=== PATIENT | female | born 1985 | race Caucasian/White ===

== ENCOUNTER 2018-01-28 18:49 | Inpatient (IN) | END 2018-07-12 11:59 | disposition other institution (70) | DRG 130 | DX: J96.11 Chronic respiratory failure with hypoxia (principal); G93.5 Compression of brain; G93.1 Anoxic brain damage, not elsewhere classified; E23.2 Diabetes insipidus; R53.2 Functional quadriplegia; A04.72 Enterocolitis due to Clostridium difficile, not specified as recurrent; D68.59 Other primary thrombophilia; I95.9 Hypotension, unspecified; R13.10 Dysphagia, unspecified; Z93.0 Tracheostomy status; D64.9 Anemia, unspecified; S06.5X9D Traumatic subdural hemorrhage with loss of consciousness of unspecified duration, subsequent encounter; S06.6X9D Traumatic subarachnoid hemorrhage with loss of consciousness of unspecified duration, subsequent encounter; V89.2XXD Person injured in unspecified motor-vehicle accident, traffic, subsequent encounter; B96.5 Pseudomonas (aeruginosa) (mallei) (pseudomallei) as the cause of diseases classified elsewhere; G40.909 Epilepsy, unspecified, not intractable, without status epilepticus; G47.419 Narcolepsy without cataplexy; G91.0 Communicating hydrocephalus; G93.89 Other specified disorders of brain; J96.02 Acute respiratory failure with hypercapnia; S02.11 Fracture of occiput; Z93.1 Gastrostomy status; Z99.11 Dependence on respirator [ventilator] status; R00.1 Bradycardia, unspecified; S01.551A Open bite of lip, initial encounter; X58.XXXA Exposure to other specified factors, initial encounter; Y93.89 Activity, other specified; Y92.230 Patient room in hospital as the place of occurrence of the external cause; R21 Rash and other nonspecific skin eruption ==

== ENCOUNTER → 2018-02-20 | Outpatient (CLI) | payer MEDICAID | END | disposition home or self-care (01) | LOC: RAD 13:22 | PROVIDERS: ATTEND Internal Medicine | DX: I62.00 Nontraumatic subdural hemorrhage, unspecified (principal); G93.89 Other specified disorders of brain | CPT/HCPCS: 70450 ==

== ENCOUNTER 2018-04-26 23:09 | Emergency (ER) | payer MEDICAID ==
[~2018-04-26] VITALS: Ht 162.6 cm; Wt 56.2 kg
--- NOTE | 2018-04-26 23:03 | NUR ---
Pt transferred to ER with mechanical design drafter, AUTOMOTIVE PORTER and RT at bedside. No distress noted.
[2018-04-26] MEDS ORDERED: IV NORMAL SALINE 1000 ML BAG IV ONE (23:15)
--- NOTE | 2018-04-26 23:15 | NUR ---
Pt placed on [place] vent with the following settings of SIMV-14, Vt-450, PS-10, PEEP+5, FIO2-30%. Pt trached with Narda#6 DCT trach, which is in the place and secure. No s/s of respiratory distress noted. Airway care done, pt responded to physical stimuli. Pt has gauze between her lips. Resus. bag and back up trach at bedside. Vent and alarms checked and reset.
[2018-04-26] MEDS ORDERED: ATROPINE SULFATE 1 MG/10 ML DISP.SYRIN ONE (23:25)
--- NOTE | 2018-04-26 23:29 | NUR ---
PT BIB STAFF MEMBERS FROM [facility]. PT IS NON-VERBAL, VENT DEPENDENT, WHICH IS PT'S BASELINE. PER HEDY GARRIDO, PT IS BRADYCARDIC, AND HYPOTHERMIC. UPON ASSESSMENT, PT BRADYCARDIC AT 42 BPM, AND HYPOTHERMIC AT 96.4. SEPTIC WORKUP INITIATED PER PROTOCOL.
[2018-04-26] MEDS ORDERED: ATROPINE SULFATE 1 MG/10 ML DISP.SYRIN IV ONE (23:30)
[2018-04-26 23:32] LABS: BASOPHILS % (AUTO) 0.6 % (0.0-2.0); EOSINOPHILS # (AUTO) 0.2 K/uL (0.0-0.7); EOSINOPHILS % (AUTO) 3.7 % (0.0-7.0); HEMATOCRIT 28.6 % (31.2-41.9); HEMOGLOBIN 9.8 g/dL (10.9-14.3); LYMPHOCYTES # (AUTO) 1.6 K/uL (20.0-40.0); LYMPHOCYTES % (AUTO) 30.5 % (20.5-51.5); MEAN CORPUSCULAR HGB CONC 34 g/dL (32.3-35.6); MONOCYTES # (AUTO) 0.4 K/uL (2.0-10.0); MONOCYTES % (AUTO) 7.1 % (0.0-11.0); NEUTROPHILS % (AUTO) 58.1 % (38.5-71.5); PLATELET COUNT (AUTO) 164 K/uL (179-408); RED BLOOD CELL COUNT(AUTO) 3.15 MIL/uL (3.63-4.92); WHITE BLOOD COUNT (AUTO) 5.2 K/uL (3.8-11.8)
[2018-04-26 23:44] LABS: CARBON DIOXIDE 26 mmol/L (21-32); CHLORIDE 106 mmol/L (98-107); CREATININE 0.3 mg/dL (0.6-1.3); GLUCOSE 92 mg/dL (74-106); POTASSIUM 3.9 mmol/L (3.5-5.1); UREA NITROGEN, BLOOD 20 mg/dL (7-18)
[2018-04-26] MEDS ORDERED: PIPERACILLIN SODIUM/TAZOBACTAM 3.375 G in IV DEXTROSE 5% 50 ML IV ONE (23:45)
[2018-04-26] MEDS ORDERED: VANCOMYCIN IV 1,000 MG in IV DEXTROSE 5% 250 ML IV ONE (23:45)
[2018-04-26] MEDS ORDERED: PIPERACILLIN/TAZOBACTAM/D5W 50 ML IV ONE (23:53)
[2018-04-26 23:56] LABS: ALANINE AMINOTRANSFERASE 59 U/L (14-59); ALKALINE PHOSPHATASE 80 U/L (50-136); ASPARTATE AMINOTRANSFERASE 22 U/L (15-37); BILIRUBIN,DIRECT 0.1 mg/dL (0.0-0.2); BILIRUBIN,TOTAL 0.3 mg/dL (0.2-1.0); TOTAL PROTEIN, SERUM 6.6 g/dL (6.4-8.2)
[2018-04-26 23:58] LABS: *BILIRUBIN,URIN NEGATIVE (NEGATIVE); *BLOOD, URINE NEGATIVE (NEGATIVE); *CLARITY,URINE CLEAR (CLEAR); *COLOR,URINE YELLOW (YELLOW); *KETONES,URINE NEGATIVE (NEGATIVE); *PROTEIN,URINE NEGATIVE (NEGATIVE); *UROBILINOGEN,URINE 0.2 E.U./dl (NORMAL); LEUKOCYTE ESTERASE ,URINE NEGATIVE (NEGATIVE); NITRITE, URINE NEGATIVE (NEGATIVE); UGLUCOSE NEGATIVE (NEGATIVE)
[2018-04-26] MEDS ORDERED: NOREPINEPHRINE BITARTRATE 4 MG/4 ML VIAL IV ONE (23:59)
[2018-04-27] MEDS ORDERED: NOREPINEPHRINE BITARTRATE 8 MG in IV DEXTROSE 5% 500 ML IV ONE ×2
[2018-04-27 00:11] LABS: RBC,URINE NONE SEEN /HPF (0-3); WBC,URINE 0-3 /HPF (0-3)
--- NOTE | 2018-04-27 00:11 | NUR ---
ER SPEAKING W/ ATTENDING MD, DR. BELL.
--- NOTE | 2018-04-27 00:11 | NUR ---
PER ATTENDING MD, DR. BELL, THIS IS PT'S BASELINE. PER ER MD, DR. RIVAS'S ORDER, LEVOPHED TURNED OFF. LEVOPHED INFUSION VIA 20 G L FOREARM D/C'ED.
[2018-04-27 00:12] LABS: BACTERIA,URINE NONE SEEN /HPF (NONE SEEN); SQUAMOUS EPITHELIAL CELL,UR FEW /HPF (NONE SEEN); URINE AMORPHOUS PHOSPHATES FEW /HPF
--- NOTE | 2018-04-27 00:13 | NUR ---
PER ER MD'S ORDERS, ALL IV MEDICATIONS (ZOSYN, VANCOMYCIN, LEVOPHED) ALL D/C.
--- NOTE | 2018-04-27 00:14 | NUR ---
PER DR. BELL AND DR. RIVAS, PT WILL BE D/C BACK TO [facility].
--- NOTE | 2018-04-27 00:18 | NUR ---
CONTACTED HEDY GARRIDO, FROM [facility] TO INFORM PT WILL BE TRANSFERRED BACK TO [facility] PER DR. BELL AND DR. RIVAS'S ORDERS.
--- NOTE | 2018-04-27 00:43 | NUR ---
20 G L FOREARM & 20 G R FOREARM REMOVED PRIOR TO TRANSFER BACK TO [facility]. PT TRANS TO [facility] BY HEDY GARRIDO, A STAFF SOLE FILLER AND RT ON VENT. VSS. ALL BELONGINGS W/ PT.
--- NOTE | 2018-04-27 00:44 | NUR ---
Patient discharged to [facility] in stable conditon. Written and verbal after care instructions given. Patient verbalizes understanding of instructions.
[2018-04-27 00:45] VITALS: BP 111/64
== END 2018-04-27 00:46 | disposition home or self-care (01) ==
LOC: ER 23:12
DX: A41.9 Sepsis, unspecified organism (principal); R00.1 Bradycardia, unspecified; I95.9 Hypotension, unspecified
CPT/HCPCS: 36415; 70030-TC; 71045; 83605; 85025; 85730; 87040; 87086; 93005; A4663; J0461; J2543; J3490; J7030; J7060

== ENCOUNTER 2018-07-13 | Inpatient (IN) | payer MEDICAID ==
[~2018-07-13] VITALS: Ht 162.6 cm; Wt 61.2 kg
[~2018-07-13] MED LIST: ACET-2154 GT; ALBU2.5V38 IH; BACL10TA GT; BISA-79 RC; CHOL10002 GT; DEXT15DR6 EACHEYE; FOLI1TAB16 GT; HEPA100D33 SQ; HYDR1SOL MC; IPRA0.2S48 IH; LACT1CAP69 GT; LEVE500T20 GT; LORA0.5T48 GT; MENT113O TOP; OMEP20TA5 GT; THIA100T13 GT; VITS42.53 TP; ZINC57OI3 TP
[2018-07-14] MEDS: COD LIVER OIL/ZINC OXIDE OINT 113 GM TUBE TP SCH ×2 (08:30→20:48)
[2018-07-14] MEDS: BACLOFEN 10 MG TABLET GT SCH ×2 (08:30→20:47)
[2018-07-14] MEDS: Z GUARD REMEDY PASTE 57 GM TUBE TOP SCH ×2 (08:30→20:48)
[2018-07-14] MEDS: VITAMINS A AND D OINT TP SCH ×2 (08:30→20:49)
[2018-07-14] MEDS: ACIDOPHILUS/BULGARICUS CHEW TAB GT SCH ×2 (08:30→20:46)
[2018-07-14] MEDS: LEVETIRACETAM 500 MG/5 ML LIQUID UDC GT SCH ×2 (08:30→20:47)
[2018-07-14] MEDS: DESMOPRESSIN 0.1 MG TABLET GT SCH (08:30)
[2018-07-14] MEDS: HEPARIN SODIUM,PORCINE 5,000 UNITS/ML VIAL SQ SCH ×2 (08:30→20:52)
[2018-07-14] MEDS: HYDROGEN PEROXIDE 3% 118 ML BOTTLE TP SCH ×2 (08:30→20:49)
[2018-07-14] MEDS: KETOCONAZOLE 2% SHAMPOO 120 ML BOTTLE TP SCH (08:30)
[2018-07-14] MEDS ORDERED: POLYVINYL ALCOHOL OPHT DROPS 15 ML BOTTLE EACHEYE PRN (09:15)
[2018-07-14] MEDS ORDERED: HYDROGEN PEROXIDE 3% 118 ML BOTTLE TP PRN (09:15)
[2018-07-14] MEDS ORDERED: IPRATROPIUM BROMIDE 0.5 MG/2.5 ML NEBU NEB PRN (09:15)
[2018-07-14] MEDS ORDERED: ACETAMINOPHEN 650 MG/20 ML UDC- SA PATIENTS-PAIN ONLY GT PRN (09:15)
[2018-07-14] MEDS ORDERED: ALBUTEROL SULFATE 2.5 MG/ 0.5 ML NEBU NEB PRN (09:15)
[2018-07-14 14:12] VITALS: BP 107/57
[2018-07-14] MEDS: THIAMINE HCL 100 MG TABLET GT SCH (20:48)
[2018-07-14] MEDS: CHOLECALCIFEROL 1,000 UNIT TABLET GT SCH (20:48)
[2018-07-14] MEDS: FOLIC ACID 1 MG TABLET GT SCH (20:53)
[2018-07-14 21:16] VITALS: BP 96/51
[2018-07-15] MEDS: OMEPRAZOLE 20 MG CAPSULE.DR GT SCH (06:06)
[2018-07-15] MEDS: VITAL AF 1.2 1,000 ML LIQUID GT PRN (06:58)
[2018-07-15] MEDS: DESMOPRESSIN 0.1 MG TABLET GT SCH (08:51)
[2018-07-15] MEDS: ACIDOPHILUS/BULGARICUS CHEW TAB GT SCH ×2 (08:52→20:50)
[2018-07-15] MEDS: VITAMINS A AND D OINT TP SCH ×2 (08:53→20:53)
[2018-07-15] MEDS: COD LIVER OIL/ZINC OXIDE OINT 113 GM TUBE TP SCH ×2 (08:53→20:52)
[2018-07-15] MEDS: Z GUARD REMEDY PASTE 57 GM TUBE TOP SCH ×2 (08:53→20:52)
[2018-07-15] MEDS: HYDROGEN PEROXIDE 3% 118 ML BOTTLE TP SCH ×2 (08:53→20:53)
[2018-07-15] MEDS: BACLOFEN 10 MG TABLET GT SCH ×2 (08:53→20:50)
[2018-07-15] MEDS: LEVETIRACETAM 500 MG/5 ML LIQUID UDC GT SCH ×2 (08:53→20:50)
[2018-07-15] MEDS: HEPARIN SODIUM,PORCINE 5,000 UNITS/ML VIAL SQ SCH ×2 (08:54→21:57)
[2018-07-15 11:11] VITALS: BP 101/59
[2018-07-15 20:48] VITALS: BP 100/44
[2018-07-15] MEDS: FOLIC ACID 1 MG TABLET GT SCH (20:50)
[2018-07-15] MEDS: THIAMINE HCL 100 MG TABLET GT SCH (20:51)
[2018-07-15] MEDS: CHOLECALCIFEROL 1,000 UNIT TABLET GT SCH (20:51)
[2018-07-16] MEDS: VITAL AF 1.2 1,000 ML LIQUID GT PRN (01:08)
[2018-07-16] MEDS: OMEPRAZOLE 20 MG CAPSULE.DR GT SCH (05:44)
[2018-07-16] MEDS: DESMOPRESSIN 0.1 MG TABLET GT SCH (08:39)
[2018-07-16] MEDS: LEVETIRACETAM 500 MG/5 ML LIQUID UDC GT SCH ×2 (08:39→20:31)
[2018-07-16] MEDS: ACIDOPHILUS/BULGARICUS CHEW TAB GT SCH ×2 (08:39→20:31)
[2018-07-16] MEDS: COD LIVER OIL/ZINC OXIDE OINT 113 GM TUBE TP SCH ×2 (08:40→20:32)
[2018-07-16] MEDS: Z GUARD REMEDY PASTE 57 GM TUBE TOP SCH ×2 (08:40→20:32)
[2018-07-16] MEDS: HEPARIN SODIUM,PORCINE 5,000 UNITS/ML VIAL SQ SCH ×2 (08:40→20:32)
[2018-07-16] MEDS: BACLOFEN 10 MG TABLET GT SCH ×2 (08:40→20:31)
[2018-07-16] MEDS: HYDROGEN PEROXIDE 3% 118 ML BOTTLE TP SCH ×2 (08:41→20:33)
[2018-07-16] MEDS: VITAMINS A AND D OINT TP SCH ×2 (08:41→20:33)
[2018-07-16 11:09] VITALS: BP 110/54
[2018-07-16 20:11] VITALS: BP 106/61
[2018-07-16] MEDS: FOLIC ACID 1 MG TABLET GT SCH (20:31)
[2018-07-16] MEDS: THIAMINE HCL 100 MG TABLET GT SCH (20:31)
[2018-07-16] MEDS: CHOLECALCIFEROL 1,000 UNIT TABLET GT SCH (20:31)
[2018-07-17] MEDS: VITAL AF 1.2 1,000 ML LIQUID GT PRN ×2 (00:34→19:52)
[2018-07-17] MEDS: OMEPRAZOLE 20 MG CAPSULE.DR GT SCH (05:43)
[2018-07-17 08:00] VITALS: BP 124/55
[2018-07-17] MEDS: ACIDOPHILUS/BULGARICUS CHEW TAB GT SCH ×2 (08:29→20:06)
[2018-07-17] MEDS: LEVETIRACETAM 500 MG/5 ML LIQUID UDC GT SCH ×2 (08:29→20:06)
[2018-07-17] MEDS: DESMOPRESSIN 0.1 MG TABLET GT SCH (08:29)
[2018-07-17] MEDS: BACLOFEN 10 MG TABLET GT SCH ×2 (08:30→20:06)
[2018-07-17] MEDS: COD LIVER OIL/ZINC OXIDE OINT 113 GM TUBE TP SCH ×2 (08:36→20:06)
[2018-07-17] MEDS: Z GUARD REMEDY PASTE 57 GM TUBE TOP SCH ×2 (08:36→20:06)
[2018-07-17] MEDS: HYDROGEN PEROXIDE 3% 118 ML BOTTLE TP SCH ×2 (08:36→20:06)
[2018-07-17] MEDS: HEPARIN SODIUM,PORCINE 5,000 UNITS/ML VIAL SQ SCH ×2 (08:36→21:40)
[2018-07-17] MEDS: VITAMINS A AND D OINT TP SCH ×2 (08:37→20:06)
[2018-07-17] MEDS: KETOCONAZOLE 2% SHAMPOO 120 ML BOTTLE TP SCH (08:37)
[2018-07-17] MEDS: FOLIC ACID 1 MG TABLET GT SCH (20:06)
[2018-07-17] MEDS: THIAMINE HCL 100 MG TABLET GT SCH (20:06)
[2018-07-17] MEDS: CHOLECALCIFEROL 1,000 UNIT TABLET GT SCH (20:06)
[2018-07-17 20:39] VITALS: BP 100/57
[2018-07-18] MEDS: OMEPRAZOLE 20 MG CAPSULE.DR GT SCH (05:42)
[2018-07-18 08:00] VITALS: BP 104/57
[2018-07-18] MEDS: HEPARIN SODIUM,PORCINE 5,000 UNITS/ML VIAL SQ SCH ×2 (09:16→21:41)
[2018-07-18] MEDS: DESMOPRESSIN 0.1 MG TABLET GT SCH (09:33)
[2018-07-18] MEDS: ACIDOPHILUS/BULGARICUS CHEW TAB GT SCH ×2 (09:34→21:37)
[2018-07-18] MEDS: COD LIVER OIL/ZINC OXIDE OINT 113 GM TUBE TP SCH ×2 (09:35→21:41)
[2018-07-18] MEDS: VITAMINS A AND D OINT TP SCH ×2 (09:35→21:41)
[2018-07-18] MEDS: Z GUARD REMEDY PASTE 57 GM TUBE TOP SCH ×2 (09:35→21:41)
[2018-07-18] MEDS: BACLOFEN 10 MG TABLET GT SCH ×2 (09:35→21:38)
[2018-07-18] MEDS: LEVETIRACETAM 500 MG/5 ML LIQUID UDC GT SCH ×2 (09:35→21:37)
[2018-07-18] MEDS: HYDROGEN PEROXIDE 3% 118 ML BOTTLE TP SCH ×2 (09:35→21:41)
[2018-07-18] MEDS: VITAL AF 1.2 1,000 ML LIQUID GT PRN (16:21)
[2018-07-18 20:37] VITALS: BP 108/63
[2018-07-18] MEDS: FOLIC ACID 1 MG TABLET GT SCH (21:37)
[2018-07-18] MEDS: THIAMINE HCL 100 MG TABLET GT SCH (21:38)
[2018-07-18] MEDS: CHOLECALCIFEROL 1,000 UNIT TABLET GT SCH (21:38)
[2018-07-19] MEDS: OMEPRAZOLE 20 MG CAPSULE.DR GT SCH (05:21)
[2018-07-19] MEDS: VITAL AF 1.2 1,000 ML LIQUID GT PRN (05:50)
[2018-07-19] MEDS: LEVETIRACETAM 500 MG/5 ML LIQUID UDC GT SCH ×2 (09:12→21:00)
[2018-07-19] MEDS: DESMOPRESSIN 0.1 MG TABLET GT SCH (09:12)
[2018-07-19] MEDS: ACIDOPHILUS/BULGARICUS CHEW TAB GT SCH ×2 (09:12→21:00)
[2018-07-19] MEDS: HEPARIN SODIUM,PORCINE 5,000 UNITS/ML VIAL SQ SCH ×2 (09:13→21:00)
[2018-07-19] MEDS: BACLOFEN 10 MG TABLET GT SCH ×2 (09:13→21:00)
[2018-07-19 09:15] VITALS: BP 102/55
[2018-07-19] MEDS: COD LIVER OIL/ZINC OXIDE OINT 113 GM TUBE TP SCH ×2 (09:15→21:00)
[2018-07-19] MEDS: Z GUARD REMEDY PASTE 57 GM TUBE TOP SCH ×2 (09:15→21:00)
[2018-07-19] MEDS: VITAMINS A AND D OINT TP SCH ×2 (09:15→21:00)
[2018-07-19] MEDS: HYDROGEN PEROXIDE 3% 118 ML BOTTLE TP SCH ×2 (09:15→21:00)
[2018-07-19] MEDS: FOLIC ACID 1 MG TABLET GT SCH (21:00)
[2018-07-19] MEDS: CHOLECALCIFEROL 1,000 UNIT TABLET GT SCH (21:00)
[2018-07-19] MEDS: THIAMINE HCL 100 MG TABLET GT SCH (21:00)
[2018-07-19 21:19] VITALS: BP 96/50
[2018-07-20] MEDS: OMEPRAZOLE 20 MG CAPSULE.DR GT SCH (06:48)
[2018-07-20] MEDS: DESMOPRESSIN 0.1 MG TABLET GT SCH (08:49)
[2018-07-20] MEDS: BACLOFEN 10 MG TABLET GT SCH ×2 (08:49→20:31)
[2018-07-20] MEDS: LEVETIRACETAM 500 MG/5 ML LIQUID UDC GT SCH ×2 (08:49→20:31)
[2018-07-20] MEDS: ACIDOPHILUS/BULGARICUS CHEW TAB GT SCH ×2 (08:49→20:30)
[2018-07-20] MEDS: COD LIVER OIL/ZINC OXIDE OINT 113 GM TUBE TP SCH ×2 (08:50→20:33)
[2018-07-20] MEDS: HYDROGEN PEROXIDE 3% 118 ML BOTTLE TP SCH ×2 (08:50→20:33)
[2018-07-20] MEDS: VITAMINS A AND D OINT TP SCH ×2 (08:50→20:34)
[2018-07-20] MEDS: Z GUARD REMEDY PASTE 57 GM TUBE TOP SCH ×2 (08:50→20:33)
[2018-07-20] MEDS: HEPARIN SODIUM,PORCINE 5,000 UNITS/ML VIAL SQ SCH ×2 (08:51→20:33)
[2018-07-20 11:20] VITALS: BP 115/58
[2018-07-20 19:50] VITALS: BP 106/51
[2018-07-20] MEDS: THIAMINE HCL 100 MG TABLET GT SCH (20:31)
[2018-07-20] MEDS: FOLIC ACID 1 MG TABLET GT SCH (20:31)
[2018-07-20] MEDS: CHOLECALCIFEROL 1,000 UNIT TABLET GT SCH (20:32)
[2018-07-21] MEDS: VITAL AF 1.2 1,000 ML LIQUID GT PRN ×2 (00:35→21:00)
[2018-07-21] MEDS: OMEPRAZOLE 20 MG CAPSULE.DR GT SCH (05:28)
[2018-07-21] MEDS: DESMOPRESSIN 0.1 MG TABLET GT SCH (08:42)
[2018-07-21] MEDS: ACIDOPHILUS/BULGARICUS CHEW TAB GT SCH ×2 (08:43→20:48)
[2018-07-21] MEDS: LEVETIRACETAM 500 MG/5 ML LIQUID UDC GT SCH ×2 (08:44→20:50)
[2018-07-21] MEDS: Z GUARD REMEDY PASTE 57 GM TUBE TOP SCH ×2 (08:44→20:53)
[2018-07-21] MEDS: HEPARIN SODIUM,PORCINE 5,000 UNITS/ML VIAL SQ SCH ×2 (08:44→20:53)
[2018-07-21] MEDS: BACLOFEN 10 MG TABLET GT SCH ×2 (08:44→20:50)
[2018-07-21] MEDS: HYDROGEN PEROXIDE 3% 118 ML BOTTLE TP SCH ×2 (08:45→20:53)
[2018-07-21] MEDS: COD LIVER OIL/ZINC OXIDE OINT 113 GM TUBE TP SCH ×2 (08:45→20:53)
[2018-07-21] MEDS: VITAMINS A AND D OINT TP SCH ×2 (08:45→20:53)
[2018-07-21] MEDS: KETOCONAZOLE 2% SHAMPOO 120 ML BOTTLE TP SCH (08:45)
[2018-07-21 09:03] VITALS: BP 95/63
[2018-07-21 20:32] VITALS: BP 99/56
[2018-07-21] MEDS: FOLIC ACID 1 MG TABLET GT SCH (20:49)
[2018-07-21] MEDS: THIAMINE HCL 100 MG TABLET GT SCH (20:50)
[2018-07-21] MEDS: CHOLECALCIFEROL 1,000 UNIT TABLET GT SCH (20:51)
[2018-07-22] MEDS: OMEPRAZOLE 20 MG CAPSULE.DR GT SCH (05:24)
[2018-07-22 08:56] VITALS: BP 102/60
[2018-07-22] MEDS: DESMOPRESSIN 0.1 MG TABLET GT SCH (08:58)
[2018-07-22] MEDS: BACLOFEN 10 MG TABLET GT SCH ×2 (08:58→20:31)
[2018-07-22] MEDS: ACIDOPHILUS/BULGARICUS CHEW TAB GT SCH ×2 (08:58→20:29)
[2018-07-22] MEDS: LEVETIRACETAM 500 MG/5 ML LIQUID UDC GT SCH ×2 (08:58→20:31)
[2018-07-22] MEDS: Z GUARD REMEDY PASTE 57 GM TUBE TOP SCH ×2 (08:59→20:34)
[2018-07-22] MEDS: COD LIVER OIL/ZINC OXIDE OINT 113 GM TUBE TP SCH ×2 (08:59→20:34)
[2018-07-22] MEDS: HYDROGEN PEROXIDE 3% 118 ML BOTTLE TP SCH ×2 (08:59→20:35)
[2018-07-22] MEDS: HEPARIN SODIUM,PORCINE 5,000 UNITS/ML VIAL SQ SCH ×2 (08:59→20:34)
[2018-07-22] MEDS: VITAMINS A AND D OINT TP SCH ×2 (08:59→20:35)
[2018-07-22] MEDS: VITAL AF 1.2 1,000 ML LIQUID GT PRN (16:47)
[2018-07-22 20:00] VITALS: BP 95/51
[2018-07-22] MEDS: FOLIC ACID 1 MG TABLET GT SCH (20:29)
[2018-07-22] MEDS: CHOLECALCIFEROL 1,000 UNIT TABLET GT SCH (20:31)
[2018-07-22] MEDS: THIAMINE HCL 100 MG TABLET GT SCH (20:31)
[2018-07-23] MEDS: OMEPRAZOLE 20 MG CAPSULE.DR GT SCH (05:23)
[2018-07-23 08:01] VITALS: BP 105/60
[2018-07-23] MEDS: DESMOPRESSIN 0.1 MG TABLET GT SCH (08:17)
[2018-07-23] MEDS: ACIDOPHILUS/BULGARICUS CHEW TAB GT SCH ×2 (08:18→21:10)
[2018-07-23] MEDS: LEVETIRACETAM 500 MG/5 ML LIQUID UDC GT SCH ×2 (08:18→21:10)
[2018-07-23] MEDS: BACLOFEN 10 MG TABLET GT SCH ×2 (08:19→21:10)
[2018-07-23] MEDS: HEPARIN SODIUM,PORCINE 5,000 UNITS/ML VIAL SQ SCH ×2 (08:20→21:21)
[2018-07-23] MEDS: Z GUARD REMEDY PASTE 57 GM TUBE TOP SCH ×2 (08:21→21:11)
[2018-07-23] MEDS: COD LIVER OIL/ZINC OXIDE OINT 113 GM TUBE TP SCH ×2 (08:23→21:11)
[2018-07-23] MEDS: HYDROGEN PEROXIDE 3% 118 ML BOTTLE TP SCH ×2 (08:23→21:11)
[2018-07-23] MEDS: VITAMINS A AND D OINT TP SCH ×2 (08:23→21:11)
[2018-07-23 20:00] VITALS: BP 91/46
[2018-07-23] MEDS: THIAMINE HCL 100 MG TABLET GT SCH (21:10)
[2018-07-23] MEDS: FOLIC ACID 1 MG TABLET GT SCH (21:10)
[2018-07-23] MEDS: CHOLECALCIFEROL 1,000 UNIT TABLET GT SCH (21:10)
[2018-07-24] MEDS: VITAL AF 1.2 1,000 ML LIQUID GT PRN ×2 (03:42→20:30)
[2018-07-24] MEDS: OMEPRAZOLE 20 MG CAPSULE.DR GT SCH (05:39)
[2018-07-24 08:01] VITALS: BP 107/68
[2018-07-24] MEDS: ACIDOPHILUS/BULGARICUS CHEW TAB GT SCH ×2 (09:42→20:19)
[2018-07-24] MEDS: LEVETIRACETAM 500 MG/5 ML LIQUID UDC GT SCH ×2 (09:42→20:19)
[2018-07-24] MEDS: DESMOPRESSIN 0.1 MG TABLET GT SCH (09:42)
[2018-07-24] MEDS: BACLOFEN 10 MG TABLET GT SCH ×2 (09:42→20:20)
[2018-07-24] MEDS: Z GUARD REMEDY PASTE 57 GM TUBE TOP SCH ×2 (09:42→20:21)
[2018-07-24] MEDS: COD LIVER OIL/ZINC OXIDE OINT 113 GM TUBE TP SCH ×2 (09:43→20:21)
[2018-07-24] MEDS: KETOCONAZOLE 2% SHAMPOO 120 ML BOTTLE TP SCH (09:43)
[2018-07-24] MEDS: HYDROGEN PEROXIDE 3% 118 ML BOTTLE TP SCH ×2 (09:43→20:21)
[2018-07-24] MEDS: VITAMINS A AND D OINT TP SCH ×2 (09:43→20:21)
[2018-07-24] MEDS: HEPARIN SODIUM,PORCINE 5,000 UNITS/ML VIAL SQ SCH ×2 (09:48→20:21)
[2018-07-24 20:00] VITALS: BP 105/49
[2018-07-24] MEDS: FOLIC ACID 1 MG TABLET GT SCH (20:19)
[2018-07-24] MEDS: THIAMINE HCL 100 MG TABLET GT SCH (20:20)
[2018-07-24] MEDS: CHOLECALCIFEROL 1,000 UNIT TABLET GT SCH (20:20)
[2018-07-25] MEDS: OMEPRAZOLE 20 MG CAPSULE.DR GT SCH (06:22)
[2018-07-25 08:00] VITALS: BP 106/58
[2018-07-25] MEDS: DESMOPRESSIN 0.1 MG TABLET GT SCH (08:56)
[2018-07-25] MEDS: ACIDOPHILUS/BULGARICUS CHEW TAB GT SCH ×2 (08:56→20:51)
[2018-07-25] MEDS: Z GUARD REMEDY PASTE 57 GM TUBE TOP SCH ×2 (08:56→20:52)
[2018-07-25] MEDS: HYDROGEN PEROXIDE 3% 118 ML BOTTLE TP SCH ×2 (08:56→20:52)
[2018-07-25] MEDS: VITAMINS A AND D OINT TP SCH ×2 (08:56→20:52)
[2018-07-25] MEDS: HEPARIN SODIUM,PORCINE 5,000 UNITS/ML VIAL SQ SCH ×2 (08:56→21:00)
[2018-07-25] MEDS: COD LIVER OIL/ZINC OXIDE OINT 113 GM TUBE TP SCH ×2 (08:56→20:52)
[2018-07-25] MEDS: LEVETIRACETAM 500 MG/5 ML LIQUID UDC GT SCH ×2 (08:56→20:51)
[2018-07-25] MEDS: BACLOFEN 20 MG TABLET GT SCH ×2 (14:22→21:04)
[2018-07-25 20:22] VITALS: BP 100/61
[2018-07-25] MEDS: THIAMINE HCL 100 MG TABLET GT SCH (20:51)
[2018-07-25] MEDS: FOLIC ACID 1 MG TABLET GT SCH (20:51)
[2018-07-25] MEDS: CHOLECALCIFEROL 1,000 UNIT TABLET GT SCH (20:51)
[2018-07-26] MEDS: OMEPRAZOLE 20 MG CAPSULE.DR GT SCH (06:50)
[2018-07-26] MEDS: BACLOFEN 20 MG TABLET GT SCH ×3 (06:50→21:24)
[2018-07-26] MEDS: DESMOPRESSIN 0.1 MG TABLET GT SCH (09:10)
[2018-07-26] MEDS: ACIDOPHILUS/BULGARICUS CHEW TAB GT SCH ×2 (09:11→20:23)
[2018-07-26] MEDS: LEVETIRACETAM 500 MG/5 ML LIQUID UDC GT SCH ×2 (09:12→20:24)
[2018-07-26] MEDS: Z GUARD REMEDY PASTE 57 GM TUBE TOP SCH ×2 (09:14→20:28)
[2018-07-26] MEDS: HYDROGEN PEROXIDE 3% 118 ML BOTTLE TP SCH ×2 (09:14→20:28)
[2018-07-26] MEDS: COD LIVER OIL/ZINC OXIDE OINT 113 GM TUBE TP SCH ×2 (09:14→20:28)
[2018-07-26] MEDS: VITAMINS A AND D OINT TP SCH ×2 (09:14→20:28)
[2018-07-26] MEDS: HEPARIN SODIUM,PORCINE 5,000 UNITS/ML VIAL SQ SCH ×2 (09:14→20:27)
[2018-07-26 10:02] VITALS: BP 96/47
[2018-07-26] MEDS: FOLIC ACID 1 MG TABLET GT SCH (20:24)
[2018-07-26 20:26] VITALS: BP 98/44
[2018-07-26] MEDS: THIAMINE HCL 100 MG TABLET GT SCH (20:26)
[2018-07-26] MEDS: CHOLECALCIFEROL 1,000 UNIT TABLET GT SCH (20:26)
[2018-07-27] VITALS (7 sets, daily range): BP systolic 88–108; BP diastolic 43–55
[2018-07-27] MEDS ORDERED: IV NORMAL SALINE 500 ML BAG IV ONE (02:30)
[2018-07-27] MEDS: BACLOFEN 20 MG TABLET GT SCH (05:32)
[2018-07-27] MEDS: OMEPRAZOLE 20 MG CAPSULE.DR GT SCH (05:32)
[2018-07-27] MEDS: VITAL AF 1.2 1,000 ML LIQUID GT PRN (06:34)
[2018-07-27 07:15] LABS: BASOPHILS % (AUTO) 0.7 % (0.0-2.0); EOSINOPHILS # (AUTO) 0.2 K/uL (0.0-0.7); EOSINOPHILS % (AUTO) 3.8 % (0.0-7.0); HEMATOCRIT 24.6 % (31.2-41.9); HEMOGLOBIN 8.7 g/dL (10.9-14.3); LYMPHOCYTES # (AUTO) 1.9 K/uL (20.0-40.0); LYMPHOCYTES % (AUTO) 39.8 % (20.5-51.5); MEAN CORPUSCULAR HEMOGLOBIN 33.7 uug (24.7-32.8); MEAN CORPUSCULAR HGB CONC 35 g/dL (32.3-35.6); MEAN CORPUSCULAR VOLUME 95.5 fL (75.5-95.3); MONOCYTES # (AUTO) 0.4 K/uL (2.0-10.0); MONOCYTES % (AUTO) 7.5 % (0.0-11.0); NEUTROPHILS # (AUTO) 2.3 K/uL (1.8-8.9); NEUTROPHILS % (AUTO) 48.2 % (38.5-71.5); PLATELET COUNT (AUTO) 203 K/uL (179-408); RED BLOOD CELL COUNT(AUTO) 2.58 MIL/uL (3.63-4.92); WHITE BLOOD COUNT (AUTO) 4.7 K/uL (3.8-11.8)
[2018-07-27 07:38] LABS: BILIRUBIN,TOTAL 0.4 mg/dL (0.2-1.0); CREATININE 0.6 mg/dL (0.6-1.3); MAGNESIUM 1.8 mg/dL (1.8-2.4); PHOSPHOROUS 3.8 mg/dL (2.5-4.9); POTASSIUM 3.9 mmol/L (3.5-5.1)
[2018-07-27] MEDS: ACIDOPHILUS/BULGARICUS CHEW TAB GT SCH ×2 (08:46→21:34)
[2018-07-27] MEDS: LEVETIRACETAM 500 MG/5 ML LIQUID UDC GT SCH ×2 (08:46→21:34)
[2018-07-27] MEDS: DESMOPRESSIN 0.1 MG TABLET GT SCH (08:46)
[2018-07-27] MEDS: HYDROGEN PEROXIDE 3% 118 ML BOTTLE TP SCH ×2 (08:48→21:35)
[2018-07-27] MEDS: COD LIVER OIL/ZINC OXIDE OINT 113 GM TUBE TP SCH ×2 (08:48→21:35)
[2018-07-27] MEDS: HEPARIN SODIUM,PORCINE 5,000 UNITS/ML VIAL SQ SCH ×2 (08:48→21:35)
[2018-07-27] MEDS: Z GUARD REMEDY PASTE 57 GM TUBE TOP SCH ×2 (08:48→21:35)
[2018-07-27] MEDS: VITAMINS A AND D OINT TP SCH ×2 (08:48→21:36)
[2018-07-27] MEDS: CHOLECALCIFEROL 1,000 UNIT TABLET GT SCH (21:34)
[2018-07-27] MEDS: FOLIC ACID 1 MG TABLET GT SCH (21:34)
[2018-07-27] MEDS: THIAMINE HCL 100 MG TABLET GT SCH (21:34)
[2018-07-28] MEDS: VITAL AF 1.2 1,000 ML LIQUID GT PRN ×2 (00:13→21:41)
[2018-07-28] MEDS: OMEPRAZOLE 20 MG CAPSULE.DR GT SCH (05:50)
[2018-07-28] MEDS: DESMOPRESSIN 0.1 MG TABLET GT SCH (08:15)
[2018-07-28] MEDS: LEVETIRACETAM 500 MG/5 ML LIQUID UDC GT SCH ×2 (08:15→21:40)
[2018-07-28] MEDS: HEPARIN SODIUM,PORCINE 5,000 UNITS/ML VIAL SQ SCH ×2 (08:15→21:41)
[2018-07-28] MEDS: ACIDOPHILUS/BULGARICUS CHEW TAB GT SCH ×2 (08:15→21:40)
[2018-07-28] MEDS: VITAMINS A AND D OINT TP SCH ×2 (08:17→21:41)
[2018-07-28] MEDS: HYDROGEN PEROXIDE 3% 118 ML BOTTLE TP SCH ×2 (08:17→21:41)
[2018-07-28] MEDS: Z GUARD REMEDY PASTE 57 GM TUBE TOP SCH ×2 (08:17→21:41)
[2018-07-28] MEDS: KETOCONAZOLE 2% SHAMPOO 120 ML BOTTLE TP SCH (08:17)
[2018-07-28] MEDS: COD LIVER OIL/ZINC OXIDE OINT 113 GM TUBE TP SCH ×2 (08:17→21:41)
[2018-07-28 11:25] VITALS: BP 98/40
[2018-07-28] MEDS: BISACODYL 10 MG SUPP.RECT RC PRN (18:12)
[2018-07-28 20:28] VITALS: BP 102/53
[2018-07-28] MEDS: FOLIC ACID 1 MG TABLET GT SCH (21:40)
[2018-07-28] MEDS: CHOLECALCIFEROL 1,000 UNIT TABLET GT SCH (21:40)
[2018-07-28] MEDS: THIAMINE HCL 100 MG TABLET GT SCH (21:40)
[2018-07-29] MEDS: OMEPRAZOLE 20 MG CAPSULE.DR GT SCH (05:51)
[2018-07-29] MEDS: BACLOFEN 20 MG TABLET GT SCH ×3 (05:51→22:11)
[2018-07-29] MEDS: ACIDOPHILUS/BULGARICUS CHEW TAB GT SCH ×2 (08:04→21:24)
[2018-07-29] MEDS: HEPARIN SODIUM,PORCINE 5,000 UNITS/ML VIAL SQ SCH ×2 (08:04→21:31)
[2018-07-29] MEDS: DESMOPRESSIN 0.1 MG TABLET GT SCH (08:04)
[2018-07-29] MEDS: LEVETIRACETAM 500 MG/5 ML LIQUID UDC GT SCH ×2 (08:05→21:25)
[2018-07-29] MEDS: COD LIVER OIL/ZINC OXIDE OINT 113 GM TUBE TP SCH ×2 (08:07→21:31)
[2018-07-29] MEDS: HYDROGEN PEROXIDE 3% 118 ML BOTTLE TP SCH ×2 (08:07→21:31)
[2018-07-29] MEDS: VITAMINS A AND D OINT TP SCH ×2 (08:07→21:31)
[2018-07-29] MEDS: Z GUARD REMEDY PASTE 57 GM TUBE TOP SCH ×2 (08:07→21:31)
[2018-07-29 10:36] VITALS: BP 97/59
[2018-07-29] MEDS: VITAL AF 1.2 1,000 ML LIQUID GT PRN (16:56)
[2018-07-29 20:32] VITALS: BP 95/45
[2018-07-29] MEDS: FOLIC ACID 1 MG TABLET GT SCH (21:24)
[2018-07-29] MEDS: THIAMINE HCL 100 MG TABLET GT SCH (21:26)
[2018-07-29] MEDS: CHOLECALCIFEROL 1,000 UNIT TABLET GT SCH (21:26)
[2018-07-30] MEDS: BACLOFEN 20 MG TABLET GT SCH ×3 (05:28→20:49)
[2018-07-30] MEDS: OMEPRAZOLE 20 MG CAPSULE.DR GT SCH (05:28)
[2018-07-30] MEDS: DESMOPRESSIN 0.1 MG TABLET GT SCH (08:20)
[2018-07-30] MEDS: ACIDOPHILUS/BULGARICUS CHEW TAB GT SCH ×2 (08:20→20:49)
[2018-07-30] MEDS: Z GUARD REMEDY PASTE 57 GM TUBE TOP SCH ×2 (08:21→20:49)
[2018-07-30] MEDS: HYDROGEN PEROXIDE 3% 118 ML BOTTLE TP SCH ×2 (08:21→20:49)
[2018-07-30] MEDS: HEPARIN SODIUM,PORCINE 5,000 UNITS/ML VIAL SQ SCH ×2 (08:21→20:48)
[2018-07-30] MEDS: COD LIVER OIL/ZINC OXIDE OINT 113 GM TUBE TP SCH ×2 (08:21→20:49)
[2018-07-30] MEDS: LEVETIRACETAM 500 MG/5 ML LIQUID UDC GT SCH ×2 (08:21→20:49)
[2018-07-30] MEDS: VITAMINS A AND D OINT TP SCH ×2 (08:21→20:49)
[2018-07-30] MEDS: VITAL AF 1.2 1,000 ML LIQUID GT PRN (09:57)
[2018-07-30 12:48] VITALS: BP 119/57
[2018-07-30 20:35] VITALS: BP 100/50
[2018-07-30] MEDS: FOLIC ACID 1 MG TABLET GT SCH (20:49)
[2018-07-30] MEDS: THIAMINE HCL 100 MG TABLET GT SCH (20:49)
[2018-07-30] MEDS: CHOLECALCIFEROL 1,000 UNIT TABLET GT SCH (20:49)
[2018-07-31] MEDS: OMEPRAZOLE 20 MG CAPSULE.DR GT SCH (06:27)
[2018-07-31] MEDS: BACLOFEN 20 MG TABLET GT SCH ×3 (06:27→21:54)
[2018-07-31] MEDS: VITAL AF 1.2 1,000 ML LIQUID GT PRN (07:09)
[2018-07-31] MEDS: LEVETIRACETAM 500 MG/5 ML LIQUID UDC GT SCH ×2 (08:18→20:50)
[2018-07-31] MEDS: COD LIVER OIL/ZINC OXIDE OINT 113 GM TUBE TP SCH ×2 (08:18→20:50)
[2018-07-31] MEDS: DESMOPRESSIN 0.1 MG TABLET GT SCH (08:18)
[2018-07-31] MEDS: ACIDOPHILUS/BULGARICUS CHEW TAB GT SCH ×2 (08:18→20:50)
[2018-07-31] MEDS: Z GUARD REMEDY PASTE 57 GM TUBE TOP SCH ×2 (08:18→20:50)
[2018-07-31] MEDS: VITAMINS A AND D OINT TP SCH ×2 (08:19→20:50)
[2018-07-31] MEDS: HYDROGEN PEROXIDE 3% 118 ML BOTTLE TP SCH ×2 (08:19→20:50)
[2018-07-31] MEDS: HEPARIN SODIUM,PORCINE 5,000 UNITS/ML VIAL SQ SCH ×2 (08:22→21:53)
[2018-07-31] MEDS: KETOCONAZOLE 2% SHAMPOO 120 ML BOTTLE TP SCH (09:33)
[2018-07-31 10:20] VITALS: BP 106/60
[2018-07-31 20:08] VITALS: BP 100/49
[2018-07-31] MEDS: CHOLECALCIFEROL 1,000 UNIT TABLET GT SCH (20:50)
[2018-07-31] MEDS: THIAMINE HCL 100 MG TABLET GT SCH (20:50)
[2018-07-31] MEDS: FOLIC ACID 1 MG TABLET GT SCH (20:50)
[2018-08-01] MEDS: VITAL AF 1.2 1,000 ML LIQUID GT PRN ×2 (01:32→21:34)
[2018-08-01] MEDS: OMEPRAZOLE 20 MG CAPSULE.DR GT SCH (05:15)
[2018-08-01] MEDS: BACLOFEN 20 MG TABLET GT SCH ×3 (05:15→21:34)
[2018-08-01] MEDS: VITAMINS A AND D OINT TP SCH ×2 (08:21→21:34)
[2018-08-01] MEDS: DESMOPRESSIN 0.1 MG TABLET GT SCH (08:21)
[2018-08-01] MEDS: ACIDOPHILUS/BULGARICUS CHEW TAB GT SCH ×2 (08:21→21:33)
[2018-08-01] MEDS: COD LIVER OIL/ZINC OXIDE OINT 113 GM TUBE TP SCH ×2 (08:21→21:33)
[2018-08-01] MEDS: Z GUARD REMEDY PASTE 57 GM TUBE TOP SCH ×2 (08:21→21:33)
[2018-08-01] MEDS: LEVETIRACETAM 500 MG/5 ML LIQUID UDC GT SCH ×2 (08:21→21:33)
[2018-08-01] MEDS: HYDROGEN PEROXIDE 3% 118 ML BOTTLE TP SCH ×2 (08:21→21:33)
[2018-08-01] MEDS: HEPARIN SODIUM,PORCINE 5,000 UNITS/ML VIAL SQ SCH ×2 (08:21→21:00)
[2018-08-01] MEDS: CHOLECALCIFEROL 1,000 UNIT TABLET GT SCH (21:33)
[2018-08-01] MEDS: FOLIC ACID 1 MG TABLET GT SCH (21:33)
[2018-08-01] MEDS: THIAMINE HCL 100 MG TABLET GT SCH (21:33)
[2018-08-01 22:58] VITALS: BP 99/55
[2018-08-02] MEDS: OMEPRAZOLE 20 MG CAPSULE.DR GT SCH (05:52)
[2018-08-02] MEDS: BACLOFEN 20 MG TABLET GT SCH ×3 (05:52→21:06)
[2018-08-02] MEDS: DESMOPRESSIN 0.1 MG TABLET GT SCH (08:17)
[2018-08-02] MEDS: LEVETIRACETAM 500 MG/5 ML LIQUID UDC GT SCH ×2 (08:17→21:04)
[2018-08-02] MEDS: ACIDOPHILUS/BULGARICUS CHEW TAB GT SCH ×2 (08:17→21:02)
[2018-08-02] MEDS: COD LIVER OIL/ZINC OXIDE OINT 113 GM TUBE TP SCH ×2 (08:18→21:06)
[2018-08-02] MEDS: Z GUARD REMEDY PASTE 57 GM TUBE TOP SCH ×2 (08:18→21:06)
[2018-08-02] MEDS: VITAMINS A AND D OINT TP SCH ×2 (08:18→21:06)
[2018-08-02] MEDS: HYDROGEN PEROXIDE 3% 118 ML BOTTLE TP SCH ×2 (08:18→21:06)
[2018-08-02] MEDS: HEPARIN SODIUM,PORCINE 5,000 UNITS/ML VIAL SQ SCH ×2 (08:18→21:31)
[2018-08-02 09:21] VITALS: BP 96/49
[2018-08-02 20:55] VITALS: BP 98/48
[2018-08-02] MEDS: THIAMINE HCL 100 MG TABLET GT SCH (21:04)
[2018-08-02] MEDS: CHOLECALCIFEROL 1,000 UNIT TABLET GT SCH (21:04)
[2018-08-02] MEDS: FOLIC ACID 1 MG TABLET GT SCH (21:04)
[2018-08-03] MEDS: BACLOFEN 20 MG TABLET GT SCH ×3 (05:08→21:22)
[2018-08-03] MEDS: OMEPRAZOLE 20 MG CAPSULE.DR GT SCH (05:08)
[2018-08-03] MEDS: ACIDOPHILUS/BULGARICUS CHEW TAB GT SCH ×2 (08:55→20:00)
[2018-08-03] MEDS: DESMOPRESSIN 0.1 MG TABLET GT SCH (08:55)
[2018-08-03] MEDS: METHYLPHENIDATE HCL 5 MG TABLET GT SCH (08:55)
[2018-08-03] MEDS: LEVETIRACETAM 500 MG/5 ML LIQUID UDC GT SCH ×2 (08:56→20:00)
[2018-08-03] MEDS: HYDROGEN PEROXIDE 3% 118 ML BOTTLE TP SCH ×2 (08:58→20:00)
[2018-08-03] MEDS: HEPARIN SODIUM,PORCINE 5,000 UNITS/ML VIAL SQ SCH ×2 (08:58→21:21)
[2018-08-03] MEDS: COD LIVER OIL/ZINC OXIDE OINT 113 GM TUBE TP SCH ×2 (08:58→20:00)
[2018-08-03] MEDS: VITAMINS A AND D OINT TP SCH ×2 (08:58→20:00)
[2018-08-03] MEDS: Z GUARD REMEDY PASTE 57 GM TUBE TOP SCH ×2 (08:58→20:00)
[2018-08-03 11:46] VITALS: BP 98/40
[2018-08-03] MEDS: BISACODYL 10 MG SUPP.RECT RC PRN (18:36)
[2018-08-03 20:00] VITALS: BP 105/51
[2018-08-03] MEDS: THIAMINE HCL 100 MG TABLET GT SCH (20:00)
[2018-08-03] MEDS: FOLIC ACID 1 MG TABLET GT SCH (20:00)
[2018-08-03] MEDS: CHOLECALCIFEROL 1,000 UNIT TABLET GT SCH (20:00)
[2018-08-04] MEDS: BACLOFEN 20 MG TABLET GT SCH ×3 (06:17→21:54)
[2018-08-04] MEDS: OMEPRAZOLE 20 MG CAPSULE.DR GT SCH (06:17)
[2018-08-04 08:00] VITALS: BP 97/47
[2018-08-04] MEDS: METHYLPHENIDATE HCL 5 MG TABLET GT SCH (09:31)
[2018-08-04] MEDS: LEVETIRACETAM 500 MG/5 ML LIQUID UDC GT SCH ×2 (09:31→20:09)
[2018-08-04] MEDS: ACIDOPHILUS/BULGARICUS CHEW TAB GT SCH ×2 (09:31→20:09)
[2018-08-04] MEDS: DESMOPRESSIN 0.1 MG TABLET GT SCH (09:31)
[2018-08-04] MEDS: HYDROGEN PEROXIDE 3% 118 ML BOTTLE TP SCH ×2 (09:32→20:11)
[2018-08-04] MEDS: HEPARIN SODIUM,PORCINE 5,000 UNITS/ML VIAL SQ SCH ×2 (09:32→20:12)
[2018-08-04] MEDS: Z GUARD REMEDY PASTE 57 GM TUBE TOP SCH ×2 (09:32→20:11)
[2018-08-04] MEDS: COD LIVER OIL/ZINC OXIDE OINT 113 GM TUBE TP SCH ×2 (09:32→20:11)
[2018-08-04] MEDS: KETOCONAZOLE 2% SHAMPOO 120 ML BOTTLE TP SCH (09:32)
[2018-08-04] MEDS: VITAMINS A AND D OINT TP SCH ×2 (09:32→20:11)
[2018-08-04 20:00] VITALS: BP 95/50
[2018-08-04] MEDS: CHOLECALCIFEROL 1,000 UNIT TABLET GT SCH (20:09)
[2018-08-04] MEDS: FOLIC ACID 1 MG TABLET GT SCH (20:09)
[2018-08-04] MEDS: THIAMINE HCL 100 MG TABLET GT SCH (20:09)
[2018-08-05] MEDS: OMEPRAZOLE 20 MG CAPSULE.DR GT SCH (05:19)
[2018-08-05] MEDS: BACLOFEN 20 MG TABLET GT SCH ×3 (05:19→21:47)
[2018-08-05] MEDS: VITAL AF 1.2 1,000 ML LIQUID GT PRN (05:20)
[2018-08-05 08:00] VITALS: BP 92/48
[2018-08-05] MEDS: LEVETIRACETAM 500 MG/5 ML LIQUID UDC GT SCH ×2 (08:36→20:46)
[2018-08-05] MEDS: METHYLPHENIDATE HCL 5 MG TABLET GT SCH (08:36)
[2018-08-05] MEDS: DESMOPRESSIN 0.1 MG TABLET GT SCH (08:36)
[2018-08-05] MEDS: ACIDOPHILUS/BULGARICUS CHEW TAB GT SCH ×2 (08:36→20:46)
[2018-08-05] MEDS: HEPARIN SODIUM,PORCINE 5,000 UNITS/ML VIAL SQ SCH ×2 (08:37→20:48)
[2018-08-05] MEDS: HYDROGEN PEROXIDE 3% 118 ML BOTTLE TP SCH ×2 (08:37→20:47)
[2018-08-05] MEDS: Z GUARD REMEDY PASTE 57 GM TUBE TOP SCH ×2 (08:37→20:47)
[2018-08-05] MEDS: COD LIVER OIL/ZINC OXIDE OINT 113 GM TUBE TP SCH ×2 (08:37→20:47)
[2018-08-05] MEDS: VITAMINS A AND D OINT TP SCH ×2 (08:37→20:47)
[2018-08-05 20:00] VITALS: BP 94/45
[2018-08-05] MEDS: FOLIC ACID 1 MG TABLET GT SCH (20:46)
[2018-08-05] MEDS: CHOLECALCIFEROL 1,000 UNIT TABLET GT SCH (20:46)
[2018-08-05] MEDS: THIAMINE HCL 100 MG TABLET GT SCH (20:46)
[2018-08-06] MEDS: OMEPRAZOLE 20 MG CAPSULE.DR GT SCH (06:56)
[2018-08-06] MEDS: BACLOFEN 20 MG TABLET GT SCH ×3 (06:56→21:02)
[2018-08-06 08:00] VITALS: BP 98/53
[2018-08-06] MEDS: LEVETIRACETAM 500 MG/5 ML LIQUID UDC GT SCH ×2 (08:14→21:01)
[2018-08-06] MEDS: ACIDOPHILUS/BULGARICUS CHEW TAB GT SCH ×2 (08:14→21:01)
[2018-08-06] MEDS: HEPARIN SODIUM,PORCINE 5,000 UNITS/ML VIAL SQ SCH ×2 (08:14→21:00)
[2018-08-06] MEDS: DESMOPRESSIN 0.1 MG TABLET GT SCH (08:14)
[2018-08-06] MEDS: METHYLPHENIDATE HCL 5 MG TABLET GT SCH (08:14)
[2018-08-06] MEDS: COD LIVER OIL/ZINC OXIDE OINT 113 GM TUBE TP SCH ×2 (08:16→21:02)
[2018-08-06] MEDS: HYDROGEN PEROXIDE 3% 118 ML BOTTLE TP SCH ×2 (08:16→21:02)
[2018-08-06] MEDS: VITAMINS A AND D OINT TP SCH ×2 (08:16→21:02)
[2018-08-06] MEDS: Z GUARD REMEDY PASTE 57 GM TUBE TOP SCH ×2 (08:16→21:02)
[2018-08-06 08:20] VITALS: BP 98/53
[2018-08-06] MEDS: VITAL AF 1.2 1,000 ML LIQUID GT PRN (18:26)
[2018-08-06 20:00] VITALS: BP 105/61
[2018-08-06] MEDS: FOLIC ACID 1 MG TABLET GT SCH (21:01)
[2018-08-06] MEDS: CHOLECALCIFEROL 1,000 UNIT TABLET GT SCH (21:02)
[2018-08-06] MEDS: THIAMINE HCL 100 MG TABLET GT SCH (21:02)
[2018-08-07] MEDS: BACLOFEN 20 MG TABLET GT SCH ×3 (05:47→22:20)
[2018-08-07] MEDS: OMEPRAZOLE 20 MG CAPSULE.DR GT SCH (05:47)
[2018-08-07] MEDS: BISACODYL 10 MG SUPP.RECT RC PRN (07:02)
[2018-08-07 07:55] VITALS: BP 116/54
[2018-08-07] MEDS: DESMOPRESSIN 0.1 MG TABLET GT SCH (08:11)
[2018-08-07] MEDS: LEVETIRACETAM 500 MG/5 ML LIQUID UDC GT SCH ×2 (08:11→20:50)
[2018-08-07] MEDS: ACIDOPHILUS/BULGARICUS CHEW TAB GT SCH ×2 (08:11→20:49)
[2018-08-07] MEDS: METHYLPHENIDATE HCL 5 MG TABLET GT SCH (08:11)
[2018-08-07] MEDS: Z GUARD REMEDY PASTE 57 GM TUBE TOP SCH ×2 (08:12→20:55)
[2018-08-07] MEDS: KETOCONAZOLE 2% SHAMPOO 120 ML BOTTLE TP SCH (08:12)
[2018-08-07] MEDS: VITAMINS A AND D OINT TP SCH ×2 (08:12→20:56)
[2018-08-07] MEDS: HYDROGEN PEROXIDE 3% 118 ML BOTTLE TP SCH ×2 (08:12→20:56)
[2018-08-07] MEDS: COD LIVER OIL/ZINC OXIDE OINT 113 GM TUBE TP SCH ×2 (08:12→20:55)
[2018-08-07] MEDS: HEPARIN SODIUM,PORCINE 5,000 UNITS/ML VIAL SQ SCH ×2 (08:12→20:55)
[2018-08-07] MEDS: VITAL AF 1.2 1,000 ML LIQUID GT PRN (08:13)
[2018-08-07 11:34] VITALS: BP 116/54
[2018-08-07 20:11] VITALS: BP 100/48
[2018-08-07] MEDS: FOLIC ACID 1 MG TABLET GT SCH (20:49)
[2018-08-07] MEDS: CHOLECALCIFEROL 1,000 UNIT TABLET GT SCH (20:51)
[2018-08-07] MEDS: THIAMINE HCL 100 MG TABLET GT SCH (20:51)
[2018-08-08] MEDS: OMEPRAZOLE 20 MG CAPSULE.DR GT SCH (06:09)
[2018-08-08] MEDS: BACLOFEN 20 MG TABLET GT SCH ×3 (06:09→21:07)
[2018-08-08] MEDS: ACIDOPHILUS/BULGARICUS CHEW TAB GT SCH ×2 (08:39→20:56)
[2018-08-08] MEDS: DESMOPRESSIN 0.1 MG TABLET GT SCH (08:39)
[2018-08-08] MEDS: LEVETIRACETAM 500 MG/5 ML LIQUID UDC GT SCH ×2 (08:39→20:57)
[2018-08-08] MEDS: Z GUARD REMEDY PASTE 57 GM TUBE TOP SCH ×2 (08:40→20:58)
[2018-08-08] MEDS: HYDROGEN PEROXIDE 3% 118 ML BOTTLE TP SCH ×2 (08:40→20:58)
[2018-08-08] MEDS: COD LIVER OIL/ZINC OXIDE OINT 113 GM TUBE TP SCH ×2 (08:40→20:58)
[2018-08-08] MEDS: VITAMINS A AND D OINT TP SCH ×2 (08:40→20:58)
[2018-08-08] MEDS: HEPARIN SODIUM,PORCINE 5,000 UNITS/ML VIAL SQ SCH ×2 (08:44→20:56)
[2018-08-08] MEDS: METHYLPHENIDATE HCL 5 MG TABLET GT SCH (08:46)
[2018-08-08 11:19] VITALS: BP 108/65
[2018-08-08 20:23] VITALS: BP 99/52
[2018-08-08] MEDS: FOLIC ACID 1 MG TABLET GT SCH (20:56)
[2018-08-08] MEDS: CHOLECALCIFEROL 1,000 UNIT TABLET GT SCH (20:57)
[2018-08-08] MEDS: THIAMINE HCL 100 MG TABLET GT SCH (20:57)
[2018-08-09] MEDS: VITAL AF 1.2 1,000 ML LIQUID GT PRN ×2 (01:32→22:02)
[2018-08-09] MEDS: BACLOFEN 20 MG TABLET GT SCH ×3 (05:42→21:26)
[2018-08-09] MEDS: OMEPRAZOLE 20 MG CAPSULE.DR GT SCH (05:42)
[2018-08-09] MEDS: DESMOPRESSIN 0.1 MG TABLET GT SCH (08:18)
[2018-08-09] MEDS: LEVETIRACETAM 500 MG/5 ML LIQUID UDC GT SCH ×2 (08:18→21:26)
[2018-08-09] MEDS: ACIDOPHILUS/BULGARICUS CHEW TAB GT SCH ×2 (08:18→21:25)
[2018-08-09] MEDS: HYDROGEN PEROXIDE 3% 118 ML BOTTLE TP SCH ×2 (08:19→21:26)
[2018-08-09] MEDS: METHYLPHENIDATE HCL 5 MG TABLET GT SCH (08:19)
[2018-08-09] MEDS: Z GUARD REMEDY PASTE 57 GM TUBE TOP SCH ×2 (08:19→21:26)
[2018-08-09] MEDS: VITAMINS A AND D OINT TP SCH ×2 (08:19→21:26)
[2018-08-09] MEDS: COD LIVER OIL/ZINC OXIDE OINT 113 GM TUBE TP SCH ×2 (08:19→21:26)
[2018-08-09] MEDS: HEPARIN SODIUM,PORCINE 5,000 UNITS/ML VIAL SQ SCH ×2 (08:21→21:23)
[2018-08-09 09:15] VITALS: BP 118/56
[2018-08-09 10:52] VITALS: BP 107/55
[2018-08-09 20:50] VITALS: BP 98/50
[2018-08-09] MEDS: FOLIC ACID 1 MG TABLET GT SCH (21:25)
[2018-08-09] MEDS: CHOLECALCIFEROL 1,000 UNIT TABLET GT SCH (21:26)
[2018-08-09] MEDS: THIAMINE HCL 100 MG TABLET GT SCH (21:26)
[2018-08-10] MEDS: OMEPRAZOLE 20 MG CAPSULE.DR GT SCH (05:06)
[2018-08-10] MEDS: BACLOFEN 20 MG TABLET GT SCH ×3 (05:06→22:10)
[2018-08-10] MEDS: HYDROGEN PEROXIDE 3% 118 ML BOTTLE TP SCH ×2 (09:00→20:25)
[2018-08-10] MEDS: ACIDOPHILUS/BULGARICUS CHEW TAB GT SCH ×2 (09:00→20:23)
[2018-08-10] MEDS: Z GUARD REMEDY PASTE 57 GM TUBE TOP SCH ×2 (09:00→20:25)
[2018-08-10] MEDS: VITAMINS A AND D OINT TP SCH ×2 (09:00→20:26)
[2018-08-10] MEDS: HEPARIN SODIUM,PORCINE 5,000 UNITS/ML VIAL SQ SCH ×2 (09:00→20:22)
[2018-08-10] MEDS: METHYLPHENIDATE HCL 5 MG TABLET GT SCH (09:00)
[2018-08-10] MEDS: LEVETIRACETAM 500 MG/5 ML LIQUID UDC GT SCH ×2 (09:00→20:24)
[2018-08-10] MEDS: COD LIVER OIL/ZINC OXIDE OINT 113 GM TUBE TP SCH ×2 (09:00→20:25)
[2018-08-10] MEDS: DESMOPRESSIN 0.1 MG TABLET GT SCH (10:05)
[2018-08-10 12:35] VITALS: BP 105/66
[2018-08-10] MEDS: FOLIC ACID 1 MG TABLET GT SCH (20:23)
[2018-08-10] MEDS: CHOLECALCIFEROL 1,000 UNIT TABLET GT SCH (20:25)
[2018-08-10] MEDS: THIAMINE HCL 100 MG TABLET GT SCH (20:25)
[2018-08-10 20:57] VITALS: BP 102/51
[2018-08-11] MEDS: OMEPRAZOLE 20 MG CAPSULE.DR GT SCH (05:25)
[2018-08-11] MEDS: BACLOFEN 20 MG TABLET GT SCH ×3 (05:25→21:56)
[2018-08-11] MEDS: LEVETIRACETAM 500 MG/5 ML LIQUID UDC GT SCH ×2 (09:02→21:51)
[2018-08-11] MEDS: ACIDOPHILUS/BULGARICUS CHEW TAB GT SCH ×2 (09:02→21:51)
[2018-08-11] MEDS: METHYLPHENIDATE HCL 5 MG TABLET GT SCH (09:02)
[2018-08-11] MEDS: DESMOPRESSIN 0.1 MG TABLET GT SCH (09:02)
[2018-08-11] MEDS: VITAMINS A AND D OINT TP SCH ×2 (09:03→21:51)
[2018-08-11] MEDS: KETOCONAZOLE 2% SHAMPOO 120 ML BOTTLE TP SCH (09:03)
[2018-08-11] MEDS: HEPARIN SODIUM,PORCINE 5,000 UNITS/ML VIAL SQ SCH ×2 (09:03→21:58)
[2018-08-11] MEDS: Z GUARD REMEDY PASTE 57 GM TUBE TOP SCH ×2 (09:03→21:51)
[2018-08-11] MEDS: HYDROGEN PEROXIDE 3% 118 ML BOTTLE TP SCH ×2 (09:03→21:51)
[2018-08-11] MEDS: COD LIVER OIL/ZINC OXIDE OINT 113 GM TUBE TP SCH ×2 (09:03→21:51)
[2018-08-11 10:33] VITALS: BP 100/56
[2018-08-11 20:00] VITALS: BP 90/45
[2018-08-11] MEDS: CHOLECALCIFEROL 1,000 UNIT TABLET GT SCH (21:51)
[2018-08-11] MEDS: THIAMINE HCL 100 MG TABLET GT SCH (21:51)
[2018-08-11] MEDS: FOLIC ACID 1 MG TABLET GT SCH (21:51)
[2018-08-12] MEDS: OMEPRAZOLE 20 MG CAPSULE.DR GT SCH (06:13)
[2018-08-12] MEDS: BACLOFEN 20 MG TABLET GT SCH ×3 (06:13→21:47)
[2018-08-12] MEDS: LEVETIRACETAM 500 MG/5 ML LIQUID UDC GT SCH ×2 (08:16→20:24)
[2018-08-12] MEDS: METHYLPHENIDATE HCL 5 MG TABLET GT SCH (08:16)
[2018-08-12] MEDS: ACIDOPHILUS/BULGARICUS CHEW TAB GT SCH ×2 (08:16→20:24)
[2018-08-12] MEDS: HEPARIN SODIUM,PORCINE 5,000 UNITS/ML VIAL SQ SCH ×2 (08:17→21:47)
[2018-08-12] MEDS: VITAMINS A AND D OINT TP SCH ×2 (08:17→20:27)
[2018-08-12] MEDS: Z GUARD REMEDY PASTE 57 GM TUBE TOP SCH ×2 (08:17→20:27)
[2018-08-12] MEDS: HYDROGEN PEROXIDE 3% 118 ML BOTTLE TP SCH ×2 (08:17→20:27)
[2018-08-12] MEDS: COD LIVER OIL/ZINC OXIDE OINT 113 GM TUBE TP SCH ×2 (08:17→20:27)
[2018-08-12] MEDS: DESMOPRESSIN 0.1 MG TABLET GT SCH (09:00)
[2018-08-12 11:24] VITALS: BP 106/65
[2018-08-12] MEDS: FOLIC ACID 1 MG TABLET GT SCH (20:24)
[2018-08-12] MEDS: THIAMINE HCL 100 MG TABLET GT SCH (20:24)
[2018-08-12] MEDS: CHOLECALCIFEROL 1,000 UNIT TABLET GT SCH (20:26)
[2018-08-12 20:40] VITALS: BP 95/40
[2018-08-13] MEDS: VITAL AF 1.2 1,000 ML LIQUID GT PRN (03:55)
[2018-08-13] MEDS: BACLOFEN 20 MG TABLET GT SCH ×3 (05:51→22:00)
[2018-08-13] MEDS: OMEPRAZOLE 20 MG CAPSULE.DR GT SCH (05:51)
[2018-08-13] MEDS: LEVETIRACETAM 500 MG/5 ML LIQUID UDC GT SCH ×2 (08:25→20:33)
[2018-08-13] MEDS: DESMOPRESSIN 0.1 MG TABLET GT SCH (08:25)
[2018-08-13] MEDS: ACIDOPHILUS/BULGARICUS CHEW TAB GT SCH ×2 (08:25→20:33)
[2018-08-13] MEDS: METHYLPHENIDATE HCL 5 MG TABLET GT SCH (08:26)
[2018-08-13] MEDS: HEPARIN SODIUM,PORCINE 5,000 UNITS/ML VIAL SQ SCH ×2 (08:26→21:59)
[2018-08-13] MEDS: Z GUARD REMEDY PASTE 57 GM TUBE TOP SCH ×2 (08:26→20:34)
[2018-08-13] MEDS: COD LIVER OIL/ZINC OXIDE OINT 113 GM TUBE TP SCH ×2 (08:26→20:34)
[2018-08-13] MEDS: HYDROGEN PEROXIDE 3% 118 ML BOTTLE TP SCH ×2 (08:26→20:34)
[2018-08-13] MEDS: VITAMINS A AND D OINT TP SCH ×2 (08:26→20:34)
[2018-08-13 11:27] VITALS: BP 115/59
[2018-08-13] MEDS: CHOLECALCIFEROL 1,000 UNIT TABLET GT SCH (20:33)
[2018-08-13] MEDS: FOLIC ACID 1 MG TABLET GT SCH (20:33)
[2018-08-13] MEDS: THIAMINE HCL 100 MG TABLET GT SCH (20:33)
[2018-08-13 20:38] VITALS: BP 108/57
[2018-08-14] MEDS: VITAL AF 1.2 1,000 ML LIQUID GT PRN ×2 (00:09→19:48)
[2018-08-14] MEDS: OMEPRAZOLE 20 MG CAPSULE.DR GT SCH (05:35)
[2018-08-14] MEDS: BACLOFEN 20 MG TABLET GT SCH ×3 (05:35→21:41)
[2018-08-14 08:00] VITALS: BP 106/62
[2018-08-14] MEDS: DESMOPRESSIN 0.1 MG TABLET GT SCH (08:56)
[2018-08-14] MEDS: ACIDOPHILUS/BULGARICUS CHEW TAB GT SCH ×2 (08:56→20:32)
[2018-08-14] MEDS: Z GUARD REMEDY PASTE 57 GM TUBE TOP SCH ×2 (08:57→20:34)
[2018-08-14] MEDS: METHYLPHENIDATE HCL 5 MG TABLET GT SCH (08:57)
[2018-08-14] MEDS: LEVETIRACETAM 500 MG/5 ML LIQUID UDC GT SCH ×2 (08:57→20:32)
[2018-08-14] MEDS: HYDROGEN PEROXIDE 3% 118 ML BOTTLE TP SCH ×2 (08:57→20:34)
[2018-08-14] MEDS: COD LIVER OIL/ZINC OXIDE OINT 113 GM TUBE TP SCH ×2 (08:57→20:34)
[2018-08-14] MEDS: VITAMINS A AND D OINT TP SCH ×2 (08:57→20:34)
[2018-08-14] MEDS: KETOCONAZOLE 2% SHAMPOO 120 ML BOTTLE TP SCH (08:57)
[2018-08-14] MEDS: HEPARIN SODIUM,PORCINE 5,000 UNITS/ML VIAL SQ SCH ×2 (08:59→20:33)
[2018-08-14] MEDS: FOLIC ACID 1 MG TABLET GT SCH (20:32)
[2018-08-14] MEDS: THIAMINE HCL 100 MG TABLET GT SCH (20:32)
[2018-08-14] MEDS: CHOLECALCIFEROL 1,000 UNIT TABLET GT SCH (20:33)
[2018-08-14 20:53] VITALS: BP 109/66
[2018-08-15] MEDS: BACLOFEN 20 MG TABLET GT SCH ×3 (06:09→21:08)
[2018-08-15] MEDS: OMEPRAZOLE 20 MG CAPSULE.DR GT SCH (06:09)
[2018-08-15 08:11] VITALS: BP 105/57
[2018-08-15] MEDS: DESMOPRESSIN 0.1 MG TABLET GT SCH (08:37)
[2018-08-15] MEDS: HYDROGEN PEROXIDE 3% 118 ML BOTTLE TP SCH ×2 (08:37→20:56)
[2018-08-15] MEDS: METHYLPHENIDATE HCL 5 MG TABLET GT SCH (08:37)
[2018-08-15] MEDS: ACIDOPHILUS/BULGARICUS CHEW TAB GT SCH ×2 (08:37→20:55)
[2018-08-15] MEDS: Z GUARD REMEDY PASTE 57 GM TUBE TOP SCH ×2 (08:37→20:55)
[2018-08-15] MEDS: COD LIVER OIL/ZINC OXIDE OINT 113 GM TUBE TP SCH ×2 (08:37→20:55)
[2018-08-15] MEDS: VITAMINS A AND D OINT TP SCH ×2 (08:37→20:57)
[2018-08-15] MEDS: LEVETIRACETAM 500 MG/5 ML LIQUID UDC GT SCH ×2 (08:37→20:55)
[2018-08-15] MEDS: HEPARIN SODIUM,PORCINE 5,000 UNITS/ML VIAL SQ SCH ×2 (08:38→20:52)
[2018-08-15] MEDS: VITAL AF 1.2 1,000 ML LIQUID GT PRN (14:37)
[2018-08-15 20:30] VITALS: BP 98/53
[2018-08-15] MEDS: THIAMINE HCL 100 MG TABLET GT SCH (20:55)
[2018-08-15] MEDS: FOLIC ACID 1 MG TABLET GT SCH (20:55)
[2018-08-15] MEDS: CHOLECALCIFEROL 1,000 UNIT TABLET GT SCH (20:55)
[2018-08-16] MEDS: OMEPRAZOLE 20 MG CAPSULE.DR GT SCH (06:27)
[2018-08-16] MEDS: BACLOFEN 20 MG TABLET GT SCH ×3 (06:27→22:01)
[2018-08-16] MEDS: HYDROGEN PEROXIDE 3% 118 ML BOTTLE TP SCH ×2 (08:46→20:41)
[2018-08-16] MEDS: ACIDOPHILUS/BULGARICUS CHEW TAB GT SCH ×2 (08:46→20:37)
[2018-08-16] MEDS: COD LIVER OIL/ZINC OXIDE OINT 113 GM TUBE TP SCH ×2 (08:46→20:41)
[2018-08-16] MEDS: LEVETIRACETAM 500 MG/5 ML LIQUID UDC GT SCH ×2 (08:46→20:37)
[2018-08-16] MEDS: DESMOPRESSIN 0.1 MG TABLET GT SCH (08:46)
[2018-08-16] MEDS: METHYLPHENIDATE HCL 5 MG TABLET GT SCH (08:46)
[2018-08-16] MEDS: VITAMINS A AND D OINT TP SCH ×2 (08:46→20:41)
[2018-08-16] MEDS: Z GUARD REMEDY PASTE 57 GM TUBE TOP SCH ×2 (08:46→20:41)
[2018-08-16] MEDS: HEPARIN SODIUM,PORCINE 5,000 UNITS/ML VIAL SQ SCH ×2 (08:47→20:40)
[2018-08-16 10:27] VITALS: BP 94/52
[2018-08-16] MEDS: VITAL AF 1.2 1,000 ML LIQUID GT PRN (12:21)
[2018-08-16 20:25] VITALS: BP 107/47
[2018-08-16] MEDS: FOLIC ACID 1 MG TABLET GT SCH (20:37)
[2018-08-16] MEDS: THIAMINE HCL 100 MG TABLET GT SCH (20:37)
[2018-08-16] MEDS: CHOLECALCIFEROL 1,000 UNIT TABLET GT SCH (20:38)
[2018-08-17] MEDS: OMEPRAZOLE 20 MG CAPSULE.DR GT SCH (06:39)
[2018-08-17] MEDS: BACLOFEN 20 MG TABLET GT SCH ×3 (06:39→21:16)
[2018-08-17] MEDS: HYDROGEN PEROXIDE 3% 118 ML BOTTLE TP SCH ×2 (08:15→21:17)
[2018-08-17] MEDS: ACIDOPHILUS/BULGARICUS CHEW TAB GT SCH ×2 (08:15→21:13)
[2018-08-17] MEDS: COD LIVER OIL/ZINC OXIDE OINT 113 GM TUBE TP SCH ×2 (08:15→21:17)
[2018-08-17] MEDS: Z GUARD REMEDY PASTE 57 GM TUBE TOP SCH ×2 (08:15→21:17)
[2018-08-17] MEDS: VITAMINS A AND D OINT TP SCH ×2 (08:15→21:17)
[2018-08-17] MEDS: LEVETIRACETAM 500 MG/5 ML LIQUID UDC GT SCH ×2 (08:15→21:14)
[2018-08-17] MEDS: METHYLPHENIDATE HCL 5 MG TABLET GT SCH (08:15)
[2018-08-17] MEDS: DESMOPRESSIN 0.1 MG TABLET GT SCH (08:15)
[2018-08-17] MEDS: HEPARIN SODIUM,PORCINE 5,000 UNITS/ML VIAL SQ SCH ×2 (08:16→21:20)
[2018-08-17 11:14] VITALS: BP 103/44
[2018-08-17] MEDS: VITAL AF 1.2 1,000 ML LIQUID GT PRN (12:07)
[2018-08-17 20:00] VITALS: BP 98/44
[2018-08-17] MEDS: FOLIC ACID 1 MG TABLET GT SCH (21:14)
[2018-08-17] MEDS: THIAMINE HCL 100 MG TABLET GT SCH (21:14)
[2018-08-17] MEDS: CHOLECALCIFEROL 1,000 UNIT TABLET GT SCH (21:15)
[2018-08-18] MEDS: VITAL AF 1.2 1,000 ML LIQUID GT PRN ×2 (00:32→16:56)
[2018-08-18] MEDS: BACLOFEN 20 MG TABLET GT SCH ×3 (05:54→21:48)
[2018-08-18] MEDS: OMEPRAZOLE 20 MG CAPSULE.DR GT SCH (05:54)
[2018-08-18] MEDS: DESMOPRESSIN 0.1 MG TABLET GT SCH (08:14)
[2018-08-18] MEDS: ACIDOPHILUS/BULGARICUS CHEW TAB GT SCH ×2 (08:14→20:23)
[2018-08-18] MEDS: LEVETIRACETAM 500 MG/5 ML LIQUID UDC GT SCH ×2 (08:15→20:24)
[2018-08-18] MEDS: METHYLPHENIDATE HCL 5 MG TABLET GT SCH (08:15)
[2018-08-18] MEDS: HEPARIN SODIUM,PORCINE 5,000 UNITS/ML VIAL SQ SCH ×2 (08:15→21:48)
[2018-08-18] MEDS: Z GUARD REMEDY PASTE 57 GM TUBE TOP SCH ×2 (08:16→20:24)
[2018-08-18] MEDS: HYDROGEN PEROXIDE 3% 118 ML BOTTLE TP SCH ×2 (08:16→20:24)
[2018-08-18] MEDS: KETOCONAZOLE 2% SHAMPOO 120 ML BOTTLE TP SCH (08:16)
[2018-08-18] MEDS: COD LIVER OIL/ZINC OXIDE OINT 113 GM TUBE TP SCH ×2 (08:16→20:24)
[2018-08-18] MEDS: VITAMINS A AND D OINT TP SCH ×2 (08:16→20:24)
[2018-08-18 11:15] VITALS: BP 94/57
[2018-08-18 20:00] VITALS: BP 109/61
[2018-08-18] MEDS: FOLIC ACID 1 MG TABLET GT SCH (20:23)
[2018-08-18] MEDS: THIAMINE HCL 100 MG TABLET GT SCH (20:24)
[2018-08-18] MEDS: CHOLECALCIFEROL 1,000 UNIT TABLET GT SCH (20:24)
[2018-08-19] MEDS: OMEPRAZOLE 20 MG CAPSULE.DR GT SCH (06:37)
[2018-08-19] MEDS: BACLOFEN 20 MG TABLET GT SCH ×3 (06:37→21:20)
[2018-08-19 07:40] VITALS: BP 110/64
[2018-08-19 08:03] VITALS: BP 110/64
[2018-08-19] MEDS: ACIDOPHILUS/BULGARICUS CHEW TAB GT SCH ×2 (08:22→21:15)
[2018-08-19] MEDS: METHYLPHENIDATE HCL 5 MG TABLET GT SCH (08:23)
[2018-08-19] MEDS: DESMOPRESSIN 0.1 MG TABLET GT SCH (08:23)
[2018-08-19] MEDS: LEVETIRACETAM 500 MG/5 ML LIQUID UDC GT SCH ×2 (08:23→21:16)
[2018-08-19] MEDS: HEPARIN SODIUM,PORCINE 5,000 UNITS/ML VIAL SQ SCH ×2 (08:23→21:18)
[2018-08-19] MEDS: HYDROGEN PEROXIDE 3% 118 ML BOTTLE TP SCH ×2 (08:24→21:19)
[2018-08-19] MEDS: Z GUARD REMEDY PASTE 57 GM TUBE TOP SCH ×2 (08:24→21:19)
[2018-08-19] MEDS: COD LIVER OIL/ZINC OXIDE OINT 113 GM TUBE TP SCH ×2 (08:24→21:19)
[2018-08-19] MEDS: VITAMINS A AND D OINT TP SCH ×2 (08:24→21:20)
[2018-08-19 20:00] VITALS: BP 92/54
[2018-08-19] MEDS: FOLIC ACID 1 MG TABLET GT SCH (21:15)
[2018-08-19] MEDS: THIAMINE HCL 100 MG TABLET GT SCH (21:16)
[2018-08-19] MEDS: CHOLECALCIFEROL 1,000 UNIT TABLET GT SCH (21:17)
[2018-08-20] MEDS: OMEPRAZOLE 20 MG CAPSULE.DR GT SCH (05:48)
[2018-08-20] MEDS: BACLOFEN 20 MG TABLET GT SCH ×3 (05:48→21:51)
[2018-08-20] MEDS: BISACODYL 10 MG SUPP.RECT RC PRN (06:15)
[2018-08-20 07:38] VITALS: BP 107/54
[2018-08-20] MEDS: DESMOPRESSIN 0.1 MG TABLET GT SCH (08:03)
[2018-08-20] MEDS: METHYLPHENIDATE HCL 5 MG TABLET GT SCH (08:04)
[2018-08-20] MEDS: Z GUARD REMEDY PASTE 57 GM TUBE TOP SCH ×2 (08:04→20:40)
[2018-08-20] MEDS: HEPARIN SODIUM,PORCINE 5,000 UNITS/ML VIAL SQ SCH ×2 (08:04→21:00)
[2018-08-20] MEDS: ACIDOPHILUS/BULGARICUS CHEW TAB GT SCH ×2 (08:04→20:40)
[2018-08-20] MEDS: LEVETIRACETAM 500 MG/5 ML LIQUID UDC GT SCH ×2 (08:04→20:40)
[2018-08-20 08:05] VITALS: BP 107/54
[2018-08-20] MEDS: HYDROGEN PEROXIDE 3% 118 ML BOTTLE TP SCH ×2 (08:05→20:41)
[2018-08-20] MEDS: COD LIVER OIL/ZINC OXIDE OINT 113 GM TUBE TP SCH ×2 (08:05→20:41)
[2018-08-20] MEDS: VITAMINS A AND D OINT TP SCH ×2 (08:05→20:41)
[2018-08-20 20:00] VITALS: BP 98/58
[2018-08-20] MEDS: THIAMINE HCL 100 MG TABLET GT SCH (20:40)
[2018-08-20] MEDS: CHOLECALCIFEROL 1,000 UNIT TABLET GT SCH (20:40)
[2018-08-20] MEDS: FOLIC ACID 1 MG TABLET GT SCH (20:40)
[2018-08-21] MEDS: VITAL AF 1.2 1,000 ML LIQUID GT PRN (04:21)
[2018-08-21] MEDS: BACLOFEN 20 MG TABLET GT SCH ×3 (06:26→22:17)
[2018-08-21] MEDS: OMEPRAZOLE 20 MG CAPSULE.DR GT SCH (06:26)
[2018-08-21 08:00] VITALS: BP 104/62
[2018-08-21] MEDS: COD LIVER OIL/ZINC OXIDE OINT 113 GM TUBE TP SCH ×2 (08:11→20:29)
[2018-08-21] MEDS: HYDROGEN PEROXIDE 3% 118 ML BOTTLE TP SCH ×2 (08:11→20:29)
[2018-08-21] MEDS: Z GUARD REMEDY PASTE 57 GM TUBE TOP SCH ×2 (08:11→20:29)
[2018-08-21] MEDS: HEPARIN SODIUM,PORCINE 5,000 UNITS/ML VIAL SQ SCH ×2 (08:14→21:02)
[2018-08-21] MEDS: LEVETIRACETAM 500 MG/5 ML LIQUID UDC GT SCH ×2 (08:16→20:29)
[2018-08-21] MEDS: ACIDOPHILUS/BULGARICUS CHEW TAB GT SCH ×2 (08:19→20:28)
[2018-08-21] MEDS: KETOCONAZOLE 2% SHAMPOO 120 ML BOTTLE TP SCH (08:20)
[2018-08-21] MEDS: DESMOPRESSIN 0.1 MG TABLET GT SCH (08:20)
[2018-08-21] MEDS: VITAMINS A AND D OINT TP SCH ×2 (08:20→20:29)
[2018-08-21] MEDS: METHYLPHENIDATE HCL 5 MG TABLET GT SCH (09:18)
[2018-08-21 20:00] VITALS: BP 96/45
[2018-08-21] MEDS: FOLIC ACID 1 MG TABLET GT SCH (20:28)
[2018-08-21] MEDS: CHOLECALCIFEROL 1,000 UNIT TABLET GT SCH (20:29)
[2018-08-21] MEDS: THIAMINE HCL 100 MG TABLET GT SCH (20:29)
[2018-08-22] MEDS: VITAL AF 1.2 1,000 ML LIQUID GT PRN (01:58)
[2018-08-22] MEDS: OMEPRAZOLE 20 MG CAPSULE.DR GT SCH (05:31)
[2018-08-22] MEDS: BACLOFEN 20 MG TABLET GT SCH ×3 (05:31→21:55)
[2018-08-22] MEDS: DESMOPRESSIN 0.1 MG TABLET GT SCH (08:45)
[2018-08-22] MEDS: VITAMINS A AND D OINT TP SCH ×2 (08:45→21:55)
[2018-08-22] MEDS: LEVETIRACETAM 500 MG/5 ML LIQUID UDC GT SCH ×2 (08:45→21:55)
[2018-08-22] MEDS: ACIDOPHILUS/BULGARICUS CHEW TAB GT SCH ×2 (08:45→21:55)
[2018-08-22] MEDS: COD LIVER OIL/ZINC OXIDE OINT 113 GM TUBE TP SCH ×2 (08:45→21:55)
[2018-08-22] MEDS: Z GUARD REMEDY PASTE 57 GM TUBE TOP SCH ×2 (08:45→21:55)
[2018-08-22] MEDS: METHYLPHENIDATE HCL 5 MG TABLET GT SCH (08:45)
[2018-08-22] MEDS: HEPARIN SODIUM,PORCINE 5,000 UNITS/ML VIAL SQ SCH ×2 (08:45→21:57)
[2018-08-22] MEDS: HYDROGEN PEROXIDE 3% 118 ML BOTTLE TP SCH ×2 (08:45→21:55)
[2018-08-22 11:19] VITALS: BP 103/50
[2018-08-22 20:30] VITALS: BP 104/60
[2018-08-22] MEDS: CHOLECALCIFEROL 1,000 UNIT TABLET GT SCH (21:55)
[2018-08-22] MEDS: THIAMINE HCL 100 MG TABLET GT SCH (21:55)
[2018-08-22] MEDS: FOLIC ACID 1 MG TABLET GT SCH (21:55)
[2018-08-23] MEDS: OMEPRAZOLE 20 MG CAPSULE.DR GT SCH (06:05)
[2018-08-23] MEDS: BACLOFEN 20 MG TABLET GT SCH ×3 (06:05→22:08)
[2018-08-23 08:00] VITALS: BP 99/49
[2018-08-23] MEDS: DESMOPRESSIN 0.1 MG TABLET GT SCH (08:35)
[2018-08-23] MEDS: COD LIVER OIL/ZINC OXIDE OINT 113 GM TUBE TP SCH ×2 (08:35→20:50)
[2018-08-23] MEDS: Z GUARD REMEDY PASTE 57 GM TUBE TOP SCH ×2 (08:35→20:50)
[2018-08-23] MEDS: HEPARIN SODIUM,PORCINE 5,000 UNITS/ML VIAL SQ SCH ×2 (08:35→21:01)
[2018-08-23] MEDS: LEVETIRACETAM 500 MG/5 ML LIQUID UDC GT SCH ×2 (08:35→20:49)
[2018-08-23] MEDS: ACIDOPHILUS/BULGARICUS CHEW TAB GT SCH ×2 (08:35→20:49)
[2018-08-23] MEDS: METHYLPHENIDATE HCL 5 MG TABLET GT SCH (08:35)
[2018-08-23] MEDS: HYDROGEN PEROXIDE 3% 118 ML BOTTLE TP SCH ×2 (08:36→20:51)
[2018-08-23] MEDS: VITAMINS A AND D OINT TP SCH ×2 (08:36→20:51)
[2018-08-23] MEDS: FOLIC ACID 1 MG TABLET GT SCH (20:49)
[2018-08-23] MEDS: THIAMINE HCL 100 MG TABLET GT SCH (20:50)
[2018-08-23] MEDS: CHOLECALCIFEROL 1,000 UNIT TABLET GT SCH (20:50)
[2018-08-23 21:35] VITALS: BP 105/60
[2018-08-24] MEDS: OMEPRAZOLE 20 MG CAPSULE.DR GT SCH (05:36)
[2018-08-24] MEDS: BACLOFEN 20 MG TABLET GT SCH ×3 (05:36→22:14)
[2018-08-24] MEDS: VITAL AF 1.2 1,000 ML LIQUID GT PRN (06:50)
[2018-08-24 08:00] VITALS: BP 119/50
[2018-08-24] MEDS: ACIDOPHILUS/BULGARICUS CHEW TAB GT SCH ×2 (09:00→20:44)
[2018-08-24] MEDS: HEPARIN SODIUM,PORCINE 5,000 UNITS/ML VIAL SQ SCH ×2 (09:00→20:45)
[2018-08-24] MEDS: METHYLPHENIDATE HCL 5 MG TABLET GT SCH (09:00)
[2018-08-24] MEDS: DESMOPRESSIN 0.1 MG TABLET GT SCH (09:00)
[2018-08-24] MEDS: VITAMINS A AND D OINT TP SCH ×2 (09:00→20:46)
[2018-08-24] MEDS: Z GUARD REMEDY PASTE 57 GM TUBE TOP SCH ×2 (09:00→20:45)
[2018-08-24] MEDS: LEVETIRACETAM 500 MG/5 ML LIQUID UDC GT SCH ×2 (09:00→20:44)
[2018-08-24] MEDS: COD LIVER OIL/ZINC OXIDE OINT 113 GM TUBE TP SCH ×2 (09:00→20:46)
[2018-08-24] MEDS: HYDROGEN PEROXIDE 3% 118 ML BOTTLE TP SCH ×2 (09:00→20:46)
[2018-08-24] MEDS: FOLIC ACID 1 MG TABLET GT SCH (20:44)
[2018-08-24] MEDS: THIAMINE HCL 100 MG TABLET GT SCH (20:44)
[2018-08-24] MEDS: CHOLECALCIFEROL 1,000 UNIT TABLET GT SCH (20:44)
[2018-08-24 21:00] VITALS: BP 99/52
[2018-08-25] MEDS: VITAL AF 1.2 1,000 ML LIQUID GT PRN ×2 (01:15→21:52)
[2018-08-25] MEDS: OMEPRAZOLE 20 MG CAPSULE.DR GT SCH (05:47)
[2018-08-25] MEDS: BACLOFEN 20 MG TABLET GT SCH ×3 (05:47→21:50)
[2018-08-25 08:00] VITALS: BP 103/45
[2018-08-25] MEDS: DESMOPRESSIN 0.1 MG TABLET GT SCH (09:43)
[2018-08-25] MEDS: LEVETIRACETAM 500 MG/5 ML LIQUID UDC GT SCH ×2 (09:44→21:45)
[2018-08-25] MEDS: ACIDOPHILUS/BULGARICUS CHEW TAB GT SCH ×2 (09:44→21:45)
[2018-08-25] MEDS: HEPARIN SODIUM,PORCINE 5,000 UNITS/ML VIAL SQ SCH ×2 (09:46→21:46)
[2018-08-25] MEDS: VITAMINS A AND D OINT TP SCH ×2 (09:49→21:49)
[2018-08-25] MEDS: COD LIVER OIL/ZINC OXIDE OINT 113 GM TUBE TP SCH ×2 (09:49→21:49)
[2018-08-25] MEDS: Z GUARD REMEDY PASTE 57 GM TUBE TOP SCH ×2 (09:49→21:47)
[2018-08-25] MEDS: KETOCONAZOLE 2% SHAMPOO 120 ML BOTTLE TP SCH (09:49)
[2018-08-25] MEDS: HYDROGEN PEROXIDE 3% 118 ML BOTTLE TP SCH ×2 (09:49→21:49)
[2018-08-25] MEDS: METHYLPHENIDATE HCL 5 MG TABLET GT SCH (09:50)
[2018-08-25] MEDS: FOLIC ACID 1 MG TABLET GT SCH (21:45)
[2018-08-25] MEDS: THIAMINE HCL 100 MG TABLET GT SCH (21:46)
[2018-08-25] MEDS: CHOLECALCIFEROL 1,000 UNIT TABLET GT SCH (21:49)
[2018-08-26] MEDS: OMEPRAZOLE 20 MG CAPSULE.DR GT SCH (05:28)
[2018-08-26] MEDS: BACLOFEN 20 MG TABLET GT SCH ×3 (05:28→21:37)
[2018-08-26 08:00] VITALS: BP 90/56
[2018-08-26] MEDS: METHYLPHENIDATE HCL 5 MG TABLET GT SCH (08:41)
[2018-08-26] MEDS: HYDROGEN PEROXIDE 3% 118 ML BOTTLE TP SCH ×2 (08:41→21:37)
[2018-08-26] MEDS: DESMOPRESSIN 0.1 MG TABLET GT SCH (08:41)
[2018-08-26] MEDS: VITAMINS A AND D OINT TP SCH ×2 (08:41→21:37)
[2018-08-26] MEDS: COD LIVER OIL/ZINC OXIDE OINT 113 GM TUBE TP SCH ×2 (08:41→21:37)
[2018-08-26] MEDS: ACIDOPHILUS/BULGARICUS CHEW TAB GT SCH ×2 (08:41→21:32)
[2018-08-26] MEDS: Z GUARD REMEDY PASTE 57 GM TUBE TOP SCH ×2 (08:41→21:37)
[2018-08-26] MEDS: LEVETIRACETAM 500 MG/5 ML LIQUID UDC GT SCH ×2 (08:41→21:34)
[2018-08-26] MEDS: HEPARIN SODIUM,PORCINE 5,000 UNITS/ML VIAL SQ SCH ×2 (08:42→21:36)
[2018-08-26 20:33] VITALS: BP 100/45
[2018-08-26] MEDS: FOLIC ACID 1 MG TABLET GT SCH (21:33)
[2018-08-26] MEDS: CHOLECALCIFEROL 1,000 UNIT TABLET GT SCH (21:35)
[2018-08-26] MEDS: THIAMINE HCL 100 MG TABLET GT SCH (21:35)
[2018-08-27] MEDS: OMEPRAZOLE 20 MG CAPSULE.DR GT SCH (06:20)
[2018-08-27] MEDS: BACLOFEN 20 MG TABLET GT SCH ×3 (06:20→22:02)
[2018-08-27] MEDS: DESMOPRESSIN 0.1 MG TABLET GT SCH (08:04)
[2018-08-27] MEDS: ACIDOPHILUS/BULGARICUS CHEW TAB GT SCH ×2 (08:06→20:53)
[2018-08-27] MEDS: LEVETIRACETAM 500 MG/5 ML LIQUID UDC GT SCH ×2 (08:07→20:53)
[2018-08-27] MEDS: METHYLPHENIDATE HCL 5 MG TABLET GT SCH (08:07)
[2018-08-27] MEDS: COD LIVER OIL/ZINC OXIDE OINT 113 GM TUBE TP SCH ×2 (08:08→21:00)
[2018-08-27] MEDS: Z GUARD REMEDY PASTE 57 GM TUBE TOP SCH ×2 (08:08→20:53)
[2018-08-27] MEDS: HEPARIN SODIUM,PORCINE 5,000 UNITS/ML VIAL SQ SCH ×2 (08:08→21:00)
[2018-08-27] MEDS: HYDROGEN PEROXIDE 3% 118 ML BOTTLE TP SCH ×2 (08:09→20:53)
[2018-08-27] MEDS: VITAMINS A AND D OINT TP SCH ×2 (08:09→20:53)
[2018-08-27 10:12] VITALS: BP 99/57
[2018-08-27] MEDS: VITAL AF 1.2 1,000 ML LIQUID GT PRN (17:12)
[2018-08-27] MEDS: FOLIC ACID 1 MG TABLET GT SCH (20:53)
[2018-08-27] MEDS: CHOLECALCIFEROL 1,000 UNIT TABLET GT SCH (20:53)
[2018-08-27] MEDS: THIAMINE HCL 100 MG TABLET GT SCH (20:53)
[2018-08-27 22:00] VITALS: BP 95/51
[2018-08-28 04:09] VITALS: BP 95/51
[2018-08-28] MEDS: OMEPRAZOLE 20 MG CAPSULE.DR GT SCH (06:21)
[2018-08-28] MEDS: BACLOFEN 20 MG TABLET GT SCH ×3 (06:21→21:31)
[2018-08-28 08:00] VITALS: BP 92/55
[2018-08-28] MEDS: METHYLPHENIDATE HCL 5 MG TABLET GT SCH (09:16)
[2018-08-28] MEDS: ACIDOPHILUS/BULGARICUS CHEW TAB GT SCH ×2 (09:16→21:30)
[2018-08-28] MEDS: LEVETIRACETAM 500 MG/5 ML LIQUID UDC GT SCH ×2 (09:17→21:31)
[2018-08-28] MEDS: Z GUARD REMEDY PASTE 57 GM TUBE TOP SCH ×2 (09:19→21:31)
[2018-08-28] MEDS: COD LIVER OIL/ZINC OXIDE OINT 113 GM TUBE TP SCH ×2 (09:19→21:31)
[2018-08-28] MEDS: HEPARIN SODIUM,PORCINE 5,000 UNITS/ML VIAL SQ SCH ×2 (09:19→21:00)
[2018-08-28] MEDS: HYDROGEN PEROXIDE 3% 118 ML BOTTLE TP SCH ×2 (09:20→21:31)
[2018-08-28] MEDS: KETOCONAZOLE 2% SHAMPOO 120 ML BOTTLE TP SCH (09:20)
[2018-08-28] MEDS: VITAMINS A AND D OINT TP SCH ×2 (09:20→21:31)
[2018-08-28] MEDS: DESMOPRESSIN 0.1 MG TABLET GT SCH (09:24)
[2018-08-28] MEDS: VITAL AF 1.2 1,000 ML LIQUID GT PRN (12:30)
[2018-08-28] MEDS: FOLIC ACID 1 MG TABLET GT SCH (21:30)
[2018-08-28] MEDS: CHOLECALCIFEROL 1,000 UNIT TABLET GT SCH (21:31)
[2018-08-28] MEDS: THIAMINE HCL 100 MG TABLET GT SCH (21:31)
[2018-08-28 22:00] VITALS: BP 94/50
[2018-08-29] MEDS: OMEPRAZOLE 20 MG CAPSULE.DR GT SCH (05:15)
[2018-08-29] MEDS: BACLOFEN 20 MG TABLET GT SCH ×3 (05:15→22:58)
[2018-08-29] MEDS: VITAL AF 1.2 1,000 ML LIQUID GT PRN ×2 (06:38→23:58)
[2018-08-29 08:00] VITALS: BP 121/62
[2018-08-29] MEDS: DESMOPRESSIN 0.1 MG TABLET GT SCH (08:27)
[2018-08-29] MEDS: ACIDOPHILUS/BULGARICUS CHEW TAB GT SCH ×2 (08:27→20:53)
[2018-08-29] MEDS: VITAMINS A AND D OINT TP SCH ×2 (08:28→20:54)
[2018-08-29] MEDS: METHYLPHENIDATE HCL 5 MG TABLET GT SCH (08:28)
[2018-08-29] MEDS: LEVETIRACETAM 500 MG/5 ML LIQUID UDC GT SCH ×2 (08:28→20:53)
[2018-08-29] MEDS: COD LIVER OIL/ZINC OXIDE OINT 113 GM TUBE TP SCH ×2 (08:28→20:54)
[2018-08-29] MEDS: HYDROGEN PEROXIDE 3% 118 ML BOTTLE TP SCH ×2 (08:28→20:54)
[2018-08-29] MEDS: HEPARIN SODIUM,PORCINE 5,000 UNITS/ML VIAL SQ SCH ×2 (08:28→20:52)
[2018-08-29] MEDS: Z GUARD REMEDY PASTE 57 GM TUBE TOP SCH ×2 (08:28→20:54)
[2018-08-29] MEDS: THIAMINE HCL 100 MG TABLET GT SCH (20:53)
[2018-08-29] MEDS: FOLIC ACID 1 MG TABLET GT SCH (20:53)
[2018-08-29] MEDS: CHOLECALCIFEROL 1,000 UNIT TABLET GT SCH (20:54)
[2018-08-29 21:03] VITALS: BP 96/54
[2018-08-30] MEDS: BACLOFEN 20 MG TABLET GT SCH ×3 (06:11→21:13)
[2018-08-30] MEDS: OMEPRAZOLE 20 MG CAPSULE.DR GT SCH (06:11)
[2018-08-30] MEDS: LEVETIRACETAM 500 MG/5 ML LIQUID UDC GT SCH ×2 (08:12→21:11)
[2018-08-30] MEDS: ACIDOPHILUS/BULGARICUS CHEW TAB GT SCH ×2 (08:12→21:10)
[2018-08-30] MEDS: DESMOPRESSIN 0.1 MG TABLET GT SCH (08:12)
[2018-08-30] MEDS: METHYLPHENIDATE HCL 5 MG TABLET GT SCH (08:15)
[2018-08-30] MEDS: Z GUARD REMEDY PASTE 57 GM TUBE TOP SCH ×2 (08:22→21:13)
[2018-08-30] MEDS: VITAMINS A AND D OINT TP SCH ×2 (08:22→21:13)
[2018-08-30] MEDS: HYDROGEN PEROXIDE 3% 118 ML BOTTLE TP SCH ×2 (08:22→21:13)
[2018-08-30] MEDS: HEPARIN SODIUM,PORCINE 5,000 UNITS/ML VIAL SQ SCH ×2 (08:22→21:13)
[2018-08-30] MEDS: COD LIVER OIL/ZINC OXIDE OINT 113 GM TUBE TP SCH ×2 (08:22→21:13)
[2018-08-30] MEDS ORDERED: MODAFINIL 100 MG TABLET GT SCH (09:00)
[2018-08-30 11:05] VITALS: BP 119/60
[2018-08-30] MEDS: VITAL AF 1.2 1,000 ML LIQUID GT PRN ×2 (14:46→19:27)
[2018-08-30 20:00] VITALS: BP 112/51
[2018-08-30] MEDS: FOLIC ACID 1 MG TABLET GT SCH (21:10)
[2018-08-30] MEDS: THIAMINE HCL 100 MG TABLET GT SCH (21:11)
[2018-08-30] MEDS: CHOLECALCIFEROL 1,000 UNIT TABLET GT SCH (21:11)
[2018-08-31] MEDS: OMEPRAZOLE 20 MG CAPSULE.DR GT SCH (05:59)
[2018-08-31] MEDS: BACLOFEN 20 MG TABLET GT SCH ×3 (05:59→22:05)
[2018-08-31 08:15] VITALS: BP 125/67
[2018-08-31] MEDS: HEPARIN SODIUM,PORCINE 5,000 UNITS/ML VIAL SQ SCH ×2 (09:01→20:39)
[2018-08-31] MEDS: LEVETIRACETAM 500 MG/5 ML LIQUID UDC GT SCH ×2 (09:57→20:41)
[2018-08-31] MEDS: METHYLPHENIDATE HCL 5 MG TABLET GT SCH (09:57)
[2018-08-31] MEDS: DESMOPRESSIN 0.1 MG TABLET GT SCH (09:57)
[2018-08-31] MEDS: HYDROGEN PEROXIDE 3% 118 ML BOTTLE TP SCH ×2 (09:57→20:42)
[2018-08-31] MEDS: Z GUARD REMEDY PASTE 57 GM TUBE TOP SCH ×2 (09:57→20:42)
[2018-08-31] MEDS: ACIDOPHILUS/BULGARICUS CHEW TAB GT SCH ×2 (09:57→20:40)
[2018-08-31] MEDS: COD LIVER OIL/ZINC OXIDE OINT 113 GM TUBE TP SCH ×2 (09:57→20:42)
[2018-08-31] MEDS: VITAMINS A AND D OINT TP SCH ×2 (09:58→20:42)
[2018-08-31 20:00] VITALS: BP 90/41
[2018-08-31] MEDS: FOLIC ACID 1 MG TABLET GT SCH (20:41)
[2018-08-31] MEDS: CHOLECALCIFEROL 1,000 UNIT TABLET GT SCH (20:42)
[2018-08-31] MEDS: THIAMINE HCL 100 MG TABLET GT SCH (20:42)
[2018-09-01] MEDS: BACLOFEN 20 MG TABLET GT SCH ×3 (06:05→22:04)
[2018-09-01] MEDS: OMEPRAZOLE 20 MG CAPSULE.DR GT SCH (06:05)
[2018-09-01 08:00] VITALS: BP 95/55
[2018-09-01] MEDS: ACIDOPHILUS/BULGARICUS CHEW TAB GT SCH ×2 (08:40→20:24)
[2018-09-01] MEDS: DESMOPRESSIN 0.1 MG TABLET GT SCH (08:40)
[2018-09-01] MEDS: LEVETIRACETAM 500 MG/5 ML LIQUID UDC GT SCH ×2 (08:41→20:25)
[2018-09-01] MEDS: METHYLPHENIDATE HCL 5 MG TABLET GT SCH (08:41)
[2018-09-01] MEDS: HEPARIN SODIUM,PORCINE 5,000 UNITS/ML VIAL SQ SCH ×2 (08:43→21:00)
[2018-09-01] MEDS: HYDROGEN PEROXIDE 3% 118 ML BOTTLE TP SCH ×2 (08:44→20:28)
[2018-09-01] MEDS: COD LIVER OIL/ZINC OXIDE OINT 113 GM TUBE TP SCH ×2 (08:44→20:28)
[2018-09-01] MEDS: Z GUARD REMEDY PASTE 57 GM TUBE TOP SCH ×2 (08:44→20:28)
[2018-09-01] MEDS: VITAMINS A AND D OINT TP SCH ×2 (08:44→20:28)
[2018-09-01] MEDS: KETOCONAZOLE 2% SHAMPOO 120 ML BOTTLE TP SCH (08:44)
[2018-09-01] MEDS: VITAL AF 1.2 1,000 ML LIQUID GT PRN (13:08)
[2018-09-01 20:21] VITALS: BP 92/52
[2018-09-01] MEDS: FOLIC ACID 1 MG TABLET GT SCH (20:24)
[2018-09-01] MEDS: THIAMINE HCL 100 MG TABLET GT SCH (20:28)
[2018-09-01] MEDS: CHOLECALCIFEROL 1,000 UNIT TABLET GT SCH (20:28)
[2018-09-02] MEDS: VITAL AF 1.2 1,000 ML LIQUID GT PRN ×2 (05:04→13:20)
[2018-09-02] MEDS: OMEPRAZOLE 20 MG CAPSULE.DR GT SCH (05:04)
[2018-09-02] MEDS: BACLOFEN 20 MG TABLET GT SCH ×3 (05:04→21:10)
[2018-09-02 08:00] VITALS: BP 99/58
[2018-09-02] MEDS: ACIDOPHILUS/BULGARICUS CHEW TAB GT SCH ×2 (08:46→21:02)
[2018-09-02] MEDS: METHYLPHENIDATE HCL 5 MG TABLET GT SCH (08:46)
[2018-09-02] MEDS: DESMOPRESSIN 0.1 MG TABLET GT SCH (08:46)
[2018-09-02] MEDS: LEVETIRACETAM 500 MG/5 ML LIQUID UDC GT SCH ×2 (08:46→21:03)
[2018-09-02] MEDS: HEPARIN SODIUM,PORCINE 5,000 UNITS/ML VIAL SQ SCH ×2 (08:47→21:10)
[2018-09-02] MEDS: HYDROGEN PEROXIDE 3% 118 ML BOTTLE TP SCH ×2 (08:47→21:10)
[2018-09-02] MEDS: VITAMINS A AND D OINT TP SCH ×2 (08:47→21:10)
[2018-09-02] MEDS: Z GUARD REMEDY PASTE 57 GM TUBE TOP SCH ×2 (08:47→21:10)
[2018-09-02] MEDS: COD LIVER OIL/ZINC OXIDE OINT 113 GM TUBE TP SCH ×2 (08:47→21:10)
[2018-09-02 20:32] VITALS: BP 104/53
[2018-09-02] MEDS: FOLIC ACID 1 MG TABLET GT SCH (21:02)
[2018-09-02] MEDS: THIAMINE HCL 100 MG TABLET GT SCH (21:03)
[2018-09-02] MEDS: CHOLECALCIFEROL 1,000 UNIT TABLET GT SCH (21:03)
[2018-09-03] MEDS: VITAL AF 1.2 1,000 ML LIQUID GT PRN ×2 (02:18→22:49)
[2018-09-03] MEDS: OMEPRAZOLE 20 MG CAPSULE.DR GT SCH (06:01)
[2018-09-03] MEDS: BACLOFEN 20 MG TABLET GT SCH ×3 (06:01→21:09)
[2018-09-03 08:00] VITALS: BP 122/70
[2018-09-03] MEDS: METHYLPHENIDATE HCL 5 MG TABLET GT SCH (08:03)
[2018-09-03] MEDS: Z GUARD REMEDY PASTE 57 GM TUBE TOP SCH ×2 (08:03→21:09)
[2018-09-03] MEDS: ACIDOPHILUS/BULGARICUS CHEW TAB GT SCH ×2 (08:03→21:05)
[2018-09-03] MEDS: DESMOPRESSIN 0.1 MG TABLET GT SCH (08:03)
[2018-09-03] MEDS: COD LIVER OIL/ZINC OXIDE OINT 113 GM TUBE TP SCH ×2 (08:03→21:09)
[2018-09-03] MEDS: LEVETIRACETAM 500 MG/5 ML LIQUID UDC GT SCH ×2 (08:03→21:05)
[2018-09-03] MEDS: HEPARIN SODIUM,PORCINE 5,000 UNITS/ML VIAL SQ SCH ×2 (08:03→21:00)
[2018-09-03] MEDS: HYDROGEN PEROXIDE 3% 118 ML BOTTLE TP SCH ×2 (08:04→21:09)
[2018-09-03] MEDS: VITAMINS A AND D OINT TP SCH ×2 (08:04→21:09)
[2018-09-03] MEDS: BISACODYL 10 MG SUPP.RECT RC PRN (18:30)
[2018-09-03] MEDS: CHOLECALCIFEROL 1,000 UNIT TABLET GT SCH (21:05)
[2018-09-03] MEDS: FOLIC ACID 1 MG TABLET GT SCH (21:05)
[2018-09-03] MEDS: THIAMINE HCL 100 MG TABLET GT SCH (21:05)
[2018-09-03 22:00] VITALS: BP 114/54
[2018-09-04] MEDS: BACLOFEN 20 MG TABLET GT SCH ×3 (05:27→22:00)
[2018-09-04] MEDS: OMEPRAZOLE 20 MG CAPSULE.DR GT SCH (05:27)
[2018-09-04 08:00] VITALS: BP 105/53
[2018-09-04] MEDS: ACIDOPHILUS/BULGARICUS CHEW TAB GT SCH ×2 (08:19→20:45)
[2018-09-04] MEDS: DESMOPRESSIN 0.1 MG TABLET GT SCH (08:19)
[2018-09-04] MEDS: METHYLPHENIDATE HCL 5 MG TABLET GT SCH (08:21)
[2018-09-04] MEDS: LEVETIRACETAM 500 MG/5 ML LIQUID UDC GT SCH ×2 (08:21→20:45)
[2018-09-04] MEDS: VITAMINS A AND D OINT TP SCH ×2 (08:22→20:45)
[2018-09-04] MEDS: HYDROGEN PEROXIDE 3% 118 ML BOTTLE TP SCH ×2 (08:22→20:45)
[2018-09-04] MEDS: Z GUARD REMEDY PASTE 57 GM TUBE TOP SCH ×2 (08:22→20:45)
[2018-09-04] MEDS: COD LIVER OIL/ZINC OXIDE OINT 113 GM TUBE TP SCH ×2 (08:22→20:45)
[2018-09-04] MEDS: KETOCONAZOLE 2% SHAMPOO 120 ML BOTTLE TP SCH (08:22)
[2018-09-04] MEDS: HEPARIN SODIUM,PORCINE 5,000 UNITS/ML VIAL SQ SCH ×2 (08:22→20:51)
[2018-09-04] MEDS: VITAL AF 1.2 1,000 ML LIQUID GT PRN (17:25)
[2018-09-04] MEDS: THIAMINE HCL 100 MG TABLET GT SCH (20:45)
[2018-09-04] MEDS: CHOLECALCIFEROL 1,000 UNIT TABLET GT SCH (20:45)
[2018-09-04] MEDS: FOLIC ACID 1 MG TABLET GT SCH (20:45)
[2018-09-04 22:28] VITALS: BP 96/55
[2018-09-05] MEDS: BACLOFEN 20 MG TABLET GT SCH ×3 (05:55→21:53)
[2018-09-05] MEDS: OMEPRAZOLE 20 MG CAPSULE.DR GT SCH (05:55)
[2018-09-05] MEDS: HYDROGEN PEROXIDE 3% 118 ML BOTTLE TP SCH ×2 (09:20→21:53)
[2018-09-05] MEDS: VITAMINS A AND D OINT TP SCH ×2 (09:20→21:53)
[2018-09-05] MEDS: ACIDOPHILUS/BULGARICUS CHEW TAB GT SCH ×2 (09:20→21:51)
[2018-09-05] MEDS: COD LIVER OIL/ZINC OXIDE OINT 113 GM TUBE TP SCH ×2 (09:20→21:53)
[2018-09-05] MEDS: LEVETIRACETAM 500 MG/5 ML LIQUID UDC GT SCH ×2 (09:20→21:51)
[2018-09-05] MEDS: Z GUARD REMEDY PASTE 57 GM TUBE TOP SCH ×2 (09:20→21:52)
[2018-09-05] MEDS: METHYLPHENIDATE HCL 5 MG TABLET GT SCH (09:20)
[2018-09-05] MEDS: DESMOPRESSIN 0.1 MG TABLET GT SCH (09:20)
[2018-09-05] MEDS: HEPARIN SODIUM,PORCINE 5,000 UNITS/ML VIAL SQ SCH ×2 (09:21→21:55)
[2018-09-05 11:24] VITALS: BP 97/54
[2018-09-05] MEDS: VITAL AF 1.2 1,000 ML LIQUID GT PRN (14:15)
[2018-09-05] MEDS: THIAMINE HCL 100 MG TABLET GT SCH (21:51)
[2018-09-05] MEDS: FOLIC ACID 1 MG TABLET GT SCH (21:51)
[2018-09-05] MEDS: CHOLECALCIFEROL 1,000 UNIT TABLET GT SCH (21:52)
[2018-09-05 22:09] VITALS: BP 99/58
[2018-09-06] MEDS: OMEPRAZOLE 20 MG CAPSULE.DR GT SCH (05:29)
[2018-09-06] MEDS: BACLOFEN 20 MG TABLET GT SCH ×3 (05:29→21:34)
[2018-09-06] MEDS: VITAL AF 1.2 1,000 ML LIQUID GT PRN ×2 (07:06→14:09)
[2018-09-06] MEDS: METHYLPHENIDATE HCL 5 MG TABLET GT SCH (08:34)
[2018-09-06] MEDS: Z GUARD REMEDY PASTE 57 GM TUBE TOP SCH ×2 (08:34→21:34)
[2018-09-06] MEDS: VITAMINS A AND D OINT TP SCH ×2 (08:34→21:34)
[2018-09-06] MEDS: COD LIVER OIL/ZINC OXIDE OINT 113 GM TUBE TP SCH ×2 (08:34→21:34)
[2018-09-06] MEDS: ACIDOPHILUS/BULGARICUS CHEW TAB GT SCH ×2 (08:34→21:33)
[2018-09-06] MEDS: DESMOPRESSIN 0.1 MG TABLET GT SCH (08:34)
[2018-09-06] MEDS: HYDROGEN PEROXIDE 3% 118 ML BOTTLE TP SCH ×2 (08:34→21:34)
[2018-09-06] MEDS: LEVETIRACETAM 500 MG/5 ML LIQUID UDC GT SCH ×2 (08:34→21:33)
[2018-09-06] MEDS: HEPARIN SODIUM,PORCINE 5,000 UNITS/ML VIAL SQ SCH ×2 (08:35→21:31)
[2018-09-06 09:12] VITALS: BP 90/49
[2018-09-06 21:14] VITALS: BP 103/53
[2018-09-06] MEDS: FOLIC ACID 1 MG TABLET GT SCH (21:33)
[2018-09-06] MEDS: THIAMINE HCL 100 MG TABLET GT SCH (21:33)
[2018-09-06] MEDS: CHOLECALCIFEROL 1,000 UNIT TABLET GT SCH (21:34)
[2018-09-07] MEDS: VITAL AF 1.2 1,000 ML LIQUID GT PRN ×2 (01:54→21:59)
[2018-09-07] MEDS: BACLOFEN 20 MG TABLET GT SCH ×3 (05:08→21:53)
[2018-09-07] MEDS: OMEPRAZOLE 20 MG CAPSULE.DR GT SCH (05:08)
[2018-09-07] MEDS: ACIDOPHILUS/BULGARICUS CHEW TAB GT SCH ×2 (09:01→21:51)
[2018-09-07] MEDS: DESMOPRESSIN 0.1 MG TABLET GT SCH (09:01)
[2018-09-07] MEDS: LEVETIRACETAM 500 MG/5 ML LIQUID UDC GT SCH ×2 (09:01→21:52)
[2018-09-07] MEDS: METHYLPHENIDATE HCL 5 MG TABLET GT SCH (09:01)
[2018-09-07] MEDS: VITAMINS A AND D OINT TP SCH ×2 (09:02→21:53)
[2018-09-07] MEDS: COD LIVER OIL/ZINC OXIDE OINT 113 GM TUBE TP SCH ×2 (09:02→21:52)
[2018-09-07] MEDS: HYDROGEN PEROXIDE 3% 118 ML BOTTLE TP SCH ×2 (09:02→21:53)
[2018-09-07] MEDS: Z GUARD REMEDY PASTE 57 GM TUBE TOP SCH ×2 (09:02→21:52)
[2018-09-07] MEDS: HEPARIN SODIUM,PORCINE 5,000 UNITS/ML VIAL SQ SCH ×2 (09:06→21:56)
[2018-09-07 12:11] VITALS: BP 100/49
[2018-09-07 20:00] VITALS: BP 106/57
[2018-09-07] MEDS: FOLIC ACID 1 MG TABLET GT SCH (21:51)
[2018-09-07] MEDS: THIAMINE HCL 100 MG TABLET GT SCH (21:52)
[2018-09-07] MEDS: CHOLECALCIFEROL 1,000 UNIT TABLET GT SCH (21:52)
[2018-09-08] MEDS: BACLOFEN 20 MG TABLET GT SCH ×3 (05:18→21:46)
[2018-09-08] MEDS: OMEPRAZOLE 20 MG CAPSULE.DR GT SCH (05:18)
[2018-09-08] MEDS: DESMOPRESSIN 0.1 MG TABLET GT SCH (08:12)
[2018-09-08] MEDS: ACIDOPHILUS/BULGARICUS CHEW TAB GT SCH ×2 (08:12→20:28)
[2018-09-08] MEDS: Z GUARD REMEDY PASTE 57 GM TUBE TOP SCH ×2 (08:13→20:28)
[2018-09-08] MEDS: VITAMINS A AND D OINT TP SCH ×2 (08:13→20:29)
[2018-09-08] MEDS: KETOCONAZOLE 2% SHAMPOO 120 ML BOTTLE TP SCH (08:13)
[2018-09-08] MEDS: LEVETIRACETAM 500 MG/5 ML LIQUID UDC GT SCH ×2 (08:13→20:30)
[2018-09-08] MEDS: METHYLPHENIDATE HCL 5 MG TABLET GT SCH (08:13)
[2018-09-08] MEDS: HYDROGEN PEROXIDE 3% 118 ML BOTTLE TP SCH ×2 (08:13→20:29)
[2018-09-08] MEDS: COD LIVER OIL/ZINC OXIDE OINT 113 GM TUBE TP SCH ×2 (08:13→20:29)
[2018-09-08] MEDS: HEPARIN SODIUM,PORCINE 5,000 UNITS/ML VIAL SQ SCH ×2 (08:15→20:34)
[2018-09-08 13:26] VITALS: BP 88/50
[2018-09-08] MEDS: VITAL AF 1.2 1,000 ML LIQUID GT PRN (18:03)
[2018-09-08] MEDS: CHOLECALCIFEROL 1,000 UNIT TABLET GT SCH (20:28)
[2018-09-08] MEDS: FOLIC ACID 1 MG TABLET GT SCH (20:28)
[2018-09-08] MEDS: THIAMINE HCL 100 MG TABLET GT SCH (20:28)
[2018-09-08 22:14] VITALS: BP 101/57
[2018-09-09] MEDS: BACLOFEN 20 MG TABLET GT SCH ×3 (05:31→22:16)
[2018-09-09] MEDS: OMEPRAZOLE 20 MG CAPSULE.DR GT SCH (05:31)
[2018-09-09 07:57] VITALS: BP 97/51
[2018-09-09] MEDS: ACIDOPHILUS/BULGARICUS CHEW TAB GT SCH ×2 (08:25→20:21)
[2018-09-09] MEDS: DESMOPRESSIN 0.1 MG TABLET GT SCH (08:25)
[2018-09-09] MEDS: HEPARIN SODIUM,PORCINE 5,000 UNITS/ML VIAL SQ SCH ×2 (08:28→20:22)
[2018-09-09] MEDS: Z GUARD REMEDY PASTE 57 GM TUBE TOP SCH ×2 (08:28→20:21)
[2018-09-09] MEDS: LEVETIRACETAM 500 MG/5 ML LIQUID UDC GT SCH ×2 (08:28→20:21)
[2018-09-09] MEDS: METHYLPHENIDATE HCL 5 MG TABLET GT SCH (08:28)
[2018-09-09] MEDS: HYDROGEN PEROXIDE 3% 118 ML BOTTLE TP SCH ×2 (08:29→20:22)
[2018-09-09] MEDS: COD LIVER OIL/ZINC OXIDE OINT 113 GM TUBE TP SCH ×2 (08:29→20:22)
[2018-09-09] MEDS: VITAMINS A AND D OINT TP SCH ×2 (08:29→20:22)
[2018-09-09] MEDS: VITAL AF 1.2 1,000 ML LIQUID GT PRN (09:56)
[2018-09-09] MEDS: CHOLECALCIFEROL 1,000 UNIT TABLET GT SCH (20:21)
[2018-09-09] MEDS: THIAMINE HCL 100 MG TABLET GT SCH (20:21)
[2018-09-09] MEDS: FOLIC ACID 1 MG TABLET GT SCH (20:21)
[2018-09-09 23:00] VITALS: BP 105/55
[2018-09-10] MEDS: VITAL AF 1.2 1,000 ML LIQUID GT PRN (00:12)
[2018-09-10] MEDS: OMEPRAZOLE 20 MG CAPSULE.DR GT SCH (05:13)
[2018-09-10] MEDS: BACLOFEN 20 MG TABLET GT SCH ×3 (05:13→21:19)
[2018-09-10 07:59] VITALS: BP 95/51
[2018-09-10] MEDS: DESMOPRESSIN 0.1 MG TABLET GT SCH (08:15)
[2018-09-10] MEDS: HEPARIN SODIUM,PORCINE 5,000 UNITS/ML VIAL SQ SCH ×2 (08:16→21:19)
[2018-09-10] MEDS: Z GUARD REMEDY PASTE 57 GM TUBE TOP SCH ×2 (08:16→20:10)
[2018-09-10] MEDS: METHYLPHENIDATE HCL 5 MG TABLET GT SCH (08:16)
[2018-09-10] MEDS: LEVETIRACETAM 500 MG/5 ML LIQUID UDC GT SCH ×2 (08:16→20:10)
[2018-09-10] MEDS: HYDROGEN PEROXIDE 3% 118 ML BOTTLE TP SCH ×2 (08:16→20:10)
[2018-09-10] MEDS: ACIDOPHILUS/BULGARICUS CHEW TAB GT SCH ×2 (08:16→20:10)
[2018-09-10] MEDS: VITAMINS A AND D OINT TP SCH ×2 (08:16→20:10)
[2018-09-10] MEDS: COD LIVER OIL/ZINC OXIDE OINT 113 GM TUBE TP SCH ×2 (08:16→20:10)
[2018-09-10 20:08] VITALS: BP 100/51
[2018-09-10] MEDS: CHOLECALCIFEROL 1,000 UNIT TABLET GT SCH (20:10)
[2018-09-10] MEDS: THIAMINE HCL 100 MG TABLET GT SCH (20:10)
[2018-09-10] MEDS: FOLIC ACID 1 MG TABLET GT SCH (20:10)
[2018-09-11] MEDS: BACLOFEN 20 MG TABLET GT SCH ×3 (05:09→21:38)
[2018-09-11] MEDS: OMEPRAZOLE 20 MG CAPSULE.DR GT SCH (05:09)
[2018-09-11] MEDS: VITAL AF 1.2 1,000 ML LIQUID GT PRN ×2 (05:10→18:14)
[2018-09-11 08:00] VITALS: BP 115/74
[2018-09-11] MEDS: Z GUARD REMEDY PASTE 57 GM TUBE TOP SCH ×2 (08:58→21:38)
[2018-09-11] MEDS: ACIDOPHILUS/BULGARICUS CHEW TAB GT SCH ×2 (08:58→21:37)
[2018-09-11] MEDS: LEVETIRACETAM 500 MG/5 ML LIQUID UDC GT SCH ×2 (08:58→21:37)
[2018-09-11] MEDS: DESMOPRESSIN 0.1 MG TABLET GT SCH (08:58)
[2018-09-11] MEDS: HYDROGEN PEROXIDE 3% 118 ML BOTTLE TP SCH ×2 (08:58→21:38)
[2018-09-11] MEDS: VITAMINS A AND D OINT TP SCH ×2 (08:58→21:38)
[2018-09-11] MEDS: COD LIVER OIL/ZINC OXIDE OINT 113 GM TUBE TP SCH ×2 (08:58→21:38)
[2018-09-11] MEDS: KETOCONAZOLE 2% SHAMPOO 120 ML BOTTLE TP SCH (08:58)
[2018-09-11] MEDS: METHYLPHENIDATE HCL 5 MG TABLET GT SCH (08:58)
[2018-09-11] MEDS: HEPARIN SODIUM,PORCINE 5,000 UNITS/ML VIAL SQ SCH ×2 (09:02→21:35)
[2018-09-11 20:41] VITALS: BP 107/50
[2018-09-11] MEDS: FOLIC ACID 1 MG TABLET GT SCH (21:37)
[2018-09-11] MEDS: CHOLECALCIFEROL 1,000 UNIT TABLET GT SCH (21:38)
[2018-09-11] MEDS: THIAMINE HCL 100 MG TABLET GT SCH (21:38)
[2018-09-12] MEDS: BACLOFEN 20 MG TABLET GT SCH ×3 (05:05→21:00)
[2018-09-12] MEDS: OMEPRAZOLE 20 MG CAPSULE.DR GT SCH (05:05)
[2018-09-12 08:00] VITALS: BP 114/54
[2018-09-12] MEDS: METHYLPHENIDATE HCL 5 MG TABLET GT SCH (08:47)
[2018-09-12] MEDS: ACIDOPHILUS/BULGARICUS CHEW TAB GT SCH ×2 (08:47→20:59)
[2018-09-12] MEDS: LEVETIRACETAM 500 MG/5 ML LIQUID UDC GT SCH ×2 (08:47→20:59)
[2018-09-12] MEDS: Z GUARD REMEDY PASTE 57 GM TUBE TOP SCH ×2 (08:47→20:59)
[2018-09-12] MEDS: DESMOPRESSIN 0.1 MG TABLET GT SCH (08:47)
[2018-09-12] MEDS: COD LIVER OIL/ZINC OXIDE OINT 113 GM TUBE TP SCH ×2 (08:47→20:59)
[2018-09-12] MEDS: VITAMINS A AND D OINT TP SCH ×2 (08:48→21:00)
[2018-09-12] MEDS: HYDROGEN PEROXIDE 3% 118 ML BOTTLE TP SCH ×2 (08:48→20:59)
[2018-09-12] MEDS: HEPARIN SODIUM,PORCINE 5,000 UNITS/ML VIAL SQ SCH ×2 (08:48→20:52)
[2018-09-12] MEDS: VITAL AF 1.2 1,000 ML LIQUID GT PRN (17:05)
[2018-09-12] MEDS: FOLIC ACID 1 MG TABLET GT SCH (20:59)
[2018-09-12] MEDS: THIAMINE HCL 100 MG TABLET GT SCH (20:59)
[2018-09-12] MEDS: CHOLECALCIFEROL 1,000 UNIT TABLET GT SCH (20:59)
[2018-09-12 21:24] VITALS: BP 99/51
[2018-09-13] MEDS: BACLOFEN 20 MG TABLET GT SCH ×3 (06:05→21:02)
[2018-09-13] MEDS: OMEPRAZOLE 20 MG CAPSULE.DR GT SCH (06:05)
[2018-09-13 08:01] VITALS: BP 95/57
[2018-09-13] MEDS: DESMOPRESSIN 0.1 MG TABLET GT SCH (09:11)
[2018-09-13] MEDS: LEVETIRACETAM 500 MG/5 ML LIQUID UDC GT SCH ×2 (09:11→20:41)
[2018-09-13] MEDS: ACIDOPHILUS/BULGARICUS CHEW TAB GT SCH ×2 (09:11→20:41)
[2018-09-13] MEDS: METHYLPHENIDATE HCL 5 MG TABLET GT SCH (09:11)
[2018-09-13] MEDS: COD LIVER OIL/ZINC OXIDE OINT 113 GM TUBE TP SCH ×2 (09:12→20:42)
[2018-09-13] MEDS: HYDROGEN PEROXIDE 3% 118 ML BOTTLE TP SCH ×2 (09:12→20:42)
[2018-09-13] MEDS: VITAMINS A AND D OINT TP SCH ×2 (09:12→20:42)
[2018-09-13] MEDS: Z GUARD REMEDY PASTE 57 GM TUBE TOP SCH ×2 (09:12→20:42)
[2018-09-13] MEDS: HEPARIN SODIUM,PORCINE 5,000 UNITS/ML VIAL SQ SCH ×2 (09:13→20:35)
[2018-09-13] MEDS: VITAL AF 1.2 1,000 ML LIQUID GT PRN (11:43)
[2018-09-13 20:31] VITALS: BP 98/51
[2018-09-13] MEDS: FOLIC ACID 1 MG TABLET GT SCH (20:41)
[2018-09-13] MEDS: THIAMINE HCL 100 MG TABLET GT SCH (20:42)
[2018-09-13] MEDS: CHOLECALCIFEROL 1,000 UNIT TABLET GT SCH (20:42)
[2018-09-14] MEDS: VITAL AF 1.2 1,000 ML LIQUID GT PRN ×2 (03:18→22:00)
[2018-09-14] MEDS: OMEPRAZOLE 20 MG CAPSULE.DR GT SCH (06:38)
[2018-09-14] MEDS: BACLOFEN 20 MG TABLET GT SCH ×3 (06:38→22:22)
[2018-09-14] MEDS: ACIDOPHILUS/BULGARICUS CHEW TAB GT SCH ×2 (09:55→20:20)
[2018-09-14] MEDS: DESMOPRESSIN 0.1 MG TABLET GT SCH (09:55)
[2018-09-14] MEDS: LEVETIRACETAM 500 MG/5 ML LIQUID UDC GT SCH ×2 (09:55→20:21)
[2018-09-14] MEDS: METHYLPHENIDATE HCL 5 MG TABLET GT SCH (09:55)
[2018-09-14] MEDS: HEPARIN SODIUM,PORCINE 5,000 UNITS/ML VIAL SQ SCH ×2 (09:56→20:23)
[2018-09-14] MEDS: VITAMINS A AND D OINT TP SCH ×2 (09:56→20:23)
[2018-09-14] MEDS: HYDROGEN PEROXIDE 3% 118 ML BOTTLE TP SCH ×2 (09:56→20:23)
[2018-09-14] MEDS: Z GUARD REMEDY PASTE 57 GM TUBE TOP SCH ×2 (09:56→20:23)
[2018-09-14] MEDS: COD LIVER OIL/ZINC OXIDE OINT 113 GM TUBE TP SCH ×2 (09:56→20:23)
[2018-09-14 10:59] VITALS: BP 95/65
[2018-09-14] MEDS: FOLIC ACID 1 MG TABLET GT SCH (20:20)
[2018-09-14] MEDS: CHOLECALCIFEROL 1,000 UNIT TABLET GT SCH (20:21)
[2018-09-14] MEDS: THIAMINE HCL 100 MG TABLET GT SCH (20:21)
[2018-09-14 22:09] VITALS: BP 104/60
[2018-09-15] MEDS: BACLOFEN 20 MG TABLET GT SCH ×3 (05:50→22:32)
[2018-09-15] MEDS: OMEPRAZOLE 20 MG CAPSULE.DR GT SCH (05:50)
[2018-09-15] MEDS: DESMOPRESSIN 0.1 MG TABLET GT SCH (08:36)
[2018-09-15] MEDS: ACIDOPHILUS/BULGARICUS CHEW TAB GT SCH ×2 (08:37→20:25)
[2018-09-15] MEDS: Z GUARD REMEDY PASTE 57 GM TUBE TOP SCH ×2 (08:38→20:25)
[2018-09-15] MEDS: COD LIVER OIL/ZINC OXIDE OINT 113 GM TUBE TP SCH ×2 (08:38→20:25)
[2018-09-15] MEDS: LEVETIRACETAM 500 MG/5 ML LIQUID UDC GT SCH ×2 (08:38→20:25)
[2018-09-15] MEDS: METHYLPHENIDATE HCL 5 MG TABLET GT SCH (08:38)
[2018-09-15] MEDS: VITAMINS A AND D OINT TP SCH ×2 (08:38→20:26)
[2018-09-15] MEDS: HYDROGEN PEROXIDE 3% 118 ML BOTTLE TP SCH ×2 (08:38→20:26)
[2018-09-15] MEDS: KETOCONAZOLE 2% SHAMPOO 120 ML BOTTLE TP SCH (08:39)
[2018-09-15] MEDS: HEPARIN SODIUM,PORCINE 5,000 UNITS/ML VIAL SQ SCH ×2 (08:40→20:25)
[2018-09-15] MEDS: VITAL AF 1.2 1,000 ML LIQUID GT PRN (16:45)
[2018-09-15 20:00] VITALS: BP 96/50
[2018-09-15] MEDS: THIAMINE HCL 100 MG TABLET GT SCH (20:25)
[2018-09-15] MEDS: CHOLECALCIFEROL 1,000 UNIT TABLET GT SCH (20:25)
[2018-09-15] MEDS: FOLIC ACID 1 MG TABLET GT SCH (20:25)
[2018-09-16] MEDS: BACLOFEN 20 MG TABLET GT SCH ×3 (06:03→22:36)
[2018-09-16] MEDS: OMEPRAZOLE 20 MG CAPSULE.DR GT SCH (06:03)
[2018-09-16 08:00] VITALS: BP 82/39
[2018-09-16] MEDS: DESMOPRESSIN 0.1 MG TABLET GT SCH (09:00)
[2018-09-16] MEDS: VITAMINS A AND D OINT TP SCH ×2 (09:00→20:12)
[2018-09-16] MEDS: HYDROGEN PEROXIDE 3% 118 ML BOTTLE TP SCH ×2 (09:00→20:12)
[2018-09-16] MEDS: COD LIVER OIL/ZINC OXIDE OINT 113 GM TUBE TP SCH ×2 (09:00→20:12)
[2018-09-16] MEDS: ACIDOPHILUS/BULGARICUS CHEW TAB GT SCH ×2 (09:00→20:09)
[2018-09-16] MEDS: METHYLPHENIDATE HCL 5 MG TABLET GT SCH (09:00)
[2018-09-16] MEDS: Z GUARD REMEDY PASTE 57 GM TUBE TOP SCH ×2 (09:00→20:12)
[2018-09-16] MEDS: HEPARIN SODIUM,PORCINE 5,000 UNITS/ML VIAL SQ SCH ×2 (09:00→20:12)
[2018-09-16] MEDS: LEVETIRACETAM 500 MG/5 ML LIQUID UDC GT SCH ×2 (09:00→20:09)
[2018-09-16] MEDS: VITAL AF 1.2 1,000 ML LIQUID GT PRN (13:19)
[2018-09-16 20:00] VITALS: BP 110/56
[2018-09-16] MEDS: FOLIC ACID 1 MG TABLET GT SCH (20:09)
[2018-09-16] MEDS: CHOLECALCIFEROL 1,000 UNIT TABLET GT SCH (20:10)
[2018-09-16] MEDS: THIAMINE HCL 100 MG TABLET GT SCH (20:10)
[2018-09-17] MEDS: OMEPRAZOLE 20 MG CAPSULE.DR GT SCH (05:45)
[2018-09-17] MEDS: BACLOFEN 20 MG TABLET GT SCH ×3 (05:45→22:04)
[2018-09-17] MEDS: VITAL AF 1.2 1,000 ML LIQUID GT PRN (06:00)
[2018-09-17 08:00] VITALS: BP 91/48
[2018-09-17] MEDS: ACIDOPHILUS/BULGARICUS CHEW TAB GT SCH ×2 (08:43→20:25)
[2018-09-17] MEDS: DESMOPRESSIN 0.1 MG TABLET GT SCH (08:43)
[2018-09-17] MEDS: LEVETIRACETAM 500 MG/5 ML LIQUID UDC GT SCH ×2 (08:43→20:26)
[2018-09-17] MEDS: Z GUARD REMEDY PASTE 57 GM TUBE TOP SCH ×2 (08:44→20:26)
[2018-09-17] MEDS: METHYLPHENIDATE HCL 5 MG TABLET GT SCH (08:44)
[2018-09-17] MEDS: COD LIVER OIL/ZINC OXIDE OINT 113 GM TUBE TP SCH ×2 (08:44→20:26)
[2018-09-17] MEDS: VITAMINS A AND D OINT TP SCH ×2 (08:45→20:26)
[2018-09-17] MEDS: HYDROGEN PEROXIDE 3% 118 ML BOTTLE TP SCH ×2 (08:45→20:26)
[2018-09-17] MEDS: HEPARIN SODIUM,PORCINE 5,000 UNITS/ML VIAL SQ SCH ×2 (08:47→21:11)
[2018-09-17 20:00] VITALS: BP 112/47
[2018-09-17] MEDS: FOLIC ACID 1 MG TABLET GT SCH (20:25)
[2018-09-17] MEDS: THIAMINE HCL 100 MG TABLET GT SCH (20:26)
[2018-09-17] MEDS: CHOLECALCIFEROL 1,000 UNIT TABLET GT SCH (20:26)
[2018-09-18] MEDS: VITAL AF 1.2 1,000 ML LIQUID GT PRN (01:36)
[2018-09-18] MEDS: BACLOFEN 20 MG TABLET GT SCH ×3 (06:08→22:14)
[2018-09-18] MEDS: OMEPRAZOLE 20 MG CAPSULE.DR GT SCH (06:08)
[2018-09-18 08:02] VITALS: BP 95/56
[2018-09-18] MEDS: DESMOPRESSIN 0.1 MG TABLET GT SCH (08:50)
[2018-09-18] MEDS: ACIDOPHILUS/BULGARICUS CHEW TAB GT SCH ×2 (08:50→20:51)
[2018-09-18] MEDS: LEVETIRACETAM 500 MG/5 ML LIQUID UDC GT SCH ×2 (08:51→20:51)
[2018-09-18] MEDS: METHYLPHENIDATE HCL 5 MG TABLET GT SCH (08:51)
[2018-09-18] MEDS: HYDROGEN PEROXIDE 3% 118 ML BOTTLE TP SCH ×2 (08:52→20:52)
[2018-09-18] MEDS: VITAMINS A AND D OINT TP SCH ×2 (08:52→20:52)
[2018-09-18] MEDS: Z GUARD REMEDY PASTE 57 GM TUBE TOP SCH ×2 (08:52→20:51)
[2018-09-18] MEDS: COD LIVER OIL/ZINC OXIDE OINT 113 GM TUBE TP SCH ×2 (08:52→20:52)
[2018-09-18] MEDS: KETOCONAZOLE 2% SHAMPOO 120 ML BOTTLE TP SCH (08:53)
[2018-09-18] MEDS: HEPARIN SODIUM,PORCINE 5,000 UNITS/ML VIAL SQ SCH ×2 (08:54→21:00)
[2018-09-18 20:00] VITALS: BP 101/55
[2018-09-18] MEDS: FOLIC ACID 1 MG TABLET GT SCH (20:51)
[2018-09-18] MEDS: CHOLECALCIFEROL 1,000 UNIT TABLET GT SCH (20:51)
[2018-09-18] MEDS: THIAMINE HCL 100 MG TABLET GT SCH (20:51)
[2018-09-19] MEDS: BACLOFEN 20 MG TABLET GT SCH ×3 (05:14→22:28)
[2018-09-19] MEDS: OMEPRAZOLE 20 MG CAPSULE.DR GT SCH (05:15)
[2018-09-19] MEDS: COD LIVER OIL/ZINC OXIDE OINT 113 GM TUBE TP SCH ×2 (09:00→20:47)
[2018-09-19] MEDS: HYDROGEN PEROXIDE 3% 118 ML BOTTLE TP SCH ×2 (09:00→20:47)
[2018-09-19] MEDS: ACIDOPHILUS/BULGARICUS CHEW TAB GT SCH ×2 (09:00→20:47)
[2018-09-19] MEDS: Z GUARD REMEDY PASTE 57 GM TUBE TOP SCH ×2 (09:00→20:47)
[2018-09-19] MEDS: VITAMINS A AND D OINT TP SCH ×2 (09:00→20:47)
[2018-09-19] MEDS: METHYLPHENIDATE HCL 5 MG TABLET GT SCH (09:00)
[2018-09-19] MEDS: LEVETIRACETAM 500 MG/5 ML LIQUID UDC GT SCH ×2 (09:00→20:47)
[2018-09-19] MEDS: DESMOPRESSIN 0.1 MG TABLET GT SCH (10:08)
[2018-09-19 11:19] VITALS: BP 101/50
[2018-09-19 11:26] VITALS: BP 110/61
[2018-09-19 20:41] VITALS: BP 106/59
[2018-09-19] MEDS: FOLIC ACID 1 MG TABLET GT SCH (20:47)
[2018-09-19] MEDS: THIAMINE HCL 100 MG TABLET GT SCH (20:47)
[2018-09-19] MEDS: CHOLECALCIFEROL 1,000 UNIT TABLET GT SCH (20:47)
[2018-09-20] MEDS: OMEPRAZOLE 20 MG CAPSULE.DR GT SCH (06:50)
[2018-09-20] MEDS: BACLOFEN 20 MG TABLET GT SCH ×3 (06:50→22:58)
[2018-09-20] MEDS: DESMOPRESSIN 0.1 MG TABLET GT SCH (08:14)
[2018-09-20] MEDS: ACIDOPHILUS/BULGARICUS CHEW TAB GT SCH ×2 (08:15→20:26)
[2018-09-20] MEDS: LEVETIRACETAM 500 MG/5 ML LIQUID UDC GT SCH ×2 (08:15→20:26)
[2018-09-20] MEDS: HYDROGEN PEROXIDE 3% 118 ML BOTTLE TP SCH ×2 (08:16→20:27)
[2018-09-20] MEDS: VITAMINS A AND D OINT TP SCH ×2 (08:16→20:27)
[2018-09-20] MEDS: COD LIVER OIL/ZINC OXIDE OINT 113 GM TUBE TP SCH ×2 (08:16→20:27)
[2018-09-20] MEDS: Z GUARD REMEDY PASTE 57 GM TUBE TOP SCH ×2 (08:16→20:27)
[2018-09-20] MEDS: METHYLPHENIDATE HCL 5 MG TABLET GT SCH (08:19)
[2018-09-20 09:00] VITALS: BP 105/60
[2018-09-20] MEDS: NYSTATIN CREAM 30 GM TUBE TP SCH ×2 (09:51→20:27)
[2018-09-20] MEDS: VITAL AF 1.2 1,000 ML LIQUID GT PRN (13:08)
[2018-09-20 16:09] LABS: BASOPHILS # (AUTO) 0.1 K/uL (0.0-8.0); BASOPHILS % (AUTO) 1.1 % (0.0-2.0); EOSINOPHILS # (AUTO) 0.3 K/uL (0.0-0.7); EOSINOPHILS % (AUTO) 4.5 % (0.0-7.0); HEMATOCRIT 27.3 % (31.2-41.9); HEMOGLOBIN 9.3 g/dL (10.9-14.3); LYMPHOCYTES # (AUTO) 2.2 K/uL (20.0-40.0); LYMPHOCYTES % (AUTO) 37.2 % (20.5-51.5); MEAN CORPUSCULAR HEMOGLOBIN 31.9 uug (24.7-32.8); MEAN CORPUSCULAR HGB CONC 34 g/dL (32.3-35.6); MEAN CORPUSCULAR VOLUME 93.9 fL (75.5-95.3); MONOCYTES # (AUTO) 0.5 K/uL (2.0-10.0); MONOCYTES % (AUTO) 9.2 % (0.0-11.0); NEUTROPHILS # (AUTO) 2.8 K/uL (1.8-8.9); PLATELET COUNT (AUTO) 192 K/uL (179-408); RED BLOOD CELL COUNT(AUTO) 2.91 MIL/uL (3.63-4.92); WHITE BLOOD COUNT (AUTO) 5.9 K/uL (3.8-11.8)
[2018-09-20 16:15] LABS: CARBON DIOXIDE 27 mmol/L (21-32); CHLORIDE 102 mmol/L (98-107); CREATININE 0.4 mg/dL (0.6-1.3); GLUCOSE 101 mg/dL (74-106); UREA NITROGEN, BLOOD 24 mg/dL (7-18)
[2018-09-20] MEDS: CHOLECALCIFEROL 1,000 UNIT TABLET GT SCH (20:26)
[2018-09-20] MEDS: FOLIC ACID 1 MG TABLET GT SCH (20:26)
[2018-09-20] MEDS: THIAMINE HCL 100 MG TABLET GT SCH (20:26)
[2018-09-20 20:31] VITALS: BP 120/53
[2018-09-21] MEDS: VITAL AF 1.2 1,000 ML LIQUID GT PRN (05:00)
[2018-09-21] MEDS: BACLOFEN 20 MG TABLET GT SCH ×3 (06:59→21:02)
[2018-09-21] MEDS: OMEPRAZOLE 20 MG CAPSULE.DR GT SCH (06:59)
[2018-09-21] MEDS: DESMOPRESSIN 0.1 MG TABLET GT SCH (09:34)
[2018-09-21] MEDS: ACIDOPHILUS/BULGARICUS CHEW TAB GT SCH ×2 (09:35→20:51)
[2018-09-21] MEDS: METHYLPHENIDATE HCL 5 MG TABLET GT SCH (09:35)
[2018-09-21] MEDS: LEVETIRACETAM 500 MG/5 ML LIQUID UDC GT SCH ×2 (09:35→20:51)
[2018-09-21] MEDS: Z GUARD REMEDY PASTE 57 GM TUBE TOP SCH ×2 (09:36→20:52)
[2018-09-21] MEDS: COD LIVER OIL/ZINC OXIDE OINT 113 GM TUBE TP SCH ×2 (09:36→20:52)
[2018-09-21] MEDS: NYSTATIN CREAM 30 GM TUBE TP SCH ×2 (09:37→20:52)
[2018-09-21] MEDS: VITAMINS A AND D OINT TP SCH ×2 (09:37→20:52)
[2018-09-21] MEDS: HYDROGEN PEROXIDE 3% 118 ML BOTTLE TP SCH ×2 (09:37→20:52)
[2018-09-21 11:35] VITALS: BP 105/55
[2018-09-21 20:25] VITALS: BP 105/48
[2018-09-21] MEDS: THIAMINE HCL 100 MG TABLET GT SCH (20:51)
[2018-09-21] MEDS: CHOLECALCIFEROL 1,000 UNIT TABLET GT SCH (20:51)
[2018-09-21] MEDS: FOLIC ACID 1 MG TABLET GT SCH (20:51)
[2018-09-21] MEDS: HEPARIN SODIUM,PORCINE 5,000 UNITS/ML VIAL SQ SCH (20:51)
[2018-09-22] MEDS: BACLOFEN 20 MG TABLET GT SCH ×3 (06:11→22:48)
[2018-09-22] MEDS: OMEPRAZOLE 20 MG CAPSULE.DR GT SCH (06:11)
[2018-09-22 08:00] VITALS: BP 106/63
[2018-09-22] MEDS: DESMOPRESSIN 0.1 MG TABLET GT SCH (08:19)
[2018-09-22] MEDS: HEPARIN SODIUM,PORCINE 5,000 UNITS/ML VIAL SQ SCH ×2 (08:20→20:43)
[2018-09-22] MEDS: ACIDOPHILUS/BULGARICUS CHEW TAB GT SCH ×2 (08:20→20:36)
[2018-09-22] MEDS: LEVETIRACETAM 500 MG/5 ML LIQUID UDC GT SCH ×2 (08:20→20:37)
[2018-09-22] MEDS: METHYLPHENIDATE HCL 5 MG TABLET GT SCH (08:20)
[2018-09-22] MEDS: HYDROGEN PEROXIDE 3% 118 ML BOTTLE TP SCH ×2 (08:21→20:45)
[2018-09-22] MEDS: Z GUARD REMEDY PASTE 57 GM TUBE TOP SCH ×2 (08:21→20:44)
[2018-09-22] MEDS: COD LIVER OIL/ZINC OXIDE OINT 113 GM TUBE TP SCH ×2 (08:21→20:44)
[2018-09-22] MEDS: KETOCONAZOLE 2% SHAMPOO 120 ML BOTTLE TP SCH (08:22)
[2018-09-22] MEDS: NYSTATIN CREAM 30 GM TUBE TP SCH ×2 (08:22→20:45)
[2018-09-22] MEDS: VITAMINS A AND D OINT TP SCH ×2 (08:22→20:45)
[2018-09-22] MEDS: FOLIC ACID 1 MG TABLET GT SCH (20:36)
[2018-09-22] MEDS: THIAMINE HCL 100 MG TABLET GT SCH (20:37)
[2018-09-22] MEDS: CHOLECALCIFEROL 1,000 UNIT TABLET GT SCH (20:39)
[2018-09-22] MEDS: VITAL AF 1.2 1,000 ML LIQUID GT PRN (20:50)
[2018-09-22 21:14] VITALS: BP 100/42
[2018-09-23] MEDS: BACLOFEN 20 MG TABLET GT SCH ×3 (06:05→21:01)
[2018-09-23] MEDS: OMEPRAZOLE 20 MG CAPSULE.DR GT SCH (06:05)
[2018-09-23 08:00] VITALS: BP 118/59
[2018-09-23] MEDS: Z GUARD REMEDY PASTE 57 GM TUBE TOP SCH ×2 (08:16→20:58)
[2018-09-23] MEDS: DESMOPRESSIN 0.1 MG TABLET GT SCH (08:16)
[2018-09-23] MEDS: METHYLPHENIDATE HCL 5 MG TABLET GT SCH (08:16)
[2018-09-23] MEDS: ACIDOPHILUS/BULGARICUS CHEW TAB GT SCH ×2 (08:16→20:55)
[2018-09-23] MEDS: COD LIVER OIL/ZINC OXIDE OINT 113 GM TUBE TP SCH ×2 (08:16→20:58)
[2018-09-23] MEDS: LEVETIRACETAM 500 MG/5 ML LIQUID UDC GT SCH ×2 (08:16→20:55)
[2018-09-23] MEDS: HYDROGEN PEROXIDE 3% 118 ML BOTTLE TP SCH ×2 (08:16→20:59)
[2018-09-23] MEDS: NYSTATIN CREAM 30 GM TUBE TP SCH ×2 (08:17→20:59)
[2018-09-23] MEDS: HEPARIN SODIUM,PORCINE 5,000 UNITS/ML VIAL SQ SCH ×2 (08:17→20:59)
[2018-09-23] MEDS: VITAMINS A AND D OINT TP SCH ×2 (08:17→20:59)
[2018-09-23] MEDS: VITAL AF 1.2 1,000 ML LIQUID GT PRN (16:50)
[2018-09-23] MEDS: FOLIC ACID 1 MG TABLET GT SCH (20:55)
[2018-09-23] MEDS: CHOLECALCIFEROL 1,000 UNIT TABLET GT SCH (20:56)
[2018-09-23] MEDS: THIAMINE HCL 100 MG TABLET GT SCH (20:56)
[2018-09-24] VITALS: BP 96/54
[2018-09-24] MEDS: BACLOFEN 20 MG TABLET GT SCH ×3 (06:03→22:36)
[2018-09-24] MEDS: OMEPRAZOLE 20 MG CAPSULE.DR GT SCH (06:03)
[2018-09-24] MEDS: DESMOPRESSIN 0.1 MG TABLET GT SCH (08:29)
[2018-09-24] MEDS: ACIDOPHILUS/BULGARICUS CHEW TAB GT SCH ×2 (08:29→20:10)
[2018-09-24] MEDS: LEVETIRACETAM 500 MG/5 ML LIQUID UDC GT SCH ×2 (08:30→20:13)
[2018-09-24] MEDS: METHYLPHENIDATE HCL 5 MG TABLET GT SCH (08:30)
[2018-09-24] MEDS: HEPARIN SODIUM,PORCINE 5,000 UNITS/ML VIAL SQ SCH ×2 (08:30→20:14)
[2018-09-24] MEDS: Z GUARD REMEDY PASTE 57 GM TUBE TOP SCH ×2 (08:31→20:14)
[2018-09-24] MEDS: VITAMINS A AND D OINT TP SCH ×2 (08:31→20:14)
[2018-09-24] MEDS: HYDROGEN PEROXIDE 3% 118 ML BOTTLE TP SCH ×2 (08:31→20:14)
[2018-09-24] MEDS: NYSTATIN CREAM 30 GM TUBE TP SCH ×2 (08:31→20:14)
[2018-09-24] MEDS: COD LIVER OIL/ZINC OXIDE OINT 113 GM TUBE TP SCH ×2 (08:31→20:14)
[2018-09-24 09:26] VITALS: BP 110/60
[2018-09-24] MEDS: VITAL AF 1.2 1,000 ML LIQUID GT PRN (10:45)
[2018-09-24] MEDS: FOLIC ACID 1 MG TABLET GT SCH (20:12)
[2018-09-24] MEDS: THIAMINE HCL 100 MG TABLET GT SCH (20:15)
[2018-09-24] MEDS: CHOLECALCIFEROL 1,000 UNIT TABLET GT SCH (20:16)
[2018-09-24 23:17] VITALS: BP 105/60
[2018-09-25] MEDS: OMEPRAZOLE 20 MG CAPSULE.DR GT SCH (05:57)
[2018-09-25] MEDS: BACLOFEN 20 MG TABLET GT SCH ×3 (05:57→21:45)
[2018-09-25] MEDS: Z GUARD REMEDY PASTE 57 GM TUBE TOP SCH ×2 (08:42→20:49)
[2018-09-25] MEDS: METHYLPHENIDATE HCL 5 MG TABLET GT SCH (08:42)
[2018-09-25] MEDS: LEVETIRACETAM 500 MG/5 ML LIQUID UDC GT SCH ×2 (08:42→20:50)
[2018-09-25] MEDS: DESMOPRESSIN 0.1 MG TABLET GT SCH (08:42)
[2018-09-25] MEDS: VITAMINS A AND D OINT TP SCH ×2 (08:42→20:49)
[2018-09-25] MEDS: KETOCONAZOLE 2% SHAMPOO 120 ML BOTTLE TP SCH (08:42)
[2018-09-25] MEDS: HYDROGEN PEROXIDE 3% 118 ML BOTTLE TP SCH ×2 (08:42→20:49)
[2018-09-25] MEDS: COD LIVER OIL/ZINC OXIDE OINT 113 GM TUBE TP SCH ×2 (08:42→20:49)
[2018-09-25] MEDS: ACIDOPHILUS/BULGARICUS CHEW TAB GT SCH ×2 (08:42→20:47)
[2018-09-25] MEDS: NYSTATIN CREAM 30 GM TUBE TP SCH ×2 (08:42→20:49)
[2018-09-25] MEDS: HEPARIN SODIUM,PORCINE 5,000 UNITS/ML VIAL SQ SCH ×2 (08:56→20:49)
[2018-09-25 10:47] VITALS: BP 106/46
[2018-09-25 20:08] VITALS: BP 110/54
[2018-09-25] MEDS: CHOLECALCIFEROL 1,000 UNIT TABLET GT SCH (20:47)
[2018-09-25] MEDS: FOLIC ACID 1 MG TABLET GT SCH (20:47)
[2018-09-25] MEDS: THIAMINE HCL 100 MG TABLET GT SCH (20:47)
[2018-09-26] MEDS: VITAL AF 1.2 1,000 ML LIQUID GT PRN ×2 (00:17→18:47)
[2018-09-26] MEDS: OMEPRAZOLE 20 MG CAPSULE.DR GT SCH (05:06)
[2018-09-26] MEDS: BACLOFEN 20 MG TABLET GT SCH ×3 (05:06→22:20)
[2018-09-26 08:00] VITALS: BP 115/63
[2018-09-26] MEDS: DESMOPRESSIN 0.1 MG TABLET GT SCH (09:18)
[2018-09-26] MEDS: ACIDOPHILUS/BULGARICUS CHEW TAB GT SCH ×2 (09:18→20:16)
[2018-09-26] MEDS: LEVETIRACETAM 500 MG/5 ML LIQUID UDC GT SCH ×2 (09:18→20:16)
[2018-09-26] MEDS: METHYLPHENIDATE HCL 5 MG TABLET GT SCH (09:18)
[2018-09-26] MEDS: Z GUARD REMEDY PASTE 57 GM TUBE TOP SCH ×2 (09:19→20:18)
[2018-09-26] MEDS: COD LIVER OIL/ZINC OXIDE OINT 113 GM TUBE TP SCH ×2 (09:19→20:18)
[2018-09-26] MEDS: HEPARIN SODIUM,PORCINE 5,000 UNITS/ML VIAL SQ SCH ×2 (09:19→20:23)
[2018-09-26] MEDS: VITAMINS A AND D OINT TP SCH ×2 (09:20→20:19)
[2018-09-26] MEDS: HYDROGEN PEROXIDE 3% 118 ML BOTTLE TP SCH ×2 (09:20→20:18)
[2018-09-26] MEDS: NYSTATIN CREAM 30 GM TUBE TP SCH ×2 (09:20→20:19)
[2018-09-26] MEDS: FOLIC ACID 1 MG TABLET GT SCH (20:16)
[2018-09-26] MEDS: THIAMINE HCL 100 MG TABLET GT SCH (20:17)
[2018-09-26] MEDS: CHOLECALCIFEROL 1,000 UNIT TABLET GT SCH (20:18)
[2018-09-26 23:00] VITALS: BP 93/53
[2018-09-27] MEDS: OMEPRAZOLE 20 MG CAPSULE.DR GT SCH (05:44)
[2018-09-27] MEDS: BACLOFEN 20 MG TABLET GT SCH ×3 (05:44→22:45)
[2018-09-27 08:00] VITALS: BP 112/68
[2018-09-27] MEDS: HEPARIN SODIUM,PORCINE 5,000 UNITS/ML VIAL SQ SCH ×2 (08:32→20:27)
[2018-09-27] MEDS: ACIDOPHILUS/BULGARICUS CHEW TAB GT SCH ×2 (08:39→20:29)
[2018-09-27] MEDS: LEVETIRACETAM 500 MG/5 ML LIQUID UDC GT SCH ×2 (08:39→20:29)
[2018-09-27] MEDS: METHYLPHENIDATE HCL 5 MG TABLET GT SCH (08:39)
[2018-09-27] MEDS: COD LIVER OIL/ZINC OXIDE OINT 113 GM TUBE TP SCH ×2 (08:39→20:31)
[2018-09-27] MEDS: HYDROGEN PEROXIDE 3% 118 ML BOTTLE TP SCH ×2 (08:39→20:31)
[2018-09-27] MEDS: Z GUARD REMEDY PASTE 57 GM TUBE TOP SCH ×2 (08:39→20:31)
[2018-09-27] MEDS: DESMOPRESSIN 0.1 MG TABLET GT SCH (08:39)
[2018-09-27] MEDS: NYSTATIN CREAM 30 GM TUBE TP SCH ×2 (08:40→20:31)
[2018-09-27] MEDS: VITAMINS A AND D OINT TP SCH ×2 (08:40→20:31)
[2018-09-27] MEDS: VITAL AF 1.2 1,000 ML LIQUID GT PRN (14:17)
[2018-09-27] MEDS: FOLIC ACID 1 MG TABLET GT SCH (20:29)
[2018-09-27] MEDS: CHOLECALCIFEROL 1,000 UNIT TABLET GT SCH (20:30)
[2018-09-27] MEDS: THIAMINE HCL 100 MG TABLET GT SCH (20:30)
[2018-09-27 20:48] VITALS: BP 117/70
[2018-09-28] MEDS: BACLOFEN 20 MG TABLET GT SCH ×3 (05:03→21:33)
[2018-09-28] MEDS: OMEPRAZOLE 20 MG CAPSULE.DR GT SCH (05:03)
[2018-09-28] MEDS: VITAL AF 1.2 1,000 ML LIQUID GT PRN (07:00)
[2018-09-28 08:00] VITALS: BP 101/65
[2018-09-28] MEDS: HYDROGEN PEROXIDE 3% 118 ML BOTTLE TP SCH ×2 (08:13→21:33)
[2018-09-28] MEDS: DESMOPRESSIN 0.1 MG TABLET GT SCH (08:13)
[2018-09-28] MEDS: METHYLPHENIDATE HCL 5 MG TABLET GT SCH (08:13)
[2018-09-28] MEDS: Z GUARD REMEDY PASTE 57 GM TUBE TOP SCH ×2 (08:13→21:33)
[2018-09-28] MEDS: ACIDOPHILUS/BULGARICUS CHEW TAB GT SCH ×2 (08:13→21:32)
[2018-09-28] MEDS: LEVETIRACETAM 500 MG/5 ML LIQUID UDC GT SCH ×2 (08:13→21:32)
[2018-09-28] MEDS: COD LIVER OIL/ZINC OXIDE OINT 113 GM TUBE TP SCH ×2 (08:13→21:33)
[2018-09-28] MEDS: VITAMINS A AND D OINT TP SCH ×2 (08:14→21:33)
[2018-09-28] MEDS: HEPARIN SODIUM,PORCINE 5,000 UNITS/ML VIAL SQ SCH ×2 (08:14→21:32)
[2018-09-28] MEDS: NYSTATIN CREAM 30 GM TUBE TP SCH ×2 (08:14→21:33)
[2018-09-28 20:32] VITALS: BP 101/50
[2018-09-28] MEDS: FOLIC ACID 1 MG TABLET GT SCH (21:32)
[2018-09-28] MEDS: THIAMINE HCL 100 MG TABLET GT SCH (21:33)
[2018-09-28] MEDS: CHOLECALCIFEROL 1,000 UNIT TABLET GT SCH (21:33)
[2018-09-29] MEDS: VITAL AF 1.2 1,000 ML LIQUID GT PRN ×2 (01:11→21:14)
[2018-09-29] MEDS: BACLOFEN 20 MG TABLET GT SCH ×3 (05:06→21:10)
[2018-09-29] MEDS: OMEPRAZOLE 20 MG CAPSULE.DR GT SCH (05:06)
[2018-09-29 08:01] VITALS: BP 95/53
[2018-09-29] MEDS: HEPARIN SODIUM,PORCINE 5,000 UNITS/ML VIAL SQ SCH ×2 (08:27→21:13)
[2018-09-29] MEDS: DESMOPRESSIN 0.1 MG TABLET GT SCH (08:33)
[2018-09-29] MEDS: ACIDOPHILUS/BULGARICUS CHEW TAB GT SCH ×2 (08:33→20:15)
[2018-09-29] MEDS: HYDROGEN PEROXIDE 3% 118 ML BOTTLE TP SCH ×2 (08:34→20:16)
[2018-09-29] MEDS: LEVETIRACETAM 500 MG/5 ML LIQUID UDC GT SCH ×2 (08:34→20:15)
[2018-09-29] MEDS: METHYLPHENIDATE HCL 5 MG TABLET GT SCH (08:34)
[2018-09-29] MEDS: COD LIVER OIL/ZINC OXIDE OINT 113 GM TUBE TP SCH ×2 (08:34→20:16)
[2018-09-29] MEDS: NYSTATIN CREAM 30 GM TUBE TP SCH ×2 (08:34→20:16)
[2018-09-29] MEDS: Z GUARD REMEDY PASTE 57 GM TUBE TOP SCH ×2 (08:34→20:16)
[2018-09-29] MEDS: VITAMINS A AND D OINT TP SCH ×2 (08:36→20:16)
[2018-09-29] MEDS: KETOCONAZOLE 2% SHAMPOO 120 ML BOTTLE TP SCH (08:36)
[2018-09-29] MEDS: THIAMINE HCL 100 MG TABLET GT SCH (20:15)
[2018-09-29] MEDS: CHOLECALCIFEROL 1,000 UNIT TABLET GT SCH (20:15)
[2018-09-29] MEDS: FOLIC ACID 1 MG TABLET GT SCH (20:15)
[2018-09-29 20:16] VITALS: BP 112/63
[2018-09-30] MEDS: OMEPRAZOLE 20 MG CAPSULE.DR GT SCH (05:33)
[2018-09-30] MEDS: BACLOFEN 20 MG TABLET GT SCH ×3 (05:33→22:01)
[2018-09-30] MEDS: ACIDOPHILUS/BULGARICUS CHEW TAB GT SCH ×2 (08:29→20:24)
[2018-09-30] MEDS: DESMOPRESSIN 0.1 MG TABLET GT SCH (08:29)
[2018-09-30] MEDS: HYDROGEN PEROXIDE 3% 118 ML BOTTLE TP SCH ×2 (08:29→20:28)
[2018-09-30] MEDS: VITAMINS A AND D OINT TP SCH ×2 (08:29→20:29)
[2018-09-30] MEDS: COD LIVER OIL/ZINC OXIDE OINT 113 GM TUBE TP SCH ×2 (08:29→20:28)
[2018-09-30] MEDS: METHYLPHENIDATE HCL 5 MG TABLET GT SCH (08:29)
[2018-09-30] MEDS: LEVETIRACETAM 500 MG/5 ML LIQUID UDC GT SCH ×2 (08:29→20:26)
[2018-09-30] MEDS: Z GUARD REMEDY PASTE 57 GM TUBE TOP SCH ×2 (08:29→20:28)
[2018-09-30] MEDS: HEPARIN SODIUM,PORCINE 5,000 UNITS/ML VIAL SQ SCH ×2 (08:30→20:27)
[2018-09-30 14:46] VITALS: BP 96/57
[2018-09-30] MEDS: FOLIC ACID 1 MG TABLET GT SCH (20:25)
[2018-09-30] MEDS: THIAMINE HCL 100 MG TABLET GT SCH (20:26)
[2018-09-30] MEDS: CHOLECALCIFEROL 1,000 UNIT TABLET GT SCH (20:26)
[2018-09-30 20:39] VITALS: BP 120/62
[2018-10-01] MEDS: OMEPRAZOLE 20 MG CAPSULE.DR GT SCH (05:15)
[2018-10-01] MEDS: BACLOFEN 20 MG TABLET GT SCH ×3 (05:15→21:17)
[2018-10-01] MEDS: DESMOPRESSIN 0.1 MG TABLET GT SCH (08:00)
[2018-10-01] MEDS: HEPARIN SODIUM,PORCINE 5,000 UNITS/ML VIAL SQ SCH ×2 (08:01→21:17)
[2018-10-01] MEDS: Z GUARD REMEDY PASTE 57 GM TUBE TOP SCH ×2 (08:01→20:35)
[2018-10-01] MEDS: COD LIVER OIL/ZINC OXIDE OINT 113 GM TUBE TP SCH ×2 (08:01→20:35)
[2018-10-01] MEDS: HYDROGEN PEROXIDE 3% 118 ML BOTTLE TP SCH ×2 (08:01→20:35)
[2018-10-01] MEDS: VITAMINS A AND D OINT TP SCH ×2 (08:01→20:35)
[2018-10-01] MEDS: METHYLPHENIDATE HCL 5 MG TABLET GT SCH (08:02)
[2018-10-01] MEDS: LEVETIRACETAM 500 MG/5 ML LIQUID UDC GT SCH ×2 (08:02→20:33)
[2018-10-01] MEDS: ACIDOPHILUS/BULGARICUS CHEW TAB GT SCH ×2 (08:02→20:33)
[2018-10-01 10:41] VITALS: BP 91/58
[2018-10-01 20:00] VITALS: BP 100/62
[2018-10-01] MEDS: FOLIC ACID 1 MG TABLET GT SCH (20:33)
[2018-10-01] MEDS: CHOLECALCIFEROL 1,000 UNIT TABLET GT SCH (20:34)
[2018-10-01] MEDS: THIAMINE HCL 100 MG TABLET GT SCH (20:34)
[2018-10-02] MEDS: OMEPRAZOLE 20 MG CAPSULE.DR GT SCH (05:44)
[2018-10-02] MEDS: BACLOFEN 20 MG TABLET GT SCH ×3 (05:44→22:35)
[2018-10-02] MEDS: DESMOPRESSIN 0.1 MG TABLET GT SCH (08:28)
[2018-10-02] MEDS: ACIDOPHILUS/BULGARICUS CHEW TAB GT SCH ×2 (08:28→20:47)
[2018-10-02] MEDS: METHYLPHENIDATE HCL 5 MG TABLET GT SCH (08:28)
[2018-10-02] MEDS: HEPARIN SODIUM,PORCINE 5,000 UNITS/ML VIAL SQ SCH ×2 (08:28→21:23)
[2018-10-02] MEDS: LEVETIRACETAM 500 MG/5 ML LIQUID UDC GT SCH ×2 (08:28→20:47)
[2018-10-02] MEDS: KETOCONAZOLE 2% SHAMPOO 120 ML BOTTLE TP SCH (08:29)
[2018-10-02] MEDS: VITAMINS A AND D OINT TP SCH ×2 (08:29→20:49)
[2018-10-02] MEDS: COD LIVER OIL/ZINC OXIDE OINT 113 GM TUBE TP SCH ×2 (08:29→20:49)
[2018-10-02] MEDS: HYDROGEN PEROXIDE 3% 118 ML BOTTLE TP SCH ×2 (08:29→20:49)
[2018-10-02] MEDS: Z GUARD REMEDY PASTE 57 GM TUBE TOP SCH ×2 (08:29→20:49)
[2018-10-02 20:16] VITALS: BP 92/55
[2018-10-02] MEDS: FOLIC ACID 1 MG TABLET GT SCH (20:47)
[2018-10-02] MEDS: CHOLECALCIFEROL 1,000 UNIT TABLET GT SCH (20:47)
[2018-10-02] MEDS: THIAMINE HCL 100 MG TABLET GT SCH (20:47)
[2018-10-03] MEDS: VITAL AF 1.2 1,000 ML LIQUID GT PRN (03:46)
[2018-10-03] MEDS: OMEPRAZOLE 20 MG CAPSULE.DR GT SCH (05:41)
[2018-10-03] MEDS: BACLOFEN 20 MG TABLET GT SCH ×3 (05:41→21:40)
[2018-10-03 08:00] VITALS: BP 97/63
[2018-10-03] MEDS: LEVETIRACETAM 500 MG/5 ML LIQUID UDC GT SCH ×2 (08:24→20:25)
[2018-10-03] MEDS: DESMOPRESSIN 0.1 MG TABLET GT SCH (08:24)
[2018-10-03] MEDS: METHYLPHENIDATE HCL 5 MG TABLET GT SCH (08:24)
[2018-10-03] MEDS: ACIDOPHILUS/BULGARICUS CHEW TAB GT SCH ×2 (08:24→20:25)
[2018-10-03] MEDS: COD LIVER OIL/ZINC OXIDE OINT 113 GM TUBE TP SCH ×2 (08:25→20:25)
[2018-10-03] MEDS: Z GUARD REMEDY PASTE 57 GM TUBE TOP SCH ×2 (08:25→20:25)
[2018-10-03] MEDS: VITAMINS A AND D OINT TP SCH ×2 (08:25→20:25)
[2018-10-03] MEDS: HYDROGEN PEROXIDE 3% 118 ML BOTTLE TP SCH ×2 (08:25→20:25)
[2018-10-03] MEDS: HEPARIN SODIUM,PORCINE 5,000 UNITS/ML VIAL SQ SCH ×2 (08:25→20:26)
[2018-10-03] MEDS: CHOLECALCIFEROL 1,000 UNIT TABLET GT SCH (20:25)
[2018-10-03] MEDS: FOLIC ACID 1 MG TABLET GT SCH (20:25)
[2018-10-03] MEDS: THIAMINE HCL 100 MG TABLET GT SCH (20:25)
[2018-10-03 20:51] VITALS: BP 98/60
[2018-10-04] MEDS: VITAL AF 1.2 1,000 ML LIQUID GT PRN ×2 (01:16→22:46)
[2018-10-04] MEDS: OMEPRAZOLE 20 MG CAPSULE.DR GT SCH (05:32)
[2018-10-04] MEDS: BACLOFEN 20 MG TABLET GT SCH ×3 (05:32→22:16)
[2018-10-04] MEDS: ACIDOPHILUS/BULGARICUS CHEW TAB GT SCH ×2 (08:43→20:32)
[2018-10-04] MEDS: DESMOPRESSIN 0.1 MG TABLET GT SCH (08:43)
[2018-10-04] MEDS: LEVETIRACETAM 500 MG/5 ML LIQUID UDC GT SCH ×2 (08:44→20:33)
[2018-10-04] MEDS: METHYLPHENIDATE HCL 5 MG TABLET GT SCH (08:45)
[2018-10-04] MEDS: HEPARIN SODIUM,PORCINE 5,000 UNITS/ML VIAL SQ SCH ×2 (08:46→20:34)
[2018-10-04] MEDS: COD LIVER OIL/ZINC OXIDE OINT 113 GM TUBE TP SCH ×2 (08:47→20:34)
[2018-10-04] MEDS: VITAMINS A AND D OINT TP SCH ×2 (08:47→20:34)
[2018-10-04] MEDS: Z GUARD REMEDY PASTE 57 GM TUBE TOP SCH ×2 (08:47→20:34)
[2018-10-04] MEDS: HYDROGEN PEROXIDE 3% 118 ML BOTTLE TP SCH ×2 (08:47→20:34)
[2018-10-04 09:18] VITALS: BP 97/62
[2018-10-04] MEDS: FOLIC ACID 1 MG TABLET GT SCH (20:32)
[2018-10-04] MEDS: THIAMINE HCL 100 MG TABLET GT SCH (20:33)
[2018-10-04] MEDS: CHOLECALCIFEROL 1,000 UNIT TABLET GT SCH (20:33)
[2018-10-04 21:27] VITALS: BP 92/49
[2018-10-05] MEDS: OMEPRAZOLE 20 MG CAPSULE.DR GT SCH (06:31)
[2018-10-05] MEDS: BACLOFEN 20 MG TABLET GT SCH ×3 (06:31→21:00)
[2018-10-05 08:00] VITALS: BP 107/52
[2018-10-05] MEDS: HEPARIN SODIUM,PORCINE 5,000 UNITS/ML VIAL SQ SCH ×2 (08:24→20:58)
[2018-10-05] MEDS: DESMOPRESSIN 0.1 MG TABLET GT SCH (08:36)
[2018-10-05] MEDS: LEVETIRACETAM 500 MG/5 ML LIQUID UDC GT SCH ×2 (08:36→20:55)
[2018-10-05] MEDS: ACIDOPHILUS/BULGARICUS CHEW TAB GT SCH ×2 (08:36→20:55)
[2018-10-05] MEDS: HYDROGEN PEROXIDE 3% 118 ML BOTTLE TP SCH ×2 (08:37→20:59)
[2018-10-05] MEDS: Z GUARD REMEDY PASTE 57 GM TUBE TOP SCH ×2 (08:37→20:59)
[2018-10-05] MEDS: METHYLPHENIDATE HCL 5 MG TABLET GT SCH (08:37)
[2018-10-05] MEDS: VITAMINS A AND D OINT TP SCH ×2 (08:37→20:59)
[2018-10-05] MEDS: COD LIVER OIL/ZINC OXIDE OINT 113 GM TUBE TP SCH ×2 (08:37→20:59)
[2018-10-05 12:30] VITALS: BP 130/67
[2018-10-05] MEDS: ACETAMINOPHEN 650 MG/20 ML UDC- SA PATIENTS-FEVER ONLY GT PRN (12:48)
[2018-10-05 14:24] LABS: *BILIRUBIN,URIN NEGATIVE (NEGATIVE); *BLOOD, URINE NEGATIVE (NEGATIVE); *CLARITY,URINE SLIGHTLY CLOUDY (CLEAR); *COLOR,URINE YELLOW (YELLOW); *KETONES,URINE NEGATIVE (NEGATIVE); LEUKOCYTE ESTERASE ,URINE NEGATIVE (NEGATIVE); NITRITE, URINE NEGATIVE (NEGATIVE); PH,URINE 5.5 (5.0-8.0); UGLUCOSE NEGATIVE (NEGATIVE)
[2018-10-05 15:15] LABS: BASOPHILS # (AUTO) 0.1 K/uL (0.0-8.0); BASOPHILS % (AUTO) 0.7 % (0.0-2.0); EOSINOPHILS # (AUTO) 0.2 K/uL (0.0-0.7); EOSINOPHILS % (AUTO) 2.5 % (0.0-7.0); HEMATOCRIT 32.2 % (31.2-41.9); HEMOGLOBIN 10.8 g/dL (10.9-14.3); LYMPHOCYTES # (AUTO) 1.6 K/uL (20.0-40.0); LYMPHOCYTES % (AUTO) 20.3 % (20.5-51.5); MEAN CORPUSCULAR HEMOGLOBIN 31.3 uug (24.7-32.8); MEAN CORPUSCULAR HGB CONC 34 g/dL (32.3-35.6); MEAN CORPUSCULAR VOLUME 93.1 fL (75.5-95.3); MONOCYTES # (AUTO) 0.7 K/uL (2.0-10.0); MONOCYTES % (AUTO) 8.6 % (0.0-11.0); NEUTROPHILS # (AUTO) 5.4 K/uL (1.8-8.9); NEUTROPHILS % (AUTO) 67.9 % (38.5-71.5); PLATELET COUNT (AUTO) 173 K/uL (179-408); RED BLOOD CELL COUNT(AUTO) 3.46 MIL/uL (3.63-4.92)
[2018-10-05 15:51] LABS: ALANINE AMINOTRANSFERASE 130 U/L (14-59); ALKALINE PHOSPHATASE 99 U/L (50-136); ASPARTATE AMINOTRANSFERASE 58 U/L (15-37); BILIRUBIN,TOTAL 0.6 mg/dL (0.2-1.0); CARBON DIOXIDE 25 mmol/L (21-32); CHLORIDE 101 mmol/L (98-107); CREATININE 0.4 mg/dL (0.6-1.3); GLUCOSE 108 mg/dL (74-106); MAGNESIUM 1.9 mg/dL (1.8-2.4); PHOSPHOROUS 4.1 mg/dL (2.5-4.9); POTASSIUM 4.1 mmol/L (3.5-5.1); TOTAL PROTEIN, SERUM 6.5 g/dL (6.4-8.2); UREA NITROGEN, BLOOD 22 mg/dL (7-18)
[2018-10-05 17:30] VITALS: BP 110/70
[2018-10-05] MEDS: FOLIC ACID 1 MG TABLET GT SCH (20:55)
[2018-10-05 20:56] VITALS: BP 99/51
[2018-10-05] MEDS: THIAMINE HCL 100 MG TABLET GT SCH (20:56)
[2018-10-05] MEDS: CHOLECALCIFEROL 1,000 UNIT TABLET GT SCH (20:57)
[2018-10-06] VITALS: BP 98/49
[2018-10-06] MEDS: VITAL AF 1.2 1,000 ML LIQUID GT PRN ×2 (01:07→21:25)
[2018-10-06 04:00] VITALS: BP 102/50
[2018-10-06] MEDS: BACLOFEN 20 MG TABLET GT SCH ×3 (06:20→21:15)
[2018-10-06] MEDS: OMEPRAZOLE 20 MG CAPSULE.DR GT SCH (06:20)
[2018-10-06 08:03] VITALS: BP 110/62
[2018-10-06] MEDS: DESMOPRESSIN 0.1 MG TABLET GT SCH (08:44)
[2018-10-06] MEDS: ACIDOPHILUS/BULGARICUS CHEW TAB GT SCH ×2 (08:44→21:12)
[2018-10-06] MEDS: METHYLPHENIDATE HCL 5 MG TABLET GT SCH (08:45)
[2018-10-06] MEDS: LEVETIRACETAM 500 MG/5 ML LIQUID UDC GT SCH ×2 (08:45→21:12)
[2018-10-06] MEDS: Z GUARD REMEDY PASTE 57 GM TUBE TOP SCH ×2 (08:46→21:15)
[2018-10-06] MEDS: VITAMINS A AND D OINT TP SCH ×2 (08:47→21:15)
[2018-10-06] MEDS: HEPARIN SODIUM,PORCINE 5,000 UNITS/ML VIAL SQ SCH ×2 (08:47→21:15)
[2018-10-06] MEDS: COD LIVER OIL/ZINC OXIDE OINT 113 GM TUBE TP SCH ×2 (08:47→21:15)
[2018-10-06] MEDS: KETOCONAZOLE 2% SHAMPOO 120 ML BOTTLE TP SCH (08:47)
[2018-10-06] MEDS: HYDROGEN PEROXIDE 3% 118 ML BOTTLE TP SCH ×2 (08:47→21:15)
[2018-10-06 20:00] VITALS: BP 94/55
[2018-10-06] MEDS: FOLIC ACID 1 MG TABLET GT SCH (21:12)
[2018-10-06] MEDS: CHOLECALCIFEROL 1,000 UNIT TABLET GT SCH (21:13)
[2018-10-06] MEDS: THIAMINE HCL 100 MG TABLET GT SCH (21:13)
[2018-10-07] MEDS: OMEPRAZOLE 20 MG CAPSULE.DR GT SCH (06:19)
[2018-10-07] MEDS: BACLOFEN 20 MG TABLET GT SCH ×3 (06:19→22:26)
[2018-10-07 08:00] LABS: BASOPHILS % (AUTO) 0.6 % (0.0-2.0); EOSINOPHILS # (AUTO) 0.2 K/uL (0.0-0.7); EOSINOPHILS % (AUTO) 3.5 % (0.0-7.0); HEMATOCRIT 30.6 % (31.2-41.9); HEMOGLOBIN 10.3 g/dL (10.9-14.3); LYMPHOCYTES % (AUTO) 27.8 % (20.5-51.5); MEAN CORPUSCULAR HEMOGLOBIN 31.3 uug (24.7-32.8); MEAN CORPUSCULAR HGB CONC 34 g/dL (32.3-35.6); MEAN CORPUSCULAR VOLUME 92.6 fL (75.5-95.3); MONOCYTES # (AUTO) 0.5 K/uL (2.0-10.0); MONOCYTES % (AUTO) 6.9 % (0.0-11.0); NEUTROPHILS # (AUTO) 4.4 K/uL (1.8-8.9); NEUTROPHILS % (AUTO) 61.2 % (38.5-71.5); PLATELET COUNT (AUTO) 144 K/uL (179-408); WHITE BLOOD COUNT (AUTO) 7.1 K/uL (3.8-11.8)
[2018-10-07 08:14] LABS: ALANINE AMINOTRANSFERASE 102 U/L (14-59); ALKALINE PHOSPHATASE 89 U/L (50-136); ASPARTATE AMINOTRANSFERASE 30 U/L (15-37); BILIRUBIN,TOTAL 0.6 mg/dL (0.2-1.0); CARBON DIOXIDE 25 mmol/L (21-32); CHLORIDE 99 mmol/L (98-107); CREATININE 0.3 mg/dL (0.6-1.3); GLUCOSE 100 mg/dL (74-106); POTASSIUM 3.5 mmol/L (3.5-5.1); TOTAL PROTEIN, SERUM 6.4 g/dL (6.4-8.2); UREA NITROGEN, BLOOD 19 mg/dL (7-18)
[2018-10-07] MEDS: DESMOPRESSIN 0.1 MG TABLET GT SCH (08:16)
[2018-10-07] MEDS: ACIDOPHILUS/BULGARICUS CHEW TAB GT SCH ×2 (08:17→20:28)
[2018-10-07] MEDS: LEVETIRACETAM 500 MG/5 ML LIQUID UDC GT SCH ×2 (08:18→20:29)
[2018-10-07] MEDS: COD LIVER OIL/ZINC OXIDE OINT 113 GM TUBE TP SCH ×2 (08:28→20:31)
[2018-10-07] MEDS: HYDROGEN PEROXIDE 3% 118 ML BOTTLE TP SCH ×2 (08:28→20:31)
[2018-10-07] MEDS: Z GUARD REMEDY PASTE 57 GM TUBE TOP SCH ×2 (08:28→20:31)
[2018-10-07] MEDS: METHYLPHENIDATE HCL 5 MG TABLET GT SCH (08:28)
[2018-10-07] MEDS: VITAMINS A AND D OINT TP SCH ×2 (08:28→20:31)
[2018-10-07] MEDS: HEPARIN SODIUM,PORCINE 5,000 UNITS/ML VIAL SQ SCH ×2 (08:29→20:31)
[2018-10-07 10:45] VITALS: BP 117/68
[2018-10-07] MEDS: VITAL AF 1.2 1,000 ML LIQUID GT PRN (16:11)
[2018-10-07] MEDS: FOLIC ACID 1 MG TABLET GT SCH (20:28)
[2018-10-07] MEDS: THIAMINE HCL 100 MG TABLET GT SCH (20:30)
[2018-10-07] MEDS: CHOLECALCIFEROL 1,000 UNIT TABLET GT SCH (20:30)
[2018-10-07 20:46] VITALS: BP 115/54
[2018-10-08] MEDS: BACLOFEN 20 MG TABLET GT SCH ×3 (06:24→21:12)
[2018-10-08] MEDS: OMEPRAZOLE 20 MG CAPSULE.DR GT SCH (06:24)
[2018-10-08 07:55] VITALS: BP 140/60
[2018-10-08] MEDS: DESMOPRESSIN 0.1 MG TABLET GT SCH (08:34)
[2018-10-08] MEDS: HEPARIN SODIUM,PORCINE 5,000 UNITS/ML VIAL SQ SCH ×2 (08:35→21:39)
[2018-10-08] MEDS: LEVETIRACETAM 500 MG/5 ML LIQUID UDC GT SCH ×2 (08:41→21:11)
[2018-10-08] MEDS: COD LIVER OIL/ZINC OXIDE OINT 113 GM TUBE TP SCH ×2 (08:41→21:12)
[2018-10-08] MEDS: Z GUARD REMEDY PASTE 57 GM TUBE TOP SCH ×2 (08:41→21:11)
[2018-10-08] MEDS: ACIDOPHILUS/BULGARICUS CHEW TAB GT SCH ×2 (08:41→21:11)
[2018-10-08] MEDS: HYDROGEN PEROXIDE 3% 118 ML BOTTLE TP SCH ×2 (08:42→21:12)
[2018-10-08] MEDS: METHYLPHENIDATE HCL 5 MG TABLET GT SCH (08:42)
[2018-10-08] MEDS: VITAMINS A AND D OINT TP SCH ×2 (08:42→21:12)
[2018-10-08] MEDS: VITAL AF 1.2 1,000 ML LIQUID GT PRN (12:05)
[2018-10-08] MEDS ORDERED: POLYVINYL ALCOHOL OPHT DROPS 15 ML BOTTLE EACHEYE SCH (14:48)
[2018-10-08] MEDS: POLYVINYL ALCOHOL OPHT DROPS 15 ML BOTTLE EACHEYE SCH ×2 (17:43→23:21)
[2018-10-08] MEDS: CHOLECALCIFEROL 1,000 UNIT TABLET GT SCH (21:11)
[2018-10-08] MEDS: FOLIC ACID 1 MG TABLET GT SCH (21:11)
[2018-10-08] MEDS: THIAMINE HCL 100 MG TABLET GT SCH (21:11)
[2018-10-08 21:42] VITALS: BP 108/58
[2018-10-09] MEDS: BACLOFEN 20 MG TABLET GT SCH ×3 (05:41→21:32)
[2018-10-09] MEDS: POLYVINYL ALCOHOL OPHT DROPS 15 ML BOTTLE EACHEYE SCH ×4 (05:41→22:13)
[2018-10-09] MEDS: OMEPRAZOLE 20 MG CAPSULE.DR GT SCH (05:42)
[2018-10-09] MEDS: DESMOPRESSIN 0.1 MG TABLET GT SCH (08:06)
[2018-10-09] MEDS: LEVETIRACETAM 500 MG/5 ML LIQUID UDC GT SCH ×2 (08:06→21:00)
[2018-10-09] MEDS: ACIDOPHILUS/BULGARICUS CHEW TAB GT SCH ×2 (08:06→21:00)
[2018-10-09] MEDS: HYDROGEN PEROXIDE 3% 118 ML BOTTLE TP SCH ×2 (08:07→21:32)
[2018-10-09] MEDS: METHYLPHENIDATE HCL 5 MG TABLET GT SCH (08:07)
[2018-10-09] MEDS: VITAMINS A AND D OINT TP SCH ×2 (08:07→21:32)
[2018-10-09] MEDS: KETOCONAZOLE 2% SHAMPOO 120 ML BOTTLE TP SCH (08:07)
[2018-10-09] MEDS: Z GUARD REMEDY PASTE 57 GM TUBE TOP SCH ×2 (08:07→21:32)
[2018-10-09] MEDS: COD LIVER OIL/ZINC OXIDE OINT 113 GM TUBE TP SCH ×2 (08:07→21:32)
[2018-10-09] MEDS: HEPARIN SODIUM,PORCINE 5,000 UNITS/ML VIAL SQ SCH ×2 (08:09→21:00)
[2018-10-09] MEDS: VITAL AF 1.2 1,000 ML LIQUID GT PRN (10:57)
[2018-10-09] MEDS: FOLIC ACID 1 MG TABLET GT SCH (21:00)
[2018-10-09] MEDS: CHOLECALCIFEROL 1,000 UNIT TABLET GT SCH (21:32)
[2018-10-09] MEDS: THIAMINE HCL 100 MG TABLET GT SCH (21:32)
[2018-10-09 22:39] VITALS: BP 104/60
[2018-10-10] MEDS: OMEPRAZOLE 20 MG CAPSULE.DR GT SCH (05:48)
[2018-10-10] MEDS: POLYVINYL ALCOHOL OPHT DROPS 15 ML BOTTLE EACHEYE SCH ×3 (05:48→17:56)
[2018-10-10] MEDS: BACLOFEN 20 MG TABLET GT SCH ×3 (05:48→22:39)
[2018-10-10] MEDS: VITAL AF 1.2 1,000 ML LIQUID GT PRN (06:49)
[2018-10-10 08:00] VITALS: BP 109/65
[2018-10-10] MEDS: ACIDOPHILUS/BULGARICUS CHEW TAB GT SCH ×2 (08:35→20:48)
[2018-10-10] MEDS: DESMOPRESSIN 0.1 MG TABLET GT SCH (08:35)
[2018-10-10] MEDS: LEVETIRACETAM 500 MG/5 ML LIQUID UDC GT SCH ×2 (08:35→20:48)
[2018-10-10] MEDS: HEPARIN SODIUM,PORCINE 5,000 UNITS/ML VIAL SQ SCH ×2 (08:36→20:38)
[2018-10-10] MEDS: VITAMINS A AND D OINT TP SCH ×2 (08:36→20:48)
[2018-10-10] MEDS: METHYLPHENIDATE HCL 5 MG TABLET GT SCH (08:36)
[2018-10-10] MEDS: HYDROGEN PEROXIDE 3% 118 ML BOTTLE TP SCH ×2 (08:36→20:48)
[2018-10-10] MEDS: Z GUARD REMEDY PASTE 57 GM TUBE TOP SCH ×2 (08:36→20:48)
[2018-10-10] MEDS: COD LIVER OIL/ZINC OXIDE OINT 113 GM TUBE TP SCH ×2 (08:36→20:48)
[2018-10-10] MEDS: CHOLECALCIFEROL 1,000 UNIT TABLET GT SCH (20:48)
[2018-10-10] MEDS: THIAMINE HCL 100 MG TABLET GT SCH (20:48)
[2018-10-10] MEDS: FOLIC ACID 1 MG TABLET GT SCH (20:48)
[2018-10-11] MEDS: POLYVINYL ALCOHOL OPHT DROPS 15 ML BOTTLE EACHEYE SCH ×4 (00:18→17:19)
[2018-10-11] MEDS: VITAL AF 1.2 1,000 ML LIQUID GT PRN (00:45)
[2018-10-11 03:16] VITALS: BP 95/51
[2018-10-11] MEDS: OMEPRAZOLE 20 MG CAPSULE.DR GT SCH (06:37)
[2018-10-11] MEDS: BACLOFEN 20 MG TABLET GT SCH ×3 (06:37→22:29)
[2018-10-11 08:00] VITALS: BP 107/68
[2018-10-11] MEDS: DESMOPRESSIN 0.1 MG TABLET GT SCH (08:52)
[2018-10-11] MEDS: LEVETIRACETAM 500 MG/5 ML LIQUID UDC GT SCH ×2 (08:54→20:44)
[2018-10-11] MEDS: ACIDOPHILUS/BULGARICUS CHEW TAB GT SCH ×2 (08:54→20:44)
[2018-10-11] MEDS: METHYLPHENIDATE HCL 5 MG TABLET GT SCH (08:55)
[2018-10-11] MEDS: HEPARIN SODIUM,PORCINE 5,000 UNITS/ML VIAL SQ SCH ×2 (08:57→20:19)
[2018-10-11] MEDS: VITAMINS A AND D OINT TP SCH ×2 (08:57→20:44)
[2018-10-11] MEDS: COD LIVER OIL/ZINC OXIDE OINT 113 GM TUBE TP SCH ×2 (08:57→20:44)
[2018-10-11] MEDS: HYDROGEN PEROXIDE 3% 118 ML BOTTLE TP SCH ×2 (08:57→20:44)
[2018-10-11] MEDS: Z GUARD REMEDY PASTE 57 GM TUBE TOP SCH ×2 (08:57→20:44)
[2018-10-11 20:28] VITALS: BP 123/48
[2018-10-11] MEDS: THIAMINE HCL 100 MG TABLET GT SCH (20:44)
[2018-10-11] MEDS: CHOLECALCIFEROL 1,000 UNIT TABLET GT SCH (20:44)
[2018-10-11] MEDS: FOLIC ACID 1 MG TABLET GT SCH (20:44)
[2018-10-12] MEDS: POLYVINYL ALCOHOL OPHT DROPS 15 ML BOTTLE EACHEYE SCH ×5 (00:28→23:17)
[2018-10-12] MEDS: BACLOFEN 20 MG TABLET GT SCH ×3 (06:20→21:19)
[2018-10-12] MEDS: OMEPRAZOLE 20 MG CAPSULE.DR GT SCH (06:20)
[2018-10-12 08:00] VITALS: BP 116/59
[2018-10-12] MEDS: DESMOPRESSIN 0.1 MG TABLET GT SCH (08:23)
[2018-10-12] MEDS: ACIDOPHILUS/BULGARICUS CHEW TAB GT SCH ×2 (08:23→21:18)
[2018-10-12] MEDS: LEVETIRACETAM 500 MG/5 ML LIQUID UDC GT SCH ×2 (08:23→21:18)
[2018-10-12] MEDS: HEPARIN SODIUM,PORCINE 5,000 UNITS/ML VIAL SQ SCH ×2 (08:24→21:23)
[2018-10-12] MEDS: METHYLPHENIDATE HCL 5 MG TABLET GT SCH (08:25)
[2018-10-12] MEDS: HYDROGEN PEROXIDE 3% 118 ML BOTTLE TP SCH ×2 (08:47→21:19)
[2018-10-12] MEDS: VITAMINS A AND D OINT TP SCH ×2 (08:47→21:19)
[2018-10-12] MEDS: Z GUARD REMEDY PASTE 57 GM TUBE TOP SCH ×2 (08:47→21:19)
[2018-10-12] MEDS: COD LIVER OIL/ZINC OXIDE OINT 113 GM TUBE TP SCH ×2 (08:47→21:19)
[2018-10-12 20:49] VITALS: BP 114/53
[2018-10-12] MEDS: FOLIC ACID 1 MG TABLET GT SCH (21:18)
[2018-10-12] MEDS: THIAMINE HCL 100 MG TABLET GT SCH (21:18)
[2018-10-12] MEDS: CHOLECALCIFEROL 1,000 UNIT TABLET GT SCH (21:19)
[2018-10-13] MEDS: VITAL AF 1.2 1,000 ML LIQUID GT PRN (05:02)
[2018-10-13] MEDS: BACLOFEN 20 MG TABLET GT SCH ×3 (06:20→22:34)
[2018-10-13] MEDS: POLYVINYL ALCOHOL OPHT DROPS 15 ML BOTTLE EACHEYE SCH ×3 (06:20→17:24)
[2018-10-13] MEDS: OMEPRAZOLE 20 MG CAPSULE.DR GT SCH (06:20)
[2018-10-13 09:08] VITALS: BP 89/40
[2018-10-13 09:10] VITALS: BP 96/50
[2018-10-13] MEDS: LEVETIRACETAM 500 MG/5 ML LIQUID UDC GT SCH ×2 (09:39→21:28)
[2018-10-13] MEDS: ACIDOPHILUS/BULGARICUS CHEW TAB GT SCH ×2 (09:39→21:27)
[2018-10-13] MEDS: DESMOPRESSIN 0.1 MG TABLET GT SCH (09:39)
[2018-10-13] MEDS: HYDROGEN PEROXIDE 3% 118 ML BOTTLE TP SCH ×2 (09:40→21:31)
[2018-10-13] MEDS: COD LIVER OIL/ZINC OXIDE OINT 113 GM TUBE TP SCH ×2 (09:40→21:31)
[2018-10-13] MEDS: Z GUARD REMEDY PASTE 57 GM TUBE TOP SCH ×2 (09:40→21:31)
[2018-10-13] MEDS: KETOCONAZOLE 2% SHAMPOO 120 ML BOTTLE TP SCH (09:41)
[2018-10-13] MEDS: VITAMINS A AND D OINT TP SCH ×2 (09:41→21:31)
[2018-10-13] MEDS: HEPARIN SODIUM,PORCINE 5,000 UNITS/ML VIAL SQ SCH ×2 (09:43→21:31)
[2018-10-13] MEDS: METHYLPHENIDATE HCL 5 MG TABLET GT SCH (09:44)
[2018-10-13 19:58] VITALS: BP 92/47
[2018-10-13] MEDS: FOLIC ACID 1 MG TABLET GT SCH (21:28)
[2018-10-13] MEDS: CHOLECALCIFEROL 1,000 UNIT TABLET GT SCH (21:29)
[2018-10-13] MEDS: THIAMINE HCL 100 MG TABLET GT SCH (21:29)
[2018-10-14] MEDS: POLYVINYL ALCOHOL OPHT DROPS 15 ML BOTTLE EACHEYE SCH ×4 (00:24→17:16)
[2018-10-14] MEDS: VITAL AF 1.2 1,000 ML LIQUID GT PRN (01:25)
[2018-10-14] MEDS: BACLOFEN 20 MG TABLET GT SCH ×3 (05:59→21:28)
[2018-10-14] MEDS: OMEPRAZOLE 20 MG CAPSULE.DR GT SCH (05:59)
[2018-10-14] MEDS: DESMOPRESSIN 0.1 MG TABLET GT SCH (08:45)
[2018-10-14] MEDS: ACIDOPHILUS/BULGARICUS CHEW TAB GT SCH ×2 (08:45→21:23)
[2018-10-14] MEDS: LEVETIRACETAM 500 MG/5 ML LIQUID UDC GT SCH ×2 (08:48→21:24)
[2018-10-14] MEDS: METHYLPHENIDATE HCL 5 MG TABLET GT SCH (08:48)
[2018-10-14] MEDS: HEPARIN SODIUM,PORCINE 5,000 UNITS/ML VIAL SQ SCH ×2 (08:49→21:26)
[2018-10-14] MEDS: Z GUARD REMEDY PASTE 57 GM TUBE TOP SCH ×2 (08:49→21:26)
[2018-10-14] MEDS: HYDROGEN PEROXIDE 3% 118 ML BOTTLE TP SCH ×2 (08:49→21:27)
[2018-10-14] MEDS: VITAMINS A AND D OINT TP SCH ×2 (08:49→21:27)
[2018-10-14] MEDS: COD LIVER OIL/ZINC OXIDE OINT 113 GM TUBE TP SCH ×2 (08:49→21:26)
[2018-10-14 10:47] VITALS: BP 101/52
[2018-10-14 20:16] VITALS: BP 103/60
[2018-10-14] MEDS: FOLIC ACID 1 MG TABLET GT SCH (21:24)
[2018-10-14] MEDS: THIAMINE HCL 100 MG TABLET GT SCH (21:25)
[2018-10-14] MEDS: CHOLECALCIFEROL 1,000 UNIT TABLET GT SCH (21:25)
[2018-10-15] MEDS: VITAL AF 1.2 1,000 ML LIQUID GT PRN
[2018-10-15] MEDS: POLYVINYL ALCOHOL OPHT DROPS 15 ML BOTTLE EACHEYE SCH ×4 (00:40→17:32)
[2018-10-15] MEDS: BACLOFEN 20 MG TABLET GT SCH ×3 (05:47→21:49)
[2018-10-15] MEDS: OMEPRAZOLE 20 MG CAPSULE.DR GT SCH (05:47)
[2018-10-15 08:12] VITALS: BP 94/59
[2018-10-15] MEDS: VITAMINS A AND D OINT TP SCH ×2 (09:33→20:53)
[2018-10-15] MEDS: Z GUARD REMEDY PASTE 57 GM TUBE TOP SCH ×2 (09:33→20:53)
[2018-10-15] MEDS: COD LIVER OIL/ZINC OXIDE OINT 113 GM TUBE TP SCH ×2 (09:33→20:53)
[2018-10-15] MEDS: HYDROGEN PEROXIDE 3% 118 ML BOTTLE TP SCH ×2 (09:33→20:53)
[2018-10-15] MEDS: ACIDOPHILUS/BULGARICUS CHEW TAB GT SCH ×2 (09:33→20:50)
[2018-10-15] MEDS: DESMOPRESSIN 0.1 MG TABLET GT SCH (09:33)
[2018-10-15] MEDS: LEVETIRACETAM 500 MG/5 ML LIQUID UDC GT SCH ×2 (09:33→20:52)
[2018-10-15] MEDS: HEPARIN SODIUM,PORCINE 5,000 UNITS/ML VIAL SQ SCH ×2 (09:36→21:49)
[2018-10-15] MEDS: METHYLPHENIDATE HCL 5 MG TABLET GT SCH (09:41)
[2018-10-15 14:00] VITALS: BP 94/59
[2018-10-15 15:27] LABS: BASOPHILS % (AUTO) 0.5 % (0.0-2.0); EOSINOPHILS # (AUTO) 0.3 K/uL (0.0-0.7); EOSINOPHILS % (AUTO) 5.5 % (0.0-7.0); HEMATOCRIT 31.3 % (31.2-41.9); HEMOGLOBIN 10.7 g/dL (10.9-14.3); LYMPHOCYTES # (AUTO) 1.8 K/uL (20.0-40.0); MEAN CORPUSCULAR HEMOGLOBIN 31.9 uug (24.7-32.8); MEAN CORPUSCULAR HGB CONC 34 g/dL (32.3-35.6); MEAN CORPUSCULAR VOLUME 93.5 fL (75.5-95.3); MONOCYTES # (AUTO) 0.4 K/uL (2.0-10.0); MONOCYTES % (AUTO) 8.1 % (0.0-11.0); NEUTROPHILS # (AUTO) 2.4 K/uL (1.8-8.9); NEUTROPHILS % (AUTO) 49.9 % (38.5-71.5); PLATELET COUNT (AUTO) 196 K/uL (179-408); RED BLOOD CELL COUNT(AUTO) 3.34 MIL/uL (3.63-4.92); WHITE BLOOD COUNT (AUTO) 4.9 K/uL (3.8-11.8)
[2018-10-15 15:48] LABS: CARBON DIOXIDE 25 mmol/L (21-32); CHLORIDE 108 mmol/L (98-107); CREATININE 0.4 mg/dL (0.6-1.3); GLUCOSE 85 mg/dL (74-106); POTASSIUM 4.2 mmol/L (3.5-5.1); UREA NITROGEN, BLOOD 22 mg/dL (7-18)
[2018-10-15] MEDS: FOLIC ACID 1 MG TABLET GT SCH (20:50)
[2018-10-15] MEDS: THIAMINE HCL 100 MG TABLET GT SCH (20:52)
[2018-10-15] MEDS: CHOLECALCIFEROL 1,000 UNIT TABLET GT SCH (20:53)
[2018-10-15 23:01] VITALS: BP 96/55
[2018-10-16] MEDS: POLYVINYL ALCOHOL OPHT DROPS 15 ML BOTTLE EACHEYE SCH ×4 (00:59→17:21)
[2018-10-16] MEDS: BACLOFEN 20 MG TABLET GT SCH ×3 (05:16→21:21)
[2018-10-16] MEDS: OMEPRAZOLE 20 MG CAPSULE.DR GT SCH (05:16)
[2018-10-16 08:25] VITALS: BP 123/60
[2018-10-16] MEDS: DESMOPRESSIN 0.1 MG TABLET GT SCH (09:11)
[2018-10-16] MEDS: ACIDOPHILUS/BULGARICUS CHEW TAB GT SCH ×2 (09:11→20:18)
[2018-10-16] MEDS: VITAMINS A AND D OINT TP SCH ×2 (09:12→20:18)
[2018-10-16] MEDS: COD LIVER OIL/ZINC OXIDE OINT 113 GM TUBE TP SCH ×2 (09:12→20:18)
[2018-10-16] MEDS: HYDROGEN PEROXIDE 3% 118 ML BOTTLE TP SCH ×2 (09:12→20:18)
[2018-10-16] MEDS: LEVETIRACETAM 500 MG/5 ML LIQUID UDC GT SCH ×2 (09:12→20:18)
[2018-10-16] MEDS: KETOCONAZOLE 2% SHAMPOO 120 ML BOTTLE TP SCH (09:12)
[2018-10-16] MEDS: Z GUARD REMEDY PASTE 57 GM TUBE TOP SCH ×2 (09:12→20:18)
[2018-10-16] MEDS: METHYLPHENIDATE HCL 5 MG TABLET GT SCH (09:12)
[2018-10-16] MEDS: HEPARIN SODIUM,PORCINE 5,000 UNITS/ML VIAL SQ SCH ×2 (09:16→20:19)
[2018-10-16] MEDS: CHOLECALCIFEROL 1,000 UNIT TABLET GT SCH (20:18)
[2018-10-16] MEDS: THIAMINE HCL 100 MG TABLET GT SCH (20:18)
[2018-10-16] MEDS: FOLIC ACID 1 MG TABLET GT SCH (20:18)
[2018-10-16 22:40] VITALS: BP 93/53
[2018-10-17] MEDS: POLYVINYL ALCOHOL OPHT DROPS 15 ML BOTTLE EACHEYE SCH ×4 (05:08→17:19)
[2018-10-17] MEDS: OMEPRAZOLE 20 MG CAPSULE.DR GT SCH (05:08)
[2018-10-17] MEDS: BACLOFEN 20 MG TABLET GT SCH ×3 (05:08→21:19)
[2018-10-17] MEDS: VITAL AF 1.2 1,000 ML LIQUID GT PRN (05:11)
[2018-10-17 08:14] VITALS: BP 123/54
[2018-10-17] MEDS: DESMOPRESSIN 0.1 MG TABLET GT SCH (09:25)
[2018-10-17] MEDS: Z GUARD REMEDY PASTE 57 GM TUBE TOP SCH ×2 (09:25→21:19)
[2018-10-17] MEDS: METHYLPHENIDATE HCL 5 MG TABLET GT SCH (09:25)
[2018-10-17] MEDS: LEVETIRACETAM 500 MG/5 ML LIQUID UDC GT SCH ×2 (09:25→21:19)
[2018-10-17] MEDS: ACIDOPHILUS/BULGARICUS CHEW TAB GT SCH ×2 (09:25→21:19)
[2018-10-17] MEDS: HEPARIN SODIUM,PORCINE 5,000 UNITS/ML VIAL SQ SCH ×2 (09:25→21:00)
[2018-10-17] MEDS: VITAMINS A AND D OINT TP SCH ×2 (09:26→21:19)
[2018-10-17] MEDS: COD LIVER OIL/ZINC OXIDE OINT 113 GM TUBE TP SCH ×2 (09:26→21:19)
[2018-10-17] MEDS: HYDROGEN PEROXIDE 3% 118 ML BOTTLE TP SCH ×2 (09:26→21:19)
[2018-10-17] MEDS: FOLIC ACID 1 MG TABLET GT SCH (21:19)
[2018-10-17] MEDS: CHOLECALCIFEROL 1,000 UNIT TABLET GT SCH (21:19)
[2018-10-17] MEDS: THIAMINE HCL 100 MG TABLET GT SCH (21:19)
[2018-10-17 22:07] VITALS: BP 115/58
[2018-10-17] MEDS: BISACODYL 10 MG SUPP.RECT RC PRN (23:29)
[2018-10-18] MEDS: POLYVINYL ALCOHOL OPHT DROPS 15 ML BOTTLE EACHEYE SCH ×4 (00:46→17:23)
[2018-10-18] MEDS: BACLOFEN 20 MG TABLET GT SCH ×3 (06:12→21:34)
[2018-10-18] MEDS: OMEPRAZOLE 20 MG CAPSULE.DR GT SCH (06:12)
[2018-10-18] MEDS: VITAL AF 1.2 1,000 ML LIQUID GT PRN (06:42)
[2018-10-18 08:00] VITALS: BP 119/63
[2018-10-18] MEDS: DESMOPRESSIN 0.1 MG TABLET GT SCH (08:33)
[2018-10-18] MEDS: ACIDOPHILUS/BULGARICUS CHEW TAB GT SCH ×2 (08:34→20:33)
[2018-10-18] MEDS: LEVETIRACETAM 500 MG/5 ML LIQUID UDC GT SCH ×2 (08:34→20:33)
[2018-10-18] MEDS: HYDROGEN PEROXIDE 3% 118 ML BOTTLE TP SCH ×2 (08:35→20:33)
[2018-10-18] MEDS: METHYLPHENIDATE HCL 5 MG TABLET GT SCH (08:35)
[2018-10-18] MEDS: VITAMINS A AND D OINT TP SCH ×2 (08:35→20:33)
[2018-10-18] MEDS: Z GUARD REMEDY PASTE 57 GM TUBE TOP SCH ×2 (08:35→20:33)
[2018-10-18] MEDS: COD LIVER OIL/ZINC OXIDE OINT 113 GM TUBE TP SCH ×2 (08:35→20:33)
[2018-10-18] MEDS: HEPARIN SODIUM,PORCINE 5,000 UNITS/ML VIAL SQ SCH ×2 (08:37→21:34)
[2018-10-18 20:19] VITALS: BP 97/49
[2018-10-18] MEDS: THIAMINE HCL 100 MG TABLET GT SCH (20:33)
[2018-10-18] MEDS: FOLIC ACID 1 MG TABLET GT SCH (20:33)
[2018-10-18] MEDS: CHOLECALCIFEROL 1,000 UNIT TABLET GT SCH (20:33)
[2018-10-19] MEDS: POLYVINYL ALCOHOL OPHT DROPS 15 ML BOTTLE EACHEYE SCH ×4 (00:14→18:02)
[2018-10-19] MEDS: VITAL AF 1.2 1,000 ML LIQUID GT PRN (00:37)
[2018-10-19] MEDS: OMEPRAZOLE 20 MG CAPSULE.DR GT SCH (05:33)
[2018-10-19] MEDS: BACLOFEN 20 MG TABLET GT SCH ×3 (05:33→21:02)
[2018-10-19 07:22] LABS: BASOPHILS % (AUTO) 0.7 % (0.0-2.0); EOSINOPHILS # (AUTO) 0.3 K/uL (0.0-0.7); EOSINOPHILS % (AUTO) 7.2 % (0.0-7.0); HEMATOCRIT 26.8 % (31.2-41.9); HEMOGLOBIN 9.3 g/dL (10.9-14.3); LYMPHOCYTES % (AUTO) 47.6 % (20.5-51.5); MEAN CORPUSCULAR HEMOGLOBIN 31.8 uug (24.7-32.8); MEAN CORPUSCULAR HGB CONC 35 g/dL (32.3-35.6); MONOCYTES # (AUTO) 0.3 K/uL (2.0-10.0); MONOCYTES % (AUTO) 6.9 % (0.0-11.0); NEUTROPHILS # (AUTO) 1.6 K/uL (1.8-8.9); NEUTROPHILS % (AUTO) 37.6 % (38.5-71.5); PLATELET COUNT (AUTO) 161 K/uL (179-408); RED BLOOD CELL COUNT(AUTO) 2.91 MIL/uL (3.63-4.92); WHITE BLOOD COUNT (AUTO) 4.3 K/uL (3.8-11.8)
[2018-10-19 07:35] LABS: ALANINE AMINOTRANSFERASE 164 U/L (14-59); ALKALINE PHOSPHATASE 101 U/L (50-136); ASPARTATE AMINOTRANSFERASE 64 U/L (15-37); BILIRUBIN,TOTAL 0.7 mg/dL (0.2-1.0); CARBON DIOXIDE 26 mmol/L (21-32); CHLORIDE 103 mmol/L (98-107); CREATININE 0.3 mg/dL (0.6-1.3); GLUCOSE 83 mg/dL (74-106); MAGNESIUM 1.8 mg/dL (1.8-2.4); PHOSPHOROUS 3.6 mg/dL (2.5-4.9); TOTAL PROTEIN, SERUM 6.6 g/dL (6.4-8.2); UREA NITROGEN, BLOOD 20 mg/dL (7-18)
[2018-10-19 08:00] VITALS: BP 119/68
[2018-10-19] MEDS: HEPARIN SODIUM,PORCINE 5,000 UNITS/ML VIAL SQ SCH ×2 (08:16→21:01)
[2018-10-19] MEDS: LEVETIRACETAM 500 MG/5 ML LIQUID UDC GT SCH ×2 (08:18→20:59)
[2018-10-19] MEDS: DESMOPRESSIN 0.1 MG TABLET GT SCH (08:18)
[2018-10-19] MEDS: ACIDOPHILUS/BULGARICUS CHEW TAB GT SCH ×2 (08:18→20:59)
[2018-10-19] MEDS: Z GUARD REMEDY PASTE 57 GM TUBE TOP SCH ×2 (08:18→21:01)
[2018-10-19] MEDS: COD LIVER OIL/ZINC OXIDE OINT 113 GM TUBE TP SCH ×2 (08:18→21:01)
[2018-10-19] MEDS: METHYLPHENIDATE HCL 5 MG TABLET GT SCH (08:18)
[2018-10-19] MEDS: VITAMINS A AND D OINT TP SCH ×2 (08:19→21:02)
[2018-10-19] MEDS: HYDROGEN PEROXIDE 3% 118 ML BOTTLE TP SCH ×2 (08:19→21:01)
[2018-10-19] MEDS: FOLIC ACID 1 MG TABLET GT SCH (20:59)
[2018-10-19] MEDS: CHOLECALCIFEROL 1,000 UNIT TABLET GT SCH (21:00)
[2018-10-19] MEDS: THIAMINE HCL 100 MG TABLET GT SCH (21:00)
[2018-10-19 21:56] VITALS: BP 105/63
[2018-10-20] MEDS: POLYVINYL ALCOHOL OPHT DROPS 15 ML BOTTLE EACHEYE SCH ×4 (06:06→17:35)
[2018-10-20] MEDS: OMEPRAZOLE 20 MG CAPSULE.DR GT SCH (06:07)
[2018-10-20] MEDS: BACLOFEN 20 MG TABLET GT SCH ×3 (06:07→22:35)
[2018-10-20] MEDS: LEVETIRACETAM 500 MG/5 ML LIQUID UDC GT SCH ×2 (08:43→20:50)
[2018-10-20] MEDS: DESMOPRESSIN 0.1 MG TABLET GT SCH (08:43)
[2018-10-20] MEDS: ACIDOPHILUS/BULGARICUS CHEW TAB GT SCH ×2 (08:43→20:50)
[2018-10-20] MEDS: COD LIVER OIL/ZINC OXIDE OINT 113 GM TUBE TP SCH ×2 (08:44→20:53)
[2018-10-20] MEDS: HEPARIN SODIUM,PORCINE 5,000 UNITS/ML VIAL SQ SCH ×2 (08:44→20:53)
[2018-10-20] MEDS: METHYLPHENIDATE HCL 5 MG TABLET GT SCH (08:44)
[2018-10-20] MEDS: HYDROGEN PEROXIDE 3% 118 ML BOTTLE TP SCH ×2 (08:44→20:53)
[2018-10-20] MEDS: Z GUARD REMEDY PASTE 57 GM TUBE TOP SCH ×2 (08:44→20:53)
[2018-10-20] MEDS: VITAMINS A AND D OINT TP SCH ×2 (08:45→20:53)
[2018-10-20] MEDS: KETOCONAZOLE 2% SHAMPOO 120 ML BOTTLE TP SCH (08:45)
[2018-10-20 11:14] VITALS: BP 116/67
[2018-10-20 20:00] VITALS: BP 99/57
[2018-10-20] MEDS: FOLIC ACID 1 MG TABLET GT SCH (20:50)
[2018-10-20] MEDS: CHOLECALCIFEROL 1,000 UNIT TABLET GT SCH (20:51)
[2018-10-20] MEDS: THIAMINE HCL 100 MG TABLET GT SCH (20:51)
[2018-10-21] MEDS: VITAL AF 1.2 1,000 ML LIQUID GT PRN (05:00)
[2018-10-21] MEDS: BACLOFEN 20 MG TABLET GT SCH ×3 (05:50→22:23)
[2018-10-21] MEDS: POLYVINYL ALCOHOL OPHT DROPS 15 ML BOTTLE EACHEYE SCH ×4 (05:50→17:09)
[2018-10-21] MEDS: OMEPRAZOLE 20 MG CAPSULE.DR GT SCH (05:50)
[2018-10-21] MEDS: METHYLPHENIDATE HCL 5 MG TABLET GT SCH (08:14)
[2018-10-21] MEDS: LEVETIRACETAM 500 MG/5 ML LIQUID UDC GT SCH ×2 (08:14→20:46)
[2018-10-21] MEDS: DESMOPRESSIN 0.1 MG TABLET GT SCH (08:14)
[2018-10-21] MEDS: ACIDOPHILUS/BULGARICUS CHEW TAB GT SCH ×2 (08:14→20:45)
[2018-10-21] MEDS: HEPARIN SODIUM,PORCINE 5,000 UNITS/ML VIAL SQ SCH ×2 (08:15→20:50)
[2018-10-21] MEDS: HYDROGEN PEROXIDE 3% 118 ML BOTTLE TP SCH ×2 (08:15→20:50)
[2018-10-21] MEDS: Z GUARD REMEDY PASTE 57 GM TUBE TOP SCH ×2 (08:15→20:50)
[2018-10-21] MEDS: COD LIVER OIL/ZINC OXIDE OINT 113 GM TUBE TP SCH ×2 (08:15→20:50)
[2018-10-21] MEDS: VITAMINS A AND D OINT TP SCH ×2 (08:15→20:52)
[2018-10-21 10:41] VITALS: BP 101/51
[2018-10-21 20:00] VITALS: BP 103/62
[2018-10-21] MEDS: FOLIC ACID 1 MG TABLET GT SCH (20:45)
[2018-10-21] MEDS: THIAMINE HCL 100 MG TABLET GT SCH (20:47)
[2018-10-21] MEDS: CHOLECALCIFEROL 1,000 UNIT TABLET GT SCH (20:48)
[2018-10-21] MEDS: BISACODYL 10 MG SUPP.RECT RC PRN (22:24)
[2018-10-22] MEDS: VITAL AF 1.2 1,000 ML LIQUID GT PRN (04:00)
[2018-10-22] MEDS: OMEPRAZOLE 20 MG CAPSULE.DR GT SCH (06:11)
[2018-10-22] MEDS: BACLOFEN 20 MG TABLET GT SCH ×3 (06:11→21:15)
[2018-10-22] MEDS: POLYVINYL ALCOHOL OPHT DROPS 15 ML BOTTLE EACHEYE SCH ×5 (06:11→23:41)
[2018-10-22] MEDS: ACIDOPHILUS/BULGARICUS CHEW TAB GT SCH ×2 (08:09→21:14)
[2018-10-22] MEDS: COD LIVER OIL/ZINC OXIDE OINT 113 GM TUBE TP SCH ×2 (08:10→21:15)
[2018-10-22] MEDS: HYDROGEN PEROXIDE 3% 118 ML BOTTLE TP SCH ×2 (08:10→21:15)
[2018-10-22] MEDS: Z GUARD REMEDY PASTE 57 GM TUBE TOP SCH ×2 (08:10→21:15)
[2018-10-22] MEDS: VITAMINS A AND D OINT TP SCH ×2 (08:10→21:15)
[2018-10-22] MEDS: METHYLPHENIDATE HCL 5 MG TABLET GT SCH (08:16)
[2018-10-22] MEDS: LEVETIRACETAM 500 MG/5 ML LIQUID UDC GT SCH ×2 (08:17→21:14)
[2018-10-22] MEDS: DESMOPRESSIN 0.1 MG TABLET GT SCH (08:18)
[2018-10-22] MEDS: HEPARIN SODIUM,PORCINE 5,000 UNITS/ML VIAL SQ SCH ×2 (08:20→21:18)
[2018-10-22 13:35] VITALS: BP 102/56
[2018-10-22 20:00] VITALS: BP 98/60
[2018-10-22] MEDS: THIAMINE HCL 100 MG TABLET GT SCH (21:14)
[2018-10-22] MEDS: FOLIC ACID 1 MG TABLET GT SCH (21:14)
[2018-10-22] MEDS: CHOLECALCIFEROL 1,000 UNIT TABLET GT SCH (21:15)
[2018-10-23] MEDS: OMEPRAZOLE 20 MG CAPSULE.DR GT SCH (05:36)
[2018-10-23] MEDS: POLYVINYL ALCOHOL OPHT DROPS 15 ML BOTTLE EACHEYE SCH ×3 (05:36→17:08)
[2018-10-23] MEDS: BACLOFEN 20 MG TABLET GT SCH ×3 (05:36→22:15)
[2018-10-23 07:55] VITALS: BP 90/42
[2018-10-23] MEDS: DESMOPRESSIN 0.1 MG TABLET GT SCH (08:32)
[2018-10-23] MEDS: ACIDOPHILUS/BULGARICUS CHEW TAB GT SCH ×2 (08:32→20:23)
[2018-10-23] MEDS: LEVETIRACETAM 500 MG/5 ML LIQUID UDC GT SCH ×2 (08:34→20:23)
[2018-10-23] MEDS: KETOCONAZOLE 2% SHAMPOO 120 ML BOTTLE TP SCH (08:34)
[2018-10-23] MEDS: Z GUARD REMEDY PASTE 57 GM TUBE TOP SCH ×2 (08:34→20:23)
[2018-10-23] MEDS: HYDROGEN PEROXIDE 3% 118 ML BOTTLE TP SCH ×2 (08:34→20:23)
[2018-10-23] MEDS: VITAMINS A AND D OINT TP SCH ×2 (08:34→20:23)
[2018-10-23] MEDS: METHYLPHENIDATE 10MG GT SCH (08:34)
[2018-10-23] MEDS: COD LIVER OIL/ZINC OXIDE OINT 113 GM TUBE TP SCH ×2 (08:34→20:23)
[2018-10-23] MEDS: HEPARIN SODIUM,PORCINE 5,000 UNITS/ML VIAL SQ SCH ×2 (08:38→21:00)
[2018-10-23] MEDS: CHOLECALCIFEROL 1,000 UNIT TABLET GT SCH (20:23)
[2018-10-23] MEDS: FOLIC ACID 1 MG TABLET GT SCH (20:23)
[2018-10-23] MEDS: THIAMINE HCL 100 MG TABLET GT SCH (20:23)
[2018-10-23 20:49] VITALS: BP 107/60
[2018-10-24] MEDS: POLYVINYL ALCOHOL OPHT DROPS 15 ML BOTTLE EACHEYE SCH ×5 (00:34→23:28)
[2018-10-24] MEDS: BACLOFEN 20 MG TABLET GT SCH ×3 (05:14→22:11)
[2018-10-24] MEDS: OMEPRAZOLE 20 MG CAPSULE.DR GT SCH (05:14)
[2018-10-24 08:00] VITALS: BP 113/58
[2018-10-24] MEDS: HYDROGEN PEROXIDE 3% 118 ML BOTTLE TP SCH ×2 (08:33→20:45)
[2018-10-24] MEDS: COD LIVER OIL/ZINC OXIDE OINT 113 GM TUBE TP SCH ×2 (08:33→20:45)
[2018-10-24] MEDS: METHYLPHENIDATE 10MG GT SCH (08:33)
[2018-10-24] MEDS: DESMOPRESSIN 0.1 MG TABLET GT SCH (08:33)
[2018-10-24] MEDS: ACIDOPHILUS/BULGARICUS CHEW TAB GT SCH ×2 (08:33→20:45)
[2018-10-24] MEDS: Z GUARD REMEDY PASTE 57 GM TUBE TOP SCH ×2 (08:33→20:45)
[2018-10-24] MEDS: VITAMINS A AND D OINT TP SCH ×2 (08:33→20:45)
[2018-10-24] MEDS: LEVETIRACETAM 500 MG/5 ML LIQUID UDC GT SCH ×2 (08:33→20:45)
[2018-10-24] MEDS: HEPARIN SODIUM,PORCINE 5,000 UNITS/ML VIAL SQ SCH ×2 (08:35→21:00)
[2018-10-24] MEDS: FOLIC ACID 1 MG TABLET GT SCH (20:45)
[2018-10-24] MEDS: THIAMINE HCL 100 MG TABLET GT SCH (20:45)
[2018-10-24] MEDS: CHOLECALCIFEROL 1,000 UNIT TABLET GT SCH (20:45)
[2018-10-24 20:46] VITALS: BP 102/57
[2018-10-24] MEDS: VITAL AF 1.2 1,000 ML LIQUID GT PRN (23:28)
[2018-10-25] MEDS: BACLOFEN 20 MG TABLET GT SCH ×3 (05:07→22:27)
[2018-10-25] MEDS: OMEPRAZOLE 20 MG CAPSULE.DR GT SCH (05:07)
[2018-10-25] MEDS: POLYVINYL ALCOHOL OPHT DROPS 15 ML BOTTLE EACHEYE SCH ×3 (05:07→18:04)
[2018-10-25] MEDS: BISACODYL 10 MG SUPP.RECT RC PRN (06:25)
[2018-10-25 08:00] VITALS: BP 112/55
[2018-10-25] MEDS: ACIDOPHILUS/BULGARICUS CHEW TAB GT SCH ×2 (09:23→20:19)
[2018-10-25] MEDS: DESMOPRESSIN 0.1 MG TABLET GT SCH (09:23)
[2018-10-25] MEDS: LEVETIRACETAM 500 MG/5 ML LIQUID UDC GT SCH ×2 (09:23→20:19)
[2018-10-25] MEDS: Z GUARD REMEDY PASTE 57 GM TUBE TOP SCH ×2 (09:24→20:20)
[2018-10-25] MEDS: HEPARIN SODIUM,PORCINE 5,000 UNITS/ML VIAL SQ SCH ×2 (09:24→21:45)
[2018-10-25] MEDS: METHYLPHENIDATE 10MG GT SCH (09:24)
[2018-10-25] MEDS: COD LIVER OIL/ZINC OXIDE OINT 113 GM TUBE TP SCH ×2 (09:25→20:20)
[2018-10-25] MEDS: HYDROGEN PEROXIDE 3% 118 ML BOTTLE TP SCH ×2 (09:25→20:20)
[2018-10-25] MEDS: VITAMINS A AND D OINT TP SCH ×2 (09:25→20:20)
[2018-10-25] MEDS: FOLIC ACID 1 MG TABLET GT SCH (20:19)
[2018-10-25] MEDS: THIAMINE HCL 100 MG TABLET GT SCH (20:19)
[2018-10-25] MEDS: CHOLECALCIFEROL 1,000 UNIT TABLET GT SCH (20:20)
[2018-10-25 20:57] VITALS: BP 116/62
[2018-10-25] MEDS: VITAL AF 1.2 1,000 ML LIQUID GT PRN (23:00)
[2018-10-26] MEDS: POLYVINYL ALCOHOL OPHT DROPS 15 ML BOTTLE EACHEYE SCH ×4 (00:21→18:06)
[2018-10-26] MEDS: OMEPRAZOLE 20 MG CAPSULE.DR GT SCH (06:40)
[2018-10-26] MEDS: BACLOFEN 20 MG TABLET GT SCH ×3 (06:40→21:17)
[2018-10-26 08:00] VITALS: BP 108/54
[2018-10-26] MEDS: DESMOPRESSIN 0.1 MG TABLET GT SCH (08:18)
[2018-10-26] MEDS: LEVETIRACETAM 500 MG/5 ML LIQUID UDC GT SCH ×2 (08:18→21:15)
[2018-10-26] MEDS: ACIDOPHILUS/BULGARICUS CHEW TAB GT SCH ×2 (08:18→21:15)
[2018-10-26] MEDS: VITAMINS A AND D OINT TP SCH ×2 (08:22→21:17)
[2018-10-26] MEDS: Z GUARD REMEDY PASTE 57 GM TUBE TOP SCH ×2 (08:22→21:17)
[2018-10-26] MEDS: HYDROGEN PEROXIDE 3% 118 ML BOTTLE TP SCH ×2 (08:22→21:17)
[2018-10-26] MEDS: COD LIVER OIL/ZINC OXIDE OINT 113 GM TUBE TP SCH ×2 (08:22→21:17)
[2018-10-26] MEDS: HEPARIN SODIUM,PORCINE 5,000 UNITS/ML VIAL SQ SCH ×2 (08:36→21:18)
[2018-10-26] MEDS: METHYLPHENIDATE 10MG GT SCH (08:36)
[2018-10-26] MEDS: VITAL AF 1.2 1,000 ML LIQUID GT PRN (19:07)
[2018-10-26 20:00] VITALS: BP 90/51
[2018-10-26] MEDS: FOLIC ACID 1 MG TABLET GT SCH (21:15)
[2018-10-26] MEDS: CHOLECALCIFEROL 1,000 UNIT TABLET GT SCH (21:16)
[2018-10-26] MEDS: THIAMINE HCL 100 MG TABLET GT SCH (21:16)
[2018-10-27] MEDS: POLYVINYL ALCOHOL OPHT DROPS 15 ML BOTTLE EACHEYE SCH ×4 (00:23→17:18)
[2018-10-27] MEDS: OMEPRAZOLE 20 MG CAPSULE.DR GT SCH (05:09)
[2018-10-27] MEDS: BACLOFEN 20 MG TABLET GT SCH ×3 (05:09→21:03)
[2018-10-27 08:00] VITALS: BP 106/62
[2018-10-27] MEDS: DESMOPRESSIN 0.1 MG TABLET GT SCH (08:07)
[2018-10-27] MEDS: ACIDOPHILUS/BULGARICUS CHEW TAB GT SCH ×2 (08:07→20:40)
[2018-10-27] MEDS: LEVETIRACETAM 500 MG/5 ML LIQUID UDC GT SCH ×2 (08:07→20:41)
[2018-10-27] MEDS: COD LIVER OIL/ZINC OXIDE OINT 113 GM TUBE TP SCH ×2 (08:08→20:42)
[2018-10-27] MEDS: HYDROGEN PEROXIDE 3% 118 ML BOTTLE TP SCH ×2 (08:08→20:42)
[2018-10-27] MEDS: HEPARIN SODIUM,PORCINE 5,000 UNITS/ML VIAL SQ SCH ×2 (08:08→20:48)
[2018-10-27] MEDS: VITAMINS A AND D OINT TP SCH ×2 (08:08→20:42)
[2018-10-27] MEDS: Z GUARD REMEDY PASTE 57 GM TUBE TOP SCH ×2 (08:08→20:42)
[2018-10-27] MEDS: KETOCONAZOLE 2% SHAMPOO 120 ML BOTTLE TP SCH (08:10)
[2018-10-27] MEDS: METHYLPHENIDATE 10MG GT SCH (09:14)
[2018-10-27 20:13] VITALS: BP 101/51
[2018-10-27] MEDS: FOLIC ACID 1 MG TABLET GT SCH (20:41)
[2018-10-27] MEDS: THIAMINE HCL 100 MG TABLET GT SCH (20:42)
[2018-10-27] MEDS: CHOLECALCIFEROL 1,000 UNIT TABLET GT SCH (20:42)
[2018-10-28] MEDS: POLYVINYL ALCOHOL OPHT DROPS 15 ML BOTTLE EACHEYE SCH ×4 (05:44→17:57)
[2018-10-28] MEDS: BACLOFEN 20 MG TABLET GT SCH ×3 (05:45→22:05)
[2018-10-28] MEDS: OMEPRAZOLE 20 MG CAPSULE.DR GT SCH (05:45)
[2018-10-28 08:02] VITALS: BP 104/61
[2018-10-28] MEDS: DESMOPRESSIN 0.1 MG TABLET GT SCH (08:35)
[2018-10-28] MEDS: ACIDOPHILUS/BULGARICUS CHEW TAB GT SCH ×2 (08:35→20:28)
[2018-10-28] MEDS: LEVETIRACETAM 500 MG/5 ML LIQUID UDC GT SCH ×2 (08:36→20:28)
[2018-10-28] MEDS: HEPARIN SODIUM,PORCINE 5,000 UNITS/ML VIAL SQ SCH ×2 (08:38→20:37)
[2018-10-28] MEDS: METHYLPHENIDATE 10MG GT SCH (08:39)
[2018-10-28] MEDS: Z GUARD REMEDY PASTE 57 GM TUBE TOP SCH ×2 (08:39→20:31)
[2018-10-28] MEDS: COD LIVER OIL/ZINC OXIDE OINT 113 GM TUBE TP SCH ×2 (08:40→20:31)
[2018-10-28] MEDS: VITAMINS A AND D OINT TP SCH ×2 (08:40→20:31)
[2018-10-28] MEDS: HYDROGEN PEROXIDE 3% 118 ML BOTTLE TP SCH ×2 (08:40→20:31)
[2018-10-28 20:05] VITALS: BP 100/51
[2018-10-28] MEDS: FOLIC ACID 1 MG TABLET GT SCH (20:28)
[2018-10-28] MEDS: CHOLECALCIFEROL 1,000 UNIT TABLET GT SCH (20:29)
[2018-10-28] MEDS: THIAMINE HCL 100 MG TABLET GT SCH (20:29)
[2018-10-29] MEDS: POLYVINYL ALCOHOL OPHT DROPS 15 ML BOTTLE EACHEYE SCH ×4 (00:18→17:19)
[2018-10-29] MEDS: OMEPRAZOLE 20 MG CAPSULE.DR GT SCH (05:12)
[2018-10-29] MEDS: BACLOFEN 20 MG TABLET GT SCH ×3 (05:12→21:36)
[2018-10-29 07:55] VITALS: BP 104/61
[2018-10-29] MEDS: DESMOPRESSIN 0.1 MG TABLET GT SCH (08:34)
[2018-10-29] MEDS: ACIDOPHILUS/BULGARICUS CHEW TAB GT SCH ×2 (08:34→20:47)
[2018-10-29] MEDS: LEVETIRACETAM 500 MG/5 ML LIQUID UDC GT SCH ×2 (08:35→20:47)
[2018-10-29] MEDS: METHYLPHENIDATE 10MG GT SCH (08:35)
[2018-10-29] MEDS: Z GUARD REMEDY PASTE 57 GM TUBE TOP SCH ×2 (08:35→20:55)
[2018-10-29] MEDS: COD LIVER OIL/ZINC OXIDE OINT 113 GM TUBE TP SCH ×2 (08:36→20:55)
[2018-10-29] MEDS: HYDROGEN PEROXIDE 3% 118 ML BOTTLE TP SCH ×2 (08:36→20:55)
[2018-10-29] MEDS: HEPARIN SODIUM,PORCINE 5,000 UNITS/ML VIAL SQ SCH ×2 (08:36→20:55)
[2018-10-29] MEDS: VITAMINS A AND D OINT TP SCH ×2 (08:36→20:55)
[2018-10-29] MEDS: VITAL AF 1.2 1,000 ML LIQUID GT PRN (10:59)
[2018-10-29] MEDS: BISACODYL 10 MG SUPP.RECT RC PRN (18:18)
[2018-10-29] MEDS: THIAMINE HCL 100 MG TABLET GT SCH (20:47)
[2018-10-29] MEDS: CHOLECALCIFEROL 1,000 UNIT TABLET GT SCH (20:47)
[2018-10-29] MEDS: FOLIC ACID 1 MG TABLET GT SCH (20:47)
[2018-10-29 22:00] VITALS: BP 97/52
[2018-10-30] MEDS: POLYVINYL ALCOHOL OPHT DROPS 15 ML BOTTLE EACHEYE SCH ×4 (00:39→17:34)
[2018-10-30] MEDS: OMEPRAZOLE 20 MG CAPSULE.DR GT SCH (05:47)
[2018-10-30] MEDS: BACLOFEN 20 MG TABLET GT SCH ×3 (05:47→21:04)
[2018-10-30] MEDS: DESMOPRESSIN 0.1 MG TABLET GT SCH (08:36)
[2018-10-30] MEDS: LEVETIRACETAM 500 MG/5 ML LIQUID UDC GT SCH ×2 (08:36→20:55)
[2018-10-30] MEDS: ACIDOPHILUS/BULGARICUS CHEW TAB GT SCH ×2 (08:36→20:53)
[2018-10-30] MEDS: METHYLPHENIDATE 10MG GT SCH (08:38)
[2018-10-30] MEDS: HYDROGEN PEROXIDE 3% 118 ML BOTTLE TP SCH ×2 (08:39→20:55)
[2018-10-30] MEDS: KETOCONAZOLE 2% SHAMPOO 120 ML BOTTLE TP SCH (08:39)
[2018-10-30] MEDS: COD LIVER OIL/ZINC OXIDE OINT 113 GM TUBE TP SCH ×2 (08:39→20:55)
[2018-10-30] MEDS: Z GUARD REMEDY PASTE 57 GM TUBE TOP SCH ×2 (08:39→20:55)
[2018-10-30] MEDS: VITAMINS A AND D OINT TP SCH ×2 (08:39→20:55)
[2018-10-30] MEDS: HEPARIN SODIUM,PORCINE 5,000 UNITS/ML VIAL SQ SCH ×2 (08:39→20:59)
[2018-10-30 12:10] VITALS: BP 105/60
[2018-10-30] MEDS: CHOLECALCIFEROL 1,000 UNIT TABLET GT SCH (20:55)
[2018-10-30] MEDS: FOLIC ACID 1 MG TABLET GT SCH (20:55)
[2018-10-30] MEDS: THIAMINE HCL 100 MG TABLET GT SCH (20:55)
[2018-10-30 22:38] VITALS: BP 96/57
[2018-10-31] MEDS: VITAL AF 1.2 1,000 ML LIQUID GT PRN (01:09)
[2018-10-31] MEDS: POLYVINYL ALCOHOL OPHT DROPS 15 ML BOTTLE EACHEYE SCH ×4 (05:37→18:00)
[2018-10-31] MEDS: OMEPRAZOLE 20 MG CAPSULE.DR GT SCH (05:38)
[2018-10-31] MEDS: BACLOFEN 20 MG TABLET GT SCH ×3 (05:38→22:36)
[2018-10-31] MEDS: ACIDOPHILUS/BULGARICUS CHEW TAB GT SCH ×2 (08:07→20:40)
[2018-10-31] MEDS: Z GUARD REMEDY PASTE 57 GM TUBE TOP SCH ×2 (08:07→20:40)
[2018-10-31] MEDS: HEPARIN SODIUM,PORCINE 5,000 UNITS/ML VIAL SQ SCH ×2 (08:07→21:00)
[2018-10-31] MEDS: METHYLPHENIDATE 10MG GT SCH (08:07)
[2018-10-31] MEDS: DESMOPRESSIN 0.1 MG TABLET GT SCH (08:07)
[2018-10-31] MEDS: LEVETIRACETAM 500 MG/5 ML LIQUID UDC GT SCH ×2 (08:07→20:40)
[2018-10-31] MEDS: VITAMINS A AND D OINT TP SCH ×2 (08:08→20:40)
[2018-10-31] MEDS: COD LIVER OIL/ZINC OXIDE OINT 113 GM TUBE TP SCH ×2 (08:08→20:40)
[2018-10-31] MEDS: HYDROGEN PEROXIDE 3% 118 ML BOTTLE TP SCH ×2 (08:08→20:40)
[2018-10-31 11:21] VITALS: BP 90/41
[2018-10-31] MEDS: FOLIC ACID 1 MG TABLET GT SCH (20:40)
[2018-10-31] MEDS: CHOLECALCIFEROL 1,000 UNIT TABLET GT SCH (20:40)
[2018-10-31] MEDS: THIAMINE HCL 100 MG TABLET GT SCH (20:40)
[2018-10-31 22:49] VITALS: BP 97/54
[2018-11-01] MEDS: BACLOFEN 20 MG TABLET GT SCH ×3 (06:33→22:05)
[2018-11-01] MEDS: OMEPRAZOLE 20 MG CAPSULE.DR GT SCH (06:33)
[2018-11-01] MEDS: POLYVINYL ALCOHOL OPHT DROPS 15 ML BOTTLE EACHEYE SCH ×4 (06:33→17:15)
[2018-11-01 08:02] VITALS: BP 82/48
[2018-11-01] MEDS: COD LIVER OIL/ZINC OXIDE OINT 113 GM TUBE TP SCH ×2 (09:00→20:16)
[2018-11-01] MEDS: ACIDOPHILUS/BULGARICUS CHEW TAB GT SCH ×2 (09:00→20:14)
[2018-11-01] MEDS: METHYLPHENIDATE 10MG GT SCH (09:00)
[2018-11-01] MEDS: Z GUARD REMEDY PASTE 57 GM TUBE TOP SCH ×2 (09:00→20:16)
[2018-11-01] MEDS: LEVETIRACETAM 500 MG/5 ML LIQUID UDC GT SCH ×2 (09:00→20:15)
[2018-11-01] MEDS: HYDROGEN PEROXIDE 3% 118 ML BOTTLE TP SCH ×2 (09:00→20:16)
[2018-11-01] MEDS: HEPARIN SODIUM,PORCINE 5,000 UNITS/ML VIAL SQ SCH ×2 (09:00→21:00)
[2018-11-01] MEDS: VITAMINS A AND D OINT TP SCH ×2 (09:00→20:16)
[2018-11-01] MEDS: DESMOPRESSIN 0.1 MG TABLET GT SCH (10:01)
[2018-11-01] MEDS: FOLIC ACID 1 MG TABLET GT SCH (20:14)
[2018-11-01] MEDS: THIAMINE HCL 100 MG TABLET GT SCH (20:15)
[2018-11-01] MEDS: CHOLECALCIFEROL 1,000 UNIT TABLET GT SCH (20:16)
[2018-11-01 23:09] VITALS: BP 97/56
[2018-11-02] MEDS: POLYVINYL ALCOHOL OPHT DROPS 15 ML BOTTLE EACHEYE SCH ×5 (06:41→23:22)
[2018-11-02] MEDS: OMEPRAZOLE 20 MG CAPSULE.DR GT SCH (06:41)
[2018-11-02] MEDS: BACLOFEN 20 MG TABLET GT SCH ×3 (06:41→21:02)
[2018-11-02 07:18] LABS: BASOPHILS % (AUTO) 0.9 % (0.0-2.0); EOSINOPHILS # (AUTO) 0.2 K/uL (0.0-0.7); EOSINOPHILS % (AUTO) 4.2 % (0.0-7.0); HEMATOCRIT 29.1 % (31.2-41.9); LYMPHOCYTES # (AUTO) 1.6 K/uL (20.0-40.0); LYMPHOCYTES % (AUTO) 34.8 % (20.5-51.5); MEAN CORPUSCULAR HEMOGLOBIN 31.9 uug (24.7-32.8); MEAN CORPUSCULAR HGB CONC 34 g/dL (32.3-35.6); MEAN CORPUSCULAR VOLUME 92.6 fL (75.5-95.3); MONOCYTES # (AUTO) 0.4 K/uL (2.0-10.0); MONOCYTES % (AUTO) 9.6 % (0.0-11.0); NEUTROPHILS # (AUTO) 2.3 K/uL (1.8-8.9); NEUTROPHILS % (AUTO) 50.5 % (38.5-71.5); PLATELET COUNT (AUTO) 176 K/uL (179-408); RED BLOOD CELL COUNT(AUTO) 3.14 MIL/uL (3.63-4.92); WHITE BLOOD COUNT (AUTO) 4.5 K/uL (3.8-11.8)
[2018-11-02 07:40] LABS: ALANINE AMINOTRANSFERASE 69 U/L (14-59); ALKALINE PHOSPHATASE 85 U/L (50-136); ASPARTATE AMINOTRANSFERASE 18 U/L (15-37); BILIRUBIN,TOTAL 0.5 mg/dL (0.2-1.0); CARBON DIOXIDE 25 mmol/L (21-32); CHLORIDE 102 mmol/L (98-107); GLUCOSE 81 mg/dL (74-106); TOTAL PROTEIN, SERUM 6.7 g/dL (6.4-8.2); UREA NITROGEN, BLOOD 17 mg/dL (7-18)
[2018-11-02 07:44] LABS: CREATININE 0.4 mg/dL (0.6-1.3)
[2018-11-02 08:00] VITALS: BP 103/61
[2018-11-02] MEDS: ACIDOPHILUS/BULGARICUS CHEW TAB GT SCH ×2 (08:22→20:58)
[2018-11-02] MEDS: Z GUARD REMEDY PASTE 57 GM TUBE TOP SCH ×2 (08:23→21:02)
[2018-11-02] MEDS: VITAMINS A AND D OINT TP SCH ×2 (08:23→21:02)
[2018-11-02] MEDS: HYDROGEN PEROXIDE 3% 118 ML BOTTLE TP SCH ×2 (08:23→21:02)
[2018-11-02] MEDS: COD LIVER OIL/ZINC OXIDE OINT 113 GM TUBE TP SCH ×2 (08:23→21:02)
[2018-11-02] MEDS: DESMOPRESSIN 0.1 MG TABLET GT SCH (08:24)
[2018-11-02] MEDS: METHYLPHENIDATE 10MG GT SCH (08:45)
[2018-11-02] MEDS: HEPARIN SODIUM,PORCINE 5,000 UNITS/ML VIAL SQ SCH ×2 (08:46→21:00)
[2018-11-02] MEDS: LEVETIRACETAM 500 MG/5 ML LIQUID UDC GT SCH ×2 (13:15→21:00)
[2018-11-02] MEDS: FOLIC ACID 1 MG TABLET GT SCH (20:59)
[2018-11-02] MEDS: THIAMINE HCL 100 MG TABLET GT SCH (21:01)
[2018-11-02] MEDS: CHOLECALCIFEROL 1,000 UNIT TABLET GT SCH (21:02)
[2018-11-02 22:36] VITALS: BP 94/50
[2018-11-03] MEDS: VITAL AF 1.2 1,000 ML LIQUID GT PRN ×2 (01:55→23:08)
[2018-11-03] MEDS: POLYVINYL ALCOHOL OPHT DROPS 15 ML BOTTLE EACHEYE SCH ×3 (06:01→17:29)
[2018-11-03] MEDS: OMEPRAZOLE 20 MG CAPSULE.DR GT SCH (06:01)
[2018-11-03] MEDS: BACLOFEN 20 MG TABLET GT SCH ×3 (06:01→21:26)
[2018-11-03] MEDS: LEVETIRACETAM 500 MG/5 ML LIQUID UDC GT SCH ×2 (08:25→21:25)
[2018-11-03] MEDS: METHYLPHENIDATE 10MG GT SCH (08:25)
[2018-11-03] MEDS: ACIDOPHILUS/BULGARICUS CHEW TAB GT SCH ×2 (08:25→21:25)
[2018-11-03] MEDS: DESMOPRESSIN 0.1 MG TABLET GT SCH (08:25)
[2018-11-03] MEDS: Z GUARD REMEDY PASTE 57 GM TUBE TOP SCH ×2 (08:27→21:25)
[2018-11-03] MEDS: HEPARIN SODIUM,PORCINE 5,000 UNITS/ML VIAL SQ SCH ×2 (08:27→21:26)
[2018-11-03] MEDS: VITAMINS A AND D OINT TP SCH ×2 (08:27→21:26)
[2018-11-03] MEDS: HYDROGEN PEROXIDE 3% 118 ML BOTTLE TP SCH ×2 (08:27→21:26)
[2018-11-03] MEDS: COD LIVER OIL/ZINC OXIDE OINT 113 GM TUBE TP SCH ×2 (08:27→21:26)
[2018-11-03] MEDS: KETOCONAZOLE 2% SHAMPOO 120 ML BOTTLE TP SCH (08:28)
[2018-11-03 10:42] VITALS: BP 103/47
[2018-11-03] MEDS: FOLIC ACID 1 MG TABLET GT SCH (21:25)
[2018-11-03] MEDS: THIAMINE HCL 100 MG TABLET GT SCH (21:25)
[2018-11-03] MEDS: CHOLECALCIFEROL 1,000 UNIT TABLET GT SCH (21:25)
[2018-11-03 23:04] VITALS: BP 95/50
[2018-11-04] MEDS: POLYVINYL ALCOHOL OPHT DROPS 15 ML BOTTLE EACHEYE SCH ×4 (00:46→16:56)
[2018-11-04] MEDS: OMEPRAZOLE 20 MG CAPSULE.DR GT SCH (05:17)
[2018-11-04] MEDS: BACLOFEN 20 MG TABLET GT SCH ×3 (05:17→21:04)
[2018-11-04] MEDS: ACIDOPHILUS/BULGARICUS CHEW TAB GT SCH ×2 (08:48→21:01)
[2018-11-04] MEDS: DESMOPRESSIN 0.1 MG TABLET GT SCH (08:48)
[2018-11-04] MEDS: LEVETIRACETAM 500 MG/5 ML LIQUID UDC GT SCH ×2 (08:48→21:01)
[2018-11-04] MEDS: METHYLPHENIDATE 10MG GT SCH (08:48)
[2018-11-04] MEDS: HEPARIN SODIUM,PORCINE 5,000 UNITS/ML VIAL SQ SCH ×2 (08:49→21:03)
[2018-11-04] MEDS: COD LIVER OIL/ZINC OXIDE OINT 113 GM TUBE TP SCH ×2 (08:50→21:03)
[2018-11-04] MEDS: Z GUARD REMEDY PASTE 57 GM TUBE TOP SCH ×2 (08:50→21:03)
[2018-11-04] MEDS: HYDROGEN PEROXIDE 3% 118 ML BOTTLE TP SCH ×2 (08:50→21:04)
[2018-11-04] MEDS: VITAMINS A AND D OINT TP SCH ×2 (08:50→21:04)
[2018-11-04 10:53] VITALS: BP 104/53
[2018-11-04] MEDS: THIAMINE HCL 100 MG TABLET GT SCH (21:01)
[2018-11-04] MEDS: CHOLECALCIFEROL 1,000 UNIT TABLET GT SCH (21:01)
[2018-11-04] MEDS: FOLIC ACID 1 MG TABLET GT SCH (21:01)
[2018-11-04] MEDS: VITAL AF 1.2 1,000 ML LIQUID GT PRN (22:43)
[2018-11-04 23:50] VITALS: BP 98/54
[2018-11-05] MEDS: POLYVINYL ALCOHOL OPHT DROPS 15 ML BOTTLE EACHEYE SCH ×4 (00:10→17:22)
[2018-11-05] MEDS: BISACODYL 10 MG SUPP.RECT RC PRN (02:00)
[2018-11-05] MEDS: OMEPRAZOLE 20 MG CAPSULE.DR GT SCH (05:50)
[2018-11-05] MEDS: BACLOFEN 20 MG TABLET GT SCH ×3 (05:50→22:18)
[2018-11-05] MEDS: LEVETIRACETAM 500 MG/5 ML LIQUID UDC GT SCH ×2 (08:01→20:43)
[2018-11-05] MEDS: ACIDOPHILUS/BULGARICUS CHEW TAB GT SCH ×2 (08:01→20:43)
[2018-11-05] MEDS: DESMOPRESSIN 0.1 MG TABLET GT SCH (08:01)
[2018-11-05] MEDS: HEPARIN SODIUM,PORCINE 5,000 UNITS/ML VIAL SQ SCH ×2 (08:05→21:00)
[2018-11-05] MEDS: METHYLPHENIDATE 10MG GT SCH (08:07)
[2018-11-05] MEDS: Z GUARD REMEDY PASTE 57 GM TUBE TOP SCH ×2 (08:07→20:43)
[2018-11-05] MEDS: COD LIVER OIL/ZINC OXIDE OINT 113 GM TUBE TP SCH ×2 (08:08→20:43)
[2018-11-05] MEDS: HYDROGEN PEROXIDE 3% 118 ML BOTTLE TP SCH ×2 (08:08→20:43)
[2018-11-05] MEDS: VITAMINS A AND D OINT TP SCH ×2 (08:08→20:43)
[2018-11-05 10:31] VITALS: BP 101/50
[2018-11-05] MEDS: VITAL AF 1.2 1,000 ML LIQUID GT PRN (19:17)
[2018-11-05] MEDS: FOLIC ACID 1 MG TABLET GT SCH (20:43)
[2018-11-05] MEDS: CHOLECALCIFEROL 1,000 UNIT TABLET GT SCH (20:43)
[2018-11-05] MEDS: THIAMINE HCL 100 MG TABLET GT SCH (20:43)
[2018-11-05 22:11] VITALS: BP 100/50
[2018-11-06] MEDS: POLYVINYL ALCOHOL OPHT DROPS 15 ML BOTTLE EACHEYE SCH ×4 (00:26→17:03)
[2018-11-06] MEDS: OMEPRAZOLE 20 MG CAPSULE.DR GT SCH (05:09)
[2018-11-06] MEDS: BACLOFEN 20 MG TABLET GT SCH ×3 (05:09→22:32)
[2018-11-06 08:00] VITALS: BP 96/46
[2018-11-06] MEDS: DESMOPRESSIN 0.1 MG TABLET GT SCH (08:11)
[2018-11-06] MEDS: LEVETIRACETAM 500 MG/5 ML LIQUID UDC GT SCH ×2 (08:11→20:35)
[2018-11-06] MEDS: ACIDOPHILUS/BULGARICUS CHEW TAB GT SCH ×2 (08:11→20:35)
[2018-11-06] MEDS: Z GUARD REMEDY PASTE 57 GM TUBE TOP SCH ×2 (08:12→20:37)
[2018-11-06] MEDS: METHYLPHENIDATE 10MG GT SCH (08:12)
[2018-11-06] MEDS: HYDROGEN PEROXIDE 3% 118 ML BOTTLE TP SCH ×2 (08:12→20:37)
[2018-11-06] MEDS: KETOCONAZOLE 2% SHAMPOO 120 ML BOTTLE TP SCH (08:12)
[2018-11-06] MEDS: COD LIVER OIL/ZINC OXIDE OINT 113 GM TUBE TP SCH ×2 (08:12→20:37)
[2018-11-06] MEDS: VITAMINS A AND D OINT TP SCH ×2 (08:12→20:37)
[2018-11-06] MEDS: HEPARIN SODIUM,PORCINE 5,000 UNITS/ML VIAL SQ SCH ×2 (08:13→20:37)
[2018-11-06 20:13] VITALS: BP 91/49
[2018-11-06] MEDS: FOLIC ACID 1 MG TABLET GT SCH (20:35)
[2018-11-06] MEDS: THIAMINE HCL 100 MG TABLET GT SCH (20:36)
[2018-11-06] MEDS: CHOLECALCIFEROL 1,000 UNIT TABLET GT SCH (20:36)
[2018-11-06 21:00] VITALS: BP 102/50
[2018-11-07] MEDS: POLYVINYL ALCOHOL OPHT DROPS 15 ML BOTTLE EACHEYE SCH ×4 (00:48→17:33)
[2018-11-07] MEDS: OMEPRAZOLE 20 MG CAPSULE.DR GT SCH (05:30)
[2018-11-07] MEDS: BACLOFEN 20 MG TABLET GT SCH ×3 (05:30→22:08)
[2018-11-07 08:00] VITALS: BP 105/59
[2018-11-07] MEDS: DESMOPRESSIN 0.1 MG TABLET GT SCH (08:11)
[2018-11-07] MEDS: METHYLPHENIDATE 10MG GT SCH (08:11)
[2018-11-07] MEDS: LEVETIRACETAM 500 MG/5 ML LIQUID UDC GT SCH ×2 (08:11→20:37)
[2018-11-07] MEDS: Z GUARD REMEDY PASTE 57 GM TUBE TOP SCH ×2 (08:11→20:37)
[2018-11-07] MEDS: ACIDOPHILUS/BULGARICUS CHEW TAB GT SCH ×2 (08:11→20:35)
[2018-11-07] MEDS: HYDROGEN PEROXIDE 3% 118 ML BOTTLE TP SCH ×2 (08:12→20:39)
[2018-11-07] MEDS: HEPARIN SODIUM,PORCINE 5,000 UNITS/ML VIAL SQ SCH ×2 (08:12→20:35)
[2018-11-07] MEDS: VITAMINS A AND D OINT TP SCH ×2 (08:12→20:39)
[2018-11-07] MEDS: COD LIVER OIL/ZINC OXIDE OINT 113 GM TUBE TP SCH ×2 (08:12→20:39)
[2018-11-07] MEDS: VITAL AF 1.2 1,000 ML LIQUID GT PRN (14:17)
[2018-11-07 20:36] VITALS: BP 111/57
[2018-11-07] MEDS: CHOLECALCIFEROL 1,000 UNIT TABLET GT SCH (20:37)
[2018-11-07] MEDS: FOLIC ACID 1 MG TABLET GT SCH (20:37)
[2018-11-07] MEDS: THIAMINE HCL 100 MG TABLET GT SCH (20:37)
[2018-11-08] MEDS: OMEPRAZOLE 20 MG CAPSULE.DR GT SCH (05:34)
[2018-11-08] MEDS: BACLOFEN 20 MG TABLET GT SCH ×3 (05:34→22:06)
[2018-11-08] MEDS: POLYVINYL ALCOHOL OPHT DROPS 15 ML BOTTLE EACHEYE SCH ×5 (05:34→23:28)
[2018-11-08 08:00] VITALS: BP 108/56
[2018-11-08] MEDS: DESMOPRESSIN 0.1 MG TABLET GT SCH (08:40)
[2018-11-08] MEDS: HEPARIN SODIUM,PORCINE 5,000 UNITS/ML VIAL SQ SCH ×2 (08:41→20:20)
[2018-11-08] MEDS: ACIDOPHILUS/BULGARICUS CHEW TAB GT SCH ×2 (08:44→20:20)
[2018-11-08] MEDS: METHYLPHENIDATE 10MG GT SCH (08:45)
[2018-11-08] MEDS: COD LIVER OIL/ZINC OXIDE OINT 113 GM TUBE TP SCH ×2 (08:45→20:21)
[2018-11-08] MEDS: Z GUARD REMEDY PASTE 57 GM TUBE TOP SCH ×2 (08:45→20:21)
[2018-11-08] MEDS: LEVETIRACETAM 500 MG/5 ML LIQUID UDC GT SCH ×2 (08:45→20:20)
[2018-11-08] MEDS: VITAMINS A AND D OINT TP SCH ×2 (08:45→20:21)
[2018-11-08] MEDS: HYDROGEN PEROXIDE 3% 118 ML BOTTLE TP SCH ×2 (08:45→20:21)
[2018-11-08] MEDS: THIAMINE HCL 100 MG TABLET GT SCH (20:20)
[2018-11-08] MEDS: FOLIC ACID 1 MG TABLET GT SCH (20:20)
[2018-11-08] MEDS: CHOLECALCIFEROL 1,000 UNIT TABLET GT SCH (20:20)
[2018-11-08 21:05] VITALS: BP 116/60
[2018-11-09] MEDS: BACLOFEN 20 MG TABLET GT SCH ×3 (05:17→21:07)
[2018-11-09] MEDS: OMEPRAZOLE 20 MG CAPSULE.DR GT SCH (05:17)
[2018-11-09] MEDS: POLYVINYL ALCOHOL OPHT DROPS 15 ML BOTTLE EACHEYE SCH ×2 (05:17→18:20)
[2018-11-09 08:01] VITALS: BP 105/55
[2018-11-09] MEDS: ACIDOPHILUS/BULGARICUS CHEW TAB GT SCH ×2 (08:12→20:20)
[2018-11-09] MEDS: DESMOPRESSIN 0.1 MG TABLET GT SCH (08:12)
[2018-11-09] MEDS: LEVETIRACETAM 500 MG/5 ML LIQUID UDC GT SCH ×2 (08:13→21:07)
[2018-11-09] MEDS: METHYLPHENIDATE 10MG GT SCH (08:13)
[2018-11-09] MEDS: HYDROGEN PEROXIDE 3% 118 ML BOTTLE TP SCH ×2 (08:14→20:25)
[2018-11-09] MEDS: COD LIVER OIL/ZINC OXIDE OINT 113 GM TUBE TP SCH ×2 (08:14→20:25)
[2018-11-09] MEDS: VITAMINS A AND D OINT TP SCH ×2 (08:14→20:26)
[2018-11-09] MEDS: Z GUARD REMEDY PASTE 57 GM TUBE TOP SCH ×2 (08:14→20:25)
[2018-11-09] MEDS: HEPARIN SODIUM,PORCINE 5,000 UNITS/ML VIAL SQ SCH ×2 (08:16→20:25)
[2018-11-09] MEDS: VITAL AF 1.2 1,000 ML LIQUID GT PRN (13:43)
[2018-11-09 20:08] VITALS: BP 115/62
[2018-11-09] MEDS: FOLIC ACID 1 MG TABLET GT SCH (20:21)
[2018-11-09] MEDS: CHOLECALCIFEROL 1,000 UNIT TABLET GT SCH (20:22)
[2018-11-09] MEDS: THIAMINE HCL 100 MG TABLET GT SCH (20:22)
[2018-11-10] MEDS: POLYVINYL ALCOHOL OPHT DROPS 15 ML BOTTLE EACHEYE SCH ×4 (00:13→18:22)
[2018-11-10] MEDS: BACLOFEN 20 MG TABLET GT SCH ×3 (05:57→21:08)
[2018-11-10] MEDS: OMEPRAZOLE 20 MG CAPSULE.DR GT SCH (05:57)
[2018-11-10 08:02] VITALS: BP 112/57
[2018-11-10] MEDS: HEPARIN SODIUM,PORCINE 5,000 UNITS/ML VIAL SQ SCH ×2 (08:07→21:16)
[2018-11-10] MEDS: DESMOPRESSIN 0.1 MG TABLET GT SCH (08:10)
[2018-11-10] MEDS: Z GUARD REMEDY PASTE 57 GM TUBE TOP SCH ×2 (08:11→20:15)
[2018-11-10] MEDS: COD LIVER OIL/ZINC OXIDE OINT 113 GM TUBE TP SCH ×2 (08:11→20:15)
[2018-11-10] MEDS: LEVETIRACETAM 500 MG/5 ML LIQUID UDC GT SCH ×2 (08:11→20:13)
[2018-11-10] MEDS: ACIDOPHILUS/BULGARICUS CHEW TAB GT SCH ×2 (08:11→20:13)
[2018-11-10] MEDS: HYDROGEN PEROXIDE 3% 118 ML BOTTLE TP SCH ×2 (08:12→20:15)
[2018-11-10] MEDS: VITAMINS A AND D OINT TP SCH ×2 (08:13→20:15)
[2018-11-10] MEDS: KETOCONAZOLE 2% SHAMPOO 120 ML BOTTLE TP SCH (08:13)
[2018-11-10] MEDS: METHYLPHENIDATE 10MG GT SCH (08:14)
[2018-11-10] MEDS: BISACODYL 10 MG SUPP.RECT RC PRN (10:41)
[2018-11-10] MEDS: VITAL AF 1.2 1,000 ML LIQUID GT PRN (10:53)
[2018-11-10 20:00] VITALS: BP 103/59
[2018-11-10] MEDS: FOLIC ACID 1 MG TABLET GT SCH (20:13)
[2018-11-10] MEDS: CHOLECALCIFEROL 1,000 UNIT TABLET GT SCH (20:14)
[2018-11-10] MEDS: THIAMINE HCL 100 MG TABLET GT SCH (20:14)
[2018-11-11] MEDS: POLYVINYL ALCOHOL OPHT DROPS 15 ML BOTTLE EACHEYE SCH ×5 (00:21→23:42)
[2018-11-11] MEDS: VITAL AF 1.2 1,000 ML LIQUID GT PRN (05:24)
[2018-11-11] MEDS: BACLOFEN 20 MG TABLET GT SCH ×3 (05:24→21:41)
[2018-11-11] MEDS: OMEPRAZOLE 20 MG CAPSULE.DR GT SCH (05:24)
[2018-11-11 08:00] VITALS: BP 113/60
[2018-11-11] MEDS: DESMOPRESSIN 0.1 MG TABLET GT SCH (08:23)
[2018-11-11] MEDS: ACIDOPHILUS/BULGARICUS CHEW TAB GT SCH ×2 (08:26→20:15)
[2018-11-11] MEDS: LEVETIRACETAM 500 MG/5 ML LIQUID UDC GT SCH ×2 (08:30→20:15)
[2018-11-11] MEDS: Z GUARD REMEDY PASTE 57 GM TUBE TOP SCH ×2 (08:31→20:15)
[2018-11-11] MEDS: HYDROGEN PEROXIDE 3% 118 ML BOTTLE TP SCH ×2 (08:32→20:15)
[2018-11-11] MEDS: COD LIVER OIL/ZINC OXIDE OINT 113 GM TUBE TP SCH ×2 (08:32→20:15)
[2018-11-11] MEDS: VITAMINS A AND D OINT TP SCH ×2 (08:32→20:15)
[2018-11-11] MEDS: HEPARIN SODIUM,PORCINE 5,000 UNITS/ML VIAL SQ SCH ×2 (08:33→21:41)
[2018-11-11] MEDS: METHYLPHENIDATE 10MG GT SCH (08:36)
[2018-11-11 20:00] VITALS: BP 101/57
[2018-11-11] MEDS: FOLIC ACID 1 MG TABLET GT SCH (20:15)
[2018-11-11] MEDS: CHOLECALCIFEROL 1,000 UNIT TABLET GT SCH (20:15)
[2018-11-11] MEDS: THIAMINE HCL 100 MG TABLET GT SCH (20:15)
[2018-11-12] MEDS: VITAL AF 1.2 1,000 ML LIQUID GT PRN (05:12)
[2018-11-12] MEDS: POLYVINYL ALCOHOL OPHT DROPS 15 ML BOTTLE EACHEYE SCH ×3 (05:12→17:23)
[2018-11-12] MEDS: OMEPRAZOLE 20 MG CAPSULE.DR GT SCH (05:12)
[2018-11-12] MEDS: BACLOFEN 20 MG TABLET GT SCH ×3 (05:12→21:18)
[2018-11-12 08:12] VITALS: BP 104/58
[2018-11-12] MEDS: DESMOPRESSIN 0.1 MG TABLET GT SCH (08:18)
[2018-11-12] MEDS: METHYLPHENIDATE 10MG GT SCH (08:19)
[2018-11-12] MEDS: LEVETIRACETAM 500 MG/5 ML LIQUID UDC GT SCH ×2 (08:19→20:11)
[2018-11-12] MEDS: ACIDOPHILUS/BULGARICUS CHEW TAB GT SCH ×2 (08:19→20:11)
[2018-11-12] MEDS: Z GUARD REMEDY PASTE 57 GM TUBE TOP SCH ×2 (08:20→20:11)
[2018-11-12] MEDS: VITAMINS A AND D OINT TP SCH ×2 (08:20→20:15)
[2018-11-12] MEDS: COD LIVER OIL/ZINC OXIDE OINT 113 GM TUBE TP SCH ×2 (08:20→20:15)
[2018-11-12] MEDS: HYDROGEN PEROXIDE 3% 118 ML BOTTLE TP SCH ×2 (08:20→20:15)
[2018-11-12] MEDS: HEPARIN SODIUM,PORCINE 5,000 UNITS/ML VIAL SQ SCH ×2 (08:21→20:12)
[2018-11-12 20:00] VITALS: BP 94/47
[2018-11-12] MEDS: THIAMINE HCL 100 MG TABLET GT SCH (20:11)
[2018-11-12] MEDS: FOLIC ACID 1 MG TABLET GT SCH (20:11)
[2018-11-12] MEDS: CHOLECALCIFEROL 1,000 UNIT TABLET GT SCH (20:11)
[2018-11-13] MEDS: POLYVINYL ALCOHOL OPHT DROPS 15 ML BOTTLE EACHEYE SCH ×5 (00:41→23:06)
[2018-11-13] MEDS: OMEPRAZOLE 20 MG CAPSULE.DR GT SCH (05:06)
[2018-11-13] MEDS: BACLOFEN 20 MG TABLET GT SCH ×3 (05:06→21:43)
[2018-11-13] MEDS: VITAL AF 1.2 1,000 ML LIQUID GT PRN ×2 (05:07→23:07)
[2018-11-13 07:42] VITALS: BP 99/57
[2018-11-13] MEDS: DESMOPRESSIN 0.1 MG TABLET GT SCH (08:08)
[2018-11-13] MEDS: ACIDOPHILUS/BULGARICUS CHEW TAB GT SCH ×2 (08:08→20:12)
[2018-11-13] MEDS: HEPARIN SODIUM,PORCINE 5,000 UNITS/ML VIAL SQ SCH ×2 (08:14→21:43)
[2018-11-13] MEDS: COD LIVER OIL/ZINC OXIDE OINT 113 GM TUBE TP SCH ×2 (08:15→20:14)
[2018-11-13] MEDS: Z GUARD REMEDY PASTE 57 GM TUBE TOP SCH ×2 (08:15→20:14)
[2018-11-13] MEDS: HYDROGEN PEROXIDE 3% 118 ML BOTTLE TP SCH ×2 (08:15→20:14)
[2018-11-13] MEDS: METHYLPHENIDATE 10MG GT SCH (08:15)
[2018-11-13] MEDS: VITAMINS A AND D OINT TP SCH ×2 (08:16→20:14)
[2018-11-13] MEDS: KETOCONAZOLE 2% SHAMPOO 120 ML BOTTLE TP SCH (08:16)
[2018-11-13] MEDS: LEVETIRACETAM 500 MG/5 ML LIQUID UDC GT SCH ×2 (08:16→20:12)
[2018-11-13] MEDS: BISACODYL 10 MG SUPP.RECT RC PRN (18:11)
[2018-11-13 20:00] VITALS: BP 97/52
[2018-11-13] MEDS: THIAMINE HCL 100 MG TABLET GT SCH (20:12)
[2018-11-13] MEDS: CHOLECALCIFEROL 1,000 UNIT TABLET GT SCH (20:12)
[2018-11-13] MEDS: FOLIC ACID 1 MG TABLET GT SCH (20:12)
[2018-11-14] MEDS: OMEPRAZOLE 20 MG CAPSULE.DR GT SCH (05:09)
[2018-11-14] MEDS: VITAL AF 1.2 1,000 ML LIQUID GT PRN ×2 (05:09→22:29)
[2018-11-14] MEDS: POLYVINYL ALCOHOL OPHT DROPS 15 ML BOTTLE EACHEYE SCH ×4 (05:09→23:54)
[2018-11-14] MEDS: BACLOFEN 20 MG TABLET GT SCH ×3 (05:09→21:58)
[2018-11-14 06:40] LABS: BASOPHILS # (AUTO) 0.1 K/uL (0.0-8.0); BASOPHILS % (AUTO) 0.6 % (0.0-2.0); EOSINOPHILS # (AUTO) 0.3 K/uL (0.0-0.7); EOSINOPHILS % (AUTO) 3.5 % (0.0-7.0); HEMATOCRIT 28.6 % (31.2-41.9); HEMOGLOBIN 9.9 g/dL (10.9-14.3); LYMPHOCYTES # (AUTO) 1.8 K/uL (20.0-40.0); LYMPHOCYTES % (AUTO) 19.5 % (20.5-51.5); MEAN CORPUSCULAR HEMOGLOBIN 31.9 uug (24.7-32.8); MEAN CORPUSCULAR HGB CONC 35 g/dL (32.3-35.6); MEAN CORPUSCULAR VOLUME 92.4 fL (75.5-95.3); MONOCYTES # (AUTO) 0.9 K/uL (2.0-10.0); MONOCYTES % (AUTO) 9.7 % (0.0-11.0); NEUTROPHILS # (AUTO) 6.3 K/uL (1.8-8.9); NEUTROPHILS % (AUTO) 66.7 % (38.5-71.5); PLATELET COUNT (AUTO) 274 K/uL (179-408); RED BLOOD CELL COUNT(AUTO) 3.09 MIL/uL (3.63-4.92); WHITE BLOOD COUNT (AUTO) 9.4 K/uL (3.8-11.8)
[2018-11-14 06:55] LABS: ALANINE AMINOTRANSFERASE 58 U/L (14-59); ALKALINE PHOSPHATASE 123 U/L (50-136); ASPARTATE AMINOTRANSFERASE 15 U/L (15-37); BILIRUBIN,TOTAL 0.8 mg/dL (0.2-1.0); CARBON DIOXIDE 25 mmol/L (21-32); CHLORIDE 100 mmol/L (98-107); CREATININE 0.3 mg/dL (0.6-1.3); GLUCOSE 90 mg/dL (74-106); POTASSIUM 3.7 mmol/L (3.5-5.1); TOTAL PROTEIN, SERUM 6.6 g/dL (6.4-8.2); UREA NITROGEN, BLOOD 16 mg/dL (7-18)
[2018-11-14 08:00] VITALS: BP 102/57
[2018-11-14] MEDS: ACIDOPHILUS/BULGARICUS CHEW TAB GT SCH ×2 (08:09→20:33)
[2018-11-14] MEDS: LEVETIRACETAM 500 MG/5 ML LIQUID UDC GT SCH ×2 (08:09→20:33)
[2018-11-14] MEDS: DESMOPRESSIN 0.1 MG TABLET GT SCH (08:09)
[2018-11-14] MEDS: METHYLPHENIDATE 10MG GT SCH (08:11)
[2018-11-14] MEDS: HEPARIN SODIUM,PORCINE 5,000 UNITS/ML VIAL SQ SCH ×2 (08:11→20:35)
[2018-11-14] MEDS: Z GUARD REMEDY PASTE 57 GM TUBE TOP SCH ×2 (08:12→20:35)
[2018-11-14] MEDS: HYDROGEN PEROXIDE 3% 118 ML BOTTLE TP SCH ×2 (08:12→20:35)
[2018-11-14] MEDS: VITAMINS A AND D OINT TP SCH ×2 (08:12→20:35)
[2018-11-14] MEDS: COD LIVER OIL/ZINC OXIDE OINT 113 GM TUBE TP SCH ×2 (08:12→20:35)
[2018-11-14] MEDS: CHOLECALCIFEROL 1,000 UNIT TABLET GT SCH (20:33)
[2018-11-14] MEDS: FOLIC ACID 1 MG TABLET GT SCH (20:33)
[2018-11-14] MEDS: THIAMINE HCL 100 MG TABLET GT SCH (20:33)
[2018-11-14 23:24] VITALS: BP 113/58
[2018-11-15] MEDS: OMEPRAZOLE 20 MG CAPSULE.DR GT SCH (05:59)
[2018-11-15] MEDS: BACLOFEN 20 MG TABLET GT SCH ×3 (05:59→21:31)
[2018-11-15] MEDS: POLYVINYL ALCOHOL OPHT DROPS 15 ML BOTTLE EACHEYE SCH ×4 (05:59→23:40)
[2018-11-15 08:00] VITALS: BP 120/60
[2018-11-15] MEDS: LEVETIRACETAM 500 MG/5 ML LIQUID UDC GT SCH ×2 (09:08→20:22)
[2018-11-15] MEDS: ACIDOPHILUS/BULGARICUS CHEW TAB GT SCH ×2 (09:08→20:21)
[2018-11-15] MEDS: METHYLPHENIDATE 10MG GT SCH (09:08)
[2018-11-15] MEDS: DESMOPRESSIN 0.1 MG TABLET GT SCH (09:08)
[2018-11-15] MEDS: Z GUARD REMEDY PASTE 57 GM TUBE TOP SCH ×2 (09:09→20:22)
[2018-11-15] MEDS: VITAMINS A AND D OINT TP SCH ×2 (09:09→20:22)
[2018-11-15] MEDS: COD LIVER OIL/ZINC OXIDE OINT 113 GM TUBE TP SCH ×2 (09:09→20:22)
[2018-11-15] MEDS: HYDROGEN PEROXIDE 3% 118 ML BOTTLE TP SCH ×2 (09:09→20:22)
[2018-11-15] MEDS: HEPARIN SODIUM,PORCINE 5,000 UNITS/ML VIAL SQ SCH ×2 (09:10→20:21)
[2018-11-15] MEDS: VITAL AF 1.2 1,000 ML LIQUID GT PRN (18:22)
[2018-11-15 20:20] VITALS: BP 114/49
[2018-11-15] MEDS: FOLIC ACID 1 MG TABLET GT SCH (20:21)
[2018-11-15] MEDS: THIAMINE HCL 100 MG TABLET GT SCH (20:22)
[2018-11-15] MEDS: CHOLECALCIFEROL 1,000 UNIT TABLET GT SCH (20:22)
[2018-11-16] MEDS: OMEPRAZOLE 20 MG CAPSULE.DR GT SCH (05:33)
[2018-11-16] MEDS: POLYVINYL ALCOHOL OPHT DROPS 15 ML BOTTLE EACHEYE SCH ×3 (05:33→17:50)
[2018-11-16] MEDS: BACLOFEN 20 MG TABLET GT SCH ×3 (05:33→22:18)
[2018-11-16] MEDS: DESMOPRESSIN 0.1 MG TABLET GT SCH (08:51)
[2018-11-16] MEDS: LEVETIRACETAM 500 MG/5 ML LIQUID UDC GT SCH ×2 (08:52→20:30)
[2018-11-16] MEDS: Z GUARD REMEDY PASTE 57 GM TUBE TOP SCH ×2 (08:52→20:34)
[2018-11-16] MEDS: HYDROGEN PEROXIDE 3% 118 ML BOTTLE TP SCH ×2 (08:52→20:34)
[2018-11-16] MEDS: METHYLPHENIDATE 10MG GT SCH (08:52)
[2018-11-16] MEDS: ACIDOPHILUS/BULGARICUS CHEW TAB GT SCH ×2 (08:52→20:30)
[2018-11-16] MEDS: COD LIVER OIL/ZINC OXIDE OINT 113 GM TUBE TP SCH ×2 (08:52→20:34)
[2018-11-16] MEDS: VITAMINS A AND D OINT TP SCH ×2 (08:52→20:34)
[2018-11-16] MEDS: HEPARIN SODIUM,PORCINE 5,000 UNITS/ML VIAL SQ SCH ×2 (08:55→20:34)
[2018-11-16 11:24] VITALS: BP 115/57
[2018-11-16] MEDS: VITAL AF 1.2 1,000 ML LIQUID GT PRN (18:41)
[2018-11-16] MEDS: ACETAMINOPHEN 650 MG/20 ML UDC- SA PATIENTS-FEVER ONLY GT PRN (18:42)
[2018-11-16 20:18] VITALS: BP 102/52
[2018-11-16] MEDS: FOLIC ACID 1 MG TABLET GT SCH (20:30)
[2018-11-16] MEDS: THIAMINE HCL 100 MG TABLET GT SCH (20:31)
[2018-11-16] MEDS: CHOLECALCIFEROL 1,000 UNIT TABLET GT SCH (20:32)
[2018-11-17] MEDS: BACLOFEN 20 MG TABLET GT SCH ×3 (05:14→22:02)
[2018-11-17] MEDS: POLYVINYL ALCOHOL OPHT DROPS 15 ML BOTTLE EACHEYE SCH ×4 (05:14→17:00)
[2018-11-17] MEDS: OMEPRAZOLE 20 MG CAPSULE.DR GT SCH (05:15)
[2018-11-17 08:48] VITALS: BP 103/56
[2018-11-17] MEDS: HYDROGEN PEROXIDE 3% 118 ML BOTTLE TP SCH ×2 (09:00→20:31)
[2018-11-17] MEDS: COD LIVER OIL/ZINC OXIDE OINT 113 GM TUBE TP SCH ×2 (09:00→20:31)
[2018-11-17] MEDS: LEVETIRACETAM 500 MG/5 ML LIQUID UDC GT SCH ×2 (09:00→20:26)
[2018-11-17] MEDS: METHYLPHENIDATE 10MG GT SCH (09:00)
[2018-11-17] MEDS: VITAMINS A AND D OINT TP SCH ×2 (09:00→20:31)
[2018-11-17] MEDS: Z GUARD REMEDY PASTE 57 GM TUBE TOP SCH ×2 (09:00→20:30)
[2018-11-17] MEDS: KETOCONAZOLE 2% SHAMPOO 120 ML BOTTLE TP SCH (09:05)
[2018-11-17] MEDS: DESMOPRESSIN 0.1 MG TABLET GT SCH (10:25)
[2018-11-17] MEDS: ACIDOPHILUS/BULGARICUS CHEW TAB GT SCH ×2 (10:26→20:26)
[2018-11-17] MEDS: HEPARIN SODIUM,PORCINE 5,000 UNITS/ML VIAL SQ SCH ×2 (10:26→21:00)
[2018-11-17] MEDS: VITAL AF 1.2 1,000 ML LIQUID GT PRN (16:59)
[2018-11-17] MEDS: ACETAMINOPHEN 650 MG/20 ML UDC- SA PATIENTS-FEVER ONLY GT PRN (20:00)
[2018-11-17 20:18] VITALS: BP 101/46
[2018-11-17] MEDS: FOLIC ACID 1 MG TABLET GT SCH (20:26)
[2018-11-17] MEDS: THIAMINE HCL 100 MG TABLET GT SCH (20:28)
[2018-11-17] MEDS: CHOLECALCIFEROL 1,000 UNIT TABLET GT SCH (20:29)
[2018-11-18] MEDS: BISACODYL 10 MG SUPP.RECT RC PRN (04:00)
[2018-11-18] MEDS: POLYVINYL ALCOHOL OPHT DROPS 15 ML BOTTLE EACHEYE SCH ×4 (06:27→17:22)
[2018-11-18] MEDS: BACLOFEN 20 MG TABLET GT SCH ×3 (06:27→22:18)
[2018-11-18] MEDS: OMEPRAZOLE 20 MG CAPSULE.DR GT SCH (06:27)
[2018-11-18 07:49] VITALS: BP 101/59
[2018-11-18] MEDS: METHYLPHENIDATE 10MG GT SCH (08:06)
[2018-11-18] MEDS: COD LIVER OIL/ZINC OXIDE OINT 113 GM TUBE TP SCH ×2 (08:06→20:40)
[2018-11-18] MEDS: Z GUARD REMEDY PASTE 57 GM TUBE TOP SCH ×2 (08:06→20:39)
[2018-11-18] MEDS: HEPARIN SODIUM,PORCINE 5,000 UNITS/ML VIAL SQ SCH ×2 (08:06→21:00)
[2018-11-18] MEDS: ACIDOPHILUS/BULGARICUS CHEW TAB GT SCH ×2 (08:06→20:35)
[2018-11-18] MEDS: LEVETIRACETAM 500 MG/5 ML LIQUID UDC GT SCH ×2 (08:06→20:37)
[2018-11-18] MEDS: DESMOPRESSIN 0.1 MG TABLET GT SCH (08:06)
[2018-11-18] MEDS: HYDROGEN PEROXIDE 3% 118 ML BOTTLE TP SCH ×2 (08:07→20:40)
[2018-11-18] MEDS: VITAMINS A AND D OINT TP SCH ×2 (08:07→20:40)
[2018-11-18] MEDS: VITAL AF 1.2 1,000 ML LIQUID GT PRN (10:36)
[2018-11-18] MEDS: FOLIC ACID 1 MG TABLET GT SCH (20:35)
[2018-11-18] MEDS: THIAMINE HCL 100 MG TABLET GT SCH (20:37)
[2018-11-18] MEDS: CHOLECALCIFEROL 1,000 UNIT TABLET GT SCH (20:38)
[2018-11-18 20:46] VITALS: BP 109/64
[2018-11-19] MEDS: POLYVINYL ALCOHOL OPHT DROPS 15 ML BOTTLE EACHEYE SCH ×4 (00:06→17:06)
[2018-11-19] MEDS: VITAL AF 1.2 1,000 ML LIQUID GT PRN (01:30)
[2018-11-19] MEDS: OMEPRAZOLE 20 MG CAPSULE.DR GT SCH (05:20)
[2018-11-19] MEDS: BACLOFEN 20 MG TABLET GT SCH ×3 (05:20→22:28)
[2018-11-19 07:49] VITALS: BP 113/61
[2018-11-19] MEDS: HEPARIN SODIUM,PORCINE 5,000 UNITS/ML VIAL SQ SCH ×2 (08:08→21:00)
[2018-11-19] MEDS: DESMOPRESSIN 0.1 MG TABLET GT SCH (08:18)
[2018-11-19] MEDS: Z GUARD REMEDY PASTE 57 GM TUBE TOP SCH ×2 (08:19→20:54)
[2018-11-19] MEDS: COD LIVER OIL/ZINC OXIDE OINT 113 GM TUBE TP SCH ×2 (08:19→20:54)
[2018-11-19] MEDS: VITAMINS A AND D OINT TP SCH ×2 (08:19→20:55)
[2018-11-19] MEDS: ACIDOPHILUS/BULGARICUS CHEW TAB GT SCH ×2 (08:19→20:54)
[2018-11-19] MEDS: LEVETIRACETAM 500 MG/5 ML LIQUID UDC GT SCH ×2 (08:19→20:54)
[2018-11-19] MEDS: METHYLPHENIDATE 10MG GT SCH (08:19)
[2018-11-19] MEDS: HYDROGEN PEROXIDE 3% 118 ML BOTTLE TP SCH ×2 (08:19→20:54)
[2018-11-19 12:13] VITALS: BP 113/61
[2018-11-19 20:26] VITALS: BP 115/59
[2018-11-19] MEDS: FOLIC ACID 1 MG TABLET GT SCH (20:54)
[2018-11-19] MEDS: CHOLECALCIFEROL 1,000 UNIT TABLET GT SCH (20:54)
[2018-11-19] MEDS: THIAMINE HCL 100 MG TABLET GT SCH (20:54)
[2018-11-20] MEDS: VITAL AF 1.2 1,000 ML LIQUID GT PRN ×2 (00:17→21:44)
[2018-11-20] MEDS: POLYVINYL ALCOHOL OPHT DROPS 15 ML BOTTLE EACHEYE SCH ×4 (00:17→17:31)
[2018-11-20] MEDS: OMEPRAZOLE 20 MG CAPSULE.DR GT SCH (06:02)
[2018-11-20] MEDS: BACLOFEN 20 MG TABLET GT SCH ×3 (06:02→21:34)
[2018-11-20] MEDS: DESMOPRESSIN 0.1 MG TABLET GT SCH (08:35)
[2018-11-20] MEDS: HEPARIN SODIUM,PORCINE 5,000 UNITS/ML VIAL SQ SCH ×2 (08:35→21:21)
[2018-11-20] MEDS: LEVETIRACETAM 500 MG/5 ML LIQUID UDC GT SCH ×2 (08:35→21:33)
[2018-11-20] MEDS: ACIDOPHILUS/BULGARICUS CHEW TAB GT SCH ×2 (08:35→21:32)
[2018-11-20] MEDS: METHYLPHENIDATE 10MG GT SCH (08:35)
[2018-11-20] MEDS: HYDROGEN PEROXIDE 3% 118 ML BOTTLE TP SCH ×2 (08:36→21:34)
[2018-11-20] MEDS: VITAMINS A AND D OINT TP SCH ×2 (08:36→21:34)
[2018-11-20] MEDS: Z GUARD REMEDY PASTE 57 GM TUBE TOP SCH ×2 (08:36→21:34)
[2018-11-20] MEDS: COD LIVER OIL/ZINC OXIDE OINT 113 GM TUBE TP SCH ×2 (08:36→21:34)
[2018-11-20] MEDS: KETOCONAZOLE 2% SHAMPOO 120 ML BOTTLE TP SCH (08:37)
[2018-11-20 12:13] VITALS: BP 98/62
[2018-11-20 20:29] VITALS: BP 110/57
[2018-11-20] MEDS: CHOLECALCIFEROL 1,000 UNIT TABLET GT SCH (21:33)
[2018-11-20] MEDS: THIAMINE HCL 100 MG TABLET GT SCH (21:33)
[2018-11-20] MEDS: FOLIC ACID 1 MG TABLET GT SCH (21:33)
[2018-11-21] MEDS: POLYVINYL ALCOHOL OPHT DROPS 15 ML BOTTLE EACHEYE SCH ×5 (00:26→23:23)
[2018-11-21] MEDS: BACLOFEN 20 MG TABLET GT SCH ×3 (05:37→21:18)
[2018-11-21] MEDS: OMEPRAZOLE 20 MG CAPSULE.DR GT SCH (05:38)
[2018-11-21 08:00] VITALS: BP 104/65
[2018-11-21] MEDS: COD LIVER OIL/ZINC OXIDE OINT 113 GM TUBE TP SCH ×2 (08:05→20:21)
[2018-11-21] MEDS: Z GUARD REMEDY PASTE 57 GM TUBE TOP SCH ×2 (08:05→20:20)
[2018-11-21] MEDS: ACIDOPHILUS/BULGARICUS CHEW TAB GT SCH ×2 (08:05→20:19)
[2018-11-21] MEDS: DESMOPRESSIN 0.1 MG TABLET GT SCH (08:05)
[2018-11-21] MEDS: METHYLPHENIDATE 10MG GT SCH (08:05)
[2018-11-21] MEDS: LEVETIRACETAM 500 MG/5 ML LIQUID UDC GT SCH ×2 (08:05→20:19)
[2018-11-21] MEDS: HYDROGEN PEROXIDE 3% 118 ML BOTTLE TP SCH ×2 (08:06→20:21)
[2018-11-21] MEDS: VITAMINS A AND D OINT TP SCH ×2 (08:06→20:21)
[2018-11-21] MEDS: HEPARIN SODIUM,PORCINE 5,000 UNITS/ML VIAL SQ SCH ×2 (08:06→20:20)
[2018-11-21] MEDS: VITAL AF 1.2 1,000 ML LIQUID GT PRN (17:36)
[2018-11-21] MEDS: BISACODYL 10 MG SUPP.RECT RC PRN (18:45)
[2018-11-21] MEDS: FOLIC ACID 1 MG TABLET GT SCH (20:19)
[2018-11-21] MEDS: THIAMINE HCL 100 MG TABLET GT SCH (20:19)
[2018-11-21] MEDS: CHOLECALCIFEROL 1,000 UNIT TABLET GT SCH (20:19)
[2018-11-21 20:22] VITALS: BP 100/55
[2018-11-22] MEDS: POLYVINYL ALCOHOL OPHT DROPS 15 ML BOTTLE EACHEYE SCH ×3 (05:48→17:08)
[2018-11-22] MEDS: OMEPRAZOLE 20 MG CAPSULE.DR GT SCH (05:48)
[2018-11-22] MEDS: BACLOFEN 20 MG TABLET GT SCH ×3 (05:48→22:14)
[2018-11-22 08:01] VITALS: BP 103/51
[2018-11-22] MEDS: ACIDOPHILUS/BULGARICUS CHEW TAB GT SCH ×2 (08:44→20:10)
[2018-11-22] MEDS: LEVETIRACETAM 500 MG/5 ML LIQUID UDC GT SCH ×2 (08:44→20:10)
[2018-11-22] MEDS: DESMOPRESSIN 0.1 MG TABLET GT SCH (08:44)
[2018-11-22] MEDS: HYDROGEN PEROXIDE 3% 118 ML BOTTLE TP SCH ×2 (08:45→20:13)
[2018-11-22] MEDS: METHYLPHENIDATE 10MG GT SCH (08:45)
[2018-11-22] MEDS: Z GUARD REMEDY PASTE 57 GM TUBE TOP SCH ×2 (08:45→20:13)
[2018-11-22] MEDS: COD LIVER OIL/ZINC OXIDE OINT 113 GM TUBE TP SCH ×2 (08:45→20:13)
[2018-11-22] MEDS: HEPARIN SODIUM,PORCINE 5,000 UNITS/ML VIAL SQ SCH ×2 (08:45→20:13)
[2018-11-22] MEDS: VITAMINS A AND D OINT TP SCH ×2 (08:45→20:13)
[2018-11-22 14:41] LABS: BASOPHILS # (AUTO) 0.4 K/uL (0.0-8.0); BASOPHILS % (AUTO) 2.7 % (0.0-2.0); EOSINOPHILS % (AUTO) 0.1 % (0.0-7.0); HEMATOCRIT 24.5 % (31.2-41.9); HEMOGLOBIN 8.2 g/dL (10.9-14.3); LYMPHOCYTES # (AUTO) 1.3 K/uL (20.0-40.0); MEAN CORPUSCULAR HEMOGLOBIN 31.1 uug (24.7-32.8); MEAN CORPUSCULAR HGB CONC 33 g/dL (32.3-35.6); MEAN CORPUSCULAR VOLUME 93.4 fL (75.5-95.3); MONOCYTES # (AUTO) 1.2 K/uL (2.0-10.0); MONOCYTES % (AUTO) 8.7 % (0.0-11.0); NEUTROPHILS # (AUTO) 11.2 K/uL (1.8-8.9); NEUTROPHILS % (AUTO) 79.5 % (38.5-71.5); PLATELET COUNT (AUTO) 471 K/uL (179-408); RED BLOOD CELL COUNT(AUTO) 2.63 MIL/uL (3.63-4.92); WHITE BLOOD COUNT (AUTO) 14.2 K/uL (3.8-11.8)
[2018-11-22 14:56] LABS: ALANINE AMINOTRANSFERASE 110 U/L (14-59); ALKALINE PHOSPHATASE 186 U/L (50-136); ASPARTATE AMINOTRANSFERASE 34 U/L (15-37); BILIRUBIN,TOTAL 0.5 mg/dL (0.2-1.0); CARBON DIOXIDE 26 mmol/L (21-32); CHLORIDE 106 mmol/L (98-107); CREATININE 0.4 mg/dL (0.6-1.3); GLUCOSE 138 mg/dL (74-106); POTASSIUM 3.3 mmol/L (3.5-5.1); TOTAL PROTEIN, SERUM 6.5 g/dL (6.4-8.2); UREA NITROGEN, BLOOD 13 mg/dL (7-18)
[2018-11-22] MEDS ORDERED: POTASSIUM CHLORIDE 10 MEQ TAB.PRT.SR XX ONE (17:00)
[2018-11-22 20:05] VITALS: BP 107/60
[2018-11-22] MEDS: FOLIC ACID 1 MG TABLET GT SCH (20:10)
[2018-11-22] MEDS: THIAMINE HCL 100 MG TABLET GT SCH (20:11)
[2018-11-22] MEDS: CHOLECALCIFEROL 1,000 UNIT TABLET GT SCH (20:11)
[2018-11-23] MEDS: POLYVINYL ALCOHOL OPHT DROPS 15 ML BOTTLE EACHEYE SCH ×4 (06:00→18:29)
[2018-11-23] MEDS: OMEPRAZOLE 20 MG CAPSULE.DR GT SCH (06:00)
[2018-11-23] MEDS: BACLOFEN 20 MG TABLET GT SCH ×3 (06:00→22:06)
[2018-11-23 07:44] LABS: *BILIRUBIN,URIN NEGATIVE (NEGATIVE); *BLOOD, URINE NEGATIVE (NEGATIVE); *COLOR,URINE DARK YELLOW (YELLOW); *KETONES,URINE NEGATIVE (NEGATIVE); *UROBILINOGEN,URINE >=8.0 E.U./dl (NORMAL); LEUKOCYTE ESTERASE ,URINE NEGATIVE (NEGATIVE); NITRITE, URINE NEGATIVE (NEGATIVE); UGLUCOSE NEGATIVE (NEGATIVE)
[2018-11-23 07:49] LABS: *CLARITY,URINE HAZY (CLEAR)
[2018-11-23 07:50] LABS: RBC,URINE 0-3 /HPF (0-3)
[2018-11-23 07:53] LABS: BACTERIA,URINE FEW /HPF (NONE SEEN); MUCUS,URINE MODERATE /LPF (0-FEW); SQUAMOUS EPITHELIAL CELL,UR MODERATE /HPF (NONE SEEN)
[2018-11-23 08:01] VITALS: BP 101/59
[2018-11-23] MEDS: DESMOPRESSIN 0.1 MG TABLET GT SCH (08:32)
[2018-11-23] MEDS: ACIDOPHILUS/BULGARICUS CHEW TAB GT SCH ×2 (08:32→20:35)
[2018-11-23] MEDS: HEPARIN SODIUM,PORCINE 5,000 UNITS/ML VIAL SQ SCH ×2 (08:34→20:41)
[2018-11-23] MEDS: LEVETIRACETAM 500 MG/5 ML LIQUID UDC GT SCH ×2 (08:35→20:35)
[2018-11-23] MEDS: METHYLPHENIDATE 10MG GT SCH (08:35)
[2018-11-23] MEDS: VITAMINS A AND D OINT TP SCH ×2 (08:36→20:39)
[2018-11-23] MEDS: HYDROGEN PEROXIDE 3% 118 ML BOTTLE TP SCH ×2 (08:36→20:39)
[2018-11-23] MEDS: COD LIVER OIL/ZINC OXIDE OINT 113 GM TUBE TP SCH ×2 (08:36→20:39)
[2018-11-23] MEDS: Z GUARD REMEDY PASTE 57 GM TUBE TOP SCH ×2 (08:36→20:38)
[2018-11-23 20:27] VITALS: BP 101/58
[2018-11-23] MEDS: FOLIC ACID 1 MG TABLET GT SCH (20:35)
[2018-11-23] MEDS: CHOLECALCIFEROL 1,000 UNIT TABLET GT SCH (20:37)
[2018-11-23] MEDS: THIAMINE HCL 100 MG TABLET GT SCH (20:37)
[2018-11-24] MEDS: POLYVINYL ALCOHOL OPHT DROPS 15 ML BOTTLE EACHEYE SCH ×4 (00:28→17:00)
[2018-11-24] MEDS: BACLOFEN 20 MG TABLET GT SCH ×3 (06:02→21:02)
[2018-11-24] MEDS: OMEPRAZOLE 20 MG CAPSULE.DR GT SCH (06:02)
[2018-11-24 08:01] VITALS: BP 109/50
[2018-11-24] MEDS: DESMOPRESSIN 0.1 MG TABLET GT SCH (08:28)
[2018-11-24] MEDS: ACIDOPHILUS/BULGARICUS CHEW TAB GT SCH ×2 (08:30→20:59)
[2018-11-24] MEDS: LEVETIRACETAM 500 MG/5 ML LIQUID UDC GT SCH ×2 (08:33→20:59)
[2018-11-24] MEDS: METHYLPHENIDATE 10MG GT SCH (08:37)
[2018-11-24] MEDS: Z GUARD REMEDY PASTE 57 GM TUBE TOP SCH ×2 (08:39→21:01)
[2018-11-24] MEDS: HEPARIN SODIUM,PORCINE 5,000 UNITS/ML VIAL SQ SCH ×2 (08:39→21:01)
[2018-11-24] MEDS: VITAMINS A AND D OINT TP SCH ×2 (08:40→21:02)
[2018-11-24] MEDS: KETOCONAZOLE 2% SHAMPOO 120 ML BOTTLE TP SCH (08:40)
[2018-11-24] MEDS: COD LIVER OIL/ZINC OXIDE OINT 113 GM TUBE TP SCH ×2 (08:40→21:02)
[2018-11-24] MEDS: HYDROGEN PEROXIDE 3% 118 ML BOTTLE TP SCH ×2 (08:40→21:02)
[2018-11-24] MEDS: BISACODYL 10 MG SUPP.RECT RC PRN (14:24)
[2018-11-24] MEDS: VITAL AF 1.2 1,000 ML LIQUID GT PRN (14:29)
[2018-11-24 20:00] VITALS: BP 102/59
[2018-11-24] MEDS: FOLIC ACID 1 MG TABLET GT SCH (20:59)
[2018-11-24] MEDS: CHOLECALCIFEROL 1,000 UNIT TABLET GT SCH (21:00)
[2018-11-24] MEDS: THIAMINE HCL 100 MG TABLET GT SCH (21:00)
[2018-11-24] MEDS ORDERED: VANCOMYCIN IV 200 ML ONE (22:38)
[2018-11-24] MEDS ORDERED: CEFEPIME HCL 1 G VIAL ONE (22:38)
[2018-11-25] MEDS: POLYVINYL ALCOHOL OPHT DROPS 15 ML BOTTLE EACHEYE SCH ×4 (00:14→17:20)
[2018-11-25] MEDS: BACLOFEN 20 MG TABLET GT SCH ×2 (06:02→14:03)
[2018-11-25] MEDS: OMEPRAZOLE 20 MG CAPSULE.DR GT SCH (06:02)
[2018-11-25 06:34] VITALS: BP 105/67
[2018-11-25 07:31] LABS: MONOCYTES # (AUTO) 1.2 K/uL (2.0-10.0)
[2018-11-25 07:37] LABS: BASOPHILS % (AUTO) 0.1 % (0.0-2.0); EOSINOPHILS % (AUTO) 0.2 % (0.0-7.0); HEMATOCRIT 21.5 % (31.2-41.9); LYMPHOCYTES # (AUTO) 1.4 K/uL (20.0-40.0); LYMPHOCYTES % (AUTO) 9.1 % (20.5-51.5); MEAN CORPUSCULAR HEMOGLOBIN 31.3 uug (24.7-32.8); MEAN CORPUSCULAR HGB CONC 34 g/dL (32.3-35.6); MEAN CORPUSCULAR VOLUME 91.7 fL (75.5-95.3); MONOCYTES % (AUTO) 7.9 % (0.0-11.0); NEUTROPHILS # (AUTO) 12.7 K/uL (1.8-8.9); NEUTROPHILS % (AUTO) 82.7 % (38.5-71.5); PLATELET COUNT (AUTO) 491 K/uL (179-408); WHITE BLOOD COUNT (AUTO) 15.3 K/uL (3.8-11.8)
[2018-11-25 07:46] LABS: HEMOGLOBIN 7.3 g/dL (10.9-14.3); RED BLOOD CELL COUNT(AUTO) 2.35 MIL/uL (3.63-4.92)
[2018-11-25 07:51] LABS: CARBON DIOXIDE 27 mmol/L (21-32); CHLORIDE 104 mmol/L (98-107); CREATININE 0.4 mg/dL (0.6-1.3); GLUCOSE 111 mg/dL (74-106); POTASSIUM 3.3 mmol/L (3.5-5.1); UREA NITROGEN, BLOOD 10 mg/dL (7-18)
[2018-11-25 08:00] VITALS: BP 99/60
[2018-11-25] MEDS: DESMOPRESSIN 0.1 MG TABLET GT SCH (08:29)
[2018-11-25] MEDS: HEPARIN SODIUM,PORCINE 5,000 UNITS/ML VIAL SQ SCH ×2 (08:29→20:22)
[2018-11-25] MEDS: ACIDOPHILUS/BULGARICUS CHEW TAB GT SCH ×2 (08:29→20:17)
[2018-11-25] MEDS: LEVETIRACETAM 500 MG/5 ML LIQUID UDC GT SCH ×2 (08:30→20:17)
[2018-11-25] MEDS: Z GUARD REMEDY PASTE 57 GM TUBE TOP SCH ×2 (08:50→20:18)
[2018-11-25] MEDS: VITAMINS A AND D OINT TP SCH ×2 (08:50→20:18)
[2018-11-25] MEDS: COD LIVER OIL/ZINC OXIDE OINT 113 GM TUBE TP SCH ×2 (08:50→20:18)
[2018-11-25] MEDS: HYDROGEN PEROXIDE 3% 118 ML BOTTLE TP SCH ×2 (08:50→20:18)
[2018-11-25] MEDS ORDERED: METHYLPHENIDATE 20 MG GT SCH (09:00)
[2018-11-25] MEDS ORDERED: CEFEPIME HCL 1 G in IV DEXTROSE 5% 50 ML IV SCH (11:00)
[2018-11-25] MEDS: VITAL AF 1.2 1,000 ML LIQUID GT PRN (11:12)
[2018-11-25] MEDS ORDERED: VANCOMYCIN IV 1 G in PREMIXED 0 EACH IV SCH (12:00)
[2018-11-25] MEDS ORDERED: POTASSIUM CHLORIDE 20 MEQ POWDER PACKET GT ONE (16:00)
[2018-11-25] MEDS ORDERED: ACETAMINOPHEN 650 MG/20 ML UDC- SA PATIENTS-FEVER ONLY GT PRN (16:15)
[2018-11-25] MEDS ORDERED: ACETAMINOPHEN 650 MG/20 ML UDC- SA PATIENTS-PAIN ONLY GT PRN (16:15)
[2018-11-25 20:00] VITALS: BP 98/62
[2018-11-25] MEDS: FOLIC ACID 1 MG TABLET GT SCH (20:17)
[2018-11-25] MEDS: CHOLECALCIFEROL 1,000 UNIT TABLET GT SCH (20:17)
[2018-11-25] MEDS: THIAMINE HCL 100 MG TABLET GT SCH (20:17)
[2018-11-26] MEDS ORDERED: ACET650S26 GT ×2 (08:29)
[2018-11-26] MEDS ORDERED: BACL20TA GT (08:32)
[2018-11-26] MEDS ORDERED: BISA10SU61 RC (08:33)
[2018-11-26] MEDS ORDERED: LEVE500V IV (08:35)
[2018-11-26] MEDS ORDERED: HEPA500034 SQ (08:39)
[2018-11-26] MEDS ORDERED: DESM0.1T4 GT (08:41)
== END 2018-11-25 20:48 | disposition short-term general hospital (02) | DRG 130 ==
LOC: SA → UNDOLOA 11-26 00:09 → UNDODISIN 12-01 20:32
PROVIDERS: ADMIT Internal Medicine Pulmonary Disease; ATTEND Internal Medicine
PROC: 5A1955Z Respiratory Ventilation, Greater than 96 Consecutive Hours (ICD-10-PCS; principal; 2018-07-13)
DX: J96.21 Acute and chronic respiratory failure with hypoxia (principal); G93.1 Anoxic brain damage, not elsewhere classified; G82.50 Quadriplegia, unspecified; E23.2 Diabetes insipidus; G91.3 Post-traumatic hydrocephalus, unspecified; J90 Pleural effusion, not elsewhere classified; R13.10 Dysphagia, unspecified; D68.59 Other primary thrombophilia; Z93.1 Gastrostomy status; Z99.11 Dependence on respirator [ventilator] status; D63.8 Anemia in other chronic diseases classified elsewhere; S02.11 Fracture of occiput; S06.6X9S Traumatic subarachnoid hemorrhage with loss of consciousness of unspecified duration, sequela; Z93.0 Tracheostomy status; G40.909 Epilepsy, unspecified, not intractable, without status epilepticus; J96.22 Acute and chronic respiratory failure with hypercapnia; Z97.5 Presence of (intrauterine) contraceptive device; S06.5X9D Traumatic subdural hemorrhage with loss of consciousness of unspecified duration, subsequent encounter; V49.9XXS Car occupant (driver) (passenger) injured in unspecified traffic accident, sequela; J98.11 Atelectasis; F07.81 Postconcussional syndrome; E55.9 Vitamin D deficiency, unspecified; Z87.01 Personal history of pneumonia (recurrent); Z86.19 Personal history of other infectious and parasitic diseases; R40.3 Persistent vegetative state; R74.0 Nonspecific elevation of levels of transaminase and lactic acid dehydrogenase [LDH]; Z87.440 Personal history of urinary (tract) infections
CPT/HCPCS: 36415; 71045; 83605; 83735; 84100; 85025; 85730; 87040; 87070; 87077; 87086; 93880; 94003; 97165; A4663; C1758; J0692; J1644; J3370; J7040; J7060

== ENCOUNTER 2018-11-25 08:36 | Outpatient (CLI) | payer MEDICAID ==
[2018-11-26] MEDS ORDERED: ACET650S26 GT ×2 (08:29)
[2018-11-26] MEDS ORDERED: BACL20TA GT (08:32)
[2018-11-26] MEDS ORDERED: BISA10SU61 RC (08:33)
[2018-11-26] MEDS ORDERED: LEVE500V IV (08:35)
[2018-11-26] MEDS ORDERED: HEPA500034 SQ (08:39)
[2018-11-26] MEDS ORDERED: DESM0.1T4 GT (08:41)
== END 2018-11-25 23:59 ==
LOC: LAB 08:36 → US 23:59
PROVIDERS: ATTEND Internal Medicine Pulmonary Disease
DX: J90 Pleural effusion, not elsewhere classified (principal); R91.8 Other nonspecific abnormal finding of lung field; R59.9 Enlarged lymph nodes, unspecified; Z93.1 Gastrostomy status; Z93.0 Tracheostomy status
CPT/HCPCS: 71250; A4663; J7050

== ENCOUNTER 2018-11-25 20:25 | Inpatient (IN) | payer MEDICAID ==
[~2018-11-25] VITALS: Ht 162.6 cm; Wt 61.7 kg
[2018-11-25] VITALS (7 sets, daily range): BP systolic 90–113; BP diastolic 53–63
[2018-11-25] MEDS ORDERED: MORPHINE SULFATE 2 MG/1 ML DISP.SYRIN IV PRN (22:30)
[2018-11-25] MEDS ORDERED: ALBUTEROL SULFATE 2.5 MG/3 ML NEBU NEB PRN (22:30)
[2018-11-25] MEDS ORDERED: ACETAMINOPHEN 650 MG/20 ML UDC- SA PATIENTS-PAIN ONLY GT PRN (22:30)
[2018-11-25] MEDS ORDERED: LORAZEPAM 2 MG/1 ML VIAL IV PRN (22:30)
[2018-11-26] VITALS (24 sets, daily range): BP systolic 92–122; BP diastolic 51–74
[2018-11-26] MEDS ORDERED: VANCOMYCIN IV 1 G in PREMIXED 0 EACH IV ONE (00:30)
[2018-11-26 05:12] LABS: BASOPHILS % (AUTO) 0.1 % (0.0-2.0); EOSINOPHILS % (AUTO) 0.2 % (0.0-7.0); HEMATOCRIT 23.9 % (31.2-41.9); LYMPHOCYTES # (AUTO) 1.6 K/uL (20.0-40.0); MEAN CORPUSCULAR HEMOGLOBIN 30.7 uug (24.7-32.8); MEAN CORPUSCULAR HGB CONC 34 g/dL (32.3-35.6); MEAN CORPUSCULAR VOLUME 91.6 fL (75.5-95.3); MONOCYTES # (AUTO) 1.3 K/uL (2.0-10.0); MONOCYTES % (AUTO) 7.5 % (0.0-11.0); NEUTROPHILS # (AUTO) 14.7 K/uL (1.8-8.9); NEUTROPHILS % (AUTO) 83.2 % (38.5-71.5); PLATELET COUNT (AUTO) 582 K/uL (179-408); RED BLOOD CELL COUNT(AUTO) 2.61 MIL/uL (3.63-4.92); WHITE BLOOD COUNT (AUTO) 17.7 K/uL (3.8-11.8)
[2018-11-26 05:15] LABS: IRON, SERUM 13 ug/dL (50-175)
[2018-11-26 05:21] LABS: ALANINE AMINOTRANSFERASE 109 U/L (14-59); ALKALINE PHOSPHATASE 206 U/L (50-136); ASPARTATE AMINOTRANSFERASE 29 U/L (15-37); BILIRUBIN,TOTAL 0.3 mg/dL (0.2-1.0); CARBON DIOXIDE 29 mmol/L (21-32); CHLORIDE 105 mmol/L (98-107); CREATININE 0.4 mg/dL (0.6-1.3); GLUCOSE 141 mg/dL (74-106); MAGNESIUM 2.4 mg/dL (1.8-2.4); POTASSIUM 3.4 mmol/L (3.5-5.1); TOTAL PROTEIN, SERUM 6.8 g/dL (6.4-8.2); UREA NITROGEN, BLOOD 10 mg/dL (7-18)
[2018-11-26] MEDS ORDERED: POTASSIUM CHLORIDE 20 MEQ POWDER PACKET GT ONE ×2 (06:15→08:15)
[2018-11-26] MEDS ORDERED: IV NORMAL SALINE 250 ML IV ONE (06:15)
[2018-11-26] MEDS: PANTOPRAZOLE ORAL SUSPENSION 40 MG SUSPDR.PKT GT SCH (06:28)
[2018-11-26] MEDS ORDERED: ACET650S26 GT ×2 (08:29)
[2018-11-26] MEDS ORDERED: ACETAMINOPHEN 650 MG/20.3 ML LIQUID UDC GT PRN ×2 (08:30→09:00)
[2018-11-26] MEDS ORDERED: BACL20TA GT (08:32)
[2018-11-26] MEDS ORDERED: BISA10SU61 RC (08:33)
[2018-11-26] MEDS ORDERED: LEVE500V IV (08:35)
[2018-11-26] MEDS ORDERED: HEPA500034 SQ (08:39)
[2018-11-26] MEDS ORDERED: DESM0.1T4 GT (08:41)
[2018-11-26] MEDS ORDERED: CALMOSEPTINE 113 GM OINTMENT TOP SCH (09:00)
[2018-11-26] MEDS ORDERED: LEVETIRACETAM 250 MG TABLET GT SCH ×2 (09:00→21:00)
[2018-11-26] MEDS ORDERED: CEFEPIME HCL 1 G in IV DEXTROSE 5% 50 ML IV SCH (09:00)
[2018-11-26] MEDS ORDERED: Medication Not On Formulary EA (Lactobacillus Acidophilus (Probiotic) 1 EACH) GT SCH (09:00)
[2018-11-26] MEDS ORDERED: BISACODYL 10 MG SUPP.RECT RC PRN (09:00)
[2018-11-26] MEDS ORDERED: LORAZEPAM 0.5 MG TABLET GT PRN (09:00)
[2018-11-26] MEDS: LEVETIRACETAM 500 MG/5 ML LIQUID UDC GT SCH ×2 (09:15→20:48)
[2018-11-26] MEDS: DESMOPRESSIN 0.1 MG TABLET GT SCH (09:27)
[2018-11-26] MEDS: ACIDOPHILUS/BULGARICUS CHEW TAB GT SCH ×3 (09:32→22:00)
[2018-11-26] MEDS: VITAMINS A AND D OINT TP SCH ×2 (12:12→20:55)
[2018-11-26] MEDS: POTASSIUM CHLORIDE 20 MEQ in IV D5/ 0.9% NACL 1,000 ML IV PRN (12:23)
[2018-11-26] MEDS: VANCOMYCIN IV 200 ML IV SCH ×2 (13:24→23:48)
[2018-11-26] MEDS: HEPARIN SODIUM,PORCINE 5,000 UNITS/ML VIAL SQ SCH ×2 (13:45→21:00)
[2018-11-26] MEDS: BACLOFEN 20 MG TABLET GT SCH ×2 (14:00→21:09)
[2018-11-26] MEDS: FOLIC ACID 1 MG TABLET GT SCH (20:48)
[2018-11-26] MEDS: THIAMINE HCL 100 MG TABLET GT SCH (20:49)
[2018-11-26] MEDS: CHOLECALCIFEROL 1,000 UNIT TABLET GT SCH (20:49)
[2018-11-26] MEDS: Z GUARD REMEDY PASTE 57 GM TUBE TOP SCH (20:50)
[2018-11-26] MEDS: HYDROGEN PEROXIDE 3% 118 ML BOTTLE TOP SCH (21:07)
[2018-11-26] MEDS: PIPERACILLIN/TAZOBACTAM/D5W 50 ML IV SCH (21:13)
[2018-11-27] VITALS (23 sets, daily range): BP systolic 89–121; BP diastolic 50–81
[2018-11-27] MEDS: VANCOMYCIN IV 200 ML IV SCH ×3 (00:49→19:58)
[2018-11-27] MEDS: PIPERACILLIN/TAZOBACTAM/D5W 50 ML IV SCH ×3 (03:03→17:58)
[2018-11-27 04:56] LABS: BASOPHILS % (AUTO) 0.2 % (0.0-2.0); EOSINOPHILS % (AUTO) 0.1 % (0.0-7.0); HEMATOCRIT 24.2 % (31.2-41.9); LYMPHOCYTES # (AUTO) 1.6 K/uL (20.0-40.0); LYMPHOCYTES % (AUTO) 9.9 % (20.5-51.5); MEAN CORPUSCULAR HEMOGLOBIN 30.8 uug (24.7-32.8); MEAN CORPUSCULAR HGB CONC 33 g/dL (32.3-35.6); MEAN CORPUSCULAR VOLUME 92.9 fL (75.5-95.3); MONOCYTES # (AUTO) 1.2 K/uL (2.0-10.0); NEUTROPHILS # (AUTO) 13.7 K/uL (1.8-8.9); NEUTROPHILS % (AUTO) 82.8 % (38.5-71.5); PLATELET COUNT (AUTO) 532 K/uL (179-408); RED BLOOD CELL COUNT(AUTO) 2.61 MIL/uL (3.63-4.92); WHITE BLOOD COUNT (AUTO) 16.6 K/uL (3.8-11.8)
[2018-11-27 05:20] LABS: BILIRUBIN,TOTAL 0.5 mg/dL (0.2-1.0); CREATININE 0.6 mg/dL (0.6-1.3); MAGNESIUM 2.2 mg/dL (1.8-2.4); PHOSPHOROUS 3.5 mg/dL (2.5-4.9); POTASSIUM 4.6 mmol/L (3.5-5.1); TOTAL PROTEIN, SERUM 6.8 g/dL (6.4-8.2)
[2018-11-27] MEDS: BACLOFEN 20 MG TABLET GT SCH ×3 (05:44→21:04)
[2018-11-27] MEDS: ACIDOPHILUS/BULGARICUS CHEW TAB GT SCH ×3 (05:44→21:04)
[2018-11-27] MEDS: POLYVINYL ALCOHOL OPHT DROPS 15 ML BOTTLE EACHEYE PRN ×2 (05:45→11:20)
[2018-11-27] MEDS: POTASSIUM CHLORIDE 20 MEQ in IV D5/ 0.9% NACL 1,000 ML IV PRN ×2 (05:46→22:01)
[2018-11-27] MEDS: PANTOPRAZOLE ORAL SUSPENSION 40 MG SUSPDR.PKT GT SCH (06:49)
[2018-11-27 08:28] LABS: ABG BASE EXCESS 1.7 mmol/L; ABG HCO3 25.8 mmol/L; ABG PH 7.449 (7.350-7.450); ABG PO2 100.8 mmHg (75.0-100.0); ABG SITE RIGHT BRACHIAL; ABG TOTAL HEMOGLOBIN 8.7 G/dL (12.0-16.0); COHb 1.7 % (0.5-1.5); CPAP,BG 10 cmH20; O2Hb 96.3 % (94.0-97.0); VENT MODE VENT - SIMV; VT, ABG 500 mL
[2018-11-27] MEDS: DESMOPRESSIN 0.1 MG TABLET GT SCH (09:00)
[2018-11-27] MEDS: LEVETIRACETAM 500 MG/5 ML LIQUID UDC GT SCH ×2 (09:00→20:33)
[2018-11-27] MEDS: VITAMINS A AND D OINT TP SCH ×2 (09:00→20:34)
[2018-11-27] MEDS: Z GUARD REMEDY PASTE 57 GM TUBE TOP SCH ×2 (11:12→20:34)
[2018-11-27] MEDS: HYDROGEN PEROXIDE 3% 118 ML BOTTLE TOP SCH ×2 (11:17→20:34)
[2018-11-27] MEDS: CHOLECALCIFEROL 1,000 UNIT TABLET GT SCH (20:33)
[2018-11-27] MEDS: THIAMINE HCL 100 MG TABLET GT SCH (20:33)
[2018-11-27] MEDS: FOLIC ACID 1 MG TABLET GT SCH (20:33)
[2018-11-27] MEDS ORDERED: HEPARIN SODIUM,PORCINE 5,000 UNITS/ML VIAL SQ SCH (21:00)
[2018-11-27] MEDS: PIPERACILLIN/TAZOBACTAM/D5W 3.375 G in PREMIXED 1 EACH IV SCH (21:23)
[2018-11-27] MEDS ORDERED: VITAL AF 1.2 1,000 ML LIQUID GT PRN (22:00)
[2018-11-28] VITALS (24 sets, daily range): BP systolic 84–108; BP diastolic 42–69
[2018-11-28] MEDS: VANCOMYCIN IV 200 ML IV SCH (04:52)
[2018-11-28 05:25] LABS: BASOPHILS % (AUTO) 0.1 % (0.0-2.0); EOSINOPHILS % (AUTO) 0.1 % (0.0-7.0); HEMATOCRIT 25.8 % (31.2-41.9); HEMOGLOBIN 8.4 g/dL (10.9-14.3); LYMPHOCYTES # (AUTO) 1.7 K/uL (20.0-40.0); MEAN CORPUSCULAR HEMOGLOBIN 30.3 uug (24.7-32.8); MEAN CORPUSCULAR HGB CONC 33 g/dL (32.3-35.6); MEAN CORPUSCULAR VOLUME 93.2 fL (75.5-95.3); MONOCYTES # (AUTO) 1.2 K/uL (2.0-10.0); MONOCYTES % (AUTO) 6.3 % (0.0-11.0); NEUTROPHILS # (AUTO) 16.3 K/uL (1.8-8.9); NEUTROPHILS % (AUTO) 84.5 % (38.5-71.5); PLATELET COUNT (AUTO) 570 K/uL (179-408); RED BLOOD CELL COUNT(AUTO) 2.77 MIL/uL (3.63-4.92); WHITE BLOOD COUNT (AUTO) 19.3 K/uL (3.8-11.8)
[2018-11-28 05:36] LABS: CREATININE 0.7 mg/dL (0.6-1.3); MAGNESIUM 2.3 mg/dL (1.8-2.4); PHOSPHOROUS 3.9 mg/dL (2.5-4.9); POTASSIUM 3.3 mmol/L (3.5-5.1)
[2018-11-28] MEDS: PIPERACILLIN/TAZOBACTAM/D5W 3.375 G in PREMIXED 1 EACH IV SCH ×3 (05:53→21:29)
[2018-11-28] MEDS: BACLOFEN 20 MG TABLET GT SCH ×3 (05:53→21:07)
[2018-11-28] MEDS: ACIDOPHILUS/BULGARICUS CHEW TAB GT SCH ×3 (05:53→21:07)
[2018-11-28 06:00] LABS: BAND % (MANUAL) 1 % (0-10); LYMPHOCYTES % (MANUAL) 8 % (20-40); MONOCYTES % (MANUAL) 6 % (2-10); NEUTROPHILS % (MANUAL) 85 % (42-75)
[2018-11-28] MEDS: PANTOPRAZOLE ORAL SUSPENSION 40 MG SUSPDR.PKT GT SCH (06:36)
[2018-11-28] MEDS: DESMOPRESSIN 0.1 MG TABLET GT SCH (08:54)
[2018-11-28] MEDS: Z GUARD REMEDY PASTE 57 GM TUBE TOP SCH ×2 (08:55→21:06)
[2018-11-28] MEDS: POLYVINYL ALCOHOL OPHT DROPS 15 ML BOTTLE EACHEYE PRN (08:58)
[2018-11-28] MEDS: VITAMINS A AND D OINT TP SCH ×2 (08:58→21:07)
[2018-11-28] MEDS: HYDROGEN PEROXIDE 3% 118 ML BOTTLE TOP SCH ×2 (09:00→21:06)
[2018-11-28] MEDS: LEVETIRACETAM 500 MG/5 ML LIQUID UDC GT SCH ×2 (09:30→21:06)
[2018-11-28] MEDS ORDERED: POTASSIUM CHLORIDE 20 MEQ POWDER PACKET GT ONE (13:00)
[2018-11-28] MEDS: POTASSIUM CHLORIDE 20 MEQ in IV D5/ 0.9% NACL 1,000 ML IV PRN (13:33)
[2018-11-28] MEDS: FOLIC ACID 1 MG TABLET GT SCH (21:05)
[2018-11-28] MEDS: THIAMINE HCL 100 MG TABLET GT SCH (21:06)
[2018-11-28] MEDS: CHOLECALCIFEROL 1,000 UNIT TABLET GT SCH (21:06)
[2018-11-28] MEDS: VITAL AF 1.2 1,000 ML LIQUID GT PRN (21:30)
[2018-11-29] VITALS (27 sets, daily range): BP systolic 90–125; BP diastolic 50–70
[2018-11-29] MEDS: POTASSIUM CHLORIDE 20 MEQ in IV D5/ 0.9% NACL 1,000 ML IV PRN (01:21)
[2018-11-29 05:14] LABS: BASOPHILS % (AUTO) 0.2 % (0.0-2.0); EOSINOPHILS # (AUTO) 0.1 K/uL (0.0-0.7); NEUTROPHILS # (AUTO) 13.6 K/uL (1.8-8.9)
[2018-11-29 05:16] LABS: EOSINOPHILS % (AUTO) 0.4 % (0.0-7.0); HEMATOCRIT 22.2 % (31.2-41.9); LYMPHOCYTES # (AUTO) 1.5 K/uL (20.0-40.0); LYMPHOCYTES % (AUTO) 9.3 % (20.5-51.5); MEAN CORPUSCULAR HEMOGLOBIN 31.1 uug (24.7-32.8); MEAN CORPUSCULAR HGB CONC 33 g/dL (32.3-35.6); MEAN CORPUSCULAR VOLUME 93.5 fL (75.5-95.3); MONOCYTES # (AUTO) 1.1 K/uL (2.0-10.0); MONOCYTES % (AUTO) 6.9 % (0.0-11.0); NEUTROPHILS % (AUTO) 83.2 % (38.5-71.5); PLATELET COUNT (AUTO) 544 K/uL (179-408); WHITE BLOOD COUNT (AUTO) 16.4 K/uL (3.8-11.8)
[2018-11-29 05:26] LABS: BILIRUBIN,TOTAL 0.3 mg/dL (0.2-1.0); CREATININE 0.9 mg/dL (0.6-1.3); MAGNESIUM 2.6 mg/dL (1.8-2.4); PHOSPHOROUS 3.8 mg/dL (2.5-4.9); POTASSIUM 3.5 mmol/L (3.5-5.1); TOTAL PROTEIN, SERUM 6.2 g/dL (6.4-8.2); VANCOMYCIN,RANDOM 15.6 ug/mL (18.0-26.0)
[2018-11-29 05:31] LABS: RED BLOOD CELL COUNT(AUTO) 2.37 MIL/uL (3.63-4.92)
[2018-11-29 05:34] LABS: HEMOGLOBIN 7.4 g/dL (10.9-14.3)
[2018-11-29] MEDS: PIPERACILLIN/TAZOBACTAM/D5W 3.375 G in PREMIXED 1 EACH IV SCH ×3 (05:46→21:16)
[2018-11-29] MEDS: BACLOFEN 20 MG TABLET GT SCH ×3 (05:46→21:16)
[2018-11-29] MEDS: ACIDOPHILUS/BULGARICUS CHEW TAB GT SCH ×3 (05:49→21:16)
[2018-11-29] MEDS: PANTOPRAZOLE ORAL SUSPENSION 40 MG SUSPDR.PKT GT SCH (06:46)
[2018-11-29] MEDS: LEVETIRACETAM 500 MG/5 ML LIQUID UDC GT SCH ×2 (08:57→20:32)
[2018-11-29] MEDS: DESMOPRESSIN 0.1 MG TABLET GT SCH ×2 (08:58→16:59)
[2018-11-29] MEDS ORDERED: VANCOMYCIN IV 1 G in PREMIXED 0 EACH IV ONE (09:00)
[2018-11-29] MEDS: HYDROGEN PEROXIDE 3% 118 ML BOTTLE TOP SCH ×2 (09:28→20:34)
[2018-11-29] MEDS: Z GUARD REMEDY PASTE 57 GM TUBE TOP SCH ×2 (09:29→20:35)
[2018-11-29] MEDS: VITAMINS A AND D OINT TP SCH ×2 (09:29→20:43)
[2018-11-29] MEDS: PROTEIN SUPPLEMENT (PROSTAT) 30 ML LIQUID GT SCH ×3 (09:30→16:59)
[2018-11-29] MEDS: POTASSIUM CHLORIDE 20 MEQ in IV D5W 1000ML 1,000 ML IV PRN (11:40)
[2018-11-29] MEDS: IV NORMAL SALINE 250 ML IV PRN (14:03)
[2018-11-29] MEDS: FOLIC ACID 1 MG TABLET GT SCH (20:31)
[2018-11-29] MEDS: CHOLECALCIFEROL 1,000 UNIT TABLET GT SCH (20:37)
[2018-11-29] MEDS: THIAMINE HCL 100 MG TABLET GT SCH (20:38)
[2018-11-29] MEDS: HEPARIN SODIUM,PORCINE 5,000 UNITS/ML VIAL SQ SCH (21:15)
[2018-11-30] VITALS (24 sets, daily range): BP systolic 87–125; BP diastolic 53–80
[2018-11-30] MEDS: POTASSIUM CHLORIDE 20 MEQ in IV D5W 1000ML 1,000 ML IV PRN ×3 (00:51→21:29)
[2018-11-30 05:01] LABS: BASOPHILS # (AUTO) 0.1 K/uL (0.0-8.0); BASOPHILS % (AUTO) 0.6 % (0.0-2.0); EOSINOPHILS # (AUTO) 0.1 K/uL (0.0-0.7); EOSINOPHILS % (AUTO) 1.1 % (0.0-7.0); HEMATOCRIT 25.7 % (31.2-41.9); HEMOGLOBIN 8.6 g/dL (10.9-14.3); LYMPHOCYTES # (AUTO) 2.1 K/uL (20.0-40.0); LYMPHOCYTES % (AUTO) 15.4 % (20.5-51.5); MEAN CORPUSCULAR HEMOGLOBIN 30.4 uug (24.7-32.8); MEAN CORPUSCULAR HGB CONC 34 g/dL (32.3-35.6); MEAN CORPUSCULAR VOLUME 90.4 fL (75.5-95.3); MONOCYTES # (AUTO) 0.6 K/uL (2.0-10.0); MONOCYTES % (AUTO) 4.7 % (0.0-11.0); NEUTROPHILS # (AUTO) 10.8 K/uL (1.8-8.9); NEUTROPHILS % (AUTO) 78.2 % (38.5-71.5); PLATELET COUNT (AUTO) 490 K/uL (179-408); RED BLOOD CELL COUNT(AUTO) 2.84 MIL/uL (3.63-4.92); WHITE BLOOD COUNT (AUTO) 13.8 K/uL (3.8-11.8)
[2018-11-30 05:10] LABS: CREATININE 0.8 mg/dL (0.6-1.3); MAGNESIUM 2.4 mg/dL (1.8-2.4); PHOSPHOROUS 3.4 mg/dL (2.5-4.9); POTASSIUM 3.4 mmol/L (3.5-5.1); VANCOMYCIN,RANDOM 14.1 ug/mL (18.0-26.0)
[2018-11-30] MEDS: ACIDOPHILUS/BULGARICUS CHEW TAB GT SCH ×3 (05:17→21:23)
[2018-11-30] MEDS: BACLOFEN 20 MG TABLET GT SCH ×3 (05:17→21:23)
[2018-11-30] MEDS: PIPERACILLIN/TAZOBACTAM/D5W 3.375 G in PREMIXED 1 EACH IV SCH ×3 (05:18→21:23)
[2018-11-30] MEDS: PANTOPRAZOLE ORAL SUSPENSION 40 MG SUSPDR.PKT GT SCH (06:40)
[2018-11-30] MEDS: DESMOPRESSIN 0.1 MG TABLET GT SCH ×2 (08:13→17:39)
[2018-11-30] MEDS: LEVETIRACETAM 500 MG/5 ML LIQUID UDC GT SCH ×2 (08:13→20:28)
[2018-11-30] MEDS: PROTEIN SUPPLEMENT (PROSTAT) 30 ML LIQUID GT SCH ×3 (08:14→17:39)
[2018-11-30] MEDS: VITAMINS A AND D OINT TP SCH ×2 (08:15→20:26)
[2018-11-30] MEDS: Z GUARD REMEDY PASTE 57 GM TUBE TOP SCH ×2 (08:15→20:26)
[2018-11-30] MEDS ORDERED: IV NORMAL SALINE 500 ML IV ONE (08:45)
[2018-11-30] MEDS: HYDROGEN PEROXIDE 3% 118 ML BOTTLE TOP SCH ×2 (09:00→20:26)
[2018-11-30] MEDS ORDERED: VANCOMYCIN IV 1 G in PREMIXED 0 EACH IV ONE (09:00)
[2018-11-30] MEDS: HEPARIN SODIUM,PORCINE 5,000 UNITS/ML VIAL SQ SCH ×2 (09:00→20:32)
[2018-11-30] MEDS ORDERED: NOREPINEPHRINE BITARTRATE 8 MG in IV DEXTROSE 5% 500 ML IV PRN (09:15)
[2018-11-30] MEDS ORDERED: DESMOPRESSIN INJ 30 MCG in IV NORMAL SALINE 50 ML IV ONE (09:45)
[2018-11-30] MEDS: POTASSIUM CHLORIDE 50 ML IV SCH ×2 (10:54→11:37)
[2018-11-30] MEDS: MIRALAX 17 GM POWD.PACK GT SCH (10:56)
[2018-11-30] MEDS: ALBUMIN HUMAN 25% 25 GM in PREMIXED 1 EACH IV SCH ×4 (10:57→18:46)
[2018-11-30] MEDS ORDERED: ALBUMIN HUMAN 25% 100 ML ONE (10:58)
[2018-11-30] MEDS: LACTULOSE 20 G/30 ML LIQUID UDC PO SCH ×3 (12:29→23:12)
[2018-11-30] MEDS: IV NORMAL SALINE 250 ML IV PRN (13:43)
[2018-11-30] MEDS ORDERED: DESMOPRESSIN 4 MCG/1 ML VIAL SUBCUT ONE (14:00)
[2018-11-30] MEDS: VITAL AF 1.2 1,000 ML LIQUID GT PRN (16:11)
[2018-11-30] MEDS: FOLIC ACID 1 MG TABLET GT SCH (20:26)
[2018-11-30] MEDS: THIAMINE HCL 100 MG TABLET GT SCH (20:26)
[2018-11-30] MEDS: CHOLECALCIFEROL 1,000 UNIT TABLET GT SCH (20:28)
[2018-11-30] MEDS: NYSTATIN POWDER 15 GM BOTTLE TOP SCH (20:29)
[2018-12-01] VITALS (24 sets, daily range): BP systolic 99–133; BP diastolic 62–84
[2018-12-01] MEDS: LACTULOSE 20 G/30 ML LIQUID UDC PO SCH ×3 (05:12→19:03)
[2018-12-01] MEDS: ACIDOPHILUS/BULGARICUS CHEW TAB GT SCH ×3 (05:12→21:37)
[2018-12-01] MEDS: BACLOFEN 20 MG TABLET GT SCH ×3 (05:12→21:37)
[2018-12-01] MEDS: PIPERACILLIN/TAZOBACTAM/D5W 3.375 G in PREMIXED 1 EACH IV SCH ×3 (05:12→21:40)
[2018-12-01 05:19] LABS: BASOPHILS # (AUTO) 0.1 K/uL (0.0-8.0); BASOPHILS % (AUTO) 0.5 % (0.0-2.0); EOSINOPHILS # (AUTO) 0.2 K/uL (0.0-0.7); EOSINOPHILS % (AUTO) 1.9 % (0.0-7.0); HEMATOCRIT 22.1 % (31.2-41.9); HEMOGLOBIN 7.5 g/dL (10.9-14.3); LYMPHOCYTES # (AUTO) 1.6 K/uL (20.0-40.0); LYMPHOCYTES % (AUTO) 15.9 % (20.5-51.5); MEAN CORPUSCULAR HEMOGLOBIN 30.5 uug (24.7-32.8); MEAN CORPUSCULAR HGB CONC 34 g/dL (32.3-35.6); MEAN CORPUSCULAR VOLUME 90.5 fL (75.5-95.3); MONOCYTES # (AUTO) 0.4 K/uL (2.0-10.0); MONOCYTES % (AUTO) 3.6 % (0.0-11.0); NEUTROPHILS # (AUTO) 8.1 K/uL (1.8-8.9); NEUTROPHILS % (AUTO) 78.1 % (38.5-71.5); PLATELET COUNT (AUTO) 361 K/uL (179-408); WHITE BLOOD COUNT (AUTO) 10.4 K/uL (3.8-11.8)
[2018-12-01 05:22] LABS: BILIRUBIN,TOTAL 0.7 mg/dL (0.2-1.0); CREATININE 0.7 mg/dL (0.6-1.3); POTASSIUM 3.4 mmol/L (3.5-5.1); TOTAL PROTEIN, SERUM 6.6 g/dL (6.4-8.2)
[2018-12-01 05:27] LABS: PHOSPHOROUS 2.8 mg/dL (2.5-4.9)
[2018-12-01 05:33] LABS: RED BLOOD CELL COUNT(AUTO) 2.45 MIL/uL (3.63-4.92)
[2018-12-01] MEDS: PANTOPRAZOLE ORAL SUSPENSION 40 MG SUSPDR.PKT GT SCH (06:30)
[2018-12-01 07:45] LABS: ABG BASE EXCESS -1.2 mmol/L; ABG HCO3 22.1 mmol/L; ABG PCO2 31.4 mmHg (35.0-45.0); ABG PH 7.466 (7.350-7.450); ABG PO2 82.4 mmHg (75.0-100.0); ABG SITE LEFT BRACHIAL; ABG TOTAL HEMOGLOBIN 8.4 G/dL (12.0-16.0); COHb 1.4 % (0.5-1.5); MetHb 0.1 % (0.0-1.5); O2Hb 95.3 % (94.0-97.0); VENT MODE VENT - SIMV; VT, ABG 500 mL
[2018-12-01] MEDS: HEPARIN SODIUM,PORCINE 5,000 UNITS/ML VIAL SQ SCH ×2 (09:00→21:39)
[2018-12-01] MEDS: POTASSIUM CHLORIDE 20 MEQ in IV D5W 1000ML 1,000 ML IV PRN (09:48)
[2018-12-01] MEDS: MIRALAX 17 GM POWD.PACK GT SCH (10:05)
[2018-12-01] MEDS: LEVETIRACETAM 500 MG/5 ML LIQUID UDC GT SCH ×2 (10:05→21:37)
[2018-12-01] MEDS: DESMOPRESSIN 0.1 MG TABLET GT SCH ×2 (10:05→19:02)
[2018-12-01] MEDS: Z GUARD REMEDY PASTE 57 GM TUBE TOP SCH ×2 (10:08→21:40)
[2018-12-01] MEDS: NYSTATIN POWDER 15 GM BOTTLE TOP SCH ×2 (10:09→21:39)
[2018-12-01] MEDS: VITAMINS A AND D OINT TP SCH ×2 (10:10→21:40)
[2018-12-01] MEDS: HYDROGEN PEROXIDE 3% 118 ML BOTTLE TOP SCH ×2 (10:12→21:39)
[2018-12-01] MEDS: PROTEIN SUPPLEMENT (PROSTAT) 30 ML LIQUID GT SCH ×3 (10:15→19:02)
[2018-12-01] MEDS: POTASSIUM CHLORIDE 50 ML IV SCH ×2 (12:02→13:24)
[2018-12-01] MEDS ORDERED: SWABABLE VALVE TRANSFER SET EA MC ONE (16:26)
[2018-12-01] MEDS ORDERED: IV NORMAL SALINE 250 ML IV ONE (16:27)
[2018-12-01] MEDS ORDERED: IOHEXOL 300MG/ML 100 ML INFUS..BTL ONE (16:27)
[2018-12-01] MEDS: VITAL AF 1.2 1,000 ML LIQUID GT PRN (19:00)
[2018-12-01] MEDS: IV NORMAL SALINE 250 ML IV PRN (19:02)
[2018-12-01 21:31] LABS: *OCCULT BLOOD STOOL POSITIVE (NEGATIVE)
[2018-12-01] MEDS: FOLIC ACID 1 MG TABLET GT SCH (21:37)
[2018-12-01] MEDS: CHOLECALCIFEROL 1,000 UNIT TABLET GT SCH (21:37)
[2018-12-01] MEDS: THIAMINE HCL 100 MG TABLET GT SCH (21:37)
[2018-12-02] VITALS (22 sets, daily range): BP systolic 90–115; BP diastolic 55–76
[2018-12-02 05:00] LABS: BASOPHILS % (AUTO) 0.5 % (0.0-2.0); EOSINOPHILS # (AUTO) 0.2 K/uL (0.0-0.7); EOSINOPHILS % (AUTO) 1.8 % (0.0-7.0); HEMATOCRIT 23.1 % (31.2-41.9); HEMOGLOBIN 7.9 g/dL (10.9-14.3); LYMPHOCYTES # (AUTO) 1.5 K/uL (20.0-40.0); LYMPHOCYTES % (AUTO) 14.1 % (20.5-51.5); MEAN CORPUSCULAR HEMOGLOBIN 30.4 uug (24.7-32.8); MEAN CORPUSCULAR HGB CONC 34 g/dL (32.3-35.6); MEAN CORPUSCULAR VOLUME 89.3 fL (75.5-95.3); MONOCYTES # (AUTO) 0.6 K/uL (2.0-10.0); MONOCYTES % (AUTO) 5.8 % (0.0-11.0); NEUTROPHILS # (AUTO) 8.1 K/uL (1.8-8.9); NEUTROPHILS % (AUTO) 77.8 % (38.5-71.5); PLATELET COUNT (AUTO) 374 K/uL (179-408); RED BLOOD CELL COUNT(AUTO) 2.59 MIL/uL (3.63-4.92); WHITE BLOOD COUNT (AUTO) 10.3 K/uL (3.8-11.8)
[2018-12-02 05:16] LABS: CREATININE 0.7 mg/dL (0.6-1.3); PHOSPHOROUS 3.6 mg/dL (2.5-4.9); POTASSIUM 3.9 mmol/L (3.5-5.1)
[2018-12-02 05:17] LABS: BILIRUBIN,DIRECT 0.2 mg/dL (0.0-0.2); BILIRUBIN,TOTAL 0.6 mg/dL (0.2-1.0); TOTAL PROTEIN, SERUM 6.3 g/dL (6.4-8.2)
[2018-12-02] MEDS: PIPERACILLIN/TAZOBACTAM/D5W 3.375 G in PREMIXED 1 EACH IV SCH ×3 (05:44→21:03)
[2018-12-02] MEDS: PANTOPRAZOLE ORAL SUSPENSION 40 MG SUSPDR.PKT GT SCH (05:45)
[2018-12-02] MEDS: BACLOFEN 20 MG TABLET GT SCH ×3 (05:45→21:02)
[2018-12-02] MEDS: ACIDOPHILUS/BULGARICUS CHEW TAB GT SCH ×3 (05:45→21:02)
[2018-12-02] MEDS ORDERED: MISCELLANEOUS MED XX PRN (07:00)
[2018-12-02] MEDS: MIRALAX 17 GM POWD.PACK GT SCH (08:09)
[2018-12-02] MEDS: LEVETIRACETAM 500 MG/5 ML LIQUID UDC GT SCH ×2 (08:11→20:12)
[2018-12-02] MEDS: PROTEIN SUPPLEMENT (PROSTAT) 30 ML LIQUID GT SCH ×3 (08:12→17:26)
[2018-12-02] MEDS: Z GUARD REMEDY PASTE 57 GM TUBE TOP SCH ×2 (08:12→20:16)
[2018-12-02] MEDS: DESMOPRESSIN 0.1 MG TABLET GT SCH ×2 (08:12→17:26)
[2018-12-02] MEDS: VITAMINS A AND D OINT TP SCH ×2 (08:13→20:15)
[2018-12-02] MEDS: NYSTATIN POWDER 15 GM BOTTLE TOP SCH ×2 (08:14→20:16)
[2018-12-02] MEDS: HYDROGEN PEROXIDE 3% 118 ML BOTTLE TOP SCH ×2 (08:14→20:15)
[2018-12-02] MEDS: HEPARIN SODIUM,PORCINE 5,000 UNITS/ML VIAL SQ SCH ×2 (10:09→20:14)
[2018-12-02] MEDS ORDERED: ALTEPLASE XX ONE (16:00)
[2018-12-02] MEDS ORDERED: NORMAL SALINE XX ONE (16:00)
[2018-12-02] MEDS: FOLIC ACID 1 MG TABLET GT SCH (20:12)
[2018-12-02] MEDS: THIAMINE HCL 100 MG TABLET GT SCH (20:12)
[2018-12-02] MEDS: CHOLECALCIFEROL 1,000 UNIT TABLET GT SCH (20:13)
[2018-12-02] MEDS: VITAL AF 1.2 1,000 ML LIQUID GT PRN (21:43)
[2018-12-03] VITALS (23 sets, daily range): BP systolic 88–121; BP diastolic 50–72
[2018-12-03 04:58] LABS: BASOPHILS % (AUTO) 0.5 % (0.0-2.0); EOSINOPHILS # (AUTO) 0.2 K/uL (0.0-0.7); EOSINOPHILS % (AUTO) 1.7 % (0.0-7.0); HEMATOCRIT 22.8 % (31.2-41.9); HEMOGLOBIN 7.8 g/dL (10.9-14.3); LYMPHOCYTES # (AUTO) 1.6 K/uL (20.0-40.0); MEAN CORPUSCULAR HEMOGLOBIN 30.2 uug (24.7-32.8); MEAN CORPUSCULAR HGB CONC 34 g/dL (32.3-35.6); MEAN CORPUSCULAR VOLUME 88.6 fL (75.5-95.3); MONOCYTES # (AUTO) 0.6 K/uL (2.0-10.0); MONOCYTES % (AUTO) 6.2 % (0.0-11.0); NEUTROPHILS # (AUTO) 7.2 K/uL (1.8-8.9); NEUTROPHILS % (AUTO) 74.6 % (38.5-71.5); PLATELET COUNT (AUTO) 363 K/uL (179-408); RED BLOOD CELL COUNT(AUTO) 2.58 MIL/uL (3.63-4.92); WHITE BLOOD COUNT (AUTO) 9.6 K/uL (3.8-11.8)
[2018-12-03 05:16] LABS: CREATININE 0.6 mg/dL (0.6-1.3); MAGNESIUM 2.1 mg/dL (1.8-2.4); PHOSPHOROUS 4.1 mg/dL (2.5-4.9); POTASSIUM 3.7 mmol/L (3.5-5.1)
[2018-12-03] MEDS: ACIDOPHILUS/BULGARICUS CHEW TAB GT SCH ×3 (05:22→21:04)
[2018-12-03] MEDS: BACLOFEN 20 MG TABLET GT SCH ×3 (05:22→21:04)
[2018-12-03] MEDS: PIPERACILLIN/TAZOBACTAM/D5W 3.375 G in PREMIXED 1 EACH IV SCH ×3 (05:53→21:05)
[2018-12-03] MEDS: PANTOPRAZOLE ORAL SUSPENSION 40 MG SUSPDR.PKT GT SCH (07:18)
[2018-12-03 08:23] LABS: ABG BASE EXCESS 2.4 mmol/L; ABG HCO3 24.8 mmol/L; ABG PH 7.535 (7.350-7.450); ABG PO2 121.7 mmHg (75.0-100.0); ABG SITE LEFT RADIAL; ABG TOTAL HEMOGLOBIN 8.6 G/dL (12.0-16.0); COHb 1.3 % (0.5-1.5); O2Hb 97.7 % (94.0-97.0); VENT MODE VENT - SIMV; VT, ABG 500 mL
[2018-12-03] MEDS: DESMOPRESSIN 0.1 MG TABLET GT SCH ×2 (08:39→18:29)
[2018-12-03] MEDS: LEVETIRACETAM 500 MG/5 ML LIQUID UDC GT SCH ×2 (08:39→20:20)
[2018-12-03] MEDS: PROTEIN SUPPLEMENT (PROSTAT) 30 ML LIQUID GT SCH ×3 (08:40→18:29)
[2018-12-03] MEDS: HYDROGEN PEROXIDE 3% 118 ML BOTTLE TOP SCH ×2 (08:41→20:25)
[2018-12-03] MEDS: VITAMINS A AND D OINT TP SCH ×2 (08:41→20:26)
[2018-12-03] MEDS: Z GUARD REMEDY PASTE 57 GM TUBE TOP SCH ×2 (08:42→20:26)
[2018-12-03] MEDS: NYSTATIN POWDER 15 GM BOTTLE TOP SCH ×2 (08:42→20:26)
[2018-12-03] MEDS: MIRALAX 17 GM POWD.PACK GT SCH (08:46)
[2018-12-03] MEDS: VITAL AF 1.2 1,000 ML LIQUID GT PRN (09:45)
[2018-12-03] MEDS: IV NORMAL SALINE 250 ML IV PRN (09:45)
[2018-12-03] MEDS: HEPARIN SODIUM,PORCINE 5,000 UNITS/ML VIAL SQ SCH ×2 (12:25→20:25)
[2018-12-03] MEDS: CHOLECALCIFEROL 1,000 UNIT TABLET GT SCH (20:20)
[2018-12-03] MEDS: THIAMINE HCL 100 MG TABLET GT SCH (20:20)
[2018-12-03] MEDS: FOLIC ACID 1 MG TABLET GT SCH (20:20)
[2018-12-04] VITALS (24 sets, daily range): BP systolic 88–125; BP diastolic 51–71
[2018-12-04] MEDS: PIPERACILLIN/TAZOBACTAM/D5W 3.375 G in PREMIXED 1 EACH IV SCH (05:11)
[2018-12-04] MEDS: ACIDOPHILUS/BULGARICUS CHEW TAB GT SCH ×3 (05:11→21:10)
[2018-12-04] MEDS: BACLOFEN 20 MG TABLET GT SCH ×3 (05:11→21:05)
[2018-12-04 05:29] LABS: BASOPHILS # (AUTO) 0.1 K/uL (0.0-8.0); BASOPHILS % (AUTO) 0.5 % (0.0-2.0); EOSINOPHILS # (AUTO) 0.1 K/uL (0.0-0.7); EOSINOPHILS % (AUTO) 1.5 % (0.0-7.0); HEMATOCRIT 25.8 % (31.2-41.9); HEMOGLOBIN 8.9 g/dL (10.9-14.3); LYMPHOCYTES # (AUTO) 1.7 K/uL (20.0-40.0); LYMPHOCYTES % (AUTO) 17.6 % (20.5-51.5); MEAN CORPUSCULAR HEMOGLOBIN 30.9 uug (24.7-32.8); MEAN CORPUSCULAR HGB CONC 35 g/dL (32.3-35.6); MEAN CORPUSCULAR VOLUME 89.6 fL (75.5-95.3); MONOCYTES # (AUTO) 0.6 K/uL (2.0-10.0); MONOCYTES % (AUTO) 6.5 % (0.0-11.0); NEUTROPHILS # (AUTO) 7.2 K/uL (1.8-8.9); NEUTROPHILS % (AUTO) 73.9 % (38.5-71.5); PLATELET COUNT (AUTO) 439 K/uL (179-408); RED BLOOD CELL COUNT(AUTO) 2.88 MIL/uL (3.63-4.92); WHITE BLOOD COUNT (AUTO) 9.7 K/uL (3.8-11.8)
[2018-12-04 05:54] LABS: CREATININE 0.8 mg/dL (0.6-1.3); MAGNESIUM 2.3 mg/dL (1.8-2.4); PHOSPHOROUS 3.9 mg/dL (2.5-4.9); POTASSIUM 3.5 mmol/L (3.5-5.1)
[2018-12-04] MEDS: PANTOPRAZOLE ORAL SUSPENSION 40 MG SUSPDR.PKT GT SCH (06:35)
[2018-12-04] MEDS: MIRALAX 17 GM POWD.PACK GT SCH (08:35)
[2018-12-04] MEDS: LEVETIRACETAM 500 MG/5 ML LIQUID UDC GT SCH ×2 (08:37→20:21)
[2018-12-04] MEDS: DESMOPRESSIN 0.1 MG TABLET GT SCH ×2 (08:37→17:52)
[2018-12-04] MEDS: HYDROGEN PEROXIDE 3% 118 ML BOTTLE TOP SCH ×2 (08:40→20:20)
[2018-12-04] MEDS: NYSTATIN POWDER 15 GM BOTTLE TOP SCH ×2 (08:40→20:20)
[2018-12-04] MEDS: Z GUARD REMEDY PASTE 57 GM TUBE TOP SCH ×2 (08:40→20:20)
[2018-12-04] MEDS: VITAMINS A AND D OINT TP SCH ×2 (08:41→20:19)
[2018-12-04] MEDS: PROTEIN SUPPLEMENT (PROSTAT) 30 ML LIQUID GT SCH ×3 (08:43→17:52)
[2018-12-04] MEDS: HEPARIN SODIUM,PORCINE 5,000 UNITS/ML VIAL SQ SCH ×2 (08:45→21:07)
[2018-12-04] MEDS: VITAL AF 1.2 1,000 ML LIQUID GT PRN (10:34)
[2018-12-04] MEDS: METRONIDAZOLE 500 MG TABLET GT SCH ×2 (14:16→21:05)
[2018-12-04] MEDS: VANCOMYCIN FOR PO/GT/NG USE GT SCH (17:50)
[2018-12-04] MEDS: THIAMINE HCL 100 MG TABLET GT SCH (20:21)
[2018-12-04] MEDS: CEFEPIME HCL 1 G in IV DEXTROSE 5% 50 ML IV SCH (20:21)
[2018-12-04] MEDS: FOLIC ACID 1 MG TABLET GT SCH (20:21)
[2018-12-04] MEDS: CHOLECALCIFEROL 1,000 UNIT TABLET GT SCH (20:26)
[2018-12-04] MEDS: IV NORMAL SALINE 250 ML IV PRN (21:20)
[2018-12-05] VITALS (24 sets, daily range): BP systolic 95–129; BP diastolic 51–87
[2018-12-05] MEDS: VANCOMYCIN FOR PO/GT/NG USE GT SCH ×5 (00:11→23:03)
[2018-12-05 04:54] LABS: BASOPHILS # (AUTO) 0.1 K/uL (0.0-8.0); BASOPHILS % (AUTO) 0.5 % (0.0-2.0); EOSINOPHILS # (AUTO) 0.2 K/uL (0.0-0.7); EOSINOPHILS % (AUTO) 1.8 % (0.0-7.0); HEMOGLOBIN 8.4 g/dL (10.9-14.3); LYMPHOCYTES # (AUTO) 2.2 K/uL (20.0-40.0); LYMPHOCYTES % (AUTO) 21.3 % (20.5-51.5); MEAN CORPUSCULAR HEMOGLOBIN 30.5 uug (24.7-32.8); MEAN CORPUSCULAR HGB CONC 34 g/dL (32.3-35.6); MEAN CORPUSCULAR VOLUME 90.2 fL (75.5-95.3); MONOCYTES # (AUTO) 0.7 K/uL (2.0-10.0); MONOCYTES % (AUTO) 6.6 % (0.0-11.0); NEUTROPHILS # (AUTO) 7.3 K/uL (1.8-8.9); NEUTROPHILS % (AUTO) 69.8 % (38.5-71.5); PLATELET COUNT (AUTO) 397 K/uL (179-408); RED BLOOD CELL COUNT(AUTO) 2.77 MIL/uL (3.63-4.92); WHITE BLOOD COUNT (AUTO) 10.5 K/uL (3.8-11.8)
[2018-12-05 05:05] LABS: CREATININE 0.7 mg/dL (0.6-1.3); MAGNESIUM 2.2 mg/dL (1.8-2.4); PHOSPHOROUS 3.3 mg/dL (2.5-4.9); POTASSIUM 3.6 mmol/L (3.5-5.1)
[2018-12-05] MEDS: METRONIDAZOLE 500 MG TABLET GT SCH ×3 (05:11→21:11)
[2018-12-05] MEDS: ACIDOPHILUS/BULGARICUS CHEW TAB GT SCH ×3 (05:11→21:16)
[2018-12-05] MEDS: BACLOFEN 20 MG TABLET GT SCH ×3 (05:11→21:18)
[2018-12-05] MEDS: PANTOPRAZOLE ORAL SUSPENSION 40 MG SUSPDR.PKT GT SCH (06:40)
[2018-12-05] MEDS: PROTEIN SUPPLEMENT (PROSTAT) 30 ML LIQUID GT SCH ×3 (08:01→16:01)
[2018-12-05] MEDS: CEFEPIME HCL 1 G in IV DEXTROSE 5% 50 ML IV SCH ×2 (08:01→21:17)
[2018-12-05] MEDS: LEVETIRACETAM 500 MG/5 ML LIQUID UDC GT SCH ×2 (08:01→21:16)
[2018-12-05] MEDS: MIRALAX 17 GM POWD.PACK GT SCH (08:03)
[2018-12-05] MEDS: Z GUARD REMEDY PASTE 57 GM TUBE TOP SCH ×2 (08:03→21:15)
[2018-12-05] MEDS: VITAMINS A AND D OINT TP SCH ×2 (08:04→21:15)
[2018-12-05] MEDS: HYDROGEN PEROXIDE 3% 118 ML BOTTLE TOP SCH ×2 (08:04→21:13)
[2018-12-05] MEDS: NYSTATIN POWDER 15 GM BOTTLE TOP SCH ×2 (08:05→21:14)
[2018-12-05] MEDS: DESMOPRESSIN 0.1 MG TABLET GT SCH ×2 (08:06→16:01)
[2018-12-05] MEDS: HEPARIN SODIUM,PORCINE 5,000 UNITS/ML VIAL SQ SCH ×2 (08:07→21:13)
[2018-12-05] MEDS: VITAL AF 1.2 1,000 ML LIQUID GT PRN (10:51)
[2018-12-05] MEDS: FOLIC ACID 1 MG TABLET GT SCH (21:16)
[2018-12-05] MEDS: THIAMINE HCL 100 MG TABLET GT SCH (21:17)
[2018-12-05] MEDS: CHOLECALCIFEROL 1,000 UNIT TABLET GT SCH (21:18)
[2018-12-06] VITALS (17 sets, daily range): BP systolic 92–115; BP diastolic 55–87
[2018-12-06 05:01] LABS: BASOPHILS # (AUTO) 0.1 K/uL (0.0-8.0); BASOPHILS % (AUTO) 0.6 % (0.0-2.0); EOSINOPHILS # (AUTO) 0.1 K/uL (0.0-0.7); EOSINOPHILS % (AUTO) 1.6 % (0.0-7.0); HEMOGLOBIN 8.1 g/dL (10.9-14.3); LYMPHOCYTES # (AUTO) 2.2 K/uL (20.0-40.0); LYMPHOCYTES % (AUTO) 23.3 % (20.5-51.5); MEAN CORPUSCULAR HEMOGLOBIN 30.3 uug (24.7-32.8); MEAN CORPUSCULAR HGB CONC 34 g/dL (32.3-35.6); MEAN CORPUSCULAR VOLUME 89.9 fL (75.5-95.3); MONOCYTES # (AUTO) 0.6 K/uL (2.0-10.0); MONOCYTES % (AUTO) 6.7 % (0.0-11.0); NEUTROPHILS # (AUTO) 6.3 K/uL (1.8-8.9); NEUTROPHILS % (AUTO) 67.8 % (38.5-71.5); PLATELET COUNT (AUTO) 390 K/uL (179-408); RED BLOOD CELL COUNT(AUTO) 2.67 MIL/uL (3.63-4.92); WHITE BLOOD COUNT (AUTO) 9.3 K/uL (3.8-11.8)
[2018-12-06 05:10] LABS: CREATININE 0.6 mg/dL (0.6-1.3); MAGNESIUM 2.1 mg/dL (1.8-2.4); PHOSPHOROUS 3.6 mg/dL (2.5-4.9); POTASSIUM 3.4 mmol/L (3.5-5.1)
[2018-12-06] MEDS: METRONIDAZOLE 500 MG TABLET GT SCH ×3 (05:12→22:01)
[2018-12-06] MEDS: ACIDOPHILUS/BULGARICUS CHEW TAB GT SCH ×3 (05:12→22:01)
[2018-12-06] MEDS: VANCOMYCIN FOR PO/GT/NG USE GT SCH ×3 (05:12→16:32)
[2018-12-06] MEDS: BACLOFEN 20 MG TABLET GT SCH ×3 (05:12→22:02)
[2018-12-06] MEDS: PANTOPRAZOLE ORAL SUSPENSION 40 MG SUSPDR.PKT GT SCH (06:21)
[2018-12-06 07:50] LABS: ABG BASE EXCESS -0.7 mmol/L; ABG HCO3 22.9 mmol/L; ABG PCO2 33.1 mmHg (35.0-45.0); ABG PH 7.457 (7.350-7.450); ABG PO2 122.3 mmHg (75.0-100.0); ABG SITE RIGHT RADIAL; ABG TOTAL HEMOGLOBIN 9.1 G/dL (12.0-16.0); COHb 1.2 % (0.5-1.5); MetHb 0.2 % (0.0-1.5); O2Hb 97.5 % (94.0-97.0); VENT MODE VENT - SIMV; VT, ABG 500 mL
[2018-12-06] MEDS: DESMOPRESSIN 0.1 MG TABLET GT SCH ×2 (08:26→16:32)
[2018-12-06] MEDS: LEVETIRACETAM 500 MG/5 ML LIQUID UDC GT SCH ×2 (08:26→20:05)
[2018-12-06] MEDS: PROTEIN SUPPLEMENT (PROSTAT) 30 ML LIQUID GT SCH ×3 (08:27→16:32)
[2018-12-06] MEDS: NYSTATIN POWDER 15 GM BOTTLE TOP SCH ×2 (08:29→20:07)
[2018-12-06] MEDS: Z GUARD REMEDY PASTE 57 GM TUBE TOP SCH ×2 (08:29→20:07)
[2018-12-06] MEDS: HYDROGEN PEROXIDE 3% 118 ML BOTTLE TOP SCH ×2 (08:29→20:07)
[2018-12-06] MEDS: VITAMINS A AND D OINT TP SCH ×2 (08:29→20:08)
[2018-12-06] MEDS: CEFEPIME HCL 1 G in IV DEXTROSE 5% 50 ML IV SCH ×2 (08:30→20:09)
[2018-12-06] MEDS: HEPARIN SODIUM,PORCINE 5,000 UNITS/ML VIAL SQ SCH ×2 (08:31→20:08)
[2018-12-06] MEDS: MIRALAX 17 GM POWD.PACK GT SCH (08:58)
[2018-12-06] MEDS ORDERED: POTASSIUM CHLORIDE 20 MEQ POWDER PACKET GT ONE (09:30)
[2018-12-06] MEDS: VITAL AF 1.2 1,000 ML LIQUID GT PRN (09:43)
[2018-12-06] MEDS: IV NORMAL SALINE 250 ML IV PRN (11:46)
[2018-12-06] MEDS: FOLIC ACID 1 MG TABLET GT SCH (20:05)
[2018-12-06] MEDS: THIAMINE HCL 100 MG TABLET GT SCH (20:06)
[2018-12-06] MEDS: CHOLECALCIFEROL 1,000 UNIT TABLET GT SCH (20:06)
[2018-12-07] VITALS (17 sets, daily range): BP systolic 93–115; BP diastolic 55–74
[2018-12-07] MEDS: VANCOMYCIN FOR PO/GT/NG USE GT SCH ×4 (00:05→17:27)
[2018-12-07] MEDS: ACIDOPHILUS/BULGARICUS CHEW TAB GT SCH ×3 (05:16→21:03)
[2018-12-07] MEDS: BACLOFEN 20 MG TABLET GT SCH ×3 (05:16→21:03)
[2018-12-07] MEDS: METRONIDAZOLE 500 MG TABLET GT SCH ×3 (05:16→21:03)
[2018-12-07 06:21] LABS: BASOPHILS # (AUTO) 0.1 K/uL (0.0-8.0); BASOPHILS % (AUTO) 0.8 % (0.0-2.0); EOSINOPHILS # (AUTO) 0.2 K/uL (0.0-0.7); EOSINOPHILS % (AUTO) 1.7 % (0.0-7.0); HEMATOCRIT 23.3 % (31.2-41.9); HEMOGLOBIN 7.9 g/dL (10.9-14.3); LYMPHOCYTES # (AUTO) 1.8 K/uL (20.0-40.0); LYMPHOCYTES % (AUTO) 20.8 % (20.5-51.5); MEAN CORPUSCULAR HEMOGLOBIN 30.8 uug (24.7-32.8); MEAN CORPUSCULAR HGB CONC 34 g/dL (32.3-35.6); MEAN CORPUSCULAR VOLUME 90.2 fL (75.5-95.3); MONOCYTES # (AUTO) 0.5 K/uL (2.0-10.0); MONOCYTES % (AUTO) 6.1 % (0.0-11.0); NEUTROPHILS # (AUTO) 6.2 K/uL (1.8-8.9); NEUTROPHILS % (AUTO) 70.6 % (38.5-71.5); PLATELET COUNT (AUTO) 359 K/uL (179-408); RED BLOOD CELL COUNT(AUTO) 2.58 MIL/uL (3.63-4.92); WHITE BLOOD COUNT (AUTO) 8.7 K/uL (3.8-11.8)
[2018-12-07] MEDS: PANTOPRAZOLE ORAL SUSPENSION 40 MG SUSPDR.PKT GT SCH (06:45)
[2018-12-07 06:57] LABS: CARBON DIOXIDE 24 mmol/L (21-32); CHLORIDE 105 mmol/L (98-107); CREATININE 0.5 mg/dL (0.6-1.3); GLUCOSE 102 mg/dL (74-106); MAGNESIUM 1.8 mg/dL (1.8-2.4); PHOSPHOROUS 3.9 mg/dL (2.5-4.9); POTASSIUM 3.6 mmol/L (3.5-5.1); UREA NITROGEN, BLOOD 31 mg/dL (7-18)
[2018-12-07] MEDS: LEVETIRACETAM 500 MG/5 ML LIQUID UDC GT SCH ×2 (08:33→20:44)
[2018-12-07] MEDS: DESMOPRESSIN 0.1 MG TABLET GT SCH ×2 (08:34→17:27)
[2018-12-07] MEDS: HEPARIN SODIUM,PORCINE 5,000 UNITS/ML VIAL SQ SCH ×2 (08:35→21:03)
[2018-12-07] MEDS: MIRALAX 17 GM POWD.PACK GT SCH (08:39)
[2018-12-07] MEDS: PROTEIN SUPPLEMENT (PROSTAT) 30 ML LIQUID GT SCH ×3 (08:40→17:28)
[2018-12-07] MEDS: HYDROGEN PEROXIDE 3% 118 ML BOTTLE TOP SCH ×2 (08:41→20:58)
[2018-12-07] MEDS: NYSTATIN POWDER 15 GM BOTTLE TOP SCH ×2 (08:41→20:59)
[2018-12-07] MEDS: Z GUARD REMEDY PASTE 57 GM TUBE TOP SCH ×2 (08:42→20:59)
[2018-12-07] MEDS: VITAMINS A AND D OINT TP SCH ×2 (08:42→20:59)
[2018-12-07] MEDS: CEFEPIME HCL 1 G in IV DEXTROSE 5% 50 ML IV SCH ×2 (08:43→21:00)
[2018-12-07] MEDS: VITAL AF 1.2 1,000 ML LIQUID GT PRN (09:26)
[2018-12-07] MEDS: IV NORMAL SALINE 250 ML IV PRN (09:31)
[2018-12-07] MEDS ORDERED: POTASSIUM CHLORIDE 20 MEQ POWDER PACKET GT ONE (10:45)
[2018-12-07] MEDS: THIAMINE HCL 100 MG TABLET GT SCH (20:44)
[2018-12-07] MEDS: CHOLECALCIFEROL 1,000 UNIT TABLET GT SCH (20:44)
[2018-12-07] MEDS: FOLIC ACID 1 MG TABLET GT SCH (20:44)
[2018-12-07] MEDS: POLYVINYL ALCOHOL OPHT DROPS 15 ML BOTTLE EACHEYE PRN (20:59)
[2018-12-08] VITALS (24 sets, daily range): BP systolic 92–127; BP diastolic 45–76
[2018-12-08] MEDS: VANCOMYCIN FOR PO/GT/NG USE GT SCH ×5 (00:15→23:35)
[2018-12-08] MEDS: ACIDOPHILUS/BULGARICUS CHEW TAB GT SCH ×3 (05:16→21:00)
[2018-12-08] MEDS: METRONIDAZOLE 500 MG TABLET GT SCH ×3 (05:16→21:00)
[2018-12-08] MEDS: BACLOFEN 20 MG TABLET GT SCH ×3 (05:17→21:00)
[2018-12-08 05:26] LABS: ALANINE AMINOTRANSFERASE 35 U/L (14-59); ALKALINE PHOSPHATASE 108 U/L (50-136); ASPARTATE AMINOTRANSFERASE 11 U/L (15-37); BILIRUBIN,TOTAL 0.4 mg/dL (0.2-1.0); CARBON DIOXIDE 25 mmol/L (21-32); CHLORIDE 104 mmol/L (98-107); CREATININE 0.5 mg/dL (0.6-1.3); GLUCOSE 86 mg/dL (74-106); POTASSIUM 3.9 mmol/L (3.5-5.1); TOTAL PROTEIN, SERUM 7.6 g/dL (6.4-8.2); UREA NITROGEN, BLOOD 32 mg/dL (7-18)
[2018-12-08 05:37] LABS: BASOPHILS # (AUTO) 0.1 K/uL (0.0-8.0); BASOPHILS % (AUTO) 0.9 % (0.0-2.0); EOSINOPHILS # (AUTO) 0.1 K/uL (0.0-0.7); EOSINOPHILS % (AUTO) 1.8 % (0.0-7.0); HEMATOCRIT 25.2 % (31.2-41.9); HEMOGLOBIN 8.6 g/dL (10.9-14.3); LYMPHOCYTES # (AUTO) 1.9 K/uL (20.0-40.0); MEAN CORPUSCULAR HEMOGLOBIN 30.6 uug (24.7-32.8); MEAN CORPUSCULAR HGB CONC 34 g/dL (32.3-35.6); MEAN CORPUSCULAR VOLUME 89.3 fL (75.5-95.3); MONOCYTES # (AUTO) 0.5 K/uL (2.0-10.0); MONOCYTES % (AUTO) 6.3 % (0.0-11.0); NEUTROPHILS # (AUTO) 5.6 K/uL (1.8-8.9); PLATELET COUNT (AUTO) 376 K/uL (179-408); RED BLOOD CELL COUNT(AUTO) 2.82 MIL/uL (3.63-4.92); WHITE BLOOD COUNT (AUTO) 8.2 K/uL (3.8-11.8)
[2018-12-08] MEDS: PANTOPRAZOLE ORAL SUSPENSION 40 MG SUSPDR.PKT GT SCH (06:30)
[2018-12-08] MEDS: DESMOPRESSIN 0.1 MG TABLET GT SCH ×2 (08:30→18:01)
[2018-12-08] MEDS: LEVETIRACETAM 500 MG/5 ML LIQUID UDC GT SCH ×2 (08:30→20:44)
[2018-12-08] MEDS: PROTEIN SUPPLEMENT (PROSTAT) 30 ML LIQUID GT SCH ×3 (08:31→17:54)
[2018-12-08] MEDS: MIRALAX 17 GM POWD.PACK GT SCH (08:31)
[2018-12-08] MEDS: HEPARIN SODIUM,PORCINE 5,000 UNITS/ML VIAL SQ SCH ×2 (08:32→20:45)
[2018-12-08] MEDS: CEFEPIME HCL 1 G in IV DEXTROSE 5% 50 ML IV SCH ×2 (08:32→21:00)
[2018-12-08] MEDS: VITAMINS A AND D OINT TP SCH ×2 (08:33→20:49)
[2018-12-08] MEDS: Z GUARD REMEDY PASTE 57 GM TUBE TOP SCH ×2 (08:33→20:46)
[2018-12-08] MEDS: HYDROGEN PEROXIDE 3% 118 ML BOTTLE TOP SCH ×2 (08:33→20:49)
[2018-12-08] MEDS: NYSTATIN POWDER 15 GM BOTTLE TOP SCH ×2 (08:33→20:49)
[2018-12-08] MEDS: IV NORMAL SALINE 250 ML IV PRN (15:35)
[2018-12-08] MEDS: FOLIC ACID 1 MG TABLET GT SCH (20:44)
[2018-12-08] MEDS: THIAMINE HCL 100 MG TABLET GT SCH (20:44)
[2018-12-08] MEDS: CHOLECALCIFEROL 1,000 UNIT TABLET GT SCH (20:44)
[2018-12-08] MEDS: VITAL AF 1.2 1,000 ML LIQUID GT PRN (22:29)
[2018-12-09] VITALS (24 sets, daily range): BP systolic 90–115; BP diastolic 52–69
[2018-12-09] MEDS: IV NORMAL SALINE 250 ML IV PRN (05:01)
[2018-12-09 05:22] LABS: BASOPHILS # (AUTO) 0.1 K/uL (0.0-8.0); BASOPHILS % (AUTO) 0.6 % (0.0-2.0); EOSINOPHILS # (AUTO) 0.1 K/uL (0.0-0.7); EOSINOPHILS % (AUTO) 1.8 % (0.0-7.0); HEMATOCRIT 26.2 % (31.2-41.9); LYMPHOCYTES # (AUTO) 1.8 K/uL (20.0-40.0); LYMPHOCYTES % (AUTO) 22.6 % (20.5-51.5); MEAN CORPUSCULAR HEMOGLOBIN 30.6 uug (24.7-32.8); MEAN CORPUSCULAR HGB CONC 34 g/dL (32.3-35.6); MONOCYTES # (AUTO) 0.5 K/uL (2.0-10.0); NEUTROPHILS # (AUTO) 5.6 K/uL (1.8-8.9); PLATELET COUNT (AUTO) 388 K/uL (179-408); RED BLOOD CELL COUNT(AUTO) 2.95 MIL/uL (3.63-4.92); WHITE BLOOD COUNT (AUTO) 8.2 K/uL (3.8-11.8)
[2018-12-09 05:23] LABS: CARBON DIOXIDE 25 mmol/L (21-32); CHLORIDE 103 mmol/L (98-107); CREATININE 0.5 mg/dL (0.6-1.3); GLUCOSE 90 mg/dL (74-106); MAGNESIUM 1.8 mg/dL (1.8-2.4); PHOSPHOROUS 3.7 mg/dL (2.5-4.9); UREA NITROGEN, BLOOD 31 mg/dL (7-18)
[2018-12-09] MEDS: BACLOFEN 20 MG TABLET GT SCH ×3 (06:21→21:00)
[2018-12-09] MEDS: METRONIDAZOLE 500 MG TABLET GT SCH ×3 (06:21→21:00)
[2018-12-09] MEDS: VANCOMYCIN FOR PO/GT/NG USE GT SCH ×3 (06:21→17:19)
[2018-12-09] MEDS: ACIDOPHILUS/BULGARICUS CHEW TAB GT SCH ×3 (06:21→21:00)
[2018-12-09] MEDS: PANTOPRAZOLE ORAL SUSPENSION 40 MG SUSPDR.PKT GT SCH (06:37)
[2018-12-09] MEDS: LEVETIRACETAM 500 MG/5 ML LIQUID UDC GT SCH ×2 (08:19→20:51)
[2018-12-09] MEDS: DESMOPRESSIN 0.1 MG TABLET GT SCH ×2 (08:20→16:32)
[2018-12-09] MEDS: MIRALAX 17 GM POWD.PACK GT SCH (08:20)
[2018-12-09] MEDS: CEFEPIME HCL 1 G in IV DEXTROSE 5% 50 ML IV SCH ×2 (08:20→21:00)
[2018-12-09] MEDS: PROTEIN SUPPLEMENT (PROSTAT) 30 ML LIQUID GT SCH ×3 (08:22→16:33)
[2018-12-09] MEDS: Z GUARD REMEDY PASTE 57 GM TUBE TOP SCH ×2 (08:23→20:54)
[2018-12-09] MEDS: VITAMINS A AND D OINT TP SCH ×2 (08:23→20:55)
[2018-12-09] MEDS: NYSTATIN POWDER 15 GM BOTTLE TOP SCH ×2 (08:24→20:54)
[2018-12-09] MEDS: HYDROGEN PEROXIDE 3% 118 ML BOTTLE TOP SCH ×2 (08:24→20:53)
[2018-12-09] MEDS: HEPARIN SODIUM,PORCINE 5,000 UNITS/ML VIAL SQ SCH ×2 (08:30→20:53)
[2018-12-09] MEDS: VITAL AF 1.2 1,000 ML LIQUID GT PRN (10:05)
[2018-12-09] MEDS: THIAMINE HCL 100 MG TABLET GT SCH (20:51)
[2018-12-09] MEDS: CHOLECALCIFEROL 1,000 UNIT TABLET GT SCH (20:52)
[2018-12-09] MEDS: FOLIC ACID 1 MG TABLET GT SCH (20:52)
[2018-12-10] VITALS (24 sets, daily range): BP systolic 92–135; BP diastolic 53–85
[2018-12-10] MEDS: VANCOMYCIN FOR PO/GT/NG USE GT SCH ×4 (01:00→17:05)
[2018-12-10] MEDS: IV NORMAL SALINE 250 ML IV PRN (01:05)
[2018-12-10] MEDS: METRONIDAZOLE 500 MG TABLET GT SCH ×3 (05:01→21:41)
[2018-12-10] MEDS: BACLOFEN 20 MG TABLET GT SCH ×3 (05:01→21:41)
[2018-12-10] MEDS: ACIDOPHILUS/BULGARICUS CHEW TAB GT SCH ×3 (05:01→21:44)
[2018-12-10 05:11] LABS: BASOPHILS # (AUTO) 0.1 K/uL (0.0-8.0); BASOPHILS % (AUTO) 0.8 % (0.0-2.0); EOSINOPHILS # (AUTO) 0.1 K/uL (0.0-0.7); EOSINOPHILS % (AUTO) 1.2 % (0.0-7.0); HEMATOCRIT 24.6 % (31.2-41.9); HEMOGLOBIN 8.4 g/dL (10.9-14.3); LYMPHOCYTES % (AUTO) 26.1 % (20.5-51.5); MEAN CORPUSCULAR HEMOGLOBIN 30.3 uug (24.7-32.8); MEAN CORPUSCULAR HGB CONC 34 g/dL (32.3-35.6); MONOCYTES # (AUTO) 0.5 K/uL (2.0-10.0); MONOCYTES % (AUTO) 6.3 % (0.0-11.0); NEUTROPHILS # (AUTO) 4.9 K/uL (1.8-8.9); NEUTROPHILS % (AUTO) 65.6 % (38.5-71.5); PLATELET COUNT (AUTO) 330 K/uL (179-408); RED BLOOD CELL COUNT(AUTO) 2.76 MIL/uL (3.63-4.92); WHITE BLOOD COUNT (AUTO) 7.5 K/uL (3.8-11.8)
[2018-12-10 05:21] LABS: CARBON DIOXIDE 24 mmol/L (21-32); CHLORIDE 102 mmol/L (98-107); CREATININE 0.4 mg/dL (0.6-1.3); GLUCOSE 104 mg/dL (74-106); MAGNESIUM 1.7 mg/dL (1.8-2.4); PHOSPHOROUS 3.1 mg/dL (2.5-4.9); POTASSIUM 3.2 mmol/L (3.5-5.1); UREA NITROGEN, BLOOD 29 mg/dL (7-18)
[2018-12-10] MEDS: PANTOPRAZOLE ORAL SUSPENSION 40 MG SUSPDR.PKT GT SCH (06:35)
[2018-12-10] MEDS: DESMOPRESSIN 0.1 MG TABLET GT SCH ×2 (08:01→16:43)
[2018-12-10] MEDS: MIRALAX 17 GM POWD.PACK GT SCH (08:03)
[2018-12-10] MEDS: LEVETIRACETAM 500 MG/5 ML LIQUID UDC GT SCH ×2 (08:03→20:29)
[2018-12-10] MEDS: PROTEIN SUPPLEMENT (PROSTAT) 30 ML LIQUID GT SCH ×3 (08:08→16:43)
[2018-12-10] MEDS: Z GUARD REMEDY PASTE 57 GM TUBE TOP SCH ×2 (08:09→20:26)
[2018-12-10] MEDS: NYSTATIN POWDER 15 GM BOTTLE TOP SCH ×2 (08:09→20:29)
[2018-12-10] MEDS: HYDROGEN PEROXIDE 3% 118 ML BOTTLE TOP SCH ×2 (08:09→20:26)
[2018-12-10] MEDS: VITAMINS A AND D OINT TP SCH ×2 (08:10→20:26)
[2018-12-10] MEDS: CEFEPIME HCL 1 G in IV DEXTROSE 5% 50 ML IV SCH ×2 (08:11→20:25)
[2018-12-10] MEDS: HEPARIN SODIUM,PORCINE 5,000 UNITS/ML VIAL SQ SCH ×2 (08:12→20:30)
[2018-12-10] MEDS: VITAL AF 1.2 1,000 ML LIQUID GT PRN (11:29)
[2018-12-10] MEDS ORDERED: MAGNESIUM OXIDE 400 MG TABLET GT ONE (11:45)
[2018-12-10] MEDS ORDERED: POTASSIUM CHLORIDE 20 MEQ POWDER PACKET GT ONE (11:45)
[2018-12-10] MEDS: CHOLECALCIFEROL 1,000 UNIT TABLET GT SCH (20:28)
[2018-12-10] MEDS: FOLIC ACID 1 MG TABLET GT SCH (20:29)
[2018-12-10] MEDS: THIAMINE HCL 100 MG TABLET GT SCH (20:29)
[2018-12-11] VITALS (11 sets, daily range): BP systolic 110–137; BP diastolic 57–75
[2018-12-11] MEDS: VANCOMYCIN FOR PO/GT/NG USE GT SCH ×5 (00:47→23:00)
[2018-12-11] MEDS: IV NORMAL SALINE 250 ML IV PRN (02:41)
[2018-12-11] MEDS: METRONIDAZOLE 500 MG TABLET GT SCH ×3 (05:59→21:09)
[2018-12-11] MEDS: ACIDOPHILUS/BULGARICUS CHEW TAB GT SCH ×3 (05:59→21:09)
[2018-12-11] MEDS: BACLOFEN 20 MG TABLET GT SCH ×3 (06:00→21:09)
[2018-12-11] MEDS: PANTOPRAZOLE ORAL SUSPENSION 40 MG SUSPDR.PKT GT SCH (06:52)
[2018-12-11] MEDS: DESMOPRESSIN 0.1 MG TABLET GT SCH ×2 (08:07→17:16)
[2018-12-11] MEDS: LEVETIRACETAM 500 MG/5 ML LIQUID UDC GT SCH ×2 (08:07→20:10)
[2018-12-11] MEDS: PROTEIN SUPPLEMENT (PROSTAT) 30 ML LIQUID GT SCH ×3 (08:09→17:16)
[2018-12-11] MEDS: CEFEPIME HCL 1 G in IV DEXTROSE 5% 50 ML IV SCH ×2 (08:10→20:16)
[2018-12-11] MEDS: MIRALAX 17 GM POWD.PACK GT SCH ×2 (08:10→08:18)
[2018-12-11] MEDS: Z GUARD REMEDY PASTE 57 GM TUBE TOP SCH ×2 (08:14→20:15)
[2018-12-11] MEDS: NYSTATIN POWDER 15 GM BOTTLE TOP SCH ×2 (08:14→20:15)
[2018-12-11] MEDS: HEPARIN SODIUM,PORCINE 5,000 UNITS/ML VIAL SQ SCH ×2 (08:14→20:11)
[2018-12-11] MEDS: HYDROGEN PEROXIDE 3% 118 ML BOTTLE TOP SCH ×2 (08:14→20:16)
[2018-12-11] MEDS: VITAMINS A AND D OINT TP SCH ×2 (08:15→20:15)
[2018-12-11] MEDS: VITAL AF 1.2 1,000 ML LIQUID GT PRN (10:00)
[2018-12-11] MEDS: FOLIC ACID 1 MG TABLET GT SCH (20:09)
[2018-12-11] MEDS: THIAMINE HCL 100 MG TABLET GT SCH (20:10)
[2018-12-11] MEDS: CHOLECALCIFEROL 1,000 UNIT TABLET GT SCH (20:10)
[2018-12-12] VITALS (8 sets, daily range): BP systolic 102–117; BP diastolic 60–74
[2018-12-12] MEDS: ACIDOPHILUS/BULGARICUS CHEW TAB GT SCH ×3 (05:01→21:15)
[2018-12-12] MEDS: BACLOFEN 20 MG TABLET GT SCH ×3 (05:01→21:15)
[2018-12-12] MEDS: IV NORMAL SALINE 250 ML IV PRN (05:01)
[2018-12-12] MEDS: METRONIDAZOLE 500 MG TABLET GT SCH ×3 (05:01→21:15)
[2018-12-12] MEDS: VANCOMYCIN FOR PO/GT/NG USE GT SCH ×4 (05:03→23:59)
[2018-12-12 05:22] LABS: BASOPHILS % (AUTO) 0.7 % (0.0-2.0); EOSINOPHILS # (AUTO) 0.1 K/uL (0.0-0.7); EOSINOPHILS % (AUTO) 1.1 % (0.0-7.0); HEMATOCRIT 29.1 % (31.2-41.9); LYMPHOCYTES # (AUTO) 1.7 K/uL (20.0-40.0); LYMPHOCYTES % (AUTO) 28.8 % (20.5-51.5); MEAN CORPUSCULAR HEMOGLOBIN 30.9 uug (24.7-32.8); MEAN CORPUSCULAR HGB CONC 35 g/dL (32.3-35.6); MEAN CORPUSCULAR VOLUME 89.6 fL (75.5-95.3); MONOCYTES # (AUTO) 0.4 K/uL (2.0-10.0); MONOCYTES % (AUTO) 7.8 % (0.0-11.0); NEUTROPHILS # (AUTO) 3.5 K/uL (1.8-8.9); NEUTROPHILS % (AUTO) 61.6 % (38.5-71.5); PLATELET COUNT (AUTO) 309 K/uL (179-408); RED BLOOD CELL COUNT(AUTO) 3.25 MIL/uL (3.63-4.92); WHITE BLOOD COUNT (AUTO) 5.8 K/uL (3.8-11.8)
[2018-12-12 05:38] LABS: CARBON DIOXIDE 24 mmol/L (21-32); CHLORIDE 106 mmol/L (98-107); CREATININE 0.5 mg/dL (0.6-1.3); GLUCOSE 84 mg/dL (74-106); MAGNESIUM 1.9 mg/dL (1.8-2.4); PHOSPHOROUS 3.3 mg/dL (2.5-4.9); POTASSIUM 3.8 mmol/L (3.5-5.1); UREA NITROGEN, BLOOD 26 mg/dL (7-18)
[2018-12-12] MEDS: PANTOPRAZOLE ORAL SUSPENSION 40 MG SUSPDR.PKT GT SCH (06:28)
[2018-12-12] MEDS: MIRALAX 17 GM POWD.PACK GT SCH (08:11)
[2018-12-12] MEDS: DESMOPRESSIN 0.1 MG TABLET GT SCH ×2 (08:11→17:08)
[2018-12-12] MEDS: LEVETIRACETAM 500 MG/5 ML LIQUID UDC GT SCH ×2 (08:11→20:18)
[2018-12-12] MEDS: PROTEIN SUPPLEMENT (PROSTAT) 30 ML LIQUID GT SCH ×3 (08:13→17:08)
[2018-12-12] MEDS: NYSTATIN POWDER 15 GM BOTTLE TOP SCH ×2 (08:14→20:31)
[2018-12-12] MEDS: Z GUARD REMEDY PASTE 57 GM TUBE TOP SCH ×2 (08:15→20:19)
[2018-12-12] MEDS: HYDROGEN PEROXIDE 3% 118 ML BOTTLE TOP SCH ×2 (08:15→20:31)
[2018-12-12] MEDS: VITAMINS A AND D OINT TP SCH ×2 (08:15→20:32)
[2018-12-12] MEDS: HEPARIN SODIUM,PORCINE 5,000 UNITS/ML VIAL SQ SCH ×2 (08:23→20:35)
[2018-12-12] MEDS: CEFEPIME HCL 1 G in IV DEXTROSE 5% 50 ML IV SCH ×2 (08:30→20:18)
[2018-12-12] MEDS: CHOLECALCIFEROL 1,000 UNIT TABLET GT SCH (20:18)
[2018-12-12] MEDS: THIAMINE HCL 100 MG TABLET GT SCH (20:18)
[2018-12-12] MEDS: FOLIC ACID 1 MG TABLET GT SCH (20:18)
[2018-12-13] VITALS: BP 125/65
[2018-12-13] MEDS: ACIDOPHILUS/BULGARICUS CHEW TAB GT SCH ×3 (05:38→21:12)
[2018-12-13] MEDS: BACLOFEN 20 MG TABLET GT SCH ×3 (05:38→21:12)
[2018-12-13] MEDS: METRONIDAZOLE 500 MG TABLET GT SCH ×3 (05:38→21:11)
[2018-12-13] MEDS: VANCOMYCIN FOR PO/GT/NG USE GT SCH ×4 (05:38→23:29)
[2018-12-13] MEDS: PANTOPRAZOLE ORAL SUSPENSION 40 MG SUSPDR.PKT GT SCH (06:09)
[2018-12-13 06:17] VITALS: BP 108/60
[2018-12-13 08:08] VITALS: BP 143/65
[2018-12-13] MEDS: LEVETIRACETAM 500 MG/5 ML LIQUID UDC GT SCH ×2 (09:28→21:11)
[2018-12-13] MEDS: MIRALAX 17 GM POWD.PACK GT SCH (09:28)
[2018-12-13] MEDS: Z GUARD REMEDY PASTE 57 GM TUBE TOP SCH ×2 (09:29→21:38)
[2018-12-13] MEDS: DESMOPRESSIN 0.1 MG TABLET GT SCH ×2 (09:29→17:37)
[2018-12-13] MEDS: PROTEIN SUPPLEMENT (PROSTAT) 30 ML LIQUID GT SCH ×3 (09:29→17:37)
[2018-12-13] MEDS: VITAMINS A AND D OINT TP SCH ×2 (09:30→21:37)
[2018-12-13] MEDS: NYSTATIN POWDER 15 GM BOTTLE TOP SCH ×2 (09:30→21:39)
[2018-12-13] MEDS: HYDROGEN PEROXIDE 3% 118 ML BOTTLE TOP SCH ×2 (09:31→21:40)
[2018-12-13] MEDS: CEFEPIME HCL 1 G in IV DEXTROSE 5% 50 ML IV SCH ×2 (09:31→20:51)
[2018-12-13] MEDS: HEPARIN SODIUM,PORCINE 5,000 UNITS/ML VIAL SQ SCH ×2 (09:34→20:56)
[2018-12-13] MEDS: VITAL AF 1.2 1,000 ML LIQUID GT PRN (11:09)
[2018-12-13 11:58] VITALS: BP 109/63
[2018-12-13 16:12] VITALS: BP 114/62
[2018-12-13 20:00] VITALS: BP 105/65
[2018-12-13] MEDS: CHOLECALCIFEROL 1,000 UNIT TABLET GT SCH (20:51)
[2018-12-13] MEDS: FOLIC ACID 1 MG TABLET GT SCH (20:52)
[2018-12-13] MEDS: THIAMINE HCL 100 MG TABLET GT SCH (21:11)
[2018-12-14] VITALS (7 sets, daily range): BP systolic 101–125; BP diastolic 52–68
[2018-12-14] MEDS: ACIDOPHILUS/BULGARICUS CHEW TAB GT SCH ×2 (06:27→13:23)
[2018-12-14] MEDS: VANCOMYCIN FOR PO/GT/NG USE GT SCH ×3 (06:27→16:51)
[2018-12-14] MEDS: METRONIDAZOLE 500 MG TABLET GT SCH ×2 (06:27→13:23)
[2018-12-14] MEDS: PANTOPRAZOLE ORAL SUSPENSION 40 MG SUSPDR.PKT GT SCH (06:30)
[2018-12-14] MEDS: BACLOFEN 20 MG TABLET GT SCH ×2 (06:31→13:23)
[2018-12-14] MEDS: DESMOPRESSIN 0.1 MG TABLET GT SCH ×2 (08:31→16:51)
[2018-12-14] MEDS: MIRALAX 17 GM POWD.PACK GT SCH (08:31)
[2018-12-14] MEDS: LEVETIRACETAM 500 MG/5 ML LIQUID UDC GT SCH (08:31)
[2018-12-14] MEDS: PROTEIN SUPPLEMENT (PROSTAT) 30 ML LIQUID GT SCH ×3 (08:31→16:52)
[2018-12-14] MEDS: HYDROGEN PEROXIDE 3% 118 ML BOTTLE TOP SCH (08:32)
[2018-12-14] MEDS: POLYVINYL ALCOHOL OPHT DROPS 15 ML BOTTLE EACHEYE PRN (08:33)
[2018-12-14] MEDS: Z GUARD REMEDY PASTE 57 GM TUBE TOP SCH (08:33)
[2018-12-14] MEDS: VITAMINS A AND D OINT TP SCH (08:33)
[2018-12-14] MEDS: HEPARIN SODIUM,PORCINE 5,000 UNITS/ML VIAL SQ SCH (08:35)
[2018-12-14] MEDS: NYSTATIN POWDER 15 GM BOTTLE TOP SCH (08:37)
[2018-12-14] MEDS: CEFEPIME HCL 1 G in IV DEXTROSE 5% 50 ML IV SCH (09:27)
[2018-12-14] MEDS: VITAL AF 1.2 1,000 ML LIQUID GT PRN (10:00)
[2018-12-14] MEDS ORDERED: NYST15PO4 TOP (17:33)
[2018-12-14] MEDS ORDERED: LEVE100S GT (17:33)
[2018-12-14] MEDS ORDERED: DESM0.1T4 GT (17:33)
[2018-12-14] MEDS ORDERED: METR-147 GT (17:33)
[2018-12-14] MEDS ORDERED: VANC500V GT (17:33)
[2018-12-14] MEDS ORDERED: CEFE1PIG3 IV (17:33)
[2018-12-14] MEDS ORDERED: NUT.237L65 GT (17:33)
== END 2018-12-14 18:25 | DRG 720 ==
LOC: ER 20:25 → EDSTATUS 20:46 → CCU 20:48 → TELE-TD3 12-12 10:38
PROVIDERS: ADMIT Internal Medicine; ATTEND Internal Medicine
PROC: 5A1955Z Respiratory Ventilation, Greater than 96 Consecutive Hours (ICD-10-PCS; principal; 2018-11-25)
PROC: 30233N1 Transfusion of Nonautologous Red Blood Cells into Peripheral Vein, Percutaneous Approach (ICD-10-PCS; 2018-11-29)
PROC: 0W9930Z Drainage of Right Pleural Cavity with Drainage Device, Percutaneous Approach (ICD-10-PCS; 2018-11-29)
PROC: B548ZZA Ultrasonography of Superior Vena Cava, Guidance (ICD-10-PCS; 2018-11-30)
PROC: 02HV33Z Insertion of Infusion Device into Superior Vena Cava, Percutaneous Approach (ICD-10-PCS; 2018-11-30)
PROC: 0W9930Z Drainage of Right Pleural Cavity with Drainage Device, Percutaneous Approach (ICD-10-PCS; 2018-11-30)
PROC: 0B9K3ZX Drainage of Right Lung, Percutaneous Approach, Diagnostic (ICD-10-PCS; 2018-12-02)
DX: A41.9 Sepsis, unspecified organism (principal); J96.21 Acute and chronic respiratory failure with hypoxia; J86.9 Pyothorax without fistula; J69.0 Pneumonitis due to inhalation of food and vomit; E43 Unspecified severe protein-calorie malnutrition; G93.41 Metabolic encephalopathy; A04.72 Enterocolitis due to Clostridium difficile, not specified as recurrent; J94.8 Other specified pleural conditions; Z99.11 Dependence on respirator [ventilator] status; E23.2 Diabetes insipidus; J96.11 Chronic respiratory failure with hypoxia; S06.5X9S Traumatic subdural hemorrhage with loss of consciousness of unspecified duration, sequela; V49.9XXS Car occupant (driver) (passenger) injured in unspecified traffic accident, sequela; R13.10 Dysphagia, unspecified; R40.2430 Glasgow coma scale score 3-8, unspecified time; Z93.1 Gastrostomy status; G40.909 Epilepsy, unspecified, not intractable, without status epilepticus; Z68.23 Body mass index [BMI] 23.0-23.9, adult; R53.2 Functional quadriplegia; Z87.01 Personal history of pneumonia (recurrent); S06.6X9S Traumatic subarachnoid hemorrhage with loss of consciousness of unspecified duration, sequela; S02.11 Fracture of occiput; V89.2XXS Person injured in unspecified motor-vehicle accident, traffic, sequela; D68.59 Other primary thrombophilia; J98.11 Atelectasis; D64.9 Anemia, unspecified; I31.3 Pericardial effusion (noninflammatory); T83.32XD Displacement of intrauterine contraceptive device, subsequent encounter; Y76.2 Prosthetic and other implants, materials and accessory obstetric and gynecological devices associated with adverse incidents; Z86.19 Personal history of other infectious and parasitic diseases; J90 Pleural effusion, not elsewhere classified; J81.1 Chronic pulmonary edema; E22.2 Syndrome of inappropriate secretion of antidiuretic hormone; Z93.0 Tracheostomy status
CPT/HCPCS: 36415; 36569; 36600; 70030-TC; 71045; 71260; 74018; 82803; 83550; 83605; 83735; 84100; 84300; 85025; 85610; 86708; 86850; 86900; 86901; 86920; 87070; 87075; 87077; 87205; 94002; 94003; A4217; G0378; J0692; J1644; J2543; J2597; J2997; J3370; J3480; J3490; J7040; J7042; J7050; J7060; J7070; P9016-BL; P9021; P9047; Q9967

== ENCOUNTER 2018-12-14 19:14 | Inpatient (IN) | payer MEDICAID ==
[2018-12-14 18:30] VITALS: BP 155/55
--- NOTE | 2018-12-14 18:30 | NUR ---
PT. ON CONTACT ISOLATION FOR C. DIFF.
--- NOTE | 2018-12-14 18:30 | NUR ---
PT. WAS ADMITTED AT THIS TIME WITH RT PRESENT VENT DEPENDENT AND SETTINGS WELL TOLERATED,V/S FOLLOW:TEMP.95F,HR 43X',B/P 155/55,,RR 12X',P/A 0/10.VENT SETTINGS FOLLOW:SIMV 12,TV 500,PRESSURE SUPPORT 10,FIO2 28%,PEEP 5.SKIN DRY AND WARM TO TOUCH ,REPORT OBTAINED FROM [place] AND [facility]ER,THEY STATED THAT DR. CLARK REMOVE THE LAST CHEST TUBE TODAY AND HAD NO MORE DRAINAGE.OBSERVED SKIN DRY AND WARM TO TOUCH ,PALE ,RESPONSIVE TO PAIN AND WITH EYES OPEN.ENDORSED TO NOC. SHIFT CH. NURSE TO CONTINUE CARE.
[2018-12-14 19:00] VITALS: BP 108/61
[~2018-12-14 19:14] MED LIST changes: -ACET-2154 GT; +ACET650S26 GT; -BACL10TA GT; +BACL20TA GT; -BISA-79 RC; +BISA10SU61 RC; +CEFE1PIG3 IV; +DESM0.1T4 GT; -HEPA100D33 SQ; +HEPA500034 SQ; +LEVE100S GT; -LEVE500T20 GT; +METR-147 GT; +NUT.237L65 GT; +NYST15PO4 TOP; +VANC500V GT
--- NOTE | 2018-12-14 20:05 | NUR ---
Patient received on HT-50 settings SIMV 12, VT 500, PSV 10, PEEP +5 and FIO2-28%. No resp. distress noted. Shiley 6 DCT is patent and secure; Backup Shiley 6 DCT and resusc. bag are both at bedside. Pt to be monitored throughout the shift and PRN SX. HT-50 alarm parameters have been checked and remain audible.
--- NOTE | 2018-12-14 20:31 | NUR ---
IN COMING . NURSE AWARE THAT CASE MANAGER SPECIALIST FOR DR. WORTHINGTON ITS DR. NEGRETE AND FOR YAZ ITS DR. ANDREW BELL.
--- NOTE | 2018-12-14 21:30 | NUR ---
CALLED REGRADING FOR CALCIFICATION FOR RE-ADMISSION.
[2018-12-14 21:31] VITALS: BP 106/59
--- NOTE | 2018-12-14 21:35 | NUR ---
MOTHERS HELPER WAS CALLED BACK WITH NEW ORDERED TO CONTINUE CURRENT MEDICATIONS AND ALL TX.
--- NOTE | 2018-12-14 22:00 | NUR ---
CEFEPIME1 GM WAS GIVEN VIA IVPB ALL MEDS WAS GIVEN VIA GT ORDERED.
--- NOTE | 2018-12-14 22:30 | NUR ---
PT ON TRACH WITH VENT NO SOB DISTRESS ON PICC LINE 3 LUMENS ON (R) UPPER ARM .LATERAL (R) CHEST COVER WITH PETROLATUM DRESSING COVER WITH DRY DRESSING.PT HAS RASH FOR BOTH UNDER ARMS WITH NEW ORDER FOR TX.(R)&(L) GROIN AREA HAS RASH & REDNESS WITH TX ON ATB IVPB CEFEPIME 1GM Q12HRS FOR SEPSIS . ON METRONIDAZOLE 500MG VIA GT Q8 HRS FOR C-DIFF ON VANCOMYCIN 250 MGQ 6 HRS FOR C- DIFF AND ON CONTACT ISOLATION FOR C- DIFF WITH GOOG HAND WASHING KEEP CLEAN AND DRY CJ AREA.
[2018-12-15] VITALS: BP 119/50
[2018-12-15] MEDS ORDERED: ACETAMINOPHEN 650 MG/20.3 ML LIQUID UDC GT PRN ×2 (02:00)
[2018-12-15] MEDS ORDERED: ALBUTEROL SULFATE 2.5 MG/3 ML NEBU NEB PRN (02:00)
[2018-12-15] MEDS ORDERED: VITAMINS A AND D OINT TP PRN (02:00)
[2018-12-15] MEDS ORDERED: IPRATROPIUM BROMIDE 0.5 MG/2.5 ML NEBU NEB PRN (02:00)
[2018-12-15] MEDS ORDERED: POLYVINYL ALCOHOL OPHT DROPS 15 ML BOTTLE EACHEYE PRN (02:00)
[2018-12-15] MEDS ORDERED: ZINC OXIDE OINT 30 GM TUBE TOP PRN (02:00)
[2018-12-15 03:39] VITALS: BP 124/59
[2018-12-15] MEDS ORDERED: METRONIDAZOLE 500 MG TABLET GT SCH (06:00)
[2018-12-15] MEDS ORDERED: BACLOFEN 20 MG TABLET GT SCH (06:00)
[2018-12-15] MEDS ORDERED: VANCOMYCIN FOR PO/GT/NG USE GT SCH ×2 (06:00→12:00)
[2018-12-15] MEDS ORDERED: HYDROGEN PEROXIDE 3% 118 ML BOTTLE TP PRN (07:45)
[2018-12-15] MEDS ORDERED: ACETAMINOPHEN 650 MG/20 ML UDC- SA PATIENTS-FEVER ONLY GT PRN (07:45)
[2018-12-15] MEDS ORDERED: LORAZEPAM 0.5 MG TABLET GT PRN (08:00)
[2018-12-15] MEDS ORDERED: COD LIVER OIL/ZINC OXIDE OINT 113 GM TUBE TP PRN (08:30)
[2018-12-15] MEDS ORDERED: CULTURELLE CAPSULE GT SCH (09:00)
[2018-12-15] MEDS ORDERED: HYDROGEN PEROXIDE 3% 118 ML BOTTLE TOP SCH (09:00)
[2018-12-15] MEDS: NEOMY/BACITRA/POLYMYXIN B OINT UD PACKET TP SCH ×2 (09:00→21:00)
[2018-12-15] MEDS: NYSTATIN POWDER 15 GM BOTTLE TOP SCH ×2 (09:00→21:00)
[2018-12-15] MEDS ORDERED: CALMOSEPTINE 113 GM OINTMENT TOP SCH (09:00)
[2018-12-15] MEDS: HYDROGEN PEROXIDE 3% 118 ML BOTTLE TP SCH ×2 (09:00→21:00)
[2018-12-15] MEDS ORDERED: THIAMINE HCL 100 MG TABLET GT SCH (09:00)
[2018-12-15] MEDS: NYSTATIN POWDER 15 GM BOTTLE TP SCH ×2 (09:00→21:00)
[2018-12-15] MEDS: COD LIVER OIL/ZINC OXIDE OINT 113 GM TUBE TP SCH ×2 (09:00→21:00)
[2018-12-15] MEDS ORDERED: MISCELLANEOUS MED GT SCH (09:00)
[2018-12-15] MEDS ORDERED: HEPARIN SODIUM,PORCINE 10,000 UNITS/10 ML VIAL INJ SCH (09:00)
[2018-12-15] MEDS ORDERED: COD LIVER OIL/ZINC OXIDE OINT 113 GM TUBE TP SCH (09:00)
[2018-12-15] MEDS ORDERED: CEFEPIME HCL 1 G VIAL IV SCH (09:00)
[2018-12-15] MEDS ORDERED: LEVETIRACETAM 250 MG TABLET GT SCH (09:00)
[2018-12-15 10:53] VITALS: BP 99/59
[2018-12-15] MEDS ORDERED: DESMOPRESSIN 0.1 MG TABLET GT ONE (11:00)
[2018-12-15] MEDS ORDERED: LEVETIRACETAM 500 MG/5 ML LIQUID UDC GT ONE (12:00)
[2018-12-15] MEDS ORDERED: HEPARIN SODIUM,PORCINE 5,000 UNITS/ML VIAL SQ ONE (12:00)
[2018-12-15] MEDS ORDERED: CEFEPIME HCL 1 G in IV DEXTROSE 5% 50 ML IV ONE (12:00)
[2018-12-15] MEDS ORDERED: HEPARIN SODIUM,PORCINE/PF 100 UNIT/ML, 5ML SYR IV PRN (13:45)
[2018-12-15] MEDS ORDERED: NORMAL SALINE FLUSH 10 ML DISP.SYRIN IV PRN (13:45)
[2018-12-15] MEDS ORDERED: METRONIDAZOLE 500 MG TABLET GT ONE (14:00)
[2018-12-15] MEDS ORDERED: VANCOMYCIN FOR PO/GT/NG USE GT ONE (14:00)
[2018-12-15] MEDS ORDERED: BACLOFEN 20 MG TABLET GT ONE (14:00)
--- NOTE | 2018-12-15 16:34 | NUR ---
12:05pm: SW met with patient's mother Anamaria and completed patient's psychosocial assessment. SW also reviewed all admission paperwork with patient's mother, and obtained her signature on all admission forms. The paperwork included: Conditions of Admission, Patient Rights Acknowledgement, Documentation of Preferred Intensity of Care, Voluntary Prior Express Consent Form, and the [facility] Agreement. SW offered patient's mother copies of the signed forms, but she declined. SW offered patient a copy of the Patient's Rights, but patient's mother declined stating that she has a copy from the previous admission.
[2018-12-15] MEDS: VANCOMYCIN 250 MG GT SCH (18:17)
--- NOTE | 2018-12-15 19:12 | NUR ---
Continue on ivatb,no adverse reaction noted,iv site intact,no redness noted.
[2018-12-15] MEDS: IPRATROPIUM BROMIDE 0.5 MG/2.5 ML NEBU NEB SCH ×2 (20:26→23:30)
[2018-12-15] MEDS: ALBUTEROL SULFATE 2.5 MG/3 ML NEBU NEB SCH ×2 (20:26→23:30)
--- NOTE | 2018-12-15 20:26 | NUR ---
PT RECEIVED ON HT-50 VENT. CURRENT VENT SETTINGS ARE SIMV 12, VT 500, PS 10, PEEP +5, FIO2 28%. NO CHANGES MADE AT THIS TIME. YUAN 6DCT TRACH IS PATENT AND SECURED VIA TRACH TIES. VENT ALARMS CHECKED, ARE ON AND FUNCTIONING PROPERLY. NEW ORDER ACKNOWLEDGED FOR Q4 NEBULIZED TX. MEDICATIONS ARE NOT AVAILABLE AT THIS TIME. HME CHANGED NEEDED. SUCTIONED SMALL AMOUNT OF THICK, PALE SECRETIONS. AMBU BAG AND BACK UP TRACH ARE AT BEDSIDE. VENT IS PLUGGED INTO RED EMERGENCY OUTLET. WILL CONTINUE TO MONITOR THROUGHOUT SHIFT.
[2018-12-15 20:36] VITALS: BP 100/55
[2018-12-15] MEDS: NORMAL SALINE FLUSH 10 ML DISP.SYRIN IV SCH (21:00)
[2018-12-15] MEDS ORDERED: HYDROGEN PEROXIDE 3% 118 ML BOTTLE MC SCH (21:00)
[2018-12-15] MEDS: FOLIC ACID 1 MG TABLET GT SCH (21:00)
[2018-12-15] MEDS: DESMOPRESSIN 0.1 MG TABLET GT SCH (21:00)
[2018-12-15] MEDS: CHOLECALCIFEROL 1,000 UNIT TABLET GT SCH (21:00)
[2018-12-15] MEDS: ACIDOPHILUS/BULGARICUS CHEW TAB GT SCH (21:00)
[2018-12-15] MEDS: HEPARIN SODIUM,PORCINE 5,000 UNITS/ML VIAL SQ SCH (21:00)
[2018-12-15] MEDS: LEVETIRACETAM 500 MG/5 ML LIQUID UDC GT SCH (21:00)
[2018-12-15] MEDS: THIAMINE HCL 100 MG TABLET GT SCH (21:00)
[2018-12-15] MEDS: CEFEPIME HCL 1 G in IV DEXTROSE 5% 50 ML IV SCH (21:40)
[2018-12-15] MEDS: METRONIDAZOLE 500 MG TABLET GT SCH (22:12)
[2018-12-15] MEDS: BACLOFEN 20 MG TABLET GT SCH (22:12)
[2018-12-15] MEDS: VITAL AF 1.2 1,000 ML LIQUID GT PRN (22:30)
[2018-12-15 23:50] VITALS: BP 108/56
[2018-12-16] MEDS ORDERED: VANCOMYCIN FOR PO/GT/NG USE GT SCH
--- NOTE | 2018-12-16 | NUR ---
Afebrile, on vancomycin and Flagyl via GT for C-diff in the stool, On Maxepime IV for sepsis, no adverse reactions noted. KILEY PICC is intact and no signs of complications noted. Old chest tube site, clean and a pressure dressing noted on right armpit, no signs of infection noted, kept patient clean and comfortable.
[2018-12-16] MEDS: IPRATROPIUM BROMIDE 0.5 MG/2.5 ML NEBU NEB SCH ×6 (03:26→22:35)
[2018-12-16] MEDS: ALBUTEROL SULFATE 2.5 MG/3 ML NEBU NEB SCH ×6 (03:26→22:35)
[2018-12-16] MEDS: VANCOMYCIN 250 MG GT SCH ×4 (05:01→18:34)
[2018-12-16] MEDS: METRONIDAZOLE 500 MG TABLET GT SCH ×3 (05:01→21:23)
[2018-12-16] MEDS: BACLOFEN 20 MG TABLET GT SCH ×3 (05:01→21:23)
[2018-12-16] MEDS: OMEPRAZOLE 20 MG CAPSULE.DR GT SCH (05:02)
[2018-12-16 07:00] VITALS: BP 107/61
--- NOTE | 2018-12-16 07:00 | NUR ---
Noted patient with no urine output for at least 7 hours, paged Dr. Anjel Welch (sap treasury consultant), bladder scan done and obtained 500ml residual, straight cath and obtained 400 ml yellow urine output, abdomen now soft and non-distended, no signs of any respiratory distress , still on IV antibiotic for sepsis, no adverse reactions noted,kept clean and comfortable
--- NOTE | 2018-12-16 07:59 | NUR ---
Patient received laying in bed, semi-Keenan's, unable to communicate.. Continuous mechanical ventilation, vent: HT-50, settings: SIMV 12, Vt 500, PS 10, PEEP +5, FiO2 28%.. No respiratory distress noted.. Narda [address] and secure.. Back up trach / BVM at bedside.. Vent alarms on / audible / functioning normally at this time.. Will continue to monitor...
[2018-12-16] MEDS: ACIDOPHILUS/BULGARICUS CHEW TAB GT SCH ×2 (08:18→21:04)
[2018-12-16] MEDS: DESMOPRESSIN 0.1 MG TABLET GT SCH ×2 (08:18→21:04)
[2018-12-16] MEDS: LEVETIRACETAM 500 MG/5 ML LIQUID UDC GT SCH ×2 (08:29→21:04)
[2018-12-16] MEDS: NYSTATIN POWDER 15 GM BOTTLE TOP SCH ×2 (08:30→21:06)
[2018-12-16] MEDS: COD LIVER OIL/ZINC OXIDE OINT 113 GM TUBE TP SCH ×2 (08:30→21:06)
[2018-12-16] MEDS: HEPARIN SODIUM,PORCINE 5,000 UNITS/ML VIAL SQ SCH ×2 (08:30→21:06)
[2018-12-16] MEDS: NYSTATIN POWDER 15 GM BOTTLE TP SCH ×2 (08:31→21:06)
[2018-12-16] MEDS: NEOMY/BACITRA/POLYMYXIN B OINT UD PACKET TP SCH ×2 (08:31→21:06)
[2018-12-16] MEDS: HYDROGEN PEROXIDE 3% 118 ML BOTTLE TP SCH ×2 (08:31→21:06)
[2018-12-16] MEDS: CEFEPIME HCL 1 G in IV DEXTROSE 5% 50 ML IV SCH ×2 (09:01→21:00)
[2018-12-16] MEDS: NORMAL SALINE FLUSH 10 ML DISP.SYRIN IV SCH ×2 (09:01→21:00)
[2018-12-16 10:39] VITALS: BP 119/70
[2018-12-16 14:00] VITALS: BP 102/70
[2018-12-16 18:30] VITALS: BP 94/55
[2018-12-16 20:21] VITALS: BP 106/61
[2018-12-16] MEDS: FOLIC ACID 1 MG TABLET GT SCH (21:04)
[2018-12-16] MEDS: THIAMINE HCL 100 MG TABLET GT SCH (21:04)
[2018-12-16] MEDS: CHOLECALCIFEROL 1,000 UNIT TABLET GT SCH (21:05)
[2018-12-16] MEDS: VITAL AF 1.2 1,000 ML LIQUID GT PRN (21:23)
--- NOTE | 2018-12-17 00:34 | NUR ---
Still on Vancomycin and Flagyl via Gt for C-diff in the stool, no adverse reactions noted, no loose stools noted at this time. Fluids given as ordered, KILEY PICC is intact and no signs of complications. On contact isolation precaution for c-diff in the stool, turned and repositioned, kept clean and comfortable.
[2018-12-17] MEDS: ALBUTEROL SULFATE 2.5 MG/3 ML NEBU NEB SCH ×6 (02:35→23:50)
[2018-12-17] MEDS: IPRATROPIUM BROMIDE 0.5 MG/2.5 ML NEBU NEB SCH ×6 (02:35→23:50)
[2018-12-17] MEDS: OMEPRAZOLE 20 MG CAPSULE.DR GT SCH (06:18)
[2018-12-17] MEDS: BACLOFEN 20 MG TABLET GT SCH ×3 (06:18→21:07)
[2018-12-17] MEDS: METRONIDAZOLE 500 MG TABLET GT SCH ×3 (06:18→21:07)
[2018-12-17] MEDS: VANCOMYCIN 250 MG GT SCH ×4 (06:18→17:15)
--- NOTE | 2018-12-17 07:27 | NUR ---
PT RECEIVED ON HT 50 VENT TOLERATING CURRENT VENT SETTINGS FINE WITH NO DISTRESS. TRACH SECURED AND INTACT. AIRWAY PATENT. VENT ALARMS SET AND AUDIBLE. VENT PLUGGED IN RED OUTLET.
[2018-12-17 08:03] VITALS: BP 96/60
[2018-12-17] MEDS: DESMOPRESSIN 0.1 MG TABLET GT SCH ×2 (08:24→21:05)
[2018-12-17] MEDS: LEVETIRACETAM 500 MG/5 ML LIQUID UDC GT SCH ×2 (08:24→21:06)
[2018-12-17] MEDS: ACIDOPHILUS/BULGARICUS CHEW TAB GT SCH ×2 (08:24→21:05)
[2018-12-17] MEDS: NYSTATIN POWDER 15 GM BOTTLE TP SCH ×2 (08:25→21:07)
[2018-12-17] MEDS: COD LIVER OIL/ZINC OXIDE OINT 113 GM TUBE TP SCH ×2 (08:25→21:07)
[2018-12-17] MEDS: HYDROGEN PEROXIDE 3% 118 ML BOTTLE TP SCH ×2 (08:25→21:07)
[2018-12-17] MEDS: NEOMY/BACITRA/POLYMYXIN B OINT UD PACKET TP SCH ×2 (08:25→21:07)
[2018-12-17] MEDS: NYSTATIN POWDER 15 GM BOTTLE TOP SCH ×2 (08:25→21:07)
[2018-12-17] MEDS: CEFEPIME HCL 1 G in IV DEXTROSE 5% 50 ML IV SCH ×2 (08:25→21:02)
[2018-12-17] MEDS: NORMAL SALINE FLUSH 10 ML DISP.SYRIN IV SCH ×2 (08:25→21:00)
[2018-12-17] MEDS: HEPARIN SODIUM,PORCINE 5,000 UNITS/ML VIAL SQ SCH ×2 (08:29→21:00)
--- NOTE | 2018-12-17 12:00 | NUR ---
patient had times 3 post void residuals, inserted bhatt cath 16x10, draining well with clear yellow urine, no sediments noted. will continue to monitor.
--- NOTE | 2018-12-17 16:35 | NUR ---
Pharmacy Initial Review for re-admission 12/14/18 Note: Patient was transferred from subacute floor to CCU 11/25-12/14 d/t recurrent fevers and subsequently found with asp PNA with empyema resulting in chest tube placement and drainage. Pt also found with c. diff. Pt was stabilized, treated, and transferred back on abx cefepime IV, vanco po, flagyl for x4 more weeks per ID. VS: Temp 97.1 BP 97/62 HR 61 LABS: (from 12/12/18) Wbc 5.8H/H /29.1Plt 309 Na 140K 3.8Cl 106CO2 24BUN/Scr 26/0.5 BS 84Ca 8.9 MEDICATION USE REVIEWED: > Pt not on any anti-psych medications > Pt continues Keppra 250mg q12h since 11/09/18; CrCl >100ml/min, renal function ok for current dose. No seizure episodes noted. > Pt on Heparin 5000units q12h for DVT Prophylaxis. No bleeding noted; last plt 309 > Pt now on DDAVP 0.05mg GT q12h for diabetes insipidus adjusted as of 11/29/18 while in CCU PRN MED USAGE: (Since readmit) Tylenol for pain/temp used x0 Artificial Tears used x0 Bisacodyl Supp used x5 NEW ORDERS NOTED: > Pt continues on cefepime 1gm q12h, flagyl 500mg GT q8h, vanco 250mg GT q6h until 01/11 per ID (asp PNA/empyema, c diff continued tx) > Pt ddavp was increased 0.05mg daily to q12h 11/29 while in CCU > Pt ritalin trial per neurology d/c'd while in CCU with no continuation after transfer. > Continued on baclofen 20mg q8hr as before transfer to CCU with no issues Rx reviewed all medications upon transfer back to subacute. Rec for d/c of ativan prn and culturelle at time as was not on transfer orders per MD. All meds appropriately dosed with renal function, vitals ok with changes in doses noted (please see above). No further recs at this time, will continue to monitor.
[2018-12-17 20:40] VITALS: BP 112/64
[2018-12-17] MEDS: FOLIC ACID 1 MG TABLET GT SCH (21:06)
[2018-12-17] MEDS: CHOLECALCIFEROL 1,000 UNIT TABLET GT SCH (21:07)
[2018-12-17] MEDS: THIAMINE HCL 100 MG TABLET GT SCH (21:07)
--- NOTE | 2018-12-18 00:03 | NUR ---
PT ON CONT HT 50 VENT WITH SHILEY # [address] AND SECURED, WITH SAME CURRENT VENT SETTINGS, PT DOES ASSIST AT TIMES, WITH GOOD COUGH EFFORT, SUCTIONED LIGHT PALE YELL TINGE SECRETIONS, NEB INLINE Q4 NEB WITH ALBUTEROL/ ATROVENT TOLL WELL, ALL VENT ALARMS GOOD, NO VENTCHANGES MADE, PT STABLE, CHECK CUFF, CHANGE HME.Neel PACHECO RCP Addendum: 12/18/18 at 0005 by BESS PACHECO RT Amended: Links added.
[2018-12-18] MEDS: VANCOMYCIN 250 MG GT SCH ×4 (00:51→18:06)
[2018-12-18] MEDS: IPRATROPIUM BROMIDE 0.5 MG/2.5 ML NEBU NEB SCH ×6 (03:25→23:04)
[2018-12-18] MEDS: ALBUTEROL SULFATE 2.5 MG/3 ML NEBU NEB SCH ×6 (03:25→23:04)
[2018-12-18] MEDS: VITAL AF 1.2 1,000 ML LIQUID GT PRN (03:48)
--- NOTE | 2018-12-18 05:50 | NUR ---
continue on vancomycin and flagyle via g-tube for c.diff., cefepime iv for sepsis, no adverse reaction noted,afebrile.
[2018-12-18] MEDS: BACLOFEN 20 MG TABLET GT SCH ×3 (06:25→22:01)
[2018-12-18] MEDS: METRONIDAZOLE 500 MG TABLET GT SCH ×3 (06:25→22:01)
[2018-12-18] MEDS: OMEPRAZOLE 20 MG CAPSULE.DR GT SCH (06:25)
--- NOTE | 2018-12-18 07:40 | NUR ---
Pt received in semi saldana position, obtunded, unable to communicate, and on continuous mechanical ventilation via Shiley 6 DCT trach. Pt is on [place] HT-50 ventilator with ordered settings of SIMV-12, VT-500, PEEP+5, PS-10, FIO2-28% 2LPM. Tolerating vent settings well. SpO2-99% Trach is patent and secured. Minimal occluding volume technique used to assess cuff inflation. In-line nebulizer treatments given as ordered, Q4 with Albuterol/Atrovent. Treatments tolerated well, with no adverse reactions noted. Sxn'd and lavaged as needed. Suctioned small amounts of thick pale yellowish secretions. HME changed. PPE used. No signs or symptoms of respiratory distress. Ventilator alarm parameters checked, on and audible. Vent plugged into red emergency outlet. Bag/valve/mask and backup trach at bedside. Will continue to monitor.
[2018-12-18 09:00] VITALS: BP 92/50
[2018-12-18] MEDS: NORMAL SALINE FLUSH 10 ML DISP.SYRIN IV SCH ×2 (09:00→21:12)
[2018-12-18] MEDS: CEFEPIME HCL 1 G in IV DEXTROSE 5% 50 ML IV SCH ×2 (09:00→21:11)
[2018-12-18] MEDS: DESMOPRESSIN 0.1 MG TABLET GT SCH ×2 (09:37→20:50)
[2018-12-18] MEDS: ACIDOPHILUS/BULGARICUS CHEW TAB GT SCH ×2 (09:38→20:50)
[2018-12-18] MEDS: LEVETIRACETAM 500 MG/5 ML LIQUID UDC GT SCH ×2 (09:39→20:50)
[2018-12-18] MEDS: HEPARIN SODIUM,PORCINE 5,000 UNITS/ML VIAL SQ SCH ×2 (09:42→21:00)
[2018-12-18] MEDS: COD LIVER OIL/ZINC OXIDE OINT 113 GM TUBE TP SCH ×2 (09:43→20:51)
[2018-12-18] MEDS: NYSTATIN POWDER 15 GM BOTTLE TOP SCH ×2 (09:43→20:51)
[2018-12-18] MEDS: NEOMY/BACITRA/POLYMYXIN B OINT UD PACKET TP SCH ×2 (09:44→20:52)
[2018-12-18] MEDS: NYSTATIN POWDER 15 GM BOTTLE TP SCH ×2 (09:44→20:51)
[2018-12-18] MEDS: HYDROGEN PEROXIDE 3% 118 ML BOTTLE TP SCH ×2 (09:44→20:51)
[2018-12-18 20:13] VITALS: BP 109/55
[2018-12-18] MEDS: THIAMINE HCL 100 MG TABLET GT SCH (20:50)
[2018-12-18] MEDS: FOLIC ACID 1 MG TABLET GT SCH (20:50)
[2018-12-18] MEDS: CHOLECALCIFEROL 1,000 UNIT TABLET GT SCH (20:50)
--- NOTE | 2018-12-18 22:48 | NUR ---
continue on vancomycin and flagyl via g-tube for c.diff., cefepime iv for sepsis, no adverse reaction noted, afebrile.
[2018-12-19] MEDS: VITAL AF 1.2 1,000 ML LIQUID GT PRN (01:59)
[2018-12-19 02:00] VITALS: BP 110/60
[2018-12-19] MEDS: ALBUTEROL SULFATE 2.5 MG/3 ML NEBU NEB SCH ×6 (03:01→23:31)
[2018-12-19] MEDS: IPRATROPIUM BROMIDE 0.5 MG/2.5 ML NEBU NEB SCH ×6 (03:01→23:31)
[2018-12-19] MEDS: BACLOFEN 20 MG TABLET GT SCH ×3 (05:05→21:23)
[2018-12-19] MEDS: OMEPRAZOLE 20 MG CAPSULE.DR GT SCH (05:05)
[2018-12-19] MEDS: METRONIDAZOLE 500 MG TABLET GT SCH ×3 (05:05→21:23)
[2018-12-19] MEDS: VANCOMYCIN 250 MG GT SCH ×4 (05:05→17:42)
[2018-12-19 08:00] VITALS: BP 112/57
[2018-12-19] MEDS: NORMAL SALINE FLUSH 10 ML DISP.SYRIN IV SCH ×2 (09:00→20:38)
[2018-12-19] MEDS: CEFEPIME HCL 1 G in IV DEXTROSE 5% 50 ML IV SCH ×2 (09:10→20:38)
[2018-12-19] MEDS: DESMOPRESSIN 0.1 MG TABLET GT SCH ×2 (09:29→21:20)
[2018-12-19] MEDS: HEPARIN SODIUM,PORCINE 5,000 UNITS/ML VIAL SQ SCH ×2 (09:29→21:19)
[2018-12-19] MEDS: LEVETIRACETAM 500 MG/5 ML LIQUID UDC GT SCH ×2 (09:29→21:21)
[2018-12-19] MEDS: ACIDOPHILUS/BULGARICUS CHEW TAB GT SCH ×2 (09:29→21:21)
[2018-12-19] MEDS: NYSTATIN POWDER 15 GM BOTTLE TOP SCH ×2 (09:29→21:22)
[2018-12-19] MEDS: HYDROGEN PEROXIDE 3% 118 ML BOTTLE TP SCH ×2 (09:30→21:22)
[2018-12-19] MEDS: COD LIVER OIL/ZINC OXIDE OINT 113 GM TUBE TP SCH ×2 (09:30→21:22)
[2018-12-19] MEDS: NEOMY/BACITRA/POLYMYXIN B OINT UD PACKET TP SCH ×2 (09:30→21:23)
[2018-12-19] MEDS: NYSTATIN POWDER 15 GM BOTTLE TP SCH ×2 (09:30→21:23)
[2018-12-19 20:25] VITALS: BP 113/60
[2018-12-19] MEDS: FOLIC ACID 1 MG TABLET GT SCH (21:21)
[2018-12-19] MEDS: CHOLECALCIFEROL 1,000 UNIT TABLET GT SCH (21:22)
[2018-12-19] MEDS: THIAMINE HCL 100 MG TABLET GT SCH (21:22)
--- NOTE | 2018-12-20 01:17 | NUR ---
PT ON CONT HT 50 VENT WITH SHILEY # [address] AND SECURED, WITH SAME CURRENT VENT SETTINGS, PT DOES ASSIST AT TIMES, WITH NEB INLINE Q4 HOURS, WITH ALBUTEROL/ ATROVENT TOLL WELL, ALL VENT ALARMS GOOD, PT STABLE, SUCTIONED LIGHT PALE YELL TINGE SECRETIONS, NO VENT CHANGES MADE, Ambu bag at bedside, check cuff, change hme. Neel PACHECO RCP Addendum: 12/20/18 at 0120 by BESS PACHECO RT Amended: Links added.
[2018-12-20] MEDS: IPRATROPIUM BROMIDE 0.5 MG/2.5 ML NEBU NEB SCH ×5 (03:45→19:18)
[2018-12-20] MEDS: ALBUTEROL SULFATE 2.5 MG/3 ML NEBU NEB SCH ×5 (03:46→19:18)
[2018-12-20] MEDS: METRONIDAZOLE 500 MG TABLET GT SCH ×3 (05:37→21:40)
[2018-12-20] MEDS: VANCOMYCIN 250 MG GT SCH ×4 (05:38→17:01)
[2018-12-20] MEDS: OMEPRAZOLE 20 MG CAPSULE.DR GT SCH (05:38)
[2018-12-20] MEDS: BACLOFEN 20 MG TABLET GT SCH ×3 (05:38→21:40)
--- NOTE | 2018-12-20 07:10 | NUR ---
RT- Pt received in semi saldana position, obtunded, unable to communicate, and on continuous mechanical ventilation via Shiley 6 DCT trach. Pt is on Danika HT-50 ventilator with ordered settings of SIMV-12, VT-500, PEEP+5, PS-10, FIO2-28% Tolerating vent settings well. SpO2-100% Trach is patent and secured. Minimal occluding volume technique used to assess cuff inflation. In-line nebulizer treatments given as ordered, Q4 with Albuterol/Atrovent. Treatments tolerated well, with no adverse reactions noted. Sxn'd and lavaged as needed. Suctioned small amounts of thick pale yellowish secretions. HME changed. PPE used. No signs or symptoms of respiratory distress. Ventilator alarm parameters checked, on and audible. Vent plugged into red emergency outlet. Bag/valve/mask and backup trach at bedside. Will continue to monitor.
[2018-12-20 08:01] VITALS: BP 116/77
[2018-12-20] MEDS: DESMOPRESSIN 0.1 MG TABLET GT SCH ×2 (08:30→20:12)
[2018-12-20] MEDS: ACIDOPHILUS/BULGARICUS CHEW TAB GT SCH ×2 (08:31→20:12)
[2018-12-20] MEDS: LEVETIRACETAM 500 MG/5 ML LIQUID UDC GT SCH ×2 (08:31→20:12)
[2018-12-20] MEDS: NYSTATIN POWDER 15 GM BOTTLE TOP SCH ×2 (08:32→20:13)
[2018-12-20] MEDS: COD LIVER OIL/ZINC OXIDE OINT 113 GM TUBE TP SCH ×2 (08:32→20:13)
[2018-12-20] MEDS: NYSTATIN POWDER 15 GM BOTTLE TP SCH ×2 (08:32→20:13)
[2018-12-20] MEDS: HYDROGEN PEROXIDE 3% 118 ML BOTTLE TP SCH ×2 (08:32→20:13)
[2018-12-20] MEDS: NEOMY/BACITRA/POLYMYXIN B OINT UD PACKET TP SCH ×2 (08:32→20:13)
[2018-12-20] MEDS: HEPARIN SODIUM,PORCINE 5,000 UNITS/ML VIAL SQ SCH ×2 (08:32→20:12)
[2018-12-20] MEDS: NORMAL SALINE FLUSH 10 ML DISP.SYRIN IV SCH ×2 (09:39→21:00)
[2018-12-20] MEDS: CEFEPIME HCL 1 G in IV DEXTROSE 5% 50 ML IV SCH ×2 (09:40→21:06)
--- NOTE | 2018-12-20 19:20 | NUR ---
Received pt on HT-50 ventilator with the following settings of SIMV-12, Vt-500, PEEP+5, PS-10, FIO2-28%, trached with Shiley#6 DCT trach, which is in the place and secure. No s/s of respiratory distress noted. Airway care done, pt responded to physical stimuli. In-line HHN tx with 2.5mg Albuterol+0.5mg Atrovent given, pt tolerated well. HME changed. PPE used. Resus. bag and back up trach at bedside. Vent and alarms checked and reset.
[2018-12-20] MEDS: THIAMINE HCL 100 MG TABLET GT SCH (20:12)
[2018-12-20] MEDS: FOLIC ACID 1 MG TABLET GT SCH (20:12)
[2018-12-20] MEDS: CHOLECALCIFEROL 1,000 UNIT TABLET GT SCH (20:13)
[2018-12-20 20:35] VITALS: BP 114/76
--- NOTE | 2018-12-20 22:55 | NUR ---
Afebrile, still on vancomycin via gt and flagyl via gt for c-diff, no adverse reactions noted, no diarrhea at this time, on Cefepime IV for sepsis, no adverse reactions noted. KILEY PICC is intact and no complications noted, no signs of any respiratory distress noted. kept patient clean and comfortable.
[2018-12-21] MEDS: IPRATROPIUM BROMIDE 0.5 MG/2.5 ML NEBU NEB SCH ×7 (00:14→22:58)
[2018-12-21] MEDS: ALBUTEROL SULFATE 2.5 MG/3 ML NEBU NEB SCH ×7 (00:14→22:58)
[2018-12-21] MEDS: VANCOMYCIN 250 MG GT SCH ×4 (00:54→17:22)
[2018-12-21] MEDS: BACLOFEN 20 MG TABLET GT SCH ×3 (05:32→21:28)
[2018-12-21] MEDS: METRONIDAZOLE 500 MG TABLET GT SCH ×3 (05:32→21:28)
[2018-12-21] MEDS: OMEPRAZOLE 20 MG CAPSULE.DR GT SCH (05:32)
[2018-12-21 08:00] VITALS: BP 97/62
--- NOTE | 2018-12-21 08:05 | NUR ---
PT REC'D ON CONT MECH VENT SUPPORT SIMV12 500VT PEEP+5 PS10 28%FiO2. PT IS MARLENE CURRENT VENT SETTINGS WELL AT THIS TIME. DIONLEY 6 TRACH CUFF INFLATED, TRACH TUBE IN PLACE, PATENT AND SECURED WITH TRACH TIE. BACK UP TRACH AND BVM BAG AT BEDSIDE. SXN'ING PERFORMED PRN. VENT ALARMS AUDIBLE CHECKED AND RESET. NO RESP DISTRESS NOTED AT THIS TIME. WILL CONTINUE TO MONITOR AND REPORT ANY CHANGES.
[2018-12-21] MEDS: DESMOPRESSIN 0.1 MG TABLET GT SCH ×2 (08:10→21:26)
[2018-12-21] MEDS: ACIDOPHILUS/BULGARICUS CHEW TAB GT SCH ×2 (08:10→21:26)
[2018-12-21] MEDS: LEVETIRACETAM 500 MG/5 ML LIQUID UDC GT SCH ×2 (08:10→21:26)
[2018-12-21] MEDS: HEPARIN SODIUM,PORCINE 5,000 UNITS/ML VIAL SQ SCH ×2 (08:12→21:24)
[2018-12-21] MEDS: COD LIVER OIL/ZINC OXIDE OINT 113 GM TUBE TP SCH ×2 (08:13→21:29)
[2018-12-21] MEDS: NEOMY/BACITRA/POLYMYXIN B OINT UD PACKET TP SCH ×2 (08:13→21:28)
[2018-12-21] MEDS: HYDROGEN PEROXIDE 3% 118 ML BOTTLE TP SCH ×2 (08:13→21:27)
[2018-12-21] MEDS: NYSTATIN POWDER 15 GM BOTTLE TP SCH ×2 (09:00→21:27)
[2018-12-21] MEDS: NYSTATIN POWDER 15 GM BOTTLE TOP SCH ×2 (09:00→21:27)
[2018-12-21] MEDS: NORMAL SALINE FLUSH 10 ML DISP.SYRIN IV SCH ×2 (09:39→21:00)
[2018-12-21] MEDS: CEFEPIME HCL 1 G in IV DEXTROSE 5% 50 ML IV SCH ×2 (09:39→21:00)
--- NOTE | 2018-12-21 17:37 | NUR ---
seen by the irish moss operator with new orders noted to increase the rate to 55 ml/hr.carried out.
--- NOTE | 2018-12-21 18:00 | NUR ---
Continue on ivatb for sepsis,no adverse reaction,picc line on the r arm intact,no s/s of infection noted.
--- NOTE | 2018-12-21 18:36 | NUR ---
PATIENT ON F/C PATENT AND DRAINING THERON URINE. V/STABLE, NO S/S OF ANY DISTRESS NOTED.
--- NOTE | 2018-12-21 19:17 | NUR ---
Pt received on HT-50 ventilator with the following settings of SIMV-12, Vt-500, PEEP+5, PS-10, FIO2-28%, trached with Shiley#6 DCT trach, which is in the place and secure. No respiratory distress noted. Airway care done, pt responded to physical stimuli. In-line HHN tx with 2.5mg Albuterol+0.5mg Atrovent given, pt tolerated well. HME changed. PPE used. Brownish color of secretion reported to pharmacist in charge Jacky. Resus. bag and back up trach at bedside. Vent and alarms checked and reset.
--- NOTE | 2018-12-21 20:00 | NUR ---
Patient is afebrile, remains on cefepime IV for sepsis, on vancomycin via gt and flagyl via GT for c-diff int he stool, no diarrhea noted at this time, RT reported brownish secretions when he suctioned patient. Patient is not on any distress, 02 sat was 98%. I noted light brown ( feeding like color ) secretions from suction canister at this time. HOB elevated and aspiration precaution is maintained. Patient's feeding was just increased today, no residual, nausea or vomiting noted. Will continue monitor patient.
[2018-12-21 20:16] VITALS: BP 99/61
[2018-12-21] MEDS: FOLIC ACID 1 MG TABLET GT SCH (21:26)
[2018-12-21] MEDS: THIAMINE HCL 100 MG TABLET GT SCH (21:27)
[2018-12-21] MEDS: CHOLECALCIFEROL 1,000 UNIT TABLET GT SCH (21:27)
[2018-12-22] MEDS: VANCOMYCIN 250 MG GT SCH ×4 (00:39→17:46)
[2018-12-22] MEDS: IPRATROPIUM BROMIDE 0.5 MG/2.5 ML NEBU NEB SCH ×6 (02:58→23:43)
[2018-12-22] MEDS: ALBUTEROL SULFATE 2.5 MG/3 ML NEBU NEB SCH ×6 (02:58→23:43)
[2018-12-22] MEDS: BACLOFEN 20 MG TABLET GT SCH ×3 (05:28→22:03)
[2018-12-22] MEDS: METRONIDAZOLE 500 MG TABLET GT SCH ×3 (05:28→22:02)
[2018-12-22] MEDS: OMEPRAZOLE 20 MG CAPSULE.DR GT SCH (05:29)
--- NOTE | 2018-12-22 06:54 | NUR ---
Patient still with brownish secretions when suctioned via trach, 02 sat @ 99%, no signs of any distress noted, afebrile,turned and repositioned, kept clean and comfortable.
[2018-12-22 06:56] VITALS: BP 100/55
[2018-12-22] MEDS: VITAL AF 1.2 1,000 ML LIQUID GT PRN (07:08)
[2018-12-22] MEDS: ACIDOPHILUS/BULGARICUS CHEW TAB GT SCH ×2 (08:26→20:20)
[2018-12-22] MEDS: LEVETIRACETAM 500 MG/5 ML LIQUID UDC GT SCH ×2 (08:26→20:21)
[2018-12-22] MEDS: DESMOPRESSIN 0.1 MG TABLET GT SCH ×2 (08:26→20:20)
[2018-12-22] MEDS: HYDROGEN PEROXIDE 3% 118 ML BOTTLE TP SCH ×2 (08:27→20:21)
[2018-12-22] MEDS: NYSTATIN POWDER 15 GM BOTTLE TOP SCH ×2 (08:27→20:21)
[2018-12-22] MEDS: NYSTATIN POWDER 15 GM BOTTLE TP SCH ×2 (08:27→20:22)
[2018-12-22] MEDS: COD LIVER OIL/ZINC OXIDE OINT 113 GM TUBE TP SCH ×2 (08:27→20:21)
[2018-12-22] MEDS: HEPARIN SODIUM,PORCINE 5,000 UNITS/ML VIAL SQ SCH ×2 (08:28→21:00)
[2018-12-22] MEDS: NORMAL SALINE FLUSH 10 ML DISP.SYRIN IV SCH ×2 (09:00→21:59)
[2018-12-22] MEDS: CEFEPIME HCL 1 G in IV DEXTROSE 5% 50 ML IV SCH ×2 (09:00→21:04)
--- NOTE | 2018-12-22 11:10 | NUR ---
JOSUÉ met with patient's family friend Mahamed and informed her that the next IDT meeting for the patient is scheduled for 12/28/2018. JOSUÉ asked Mahamed if she could notify patient's mother, and then let this SW know if patient's mother will be able to attend the meeting. [place] agreed.
--- NOTE | 2018-12-22 17:45 | NUR ---
Continue on Cefepine ivatb for sepsis ,vancomycin and flagyl via gt for c difficile ,no adverse reaction noted,picc line on the R upper arm intact,no s/s of of infection noted.
--- NOTE | 2018-12-22 19:02 | NUR ---
Left message to Lia regarding pt has tea color urine and light brownish thick secretions,afebrile.
--- NOTE | 2018-12-22 19:21 | NUR ---
Sheryla call back with new orders noted to discontinue vancomycin.
[2018-12-22 20:15] VITALS: BP 90/55
--- NOTE | 2018-12-22 20:15 | NUR ---
S/p vancomycin for c-diff in the stool, still on flagyl via gt for c-diff, no bowel movements for two (2) days. Still on Cefepime for sepsis, no adverse reactions noted, Temperature is 94.3 degrees fahrenheit, skin is cool to touch, applied alexandru hugger as ordered, bhatt catheter is draining with tea colored urine, Lia , (MATCH MARKER) is aware and ordered to discontinue vancomycin via Gt. No signs of any distress noted, kept patient clean and comfortable, will continue monitor.
[2018-12-22] MEDS: FOLIC ACID 1 MG TABLET GT SCH (20:20)
[2018-12-22] MEDS: CHOLECALCIFEROL 1,000 UNIT TABLET GT SCH (20:21)
[2018-12-22] MEDS: THIAMINE HCL 100 MG TABLET GT SCH (20:21)
[2018-12-22 20:29] VITALS: BP 90/55
[2018-12-22] MEDS ORDERED: NEOMY/BACITRAC/POLYMI OINT 28.35 GM TUBE TP SCH (21:01)
[2018-12-22] MEDS: NEOMY/BACITRA/POLYMYXIN B OINT UD PACKET TP SCH (21:03)
--- NOTE | 2018-12-23 00:10 | NUR ---
PT ON CONT HT 50 VENT WITH SHILEY TRACH IN PLACE AND SECURED, WITH SAME CURRENT VENT SETTINGS, PT DOES ASSIST AT TIMES, CHECK CUFF, CHANGE HME, ALL VENT ALARMS GOOD, NEB INLINE X 3 Q4 HOURS WITH ALBUTEROL/ ATROVENT TOLL WELL, NO VENT CHANGES MADE AT THIS TIME, SUCTIONED LIGHT PALE YELL TINGE SECRETIONS, PT STABLE, PT IN ISOLATION, AMBU BAG AT BEDSIDE. Neel WALLSP Addendum: 12/23/18 at 0014 by BESS PACHECO RT Amended: Links added.
[2018-12-23] MEDS: VITAL AF 1.2 1,000 ML LIQUID GT PRN (02:13)
[2018-12-23] MEDS: ALBUTEROL SULFATE 2.5 MG/3 ML NEBU NEB SCH ×6 (03:23→23:56)
[2018-12-23] MEDS: IPRATROPIUM BROMIDE 0.5 MG/2.5 ML NEBU NEB SCH ×6 (03:23→23:56)
--- NOTE | 2018-12-23 04:45 | NUR ---
continue on cefepime iv for sepsis, no adverse reaction noted, afebrile.
[2018-12-23] MEDS: OMEPRAZOLE 20 MG CAPSULE.DR GT SCH (06:06)
[2018-12-23] MEDS: BACLOFEN 20 MG TABLET GT SCH ×3 (06:06→22:27)
[2018-12-23] MEDS: METRONIDAZOLE 500 MG TABLET GT SCH ×3 (06:06→21:25)
[2018-12-23] MEDS: DESMOPRESSIN 0.1 MG TABLET GT SCH ×2 (08:04→20:11)
[2018-12-23] MEDS: LEVETIRACETAM 500 MG/5 ML LIQUID UDC GT SCH ×2 (08:06→20:12)
[2018-12-23] MEDS: NYSTATIN POWDER 15 GM BOTTLE TOP SCH ×2 (08:06→20:16)
[2018-12-23] MEDS: COD LIVER OIL/ZINC OXIDE OINT 113 GM TUBE TP SCH ×2 (08:06→20:16)
[2018-12-23] MEDS: HYDROGEN PEROXIDE 3% 118 ML BOTTLE TP SCH ×2 (08:06→20:16)
[2018-12-23] MEDS: ACIDOPHILUS/BULGARICUS CHEW TAB GT SCH ×2 (08:06→20:12)
[2018-12-23] MEDS: NEOMY/BACITRA/POLYMYXIN B OINT UD PACKET TP SCH ×2 (08:07→20:15)
[2018-12-23] MEDS: NYSTATIN POWDER 15 GM BOTTLE TP SCH ×2 (08:07→20:16)
[2018-12-23] MEDS: HEPARIN SODIUM,PORCINE 5,000 UNITS/ML VIAL SQ SCH ×2 (08:16→21:24)
[2018-12-23 08:40] VITALS: BP 107/46
[2018-12-23] MEDS: CEFEPIME HCL 1 G in IV DEXTROSE 5% 50 ML IV SCH ×2 (08:57→21:12)
[2018-12-23] MEDS: NORMAL SALINE FLUSH 10 ML DISP.SYRIN IV SCH ×2 (09:00→21:00)
--- NOTE | 2018-12-23 17:23 | NUR ---
PT ON HT-50 VENT, SETTINGS ARE SIMV 12, Vt 500, +5, PS 10, 28%. TOLERATING VENT SETTINGS WELL, NO SOB NOTED. SHILEY 6 TRACH IS PATENT AND SECURED WITH TIES. BACK UP TRACH AND BVM AT BEDSIDE. INLINE TXS GIVEN WITH NO ADVERSE REACTIONS. HME CHANGED, ALARMS ARE ON AND AUDIBLE. WILL CONTINUE TO MONITOR.
--- NOTE | 2018-12-23 20:02 | NUR ---
PT. WAS SEEN BY DR. WORTHINGTON AND WITH NEW ORDERS CARRIED OUT.
[2018-12-23] MEDS: THIAMINE HCL 100 MG TABLET GT SCH (20:12)
[2018-12-23] MEDS: FOLIC ACID 1 MG TABLET GT SCH (20:12)
[2018-12-23] MEDS: CHOLECALCIFEROL 1,000 UNIT TABLET GT SCH (20:12)
[2018-12-23 20:33] VITALS: BP 116/61
--- NOTE | 2018-12-23 22:59 | NUR ---
continue on flagyl via gt for c.diff., cefepime iv for sepsis, no adverse reaction noted,temp-97.3, no respiratory distress noted.
--- NOTE | 2018-12-24 00:30 | NUR ---
PT ON CONT HT 50 VENT WITH SHILEY # [address] AND SECURED, WITH SAME CURRENT VENT SETTINGS, PT DOES ASSIST AT TIMES, WITH GOOD COUGH EFFORT, SUCTIONED LIGHT PALE YELL TINGE SECRETIONS, NO VENT CHANGES MADE, CHANGE HME AND CHECK CUFF, PT STABLE,N EB INLINE X 3 WITH ALBUTEROL/ ATROVENT TOLL WELL. Neel WALLSP Addendum: 12/24/18 at 0032 by BESS PACHECO RT Amended: Links added.
[2018-12-24] MEDS: VITAL AF 1.2 1,000 ML LIQUID GT PRN (01:08)
[2018-12-24] MEDS: ALBUTEROL SULFATE 2.5 MG/3 ML NEBU NEB SCH ×6 (03:41→22:58)
[2018-12-24] MEDS: IPRATROPIUM BROMIDE 0.5 MG/2.5 ML NEBU NEB SCH ×6 (03:41→22:58)
[2018-12-24] MEDS: BACLOFEN 20 MG TABLET GT SCH ×3 (05:53→21:49)
[2018-12-24] MEDS: OMEPRAZOLE 20 MG CAPSULE.DR GT SCH (05:53)
[2018-12-24] MEDS: METRONIDAZOLE 500 MG TABLET GT SCH (05:53)
[2018-12-24] MEDS: BISACODYL 10 MG SUPP.RECT RC PRN (06:19)
[2018-12-24 06:41] LABS: ALANINE AMINOTRANSFERASE 26 U/L (14-59); ALKALINE PHOSPHATASE 74 U/L (50-136); ASPARTATE AMINOTRANSFERASE 23 U/L (15-37); BILIRUBIN,TOTAL 0.4 mg/dL (0.2-1.0); CARBON DIOXIDE 25 mmol/L (21-32); CHLORIDE 89 mmol/L (98-107); CREATININE 0.4 mg/dL (0.6-1.3); GLUCOSE 79 mg/dL (74-106); MAGNESIUM 1.4 mg/dL (1.8-2.4); PHOSPHOROUS 2.5 mg/dL (2.5-4.9); POTASSIUM 4.5 mmol/L (3.5-5.1); TOTAL PROTEIN, SERUM 6.6 g/dL (6.4-8.2); UREA NITROGEN, BLOOD 11 mg/dL (7-18)
[2018-12-24 06:55] LABS: BASOPHILS # (AUTO) 0.1 K/uL (0.0-8.0); BASOPHILS % (AUTO) 3.2 % (0.0-2.0); EOSINOPHILS # (AUTO) 0.1 K/uL (0.0-0.7); EOSINOPHILS % (AUTO) 1.7 % (0.0-7.0); HEMOGLOBIN 8.8 g/dL (10.9-14.3); LYMPHOCYTES # (AUTO) 0.7 K/uL (20.0-40.0); LYMPHOCYTES % (AUTO) 23.4 % (20.5-51.5); MEAN CORPUSCULAR HEMOGLOBIN 30.3 uug (24.7-32.8); MEAN CORPUSCULAR HGB CONC 34 g/dL (32.3-35.6); MEAN CORPUSCULAR VOLUME 89.5 fL (75.5-95.3); MONOCYTES # (AUTO) 0.1 K/uL (2.0-10.0); NEUTROPHILS # (AUTO) 2.1 K/uL (1.8-8.9); NEUTROPHILS % (AUTO) 67.7 % (38.5-71.5)
[2018-12-24 07:25] LABS: PLATELET COUNT (AUTO) 70 K/uL (179-408); WHITE BLOOD COUNT (AUTO) 3.2 K/uL (3.8-11.8)
[2018-12-24 07:44] VITALS: BP 114/65
--- NOTE | 2018-12-24 08:05 | NUR ---
Dr. sandra addison paged re:abnormal lab results.
[2018-12-24 08:17] LABS: BAND % (MANUAL) 1 % (0-10); EOSINOPHILS % (MANUAL) 3 % (0-8); LYMPHOCYTES % (MANUAL) 31 % (20-40); MONOCYTES % (MANUAL) 3 % (2-10); NEUTROPHILS % (MANUAL) 62 % (42-75)
--- NOTE | 2018-12-24 08:21 | NUR ---
DR. WORTHINGTON ALSO AWARE OF LAB RESULTS TODAY AND AWARE THAT DR. MUKHERJEE WAS PAGED.
[2018-12-24] MEDS: ACIDOPHILUS/BULGARICUS CHEW TAB GT SCH ×2 (08:43→20:31)
[2018-12-24] MEDS: DESMOPRESSIN 0.1 MG TABLET GT SCH ×2 (08:43→20:31)
[2018-12-24] MEDS: LEVETIRACETAM 500 MG/5 ML LIQUID UDC GT SCH ×2 (08:44→20:31)
[2018-12-24] MEDS: NYSTATIN POWDER 15 GM BOTTLE TOP SCH ×2 (08:44→20:33)
[2018-12-24] MEDS: COD LIVER OIL/ZINC OXIDE OINT 113 GM TUBE TP SCH ×2 (08:44→20:33)
[2018-12-24] MEDS: NEOMY/BACITRA/POLYMYXIN B OINT UD PACKET TP SCH ×2 (08:45→20:34)
[2018-12-24] MEDS: NYSTATIN POWDER 15 GM BOTTLE TP SCH ×2 (08:45→20:34)
[2018-12-24] MEDS: HYDROGEN PEROXIDE 3% 118 ML BOTTLE TP SCH ×2 (08:45→20:34)
[2018-12-24] MEDS: HEPARIN SODIUM,PORCINE 5,000 UNITS/ML VIAL SQ SCH ×2 (08:46→20:32)
[2018-12-24] MEDS: NORMAL SALINE FLUSH 10 ML DISP.SYRIN IV SCH ×2 (09:15→20:48)
[2018-12-24] MEDS: CEFEPIME HCL 1 G in IV DEXTROSE 5% 50 ML IV SCH ×2 (09:15→20:47)
--- NOTE | 2018-12-24 12:42 | NUR ---
NEW ORDER CARRIED OUT FROM VAL GallowayI.Neel) TO D/C JUNE.
--- NOTE | 2018-12-24 16:33 | NUR ---
DR. MUKHERJEE CALLED AGAIN RE:PLATELET COUNT 70,PT. ON HEPARIN 5000 UNITS Q 12 HRS.NO S/S OF LOCAL BLEEDING.
[2018-12-24] MEDS ORDERED: MAGNESIUM OXIDE 400 MG TABLET GT ONE (17:00)
--- NOTE | 2018-12-24 17:35 | NUR ---
LOCAL PICCLINE DRESSING CHANGE IN STERILE MANNER ,INSERTION SITE NOTED WITHOUT S/S OF INFECTION OR LOCAL BLEEDING.
--- NOTE | 2018-12-24 19:10 | NUR ---
Pt received on HT-50 ventilator with the following settings of SIMV-12, Vt-500, PEEP+5, PS-10, FIO2-28%, trached with Shiley#6 DCT trach, which is in the place and secure. No distress noted. Airway care done, pt responded to physical stimuli. In-line HHN tx with 2.5mg Albuterol+0.5mg Atrovent given, no adverse reaction noted. HME changed. PPE used. Resus. bag and back up trach at bedside. Vent and alarms checked and reset.
[2018-12-24] MEDS: THIAMINE HCL 100 MG TABLET GT SCH (20:31)
[2018-12-24] MEDS: FOLIC ACID 1 MG TABLET GT SCH (20:31)
[2018-12-24] MEDS: CHOLECALCIFEROL 1,000 UNIT TABLET GT SCH (20:31)
[2018-12-25] MEDS: VITAL AF 1.2 1,000 ML LIQUID GT PRN (01:21)
--- NOTE | 2018-12-25 01:55 | NUR ---
continue on cefepime iv for sepsis, no adverse reaction noted, no respiratory distress noted, temp 94.4 rectally, alexandru hugger applied.
[2018-12-25 02:06] VITALS: BP 91/49
[2018-12-25] MEDS: IPRATROPIUM BROMIDE 0.5 MG/2.5 ML NEBU NEB SCH ×6 (02:59→23:14)
[2018-12-25] MEDS: ALBUTEROL SULFATE 2.5 MG/3 ML NEBU NEB SCH ×6 (02:59→23:14)
[2018-12-25] MEDS: BACLOFEN 20 MG TABLET GT SCH ×3 (05:44→21:29)
[2018-12-25] MEDS: OMEPRAZOLE 20 MG CAPSULE.DR GT SCH (05:44)
[2018-12-25 07:56] VITALS: BP 91/60
[2018-12-25] MEDS: LEVETIRACETAM 500 MG/5 ML LIQUID UDC GT SCH ×2 (09:00→20:07)
[2018-12-25] MEDS: ACIDOPHILUS/BULGARICUS CHEW TAB GT SCH ×2 (09:00→20:07)
[2018-12-25] MEDS: NYSTATIN POWDER 15 GM BOTTLE TP SCH ×2 (09:00→20:12)
[2018-12-25] MEDS: NORMAL SALINE FLUSH 10 ML DISP.SYRIN IV SCH ×2 (09:00→20:34)
[2018-12-25] MEDS: COD LIVER OIL/ZINC OXIDE OINT 113 GM TUBE TP SCH ×2 (09:00→20:11)
[2018-12-25] MEDS: HEPARIN SODIUM,PORCINE 5,000 UNITS/ML VIAL SQ SCH ×2 (09:00→21:29)
[2018-12-25] MEDS: DESMOPRESSIN 0.1 MG TABLET GT SCH ×2 (09:00→20:07)
[2018-12-25] MEDS: NYSTATIN POWDER 15 GM BOTTLE TOP SCH ×2 (09:00→20:11)
[2018-12-25] MEDS: CEFEPIME HCL 1 G in IV DEXTROSE 5% 50 ML IV SCH ×2 (09:00→20:34)
[2018-12-25] MEDS: HYDROGEN PEROXIDE 3% 118 ML BOTTLE TP SCH ×2 (09:00→20:12)
[2018-12-25] MEDS: NEOMY/BACITRA/POLYMYXIN B OINT UD PACKET TP SCH ×2 (09:00→20:12)
--- NOTE | 2018-12-25 19:05 | NUR ---
Pt received in semi saldana position, obtunded, unable to communicate, and on continuous mechanical ventilation via Shiley 6 DCT trach. Pt is on [place] HT-50 ventilator with ordered settings of SIMV-12, VT-500, PEEP+5, PS-10, FIO2-28% Tolerating vent settings well. Trach is patent and secured. Minimal occluding volume technique used to assess cuff inflation. In-line nebulizer treatments given as ordered, Q4 with Albuterol/Atrovent. Treatments tolerated well, with no adverse reactions noted. Sxn'd and lavaged as needed. Suctioned small amounts of red bloody secretions. HME & in-line suction catheter changed. PPE used. No signs or symptoms of respiratory distress. Ventilator alarm parameters checked, on and audible. Vent plugged into red emergency outlet. Bag/valve/mask and backup trach at bedside. Will continue to monitor.
[2018-12-25] MEDS: CHOLECALCIFEROL 1,000 UNIT TABLET GT SCH (20:07)
[2018-12-25] MEDS: FOLIC ACID 1 MG TABLET GT SCH (20:07)
[2018-12-25] MEDS: THIAMINE HCL 100 MG TABLET GT SCH (20:07)
[2018-12-25 20:27] VITALS: BP 97/47
[2018-12-26] MEDS: VITAL AF 1.2 1,000 ML LIQUID GT PRN (01:29)
[2018-12-26] MEDS: ALBUTEROL SULFATE 2.5 MG/3 ML NEBU NEB SCH ×6 (03:06→23:30)
[2018-12-26] MEDS: IPRATROPIUM BROMIDE 0.5 MG/2.5 ML NEBU NEB SCH ×6 (03:06→23:30)
[2018-12-26] MEDS: BACLOFEN 20 MG TABLET GT SCH ×3 (05:12→21:02)
[2018-12-26] MEDS: OMEPRAZOLE 20 MG CAPSULE.DR GT SCH (05:12)
--- NOTE | 2018-12-26 07:24 | NUR ---
PT RECEIVED ON HT-50 VENTILATOR TOLERATING CURRENT VENT SETTINGS FINE SHOWING NO SIGNS OF RESPIRATORY DISTRESS. TRACH IS PROPERLY SECURED AND INTACT. AIRWAY IS PATENT. BREATH SOUNDS RHONCHI. PRN SUCTIONING PERFORMED NEEDED. PT HAD MODERATE AMOUNT OF OFF WHITE YELLOWISH SECRETIONS. HEAD OF THE BED ELEVATED GREATER THAN 30 DEGREE ANGLE. VENT ALARM SET AND AUDIBLE. VENT PLUGGED IN RED OUTLET. PT COMFORTABLE
[2018-12-26] MEDS: ACIDOPHILUS/BULGARICUS CHEW TAB GT SCH ×2 (08:07→20:58)
[2018-12-26] MEDS: COD LIVER OIL/ZINC OXIDE OINT 113 GM TUBE TP SCH ×2 (08:07→20:59)
[2018-12-26] MEDS: NYSTATIN POWDER 15 GM BOTTLE TOP SCH ×2 (08:07→20:59)
[2018-12-26] MEDS: HYDROGEN PEROXIDE 3% 118 ML BOTTLE TP SCH ×2 (08:07→21:00)
[2018-12-26] MEDS: DESMOPRESSIN 0.1 MG TABLET GT SCH ×2 (08:07→20:58)
[2018-12-26] MEDS: LEVETIRACETAM 500 MG/5 ML LIQUID UDC GT SCH ×2 (08:07→20:58)
[2018-12-26] MEDS: NEOMY/BACITRA/POLYMYXIN B OINT UD PACKET TP SCH ×2 (08:07→21:00)
[2018-12-26] MEDS: NYSTATIN POWDER 15 GM BOTTLE TP SCH ×2 (08:07→21:00)
[2018-12-26] MEDS: HEPARIN SODIUM,PORCINE 5,000 UNITS/ML VIAL SQ SCH ×2 (08:08→21:00)
[2018-12-26] MEDS: CEFEPIME HCL 1 G in IV DEXTROSE 5% 50 ML IV SCH ×2 (09:09→20:33)
[2018-12-26] MEDS: NORMAL SALINE FLUSH 10 ML DISP.SYRIN IV SCH ×2 (09:09→20:33)
[2018-12-26 12:16] VITALS: BP 95/63
--- NOTE | 2018-12-26 19:27 | NUR ---
PT RECEIVED ON THE HT-50 VENT WITH THE FOLLOWING SETTINGS THAT ARE CHARTED ON THE MECHANICAL VENT NOTES. TRACH TUBE IS PATENT AND SECURED WITH TRACH TIES. HHN TX GIVEN PER MD ORDERS, NO ADVERSE REACTIONS NOTED. HME CHANGED. SUCTIONED VERY SMALL AMOUNTS OF THIN WHITE SECRETIONS. VENT ALARMS CHECKED AND THEY ARE ON AND AUDIBLE. VENT IS PLUGGED IN THE RED OUTLET. SPARE TRACH AND BMV IS BY BEDSIDE. PT IS TOLERATING CURRENT VENT SETTINGS WELL AT THIS TIME WITH NO SOB NOTED. WILL CONTINUE TO MONITOR PT.
[2018-12-26 20:45] VITALS: BP 99/67
[2018-12-26] MEDS: FOLIC ACID 1 MG TABLET GT SCH (20:58)
[2018-12-26] MEDS: THIAMINE HCL 100 MG TABLET GT SCH (20:58)
[2018-12-26] MEDS: CHOLECALCIFEROL 1,000 UNIT TABLET GT SCH (20:58)
[2018-12-27] MEDS: VITAL AF 1.2 1,000 ML LIQUID GT PRN (00:29)
[2018-12-27] MEDS: ALBUTEROL SULFATE 2.5 MG/3 ML NEBU NEB SCH ×6 (02:53→22:58)
[2018-12-27] MEDS: IPRATROPIUM BROMIDE 0.5 MG/2.5 ML NEBU NEB SCH ×6 (02:53→22:58)
[2018-12-27] MEDS: OMEPRAZOLE 20 MG CAPSULE.DR GT SCH (06:09)
[2018-12-27] MEDS: BACLOFEN 20 MG TABLET GT SCH ×3 (06:09→21:05)
--- NOTE | 2018-12-27 07:30 | NUR ---
PT RECEIVED TRACH TO VENT ON SETTINGS OF SIMV 12, VT 500, PEEP +5, PS 10, AND 28% FIO2. SHILEY #6 TRACH IS PATENT AND SECURE. IN-LINE TX TOLERATED WELL, NO ADVERSE REACTION NOTED. PT IS TOLERATING VENT SETTINGS WELL, NO RESP. DISTRESS NOTED AT THIS TIME. AMBU-BAG AT BEDSIDE. VENT PLUGGED INTO RED OUTLET. SUCTION PRN. WILL CONTINUE TO MONITOR.
[2018-12-27 08:11] VITALS: BP 104/44
[2018-12-27] MEDS: COD LIVER OIL/ZINC OXIDE OINT 113 GM TUBE TP SCH ×2 (08:14→21:04)
[2018-12-27] MEDS: DESMOPRESSIN 0.1 MG TABLET GT SCH ×2 (08:14→20:58)
[2018-12-27] MEDS: LEVETIRACETAM 500 MG/5 ML LIQUID UDC GT SCH ×2 (08:14→20:58)
[2018-12-27] MEDS: NYSTATIN POWDER 15 GM BOTTLE TOP SCH ×2 (08:14→21:04)
[2018-12-27] MEDS: HYDROGEN PEROXIDE 3% 118 ML BOTTLE TP SCH ×2 (08:14→21:04)
[2018-12-27] MEDS: ACIDOPHILUS/BULGARICUS CHEW TAB GT SCH ×2 (08:14→20:58)
[2018-12-27] MEDS: NEOMY/BACITRA/POLYMYXIN B OINT UD PACKET TP SCH ×2 (08:15→21:04)
[2018-12-27] MEDS: NYSTATIN POWDER 15 GM BOTTLE TP SCH ×2 (08:15→21:04)
[2018-12-27] MEDS: HEPARIN SODIUM,PORCINE 5,000 UNITS/ML VIAL SQ SCH ×2 (08:15→21:03)
[2018-12-27 08:16] LABS: ALANINE AMINOTRANSFERASE 27 U/L (14-59); ALKALINE PHOSPHATASE 78 U/L (50-136); ASPARTATE AMINOTRANSFERASE 25 U/L (15-37); BILIRUBIN,TOTAL 0.4 mg/dL (0.2-1.0); CARBON DIOXIDE 25 mmol/L (21-32); CHLORIDE 92 mmol/L (98-107); CREATININE 0.2 mg/dL (0.6-1.3); GLUCOSE 73 mg/dL (74-106); PHOSPHOROUS 4.1 mg/dL (2.5-4.9); POTASSIUM 4.5 mmol/L (3.5-5.1); TOTAL PROTEIN, SERUM 6.9 g/dL (6.4-8.2); UREA NITROGEN, BLOOD 15 mg/dL (7-18)
[2018-12-27 08:21] LABS: BASOPHILS % (AUTO) 0.8 % (0.0-2.0); EOSINOPHILS # (AUTO) 0.1 K/uL (0.0-0.7); EOSINOPHILS % (AUTO) 1.6 % (0.0-7.0); HEMATOCRIT 24.2 % (31.2-41.9); HEMOGLOBIN 8.2 g/dL (10.9-14.3); LYMPHOCYTES # (AUTO) 1.2 K/uL (20.0-40.0); LYMPHOCYTES % (AUTO) 32.3 % (20.5-51.5); MEAN CORPUSCULAR HEMOGLOBIN 30.3 uug (24.7-32.8); MEAN CORPUSCULAR HGB CONC 34 g/dL (32.3-35.6); MEAN CORPUSCULAR VOLUME 89.7 fL (75.5-95.3); MONOCYTES # (AUTO) 0.2 K/uL (2.0-10.0); MONOCYTES % (AUTO) 6.6 % (0.0-11.0); NEUTROPHILS # (AUTO) 2.2 K/uL (1.8-8.9); NEUTROPHILS % (AUTO) 58.7 % (38.5-71.5); PLATELET COUNT (AUTO) 55 K/uL (179-408); WHITE BLOOD COUNT (AUTO) 3.8 K/uL (3.8-11.8)
--- NOTE | 2018-12-27 08:30 | NUR ---
NEW ORDER FROM DR. MUKHERJEE WAS CARRIED OUT FOR CT SCAN OF HEAD WITHOUT CONTRAST DX: ENCEPHALOPATHY FOR A SECOND NEUROLOGIST OPINION (MOTHER WILL TAKE FILM IN DISK BACK TO [place] PER DR. MUKHERJEE STATEMENT.)
[2018-12-27] MEDS: CEFEPIME HCL 1 G in IV DEXTROSE 5% 50 ML IV SCH ×2 (08:58→20:57)
[2018-12-27] MEDS: NORMAL SALINE FLUSH 10 ML DISP.SYRIN IV SCH ×2 (08:59→21:00)
[2018-12-27 11:06] LABS: BAND % (MANUAL) 1 % (0-10); BASOPHILS % (MANUAL) 1 % (0-2); EOSINOPHILS % (MANUAL) 2 % (0-8); LYMPHOCYTES % (MANUAL) 40 % (20-40); MONOCYTES % (MANUAL) 5 % (2-10); NEUTROPHILS % (MANUAL) 51 % (42-75)
--- NOTE | 2018-12-27 14:39 | NUR ---
SEEN BY MARCIN WAY.
--- NOTE | 2018-12-27 15:09 | NUR ---
SEEN AND EXAMINE BY AIDA CALVO, WITH NNO MADE WILL CONTINUE MONITOR
--- NOTE | 2018-12-27 19:12 | NUR ---
Pt received on HT-50 ventilator with the following settings of SIMV-12, Vt-500, PEEP+5, PS-10, FIO2-28%, trached with Shiley#6 DCT trach, which is in the place and secure. No s/s of respiratory distress noted. Airway care done, pt responded to physical stimuli. In-line HHN tx with 2.5mg Albuterol+0.5mg Atrovent given, no adverse reaction noted. HME changed. PPE used. Resus. bag and back up trach at bedside. Vent and alarms checked and reset.
[2018-12-27 20:52] VITALS: BP 106/58
[2018-12-27] MEDS: FOLIC ACID 1 MG TABLET GT SCH (20:58)
[2018-12-27] MEDS: THIAMINE HCL 100 MG TABLET GT SCH (21:02)
[2018-12-27] MEDS: CHOLECALCIFEROL 1,000 UNIT TABLET GT SCH (21:02)
--- NOTE | 2018-12-27 22:18 | NUR ---
continue on cefepime iv for sepsis, no adverse reaction noted, afebrile.
[2018-12-28] MEDS: ALBUTEROL SULFATE 2.5 MG/3 ML NEBU NEB SCH ×6 (02:58→22:49)
[2018-12-28] MEDS: IPRATROPIUM BROMIDE 0.5 MG/2.5 ML NEBU NEB SCH ×6 (02:58→22:48)
[2018-12-28] MEDS: VITAL AF 1.2 1,000 ML LIQUID GT PRN (03:41)
[2018-12-28] MEDS: OMEPRAZOLE 20 MG CAPSULE.DR GT SCH (05:46)
[2018-12-28] MEDS: BACLOFEN 20 MG TABLET GT SCH ×3 (05:46→22:04)
[2018-12-28 08:00] VITALS: BP 99/61
[2018-12-28] MEDS: LEVETIRACETAM 500 MG/5 ML LIQUID UDC GT SCH ×2 (08:55→20:37)
[2018-12-28] MEDS: DESMOPRESSIN 0.1 MG TABLET GT SCH ×2 (08:55→20:36)
[2018-12-28] MEDS: ACIDOPHILUS/BULGARICUS CHEW TAB GT SCH ×2 (08:55→20:36)
[2018-12-28] MEDS: NYSTATIN POWDER 15 GM BOTTLE TOP SCH ×2 (08:57→20:38)
[2018-12-28] MEDS: HEPARIN SODIUM,PORCINE 5,000 UNITS/ML VIAL SQ SCH (08:58)
[2018-12-28] MEDS: HYDROGEN PEROXIDE 3% 118 ML BOTTLE TP SCH ×2 (08:59→20:39)
[2018-12-28] MEDS: NYSTATIN POWDER 15 GM BOTTLE TP SCH ×2 (08:59→20:39)
[2018-12-28] MEDS: COD LIVER OIL/ZINC OXIDE OINT 113 GM TUBE TP SCH ×2 (08:59→20:39)
[2018-12-28] MEDS: NEOMY/BACITRA/POLYMYXIN B OINT UD PACKET TP SCH ×2 (09:00→20:39)
[2018-12-28] MEDS: CEFEPIME HCL 1 G in IV DEXTROSE 5% 50 ML IV SCH ×2 (09:08→20:36)
[2018-12-28] MEDS: NORMAL SALINE FLUSH 10 ML DISP.SYRIN IV SCH ×2 (09:08→20:36)
--- NOTE | 2018-12-28 14:00 | NUR ---
NEW ORDER CARRIED OUT FROM [facility] TO CHANGE F/C 18X10 D/T INCREASED SEDIMENTS.
--- NOTE | 2018-12-28 14:50 | NUR ---
Pharmacy Update from Today's 12/28/18 IDT Meeting Note: Patient was transferred from subacute floor to CCU 11/25-12/14 d/t recurrent fevers and subsequently found with asp PNA with empyema resulting in chest tube placement and drainage. Pt also found with c. diff. Pt was stabilized, treated, and transferred back on abx cefepime IV, vanco po, flagyl for x4 more weeks per ID. VS: Temp 97 BP 99/61 HR 53 LABS: (from 12/27/18) Wbc 3.8H/H 8.2/24.2Plt 55 Na 125K 4.5Cl 92CO2 25BUN/Scr 15/0.2 BS 73Ca 8.9 MEDICATION USE REVIEWED: > Pt not on any anti-psych medications > Pt continues Keppra 250mg q12h since 11/09/18; CrCl >100ml/min, renal function ok for current dose. No seizure episodes noted. > Pt on Heparin 5000units q12h for DVT Prophylaxis. No bleeding noted; last plt 309 > Pt now on DDAVP 0.05mg GT q12h for diabetes insipidus adjusted as of 11/29/18 while in CCU PRN MED USAGE: (Since readmit) Tylenol for pain/temp used x0 Artificial Tears used x0 Bisacodyl Supp used x5 NEW ORDERS NOTED: > Pt continues on cefepime 1gm q12h, flagyl 500mg GT q8h, vanco 250mg GT q6h until 01/11 per ID (asp PNA/empyema, c diff continued tx) > Pt ddavp was increased 0.05mg daily to q12h 11/29 while in CCU > Pt ritalin trial per neurology d/c'd while in CCU with no continuation after transfer. > Continued on baclofen 20mg q8hr as before transfer to CCU with no issues Patient was reviewed and discussed in depth with Rx recommending to d/c heparin as last plt 55 with team in agreement. (Rehana), agreed and order d/c'd. Rx also discussed increased ddavp as hyponatremic however MD aware with no order to change as pt remains with significant fluid retention and likely may require current dose. No further recs at this time, will continue to follow.
--- NOTE | 2018-12-28 16:40 | NUR ---
INTERDISCIPLINARY PLAN OF CARE CONFERENCE was held today. Patient mother did not attend the meeting. Dr. Wagner and the Interdisciplinary Team reviewed the current plan of care in detail. RN reported on patient's current medical condition, current treatment plan, and pending test orders. Patient required acute hospitalization from 11/25/2018--12/14/2018, and was re-admitted to subacute on 12/14/18. Patient continues to remain on isolation precautions due to c-diff. See RN IDT conference notes. See also all other disciplines IDT notes and physician's progress notes for additional details.
--- NOTE | 2018-12-28 17:14 | NUR ---
Seen and examined by Dr Wagner with new orders noted.
--- NOTE | 2018-12-28 19:20 | NUR ---
Pt received in semi saldana position, obtunded, unable to communicate, and on continuous mechanical ventilation via Shiley 6 DCT trach. Pt is on [place] HT-50 ventilator with ordered settings of SIMV-12, VT-500, PEEP+5, PS-10, FIO2-28% Tolerating vent settings well. Trach is patent and secured. Minimal occluding volume technique used to assess cuff inflation. In-line nebulizer treatments given as ordered, Q4 with Albuterol/Atrovent. Treatments tolerated well, with no adverse reactions noted. Sxn'd and lavaged as needed. Suctioned small amounts of thick yellowish secretions. HME changed & trach care done. PPE used. No signs or symptoms of respiratory distress. Ventilator alarm parameters checked, on and audible. Vent plugged into red emergency outlet. Bag/valve/mask and backup trach at bedside. Will continue to monitor.
[2018-12-28 20:00] VITALS: BP 103/53
[2018-12-28] MEDS: FOLIC ACID 1 MG TABLET GT SCH (20:37)
[2018-12-28] MEDS: THIAMINE HCL 100 MG TABLET GT SCH (20:38)
[2018-12-28] MEDS: CHOLECALCIFEROL 1,000 UNIT TABLET GT SCH (20:38)
[2018-12-29] MEDS: IPRATROPIUM BROMIDE 0.5 MG/2.5 ML NEBU NEB SCH ×6 (03:49→22:42)
[2018-12-29] MEDS: ALBUTEROL SULFATE 2.5 MG/3 ML NEBU NEB SCH ×6 (03:49→22:42)
[2018-12-29] MEDS: VITAL AF 1.2 1,000 ML LIQUID GT PRN (05:25)
[2018-12-29] MEDS: BACLOFEN 20 MG TABLET GT SCH ×3 (06:17→21:14)
[2018-12-29] MEDS: OMEPRAZOLE 20 MG CAPSULE.DR GT SCH (06:17)
[2018-12-29 08:00] VITALS: BP 110/55
[2018-12-29] MEDS: LEVETIRACETAM 500 MG/5 ML LIQUID UDC GT SCH ×2 (09:05→21:13)
[2018-12-29] MEDS: ACIDOPHILUS/BULGARICUS CHEW TAB GT SCH ×2 (09:05→21:12)
[2018-12-29] MEDS: DESMOPRESSIN 0.1 MG TABLET GT SCH (09:05)
[2018-12-29] MEDS: HYDROGEN PEROXIDE 3% 118 ML BOTTLE TP SCH ×2 (09:06→21:34)
[2018-12-29] MEDS: COD LIVER OIL/ZINC OXIDE OINT 113 GM TUBE TP SCH ×2 (09:06→21:14)
[2018-12-29] MEDS: NEOMY/BACITRA/POLYMYXIN B OINT UD PACKET TP SCH (09:07)
[2018-12-29] MEDS: NORMAL SALINE FLUSH 10 ML DISP.SYRIN IV SCH ×2 (09:17→21:00)
[2018-12-29] MEDS: CEFEPIME HCL 1 G in IV DEXTROSE 5% 50 ML IV SCH ×2 (09:17→21:02)
--- NOTE | 2018-12-29 15:00 | NUR ---
Seen and examined by Betsy Benavides for nephrology consult with new orders noted,and carried out.
--- NOTE | 2018-12-29 18:31 | NUR ---
Continue on ivatb,Cefepime,no adverse reaction noted ,picc line triple lumen R upper arm intact,no s/s of infection noted.
[2018-12-29] MEDS: FOLIC ACID 1 MG TABLET GT SCH (21:12)
[2018-12-29] MEDS: THIAMINE HCL 100 MG TABLET GT SCH (21:13)
[2018-12-29] MEDS: CHOLECALCIFEROL 1,000 UNIT TABLET GT SCH (21:14)
[2018-12-29 21:50] VITALS: BP 124/57
--- NOTE | 2018-12-30 00:46 | NUR ---
Afebrile, still on Cefepime IV for sepsis, no adverse reactions noted. KILYE PICC i line is intact, no loose BM at this time.On contact isolation precaution for c-diff in the stool, good luke care rendered, kept clean and comfortable, will continue monitor.
[2018-12-30] MEDS: VITAL AF 1.2 1,000 ML LIQUID GT PRN (01:23)
[2018-12-30] MEDS: ALBUTEROL SULFATE 2.5 MG/3 ML NEBU NEB SCH ×6 (03:25→22:38)
[2018-12-30] MEDS: IPRATROPIUM BROMIDE 0.5 MG/2.5 ML NEBU NEB SCH ×6 (03:25→22:38)
[2018-12-30] MEDS: BACLOFEN 20 MG TABLET GT SCH ×3 (06:24→21:21)
[2018-12-30] MEDS: OMEPRAZOLE 20 MG CAPSULE.DR GT SCH (06:24)
[2018-12-30 06:29] LABS: BASOPHILS % (AUTO) 0.3 % (0.0-2.0); EOSINOPHILS # (AUTO) 0.1 K/uL (0.0-0.7); EOSINOPHILS % (AUTO) 0.7 % (0.0-7.0); HEMATOCRIT 22.6 % (31.2-41.9); HEMOGLOBIN 7.7 g/dL (10.9-14.3); LYMPHOCYTES # (AUTO) 1.1 K/uL (20.0-40.0); LYMPHOCYTES % (AUTO) 15.4 % (20.5-51.5); MEAN CORPUSCULAR HEMOGLOBIN 30.5 uug (24.7-32.8); MEAN CORPUSCULAR HGB CONC 34 g/dL (32.3-35.6); MONOCYTES # (AUTO) 0.3 K/uL (2.0-10.0); MONOCYTES % (AUTO) 4.4 % (0.0-11.0); NEUTROPHILS # (AUTO) 5.4 K/uL (1.8-8.9); NEUTROPHILS % (AUTO) 79.2 % (38.5-71.5); PLATELET COUNT (AUTO) 64 K/uL (179-408); RED BLOOD CELL COUNT(AUTO) 2.54 MIL/uL (3.63-4.92); WHITE BLOOD COUNT (AUTO) 6.9 K/uL (3.8-11.8)
[2018-12-30 07:00] LABS: ALANINE AMINOTRANSFERASE 47 U/L (14-59); ALKALINE PHOSPHATASE 103 U/L (50-136); ASPARTATE AMINOTRANSFERASE 49 U/L (15-37); BILIRUBIN,TOTAL 0.4 mg/dL (0.2-1.0); CARBON DIOXIDE 25 mmol/L (21-32); CHLORIDE 91 mmol/L (98-107); CREATININE 0.4 mg/dL (0.6-1.3); GLUCOSE 78 mg/dL (74-106); MAGNESIUM 1.5 mg/dL (1.8-2.4); PHOSPHOROUS 4.1 mg/dL (2.5-4.9); TOTAL PROTEIN, SERUM 6.7 g/dL (6.4-8.2); UREA NITROGEN, BLOOD 16 mg/dL (7-18)
[2018-12-30 08:00] VITALS: BP 109/50
[2018-12-30] MEDS: COD LIVER OIL/ZINC OXIDE OINT 113 GM TUBE TP SCH ×2 (09:14→21:35)
[2018-12-30] MEDS: NORMAL SALINE FLUSH 10 ML DISP.SYRIN IV SCH ×2 (09:19→21:00)
[2018-12-30] MEDS: CEFEPIME HCL 1 G in IV DEXTROSE 5% 50 ML IV SCH ×2 (09:19→21:00)
[2018-12-30] MEDS: ACIDOPHILUS/BULGARICUS CHEW TAB GT SCH ×2 (09:30→21:17)
[2018-12-30] MEDS: HYDROGEN PEROXIDE 3% 118 ML BOTTLE TP SCH ×2 (09:30→21:00)
[2018-12-30] MEDS: LEVETIRACETAM 500 MG/5 ML LIQUID UDC GT SCH ×2 (09:31→21:20)
[2018-12-30] MEDS: DESMOPRESSIN 0.1 MG TABLET GT SCH (09:32)
[2018-12-30] MEDS ORDERED: MAGNESIUM OXIDE 400 MG TABLET GT ONE (14:00)
--- NOTE | 2018-12-30 15:46 | NUR ---
Patient's annual dental exam has been scheduled for 01/17/2019.
[2018-12-30 20:00] VITALS: BP 120/56
[2018-12-30] MEDS: THIAMINE HCL 100 MG TABLET GT SCH (21:20)
[2018-12-30] MEDS: FOLIC ACID 1 MG TABLET GT SCH (21:20)
[2018-12-30] MEDS: CHOLECALCIFEROL 1,000 UNIT TABLET GT SCH (21:21)
--- NOTE | 2018-12-30 23:30 | NUR ---
Still on Cefepime IV for sepsis, no adverse reactions noted, afebrile, KILEY PICC i line is intact.On contact isolation precaution for c-diff in the stool, no diarrhea at this time, good luke care rendered, kept clean and comfortable, will continue monitor.
[2018-12-31] MEDS: VITAL AF 1.2 1,000 ML LIQUID GT PRN (01:16)
[2018-12-31] MEDS: IPRATROPIUM BROMIDE 0.5 MG/2.5 ML NEBU NEB SCH ×6 (03:30→22:31)
[2018-12-31] MEDS: ALBUTEROL SULFATE 2.5 MG/3 ML NEBU NEB SCH ×6 (03:30→22:31)
[2018-12-31] MEDS: OMEPRAZOLE 20 MG CAPSULE.DR GT SCH (05:50)
[2018-12-31] MEDS: BACLOFEN 20 MG TABLET GT SCH ×3 (05:50→22:06)
[2018-12-31 08:00] VITALS: BP 117/65
[2018-12-31] MEDS: ACIDOPHILUS/BULGARICUS CHEW TAB GT SCH ×2 (08:08→20:23)
[2018-12-31] MEDS: HYDROGEN PEROXIDE 3% 118 ML BOTTLE TP SCH ×2 (08:09→21:31)
[2018-12-31] MEDS: LEVETIRACETAM 500 MG/5 ML LIQUID UDC GT SCH ×2 (08:09→20:23)
[2018-12-31] MEDS: COD LIVER OIL/ZINC OXIDE OINT 113 GM TUBE TP SCH ×2 (08:09→20:24)
[2018-12-31] MEDS: NORMAL SALINE FLUSH 10 ML DISP.SYRIN IV SCH ×2 (08:11→20:24)
[2018-12-31] MEDS: DESMOPRESSIN 0.1 MG TABLET GT SCH (08:11)
[2018-12-31] MEDS: CEFEPIME HCL 1 G in IV DEXTROSE 5% 50 ML IV SCH ×2 (09:20→21:43)
--- NOTE | 2018-12-31 15:56 | NUR ---
PT ON HT-50 VENT WITH NO RESPIRATORY DISTRESS NOTED. NO VENT CHANGES MADE. BVM AND BACK UP TRACH AT BEDSIDE. WILL CONTINUE TO MONITOR.
[2018-12-31 20:00] VITALS: BP 126/67
[2018-12-31] MEDS: CHOLECALCIFEROL 1,000 UNIT TABLET GT SCH (20:23)
[2018-12-31] MEDS: FOLIC ACID 1 MG TABLET GT SCH (20:23)
[2018-12-31] MEDS: THIAMINE HCL 100 MG TABLET GT SCH (20:23)
--- NOTE | 2019-01-01 00:01 | NUR ---
Afebrile, still on Cefepime IV for sepsis, no adverse reactions noted, on contact isolation for c-diff in the stool, no diarrhea noted at this time, good luke care rendered. KILEY PICC line is intact and patent, no signs of any distress noted, kept clean and comfortable.
[2019-01-01] MEDS: IPRATROPIUM BROMIDE 0.5 MG/2.5 ML NEBU NEB SCH ×6 (02:30→22:31)
[2019-01-01] MEDS: ALBUTEROL SULFATE 2.5 MG/3 ML NEBU NEB SCH ×6 (02:30→22:31)
[2019-01-01] MEDS: BACLOFEN 20 MG TABLET GT SCH ×3 (05:42→21:34)
[2019-01-01] MEDS: OMEPRAZOLE 20 MG CAPSULE.DR GT SCH (05:42)
--- NOTE | 2019-01-01 07:48 | NUR ---
PT RECEIVED TRACH TO VENT ON SETTINGS OF SIMV 12, VT 500, PEEP +5, PS 10, AND 28% FIO2. SHILEY #6 TRACH IS PATENT AND SECURE. VENT PARAMETERS AND ALARMS CHECKED, ALARMS ARE AUDIBLE. IN-LINE TX TOLERATED WELL, NO ADVERSE REACTION NOTED. PT IS TOLERATING VENT SETTINGS WELL, NO RESP. DISTRESS NOTED AT THIS TIME. AMBU-BAG AT BEDSIDE. VENT PLUGGED INTO RED OUTLET. SUCTION PRN. WILL CONTINUE TO MONITOR.
[2019-01-01 08:30] VITALS: BP 103/50
[2019-01-01] MEDS: DESMOPRESSIN 0.1 MG TABLET GT SCH (08:52)
[2019-01-01] MEDS: ACIDOPHILUS/BULGARICUS CHEW TAB GT SCH ×2 (08:52→20:12)
[2019-01-01] MEDS: LEVETIRACETAM 500 MG/5 ML LIQUID UDC GT SCH ×2 (08:52→20:13)
[2019-01-01] MEDS: COD LIVER OIL/ZINC OXIDE OINT 113 GM TUBE TP SCH ×2 (08:53→20:13)
[2019-01-01] MEDS: CEFEPIME HCL 1 G in IV DEXTROSE 5% 50 ML IV SCH ×2 (08:59→21:26)
[2019-01-01] MEDS: NORMAL SALINE FLUSH 10 ML DISP.SYRIN IV SCH ×2 (09:00→21:26)
[2019-01-01] MEDS: HYDROGEN PEROXIDE 3% 118 ML BOTTLE TP SCH ×2 (09:33→18:49)
[2019-01-01] MEDS: VITAL AF 1.2 1,000 ML LIQUID GT PRN (18:16)
[2019-01-01] MEDS: THIAMINE HCL 100 MG TABLET GT SCH (20:13)
[2019-01-01] MEDS: CHOLECALCIFEROL 1,000 UNIT TABLET GT SCH (20:13)
[2019-01-01] MEDS: FOLIC ACID 1 MG TABLET GT SCH (20:13)
[2019-01-01 20:17] VITALS: BP 128/67
--- NOTE | 2019-01-02 01:35 | NUR ---
continue on cefepime 1gm iv for sepsis, no adverse reaction noted,afebrile, no respiratory distress noted.
[2019-01-02] MEDS: IPRATROPIUM BROMIDE 0.5 MG/2.5 ML NEBU NEB SCH ×6 (04:17→22:58)
[2019-01-02] MEDS: ALBUTEROL SULFATE 2.5 MG/3 ML NEBU NEB SCH ×6 (04:17→22:58)
[2019-01-02] MEDS: BACLOFEN 20 MG TABLET GT SCH ×3 (05:29→21:28)
[2019-01-02] MEDS: OMEPRAZOLE 20 MG CAPSULE.DR GT SCH (05:29)
--- NOTE | 2019-01-02 07:12 | NUR ---
PT RECEIVED TRACH TO VENT ON SETTINGS OF SIMV 12, VT 500, PEEP +5, PS 10, AND 28% FIO2. SHILEY #6 TRACH IS PATENT AND SECURE. VENT PARAMETERS AND ALARMS CHECKED, ALARMS ARE AUDIBLE. IN-LINE TX TOLERATED WELL, NO ADVERSE REACTION NOTED. TRACH CARE PERFORMED. PT IS TOLERATING VENT SETTINGS WELL, NO RESP. DISTRESS NOTED AT THIS TIME. AMBU-BAG AT BEDSIDE. VENT PLUGGED INTO RED OUTLET. SUCTION PRN. WILL CONTINUE TO MONITOR.
[2019-01-02 08:00] VITALS: BP 117/54
[2019-01-02] MEDS: HYDROGEN PEROXIDE 3% 118 ML BOTTLE TP SCH ×2 (08:57→21:07)
[2019-01-02] MEDS: DESMOPRESSIN 0.1 MG TABLET GT SCH (09:00)
[2019-01-02] MEDS: ACIDOPHILUS/BULGARICUS CHEW TAB GT SCH ×2 (09:00→20:09)
[2019-01-02] MEDS: COD LIVER OIL/ZINC OXIDE OINT 113 GM TUBE TP SCH ×2 (09:00→20:09)
[2019-01-02] MEDS: LEVETIRACETAM 500 MG/5 ML LIQUID UDC GT SCH ×2 (09:00→20:09)
[2019-01-02] MEDS: CEFEPIME HCL 1 G in IV DEXTROSE 5% 50 ML IV SCH ×2 (09:52→21:13)
[2019-01-02] MEDS: NORMAL SALINE FLUSH 10 ML DISP.SYRIN IV SCH ×2 (09:52→21:19)
--- NOTE | 2019-01-02 15:21 | NUR ---
Spoke to Dr Spaulding aware pt l side of the head appear more bulky, vital signs are stable,pupils are equal,we need to f/u with neurosurgeon consult as ordered by Dr Wagner.
[2019-01-02] MEDS: VITAL AF 1.2 1,000 ML LIQUID GT PRN (18:21)
[2019-01-02] MEDS: CHOLECALCIFEROL 1,000 UNIT TABLET GT SCH (20:09)
[2019-01-02] MEDS: THIAMINE HCL 100 MG TABLET GT SCH (20:09)
[2019-01-02] MEDS: FOLIC ACID 1 MG TABLET GT SCH (20:09)
--- NOTE | 2019-01-02 20:21 | NUR ---
Received pt on HT-50 ventilator with the following settings of SIMV-12, Vt-500, PEEP+5, PS-10, FIO2-28%, trached with Shiley#6 DCT trach, which is in the place and secure. No s/s of respiratory distress noted. Airway care done, pt responded to physical stimuli. In-line HHN tx with 2.5mg Albuterol+0.5mg Atrovent given, no adverse reaction noted. HME changed. Resus. bag and back up trach at bedside. Vent and alarms checked and reset.
[2019-01-02 21:19] VITALS: BP 142/70
--- NOTE | 2019-01-02 22:52 | NUR ---
Pt receiving IV Maxepime 1gm for sepsis. PICC line on KILEY clean, without redness. Afebrile. No signs of adverse effects from IV noted. Isolation for Cdiff discontinued.
[2019-01-03] MEDS: ALBUTEROL SULFATE 2.5 MG/3 ML NEBU NEB SCH ×6 (03:08→23:10)
[2019-01-03] MEDS: IPRATROPIUM BROMIDE 0.5 MG/2.5 ML NEBU NEB SCH ×6 (03:08→23:10)
[2019-01-03] MEDS: OMEPRAZOLE 20 MG CAPSULE.DR GT SCH (05:45)
[2019-01-03] MEDS: BACLOFEN 20 MG TABLET GT SCH ×3 (05:45→21:09)
--- NOTE | 2019-01-03 06:35 | NUR ---
PICC line on right upper arm, triple lumen open ended, dressing changed, biopatch replaced. With blood return, flushed with saline per protocol.
[2019-01-03 08:00] VITALS: BP 114/53
[2019-01-03] MEDS: CEFEPIME HCL 1 G in IV DEXTROSE 5% 50 ML IV SCH ×2 (08:29→21:00)
[2019-01-03] MEDS: NORMAL SALINE FLUSH 10 ML DISP.SYRIN IV SCH ×2 (08:30→21:00)
[2019-01-03] MEDS: COD LIVER OIL/ZINC OXIDE OINT 113 GM TUBE TP SCH ×2 (08:38→20:17)
[2019-01-03] MEDS: ACIDOPHILUS/BULGARICUS CHEW TAB GT SCH ×2 (08:38→20:17)
[2019-01-03] MEDS: DESMOPRESSIN 0.1 MG TABLET GT SCH (08:38)
[2019-01-03] MEDS: HYDROGEN PEROXIDE 3% 118 ML BOTTLE TP SCH ×2 (08:38→21:00)
[2019-01-03] MEDS: LEVETIRACETAM 500 MG/5 ML LIQUID UDC GT SCH ×2 (08:38→20:17)
[2019-01-03] MEDS: THIAMINE HCL 100 MG TABLET GT SCH (20:17)
[2019-01-03] MEDS: FOLIC ACID 1 MG TABLET GT SCH (20:17)
[2019-01-03] MEDS: CHOLECALCIFEROL 1,000 UNIT TABLET GT SCH (20:17)
[2019-01-03 20:50] VITALS: BP 119/77
[2019-01-04] MEDS: IPRATROPIUM BROMIDE 0.5 MG/2.5 ML NEBU NEB SCH ×6 (03:50→22:30)
[2019-01-04] MEDS: ALBUTEROL SULFATE 2.5 MG/3 ML NEBU NEB SCH ×6 (03:50→22:30)
[2019-01-04] MEDS: BACLOFEN 20 MG TABLET GT SCH ×3 (05:58→22:37)
[2019-01-04] MEDS: OMEPRAZOLE 20 MG CAPSULE.DR GT SCH (05:58)
[2019-01-04 06:35] LABS: BASOPHILS % (AUTO) 0.7 % (0.0-2.0); EOSINOPHILS # (AUTO) 0.1 K/uL (0.0-0.7); EOSINOPHILS % (AUTO) 1.9 % (0.0-7.0); HEMATOCRIT 24.4 % (31.2-41.9); LYMPHOCYTES # (AUTO) 1.4 K/uL (20.0-40.0); LYMPHOCYTES % (AUTO) 22.4 % (20.5-51.5); MEAN CORPUSCULAR HEMOGLOBIN 30.3 uug (24.7-32.8); MEAN CORPUSCULAR HGB CONC 33 g/dL (32.3-35.6); MEAN CORPUSCULAR VOLUME 91.9 fL (75.5-95.3); MONOCYTES # (AUTO) 0.4 K/uL (2.0-10.0); MONOCYTES % (AUTO) 7.3 % (0.0-11.0); NEUTROPHILS # (AUTO) 4.2 K/uL (1.8-8.9); NEUTROPHILS % (AUTO) 67.7 % (38.5-71.5); PLATELET COUNT (AUTO) 118 K/uL (179-408); RED BLOOD CELL COUNT(AUTO) 2.65 MIL/uL (3.63-4.92); WHITE BLOOD COUNT (AUTO) 6.1 K/uL (3.8-11.8)
[2019-01-04 06:40] LABS: CARBON DIOXIDE 26 mmol/L (21-32); CHLORIDE 103 mmol/L (98-107); CREATININE 0.4 mg/dL (0.6-1.3); GLUCOSE 95 mg/dL (74-106); MAGNESIUM 1.8 mg/dL (1.8-2.4); PHOSPHOROUS 4.5 mg/dL (2.5-4.9); UREA NITROGEN, BLOOD 20 mg/dL (7-18)
--- NOTE | 2019-01-04 08:00 | NUR ---
Pt received in semi saldana position, obtunded, unable to communicate, and on continuous mechanical ventilation via Shiley 6 DCT trach. Pt is on [place] HT-50 ventilator with ordered settings of SIMV-12, VT-500, PEEP+5, PS-10, FIO2-28% Tolerating vent settings well. SpO2-100& Trach is patent and secured. Minimal occluding volume technique used to assess cuff inflation. In-line nebulizer treatments given as ordered, Q4 with Albuterol/Atrovent. Treatments tolerated well, with no adverse reactions noted. Sxn'd and lavaged as needed. Suctioned small amounts of thick yellowish secretions. HME changed & trach care done. PPE used. No signs or symptoms of respiratory distress. Ventilator alarm parameters checked, on and audible. Vent plugged into red emergency outlet. Bag/valve/mask and backup trach at bedside. Will continue to monitor.
[2019-01-04 08:01] VITALS: BP 121/69
[2019-01-04] MEDS: CEFEPIME HCL 1 G in IV DEXTROSE 5% 50 ML IV SCH ×2 (08:11→20:52)
[2019-01-04] MEDS: COD LIVER OIL/ZINC OXIDE OINT 113 GM TUBE TP SCH ×2 (08:22→21:00)
[2019-01-04] MEDS: ACIDOPHILUS/BULGARICUS CHEW TAB GT SCH ×2 (08:22→20:09)
[2019-01-04] MEDS: DESMOPRESSIN 0.1 MG TABLET GT SCH (08:22)
[2019-01-04] MEDS: LEVETIRACETAM 500 MG/5 ML LIQUID UDC GT SCH ×2 (08:22→20:09)
[2019-01-04] MEDS: NORMAL SALINE FLUSH 10 ML DISP.SYRIN IV SCH ×2 (09:00→20:52)
[2019-01-04] MEDS: HYDROGEN PEROXIDE 3% 118 ML BOTTLE TP SCH ×2 (09:58→19:07)
--- NOTE | 2019-01-04 14:47 | NUR ---
Pharmacy Update from Today's 01/04/19 IDT Meeting Note: Patient was transferred from subacute floor to CCU 11/25-12/14 d/t recurrent fevers and subsequently found with asp PNA with empyema resulting in chest tube placement and drainage. Pt also found with c. diff. Pt was stabilized, treated, and transferred back on abx cefepime IV, vanco po, flagyl for x4 more weeks per ID. VS: Temp 97 BP 119/77 HR 66 LABS: (from 01/04/19) Wbc 6.1H/H 8/24.4Plt 118 Na 141K 4.0Cl 103CO2 26BUN/Scr 20/0.4 BS 95Ca 9.5phos 4.5Mg 1.8 MEDICATION USE REVIEWED: > Pt not on any anti-psych medications > Pt continues Keppra 250mg q12h since 11/09/18; CrCl >100ml/min, renal function ok for current dose. No seizure episodes noted. > Pt on DDAVP 0.05mg GT daily since 12/30/18, changed per MD from q12h, for diabetes insipidus PRN MED USAGE: (Since readmit) Tylenol for pain/temp used x0 Artificial Tears used x0 Bisacodyl Supp used x5 NEW ORDERS NOTED: > DDAVP 0.05mg q12h decreased to daily 12/30/18. Na now normalized > flagyl po for c diff d/c'd 12/24, diarrhea/c diff resolved and pt cleared isolation Patient was reviewed and discussed in depth with no medication issues or concerns at this time noted. Rx reported recent change in DDAVP dose after previously recommending decrease last IDT d/t hyponatremia, Na now normalized after change. No further recommendations at this time, will continue to follow
--- NOTE | 2019-01-04 17:01 | NUR ---
INTERDISCIPLINARY PLAN OF CARE CONFERENCE was held today. Patient's mother was unable to attend the meeting. Dr. Wagner and the Interdisciplinary Team reviewed the current plan of care in detail. RN reported on patient's current medical condition and current treatments. Isolation precautions have been discontinued. See RN IDT conference notes. See also all other disciplines IDT notes and physician's progress notes for additional details.
[2019-01-04] MEDS: THIAMINE HCL 100 MG TABLET GT SCH (20:09)
[2019-01-04] MEDS: FOLIC ACID 1 MG TABLET GT SCH (20:09)
[2019-01-04] MEDS: CHOLECALCIFEROL 1,000 UNIT TABLET GT SCH (20:10)
[2019-01-04 20:26] VITALS: BP 102/64
--- NOTE | 2019-01-04 22:27 | NUR ---
continue on cefepime 1gm iv for sepsis, no adverse reaction noted, afebrile.
[2019-01-05] MEDS: IPRATROPIUM BROMIDE 0.5 MG/2.5 ML NEBU NEB SCH ×6 (02:30→23:12)
[2019-01-05] MEDS: ALBUTEROL SULFATE 2.5 MG/3 ML NEBU NEB SCH ×6 (02:30→23:12)
[2019-01-05] MEDS: OMEPRAZOLE 20 MG CAPSULE.DR GT SCH (05:55)
[2019-01-05] MEDS: BACLOFEN 20 MG TABLET GT SCH ×3 (05:55→21:49)
[2019-01-05 08:00] VITALS: BP 102/59
[2019-01-05] MEDS: ACIDOPHILUS/BULGARICUS CHEW TAB GT SCH ×2 (08:10→20:11)
[2019-01-05] MEDS: LEVETIRACETAM 500 MG/5 ML LIQUID UDC GT SCH ×2 (08:10→20:12)
[2019-01-05] MEDS: DESMOPRESSIN 0.1 MG TABLET GT SCH (08:10)
[2019-01-05] MEDS: NORMAL SALINE FLUSH 10 ML DISP.SYRIN IV SCH ×2 (08:17→21:12)
[2019-01-05] MEDS: CEFEPIME HCL 1 G in IV DEXTROSE 5% 50 ML IV SCH ×2 (08:17→21:12)
[2019-01-05] MEDS: HYDROGEN PEROXIDE 3% 118 ML BOTTLE TP SCH ×2 (09:00→18:46)
[2019-01-05] MEDS: FOLIC ACID 1 MG TABLET GT SCH (20:12)
[2019-01-05] MEDS: CHOLECALCIFEROL 1,000 UNIT TABLET GT SCH (20:13)
[2019-01-05] MEDS: THIAMINE HCL 100 MG TABLET GT SCH (20:13)
--- NOTE | 2019-01-05 20:14 | NUR ---
Pt received on [place] HT-50 settings SIMV 12, VT 500, PSV 10, PEEP +5 and FIO2-28%. No resp. distress noted. Shiley 6 DCT is patent and secure; Backup Shiley 6 DCT and resusc. bag are both at bedside. Pt to be monitored throughout the shift and PRN SX. HT-50 alarm parameters have been checked and remain audible.
[2019-01-05] MEDS: ACETAMINOPHEN 650 MG/20 ML UDC- SA PATIENTS-PAIN ONLY GT PRN (20:30)
[2019-01-05 21:06] VITALS: BP 100/50
--- NOTE | 2019-01-05 22:54 | NUR ---
continue on cefepime 1gm iv for sepsis, no adverse reaction noted, right upper arm triple lumen picc line patent, flushed per protocol.
[2019-01-06] MEDS: IPRATROPIUM BROMIDE 0.5 MG/2.5 ML NEBU NEB SCH ×6 (02:30→22:30)
[2019-01-06] MEDS: ALBUTEROL SULFATE 2.5 MG/3 ML NEBU NEB SCH ×6 (02:30→22:30)
[2019-01-06] MEDS: BACLOFEN 20 MG TABLET GT SCH ×3 (05:19→21:41)
[2019-01-06] MEDS: OMEPRAZOLE 20 MG CAPSULE.DR GT SCH (05:19)
[2019-01-06] MEDS: VITAL AF 1.2 1,000 ML LIQUID GT PRN (06:00)
[2019-01-06 07:16] LABS: BASOPHILS % (AUTO) 0.7 % (0.0-2.0); EOSINOPHILS # (AUTO) 0.1 K/uL (0.0-0.7); EOSINOPHILS % (AUTO) 1.9 % (0.0-7.0); HEMATOCRIT 24.5 % (31.2-41.9); HEMOGLOBIN 8.3 g/dL (10.9-14.3); LYMPHOCYTES # (AUTO) 1.3 K/uL (20.0-40.0); LYMPHOCYTES % (AUTO) 18.3 % (20.5-51.5); MEAN CORPUSCULAR HGB CONC 34 g/dL (32.3-35.6); MEAN CORPUSCULAR VOLUME 91.7 fL (75.5-95.3); MONOCYTES # (AUTO) 0.5 K/uL (2.0-10.0); MONOCYTES % (AUTO) 7.7 % (0.0-11.0); NEUTROPHILS # (AUTO) 4.9 K/uL (1.8-8.9); NEUTROPHILS % (AUTO) 71.4 % (38.5-71.5); PLATELET COUNT (AUTO) 138 K/uL (179-408); RED BLOOD CELL COUNT(AUTO) 2.67 MIL/uL (3.63-4.92); WHITE BLOOD COUNT (AUTO) 6.9 K/uL (3.8-11.8)
[2019-01-06 07:19] LABS: ALANINE AMINOTRANSFERASE 207 U/L (14-59); ALKALINE PHOSPHATASE 244 U/L (50-136); ASPARTATE AMINOTRANSFERASE 59 U/L (15-37); BILIRUBIN,TOTAL 0.5 mg/dL (0.2-1.0); CARBON DIOXIDE 27 mmol/L (21-32); CHLORIDE 105 mmol/L (98-107); CREATININE 0.5 mg/dL (0.6-1.3); GLUCOSE 79 mg/dL (74-106); MAGNESIUM 1.7 mg/dL (1.8-2.4); POTASSIUM 3.9 mmol/L (3.5-5.1); TOTAL PROTEIN, SERUM 8.1 g/dL (6.4-8.2); UREA NITROGEN, BLOOD 23 mg/dL (7-18)
[2019-01-06 08:00] VITALS: BP 125/65
[2019-01-06] MEDS: DESMOPRESSIN 0.1 MG TABLET GT SCH (08:36)
[2019-01-06] MEDS: ACIDOPHILUS/BULGARICUS CHEW TAB GT SCH ×2 (08:36→20:11)
[2019-01-06] MEDS: LEVETIRACETAM 500 MG/5 ML LIQUID UDC GT SCH ×2 (08:36→20:11)
[2019-01-06] MEDS: NORMAL SALINE FLUSH 10 ML DISP.SYRIN IV SCH ×2 (09:23→21:02)
[2019-01-06] MEDS: CEFEPIME HCL 1 G in IV DEXTROSE 5% 50 ML IV SCH ×2 (09:23→21:02)
[2019-01-06] MEDS: HYDROGEN PEROXIDE 3% 118 ML BOTTLE TP SCH ×2 (09:44→18:46)
[2019-01-06] MEDS ORDERED: MAGNESIUM OXIDE 400 MG TABLET PO ONE (17:00)
[2019-01-06] MEDS: FOLIC ACID 1 MG TABLET GT SCH (20:11)
[2019-01-06 20:12] VITALS: BP 121/69
[2019-01-06] MEDS: THIAMINE HCL 100 MG TABLET GT SCH (20:12)
[2019-01-06] MEDS: CHOLECALCIFEROL 1,000 UNIT TABLET GT SCH (20:12)
--- NOTE | 2019-01-06 21:53 | NUR ---
continue on cefepime 1gm iv for sepsis, no adverse reaction noted, right upper arm picc line triple lumen patent and flushed per protocol.
[2019-01-07] MEDS: ALBUTEROL SULFATE 2.5 MG/3 ML NEBU NEB SCH ×6 (02:30→23:26)
[2019-01-07] MEDS: IPRATROPIUM BROMIDE 0.5 MG/2.5 ML NEBU NEB SCH ×6 (02:30→23:26)
[2019-01-07] MEDS: VITAL AF 1.2 1,000 ML LIQUID GT PRN (04:01)
[2019-01-07] MEDS: BACLOFEN 20 MG TABLET GT SCH ×3 (05:51→21:28)
[2019-01-07] MEDS: OMEPRAZOLE 20 MG CAPSULE.DR GT SCH (05:51)
[2019-01-07 08:02] VITALS: BP 115/57
[2019-01-07] MEDS: ACIDOPHILUS/BULGARICUS CHEW TAB GT SCH ×2 (08:35→20:09)
[2019-01-07] MEDS: LEVETIRACETAM 500 MG/5 ML LIQUID UDC GT SCH ×2 (08:35→20:09)
[2019-01-07] MEDS: DESMOPRESSIN 0.1 MG TABLET GT SCH (08:35)
[2019-01-07] MEDS: CEFEPIME HCL 1 G in IV DEXTROSE 5% 50 ML IV SCH ×2 (09:00→20:34)
[2019-01-07] MEDS: NORMAL SALINE FLUSH 10 ML DISP.SYRIN IV SCH ×2 (09:00→20:09)
[2019-01-07] MEDS: HYDROGEN PEROXIDE 3% 118 ML BOTTLE TP SCH ×2 (09:22→20:09)
[2019-01-07 20:06] VITALS: BP 119/66
[2019-01-07] MEDS: CHOLECALCIFEROL 1,000 UNIT TABLET GT SCH (20:09)
[2019-01-07] MEDS: FOLIC ACID 1 MG TABLET GT SCH (20:09)
[2019-01-07] MEDS: THIAMINE HCL 100 MG TABLET GT SCH (20:09)
--- NOTE | 2019-01-07 21:49 | NUR ---
Remains on Cefepime IV for Sepsis, no adverse reactions noted. Afebrile, KILEY PICC is intact and no complications noted.Fluids given as ordered, bhatt catheter is draining well to yellow urine, good luke care rendered, kept clean and comfortable.
[2019-01-08] MEDS: ALBUTEROL SULFATE 2.5 MG/3 ML NEBU NEB SCH ×6 (03:10→23:00)
[2019-01-08] MEDS: IPRATROPIUM BROMIDE 0.5 MG/2.5 ML NEBU NEB SCH ×6 (03:10→23:00)
[2019-01-08] MEDS: BACLOFEN 20 MG TABLET GT SCH ×3 (05:41→21:04)
[2019-01-08] MEDS: OMEPRAZOLE 20 MG CAPSULE.DR GT SCH (05:41)
[2019-01-08] MEDS: VITAL AF 1.2 1,000 ML LIQUID GT PRN (05:42)
--- NOTE | 2019-01-08 07:25 | NUR ---
PT RECEIVED ON CONTINUOS VENT SIMV 12 VT 500 PEEP 5 PS 10 FIO2 28%. TRACH IN PLACED AND SECURED WITH TRACH TIE. TRACH CARE DONE WITHOUT COMPLICATIONS NOTED. BACK UP TRACH AND AMBU BAG AT BEDSIDE. IN LINE TX GIVEN WITH UD ALBUTEROL/UD ATROVENT ORDERED. SUCTION LAVAGE PRN. VENT CHECKED, ALARMS WORKING WELL AND AUDIBLE. NO DISTRESS NOTED AT THIS TIME. WILL CONTINUE TO MONITOR.
[2019-01-08 08:03] VITALS: BP 113/65
[2019-01-08] MEDS: ACIDOPHILUS/BULGARICUS CHEW TAB GT SCH ×2 (08:19→20:28)
[2019-01-08] MEDS: LEVETIRACETAM 500 MG/5 ML LIQUID UDC GT SCH ×2 (08:19→20:28)
[2019-01-08] MEDS: DESMOPRESSIN 0.1 MG TABLET GT SCH (08:19)
[2019-01-08] MEDS: CEFEPIME HCL 1 G in IV DEXTROSE 5% 50 ML IV SCH ×2 (09:00→20:29)
[2019-01-08] MEDS: HYDROGEN PEROXIDE 3% 118 ML BOTTLE TP SCH ×2 (09:00→20:29)
[2019-01-08] MEDS: NORMAL SALINE FLUSH 10 ML DISP.SYRIN IV SCH ×2 (09:00→20:29)
[2019-01-08 20:06] VITALS: BP 115/65
[2019-01-08] MEDS: FOLIC ACID 1 MG TABLET GT SCH (20:28)
[2019-01-08] MEDS: THIAMINE HCL 100 MG TABLET GT SCH (20:28)
[2019-01-08] MEDS: CHOLECALCIFEROL 1,000 UNIT TABLET GT SCH (20:28)
--- NOTE | 2019-01-08 21:29 | NUR ---
Afebrile, still on Cefepime IV for sepsis, no adverse reactions noted, KILEY PICC line is intact and patent. Gt feeding tolerating well, no nausea/ vomiting noted, abdomen is soft and non-distended, bhatt catheter is draining well to yellow urine, turned and repositioned, kept clean and comfortable.
[2019-01-09] MEDS: IPRATROPIUM BROMIDE 0.5 MG/2.5 ML NEBU NEB SCH ×6 (03:32→22:30)
[2019-01-09] MEDS: ALBUTEROL SULFATE 2.5 MG/3 ML NEBU NEB SCH ×6 (03:32→22:30)
[2019-01-09] MEDS: OMEPRAZOLE 20 MG CAPSULE.DR GT SCH (05:39)
[2019-01-09] MEDS: BACLOFEN 20 MG TABLET GT SCH ×3 (05:39→21:26)
[2019-01-09] MEDS: VITAL AF 1.2 1,000 ML LIQUID GT PRN (05:40)
[2019-01-09 08:00] VITALS: BP 99/65
[2019-01-09] MEDS: LEVETIRACETAM 500 MG/5 ML LIQUID UDC GT SCH ×2 (08:20→20:22)
[2019-01-09] MEDS: DESMOPRESSIN 0.1 MG TABLET GT SCH (08:20)
[2019-01-09] MEDS: ACIDOPHILUS/BULGARICUS CHEW TAB GT SCH ×2 (08:20→20:22)
[2019-01-09] MEDS: NORMAL SALINE FLUSH 10 ML DISP.SYRIN IV SCH ×2 (09:00→21:22)
[2019-01-09] MEDS: CEFEPIME HCL 1 G in IV DEXTROSE 5% 50 ML IV SCH ×2 (09:00→21:22)
[2019-01-09] MEDS: HYDROGEN PEROXIDE 3% 118 ML BOTTLE TP SCH ×2 (09:00→18:46)
[2019-01-09] MEDS: THIAMINE HCL 100 MG TABLET GT SCH (20:22)
[2019-01-09] MEDS: FOLIC ACID 1 MG TABLET GT SCH (20:22)
[2019-01-09] MEDS: CHOLECALCIFEROL 1,000 UNIT TABLET GT SCH (20:22)
[2019-01-09 20:23] VITALS: BP 112/60
[2019-01-10] MEDS: VITAL AF 1.2 1,000 ML LIQUID GT PRN ×2 (00:33→23:00)
[2019-01-10] MEDS: IPRATROPIUM BROMIDE 0.5 MG/2.5 ML NEBU NEB SCH ×6 (02:30→23:03)
[2019-01-10] MEDS: ALBUTEROL SULFATE 2.5 MG/3 ML NEBU NEB SCH ×6 (02:30→23:03)
[2019-01-10] MEDS: BACLOFEN 20 MG TABLET GT SCH ×3 (05:25→21:49)
[2019-01-10] MEDS: OMEPRAZOLE 20 MG CAPSULE.DR GT SCH (05:25)
[2019-01-10 08:00] VITALS: BP 128/47
[2019-01-10] MEDS: NORMAL SALINE FLUSH 10 ML DISP.SYRIN IV SCH ×2 (09:00→20:58)
[2019-01-10] MEDS: CEFEPIME HCL 1 G in IV DEXTROSE 5% 50 ML IV SCH ×2 (09:00→20:57)
[2019-01-10] MEDS: HYDROGEN PEROXIDE 3% 118 ML BOTTLE TP SCH ×2 (09:02→21:41)
[2019-01-10] MEDS: ACIDOPHILUS/BULGARICUS CHEW TAB GT SCH ×2 (09:36→21:47)
[2019-01-10] MEDS: DESMOPRESSIN 0.1 MG TABLET GT SCH (09:36)
[2019-01-10] MEDS: LEVETIRACETAM 500 MG/5 ML LIQUID UDC GT SCH ×2 (09:36→21:48)
--- NOTE | 2019-01-10 14:43 | NUR ---
PATIENT RECEIVED ON VENT WITH SETTINGS OF SIMV12, VT500, PSV10, +5, 28% FiO2. VENT ALARMS ARE ON AND AUDIBLE. AMBUBAG/BACK UP TRACH AT BEDSIDE. NO SOB NOTED. SX PRN. B/S RHONCHI BILATERALLY. PT STABLE AT THIS TIME, WILL CONTINUE TO MONITOR.
--- NOTE | 2019-01-10 19:01 | NUR ---
Pt has LBM x 3 with new orders for contact isolation for c diff precaution,orders carried out.
[2019-01-10 20:18] VITALS: BP 119/50
[2019-01-10] MEDS: FOLIC ACID 1 MG TABLET GT SCH (21:47)
[2019-01-10] MEDS: THIAMINE HCL 100 MG TABLET GT SCH (21:48)
[2019-01-10] MEDS: CHOLECALCIFEROL 1,000 UNIT TABLET GT SCH (21:48)
--- NOTE | 2019-01-11 00:13 | NUR ---
Still on cefepime IV for sepsis, still with loose BM, good luke care rendered and good luke care rendered, on isolation precaution kaity Addendum: 01/11/19 at 0015 by CLARA LEE RN On isolation precaution for possible c-diff in the stool, fluids given as ordered, afebrile, kept clean and comfortable.
[2019-01-11] MEDS: ALBUTEROL SULFATE 2.5 MG/3 ML NEBU NEB SCH ×6 (03:00→23:07)
[2019-01-11] MEDS: IPRATROPIUM BROMIDE 0.5 MG/2.5 ML NEBU NEB SCH ×6 (03:00→23:07)
[2019-01-11] MEDS: OMEPRAZOLE 20 MG CAPSULE.DR GT SCH (05:13)
[2019-01-11] MEDS: BACLOFEN 20 MG TABLET GT SCH ×3 (05:13→21:27)
--- NOTE | 2019-01-11 06:57 | NUR ---
No BM for the whole shift, unable to collect stool for c-diff at this time, will endorse accordingly, good luke care rendered.
--- NOTE | 2019-01-11 07:10 | NUR ---
PT RECEIVED ON CONTINUOS VENT SIMV 12 VT 500 PEEP 5 PS 10 FIO2 28%. TRACH IN PLACED AND SECURED WITH TRACH TIE. TRACH CARE DONE WITHOUT COMPLICATIONS NOTED. BACK UP TRACH AND AMBU BAG AT BEDSIDE. IN LINE TX GIVEN WITH UD ALBUTEROL + UD ATROVENT ORDERED. SUCTION LAVAGE PRN. VENT CHECKED, ALARMS WORKING WELL AND AUDIBLE. NO DISTRESS NOTED AT THIS TIME. WILL CONTINUE TO MONITOR. PPE USED.
[2019-01-11 08:00] VITALS: BP 104/50
[2019-01-11] MEDS: NORMAL SALINE FLUSH 10 ML DISP.SYRIN IV SCH ×2 (09:00→20:32)
[2019-01-11] MEDS: CEFEPIME HCL 1 G in IV DEXTROSE 5% 50 ML IV SCH ×2 (09:00→20:32)
[2019-01-11] MEDS: LEVETIRACETAM 500 MG/5 ML LIQUID UDC GT SCH ×2 (09:03→20:31)
[2019-01-11] MEDS: ACIDOPHILUS/BULGARICUS CHEW TAB GT SCH ×2 (09:03→20:31)
[2019-01-11] MEDS: DESMOPRESSIN 0.1 MG TABLET GT SCH (09:03)
[2019-01-11] MEDS: HYDROGEN PEROXIDE 3% 118 ML BOTTLE TP SCH ×2 (09:25→20:32)
[2019-01-11] MEDS ORDERED: VANCOMYCIN FOR PO/GT/NG USE GT SCH ×2 (12:00→18:00)
--- NOTE | 2019-01-11 16:45 | NUR ---
JOSUÉ received a phone call from Cristian at Dr. Zepeda/Dr. Roy's office, stating that Dr. Roy is on a 2 month personal leave, and that Dr. Zepeda will be filling in for him. Therefore, patient's January 17 dental appointment had to be changed to January 26. JOSUÉ notified all day shift subacute charge nurses and subacute director Ruben Cole via email regarding this change.
[2019-01-11] MEDS: VITAL AF 1.2 1,000 ML LIQUID GT PRN (17:45)
[2019-01-11] MEDS: THIAMINE HCL 100 MG TABLET GT SCH (20:31)
[2019-01-11] MEDS: FOLIC ACID 1 MG TABLET GT SCH (20:31)
[2019-01-11] MEDS: CHOLECALCIFEROL 1,000 UNIT TABLET GT SCH (20:32)
[2019-01-11 20:52] VITALS: BP 121/70
--- NOTE | 2019-01-11 22:26 | NUR ---
S/p Cefepime IV for sepsis, no adverse reactions noted, no diarrhea noted, no BM noted at this time. afebrile, KILEY PICC line is intact, flushing well, on contact precaution for c- diff. fluids given as ordered, kept patient clean and comfortable.
[2019-01-12] MEDS: IPRATROPIUM BROMIDE 0.5 MG/2.5 ML NEBU NEB SCH ×6 (02:58→22:30)
[2019-01-12] MEDS: ALBUTEROL SULFATE 2.5 MG/3 ML NEBU NEB SCH ×6 (02:58→22:30)
[2019-01-12] MEDS: OMEPRAZOLE 20 MG CAPSULE.DR GT SCH (05:49)
[2019-01-12] MEDS: BACLOFEN 20 MG TABLET GT SCH ×3 (05:49→22:01)
[2019-01-12 08:00] VITALS: BP 113/59
[2019-01-12] MEDS: HYDROGEN PEROXIDE 3% 118 ML BOTTLE TP SCH ×2 (08:50→18:55)
[2019-01-12] MEDS: ACIDOPHILUS/BULGARICUS CHEW TAB GT SCH ×2 (09:00→21:00)
[2019-01-12] MEDS: DESMOPRESSIN 0.1 MG TABLET GT SCH (09:00)
[2019-01-12] MEDS: NORMAL SALINE FLUSH 10 ML DISP.SYRIN IV SCH ×2 (09:02→21:00)
[2019-01-12] MEDS: LEVETIRACETAM 500 MG/5 ML LIQUID UDC GT SCH ×2 (09:02→21:00)
[2019-01-12 20:00] VITALS: BP 90/45
[2019-01-12] MEDS: THIAMINE HCL 100 MG TABLET GT SCH (21:00)
[2019-01-12] MEDS: FOLIC ACID 1 MG TABLET GT SCH (21:00)
[2019-01-12] MEDS: CHOLECALCIFEROL 1,000 UNIT TABLET GT SCH (21:00)
[2019-01-12] MEDS: VITAL AF 1.2 1,000 ML LIQUID GT PRN (22:11)
[2019-01-13] MEDS: ALBUTEROL SULFATE 2.5 MG/3 ML NEBU NEB SCH ×6 (03:30→22:30)
[2019-01-13] MEDS: IPRATROPIUM BROMIDE 0.5 MG/2.5 ML NEBU NEB SCH ×6 (03:30→22:30)
[2019-01-13] MEDS: OMEPRAZOLE 20 MG CAPSULE.DR GT SCH (05:37)
[2019-01-13] MEDS: BACLOFEN 20 MG TABLET GT SCH ×3 (05:37→22:35)
[2019-01-13 08:00] VITALS: BP 105/54
--- NOTE | 2019-01-13 08:07 | NUR ---
PATIENT RECEIVED ON VENT WITH SETTINGS OF SIMV12, VT500, +5, PSV10, 28% FiO2. VENT ALARMS ARE ON AUDIBLE. NO SOB NOTED. PATIENT HAS A D[place] 6DCT TRACH TUBE IN PLACE, PATENT AND SECURED. AMBUBAG/BACK UP TRACH AT BEDSIDE. SX'D PRN AND WILL CONTINUE TO MONITOR THROUGHOUT SHIFT.
[2019-01-13] MEDS: ACIDOPHILUS/BULGARICUS CHEW TAB GT SCH ×2 (08:35→20:18)
[2019-01-13] MEDS: DESMOPRESSIN 0.1 MG TABLET GT SCH (08:35)
[2019-01-13] MEDS: LEVETIRACETAM 500 MG/5 ML LIQUID UDC GT SCH ×2 (08:36→20:18)
[2019-01-13] MEDS: HYDROGEN PEROXIDE 3% 118 ML BOTTLE TP SCH ×2 (09:09→18:48)
[2019-01-13] MEDS: NORMAL SALINE FLUSH 10 ML DISP.SYRIN IV SCH ×2 (09:22→21:18)
--- NOTE | 2019-01-13 18:47 | NUR ---
PT noted with no BM for 3 days. Stomach is soft and non-distended. Gas continuously passing. Will continue to monitor and advise lodge officer nurse to give suppository if no BM. Charge nurse made aware.
[2019-01-13] MEDS: FOLIC ACID 1 MG TABLET GT SCH (20:18)
[2019-01-13] MEDS: THIAMINE HCL 100 MG TABLET GT SCH (20:19)
[2019-01-13] MEDS: CHOLECALCIFEROL 1,000 UNIT TABLET GT SCH (20:19)
[2019-01-13 21:06] VITALS: BP 117/66
[2019-01-14] MEDS: ALBUTEROL SULFATE 2.5 MG/3 ML NEBU NEB SCH ×6 (02:34→23:38)
[2019-01-14] MEDS: IPRATROPIUM BROMIDE 0.5 MG/2.5 ML NEBU NEB SCH ×6 (02:34→23:38)
[2019-01-14] MEDS: BACLOFEN 20 MG TABLET GT SCH ×3 (05:55→22:40)
[2019-01-14] MEDS: OMEPRAZOLE 20 MG CAPSULE.DR GT SCH (05:55)
[2019-01-14] MEDS: BISACODYL 10 MG SUPP.RECT RC PRN (06:47)
[2019-01-14 08:00] VITALS: BP 112/66
[2019-01-14] MEDS: DESMOPRESSIN 0.1 MG TABLET GT SCH (08:46)
[2019-01-14] MEDS: LEVETIRACETAM 500 MG/5 ML LIQUID UDC GT SCH ×2 (08:46→20:32)
[2019-01-14] MEDS: ACIDOPHILUS/BULGARICUS CHEW TAB GT SCH ×2 (08:46→20:32)
[2019-01-14] MEDS: NORMAL SALINE FLUSH 10 ML DISP.SYRIN IV SCH ×2 (09:00→21:00)
[2019-01-14] MEDS: HYDROGEN PEROXIDE 3% 118 ML BOTTLE TP SCH ×2 (09:00→21:54)
--- NOTE | 2019-01-14 18:52 | NUR ---
shift manager nurse endorsed suppository given last night. No BM endorsed. Stomach still soft and non-distended. Vitals within normal limit. Monitoring for BM and none noted during morning shift. Will endorse to give suppository in the morning. Charge nurse made aware.
[2019-01-14 20:00] VITALS: BP 101/58
[2019-01-14] MEDS: FOLIC ACID 1 MG TABLET GT SCH (20:32)
[2019-01-14] MEDS: CHOLECALCIFEROL 1,000 UNIT TABLET GT SCH (20:33)
[2019-01-14] MEDS: THIAMINE HCL 100 MG TABLET GT SCH (20:33)
--- NOTE | 2019-01-15 02:14 | NUR ---
PT ON CONT HT 50 VENT WITH SHILEY # [address] AND SECURED, WITH SAME CURRENT VENT SETTINGS, PT DOES ASSIST AT TIMES, WITH GOOD COUGH EFFORT, SUCTIONED LIGHT PALE YELL TINGE SECRETIONS, AND SUCTION MOUTH, CHANGE HME AND TRACH CARE DONE, ALL VENT ALARMS GOOD, CHANGE HME AND CHECK CUFF. Neel PACHECO RCP Addendum: 01/15/19 at 0216 by BESS PACHECO RT Amended: Links added.
[2019-01-15] MEDS: IPRATROPIUM BROMIDE 0.5 MG/2.5 ML NEBU NEB SCH ×6 (04:15→23:07)
[2019-01-15] MEDS: ALBUTEROL SULFATE 2.5 MG/3 ML NEBU NEB SCH ×6 (04:15→23:07)
[2019-01-15] MEDS: BACLOFEN 20 MG TABLET GT SCH ×3 (05:41→21:20)
[2019-01-15] MEDS: OMEPRAZOLE 20 MG CAPSULE.DR GT SCH (05:41)
[2019-01-15 08:00] VITALS: BP 108/52
[2019-01-15] MEDS: ACIDOPHILUS/BULGARICUS CHEW TAB GT SCH ×2 (08:40→20:31)
[2019-01-15] MEDS: DESMOPRESSIN 0.1 MG TABLET GT SCH (08:40)
[2019-01-15] MEDS: NORMAL SALINE FLUSH 10 ML DISP.SYRIN IV SCH ×2 (08:40→21:00)
[2019-01-15] MEDS: LEVETIRACETAM 500 MG/5 ML LIQUID UDC GT SCH ×2 (08:40→20:32)
[2019-01-15] MEDS: HYDROGEN PEROXIDE 3% 118 ML BOTTLE TP SCH ×2 (08:48→21:10)
[2019-01-15] MEDS: VITAL AF 1.2 1,000 ML LIQUID GT PRN (11:45)
[2019-01-15] MEDS: FOLIC ACID 1 MG TABLET GT SCH (20:31)
[2019-01-15] MEDS: CHOLECALCIFEROL 1,000 UNIT TABLET GT SCH (20:32)
[2019-01-15] MEDS: THIAMINE HCL 100 MG TABLET GT SCH (20:32)
[2019-01-15 20:53] VITALS: BP 126/53
[2019-01-16] MEDS: ALBUTEROL SULFATE 2.5 MG/3 ML NEBU NEB SCH ×6 (03:44→22:30)
[2019-01-16] MEDS: IPRATROPIUM BROMIDE 0.5 MG/2.5 ML NEBU NEB SCH ×6 (03:44→22:30)
--- NOTE | 2019-01-16 04:19 | NUR ---
PT ON CONT HT 50 VENT WITH SHILEY #[address] AND SECURED, WITH SAME CURRENT VENT SETTINGS, WITH GOOD COUGH EFFORT, SUCTIONED LIGHT PALE YELL TINGE SECRETIONS, CHANGE HME AND CHANGE [place]EN[place], ALL VENT ALARMS GOOD, TRACH CARE DONE, NO VENT CHANGES MADE, AMBU BAG AT BEDSIDE, PT STABLE . Neel WALLSP Addendum: 01/16/19 at 9704 by BESS PACHECO RT Amended: Links added.
[2019-01-16] MEDS: BACLOFEN 20 MG TABLET GT SCH ×3 (05:17→22:29)
[2019-01-16] MEDS: OMEPRAZOLE 20 MG CAPSULE.DR GT SCH (05:17)
--- NOTE | 2019-01-16 07:48 | NUR ---
PATIENT RECEIVED ON VENT WITH SETTINGS OF SIMV12, VT 500, PSV 10, +5, 28% FiO2. VENT ALARMS ARE ON AND AUDIBLE. TRACH IS PATENT AND SECURED WITH TRACH TIE. AMBUBAG/BACK UP SHILEY 6 TRACH TUBE AT BEDSIDE. ORAL CARE DONE. SX'D PRN. WILL CONTINUE TO MONITOR AND REPORT ANY CHANGES.
[2019-01-16 08:05] VITALS: BP 96/44
[2019-01-16] MEDS: ACIDOPHILUS/BULGARICUS CHEW TAB GT SCH ×2 (09:00→20:42)
[2019-01-16] MEDS: DESMOPRESSIN 0.1 MG TABLET GT SCH (09:00)
[2019-01-16] MEDS: NORMAL SALINE FLUSH 10 ML DISP.SYRIN IV SCH ×2 (09:00→21:00)
[2019-01-16] MEDS: LEVETIRACETAM 500 MG/5 ML LIQUID UDC GT SCH ×2 (09:01→20:42)
[2019-01-16] MEDS: HYDROGEN PEROXIDE 3% 118 ML BOTTLE TP SCH ×2 (09:34→18:48)
[2019-01-16] MEDS: VITAL AF 1.2 1,000 ML LIQUID GT PRN (12:47)
[2019-01-16 20:42] VITALS: BP 111/55
[2019-01-16] MEDS: FOLIC ACID 1 MG TABLET GT SCH (20:42)
[2019-01-16] MEDS: CHOLECALCIFEROL 1,000 UNIT TABLET GT SCH (20:43)
[2019-01-16] MEDS: THIAMINE HCL 100 MG TABLET GT SCH (20:43)
[2019-01-17] MEDS: ALBUTEROL SULFATE 2.5 MG/3 ML NEBU NEB SCH ×6 (03:30→22:50)
[2019-01-17] MEDS: IPRATROPIUM BROMIDE 0.5 MG/2.5 ML NEBU NEB SCH ×6 (03:30→22:50)
[2019-01-17] MEDS: BACLOFEN 20 MG TABLET GT SCH ×3 (06:13→22:13)
[2019-01-17] MEDS: OMEPRAZOLE 20 MG CAPSULE.DR GT SCH (06:13)
[2019-01-17] MEDS: VITAL AF 1.2 1,000 ML LIQUID GT PRN (07:06)
[2019-01-17 08:12] VITALS: BP 90/40
[2019-01-17] MEDS: LEVETIRACETAM 500 MG/5 ML LIQUID UDC GT SCH ×2 (08:16→20:33)
[2019-01-17] MEDS: ACIDOPHILUS/BULGARICUS CHEW TAB GT SCH ×2 (08:16→20:33)
[2019-01-17] MEDS: DESMOPRESSIN 0.1 MG TABLET GT SCH (08:16)
[2019-01-17] MEDS: NORMAL SALINE FLUSH 10 ML DISP.SYRIN IV SCH ×2 (09:00→21:00)
[2019-01-17] MEDS: HYDROGEN PEROXIDE 3% 118 ML BOTTLE TP SCH ×2 (09:50→21:28)
--- NOTE | 2019-01-17 19:34 | NUR ---
RECEIVED PT ON THE HT-50 VENT W/ THE FOLLOWING SETTINGS THAT ARE CHARTED ON THE MECHANICAL VENT NOTES. TRACH TUBE IS PATENT AND SECURED WITH TRACH TIES. HME WILL BE CHANGED. TRACH CARE WILL BE DONE AT A LATER TIME. SUCTIONED SMALL AMOUNTS OF THIN WHITE/YELLOW SECRETIONS. HHN TX'S GIVEN PER MD ORDERS. VENT ALARMS CHECKED AND THEY ARE ON AND AUDIBLE. VENT IS PLUGGED IN THE RED OUTLET. SPARE TRACH AND BMV IS BY BEDSIDE. PATIENT IS TOLERATING CURRENT VENT SETTINGS WELL AT THIS TIME WITH NO SOB NOTED. WILL CONTINUE TO MONITOR.
[2019-01-17] MEDS: FOLIC ACID 1 MG TABLET GT SCH (20:33)
[2019-01-17] MEDS: THIAMINE HCL 100 MG TABLET GT SCH (20:33)
[2019-01-17] MEDS: CHOLECALCIFEROL 1,000 UNIT TABLET GT SCH (20:33)
[2019-01-17 20:42] VITALS: BP 111/57
[2019-01-18] MEDS: ALBUTEROL SULFATE 2.5 MG/3 ML NEBU NEB SCH ×6 (02:49→22:50)
[2019-01-18] MEDS: IPRATROPIUM BROMIDE 0.5 MG/2.5 ML NEBU NEB SCH ×6 (02:49→22:50)
[2019-01-18] MEDS: OMEPRAZOLE 20 MG CAPSULE.DR GT SCH (06:00)
[2019-01-18] MEDS: BACLOFEN 20 MG TABLET GT SCH ×3 (06:00→21:34)
[2019-01-18] MEDS: VITAL AF 1.2 1,000 ML LIQUID GT PRN (06:49)
[2019-01-18 08:14] VITALS: BP 91/49
[2019-01-18] MEDS: HYDROGEN PEROXIDE 3% 118 ML BOTTLE TP SCH ×2 (08:47→20:34)
[2019-01-18] MEDS: NORMAL SALINE FLUSH 10 ML DISP.SYRIN IV SCH (08:59)
[2019-01-18] MEDS: DESMOPRESSIN 0.1 MG TABLET GT SCH (09:33)
[2019-01-18] MEDS: ACIDOPHILUS/BULGARICUS CHEW TAB GT SCH ×2 (09:34→21:32)
[2019-01-18] MEDS: LEVETIRACETAM 500 MG/5 ML LIQUID UDC GT SCH ×2 (09:34→21:32)
--- NOTE | 2019-01-18 14:56 | NUR ---
INTERDISCIPLINARY PLAN OF CARE CONFERENCE was held today. Patient's mother was unable to attend the meeting. Dr. Wagner and the Interdisciplinary Team reviewed the current plan of care in detail. RN reported on patient's current medical condition and completed treatments. RN also reported that patient's isolation precautions have been discontinued. See RN IDT conference notes. See also all other disciplines IDT notes and physician's progress notes for additional details.
--- NOTE | 2019-01-18 18:15 | NUR ---
New orders noted from Lia DAVIS to discontinue the picc line.orders carried out.
--- NOTE | 2019-01-18 19:53 | NUR ---
Picc line discontinue ,procedure tolerated well no bleeding noted,tip of the catheter intact,double check with another Nurse ,(Deb MORALES)will continue observe.
[2019-01-18 20:15] VITALS: BP 115/54
[2019-01-18] MEDS: FOLIC ACID 1 MG TABLET GT SCH (21:32)
[2019-01-18] MEDS: THIAMINE HCL 100 MG TABLET GT SCH (21:33)
[2019-01-18] MEDS: CHOLECALCIFEROL 1,000 UNIT TABLET GT SCH (21:34)
[2019-01-19] MEDS: ALBUTEROL SULFATE 2.5 MG/3 ML NEBU NEB SCH ×6 (02:53→22:37)
[2019-01-19] MEDS: IPRATROPIUM BROMIDE 0.5 MG/2.5 ML NEBU NEB SCH ×6 (02:53→22:37)
[2019-01-19] MEDS: VITAL AF 1.2 1,000 ML LIQUID GT PRN (03:27)
--- NOTE | 2019-01-19 04:57 | NUR ---
old picc line site dressing intact, no bleeding or hematoma observed, no respiratory distress noted.
[2019-01-19] MEDS: BACLOFEN 20 MG TABLET GT SCH ×3 (05:26→21:52)
[2019-01-19] MEDS: OMEPRAZOLE 20 MG CAPSULE.DR GT SCH (05:26)
--- NOTE | 2019-01-19 07:50 | NUR ---
PT RECEIVED TRACH TO VENT ON SETTINGS OF SIMV 12, VT 500, PEEP +5, PS 10, AND 28% FIO2. SHILEY #6 TRACH IS PATENT AND SECURE. IN-LINE TX TOLERATED WELL, NO ADVERSE REACTION NOTED. PT IS TOLERATING VENT SETTINGS WELL, NO RESP. DISTRESS NOTED AT THIS TIME. TRACH CARE PERFORMED WITHOUT INCIDENT. TRACH SITE IS CLEAN AND DRY. AMBU-BAG AT BEDSIDE. VENT PLUGGED INTO RED OUTLET. SUCTION PRN. WILL CONTINUE TO MONITOR.
[2019-01-19 08:09] VITALS: BP 100/48
[2019-01-19] MEDS: DESMOPRESSIN 0.1 MG TABLET GT SCH (09:00)
[2019-01-19] MEDS: ACIDOPHILUS/BULGARICUS CHEW TAB GT SCH ×2 (09:00→21:48)
[2019-01-19] MEDS: LEVETIRACETAM 500 MG/5 ML LIQUID UDC GT SCH ×2 (09:00→21:49)
[2019-01-19] MEDS: HYDROGEN PEROXIDE 3% 118 ML BOTTLE TP SCH ×2 (09:33→21:52)
--- NOTE | 2019-01-19 13:54 | NUR ---
Pharmacy Update from 01/18/19 IDT Meeting Note: Patient was transferred from subacute floor to CCU 11/25-12/14 d/t recurrent fevers and subsequently found with asp PNA with empyema resulting in chest tube placement and drainage. Pt also found with c. diff. Pt was stabilized, treated, and transferred back on abx cefepime IV, vanco po, flagyl for x4 more weeks per ID, now completed. VS: Temp 97 BP 111/57 HR 68 LABS: (from 01/06/19) Wbc 6.9H/H 8.3/24.5Plt 138 Na 139K 3.9Cl 105CO2 27BUN/Scr 23/0.5 BS 79Ca 9.5phos 4.0Mg 1.7 MEDICATION USE REVIEWED: > Pt not on any anti-psych medications > Pt continues Keppra 250mg q12h since 11/09/18; CrCl >100ml/min, renal function ok for current dose. No seizure episodes noted. > Pt on DDAVP 0.05mg GT daily since 12/30/18, changed per MD from q12h, for diabetes insipidus PRN MED USAGE: (December) Tylenol for pain/temp used x1 Artificial Tears used x0 Bisacodyl Supp used x1 NEW ORDERS NOTED: > Cefepime 12/15-01/11 completed > MgOx 400mg x 1 01/06 Patient was reviewed and discussed in depth with no medication issues or concerns at this time noted. Abx course now completed, originally continued from [facility] per ID to complete asp PNA with empyema treatment. No further recommendations at this time, will continue to follow
[2019-01-19 20:11] VITALS: BP 101/44
[2019-01-19] MEDS: FOLIC ACID 1 MG TABLET GT SCH (21:48)
[2019-01-19] MEDS: THIAMINE HCL 100 MG TABLET GT SCH (21:51)
[2019-01-19] MEDS: CHOLECALCIFEROL 1,000 UNIT TABLET GT SCH (21:51)
[2019-01-20] MEDS: VITAL AF 1.2 1,000 ML LIQUID GT PRN (00:43)
[2019-01-20] MEDS: ALBUTEROL SULFATE 2.5 MG/3 ML NEBU NEB SCH ×6 (04:15→22:30)
[2019-01-20] MEDS: IPRATROPIUM BROMIDE 0.5 MG/2.5 ML NEBU NEB SCH ×6 (04:15→22:30)
[2019-01-20] MEDS: OMEPRAZOLE 20 MG CAPSULE.DR GT SCH (05:23)
[2019-01-20] MEDS: BACLOFEN 20 MG TABLET GT SCH ×3 (05:23→22:00)
--- NOTE | 2019-01-20 07:30 | NUR ---
PT RECEIVED ON CONTINUOUS VENT ON SETTINGS OF SIMV 12, VT 500, PEEP +5, PS 10, AND 28% FIO2. SHILEY #6 TRACH IS PATENT AND SECURE. BACK UP TRACH AND AMBU BAG AT BEDSIDE. TRACH CARE PERFORMED WITHOUT INCIDENT. TRACH SITE IS CLEAN AND DRY. IN-LINE TX GIVEN WITH UD ALBUTEROL + UD ATROVENT TOLERATED. NO ADVERSE REACTION NOTED. PT IS TOLERATING VENT SETTINGS WELL, NO RESPIRATORY DISTRESS NOTED AT THIS TIME. VENT PLUGGED INTO RED OUTLET. SUCTION PRN. WILL CONTINUE TO MONITOR.
[2019-01-20 08:00] VITALS: BP 108/52
[2019-01-20] MEDS: DESMOPRESSIN 0.1 MG TABLET GT SCH (08:27)
[2019-01-20] MEDS: LEVETIRACETAM 500 MG/5 ML LIQUID UDC GT SCH ×2 (08:27→21:00)
[2019-01-20] MEDS: ACIDOPHILUS/BULGARICUS CHEW TAB GT SCH ×2 (08:27→21:59)
[2019-01-20] MEDS: HYDROGEN PEROXIDE 3% 118 ML BOTTLE TP SCH ×2 (09:20→18:55)
--- NOTE | 2019-01-20 13:00 | NUR ---
SEEN BY EMMY WAY.
--- NOTE | 2019-01-20 20:23 | NUR ---
Pt rec'd on HT-50 settings SIMV 12, VT 500, PSV 10, PEEP +5 and FIO2-28%. No resp. distress noted. Shiley 6 is patent and secure; Backup Shiley 6 and resusc. bag are both at bedside. Pt to be monitored throughout the shift and PRN SX. HT-50 alarm parameters have been checked and remain audible.
[2019-01-20 20:49] VITALS: BP 115/68
[2019-01-20] MEDS: THIAMINE HCL 100 MG TABLET GT SCH (21:00)
[2019-01-20] MEDS: FOLIC ACID 1 MG TABLET GT SCH (21:00)
[2019-01-20] MEDS: CHOLECALCIFEROL 1,000 UNIT TABLET GT SCH (21:00)
[2019-01-21] MEDS: IPRATROPIUM BROMIDE 0.5 MG/2.5 ML NEBU NEB SCH ×6 (02:31→22:31)
[2019-01-21] MEDS: ALBUTEROL SULFATE 2.5 MG/3 ML NEBU NEB SCH ×6 (02:31→22:31)
[2019-01-21] MEDS: OMEPRAZOLE 20 MG CAPSULE.DR GT SCH (05:51)
[2019-01-21] MEDS: BACLOFEN 20 MG TABLET GT SCH ×3 (05:51→21:25)
[2019-01-21 06:59] LABS: CARBON DIOXIDE 26 mmol/L (21-32); CHLORIDE 101 mmol/L (98-107); CREATININE 0.5 mg/dL (0.6-1.3); GLUCOSE 82 mg/dL (74-106); POTASSIUM 4.1 mmol/L (3.5-5.1); UREA NITROGEN, BLOOD 23 mg/dL (7-18)
[2019-01-21 07:08] LABS: BASOPHILS # (AUTO) 0.1 K/uL (0.0-8.0); BASOPHILS % (AUTO) 1.4 % (0.0-2.0); EOSINOPHILS # (AUTO) 0.5 K/uL (0.0-0.7); HEMATOCRIT 32.3 % (31.2-41.9); HEMOGLOBIN 10.9 g/dL (10.9-14.3); LYMPHOCYTES # (AUTO) 1.9 K/uL (20.0-40.0); LYMPHOCYTES % (AUTO) 19.6 % (20.5-51.5); MEAN CORPUSCULAR HEMOGLOBIN 30.7 uug (24.7-32.8); MEAN CORPUSCULAR HGB CONC 34 g/dL (32.3-35.6); MEAN CORPUSCULAR VOLUME 91.3 fL (75.5-95.3); MONOCYTES # (AUTO) 0.8 K/uL (2.0-10.0); MONOCYTES % (AUTO) 7.7 % (0.0-11.0); NEUTROPHILS # (AUTO) 6.5 K/uL (1.8-8.9); NEUTROPHILS % (AUTO) 66.3 % (38.5-71.5); RED BLOOD CELL COUNT(AUTO) 3.54 MIL/uL (3.63-4.92)
[2019-01-21 07:29] LABS: PLATELET COUNT (AUTO) 273 K/uL (179-408); WHITE BLOOD COUNT (AUTO) 9.8 K/uL (3.8-11.8)
[2019-01-21] MEDS: ACIDOPHILUS/BULGARICUS CHEW TAB GT SCH ×2 (08:36→20:16)
[2019-01-21] MEDS: LEVETIRACETAM 500 MG/5 ML LIQUID UDC GT SCH ×2 (08:36→20:16)
[2019-01-21] MEDS: DESMOPRESSIN 0.1 MG TABLET GT SCH (08:36)
[2019-01-21] MEDS: HYDROGEN PEROXIDE 3% 118 ML BOTTLE TP SCH ×2 (09:00→18:55)
[2019-01-21 11:20] VITALS: BP 125/74
--- NOTE | 2019-01-21 18:46 | NUR ---
SEEN BY DR. ANDER WAY.
[2019-01-21] MEDS: CHOLECALCIFEROL 1,000 UNIT TABLET GT SCH (20:16)
[2019-01-21] MEDS: FOLIC ACID 1 MG TABLET GT SCH (20:16)
[2019-01-21] MEDS: THIAMINE HCL 100 MG TABLET GT SCH (20:16)
[2019-01-21 20:22] VITALS: BP 98/66
[2019-01-21] MEDS: VITAL AF 1.2 1,000 ML LIQUID GT PRN ×2 (22:46)
[2019-01-22] MEDS: IPRATROPIUM BROMIDE 0.5 MG/2.5 ML NEBU NEB SCH ×6 (03:30→23:01)
[2019-01-22] MEDS: ALBUTEROL SULFATE 2.5 MG/3 ML NEBU NEB SCH ×6 (03:30→23:01)
[2019-01-22] MEDS: BACLOFEN 20 MG TABLET GT SCH ×3 (05:12→21:05)
[2019-01-22] MEDS: OMEPRAZOLE 20 MG CAPSULE.DR GT SCH (05:12)
[2019-01-22] MEDS: HYDROGEN PEROXIDE 3% 118 ML BOTTLE TP SCH ×2 (08:01→21:19)
[2019-01-22] MEDS: ACIDOPHILUS/BULGARICUS CHEW TAB GT SCH ×2 (08:36→20:14)
[2019-01-22] MEDS: DESMOPRESSIN 0.1 MG TABLET GT SCH (08:36)
[2019-01-22] MEDS: LEVETIRACETAM 500 MG/5 ML LIQUID UDC GT SCH ×2 (08:36→20:14)
[2019-01-22 11:06] VITALS: BP 145/40
[2019-01-22 19:59] VITALS: BP 106/55
[2019-01-22] MEDS: FOLIC ACID 1 MG TABLET GT SCH (20:14)
[2019-01-22] MEDS: CHOLECALCIFEROL 1,000 UNIT TABLET GT SCH (20:14)
[2019-01-22] MEDS: THIAMINE HCL 100 MG TABLET GT SCH (20:14)
[2019-01-22] MEDS: VITAL AF 1.2 1,000 ML LIQUID GT PRN (21:32)
[2019-01-23] MEDS: IPRATROPIUM BROMIDE 0.5 MG/2.5 ML NEBU NEB SCH ×6 (02:58→22:58)
[2019-01-23] MEDS: ALBUTEROL SULFATE 2.5 MG/3 ML NEBU NEB SCH ×6 (02:58→22:58)
[2019-01-23] MEDS: OMEPRAZOLE 20 MG CAPSULE.DR GT SCH (05:16)
[2019-01-23] MEDS: BACLOFEN 20 MG TABLET GT SCH ×3 (05:16→21:03)
[2019-01-23] MEDS: HYDROGEN PEROXIDE 3% 118 ML BOTTLE TP SCH ×2 (08:07→21:28)
[2019-01-23] MEDS: ACIDOPHILUS/BULGARICUS CHEW TAB GT SCH ×2 (08:27→20:12)
[2019-01-23] MEDS: DESMOPRESSIN 0.1 MG TABLET GT SCH (08:27)
[2019-01-23] MEDS: LEVETIRACETAM 500 MG/5 ML LIQUID UDC GT SCH ×2 (08:27→20:12)
[2019-01-23 11:52] VITALS: BP 94/61
[2019-01-23] MEDS: VITAL AF 1.2 1,000 ML LIQUID GT PRN (17:32)
--- NOTE | 2019-01-23 19:16 | NUR ---
Pt received on HT-50 ventilator with the following settings of SIMV-12, Vt-500, PEEP+5, PS-10, FIO2-28%, trached with Shiley#6 DCT trach, which is in the place and secure. No respiratory distress noted. Airway care done, pt responded to physical stimuli. In-line HHN tx with 2.5mg Albuterol+0.5mg Atrovent given, no adverse reaction noted. HME changed. Resus. bag and back up trach at bedside. Vent and alarms checked and reset.
[2019-01-23] MEDS: CHOLECALCIFEROL 1,000 UNIT TABLET GT SCH (20:12)
[2019-01-23] MEDS: THIAMINE HCL 100 MG TABLET GT SCH (20:12)
[2019-01-23] MEDS: FOLIC ACID 1 MG TABLET GT SCH (20:12)
[2019-01-23 22:10] VITALS: BP 120/58
[2019-01-24] MEDS: ALBUTEROL SULFATE 2.5 MG/3 ML NEBU NEB SCH ×6 (02:58→22:37)
[2019-01-24] MEDS: IPRATROPIUM BROMIDE 0.5 MG/2.5 ML NEBU NEB SCH ×6 (02:58→22:37)
[2019-01-24] MEDS: OMEPRAZOLE 20 MG CAPSULE.DR GT SCH (05:20)
[2019-01-24] MEDS: BACLOFEN 20 MG TABLET GT SCH ×3 (05:20→21:02)
[2019-01-24] MEDS: HYDROGEN PEROXIDE 3% 118 ML BOTTLE TP SCH ×2 (08:15→18:49)
[2019-01-24] MEDS: LEVETIRACETAM 500 MG/5 ML LIQUID UDC GT SCH ×2 (08:15→20:14)
[2019-01-24] MEDS: ACIDOPHILUS/BULGARICUS CHEW TAB GT SCH ×2 (08:15→20:14)
[2019-01-24] MEDS: DESMOPRESSIN 0.1 MG TABLET GT SCH (08:15)
[2019-01-24 10:43] VITALS: BP 101/62
--- NOTE | 2019-01-24 13:00 | NUR ---
SEEN BY EMMY WAY.
[2019-01-24] MEDS: VITAL AF 1.2 1,000 ML LIQUID GT PRN (14:50)
--- NOTE | 2019-01-24 16:00 | NUR ---
SEEN BY DR. LOREDO.
[2019-01-24] MEDS: FOLIC ACID 1 MG TABLET GT SCH (20:14)
[2019-01-24] MEDS: THIAMINE HCL 100 MG TABLET GT SCH (20:14)
[2019-01-24] MEDS: CHOLECALCIFEROL 1,000 UNIT TABLET GT SCH (20:14)
[2019-01-24 20:29] VITALS: BP 84/49
[2019-01-25] MEDS: IPRATROPIUM BROMIDE 0.5 MG/2.5 ML NEBU NEB SCH ×6 (02:30→22:30)
[2019-01-25] MEDS: ALBUTEROL SULFATE 2.5 MG/3 ML NEBU NEB SCH ×6 (02:30→22:30)
[2019-01-25] MEDS: BACLOFEN 20 MG TABLET GT SCH ×3 (05:12→21:21)
[2019-01-25] MEDS: OMEPRAZOLE 20 MG CAPSULE.DR GT SCH (05:12)
[2019-01-25] MEDS: BISACODYL 10 MG SUPP.RECT RC PRN (05:12)
--- NOTE | 2019-01-25 05:13 | NUR ---
No BM x3 days, Ducolax suppository given as ordered.
--- NOTE | 2019-01-25 07:00 | NUR ---
PATIENT RECEIVED ON VENT WITH SETTINGS OF SIMV12, VT500, +5, PSV10, 38% FIO2. VENT ALARMS ARE ON AND AUDIBLE. VENT IS PLUGGED INTO RED EMERGENCY OUTLET. PT HAS A Holidog [address], PATENTAND SECURED WITH A TRACH TIE. NO SOB NOTED. SX'D PRN. MARLENE TX WELL, NO ADVERSE REACTIONS. AMBUBAG/BACK UP TRACH AT BEDSIDE. WILL CONTINUE TO MONITOR AND REPORT ANY CHANGES.
[2019-01-25] MEDS: LEVETIRACETAM 500 MG/5 ML LIQUID UDC GT SCH ×2 (09:09→20:03)
[2019-01-25] MEDS: DESMOPRESSIN 0.1 MG TABLET GT SCH (09:09)
[2019-01-25] MEDS: ACIDOPHILUS/BULGARICUS CHEW TAB GT SCH ×2 (09:09→20:03)
[2019-01-25] MEDS: HYDROGEN PEROXIDE 3% 118 ML BOTTLE TP SCH ×2 (09:10→20:26)
[2019-01-25] MEDS: VITAL AF 1.2 1,000 ML LIQUID GT PRN (11:32)
[2019-01-25 12:24] VITALS: BP 120/68
--- NOTE | 2019-01-25 18:35 | NUR ---
Seen and examined by Dr Wagner with new orders noted.
[2019-01-25 20:00] VITALS: BP 108/66
[2019-01-25] MEDS: CHOLECALCIFEROL 1,000 UNIT TABLET GT SCH (20:03)
[2019-01-25] MEDS: FOLIC ACID 1 MG TABLET GT SCH (20:03)
[2019-01-25] MEDS: THIAMINE HCL 100 MG TABLET GT SCH (20:03)
[2019-01-26] MEDS: ALBUTEROL SULFATE 2.5 MG/3 ML NEBU NEB SCH ×5 (03:28→22:58)
[2019-01-26] MEDS: IPRATROPIUM BROMIDE 0.5 MG/2.5 ML NEBU NEB SCH ×5 (03:28→22:58)
[2019-01-26] MEDS: OMEPRAZOLE 20 MG CAPSULE.DR GT SCH (05:52)
[2019-01-26] MEDS: BACLOFEN 20 MG TABLET GT SCH ×3 (05:52→22:00)
[2019-01-26] MEDS: VITAL AF 1.2 1,000 ML LIQUID GT PRN (05:53)
[2019-01-26] MEDS: DESMOPRESSIN 0.1 MG TABLET GT SCH (08:42)
[2019-01-26] MEDS: ACIDOPHILUS/BULGARICUS CHEW TAB GT SCH ×2 (08:42→20:17)
[2019-01-26] MEDS: LEVETIRACETAM 500 MG/5 ML LIQUID UDC GT SCH ×2 (08:42→20:18)
[2019-01-26] MEDS: HYDROGEN PEROXIDE 3% 118 ML BOTTLE TP SCH ×2 (09:00→20:56)
[2019-01-26 11:17] VITALS: BP 119/72
[2019-01-26 20:00] VITALS: BP 99/56
[2019-01-26] MEDS: FOLIC ACID 1 MG TABLET GT SCH (20:17)
[2019-01-26] MEDS: THIAMINE HCL 100 MG TABLET GT SCH (20:18)
[2019-01-26] MEDS: CHOLECALCIFEROL 1,000 UNIT TABLET GT SCH (20:18)
[2019-01-27] MEDS: VITAL AF 1.2 1,000 ML LIQUID GT PRN (02:00)
[2019-01-27] MEDS: ALBUTEROL SULFATE 2.5 MG/3 ML NEBU NEB SCH ×6 (02:58→22:47)
[2019-01-27] MEDS: IPRATROPIUM BROMIDE 0.5 MG/2.5 ML NEBU NEB SCH ×6 (02:58→22:47)
[2019-01-27] MEDS: OMEPRAZOLE 20 MG CAPSULE.DR GT SCH (05:43)
[2019-01-27] MEDS: BACLOFEN 20 MG TABLET GT SCH ×3 (05:43→22:36)
[2019-01-27] MEDS: DESMOPRESSIN 0.1 MG TABLET GT SCH (08:10)
[2019-01-27] MEDS: LEVETIRACETAM 500 MG/5 ML LIQUID UDC GT SCH ×2 (08:10→20:03)
[2019-01-27] MEDS: ACIDOPHILUS/BULGARICUS CHEW TAB GT SCH ×2 (08:10→20:01)
[2019-01-27] MEDS: HYDROGEN PEROXIDE 3% 118 ML BOTTLE TP SCH ×2 (09:00→21:00)
[2019-01-27 11:15] VITALS: BP 122/51
--- NOTE | 2019-01-27 13:00 | NUR ---
Seen by Marguerite CALVO, notified of 99.6f, new orders carried out, cbc, bmp today.
--- NOTE | 2019-01-27 14:34 | NUR ---
PATIENT NOTED IN THE MORNING WITH LOW GRADE TEMP 99.6, COOLING MEASURES DONE, RECHECKED TEMP 99.1, RECHECKED AGAIN 98.8, LABS ORDERED FOR TODAY, CONTINUE TO MONITOR, NO ACUTE DISTRESS NOTED AT THIS TIME
[2019-01-27 14:57] LABS: BASOPHILS # (AUTO) 0.1 K/uL (0.0-8.0); BASOPHILS % (AUTO) 1.1 % (0.0-2.0); EOSINOPHILS # (AUTO) 0.5 K/uL (0.0-0.7); EOSINOPHILS % (AUTO) 5.9 % (0.0-7.0); HEMATOCRIT 29.3 % (31.2-41.9); HEMOGLOBIN 9.9 g/dL (10.9-14.3); LYMPHOCYTES # (AUTO) 2.4 K/uL (20.0-40.0); LYMPHOCYTES % (AUTO) 27.7 % (20.5-51.5); MEAN CORPUSCULAR HEMOGLOBIN 31.1 uug (24.7-32.8); MEAN CORPUSCULAR HGB CONC 34 g/dL (32.3-35.6); MONOCYTES # (AUTO) 0.7 K/uL (2.0-10.0); MONOCYTES % (AUTO) 7.9 % (0.0-11.0); NEUTROPHILS % (AUTO) 57.4 % (38.5-71.5); PLATELET COUNT (AUTO) 365 K/uL (179-408); RED BLOOD CELL COUNT(AUTO) 3.18 MIL/uL (3.63-4.92); WHITE BLOOD COUNT (AUTO) 8.7 K/uL (3.8-11.8)
[2019-01-27 15:01] LABS: CARBON DIOXIDE 25 mmol/L (21-32); CHLORIDE 103 mmol/L (98-107); CREATININE 0.5 mg/dL (0.6-1.3); GLUCOSE 99 mg/dL (74-106); POTASSIUM 4.1 mmol/L (3.5-5.1); UREA NITROGEN, BLOOD 22 mg/dL (7-18)
--- NOTE | 2019-01-27 19:40 | NUR ---
Pt received in semi saldana position, obtunded, unable to communicate, and on continuous mechanical ventilation via Shiley 6 DCT trach. Pt is on [place] HT-50 ventilator with ordered settings of SIMV-12, VT-500, PEEP+5, PS-10, FIO2-28% Tolerating vent settings well. SpO2-98%. Trach is patent and secured. Minimal occluding volume technique used to assess cuff inflation. In-line nebulizer treatments given as ordered, Q4 with Albuterol/Atrovent. Treatments tolerated well, with no adverse reactions noted. Sxn'd and lavaged as needed. Suctioned small amounts of thick yellowish secretions. HME changed & trach care done. PPE used. No signs or symptoms of respiratory distress. Ventilator alarm parameters checked, on and audible. Vent plugged into red emergency outlet. Bag/valve/mask and backup trach at bedside. Will continue to monitor.
[2019-01-27 20:00] VITALS: BP 107/58
[2019-01-27] MEDS: FOLIC ACID 1 MG TABLET GT SCH (20:03)
[2019-01-27] MEDS: CHOLECALCIFEROL 1,000 UNIT TABLET GT SCH (20:04)
[2019-01-27] MEDS: THIAMINE HCL 100 MG TABLET GT SCH (20:04)
[2019-01-28] MEDS: VITAL AF 1.2 1,000 ML LIQUID GT PRN ×2 (01:00→22:10)
[2019-01-28] MEDS: IPRATROPIUM BROMIDE 0.5 MG/2.5 ML NEBU NEB SCH ×6 (02:45→23:45)
[2019-01-28] MEDS: ALBUTEROL SULFATE 2.5 MG/3 ML NEBU NEB SCH ×6 (02:45→23:45)
[2019-01-28] MEDS: BACLOFEN 20 MG TABLET GT SCH ×3 (05:20→22:00)
[2019-01-28] MEDS: OMEPRAZOLE 20 MG CAPSULE.DR GT SCH (05:20)
[2019-01-28] MEDS: DESMOPRESSIN 0.1 MG TABLET GT SCH (08:31)
[2019-01-28] MEDS: ACIDOPHILUS/BULGARICUS CHEW TAB GT SCH ×2 (08:31→21:59)
[2019-01-28] MEDS: LEVETIRACETAM 500 MG/5 ML LIQUID UDC GT SCH ×2 (08:32→21:00)
[2019-01-28] MEDS: HYDROGEN PEROXIDE 3% 118 ML BOTTLE TP SCH ×2 (09:30→21:50)
[2019-01-28 10:15] VITALS: BP 101/59
[2019-01-28 20:14] VITALS: BP 94/52
[2019-01-28] MEDS: FOLIC ACID 1 MG TABLET GT SCH (21:00)
[2019-01-28] MEDS: CHOLECALCIFEROL 1,000 UNIT TABLET GT SCH (21:00)
[2019-01-28] MEDS: THIAMINE HCL 100 MG TABLET GT SCH (21:59)
--- NOTE | 2019-01-29 02:40 | NUR ---
PT ON CONT HT 50 VENT WITH [address] AND SECURED, WITH SAME CURRENT VENT SETTINGS, PT DOES ASSIST AT TIMES, SUCTIONED PALE YELL TINGE SECRETIONS, GOOD COUGH EFFORT, CHANGE HME AND CHECK CUFF, TRACH CARE DONE, ALL VENT ALARMS GOOD, NO VENT CHANGES MADE, PT STABLE, AMBU BAG AT BEDSIDE.Neel WALLSP Addendum: 01/29/19 at 0242 by BESS PACHECO RT Amended: Links added.
[2019-01-29] MEDS: ALBUTEROL SULFATE 2.5 MG/3 ML NEBU NEB SCH ×6 (03:37→22:30)
[2019-01-29] MEDS: IPRATROPIUM BROMIDE 0.5 MG/2.5 ML NEBU NEB SCH ×6 (03:37→22:30)
[2019-01-29] MEDS: BACLOFEN 20 MG TABLET GT SCH ×3 (05:54→22:17)
[2019-01-29] MEDS: OMEPRAZOLE 20 MG CAPSULE.DR GT SCH (05:54)
--- NOTE | 2019-01-29 07:20 | NUR ---
PT RECEIVED TRACH TO VENT ON SETTINGS OF SIMV 12, VT 500, PEEP +5, PS 10, AND 28% FIO2. SHILEY #6 TRACH IS PATENT AND SECURE. VENT PARAMETERS AND ALARMS CHECKED. ALARMS ARE AUDIBLE. PT IS TOLERATING VENT SETTINGS WELL, NO RESP. DISTRESS NOTED. HME CHANGED. TRACH CARE PERFORMED. TRACH SITE IS CLEAN AND DRY. AMBU-BAG AT BEDSIDE. VENT PLUGGED INTO RED OUTLET. SUCTION PRN. WILL CONTINUE TO MONITOR.
[2019-01-29 08:00] VITALS: BP 116/71
[2019-01-29] MEDS: DESMOPRESSIN 0.1 MG TABLET GT SCH (08:32)
[2019-01-29] MEDS: LEVETIRACETAM 500 MG/5 ML LIQUID UDC GT SCH ×2 (08:33→20:11)
[2019-01-29] MEDS: ACIDOPHILUS/BULGARICUS CHEW TAB GT SCH ×2 (08:33→20:11)
[2019-01-29] MEDS: HYDROGEN PEROXIDE 3% 118 ML BOTTLE TP SCH ×2 (10:10→18:50)
[2019-01-29] MEDS: VITAL AF 1.2 1,000 ML LIQUID GT PRN (19:01)
[2019-01-29 20:07] VITALS: BP 96/62
[2019-01-29] MEDS: CHOLECALCIFEROL 1,000 UNIT TABLET GT SCH (20:11)
[2019-01-29] MEDS: COD LIVER OIL/ZINC OXIDE OINT 113 GM TUBE TP SCH (20:11)
[2019-01-29] MEDS: THIAMINE HCL 100 MG TABLET GT SCH (20:11)
[2019-01-29] MEDS: FOLIC ACID 1 MG TABLET GT SCH (20:11)
[2019-01-30] MEDS: ALBUTEROL SULFATE 2.5 MG/3 ML NEBU NEB SCH ×6 (04:19→22:33)
[2019-01-30] MEDS: IPRATROPIUM BROMIDE 0.5 MG/2.5 ML NEBU NEB SCH ×6 (04:19→22:33)
[2019-01-30] MEDS: OMEPRAZOLE 20 MG CAPSULE.DR GT SCH (05:18)
[2019-01-30] MEDS: BACLOFEN 20 MG TABLET GT SCH ×3 (05:18→21:04)
--- NOTE | 2019-01-30 06:41 | NUR ---
bhatt catheter bypassing, d/c'd bhatt and reinserted #18 by 10ml balloon, tolerated procedure well.
[2019-01-30 08:00] VITALS: BP 112/60
[2019-01-30] MEDS: DESMOPRESSIN 0.1 MG TABLET GT SCH (08:34)
[2019-01-30] MEDS: LEVETIRACETAM 500 MG/5 ML LIQUID UDC GT SCH ×2 (08:34→20:16)
[2019-01-30] MEDS: ACIDOPHILUS/BULGARICUS CHEW TAB GT SCH ×2 (08:34→20:16)
[2019-01-30] MEDS: COD LIVER OIL/ZINC OXIDE OINT 113 GM TUBE TP SCH ×2 (08:35→20:16)
[2019-01-30] MEDS: HYDROGEN PEROXIDE 3% 118 ML BOTTLE TP SCH ×2 (09:42→18:41)
[2019-01-30] MEDS: VITAL AF 1.2 1,000 ML LIQUID GT PRN (18:58)
[2019-01-30 20:00] VITALS: BP 109/64
[2019-01-30] MEDS: CHOLECALCIFEROL 1,000 UNIT TABLET GT SCH (20:16)
[2019-01-30] MEDS: FOLIC ACID 1 MG TABLET GT SCH (20:16)
[2019-01-30] MEDS: THIAMINE HCL 100 MG TABLET GT SCH (20:16)
[2019-01-31] MEDS: ALBUTEROL SULFATE 2.5 MG/3 ML NEBU NEB SCH ×6 (02:30→22:40)
[2019-01-31] MEDS: IPRATROPIUM BROMIDE 0.5 MG/2.5 ML NEBU NEB SCH ×6 (02:30→22:40)
[2019-01-31] MEDS: OMEPRAZOLE 20 MG CAPSULE.DR GT SCH (05:25)
[2019-01-31] MEDS: BACLOFEN 20 MG TABLET GT SCH ×3 (05:25→21:10)
[2019-01-31 08:00] VITALS: BP 118/61
[2019-01-31] MEDS: DESMOPRESSIN 0.1 MG TABLET GT SCH (08:23)
[2019-01-31] MEDS: ACIDOPHILUS/BULGARICUS CHEW TAB GT SCH ×2 (08:23→20:11)
[2019-01-31] MEDS: LEVETIRACETAM 500 MG/5 ML LIQUID UDC GT SCH ×2 (08:24→20:11)
[2019-01-31] MEDS: COD LIVER OIL/ZINC OXIDE OINT 113 GM TUBE TP SCH ×2 (08:25→20:11)
[2019-01-31] MEDS: HYDROGEN PEROXIDE 3% 118 ML BOTTLE TP SCH ×2 (09:19→20:40)
[2019-01-31] MEDS: VITAL AF 1.2 1,000 ML LIQUID GT PRN (15:18)
[2019-01-31] MEDS: FOLIC ACID 1 MG TABLET GT SCH (20:11)
[2019-01-31] MEDS: THIAMINE HCL 100 MG TABLET GT SCH (20:11)
[2019-01-31] MEDS: CHOLECALCIFEROL 1,000 UNIT TABLET GT SCH (20:11)
[2019-01-31 20:44] VITALS: BP 105/59
[2019-02-01] MEDS: IPRATROPIUM BROMIDE 0.5 MG/2.5 ML NEBU NEB SCH ×6 (03:20→22:58)
[2019-02-01] MEDS: ALBUTEROL SULFATE 2.5 MG/3 ML NEBU NEB SCH ×6 (03:20→22:58)
[2019-02-01] MEDS: BACLOFEN 20 MG TABLET GT SCH ×3 (05:32→22:56)
[2019-02-01] MEDS: OMEPRAZOLE 20 MG CAPSULE.DR GT SCH (05:32)
[2019-02-01 06:01] LABS: BASOPHILS % (AUTO) 0.7 % (0.0-2.0); EOSINOPHILS # (AUTO) 0.6 K/uL (0.0-0.7); EOSINOPHILS % (AUTO) 8.6 % (0.0-7.0); HEMATOCRIT 26.8 % (31.2-41.9); HEMOGLOBIN 9.2 g/dL (10.9-14.3); LYMPHOCYTES # (AUTO) 1.5 K/uL (20.0-40.0); LYMPHOCYTES % (AUTO) 22.2 % (20.5-51.5); MEAN CORPUSCULAR HEMOGLOBIN 31.4 uug (24.7-32.8); MEAN CORPUSCULAR HGB CONC 35 g/dL (32.3-35.6); MEAN CORPUSCULAR VOLUME 90.9 fL (75.5-95.3); MONOCYTES # (AUTO) 0.5 K/uL (2.0-10.0); MONOCYTES % (AUTO) 6.8 % (0.0-11.0); NEUTROPHILS # (AUTO) 4.1 K/uL (1.8-8.9); NEUTROPHILS % (AUTO) 61.7 % (38.5-71.5); PLATELET COUNT (AUTO) 281 K/uL (179-408); RED BLOOD CELL COUNT(AUTO) 2.95 MIL/uL (3.63-4.92); WHITE BLOOD COUNT (AUTO) 6.7 K/uL (3.8-11.8)
[2019-02-01 06:14] LABS: ALANINE AMINOTRANSFERASE 75 U/L (14-59); ALKALINE PHOSPHATASE 147 U/L (50-136); ASPARTATE AMINOTRANSFERASE 28 U/L (15-37); BILIRUBIN,TOTAL 0.3 mg/dL (0.2-1.0); CARBON DIOXIDE 25 mmol/L (21-32); CHLORIDE 103 mmol/L (98-107); CREATININE 0.4 mg/dL (0.6-1.3); GLUCOSE 100 mg/dL (74-106); MAGNESIUM 1.8 mg/dL (1.8-2.4); PHOSPHOROUS 3.6 mg/dL (2.5-4.9); POTASSIUM 3.7 mmol/L (3.5-5.1); TOTAL PROTEIN, SERUM 7.4 g/dL (6.4-8.2); UREA NITROGEN, BLOOD 18 mg/dL (7-18)
[2019-02-01] MEDS: HYDROGEN PEROXIDE 3% 118 ML BOTTLE TP SCH ×2 (09:00→20:42)
[2019-02-01] MEDS: COD LIVER OIL/ZINC OXIDE OINT 113 GM TUBE TP SCH ×2 (09:34→20:42)
[2019-02-01] MEDS: LEVETIRACETAM 500 MG/5 ML LIQUID UDC GT SCH ×2 (09:34→20:41)
[2019-02-01] MEDS: DESMOPRESSIN 0.1 MG TABLET GT SCH (09:34)
[2019-02-01] MEDS: ACIDOPHILUS/BULGARICUS CHEW TAB GT SCH ×2 (09:34→20:41)
[2019-02-01] MEDS: VITAL AF 1.2 1,000 ML LIQUID GT PRN (11:54)
[2019-02-01 14:49] VITALS: BP 103/55
[2019-02-01 20:00] VITALS: BP 91/49
[2019-02-01] MEDS: THIAMINE HCL 100 MG TABLET GT SCH (20:41)
[2019-02-01] MEDS: FOLIC ACID 1 MG TABLET GT SCH (20:41)
[2019-02-01] MEDS: CHOLECALCIFEROL 1,000 UNIT TABLET GT SCH (20:42)
[2019-02-02] MEDS: ALBUTEROL SULFATE 2.5 MG/3 ML NEBU NEB SCH ×6 (02:58→22:30)
[2019-02-02] MEDS: IPRATROPIUM BROMIDE 0.5 MG/2.5 ML NEBU NEB SCH ×6 (02:58→22:30)
[2019-02-02] MEDS: OMEPRAZOLE 20 MG CAPSULE.DR GT SCH (06:23)
[2019-02-02] MEDS: BACLOFEN 20 MG TABLET GT SCH ×3 (06:23→21:56)
[2019-02-02] MEDS: HYDROGEN PEROXIDE 3% 118 ML BOTTLE TP SCH ×2 (09:00→18:54)
[2019-02-02] MEDS: COD LIVER OIL/ZINC OXIDE OINT 113 GM TUBE TP SCH ×2 (09:01→20:51)
[2019-02-02] MEDS: DESMOPRESSIN 0.1 MG TABLET GT SCH (09:01)
[2019-02-02] MEDS: ACIDOPHILUS/BULGARICUS CHEW TAB GT SCH ×2 (09:01→20:51)
[2019-02-02] MEDS: LEVETIRACETAM 500 MG/5 ML LIQUID UDC GT SCH ×2 (09:01→20:51)
[2019-02-02 12:28] VITALS: BP 106/40
[2019-02-02] MEDS: CHOLECALCIFEROL 1,000 UNIT TABLET GT SCH (20:51)
[2019-02-02] MEDS: THIAMINE HCL 100 MG TABLET GT SCH (20:51)
[2019-02-02] MEDS: FOLIC ACID 1 MG TABLET GT SCH (20:51)
[2019-02-02 22:00] VITALS: BP 100/54
[2019-02-03] MEDS: ALBUTEROL SULFATE 2.5 MG/3 ML NEBU NEB SCH ×6 (02:31→22:30)
[2019-02-03] MEDS: IPRATROPIUM BROMIDE 0.5 MG/2.5 ML NEBU NEB SCH ×6 (02:31→22:30)
[2019-02-03] MEDS: VITAL AF 1.2 1,000 ML LIQUID GT PRN (04:41)
[2019-02-03] MEDS: BACLOFEN 20 MG TABLET GT SCH ×3 (05:52→22:00)
[2019-02-03] MEDS: OMEPRAZOLE 20 MG CAPSULE.DR GT SCH (05:52)
--- NOTE | 2019-02-03 07:35 | NUR ---
PT REMAIN ON CONTINUOS VENT SIMV 12 VT 500 PEEP 5 PS 10 FIO2 28%. TRACH CARE DONE WITHOUT COMPLICATIONS NOTED. TRACH IN PLACED AND SECURED WITH TRACH TIE. BACK UP TRACH AND AMBU BAG AT BEDSIDE. IN LINE TX GIVEN WITH UD ALBUTEROL + UD ATROVENT ORDERED. SUCTION LAVAGE PRN. VENT CHECKED, ALARMS WORKING WELL AND AUDIBLE. NO DISTRESS NOTED AT THIS TIME. WILL CONTINUE TO MONITOR.
[2019-02-03] MEDS: DESMOPRESSIN 0.1 MG TABLET GT SCH (08:44)
[2019-02-03] MEDS: ACIDOPHILUS/BULGARICUS CHEW TAB GT SCH ×2 (08:44→20:54)
[2019-02-03] MEDS: COD LIVER OIL/ZINC OXIDE OINT 113 GM TUBE TP SCH ×2 (08:44→20:54)
[2019-02-03] MEDS: LEVETIRACETAM 500 MG/5 ML LIQUID UDC GT SCH ×2 (08:44→20:54)
[2019-02-03] MEDS: HYDROGEN PEROXIDE 3% 118 ML BOTTLE TP SCH ×2 (09:18→18:44)
[2019-02-03 11:07] VITALS: BP 137/61
[2019-02-03] MEDS: FOLIC ACID 1 MG TABLET GT SCH (20:54)
[2019-02-03] MEDS: THIAMINE HCL 100 MG TABLET GT SCH (20:54)
[2019-02-03] MEDS: CHOLECALCIFEROL 1,000 UNIT TABLET GT SCH (20:54)
[2019-02-03 22:04] VITALS: BP 107/51
[2019-02-04] MEDS: IPRATROPIUM BROMIDE 0.5 MG/2.5 ML NEBU NEB SCH ×6 (02:30→22:49)
[2019-02-04] MEDS: ALBUTEROL SULFATE 2.5 MG/3 ML NEBU NEB SCH ×6 (02:30→22:49)
[2019-02-04] MEDS: VITAL AF 1.2 1,000 ML LIQUID GT PRN (03:02)
[2019-02-04] MEDS: BACLOFEN 20 MG TABLET GT SCH ×3 (05:36→22:15)
[2019-02-04] MEDS: OMEPRAZOLE 20 MG CAPSULE.DR GT SCH (05:36)
[2019-02-04 08:00] VITALS: BP 109/57
[2019-02-04] MEDS: COD LIVER OIL/ZINC OXIDE OINT 113 GM TUBE TP SCH ×2 (08:11→21:00)
[2019-02-04] MEDS: DESMOPRESSIN 0.1 MG TABLET GT SCH (08:11)
[2019-02-04] MEDS: LEVETIRACETAM 500 MG/5 ML LIQUID UDC GT SCH ×2 (08:11→20:23)
[2019-02-04] MEDS: ACIDOPHILUS/BULGARICUS CHEW TAB GT SCH ×2 (08:11→20:23)
[2019-02-04] MEDS: HYDROGEN PEROXIDE 3% 118 ML BOTTLE TP SCH ×2 (09:19→21:00)
[2019-02-04] MEDS: FOLIC ACID 1 MG TABLET GT SCH (20:23)
[2019-02-04] MEDS: THIAMINE HCL 100 MG TABLET GT SCH (20:23)
[2019-02-04] MEDS: CHOLECALCIFEROL 1,000 UNIT TABLET GT SCH (20:23)
[2019-02-04 21:33] VITALS: BP 100/54
[2019-02-05] MEDS: IPRATROPIUM BROMIDE 0.5 MG/2.5 ML NEBU NEB SCH ×6 (02:41→22:58)
[2019-02-05] MEDS: ALBUTEROL SULFATE 2.5 MG/3 ML NEBU NEB SCH ×6 (02:41→22:58)
[2019-02-05] MEDS: VITAL AF 1.2 1,000 ML LIQUID GT PRN (03:51)
[2019-02-05] MEDS: OMEPRAZOLE 20 MG CAPSULE.DR GT SCH (06:17)
[2019-02-05] MEDS: BACLOFEN 20 MG TABLET GT SCH ×3 (06:17→22:12)
[2019-02-05] MEDS: COD LIVER OIL/ZINC OXIDE OINT 113 GM TUBE TP SCH ×2 (08:41→20:22)
[2019-02-05] MEDS: ACIDOPHILUS/BULGARICUS CHEW TAB GT SCH ×2 (08:41→20:20)
[2019-02-05] MEDS: DESMOPRESSIN 0.1 MG TABLET GT SCH (08:41)
[2019-02-05] MEDS: LEVETIRACETAM 500 MG/5 ML LIQUID UDC GT SCH ×2 (08:41→20:20)
[2019-02-05 11:14] VITALS: BP 114/56
[2019-02-05] MEDS: HYDROGEN PEROXIDE 3% 118 ML BOTTLE TP SCH ×2 (11:22→21:16)
--- NOTE | 2019-02-05 16:21 | NUR ---
PT ON HT-50 VENT WITH NO RESPIRATORY DISTRESS, TOLERATING VENT SETTINGS WELL. NO VENT CHANGES MADE. BVM AND BACK UP TRACH AT BEDSIDE. WILL CONTINUE TO MONITOR.
--- NOTE | 2019-02-05 19:07 | NUR ---
Received pt on HT-50 ventilator with the following settings of SIMV-12, Vt-500, PEEP+5, PS-10, FIO2-28%, trached with Shiley#6 DCT trach, which is in the place and secure. No distress noted. Airway care done, pt responded to physical stimuli. In-line HHN tx with 2.5mg Albuterol+0.5mg Atrovent given, no adverse reaction noted. HME, Sx Garza and HHN adaptor changed. Resus. bag and back up trach at bedside. Vent and alarms checked and reset.
[2019-02-05] MEDS: FOLIC ACID 1 MG TABLET GT SCH (20:20)
[2019-02-05] MEDS: CHOLECALCIFEROL 1,000 UNIT TABLET GT SCH (20:21)
[2019-02-05] MEDS: THIAMINE HCL 100 MG TABLET GT SCH (20:21)
[2019-02-05 22:33] VITALS: BP 97/50
[2019-02-06] MEDS: VITAL AF 1.2 1,000 ML LIQUID GT PRN (00:03)
[2019-02-06] MEDS: IPRATROPIUM BROMIDE 0.5 MG/2.5 ML NEBU NEB SCH ×6 (02:58→22:58)
[2019-02-06] MEDS: ALBUTEROL SULFATE 2.5 MG/3 ML NEBU NEB SCH ×6 (02:58→22:58)
[2019-02-06] MEDS: BACLOFEN 20 MG TABLET GT SCH ×3 (05:43→22:58)
[2019-02-06] MEDS: OMEPRAZOLE 20 MG CAPSULE.DR GT SCH (05:43)
--- NOTE | 2019-02-06 07:45 | NUR ---
PT RECEIVED ON CONTINUOUS VENT ON SETTINGS OF SIMV 12, VT 500, PEEP +5, PS 10, AND 28% FIO2. SHILEY #6 TRACH IS PATENT AND SECURE. BACK UP TRACH AND AMBU BAG AT BEDSIDE. TRACH CARE PERFORMED WITHOUT INCIDENT. TRACH SITE IS CLEAN AND DRY. IN-LINE TX GIVEN WITH UD ALBUTEROL + UD ATROVENT TOLERATED. NO ADVERSE REACTION NOTED. NO RESPIRATORY DISTRESS NOTED AT THIS TIME. VENT PLUGGED INTO RED OUTLET. SUCTION PRN. WILL CONTINUE TO MONITOR.
[2019-02-06 08:00] VITALS: BP 95/56
[2019-02-06] MEDS: DESMOPRESSIN 0.1 MG TABLET GT SCH (08:43)
[2019-02-06] MEDS: ACIDOPHILUS/BULGARICUS CHEW TAB GT SCH ×2 (08:43→20:21)
[2019-02-06] MEDS: COD LIVER OIL/ZINC OXIDE OINT 113 GM TUBE TP SCH ×2 (08:43→20:22)
[2019-02-06] MEDS: LEVETIRACETAM 500 MG/5 ML LIQUID UDC GT SCH ×2 (08:43→20:21)
[2019-02-06] MEDS: HYDROGEN PEROXIDE 3% 118 ML BOTTLE TP SCH ×2 (09:26→21:30)
--- NOTE | 2019-02-06 19:10 | NUR ---
Received pt on HT-50 ventilator with the following settings of SIMV-12, Vt-500, PEEP+5, PS-10, FIO2-28%, trached with Shiley#6 DCT trach, which is in the place and secure. No SOB noted. Airway care done, pt responded to physical stimuli. In-line HHN tx with 2.5mg Albuterol+0.5mg Atrovent given, pt tolerated well. HME changed. Resus. bag and back up trach at bedside. Vent and alarms checked and reset.
[2019-02-06] MEDS: FOLIC ACID 1 MG TABLET GT SCH (20:21)
[2019-02-06] MEDS: CHOLECALCIFEROL 1,000 UNIT TABLET GT SCH (20:22)
[2019-02-06] MEDS: THIAMINE HCL 100 MG TABLET GT SCH (20:22)
[2019-02-06 22:30] VITALS: BP 108/44
[2019-02-07] MEDS: IPRATROPIUM BROMIDE 0.5 MG/2.5 ML NEBU NEB SCH ×6 (02:58→22:59)
[2019-02-07] MEDS: ALBUTEROL SULFATE 2.5 MG/3 ML NEBU NEB SCH ×6 (02:58→22:59)
[2019-02-07] MEDS: OMEPRAZOLE 20 MG CAPSULE.DR GT SCH (05:58)
[2019-02-07] MEDS: BACLOFEN 20 MG TABLET GT SCH ×3 (05:58→22:03)
[2019-02-07 08:00] VITALS: BP 104/58
[2019-02-07] MEDS: COD LIVER OIL/ZINC OXIDE OINT 113 GM TUBE TP SCH ×2 (08:47→20:32)
[2019-02-07] MEDS: LEVETIRACETAM 500 MG/5 ML LIQUID UDC GT SCH ×2 (08:47→20:30)
[2019-02-07] MEDS: ACIDOPHILUS/BULGARICUS CHEW TAB GT SCH ×2 (08:47→20:30)
[2019-02-07] MEDS: DESMOPRESSIN 0.1 MG TABLET GT SCH (08:47)
[2019-02-07] MEDS: HYDROGEN PEROXIDE 3% 118 ML BOTTLE TP SCH ×2 (09:23→21:05)
--- NOTE | 2019-02-07 10:31 | NUR ---
PT'S VENT ALARMING AND CH. NURSE WENT TO CHECK AND OBSERVED PT'S RT UPPER EXTREMITY FLEXED AND RT HAND FINGER CATCHING THE BRENNAN BEING PULLED AND DISCONNECTING VENT AND IMMEDIATELY WAS CONNECTED AND RT HAND KEPT MUCH POSSIBLE FROM VENT CIRCUIT.STOGIE PACKER AND CLOUD ADMINISTRATOR AWARE TO MONITOR WITH FREQUENT VISUAL CHECKS TO PREVENT IT.
--- NOTE | 2019-02-07 12:00 | NUR ---
SEEN AND EXAMINED BY EMMY WAY.
[2019-02-07] MEDS: VITAL AF 1.2 1,000 ML LIQUID GT PRN (16:48)
[2019-02-07 20:30] VITALS: BP 104/52
[2019-02-07] MEDS: FOLIC ACID 1 MG TABLET GT SCH (20:30)
[2019-02-07] MEDS: THIAMINE HCL 100 MG TABLET GT SCH (20:31)
[2019-02-07] MEDS: CHOLECALCIFEROL 1,000 UNIT TABLET GT SCH (20:31)
[2019-02-08] MEDS: IPRATROPIUM BROMIDE 0.5 MG/2.5 ML NEBU NEB SCH ×6 (02:58→23:05)
[2019-02-08] MEDS: ALBUTEROL SULFATE 2.5 MG/3 ML NEBU NEB SCH ×6 (02:58→23:05)
[2019-02-08] MEDS: OMEPRAZOLE 20 MG CAPSULE.DR GT SCH (05:32)
[2019-02-08] MEDS: BACLOFEN 20 MG TABLET GT SCH ×3 (05:32→22:16)
--- NOTE | 2019-02-08 07:40 | NUR ---
PT RECEIVED ON CONTINUOS VENT SIMV 12 VT 500 PEEP 5 PS 10 FIO2 28%. TRACH IN PLACED AND SECURED WITH TRACH TIE. BACK UP TRACH AND AMBU BAG AT BEDSIDE. TRACH CARE DONE WITHOUT COMPLICATIONS NOTED. IN LINE TX GIVEN WITH UD ALBUTEROL + UD ATROVENT ORDERED. SUCTION LAVAGE PRN. VENT CHECKED, ALARMS WORKING WELL AND AUDIBLE. NO DISTRESS NOTED AT THIS TIME. WILL CONTINUE TO MONITOR.
[2019-02-08 08:00] VITALS: BP 119/57
[2019-02-08] MEDS: DESMOPRESSIN 0.1 MG TABLET GT SCH (09:04)
[2019-02-08] MEDS: ACIDOPHILUS/BULGARICUS CHEW TAB GT SCH ×2 (09:04→20:10)
[2019-02-08] MEDS: COD LIVER OIL/ZINC OXIDE OINT 113 GM TUBE TP SCH ×2 (09:05→20:12)
[2019-02-08] MEDS: LEVETIRACETAM 500 MG/5 ML LIQUID UDC GT SCH ×2 (09:05→20:10)
[2019-02-08] MEDS: HYDROGEN PEROXIDE 3% 118 ML BOTTLE TP SCH ×2 (09:29→21:17)
--- NOTE | 2019-02-08 14:31 | NUR ---
Pharmacy Update from Today's 02/08/19 IDT Meeting Note: Patient was transferred from subacute floor to CCU 11/25-12/14 d/t recurrent fevers and subsequently found with asp PNA with empyema resulting in chest tube placement and drainage. Pt also found with c. diff. Pt was stabilized, treated, and transferred back on abx cefepime IV, vanco po, flagyl for x4 more weeks per ID, now completed. VS: Temp 97.3 BP 104/52 HR 73 LABS: (from 02/01/19) Wbc 6.7H/H 9.2/26.8Plt 281 Na 137K 3.7Cl 103CO2 25BUN/Scr 18/0.4 BS 100Ca 8.8phos 3.6Mg 1.8 MEDICATION USE REVIEWED: > Pt not on any anti-psych medications > Pt continues Keppra 250mg q12h since 11/09/18; CrCl >100ml/min, renal function ok for current dose. No seizure episodes noted. > Pt on DDAVP 0.05mg GT daily since 12/30/18 for diabetes insipidus PRN MED USAGE: (December) Tylenol for pain/temp used x1 Artificial Tears used x0 Bisacodyl Supp used x1 NEW ORDERS NOTED: > NA Patient was reviewed and discussed in depth with no medication issues or concerns at this time noted. Remains stable on current regimen, no further recs at this time. Will continue to follow
--- NOTE | 2019-02-08 15:16 | NUR ---
INTERDISCIPLINARY PLAN OF CARE CONFERENCE was held today. Patient's mother lives in [place] and was unable to attend the meeting. Dr. Wagner and the Interdisciplinary Team reviewed the current plan of care in detail. RN provided updates on the patient's medical condition. No major changes in condition were reported. See RN IDT conference notes. See also all other disciplines IDT notes and physician's progress notes for additional details.
[2019-02-08] MEDS: VITAL AF 1.2 1,000 ML LIQUID GT PRN (18:42)
[2019-02-08] MEDS: FOLIC ACID 1 MG TABLET GT SCH (20:10)
[2019-02-08] MEDS: CHOLECALCIFEROL 1,000 UNIT TABLET GT SCH (20:12)
[2019-02-08] MEDS: THIAMINE HCL 100 MG TABLET GT SCH (20:12)
[2019-02-08 20:39] VITALS: BP 121/55
[2019-02-09] MEDS: ALBUTEROL SULFATE 2.5 MG/3 ML NEBU NEB SCH ×6 (03:40→22:58)
[2019-02-09] MEDS: IPRATROPIUM BROMIDE 0.5 MG/2.5 ML NEBU NEB SCH ×6 (03:40→22:58)
[2019-02-09] MEDS: BACLOFEN 20 MG TABLET GT SCH ×3 (05:17→22:21)
[2019-02-09] MEDS: OMEPRAZOLE 20 MG CAPSULE.DR GT SCH (05:17)
[2019-02-09] MEDS: COD LIVER OIL/ZINC OXIDE OINT 113 GM TUBE TP SCH ×2 (08:37→20:19)
[2019-02-09] MEDS: LEVETIRACETAM 500 MG/5 ML LIQUID UDC GT SCH ×2 (08:37→20:19)
[2019-02-09] MEDS: DESMOPRESSIN 0.1 MG TABLET GT SCH (08:37)
[2019-02-09] MEDS: ACIDOPHILUS/BULGARICUS CHEW TAB GT SCH ×2 (08:37→20:19)
[2019-02-09] MEDS: HYDROGEN PEROXIDE 3% 118 ML BOTTLE TP SCH ×2 (09:00→20:19)
[2019-02-09 13:31] VITALS: BP 117/69
[2019-02-09 20:00] VITALS: BP 112/59
[2019-02-09] MEDS: CHOLECALCIFEROL 1,000 UNIT TABLET GT SCH (20:19)
[2019-02-09] MEDS: THIAMINE HCL 100 MG TABLET GT SCH (20:19)
[2019-02-09] MEDS: FOLIC ACID 1 MG TABLET GT SCH (20:19)
[2019-02-10] MEDS: ALBUTEROL SULFATE 2.5 MG/3 ML NEBU NEB SCH ×6 (02:58→23:07)
[2019-02-10] MEDS: IPRATROPIUM BROMIDE 0.5 MG/2.5 ML NEBU NEB SCH ×6 (02:58→23:07)
[2019-02-10] MEDS: BACLOFEN 20 MG TABLET GT SCH ×3 (05:56→21:58)
[2019-02-10] MEDS: OMEPRAZOLE 20 MG CAPSULE.DR GT SCH (05:57)
[2019-02-10] MEDS: ACIDOPHILUS/BULGARICUS CHEW TAB GT SCH ×2 (08:23→20:36)
[2019-02-10] MEDS: LEVETIRACETAM 500 MG/5 ML LIQUID UDC GT SCH ×2 (08:23→20:36)
[2019-02-10] MEDS: COD LIVER OIL/ZINC OXIDE OINT 113 GM TUBE TP SCH ×2 (08:23→20:36)
[2019-02-10] MEDS: DESMOPRESSIN 0.1 MG TABLET GT SCH (08:23)
[2019-02-10 10:38] VITALS: BP 101/56
[2019-02-10 10:40] VITALS: BP 122/79
[2019-02-10] MEDS: HYDROGEN PEROXIDE 3% 118 ML BOTTLE TP SCH ×2 (11:06→21:36)
--- NOTE | 2019-02-10 11:22 | NUR ---
Annual dental cleaning scheduled with Dr. Zepeda [phone] for 03/02/2019.
[2019-02-10] MEDS: VITAL AF 1.2 1,000 ML LIQUID GT PRN (11:32)
--- NOTE | 2019-02-10 19:48 | NUR ---
RECEIVED PT ON THE HT-50 VENT W/ THE FOLLOWING SETTINGS THAT ARE CHARTED ON THE MECHANICAL VENT NOTES. TRACH TUBE IS PATENT AND SECURED WITH TRACH TIES. HME CHANGED. TRACH CARE WILL BE DONE AT A LATER TIME. SUCTIONED SMALL AMOUNTS OF THIN WHITE/YELLOW SECRETIONS. HHN TX'S GIVEN PER MD ORDERS. VENT ALARMS CHECKED AND THEY ARE ON AND AUDIBLE. VENT IS PLUGGED IN THE RED OUTLET. SPARE TRACH AND BMV IS BY BEDSIDE. PATIENT IS TOLERATING CURRENT VENT SETTINGS WELL AT THIS TIME WITH NO SOB NOTED. WILL CONTINUE TO MONITOR.
[2019-02-10 20:00] VITALS: BP 92/47
[2019-02-10] MEDS: CHOLECALCIFEROL 1,000 UNIT TABLET GT SCH (20:36)
[2019-02-10] MEDS: THIAMINE HCL 100 MG TABLET GT SCH (20:36)
[2019-02-10] MEDS: FOLIC ACID 1 MG TABLET GT SCH (20:36)
[2019-02-11] MEDS: IPRATROPIUM BROMIDE 0.5 MG/2.5 ML NEBU NEB SCH ×6 (03:13→23:22)
[2019-02-11] MEDS: ALBUTEROL SULFATE 2.5 MG/3 ML NEBU NEB SCH ×6 (03:13→23:22)
[2019-02-11] MEDS: OMEPRAZOLE 20 MG CAPSULE.DR GT SCH (05:03)
[2019-02-11] MEDS: BACLOFEN 20 MG TABLET GT SCH ×3 (05:03→21:37)
[2019-02-11] MEDS: DESMOPRESSIN 0.1 MG TABLET GT SCH (08:05)
[2019-02-11] MEDS: ACIDOPHILUS/BULGARICUS CHEW TAB GT SCH ×2 (08:05→20:31)
[2019-02-11] MEDS: LEVETIRACETAM 500 MG/5 ML LIQUID UDC GT SCH ×2 (08:05→20:31)
[2019-02-11] MEDS: COD LIVER OIL/ZINC OXIDE OINT 113 GM TUBE TP SCH ×2 (08:05→20:31)
[2019-02-11] MEDS: HYDROGEN PEROXIDE 3% 118 ML BOTTLE TP SCH ×2 (09:00→21:00)
[2019-02-11] MEDS: VITAL AF 1.2 1,000 ML LIQUID GT PRN (09:00)
[2019-02-11 10:22] VITALS: BP 105/50
[2019-02-11 20:07] VITALS: BP 106/54
[2019-02-11] MEDS: THIAMINE HCL 100 MG TABLET GT SCH (20:31)
[2019-02-11] MEDS: CHOLECALCIFEROL 1,000 UNIT TABLET GT SCH (20:31)
[2019-02-11] MEDS: FOLIC ACID 1 MG TABLET GT SCH (20:31)
[2019-02-12] MEDS: ALBUTEROL SULFATE 2.5 MG/3 ML NEBU NEB SCH ×6 (03:22→23:30)
[2019-02-12] MEDS: IPRATROPIUM BROMIDE 0.5 MG/2.5 ML NEBU NEB SCH ×6 (03:22→23:30)
[2019-02-12] MEDS: VITAL AF 1.2 1,000 ML LIQUID GT PRN (04:16)
[2019-02-12] MEDS: BACLOFEN 20 MG TABLET GT SCH ×3 (05:36→21:39)
[2019-02-12] MEDS: OMEPRAZOLE 20 MG CAPSULE.DR GT SCH (05:36)
[2019-02-12] MEDS: DESMOPRESSIN 0.1 MG TABLET GT SCH (08:54)
[2019-02-12] MEDS: COD LIVER OIL/ZINC OXIDE OINT 113 GM TUBE TP SCH ×2 (08:55→20:53)
[2019-02-12] MEDS: ACIDOPHILUS/BULGARICUS CHEW TAB GT SCH ×2 (08:55→20:52)
[2019-02-12] MEDS: LEVETIRACETAM 500 MG/5 ML LIQUID UDC GT SCH ×2 (08:55→20:53)
[2019-02-12] MEDS: HYDROGEN PEROXIDE 3% 118 ML BOTTLE TP SCH ×2 (09:00→21:07)
[2019-02-12 11:10] VITALS: BP 117/67
--- NOTE | 2019-02-12 12:39 | NUR ---
Seen and examined by Dr Wagner,no new orders noted.
[2019-02-12] MEDS: FOLIC ACID 1 MG TABLET GT SCH (20:52)
[2019-02-12] MEDS: THIAMINE HCL 100 MG TABLET GT SCH (20:53)
[2019-02-12] MEDS: CHOLECALCIFEROL 1,000 UNIT TABLET GT SCH (20:53)
[2019-02-12 21:06] VITALS: BP 105/58
[2019-02-13] MEDS: VITAL AF 1.2 1,000 ML LIQUID GT PRN (02:05)
--- NOTE | 2019-02-13 02:49 | NUR ---
PT ON CONT HT 50 VENT WITH SHILEY # [address] AND SECURED, WITH SAME CURRENT VENT SETTINGS, PT DOES ASSIST AT TIMES, GOOD COUGH EFFORT, CHANGE HME AND BRENNAN, ALL VENT ALARTMS GOOD, NO VENT CHANGES MADE, PT STABLE, SUCTIONED LIGHT PALE LESTERLL ZACKRETINJEANNE, Addendum: 02/13/19 at 0252 by BESS BATISTA Amended: Links added.
[2019-02-13] MEDS: ALBUTEROL SULFATE 2.5 MG/3 ML NEBU NEB SCH ×6 (03:03→22:32)
[2019-02-13] MEDS: IPRATROPIUM BROMIDE 0.5 MG/2.5 ML NEBU NEB SCH ×6 (03:03→22:32)
[2019-02-13] MEDS: OMEPRAZOLE 20 MG CAPSULE.DR GT SCH (05:20)
[2019-02-13] MEDS: BACLOFEN 20 MG TABLET GT SCH ×3 (05:20→22:26)
[2019-02-13 08:00] VITALS: BP 99/70
[2019-02-13] MEDS: DESMOPRESSIN 0.1 MG TABLET GT SCH (08:15)
[2019-02-13] MEDS: ACIDOPHILUS/BULGARICUS CHEW TAB GT SCH ×2 (08:15→20:50)
[2019-02-13] MEDS: COD LIVER OIL/ZINC OXIDE OINT 113 GM TUBE TP SCH ×2 (08:15→20:50)
[2019-02-13] MEDS: LEVETIRACETAM 500 MG/5 ML LIQUID UDC GT SCH ×2 (08:15→20:50)
--- NOTE | 2019-02-13 08:26 | NUR ---
PATIENT RECEIVED ON VENT WITH SETTINGS OF SIMV12, VT500, +5, PSV 10, 28% FIO2. VENT ALARMS ARE ON AND AUDIBLE. VENT IS PLUGGED INTO RED EMERGENCY OUTLET. NO SHORTNESS OF BREATH NOTED, BREATHING IS EVEN AND UNLABORED. PATIENT HAS A SHILEY [address], PATENT AND SECURED WITH A TRACH TIE. SUCTIONED PRN. TRACH CARE AND ORAL CARE DONE. HME CHANGED. AMBUBAG/BACK UP TRACH AT BEDSIDE. WILL CONTINUE TO MONITOR AND REPORT ANY CHANGES THROUGHOUT SHIFT.
[2019-02-13] MEDS: HYDROGEN PEROXIDE 3% 118 ML BOTTLE TP SCH ×2 (09:34→18:50)
[2019-02-13 20:05] VITALS: BP 99/69
[2019-02-13] MEDS: THIAMINE HCL 100 MG TABLET GT SCH (20:50)
[2019-02-13] MEDS: FOLIC ACID 1 MG TABLET GT SCH (20:50)
[2019-02-13] MEDS: CHOLECALCIFEROL 1,000 UNIT TABLET GT SCH (20:50)
[2019-02-14] MEDS: IPRATROPIUM BROMIDE 0.5 MG/2.5 ML NEBU NEB SCH ×6 (02:30→22:58)
[2019-02-14] MEDS: ALBUTEROL SULFATE 2.5 MG/3 ML NEBU NEB SCH ×6 (02:30→22:58)
[2019-02-14] MEDS: BACLOFEN 20 MG TABLET GT SCH ×3 (06:52→21:02)
[2019-02-14] MEDS: OMEPRAZOLE 20 MG CAPSULE.DR GT SCH (06:52)
[2019-02-14] MEDS: BISACODYL 10 MG SUPP.RECT RC PRN (07:12)
--- NOTE | 2019-02-14 07:58 | NUR ---
PATIENT RECEIVED ON VENT WITH SETTINGS OF SIMV12, VT500, +5, PSV 10, 28% FIO2. VENT ALARMS ARE ON AND AUDIBLE. VENT IS PLUGGED INTO RED EMERGENCY OUTLET. NO SOB NOTED, BREATHING IS EVEN AND UNLABORED. PATIENT HAS A SHILEY [address], PATENT AND SECURED WITH A TRACH TIE. SUCTIONED PRN. TRACH CARE DONE. HME CHANGED. AMBUBAG/BACK UP TRACH AT BEDSIDE. WILL CONTINUE TO MONITOR AND REPORT ANY CHANGES THROUGHOUT SHIFT.
[2019-02-14] MEDS: DESMOPRESSIN 0.1 MG TABLET GT SCH (08:22)
[2019-02-14] MEDS: ACIDOPHILUS/BULGARICUS CHEW TAB GT SCH ×2 (08:22→20:52)
[2019-02-14] MEDS: LEVETIRACETAM 500 MG/5 ML LIQUID UDC GT SCH ×2 (08:23→20:57)
[2019-02-14] MEDS: COD LIVER OIL/ZINC OXIDE OINT 113 GM TUBE TP SCH ×2 (08:23→20:52)
[2019-02-14] MEDS: HYDROGEN PEROXIDE 3% 118 ML BOTTLE TP SCH ×2 (09:35→20:50)
[2019-02-14 10:53] VITALS: BP 116/63
[2019-02-14] MEDS: CHOLECALCIFEROL 1,000 UNIT TABLET GT SCH (20:52)
[2019-02-14] MEDS: FOLIC ACID 1 MG TABLET GT SCH (20:52)
[2019-02-14] MEDS: THIAMINE HCL 100 MG TABLET GT SCH (20:57)
[2019-02-14 21:05] VITALS: BP 108/64
[2019-02-15] MEDS: VITAL AF 1.2 1,000 ML LIQUID GT PRN (02:38)
[2019-02-15] MEDS: IPRATROPIUM BROMIDE 0.5 MG/2.5 ML NEBU NEB SCH ×6 (02:58→23:04)
[2019-02-15] MEDS: ALBUTEROL SULFATE 2.5 MG/3 ML NEBU NEB SCH ×6 (02:58→23:04)
[2019-02-15] MEDS: BACLOFEN 20 MG TABLET GT SCH ×3 (05:46→22:36)
[2019-02-15] MEDS: OMEPRAZOLE 20 MG CAPSULE.DR GT SCH (05:46)
[2019-02-15] MEDS: COD LIVER OIL/ZINC OXIDE OINT 113 GM TUBE TP SCH ×2 (08:01→20:28)
[2019-02-15] MEDS: ACIDOPHILUS/BULGARICUS CHEW TAB GT SCH ×2 (08:01→20:26)
[2019-02-15] MEDS: DESMOPRESSIN 0.1 MG TABLET GT SCH (08:01)
[2019-02-15] MEDS: LEVETIRACETAM 500 MG/5 ML LIQUID UDC GT SCH ×2 (08:01→20:27)
[2019-02-15 09:19] VITALS: BP 115/58
[2019-02-15] MEDS: HYDROGEN PEROXIDE 3% 118 ML BOTTLE TP SCH ×2 (09:22→21:42)
--- NOTE | 2019-02-15 18:06 | NUR ---
Seen and examined by Dr Wagner,no new orders noted.
[2019-02-15] MEDS: FOLIC ACID 1 MG TABLET GT SCH (20:26)
[2019-02-15] MEDS: THIAMINE HCL 100 MG TABLET GT SCH (20:27)
[2019-02-15] MEDS: CHOLECALCIFEROL 1,000 UNIT TABLET GT SCH (20:28)
[2019-02-15 20:43] VITALS: BP 99/60
--- NOTE | 2019-02-15 22:29 | NUR ---
Trached resident received on HT-50 ventilator with the following settings of SIMV 12, Vt500, PEEP+5, PS10, FIO2 @ 28%. She is trached with Narda#6 DCT trach, which is in the place and secure with trach ties. No respiratory distress noted at this time. Trach care done without complications. In-line HHN tx given, no adverse reaction noted. BMV and back up trach at bedside. Vent and alarms checked and are on/audible. Will continue to monitor.
[2019-02-16] MEDS: ALBUTEROL SULFATE 2.5 MG/3 ML NEBU NEB SCH ×6 (03:14→23:05)
[2019-02-16] MEDS: IPRATROPIUM BROMIDE 0.5 MG/2.5 ML NEBU NEB SCH ×6 (03:14→23:05)
[2019-02-16] MEDS: VITAL AF 1.2 1,000 ML LIQUID GT PRN (03:30)
[2019-02-16] MEDS: OMEPRAZOLE 20 MG CAPSULE.DR GT SCH (05:07)
[2019-02-16] MEDS: BACLOFEN 20 MG TABLET GT SCH ×3 (05:07→22:35)
[2019-02-16 08:00] VITALS: BP 109/61
[2019-02-16] MEDS: DESMOPRESSIN 0.1 MG TABLET GT SCH (08:17)
[2019-02-16] MEDS: LEVETIRACETAM 500 MG/5 ML LIQUID UDC GT SCH ×2 (08:17→20:13)
[2019-02-16] MEDS: ACIDOPHILUS/BULGARICUS CHEW TAB GT SCH ×2 (08:17→20:13)
[2019-02-16] MEDS: COD LIVER OIL/ZINC OXIDE OINT 113 GM TUBE TP SCH ×2 (08:18→20:14)
[2019-02-16] MEDS: HYDROGEN PEROXIDE 3% 118 ML BOTTLE TP SCH ×2 (09:00→21:10)
[2019-02-16 20:00] VITALS: BP 110/57
[2019-02-16] MEDS: FOLIC ACID 1 MG TABLET GT SCH (20:13)
[2019-02-16] MEDS: CHOLECALCIFEROL 1,000 UNIT TABLET GT SCH (20:14)
[2019-02-16] MEDS: THIAMINE HCL 100 MG TABLET GT SCH (20:14)
[2019-02-17] MEDS: VITAL AF 1.2 1,000 ML LIQUID GT PRN ×2 (00:45→23:30)
[2019-02-17] MEDS: ALBUTEROL SULFATE 2.5 MG/3 ML NEBU NEB SCH ×6 (04:01→23:00)
[2019-02-17] MEDS: IPRATROPIUM BROMIDE 0.5 MG/2.5 ML NEBU NEB SCH ×6 (04:01→23:00)
[2019-02-17] MEDS: OMEPRAZOLE 20 MG CAPSULE.DR GT SCH (05:52)
[2019-02-17] MEDS: BACLOFEN 20 MG TABLET GT SCH ×3 (05:52→21:46)
--- NOTE | 2019-02-17 07:45 | NUR ---
PT RECEIVED ON VENT SIMV 12 VT 500 PEEP 5 PS 10 FIO2 28%. TRACH IN PLACED AND SECURED WITH TRACH TIE. BACK UP TRACH AND AMBU BAG AT BEDSIDE. TRACH CARE DONE WITHOUT COMPLICATIONS NOTED. IN LINE TX GIVEN WITH UD ALBUTEROL + UD ATROVENT ORDERED. SUCTION LAVAGE PRN. VENT CHECKED, ALARMS WORKING WELL AND AUDIBLE. NO SIGNS OF RESPIRATORY DISTRESS NOTED AT THIS TIME. WILL CONTINUE TO MONITOR.
[2019-02-17 08:00] VITALS: BP 110/64
[2019-02-17] MEDS: ACIDOPHILUS/BULGARICUS CHEW TAB GT SCH ×2 (08:27→20:17)
[2019-02-17] MEDS: COD LIVER OIL/ZINC OXIDE OINT 113 GM TUBE TP SCH ×2 (08:27→20:18)
[2019-02-17] MEDS: LEVETIRACETAM 500 MG/5 ML LIQUID UDC GT SCH ×2 (08:27→20:17)
[2019-02-17] MEDS: DESMOPRESSIN 0.1 MG TABLET GT SCH (08:27)
[2019-02-17] MEDS: HYDROGEN PEROXIDE 3% 118 ML BOTTLE TP SCH ×2 (09:41→21:39)
--- NOTE | 2019-02-17 13:49 | NUR ---
SEEN BY EMMY WAY.
[2019-02-17 20:07] VITALS: BP 101/69
[2019-02-17] MEDS: FOLIC ACID 1 MG TABLET GT SCH (20:17)
[2019-02-17] MEDS: THIAMINE HCL 100 MG TABLET GT SCH (20:18)
[2019-02-17] MEDS: CHOLECALCIFEROL 1,000 UNIT TABLET GT SCH (20:18)
[2019-02-18] MEDS: IPRATROPIUM BROMIDE 0.5 MG/2.5 ML NEBU NEB SCH ×6 (03:07→22:57)
[2019-02-18] MEDS: ALBUTEROL SULFATE 2.5 MG/3 ML NEBU NEB SCH ×6 (03:07→22:57)
[2019-02-18] MEDS: OMEPRAZOLE 20 MG CAPSULE.DR GT SCH (05:02)
[2019-02-18] MEDS: BACLOFEN 20 MG TABLET GT SCH ×3 (05:02→21:09)
--- NOTE | 2019-02-18 07:36 | NUR ---
PT RECEIVED TRACH TO VENT ON SETTINGS OF SIMV 12, VT 500, PEEP +5, PS 10, AND 28% FIO2. SHILEY #6 TRACH IS PATENT AND SECURE. VENT PARAMETERS AND ALARMS CHECKED, ALARMS ARE AUDIBLE. IN-LINE TX TOLERATED WELL, NO ADVERSE REACTION NOTED. TRACH CARE DONE, TRACH SITE CLEAN AND DRY. PT IS TOLERATING VENT SETTINGS WELL, NO RESP. DISTRESS NOTED AT THIS TIME. AMBU-BAG AT BEDSIDE. VENT PLUGGED INTO RED OUTLET. SUCTION PRN. WILL CONTINUE TO MONITOR.
[2019-02-18] MEDS: DESMOPRESSIN 0.1 MG TABLET GT SCH (08:18)
[2019-02-18] MEDS: ACIDOPHILUS/BULGARICUS CHEW TAB GT SCH ×2 (08:18→21:09)
[2019-02-18] MEDS: LEVETIRACETAM 500 MG/5 ML LIQUID UDC GT SCH ×2 (08:19→20:53)
[2019-02-18] MEDS: COD LIVER OIL/ZINC OXIDE OINT 113 GM TUBE TP SCH ×2 (08:19→20:52)
[2019-02-18] MEDS: HYDROGEN PEROXIDE 3% 118 ML BOTTLE TP SCH ×2 (10:20→20:52)
--- NOTE | 2019-02-18 11:26 | NUR ---
SEEN BY EMMY WAY.
--- NOTE | 2019-02-18 11:28 | NUR ---
SEEN BY EMMY WAY.
[2019-02-18 12:10] VITALS: BP 100/57
[2019-02-18] MEDS: CHOLECALCIFEROL 1,000 UNIT TABLET GT SCH (20:52)
[2019-02-18] MEDS: FOLIC ACID 1 MG TABLET GT SCH (20:52)
[2019-02-18] MEDS: THIAMINE HCL 100 MG TABLET GT SCH (20:52)
[2019-02-18] MEDS: VITAL AF 1.2 1,000 ML LIQUID GT PRN (21:09)
[2019-02-18 22:21] VITALS: BP 104/67
[2019-02-19] MEDS: ALBUTEROL SULFATE 2.5 MG/3 ML NEBU NEB SCH ×6 (03:31→22:48)
[2019-02-19] MEDS: IPRATROPIUM BROMIDE 0.5 MG/2.5 ML NEBU NEB SCH ×6 (03:31→22:48)
[2019-02-19] MEDS: BACLOFEN 20 MG TABLET GT SCH ×3 (05:06→21:05)
[2019-02-19] MEDS: OMEPRAZOLE 20 MG CAPSULE.DR GT SCH (05:06)
[2019-02-19] MEDS: HYDROGEN PEROXIDE 3% 118 ML BOTTLE TP SCH ×2 (08:33→20:43)
[2019-02-19] MEDS: DESMOPRESSIN 0.1 MG TABLET GT SCH (09:00)
[2019-02-19] MEDS: ACIDOPHILUS/BULGARICUS CHEW TAB GT SCH ×2 (09:00→20:29)
[2019-02-19] MEDS: LEVETIRACETAM 500 MG/5 ML LIQUID UDC GT SCH ×2 (09:00→20:29)
[2019-02-19] MEDS: COD LIVER OIL/ZINC OXIDE OINT 113 GM TUBE TP SCH ×2 (09:01→20:29)
[2019-02-19 11:35] VITALS: BP 139/82
[2019-02-19] MEDS: FOLIC ACID 1 MG TABLET GT SCH (20:29)
[2019-02-19] MEDS: THIAMINE HCL 100 MG TABLET GT SCH (20:29)
[2019-02-19] MEDS: CHOLECALCIFEROL 1,000 UNIT TABLET GT SCH (20:29)
[2019-02-19 22:00] VITALS: BP 100/62
[2019-02-19] MEDS: VITAL AF 1.2 1,000 ML LIQUID GT PRN (22:36)
[2019-02-20] MEDS: ALBUTEROL SULFATE 2.5 MG/3 ML NEBU NEB SCH ×6 (02:30→22:30)
[2019-02-20] MEDS: IPRATROPIUM BROMIDE 0.5 MG/2.5 ML NEBU NEB SCH ×6 (02:30→22:30)
[2019-02-20] MEDS: OMEPRAZOLE 20 MG CAPSULE.DR GT SCH (05:14)
[2019-02-20] MEDS: BACLOFEN 20 MG TABLET GT SCH ×3 (05:14→21:06)
[2019-02-20] MEDS: BISACODYL 10 MG SUPP.RECT RC PRN (05:14)
[2019-02-20 08:00] VITALS: BP 131/71
[2019-02-20] MEDS: ACIDOPHILUS/BULGARICUS CHEW TAB GT SCH ×2 (08:55→20:33)
[2019-02-20] MEDS: DESMOPRESSIN 0.1 MG TABLET GT SCH (08:55)
[2019-02-20] MEDS: LEVETIRACETAM 500 MG/5 ML LIQUID UDC GT SCH ×2 (08:56→20:34)
[2019-02-20] MEDS: COD LIVER OIL/ZINC OXIDE OINT 113 GM TUBE TP SCH ×2 (08:56→20:34)
[2019-02-20] MEDS: HYDROGEN PEROXIDE 3% 118 ML BOTTLE TP SCH ×2 (09:00→20:58)
--- NOTE | 2019-02-20 11:00 | NUR ---
SEEN BY EMMY WAY.
--- NOTE | 2019-02-20 18:42 | NUR ---
Pt received on HT-50 ventilator with the following settings of SIMV-12, Vt-500, PEEP+5, PS-10, FIO2-28%, trached with Shiley#6 DCT trach, which is in the place and secure. No respiratory distress noted. Airway care done, pt responded to physical stimuli. In-line HHN tx with 2.5mg Albuterol+0.5mg Atrovent given, pt tolerated well. HME changed. Resus. bag and back up trach at bedside. Vent and alarms checked and reset.
[2019-02-20] MEDS: FOLIC ACID 1 MG TABLET GT SCH (20:33)
[2019-02-20] MEDS: CHOLECALCIFEROL 1,000 UNIT TABLET GT SCH (20:34)
[2019-02-20] MEDS: THIAMINE HCL 100 MG TABLET GT SCH (20:34)
[2019-02-20] MEDS: VITAL AF 1.2 1,000 ML LIQUID GT PRN (21:24)
[2019-02-20 22:46] VITALS: BP 110/60
[2019-02-21] MEDS: IPRATROPIUM BROMIDE 0.5 MG/2.5 ML NEBU NEB SCH ×6 (02:30→22:34)
[2019-02-21] MEDS: ALBUTEROL SULFATE 2.5 MG/3 ML NEBU NEB SCH ×6 (02:30→22:34)
[2019-02-21] MEDS: OMEPRAZOLE 20 MG CAPSULE.DR GT SCH (05:50)
[2019-02-21] MEDS: BACLOFEN 20 MG TABLET GT SCH ×3 (05:50→21:13)
[2019-02-21] MEDS: HYDROGEN PEROXIDE 3% 118 ML BOTTLE TP SCH ×2 (08:30→19:06)
[2019-02-21] MEDS: LEVETIRACETAM 500 MG/5 ML LIQUID UDC GT SCH ×2 (08:57→20:29)
[2019-02-21] MEDS: DESMOPRESSIN 0.1 MG TABLET GT SCH (08:57)
[2019-02-21] MEDS: ACIDOPHILUS/BULGARICUS CHEW TAB GT SCH ×2 (08:57→20:29)
[2019-02-21] MEDS: COD LIVER OIL/ZINC OXIDE OINT 113 GM TUBE TP SCH ×2 (08:58→20:29)
[2019-02-21 09:05] VITALS: BP 115/51
[2019-02-21 09:24] VITALS: BP 115/51
[2019-02-21 20:01] VITALS: BP 96/51
[2019-02-21] MEDS: CHOLECALCIFEROL 1,000 UNIT TABLET GT SCH (20:29)
[2019-02-21] MEDS: THIAMINE HCL 100 MG TABLET GT SCH (20:29)
[2019-02-21] MEDS: FOLIC ACID 1 MG TABLET GT SCH (20:29)
[2019-02-21] MEDS: VITAL AF 1.2 1,000 ML LIQUID GT PRN (22:32)
[2019-02-22] MEDS: IPRATROPIUM BROMIDE 0.5 MG/2.5 ML NEBU NEB SCH ×6 (02:30→23:28)
[2019-02-22] MEDS: ALBUTEROL SULFATE 2.5 MG/3 ML NEBU NEB SCH ×6 (02:30→23:28)
[2019-02-22] MEDS: OMEPRAZOLE 20 MG CAPSULE.DR GT SCH (05:28)
[2019-02-22] MEDS: BACLOFEN 20 MG TABLET GT SCH ×3 (05:28→22:54)
[2019-02-22] MEDS: COD LIVER OIL/ZINC OXIDE OINT 113 GM TUBE TP SCH ×2 (08:33→20:32)
[2019-02-22] MEDS: LEVETIRACETAM 500 MG/5 ML LIQUID UDC GT SCH ×2 (08:33→20:32)
[2019-02-22] MEDS: ACIDOPHILUS/BULGARICUS CHEW TAB GT SCH ×2 (08:33→20:32)
[2019-02-22] MEDS: DESMOPRESSIN 0.1 MG TABLET GT SCH (08:33)
[2019-02-22] MEDS: HYDROGEN PEROXIDE 3% 118 ML BOTTLE TP SCH ×2 (09:00→21:00)
[2019-02-22 11:22] VITALS: BP 94/49
--- NOTE | 2019-02-22 13:30 | NUR ---
Pharmacy Update from Today's 02/22/19 IDT Meeting Note: Patient was transferred from subacute floor to CCU 11/25-12/14 d/t recurrent fevers and subsequently found with asp PNA with empyema resulting in chest tube placement and drainage. Pt also found with c. diff. Pt was stabilized, treated, and transferred back on abx cefepime IV, vanco po, flagyl for x4 more weeks per ID, now completed. VS: Temp 97 BP 94/49 HR 67 LABS: (from 02/01/19, no new labs) Wbc 6.7H/H 9.2/26.8Plt 281 Na 137K 3.7Cl 103CO2 25BUN/Scr 18/0.4 BS 100Ca 8.8phos 3.6Mg 1.8 MEDICATION USE REVIEWED: > Pt not on any anti-psych medications > Pt continues Keppra 250mg q12h since 11/09/18; CrCl >100ml/min, renal function ok for current dose. No seizure episodes noted. > Pt on DDAVP 0.05mg GT daily since 12/30/18 for diabetes insipidus PRN MED USAGE: (January) Tylenol for pain/temp used x0 Artificial Tears used x0 Bisacodyl Supp used x2 NEW ORDERS NOTED: > NA Patient was reviewed and discussed in depth with no medication issues or concerns at this time noted. Remains stable on current regimen, no further recs at this time. Will continue to follow
--- NOTE | 2019-02-22 16:42 | NUR ---
INTERDISCIPLINARY PLAN OF CARE CONFERENCE was held today. Patient's mother lives in [place] and is unable to attend the meeting. Dr. Wagner and the Interdisciplinary Team reviewed the current plan of care in detail. RN reported on patient's medical condition. No major changes in condition were reported. See RN IDT conference notes. See also all other disciplines IDT notes and physician's progress notes for additional details.
[2019-02-22] MEDS: VITAL AF 1.2 1,000 ML LIQUID GT PRN (17:29)
[2019-02-22 20:00] VITALS: BP 99/55
[2019-02-22] MEDS: FOLIC ACID 1 MG TABLET GT SCH (20:32)
[2019-02-22] MEDS: THIAMINE HCL 100 MG TABLET GT SCH (20:32)
[2019-02-22] MEDS: CHOLECALCIFEROL 1,000 UNIT TABLET GT SCH (20:32)
--- NOTE | 2019-02-23 02:24 | NUR ---
PT ON CONT HT 50 VENT WITH SHILEY #[address] AND SECURED, WITH SAME CURRENT VENT SETTINGS, PT DOES ASSIST AT TIMES, GOOD COUGH EFFORT, SUCTIONED LIGHT PALE YELL TINGE SECRETIONS, CHECK CUFF, CHANGE HME, TRACH CARE DONE, ALL VENT ALARMS GOOD, NO VENT CHANGES MADE, PT STABLE, AMBU BAG AT BEDSIDE.Neel PACHECO RCP Addendum: 02/23/19 at 0227 by BESS PACHECO RT Amended: Links added.
[2019-02-23] MEDS: IPRATROPIUM BROMIDE 0.5 MG/2.5 ML NEBU NEB SCH ×6 (03:34→22:36)
[2019-02-23] MEDS: ALBUTEROL SULFATE 2.5 MG/3 ML NEBU NEB SCH ×6 (03:34→22:36)
[2019-02-23] MEDS: OMEPRAZOLE 20 MG CAPSULE.DR GT SCH (06:08)
[2019-02-23] MEDS: BACLOFEN 20 MG TABLET GT SCH ×3 (06:08→22:22)
[2019-02-23] MEDS: ACIDOPHILUS/BULGARICUS CHEW TAB GT SCH ×2 (08:28→20:45)
[2019-02-23] MEDS: DESMOPRESSIN 0.1 MG TABLET GT SCH (08:28)
[2019-02-23] MEDS: COD LIVER OIL/ZINC OXIDE OINT 113 GM TUBE TP SCH ×2 (08:29→20:45)
[2019-02-23] MEDS: LEVETIRACETAM 500 MG/5 ML LIQUID UDC GT SCH ×2 (08:29→20:45)
[2019-02-23 08:30] VITALS: BP 102/51
[2019-02-23] MEDS: HYDROGEN PEROXIDE 3% 118 ML BOTTLE TP SCH ×2 (09:00→19:01)
--- NOTE | 2019-02-23 18:20 | NUR ---
seen and examined by Dr Wagner ,aware pt's family request to Discontinue the f/c with new orders noted and carried out.
[2019-02-23 20:00] VITALS: BP 101/61
[2019-02-23] MEDS: FOLIC ACID 1 MG TABLET GT SCH (20:45)
[2019-02-23] MEDS: THIAMINE HCL 100 MG TABLET GT SCH (20:45)
[2019-02-23] MEDS: CHOLECALCIFEROL 1,000 UNIT TABLET GT SCH (20:45)
--- NOTE | 2019-02-24 | NUR ---
FC Dcd as ordered.
[2019-02-24] MEDS: ALBUTEROL SULFATE 2.5 MG/3 ML NEBU NEB SCH ×6 (02:33→22:43)
[2019-02-24] MEDS: IPRATROPIUM BROMIDE 0.5 MG/2.5 ML NEBU NEB SCH ×6 (02:33→22:43)
[2019-02-24] MEDS: BACLOFEN 20 MG TABLET GT SCH ×3 (05:42→21:02)
[2019-02-24] MEDS: OMEPRAZOLE 20 MG CAPSULE.DR GT SCH (05:43)
--- NOTE | 2019-02-24 06:00 | NUR ---
PVR done. Residuals 200cc .Pt. urinating well.
[2019-02-24] MEDS: HYDROGEN PEROXIDE 3% 118 ML BOTTLE TP SCH ×2 (07:46→21:04)
[2019-02-24] MEDS: ACIDOPHILUS/BULGARICUS CHEW TAB GT SCH ×2 (08:34→20:54)
[2019-02-24] MEDS: DESMOPRESSIN 0.1 MG TABLET GT SCH (08:34)
[2019-02-24] MEDS: LEVETIRACETAM 500 MG/5 ML LIQUID UDC GT SCH ×2 (08:35→21:01)
[2019-02-24] MEDS: COD LIVER OIL/ZINC OXIDE OINT 113 GM TUBE TP SCH ×2 (08:35→21:01)
[2019-02-24 10:54] VITALS: BP 98/52
[2019-02-24 20:31] VITALS: BP 124/70
[2019-02-24] MEDS: CHOLECALCIFEROL 1,000 UNIT TABLET GT SCH (21:01)
[2019-02-24] MEDS: FOLIC ACID 1 MG TABLET GT SCH (21:01)
[2019-02-24] MEDS: THIAMINE HCL 100 MG TABLET GT SCH (21:01)
--- NOTE | 2019-02-25 | NUR ---
Pt. urinating well. PVR done ,51cc of residuals noted.
[2019-02-25] MEDS: IPRATROPIUM BROMIDE 0.5 MG/2.5 ML NEBU NEB SCH ×6 (02:35→22:48)
[2019-02-25] MEDS: ALBUTEROL SULFATE 2.5 MG/3 ML NEBU NEB SCH ×6 (02:35→22:48)
[2019-02-25] MEDS: OMEPRAZOLE 20 MG CAPSULE.DR GT SCH (05:53)
[2019-02-25] MEDS: BACLOFEN 20 MG TABLET GT SCH ×3 (05:53→22:35)
[2019-02-25] MEDS: ACIDOPHILUS/BULGARICUS CHEW TAB GT SCH ×2 (08:28→20:41)
[2019-02-25] MEDS: DESMOPRESSIN 0.1 MG TABLET GT SCH (08:28)
[2019-02-25] MEDS: COD LIVER OIL/ZINC OXIDE OINT 113 GM TUBE TP SCH ×2 (08:28→20:42)
[2019-02-25] MEDS: LEVETIRACETAM 500 MG/5 ML LIQUID UDC GT SCH ×2 (08:28→20:41)
[2019-02-25] MEDS: HYDROGEN PEROXIDE 3% 118 ML BOTTLE TP SCH ×2 (09:00→21:51)
[2019-02-25 11:24] VITALS: BP 114/52
--- NOTE | 2019-02-25 13:39 | NUR ---
10:40am: Per request from Dr. Wagner to schedule a neurosurgical follow-up consultation for patient at [facility], JOSUÉ called [facility] Department of NeuroSurgery. JOSUÉ spoke with Darlene, who stated that this was the [facility] and that SW would have to call [facility] for an appointment. 10:50am: SW called [facility] [phone] and was transferred to the specialty clinic [phone]. JOSUÉ spoke with Thea, and requested a follow-up neurosurgical consultation appointment since patient's initial surgery was performed at [facility] in December 2017. Thea informed this JOSUÉ that patient would need to be brought in through the [facility] emergency room, be evaluated by an ER doctor, and then get referred for a neurosurgical consultation. Patient's insurance was discussed, and Thea stated due to patient's [employer] insurance, patient would not be able to get referred to their neurosurgeons, because that was not part of their health plan. Thea stated that patient has the option of switching her insurance to the [facility] health plan, but that she would still have to go through the process of going through their ER, getting evaluated by a physician, and then being referred to a neurosurgeon. JOSUÉ thanked Thea for her time and for the information provided. JOSUÉ discussed above with Subacute Director Ruben Cole, and it was agreed to discuss above with Dr. Wagner during his next visit to subacute, in order to plan how to proceed. SW to follow-up with Dr. Wagner.
--- NOTE | 2019-02-25 17:25 | NUR ---
RECEIVED IN STABLE CONDITION. TRACH CARE DONE WITHOUT COMPLICATIONS. SUCTIONED NEEDED. CHANGED HME.
[2019-02-25] MEDS: FOLIC ACID 1 MG TABLET GT SCH (20:41)
[2019-02-25] MEDS: CHOLECALCIFEROL 1,000 UNIT TABLET GT SCH (20:42)
[2019-02-25] MEDS: THIAMINE HCL 100 MG TABLET GT SCH (20:42)
[2019-02-25 20:49] VITALS: BP 123/59
--- NOTE | 2019-02-26 00:19 | NUR ---
Resident received on HT-50 ventilator with the following settings of SIMV 12, Vt500, PEEP+5, PS10, FIO2 @ 28%. She is trached with Narda#6 DCT trach, which is in the place and secure with trach ties. No respiratory distress noted at this time. Trach care done without complications. In-line HHN tx given, no adverse reaction noted. Suctioned small amounts of thick whitish yellow secretions. BMV and back up trach at bedside. Vent and alarms checked and are on/audible. Will continue to monitor throughout shift.
[2019-02-26] MEDS: IPRATROPIUM BROMIDE 0.5 MG/2.5 ML NEBU NEB SCH ×6 (03:02→22:37)
[2019-02-26] MEDS: ALBUTEROL SULFATE 2.5 MG/3 ML NEBU NEB SCH ×6 (03:02→22:37)
[2019-02-26] MEDS: BACLOFEN 20 MG TABLET GT SCH ×3 (05:44→22:24)
[2019-02-26] MEDS: OMEPRAZOLE 20 MG CAPSULE.DR GT SCH (05:44)
[2019-02-26 08:00] VITALS: BP 97/53
--- NOTE | 2019-02-26 08:15 | NUR ---
Pt received in semi saldana position, obtunded, unable to communicate, and on continuous mechanical ventilation via Shiley 6 DCT trach. Pt is on [place] HT-50 ventilator with ordered settings of SIMV-12, VT-500, PEEP+5, PS-10, FIO2-28% Tolerating vent settings well. SpO2-99%. Trach is patent and secured. Minimal occluding volume technique used to assess cuff inflation. In-line nebulizer treatments given as ordered, Q4 with Albuterol/Atrovent. Treatments tolerated well, with no adverse reactions noted. Sxn'd and lavaged as needed. Suctioned small amounts of yellow/white secretions. HME changed & trach care done. PPE used. No signs or symptoms of respiratory distress. Ventilator alarm parameters checked, on and audible. Vent plugged into red emergency outlet. Bag/valve/mask and backup trach at bedside. Will continue to monitor.
[2019-02-26] MEDS: HYDROGEN PEROXIDE 3% 118 ML BOTTLE TP SCH ×2 (09:03→18:52)
[2019-02-26] MEDS: DESMOPRESSIN 0.1 MG TABLET GT SCH (09:18)
[2019-02-26] MEDS: COD LIVER OIL/ZINC OXIDE OINT 113 GM TUBE TP SCH ×2 (09:18→20:20)
[2019-02-26] MEDS: LEVETIRACETAM 500 MG/5 ML LIQUID UDC GT SCH ×2 (09:18→20:20)
[2019-02-26] MEDS: ACIDOPHILUS/BULGARICUS CHEW TAB GT SCH ×2 (09:18→20:20)
[2019-02-26] MEDS: VITAL AF 1.2 1,000 ML LIQUID GT PRN (16:37)
[2019-02-26] MEDS: CHOLECALCIFEROL 1,000 UNIT TABLET GT SCH (20:20)
[2019-02-26] MEDS: THIAMINE HCL 100 MG TABLET GT SCH (20:20)
[2019-02-26] MEDS: FOLIC ACID 1 MG TABLET GT SCH (20:20)
[2019-02-26 20:33] VITALS: BP 120/51
[2019-02-27] MEDS: ALBUTEROL SULFATE 2.5 MG/3 ML NEBU NEB SCH ×6 (02:35→22:30)
[2019-02-27] MEDS: IPRATROPIUM BROMIDE 0.5 MG/2.5 ML NEBU NEB SCH ×6 (02:35→22:30)
[2019-02-27] MEDS: OMEPRAZOLE 20 MG CAPSULE.DR GT SCH (05:11)
[2019-02-27] MEDS: BACLOFEN 20 MG TABLET GT SCH ×3 (05:11→22:08)
[2019-02-27 08:00] VITALS: BP 110/67
[2019-02-27] MEDS: DESMOPRESSIN 0.1 MG TABLET GT SCH (08:06)
[2019-02-27] MEDS: LEVETIRACETAM 500 MG/5 ML LIQUID UDC GT SCH ×2 (08:06→20:34)
[2019-02-27] MEDS: ACIDOPHILUS/BULGARICUS CHEW TAB GT SCH ×2 (08:06→20:33)
[2019-02-27] MEDS: COD LIVER OIL/ZINC OXIDE OINT 113 GM TUBE TP SCH ×2 (08:07→20:35)
[2019-02-27] MEDS: HYDROGEN PEROXIDE 3% 118 ML BOTTLE TP SCH ×2 (09:03→18:54)
[2019-02-27] MEDS: VITAL AF 1.2 1,000 ML LIQUID GT PRN (12:25)
[2019-02-27] MEDS: FOLIC ACID 1 MG TABLET GT SCH (20:33)
[2019-02-27] MEDS: CHOLECALCIFEROL 1,000 UNIT TABLET GT SCH (20:34)
[2019-02-27] MEDS: THIAMINE HCL 100 MG TABLET GT SCH (20:34)
[2019-02-27 20:59] VITALS: BP 118/68
[2019-02-28] MEDS: IPRATROPIUM BROMIDE 0.5 MG/2.5 ML NEBU NEB SCH ×6 (03:39→23:09)
[2019-02-28] MEDS: ALBUTEROL SULFATE 2.5 MG/3 ML NEBU NEB SCH ×6 (03:39→23:09)
[2019-02-28] MEDS: BACLOFEN 20 MG TABLET GT SCH ×3 (05:17→22:47)
[2019-02-28] MEDS: OMEPRAZOLE 20 MG CAPSULE.DR GT SCH (05:17)
[2019-02-28 07:10] LABS: BASOPHILS # (AUTO) 0.1 K/uL (0.0-8.0); BASOPHILS % (AUTO) 0.9 % (0.0-2.0); EOSINOPHILS # (AUTO) 0.4 K/uL (0.0-0.7); EOSINOPHILS % (AUTO) 5.9 % (0.0-7.0); HEMATOCRIT 33.3 % (31.2-41.9); HEMOGLOBIN 11.6 g/dL (10.9-14.3); LYMPHOCYTES # (AUTO) 2.1 K/uL (20.0-40.0); LYMPHOCYTES % (AUTO) 29.5 % (20.5-51.5); MEAN CORPUSCULAR HEMOGLOBIN 32.1 uug (24.7-32.8); MEAN CORPUSCULAR HGB CONC 35 g/dL (32.3-35.6); MEAN CORPUSCULAR VOLUME 92.3 fL (75.5-95.3); MONOCYTES # (AUTO) 0.5 K/uL (2.0-10.0); MONOCYTES % (AUTO) 7.4 % (0.0-11.0); NEUTROPHILS % (AUTO) 56.3 % (38.5-71.5); PLATELET COUNT (AUTO) 310 K/uL (179-408); RED BLOOD CELL COUNT(AUTO) 3.61 MIL/uL (3.63-4.92)
[2019-02-28 07:24] LABS: BILIRUBIN,TOTAL 0.4 mg/dL (0.2-1.0); CREATININE 0.6 mg/dL (0.6-1.3); POTASSIUM 3.9 mmol/L (3.5-5.1); TOTAL PROTEIN, SERUM 7.4 g/dL (6.4-8.2)
[2019-02-28 08:00] VITALS: BP 114/68
[2019-02-28] MEDS: LEVETIRACETAM 500 MG/5 ML LIQUID UDC GT SCH ×2 (08:16→20:08)
[2019-02-28] MEDS: ACIDOPHILUS/BULGARICUS CHEW TAB GT SCH ×2 (08:16→20:08)
[2019-02-28] MEDS: DESMOPRESSIN 0.1 MG TABLET GT SCH (08:16)
[2019-02-28] MEDS: COD LIVER OIL/ZINC OXIDE OINT 113 GM TUBE TP SCH ×2 (08:16→20:11)
[2019-02-28] MEDS: HYDROGEN PEROXIDE 3% 118 ML BOTTLE TP SCH ×2 (09:00→21:10)
[2019-02-28] MEDS: VITAL AF 1.2 1,000 ML LIQUID GT PRN (11:08)
--- NOTE | 2019-02-28 11:53 | NUR ---
Seen by Marguerite CALVO, notified patient has been voiding, no residuals from pvr, check pvr q6hrs order discontinued.
[2019-02-28] MEDS: ACETAMINOPHEN 650 MG/20 ML UDC- SA PATIENTS-PAIN ONLY GT PRN (17:06)
[2019-02-28] MEDS: FOLIC ACID 1 MG TABLET GT SCH (20:08)
[2019-02-28] MEDS: THIAMINE HCL 100 MG TABLET GT SCH (20:10)
[2019-02-28] MEDS: CHOLECALCIFEROL 1,000 UNIT TABLET GT SCH (20:11)
[2019-02-28 20:47] VITALS: BP 121/61
[2019-03-01] MEDS: IPRATROPIUM BROMIDE 0.5 MG/2.5 ML NEBU NEB SCH ×6 (03:08→22:58)
[2019-03-01] MEDS: ALBUTEROL SULFATE 2.5 MG/3 ML NEBU NEB SCH ×6 (03:08→22:58)
[2019-03-01] MEDS: BACLOFEN 20 MG TABLET GT SCH ×3 (05:13→22:30)
[2019-03-01] MEDS: OMEPRAZOLE 20 MG CAPSULE.DR GT SCH (05:13)
[2019-03-01 08:00] VITALS: BP 92/53
[2019-03-01] MEDS: LEVETIRACETAM 500 MG/5 ML LIQUID UDC GT SCH ×2 (08:14→20:33)
[2019-03-01] MEDS: DESMOPRESSIN 0.1 MG TABLET GT SCH (08:14)
[2019-03-01] MEDS: ACIDOPHILUS/BULGARICUS CHEW TAB GT SCH ×2 (08:14→20:32)
[2019-03-01] MEDS: COD LIVER OIL/ZINC OXIDE OINT 113 GM TUBE TP SCH ×2 (08:15→20:34)
[2019-03-01] MEDS: ACETAMINOPHEN 650 MG/20 ML UDC- SA PATIENTS-PAIN ONLY GT PRN (08:15)
[2019-03-01] MEDS: HYDROGEN PEROXIDE 3% 118 ML BOTTLE TP SCH ×2 (09:00→20:44)
[2019-03-01] MEDS: VITAL AF 1.2 1,000 ML LIQUID GT PRN (10:53)
--- NOTE | 2019-03-01 19:20 | NUR ---
Received pt on HT-50 ventilator with the following settings of SIMV-12, Vt-500, PEEP+5, PS-10, FIO2-28%, trached with Shiley#6 DCT trach, which is in the place and secure. No respiratory distress noted. Airway care done, pt responded to physical stimuli. In-line HHN tx with 2.5mg Albuterol+0.5mg Atrovent given, no adverse reaction noted. HME changed. Pt has a gauze between her lips. Resus. bag and back up trach at bedside. Vent and alarms checked and reset.
[2019-03-01] MEDS: THIAMINE HCL 100 MG TABLET GT SCH (20:33)
[2019-03-01] MEDS: FOLIC ACID 1 MG TABLET GT SCH (20:33)
[2019-03-01] MEDS: CHOLECALCIFEROL 1,000 UNIT TABLET GT SCH (20:34)
[2019-03-01 21:22] VITALS: BP 114/54
[2019-03-02] MEDS: ALBUTEROL SULFATE 2.5 MG/3 ML NEBU NEB SCH ×6 (03:08→22:35)
[2019-03-02] MEDS: IPRATROPIUM BROMIDE 0.5 MG/2.5 ML NEBU NEB SCH ×6 (03:08→22:35)
[2019-03-02] MEDS: OMEPRAZOLE 20 MG CAPSULE.DR GT SCH (05:46)
[2019-03-02] MEDS: BACLOFEN 20 MG TABLET GT SCH ×3 (05:46→22:27)
[2019-03-02] MEDS: VITAL AF 1.2 1,000 ML LIQUID GT PRN (06:00)
[2019-03-02] MEDS: HYDROGEN PEROXIDE 3% 118 ML BOTTLE TP SCH ×2 (07:50→18:53)
[2019-03-02] MEDS: LEVETIRACETAM 500 MG/5 ML LIQUID UDC GT SCH ×2 (08:25→20:31)
[2019-03-02] MEDS: DESMOPRESSIN 0.1 MG TABLET GT SCH (08:25)
[2019-03-02] MEDS: ACIDOPHILUS/BULGARICUS CHEW TAB GT SCH ×2 (08:25→20:30)
[2019-03-02] MEDS: COD LIVER OIL/ZINC OXIDE OINT 113 GM TUBE TP SCH ×2 (08:25→20:31)
[2019-03-02 08:30] VITALS: BP 112/62
--- NOTE | 2019-03-02 16:33 | NUR ---
Patient seen today by dentist Dr. Zepeda, for her annual teeth cleaning. See dental notes for details.
[2019-03-02 20:22] VITALS: BP 97/57
[2019-03-02] MEDS: FOLIC ACID 1 MG TABLET GT SCH (20:30)
[2019-03-02] MEDS: CHOLECALCIFEROL 1,000 UNIT TABLET GT SCH (20:31)
[2019-03-02] MEDS: THIAMINE HCL 100 MG TABLET GT SCH (20:31)
[2019-03-03] MEDS: IPRATROPIUM BROMIDE 0.5 MG/2.5 ML NEBU NEB SCH ×6 (02:35→22:34)
[2019-03-03] MEDS: ALBUTEROL SULFATE 2.5 MG/3 ML NEBU NEB SCH ×6 (02:35→22:34)
[2019-03-03] MEDS: OMEPRAZOLE 20 MG CAPSULE.DR GT SCH (06:14)
[2019-03-03] MEDS: VITAL AF 1.2 1,000 ML LIQUID GT PRN (06:14)
[2019-03-03] MEDS: BACLOFEN 20 MG TABLET GT SCH ×3 (06:14→22:28)
--- NOTE | 2019-03-03 06:58 | NUR ---
kept npo after midnight for u.s. of abdomen d/t abnormal liver function test scheduled this morning.
[2019-03-03] MEDS: HYDROGEN PEROXIDE 3% 118 ML BOTTLE TP SCH ×2 (07:51→18:46)
[2019-03-03] MEDS: COD LIVER OIL/ZINC OXIDE OINT 113 GM TUBE TP SCH ×2 (08:54→20:43)
[2019-03-03] MEDS: ACIDOPHILUS/BULGARICUS CHEW TAB GT SCH ×2 (08:54→20:41)
[2019-03-03] MEDS: LEVETIRACETAM 500 MG/5 ML LIQUID UDC GT SCH ×2 (08:54→20:42)
[2019-03-03] MEDS: DESMOPRESSIN 0.1 MG TABLET GT SCH (08:54)
[2019-03-03 11:02] VITALS: BP 118/57
--- NOTE | 2019-03-03 11:16 | NUR ---
Patient's annual optometry appointment has been scheduled for 03/04/2019.
--- NOTE | 2019-03-03 15:21 | NUR ---
DR. WORTHINGTON WAS CALLED AND MESSAGE LEFT RE:ABDOMINAL ULTRASOUND RESULT.
--- NOTE | 2019-03-03 16:54 | NUR ---
JOSUÉ met with Dr. Wagner yesterday, and informed him of the outcome of JOSUÉ's attempt to arrange for a neurosurgery consultation at [facility] (see SS note dated 02/25). JOSUÉ suggested that SW could contact patient's insurance to see what neurosurgeons are contracted through her insurance, and see if a consultation could be arranged with one of them, and Dr. Wagner expressed agreement. 03/03/19, 4:15pm: JOSUÉ called [facility] [phone] and spoke with Ulises, who transferred this SW to Provider Services. JOSUÉ spoke with Petra in Provider Services, who provided this SW with a list of contracted neurosurgeons. Petra stated that JOSUÉ would need to contact [facility]'s halfway care department at [phone] in order to request a pre-authorization for the neurosurgery consultation before scheduling an appointment. JOSUÉ expressed understanding. Reference # for this call is [id number]. SW to discuss above with Subacute Director Ruben Cole and Dr. Wagner, and proceed with agreed upon arrangements after discussion with Ruben and Dr. Wagner.
[2019-03-03 20:07] VITALS: BP 140/90
[2019-03-03] MEDS: FOLIC ACID 1 MG TABLET GT SCH (20:41)
[2019-03-03] MEDS: THIAMINE HCL 100 MG TABLET GT SCH (20:42)
[2019-03-03] MEDS: CHOLECALCIFEROL 1,000 UNIT TABLET GT SCH (20:43)
[2019-03-04] MEDS: ALBUTEROL SULFATE 2.5 MG/3 ML NEBU NEB SCH ×6 (02:35→23:09)
[2019-03-04] MEDS: IPRATROPIUM BROMIDE 0.5 MG/2.5 ML NEBU NEB SCH ×6 (02:35→23:09)
[2019-03-04] MEDS: VITAL AF 1.2 1,000 ML LIQUID GT PRN (06:00)
[2019-03-04] MEDS: OMEPRAZOLE 20 MG CAPSULE.DR GT SCH (06:14)
[2019-03-04] MEDS: BACLOFEN 20 MG TABLET GT SCH ×3 (06:14→21:04)
[2019-03-04] MEDS: LEVETIRACETAM 500 MG/5 ML LIQUID UDC GT SCH ×2 (08:30→21:04)
[2019-03-04] MEDS: ACIDOPHILUS/BULGARICUS CHEW TAB GT SCH ×2 (08:30→21:04)
[2019-03-04] MEDS: DESMOPRESSIN 0.1 MG TABLET GT SCH (08:30)
[2019-03-04] MEDS: COD LIVER OIL/ZINC OXIDE OINT 113 GM TUBE TP SCH ×2 (08:30→21:04)
[2019-03-04] MEDS: HYDROGEN PEROXIDE 3% 118 ML BOTTLE TP SCH ×2 (08:54→21:00)
[2019-03-04 13:43] VITALS: BP 107/58
--- NOTE | 2019-03-04 14:25 | NUR ---
Patient seen today by Dr. Booth for her routine eye exam. See optometry notes for details.
[2019-03-04 20:54] VITALS: BP 107/60
[2019-03-04] MEDS: CHOLECALCIFEROL 1,000 UNIT TABLET GT SCH (21:04)
[2019-03-04] MEDS: THIAMINE HCL 100 MG TABLET GT SCH (21:04)
[2019-03-04] MEDS: FOLIC ACID 1 MG TABLET GT SCH (21:04)
[2019-03-05] MEDS: ALBUTEROL SULFATE 2.5 MG/3 ML NEBU NEB SCH ×6 (03:27→23:08)
[2019-03-05] MEDS: IPRATROPIUM BROMIDE 0.5 MG/2.5 ML NEBU NEB SCH ×6 (03:27→23:08)
[2019-03-05] MEDS: BACLOFEN 20 MG TABLET GT SCH ×3 (05:40→22:54)
[2019-03-05] MEDS: OMEPRAZOLE 20 MG CAPSULE.DR GT SCH (05:40)
[2019-03-05] MEDS: VITAL AF 1.2 1,000 ML LIQUID GT PRN (06:39)
[2019-03-05] MEDS: HYDROGEN PEROXIDE 3% 118 ML BOTTLE TP SCH ×2 (09:00→21:08)
[2019-03-05] MEDS: DESMOPRESSIN 0.1 MG TABLET GT SCH (09:23)
[2019-03-05] MEDS: ACIDOPHILUS/BULGARICUS CHEW TAB GT SCH ×2 (09:23→20:51)
[2019-03-05] MEDS: LEVETIRACETAM 500 MG/5 ML LIQUID UDC GT SCH ×2 (09:23→20:51)
[2019-03-05] MEDS: COD LIVER OIL/ZINC OXIDE OINT 113 GM TUBE TP SCH ×2 (09:24→20:53)
[2019-03-05 11:13] VITALS: BP 98/61
[2019-03-05 20:12] VITALS: BP 108/53
[2019-03-05] MEDS: FOLIC ACID 1 MG TABLET GT SCH (20:51)
[2019-03-05] MEDS: THIAMINE HCL 100 MG TABLET GT SCH (20:52)
[2019-03-05] MEDS: CHOLECALCIFEROL 1,000 UNIT TABLET GT SCH (20:53)
[2019-03-06] MEDS: IPRATROPIUM BROMIDE 0.5 MG/2.5 ML NEBU NEB SCH ×6 (03:34→23:10)
[2019-03-06] MEDS: ALBUTEROL SULFATE 2.5 MG/3 ML NEBU NEB SCH ×6 (03:34→23:10)
[2019-03-06] MEDS: VITAL AF 1.2 1,000 ML LIQUID GT PRN (04:38)
[2019-03-06] MEDS: BACLOFEN 20 MG TABLET GT SCH ×3 (05:35→22:33)
[2019-03-06] MEDS: OMEPRAZOLE 20 MG CAPSULE.DR GT SCH (05:35)
[2019-03-06] MEDS: HYDROGEN PEROXIDE 3% 118 ML BOTTLE TP SCH ×2 (07:58→21:48)
[2019-03-06] MEDS: ACIDOPHILUS/BULGARICUS CHEW TAB GT SCH ×2 (09:12→20:20)
[2019-03-06] MEDS: DESMOPRESSIN 0.1 MG TABLET GT SCH (09:12)
[2019-03-06] MEDS: LEVETIRACETAM 500 MG/5 ML LIQUID UDC GT SCH ×2 (09:13→20:21)
[2019-03-06] MEDS: COD LIVER OIL/ZINC OXIDE OINT 113 GM TUBE TP SCH ×2 (09:13→20:22)
[2019-03-06 11:17] VITALS: BP 94/48
[2019-03-06] MEDS: CLOTRIMAZOLE 1% CREAM 30 GM TUBE TP SCH ×2 (12:05→20:22)
[2019-03-06 20:06] VITALS: BP 106/67
[2019-03-06] MEDS: FOLIC ACID 1 MG TABLET GT SCH (20:20)
[2019-03-06] MEDS: THIAMINE HCL 100 MG TABLET GT SCH (20:22)
[2019-03-06] MEDS: CHOLECALCIFEROL 1,000 UNIT TABLET GT SCH (20:22)
[2019-03-07] MEDS: IPRATROPIUM BROMIDE 0.5 MG/2.5 ML NEBU NEB SCH ×6 (02:51→23:08)
[2019-03-07] MEDS: ALBUTEROL SULFATE 2.5 MG/3 ML NEBU NEB SCH ×6 (02:51→23:08)
[2019-03-07] MEDS: OMEPRAZOLE 20 MG CAPSULE.DR GT SCH (05:53)
[2019-03-07] MEDS: BACLOFEN 20 MG TABLET GT SCH ×3 (05:53→21:16)
[2019-03-07] MEDS: ACIDOPHILUS/BULGARICUS CHEW TAB GT SCH ×2 (08:02→20:54)
[2019-03-07] MEDS: DESMOPRESSIN 0.1 MG TABLET GT SCH (08:02)
[2019-03-07] MEDS: LEVETIRACETAM 500 MG/5 ML LIQUID UDC GT SCH ×2 (08:03→20:54)
[2019-03-07] MEDS: COD LIVER OIL/ZINC OXIDE OINT 113 GM TUBE TP SCH ×2 (08:07→20:55)
[2019-03-07] MEDS: CLOTRIMAZOLE 1% CREAM 30 GM TUBE TP SCH ×2 (08:07→20:55)
[2019-03-07] MEDS: HYDROGEN PEROXIDE 3% 118 ML BOTTLE TP SCH ×2 (08:37→20:57)
[2019-03-07 09:19] VITALS: BP 95/55
--- NOTE | 2019-03-07 16:59 | NUR ---
SEEN BY EMMY Agustin AND DR. GARCIA AND WITH NEW ORDERS FOR CBC AND BMP IN AM AND ORDERS CARRIED OUT.
--- NOTE | 2019-03-07 19:20 | NUR ---
Received pt on HT-50 ventilator with the following settings of SIMV-12, Vt-500, PEEP+5, PS-10, FIO2-28%, trached with Shiley#6 DCT trach, which is in the place and secure. No distress noted. Airway care done, pt responded to physical stimuli. In-line HHN tx with 2.5mg Albuterol+0.5mg Atrovent given, no adverse reaction noted. HME changed. Resus. bag and back up trach at bedside. Vent and alarms checked and reset.
[2019-03-07 20:18] VITALS: BP 111/63
[2019-03-07] MEDS: CHOLECALCIFEROL 1,000 UNIT TABLET GT SCH (20:54)
[2019-03-07] MEDS: FOLIC ACID 1 MG TABLET GT SCH (20:54)
[2019-03-07] MEDS: THIAMINE HCL 100 MG TABLET GT SCH (20:54)
[2019-03-08] MEDS: IPRATROPIUM BROMIDE 0.5 MG/2.5 ML NEBU NEB SCH ×6 (03:10→22:58)
[2019-03-08] MEDS: ALBUTEROL SULFATE 2.5 MG/3 ML NEBU NEB SCH ×6 (03:10→22:58)
[2019-03-08] MEDS: OMEPRAZOLE 20 MG CAPSULE.DR GT SCH (06:29)
[2019-03-08] MEDS: BACLOFEN 20 MG TABLET GT SCH ×3 (06:29→21:50)
[2019-03-08 06:54] LABS: CARBON DIOXIDE 25 mmol/L (21-32); CHLORIDE 104 mmol/L (98-107); CREATININE 0.3 mg/dL (0.6-1.3); GLUCOSE 86 mg/dL (74-106); POTASSIUM 3.7 mmol/L (3.5-5.1); UREA NITROGEN, BLOOD 17 mg/dL (7-18)
[2019-03-08 07:14] LABS: BASOPHILS % (AUTO) 0.8 % (0.0-2.0); EOSINOPHILS # (AUTO) 0.3 K/uL (0.0-0.7); HEMOGLOBIN 9.1 g/dL (10.9-14.3); LYMPHOCYTES # (AUTO) 1.5 K/uL (20.0-40.0); MONOCYTES # (AUTO) 0.3 K/uL (2.0-10.0)
[2019-03-08] MEDS: VITAL AF 1.2 1,000 ML LIQUID GT PRN (07:15)
[2019-03-08 07:26] LABS: EOSINOPHILS % (AUTO) 5.6 % (0.0-7.0); HEMATOCRIT 26.1 % (31.2-41.9); MEAN CORPUSCULAR HGB CONC 35 g/dL (32.3-35.6); MEAN CORPUSCULAR VOLUME 92.2 fL (75.5-95.3); MONOCYTES % (AUTO) 6.5 % (0.0-11.0); NEUTROPHILS # (AUTO) 2.7 K/uL (1.8-8.9); NEUTROPHILS % (AUTO) 56.1 % (38.5-71.5); RED BLOOD CELL COUNT(AUTO) 2.84 MIL/uL (3.63-4.92); WHITE BLOOD COUNT (AUTO) 4.8 K/uL (3.8-11.8)
[2019-03-08 07:27] LABS: PLATELET COUNT (AUTO) 165 K/uL (179-408)
[2019-03-08] MEDS: HYDROGEN PEROXIDE 3% 118 ML BOTTLE TP SCH ×2 (09:00→21:00)
[2019-03-08] MEDS: DESMOPRESSIN 0.1 MG TABLET GT SCH (09:02)
[2019-03-08] MEDS: CLOTRIMAZOLE 1% CREAM 30 GM TUBE TP SCH ×2 (09:03→20:43)
[2019-03-08] MEDS: LEVETIRACETAM 500 MG/5 ML LIQUID UDC GT SCH ×2 (09:03→20:42)
[2019-03-08] MEDS: ACIDOPHILUS/BULGARICUS CHEW TAB GT SCH ×2 (09:03→20:42)
[2019-03-08] MEDS: COD LIVER OIL/ZINC OXIDE OINT 113 GM TUBE TP SCH ×2 (09:03→20:43)
[2019-03-08 11:34] VITALS: BP 122/66
--- NOTE | 2019-03-08 14:54 | NUR ---
INTERDISCIPLINARY PLAN OF CARE CONFERENCE was held today. Patient's mother lives in [place] was not available to be on speaker phone today during the meeting. Dr. Wagner and the Interdisciplinary Team reviewed the current plan of care in detail. RN reported on patient's medical condition and findings of recent labs. No major changes in condition were reported. See RN IDT conference notes. See also all other disciplines IDT notes and physician's progress notes for additional details.
--- NOTE | 2019-03-08 15:05 | NUR ---
Pharmacy Update from Today's 03/08/19 IDT Meeting Note: Patient was transferred from subacute floor to CCU 11/25-12/14 d/t recurrent fevers and subsequently found with asp PNA with empyema resulting in chest tube placement and drainage. Pt also found with c. diff. Pt was stabilized, treated, and transferred back on abx cefepime IV, vanco po, flagyl for x4 more weeks per ID, now completed. VS: Temp 97 BP 111/63 HR 54 LABS: (from 03/08/19) Wbc 4.8H/H 9.1/26.1Plt 165 Na 137K 3.7Cl 104CO2 25BUN/Scr 17/0.3 BS 86Ca 8.6 MEDICATION USE REVIEWED: > Pt not on any anti-psych medications > Pt continues Keppra 250mg q12h since 11/09/18; CrCl >100ml/min, renal function ok for current dose. No seizure episodes noted. > Pt on DDAVP 0.05mg GT daily since 12/30/18 for diabetes insipidus PRN MED USAGE: (January) Tylenol for pain/temp used x0 Artificial Tears used x0 Bisacodyl Supp used x2 NEW ORDERS NOTED: > NA Patient was reviewed and discussed in depth with no medication issues or concerns at this time noted. Remains stable on current regimen, no further recs at this time. Will continue to follow
--- NOTE | 2019-03-08 19:20 | NUR ---
Received pt on HT-50 ventilator with the following settings of SIMV-12, Vt-500, PEEP+5, PS-10, FIO2-28%, trached with Shiley#6 DCT trach, which is in the place and secure. No SOB noted. Airway care done, pt responded to physical stimuli. In-line HHN tx with 2.5mg Albuterol+0.5mg Atrovent given, no adverse reaction noted. HME changed. Resus. bag and back up trach at bedside. Vent and alarms checked and reset.
[2019-03-08 20:21] VITALS: BP 104/62
[2019-03-08] MEDS: FOLIC ACID 1 MG TABLET GT SCH (20:42)
[2019-03-08] MEDS: CHOLECALCIFEROL 1,000 UNIT TABLET GT SCH (20:43)
[2019-03-08] MEDS: THIAMINE HCL 100 MG TABLET GT SCH (20:43)
[2019-03-09] MEDS: IPRATROPIUM BROMIDE 0.5 MG/2.5 ML NEBU NEB SCH ×6 (02:40→23:08)
[2019-03-09] MEDS: ALBUTEROL SULFATE 2.5 MG/3 ML NEBU NEB SCH ×6 (02:40→23:08)
[2019-03-09] MEDS: VITAL AF 1.2 1,000 ML LIQUID GT PRN (05:00)
[2019-03-09] MEDS: BACLOFEN 20 MG TABLET GT SCH ×3 (06:21→21:59)
[2019-03-09] MEDS: OMEPRAZOLE 20 MG CAPSULE.DR GT SCH (06:21)
[2019-03-09] MEDS: CLOTRIMAZOLE 1% CREAM 30 GM TUBE TP SCH ×2 (08:51→20:51)
[2019-03-09] MEDS: COD LIVER OIL/ZINC OXIDE OINT 113 GM TUBE TP SCH ×2 (08:51→20:51)
[2019-03-09] MEDS: LEVETIRACETAM 500 MG/5 ML LIQUID UDC GT SCH ×2 (08:51→20:50)
[2019-03-09] MEDS: DESMOPRESSIN 0.1 MG TABLET GT SCH (08:51)
[2019-03-09] MEDS: ACIDOPHILUS/BULGARICUS CHEW TAB GT SCH ×2 (08:51→20:50)
[2019-03-09] MEDS: HYDROGEN PEROXIDE 3% 118 ML BOTTLE TP SCH ×2 (09:00→21:23)
--- NOTE | 2019-03-09 09:15 | NUR ---
Seen and Examined by Dr Wagner with no new orders noted.
[2019-03-09 10:55] VITALS: BP 83/44
[2019-03-09 11:02] VITALS: BP 119/83
[2019-03-09 20:00] VITALS: BP 94/62
[2019-03-09] MEDS: FOLIC ACID 1 MG TABLET GT SCH (20:50)
[2019-03-09] MEDS: THIAMINE HCL 100 MG TABLET GT SCH (20:51)
[2019-03-09] MEDS: CHOLECALCIFEROL 1,000 UNIT TABLET GT SCH (20:51)
[2019-03-10] MEDS: VITAL AF 1.2 1,000 ML LIQUID GT PRN (02:40)
[2019-03-10] MEDS: ALBUTEROL SULFATE 2.5 MG/3 ML NEBU NEB SCH ×6 (02:58→23:14)
[2019-03-10] MEDS: IPRATROPIUM BROMIDE 0.5 MG/2.5 ML NEBU NEB SCH ×6 (02:58→23:14)
[2019-03-10] MEDS: OMEPRAZOLE 20 MG CAPSULE.DR GT SCH (06:06)
[2019-03-10] MEDS: BACLOFEN 20 MG TABLET GT SCH ×3 (06:06→22:26)
--- NOTE | 2019-03-10 08:00 | NUR ---
PT REMAIN ON CONTINUOUS VENT SIMV 12 VT 500 PEEP 5 PS 10 FIO2 28%. TRACH IN PLACED AND SECURED WITH TRACH TIE. BACK UP TRACH AND AMBU BAG AT BEDSIDE. TRACH CARE DONE WITHOUT COMPLICATIONS NOTED. IN LINE TX GIVEN WITH UD ALBUTEROL + UD ATROVENT ORDERED. SUCTION LAVAGE PRN. VENT CHECKED, ALARMS WORKING WELL AND AUDIBLE. NO SIGNS OF RESPIRATORY DISTRESS NOTED AT THIS TIME. WILL CONTINUE TO MONITOR.
[2019-03-10] MEDS: CLOTRIMAZOLE 1% CREAM 30 GM TUBE TP SCH ×2 (08:35→20:27)
[2019-03-10] MEDS: COD LIVER OIL/ZINC OXIDE OINT 113 GM TUBE TP SCH ×2 (08:35→20:27)
[2019-03-10] MEDS: LEVETIRACETAM 500 MG/5 ML LIQUID UDC GT SCH ×2 (08:35→20:26)
[2019-03-10] MEDS: DESMOPRESSIN 0.1 MG TABLET GT SCH (08:35)
[2019-03-10] MEDS: ACIDOPHILUS/BULGARICUS CHEW TAB GT SCH ×2 (08:35→20:25)
[2019-03-10] MEDS: HYDROGEN PEROXIDE 3% 118 ML BOTTLE TP SCH ×2 (09:01→20:49)
[2019-03-10 11:53] VITALS: BP 90/52
--- NOTE | 2019-03-10 19:50 | NUR ---
Pt received in semi saldana position, obtunded, unable to communicate, and on continuous mechanical ventilation via Shiley 6 DCT trach. Pt is on [place] HT-50 ventilator with ordered settings of SIMV-12, VT-500, PEEP+5, PS-10, FIO2-28% Tolerating vent settings well. SpO2-98%. Trach is patent and secured. Minimal occluding volume technique used to assess cuff inflation. In-line nebulizer treatments given as ordered, Q4 with Albuterol/Atrovent. Treatments tolerated well, with no adverse reactions noted. Sxn'd and lavaged as needed. Suctioned very small amounts of thin blood colored secretions. RN Ru & FILM LIBRARIAN Kacie notified. HME changed & trach care done. PPE used. No signs or symptoms of respiratory distress. Ventilator alarm parameters checked, on and audible. Vent plugged into red emergency outlet. Bag/valve/mask and backup trach at bedside. Will continue to monitor.
[2019-03-10 20:12] VITALS: BP 133/76
[2019-03-10] MEDS: FOLIC ACID 1 MG TABLET GT SCH (20:26)
[2019-03-10] MEDS: THIAMINE HCL 100 MG TABLET GT SCH (20:27)
[2019-03-10] MEDS: CHOLECALCIFEROL 1,000 UNIT TABLET GT SCH (20:27)
[2019-03-11] MEDS: VITAL AF 1.2 1,000 ML LIQUID GT PRN (01:30)
[2019-03-11] MEDS: IPRATROPIUM BROMIDE 0.5 MG/2.5 ML NEBU NEB SCH ×6 (03:28→22:53)
[2019-03-11] MEDS: ALBUTEROL SULFATE 2.5 MG/3 ML NEBU NEB SCH ×6 (03:28→22:53)
[2019-03-11] MEDS: OMEPRAZOLE 20 MG CAPSULE.DR GT SCH (06:08)
[2019-03-11] MEDS: BACLOFEN 20 MG TABLET GT SCH ×3 (06:08→22:17)
[2019-03-11] MEDS: COD LIVER OIL/ZINC OXIDE OINT 113 GM TUBE TP SCH ×2 (08:49→20:59)
[2019-03-11] MEDS: ACIDOPHILUS/BULGARICUS CHEW TAB GT SCH ×2 (08:49→20:58)
[2019-03-11] MEDS: DESMOPRESSIN 0.1 MG TABLET GT SCH (08:49)
[2019-03-11] MEDS: LEVETIRACETAM 500 MG/5 ML LIQUID UDC GT SCH ×2 (08:49→20:59)
[2019-03-11] MEDS: CLOTRIMAZOLE 1% CREAM 30 GM TUBE TP SCH ×2 (08:50→20:59)
[2019-03-11] MEDS: HYDROGEN PEROXIDE 3% 118 ML BOTTLE TP SCH ×2 (09:00→21:04)
[2019-03-11 11:06] VITALS: BP 90/52
--- NOTE | 2019-03-11 16:04 | NUR ---
Per Subacute Director Ruben Cole, Dr. Wagner and/or Dr. Dillard will be requesting neurosurgery consultation from neurosurgeon Dr. Farida Iqbal, who has recently established privileges with [facility]. SW will hold making arrangements for an outside neurosurgery consultation.
[2019-03-11] MEDS: FOLIC ACID 1 MG TABLET GT SCH (20:59)
[2019-03-11] MEDS: CHOLECALCIFEROL 1,000 UNIT TABLET GT SCH (20:59)
[2019-03-11] MEDS: THIAMINE HCL 100 MG TABLET GT SCH (20:59)
[2019-03-11 22:39] VITALS: BP 98/58
[2019-03-12] MEDS: ALBUTEROL SULFATE 2.5 MG/3 ML NEBU NEB SCH ×6 (03:46→22:35)
[2019-03-12] MEDS: IPRATROPIUM BROMIDE 0.5 MG/2.5 ML NEBU NEB SCH ×6 (03:46→22:35)
[2019-03-12] MEDS: BACLOFEN 20 MG TABLET GT SCH ×3 (05:29→21:22)
[2019-03-12] MEDS: OMEPRAZOLE 20 MG CAPSULE.DR GT SCH (05:29)
[2019-03-12] MEDS: VITAL AF 1.2 1,000 ML LIQUID GT PRN (07:33)
[2019-03-12 08:00] VITALS: BP 93/37
[2019-03-12] MEDS: DESMOPRESSIN 0.1 MG TABLET GT SCH (08:17)
[2019-03-12] MEDS: ACIDOPHILUS/BULGARICUS CHEW TAB GT SCH ×2 (08:17→21:22)
[2019-03-12] MEDS: COD LIVER OIL/ZINC OXIDE OINT 113 GM TUBE TP SCH ×2 (08:18→21:23)
[2019-03-12] MEDS: LEVETIRACETAM 500 MG/5 ML LIQUID UDC GT SCH ×2 (08:18→21:23)
[2019-03-12] MEDS: CLOTRIMAZOLE 1% CREAM 30 GM TUBE TP SCH ×2 (08:19→21:23)
[2019-03-12 08:30] VITALS: BP 95/50
[2019-03-12] MEDS: HYDROGEN PEROXIDE 3% 118 ML BOTTLE TP SCH ×2 (11:09→18:56)
[2019-03-12] MEDS: FOLIC ACID 1 MG TABLET GT SCH (21:22)
[2019-03-12] MEDS: THIAMINE HCL 100 MG TABLET GT SCH (21:23)
[2019-03-12] MEDS: CHOLECALCIFEROL 1,000 UNIT TABLET GT SCH (21:24)
[2019-03-12 22:28] VITALS: BP 96/57
[2019-03-13] MEDS: IPRATROPIUM BROMIDE 0.5 MG/2.5 ML NEBU NEB SCH ×6 (02:35→23:10)
[2019-03-13] MEDS: ALBUTEROL SULFATE 2.5 MG/3 ML NEBU NEB SCH ×6 (02:35→23:10)
[2019-03-13] MEDS: VITAL AF 1.2 1,000 ML LIQUID GT PRN ×2 (02:45→22:33)
[2019-03-13] MEDS: OMEPRAZOLE 20 MG CAPSULE.DR GT SCH (05:43)
[2019-03-13] MEDS: BACLOFEN 20 MG TABLET GT SCH ×3 (05:43→21:02)
[2019-03-13] MEDS: ACIDOPHILUS/BULGARICUS CHEW TAB GT SCH ×2 (08:31→20:32)
[2019-03-13] MEDS: DESMOPRESSIN 0.1 MG TABLET GT SCH (08:31)
[2019-03-13] MEDS: COD LIVER OIL/ZINC OXIDE OINT 113 GM TUBE TP SCH ×2 (08:32→20:32)
[2019-03-13] MEDS: LEVETIRACETAM 500 MG/5 ML LIQUID UDC GT SCH ×2 (08:32→20:32)
[2019-03-13] MEDS: HYDROGEN PEROXIDE 3% 118 ML BOTTLE TP SCH ×2 (09:00→21:21)
[2019-03-13 10:00] VITALS: BP 113/60
--- NOTE | 2019-03-13 19:21 | NUR ---
Pt received on HT-50 ventilator with the following settings of SIMV-12, Vt-500, PEEP+5, PS-10, FIO2-28%, trached with Shiley#6 DCT trach, which is in the place and secure. No respiratory distress noted. Airway care done, pt responded to physical stimuli. Noticed bloody secretion. Nurse Jerry notified. In-line HHN tx with 2.5mg Albuterol+0.5mg Atrovent given, no adverse reaction noted. HME changed. Resus. bag and back up trach at bedside. Vent and alarms checked and reset.
[2019-03-13] MEDS: CHOLECALCIFEROL 1,000 UNIT TABLET GT SCH (20:32)
[2019-03-13] MEDS: THIAMINE HCL 100 MG TABLET GT SCH (20:32)
[2019-03-13] MEDS: FOLIC ACID 1 MG TABLET GT SCH (20:32)
[2019-03-13 21:13] VITALS: BP 95/47
[2019-03-14] MEDS: IPRATROPIUM BROMIDE 0.5 MG/2.5 ML NEBU NEB SCH ×6 (03:08→23:08)
[2019-03-14] MEDS: ALBUTEROL SULFATE 2.5 MG/3 ML NEBU NEB SCH ×6 (03:08→23:08)
[2019-03-14] MEDS: OMEPRAZOLE 20 MG CAPSULE.DR GT SCH (05:37)
[2019-03-14] MEDS: BACLOFEN 20 MG TABLET GT SCH ×3 (05:37→21:10)
[2019-03-14] MEDS: ACIDOPHILUS/BULGARICUS CHEW TAB GT SCH ×2 (08:10→20:23)
[2019-03-14] MEDS: LEVETIRACETAM 500 MG/5 ML LIQUID UDC GT SCH ×2 (08:10→20:25)
[2019-03-14] MEDS: DESMOPRESSIN 0.1 MG TABLET GT SCH (08:10)
[2019-03-14] MEDS: COD LIVER OIL/ZINC OXIDE OINT 113 GM TUBE TP SCH ×2 (08:11→20:25)
[2019-03-14] MEDS: HYDROGEN PEROXIDE 3% 118 ML BOTTLE TP SCH ×2 (09:43→21:38)
[2019-03-14 14:39] VITALS: BP 118/57
--- NOTE | 2019-03-14 19:20 | NUR ---
Pt received on HT-50 ventilator with the following settings of SIMV-12, Vt-500, PEEP+5, PS-10, FIO2-28%, trached with Shiley#6 DCT trach, which is in the place and secure. No SOB noted. Airway care done, pt responded to physical stimuli. Pt has a gauze between her lips to prevent biting. In-line HHN tx with 2.5mg Albuterol+0.5mg Atrovent given, pt tolerated well. HME changed. Resus. bag and back up trach at bedside. Vent and alarms checked and reset.
[2019-03-14 20:00] VITALS: BP 118/66
[2019-03-14] MEDS: CHOLECALCIFEROL 1,000 UNIT TABLET GT SCH (20:25)
[2019-03-14] MEDS: THIAMINE HCL 100 MG TABLET GT SCH (20:25)
[2019-03-14] MEDS: FOLIC ACID 1 MG TABLET GT SCH (20:25)
[2019-03-14] MEDS: VITAL AF 1.2 1,000 ML LIQUID GT PRN (21:29)
[2019-03-15] MEDS: IPRATROPIUM BROMIDE 0.5 MG/2.5 ML NEBU NEB SCH ×6 (03:08→23:10)
[2019-03-15] MEDS: ALBUTEROL SULFATE 2.5 MG/3 ML NEBU NEB SCH ×6 (03:08→23:10)
[2019-03-15] MEDS: BACLOFEN 20 MG TABLET GT SCH ×3 (05:15→21:10)
[2019-03-15] MEDS: OMEPRAZOLE 20 MG CAPSULE.DR GT SCH (05:15)
[2019-03-15] MEDS: COD LIVER OIL/ZINC OXIDE OINT 113 GM TUBE TP SCH ×2 (07:33→20:07)
[2019-03-15] MEDS: HYDROGEN PEROXIDE 3% 118 ML BOTTLE TP SCH ×2 (07:37→21:39)
[2019-03-15] MEDS: ACIDOPHILUS/BULGARICUS CHEW TAB GT SCH ×2 (07:39→20:06)
[2019-03-15] MEDS: DESMOPRESSIN 0.1 MG TABLET GT SCH (07:40)
[2019-03-15] MEDS: BISACODYL 10 MG SUPP.RECT RC PRN (07:42)
[2019-03-15] MEDS: LEVETIRACETAM 500 MG/5 ML LIQUID UDC GT SCH ×2 (07:42→20:06)
--- NOTE | 2019-03-15 08:04 | NUR ---
PATIENT RECEIVED ON VENT WITH SETTINGS OF SIMV12, VT500, +5, 28% FIO2. VENT ALARMS ARE ON AND AUDIBLE. VENT IS PLUGGED INTO RED EMERGENCY OUTLET. NO SHORTNESS OF BREATH NOTED. SX'D MOD/SM THICK PALE YELLOW SECRETIONS. TRACH TUBE IS MIDLINE, PATENT AND SECURED WITH A FOAM TRACH TIE. TRACH CARE DONE, NO COMPLICATIONS. HME CHANGED. AMBUBAG/ BACK UP TRACH AT BEDSIDE. PATIENT IS STABLE AT THIS TIME, WILL CONTINUE TO MONITOR AND REPORT ANY CHANGES.
--- NOTE | 2019-03-15 12:11 | NUR ---
Seen and examined by Dr Iqbal,neurosurgeon,no new orders at this time.
--- NOTE | 2019-03-15 14:00 | NUR ---
Dr Iqbal ordered a CT head without contrast,orders carried out ,pt was transfered to cat scan ,came back in stable condition.
--- NOTE | 2019-03-15 15:32 | NUR ---
Per request from family guest relations representative Mahamed, a condition letter was provided, signed by Dr. Dillard. Mahamed authorized Stefanie to pick it up, and JOSUÉ gave to in a sealed envelope. Copy of the letter filed in patient's file in SW office.
[2019-03-15 17:55] VITALS: BP 115/62
--- NOTE | 2019-03-15 19:02 | NUR ---
DR NAJERA,neurosurgeon call back with new orders noted for NPO post MN ,and labs ,He will contact the pt's mother tomorrow in [place],with Kuldeep ,to explain the plan of care and get the consent for av shunt placement.
[2019-03-15 20:00] VITALS: BP 91/50
[2019-03-15] MEDS: FOLIC ACID 1 MG TABLET GT SCH (20:06)
[2019-03-15] MEDS: CHOLECALCIFEROL 1,000 UNIT TABLET GT SCH (20:06)
[2019-03-15] MEDS: THIAMINE HCL 100 MG TABLET GT SCH (20:06)
--- NOTE | 2019-03-15 21:00 | NUR ---
Patient is afebrile, trach intact and patent, no respiratory distress noted. No seizure episodes noted, on seizure precaution. will hold gt feeding at midnight in preparation for possible AV shunt placement. Kept clean and comfortable, will continue monitor.
[2019-03-16] MEDS: ALBUTEROL SULFATE 2.5 MG/3 ML NEBU NEB SCH ×4 (02:46→15:10)
[2019-03-16] MEDS: IPRATROPIUM BROMIDE 0.5 MG/2.5 ML NEBU NEB SCH ×4 (02:46→15:10)
--- NOTE | 2019-03-16 06:00 | NUR ---
GT feeding was on hold since midnight, no signs of any distress noted. Kept clean and comfortable.
[2019-03-16] MEDS: OMEPRAZOLE 20 MG CAPSULE.DR GT SCH (06:15)
[2019-03-16] MEDS: BACLOFEN 20 MG TABLET GT SCH ×2 (06:15→13:53)
[2019-03-16 06:35] LABS: BASOPHILS % (AUTO) 0.5 % (0.0-2.0); EOSINOPHILS # (AUTO) 0.4 K/uL (0.0-0.7); EOSINOPHILS % (AUTO) 5.8 % (0.0-7.0); HEMOGLOBIN 10.5 g/dL (10.9-14.3); LYMPHOCYTES # (AUTO) 1.9 K/uL (20.0-40.0); LYMPHOCYTES % (AUTO) 24.9 % (20.5-51.5); MEAN CORPUSCULAR HEMOGLOBIN 31.5 uug (24.7-32.8); MEAN CORPUSCULAR HGB CONC 35 g/dL (32.3-35.6); MEAN CORPUSCULAR VOLUME 90.1 fL (75.5-95.3); MONOCYTES # (AUTO) 0.4 K/uL (2.0-10.0); MONOCYTES % (AUTO) 5.5 % (0.0-11.0); NEUTROPHILS # (AUTO) 4.9 K/uL (1.8-8.9); NEUTROPHILS % (AUTO) 63.3 % (38.5-71.5); PLATELET COUNT (AUTO) 218 K/uL (179-408); RED BLOOD CELL COUNT(AUTO) 3.33 MIL/uL (3.63-4.92); WHITE BLOOD COUNT (AUTO) 7.8 K/uL (3.8-11.8)
[2019-03-16 06:47] LABS: CARBON DIOXIDE 27 mmol/L (21-32); CHLORIDE 104 mmol/L (98-107); CREATININE 0.4 mg/dL (0.6-1.3); GLUCOSE 78 mg/dL (74-106); MAGNESIUM 1.6 mg/dL (1.8-2.4); PHOSPHOROUS 3.9 mg/dL (2.5-4.9); POTASSIUM 3.7 mmol/L (3.5-5.1); UREA NITROGEN, BLOOD 17 mg/dL (7-18)
[2019-03-16] MEDS: HYDROGEN PEROXIDE 3% 118 ML BOTTLE TP SCH (08:14)
[2019-03-16] MEDS: ACIDOPHILUS/BULGARICUS CHEW TAB GT SCH (08:41)
[2019-03-16] MEDS: DESMOPRESSIN 0.1 MG TABLET GT SCH (08:41)
[2019-03-16] MEDS: COD LIVER OIL/ZINC OXIDE OINT 113 GM TUBE TP SCH (08:41)
[2019-03-16] MEDS: LEVETIRACETAM 500 MG/5 ML LIQUID UDC GT SCH (08:41)
[2019-03-16 11:47] VITALS: BP 121/61
--- NOTE | 2019-03-16 13:00 | NUR ---
New orders received from Dr. Iqbal, to obtain consent for brain right sided ventriculo shunt placement, npo after midnight, ask Dr. Welch (international marketing specialist for subacute) to call him. Spoke with Luz from Dr. Welch and requested md to call Dr. Iqbal ([phone]). Consent for shunt placement given by Mother via telephone.
--- NOTE | 2019-03-16 14:00 | NUR ---
Seen by Dr. Iqbal, received a call from surgery department, shunt placement procedure cancelled for tomorrow due to procedure authorization not been approved by patient's insurance yet.
--- NOTE | 2019-03-16 15:57 | NUR ---
Dr. Farida zamora md spoke with Dr. Welch, per md Dr. Welch will arrange to transfer to acute setting, per Ruben (SA slot manager) transfer patient to er for evaluation of hydrocephalus per Dr. Welch
[2019-03-16] MEDS ORDERED: MAGNESIUM OXIDE 400 MG TABLET GT ONE (16:00)
--- NOTE | 2019-03-16 17:00 | NUR ---
Patient transferred to ER for evaluation of hydrocephalus, no acute respiratory distress noted, no discomfort noted, report given to Carl Gaytan.
--- NOTE | 2019-03-16 17:05 | NUR ---
Pt transferred to ER on vent: HT-50 with same settings.. No incident during transport
[2019-03-16] MEDS ORDERED: ALBU2.5V7 IH ×2 (19:05)
[2019-03-16] MEDS ORDERED: IPRA0.2S6 NEB (19:05)
[2019-03-16] MEDS ORDERED: OMEP20TA5 GT (19:05)
[2019-03-16] MEDS ORDERED: DEXT15DR6 OP (19:05)
[2019-03-16] MEDS ORDERED: HYDR1SOL MC (19:05)
== END 2019-03-16 17:00 | disposition short-term general hospital (02) | DRG 130 ==
LOC: SA 19:14
PROC: 5A1955Z Respiratory Ventilation, Greater than 96 Consecutive Hours (ICD-10-PCS; principal; 2018-12-14)
DX: J96.21 Acute and chronic respiratory failure with hypoxia (principal); G93.6 Cerebral edema; J86.9 Pyothorax without fistula; J69.0 Pneumonitis due to inhalation of food and vomit; E43 Unspecified severe protein-calorie malnutrition; R40.2124 Coma scale, eyes open, to pain, 24 hours or more after hospital admission; R40.2214 Coma scale, best verbal response, none, 24 hours or more after hospital admission; G82.50 Quadriplegia, unspecified; A04.72 Enterocolitis due to Clostridium difficile, not specified as recurrent; G91.3 Post-traumatic hydrocephalus, unspecified; Z99.11 Dependence on respirator [ventilator] status; E22.2 Syndrome of inappropriate secretion of antidiuretic hormone; E23.2 Diabetes insipidus; D68.59 Other primary thrombophilia; G40.909 Epilepsy, unspecified, not intractable, without status epilepticus; D64.9 Anemia, unspecified; F07.81 Postconcussional syndrome; J98.11 Atelectasis; R13.10 Dysphagia, unspecified; R40.3 Persistent vegetative state; T83.32XD Displacement of intrauterine contraceptive device, subsequent encounter; Y76.2 Prosthetic and other implants, materials and accessory obstetric and gynecological devices associated with adverse incidents; Z87.820 Personal history of traumatic brain injury; Z93.0 Tracheostomy status; Z93.1 Gastrostomy status; R33.9 Retention of urine, unspecified; R74.8 Abnormal levels of other serum enzymes; S06.5X9S Traumatic subdural hemorrhage with loss of consciousness of unspecified duration, sequela; S02.119 Unspecified fracture of occiput; R40.2354 Coma scale, best motor response, localizes pain, 24 hours or more after hospital admission; V49.9XXS Car occupant (driver) (passenger) injured in unspecified traffic accident, sequela; G93.41 Metabolic encephalopathy; E55.9 Vitamin D deficiency, unspecified; G93.89 Other specified disorders of brain; K05.10 Chronic gingivitis, plaque induced
CPT/HCPCS: 36415; 71045; 76700; 83735; 84100; 85025; 85730; 94002; 94003; 94640; 94664; A4663; C1758; J0692; J1644; J3370; J3490; J3590; J7060

== ENCOUNTER 2018-12-27 10:05 | Outpatient (CLI) | payer MEDICAID | END 2018-12-27 23:59 | disposition home or self-care (01) | LOC: CT 10:05 | PROVIDERS: ATTEND Internal Medicine Pulmonary Disease | DX: I63.89 Other cerebral infarction (principal); G91.9 Hydrocephalus, unspecified; G93.40 Encephalopathy, unspecified | CPT/HCPCS: 70450 ==

== ENCOUNTER 2019-03-15 | Outpatient (CLI) | payer MEDICAID | END 2019-03-15 23:59 | CPT/HCPCS: 70450 ==

== ENCOUNTER 2019-03-16 17:11 | Inpatient (IN) | payer MEDICAID ==
[~2019-03-16] VITALS: Ht 172.7 cm; Wt 64.9 kg
--- NOTE | 2019-03-16 17:32 | NUR ---
Pt transported from subacute on current SIMV setting with a shiley 6 DCt trach tube. no sob noted during transported. pt is asleep and not responsive. vent alarm on and audible. vent plugged into red outlet. back up trach and BVM at bedside. will cont to monitor pt.
[2019-03-16 17:47] LABS: BASOPHILS # (AUTO) 0.1 K/uL (0.0-8.0); BASOPHILS % (AUTO) 0.7 % (0.0-2.0); EOSINOPHILS # (AUTO) 0.5 K/uL (0.0-0.7); HEMOGLOBIN 10.5 g/dL (10.9-14.3); LYMPHOCYTES # (AUTO) 1.9 K/uL (20.0-40.0); LYMPHOCYTES % (AUTO) 23.9 % (20.5-51.5); MEAN CORPUSCULAR HEMOGLOBIN 31.3 uug (24.7-32.8); MEAN CORPUSCULAR HGB CONC 34 g/dL (32.3-35.6); MEAN CORPUSCULAR VOLUME 92.1 fL (75.5-95.3); MONOCYTES # (AUTO) 0.5 K/uL (2.0-10.0); MONOCYTES % (AUTO) 6.5 % (0.0-11.0); NEUTROPHILS # (AUTO) 4.9 K/uL (1.8-8.9); NEUTROPHILS % (AUTO) 62.9 % (38.5-71.5); PLATELET COUNT (AUTO) 217 K/uL (179-408); RED BLOOD CELL COUNT(AUTO) 3.36 MIL/uL (3.63-4.92); WHITE BLOOD COUNT (AUTO) 7.8 K/uL (3.8-11.8)
[2019-03-16 17:57] LABS: CARBON DIOXIDE 26 mmol/L (21-32); CHLORIDE 104 mmol/L (98-107); CREATININE 0.4 mg/dL (0.6-1.3); GLUCOSE 91 mg/dL (74-106); UREA NITROGEN, BLOOD 16 mg/dL (7-18)
[2019-03-16 18:03] LABS: ALANINE AMINOTRANSFERASE 133 U/L (14-59); ALKALINE PHOSPHATASE 164 U/L (50-136); ASPARTATE AMINOTRANSFERASE 58 U/L (15-37); BILIRUBIN,DIRECT 0.1 mg/dL (0.0-0.2); BILIRUBIN,TOTAL 0.3 mg/dL (0.2-1.0); TOTAL PROTEIN, SERUM 6.9 g/dL (6.4-8.2)
--- NOTE | 2019-03-16 18:05 | NUR ---
Dr Fleming is at bedside doing the MSE.
--- NOTE | 2019-03-16 19:00 | NUR ---
According to Dr. Fleming, he had already spoken to [facility] for patient admission to [facility] and [facility] accepts.
--- NOTE | 2019-03-16 19:03 | NUR ---
Still for acceptance from [facility] nurse & transfer to [facility], endorsed to HEDY Ann
[2019-03-16] MEDS ORDERED: HYDR1SOL MC (19:05)
[2019-03-16] MEDS ORDERED: IPRA0.2S6 NEB (19:05)
[2019-03-16] MEDS ORDERED: ALBU2.5V7 IH ×2 (19:05)
[2019-03-16] MEDS ORDERED: DEXT15DR6 EACHEYE (19:05)
[2019-03-16] MEDS ORDERED: OMEP20TA5 GT (19:05)
[2019-03-16] MEDS ORDERED: IV NS 1000 ML 1,000 ML IV PRN (19:18)
[2019-03-16] MEDS: ALBUTEROL SULFATE 2.5 MG/3 ML NEBU IH SCH ×2 (19:30→23:21)
[2019-03-16] MEDS ORDERED: ALBUTEROL SULFATE 2.5 MG/3 ML NEBU IH PRN (19:30)
[2019-03-16] MEDS: IPRATROPIUM BROMIDE 0.5 MG/2.5 ML NEBU NEB SCH ×2 (19:30→23:21)
[2019-03-16] MEDS ORDERED: ONDANSETRON 4 MG/2 ML VIAL IV PRN (19:30)
[2019-03-16] MEDS ORDERED: IPRATROPIUM BROMIDE 0.5 MG/2.5 ML NEBU IH PRN (19:30)
[2019-03-16 20:02] VITALS: BP 116/66
--- NOTE | 2019-03-16 20:20 | NUR ---
Report given to HEDY Dailey
--- NOTE | 2019-03-16 20:30 | NUR ---
PATIENT TRANSFERRED FROM ER TO [facility] VIA HOSPITAL BED. ER NURSE AND RT PRESENT. RECEIVED PATIENT WITH NO ACUTE DISTRESS. PATIENT'S DRESSING ON TRACH SITE CLEAN AND DRY. NO SIGNS OF BLEEDING/INFECTION. SHILEY # 6. CONNECTED TO VENT WITH SIMV OF 12, FIO2 28, PEEP 5, PP 10, TIDAL 500. ON TELE MONITORING SHOWING SINUS RUBIN. RT SET UP VENT/TRACH. PATIENT IS ON LOW AIR LOSS MATTRESS. INITIAL PHYSICAL ASSESSMENT DONE AND DOCUMENTED. IV ACCESS SITE ON L HAND, FLUSHED WITH NS, PATENT. NOTED WITH SKIN BREAKDOWN AND DOCUMENTED ON CHART WITH PHOTOS TAKEN. BILATERAL BUTTOCKS AND HEELS OFFLOADED. GTUBE SITE ON RUQ OF ABDOMEN, PATENT. NO RESIDUAL OUTPUT RECEIVED. PATIENT NOTED TO BE ABLE TO BE TURNED ON R SIDE/SUPINE ONLY DUE TO ABSENCE ODF SKULL ON L SIDE. PATIENT IS DUE FOR ONCOLOGY RADIATION PHYSICIAN SHUNT PLACEMENT ON R SIDE OF THE BRAIN TOMORROW MORNING. PRE-OP INTERVENTIONS STARTED WELL. WILL CONTINUE TO MONITOR
--- NOTE | 2019-03-16 20:33 | NUR ---
Patient transferred to [facility] with RT in stable condition.
[2019-03-16] MEDS ORDERED: Medication Not On Formulary EA (Lactobacillus Acidophilus (Probiotic) 1 EACH) GT SCH (21:00)
[2019-03-16] MEDS: BACLOFEN 20 MG TABLET GT SCH (22:27)
[2019-03-16] MEDS: THIAMINE HCL 100 MG TABLET GT SCH (22:27)
[2019-03-16] MEDS: LEVETIRACETAM 500 MG/5 ML LIQUID UDC GT SCH (22:27)
[2019-03-16] MEDS: CHOLECALCIFEROL 1,000 UNIT TABLET GT SCH (22:27)
[2019-03-16] MEDS: ACIDOPHILUS/BULGARICUS CHEW TAB GT SCH (22:28)
[2019-03-16] MEDS: FOLIC ACID 1 MG TABLET GT SCH (22:28)
[2019-03-17] VITALS (34 sets, daily range): BP systolic 79–149; BP diastolic 47–90
--- NOTE | 2019-03-17 | NUR ---
URINE SPECIMEN COLLECTED FOR UA. CXR ORDERED. GT FEEDING HELD ORDERED. NO SIGNS OF ACUTE DISTRESS. NACL 60CC RUNNING ON L HAND, NO NOTED SIGNS OF INFILTRATION. CONTINUED ON TELE/DOUMONITORING.
[2019-03-17 00:49] LABS: *BILIRUBIN,URIN NEGATIVE (NEGATIVE); *BLOOD, URINE NEGATIVE (NEGATIVE); *CLARITY,URINE CLEAR (CLEAR); *COLOR,URINE YELLOW (YELLOW); *KETONES,URINE NEGATIVE (NEGATIVE); *UROBILINOGEN,URINE 0.2 E.U./dl (NORMAL); LEUKOCYTE ESTERASE ,URINE NEGATIVE (NEGATIVE); NITRITE, URINE NEGATIVE (NEGATIVE); PH,URINE 6.5 (5.0-8.0); UGLUCOSE NEGATIVE (NEGATIVE)
--- NOTE | 2019-03-17 02:40 | NUR ---
Dr Iqbal called and ordered hibiclens bath/ CHG bath to the pt this morning before surgery. made sure that there is blood screen ordered.
[2019-03-17 02:51] LABS: *URINE HCG, QUAL NEGATIVE (NEGATIVE)
[2019-03-17] MEDS: IPRATROPIUM BROMIDE 0.5 MG/2.5 ML NEBU NEB SCH ×6 (04:10→22:47)
[2019-03-17] MEDS: ALBUTEROL SULFATE 2.5 MG/3 ML NEBU IH SCH ×6 (04:10→22:47)
--- NOTE | 2019-03-17 05:30 | NUR ---
PATIENT REMAINS ON BASELINE STATUS, NO DISTRESS NOTED. FEEDING IS KEPT HELD. CHLORHEXIDINE BATH GIVEN. SKIN CARE AND COMPLETE LINEN CHANGE PROVIDED. TOLERATED WELL. CXR FOLLOWED UP. PATIENT IS PREPARED FOR SURGERY. ROBBIE KNOTT GAVE REPORT TO OR NURSE, PATIENT FOR GERMAN TUTOR AT 7:00 AM.
[2019-03-17] MEDS ORDERED: Medication Not On Formulary EA (Omeprazole 20 MG) GT SCH (06:00)
[2019-03-17] MEDS: BACLOFEN 20 MG TABLET GT SCH ×3 (06:00→21:03)
[2019-03-17] MEDS: ESOMEPRAZOLE MAGNESIUM 40 MG SUSPDR.PKT GT SCH (06:00)
[2019-03-17 06:30] LABS: BASOPHILS % (AUTO) 0.7 % (0.0-2.0); EOSINOPHILS # (AUTO) 0.4 K/uL (0.0-0.7); EOSINOPHILS % (AUTO) 7.6 % (0.0-7.0); HEMOGLOBIN 10.7 g/dL (10.9-14.3); LYMPHOCYTES # (AUTO) 2.4 K/uL (20.0-40.0); LYMPHOCYTES % (AUTO) 40.9 % (20.5-51.5); MEAN CORPUSCULAR HEMOGLOBIN 31.1 uug (24.7-32.8); MEAN CORPUSCULAR HGB CONC 34 g/dL (32.3-35.6); MEAN CORPUSCULAR VOLUME 90.3 fL (75.5-95.3); MONOCYTES # (AUTO) 0.4 K/uL (2.0-10.0); MONOCYTES % (AUTO) 6.2 % (0.0-11.0); NEUTROPHILS # (AUTO) 2.7 K/uL (1.8-8.9); NEUTROPHILS % (AUTO) 44.6 % (38.5-71.5); PLATELET COUNT (AUTO) 235 K/uL (179-408); RED BLOOD CELL COUNT(AUTO) 3.44 MIL/uL (3.63-4.92); WHITE BLOOD COUNT (AUTO) 5.9 K/uL (3.8-11.8)
[2019-03-17 06:37] LABS: CARBON DIOXIDE 27 mmol/L (21-32); CHLORIDE 105 mmol/L (98-107); CHOLESTEROL 169 mg/dL (<200); CREATININE 0.4 mg/dL (0.6-1.3); GLUCOSE 72 mg/dL (74-106); HDL CHOLESTEROL 56 mg/dL (40-60); MAGNESIUM 1.9 mg/dL (1.8-2.4); PHOSPHOROUS 3.6 mg/dL (2.5-4.9); POTASSIUM 3.7 mmol/L (3.5-5.1); TRIGLYCERIDES 78 MG/DL (30-150); UREA NITROGEN, BLOOD 16 mg/dL (7-18)
[2019-03-17 06:47] LABS: THYROID STIMULATING HORMONE 3.999 mIU/mL (0.358-3.740)
--- NOTE | 2019-03-17 07:08 | NUR ---
PT RECEIVED TRACH TO VENT ON CMV, YUAN #6 TRACH IS PATENT AND SECURE. PT IS ON A HT-50 VENT ON SETTINGS OF SIMV 12, VT 500, PS 10, PEEP +5, FIO2 28%. VENT PARAMETERS AND ALARMS CHECKED, ALARMS ARE AUDIBLE. PT IS TOLERATING VENT WELL, NO SOB NOTED. PT TRANSPORTED TO OR FOR PROCEDURE ON VENT WITHOUT INCIDENT. NO SOB NOTED. WILL CONTINUE TO MONITOR.
[2019-03-17] MEDS ORDERED: POLYMYXIN B SULFATE 500,000 UNITS, BACITRACIN 50,000 UNITS, NORMAL SALINE 20 ML MC ONE ×3 (07:15)
--- NOTE | 2019-03-17 07:20 | NUR ---
Called Tiana with quality lead phone and anesthesiologist obtained phone consent for anesthesia.
--- NOTE | 2019-03-17 07:30 | NUR ---
PATIENT PICKED UP BY SURGERY STAFF, ACCOMPANIED BY RT.
--- NOTE | 2019-03-17 07:35 | NUR ---
Received report from shift supervisor film processing nurse, patient was already taken out of room down to surgery before an assessment could be completed.
[2019-03-17] MEDS ORDERED: HYDROMORPHONE 2 MG/1 ML DISP.SYRIN ONE (07:48)
[2019-03-17] MEDS ORDERED: ROCURONIUM BROMIDE 50 MG/5 ML VIAL ONE ×2 (07:48→08:30)
[2019-03-17] MEDS ORDERED: LIDOCAINE 1%-EPI 1:100,000 20 ML VIAL ONE ×2 (08:07)
[2019-03-17] MEDS ORDERED: VANCOMYCIN 1000 MG VIAL ONE ×2 (08:07→10:34)
[2019-03-17] MEDS ORDERED: PROPOFOL 200 MG/20 ML BOTTLE ONE (08:17)
[2019-03-17] MEDS: DESMOPRESSIN 0.1 MG TABLET GT SCH ×2 (09:00→18:11)
[2019-03-17] MEDS: ACIDOPHILUS/BULGARICUS CHEW TAB GT SCH ×2 (09:00→20:34)
[2019-03-17] MEDS: LEVETIRACETAM 500 MG/5 ML LIQUID UDC GT SCH (09:00)
[2019-03-17] MEDS ORDERED: BACITRACIN ZINC OINT 15 GM TUBE ONE (10:26)
[2019-03-17] MEDS ORDERED: IRR STERIL WATER FOR IRR 1000 ML BOTTLE IR ONE (11:25)
[2019-03-17] MEDS ORDERED: PROPOFOL 1,000 MG/100 ML BOTTLE IV ONE (11:25)
[2019-03-17] MEDS ORDERED: PROPOFOL 200 MG/20 ML BOTTLE IV ONE (11:25)
[2019-03-17] MEDS ORDERED: IV NORMAL SALINE 1000 ML BAG IV ONE ×4 (11:25)
[2019-03-17] MEDS ORDERED: DEXAMETHASONE SOD PHOSPHATE 4 MG INJ IV ONE (11:25)
[2019-03-17] MEDS ORDERED: ONDANSETRON 4 MG/2 ML VIAL IV ONE (11:25)
--- NOTE | 2019-03-17 11:34 | NUR ---
PT TRANSPORTED FROM OR TO CCU-2 ON HT-50 VENT WITHOUT INCIDENT. PT PLACED ON A CARBAJAL VENT ON THE SAME SETTINGS OF SIMV 12, VT 500, PS 10, PEEP +5, AND 28% FIO2. BVM AND BACK-UP TRACH AT BEDSIDE. VENT PLUGGED INTO RED OUTLET. PT IS TOLERATING VENT WELL, NO SOB NOTED. SUCTION PRN. HHN TX NOT GIVEN, RN IS AWARE. WILL CONTINUE TO MONITOR.
--- NOTE | 2019-03-17 11:36 | NUR ---
Patient arrived from Surgery for recovery by Recovery nurse in bed 2 ICU.
--- NOTE | 2019-03-17 12:35 | NUR ---
Received report from recovery nurse, orders verified and vitals recorded. Patient on vent, Air mattress inflated, continuous monitoring set up. Seizure precautions maintained.
--- NOTE | 2019-03-17 13:40 | NUR ---
patient had a seizure which lasted 2.5 minutes, contacted Dr. Iqbal and meaghan order received and stat Head CT ordered.
[2019-03-17] MEDS ORDERED: LORAZEPAM 2 MG/1 ML VIAL IV ONE (13:45)
--- NOTE | 2019-03-17 15:00 | NUR ---
Return from CT.
[2019-03-17 15:07] LABS: CSF GLUCOSE 51 mg/dL (40-70); CSF PROTEIN 29 mg/dL (15-45)
[2019-03-17] MEDS ORDERED: VITAL AF 1.2 1,000 ML LIQUID GT PRN (15:15)
--- NOTE | 2019-03-17 15:15 | NUR ---
Patient had seizure, contacted Dr. Iqbal, ordered negin now. and resume g-tube when tube feeding resumes.
[2019-03-17] MEDS ORDERED: LEVETIRACETAM IV STA (15:18)
[2019-03-17] MEDS ORDERED: DEXTROSE 5% IV STA (15:18)
[2019-03-17] MEDS ORDERED: HYDROGEN PEROXIDE 3% 118 ML BOTTLE TP PRN (15:30)
[2019-03-17] MEDS: IV D5/ 0.9% NACL 1,000 ML IV PRN (15:38)
--- NOTE | 2019-03-17 16:42 | NUR ---
Patient experienced a seizure lasting 2 minutes and 45 seconds.
--- NOTE | 2019-03-17 16:56 | NUR ---
Contacted Dr Spaulding per Request of Dr. Iqbal. Dr. Spaulding placed orders for EEG Stat, orders to start patient on propofol/versed and titrate till seizures stop.
--- NOTE | 2019-03-17 17:00 | NUR ---
A call to Dr. Wagner to update him on pt's current condition and to informed him that Dr. Olivares order to start patient on propofol drip for seizure control. Stat orders for ABG received and implemented.
--- NOTE | 2019-03-17 17:09 | NUR ---
PATIENT EXPERIENCED SEIZURE FOR 3 MINUTES. THERE ARE PENDING ORDERS FOR PROPOFOL AND KEPPRA.
[2019-03-17 17:14] LABS: ABG BASE EXCESS -2.6 mmol/L; ABG PCO2 27.9 mmHg (35.0-45.0); ABG PH 7.474 (7.350-7.450); ABG PO2 130.9 mmHg (75.0-100.0); ABG SITE RIGHT RADIAL; ABG TOTAL HEMOGLOBIN 10.6 G/dL (12.0-16.0); COHb 0.4 % (0.5-1.5); MetHb 0.4 % (0.0-1.5); VENT MODE VENT - SIMV; VT, ABG 500 mL
--- NOTE | 2019-03-17 17:20 | NUR ---
PATIENT EXPERIENCED 3 MINUTE SEIZURE
--- NOTE | 2019-03-17 17:22 | NUR ---
A call to Dr. Wagner and he was informed of ABG results. Orders to continue with current vent setting and continue with care as planned and as ordered by Dr. Iqbal.
--- NOTE | 2019-03-17 17:24 | NUR ---
As per RT department EEG Stat called and message left by their department awaiting call back. circus supervisor informed.
[2019-03-17] MEDS ORDERED: LORAZEPAM 2 MG/1 ML VIAL IV STA (17:29)
--- NOTE | 2019-03-17 17:29 | NUR ---
PATIENT EXPERIENCED SEIZURE LASTING 3 MINUTES ATIVAN ORDERED IV 2MG
[2019-03-17] MEDS: PROPOFOL 100 ML IV PRN (17:36)
[2019-03-17] MEDS ORDERED: LEVETIRACETAM IV 500 MG in IV DEXTROSE 5% 100 ML IV STA (17:41)
[2019-03-17] MEDS ORDERED: PHENYTOIN SODIUM IV 1,000 MG in IV NORMAL SALINE 100 ML IV ONE (17:45)
--- NOTE | 2019-03-17 17:46 | NUR ---
[facility] TECHNOLOGIST AT BEDSIDE STARTED PROPOFOL AT 40MCG/KG/MIN
--- NOTE | 2019-03-17 17:55 | NUR ---
SAMSON KING NOTIFIED OF SEIZURES, AND PLAN WITH NEURO AND PULMONARY NOTIFIED. BLOOD PRESSURE STARTING TO DROP, 85/51 REQUESTING CARDIO CONSULT.
--- NOTE | 2019-03-17 17:58 | NUR ---
A call back from Wes Rojo and orders for 1 liter bolus normal saline received and implemented and if SBP remains below 90 with a map of below 65 orders to start pt. on levophed received. Also orders to change ML to PICC line and set to monitor cvp.
[2019-03-17] MEDS ORDERED: IV NS 1000 ML 1,000 ML IV ONE (18:15)
--- NOTE | 2019-03-17 18:20 | NUR ---
Patient continues to have seizures, propofol increased to 45mcg/kg/min.
--- NOTE | 2019-03-17 19:08 | NUR ---
bhatt catheter inserted and at a total of 650cc clear murray urine obtained. See I&O. flow sheet.
--- NOTE | 2019-03-17 19:17 | NUR ---
Report given to security shift supervisor nurse, patient on vent SIMV 12, fio28, peep 5. Patient on propofol, d5ns 60cc. Patient on alexandru hugger, and on air mattress. Patient to be started on levophed as BP is trending downward. Patients seizures are diminishing. Clarke draining. All needs met at this time.
--- NOTE | 2019-03-17 19:40 | NUR ---
Received pt in specialty mattress bed, under seizure precautions with alexandru hugger placed. Pt upper and lower extremities rigid, withdraws to painful stimuli. Pt with Shiley #8 with vent settings: SIMV 12, TV 500, PEEP 5, FIO2 28%. Pt O2 sats up to 100%. PIV on left hand running maintenance IVF D5 NS at 60 cc/hr, DIPRIVAN drip running at 40 mcg/min. PIV on right hand running LEVOPHED at 5 mcg/min. Keppra and Dilantin IVPB noted during shift. F/C in place. VSS, afebrile. Temp 97.2 via axillary. Assessment completed. Pt turned and repositioned, heels offloaded. Aspiration precautions and safety measures in place. Continue to monitor.
[2019-03-17] MEDS: NOREPINEPHRINE BITARTRATE 16 MG in IV DEXTROSE 5% 500 ML IV PRN (19:41)
--- NOTE | 2019-03-17 19:56 | NUR ---
EEG in process at this time. Addendum: 03/18/19 at 0102 by LAICIA ARENAS RN SIMONE AKHTAR DURING PROCEDURE.
[2019-03-17] MEDS: LEVETIRACETAM IV 1,000 MG in IV DEXTROSE 5% 100 ML IV SCH (20:03)
--- NOTE | 2019-03-17 20:19 | NUR ---
PT ON CONT CARBAJAL VENT WITH SHILEY # [address] AND SECURED, WITH SAME CURRENT VENT SETTINGS, A/C 12, VT 500ML, 28% , PEEP5, NO VENT CHANGES MADE, AMBU BAG AT BEDSIDE, SUCTIONED WHITISH TINGE SECRETIONS, TRACH CARE DONE, CHECK CUFF, CHANGE HME, ALL VENT ALARMS, SAT 100%. Neel WALLSP Addendum: 03/17/19 at 2020 by BESS PACHECO RT Amended: Links added.
--- NOTE | 2019-03-17 20:28 | NUR ---
Per r&d lab technician, pt had no seizure activity during procedure.
--- NOTE | 2019-03-17 20:30 | NUR ---
Tube feeding held until AM per MD order.
[2019-03-17] MEDS: THIAMINE HCL 100 MG TABLET GT SCH (20:34)
[2019-03-17] MEDS: FOLIC ACID 1 MG TABLET GT SCH (20:34)
[2019-03-17] MEDS: CHOLECALCIFEROL 1,000 UNIT TABLET GT SCH (20:34)
[2019-03-17] MEDS: COD LIVER OIL/ZINC OXIDE OINT 113 GM TUBE TP SCH (20:35)
[2019-03-17] MEDS: HYDROGEN PEROXIDE 3% 118 ML BOTTLE TP SCH (20:36)
[2019-03-17] MEDS: VANCOMYCIN IV 1,000 MG in IV DEXTROSE 5% 250 ML IV SCH (20:54)
[2019-03-17] MEDS: PHENYTOIN SODIUM 100 MG/2 ML VIAL IV SCH (21:04)
--- NOTE | 2019-03-17 21:29 | NUR ---
PICC line RN here for insertion.
--- NOTE | 2019-03-17 22:25 | NUR ---
BELL NECK HAMMERER, DR WORTHINGTON, HERE TO SEE AND EVALUATE PT. SEE ORDER HISTORY.
--- NOTE | 2019-03-17 22:30 | NUR ---
CVP line and monitoring initiated.
[2019-03-18] VITALS (82 sets, daily range): BP systolic 85–140; BP diastolic 47–87
[2019-03-18] MEDS: PROPOFOL 100 ML IV PRN ×3 (01:08→18:20)
[2019-03-18] MEDS: IV D5/ 0.9% NACL 1,000 ML IV PRN (01:08)
[2019-03-18] MEDS: ALBUTEROL SULFATE 2.5 MG/3 ML NEBU IH SCH ×6 (04:16→23:17)
[2019-03-18] MEDS: IPRATROPIUM BROMIDE 0.5 MG/2.5 ML NEBU NEB SCH ×6 (04:16→23:17)
[2019-03-18 04:47] LABS: BASOPHILS % (AUTO) 0.4 % (0.0-2.0); EOSINOPHILS % (AUTO) 0.4 % (0.0-7.0); HEMATOCRIT 27.3 % (31.2-41.9); HEMOGLOBIN 9.5 g/dL (10.9-14.3); LYMPHOCYTES # (AUTO) 2.5 K/uL (20.0-40.0); LYMPHOCYTES % (AUTO) 25.5 % (20.5-51.5); MEAN CORPUSCULAR HGB CONC 35 g/dL (32.3-35.6); MEAN CORPUSCULAR VOLUME 95.1 fL (75.5-95.3); MONOCYTES % (AUTO) 9.9 % (0.0-11.0); NEUTROPHILS # (AUTO) 6.2 K/uL (1.8-8.9); NEUTROPHILS % (AUTO) 63.8 % (38.5-71.5); PLATELET COUNT (AUTO) 313 K/uL (179-408); RED BLOOD CELL COUNT(AUTO) 2.87 MIL/uL (3.63-4.92); WHITE BLOOD COUNT (AUTO) 9.7 K/uL (3.8-11.8)
[2019-03-18 04:58] LABS: CARBON DIOXIDE 22 mmol/L (21-32); CHLORIDE 120 mmol/L (98-107); CREATININE 0.5 mg/dL (0.6-1.3); GLUCOSE 234 mg/dL (74-106); MAGNESIUM 1.7 mg/dL (1.8-2.4); PHENYTOIN (DILANTIN) 9.9 ug/mL (10.0-20.0); PHOSPHOROUS 3.3 mg/dL (2.5-4.9); UREA NITROGEN, BLOOD 9 mg/dL (7-18)
--- NOTE | 2019-03-18 05:11 | NUR ---
AM care provided. Oral care done, no secretions noted during trach suctioning. Trach dressing changed and kept clean. No changes in neuro status. Pt turned and repositioned. Seizure and aspiration precautions maintained at all times. Continuous maintenance IVF running. Safety measures in place. See nursing flowsheet for more data. Will continue to monitor.
[2019-03-18] MEDS: PHENYTOIN SODIUM 100 MG/2 ML VIAL IV SCH (05:31)
[2019-03-18] MEDS: BACLOFEN 20 MG TABLET GT SCH ×3 (05:31→21:47)
[2019-03-18] MEDS: ESOMEPRAZOLE MAGNESIUM 40 MG SUSPDR.PKT GT SCH (05:31)
--- NOTE | 2019-03-18 06:12 | NUR ---
Pt had x2 episodes of focal seizure during the night - 5 seconds each. DIPRIVAN DRIP remains at 30 mcg/min. No acute distress noted. Seizure precautions maintained. Continue to monitor pt.
--- NOTE | 2019-03-18 06:50 | NUR ---
Call made to [facility], CECILLE DAVIS, regarding abnormal labs. Awaiting call back. Will continue to monitor and endorse accordingly.
--- NOTE | 2019-03-18 07:13 | NUR ---
Nursing Note: Received report from HEDY Forrest. Pt had 2 seizure episodes overnight and was hypothermic. Managed with Som huggleon. Shiley 6 connected to SIMV 12 VT 500 peep 5 FiO2 20%. Sinus rhythm on monitor. CVP 5 currently. Contacted [employer] group regarding NA 153, K 3.0. Awaiting call back.
--- NOTE | 2019-03-18 07:30 | NUR ---
Nursing Note: Pt seen by Dr. Anjel Murphy. New order to discontinue D5NS.
--- NOTE | 2019-03-18 07:40 | NUR ---
PT RECEIVED ON CONTINUOUS VENT SIMV12 VT 500 PEEP 5 PS 10 FIO2 28%. TRACH IN PLACED AND SECURED WITH TRACH TIE. BACK UP TRACH AND AMBU BAG AT BEDSIDE. IN LINE TX GIVEN ORDERED. SUCTION LAVAGE PRN. VENT CHECKED, ALARMS WORKING WELL AND AUDIBLE. NO DISTRESS NOTED AT THIS TIME. WILL CONTINUE TO MONITOR.
[2019-03-18] MEDS: LEVETIRACETAM IV 1,000 MG in IV DEXTROSE 5% 100 ML IV SCH (08:06)
[2019-03-18] MEDS ORDERED: POTASSIUM CHLORIDE 20 MEQ POWDER PACKET GT ONE ×2 (08:30→19:30)
[2019-03-18] MEDS: VANCOMYCIN IV 1,000 MG in IV DEXTROSE 5% 250 ML IV SCH (08:54)
[2019-03-18] MEDS: DESMOPRESSIN 0.1 MG TABLET GT SCH ×2 (08:54→17:12)
[2019-03-18] MEDS: MAGNESIUM OXIDE 400 MG TABLET GT SCH ×2 (08:58→17:12)
[2019-03-18] MEDS: ACIDOPHILUS/BULGARICUS CHEW TAB GT SCH ×2 (08:58→20:53)
[2019-03-18] MEDS: HYDROGEN PEROXIDE 3% 118 ML BOTTLE TP SCH ×2 (09:00→21:13)
[2019-03-18] MEDS: COD LIVER OIL/ZINC OXIDE OINT 113 GM TUBE TP SCH ×2 (09:00→20:55)
[2019-03-18 10:03] LABS: ABG BASE EXCESS -4.3 mmol/L; ABG HCO3 19.3 mmol/L; ABG PCO2 31.4 mmHg (35.0-45.0); ABG PH 7.407 (7.350-7.450); ABG PO2 146.3 mmHg (75.0-100.0); ABG SITE RIGHT BRACHIAL; ABG TOTAL HEMOGLOBIN 13.8 G/dL (12.0-16.0); COHb 0.7 % (0.5-1.5); MetHb 0.5 % (0.0-1.5); VENT MODE VENT - SIMV; VT, ABG 500 mL
[2019-03-18] MEDS ORDERED: IV D5W 1000ML 1,000 ML IV ONE (11:45)
--- NOTE | 2019-03-18 11:45 | NUR ---
Nursing Note: Seen by Dr. Meyer. New order for free water flush as well as D5 water noted and carried out.
--- NOTE | 2019-03-18 13:00 | NUR ---
Nursing Note: Pt noted to be having small tremors in lower extremities.
--- NOTE | 2019-03-18 13:15 | NUR ---
Nursing Note: Pt having more frequent seizures after instructions to decrease diprivan. Diprivan increase back to 30. Ativan administered as ordered.
[2019-03-18] MEDS: LORAZEPAM 2 MG/1 ML VIAL IV PRN (13:30)
--- NOTE | 2019-03-18 13:58 | NUR ---
WOUND CARE CONSULT: PT PRESENTS WITH LIP IRRITATION/WOUND, PRESENT ON ADMISSION. DEFER TO MD FOR LIP BITING ISSUE. RECOMMENDATIONS MADE FOR SKIN PROTECTION. DISCUSSED WITH NURSING STAFF. [facility]. WILL SEE PRN. NAVARRO IN AGREEMENT WITH PLAN OF CARE. Addendum: 03/18/19 at 1359 by ALIE DOSS RN Amended: Links added.
[2019-03-18] MEDS ORDERED: PHENYTOIN SODIUM 100 MG/2 ML VIAL IV SCH (14:00)
--- NOTE | 2019-03-18 14:30 | NUR ---
PT TRANSPORTED TO CT SCAN AND BACK TO CCU WITHOUT INCIDENT NOTED. VENT CONNECTED TO RED OUTLET, O2 CONNECTED. VENT CHECKED, ALARMS WORKING WELL.
[2019-03-18] MEDS: PHENYTOIN SODIUM IV 200 MG in IV NORMAL SALINE 50 ML IV SCH ×2 (15:08→21:48)
[2019-03-18] MEDS: NOREPINEPHRINE BITARTRATE 16 MG in IV DEXTROSE 5% 500 ML IV PRN (18:19)
--- NOTE | 2019-03-18 19:30 | NUR ---
Report received. Patient S/P DRUG AND ALCOHOL COUNSELLOR shunt insertion 03/17/2019. With trache to vent settings: SIMV=12, FIO2=28%, EJ=565 ml, PEEP=5 and PS=10; sat 99-100%. On continuous Propofol and Levophed drips. Assessment completed. Addendum: 03/19/19 at 0355 by OTF SILVA RN Amended: Links added.
--- NOTE | 2019-03-18 19:36 | NUR ---
RECEIVED TRACH TO VENT PATIENT; VENTILATOR SETTINGS - SIMV 12 VT 500 PEEP +5 PS 10 FIO2 28%. SHILEY 6 DCT TRACH IS PATENT AND SECURED VIA FOAM TRACH TIES. NO CHANGES MADE AT THIS TIME. BACK UP TRACH AND AMBU BAG AT BEDSIDE. Q4 IN-LINE INHALATION TX GIVEN ORDERED BY MD. SUCTIONED MODERATE AMOUNT OF THICK, PALE;PINK TINGED SECRETIONS. VENTILATOR ALARMS CHECKED, ARE ON AND AUDIBLE. PT SHOWING NO S/S OF RESPIRATORY DISTRESS AT THIS TIME. AMBU BAG AND BACK UP TRACH ARE AT BEDSIDE. WILL CONTINUE TO MONITOR.
[2019-03-18] MEDS: LEVETIRACETAM IV 1,500 MG in IV DEXTROSE 5% 100 ML IV SCH (19:57)
--- NOTE | 2019-03-18 20:00 | NUR ---
Hypothermic; Temp=93.2 rectally. Som Hugger turned on. Patient turned and repositioned. HOB elevated above 30 degrees at all times. Doesn't open eyes to pain; flickering of eyelids noted. Both pupils fixed 4 mm. Extremities rigid; with slight withdrawal to pain. GT feeds at 60 ml/H; no residuals.
--- NOTE | 2019-03-18 20:30 | NUR ---
Dr. Iqbal visited; updated of patient's condition. Sedation vacation started as per MD's request. Diprivan drip turned off.
--- NOTE | 2019-03-18 20:45 | NUR ---
Dr. Spaulding called as per Dr. Iqbal's request. Awaiting call back. Seen by Lia [employer]; aware of hypothermia. Spoke with Dr. Iqbal. Orders noted. Blood cultures done; urine specimen sent to lab for C/S. Patient stated moving R arm to chest and moved L arm during blood draw by tech. Still not opening eyes to name calls.
[2019-03-18] MEDS: FOLIC ACID 1 MG TABLET GT SCH (20:53)
[2019-03-18] MEDS: THIAMINE HCL 100 MG TABLET GT SCH (20:53)
--- NOTE | 2019-03-18 21:00 | NUR ---
Dr. Iqbal aware that Diprivan drip remains off. Withdraws to pain but still not opening eyes to name.
[2019-03-18] MEDS: CHOLECALCIFEROL 1,000 UNIT TABLET GT SCH (21:13)
--- NOTE | 2019-03-18 22:00 | NUR ---
Levophed drip titrated; see IV spread sheet for rates/dosages.
[2019-03-19] VITALS (43 sets, daily range): BP systolic 79–119; BP diastolic 35–76
--- NOTE | 2019-03-19 01:00 | NUR ---
Levophed drip dc'd. BPs monitored closely.
[2019-03-19] MEDS: IPRATROPIUM BROMIDE 0.5 MG/2.5 ML NEBU NEB SCH ×6 (04:23→22:53)
[2019-03-19] MEDS: ALBUTEROL SULFATE 2.5 MG/3 ML NEBU IH SCH ×6 (04:23→22:53)
[2019-03-19 05:15] LABS: BASOPHILS # (AUTO) 0.1 K/uL (0.0-8.0); EOSINOPHILS # (AUTO) 0.2 K/uL (0.0-0.7); EOSINOPHILS % (AUTO) 2.8 % (0.0-7.0); HEMATOCRIT 24.3 % (31.2-41.9); HEMOGLOBIN 8.4 g/dL (10.9-14.3); LYMPHOCYTES # (AUTO) 1.8 K/uL (20.0-40.0); MEAN CORPUSCULAR HEMOGLOBIN 32.9 uug (24.7-32.8); MEAN CORPUSCULAR HGB CONC 35 g/dL (32.3-35.6); MEAN CORPUSCULAR VOLUME 94.8 fL (75.5-95.3); MONOCYTES # (AUTO) 0.4 K/uL (2.0-10.0); MONOCYTES % (AUTO) 6.9 % (0.0-11.0); NEUTROPHILS # (AUTO) 3.9 K/uL (1.8-8.9); NEUTROPHILS % (AUTO) 61.3 % (38.5-71.5); PLATELET COUNT (AUTO) 191 K/uL (179-408); RED BLOOD CELL COUNT(AUTO) 2.56 MIL/uL (3.63-4.92); WHITE BLOOD COUNT (AUTO) 6.4 K/uL (3.8-11.8)
[2019-03-19 05:32] LABS: CARBON DIOXIDE 21 mmol/L (21-32); CHLORIDE 112 mmol/L (98-107); CREATININE 0.4 mg/dL (0.6-1.3); GLUCOSE 60 mg/dL (74-106); MAGNESIUM 1.4 mg/dL (1.8-2.4); PHOSPHOROUS 3.6 mg/dL (2.5-4.9); POTASSIUM 3.9 mmol/L (3.5-5.1); UREA NITROGEN, BLOOD 7 mg/dL (7-18)
[2019-03-19] MEDS: BACLOFEN 20 MG TABLET GT SCH ×3 (05:34→21:41)
[2019-03-19] MEDS: ESOMEPRAZOLE MAGNESIUM 40 MG SUSPDR.PKT GT SCH (05:35)
[2019-03-19] MEDS: PHENYTOIN SODIUM IV 200 MG in IV NORMAL SALINE 50 ML IV SCH ×3 (05:36→21:42)
[2019-03-19] MEDS: POLYVINYL ALCOHOL OPHT DROPS 15 ML BOTTLE EACHEYE PRN ×2 (05:38→20:14)
[2019-03-19] MEDS: Z GUARD REMEDY PASTE 57 GM TUBE TOP PRN ×2 (05:40→20:14)
--- NOTE | 2019-03-19 06:36 | NUR ---
No neuro changes. BPs stable; off Levophed drip sice 0100. Tolerating GT feedings well; Off 0600 will resumed at 1000. No seizures during the shift. Addendum: 03/19/19 at 0640 by OTF SILVA RN Amended: Links added.
[2019-03-19 07:22] LABS: ABG BASE EXCESS -5.6 mmol/L; ABG HCO3 19.2 mmol/L; ABG PCO2 35.3 mmHg (35.0-45.0); ABG PH 7.353 (7.350-7.450); ABG PO2 139.6 mmHg (75.0-100.0); ABG SITE RIGHT RADIAL; ABG TOTAL HEMOGLOBIN 12.4 G/dL (12.0-16.0); COHb 0.6 % (0.5-1.5); MetHb 0.5 % (0.0-1.5); VENT MODE VENT - SIMV; VT, ABG 500 mL
[2019-03-19] MEDS ORDERED: DEXTROSE 50% 50 ML DISP.SYRIN IV ONE (07:30)
--- NOTE | 2019-03-19 07:30 | NUR ---
Nursing Note: Received patient resting.SIMV 12 VT 500 PS 10 Peep 5 and FiO2 of 30. Reported. Sinus on youth nutritional monitor. No bradycardia noted.
--- NOTE | 2019-03-19 07:41 | NUR ---
PT RECEIVED TRACH TO VENT WITH SETTINGS ON SIMV12/ VT 500/PS 10/ 28% / +5 OF PEEP. PT TOLERATING CURRENT SETTINGS FINE WITHOUT RESP DISCOMFORT. SHILEY 6 DCT SECURED AND INTACT. AIRWAY PATENT. BREATH SOUNDS CLEAR. PT HAS MINIMAL WHITE SECRETIONS. VENT ALARMS SET AND AUDIBLE. ROUTINE ABG COMPLETED ORDERED BY DR WORTHINGTON. RESULTS NON CRITICAL [facility] WILL CONTINUE TO MONITOR
[2019-03-19] MEDS ORDERED: DEXTROSE 10 % IN WATER 250 ML BAG IV ONE (07:49)
[2019-03-19] MEDS: LEVETIRACETAM IV 1,500 MG in IV DEXTROSE 5% 100 ML IV SCH ×2 (07:50→20:11)
--- NOTE | 2019-03-19 08:00 | NUR ---
Nursing Note: Pt tolerating tube feeding well. Noticed patient moves quiet a bit in bed today. Decorticate on left side and Decrebrate on right side.
[2019-03-19] MEDS: ACIDOPHILUS/BULGARICUS CHEW TAB GT SCH ×2 (08:10→20:29)
[2019-03-19] MEDS: HYDROGEN PEROXIDE 3% 118 ML BOTTLE TP SCH ×2 (08:11→20:33)
[2019-03-19] MEDS: DESMOPRESSIN 0.1 MG TABLET GT SCH ×2 (08:11→16:18)
[2019-03-19] MEDS: COD LIVER OIL/ZINC OXIDE OINT 113 GM TUBE TP SCH ×2 (08:11→20:31)
--- NOTE | 2019-03-19 10:30 | NUR ---
Nursing Note: Seen by Dr. Murphy and Dr. Wagner.
[2019-03-19] MEDS: MAGNESIUM SULFATE/D5W 100 ML IV SCH ×2 (11:24→12:22)
[2019-03-19] MEDS: ENOXAPARIN SODIUM 40 MG/0.4 ML DISP.SYRIN SQ SCH (11:27)
--- NOTE | 2019-03-19 14:00 | NUR ---
Nursing Note: Frequent neurochecks done. Pt noted to be having small rhythmic movements. No other changes in vital signs
--- NOTE | 2019-03-19 15:34 | NUR ---
Nursing Note: Pt noted to have episode of seizure activity. Pulsing of left side craniotomy. Apnecc episodes. Dr. Ag made aware. New order for stat CT. Dr. Iqbal made aware. Suggestive of seizure Ativan administered. Addendum: 03/19/19 at 1648 by JEN MCPHERSON RN Pt also noted with sinus pause on monitor. Strip printed and filed.
[2019-03-19] MEDS: LORAZEPAM 2 MG/1 ML VIAL IV PRN (16:18)
--- NOTE | 2019-03-19 18:00 | NUR ---
Nursing Note: Dr. Iqbal at bedside. Removal stables for site of DIRECTORY CLERK shunt.
--- NOTE | 2019-03-19 19:15 | NUR ---
During report, lab clerk baseline became grassy, RNs at bedside. Patient appears to have a seizure? with full body rigidity, head turned to R, R arm decorticating and sat 89-90%. Dr. Iqbal in the unit and was summoned to the bedside. Assessed by MD and plan of care discussed. Dr. Iqbal spoke to Dr. Spaulding by phone and further care discussed. Addendum: 03/19/19 at 2116 by OTF SILVA RN Amended: Links added. Addendum: 03/19/19 at 2131 by OTF SILVA RN Amended: Links added.
--- NOTE | 2019-03-19 19:40 | NUR ---
Pt received in semi saldana's position, obtunded, unable to communicate and on continuous mechanical ventilation via Shiley 6 Trach. Pt is on Hobson ventilator with ordered settings of SIMV-12, VT-500, PS-10, PEEP+5, FIO2-28% Tolerating vent settings well. Trach is patent and secure. In-line nebulizer treatments given as ordered, Q4 with Albuterol/Atrovent. Treatments tolerated well, with no adverse reactions noted. Sxn'd small amounts of thick yellowish/white secretions. No signs or symtoms of respiratory distress noted. Bag/valve/mask and back up trach at bedside. HME changed. PPE used. Vent alarm parameters checked, on and audible. Will continue to monitor.
--- NOTE | 2019-03-19 19:40 | NUR ---
Shift assessment done; please refer to flow sheet for details. Patient with Shiley trache to mechanical ventilator with same settings; sat 100% on FIO2 28%. Patient opens eyes spontaneously but doesn't track and follow any commands. Post HEAVY EQUIPMENT SALES ASSOCIATE shunt sites open to air with small amount old blood. Meeker intact. L scalp area sunken with intermittent bulging and pulsations. Dr. Iqbal aware; with new orders received. Fentanyl 25 mcg given IV via KILEY PICC line. Other unused ports flushed with NS; patent. Addendum: 03/19/19 at 2131 by OTF SILVA RN Amended: Links added.
[2019-03-19] MEDS: FENTANYL CITRATE 100 MCG/2 ML AMPUL IV PRN (19:43)
[2019-03-19] MEDS: FOLIC ACID 1 MG TABLET GT SCH (20:29)
[2019-03-19] MEDS: THIAMINE HCL 100 MG TABLET GT SCH (20:30)
[2019-03-19] MEDS: CHOLECALCIFEROL 1,000 UNIT TABLET GT SCH (20:30)
[2019-03-20] VITALS (29 sets, daily range): BP systolic 94–143; BP diastolic 50–86
[2019-03-20] MEDS: ALBUTEROL SULFATE 2.5 MG/3 ML NEBU IH SCH ×6 (03:38→23:03)
[2019-03-20] MEDS: IPRATROPIUM BROMIDE 0.5 MG/2.5 ML NEBU NEB SCH ×6 (03:38→23:04)
[2019-03-20] MEDS: FENTANYL CITRATE 100 MCG/2 ML AMPUL IV PRN (04:17)
--- NOTE | 2019-03-20 04:45 | NUR ---
To CT with full monitoring. Medicated with Fentanyl 25 mcg IV for pain and generalized discomfort prior to transport.
--- NOTE | 2019-03-20 05:09 | NUR ---
Transferred to CT and back using vent on battery and oxygen tank. No incidents or complications. Plugged vent into red emergency outlet. Bag/valve/mask and Back up trach at bedside. Tolerating vent settings well.
--- NOTE | 2019-03-20 05:10 | NUR ---
Back from CT. Am care done. Gets rigid during care; no neuro changes. VS stable.
[2019-03-20] MEDS: BACLOFEN 20 MG TABLET GT SCH ×3 (05:26→21:40)
[2019-03-20] MEDS: ESOMEPRAZOLE MAGNESIUM 40 MG SUSPDR.PKT GT SCH (05:26)
[2019-03-20] MEDS: PHENYTOIN SODIUM IV 200 MG in IV NORMAL SALINE 50 ML IV SCH ×2 (05:27→14:19)
[2019-03-20] MEDS: Z GUARD REMEDY PASTE 57 GM TUBE TOP PRN (05:28)
[2019-03-20 05:53] LABS: BASOPHILS % (AUTO) 0.6 % (0.0-2.0); EOSINOPHILS # (AUTO) 0.2 K/uL (0.0-0.7); EOSINOPHILS % (AUTO) 3.5 % (0.0-7.0); HEMOGLOBIN 8.6 g/dL (10.9-14.3); LYMPHOCYTES # (AUTO) 1.5 K/uL (20.0-40.0); LYMPHOCYTES % (AUTO) 22.8 % (20.5-51.5); MEAN CORPUSCULAR HEMOGLOBIN 33.4 uug (24.7-32.8); MEAN CORPUSCULAR HGB CONC 36 g/dL (32.3-35.6); MEAN CORPUSCULAR VOLUME 93.5 fL (75.5-95.3); MONOCYTES # (AUTO) 0.4 K/uL (2.0-10.0); MONOCYTES % (AUTO) 6.2 % (0.0-11.0); NEUTROPHILS # (AUTO) 4.5 K/uL (1.8-8.9); NEUTROPHILS % (AUTO) 66.9 % (38.5-71.5); PLATELET COUNT (AUTO) 181 K/uL (179-408); RED BLOOD CELL COUNT(AUTO) 2.57 MIL/uL (3.63-4.92); WHITE BLOOD COUNT (AUTO) 6.7 K/uL (3.8-11.8)
[2019-03-20 05:57] LABS: CARBON DIOXIDE 26 mmol/L (21-32); CHLORIDE 102 mmol/L (98-107); CREATININE 0.4 mg/dL (0.6-1.3); GLUCOSE 93 mg/dL (74-106); MAGNESIUM 1.6 mg/dL (1.8-2.4); PHOSPHOROUS 3.3 mg/dL (2.5-4.9); POTASSIUM 3.8 mmol/L (3.5-5.1); UREA NITROGEN, BLOOD 7 mg/dL (7-18)
--- NOTE | 2019-03-20 06:55 | NUR ---
Tolerated GT feedings well; off 0600 will be resumed at 1000. Condition unchanged. No seizures during the shift. Addendum: 03/20/19 at 0656 by OTF SILVA RN Amended: Links added.
--- NOTE | 2019-03-20 07:40 | NUR ---
Nursing Note: Received patient resting in bed. Shiley 6 attached to costa vent SIMV 12 VT 500 PS 10 Peep 5 FiO2 28%. Abdomen soft and non distended. Bowel sounds present. Sinus Rhythm on director cardiac. No apparent pain at this time. No seizure episodes at this time. Will continue to monitor.
[2019-03-20] MEDS: LEVETIRACETAM IV 1,500 MG in IV DEXTROSE 5% 100 ML IV SCH ×2 (08:25→19:25)
[2019-03-20] MEDS: ENOXAPARIN SODIUM 40 MG/0.4 ML DISP.SYRIN SQ SCH (09:00)
[2019-03-20] MEDS: DESMOPRESSIN 0.1 MG TABLET GT SCH ×2 (09:28→17:13)
[2019-03-20] MEDS: ACIDOPHILUS/BULGARICUS CHEW TAB GT SCH ×2 (09:28→20:26)
[2019-03-20] MEDS: COD LIVER OIL/ZINC OXIDE OINT 113 GM TUBE TP SCH ×2 (09:29→20:35)
--- NOTE | 2019-03-20 09:30 | NUR ---
Nursing Note: Seen by Dr. Murphy and Dr Wagner. New orders acknowledged and carried out. Lovenox to be held due to small bleeding noted on CT. Neurosurgery made aware.
[2019-03-20] MEDS: HYDROGEN PEROXIDE 3% 118 ML BOTTLE TP SCH ×2 (09:31→20:36)
[2019-03-20] MEDS: MAGNESIUM SULFATE/D5W 100 ML IV SCH ×2 (10:05→10:44)
[2019-03-20] MEDS: VITAL AF 1.2 1,000 ML LIQUID GT PRN (10:55)
--- NOTE | 2019-03-20 12:00 | NUR ---
Nursing Note: Received call from neurosurgeon to order extensive X-ray exams. Pt turned repositioned q2h. No apparent distress at this time.
[2019-03-20] MEDS: LORAZEPAM 2 MG/1 ML VIAL IV PRN ×2 (12:17→17:09)
--- NOTE | 2019-03-20 12:20 | NUR ---
Nursing Note: Pt posturing head to right side. Protrusion noted over area of craniotomy with no bone flap. Pt making rhythmic movements. Ativan administered as ordered.
--- NOTE | 2019-03-20 14:00 | NUR ---
Nursing Note: Protrusion appears to have minimized. Pt abdomen soft and non distended. No distress at this time.
--- NOTE | 2019-03-20 17:20 | NUR ---
Nursing Note: Pt noted to have protrusion during perineal care and rhythmic movements. Noted to have small bowel movement. Pt saturation dropped to 77% during 1 minute episode slight increase in heart rate, flushing of face. Ativan administered as ordered. Rhythmic movements subsided. Saturations increased again. Pt tolerated pm care after administration of ativan. Resting comfortably.
--- NOTE | 2019-03-20 17:59 | NUR ---
PT REMAINS ON CARBAJAL VENT, TOLERATING VENT SETTINGS WELL, NO SOB NOTED. NO VENT CHANGES MADE. TRACH IS PATENT AND SECURED WITH TIES. BVM AND BACK UP TRACH AT BEDSIDE. WILL CONTINUE CURRENT THERAPY.
--- NOTE | 2019-03-20 19:36 | NUR ---
Pt received on Hobson ventilator with settings of SIMV 12, VT 500, PSV 10, Peep +5, FiO2 28%. Pt is trached with a Shiley 6 trach, which is secure and patent. Suctioned with minimal pale-yellowish secretions at this time. Inline tx given per MD orders, no adverse reactions noted. No signs of respiratory distress noted at this time. Ambu-bag and back-up trach at bedside. Vent alarms functioning and audible. Will continue to monitor pt throughout shift.
--- NOTE | 2019-03-20 19:40 | NUR ---
Received pt on specialty mattress under seizure precautions. Pt eyes non reactive, aphasic and unable to follow commands. Pt withdraws to pain, decorticates right arm with facial grimacing. Post SMALLTALK DEVELOPER shunt sites open to air, maik intact. Lower extremities rigid. Pt vent settings: SIMV 12, TV 500, PEEP 5, FIO2 28%. Pt O2 sats up to 100%. No acute distress noted. VSS, afebrile. Full assessment completed, neuro assessment done. Pt turned and repositioned. Aspiration and seizure precautions maintained. Will continue plan of care.
--- NOTE | 2019-03-20 19:45 | NUR ---
DR NAJERA here to see and evaluate pt. Updated MD of patient's condition. See order history. Will continue plan of care.
--- NOTE | 2019-03-20 20:03 | NUR ---
XRAY at bedside for portable KUB.
[2019-03-20] MEDS: BISACODYL 10 MG SUPP.RECT RC PRN (20:25)
[2019-03-20] MEDS: FOLIC ACID 1 MG TABLET GT SCH (20:26)
[2019-03-20] MEDS: CHOLECALCIFEROL 1,000 UNIT TABLET GT SCH (20:26)
[2019-03-20] MEDS: THIAMINE HCL 100 MG TABLET GT SCH (20:26)
--- NOTE | 2019-03-20 20:35 | NUR ---
Call from family member Anali Perez in regards to pt condition. Family member updated on pt status and was directed to DR REINALDO MD. DR NAJERA discussed and reviewed plan of care for pt via telephone.
--- NOTE | 2019-03-20 21:15 | NUR ---
Call made to DR RUIZ per request by DR NAJERA regarding patient EEG results. New orders received, see order history. Continue to monitor.
[2019-03-20] MEDS ORDERED: PHENYTOIN SODIUM IV SCH ×5 (22:00)
[2019-03-20] MEDS ORDERED: NORMAL SALINE IV SCH ×5 (22:00)
[2019-03-20] MEDS: IV 0.9% SODIUM CHLORID+ 20 KCL 1,000 ML IV PRN (23:13)
[2019-03-21] VITALS (24 sets, daily range): BP systolic 91–131; BP diastolic 46–86
[2019-03-21] MEDS: ALBUTEROL SULFATE 2.5 MG/3 ML NEBU IH SCH ×6 (03:22→23:57)
[2019-03-21] MEDS: IPRATROPIUM BROMIDE 0.5 MG/2.5 ML NEBU NEB SCH ×6 (03:22→23:57)
[2019-03-21] MEDS ORDERED: PHENYTOIN SODIUM 100 MG/2 ML VIAL IV ONE (03:51)
[2019-03-21] MEDS: MAGNESIUM HYDROXIDE 30 ML LIQUID UDC PO PRN (04:51)
[2019-03-21 04:54] LABS: BASOPHILS % (AUTO) 0.6 % (0.0-2.0); EOSINOPHILS # (AUTO) 0.2 K/uL (0.0-0.7); EOSINOPHILS % (AUTO) 3.7 % (0.0-7.0); HEMATOCRIT 23.4 % (31.2-41.9); HEMOGLOBIN 8.3 g/dL (10.9-14.3); LYMPHOCYTES # (AUTO) 1.7 K/uL (20.0-40.0); LYMPHOCYTES % (AUTO) 33.6 % (20.5-51.5); MEAN CORPUSCULAR HEMOGLOBIN 33.2 uug (24.7-32.8); MEAN CORPUSCULAR HGB CONC 36 g/dL (32.3-35.6); MEAN CORPUSCULAR VOLUME 93.2 fL (75.5-95.3); MONOCYTES # (AUTO) 0.3 K/uL (2.0-10.0); MONOCYTES % (AUTO) 6.5 % (0.0-11.0); NEUTROPHILS # (AUTO) 2.9 K/uL (1.8-8.9); NEUTROPHILS % (AUTO) 55.6 % (38.5-71.5); PLATELET COUNT (AUTO) 176 K/uL (179-408); RED BLOOD CELL COUNT(AUTO) 2.51 MIL/uL (3.63-4.92); WHITE BLOOD COUNT (AUTO) 5.2 K/uL (3.8-11.8)
[2019-03-21 05:06] LABS: CARBON DIOXIDE 25 mmol/L (21-32); CHLORIDE 101 mmol/L (98-107); CREATININE 0.4 mg/dL (0.6-1.3); GLUCOSE 83 mg/dL (74-106); MAGNESIUM 1.7 mg/dL (1.8-2.4); PHOSPHOROUS 3.5 mg/dL (2.5-4.9); POTASSIUM 3.5 mmol/L (3.5-5.1); UREA NITROGEN, BLOOD 7 mg/dL (7-18)
[2019-03-21] MEDS: ESOMEPRAZOLE MAGNESIUM 40 MG SUSPDR.PKT GT SCH (05:14)
[2019-03-21] MEDS: BACLOFEN 20 MG TABLET GT SCH ×3 (05:14→21:03)
--- NOTE | 2019-03-21 05:40 | NUR ---
AM care rendered. Kept pt clean and dry. Minimal white to metcalf secretions noted during suctioning. Pt had episodes of right arm posturing during the night. No neuro changes throughout the shift. Pt repositioned and turned. Seizure precautions and comfort measures maintained at all times. Pt VSS, afebrile. Will endorse new orders and updates on pt condition. Continue to monitor.
[2019-03-21] MEDS ORDERED: NORMAL SALINE IV SCH ×2 (06:00→22:00)
[2019-03-21] MEDS ORDERED: PHENYTOIN SODIUM IV SCH ×2 (06:00→22:00)
[2019-03-21] MEDS: IV NORMAL SALINE 250 ML IV PRN (06:02)
[2019-03-21] MEDS ORDERED: LEVETIRACETAM 500 MG TABLET PO SCH (08:00)
[2019-03-21] MEDS: LEVETIRACETAM 500 MG/5 ML LIQUID UDC NG SCH ×2 (08:23→19:59)
[2019-03-21] MEDS: DESMOPRESSIN 0.1 MG TABLET GT SCH ×2 (08:24→17:35)
[2019-03-21] MEDS: ACIDOPHILUS/BULGARICUS CHEW TAB GT SCH ×2 (08:24→20:00)
[2019-03-21] MEDS: COD LIVER OIL/ZINC OXIDE OINT 113 GM TUBE TP SCH ×2 (08:27→20:12)
[2019-03-21] MEDS: ENOXAPARIN SODIUM 40 MG/0.4 ML DISP.SYRIN SQ SCH ×2 (08:27→17:39)
[2019-03-21] MEDS: HYDROGEN PEROXIDE 3% 118 ML BOTTLE TP SCH ×2 (08:28→20:13)
[2019-03-21] MEDS: MAGNESIUM SULFATE/D5W 100 ML IV SCH ×2 (09:26→10:14)
[2019-03-21] MEDS ORDERED: VANCOMYCIN IV 1,000 MG in IV DEXTROSE 5% 250 ML IV ONE (11:15)
[2019-03-21] MEDS: IV 0.9% SODIUM CHLORID+ 20 KCL 1,000 ML IV PRN (13:30)
[2019-03-21] MEDS ORDERED: PHENYTOIN 100 MG/4 ML UDC NG SCH ×2 (14:00→22:00)
[2019-03-21] MEDS ORDERED: PHENYTOIN SODIUM IV 200 MG in IV NORMAL SALINE 50 ML IV SCH (14:00)
--- NOTE | 2019-03-21 19:45 | NUR ---
Received pt in bed under seizure precautions. Pt unresponsive to name but withdraws to pain. Pt tolerating current vent settings: SIMV 12, PS 10, PEEP 5, TV 500, FIO2 40%. O2 sat up to 100%. Pt suctioned with minimal amount of white secretions. KILEY PICC line running NS with KCL 20 MEQ at 75 cc/hr. F/C and Flexiseal in place. Seizure and aspiration precautions maintained. VSS, afebrile. Frequent Neuro assessments noted. Pt turned and repositioned. No acute distress noted. Continue to monitor.
--- NOTE | 2019-03-21 19:52 | NUR ---
Pt noted to have focal seizure involving blinking of the eyes and twitching of the lips for about 1 minute. All VS stable during event. No neuro changes. No acute distress noted. DR NAJERA made aware. No new orders received.
[2019-03-21] MEDS: THIAMINE HCL 100 MG TABLET GT SCH (20:01)
[2019-03-21] MEDS: FOLIC ACID 1 MG TABLET GT SCH (20:11)
[2019-03-21] MEDS: CHOLECALCIFEROL 1,000 UNIT TABLET GT SCH (20:11)
[2019-03-21] MEDS: VITAL AF 1.2 1,000 ML LIQUID GT PRN (21:38)
[2019-03-22] VITALS (15 sets, daily range): BP systolic 91–125; BP diastolic 51–81
[2019-03-22] MEDS: IV 0.9% SODIUM CHLORID+ 20 KCL 1,000 ML IV PRN (02:17)
[2019-03-22] MEDS: IPRATROPIUM BROMIDE 0.5 MG/2.5 ML NEBU NEB SCH ×5 (03:15→22:20)
[2019-03-22] MEDS: ALBUTEROL SULFATE 2.5 MG/3 ML NEBU IH SCH ×5 (03:15→22:20)
--- NOTE | 2019-03-22 03:15 | NUR ---
RECEIVED PT ON A CARBAJAL VENTILATOR WITH THE FOLLOWING SETTINGS CHARTED ON THE MECHANICAL VENTILATOR NOTES. PT IS TRACHED WITH A SHILEY 6 AND IT IS SECURED AND PATENT. SUCTIONED SMALL YELLOWISH SECRETIONS. HHN TX GIVEN PER MD ORDERS AND TOLERATED WELL WITH NO ADVERSE REACTIONS. AMBU BAG AND SPARE TRACH IS BY BEDSIDE. VENT IS PLUGGED IN THE RED OUTLET. VENT ALARMS CHECKED AND THEY ARE ON AND AUDIBLE. NO SOB NOTED AT THIS TIME.
[2019-03-22 05:39] LABS: BASOPHILS % (AUTO) 0.8 % (0.0-2.0); EOSINOPHILS # (AUTO) 0.2 K/uL (0.0-0.7); EOSINOPHILS % (AUTO) 4.2 % (0.0-7.0); HEMATOCRIT 23.5 % (31.2-41.9); HEMOGLOBIN 8.3 g/dL (10.9-14.3); LYMPHOCYTES # (AUTO) 1.3 K/uL (20.0-40.0); LYMPHOCYTES % (AUTO) 30.4 % (20.5-51.5); MEAN CORPUSCULAR HEMOGLOBIN 33.1 uug (24.7-32.8); MEAN CORPUSCULAR HGB CONC 36 g/dL (32.3-35.6); MEAN CORPUSCULAR VOLUME 93.3 fL (75.5-95.3); MONOCYTES # (AUTO) 0.2 K/uL (2.0-10.0); MONOCYTES % (AUTO) 5.5 % (0.0-11.0); NEUTROPHILS # (AUTO) 2.5 K/uL (1.8-8.9); NEUTROPHILS % (AUTO) 59.1 % (38.5-71.5); PLATELET COUNT (AUTO) 183 K/uL (179-408); RED BLOOD CELL COUNT(AUTO) 2.52 MIL/uL (3.63-4.92); WHITE BLOOD COUNT (AUTO) 4.2 K/uL (3.8-11.8)
[2019-03-22] MEDS: BACLOFEN 20 MG TABLET GT SCH ×3 (05:42→21:04)
[2019-03-22] MEDS: ESOMEPRAZOLE MAGNESIUM 40 MG SUSPDR.PKT GT SCH (05:42)
[2019-03-22 05:47] LABS: CARBON DIOXIDE 23 mmol/L (21-32); CHLORIDE 97 mmol/L (98-107); CREATININE 0.4 mg/dL (0.6-1.3); GLUCOSE 80 mg/dL (74-106); MAGNESIUM 1.5 mg/dL (1.8-2.4); PHENYTOIN (DILANTIN) 18.7 ug/mL (10.0-20.0); PHOSPHOROUS 2.9 mg/dL (2.5-4.9); UREA NITROGEN, BLOOD 5 mg/dL (7-18)
[2019-03-22] MEDS ORDERED: PHENYTOIN 100 MG/4 ML UDC NG SCH ×2 (06:00→14:00)
--- NOTE | 2019-03-22 06:06 | NUR ---
AM care provided, oral care done. Pt passed some gas during care. Pt turned and repositioned, kept clean and dry. Continuous maintenance IVF running @ 75 cc/hr. Gtube feedings stopped at 0600 and will resume at 1000 AM. No acute distress noted. No neuro changes throughout the shift. See nursing interventions for data. Will continue to monitor.
--- NOTE | 2019-03-22 07:45 | NUR ---
Attending Anton Grijalva in the unit to see and examine patient, full report given Orders to dcd IVF received and implemented.
[2019-03-22] MEDS: PHENYTOIN 100 MG/4 ML UDC GT SCH ×3 (07:54→21:03)
[2019-03-22] MEDS: LEVETIRACETAM 500 MG/5 ML LIQUID UDC NG SCH ×2 (08:06→20:44)
[2019-03-22] MEDS: ACIDOPHILUS/BULGARICUS CHEW TAB GT SCH ×2 (08:06→20:45)
[2019-03-22] MEDS: DESMOPRESSIN 0.1 MG TABLET GT SCH (08:07)
[2019-03-22] MEDS: COD LIVER OIL/ZINC OXIDE OINT 113 GM TUBE TP SCH ×2 (08:08→20:45)
[2019-03-22] MEDS: MAGNESIUM SULFATE/D5W 100 ML IV SCH ×2 (08:09→09:11)
[2019-03-22] MEDS: HYDROGEN PEROXIDE 3% 118 ML BOTTLE TP SCH ×2 (08:13→20:45)
--- NOTE | 2019-03-22 09:45 | NUR ---
Pulmonary serviced, Dr. Wagner in the unit to see and examine patient, full report given. Orders to continue with current care plan received.
[2019-03-22] MEDS: VITAL AF 1.2 1,000 ML LIQUID GT PRN (10:26)
[2019-03-22] MEDS ORDERED: MAGNESIUM SULFATE/D5W 100 ML IV SCH (10:30)
--- NOTE | 2019-03-22 12:45 | NUR ---
Attending physician and Surgeon Dr. Foster in the unit to see and examine patient, full report given. Orders to down-grade pt. to SKYLER received and implemented.
--- NOTE | 2019-03-22 14:35 | NUR ---
While at CT scan patient having spastic movements favoring right side and due to this reason unable to have procedure done. Dr. Foster called and notified to medicate pt. with current ativan on board.
[2019-03-22] MEDS: LORAZEPAM 2 MG/1 ML VIAL IV PRN (15:20)
--- NOTE | 2019-03-22 15:25 | NUR ---
transferred to [facility] room 312. Report received from Zakiya KNOTT Addendum: 03/22/19 at 1525 by HUSSEIN CHRISTOPHER RN Amended: Links added.
--- NOTE | 2019-03-22 15:30 | NUR ---
34 yr old female was admitted from subacute to CCU for hydocephalus post MUD ANALYSIS SUPERVISOR shunt placement on 03/17/19. now as SKYLER status in room 312. patient is unresponsive,. trach to vent with settings as follows simv12, tv 500, psv10 peep 5 and fio2 28%. PICC line intact via right upper arm. PEG intact, tube fdg Viatal af 1.2 at 60ml/hr. no residuals bhatt catheter intact, urine 950 out on day shift. has a rectal tube for diarrhea.ekg sinus rhythm . afebrile. on first step air mattress. dvt pumps intact. Addendum: 03/22/19 at 1645 by HUSSEIN CHRISTOPHER RN Amended: Links added. Addendum: 03/22/19 at 1646 by HUSSEIN CHRISTOPHER RN duplicated entry
--- NOTE | 2019-03-22 15:30 | NUR ---
34 yr old female was admitted from subacute to CCU for hydocephalus post ETHANOL QUALITY LEADER shunt placement on 03/17/19. now as SKYLER status in room 312. patient is unresponsive,. trach to vent with settings as follows simv12, tv 500, psv10 peep 5 and fio2 28%. PICC line intact via right upper arm. PEG intact, tube fdg Viatal af 1.2 at 60ml/hr. no residuals bhatt catheter intact, urine 950 out on day shift. has a rectal tube for diarrhea.ekg sinus rhythm . afebrile. on first step air mattress. dvt pumps intact. Addendum: 03/22/19 at 1614 by HUSSEIN CHRISTOPHER RN Amended: Links added. Addendum: 03/22/19 at 1645 by HUSSEIN CHRISTOPHER RN Amended: Links added.
--- NOTE | 2019-03-22 19:33 | NUR ---
report given to Janee KNOTT.
--- NOTE | 2019-03-22 20:00 | NUR ---
Received patient laying in bed. Unresponsive to stimuli. 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 Has maik on the right side of her hear and behind the right ear s/p shunt placement. Pupils fixed at 5 mm. Patient is trach to vent dependent. SIMV 12, TV 500, PEEP 5 and FiO2 28%. PICC line on the right upper arm, triple lumen, patent and intact. TELE SR at 66. PEG on the right upper abd is intact, no residual. Tube feeding is Viatal AF 1.2 at 60 mls/hr. On air mattress. Clarke is draining clear and yellow urine. Rectal tube in place, brown and liquid consistency. Heels afloat. Pulse OX at bedside, sating at 100%. DVT pumps on. Safety initiated. Call light within reach. Will continue to monitor.
[2019-03-22] MEDS: THIAMINE HCL 100 MG TABLET GT SCH (20:45)
[2019-03-22] MEDS: FOLIC ACID 1 MG TABLET GT SCH (20:45)
[2019-03-22] MEDS: CHOLECALCIFEROL 1,000 UNIT TABLET GT SCH (20:45)
[2019-03-22] MEDS: ENOXAPARIN SODIUM 40 MG/0.4 ML DISP.SYRIN SQ SCH (20:46)
--- NOTE | 2019-03-22 23:03 | NUR ---
Report given to HEDY Forrest. Patient is in fair/stable condition.
--- NOTE | 2019-03-22 23:05 | NUR ---
Received report from HEDY JARA. Pt up on specialty mattress and under seizure precautions. Pt pupils dilated, no reaction. Gag reflex present. Pt withdraws to pain, has episodes of posturing. Pt tolerating current vent settings: SIMV 12, PS 10, PEEP 5, TV 500, Fio2 28%. O2 sats up to 99%. F/C and Flexiseal intact. Assessment completed. Oral care done. VSS, afebrile. See nursing interventions for more data. Continue plan of care.
[2019-03-23] VITALS (7 sets, daily range): BP systolic 92–110; BP diastolic 46–57
[2019-03-23] MEDS: IPRATROPIUM BROMIDE 0.5 MG/2.5 ML NEBU NEB SCH ×7 (00:07→23:06)
[2019-03-23] MEDS: ALBUTEROL SULFATE 2.5 MG/3 ML NEBU IH SCH ×7 (00:07→23:06)
[2019-03-23] MEDS ORDERED: hydrALAZINE HCL 20 MG/1 ML VIAL IV PRN (00:30)
--- NOTE | 2019-03-23 00:36 | NUR ---
Paged solutions sales consultant DR DOWNEY in regards to patient BP 174/87. New orders received. Hydralazine 25 mg IV q4H prn. Will carry out order and continue to monitor pt closely. Addendum: 03/23/19 at 0041 by ALICIA ARENAS RN WRONG PATIENT
[2019-03-23] MEDS: BACLOFEN 20 MG TABLET GT SCH ×3 (05:03→22:05)
[2019-03-23] MEDS: PHENYTOIN 100 MG/4 ML UDC GT SCH ×3 (05:03→22:06)
[2019-03-23] MEDS: ESOMEPRAZOLE MAGNESIUM 40 MG SUSPDR.PKT GT SCH (05:04)
--- NOTE | 2019-03-23 05:13 | NUR ---
PT ON CONT CARBAJAL VENT WITH SHILEY # [address] AND SECURED, WITH SAME CURRENT VENT SETTINGS, PT DOES ASSIST AT TIMES, CHECK CUFF, SUCTIONED LIGHT PALE YELL TINGE SECRETIONS, TRACH CARE DONE, CHANGE HME, ALL VENT ALARMS GOOD, NO VENT CHANGES MADE, AMBU BAG AT BEDSIDE, NO VENT CHANGES MADE, CONT PULSE OXY AT BEDSIDE, SAT 100%. Neel WALLSP Addendum: 03/23/19 at 0515 by BESS PACHECO RT Amended: Links added.
--- NOTE | 2019-03-23 05:18 | NUR ---
AM care provided. Pt suctioned noted to have minimal white secretions. Pt turned and repositioned. VSS, afebrile. No acute distress noted. Aspiration and seizure precautions maintained. Will continue to monitor.
[2019-03-23 06:30] LABS: BASOPHILS % (AUTO) 0.9 % (0.0-2.0); EOSINOPHILS # (AUTO) 0.3 K/uL (0.0-0.7); EOSINOPHILS % (AUTO) 5.8 % (0.0-7.0); HEMATOCRIT 23.1 % (31.2-41.9); HEMOGLOBIN 8.4 g/dL (10.9-14.3); LYMPHOCYTES # (AUTO) 1.2 K/uL (20.0-40.0); LYMPHOCYTES % (AUTO) 24.2 % (20.5-51.5); MEAN CORPUSCULAR HEMOGLOBIN 33.4 uug (24.7-32.8); MEAN CORPUSCULAR HGB CONC 36 g/dL (32.3-35.6); MEAN CORPUSCULAR VOLUME 92.2 fL (75.5-95.3); MONOCYTES # (AUTO) 0.3 K/uL (2.0-10.0); MONOCYTES % (AUTO) 5.8 % (0.0-11.0); NEUTROPHILS % (AUTO) 63.3 % (38.5-71.5); PLATELET COUNT (AUTO) 248 K/uL (179-408); RED BLOOD CELL COUNT(AUTO) 2.51 MIL/uL (3.63-4.92); WHITE BLOOD COUNT (AUTO) 4.8 K/uL (3.8-11.8)
[2019-03-23 06:47] LABS: ALANINE AMINOTRANSFERASE 51 U/L (14-59); ALKALINE PHOSPHATASE 144 U/L (50-136); ASPARTATE AMINOTRANSFERASE 24 U/L (15-37); BILIRUBIN,TOTAL 0.2 mg/dL (0.2-1.0); CARBON DIOXIDE 25 mmol/L (21-32); CHLORIDE 97 mmol/L (98-107); CREATININE 0.4 mg/dL (0.6-1.3); GLUCOSE 107 mg/dL (74-106); MAGNESIUM 1.6 mg/dL (1.8-2.4); POTASSIUM 3.6 mmol/L (3.5-5.1); TOTAL PROTEIN, SERUM 5.9 g/dL (6.4-8.2); UREA NITROGEN, BLOOD 7 mg/dL (7-18)
--- NOTE | 2019-03-23 08:00 | NUR ---
REMAINS OBTUNDED BUT RESPOND TO DEEP PAIN, VENTED SHILEY 6-12-500-28%- 5 SATURATING 100%. CONTINUE WITH SKYLER MANAGEMENT.
[2019-03-23] MEDS: ACIDOPHILUS/BULGARICUS CHEW TAB GT SCH ×2 (08:47→20:17)
[2019-03-23] MEDS: LEVETIRACETAM 500 MG/5 ML LIQUID UDC NG SCH ×2 (08:48→20:15)
[2019-03-23] MEDS: HYDROGEN PEROXIDE 3% 118 ML BOTTLE TP SCH ×2 (08:48→20:18)
[2019-03-23] MEDS: COD LIVER OIL/ZINC OXIDE OINT 113 GM TUBE TP SCH ×2 (08:49→20:17)
[2019-03-23] MEDS: Z GUARD REMEDY PASTE 57 GM TUBE TOP PRN ×2 (08:50→20:18)
[2019-03-23] MEDS ORDERED: MAGNESIUM OXIDE 400 MG TABLET GT ONE (09:00)
[2019-03-23] MEDS ORDERED: POTASSIUM CHLORIDE 20 MEQ POWDER PACKET GT ONE (09:00)
[2019-03-23] MEDS: VITAL AF 1.2 1,000 ML LIQUID GT PRN (09:34)
--- NOTE | 2019-03-23 12:00 | NUR ---
NO ACUTE CHANGE FROM AM ASSESSMENT
[2019-03-23] MEDS: IV NORMAL SALINE 250 ML IV PRN (14:24)
[2019-03-23 15:21] LABS: *BILIRUBIN,URIN NEGATIVE (NEGATIVE); *COLOR,URINE YELLOW (YELLOW); *KETONES,URINE NEGATIVE (NEGATIVE); *UROBILINOGEN,URINE 0.2 E.U./dl (NORMAL); LEUKOCYTE ESTERASE ,URINE 2+ (NEGATIVE); NITRITE, URINE NEGATIVE (NEGATIVE); UGLUCOSE NEGATIVE (NEGATIVE)
[2019-03-23 15:45] LABS: *BLOOD, URINE TRACE (NEGATIVE); *CLARITY,URINE HAZY (CLEAR)
[2019-03-23 15:47] LABS: BACTERIA,URINE MODERATE /HPF (NONE SEEN); SQUAMOUS EPITHELIAL CELL,UR FEW /HPF (NONE SEEN); WBC,URINE 20-50 /HPF (0-3)
--- NOTE | 2019-03-23 17:54 | NUR ---
SEEN BY DR NAJERA PLAN FLOOR PERSON SHUNT INSERTION NEXT WEEK. SUPERINTENDENT INSTITUTION AWARE
--- NOTE | 2019-03-23 19:30 | NUR ---
Report received. Patient S/P MUSEUM INFORMATICS SPECIALIST shunt placement 03/18/2019 for Hydrocephalus. With trache to vent; settings as follows: SIMV=12, PS=10, LD=327xs, PEEP=5 and FIO2=28%. Sat above 94%. NAD noted. Doesn't open eyes to pain, noted posturing and facial grimacing. L frontal scalp area sunken and R post open sites with maik intact; clean and dry. Assessment done; see [facility] flow sheet for complete data. Addendum: 03/23/19 at 2232 by OTF SILVA RN Amended: Links added. Addendum: 03/23/19 at 223 by OTF SILVA RN Amended: Links added. Addendum: 03/23/19 at 2233 by OTF SILVA RN Amended: Links added. Addendum: 03/23/19 at 2234 by OTF SILVA RN Amended: Links added. Addendum: 03/23/19 at 2234 by OTF SILVA RN Amended: Links added.
--- NOTE | 2019-03-23 19:32 | NUR ---
RECEIVED PT ON CARBAJAL VENTILATOR. CURRENT SETTINGS ARE: SIMV 12, VT 500, PS 10, PEEP +5, FIO2 28%. NO CHANGES MADE AT THIS TIME. PT APPEARS TO BE TOLERATING SETTINGS AT THIS TIME. YUAN 6 DCT TRACH IS PATENT AND SECURED WITH FOAM TRACH TIES. SUCTIONED SMALL AMOUNT OF THIN, WHITE/YELLOW SECRETIONS. VENT ALARMS CHECKED, ARE ON AND FUNCTIONING PROPERLY. AMBU BAG AND BACK UP TRACH ARE AT BEDSIDE. CONTINUOUS PULSE OX IS ON AND AUDIBLE. PT SHOWING NO S/S OF RESPIRATORY DISTRESS AT THIS TIME. WILL CONTINUE TO MONITOR THROUGHOUT SHIFT.
--- NOTE | 2019-03-23 20:15 | NUR ---
Turned and repositioned. Patient not to be turned to L side. HOB elevated above 30 degrees at all times. Skin care provided. Addendum: 03/23/19 at 2233 by OTF SILVA RN Amended: Links added. Addendum: 03/23/19 at 2233 by OTF SILVA RN Amended: Links added. Addendum: 03/23/19 at 2234 by OTF SILVA RN Amended: Links added. Addendum: 03/23/19 at 2235 by OTF SILVA RN Amended: Links added.
[2019-03-23] MEDS: FOLIC ACID 1 MG TABLET GT SCH (20:16)
[2019-03-23] MEDS: CHOLECALCIFEROL 1,000 UNIT TABLET GT SCH (20:16)
[2019-03-23] MEDS: THIAMINE HCL 100 MG TABLET GT SCH (20:17)
[2019-03-23] MEDS: POLYVINYL ALCOHOL OPHT DROPS 15 ML BOTTLE EACHEYE PRN (20:18)
[2019-03-23] MEDS: ENOXAPARIN SODIUM 40 MG/0.4 ML DISP.SYRIN SQ SCH (20:21)
[2019-03-24] VITALS (8 sets, daily range): BP systolic 90–147; BP diastolic 28–59
[2019-03-24] MEDS: IPRATROPIUM BROMIDE 0.5 MG/2.5 ML NEBU NEB SCH ×6 (03:31→22:30)
[2019-03-24] MEDS: ALBUTEROL SULFATE 2.5 MG/3 ML NEBU IH SCH ×6 (03:32→22:30)
[2019-03-24] MEDS: IV NORMAL SALINE 250 ML IV PRN (04:39)
[2019-03-24] MEDS: BACLOFEN 20 MG TABLET GT SCH ×3 (05:19→22:30)
[2019-03-24] MEDS: ESOMEPRAZOLE MAGNESIUM 40 MG SUSPDR.PKT GT SCH (05:19)
[2019-03-24] MEDS: PHENYTOIN 100 MG/4 ML UDC GT SCH ×3 (05:20→22:31)
--- NOTE | 2019-03-24 06:23 | NUR ---
Continues to have facial grimacing and posturing when stimulated and during care. No seizures. L scalp area remains sunken. Stable on same vent settings with sat above 95%. Tolerated GT feedings well; off 0600 and will be resumes at 1000. Urine udrxed=8354 x 12H; Flexi seal bag changed with 200 ml liquid yellow green stools. Addendum: 03/24/19 at 0625 by OTF SILVA RN Amended: Links added. Addendum: 03/24/19 at 0628 by OTF SILVA RN Amended: Links added.
[2019-03-24 07:22] LABS: BASOPHILS % (AUTO) 0.9 % (0.0-2.0); EOSINOPHILS # (AUTO) 0.2 K/uL (0.0-0.7); HEMATOCRIT 25.1 % (31.2-41.9); HEMOGLOBIN 8.9 g/dL (10.9-14.3); LYMPHOCYTES # (AUTO) 0.9 K/uL (20.0-40.0); LYMPHOCYTES % (AUTO) 14.8 % (20.5-51.5); MEAN CORPUSCULAR HEMOGLOBIN 33.3 uug (24.7-32.8); MEAN CORPUSCULAR HGB CONC 36 g/dL (32.3-35.6); MEAN CORPUSCULAR VOLUME 93.8 fL (75.5-95.3); MONOCYTES # (AUTO) 0.4 K/uL (2.0-10.0); MONOCYTES % (AUTO) 7.3 % (0.0-11.0); NEUTROPHILS # (AUTO) 4.2 K/uL (1.8-8.9); PLATELET COUNT (AUTO) 280 K/uL (179-408); RED BLOOD CELL COUNT(AUTO) 2.68 MIL/uL (3.63-4.92); WHITE BLOOD COUNT (AUTO) 5.8 K/uL (3.8-11.8)
--- NOTE | 2019-03-24 07:23 | NUR ---
L scalp appears to be more sunken. Report given to Rylee KNOTT. Message sent to Dr. Iqbal. Dr. Spaulding here; informed. Am labs drawn from PICC line port.
--- NOTE | 2019-03-24 07:35 | NUR ---
PT RECEIVED ON CONTINUOUS VENT SIMV 12 VT 500 PEEP 5 PS 10 FIO2 28%. TRACH IN PLACED AND SECURED WITH TRACH TIE. BACK UP TRACH AND AMBU BAG AT BEDSIDE. IN LINE TX GIVEN ORDERED. SUCTION PRN. VENT CHECKED, ALARMS WORKING WELL AND AUDIBLE. NO DISTRESS NOTED AT THIS TIME. WILL CONTINUE TO MONITOR.
[2019-03-24 07:37] LABS: CARBON DIOXIDE 27 mmol/L (21-32); CHLORIDE 113 mmol/L (98-107); CREATININE 0.4 mg/dL (0.6-1.3); GLUCOSE 101 mg/dL (74-106); MAGNESIUM 1.9 mg/dL (1.8-2.4); PHOSPHOROUS 3.8 mg/dL (2.5-4.9); POTASSIUM 3.8 mmol/L (3.5-5.1); UREA NITROGEN, BLOOD 8 mg/dL (7-18)
--- NOTE | 2019-03-24 07:55 | NUR ---
REMAINS OBTUNDED WITH VENT SETS AT 12-500-28-5 SATURATING 100%. NO SS OF PAIN OR DISTRESS. CONTINUE SKYLER OBSERVATION
[2019-03-24] MEDS: Z GUARD REMEDY PASTE 57 GM TUBE TOP PRN (08:29)
[2019-03-24] MEDS: HYDROGEN PEROXIDE 3% 118 ML BOTTLE TP SCH ×2 (08:29→20:37)
[2019-03-24] MEDS: ACIDOPHILUS/BULGARICUS CHEW TAB GT SCH ×2 (08:29→20:25)
[2019-03-24] MEDS: COD LIVER OIL/ZINC OXIDE OINT 113 GM TUBE TP SCH ×2 (08:30→20:37)
[2019-03-24] MEDS: LEVETIRACETAM 500 MG/5 ML LIQUID UDC NG SCH ×2 (08:39→20:24)
--- NOTE | 2019-03-24 09:05 | NUR ---
SEEN BY DR. WORTHINGTON FOR PULMONARY FOLLOW UP. NO NEW ORDERS. VENT SETTINGS UNCHANGED.
--- NOTE | 2019-03-24 09:30 | NUR ---
PATIENT SEEN BY FILLING AND PACKING SUPERVISOR, DR. LEONARD. RE-ORDERED DESMOPRESSIN.
[2019-03-24] MEDS: VITAL AF 1.2 1,000 ML LIQUID GT PRN (10:07)
[2019-03-24] MEDS: DESMOPRESSIN 0.1 MG TABLET GT SCH ×2 (10:35→20:25)
[2019-03-24] MEDS ORDERED: LORAZEPAM 2 MG/1 ML VIAL IV ONE (11:30)
--- NOTE | 2019-03-24 12:30 | NUR ---
TO CT SCAN FOR CT HEAD VIA BED WITH RN AND RESPIRATORY
--- NOTE | 2019-03-24 12:30 | NUR ---
PT TRANSPORTED TO CT SCAN AND BACK TO ROOM 312 WITHOUT INCIDENT NOTED. VENT PLUGGED TO RED OUTLET, O2 CONNECTED. VENT CHECKED, ALARMS WORKING WELL. NO DISTRESS NOTED .
--- NOTE | 2019-03-24 13:18 | NUR ---
ativan for ct scan not given patient bp 98/54, patient calmed not combative.
--- NOTE | 2019-03-24 13:19 | NUR ---
BACK FROM CAT SCAN WITH RN AND RESPIRATORY ON BOARD
--- NOTE | 2019-03-24 18:17 | NUR ---
PATIENT SEEN BY NEURO SURGEON DR. NAJERA. NO NEW ORDERS OF NOW.
--- NOTE | 2019-03-24 18:42 | NUR ---
URINE RANDOM SAMPLE CAME BACK GRAM NEGATIVE RODS. DR. MUKHERJEE NOTIFIED AND SAID WILL REFER TO ID ON BOARD
--- NOTE | 2019-03-24 18:59 | NUR ---
CASING CREW CHA NOTIFIED OF URINE GRAM NEGATIVE RODS SAID WILL COME AND SEE PATIENT
--- NOTE | 2019-03-24 19:26 | NUR ---
Patient seen by Seb Valerio and ordered Levaquin 500mg via GT Q24H for UTI. Order noted and will carry out.
--- NOTE | 2019-03-24 20:00 | NUR ---
Received patient lying in bed. Non-verbal, obtunded. tracheostomy in place with vent sets at 12-500-28-5, saturating 100%. in no acute distress. No signs or symptoms of pain or SOB. GT intact and patent. Tolerating Vital AF at 60cc/hr. HOB kept elevated. PICC line on right upper arm intact with IVF on TKO. NSR on tele at 70/min. Clarke catheter intact and draining via gravity. Reposition patient for comfort. Continue to monitor.
[2019-03-24] MEDS: CHOLECALCIFEROL 1,000 UNIT TABLET GT SCH (20:24)
[2019-03-24] MEDS: LEVOFLOXACIN 500 MG TABLET GT SCH (20:24)
[2019-03-24] MEDS: THIAMINE HCL 100 MG TABLET GT SCH (20:25)
[2019-03-24] MEDS: FOLIC ACID 1 MG TABLET GT SCH (20:25)
[2019-03-24] MEDS: ENOXAPARIN SODIUM 40 MG/0.4 ML DISP.SYRIN SQ SCH (20:26)
[2019-03-25] VITALS (40 sets, daily range): BP systolic 80–146; BP diastolic 39–79
[2019-03-25] MEDS: IPRATROPIUM BROMIDE 0.5 MG/2.5 ML NEBU NEB SCH ×6 (02:30→23:26)
[2019-03-25] MEDS: ALBUTEROL SULFATE 2.5 MG/3 ML NEBU IH SCH ×6 (02:30→23:26)
--- NOTE | 2019-03-25 04:30 | NUR ---
SBAR REPORT GIVEN TO HEDY JEREZ.
[2019-03-25] MEDS: BACLOFEN 20 MG TABLET GT SCH ×3 (05:09→21:22)
[2019-03-25] MEDS: PHENYTOIN 100 MG/4 ML UDC GT SCH ×3 (05:09→21:22)
[2019-03-25] MEDS: ESOMEPRAZOLE MAGNESIUM 40 MG SUSPDR.PKT GT SCH (05:10)
--- NOTE | 2019-03-25 05:45 | NUR ---
PATIENT TRANSFERRED TO ICU UNIT ON SKYLER STATUS ROOM 1.
--- NOTE | 2019-03-25 06:00 | NUR ---
received from gisella via bed , connected to icu monitor .GISELLA status .tolerating vent setting no respiratory distress noted .tolerating vent settings .f/c to bsd .normal saline 10 ml/hr via the the piccline . no s/s of pain .open eyes spontaneously doesn't follow commands .
[2019-03-25 06:07] LABS: BASOPHILS # (AUTO) 0.1 K/uL (0.0-8.0); EOSINOPHILS # (AUTO) 0.4 K/uL (0.0-0.7); EOSINOPHILS % (AUTO) 6.3 % (0.0-7.0); HEMOGLOBIN 8.9 g/dL (10.9-14.3); LYMPHOCYTES # (AUTO) 1.3 K/uL (20.0-40.0); LYMPHOCYTES % (AUTO) 22.6 % (20.5-51.5); MEAN CORPUSCULAR HEMOGLOBIN 31.9 uug (24.7-32.8); MEAN CORPUSCULAR HGB CONC 34 g/dL (32.3-35.6); MEAN CORPUSCULAR VOLUME 93.3 fL (75.5-95.3); MONOCYTES # (AUTO) 0.5 K/uL (2.0-10.0); MONOCYTES % (AUTO) 8.9 % (0.0-11.0); NEUTROPHILS # (AUTO) 3.4 K/uL (1.8-8.9); NEUTROPHILS % (AUTO) 61.2 % (38.5-71.5); PLATELET COUNT (AUTO) 249 K/uL (179-408); RED BLOOD CELL COUNT(AUTO) 2.78 MIL/uL (3.63-4.92); WHITE BLOOD COUNT (AUTO) 5.6 K/uL (3.8-11.8)
[2019-03-25 06:18] LABS: CARBON DIOXIDE 24 mmol/L (21-32); CHLORIDE 114 mmol/L (98-107); CREATININE 0.5 mg/dL (0.6-1.3); GLUCOSE 122 mg/dL (74-106); MAGNESIUM 1.6 mg/dL (1.8-2.4); PHOSPHOROUS 3.6 mg/dL (2.5-4.9); POTASSIUM 3.5 mmol/L (3.5-5.1); UREA NITROGEN, BLOOD 13 mg/dL (7-18)
--- NOTE | 2019-03-25 07:30 | NUR ---
report received from Uri KNOTT, 34 yr old female , here as SKYLER patient, was admitted from Sub acute Unit on 03/16/19 for hydrocephalus. s/p OIL SPRAYING MACHINE OPERATOR SHUNT plcement on 03/17/19 and was having seizures and on 03/20/19 had a shunt tap. at present, no seizures noted. patient is tracheally intubated to vent simv 12, fio2 500, psv 10 peep 5 and fio2 28%. Has a gastrostomy tube for fdg. is receiving vital af 1.2 at 60ml/hr. bhatt catheter intact. urine has sediments. adequate output. on first step select air mattress and dvt pumps. ekg is sinus rhythm, afebrile Addendum: 03/25/19 at 1017 by HUSSEIN CHRISTOPHER RN Amended: Links added.
--- NOTE | 2019-03-25 07:30 | NUR ---
PT RECEIVED ON CONTINUOUS VENT SIMV 12 VT 500 PEEP 5 PS 10 FIO2 28%. TRACH IN PLACED AND SECURED WITH TRACH TIE. BACK UP TRACH AND AMBU BAG AT BEDSIDE. IN LINE TX GIVEN WITH UD ALBUTEROL + UD ATROVENT ORDERED. SUCTION PRN. VENT CHECKED, ALARMS WORKING WELL AND AUDIBLE. NO DISTRESS NOTED AT THIS TIME. WILL CONTINUE TO MONITOR.
--- NOTE | 2019-03-25 08:10 | NUR ---
seen by dr Adelson. parker new orders Addendum: 03/25/19 at 1019 by HUSSEIN CHRISTOPHER RN Amended: Links added.
[2019-03-25] MEDS: DESMOPRESSIN 0.1 MG TABLET GT SCH ×2 (08:23→20:33)
[2019-03-25] MEDS: ACIDOPHILUS/BULGARICUS CHEW TAB GT SCH ×2 (08:24→20:34)
[2019-03-25] MEDS: HYDROGEN PEROXIDE 3% 118 ML BOTTLE TP SCH ×2 (08:27→20:37)
[2019-03-25] MEDS: Z GUARD REMEDY PASTE 57 GM TUBE TOP PRN (08:28)
[2019-03-25] MEDS: POLYVINYL ALCOHOL OPHT DROPS 15 ML BOTTLE EACHEYE PRN (08:30)
[2019-03-25] MEDS: VITAL AF 1.2 1,000 ML LIQUID GT PRN (09:06)
[2019-03-25] MEDS ORDERED: MAGNESIUM SULFATE/D5W 100 ML IV SCH (09:15)
--- NOTE | 2019-03-25 09:41 | NUR ---
magnpaulaiun sulfate 1 gm started for mag level of 1.6 Addendum: 03/25/19 at 1026 by HUSSEIN CHRISTOPHER RN Amended: Links added.
[2019-03-25] MEDS: LEVETIRACETAM 500 MG/5 ML LIQUID UDC NG SCH ×2 (09:53→20:32)
[2019-03-25] MEDS: COD LIVER OIL/ZINC OXIDE OINT 113 GM TUBE TP SCH ×2 (09:54→20:37)
--- NOTE | 2019-03-25 12:07 | NUR ---
patient was hypotensive from /43-49. dr swift was informed. order received for 500 ml NS IV bolus and was given. Addendum: 03/25/19 at 1347 by HUSSEIN CHRISTOPHER RN Amended: Links added.
[2019-03-25] MEDS ORDERED: IV NORMAL SALINE 500 ML IV ONE (12:45)
[2019-03-25] MEDS: IV NORMAL SALINE 250 ML IV PRN (12:51)
--- NOTE | 2019-03-25 15:03 | NUR ---
remains hypotensive post fluid challenge. dr addison contacted. Addendum: 03/25/19 at 1503 by HUSSEIN CHRISTOPHER RN Amended: Links added. Addendum: 03/25/19 at 1657 by HUSSEIN CHRISTOPHER RN patient status changed to ICU/CCU
[2019-03-25] MEDS: NOREPINEPHRINE BITARTRATE 8 MG in IV DEXTROSE 5% 500 ML IV PRN (15:49)
--- NOTE | 2019-03-25 15:49 | NUR ---
levophed drip started at 1 mcg/min for persistent hypotension. Addendum: 03/25/19 at 1656 by HUSSEIN CHRISTOPHER RN Amended: Links added.
--- NOTE | 2019-03-25 16:00 | NUR ---
seen by Dr Iqbal. made aware of patient's change in status and need for levophed.drip and being titrated to keep sbp>90.. dr iqbal ordered 1 liter of NS bolus and was started. Addendum: 03/25/19 at 1837 by HUSSEIN CHRISTOPHER RN Amended: Links added.
[2019-03-25] MEDS ORDERED: IV NS 1000 ML 1,000 ML IV PRN (17:45)
[2019-03-25] MEDS ORDERED: IV NS 1000 ML 1,000 ML IV ONE (18:00)
[2019-03-25] MEDS: LEVOFLOXACIN 500 MG TABLET GT SCH (18:55)
--- NOTE | 2019-03-25 19:20 | NUR ---
report given to Uri RN Addendum: 03/25/19 at 1920 by HUSSEIN CHRISTOPHER RN Amended: Links added.
--- NOTE | 2019-03-25 20:00 | NUR ---
rounds made patient in bed ,open eyes on and off doesn't follow commands . trach to vent tolerating vent settings .suction via trach and via mouth with minimal thin whitish secretions .saturation 100% RR 12.vital 1.2 at 60 ml/hr in progress via the peg minimal residual .flushed with water.f/c to bsd with yellowish urine .turned and reposition to the right side . upper and lower extremities elevated with pillow and heels of bed . no s/s/ of pain . on levophed drip to keep sbp >90 mm/hg . continue to monitor bp q15 minutes .
[2019-03-25] MEDS: CHOLECALCIFEROL 1,000 UNIT TABLET GT SCH (20:34)
[2019-03-25] MEDS: FOLIC ACID 1 MG TABLET GT SCH (20:34)
[2019-03-25] MEDS: ENOXAPARIN SODIUM 40 MG/0.4 ML DISP.SYRIN SQ SCH (20:47)
[2019-03-25] MEDS: THIAMINE HCL 100 MG TABLET GT SCH (20:49)
--- NOTE | 2019-03-25 21:30 | NUR ---
due medication crushed given via peg ,flushed peg q used .
[2019-03-26] VITALS (93 sets, daily range): BP systolic 85–129; BP diastolic 45–80
--- NOTE | 2019-03-26 00:01 | NUR ---
Levophed drip now at 2 mcg/min .bp 116/70 mm/hg . continue to monitor v/s q15 minute .
[2019-03-26] MEDS: IPRATROPIUM BROMIDE 0.5 MG/2.5 ML NEBU NEB SCH ×6 (03:41→23:18)
[2019-03-26] MEDS: ALBUTEROL SULFATE 2.5 MG/3 ML NEBU IH SCH ×6 (03:41→23:18)
--- NOTE | 2019-03-26 03:53 | NUR ---
PT ON CONT CARBAJAL VENT WITH SHILEY # [address] AND SECURED, WITH SAME CURRENT VENT SETTINGS, PT DOES ASSIST AT TIMES, GOOD COUGH EFFORT, SUCTIONED LIGHT PALE YELL TINGE SECRETIONS, CHECK CUFF, ALL VENT ALARMS GOOD, NO VENT CHANGES MADE, NEB INLINE X 3 Q4 HOURS, TRACH CARE DONE. Neel WALLSP Addendum: 03/26/19 at 0355 by BESS PACHECO RT Amended: Links added.
--- NOTE | 2019-03-26 04:30 | NUR ---
am care done and changed soiled linens and gown . turned and reposition and elevated upper and lower extremities .hob up .trach care done and f/c done .
[2019-03-26 04:52] LABS: BASOPHILS % (AUTO) 0.8 % (0.0-2.0); EOSINOPHILS # (AUTO) 0.4 K/uL (0.0-0.7); EOSINOPHILS % (AUTO) 8.9 % (0.0-7.0); HEMATOCRIT 23.2 % (31.2-41.9); HEMOGLOBIN 8.2 g/dL (10.9-14.3); LYMPHOCYTES # (AUTO) 1.1 K/uL (20.0-40.0); LYMPHOCYTES % (AUTO) 22.3 % (20.5-51.5); MEAN CORPUSCULAR HEMOGLOBIN 33.3 uug (24.7-32.8); MEAN CORPUSCULAR HGB CONC 35 g/dL (32.3-35.6); MEAN CORPUSCULAR VOLUME 94.7 fL (75.5-95.3); MONOCYTES # (AUTO) 0.4 K/uL (2.0-10.0); MONOCYTES % (AUTO) 8.9 % (0.0-11.0); NEUTROPHILS % (AUTO) 59.1 % (38.5-71.5); PLATELET COUNT (AUTO) 230 K/uL (179-408)
[2019-03-26 05:01] LABS: ALANINE AMINOTRANSFERASE 48 U/L (14-59); ALKALINE PHOSPHATASE 159 U/L (50-136); ASPARTATE AMINOTRANSFERASE 20 U/L (15-37); BILIRUBIN,TOTAL 0.1 mg/dL (0.2-1.0); CARBON DIOXIDE 24 mmol/L (21-32); CHLORIDE 111 mmol/L (98-107); CREATININE 0.4 mg/dL (0.6-1.3); GLUCOSE 106 mg/dL (74-106); MAGNESIUM 1.5 mg/dL (1.8-2.4); PHOSPHOROUS 3.6 mg/dL (2.5-4.9); POTASSIUM 3.7 mmol/L (3.5-5.1); TOTAL PROTEIN, SERUM 6.1 g/dL (6.4-8.2); UREA NITROGEN, BLOOD 11 mg/dL (7-18)
[2019-03-26] MEDS: ESOMEPRAZOLE MAGNESIUM 40 MG SUSPDR.PKT GT SCH (05:21)
[2019-03-26] MEDS: PHENYTOIN 100 MG/4 ML UDC GT SCH ×3 (05:21→21:33)
[2019-03-26] MEDS: BACLOFEN 20 MG TABLET GT SCH ×3 (05:21→21:34)
[2019-03-26 05:38] LABS: RED BLOOD CELL COUNT(AUTO) 2.45 MIL/uL (3.63-4.92)
--- NOTE | 2019-03-26 06:00 | NUR ---
OFF LEVOPHED FOR NOW BP 101/57 HR 76 , WILL CONTINUE TO MONITOR BP .
[2019-03-26] MEDS: Z GUARD REMEDY PASTE 57 GM TUBE TOP PRN (06:04)
[2019-03-26] MEDS: POLYVINYL ALCOHOL OPHT DROPS 15 ML BOTTLE EACHEYE PRN (06:04)
--- NOTE | 2019-03-26 06:45 | NUR ---
restarted Levophed drip at 1 mcg/min 85/45 hr 70. will continue to monitor v/s .
[2019-03-26] MEDS: HYDROGEN PEROXIDE 3% 118 ML BOTTLE TP SCH ×2 (07:20→21:19)
--- NOTE | 2019-03-26 07:22 | NUR ---
PT RECEIVED TRACH TO VENT WITH SETTINGS ON SIMV12/ VT 500/PS 10/ 28% / +5 OF PEEP. PT TOLERATING CURRENT SETTINGS FINE WITHOUT RESP DISCOMFORT. SHILEY 6 DCT SECURED AND INTACT. AIRWAY PATENT. BREATH SOUNDS CLEAR. PT HAS MINIMAL WHITE SECRETIONS. VENT ALARMS SET AND AUDIBLE. ROUTINE WILL CONTINUE TO MONITOR
--- NOTE | 2019-03-26 07:23 | NUR ---
As per report and Surgeon recommendations patient should not be turn to left side. Repositioning Q2H will be alternating between right and supine.
--- NOTE | 2019-03-26 07:30 | NUR ---
Beside report from Yvonne Grewal patient received on ventilator, hemodynamically unstable, currently on levophed drip at 1mcg/min. As reported pt. failing to sustain SBP within desire limits with attempts to titrate. Patient on Ventilator SIM12, tv 500, PSV 10 Peep +5 &FIO2 of 28%. G-tube clamped PP 2B resumed at 1000. Picc line RUE patent and to TKO. Will continue with care plan.
--- NOTE | 2019-03-26 07:45 | NUR ---
Neurologyst Dr. Spaulding in the unit to see and examine patient. No new orders received.
[2019-03-26] MEDS: DESMOPRESSIN 0.1 MG TABLET GT SCH ×2 (08:38→21:17)
[2019-03-26] MEDS: LEVETIRACETAM 500 MG/5 ML LIQUID UDC NG SCH ×2 (08:40→19:52)
[2019-03-26] MEDS: ACIDOPHILUS/BULGARICUS CHEW TAB GT SCH ×2 (08:40→21:16)
[2019-03-26] MEDS: COD LIVER OIL/ZINC OXIDE OINT 113 GM TUBE TP SCH ×2 (08:42→21:19)
[2019-03-26] MEDS: VITAL AF 1.2 1,000 ML LIQUID GT PRN (10:27)
--- NOTE | 2019-03-26 11:10 | NUR ---
Pulmonary services, Dr. Harrison in the unit to see patient, full report given orders to continue with care plan received.
[2019-03-26] MEDS: MAGNESIUM SULFATE/D5W 100 ML IV SCH ×2 (14:41→16:13)
[2019-03-26] MEDS: IV NORMAL SALINE 250 ML IV PRN (14:46)
[2019-03-26] MEDS: PROTEIN SUPPLEMENT (PROSTAT) 30 ML LIQUID PO SCH (16:14)
[2019-03-26] MEDS: NOREPINEPHRINE BITARTRATE 8 MG in IV DEXTROSE 5% 500 ML IV PRN (16:16)
--- NOTE | 2019-03-26 17:15 | NUR ---
Attending physician Dr. Contreras, in the unit to see and examine patient.
--- NOTE | 2019-03-26 18:30 | NUR ---
Left pt. on bed resting, on levophed drip at 1mcg/min. failing to sustain SBP within desire limits with attempts to titrate. Patient on Ventilator SIM12, tv 500, PSV 10 Peep +5 &FIO2 of 28%. Toloerating GT Vital AF 1.2 at goal therapy with no residuals. Picc line RUE patent and to TKO. Will continue with care plan.
[2019-03-26] MEDS: LEVOFLOXACIN 500 MG TABLET GT SCH (18:38)
--- NOTE | 2019-03-26 19:30 | NUR ---
rounds made patient in bed ,sleeping eyes close ,tolerating vent setting via trach .02 saturation 100% rr12 ,bp 93/52 on Levophed drip at 1 mcg/min . continue to monitor q15 minutes .vital AF 1.2 at 55 ml/hr to the peg . f/c to bsd . continue to monitor v/s .
[2019-03-26] MEDS: FOLIC ACID 1 MG TABLET GT SCH (21:16)
[2019-03-26] MEDS: THIAMINE HCL 100 MG TABLET GT SCH (21:16)
[2019-03-26] MEDS: CHOLECALCIFEROL 1,000 UNIT TABLET GT SCH (21:18)
[2019-03-26] MEDS: ENOXAPARIN SODIUM 40 MG/0.4 ML DISP.SYRIN SQ SCH (21:18)
[2019-03-27] VITALS (68 sets, daily range): BP systolic 78–128; BP diastolic 35–91
--- NOTE | 2019-03-27 01:36 | NUR ---
PT ON CONT CARBAJAL VENT WITH SHILEY # [address] AND SECURED, WITH SAME CURRENT VENT SETTINGS, PT DOES ASSIST AT TIMES, GOOD COUGH EFFORT, SUCTIONED LIGHT PALE YELL TINGE SECRETIONS, CHANGE HME AND BRENNAN, ALL VENT ALARMS GOOD, NO VENT CHANGES MADE AT THIS TIME, PT STABLE , WITH NEB INLINE Q4 HOURS X 3. D TARA CANAS Addendum: 03/27/19 at 0139 by BESS PACHECO RT Amended: Links added.
[2019-03-27] MEDS: IPRATROPIUM BROMIDE 0.5 MG/2.5 ML NEBU NEB SCH ×7 (03:59→23:32)
[2019-03-27] MEDS: ALBUTEROL SULFATE 2.5 MG/3 ML NEBU IH SCH ×7 (03:59→23:33)
--- NOTE | 2019-03-27 04:00 | NUR ---
weaning Levophed drip now at 0.5 mcg/min ,bp 100/59.
--- NOTE | 2019-03-27 05:00 | NUR ---
am care done bath patient changed soiled linens and gown . applied Desitin to bilateral groin and z Guard to sacral area and cover with Mepilex .trach care done changed inner cannula and site cleanse with hydrogen peroxide .Clarke catheter care done . turned and reposition elevated upper and lower extremities with pillow heels off bed .scds to BLE .
[2019-03-27 05:08] LABS: CARBON DIOXIDE 26 mmol/L (21-32); CHLORIDE 102 mmol/L (98-107); CREATININE 0.3 mg/dL (0.6-1.3); GLUCOSE 89 mg/dL (74-106); MAGNESIUM 1.6 mg/dL (1.8-2.4); POTASSIUM 3.8 mmol/L (3.5-5.1); UREA NITROGEN, BLOOD 13 mg/dL (7-18)
[2019-03-27] MEDS: BACLOFEN 20 MG TABLET GT SCH ×3 (05:19→21:23)
[2019-03-27] MEDS: ESOMEPRAZOLE MAGNESIUM 40 MG SUSPDR.PKT GT SCH (05:19)
[2019-03-27] MEDS: PHENYTOIN 100 MG/4 ML UDC GT SCH ×3 (05:19→21:26)
[2019-03-27] MEDS: POLYVINYL ALCOHOL OPHT DROPS 15 ML BOTTLE EACHEYE PRN (05:20)
[2019-03-27] MEDS: Z GUARD REMEDY PASTE 57 GM TUBE TOP PRN (05:20)
[2019-03-27] MEDS: LEVETIRACETAM 500 MG/5 ML LIQUID UDC NG SCH ×2 (08:15→20:05)
[2019-03-27] MEDS: PROTEIN SUPPLEMENT (PROSTAT) 30 ML LIQUID PO SCH ×2 (08:16→16:19)
[2019-03-27] MEDS: DESMOPRESSIN 0.1 MG TABLET GT SCH (08:18)
[2019-03-27] MEDS: COD LIVER OIL/ZINC OXIDE OINT 113 GM TUBE TP SCH ×2 (08:20→20:06)
[2019-03-27] MEDS: ACIDOPHILUS/BULGARICUS CHEW TAB GT SCH ×2 (08:20→20:04)
[2019-03-27] MEDS: HYDROGEN PEROXIDE 3% 118 ML BOTTLE TP SCH ×2 (08:21→20:07)
[2019-03-27] MEDS: VITAL AF 1.2 1,000 ML LIQUID GT PRN (10:31)
--- NOTE | 2019-03-27 11:06 | NUR ---
Dr. Rashida White in the unit to see patient report given see orders hx.
--- NOTE | 2019-03-27 11:45 | NUR ---
pulmonary services, Dr. Harrison in the unit to see and examine patient.
[2019-03-27] MEDS ORDERED: MAGNESIUM OXIDE 400 MG TABLET GT ONE (12:00)
--- NOTE | 2019-03-27 16:43 | NUR ---
Attending physician Dr. Mireya Raymond in the unit to see and examine patient, report given, see order hx.
--- NOTE | 2019-03-27 16:56 | NUR ---
Attending ID services Anton Light in the unit to see and examine pt. Orders to continue with current care plan received.
--- NOTE | 2019-03-27 18:00 | NUR ---
A call to attending physician to notify him of SBP been in the 78/35 with HR of 73 and that patient is back on levophed after sbp recycle with no success in bringing up to desire limits. Will continue with care plan.
[2019-03-27] MEDS: NOREPINEPHRINE BITARTRATE 8 MG in IV DEXTROSE 5% 500 ML IV PRN (18:04)
[2019-03-27] MEDS: IV NORMAL SALINE 250 ML IV PRN (18:19)
[2019-03-27] MEDS: MIDODRINE HCL 5 MG TABLET PO SCH ×2 (18:42→20:29)
--- NOTE | 2019-03-27 19:45 | NUR ---
Received pt HOB elevated and on seizure precautions. Pt eyes close, unable to follow commands, withdraws to pain. Pt has episodes of posturing. Pt tolerating vent settings via trach: SIMV 12, TV 500, PS 10, PEEP 5, FIO2 28%. O2 saturation up to 100%. KILEY PICC line running LEVOPHED drip at 2 mcg/min, BP 104/60. Continue to monitor Q15 minutes. Pt on Gtube feedings VITAL AF running at 55 cc/hr, minimal residual noted. Aspiration and seizure precautions in place. VSS, afebrile. Assessment completed, pt turned and repositioned. No seizures noted upon assessment. No s/s of acute distress. Will continue to monitor.
--- NOTE | 2019-03-27 20:00 | NUR ---
Weaning Levophed drip at this time. Rate at 1 mcg/min, BP 104/60.
[2019-03-27] MEDS: THIAMINE HCL 100 MG TABLET GT SCH (20:04)
[2019-03-27] MEDS: LEVOFLOXACIN 500 MG TABLET GT SCH (20:04)
[2019-03-27] MEDS: FOLIC ACID 1 MG TABLET GT SCH (20:04)
[2019-03-27] MEDS: CHOLECALCIFEROL 1,000 UNIT TABLET GT SCH (20:06)
[2019-03-27] MEDS: ENOXAPARIN SODIUM 40 MG/0.4 ML DISP.SYRIN SQ SCH (20:31)
[2019-03-27] MEDS: MAGNESIUM HYDROXIDE 30 ML LIQUID UDC PO PRN (20:35)
[2019-03-28] VITALS (65 sets, daily range): BP systolic 82–114; BP diastolic 46–71
[2019-03-28] MEDS: ALBUTEROL SULFATE 2.5 MG/3 ML NEBU IH SCH ×6 (01:39→23:14)
[2019-03-28] MEDS: IPRATROPIUM BROMIDE 0.5 MG/2.5 ML NEBU NEB SCH ×6 (01:39→23:13)
--- NOTE | 2019-03-28 01:40 | NUR ---
PT ON CONT CARBAJAL VENT WITH SHILEY # [address] AND SECURED, WITH SAME CURRENT VENT SETTINGS, PT DOES ASSIST AT TIMES, GOOD COUGH EFFORT, TRACH CARE DONE, CHECK CUFF, CHANGE HME, NEB INLINE X 3 TOLL WELL, ALL VENT ALARMS GOOD, NO VENT CHANGES MADE, SUCTIONED LIGHT PALE YELL TINGE SECRETIONS, PT STABLE, SAT 100%. Neel WALLSP Addendum: 03/28/19 at 0142 by BESS PACHECO RT Amended: Links added.
--- NOTE | 2019-03-28 05:45 | NUR ---
AM care rendered. PICC line dressing changed. Pt maintained current vent settings, no acute distress noted. Aspiration and seizure precautions maintained at all times. Pt turned and repositioned, kept clean and dry. VSS, afebrile. Will continue plan of care.
[2019-03-28] MEDS: ESOMEPRAZOLE MAGNESIUM 40 MG SUSPDR.PKT GT SCH (05:47)
[2019-03-28] MEDS: BACLOFEN 20 MG TABLET GT SCH ×3 (05:47→21:41)
[2019-03-28] MEDS: PHENYTOIN 100 MG/4 ML UDC GT SCH ×3 (05:47→21:41)
[2019-03-28] MEDS: POLYVINYL ALCOHOL OPHT DROPS 15 ML BOTTLE EACHEYE PRN ×2 (05:48→20:45)
[2019-03-28 06:38] LABS: BASOPHILS % (AUTO) 0.8 % (0.0-2.0); EOSINOPHILS # (AUTO) 0.4 K/uL (0.0-0.7); EOSINOPHILS % (AUTO) 9.9 % (0.0-7.0); HEMATOCRIT 23.4 % (31.2-41.9); HEMOGLOBIN 8.1 g/dL (10.9-14.3); LYMPHOCYTES # (AUTO) 0.9 K/uL (20.0-40.0); LYMPHOCYTES % (AUTO) 21.4 % (20.5-51.5); MEAN CORPUSCULAR HEMOGLOBIN 32.2 uug (24.7-32.8); MEAN CORPUSCULAR HGB CONC 35 g/dL (32.3-35.6); MEAN CORPUSCULAR VOLUME 92.7 fL (75.5-95.3); MONOCYTES # (AUTO) 0.3 K/uL (2.0-10.0); MONOCYTES % (AUTO) 7.1 % (0.0-11.0); NEUTROPHILS # (AUTO) 2.6 K/uL (1.8-8.9); NEUTROPHILS % (AUTO) 60.8 % (38.5-71.5); PLATELET COUNT (AUTO) 185 K/uL (179-408); RED BLOOD CELL COUNT(AUTO) 2.52 MIL/uL (3.63-4.92); WHITE BLOOD COUNT (AUTO) 4.3 K/uL (3.8-11.8)
[2019-03-28 06:40] LABS: CARBON DIOXIDE 29 mmol/L (21-32); CHLORIDE 101 mmol/L (98-107); CREATININE 0.4 mg/dL (0.6-1.3); GLUCOSE 91 mg/dL (74-106); MAGNESIUM 1.7 mg/dL (1.8-2.4); PHOSPHOROUS 3.2 mg/dL (2.5-4.9); POTASSIUM 3.8 mmol/L (3.5-5.1); UREA NITROGEN, BLOOD 15 mg/dL (7-18)
--- NOTE | 2019-03-28 07:15 | NUR ---
report received from Christie KNOTT, 34 yr old female was admitted from Sub acute Unit on 03/16/19 for hydrocephalus. s/p MARINE TOWER OPERATOR SHUNT placement on 03/17/19 and was having seizures and on 03/20/19 had a shunt tap. at present, no seizures noted. patient is tracheally intubated to vent simv 12, fio2 500, psv 10 peep 5 and fio2 28%. Has a gastrostomy tube for fdg. is receiving vital af 1.2 at 55ml/hr off at present. will resume at 10am. bhatt catheter intact. urine has sediments. adequate output. on first step select air mattress and dvt pumps. ekg is sinus rhythm, afebrile. off levophed since 10am 03/27/19 now on Midodrine Addendum: 03/28/19 at 0741 by HUSSEIN CHRISTOPHER RN Amended: Links added. Addendum: 03/28/19 at 0748 by HUSSEIN CHRISTOPHER RN correction: levophed drip off since 10pm 03/27/19
[2019-03-28] MEDS: MIDODRINE HCL 5 MG TABLET PO SCH ×2 (08:17→20:43)
[2019-03-28] MEDS: ACIDOPHILUS/BULGARICUS CHEW TAB GT SCH ×2 (08:17→20:43)
[2019-03-28] MEDS: LEVETIRACETAM 500 MG/5 ML LIQUID UDC NG SCH ×2 (08:18→19:53)
[2019-03-28] MEDS: PROTEIN SUPPLEMENT (PROSTAT) 30 ML LIQUID PO SCH ×2 (08:19→17:49)
[2019-03-28] MEDS: COD LIVER OIL/ZINC OXIDE OINT 113 GM TUBE TP SCH ×2 (08:20→20:44)
[2019-03-28] MEDS: HYDROGEN PEROXIDE 3% 118 ML BOTTLE TP SCH ×2 (08:20→20:44)
--- NOTE | 2019-03-28 08:51 | NUR ---
seen by dr Bernard harrison orders Addendum: 03/28/19 at 0851 by HUSSEIN CHRISTOPHER RN Amended: Links added.
[2019-03-28] MEDS: VITAL AF 1.2 1,000 ML LIQUID GT PRN (09:45)
[2019-03-28] MEDS: IV NORMAL SALINE 250 ML IV PRN (09:45)
--- NOTE | 2019-03-28 10:30 | NUR ---
levophed resumed at 1mcg/min for hypotension Addendum: 03/28/19 at 1046 by HUSSEIN CHRISTOPHER RN Amended: Links added.
--- NOTE | 2019-03-28 11:49 | NUR ---
Spoke with Dr. Iqbal on the telephone. Full report given. stated no surgery at this time for the pt. Pt still receiving antibiotics.
[2019-03-28] MEDS ORDERED: MAGNESIUM SULFATE/D5W 100 ML IV SCH (12:00)
--- NOTE | 2019-03-28 12:49 | NUR ---
magnesium sulfate given IV for seruum mag level of 1.7 Addendum: 03/28/19 at 1249 by HUSSEIN CHRISTOPHER RN Amended: Links added.
--- NOTE | 2019-03-28 16:09 | NUR ---
complete bed bath given. skin care done, oral care and luke care done Addendum: 03/28/19 at 1610 by HUSSEIN CHRISTOPHER RN Amended: Links added.
[2019-03-28] MEDS: NOREPINEPHRINE BITARTRATE 8 MG in IV DEXTROSE 5% 500 ML IV PRN (17:48)
[2019-03-28] MEDS: LEVOFLOXACIN 500 MG TABLET GT SCH (18:03)
--- NOTE | 2019-03-28 18:51 | NUR ---
Received pt on Hobson ventilator with the following settings of AC-12, Vt-500, PEEP+5, FIO2-28%, trached with Shiley#6 DCT trach, which is in the place and secure. No s/s of respiratory distress noted. Airway care done, pt responded to physical stimuli. In-line HHN tx with 2.5mg Albuterol+0.5mg Atrovent given, pt tolerated well. Resus. bag and back up trach at bedside. Vent and alarms checked and reset.
--- NOTE | 2019-03-28 19:20 | NUR ---
report given to [email or web address] Addendum: 03/28/19 at 1921 by HUSSEIN CHRISTOPHER RN Amended: Links added.
--- NOTE | 2019-03-28 19:30 | NUR ---
Report received. Patient semicomatose, blinks and opens eyes to pain, but doesn't track or follow any commands. S/P LINE CONTROLLER Shunt placement 03/17/2019 for Hydrocephalus. Post op sites with maik intact; clean and dry. Trache Shiley#6 to ventilator with same settings; saturations 99-100%. On continuous Levophed drip to keep SBP above 90 via PICC line KILEY. BPs monitored closely. Assessment completed. Addendum: 03/28/19 at 2132 by OTF SILVA RN Amended: Links added. Addendum: 03/28/19 at 2136 by OTF SILVA RN Amended: Links added. Addendum: 03/28/19 at 2137 by OTF SILVA RN Amended: Links added.
--- NOTE | 2019-03-28 20:15 | NUR ---
Seen by Lia DAVIS; no new orders. Patient turned to R side; as per neuro surgeon's order patient not to turn to L side. L side scalp very sunken. HOB elevated above 30 degrees at all times. Skin care provided. GT feedings at 55 ml/H; tolerated well, no residual. Addendum: 03/28/19 at 2137 by OTF SILVA RN Amended: Links added. Addendum: 03/28/19 at 2137 by OTF SILVA RN Amended: Links added.
[2019-03-28] MEDS: FOLIC ACID 1 MG TABLET GT SCH (20:42)
[2019-03-28] MEDS: CHOLECALCIFEROL 1,000 UNIT TABLET GT SCH (20:43)
[2019-03-28] MEDS: THIAMINE HCL 100 MG TABLET GT SCH (20:43)
[2019-03-28] MEDS: Z GUARD REMEDY PASTE 57 GM TUBE TOP PRN (20:44)
[2019-03-28] MEDS: ENOXAPARIN SODIUM 40 MG/0.4 ML DISP.SYRIN SQ SCH (20:46)
[2019-03-29] VITALS (94 sets, daily range): BP systolic 87–126; BP diastolic 38–82
[2019-03-29] MEDS: ALBUTEROL SULFATE 2.5 MG/3 ML NEBU IH SCH ×6 (03:03→23:14)
[2019-03-29] MEDS: IPRATROPIUM BROMIDE 0.5 MG/2.5 ML NEBU NEB SCH ×6 (03:03→23:14)
--- NOTE | 2019-03-29 04:30 | NUR ---
Am care done; patient posturing during care and stimulation. Skin care provided. R earlobe protected with Mepilex; patient turns head to R side most of the time. L scalp area remains very sunken. Addendum: 03/29/19 at 0624 by OTF SILVA RN Amended: Links added. Addendum: 03/29/19 at 0627 by OTF SILVA RN Amended: Links added.
[2019-03-29 04:43] LABS: BASOPHILS % (AUTO) 0.9 % (0.0-2.0); EOSINOPHILS # (AUTO) 0.3 K/uL (0.0-0.7); EOSINOPHILS % (AUTO) 7.9 % (0.0-7.0); HEMATOCRIT 26.9 % (31.2-41.9); HEMOGLOBIN 9.3 g/dL (10.9-14.3); LYMPHOCYTES # (AUTO) 0.9 K/uL (20.0-40.0); LYMPHOCYTES % (AUTO) 21.9 % (20.5-51.5); MEAN CORPUSCULAR HEMOGLOBIN 33.2 uug (24.7-32.8); MEAN CORPUSCULAR HGB CONC 35 g/dL (32.3-35.6); MEAN CORPUSCULAR VOLUME 95.4 fL (75.5-95.3); MONOCYTES # (AUTO) 0.4 K/uL (2.0-10.0); MONOCYTES % (AUTO) 9.1 % (0.0-11.0); NEUTROPHILS # (AUTO) 2.5 K/uL (1.8-8.9); NEUTROPHILS % (AUTO) 60.2 % (38.5-71.5); PLATELET COUNT (AUTO) 210 K/uL (179-408); RED BLOOD CELL COUNT(AUTO) 2.82 MIL/uL (3.63-4.92); WHITE BLOOD COUNT (AUTO) 4.2 K/uL (3.8-11.8)
[2019-03-29 05:05] LABS: CARBON DIOXIDE 26 mmol/L (21-32); CHLORIDE 114 mmol/L (98-107); CREATININE 0.5 mg/dL (0.6-1.3); GLUCOSE 128 mg/dL (74-106); MAGNESIUM 1.9 mg/dL (1.8-2.4); PHOSPHOROUS 3.8 mg/dL (2.5-4.9); POTASSIUM 3.5 mmol/L (3.5-5.1); UREA NITROGEN, BLOOD 16 mg/dL (7-18)
[2019-03-29] MEDS: BACLOFEN 20 MG TABLET GT SCH ×3 (05:39→22:45)
[2019-03-29] MEDS: IV NORMAL SALINE 250 ML IV PRN (05:39)
[2019-03-29] MEDS: ESOMEPRAZOLE MAGNESIUM 40 MG SUSPDR.PKT GT SCH (05:39)
[2019-03-29] MEDS: PHENYTOIN 100 MG/4 ML UDC GT SCH ×3 (05:40→21:16)
[2019-03-29] MEDS: Z GUARD REMEDY PASTE 57 GM TUBE TOP PRN (05:41)
--- NOTE | 2019-03-29 06:26 | NUR ---
No seizures the entire shift. Stable on current vent settings. Tolerating Gt feedings fairly well; off 0600 and will be resumed at 1000. With large amount of urine Q2H. Addendum: 03/29/19 at 0627 by OTF SILVA RN Amended: Links added.
--- NOTE | 2019-03-29 08:06 | NUR ---
report received from Jose Alfredo, 34 yr old female was admitted from Sub acute Unit on 03/16/19 for hydrocephalus. s/p INTEGRATION DEVELOPER SHUNT placement on 03/17/19 and was having seizures and on 03/20/19 had a shunt tap. at present, no seizures noted. patient is tracheally intubated to vent simv 12, fio2 500, psv 10 peep 5 and fio2 28%. Has a gastrostomy tube for fdg. is receiving vital af 1.2 at 55ml/hr. bhatt catheter intact. urine has sediments.and large amount.. on first step select air mattress and dvt pumps. ekg is sinus rhythm, afebrile.levophed resumed since 1030 am 03/28/19. lab tests were noted. na 150 cl 114. Addendum: 03/29/19 at 0807 by HUSSEIN CHRISTOPHER RN Amended: Links added.
[2019-03-29] MEDS: ACIDOPHILUS/BULGARICUS CHEW TAB GT SCH ×2 (08:13→20:19)
[2019-03-29] MEDS: LEVETIRACETAM 500 MG/5 ML LIQUID UDC NG SCH ×2 (08:13→20:17)
[2019-03-29] MEDS: COD LIVER OIL/ZINC OXIDE OINT 113 GM TUBE TP SCH ×2 (08:14→20:23)
[2019-03-29] MEDS: MIDODRINE HCL 5 MG TABLET PO SCH ×2 (08:14→20:22)
[2019-03-29] MEDS: HYDROGEN PEROXIDE 3% 118 ML BOTTLE TP SCH ×2 (08:14→20:23)
[2019-03-29] MEDS: PROTEIN SUPPLEMENT (PROSTAT) 30 ML LIQUID PO SCH ×2 (08:15→17:15)
--- NOTE | 2019-03-29 08:58 | NUR ---
seen by Dr Wagner with new orders Addendum: 03/29/19 at 0858 by HUSSEIN CHRISTOPHER RN Amended: Links added.
[2019-03-29] MEDS: VITAL AF 1.2 1,000 ML LIQUID GT PRN (09:08)
--- NOTE | 2019-03-29 10:00 | NUR ---
seen by dr kerzuma. mitchell aware of high na and high chloride and increased urine output/ no new orders Addendum: 03/29/19 at 1526 by HUSSEIN CHRISTOPHER RN Amended: Links added.
--- NOTE | 2019-03-29 14:30 | NUR ---
seen by Kuldeep Mejias. elena new orders Addendum: 03/29/19 at 1522 by HUSSEIN CHRISTOPHER RN Amended: Links added.
--- NOTE | 2019-03-29 17:00 | NUR ---
call to [facility] re elevated serum sodium of 150, increased urine output over 24 hrs 5700ml total. and chloride 114.message left to the exchange and was told dr Meyer will call back Addendum: 03/29/19 at 1700 by HUSSEIN CHRISTOPHER RN Amended: Links added.
--- NOTE | 2019-03-29 17:45 | NUR ---
talked to Dr Trent kong's condition. awaiting for new orders Addendum: 03/29/19 at 1834 by HUSSEIN CHRISTOPHER RN Amended: Links added.
[2019-03-29] MEDS: NOREPINEPHRINE BITARTRATE 8 MG in IV DEXTROSE 5% 500 ML IV PRN (17:46)
[2019-03-29] MEDS: LEVOFLOXACIN 500 MG TABLET GT SCH (18:35)
--- NOTE | 2019-03-29 19:27 | NUR ---
PT RECEIVED ON A CARBAJAL VENT WITH THE FOLLOWING SETTINGS THAT ARE CHARTED ON THE MECHANICAL VENT NOTES. TRACH TUBE IS PATENT AND SECURED WITH TRACH TIES. HME CHANGED. HHN TX GIVEN PER MD ORDER'S AND WAS TOLERATED WELL W/ NO ADVERSE REACTIONS. SUCTIONED SMALL AMOUNTS OF THIN YELLOW SECRETIONS. TRACH CARE WILL BE DONE LATER. VENT ALARMS ARE ON AND AUDIBLE. VENT IS PLUGGED IN THE RED OUTLET. BACK UP TRACH AND AMBU BAG IS BY BEDSIDE. PT IS TOLERATING CURRENT VENT SETTINGS WELL AT THIS TIME WITH NO SOB NOTED.
--- NOTE | 2019-03-29 19:40 | NUR ---
Received pt eyes closed, withdraws to pain. Cough reflex present. Pt tolerating current vent settings SIMV 12, PS 10, TV 500, PEEP 5, Fio2 28%. O2 sats up to 100%. No acute distress noted. KILEY PICC line running LEVOPHED at 0.5 mcg/min. VSS, afebrile. EKG rhythm SR with HR 75, RR 12, Temp 98.1. Pt turned and repositioned. Aspiration and seizure precautions noted. No seizures at this time. See notes and interventions for more data. Will continue to monitor.
--- NOTE | 2019-03-29 19:50 | NUR ---
ID specialist, CHA DAVIS, came to see and evaluate pt. Report given. See order history.
--- NOTE | 2019-03-29 20:15 | NUR ---
Inserted Clarke catheter FR 16 aseptically. Urine color cloudy, yellow. Pt tolerated procedure well. Continue plan of care.
[2019-03-29] MEDS: CHOLECALCIFEROL 1,000 UNIT TABLET GT SCH (20:17)
[2019-03-29] MEDS: FOLIC ACID 1 MG TABLET GT SCH (20:19)
[2019-03-29] MEDS: THIAMINE HCL 100 MG TABLET GT SCH (20:19)
[2019-03-29] MEDS: ENOXAPARIN SODIUM 40 MG/0.4 ML DISP.SYRIN SQ SCH (20:21)
[2019-03-29] MEDS: POLYVINYL ALCOHOL OPHT DROPS 15 ML BOTTLE EACHEYE PRN (20:23)
[2019-03-29] MEDS: MAGNESIUM HYDROXIDE 30 ML LIQUID UDC PO PRN (21:16)
[2019-03-29] MEDS ORDERED: BACLOFEN 10 MG TABLET ONE (22:12)
[2019-03-29] MEDS ORDERED: DESMOPRESSIN 0.1 MG TABLET PO ONE (22:30)
[2019-03-29] MEDS ORDERED: BACLOFEN 20 MG TABLET ONE (22:59)
--- NOTE | 2019-03-29 23:00 | NUR ---
Medication (BACLOFEN 30 mg tablet PO) received from Speedometer Mechanic. Given at 2300. Continue with plan of care.
[2019-03-29] MEDS ORDERED: DESMOPRESSIN 0.1 MG TABLET ONE (23:03)
[2019-03-30] VITALS (87 sets, daily range): BP systolic 76–125; BP diastolic 37–78
[2019-03-30] MEDS: IPRATROPIUM BROMIDE 0.5 MG/2.5 ML NEBU NEB SCH ×6 (02:50→22:50)
[2019-03-30] MEDS: ALBUTEROL SULFATE 2.5 MG/3 ML NEBU IH SCH ×6 (02:50→22:50)
[2019-03-30] MEDS: BISACODYL 10 MG SUPP.RECT RC PRN (03:59)
[2019-03-30 05:06] LABS: BASOPHILS # (AUTO) 0.1 K/uL (0.0-8.0); BASOPHILS % (AUTO) 0.5 % (0.0-2.0); EOSINOPHILS # (AUTO) 0.4 K/uL (0.0-0.7); EOSINOPHILS % (AUTO) 4.3 % (0.0-7.0); HEMATOCRIT 25.9 % (31.2-41.9); LYMPHOCYTES # (AUTO) 1.3 K/uL (20.0-40.0); LYMPHOCYTES % (AUTO) 12.7 % (20.5-51.5); MEAN CORPUSCULAR HEMOGLOBIN 33.2 uug (24.7-32.8); MEAN CORPUSCULAR HGB CONC 35 g/dL (32.3-35.6); MEAN CORPUSCULAR VOLUME 95.7 fL (75.5-95.3); MONOCYTES # (AUTO) 0.5 K/uL (2.0-10.0); MONOCYTES % (AUTO) 5.2 % (0.0-11.0); NEUTROPHILS # (AUTO) 7.9 K/uL (1.8-8.9); NEUTROPHILS % (AUTO) 77.3 % (38.5-71.5); PLATELET COUNT (AUTO) 204 K/uL (179-408); RED BLOOD CELL COUNT(AUTO) 2.71 MIL/uL (3.63-4.92); WHITE BLOOD COUNT (AUTO) 10.2 K/uL (3.8-11.8)
[2019-03-30] MEDS: ESOMEPRAZOLE MAGNESIUM 40 MG SUSPDR.PKT GT SCH (05:11)
[2019-03-30] MEDS: BACLOFEN 20 MG TABLET GT SCH ×3 (05:11→21:55)
[2019-03-30] MEDS: PHENYTOIN 100 MG/4 ML UDC GT SCH ×3 (05:12→21:56)
[2019-03-30 05:18] LABS: CARBON DIOXIDE 27 mmol/L (21-32); CHLORIDE 111 mmol/L (98-107); CREATININE 0.4 mg/dL (0.6-1.3); GLUCOSE 118 mg/dL (74-106); MAGNESIUM 1.9 mg/dL (1.8-2.4); PHOSPHOROUS 3.4 mg/dL (2.5-4.9); POTASSIUM 3.3 mmol/L (3.5-5.1); UREA NITROGEN, BLOOD 23 mg/dL (7-18)
--- NOTE | 2019-03-30 05:41 | NUR ---
AM care provided. Oral care and trach care done. Minimal white and metcalf secretions noted. Pt turned and repositioned, heels offloaded. Aspiration and seizure precautions maintained at all times. No seizures noted during shift. VSS, afebrile. Continue with plan of care.
[2019-03-30] MEDS: IV NORMAL SALINE 250 ML IV PRN (06:03)
[2019-03-30] MEDS: LEVETIRACETAM 500 MG/5 ML LIQUID UDC NG SCH ×2 (07:38→19:48)
--- NOTE | 2019-03-30 08:30 | NUR ---
PT. WAS SEEN BY UPDATED WITH PT.CONDITION AND PLAN OF CARE.
[2019-03-30] MEDS: ACIDOPHILUS/BULGARICUS CHEW TAB GT SCH ×2 (08:38→21:07)
[2019-03-30] MEDS: DESMOPRESSIN 0.1 MG TABLET PO SCH ×2 (08:39→21:09)
[2019-03-30] MEDS: MIDODRINE HCL 5 MG TABLET PO SCH ×3 (08:40→21:55)
[2019-03-30] MEDS: PROTEIN SUPPLEMENT (PROSTAT) 30 ML LIQUID PO SCH ×2 (08:41→17:02)
[2019-03-30] MEDS: COD LIVER OIL/ZINC OXIDE OINT 113 GM TUBE TP SCH ×2 (08:42→21:08)
[2019-03-30] MEDS: HYDROGEN PEROXIDE 3% 118 ML BOTTLE TP SCH ×2 (08:43→21:08)
[2019-03-30] MEDS: POTASSIUM CHLORIDE 20 MEQ POWDER PACKET GT SCH ×2 (08:44→17:01)
--- NOTE | 2019-03-30 09:20 | NUR ---
PT. WAS SEEN BY SHERINE CORRALES DO UPDATED WITH PT.CONDITION AND PLAN OF CARE.
[2019-03-30] MEDS: VITAL AF 1.2 1,000 ML LIQUID GT PRN (09:55)
--- NOTE | 2019-03-30 11:22 | NUR ---
PT. WAS SEEN BY LORRI JACOBS UPDATED WITH PT.CONDITION AND PLAN OF CARE.
--- NOTE | 2019-03-30 18:30 | NUR ---
No changes in pt.condition.Pt.was seen by DOT NET DEVELOPER:Lia with new orders.
--- NOTE | 2019-03-30 19:30 | NUR ---
Report received. Patient semicomatose, with trache to vent settings XG=754 ml, SIMV=12, FIO2=28%, PEEP 5 cm, and PS=10. Sat 99-100%. With posturing to pain such as suctioning and turning. L scalp area very sunken; S/P PURCHASING OFFICER shunt placement 03/17/2019. BPs in the 80's systole. Levophed drip restarted at 1 mcg/min; See IV spread sheet for rates/dosages. Assessment completed. Addendum: 03/31/19 at 0301 by OTF SILVA RN Amended: Links added. Addendum: 03/31/19 at 0303 by OTF SILVA RN Amended: Links added.
[2019-03-30] MEDS: LEVOFLOXACIN 500 MG TABLET GT SCH (19:48)
[2019-03-30] MEDS: FOLIC ACID 1 MG TABLET GT SCH (21:07)
[2019-03-30] MEDS: CHOLECALCIFEROL 1,000 UNIT TABLET GT SCH (21:09)
[2019-03-30] MEDS: THIAMINE HCL 100 MG TABLET GT SCH (21:09)
[2019-03-30] MEDS: ENOXAPARIN SODIUM 40 MG/0.4 ML DISP.SYRIN SQ SCH (21:11)
[2019-03-30] MEDS: POLYVINYL ALCOHOL OPHT DROPS 15 ML BOTTLE EACHEYE PRN (21:12)
[2019-03-30] MEDS: Z GUARD REMEDY PASTE 57 GM TUBE TOP PRN (21:12)
[2019-03-30] MEDS: NOREPINEPHRINE BITARTRATE 8 MG in IV DEXTROSE 5% 500 ML IV PRN (21:23)
[2019-03-31] VITALS (63 sets, daily range): BP systolic 82–125; BP diastolic 42–79
--- NOTE | 2019-03-31 00:30 | NUR ---
Turned and repositioned Q2H but no turning to L side as per MD. HOB elevated above 30 degrees at all times. Tolerating GT feedings well.; no residual. Levophed drip dc'd; will continue to monitor BPs closely. Addendum: 03/31/19 at 0303 by OTF SILVA RN Amended: Links added.
[2019-03-31] MEDS: ALBUTEROL SULFATE 2.5 MG/3 ML NEBU IH SCH ×6 (02:30→23:39)
[2019-03-31] MEDS: IPRATROPIUM BROMIDE 0.5 MG/2.5 ML NEBU NEB SCH ×6 (02:30→23:38)
[2019-03-31] MEDS: IV NORMAL SALINE 250 ML IV PRN (04:16)
[2019-03-31 05:12] LABS: BASOPHILS % (AUTO) 0.3 % (0.0-2.0); EOSINOPHILS # (AUTO) 0.4 K/uL (0.0-0.7); EOSINOPHILS % (AUTO) 8.9 % (0.0-7.0); HEMATOCRIT 23.4 % (31.2-41.9); HEMOGLOBIN 8.1 g/dL (10.9-14.3); LYMPHOCYTES # (AUTO) 0.8 K/uL (20.0-40.0); LYMPHOCYTES % (AUTO) 17.3 % (20.5-51.5); MEAN CORPUSCULAR HEMOGLOBIN 33.4 uug (24.7-32.8); MEAN CORPUSCULAR HGB CONC 35 g/dL (32.3-35.6); MEAN CORPUSCULAR VOLUME 96.1 fL (75.5-95.3); MONOCYTES # (AUTO) 0.3 K/uL (2.0-10.0); MONOCYTES % (AUTO) 5.7 % (0.0-11.0); NEUTROPHILS # (AUTO) 3.1 K/uL (1.8-8.9); NEUTROPHILS % (AUTO) 67.8 % (38.5-71.5); PLATELET COUNT (AUTO) 158 K/uL (179-408); WHITE BLOOD COUNT (AUTO) 4.6 K/uL (3.8-11.8)
[2019-03-31 05:23] LABS: CARBON DIOXIDE 25 mmol/L (21-32); CHLORIDE 108 mmol/L (98-107); CREATININE 0.4 mg/dL (0.6-1.3); GLUCOSE 94 mg/dL (74-106); MAGNESIUM 1.6 mg/dL (1.8-2.4); PHOSPHOROUS 3.5 mg/dL (2.5-4.9); POTASSIUM 3.9 mmol/L (3.5-5.1); UREA NITROGEN, BLOOD 16 mg/dL (7-18)
[2019-03-31 05:28] LABS: RED BLOOD CELL COUNT(AUTO) 2.44 MIL/uL (3.63-4.92)
[2019-03-31] MEDS: ESOMEPRAZOLE MAGNESIUM 40 MG SUSPDR.PKT GT SCH (05:39)
[2019-03-31] MEDS: BACLOFEN 20 MG TABLET GT SCH ×3 (05:39→22:10)
[2019-03-31] MEDS: PHENYTOIN 100 MG/4 ML UDC GT SCH ×2 (05:39→14:30)
--- NOTE | 2019-03-31 06:57 | NUR ---
BPs in the 90's systole, Levophed drip off since 0030. O2 saturations maintaining 97-100% on the same vent settings. Tolerated GT feedings off 0600, will be resumed at 1000. No neuro changes; still posturing with head turning to R side during care. L scalp area remains very sunken.
[2019-03-31] MEDS: MIDODRINE HCL 5 MG TABLET PO SCH (07:06)
[2019-03-31] MEDS: DESMOPRESSIN 0.1 MG TABLET PO SCH ×2 (08:00→20:35)
[2019-03-31] MEDS: ACIDOPHILUS/BULGARICUS CHEW TAB GT SCH ×2 (08:00→20:35)
[2019-03-31] MEDS: COD LIVER OIL/ZINC OXIDE OINT 113 GM TUBE TP SCH ×2 (08:00→20:39)
[2019-03-31] MEDS: LEVETIRACETAM 500 MG/5 ML LIQUID UDC NG SCH ×2 (08:00→19:34)
[2019-03-31] MEDS: PROTEIN SUPPLEMENT (PROSTAT) 30 ML LIQUID PO SCH ×2 (08:00→17:51)
[2019-03-31] MEDS: HYDROGEN PEROXIDE 3% 118 ML BOTTLE TP SCH ×2 (08:01→20:39)
--- NOTE | 2019-03-31 08:30 | NUR ---
Pulmonary services, Dr. Wagner in the unit to see and examine pt. report given see order hx.
[2019-03-31] MEDS: MAGNESIUM SULFATE/D5W 100 ML IV SCH ×2 (08:45→10:31)
--- NOTE | 2019-03-31 09:15 | NUR ---
Attending physician Dr. Bonnie Barba in the unit to examine patient report given aware of patient's need for levophed drip and recommendations from Dr. Wagner to increase Midodrain, via G-tube. As stated "she'll follow up."
[2019-03-31] MEDS ORDERED: MAGNESIUM HYDROXIDE 30 ML LIQUID UDC GT PRN (10:01)
[2019-03-31] MEDS: VITAL AF 1.2 1,000 ML LIQUID GT PRN (10:05)
[2019-03-31] MEDS: MIDODRINE HCL 5 MG TABLET GT SCH ×2 (12:30→17:51)
--- NOTE | 2019-03-31 15:03 | NUR ---
Spoke with Dr. Barba and orders to start pt. on Dopamine and titrate to maintain SBP of 100. Once desire sbp achieved change dopamine to fix rate and transfer pt. to SKYLER status. director medical safety in the unit when orders received.
[2019-03-31] MEDS ORDERED: DOPamine IV DRIP 800 MG/250ML 250 ML IV PRN (15:15)
[2019-03-31] MEDS ORDERED: DOPamine IV DRIP 400 MG/250ML 250 ML IV PRN (16:00)
--- NOTE | 2019-03-31 16:28 | NUR ---
At this time Dr. Bonnie Matute called to be notified of contraindication of dopamine drip administration, as informed by pharmacist Keisha, cross reaction between dopamine and dilantin. As stated by pharmacist both medications can cause severe hypotension, and cardiac arrest. Patient on a daily dose of dilantin. Awaiting call back.
[2019-03-31] MEDS ORDERED: NOREPINEPHRINE BITARTRATE 16 MG in IV DEXTROSE 5% 500 ML IV PRN (16:45)
--- NOTE | 2019-03-31 16:49 | NUR ---
A call back from attending physician Dr. Barba orders to dcd dopamine due to contraindication per pharmacy resume levophed for sbp below 90 if needed it. No orders to down-grade pt. to SKYLER received. Addendum: 03/31/19 at 1652 by ANA HILL RN As stated will follow up with pt. tomorrow.
--- NOTE | 2019-03-31 17:19 | NUR ---
A call to Dr. Spaulding neurologist to informed him of pt's episode of seizure. Orders received see orders hx.
--- NOTE | 2019-03-31 18:51 | NUR ---
A call to neurologist Dr. Spaulding to informed critical dilantin level of 33.4. Orders to hold tonight's dose and change dosing to Dilantin to 200mg Q12hrs.
--- NOTE | 2019-03-31 20:00 | NUR ---
RECEIVED PT SEMICOMATOSE. TRACH TO VENT W/ SETTINGS OF SIMV-12, TV-500, FIO2-28%, PEEP-+5, PSV10, W/ O2 SAT OF 100%.ON G-TUBE FDG. OF VITAL AF 1.2 @ 55 CC/HR., NO RESIDUAL NOTED. PICC LINE ON KILEY INTACT & ALL PORTS ARE PATENT. NS @ 10 CC/HR FOR IVPB. REPOSITIONED PT ON HER R SIDE W/ HOB ELEVATED. SUCTIONED VIA TRACH W/ MINIMAL THICK TANNISH MUCOUS.
[2019-03-31] MEDS: CHOLECALCIFEROL 1,000 UNIT TABLET GT SCH (20:34)
[2019-03-31] MEDS: FOLIC ACID 1 MG TABLET GT SCH (20:35)
[2019-03-31] MEDS: THIAMINE HCL 100 MG TABLET GT SCH (20:38)
[2019-03-31] MEDS: ENOXAPARIN SODIUM 40 MG/0.4 ML DISP.SYRIN SQ SCH (20:41)
--- NOTE | 2019-03-31 22:12 | NUR ---
RESTATED LEVOPHED DRIP @ 1MCG/MIN FOR LOW BP.
--- NOTE | 2019-03-31 23:40 | NUR ---
PT ON CONT CARBAJAL VENT WITH SHILEY # [address] AND SECURED , WITH SAME CURRENT VENT SETTINGS, SIMV 12, VT 500ML, PEEP 5, PSV 10 , 28%, PT DOES ASSIST AT TIMES, GOOD COUGH EFFORT, SUCTIONED LIGHT PALE YELL TINGE SECRETIONS, TRACH CARE DONE, ALL VENT ALARMS GOOD, NO VENT CHANGES MADE, NEB INLINE Q4 HOURS WITH ALBUTEROL/ ATROVENT TOLL WELL, PT STABLE, SAT 100%, AMBU BAG AT BEDSIDE.Neel WALLSP Addendum: 03/31/19 at 2343 by BESS PACHECO RT Amended: Links added.
[2019-04-01] VITALS (51 sets, daily range): BP systolic 85–136; BP diastolic 49–93
[2019-04-01] MEDS: IPRATROPIUM BROMIDE 0.5 MG/2.5 ML NEBU NEB SCH ×6 (03:42→23:28)
[2019-04-01] MEDS: ALBUTEROL SULFATE 2.5 MG/3 ML NEBU IH SCH ×6 (03:42→23:28)
--- NOTE | 2019-04-01 04:00 | NUR ---
AM CARE DONE. TRACH CARE DONE. CLEANED G-TUBE SITE & DRSG. APPLIED. REPOSITIONED ON HER BACK W/ HOB ELEVATED.
[2019-04-01 05:21] LABS: BASOPHILS % (AUTO) 0.3 % (0.0-2.0); EOSINOPHILS # (AUTO) 0.5 K/uL (0.0-0.7); EOSINOPHILS % (AUTO) 10.6 % (0.0-7.0); HEMATOCRIT 25.4 % (31.2-41.9); HEMOGLOBIN 8.8 g/dL (10.9-14.3); LYMPHOCYTES # (AUTO) 0.7 K/uL (20.0-40.0); LYMPHOCYTES % (AUTO) 14.3 % (20.5-51.5); MEAN CORPUSCULAR HEMOGLOBIN 32.7 uug (24.7-32.8); MEAN CORPUSCULAR HGB CONC 35 g/dL (32.3-35.6); MEAN CORPUSCULAR VOLUME 94.8 fL (75.5-95.3); MONOCYTES # (AUTO) 0.4 K/uL (2.0-10.0); MONOCYTES % (AUTO) 7.8 % (0.0-11.0); PLATELET COUNT (AUTO) 192 K/uL (179-408); RED BLOOD CELL COUNT(AUTO) 2.68 MIL/uL (3.63-4.92); WHITE BLOOD COUNT (AUTO) 4.5 K/uL (3.8-11.8)
[2019-04-01 05:25] LABS: CARBON DIOXIDE 27 mmol/L (21-32); CHLORIDE 101 mmol/L (98-107); CREATININE 0.2 mg/dL (0.6-1.3); GLUCOSE 108 mg/dL (74-106); MAGNESIUM 1.6 mg/dL (1.8-2.4); PHOSPHOROUS 2.9 mg/dL (2.5-4.9); POTASSIUM 3.9 mmol/L (3.5-5.1); UREA NITROGEN, BLOOD 16 mg/dL (7-18)
[2019-04-01] MEDS: BACLOFEN 20 MG TABLET GT SCH ×3 (05:38→22:23)
[2019-04-01] MEDS: ESOMEPRAZOLE MAGNESIUM 40 MG SUSPDR.PKT GT SCH (05:39)
[2019-04-01] MEDS: IV NORMAL SALINE 250 ML IV PRN (05:45)
--- NOTE | 2019-04-01 06:00 | NUR ---
OFF TUBE FDG WILL RESUME @ 1000.
--- NOTE | 2019-04-01 07:45 | NUR ---
Pulmonary services Dr. Wagner in the unit to see and examine patient, full report given, orders received and carried it.
[2019-04-01] MEDS: LEVETIRACETAM 500 MG/5 ML LIQUID UDC NG SCH ×2 (08:03→20:33)
[2019-04-01] MEDS: PROTEIN SUPPLEMENT (PROSTAT) 30 ML LIQUID PO SCH ×2 (08:04→16:12)
[2019-04-01] MEDS: ACIDOPHILUS/BULGARICUS CHEW TAB GT SCH ×2 (08:04→22:16)
[2019-04-01] MEDS: PHENYTOIN 100 MG/4 ML UDC GT SCH ×2 (08:04→22:18)
[2019-04-01] MEDS: MIDODRINE HCL 5 MG TABLET GT SCH ×3 (08:05→16:11)
[2019-04-01] MEDS: DESMOPRESSIN 0.1 MG TABLET PO SCH ×2 (08:07→22:21)
[2019-04-01] MEDS: HYDROGEN PEROXIDE 3% 118 ML BOTTLE TP SCH ×2 (08:08→22:25)
[2019-04-01] MEDS: COD LIVER OIL/ZINC OXIDE OINT 113 GM TUBE TP SCH ×2 (08:08→22:25)
[2019-04-01] MEDS: MAGNESIUM SULFATE/D5W 100 ML IV SCH ×2 (08:20→10:17)
--- NOTE | 2019-04-01 09:13 | NUR ---
Attending physician Dr. Bonnie cohn he unit to examine patients. Addendum: 04/01/19 at 1748 by ANA HILL RN Orders to down-grade pt. to SKYLER if sbp remains stable.
[2019-04-01] MEDS: VITAL AF 1.2 1,000 ML LIQUID GT PRN (10:18)
--- NOTE | 2019-04-01 13:00 | NUR ---
Neprhology services, Dr. Lee in the unit to see patient, orders to change free H20 to 200 TID received and implemented.
--- NOTE | 2019-04-01 19:14 | NUR ---
PT RECEIVED TRACH TO VENT ON A CARBAJAL VENT, YUAN #6 TRACH IS PATENT AND SECURE. PT IS ON A CARBAJAL VENT ON SETTINGS OF SIMV 12, VT 500, PS 10, PEEP +5, FIO2 28%. VENT PARAMETERS AND ALARMS CHECKED, ALARMS ARE AUDIBLE. IN-LINE TX TOLERATED WELL, NO ADVERSE REACTION NOTED. PT IS TOLERATING VENT WELL, NO SOB NOTED. BVM AND BACK-UP TRACH AT BEDSIDE, VENT PLUGGED INTO RED OUTLET. SUCTION PRN. WILL CONTINUE TO MONITOR.
[2019-04-01] MEDS: ENOXAPARIN SODIUM 40 MG/0.4 ML DISP.SYRIN SQ SCH (22:15)
[2019-04-01] MEDS: FOLIC ACID 1 MG TABLET GT SCH (22:16)
[2019-04-01] MEDS: THIAMINE HCL 100 MG TABLET GT SCH (22:16)
[2019-04-01] MEDS: CHOLECALCIFEROL 1,000 UNIT TABLET GT SCH (22:21)
[2019-04-02] VITALS (11 sets, daily range): BP systolic 100–143; BP diastolic 53–81
[2019-04-02] MEDS: IPRATROPIUM BROMIDE 0.5 MG/2.5 ML NEBU NEB SCH ×6 (02:43→22:53)
[2019-04-02] MEDS: ALBUTEROL SULFATE 2.5 MG/3 ML NEBU IH SCH ×6 (02:43→22:53)
[2019-04-02] MEDS: ESOMEPRAZOLE MAGNESIUM 40 MG SUSPDR.PKT GT SCH (05:31)
[2019-04-02 05:32] LABS: BASOPHILS % (AUTO) 0.3 % (0.0-2.0); EOSINOPHILS # (AUTO) 0.3 K/uL (0.0-0.7); EOSINOPHILS % (AUTO) 9.5 % (0.0-7.0); HEMATOCRIT 24.2 % (31.2-41.9); HEMOGLOBIN 8.6 g/dL (10.9-14.3); LYMPHOCYTES # (AUTO) 0.6 K/uL (20.0-40.0); LYMPHOCYTES % (AUTO) 18.1 % (20.5-51.5); MEAN CORPUSCULAR HEMOGLOBIN 33.2 uug (24.7-32.8); MEAN CORPUSCULAR HGB CONC 36 g/dL (32.3-35.6); MEAN CORPUSCULAR VOLUME 93.4 fL (75.5-95.3); MONOCYTES # (AUTO) 0.3 K/uL (2.0-10.0); MONOCYTES % (AUTO) 8.3 % (0.0-11.0); NEUTROPHILS # (AUTO) 2.2 K/uL (1.8-8.9); NEUTROPHILS % (AUTO) 63.8 % (38.5-71.5); PLATELET COUNT (AUTO) 175 K/uL (179-408); RED BLOOD CELL COUNT(AUTO) 2.59 MIL/uL (3.63-4.92); WHITE BLOOD COUNT (AUTO) 3.4 K/uL (3.8-11.8)
[2019-04-02] MEDS: BACLOFEN 20 MG TABLET GT SCH ×3 (05:32→22:22)
[2019-04-02 05:48] LABS: CARBON DIOXIDE 25 mmol/L (21-32); CHLORIDE 96 mmol/L (98-107); CREATININE 0.3 mg/dL (0.6-1.3); GLUCOSE 98 mg/dL (74-106); MAGNESIUM 1.7 mg/dL (1.8-2.4); PHOSPHOROUS 3.6 mg/dL (2.5-4.9); POTASSIUM 3.4 mmol/L (3.5-5.1); UREA NITROGEN, BLOOD 16 mg/dL (7-18)
--- NOTE | 2019-04-02 08:29 | NUR ---
PT TRANSFERRED TO SKYLER. PT REMAINS ON SAME VENT SETTINGS OF SIMV12/VT500/PSV10/28%/+5 PEEP. PT APPEARS COMFORTABLE WITHOUT DISTRESS. CONTINUOS PULSE OX BY BEDSIDE. WILL CONTINUE TO MONITOR
[2019-04-02] MEDS: ACIDOPHILUS/BULGARICUS CHEW TAB GT SCH ×2 (08:52→20:21)
[2019-04-02] MEDS: PHENYTOIN 100 MG/4 ML UDC GT SCH ×2 (08:52→20:39)
[2019-04-02] MEDS: LEVETIRACETAM 500 MG/5 ML LIQUID UDC NG SCH ×2 (08:52→20:21)
[2019-04-02] MEDS: MIDODRINE HCL 5 MG TABLET GT SCH ×3 (08:53→17:12)
[2019-04-02] MEDS: DESMOPRESSIN 0.1 MG TABLET PO SCH (08:54)
[2019-04-02] MEDS: HYDROGEN PEROXIDE 3% 118 ML BOTTLE TP SCH ×2 (08:57→20:22)
[2019-04-02] MEDS: COD LIVER OIL/ZINC OXIDE OINT 113 GM TUBE TP SCH ×2 (08:57→20:22)
[2019-04-02] MEDS: PROTEIN SUPPLEMENT (PROSTAT) 30 ML LIQUID PO SCH ×2 (09:02→17:13)
--- NOTE | 2019-04-02 10:00 | NUR ---
Trach care, oral care, G-tube care performed on patient. Positioned comfortably on the right side. Safety precautions in place. Bed locked in lowest position with 2 side rails up. No acute change in patient condition. No respiratory distress noted.
[2019-04-02] MEDS: VITAL AF 1.2 1,000 ML LIQUID GT PRN (11:32)
--- NOTE | 2019-04-02 14:00 | NUR ---
Oral care performed on patient and repositioned comfortably.
[2019-04-02] MEDS ORDERED: POTASSIUM CHLORIDE 20 MEQ POWDER PACKET GT ONE (15:15)
[2019-04-02] MEDS: MAGNESIUM SULFATE/D5W 100 ML IV SCH ×2 (15:55→17:12)
--- NOTE | 2019-04-02 18:44 | NUR ---
Patient has no acute change in condition at the moment. Routines/ orders carried out and pt. tolerated medications. Vital signs are WNL. Sinus rhythm on monitor. No distress exhibited in patient. Administered mag and potassium supplement as per doctor's order, due to low potassium and low magnesium level. Safety precautions in place. Bed locked and lowest position.
[2019-04-02] MEDS: CHOLECALCIFEROL 1,000 UNIT TABLET GT SCH (20:21)
[2019-04-02] MEDS: THIAMINE HCL 100 MG TABLET GT SCH (20:21)
[2019-04-02] MEDS: FOLIC ACID 1 MG TABLET GT SCH (20:23)
[2019-04-02] MEDS: ENOXAPARIN SODIUM 40 MG/0.4 ML DISP.SYRIN SQ SCH (20:24)
[2019-04-03] VITALS (7 sets, daily range): BP systolic 90–144; BP diastolic 50–86
[2019-04-03] MEDS: ALBUTEROL SULFATE 2.5 MG/3 ML NEBU IH SCH ×6 (02:52→23:56)
[2019-04-03] MEDS: IPRATROPIUM BROMIDE 0.5 MG/2.5 ML NEBU NEB SCH ×6 (02:52→23:56)
[2019-04-03] MEDS: BACLOFEN 20 MG TABLET GT SCH ×3 (05:01→21:29)
[2019-04-03] MEDS: ESOMEPRAZOLE MAGNESIUM 40 MG SUSPDR.PKT GT SCH (05:02)
[2019-04-03 06:36] LABS: BASOPHILS % (AUTO) 0.3 % (0.0-2.0); EOSINOPHILS # (AUTO) 0.3 K/uL (0.0-0.7); EOSINOPHILS % (AUTO) 8.3 % (0.0-7.0); HEMATOCRIT 25.8 % (31.2-41.9); LYMPHOCYTES # (AUTO) 0.5 K/uL (20.0-40.0); LYMPHOCYTES % (AUTO) 14.5 % (20.5-51.5); MEAN CORPUSCULAR HEMOGLOBIN 31.9 uug (24.7-32.8); MEAN CORPUSCULAR HGB CONC 35 g/dL (32.3-35.6); MONOCYTES # (AUTO) 0.3 K/uL (2.0-10.0); MONOCYTES % (AUTO) 8.4 % (0.0-11.0); NEUTROPHILS # (AUTO) 2.3 K/uL (1.8-8.9); NEUTROPHILS % (AUTO) 68.5 % (38.5-71.5); PLATELET COUNT (AUTO) 173 K/uL (179-408); RED BLOOD CELL COUNT(AUTO) 2.81 MIL/uL (3.63-4.92); WHITE BLOOD COUNT (AUTO) 3.4 K/uL (3.8-11.8)
--- NOTE | 2019-04-03 06:48 | NUR ---
Patient slept intermittently t/o shift. No acute distress noted. Remains on the same vent settings: SIMV 12 VT 500 PEEP 5 PS 10 FIO2 28%. TELE SR at 71. Patient PICC line on the right upper arm, patent and intact. Patient has a wound on her lower lip. She was found biting on it. Tolerating tube feeding well. Edema is prominent on the right arm. Clarke draining clear and yellow urine. NO BM. Turned and repositioned. Clarke care provided. Safety and comfort measures maintained t/o shift. Vital signs stable. All meds given as ordered. All needs met.
[2019-04-03 06:59] LABS: CARBON DIOXIDE 30 mmol/L (21-32); CHLORIDE 99 mmol/L (98-107); CREATININE 0.3 mg/dL (0.6-1.3); GLUCOSE 120 mg/dL (74-106); MAGNESIUM 1.8 mg/dL (1.8-2.4); PHOSPHOROUS 3.6 mg/dL (2.5-4.9); POTASSIUM 3.4 mmol/L (3.5-5.1); UREA NITROGEN, BLOOD 12 mg/dL (7-18)
[2019-04-03 07:06] LABS: PHENYTOIN (DILANTIN) 25.4 ug/mL (10.0-20.0)
--- NOTE | 2019-04-03 08:00 | NUR ---
PATIENT RESTING COMFORTABLY NO SS OF ACUTE PAIN OR DISTRESS VENT SETTINGS AT 12-28-500-5 SR ON MOITOR. CLOSELY WQATCH FOR SEIZURE
--- NOTE | 2019-04-03 08:06 | NUR ---
PT REC'D ON CARBAJAL VENT TOLERATING CURRENT VENT SETTINGS WELL. TRACH SH [address] PATENT AND SECURE. SXN'ING Q2 AND PRN. INLINE NEB TX'S TO BE GIVEN PER MD ORDER. VENT ALARMS AUDIBLE CHECKED AND RESET. BVM AND BACK-UP TRACH AT BEDSIDE.
[2019-04-03] MEDS: LEVETIRACETAM 500 MG/5 ML LIQUID UDC NG SCH ×2 (09:09→21:26)
[2019-04-03] MEDS: PHENYTOIN 100 MG/4 ML UDC GT SCH ×2 (09:10→21:26)
[2019-04-03] MEDS: ACIDOPHILUS/BULGARICUS CHEW TAB GT SCH ×2 (09:10→21:26)
[2019-04-03] MEDS: HYDROGEN PEROXIDE 3% 118 ML BOTTLE TP SCH ×2 (09:11→21:28)
[2019-04-03] MEDS: COD LIVER OIL/ZINC OXIDE OINT 113 GM TUBE TP SCH ×2 (09:11→21:28)
[2019-04-03] MEDS: MIDODRINE HCL 5 MG TABLET GT SCH ×3 (09:13→16:39)
[2019-04-03] MEDS: Z GUARD REMEDY PASTE 57 GM TUBE TOP PRN (09:13)
[2019-04-03] MEDS: POTASSIUM CHLORIDE 20 MEQ POWDER PACKET GT SCH (09:19)
[2019-04-03] MEDS: PROTEIN SUPPLEMENT (PROSTAT) 30 ML LIQUID PO SCH ×2 (09:20→16:40)
[2019-04-03] MEDS: VITAL AF 1.2 1,000 ML LIQUID GT PRN (09:50)
[2019-04-03] MEDS ORDERED: POTASSIUM CHLORIDE 20 MEQ POWDER PACKET GT ONE (11:15)
--- NOTE | 2019-04-03 11:45 | NUR ---
SEEN BY DR CORRALES NOTED ABNORMAL LABS WITH ORDERS. SEE NOTES
--- NOTE | 2019-04-03 14:49 | NUR ---
NO ACUTE CHANGE, CONTINUE PLAN OF CARE. TOLERATING WELL. SR ON MONITOR
--- NOTE | 2019-04-03 19:37 | NUR ---
PT RECEIVED TRACH TO VENT ON CMV, DIONLEY #6 TRACH IS PATENT AND SECURE. PT IS ON A HT-50 VENT ON SETTINGS OF SIMV 12, VT 500, PS 10, PEEP +5, FIO2 28%. VENT PARAMETERS AND ALARMS CHECKED, ALARMS ARE AUDIBLE. IN-LINE TX TOLERATED WELL, NO ADVERSE REACTION NOTED. PT IS TOLERATING VENT WELL, NO SOB NOTED. BVM AND BACK-UP TRACH AT BEDSIDE. VENT PLUGGED INTO RED OUTLET. SUCTION PRN. WILL CONTINUE TO MONITOR.
[2019-04-03] MEDS ORDERED: LORAZEPAM 2 MG/1 ML VIAL IV PRN (19:45)
--- NOTE | 2019-04-03 20:00 | NUR ---
Received patient lying in bed. Non-verbal, obtunded. Affect flat. Tracheostomy in place with vent sets at 12-500-28-5, saturating 97%. In no acute distress. No signs or symptoms of pain or SOB. GT intact and patent. Tolerating Vital AF at 55cc/hr. HOB kept elevated. PICC line on right upper arm intact. NSR on tele at 84/min. Clarke catheter intact and draining via gravity. Reposition patient for comfort. Continue to monitor.
[2019-04-03] MEDS: THIAMINE HCL 100 MG TABLET GT SCH (21:27)
[2019-04-03] MEDS: ENOXAPARIN SODIUM 40 MG/0.4 ML DISP.SYRIN SQ SCH (21:27)
[2019-04-03] MEDS: FOLIC ACID 1 MG TABLET GT SCH (21:27)
[2019-04-03] MEDS: CHOLECALCIFEROL 1,000 UNIT TABLET GT SCH (21:27)
[2019-04-04] VITALS (7 sets, daily range): BP systolic 90–118; BP diastolic 58–67
[2019-04-04] MEDS: ALBUTEROL SULFATE 2.5 MG/3 ML NEBU IH SCH ×6 (02:31→22:35)
[2019-04-04] MEDS: IPRATROPIUM BROMIDE 0.5 MG/2.5 ML NEBU NEB SCH ×6 (02:31→22:35)
[2019-04-04] MEDS: BACLOFEN 20 MG TABLET GT SCH ×3 (05:00→22:18)
[2019-04-04] MEDS: ESOMEPRAZOLE MAGNESIUM 40 MG SUSPDR.PKT GT SCH (05:00)
--- NOTE | 2019-04-04 06:30 | NUR ---
Patient appears comfortable in bed. Turn and reosition for comfort. In no acute distress. No signs or symptoms of pain or SOB. Tolerated GT feeding and flushing. HOB kept elevated. Suction secretions PRN. PICC line on right upper arm intact and patent. NSR on tele at 96/min. Clarke catheter intact and draining via gravity. Seizure precaution and safety measure maintained.
[2019-04-04 07:07] LABS: BASOPHILS # (AUTO) 0.1 K/uL (0.0-8.0); BASOPHILS % (AUTO) 0.7 % (0.0-2.0); EOSINOPHILS # (AUTO) 0.3 K/uL (0.0-0.7); EOSINOPHILS % (AUTO) 3.3 % (0.0-7.0); HEMATOCRIT 31.7 % (31.2-41.9); HEMOGLOBIN 10.7 g/dL (10.9-14.3); LYMPHOCYTES # (AUTO) 1.1 K/uL (20.0-40.0); LYMPHOCYTES % (AUTO) 14.1 % (20.5-51.5); MEAN CORPUSCULAR HEMOGLOBIN 31.5 uug (24.7-32.8); MEAN CORPUSCULAR HGB CONC 34 g/dL (32.3-35.6); MEAN CORPUSCULAR VOLUME 93.4 fL (75.5-95.3); MONOCYTES # (AUTO) 0.7 K/uL (2.0-10.0); MONOCYTES % (AUTO) 8.4 % (0.0-11.0); NEUTROPHILS # (AUTO) 5.9 K/uL (1.8-8.9); NEUTROPHILS % (AUTO) 73.5 % (38.5-71.5); PLATELET COUNT (AUTO) 226 K/uL (179-408); RED BLOOD CELL COUNT(AUTO) 3.39 MIL/uL (3.63-4.92); WHITE BLOOD COUNT (AUTO) 8.1 K/uL (3.8-11.8)
[2019-04-04 07:30] LABS: CARBON DIOXIDE 28 mmol/L (21-32); CHLORIDE 114 mmol/L (98-107); CREATININE 0.5 mg/dL (0.6-1.3); GLUCOSE 100 mg/dL (74-106); MAGNESIUM 2.1 mg/dL (1.8-2.4); PHOSPHOROUS 4.6 mg/dL (2.5-4.9); POTASSIUM 4.6 mmol/L (3.5-5.1); UREA NITROGEN, BLOOD 10 mg/dL (7-18)
--- NOTE | 2019-04-04 08:00 | NUR ---
RESTING COMFORTABLY IN BED, BLINK EYES ONLY TO TURNING OR MOVEMENTS FROM SIDE TO SIDE. CONTINUE WITH SKYLER MONITORING
[2019-04-04] MEDS: POTASSIUM CHLORIDE 20 MEQ POWDER PACKET GT SCH (08:39)
[2019-04-04] MEDS: LEVETIRACETAM 500 MG/5 ML LIQUID UDC NG SCH ×2 (08:40→20:05)
[2019-04-04] MEDS: ACIDOPHILUS/BULGARICUS CHEW TAB GT SCH ×2 (08:40→20:10)
[2019-04-04] MEDS: MIDODRINE HCL 5 MG TABLET GT SCH ×3 (08:40→16:52)
[2019-04-04] MEDS: PHENYTOIN 100 MG/4 ML UDC GT SCH ×2 (08:40→20:10)
[2019-04-04] MEDS: PROTEIN SUPPLEMENT (PROSTAT) 30 ML LIQUID PO SCH ×2 (08:42→16:52)
[2019-04-04] MEDS: COD LIVER OIL/ZINC OXIDE OINT 113 GM TUBE TP SCH ×2 (08:43→20:11)
[2019-04-04] MEDS: Z GUARD REMEDY PASTE 57 GM TUBE TOP PRN (08:44)
[2019-04-04] MEDS: HYDROGEN PEROXIDE 3% 118 ML BOTTLE TP SCH ×2 (08:44→20:11)
--- NOTE | 2019-04-04 10:30 | NUR ---
SEEN BY DR LEONARD MADE AWARE OF HIGH NA, SEE NOTES
[2019-04-04] MEDS: VITAL AF 1.2 1,000 ML LIQUID GT PRN (11:59)
--- NOTE | 2019-04-04 17:03 | NUR ---
CONTINUE CURRENT TX PLAN, NO SEIZURE NOTED, TOLERATING TUBE FEEDING. SR ON MONITOR
--- NOTE | 2019-04-04 19:30 | NUR ---
Report received. Patient with trache to vent with same settings. S/P BROKER ASSISTANT shunt placement 03/17/2019; post op sites clean and dry. James intact. Assessment completed. Addendum: 04/05/19 at 0511 by OTF SILVA RN Amended: Links added.
[2019-04-04] MEDS: CHOLECALCIFEROL 1,000 UNIT TABLET GT SCH (20:10)
[2019-04-04] MEDS: THIAMINE HCL 100 MG TABLET GT SCH (20:10)
[2019-04-04] MEDS: FOLIC ACID 1 MG TABLET GT SCH (20:10)
[2019-04-04] MEDS: POLYVINYL ALCOHOL OPHT DROPS 15 ML BOTTLE EACHEYE PRN (20:11)
[2019-04-04] MEDS: ENOXAPARIN SODIUM 40 MG/0.4 ML DISP.SYRIN SQ SCH (20:13)
[2019-04-05 00:19] VITALS: BP 104/61
[2019-04-05] MEDS: IPRATROPIUM BROMIDE 0.5 MG/2.5 ML NEBU NEB SCH ×5 (02:37→22:09)
[2019-04-05] MEDS: ALBUTEROL SULFATE 2.5 MG/3 ML NEBU IH SCH ×5 (02:37→22:09)
[2019-04-05 04:00] VITALS: BP 108/63
[2019-04-05] MEDS: ESOMEPRAZOLE MAGNESIUM 40 MG SUSPDR.PKT GT SCH (05:16)
[2019-04-05] MEDS: BACLOFEN 20 MG TABLET GT SCH ×3 (05:16→22:00)
--- NOTE | 2019-04-05 06:30 | NUR ---
Stable on same vent settings. Tolerating GT feedings well. No neuro changes.
[2019-04-05 07:55] VITALS: BP 109/60
--- NOTE | 2019-04-05 08:00 | NUR ---
RESTING COMFORTABLY , OCCASIONAL BLINKING BOTH EYES OBSERVED DURING CARE, NO NAUSEA AND VOMITING, SS OF PAIN OR DISTRESS. REMAINS SR ON MONITOR
[2019-04-05] MEDS: POTASSIUM CHLORIDE 20 MEQ POWDER PACKET GT SCH (08:39)
[2019-04-05] MEDS: LEVETIRACETAM 500 MG/5 ML LIQUID UDC NG SCH ×2 (08:39→20:58)
[2019-04-05] MEDS: MIDODRINE HCL 5 MG TABLET GT SCH ×3 (08:39→17:28)
[2019-04-05] MEDS: ACIDOPHILUS/BULGARICUS CHEW TAB GT SCH ×2 (08:39→20:58)
[2019-04-05] MEDS: COD LIVER OIL/ZINC OXIDE OINT 113 GM TUBE TP SCH ×2 (08:40→20:59)
[2019-04-05] MEDS: HYDROGEN PEROXIDE 3% 118 ML BOTTLE TP SCH ×2 (08:40→20:59)
[2019-04-05] MEDS: PROTEIN SUPPLEMENT (PROSTAT) 30 ML LIQUID PO SCH ×2 (08:40→17:29)
[2019-04-05] MEDS: VITAL AF 1.2 1,000 ML LIQUID GT PRN (08:41)
[2019-04-05 09:05] LABS: BASOPHILS % (AUTO) 0.6 % (0.0-2.0); EOSINOPHILS # (AUTO) 0.3 K/uL (0.0-0.7); EOSINOPHILS % (AUTO) 4.3 % (0.0-7.0); HEMATOCRIT 28.8 % (31.2-41.9); HEMOGLOBIN 9.7 g/dL (10.9-14.3); LYMPHOCYTES # (AUTO) 1.8 K/uL (20.0-40.0); LYMPHOCYTES % (AUTO) 24.2 % (20.5-51.5); MEAN CORPUSCULAR HEMOGLOBIN 31.8 uug (24.7-32.8); MEAN CORPUSCULAR HGB CONC 34 g/dL (32.3-35.6); MEAN CORPUSCULAR VOLUME 94.5 fL (75.5-95.3); MONOCYTES # (AUTO) 0.7 K/uL (2.0-10.0); NEUTROPHILS # (AUTO) 4.6 K/uL (1.8-8.9); NEUTROPHILS % (AUTO) 61.9 % (38.5-71.5); PLATELET COUNT (AUTO) 237 K/uL (179-408); RED BLOOD CELL COUNT(AUTO) 3.05 MIL/uL (3.63-4.92); WHITE BLOOD COUNT (AUTO) 7.4 K/uL (3.8-11.8)
[2019-04-05 09:39] LABS: CARBON DIOXIDE 28 mmol/L (21-32); CHLORIDE 112 mmol/L (98-107); CREATININE 0.4 mg/dL (0.6-1.3); GLUCOSE 81 mg/dL (74-106); PHOSPHOROUS 3.4 mg/dL (2.5-4.9); POTASSIUM 3.6 mmol/L (3.5-5.1); UREA NITROGEN, BLOOD 20 mg/dL (7-18)
[2019-04-05 09:42] LABS: PHENYTOIN (DILANTIN) 25.5 ug/mL (10.0-20.0)
[2019-04-05 09:58] LABS: BAND % (MANUAL) 4 % (0-10); EOSINOPHILS % (MANUAL) 5 % (0-8); LYMPHOCYTES % (MANUAL) 27 % (20-40); MONOCYTES % (MANUAL) 5 % (2-10); NEUTROPHILS % (MANUAL) 59 % (42-75)
--- NOTE | 2019-04-05 12:00 | NUR ---
CONTINUE CURRENT TX PLAN. AWAITING CRANIOPLASTYAS NOTED FROM DR NAJERA
[2019-04-05 12:09] VITALS: BP 120/82
[2019-04-05] MEDS: DESMOPRESSIN 0.1 MG TABLET GT SCH (13:14)
--- NOTE | 2019-04-05 14:24 | NUR ---
PLAN DC BACK TO [facility] IF CLEARED BY HOSPITALIST AND NEURO. PATIENT NOTED NO SS OF DISTRESS WITH CURRENT VENT SETTINGS 12-28-500-5 SATURATING 100%, NO SEIZURE NOTED. AFEBRILE. SPC. FOR UA/CS SENT PER DR MUKHERJEE
[2019-04-05 16:13] LABS: *BILIRUBIN,URIN NEGATIVE (NEGATIVE); *CLARITY,URINE SLIGHTLY CLOUDY (CLEAR); *COLOR,URINE YELLOW (YELLOW); *KETONES,URINE NEGATIVE (NEGATIVE); *UROBILINOGEN,URINE 0.2 E.U./dl (NORMAL); NITRITE, URINE NEGATIVE (NEGATIVE); UGLUCOSE NEGATIVE (NEGATIVE)
[2019-04-05 16:28] VITALS: BP 141/77
[2019-04-05 16:28] LABS: *BLOOD, URINE TRACE (NEGATIVE); LEUKOCYTE ESTERASE ,URINE 1+ (NEGATIVE)
[2019-04-05 16:30] LABS: BACTERIA,URINE FEW /HPF (NONE SEEN); SQUAMOUS EPITHELIAL CELL,UR FEW /HPF (NONE SEEN); WBC,URINE 50-80 /HPF (0-3)
[2019-04-05 16:31] LABS: YEAST,URINE MANY /HPF (NONE SEEN)
--- NOTE | 2019-04-05 19:30 | NUR ---
Report received. Patient comatose, grimaces and posturing during care such as turning, suctioning. With trache to vent settings as follows: SIMV=12, QI=441 ml, FIO2=28%, PEEP=5 cm, PS=10. Sat 99-100%. Assessment done; see flow sheet for details. L scalp area severely sunken. S/P INSPECTOR FIBROUS WALLBOARD shunt placement 03/17/2019; post op sites maik intact, clean and dry.
[2019-04-05 20:36] VITALS: BP 100/58
[2019-04-05] MEDS: THIAMINE HCL 100 MG TABLET GT SCH (20:59)
[2019-04-05] MEDS: POLYVINYL ALCOHOL OPHT DROPS 15 ML BOTTLE EACHEYE PRN (20:59)
[2019-04-05] MEDS: FOLIC ACID 1 MG TABLET GT SCH (20:59)
[2019-04-05] MEDS: CHOLECALCIFEROL 1,000 UNIT TABLET GT SCH (20:59)
[2019-04-05] MEDS: Z GUARD REMEDY PASTE 57 GM TUBE TOP PRN (21:00)
[2019-04-05] MEDS: ENOXAPARIN SODIUM 40 MG/0.4 ML DISP.SYRIN SQ SCH (21:02)
--- NOTE | 2019-04-05 21:20 | NUR ---
Dr. Iqbal; plan of care discussed. maik removed from post PRESSURE TESTER shunt placement sites. No unusual drainage noted. L scalp area seen by Dr. Iqbal; will adjust PRESSURE TESTER shunt as per MD.
--- NOTE | 2019-04-05 21:45 | NUR ---
Dr. Iqbal at bedside. MULTICULTURAL INTERNSHIP shunt adjusted by MD to reduce flap/scalp depression.
[2019-04-06] MEDS: IPRATROPIUM BROMIDE 0.5 MG/2.5 ML NEBU NEB SCH ×7 (00:17→23:20)
[2019-04-06] MEDS: ALBUTEROL SULFATE 2.5 MG/3 ML NEBU IH SCH ×7 (00:18→23:20)
[2019-04-06 00:28] VITALS: BP 98/54
--- NOTE | 2019-04-06 03:24 | NUR ---
PT ON CONT CARBAJAL VENT WITH SHILEY # [address] AND SECURED, WITH SAME CURRENT VENT SETTINGS, PT DOES ASSIST AT TIMES, GOOD COUGH EFFORT, SUCTIONED LIGHT PALE YELL TINGE SECRETIONS, CHECK CUFF, TRACH CARE DONE, CONT PULSE OXY AT BEDSIDE; ALL VENT ALARMS GOOD, NO VENT CHANGES MADE, PT STABLE, NEB INLINE X 3 WITH ALBUTEROL/ ATROVENT TOLL WELL, CHECK CUFF, CHANGE HME ;AMBU BAG AT BEDSIDE.Neel WALLSP Addendum: 04/06/19 at 0327 by BESS PACHECO RT Amended: Links added.
[2019-04-06 04:00] VITALS: BP 105/54
[2019-04-06] MEDS: VITAL AF 1.2 1,000 ML LIQUID GT PRN (04:08)
[2019-04-06] MEDS: ESOMEPRAZOLE MAGNESIUM 40 MG SUSPDR.PKT GT SCH (05:16)
[2019-04-06] MEDS: BACLOFEN 20 MG TABLET GT SCH ×3 (05:16→21:56)
[2019-04-06] MEDS ORDERED: PHENYTOIN 100 MG/4 ML UDC NG SCH (06:00)
--- NOTE | 2019-04-06 06:42 | NUR ---
No neuro changes. L scalp area remains severely sunken. Stable on same vent settings; sat above 96%.
[2019-04-06 07:33] VITALS: BP 136/59
[2019-04-06] MEDS: DESMOPRESSIN 0.1 MG TABLET GT SCH (08:35)
[2019-04-06] MEDS: LEVETIRACETAM 500 MG/5 ML LIQUID UDC NG SCH ×2 (08:35→20:52)
[2019-04-06] MEDS: ACIDOPHILUS/BULGARICUS CHEW TAB GT SCH ×2 (08:36→20:53)
[2019-04-06] MEDS: PROTEIN SUPPLEMENT (PROSTAT) 30 ML LIQUID PO SCH ×2 (08:37→16:06)
[2019-04-06] MEDS: MIDODRINE HCL 5 MG TABLET GT SCH ×3 (08:40→16:07)
[2019-04-06] MEDS: COD LIVER OIL/ZINC OXIDE OINT 113 GM TUBE TP SCH ×2 (08:41→20:53)
[2019-04-06] MEDS: HYDROGEN PEROXIDE 3% 118 ML BOTTLE TP SCH ×2 (08:42→20:53)
[2019-04-06 09:18] LABS: BASOPHILS % (AUTO) 0.3 % (0.0-2.0); EOSINOPHILS # (AUTO) 0.4 K/uL (0.0-0.7); EOSINOPHILS % (AUTO) 5.1 % (0.0-7.0); HEMATOCRIT 32.1 % (31.2-41.9); HEMOGLOBIN 10.5 g/dL (10.9-14.3); LYMPHOCYTES # (AUTO) 1.8 K/uL (20.0-40.0); LYMPHOCYTES % (AUTO) 26.3 % (20.5-51.5); MEAN CORPUSCULAR HEMOGLOBIN 30.9 uug (24.7-32.8); MEAN CORPUSCULAR HGB CONC 33 g/dL (32.3-35.6); MEAN CORPUSCULAR VOLUME 94.4 fL (75.5-95.3); MONOCYTES # (AUTO) 0.5 K/uL (2.0-10.0); MONOCYTES % (AUTO) 6.8 % (0.0-11.0); NEUTROPHILS # (AUTO) 4.3 K/uL (1.8-8.9); NEUTROPHILS % (AUTO) 61.5 % (38.5-71.5); PLATELET COUNT (AUTO) 231 K/uL (179-408); WHITE BLOOD COUNT (AUTO) 6.9 K/uL (3.8-11.8)
[2019-04-06 09:27] LABS: ALANINE AMINOTRANSFERASE 254 U/L (14-59); ALKALINE PHOSPHATASE 368 U/L (50-136); ASPARTATE AMINOTRANSFERASE 204 U/L (15-37); BILIRUBIN,TOTAL 0.1 mg/dL (0.2-1.0); CARBON DIOXIDE 29 mmol/L (21-32); CHLORIDE 108 mmol/L (98-107); CREATININE 0.4 mg/dL (0.6-1.3); GLUCOSE 91 mg/dL (74-106); MAGNESIUM 1.6 mg/dL (1.8-2.4); PHOSPHOROUS 3.8 mg/dL (2.5-4.9); POTASSIUM 3.9 mmol/L (3.5-5.1); TOTAL PROTEIN, SERUM 7.3 g/dL (6.4-8.2); UREA NITROGEN, BLOOD 19 mg/dL (7-18)
[2019-04-06 11:45] VITALS: BP 116/59
[2019-04-06] MEDS: MAGNESIUM SULFATE/D5W 100 ML IV SCH ×2 (15:44→16:31)
[2019-04-06 16:07] VITALS: BP 114/57
--- NOTE | 2019-04-06 19:30 | NUR ---
Report received from am RN. Patient with trache to vent on same settings. NAd noted. S/P FABRICATION AND LAYOUT CRAFTSMAN shunt placement 03/17/2019. GWith facial grimacing and posturing to stimulation. Doesn't open eyes. Assessment done; see flow sheet for details.
[2019-04-06 20:06] VITALS: BP 129/73
[2019-04-06] MEDS: CHOLECALCIFEROL 1,000 UNIT TABLET GT SCH (20:53)
[2019-04-06] MEDS: POLYVINYL ALCOHOL OPHT DROPS 15 ML BOTTLE EACHEYE PRN (20:53)
[2019-04-06] MEDS: FOLIC ACID 1 MG TABLET GT SCH (20:53)
[2019-04-06] MEDS: THIAMINE HCL 100 MG TABLET GT SCH (20:53)
[2019-04-06] MEDS: ENOXAPARIN SODIUM 40 MG/0.4 ML DISP.SYRIN SQ SCH (20:54)
[2019-04-07] VITALS (7 sets, daily range): BP systolic 121–135; BP diastolic 64–92
--- NOTE | 2019-04-07 | NUR ---
Tolerating GT feedings well. No neuro changes. VS stable.
[2019-04-07] MEDS: IPRATROPIUM BROMIDE 0.5 MG/2.5 ML NEBU NEB SCH ×6 (02:45→22:41)
[2019-04-07] MEDS: ALBUTEROL SULFATE 2.5 MG/3 ML NEBU IH SCH ×6 (02:45→22:41)
[2019-04-07] MEDS: ESOMEPRAZOLE MAGNESIUM 40 MG SUSPDR.PKT GT SCH (05:32)
[2019-04-07] MEDS: BACLOFEN 20 MG TABLET GT SCH ×3 (05:33→22:00)
[2019-04-07] MEDS ORDERED: PHENYTOIN 100 MG/4 ML UDC NG SCH ×2 (06:00→21:00)
--- NOTE | 2019-04-07 06:04 | NUR ---
Patient appears comfortable in bed. In no acute distress. No signs or symptoms of pain or SOB. Tolerated GT feeding and flushing. HOB kept elevated. PICC line on right upper arm intact and patent. NSR on tele at 79/min. Clarke catheter intact and draining via gravity. Seizure precaution and safety measure maintained.
[2019-04-07 07:34] LABS: BASOPHILS % (AUTO) 0.2 % (0.0-2.0); EOSINOPHILS # (AUTO) 0.3 K/uL (0.0-0.7); EOSINOPHILS % (AUTO) 1.9 % (0.0-7.0); HEMATOCRIT 27.2 % (31.2-41.9); HEMOGLOBIN 9.4 g/dL (10.9-14.3); LYMPHOCYTES # (AUTO) 1.2 K/uL (20.0-40.0); LYMPHOCYTES % (AUTO) 8.2 % (20.5-51.5); MEAN CORPUSCULAR HEMOGLOBIN 32.3 uug (24.7-32.8); MEAN CORPUSCULAR HGB CONC 35 g/dL (32.3-35.6); MEAN CORPUSCULAR VOLUME 93.6 fL (75.5-95.3); MONOCYTES # (AUTO) 0.5 K/uL (2.0-10.0); MONOCYTES % (AUTO) 3.2 % (0.0-11.0); NEUTROPHILS # (AUTO) 12.4 K/uL (1.8-8.9); NEUTROPHILS % (AUTO) 86.5 % (38.5-71.5); PLATELET COUNT (AUTO) 263 K/uL (179-408); WHITE BLOOD COUNT (AUTO) 14.3 K/uL (3.8-11.8)
[2019-04-07 07:47] LABS: ALANINE AMINOTRANSFERASE 281 U/L (14-59); ALKALINE PHOSPHATASE 375 U/L (50-136); ASPARTATE AMINOTRANSFERASE 186 U/L (15-37); BILIRUBIN,TOTAL 0.2 mg/dL (0.2-1.0); CARBON DIOXIDE 29 mmol/L (21-32); CHLORIDE 106 mmol/L (98-107); CREATININE 0.4 mg/dL (0.6-1.3); GLUCOSE 110 mg/dL (74-106); MAGNESIUM 1.9 mg/dL (1.8-2.4); PHENYTOIN (DILANTIN) 15.1 ug/mL (10.0-20.0); PHOSPHOROUS 4.4 mg/dL (2.5-4.9); POTASSIUM 3.7 mmol/L (3.5-5.1); TOTAL PROTEIN, SERUM 7.1 g/dL (6.4-8.2); UREA NITROGEN, BLOOD 16 mg/dL (7-18)
--- NOTE | 2019-04-07 08:00 | NUR ---
Orientation with HEDY Graves. All charting and documentation notes reviewed by HEDY Graves.
[2019-04-07] MEDS: DESMOPRESSIN 0.1 MG TABLET GT SCH (08:22)
[2019-04-07] MEDS: LEVETIRACETAM 500 MG/5 ML LIQUID UDC NG SCH ×2 (08:23→20:00)
[2019-04-07] MEDS: MIDODRINE HCL 5 MG TABLET GT SCH ×3 (08:27→17:00)
[2019-04-07] MEDS: ACIDOPHILUS/BULGARICUS CHEW TAB GT SCH ×2 (08:27→21:00)
[2019-04-07] MEDS: PROTEIN SUPPLEMENT (PROSTAT) 30 ML LIQUID PO SCH ×2 (08:28→17:00)
[2019-04-07] MEDS: HYDROGEN PEROXIDE 3% 118 ML BOTTLE TP SCH ×2 (08:35→20:47)
[2019-04-07] MEDS: COD LIVER OIL/ZINC OXIDE OINT 113 GM TUBE TP SCH ×2 (08:35→20:46)
[2019-04-07] MEDS: VITAL AF 1.2 1,000 ML LIQUID GT PRN (10:29)
[2019-04-07] MEDS ORDERED: SWABABLE VALVE TRANSFER SET EA MC ONE ×2 (12:28→16:09)
[2019-04-07] MEDS ORDERED: IV NORMAL SALINE 250 ML IV ONE (12:28)
[2019-04-07] MEDS ORDERED: IOHEXOL 300MG/ML 100 ML INFUS..BTL ONE ×2 (12:28→16:09)
--- NOTE | 2019-04-07 13:00 | NUR ---
Patient NPO for CT scan of abdomen. Patient noted to have distended abdomen. Addendum: 04/07/19 at 1745 by YVES LOPEZ RN Tube feeding kept off.
--- NOTE | 2019-04-07 13:15 | NUR ---
Spoke with Martina, patient's mother, and obtained consent for patient's computerized tomography of the abdomen with contrast. Mother alert and oriented during conversation on telephone and is aware of the procedure to be done. Also called Kuldeep who spoke with mother regarding procedure.
[2019-04-07] MEDS: MICAFUNGIN SODIUM 100 MG in IV NORMAL SALINE 100 ML IV SCH (16:54)
--- NOTE | 2019-04-07 17:00 | NUR ---
Patient kept NPO due to moderate to severe distension of the entire colon, per CT scan of the abdomen.
--- NOTE | 2019-04-07 20:00 | NUR ---
GT Feeding and flushing on hold per MD order. Addendum: 04/07/19 at 2210 by ESTEPHANIA GUERIN RN Amended: Links added.
--- NOTE | 2019-04-07 20:00 | NUR ---
Received patient lying in bed. Non-verbal. Affect flat. Appears comfortable. In no acute distress. GT intact and patent. NPO at this time. PICC line on right upper arm intact and patent. NSR on tele at 89/min. Tracheostomy intact. HOB kept elevated.. VS WNL. Continue to monitor.
--- NOTE | 2019-04-07 20:42 | NUR ---
Trying to clarify order for holding Gt feeding and GT medication for patient with Dr. Gomes. Awaiting for reply. Addendum: 04/07/19 at 2212 by ESTEPHANIA GUERIN RN ERROR
[2019-04-07] MEDS: ENOXAPARIN SODIUM 40 MG/0.4 ML DISP.SYRIN SQ SCH (20:46)
[2019-04-07] MEDS: CHOLECALCIFEROL 1,000 UNIT TABLET GT SCH (21:00)
[2019-04-07] MEDS: THIAMINE HCL 100 MG TABLET GT SCH (21:00)
[2019-04-07] MEDS: FOLIC ACID 1 MG TABLET GT SCH (21:00)
[2019-04-08] VITALS (8 sets, daily range): BP systolic 113–146; BP diastolic 65–75
[2019-04-08] MEDS: ALBUTEROL SULFATE 2.5 MG/3 ML NEBU IH SCH ×6 (02:35→23:17)
[2019-04-08] MEDS: IPRATROPIUM BROMIDE 0.5 MG/2.5 ML NEBU NEB SCH ×6 (02:35→23:17)
--- NOTE | 2019-04-08 04:00 | NUR ---
Patient with tube feeding and flushing on hold per MD order. Addendum: 04/08/19 at 0410 by ESTEPHANIA GUERIN RN Amended: Links added.
--- NOTE | 2019-04-08 05:13 | NUR ---
Patient appears comfortable in bed. In no acute distress. No signs or symptoms of pain or SOB. HOB kept elevated. PICC line on right upper arm intact and patent. NSR on tele at 94/min. Suction secretions PRN and able to obtain small amount of drainage. Clarke catheter intact and draining via gravity. Seizure precaution and safety measure maintained.
[2019-04-08] MEDS: ESOMEPRAZOLE MAGNESIUM 40 MG SUSPDR.PKT GT SCH (06:00)
[2019-04-08] MEDS: BACLOFEN 20 MG TABLET GT SCH ×3 (06:00→22:00)
--- NOTE | 2019-04-08 07:15 | NUR ---
Patient received resting in bed. No acute distress or SOB noted in patient. Sinus rhythm on the monitor. O2 saturation WNL. Safety and seizure precautions in place. Bed locked, low and side rails up x 3. Will continue to monitor throughout shift
[2019-04-08 07:26] LABS: BASOPHILS % (AUTO) 0.2 % (0.0-2.0); EOSINOPHILS # (AUTO) 0.2 K/uL (0.0-0.7); EOSINOPHILS % (AUTO) 1.5 % (0.0-7.0); HEMOGLOBIN 9.3 g/dL (10.9-14.3); LYMPHOCYTES # (AUTO) 1.3 K/uL (20.0-40.0); LYMPHOCYTES % (AUTO) 8.8 % (20.5-51.5); MEAN CORPUSCULAR HEMOGLOBIN 31.1 uug (24.7-32.8); MEAN CORPUSCULAR HGB CONC 33 g/dL (32.3-35.6); MEAN CORPUSCULAR VOLUME 93.4 fL (75.5-95.3); MONOCYTES # (AUTO) 0.6 K/uL (2.0-10.0); MONOCYTES % (AUTO) 4.2 % (0.0-11.0); NEUTROPHILS # (AUTO) 12.4 K/uL (1.8-8.9); NEUTROPHILS % (AUTO) 85.3 % (38.5-71.5); PLATELET COUNT (AUTO) 240 K/uL (179-408); WHITE BLOOD COUNT (AUTO) 14.5 K/uL (3.8-11.8)
[2019-04-08 07:46] LABS: ALANINE AMINOTRANSFERASE 211 U/L (14-59); ALKALINE PHOSPHATASE 370 U/L (50-136); ASPARTATE AMINOTRANSFERASE 88 U/L (15-37); BILIRUBIN,TOTAL 0.2 mg/dL (0.2-1.0); CARBON DIOXIDE 27 mmol/L (21-32); CHLORIDE 107 mmol/L (98-107); CREATININE 0.5 mg/dL (0.6-1.3); GLUCOSE 79 mg/dL (74-106); PHOSPHOROUS 3.9 mg/dL (2.5-4.9); POTASSIUM 3.4 mmol/L (3.5-5.1); TOTAL PROTEIN, SERUM 7.5 g/dL (6.4-8.2); UREA NITROGEN, BLOOD 14 mg/dL (7-18)
[2019-04-08] MEDS: PROTEIN SUPPLEMENT (PROSTAT) 30 ML LIQUID PO SCH ×2 (08:00→17:00)
[2019-04-08] MEDS: ACIDOPHILUS/BULGARICUS CHEW TAB GT SCH ×2 (08:34→21:00)
[2019-04-08] MEDS: MIDODRINE HCL 5 MG TABLET GT SCH ×3 (08:34→17:00)
[2019-04-08] MEDS ORDERED: IV 1/2NS 1000 ML 1,000 ML IV PRN (08:35)
[2019-04-08] MEDS: LEVETIRACETAM IV 1,500 MG in IV DEXTROSE 5% 100 ML IV SCH ×2 (09:46→21:27)
[2019-04-08] MEDS: COD LIVER OIL/ZINC OXIDE OINT 113 GM TUBE TP SCH ×2 (09:56→22:35)
[2019-04-08] MEDS: DESMOPRESSIN 4 MCG/1 ML VIAL SUBCUT SCH (09:56)
[2019-04-08] MEDS: HYDROGEN PEROXIDE 3% 118 ML BOTTLE TP SCH ×2 (09:56→22:35)
[2019-04-08] MEDS ORDERED: POTASSIUM CHLORIDE 20 MEQ POWDER PACKET GT ONE (10:15)
[2019-04-08] MEDS: PHENYTOIN SODIUM 100 MG/2 ML VIAL IV SCH ×2 (10:53→21:27)
--- NOTE | 2019-04-08 13:30 | NUR ---
Reglan dose given at 1330.
[2019-04-08] MEDS: METOCLOPRAMIDE HCL 10 MG/2 ML VIAL IV SCH ×3 (13:48→22:38)
[2019-04-08] MEDS: MICAFUNGIN SODIUM 100 MG in IV NORMAL SALINE 100 ML IV SCH (14:15)
[2019-04-08] MEDS: POTASSIUM CHLORIDE 50 ML IV SCH ×2 (18:13→20:32)
--- NOTE | 2019-04-08 18:40 | NUR ---
No acute change in patient condition throughout shift. Patient saturating at 100% O2. Sinus rhythm in the 80s. Lung sounds clear. Abdomen distended. PICC line patent and in tact with 0.45% NS running. Held meds through G-tube per MD. Continue feeding at night per MD. Orders carried out through shift, patient tolerated meds. Safety/seizure precautions in place. Continue with plan of care.
--- NOTE | 2019-04-08 19:00 | NUR ---
PATIENT EYES CLOSED, BUT RESPOND TO PAINFUL AND TACTILE STIMULI. HOB ELEVATED, TRACH SITE INTACT, ON VENT ORDERED, NO S/S OF DESATURATION NOTED. PATIENT HAS NO S/S OF SOB NO S/S OF CHEST PAIN, PATIENT ALL VIA GT MEDS ON HOLD AT THIS TIME. PATIENT WILL START GT FEEDING ORDERED. PATIENT ON TELE MONITOR SINUS RHYTHM, CONT TO MONITOR. NO REPORTED SEIZURES AT THIS TIME.
--- NOTE | 2019-04-08 20:25 | NUR ---
PATIENT HAS NEW ORDER TO CONTINUE CURRENT GT FEEDING FORMULA AT 30CC/HR X 20 HRS.
[2019-04-08] MEDS: CHOLECALCIFEROL 1,000 UNIT TABLET GT SCH (21:00)
[2019-04-08] MEDS: THIAMINE HCL 100 MG TABLET GT SCH (21:00)
[2019-04-08] MEDS: FOLIC ACID 1 MG TABLET GT SCH (21:00)
--- NOTE | 2019-04-08 21:41 | NUR ---
PATIENT ALL VIA GT MEDICATIONS NOT GIVEN PER MD ORDER TO HOLD ALL MEDS VIA GT.
[2019-04-08] MEDS ORDERED: VITAL AF 1.2 1,000 ML LIQUID GT PRN (22:00)
--- NOTE | 2019-04-08 23:19 | NUR ---
PT ON CONT CARBAJAL VENT WITH SHILEY # [address] AND SECURED, WITH SAME CURRENT VENT SETTINGS, PT DOES ASSIST AT TIMES, GOOD COUGH EFFORT, SUCTIONED LIGHT PALE YELL TINGE SECRETIONS, TRACH CARE DONE, ALL VENT ALARMS GOOD, NO VENT CHANGES MADE, Q4 NEB INLINE RXS TOLL WELL, CHECK CUFF, CHANGE HME; PT STABLE , PULSE OXY CONT AT BEDSIDE, 98-100%, AMBU BAG AT BEDSIDE.Neel WALLSP Addendum: 04/08/19 at 2322 by BESS PACHECO RT Amended: Links added.
[2019-04-09] VITALS (8 sets, daily range): BP systolic 104–145; BP diastolic 58–83
[2019-04-09] MEDS: ALBUTEROL SULFATE 2.5 MG/3 ML NEBU IH SCH ×5 (03:03→20:09)
[2019-04-09] MEDS: IPRATROPIUM BROMIDE 0.5 MG/2.5 ML NEBU NEB SCH ×5 (03:03→20:09)
[2019-04-09] MEDS: METOCLOPRAMIDE HCL 10 MG/2 ML VIAL IV SCH ×2 (05:20→15:18)
[2019-04-09] MEDS: BACLOFEN 20 MG TABLET GT SCH ×2 (05:20→14:00)
[2019-04-09] MEDS: ESOMEPRAZOLE MAGNESIUM 40 MG SUSPDR.PKT GT SCH (05:20)
--- NOTE | 2019-04-09 06:33 | NUR ---
PATIENT EYES OPEN WHEN GIVEN STIMULATIONS, NO S/S OF SOB NO S/S OF CHEST PAIN, TELE MONITOR SINUS RHYTHM. HOB ELEVATED, TOLERATE GT FEEDING NO VOMITING NOTED, PATIENT HAS LARGE SOFT BOWEL MOVEMENT, AMADOR CATH PATENT, TURN AND REPOSITION.PATIENT HAS NO EPISODE OF SEIZURES NOTED, ABDOMEN STILL MODERATELY DISTENDED. PATIENT HAS NO GT RESIDUAL NOTED, NO GAS NOTED AT THIS TIME, TRACH CARE DONE, GT CARE DONE, ORAL CARE DONE, KEPT EYES CLEAN AND DRY. CONT TO MONITOR.
[2019-04-09 06:50] LABS: BASOPHILS % (AUTO) 0.4 % (0.0-2.0); EOSINOPHILS # (AUTO) 0.3 K/uL (0.0-0.7); EOSINOPHILS % (AUTO) 2.5 % (0.0-7.0); HEMATOCRIT 25.4 % (31.2-41.9); HEMOGLOBIN 8.7 g/dL (10.9-14.3); LYMPHOCYTES # (AUTO) 1.5 K/uL (20.0-40.0); LYMPHOCYTES % (AUTO) 13.2 % (20.5-51.5); MEAN CORPUSCULAR HEMOGLOBIN 32.3 uug (24.7-32.8); MEAN CORPUSCULAR HGB CONC 34 g/dL (32.3-35.6); MEAN CORPUSCULAR VOLUME 94.3 fL (75.5-95.3); MONOCYTES # (AUTO) 0.7 K/uL (2.0-10.0); MONOCYTES % (AUTO) 6.2 % (0.0-11.0); NEUTROPHILS # (AUTO) 8.6 K/uL (1.8-8.9); NEUTROPHILS % (AUTO) 77.7 % (38.5-71.5); PLATELET COUNT (AUTO) 245 K/uL (179-408); RED BLOOD CELL COUNT(AUTO) 2.69 MIL/uL (3.63-4.92)
[2019-04-09 07:04] LABS: CARBON DIOXIDE 25 mmol/L (21-32); CHLORIDE 105 mmol/L (98-107); CREATININE 0.4 mg/dL (0.6-1.3); GLUCOSE 99 mg/dL (74-106); MAGNESIUM 1.8 mg/dL (1.8-2.4); PHOSPHOROUS 3.5 mg/dL (2.5-4.9); POTASSIUM 3.5 mmol/L (3.5-5.1); UREA NITROGEN, BLOOD 14 mg/dL (7-18)
--- NOTE | 2019-04-09 07:10 | NUR ---
PATIENT RECEIVED IN BED WITH EYES CLOSED. EYES OPEN TO PAIN STIMULATION. NO S/S OF PAIN OR SOB. NO SZ AT THIS TIME. ON PERSONNEL CLERKS SUPERVISOR SINUS RHYTHM. FEEDING VITAL 1.2 AF OFF AT THIS TIME. WILL RESUME AT 1000. HOB ELEVATED. ABDOMEN DISTENDED. AMADOR CATH IN PLACE WITH YELLOW URINE NOTED. SAFETY AND FALL PREVENTION IN PLACE. SEIZURE PRECAUTIONS AND ASPIRATION PRECAUTIONS IN PLACE. CALL LIGHT IN REACH. BED IN LOW POSITION AND LOCKED. SIDE RAILS PADDED AND SUCTION EQUIPMENT AT BEDSIDE. WILL CONTINUE TO MONITOR.
--- NOTE | 2019-04-09 07:22 | NUR ---
RECEIVED PT ON CMV VIA CARBAJAL VENT WITH CURRENT SETTNIGS OF SIMV 12, 500, PS 10, PEEP +5, FIO2 28%. NO CHANGES MADE. PT TOLERATING VENT AT THIS TIME. PT HAS A SHILEY #6 DCT TRACH AND IS PATENT AND SECURED VIA FOAM TRACH TIES. SUCTIONED SMALL AMOUNT OF THICK, PALE SECRETIONS. AMBU BAG AND BACK UP TRACH ARE AT BEDSIDE. CONTINUOUS PULSE OXIMETER IS ON AND AUDIBLE. VENT IS PLUGGED INTO RED EMERGENCY OUTLET. NO S/S OF RESPIRATORY DISTRESS OBSERVED. WILL CONTINUE TO MONITOR.
[2019-04-09] MEDS ORDERED: VITAL AF 1.2 1,000 ML LIQUID GT PRN (07:30)
[2019-04-09] MEDS: PROTEIN SUPPLEMENT (PROSTAT) 30 ML LIQUID PO SCH ×2 (08:00→17:00)
[2019-04-09] MEDS: ACIDOPHILUS/BULGARICUS CHEW TAB GT SCH ×2 (09:00→20:15)
[2019-04-09] MEDS: MIDODRINE HCL 5 MG TABLET GT SCH ×3 (09:00→17:00)
[2019-04-09] MEDS: HYDROGEN PEROXIDE 3% 118 ML BOTTLE TP SCH (09:25)
[2019-04-09] MEDS: PHENYTOIN SODIUM 100 MG/2 ML VIAL IV SCH ×2 (09:30→20:08)
[2019-04-09] MEDS: LEVETIRACETAM IV 1,500 MG in IV DEXTROSE 5% 100 ML IV SCH ×2 (09:31→20:08)
[2019-04-09] MEDS: COD LIVER OIL/ZINC OXIDE OINT 113 GM TUBE TP SCH (09:32)
[2019-04-09] MEDS: DESMOPRESSIN 4 MCG/1 ML VIAL SUBCUT SCH (09:32)
--- NOTE | 2019-04-09 09:45 | NUR ---
Received a call from nurse to clarify TF formula. Pt was on Vital AF 1.2. TF was on hold on 03/07/19 due to distended abdomen. Feeding restarted, however TF ordered was changed to Jevity 1.2. Spoke and discuss with nurse, rec change back to Vital AF 1.2 @ 55ml/hr x20hrs (goal rate). Addendum: 04/09/19 at [address] Amended: Links added.
[2019-04-09] MEDS: MICAFUNGIN SODIUM 100 MG in IV NORMAL SALINE 100 ML IV SCH (13:13)
[2019-04-09] MEDS: IV NORMAL SALINE 250 ML IV PRN (13:30)
[2019-04-09] MEDS ORDERED: LEVE1000 GT (18:32)
[2019-04-09] MEDS ORDERED: METO-295 GT (18:32)
[2019-04-09] MEDS ORDERED: PHEN100C4 GT (18:32)
[2019-04-09] MEDS ORDERED: PROT30LI PO (18:32)
[2019-04-09] MEDS ORDERED: ESOM40SU GT (18:32)
[2019-04-09] MEDS ORDERED: MENT71OI TOP (18:32)
--- NOTE | 2019-04-09 18:41 | NUR ---
PATIENT IN BED WITH EYES CLOSED. EYES OPEN TO VERBAL OR PAIN STIMULATION. NO S/S OF PAIN OR SOB. AMBU BAG AT BEDSIDE. NO SZ THROUGHOUT THE SHIFT. ON WATCH AND CLOCK REPAIR CLERK SINUS RHYTHM. FEEDING VITAL 1.2 AT 30CC/HR. HOB ELEVATED. ABDOMEN DISTENDED. AMADOR CATH IN PLACE WITH YELLOW URINE NOTED. SAFETY AND FALL PREVENTION IN PLACE. SEIZURE PRECAUTIONS AND ASPIRATION PRECAUTIONS IN PLACE. CALL LIGHT IN REACH. BED IN LOW POSITION AND LOCKED. SIDE RAILS PADDED AND SUCTION EQUIPMENT AT BEDSIDE. WILL CONTINUE TO MONITOR.
[2019-04-09] MEDS: THIAMINE HCL 100 MG TABLET GT SCH (20:15)
[2019-04-09] MEDS: CHOLECALCIFEROL 1,000 UNIT TABLET GT SCH (20:15)
[2019-04-09] MEDS: FOLIC ACID 1 MG TABLET GT SCH (20:16)
--- NOTE | 2019-04-09 22:06 | NUR ---
2114 transferred pt to room 415a bed escorted by RT Morejon; meds given per SEP and endorsed to Eugenie KNOTT which meds given;
[2019-04-10] MEDS ORDERED: ACID1TAB12 GT (11:31)
[2019-04-10] MEDS ORDERED: ALBU2.5V38 IH (11:39)
[2019-04-10] MEDS ORDERED: IPRA0.2S6 NEB ×2 (11:39→11:45)
[2019-04-10] MEDS ORDERED: OMEP20CA11 GT (11:39)
[2019-04-10] MEDS ORDERED: LORA2VIA33 IV (11:39)
[2019-04-10] MEDS ORDERED: MIDO10TA GT (11:39)
== END 2019-04-09 21:30 | DRG 22 ==
LOC: ER 17:13 → DOU3 20:15 → TELE-TD3 20:29 → CCU 03-17 11:36 → TELE-TD3 03-22 14:30 → CCU 03-25 06:16 → TELE-TD3 04-02 08:12
PROVIDERS: ADMIT Nurse Practitioner Acute Care; ATTEND Nurse Practitioner Acute Care
PROC: 5A1955Z Respiratory Ventilation, Greater than 96 Consecutive Hours (ICD-10-PCS; 2019-03-16)
PROC: 02HV33Z Insertion of Infusion Device into Superior Vena Cava, Percutaneous Approach (ICD-10-PCS; principal; 2019-03-17)
PROC: 00160J6 Bypass Cerebral Ventricle to Peritoneal Cavity with Synthetic Substitute, Open Approach (ICD-10-PCS; principal; 2019-03-17)
PROC: 009U3ZX Drainage of Spinal Canal, Percutaneous Approach, Diagnostic (ICD-10-PCS; 2019-03-21)
DX: G91.3 Post-traumatic hydrocephalus, unspecified (principal); R40.2212 Coma scale, best verbal response, none, at arrival to emergency department; G93.5 Compression of brain; R40.2312 Coma scale, best motor response, none, at arrival to emergency department; E43 Unspecified severe protein-calorie malnutrition; A41.9 Sepsis, unspecified organism; R65.21 Severe sepsis with septic shock; D61.818 Other pancytopenia; J96.11 Chronic respiratory failure with hypoxia; E23.2 Diabetes insipidus; E44.0 Moderate protein-calorie malnutrition; R53.2 Functional quadriplegia; S06.5X9S Traumatic subdural hemorrhage with loss of consciousness of unspecified duration, sequela; Z93.0 Tracheostomy status; D63.8 Anemia in other chronic diseases classified elsewhere; Z93.1 Gastrostomy status; R40.2142 Coma scale, eyes open, spontaneous, at arrival to emergency department; V49.9XXS Car occupant (driver) (passenger) injured in unspecified traffic accident, sequela; G40.901 Epilepsy, unspecified, not intractable, with status epilepticus; R13.10 Dysphagia, unspecified; T83.89XD Other specified complication of genitourinary prosthetic devices, implants and grafts, subsequent encounter; J32.2 Chronic ethmoidal sinusitis; G93.89 Other specified disorders of brain; Z87.01 Personal history of pneumonia (recurrent); Z99.11 Dependence on respirator [ventilator] status; K56.7 Ileus, unspecified; D68.59 Other primary thrombophilia; E83.42 Hypomagnesemia; K76.0 Fatty (change of) liver, not elsewhere classified; S02.11 Fracture of occiput; S06.1X9D Traumatic cerebral edema with loss of consciousness of unspecified duration, subsequent encounter; V49.9XXD Car occupant (driver) (passenger) injured in unspecified traffic accident, subsequent encounter; J90 Pleural effusion, not elsewhere classified; J32.8 Other chronic sinusitis; R14.0 Abdominal distension (gaseous)
CPT/HCPCS: 36415; 36569; 36600; 70030-TC; 70360; 70450; 71045; 71046; 72040; 74018; 74021; 82533; 83605; 83735; 84100; 84132; 84157; 84295; 84300; 84443; 84703; 85025; 85730; 86850; 86900; 86901; 87040; 87070; 87077; 87086; 87205; 89051; 93005; 93880; 94003; 94640; 94664; A4217; A4649; A4663; C1729; C1758; G0378; J1100; J1165; J1170; J1650; J1953; J2060; J2248; J2405; J2597; J2765; J3010; J3370; J3475; J3480; J3490; J3590; J7030; J7040; J7042; J7050; J7060; J7070; Q9967

== ENCOUNTER 2019-04-09 22:40 | Inpatient (IN) | END 2019-07-12 23:59 | disposition still patient (30) | DRG 130 | DX: J96.11 Chronic respiratory failure with hypoxia (principal); G82.50 Quadriplegia, unspecified; E43 Unspecified severe protein-calorie malnutrition; G93.40 Encephalopathy, unspecified; G91.3 Post-traumatic hydrocephalus, unspecified; E23.2 Diabetes insipidus; J90 Pleural effusion, not elsewhere classified; Z98.2 Presence of cerebrospinal fluid drainage device; G40.909 Epilepsy, unspecified, not intractable, without status epilepticus; D64.9 Anemia, unspecified; D68.59 Other primary thrombophilia; E83.42 Hypomagnesemia; K76.0 Fatty (change of) liver, not elsewhere classified; L03.311 Cellulitis of abdominal wall; L60.0 Ingrowing nail; N39.0 Urinary tract infection, site not specified; R13.10 Dysphagia, unspecified; Z87.01 Personal history of pneumonia (recurrent); Z87.820 Personal history of traumatic brain injury; Z93.0 Tracheostomy status; Z99.11 Dependence on respirator [ventilator] status; B96.4 Proteus (mirabilis) (morganii) as the cause of diseases classified elsewhere; I95.9 Hypotension, unspecified; R00.1 Bradycardia, unspecified; R60.9 Edema, unspecified ==

== ENCOUNTER 2019-04-22 16:08 | Outpatient (CLI) | payer MEDICAID ==
[~2019-04-22 16:08] MED LIST changes: -ACET650S26 GT; +ACID1TAB12 GT; +ALBU2.5V7 IH; -CEFE1PIG3 IV; -HEPA500034 SQ; -IPRA0.2S48 IH; +IPRA0.2S6 NEB; -LACT1CAP69 GT; +LEVE1000 GT; -LEVE100S GT; -LORA0.5T48 GT; +LORA2VIA33 IV; -MENT113O TOP; +METO-295 GT; -METR-147 GT; +MIDO10TA GT; -NUT.237L65 GT; -NYST15PO4 TOP; +OMEP20CA11 GT; -OMEP20TA5 GT; +PHEN100C4 GT; +PROT30LI PO; -VANC500V GT; -VITS42.53 TP
[2019-04-22] MEDS ORDERED: IV NORMAL SALINE 250 ML IV ONE (16:47)
[2019-04-22] MEDS ORDERED: IOHEXOL 300MG/ML 100 ML INFUS..BTL ONE (16:47)
[2019-04-22] MEDS ORDERED: SWABABLE VALVE TRANSFER SET EA MC ONE (16:47)
== END 2019-04-22 23:59 ==
LOC: RAD 16:08
PROVIDERS: ATTEND Internal Medicine Pulmonary Disease
DX: K59.39 Other megacolon (principal); R16.0 Hepatomegaly, not elsewhere classified; J98.19 Other pulmonary collapse
CPT/HCPCS: 74177; Q9967; J7050

== ENCOUNTER → 2020-07-12 23:59 | Inpatient (IN) | payer MEDICAID ==
[2019-07-14 08:30] VITALS: BP 118/74
[2019-07-14] MEDS: IPRATROPIUM BROMIDE 0.5 MG/2.5 ML NEBU NEB SCH ×2 (18:56→22:30)
[2019-07-14] MEDS: ALBUTEROL SULFATE 2.5 MG/3 ML NEBU NEB SCH ×2 (18:56→22:30)
--- NOTE | 2019-07-14 18:57 | NUR ---
Received pt on HT-50 ventilator with the following settings of SIMV-12, Vt-500, PEEP+5, PS-10, FIO2-2LPM bleed in, trached with Susyley#6 DCT trach, which is in the place and secure. No s/s of respiratory distress noted. Airway care done, pt responded to physical stimuli. In-line HHN tx with 2.5mg Albuterol+0.5mg Atrovent given, pt tolerated well. HME changed. Pt has a gauze between her lips to prevent biting. Resus. bag and back up trach at bedside. Vent and alarms checked and reset.
[2019-07-14 20:00] VITALS: BP 97/68
[2019-07-14] MEDS: HYDROGEN PEROXIDE 3% 118 ML BOTTLE TP SCH (21:04)
[2019-07-14] MEDS: THIAMINE HCL 100 MG TABLET GT SCH (21:25)
[2019-07-14] MEDS: NYSTATIN CREAM 30 GM TUBE TP SCH (21:25)
[2019-07-14] MEDS: ACIDOPHILUS/BULGARICUS CHEW TAB GT SCH (21:25)
[2019-07-14] MEDS: levETIRAcetam 500 MG/5 ML LIQUID UDC GT SCH (21:25)
[2019-07-14] MEDS: METOCLOPRAMIDE HCL 5 MG TABLET GT SCH (21:25)
[2019-07-14] MEDS: FOLIC ACID 1 MG TABLET GT SCH (21:25)
[2019-07-14] MEDS: COD LIVER OIL/ZINC OXIDE OINT 113 GM TUBE TOP SCH (21:25)
[2019-07-14] MEDS: MIDODRINE HCL 10 MG TABLET GT SCH (21:25)
[2019-07-14] MEDS: BACLOFEN 10 MG TABLET GT SCH (21:25)
[2019-07-14] MEDS: CHOLECALCIFEROL 1,000 UNIT TABLET GT SCH (21:25)
[2019-07-14] MEDS: PHENYTOIN 100 MG/4 ML UDC GT SCH (21:25)
[2019-07-14] MEDS: BACLOFEN 20 MG TABLET GT SCH (21:25)
--- NOTE | 2019-07-15 02:00 | NUR ---
bhatt catheter plugged reinserted with fr18/10cc and draining well to yellow colored urine with sediments noted.
[2019-07-15] MEDS: IPRATROPIUM BROMIDE 0.5 MG/2.5 ML NEBU NEB SCH ×6 (02:30→22:33)
[2019-07-15] MEDS: ALBUTEROL SULFATE 2.5 MG/3 ML NEBU NEB SCH ×6 (02:31→22:33)
[2019-07-15] MEDS: BACLOFEN 10 MG TABLET GT SCH ×3 (05:06→22:23)
[2019-07-15] MEDS: MIDODRINE HCL 10 MG TABLET GT SCH ×3 (05:06→22:24)
[2019-07-15] MEDS: OMEPRAZOLE 20 MG CAPSULE.DR GT SCH (05:06)
[2019-07-15] MEDS: BACLOFEN 20 MG TABLET GT SCH ×3 (05:06→22:23)
[2019-07-15] MEDS: METOCLOPRAMIDE HCL 5 MG TABLET GT SCH ×3 (05:06→22:24)
[2019-07-15] MEDS: DESMOPRESSIN 0.1 MG TABLET GT SCH (08:38)
[2019-07-15] MEDS: PHENYTOIN 100 MG/4 ML UDC GT SCH ×2 (08:38→20:32)
[2019-07-15] MEDS: levETIRAcetam 500 MG/5 ML LIQUID UDC GT SCH ×2 (08:38→20:34)
[2019-07-15] MEDS: ACIDOPHILUS/BULGARICUS CHEW TAB GT SCH ×2 (08:38→20:33)
[2019-07-15] MEDS: FUROSEMIDE 20 MG/2 ML GT SCH (08:39)
[2019-07-15] MEDS: COD LIVER OIL/ZINC OXIDE OINT 113 GM TUBE TOP SCH ×2 (08:39→20:36)
[2019-07-15] MEDS: POTASSIUM CHLORIDE 40 MEQ/30 ML LIQUID UDC GT SCH (08:39)
[2019-07-15] MEDS: NYSTATIN CREAM 30 GM TUBE TP SCH ×2 (08:39→20:36)
[2019-07-15] MEDS: HYDROGEN PEROXIDE 3% 118 ML BOTTLE TP SCH ×2 (09:54→20:18)
[2019-07-15 18:22] VITALS: BP 127/68
--- NOTE | 2019-07-15 19:53 | NUR ---
RECEIVED PATIENT ON THE HT-50 VENT WITH THE FOLLOWING SETTINGS THAT ARE CHARTED ON THE MECHANICAL VENT NOTES. TRACH TUBE IS PATENT AND SECURED WITH TRACH TIES. HME CHANGED. TRACH CARE DONE. SUCTIONED SMALL AMOUNTS OF THIN WHITE/YELLOW SECRETIONS. HHN GIVEN PER MD ORDERS AND TOLERATED WELL WITH NO ADVERSE REACTIONS. VENT ALARMS CHECKED AND THEY ARE ON AND AUDIBLE. VENT IS PLUGGED IN THE RED OUTLET. BACK UP TRACH AND AMBU BAG IS BY BEDSIDE. PATIENT IS TOLERATING CURRENT VENT SETTINGS WELL AT THIS TIME WITH NO SOB NOTED. WILL CONTINUE TO MONITOR PATIENT.
[2019-07-15 20:00] VITALS: BP 103/61
[2019-07-15] MEDS: FOLIC ACID 1 MG TABLET GT SCH (20:34)
[2019-07-15] MEDS: THIAMINE HCL 100 MG TABLET GT SCH (20:35)
[2019-07-15] MEDS: CHOLECALCIFEROL 1,000 UNIT TABLET GT SCH (20:35)
[2019-07-16] MEDS: IPRATROPIUM BROMIDE 0.5 MG/2.5 ML NEBU NEB SCH ×6 (02:32→22:30)
[2019-07-16] MEDS: ALBUTEROL SULFATE 2.5 MG/3 ML NEBU NEB SCH ×6 (02:32→22:30)
[2019-07-16] MEDS: VITAL AF 1.2 1,000 ML LIQUID GT SCH (05:00)
[2019-07-16] MEDS: BACLOFEN 10 MG TABLET GT SCH ×3 (06:23→22:44)
[2019-07-16] MEDS: MIDODRINE HCL 10 MG TABLET GT SCH ×3 (06:23→22:44)
[2019-07-16] MEDS: OMEPRAZOLE 20 MG CAPSULE.DR GT SCH (06:23)
[2019-07-16] MEDS: BACLOFEN 20 MG TABLET GT SCH ×3 (06:23→22:44)
[2019-07-16] MEDS: METOCLOPRAMIDE HCL 5 MG TABLET GT SCH ×3 (06:23→22:44)
[2019-07-16] MEDS: HYDROGEN PEROXIDE 3% 118 ML BOTTLE TP SCH ×2 (07:35→21:11)
[2019-07-16 08:07] VITALS: BP 112/57
[2019-07-16] MEDS: DESMOPRESSIN 0.1 MG TABLET GT SCH (08:17)
[2019-07-16] MEDS: PHENYTOIN 100 MG/4 ML UDC GT SCH ×2 (08:17→20:53)
[2019-07-16] MEDS: ACIDOPHILUS/BULGARICUS CHEW TAB GT SCH ×2 (08:20→20:55)
[2019-07-16] MEDS: levETIRAcetam 500 MG/5 ML LIQUID UDC GT SCH ×2 (08:20→20:56)
[2019-07-16] MEDS: FUROSEMIDE 20 MG/2 ML GT SCH (08:21)
[2019-07-16] MEDS: POTASSIUM CHLORIDE 40 MEQ/30 ML LIQUID UDC GT SCH (08:22)
[2019-07-16] MEDS: NYSTATIN CREAM 30 GM TUBE TP SCH ×2 (08:23→20:57)
[2019-07-16] MEDS: COD LIVER OIL/ZINC OXIDE OINT 113 GM TUBE TOP SCH ×2 (08:23→20:57)
--- NOTE | 2019-07-16 19:16 | NUR ---
Received pt on HT-50 ventilator with the following settings of SIMV-12, Vt-500, PEEP+5, PS-10, FIO2-2LPM bleed in, trached with Susyley#6 DCT trach, which is in the place and secure. No s/s of respiratory distress noted. Airway care done, pt responded to physical stimuli. In-line HHN tx with 2.5mg Albuterol+0.5mg Atrovent given, pt tolerated well. HME and Sx Garza changed. Pt has a gauze between her lips to prevent biting. Resus. bag and back up trach at bedside. Vent and alarms checked and reset.
[2019-07-16] MEDS: FOLIC ACID 1 MG TABLET GT SCH (20:56)
[2019-07-16] MEDS: CHOLECALCIFEROL 1,000 UNIT TABLET GT SCH (20:57)
[2019-07-16] MEDS: THIAMINE HCL 100 MG TABLET GT SCH (20:57)
[2019-07-16 21:14] VITALS: BP 94/43
[2019-07-17] MEDS: IPRATROPIUM BROMIDE 0.5 MG/2.5 ML NEBU NEB SCH ×6 (02:30→23:12)
[2019-07-17] MEDS: ALBUTEROL SULFATE 2.5 MG/3 ML NEBU NEB SCH ×6 (02:30→23:12)
[2019-07-17] MEDS: VITAL AF 1.2 1,000 ML LIQUID GT SCH (03:00)
[2019-07-17] MEDS: BACLOFEN 20 MG TABLET GT SCH ×3 (06:00→21:04)
[2019-07-17] MEDS: OMEPRAZOLE 20 MG CAPSULE.DR GT SCH (06:00)
[2019-07-17] MEDS: MIDODRINE HCL 10 MG TABLET GT SCH ×3 (06:00→21:04)
[2019-07-17] MEDS: METOCLOPRAMIDE HCL 5 MG TABLET GT SCH ×3 (06:00→21:05)
[2019-07-17] MEDS: BACLOFEN 10 MG TABLET GT SCH ×3 (06:00→21:04)
[2019-07-17 08:07] VITALS: BP 109/59
[2019-07-17] MEDS: HYDROGEN PEROXIDE 3% 118 ML BOTTLE TP SCH ×2 (09:00→20:06)
[2019-07-17] MEDS: PHENYTOIN 100 MG/4 ML UDC GT SCH ×2 (09:28→21:01)
[2019-07-17] MEDS: DESMOPRESSIN 0.1 MG TABLET GT SCH (09:28)
[2019-07-17] MEDS: levETIRAcetam 500 MG/5 ML LIQUID UDC GT SCH ×2 (09:29→21:02)
[2019-07-17] MEDS: ACIDOPHILUS/BULGARICUS CHEW TAB GT SCH ×2 (09:29→21:01)
[2019-07-17] MEDS: COD LIVER OIL/ZINC OXIDE OINT 113 GM TUBE TOP SCH ×2 (09:32→21:03)
[2019-07-17] MEDS: FUROSEMIDE 20 MG/2 ML GT SCH (09:32)
[2019-07-17] MEDS: NYSTATIN CREAM 30 GM TUBE TP SCH ×2 (09:32→21:04)
[2019-07-17] MEDS: POTASSIUM CHLORIDE 40 MEQ/30 ML LIQUID UDC GT SCH (09:32)
--- NOTE | 2019-07-17 11:57 | NUR ---
Seen and examined by DR Spaulding with new orders noted.
--- NOTE | 2019-07-17 19:44 | NUR ---
PT RECEIVED ON THE HT-50 VENTILATOR WITH THE FOLLOWING SETTINGS THAT ARE CHARTED ON THE MECHANICAL VENTILATOR NOTES. TRACH CARE DONE AND HME CHANGED. TRACH TUBE IS PATENT AND SECURED WITH TRACH TIES. SUCTIONED SMALL AMOUNTS OF THICK WHITE/YELLOW SECRETIONS. HHN GIVEN PER MD ORDERS AND TOLERATED WELL WITH NO ADVERSE REACTIONS. VENTILATOR ALARMS CHECKED AND THEY ARE ON AND LOUD. VENTILATOR IS PLUGGED IN THE RED EMERGENCY OUTLET. SPARE TRACH AND BMV IS BY BEDSIDE. PT IS TOLERATING CURRENT VENTILATOR SETTINGS WELL AT THIS TIME WITH NO SHORTNESS OF BREATH NOTED. WILL CONTINUE TO MONITOR PT THROUGHOUT THE REST OF THE SHIFT.
[2019-07-17] MEDS: FOLIC ACID 1 MG TABLET GT SCH (21:01)
[2019-07-17] MEDS: CHOLECALCIFEROL 1,000 UNIT TABLET GT SCH (21:03)
[2019-07-17] MEDS: THIAMINE HCL 100 MG TABLET GT SCH (21:03)
[2019-07-17 21:09] VITALS: BP 88/46
--- NOTE | 2019-07-17 22:25 | NUR ---
Received Dilantin level and it was very low (1.8), relayed result to Dr. Spaulding with new orders to Give extra 100mg dose toningt then increase dose to 200mg via gt every 12 hours starting tomorrow, noted and carried out.
[2019-07-18] MEDS: VITAL AF 1.2 1,000 ML LIQUID GT SCH (01:38)
[2019-07-18] MEDS: IPRATROPIUM BROMIDE 0.5 MG/2.5 ML NEBU NEB SCH ×6 (02:31→23:05)
[2019-07-18] MEDS: ALBUTEROL SULFATE 2.5 MG/3 ML NEBU NEB SCH ×6 (02:31→23:05)
[2019-07-18] MEDS: BACLOFEN 10 MG TABLET GT SCH ×3 (05:52→21:04)
[2019-07-18] MEDS: BACLOFEN 20 MG TABLET GT SCH ×3 (05:52→21:04)
[2019-07-18] MEDS: METOCLOPRAMIDE HCL 5 MG TABLET GT SCH ×3 (05:53→21:04)
[2019-07-18] MEDS: OMEPRAZOLE 20 MG CAPSULE.DR GT SCH (05:53)
[2019-07-18] MEDS: MIDODRINE HCL 10 MG TABLET GT SCH ×3 (05:53→21:04)
[2019-07-18 08:00] VITALS: BP 127/73
[2019-07-18] MEDS: DESMOPRESSIN 0.1 MG TABLET GT SCH (08:28)
[2019-07-18] MEDS: PHENYTOIN 100 MG/4 ML UDC GT SCH ×2 (08:29→21:02)
[2019-07-18] MEDS: levETIRAcetam 500 MG/5 ML LIQUID UDC GT SCH ×2 (08:30→21:02)
[2019-07-18] MEDS: ACIDOPHILUS/BULGARICUS CHEW TAB GT SCH ×2 (08:30→21:02)
[2019-07-18] MEDS: POTASSIUM CHLORIDE 40 MEQ/30 ML LIQUID UDC GT SCH (08:33)
[2019-07-18] MEDS: FUROSEMIDE 20 MG/2 ML GT SCH (08:33)
[2019-07-18] MEDS: NYSTATIN CREAM 30 GM TUBE TP SCH ×2 (08:33→21:04)
[2019-07-18] MEDS: COD LIVER OIL/ZINC OXIDE OINT 113 GM TUBE TOP SCH ×2 (08:33→21:04)
[2019-07-18] MEDS: HYDROGEN PEROXIDE 3% 118 ML BOTTLE TP SCH ×2 (08:54→21:49)
[2019-07-18 20:30] VITALS: BP 85/36
[2019-07-18] MEDS: FOLIC ACID 1 MG TABLET GT SCH (21:02)
[2019-07-18] MEDS: THIAMINE HCL 100 MG TABLET GT SCH (21:03)
[2019-07-18] MEDS: CHOLECALCIFEROL 1,000 UNIT TABLET GT SCH (21:04)
[2019-07-19] MEDS: ALBUTEROL SULFATE 2.5 MG/3 ML NEBU NEB SCH ×6 (03:05→23:30)
[2019-07-19] MEDS: IPRATROPIUM BROMIDE 0.5 MG/2.5 ML NEBU NEB SCH ×6 (03:05→23:30)
[2019-07-19] MEDS: MIDODRINE HCL 10 MG TABLET GT SCH ×3 (05:18→22:58)
[2019-07-19] MEDS: BACLOFEN 20 MG TABLET GT SCH ×3 (05:18→22:57)
[2019-07-19] MEDS: BACLOFEN 10 MG TABLET GT SCH ×3 (05:18→22:57)
[2019-07-19] MEDS: METOCLOPRAMIDE HCL 5 MG TABLET GT SCH ×3 (05:19→22:58)
[2019-07-19] MEDS: OMEPRAZOLE 20 MG CAPSULE.DR GT SCH (05:19)
[2019-07-19 08:14] VITALS: BP 91/54
[2019-07-19] MEDS: HYDROGEN PEROXIDE 3% 118 ML BOTTLE TP SCH ×2 (09:05→20:25)
[2019-07-19] MEDS: FUROSEMIDE 20 MG/2 ML GT SCH (09:14)
[2019-07-19] MEDS: NYSTATIN CREAM 30 GM TUBE TP SCH ×2 (09:14→20:41)
[2019-07-19] MEDS: ACIDOPHILUS/BULGARICUS CHEW TAB GT SCH ×2 (09:14→20:40)
[2019-07-19] MEDS: levETIRAcetam 500 MG/5 ML LIQUID UDC GT SCH ×2 (09:14→20:40)
[2019-07-19] MEDS: DESMOPRESSIN 0.1 MG TABLET GT SCH (09:14)
[2019-07-19] MEDS: PHENYTOIN 100 MG/4 ML UDC GT SCH ×2 (09:14→20:39)
[2019-07-19] MEDS: POTASSIUM CHLORIDE 40 MEQ/30 ML LIQUID UDC GT SCH (09:14)
[2019-07-19] MEDS: COD LIVER OIL/ZINC OXIDE OINT 113 GM TUBE TOP SCH ×2 (09:14→20:41)
--- NOTE | 2019-07-19 18:26 | NUR ---
PT HAS LOW GRADE TEMP 94.5 R,COVER WITH THE WARMING BLANKET ,SHOAIB GUTIERREZER ORDERED.
--- NOTE | 2019-07-19 19:30 | NUR ---
Received patient on alexandru hugger for low grade temperature, no signs of any distress, skin is cool to touch, kept clean and dry, will continue to monitor.
[2019-07-19] MEDS: CHOLECALCIFEROL 1,000 UNIT TABLET GT SCH (20:40)
[2019-07-19] MEDS: THIAMINE HCL 100 MG TABLET GT SCH (20:40)
[2019-07-19] MEDS: FOLIC ACID 1 MG TABLET GT SCH (20:40)
[2019-07-19 21:30] VITALS: BP 92/52
--- NOTE | 2019-07-19 22:30 | NUR ---
Temperature is now 97.3, patient is asleep and no signs of any distress, kept clean and comfortable.
[2019-07-20] MEDS: IPRATROPIUM BROMIDE 0.5 MG/2.5 ML NEBU NEB SCH ×6 (02:33→22:35)
[2019-07-20] MEDS: ALBUTEROL SULFATE 2.5 MG/3 ML NEBU NEB SCH ×6 (02:33→22:35)
[2019-07-20] MEDS: BACLOFEN 10 MG TABLET GT SCH ×3 (05:22→21:36)
[2019-07-20] MEDS: BACLOFEN 20 MG TABLET GT SCH ×3 (05:22→21:36)
[2019-07-20] MEDS: MIDODRINE HCL 10 MG TABLET GT SCH ×3 (05:22→21:36)
[2019-07-20] MEDS: OMEPRAZOLE 20 MG CAPSULE.DR GT SCH (05:22)
[2019-07-20] MEDS: METOCLOPRAMIDE HCL 5 MG TABLET GT SCH ×3 (05:22→21:36)
[2019-07-20] MEDS: VITAL AF 1.2 1,000 ML LIQUID GT SCH (05:23)
[2019-07-20 08:00] VITALS: BP 96/55
[2019-07-20] MEDS: PHENYTOIN 100 MG/4 ML UDC GT SCH ×2 (08:26→21:35)
[2019-07-20] MEDS: DESMOPRESSIN 0.1 MG TABLET GT SCH (08:26)
[2019-07-20] MEDS: ACIDOPHILUS/BULGARICUS CHEW TAB GT SCH ×2 (08:28→21:35)
[2019-07-20] MEDS: levETIRAcetam 500 MG/5 ML LIQUID UDC GT SCH ×2 (08:28→21:35)
[2019-07-20] MEDS: FUROSEMIDE 20 MG/2 ML GT SCH (08:30)
[2019-07-20] MEDS: POTASSIUM CHLORIDE 40 MEQ/30 ML LIQUID UDC GT SCH (08:30)
[2019-07-20] MEDS: COD LIVER OIL/ZINC OXIDE OINT 113 GM TUBE TOP SCH ×2 (08:31→21:36)
[2019-07-20] MEDS: NYSTATIN CREAM 30 GM TUBE TP SCH ×2 (08:31→21:36)
[2019-07-20] MEDS: HYDROGEN PEROXIDE 3% 118 ML BOTTLE TP SCH ×2 (09:00→18:56)
--- NOTE | 2019-07-20 15:09 | NUR ---
Seen and examined by Marguerite Chicas , with new orders noted.
[2019-07-20] MEDS: CHOLECALCIFEROL 1,000 UNIT TABLET GT SCH (21:35)
[2019-07-20] MEDS: FOLIC ACID 1 MG TABLET GT SCH (21:35)
[2019-07-20] MEDS: THIAMINE HCL 100 MG TABLET GT SCH (21:35)
[2019-07-20 22:59] VITALS: BP 127/67
[2019-07-21] MEDS: VITAL AF 1.2 1,000 ML LIQUID GT SCH (01:15)
[2019-07-21] MEDS: IPRATROPIUM BROMIDE 0.5 MG/2.5 ML NEBU NEB SCH ×6 (03:10→23:20)
[2019-07-21] MEDS: ALBUTEROL SULFATE 2.5 MG/3 ML NEBU NEB SCH ×6 (03:10→23:20)
[2019-07-21] MEDS: BACLOFEN 10 MG TABLET GT SCH ×3 (05:04→21:07)
[2019-07-21] MEDS: BACLOFEN 20 MG TABLET GT SCH ×3 (05:04→21:07)
[2019-07-21] MEDS: MIDODRINE HCL 10 MG TABLET GT SCH ×3 (05:05→21:07)
[2019-07-21] MEDS: OMEPRAZOLE 20 MG CAPSULE.DR GT SCH (05:05)
[2019-07-21] MEDS: METOCLOPRAMIDE HCL 5 MG TABLET GT SCH ×3 (05:05→21:07)
[2019-07-21 06:51] LABS: BASOPHILS % (AUTO) 0.6 % (0.0-2.0); EOSINOPHILS # (AUTO) 0.6 K/uL (0.0-0.7); HEMATOCRIT 30.7 % (31.2-41.9); HEMOGLOBIN 10.4 g/dL (10.9-14.3); LYMPHOCYTES # (AUTO) 1.7 K/uL (20.0-40.0); LYMPHOCYTES % (AUTO) 25.8 % (20.5-51.5); MEAN CORPUSCULAR HEMOGLOBIN 31.5 uug (24.7-32.8); MEAN CORPUSCULAR HGB CONC 34 g/dL (32.3-35.6); MEAN CORPUSCULAR VOLUME 92.9 fL (75.5-95.3); MONOCYTES # (AUTO) 0.4 K/uL (2.0-10.0); MONOCYTES % (AUTO) 5.8 % (0.0-11.0); NEUTROPHILS % (AUTO) 58.8 % (38.5-71.5); PLATELET COUNT (AUTO) 255 K/uL (179-408); RED BLOOD CELL COUNT(AUTO) 3.31 MIL/uL (3.63-4.92); WHITE BLOOD COUNT (AUTO) 6.7 K/uL (3.8-11.8)
[2019-07-21 07:15] LABS: BILIRUBIN,TOTAL 0.2 mg/dL (0.2-1.0); CREATININE 0.6 mg/dL (0.6-1.3); POTASSIUM 4.1 mmol/L (3.5-5.1); TOTAL PROTEIN, SERUM 6.1 g/dL (6.4-8.2)
[2019-07-21 08:00] VITALS: BP 102/61
[2019-07-21] MEDS: HYDROGEN PEROXIDE 3% 118 ML BOTTLE TP SCH ×2 (08:06→20:22)
[2019-07-21] MEDS: DESMOPRESSIN 0.1 MG TABLET GT SCH (08:30)
[2019-07-21] MEDS: ACIDOPHILUS/BULGARICUS CHEW TAB GT SCH ×2 (08:31→20:54)
[2019-07-21] MEDS: PHENYTOIN 100 MG/4 ML UDC GT SCH ×2 (08:31→20:53)
[2019-07-21] MEDS: levETIRAcetam 500 MG/5 ML LIQUID UDC GT SCH ×2 (08:33→20:56)
[2019-07-21] MEDS: POTASSIUM CHLORIDE 40 MEQ/30 ML LIQUID UDC GT SCH (08:34)
[2019-07-21] MEDS: COD LIVER OIL/ZINC OXIDE OINT 113 GM TUBE TOP SCH ×2 (08:36→20:56)
[2019-07-21] MEDS: FUROSEMIDE 20 MG/2 ML GT SCH (08:36)
[2019-07-21] MEDS: FOLIC ACID 1 MG TABLET GT SCH (20:55)
[2019-07-21] MEDS: THIAMINE HCL 100 MG TABLET GT SCH (20:56)
[2019-07-21] MEDS: CHOLECALCIFEROL 1,000 UNIT TABLET GT SCH (20:56)
[2019-07-21 22:25] VITALS: BP 98/52
[2019-07-22] MEDS: VITAL AF 1.2 1,000 ML LIQUID GT SCH (01:09)
[2019-07-22] MEDS: ALBUTEROL SULFATE 2.5 MG/3 ML NEBU NEB SCH ×6 (03:01→23:01)
[2019-07-22] MEDS: IPRATROPIUM BROMIDE 0.5 MG/2.5 ML NEBU NEB SCH ×6 (03:01→23:01)
[2019-07-22] MEDS: OMEPRAZOLE 20 MG CAPSULE.DR GT SCH (05:20)
[2019-07-22] MEDS: BACLOFEN 20 MG TABLET GT SCH ×3 (05:20→21:30)
[2019-07-22] MEDS: BACLOFEN 10 MG TABLET GT SCH ×3 (05:20→21:30)
[2019-07-22] MEDS: METOCLOPRAMIDE HCL 5 MG TABLET GT SCH ×3 (05:20→21:30)
[2019-07-22] MEDS: MIDODRINE HCL 10 MG TABLET GT SCH ×3 (05:20→21:30)
[2019-07-22] MEDS: HYDROGEN PEROXIDE 3% 118 ML BOTTLE TP SCH ×2 (09:35→20:26)
[2019-07-22] MEDS: ACIDOPHILUS/BULGARICUS CHEW TAB GT SCH ×2 (09:54→20:55)
[2019-07-22] MEDS: DESMOPRESSIN 0.1 MG TABLET GT SCH (09:54)
[2019-07-22] MEDS: levETIRAcetam 500 MG/5 ML LIQUID UDC GT SCH ×2 (09:54→20:55)
[2019-07-22] MEDS: POTASSIUM CHLORIDE 40 MEQ/30 ML LIQUID UDC GT SCH (09:54)
[2019-07-22] MEDS: PHENYTOIN 100 MG/4 ML UDC GT SCH ×2 (09:54→20:55)
[2019-07-22] MEDS: FUROSEMIDE 20 MG/2 ML GT SCH (09:54)
[2019-07-22] MEDS: COD LIVER OIL/ZINC OXIDE OINT 113 GM TUBE TOP SCH ×2 (09:54→20:55)
[2019-07-22 11:13] VITALS: BP 89/46
[2019-07-22] MEDS: THIAMINE HCL 100 MG TABLET GT SCH (20:55)
[2019-07-22] MEDS: FOLIC ACID 1 MG TABLET GT SCH (20:55)
[2019-07-22] MEDS: CHOLECALCIFEROL 1,000 UNIT TABLET GT SCH (20:55)
[2019-07-22 22:10] VITALS: BP 100/65
[2019-07-23] MEDS: VITAL AF 1.2 1,000 ML LIQUID GT SCH (02:51)
[2019-07-23] MEDS: ALBUTEROL SULFATE 2.5 MG/3 ML NEBU NEB SCH ×6 (03:20→22:55)
[2019-07-23] MEDS: IPRATROPIUM BROMIDE 0.5 MG/2.5 ML NEBU NEB SCH ×6 (03:20→22:55)
[2019-07-23] MEDS: BACLOFEN 20 MG TABLET GT SCH ×3 (06:08→21:05)
[2019-07-23] MEDS: OMEPRAZOLE 20 MG CAPSULE.DR GT SCH (06:08)
[2019-07-23] MEDS: METOCLOPRAMIDE HCL 5 MG TABLET GT SCH ×3 (06:08→21:06)
[2019-07-23] MEDS: BACLOFEN 10 MG TABLET GT SCH ×3 (06:08→21:05)
[2019-07-23] MEDS: MIDODRINE HCL 10 MG TABLET GT SCH ×3 (06:08→21:06)
[2019-07-23] MEDS: HYDROGEN PEROXIDE 3% 118 ML BOTTLE TP SCH ×2 (08:12→21:11)
[2019-07-23] MEDS: DESMOPRESSIN 0.1 MG TABLET GT SCH (09:06)
[2019-07-23] MEDS: PHENYTOIN 100 MG/4 ML UDC GT SCH ×2 (09:07→21:04)
[2019-07-23] MEDS: ACIDOPHILUS/BULGARICUS CHEW TAB GT SCH ×2 (09:08→21:04)
[2019-07-23] MEDS: levETIRAcetam 500 MG/5 ML LIQUID UDC GT SCH ×2 (09:08→21:05)
[2019-07-23] MEDS: FUROSEMIDE 20 MG/2 ML GT SCH (09:08)
[2019-07-23] MEDS: POTASSIUM CHLORIDE 40 MEQ/30 ML LIQUID UDC GT SCH (09:09)
[2019-07-23] MEDS: COD LIVER OIL/ZINC OXIDE OINT 113 GM TUBE TOP SCH ×2 (09:10→21:05)
--- NOTE | 2019-07-23 09:46 | NUR ---
SEEN BY DR. WORTHINGTON AND WITH NNO.
--- NOTE | 2019-07-23 09:48 | NUR ---
SEEN BY DR. WORTHINGTON AND WITH NNO.
[2019-07-23 11:25] VITALS: BP 110/60
[2019-07-23] MEDS: FOLIC ACID 1 MG TABLET GT SCH (21:04)
[2019-07-23] MEDS: THIAMINE HCL 100 MG TABLET GT SCH (21:05)
[2019-07-23] MEDS: CHOLECALCIFEROL 1,000 UNIT TABLET GT SCH (21:05)
[2019-07-23 22:48] VITALS: BP 112/64
[2019-07-24] MEDS: IPRATROPIUM BROMIDE 0.5 MG/2.5 ML NEBU NEB SCH ×6 (03:39→23:26)
[2019-07-24] MEDS: ALBUTEROL SULFATE 2.5 MG/3 ML NEBU NEB SCH ×6 (03:40→23:26)
[2019-07-24] MEDS: VITAL AF 1.2 1,000 ML LIQUID GT SCH (04:38)
[2019-07-24] MEDS: BACLOFEN 20 MG TABLET GT SCH ×3 (06:08→21:38)
[2019-07-24] MEDS: METOCLOPRAMIDE HCL 5 MG TABLET GT SCH ×3 (06:08→21:39)
[2019-07-24] MEDS: MIDODRINE HCL 10 MG TABLET GT SCH ×3 (06:08→21:39)
[2019-07-24] MEDS: BACLOFEN 10 MG TABLET GT SCH ×3 (06:08→21:38)
[2019-07-24] MEDS: OMEPRAZOLE 20 MG CAPSULE.DR GT SCH (06:08)
[2019-07-24 08:00] VITALS: BP 110/50
[2019-07-24] MEDS: HYDROGEN PEROXIDE 3% 118 ML BOTTLE TP SCH ×2 (09:00→20:29)
[2019-07-24] MEDS: DESMOPRESSIN 0.1 MG TABLET GT SCH (09:18)
[2019-07-24] MEDS: ACIDOPHILUS/BULGARICUS CHEW TAB GT SCH ×2 (09:19→21:35)
[2019-07-24] MEDS: PHENYTOIN 100 MG/4 ML UDC GT SCH ×2 (09:19→21:38)
[2019-07-24] MEDS: levETIRAcetam 500 MG/5 ML LIQUID UDC GT SCH ×2 (09:20→21:37)
[2019-07-24] MEDS: POTASSIUM CHLORIDE 40 MEQ/30 ML LIQUID UDC GT SCH (09:21)
[2019-07-24] MEDS: FUROSEMIDE 20 MG/2 ML GT SCH (09:21)
[2019-07-24] MEDS: COD LIVER OIL/ZINC OXIDE OINT 113 GM TUBE TOP SCH ×2 (09:22→21:38)
[2019-07-24] MEDS: FOLIC ACID 1 MG TABLET GT SCH (21:35)
[2019-07-24] MEDS: THIAMINE HCL 100 MG TABLET GT SCH (21:37)
[2019-07-24] MEDS: CHOLECALCIFEROL 1,000 UNIT TABLET GT SCH (21:38)
[2019-07-24 22:52] VITALS: BP 100/54
[2019-07-25] MEDS: VITAL AF 1.2 1,000 ML LIQUID GT SCH (01:08)
[2019-07-25] MEDS: IPRATROPIUM BROMIDE 0.5 MG/2.5 ML NEBU NEB SCH ×6 (02:35→22:40)
[2019-07-25] MEDS: ALBUTEROL SULFATE 2.5 MG/3 ML NEBU NEB SCH ×6 (02:35→22:40)
[2019-07-25] MEDS: BACLOFEN 20 MG TABLET GT SCH ×3 (06:12→22:09)
[2019-07-25] MEDS: METOCLOPRAMIDE HCL 5 MG TABLET GT SCH ×3 (06:12→22:09)
[2019-07-25] MEDS: OMEPRAZOLE 20 MG CAPSULE.DR GT SCH (06:12)
[2019-07-25] MEDS: MIDODRINE HCL 10 MG TABLET GT SCH ×3 (06:12→22:09)
[2019-07-25] MEDS: BACLOFEN 10 MG TABLET GT SCH ×3 (06:12→22:08)
[2019-07-25] MEDS: HYDROGEN PEROXIDE 3% 118 ML BOTTLE TP SCH ×2 (08:19→21:13)
[2019-07-25 08:30] VITALS: BP 107/58
[2019-07-25] MEDS: ACIDOPHILUS/BULGARICUS CHEW TAB GT SCH ×2 (08:52→20:26)
[2019-07-25] MEDS: PHENYTOIN 100 MG/4 ML UDC GT SCH ×2 (08:52→20:26)
[2019-07-25] MEDS: levETIRAcetam 500 MG/5 ML LIQUID UDC GT SCH ×2 (08:52→20:26)
[2019-07-25] MEDS: FUROSEMIDE 20 MG/2 ML GT SCH (08:52)
[2019-07-25] MEDS: COD LIVER OIL/ZINC OXIDE OINT 113 GM TUBE TOP SCH ×2 (08:52→20:28)
[2019-07-25] MEDS: DESMOPRESSIN 0.1 MG TABLET GT SCH (08:52)
[2019-07-25] MEDS: POTASSIUM CHLORIDE 40 MEQ/30 ML LIQUID UDC GT SCH (08:52)
--- NOTE | 2019-07-25 19:11 | NUR ---
Received pt on HT-50 ventilator with the following settings of SIMV-12, Vt-500, PEEP+5, PS-10, FIO2-2LPM bleed in, trached with Shiley#6 DCT trach, which is in the place and secure. No s/s of respiratory distress noted. Airway care done, pt responded to physical stimuli. In-line HHN tx with 2.5mg Albuterol+0.5mg Atrovent given, pt tolerated well. Resus. bag and back up trach at bedside. Vent and alarms checked and reset.
[2019-07-25] MEDS: FOLIC ACID 1 MG TABLET GT SCH (20:26)
[2019-07-25] MEDS: THIAMINE HCL 100 MG TABLET GT SCH (20:27)
[2019-07-25] MEDS: CHOLECALCIFEROL 1,000 UNIT TABLET GT SCH (20:27)
[2019-07-25 20:48] VITALS: BP 99/44
[2019-07-26] MEDS: ALBUTEROL SULFATE 2.5 MG/3 ML NEBU NEB SCH ×6 (02:40→23:03)
[2019-07-26] MEDS: IPRATROPIUM BROMIDE 0.5 MG/2.5 ML NEBU NEB SCH ×6 (02:40→23:03)
[2019-07-26] MEDS: OMEPRAZOLE 20 MG CAPSULE.DR GT SCH (05:09)
[2019-07-26] MEDS: BACLOFEN 20 MG TABLET GT SCH ×3 (05:09→21:10)
[2019-07-26] MEDS: BACLOFEN 10 MG TABLET GT SCH ×3 (05:09→21:10)
[2019-07-26] MEDS: MIDODRINE HCL 10 MG TABLET GT SCH ×3 (05:09→21:11)
[2019-07-26] MEDS: VITAL AF 1.2 1,000 ML LIQUID GT SCH ×2 (05:09→13:01)
[2019-07-26] MEDS: METOCLOPRAMIDE HCL 5 MG TABLET GT SCH ×3 (05:09→21:11)
[2019-07-26 07:51] VITALS: BP 104/74
[2019-07-26] MEDS: HYDROGEN PEROXIDE 3% 118 ML BOTTLE TP SCH ×2 (09:00→21:21)
[2019-07-26] MEDS: DESMOPRESSIN 0.1 MG TABLET GT SCH (09:18)
[2019-07-26] MEDS: POTASSIUM CHLORIDE 40 MEQ/30 ML LIQUID UDC GT SCH (09:19)
[2019-07-26] MEDS: FUROSEMIDE 20 MG/2 ML GT SCH (09:19)
[2019-07-26] MEDS: ACIDOPHILUS/BULGARICUS CHEW TAB GT SCH ×2 (09:19→21:08)
[2019-07-26] MEDS: PHENYTOIN 100 MG/4 ML UDC GT SCH ×2 (09:19→21:08)
[2019-07-26] MEDS: levETIRAcetam 500 MG/5 ML LIQUID UDC GT SCH ×2 (09:19→21:08)
[2019-07-26] MEDS: COD LIVER OIL/ZINC OXIDE OINT 113 GM TUBE TOP SCH ×2 (09:20→21:09)
--- NOTE | 2019-07-26 14:46 | NUR ---
Seen and examined by Marguerite Chicas,no new orders noted.
[2019-07-26 20:00] VITALS: BP 110/69
[2019-07-26] MEDS: FOLIC ACID 1 MG TABLET GT SCH (21:08)
[2019-07-26] MEDS: THIAMINE HCL 100 MG TABLET GT SCH (21:09)
[2019-07-26] MEDS: CHOLECALCIFEROL 1,000 UNIT TABLET GT SCH (21:09)
[2019-07-27] MEDS: ALBUTEROL SULFATE 2.5 MG/3 ML NEBU NEB SCH ×6 (03:04→22:40)
[2019-07-27] MEDS: IPRATROPIUM BROMIDE 0.5 MG/2.5 ML NEBU NEB SCH ×6 (03:04→22:40)
[2019-07-27] MEDS: MIDODRINE HCL 10 MG TABLET GT SCH ×3 (06:26→22:32)
[2019-07-27] MEDS: OMEPRAZOLE 20 MG CAPSULE.DR GT SCH (06:26)
[2019-07-27] MEDS: BACLOFEN 10 MG TABLET GT SCH ×3 (06:26→22:32)
[2019-07-27] MEDS: BACLOFEN 20 MG TABLET GT SCH ×3 (06:26→22:32)
[2019-07-27] MEDS: METOCLOPRAMIDE HCL 5 MG TABLET GT SCH ×3 (06:26→22:32)
[2019-07-27 07:04] LABS: PHENYTOIN (DILANTIN) 9.9 ug/mL (10.0-20.0)
[2019-07-27] MEDS: PHENYTOIN 100 MG/4 ML UDC GT SCH ×2 (08:02→20:47)
[2019-07-27] MEDS: DESMOPRESSIN 0.1 MG TABLET GT SCH (08:02)
[2019-07-27] MEDS: ACIDOPHILUS/BULGARICUS CHEW TAB GT SCH ×2 (08:04→20:47)
[2019-07-27] MEDS: levETIRAcetam 500 MG/5 ML LIQUID UDC GT SCH ×2 (08:04→20:48)
[2019-07-27] MEDS: FUROSEMIDE 20 MG/2 ML GT SCH (08:05)
[2019-07-27] MEDS: POTASSIUM CHLORIDE 40 MEQ/30 ML LIQUID UDC GT SCH (08:05)
[2019-07-27] MEDS: COD LIVER OIL/ZINC OXIDE OINT 113 GM TUBE TOP SCH ×2 (08:06→20:49)
[2019-07-27] MEDS: HYDROGEN PEROXIDE 3% 118 ML BOTTLE TP SCH ×2 (09:00→21:14)
[2019-07-27 10:59] VITALS: BP 105/69
[2019-07-27 20:00] VITALS: BP 93/58
[2019-07-27] MEDS: FOLIC ACID 1 MG TABLET GT SCH (20:47)
[2019-07-27] MEDS: THIAMINE HCL 100 MG TABLET GT SCH (20:49)
[2019-07-27] MEDS: CHOLECALCIFEROL 1,000 UNIT TABLET GT SCH (20:49)
[2019-07-27] MEDS: VITAL AF 1.2 1,000 ML LIQUID GT SCH (22:00)
[2019-07-28] MEDS: IPRATROPIUM BROMIDE 0.5 MG/2.5 ML NEBU NEB SCH ×6 (02:40→22:40)
[2019-07-28] MEDS: ALBUTEROL SULFATE 2.5 MG/3 ML NEBU NEB SCH ×6 (02:40→22:40)
[2019-07-28] MEDS: METOCLOPRAMIDE HCL 5 MG TABLET GT SCH ×3 (05:48→21:07)
[2019-07-28] MEDS: MIDODRINE HCL 10 MG TABLET GT SCH ×3 (05:48→21:07)
[2019-07-28] MEDS: OMEPRAZOLE 20 MG CAPSULE.DR GT SCH (05:48)
[2019-07-28] MEDS: BACLOFEN 20 MG TABLET GT SCH ×3 (05:48→21:07)
[2019-07-28] MEDS: BACLOFEN 10 MG TABLET GT SCH ×3 (05:48→21:06)
[2019-07-28] MEDS: HYDROGEN PEROXIDE 3% 118 ML BOTTLE TP SCH ×2 (07:33→21:19)
[2019-07-28] MEDS: DESMOPRESSIN 0.1 MG TABLET GT SCH (08:59)
[2019-07-28] MEDS: PHENYTOIN 100 MG/4 ML UDC GT SCH ×2 (08:59→21:01)
[2019-07-28] MEDS: ACIDOPHILUS/BULGARICUS CHEW TAB GT SCH ×2 (09:00→21:01)
[2019-07-28] MEDS: POTASSIUM CHLORIDE 40 MEQ/30 ML LIQUID UDC GT SCH (09:01)
[2019-07-28] MEDS: levETIRAcetam 500 MG/5 ML LIQUID UDC GT SCH ×2 (09:01→21:02)
[2019-07-28] MEDS: FUROSEMIDE 20 MG/2 ML GT SCH (09:01)
[2019-07-28] MEDS: COD LIVER OIL/ZINC OXIDE OINT 113 GM TUBE TOP SCH ×2 (09:02→21:06)
[2019-07-28 14:30] VITALS: BP 130/75
--- NOTE | 2019-07-28 19:10 | NUR ---
Received pt on HT-50 ventilator with the following settings of SIMV-12, Vt-500, PEEP+5, PS-10, FIO2-2LPM bleed in, trached with Susyley#6 DCT trach, which is in the place and secure. No respiratory distress noted. Airway care done, pt responded to physical stimuli. In-line HHN tx with 2.5mg Albuterol+0.5mg Atrovent given, pt tolerated well. HME changed. Pt has a gauze between her lips to prevent biting. Resus. bag and back up trach at bedside. Vent and alarms checked and reset.
[2019-07-28 20:00] VITALS: BP 99/60
[2019-07-28] MEDS: FOLIC ACID 1 MG TABLET GT SCH (21:01)
[2019-07-28] MEDS: THIAMINE HCL 100 MG TABLET GT SCH (21:05)
[2019-07-28] MEDS: CHOLECALCIFEROL 1,000 UNIT TABLET GT SCH (21:06)
[2019-07-29] MEDS: VITAL AF 1.2 1,000 ML LIQUID GT SCH ×2 (02:00→23:11)
[2019-07-29] MEDS: IPRATROPIUM BROMIDE 0.5 MG/2.5 ML NEBU NEB SCH ×6 (02:40→22:35)
[2019-07-29] MEDS: ALBUTEROL SULFATE 2.5 MG/3 ML NEBU NEB SCH ×6 (02:40→22:35)
[2019-07-29] MEDS: MIDODRINE HCL 10 MG TABLET GT SCH ×3 (06:20→21:11)
[2019-07-29] MEDS: METOCLOPRAMIDE HCL 5 MG TABLET GT SCH ×3 (06:20→21:11)
[2019-07-29] MEDS: BACLOFEN 10 MG TABLET GT SCH ×3 (06:20→21:11)
[2019-07-29] MEDS: OMEPRAZOLE 20 MG CAPSULE.DR GT SCH (06:20)
[2019-07-29] MEDS: BACLOFEN 20 MG TABLET GT SCH ×3 (06:20→21:11)
[2019-07-29] MEDS: HYDROGEN PEROXIDE 3% 118 ML BOTTLE TP SCH ×2 (07:44→19:05)
[2019-07-29] MEDS: DESMOPRESSIN 0.1 MG TABLET GT SCH (09:00)
[2019-07-29] MEDS: PHENYTOIN 100 MG/4 ML UDC GT SCH ×2 (09:01→20:36)
[2019-07-29] MEDS: ACIDOPHILUS/BULGARICUS CHEW TAB GT SCH ×2 (09:02→20:36)
[2019-07-29] MEDS: levETIRAcetam 500 MG/5 ML LIQUID UDC GT SCH ×2 (09:03→20:36)
[2019-07-29] MEDS: FUROSEMIDE 20 MG/2 ML GT SCH (09:03)
[2019-07-29] MEDS: COD LIVER OIL/ZINC OXIDE OINT 113 GM TUBE TOP SCH ×2 (09:04→20:37)
[2019-07-29] MEDS: POTASSIUM CHLORIDE 40 MEQ/30 ML LIQUID UDC GT SCH (09:04)
[2019-07-29 10:52] VITALS: BP 116/68
--- NOTE | 2019-07-29 15:23 | NUR ---
JOSUÉ contacted patient's family contracts representative Bernardino [phone] to schedule a time to meet in order to review and obtain signatures on patient's annual admission paperwork. Bernardino stated she will try to come in next week, and will contact JOSUÉ to schedule a day/time based on her work schedule. SW agreed. SW to follow up with Bernardino if JOSUÉ does not hear back from Bernardino.
[2019-07-29] MEDS: THIAMINE HCL 100 MG TABLET GT SCH (20:36)
[2019-07-29] MEDS: FOLIC ACID 1 MG TABLET GT SCH (20:36)
[2019-07-29] MEDS: CHOLECALCIFEROL 1,000 UNIT TABLET GT SCH (20:36)
[2019-07-29 22:26] VITALS: BP 100/65
[2019-07-30] MEDS: ALBUTEROL SULFATE 2.5 MG/3 ML NEBU NEB SCH ×6 (02:35→22:40)
[2019-07-30] MEDS: IPRATROPIUM BROMIDE 0.5 MG/2.5 ML NEBU NEB SCH ×6 (02:35→22:40)
[2019-07-30] MEDS: METOCLOPRAMIDE HCL 5 MG TABLET GT SCH ×3 (05:37→21:20)
[2019-07-30] MEDS: BACLOFEN 20 MG TABLET GT SCH ×3 (05:37→21:20)
[2019-07-30] MEDS: MIDODRINE HCL 10 MG TABLET GT SCH ×3 (05:37→21:20)
[2019-07-30] MEDS: OMEPRAZOLE 20 MG CAPSULE.DR GT SCH (05:37)
[2019-07-30] MEDS: BACLOFEN 10 MG TABLET GT SCH ×3 (05:37→21:20)
[2019-07-30 08:06] VITALS: BP 92/58
[2019-07-30] MEDS: DESMOPRESSIN 0.1 MG TABLET GT SCH (09:20)
[2019-07-30] MEDS: PHENYTOIN 100 MG/4 ML UDC GT SCH ×2 (09:20→20:34)
[2019-07-30] MEDS: ACIDOPHILUS/BULGARICUS CHEW TAB GT SCH ×2 (09:20→20:34)
[2019-07-30] MEDS: levETIRAcetam 500 MG/5 ML LIQUID UDC GT SCH ×2 (09:21→20:34)
[2019-07-30] MEDS: POTASSIUM CHLORIDE 40 MEQ/30 ML LIQUID UDC GT SCH (09:21)
[2019-07-30] MEDS: FUROSEMIDE 20 MG/2 ML GT SCH (09:21)
[2019-07-30] MEDS: COD LIVER OIL/ZINC OXIDE OINT 113 GM TUBE TOP SCH ×2 (09:22→20:34)
[2019-07-30] MEDS: HYDROGEN PEROXIDE 3% 118 ML BOTTLE TP SCH ×2 (09:30→20:51)
--- NOTE | 2019-07-30 18:59 | NUR ---
Received pt on HT-50 ventilator with the following settings of SIMV-12, Vt-500, PEEP+5, PS-10, FIO2-2LPM bleed in, trached with Susyley#6 DCT trach, which is in the place and secure. No s/s of respiratory distress noted. Airway care done, pt responded to physical stimuli. In-line HHN tx with 2.5mg Albuterol+0.5mg Atrovent given, pt tolerated well. HME, HHN adaptor and Sx Garza changed. Pt has a gauze between her lips to prevent biting. Resus. bag and back up trach at bedside. Vent and alarms checked and reset.
[2019-07-30] MEDS: THIAMINE HCL 100 MG TABLET GT SCH (20:34)
[2019-07-30] MEDS: CHOLECALCIFEROL 1,000 UNIT TABLET GT SCH (20:34)
[2019-07-30] MEDS: FOLIC ACID 1 MG TABLET GT SCH (20:34)
[2019-07-30] MEDS: VITAL AF 1.2 1,000 ML LIQUID GT SCH (21:30)
[2019-07-30 22:18] VITALS: BP 111/64
[2019-07-31] MEDS: ALBUTEROL SULFATE 2.5 MG/3 ML NEBU NEB SCH ×6 (02:40→22:40)
[2019-07-31] MEDS: IPRATROPIUM BROMIDE 0.5 MG/2.5 ML NEBU NEB SCH ×6 (02:40→22:39)
[2019-07-31] MEDS: BACLOFEN 10 MG TABLET GT SCH ×3 (05:31→21:06)
[2019-07-31] MEDS: BACLOFEN 20 MG TABLET GT SCH ×3 (05:31→21:07)
[2019-07-31] MEDS: OMEPRAZOLE 20 MG CAPSULE.DR GT SCH (05:32)
[2019-07-31] MEDS: METOCLOPRAMIDE HCL 5 MG TABLET GT SCH ×3 (05:32→21:07)
[2019-07-31] MEDS: MIDODRINE HCL 10 MG TABLET GT SCH ×3 (05:32→21:07)
[2019-07-31 08:05] VITALS: BP 100/64
[2019-07-31] MEDS: HYDROGEN PEROXIDE 3% 118 ML BOTTLE TP SCH ×2 (08:05→21:11)
[2019-07-31] MEDS: DESMOPRESSIN 0.1 MG TABLET GT SCH (08:50)
[2019-07-31] MEDS: PHENYTOIN 100 MG/4 ML UDC GT SCH ×2 (08:51→20:36)
[2019-07-31] MEDS: levETIRAcetam 500 MG/5 ML LIQUID UDC GT SCH ×2 (08:53→20:36)
[2019-07-31] MEDS: FUROSEMIDE 20 MG/2 ML GT SCH (08:53)
[2019-07-31] MEDS: ACIDOPHILUS/BULGARICUS CHEW TAB GT SCH ×2 (08:53→20:36)
[2019-07-31] MEDS: POTASSIUM CHLORIDE 40 MEQ/30 ML LIQUID UDC GT SCH (08:53)
[2019-07-31] MEDS: COD LIVER OIL/ZINC OXIDE OINT 113 GM TUBE TOP SCH ×2 (08:54→20:36)
[2019-07-31] MEDS: THIAMINE HCL 100 MG TABLET GT SCH (20:36)
[2019-07-31] MEDS: CHOLECALCIFEROL 1,000 UNIT TABLET GT SCH (20:36)
[2019-07-31] MEDS: FOLIC ACID 1 MG TABLET GT SCH (20:36)
[2019-07-31 22:59] VITALS: BP 118/72
[2019-08-01] MEDS: ALBUTEROL SULFATE 2.5 MG/3 ML NEBU NEB SCH ×6 (02:40→22:35)
[2019-08-01] MEDS: IPRATROPIUM BROMIDE 0.5 MG/2.5 ML NEBU NEB SCH ×6 (02:40→22:35)
[2019-08-01] MEDS: MIDODRINE HCL 10 MG TABLET GT SCH ×3 (05:19→21:41)
[2019-08-01] MEDS: METOCLOPRAMIDE HCL 5 MG TABLET GT SCH ×3 (05:19→21:41)
[2019-08-01] MEDS: BACLOFEN 20 MG TABLET GT SCH ×3 (05:19→21:40)
[2019-08-01] MEDS: BACLOFEN 10 MG TABLET GT SCH ×3 (05:19→21:39)
[2019-08-01] MEDS: OMEPRAZOLE 20 MG CAPSULE.DR GT SCH (05:19)
[2019-08-01 08:01] VITALS: BP 112/66
[2019-08-01] MEDS: DESMOPRESSIN 0.1 MG TABLET GT SCH (08:27)
[2019-08-01] MEDS: PHENYTOIN 100 MG/4 ML UDC GT SCH ×2 (08:27→21:30)
[2019-08-01] MEDS: levETIRAcetam 500 MG/5 ML LIQUID UDC GT SCH ×2 (08:28→21:36)
[2019-08-01] MEDS: ACIDOPHILUS/BULGARICUS CHEW TAB GT SCH ×2 (08:28→21:34)
[2019-08-01] MEDS: FUROSEMIDE 20 MG/2 ML GT SCH (08:30)
[2019-08-01] MEDS: COD LIVER OIL/ZINC OXIDE OINT 113 GM TUBE TOP SCH ×2 (08:30→21:39)
[2019-08-01] MEDS: POTASSIUM CHLORIDE 40 MEQ/30 ML LIQUID UDC GT SCH (08:30)
[2019-08-01] MEDS: HYDROGEN PEROXIDE 3% 118 ML BOTTLE TP SCH ×2 (09:30→19:06)
--- NOTE | 2019-08-01 11:18 | NUR ---
SEEN BY LUBNA REDDY WITH NO NEW ORDER.
--- NOTE | 2019-08-01 12:05 | NUR ---
SEEN BY DR BLACKMON WITH NEW ORDERS NOTED CARRIED OUT.
[2019-08-01] MEDS: VITAL AF 1.2 1,000 ML LIQUID GT SCH (16:49)
[2019-08-01 20:27] VITALS: BP 119/65
[2019-08-01] MEDS: FOLIC ACID 1 MG TABLET GT SCH (21:35)
[2019-08-01] MEDS: CHOLECALCIFEROL 1,000 UNIT TABLET GT SCH (21:39)
[2019-08-01] MEDS: THIAMINE HCL 100 MG TABLET GT SCH (21:39)
[2019-08-02] MEDS: IPRATROPIUM BROMIDE 0.5 MG/2.5 ML NEBU NEB SCH ×6 (03:26→22:40)
[2019-08-02] MEDS: ALBUTEROL SULFATE 2.5 MG/3 ML NEBU NEB SCH ×6 (03:26→22:40)
[2019-08-02] MEDS: BACLOFEN 10 MG TABLET GT SCH ×3 (05:43→21:04)
[2019-08-02] MEDS: BACLOFEN 20 MG TABLET GT SCH ×3 (05:43→21:04)
[2019-08-02] MEDS: METOCLOPRAMIDE HCL 5 MG TABLET GT SCH ×3 (05:43→21:04)
[2019-08-02] MEDS: OMEPRAZOLE 20 MG CAPSULE.DR GT SCH (05:43)
[2019-08-02] MEDS: MIDODRINE HCL 10 MG TABLET GT SCH ×3 (05:45→21:05)
--- NOTE | 2019-08-02 07:21 | NUR ---
PT REC'D ON CARBAJAL VENT TOLERATING CURRENT VENT SETTINGS WELL, NO DISTRESS NOTED GIVEN IN AM REPORT. PT VENT'D VIA TRACHEOSTOMY, TUBE IN PLACE PATENT AND SECURE WITH TRACH TIE. INH NEB TX'S TO BE GIVEN PER MD ORDER AND SXN'ING TO BE DONE NEEDED. VENT ALARMS AUDIBLE, CHECKED AND RESET. BVM AND BACK-UP TRACH AT BEDSIDE.
[2019-08-02 07:45] LABS: BASOPHILS # (AUTO) 0.1 K/uL (0.0-8.0); BASOPHILS % (AUTO) 0.9 % (0.0-2.0); EOSINOPHILS # (AUTO) 0.8 K/uL (0.0-0.7); EOSINOPHILS % (AUTO) 10.1 % (0.0-7.0); HEMOGLOBIN 10.2 g/dL (10.9-14.3); LYMPHOCYTES # (AUTO) 2.4 K/uL (20.0-40.0); LYMPHOCYTES % (AUTO) 30.5 % (20.5-51.5); MEAN CORPUSCULAR HEMOGLOBIN 31.8 uug (24.7-32.8); MEAN CORPUSCULAR HGB CONC 34 g/dL (32.3-35.6); MEAN CORPUSCULAR VOLUME 93.4 fL (75.5-95.3); MONOCYTES # (AUTO) 0.6 K/uL (2.0-10.0); MONOCYTES % (AUTO) 7.5 % (0.0-11.0); PLATELET COUNT (AUTO) 368 K/uL (179-408); RED BLOOD CELL COUNT(AUTO) 3.22 MIL/uL (3.63-4.92); WHITE BLOOD COUNT (AUTO) 7.9 K/uL (3.8-11.8)
[2019-08-02 07:55] LABS: CREATININE 0.6 mg/dL (0.6-1.3); MAGNESIUM 1.9 mg/dL (1.8-2.4); PHOSPHOROUS 3.3 mg/dL (2.5-4.9); POTASSIUM 3.7 mmol/L (3.5-5.1)
[2019-08-02 08:00] VITALS: BP 126/65
[2019-08-02 08:08] LABS: BAND % (MANUAL) 1 % (0-10); EOSINOPHILS % (MANUAL) 12 % (0-8); LYMPHOCYTES % (MANUAL) 31 % (20-40); MONOCYTES % (MANUAL) 4 % (2-10); NEUTROPHILS % (MANUAL) 51 % (42-75)
[2019-08-02] MEDS: DESMOPRESSIN 0.1 MG TABLET GT SCH (08:55)
[2019-08-02] MEDS: PHENYTOIN 100 MG/4 ML UDC GT SCH ×2 (08:57→20:59)
[2019-08-02] MEDS: levETIRAcetam 500 MG/5 ML LIQUID UDC GT SCH ×2 (08:57→21:03)
[2019-08-02] MEDS: ACIDOPHILUS/BULGARICUS CHEW TAB GT SCH ×2 (08:57→21:01)
[2019-08-02] MEDS: FUROSEMIDE 20 MG/2 ML GT SCH (08:58)
[2019-08-02] MEDS: POTASSIUM CHLORIDE 40 MEQ/30 ML LIQUID UDC GT SCH (08:58)
[2019-08-02] MEDS: COD LIVER OIL/ZINC OXIDE OINT 113 GM TUBE TOP SCH ×2 (08:59→21:04)
[2019-08-02] MEDS: HYDROGEN PEROXIDE 3% 118 ML BOTTLE TP SCH ×2 (09:14→21:03)
--- NOTE | 2019-08-02 14:50 | NUR ---
INTERDISCIPLINARY PLAN OF CARE CONFERENCE was held today. Patient's mother lives in [facility] and was not available for the meeting today. Dr. Wagner and the Interdisciplinary Team reviewed the current plan of care in detail. RN reported on patient's current medical condition, recent labs, and updated medications. No major changes in condition were reported. See RN IDT conference notes. See also all other disciplines IDT notes and physician's progress notes for additional details.
[2019-08-02] MEDS: VITAL AF 1.2 1,000 ML LIQUID GT SCH (16:37)
--- NOTE | 2019-08-02 18:09 | NUR ---
Pharmacy Update from Today's 08/02/19 IDT Meeting Note: Patient was transferred to [facility] 03/16-04/09 for TIRE BUFFER shunt placement per neurosurgeon, completed procedure, however later developed sepsis 2/2 UTI. Patient was stabilized and treated in CCU, now readmitted to on micafungin (antonette in Ucx, elevated wbc) VS: Temp 98.3 BP 126/65 HR 75 LABS: (from 08/02/19) Wbc 7.9 H/H 10.2/30 Plt 368 Na 138 K 3.7 Cl 104 CO2 26 BUN/Scr 19/0.6 BS 81 Ca 8.2 Phos 3.3 Mg 1.9 MEDICATION USE REVIEWED: > Pt not on any anti-psych medications > Pt on Keppra 1000mg q12h since 04/10/19; CrCl >100ml/min, renal function ok for current dose. No seizure episodes noted since transfer. > Pt previously on Phenytoin 100mg q12hr since 04/10/19. Level on 07/17/19 was 1.8 (corrected 2.4). Neurology adjusted to 200mg q12hr on 07/18/19. Rx recommended for repeat level and albumin at steady state, MD agreed. Ordered for 07/27 and resulted within range at 9.9 (corrected 13.0). > Ativan 1mg q6hprn seizures on board. None used since admit. No seizures noted > Pt now on DDAVP 0.05mg GT daily since 06/22/19 for diabetes insipidus > Continues on metoclopramide 5mg q8h for abdominal distension, h/o gastroparesis, ok per renal function > Continues omeprazole 20mg daily for GI prophylaxis, ok per renal function PRN MED USAGE: (Dec) Ativan for seizures used x0 Artificial Tears used x0 Bisacodyl Supp used x1 MOM used x1 OTHER ORDERS NOTED: > Per Rx rec, phenytoin level and albumin ordered at steady state on 07/27. Resulted level within therapeutic range Pt was reviewed and discussed in depth with no concerns per staff. Rx reported recent medication recommendations, with no further issues or recs at this time. Will continue to follow
[2019-08-02 20:00] VITALS: BP 96/59
[2019-08-02] MEDS: THIAMINE HCL 100 MG TABLET GT SCH (21:03)
[2019-08-02] MEDS: FOLIC ACID 1 MG TABLET GT SCH (21:03)
[2019-08-02] MEDS: CHOLECALCIFEROL 1,000 UNIT TABLET GT SCH (21:04)
[2019-08-03] MEDS: ALBUTEROL SULFATE 2.5 MG/3 ML NEBU NEB SCH ×6 (02:40→22:35)
[2019-08-03] MEDS: IPRATROPIUM BROMIDE 0.5 MG/2.5 ML NEBU NEB SCH ×6 (02:40→22:35)
[2019-08-03] MEDS: BACLOFEN 20 MG TABLET GT SCH ×3 (06:08→21:03)
[2019-08-03] MEDS: BACLOFEN 10 MG TABLET GT SCH ×3 (06:08→21:03)
[2019-08-03] MEDS: MIDODRINE HCL 10 MG TABLET GT SCH ×3 (06:09→21:03)
[2019-08-03] MEDS: OMEPRAZOLE 20 MG CAPSULE.DR GT SCH (06:09)
[2019-08-03] MEDS: METOCLOPRAMIDE HCL 5 MG TABLET GT SCH ×3 (06:09→21:03)
--- NOTE | 2019-08-03 07:08 | NUR ---
bhatt cath plugged, flushing unsuccessful, changed indwelling cath with FR 18x10, with urine flow draining to a drainage bag by gravity.
[2019-08-03 08:00] VITALS: BP 109/64
[2019-08-03] MEDS: HYDROGEN PEROXIDE 3% 118 ML BOTTLE TP SCH ×2 (08:39→18:49)
[2019-08-03] MEDS: DESMOPRESSIN 0.1 MG TABLET GT SCH (09:15)
[2019-08-03] MEDS: PHENYTOIN 100 MG/4 ML UDC GT SCH ×2 (09:15→21:02)
[2019-08-03] MEDS: ACIDOPHILUS/BULGARICUS CHEW TAB GT SCH ×2 (09:16→21:02)
[2019-08-03] MEDS: levETIRAcetam 500 MG/5 ML LIQUID UDC GT SCH ×2 (09:17→21:02)
[2019-08-03] MEDS: FUROSEMIDE 20 MG/2 ML GT SCH (09:17)
[2019-08-03] MEDS: POTASSIUM CHLORIDE 40 MEQ/30 ML LIQUID UDC GT SCH (09:17)
[2019-08-03] MEDS: COD LIVER OIL/ZINC OXIDE OINT 113 GM TUBE TOP SCH ×2 (09:18→21:03)
[2019-08-03] MEDS: VITAL AF 1.2 1,000 ML LIQUID GT SCH (17:44)
[2019-08-03 20:02] VITALS: BP 100/59
[2019-08-03] MEDS: FOLIC ACID 1 MG TABLET GT SCH (21:02)
[2019-08-03] MEDS: THIAMINE HCL 100 MG TABLET GT SCH (21:02)
[2019-08-03] MEDS: CHOLECALCIFEROL 1,000 UNIT TABLET GT SCH (21:03)
[2019-08-04] MEDS: IPRATROPIUM BROMIDE 0.5 MG/2.5 ML NEBU NEB SCH ×6 (03:55→22:36)
[2019-08-04] MEDS: ALBUTEROL SULFATE 2.5 MG/3 ML NEBU NEB SCH ×6 (03:55→22:36)
[2019-08-04] MEDS: BACLOFEN 20 MG TABLET GT SCH ×3 (06:04→22:13)
[2019-08-04] MEDS: BACLOFEN 10 MG TABLET GT SCH ×3 (06:04→22:13)
[2019-08-04] MEDS: METOCLOPRAMIDE HCL 5 MG TABLET GT SCH ×3 (06:05→22:13)
[2019-08-04] MEDS: MIDODRINE HCL 10 MG TABLET GT SCH ×3 (06:05→22:13)
[2019-08-04] MEDS: OMEPRAZOLE 20 MG CAPSULE.DR GT SCH (06:05)
[2019-08-04] MEDS: HYDROGEN PEROXIDE 3% 118 ML BOTTLE TP SCH ×2 (07:39→18:51)
[2019-08-04] MEDS: DESMOPRESSIN 0.1 MG TABLET GT SCH (09:03)
[2019-08-04] MEDS: levETIRAcetam 500 MG/5 ML LIQUID UDC GT SCH ×2 (09:05→20:45)
[2019-08-04] MEDS: PHENYTOIN 100 MG/4 ML UDC GT SCH ×2 (09:05→20:45)
[2019-08-04] MEDS: ACIDOPHILUS/BULGARICUS CHEW TAB GT SCH ×2 (09:05→20:41)
[2019-08-04] MEDS: POTASSIUM CHLORIDE 40 MEQ/30 ML LIQUID UDC GT SCH (09:06)
[2019-08-04] MEDS: FUROSEMIDE 20 MG/2 ML GT SCH (09:06)
[2019-08-04] MEDS: COD LIVER OIL/ZINC OXIDE OINT 113 GM TUBE TOP SCH ×2 (09:07→20:45)
[2019-08-04 10:44] VITALS: BP 115/60
--- NOTE | 2019-08-04 17:51 | NUR ---
JOSUÉ met with patient's family maintenance representative Bernardino, and reviewed patient's annual admission paperwork with Bernardino. JOSUÉ obtained signatures from Bernardino on all forms. The paperwork included: Conditions of Admission, Patient Rights Acknowledgement, Documentation of Preferred Intensity of Care, Voluntary Prior Express Consent Form, Race and Ethnicity Patient Self-Identification, and the [facility] Agreement. For assessment/quarterly information, see patient's previous chart #[id number]. Bernardino also informed this SW that patient's mother had recently informed Bernardino that she would be coming in from [facility] in September to visit the patient.
--- NOTE | 2019-08-04 18:21 | NUR ---
SEEN BY DR. ANDER WAY.
[2019-08-04] MEDS: FOLIC ACID 1 MG TABLET GT SCH (20:41)
[2019-08-04] MEDS: CHOLECALCIFEROL 1,000 UNIT TABLET GT SCH (20:45)
[2019-08-04] MEDS: THIAMINE HCL 100 MG TABLET GT SCH (20:45)
[2019-08-04 20:53] VITALS: BP 100/62
[2019-08-05] MEDS: ALBUTEROL SULFATE 2.5 MG/3 ML NEBU NEB SCH ×6 (03:33→23:30)
[2019-08-05] MEDS: IPRATROPIUM BROMIDE 0.5 MG/2.5 ML NEBU NEB SCH ×6 (03:33→23:30)
[2019-08-05] MEDS: BACLOFEN 10 MG TABLET GT SCH ×3 (05:43→21:12)
[2019-08-05] MEDS: BACLOFEN 20 MG TABLET GT SCH ×3 (05:43→21:12)
[2019-08-05] MEDS: METOCLOPRAMIDE HCL 5 MG TABLET GT SCH ×3 (05:44→21:12)
[2019-08-05] MEDS: MIDODRINE HCL 10 MG TABLET GT SCH ×3 (05:44→21:14)
[2019-08-05] MEDS: OMEPRAZOLE 20 MG CAPSULE.DR GT SCH (05:44)
[2019-08-05] MEDS: PHENYTOIN 100 MG/4 ML UDC GT SCH ×2 (08:41→21:09)
[2019-08-05] MEDS: ACIDOPHILUS/BULGARICUS CHEW TAB GT SCH ×2 (08:41→21:09)
[2019-08-05] MEDS: DESMOPRESSIN 0.1 MG TABLET GT SCH (08:41)
[2019-08-05] MEDS: POTASSIUM CHLORIDE 40 MEQ/30 ML LIQUID UDC GT SCH (08:41)
[2019-08-05] MEDS: COD LIVER OIL/ZINC OXIDE OINT 113 GM TUBE TOP SCH ×2 (08:41→21:12)
[2019-08-05] MEDS: levETIRAcetam 500 MG/5 ML LIQUID UDC GT SCH ×2 (08:41→21:10)
[2019-08-05] MEDS: FUROSEMIDE 20 MG/2 ML GT SCH (08:41)
[2019-08-05] MEDS: HYDROGEN PEROXIDE 3% 118 ML BOTTLE TP SCH ×2 (09:00→21:11)
[2019-08-05 10:23] VITALS: BP 115/65
[2019-08-05 20:21] VITALS: BP 113/78
[2019-08-05] MEDS: FOLIC ACID 1 MG TABLET GT SCH (21:10)
[2019-08-05] MEDS: CHOLECALCIFEROL 1,000 UNIT TABLET GT SCH (21:11)
[2019-08-05] MEDS: THIAMINE HCL 100 MG TABLET GT SCH (21:11)
[2019-08-06] MEDS: IPRATROPIUM BROMIDE 0.5 MG/2.5 ML NEBU NEB SCH ×6 (02:30→23:00)
[2019-08-06] MEDS: ALBUTEROL SULFATE 2.5 MG/3 ML NEBU NEB SCH ×6 (02:30→23:00)
[2019-08-06] MEDS: BACLOFEN 10 MG TABLET GT SCH ×3 (05:55→21:06)
[2019-08-06] MEDS: MIDODRINE HCL 10 MG TABLET GT SCH ×3 (05:55→21:08)
[2019-08-06] MEDS: BACLOFEN 20 MG TABLET GT SCH ×3 (05:55→21:06)
[2019-08-06] MEDS: METOCLOPRAMIDE HCL 5 MG TABLET GT SCH ×3 (05:56→21:08)
[2019-08-06] MEDS: OMEPRAZOLE 20 MG CAPSULE.DR GT SCH (05:56)
[2019-08-06 08:00] VITALS: BP 96/62
[2019-08-06] MEDS: ACIDOPHILUS/BULGARICUS CHEW TAB GT SCH ×2 (08:03→21:00)
[2019-08-06] MEDS: DESMOPRESSIN 0.1 MG TABLET GT SCH (08:03)
[2019-08-06] MEDS: PHENYTOIN 100 MG/4 ML UDC GT SCH ×2 (08:03→20:58)
[2019-08-06] MEDS: levETIRAcetam 500 MG/5 ML LIQUID UDC GT SCH ×2 (08:05→21:02)
[2019-08-06] MEDS: FUROSEMIDE 20 MG/2 ML GT SCH (08:06)
[2019-08-06] MEDS: COD LIVER OIL/ZINC OXIDE OINT 113 GM TUBE TOP SCH ×2 (08:07→21:06)
[2019-08-06] MEDS: POTASSIUM CHLORIDE 40 MEQ/30 ML LIQUID UDC GT SCH (08:07)
[2019-08-06] MEDS: HYDROGEN PEROXIDE 3% 118 ML BOTTLE TP SCH ×2 (09:00→21:47)
[2019-08-06 20:22] VITALS: BP 100/56
[2019-08-06] MEDS: FOLIC ACID 1 MG TABLET GT SCH (21:02)
[2019-08-06] MEDS: THIAMINE HCL 100 MG TABLET GT SCH (21:04)
[2019-08-06] MEDS: CHOLECALCIFEROL 1,000 UNIT TABLET GT SCH (21:05)
[2019-08-07] MEDS: ALBUTEROL SULFATE 2.5 MG/3 ML NEBU NEB SCH ×6 (03:32→22:54)
[2019-08-07] MEDS: IPRATROPIUM BROMIDE 0.5 MG/2.5 ML NEBU NEB SCH ×6 (03:32→22:54)
[2019-08-07] MEDS: BACLOFEN 10 MG TABLET GT SCH ×3 (05:59→21:02)
[2019-08-07] MEDS: BACLOFEN 20 MG TABLET GT SCH ×3 (05:59→21:03)
[2019-08-07] MEDS: OMEPRAZOLE 20 MG CAPSULE.DR GT SCH (06:00)
[2019-08-07] MEDS: METOCLOPRAMIDE HCL 5 MG TABLET GT SCH ×3 (06:00→21:03)
[2019-08-07] MEDS: MIDODRINE HCL 10 MG TABLET GT SCH ×3 (06:00→21:03)
[2019-08-07 08:00] VITALS: BP 102/45
[2019-08-07] MEDS: HYDROGEN PEROXIDE 3% 118 ML BOTTLE TP SCH ×2 (09:00→21:02)
[2019-08-07] MEDS: DESMOPRESSIN 0.1 MG TABLET GT SCH (09:13)
[2019-08-07] MEDS: PHENYTOIN 100 MG/4 ML UDC GT SCH ×2 (09:13→21:02)
[2019-08-07] MEDS: ACIDOPHILUS/BULGARICUS CHEW TAB GT SCH ×2 (09:15→21:02)
[2019-08-07] MEDS: FUROSEMIDE 20 MG/2 ML GT SCH (09:15)
[2019-08-07] MEDS: levETIRAcetam 500 MG/5 ML LIQUID UDC GT SCH ×2 (09:15→21:02)
[2019-08-07] MEDS: POTASSIUM CHLORIDE 40 MEQ/30 ML LIQUID UDC GT SCH (09:16)
[2019-08-07] MEDS: COD LIVER OIL/ZINC OXIDE OINT 113 GM TUBE TOP SCH ×2 (09:16→21:02)
--- NOTE | 2019-08-07 19:21 | NUR ---
Pt received on HT-50 ventilator with the following settings of SIMV-12, Vt-500, PEEP+5, PS-10, FIO2-2LPM bleed in, trached with Susyley#6 DCT trach, which is in the place and secure. No distress noted. Airway care done, pt responded to physical stimuli. In-line HHN tx with 2.5mg Albuterol+0.5mg Atrovent given, pt tolerated well. HME changed. Pt has a gauze between her lips to prevent biting. Resus. bag and back up trach at bedside. Vent and alarms checked and reset.
[2019-08-07 20:24] VITALS: BP 130/76
[2019-08-07] MEDS: THIAMINE HCL 100 MG TABLET GT SCH (21:02)
[2019-08-07] MEDS: CHOLECALCIFEROL 1,000 UNIT TABLET GT SCH (21:02)
[2019-08-07] MEDS: FOLIC ACID 1 MG TABLET GT SCH (21:02)
[2019-08-08] MEDS: IPRATROPIUM BROMIDE 0.5 MG/2.5 ML NEBU NEB SCH ×6 (02:40→22:40)
[2019-08-08] MEDS: ALBUTEROL SULFATE 2.5 MG/3 ML NEBU NEB SCH ×6 (02:40→22:40)
[2019-08-08] MEDS: BACLOFEN 20 MG TABLET GT SCH ×3 (05:50→21:07)
[2019-08-08] MEDS: MIDODRINE HCL 10 MG TABLET GT SCH ×3 (05:50→21:07)
[2019-08-08] MEDS: BACLOFEN 10 MG TABLET GT SCH ×3 (05:50→21:07)
[2019-08-08] MEDS: METOCLOPRAMIDE HCL 5 MG TABLET GT SCH ×3 (05:51→21:08)
[2019-08-08] MEDS: OMEPRAZOLE 20 MG CAPSULE.DR GT SCH (05:51)
[2019-08-08] MEDS: HYDROGEN PEROXIDE 3% 118 ML BOTTLE TP SCH ×2 (08:11→21:16)
[2019-08-08] MEDS: DESMOPRESSIN 0.1 MG TABLET GT SCH (08:13)
[2019-08-08] MEDS: levETIRAcetam 500 MG/5 ML LIQUID UDC GT SCH ×2 (08:15→21:07)
[2019-08-08] MEDS: ACIDOPHILUS/BULGARICUS CHEW TAB GT SCH ×2 (08:15→21:07)
[2019-08-08] MEDS: FUROSEMIDE 20 MG/2 ML GT SCH (08:16)
[2019-08-08] MEDS: COD LIVER OIL/ZINC OXIDE OINT 113 GM TUBE TOP SCH ×2 (08:17→21:07)
[2019-08-08] MEDS: POTASSIUM CHLORIDE 40 MEQ/30 ML LIQUID UDC GT SCH (08:21)
[2019-08-08] MEDS: PHENYTOIN 100 MG/4 ML UDC GT SCH ×2 (08:23→21:07)
[2019-08-08 10:51] VITALS: BP 106/74
--- NOTE | 2019-08-08 13:00 | NUR ---
SEEN BY EMMY Agustin AND WITH NNO.
--- NOTE | 2019-08-08 19:12 | NUR ---
Pt received on HT-50 ventilator with the following settings of SIMV-12, Vt-500, PEEP+5, PS-10, FIO2-2LPM bleed in, trached with uSsyley#6 DCT trach, which is in the place and secure. No SOB noted. Airway care done, pt responded to physical stimuli. In-line HHN tx with 2.5mg Albuterol+0.5mg Atrovent given, no adverse reaction noted. HME changed. Pt has a gauze between her lips to prevent biting. Resus. bag and back up trach at bedside. Vent and alarms checked and reset.
[2019-08-08 20:52] VITALS: BP 119/62
[2019-08-08] MEDS: CHOLECALCIFEROL 1,000 UNIT TABLET GT SCH (21:07)
[2019-08-08] MEDS: THIAMINE HCL 100 MG TABLET GT SCH (21:07)
[2019-08-08] MEDS: FOLIC ACID 1 MG TABLET GT SCH (21:07)
[2019-08-08] MEDS: VITAL AF 1.2 1,000 ML LIQUID GT SCH (23:00)
--- NOTE | 2019-08-08 23:21 | NUR ---
Seen and examined by Dr. Simpson with no new orders.
[2019-08-09] MEDS: IPRATROPIUM BROMIDE 0.5 MG/2.5 ML NEBU NEB SCH ×6 (02:40→23:54)
[2019-08-09] MEDS: ALBUTEROL SULFATE 2.5 MG/3 ML NEBU NEB SCH ×6 (02:40→23:54)
[2019-08-09] MEDS: MIDODRINE HCL 10 MG TABLET GT SCH ×3 (06:00→21:30)
[2019-08-09] MEDS: BACLOFEN 20 MG TABLET GT SCH ×3 (06:44→21:30)
[2019-08-09] MEDS: BACLOFEN 10 MG TABLET GT SCH ×3 (06:44→21:30)
[2019-08-09] MEDS: METOCLOPRAMIDE HCL 5 MG TABLET GT SCH ×3 (06:45→21:31)
[2019-08-09] MEDS: OMEPRAZOLE 20 MG CAPSULE.DR GT SCH (06:45)
[2019-08-09 08:30] VITALS: BP 93/64
[2019-08-09] MEDS: POTASSIUM CHLORIDE 40 MEQ/30 ML LIQUID UDC GT SCH (08:51)
[2019-08-09] MEDS: PHENYTOIN 100 MG/4 ML UDC GT SCH ×2 (08:51→21:27)
[2019-08-09] MEDS: FUROSEMIDE 20 MG/2 ML GT SCH (08:51)
[2019-08-09] MEDS: ACIDOPHILUS/BULGARICUS CHEW TAB GT SCH ×2 (08:51→21:27)
[2019-08-09] MEDS: DESMOPRESSIN 0.1 MG TABLET GT SCH (08:51)
[2019-08-09] MEDS: levETIRAcetam 500 MG/5 ML LIQUID UDC GT SCH ×2 (08:51→21:29)
[2019-08-09] MEDS: COD LIVER OIL/ZINC OXIDE OINT 113 GM TUBE TOP SCH ×2 (08:51→21:30)
[2019-08-09] MEDS: HYDROGEN PEROXIDE 3% 118 ML BOTTLE TP SCH ×2 (09:00→21:12)
--- NOTE | 2019-08-09 11:00 | NUR ---
Seen and examined by Marguerite Chicas,no new orders.
[2019-08-09 20:24] VITALS: BP 101/65
[2019-08-09] MEDS: FOLIC ACID 1 MG TABLET GT SCH (21:28)
[2019-08-09] MEDS: CHOLECALCIFEROL 1,000 UNIT TABLET GT SCH (21:29)
[2019-08-09] MEDS: THIAMINE HCL 100 MG TABLET GT SCH (21:29)
--- NOTE | 2019-08-10 01:41 | NUR ---
PT ON CONT HT 50 VENT WITH SHILEY # [address], PT DOES ASSIST AT TIMES, GOOD COUGH EFFORT, NEB INLINE Q4 HOURS, SUCTIONED LIGHT PALE YELL TINGE SECRETIONS, CHECK CUFF, CHANGE HME TRACH CARE DONE, NO VENT CHANGES MADE, PT STABLE.Neel PACHECO RCP, Addendum: 08/10/19 at 0143 by BESS PACHECO RT Amended: Links added.
[2019-08-10] MEDS: VITAL AF 1.2 1,000 ML LIQUID GT SCH (03:12)
[2019-08-10] MEDS: IPRATROPIUM BROMIDE 0.5 MG/2.5 ML NEBU NEB SCH ×6 (03:24→23:01)
[2019-08-10] MEDS: ALBUTEROL SULFATE 2.5 MG/3 ML NEBU NEB SCH ×6 (03:24→23:01)
[2019-08-10] MEDS: BACLOFEN 20 MG TABLET GT SCH ×3 (06:08→21:17)
[2019-08-10] MEDS: BACLOFEN 10 MG TABLET GT SCH ×3 (06:08→21:17)
[2019-08-10] MEDS: MIDODRINE HCL 10 MG TABLET GT SCH ×3 (06:09→21:18)
[2019-08-10] MEDS: METOCLOPRAMIDE HCL 5 MG TABLET GT SCH ×3 (06:09→21:18)
[2019-08-10] MEDS: OMEPRAZOLE 20 MG CAPSULE.DR GT SCH (06:09)
[2019-08-10] MEDS: FUROSEMIDE 20 MG/2 ML GT SCH (09:00)
[2019-08-10] MEDS: POTASSIUM CHLORIDE 40 MEQ/30 ML LIQUID UDC GT SCH (09:00)
[2019-08-10] MEDS: COD LIVER OIL/ZINC OXIDE OINT 113 GM TUBE TOP SCH ×2 (09:00→21:17)
[2019-08-10] MEDS: PHENYTOIN 100 MG/4 ML UDC GT SCH ×2 (09:00→21:14)
[2019-08-10] MEDS: HYDROGEN PEROXIDE 3% 118 ML BOTTLE TP SCH ×2 (09:00→21:51)
[2019-08-10] MEDS: DESMOPRESSIN 0.1 MG TABLET GT SCH (09:00)
[2019-08-10] MEDS: ACIDOPHILUS/BULGARICUS CHEW TAB GT SCH ×2 (09:00→21:14)
[2019-08-10] MEDS: levETIRAcetam 500 MG/5 ML LIQUID UDC GT SCH ×2 (09:00→21:16)
[2019-08-10 11:16] VITALS: BP 89/53
--- NOTE | 2019-08-10 19:26 | NUR ---
Seen and examined by Dr Wanger,no new orders noted.
[2019-08-10 20:47] VITALS: BP 97/52
[2019-08-10] MEDS: FOLIC ACID 1 MG TABLET GT SCH (21:14)
[2019-08-10] MEDS: THIAMINE HCL 100 MG TABLET GT SCH (21:17)
[2019-08-10] MEDS: CHOLECALCIFEROL 1,000 UNIT TABLET GT SCH (21:17)
[2019-08-11] MEDS: IPRATROPIUM BROMIDE 0.5 MG/2.5 ML NEBU NEB SCH ×6 (03:25→23:33)
[2019-08-11] MEDS: ALBUTEROL SULFATE 2.5 MG/3 ML NEBU NEB SCH ×6 (03:25→23:33)
[2019-08-11] MEDS: VITAL AF 1.2 1,000 ML LIQUID GT SCH (03:31)
[2019-08-11] MEDS: BACLOFEN 20 MG TABLET GT SCH ×3 (05:19→21:03)
[2019-08-11] MEDS: BACLOFEN 10 MG TABLET GT SCH ×3 (05:19→21:03)
[2019-08-11] MEDS: OMEPRAZOLE 20 MG CAPSULE.DR GT SCH (05:20)
[2019-08-11] MEDS: METOCLOPRAMIDE HCL 5 MG TABLET GT SCH ×3 (05:20→21:04)
[2019-08-11] MEDS: MIDODRINE HCL 10 MG TABLET GT SCH ×3 (05:20→21:04)
[2019-08-11] MEDS: HYDROGEN PEROXIDE 3% 118 ML BOTTLE TP SCH ×2 (07:43→21:14)
[2019-08-11] MEDS: DESMOPRESSIN 0.1 MG TABLET GT SCH (09:01)
[2019-08-11] MEDS: PHENYTOIN 100 MG/4 ML UDC GT SCH ×2 (09:01→21:00)
[2019-08-11] MEDS: levETIRAcetam 500 MG/5 ML LIQUID UDC GT SCH ×2 (09:02→21:01)
[2019-08-11] MEDS: ACIDOPHILUS/BULGARICUS CHEW TAB GT SCH ×2 (09:02→21:00)
[2019-08-11] MEDS: FUROSEMIDE 20 MG/2 ML GT SCH (09:03)
[2019-08-11] MEDS: POTASSIUM CHLORIDE 40 MEQ/30 ML LIQUID UDC GT SCH (09:03)
[2019-08-11] MEDS: COD LIVER OIL/ZINC OXIDE OINT 113 GM TUBE TOP SCH ×2 (09:04→21:03)
[2019-08-11 10:29] VITALS: BP 91/54
[2019-08-11 20:41] VITALS: BP 103/52
[2019-08-11] MEDS: FOLIC ACID 1 MG TABLET GT SCH (21:01)
[2019-08-11] MEDS: THIAMINE HCL 100 MG TABLET GT SCH (21:02)
[2019-08-11] MEDS: CHOLECALCIFEROL 1,000 UNIT TABLET GT SCH (21:03)
[2019-08-12] MEDS: IPRATROPIUM BROMIDE 0.5 MG/2.5 ML NEBU NEB SCH ×6 (03:05→22:35)
[2019-08-12] MEDS: ALBUTEROL SULFATE 2.5 MG/3 ML NEBU NEB SCH ×6 (03:05→22:35)
[2019-08-12] MEDS: BACLOFEN 20 MG TABLET GT SCH ×3 (05:52→21:07)
[2019-08-12] MEDS: BACLOFEN 10 MG TABLET GT SCH ×3 (05:52→21:07)
[2019-08-12] MEDS: MIDODRINE HCL 10 MG TABLET GT SCH ×3 (05:53→21:07)
[2019-08-12] MEDS: OMEPRAZOLE 20 MG CAPSULE.DR GT SCH (05:53)
[2019-08-12] MEDS: METOCLOPRAMIDE HCL 5 MG TABLET GT SCH ×3 (05:53→21:08)
[2019-08-12] MEDS: HYDROGEN PEROXIDE 3% 118 ML BOTTLE TP SCH ×2 (09:00→19:08)
[2019-08-12] MEDS: PHENYTOIN 100 MG/4 ML UDC GT SCH ×2 (09:07→20:32)
[2019-08-12] MEDS: DESMOPRESSIN 0.1 MG TABLET GT SCH (09:07)
[2019-08-12] MEDS: POTASSIUM CHLORIDE 40 MEQ/30 ML LIQUID UDC GT SCH (09:08)
[2019-08-12] MEDS: ACIDOPHILUS/BULGARICUS CHEW TAB GT SCH ×2 (09:08→20:32)
[2019-08-12] MEDS: levETIRAcetam 500 MG/5 ML LIQUID UDC GT SCH ×2 (09:08→20:32)
[2019-08-12] MEDS: FUROSEMIDE 20 MG/2 ML GT SCH (09:08)
[2019-08-12] MEDS: COD LIVER OIL/ZINC OXIDE OINT 113 GM TUBE TOP SCH ×2 (09:09→20:32)
[2019-08-12 10:38] VITALS: BP 111/58
[2019-08-12] MEDS: VITAL AF 1.2 1,000 ML LIQUID GT SCH (11:40)
[2019-08-12] MEDS: THIAMINE HCL 100 MG TABLET GT SCH (20:32)
[2019-08-12] MEDS: FOLIC ACID 1 MG TABLET GT SCH (20:32)
[2019-08-12] MEDS: CHOLECALCIFEROL 1,000 UNIT TABLET GT SCH (20:32)
[2019-08-12 20:42] VITALS: BP 98/56
[2019-08-13] MEDS: IPRATROPIUM BROMIDE 0.5 MG/2.5 ML NEBU NEB SCH ×6 (04:24→23:19)
[2019-08-13] MEDS: ALBUTEROL SULFATE 2.5 MG/3 ML NEBU NEB SCH ×6 (04:24→23:19)
[2019-08-13] MEDS: BACLOFEN 20 MG TABLET GT SCH ×3 (05:05→21:06)
[2019-08-13] MEDS: BACLOFEN 10 MG TABLET GT SCH ×3 (05:05→21:06)
[2019-08-13] MEDS: OMEPRAZOLE 20 MG CAPSULE.DR GT SCH (05:06)
[2019-08-13] MEDS: MIDODRINE HCL 10 MG TABLET GT SCH ×3 (05:06→21:06)
[2019-08-13] MEDS: METOCLOPRAMIDE HCL 5 MG TABLET GT SCH ×3 (05:06→21:07)
[2019-08-13] MEDS: HYDROGEN PEROXIDE 3% 118 ML BOTTLE TP SCH ×2 (09:10→19:57)
[2019-08-13] MEDS: ACIDOPHILUS/BULGARICUS CHEW TAB GT SCH ×2 (09:36→20:34)
[2019-08-13] MEDS: DESMOPRESSIN 0.1 MG TABLET GT SCH (09:36)
[2019-08-13] MEDS: PHENYTOIN 100 MG/4 ML UDC GT SCH ×2 (09:36→20:34)
[2019-08-13] MEDS: levETIRAcetam 500 MG/5 ML LIQUID UDC GT SCH ×2 (09:37→20:34)
[2019-08-13] MEDS: POTASSIUM CHLORIDE 40 MEQ/30 ML LIQUID UDC GT SCH (09:38)
[2019-08-13] MEDS: COD LIVER OIL/ZINC OXIDE OINT 113 GM TUBE TOP SCH ×2 (09:38→20:34)
[2019-08-13] MEDS: FUROSEMIDE 20 MG/2 ML GT SCH (09:38)
[2019-08-13 11:42] VITALS: BP 119/65
[2019-08-13] MEDS: VITAL AF 1.2 1,000 ML LIQUID GT SCH (13:37)
[2019-08-13] MEDS: FOLIC ACID 1 MG TABLET GT SCH (20:34)
[2019-08-13] MEDS: CHOLECALCIFEROL 1,000 UNIT TABLET GT SCH (20:34)
[2019-08-13] MEDS: THIAMINE HCL 100 MG TABLET GT SCH (20:34)
[2019-08-13 22:00] VITALS: BP 111/49
[2019-08-14] MEDS: ALBUTEROL SULFATE 2.5 MG/3 ML NEBU NEB SCH ×6 (03:53→22:33)
[2019-08-14] MEDS: IPRATROPIUM BROMIDE 0.5 MG/2.5 ML NEBU NEB SCH ×6 (03:53→22:33)
[2019-08-14] MEDS: BACLOFEN 20 MG TABLET GT SCH ×3 (05:35→21:19)
[2019-08-14] MEDS: BACLOFEN 10 MG TABLET GT SCH ×3 (05:35→21:18)
[2019-08-14] MEDS: OMEPRAZOLE 20 MG CAPSULE.DR GT SCH (05:36)
[2019-08-14] MEDS: MIDODRINE HCL 10 MG TABLET GT SCH ×3 (05:36→21:19)
[2019-08-14] MEDS: METOCLOPRAMIDE HCL 5 MG TABLET GT SCH ×3 (05:36→21:19)
[2019-08-14 08:00] VITALS: BP 116/62
[2019-08-14] MEDS: PHENYTOIN 100 MG/4 ML UDC GT SCH ×2 (08:03→20:22)
[2019-08-14] MEDS: DESMOPRESSIN 0.1 MG TABLET GT SCH (08:03)
[2019-08-14] MEDS: levETIRAcetam 500 MG/5 ML LIQUID UDC GT SCH ×2 (08:04→20:22)
[2019-08-14] MEDS: ACIDOPHILUS/BULGARICUS CHEW TAB GT SCH ×2 (08:04→20:22)
[2019-08-14] MEDS: POTASSIUM CHLORIDE 40 MEQ/30 ML LIQUID UDC GT SCH (08:05)
[2019-08-14] MEDS: FUROSEMIDE 20 MG/2 ML GT SCH (08:05)
[2019-08-14] MEDS: COD LIVER OIL/ZINC OXIDE OINT 113 GM TUBE TOP SCH ×2 (08:05→20:22)
[2019-08-14] MEDS: HYDROGEN PEROXIDE 3% 118 ML BOTTLE TP SCH ×2 (09:20→18:51)
[2019-08-14] MEDS: VITAL AF 1.2 1,000 ML LIQUID GT SCH (13:04)
[2019-08-14] MEDS: CHOLECALCIFEROL 1,000 UNIT TABLET GT SCH (20:22)
[2019-08-14] MEDS: THIAMINE HCL 100 MG TABLET GT SCH (20:22)
[2019-08-14] MEDS: FOLIC ACID 1 MG TABLET GT SCH (20:22)
[2019-08-14 20:57] VITALS: BP 99/49
[2019-08-15] MEDS: ALBUTEROL SULFATE 2.5 MG/3 ML NEBU NEB SCH ×6 (04:03→22:54)
[2019-08-15] MEDS: IPRATROPIUM BROMIDE 0.5 MG/2.5 ML NEBU NEB SCH ×6 (04:03→22:54)
[2019-08-15] MEDS: BACLOFEN 10 MG TABLET GT SCH ×3 (05:12→21:36)
[2019-08-15] MEDS: METOCLOPRAMIDE HCL 5 MG TABLET GT SCH ×3 (05:12→21:44)
[2019-08-15] MEDS: OMEPRAZOLE 20 MG CAPSULE.DR GT SCH (05:12)
[2019-08-15] MEDS: MIDODRINE HCL 10 MG TABLET GT SCH ×3 (05:12→21:39)
[2019-08-15] MEDS: BACLOFEN 20 MG TABLET GT SCH ×3 (05:12→21:36)
--- NOTE | 2019-08-15 07:35 | NUR ---
PT RECEIVED ON CONTINUOUS VENT TOLERATING CURRENT VENT SETTINGS WELL, NO DISTRESS NOTED AT THIS TIME. TRACH CARE DONE. TRACH TUBE IN PLACE PATENT AND SECURE WITH TRACH TIE. IN LINE TX GIVEN PER MD ORDER . SUCTION PRN. VENT ALARMS AUDIBLE, CHECKED AND RESET. AMBU BAG AND BACK-UP TRACH AT BEDSIDE.WILL CONTINUE TO MONITOR.
[2019-08-15] MEDS: FUROSEMIDE 20 MG/2 ML GT SCH (08:17)
[2019-08-15] MEDS: ACIDOPHILUS/BULGARICUS CHEW TAB GT SCH ×2 (08:17→21:39)
[2019-08-15] MEDS: levETIRAcetam 500 MG/5 ML LIQUID UDC GT SCH ×2 (08:17→21:41)
[2019-08-15] MEDS: COD LIVER OIL/ZINC OXIDE OINT 113 GM TUBE TOP SCH ×2 (08:17→21:41)
[2019-08-15] MEDS: DESMOPRESSIN 0.1 MG TABLET GT SCH (08:17)
[2019-08-15] MEDS: PHENYTOIN 100 MG/4 ML UDC GT SCH ×2 (08:17→21:40)
[2019-08-15] MEDS: POTASSIUM CHLORIDE 40 MEQ/30 ML LIQUID UDC GT SCH (08:17)
[2019-08-15] MEDS: HYDROGEN PEROXIDE 3% 118 ML BOTTLE TP SCH ×2 (08:37→19:40)
[2019-08-15] MEDS: FOLIC ACID 1 MG TABLET GT SCH (21:34)
[2019-08-15] MEDS: CHOLECALCIFEROL 1,000 UNIT TABLET GT SCH (21:40)
[2019-08-15] MEDS: THIAMINE HCL 100 MG TABLET GT SCH (21:41)
[2019-08-15 22:07] VITALS: BP 91/45
[2019-08-16] MEDS: ALBUTEROL SULFATE 2.5 MG/3 ML NEBU NEB SCH ×6 (03:16→22:40)
[2019-08-16] MEDS: IPRATROPIUM BROMIDE 0.5 MG/2.5 ML NEBU NEB SCH ×6 (03:16→22:40)
[2019-08-16] MEDS: VITAL AF 1.2 1,000 ML LIQUID GT SCH (04:37)
[2019-08-16] MEDS: MIDODRINE HCL 10 MG TABLET GT SCH ×3 (05:48→22:38)
[2019-08-16] MEDS: METOCLOPRAMIDE HCL 5 MG TABLET GT SCH ×3 (05:51→22:38)
[2019-08-16] MEDS: BACLOFEN 20 MG TABLET GT SCH ×3 (05:51→22:38)
[2019-08-16] MEDS: BACLOFEN 10 MG TABLET GT SCH ×3 (05:51→22:38)
[2019-08-16] MEDS: OMEPRAZOLE 20 MG CAPSULE.DR GT SCH (05:51)
[2019-08-16] MEDS: ACIDOPHILUS/BULGARICUS CHEW TAB GT SCH ×2 (09:21→20:32)
[2019-08-16] MEDS: DESMOPRESSIN 0.1 MG TABLET GT SCH (09:21)
[2019-08-16] MEDS: PHENYTOIN 100 MG/4 ML UDC GT SCH ×2 (09:21→20:32)
[2019-08-16] MEDS: FUROSEMIDE 20 MG/2 ML GT SCH (09:22)
[2019-08-16] MEDS: POTASSIUM CHLORIDE 40 MEQ/30 ML LIQUID UDC GT SCH (09:22)
[2019-08-16] MEDS: levETIRAcetam 500 MG/5 ML LIQUID UDC GT SCH ×2 (09:22→20:33)
[2019-08-16 09:24] VITALS: BP 95/49
[2019-08-16] MEDS: COD LIVER OIL/ZINC OXIDE OINT 113 GM TUBE TOP SCH ×2 (09:26→20:34)
[2019-08-16] MEDS: HYDROGEN PEROXIDE 3% 118 ML BOTTLE TP SCH ×2 (09:57→21:33)
[2019-08-16 20:00] VITALS: BP 98/62
[2019-08-16] MEDS: FOLIC ACID 1 MG TABLET GT SCH (20:32)
[2019-08-16] MEDS: THIAMINE HCL 100 MG TABLET GT SCH (20:33)
[2019-08-16] MEDS: CHOLECALCIFEROL 1,000 UNIT TABLET GT SCH (20:34)
[2019-08-17] MEDS: ALBUTEROL SULFATE 2.5 MG/3 ML NEBU NEB SCH ×6 (02:40→22:33)
[2019-08-17] MEDS: IPRATROPIUM BROMIDE 0.5 MG/2.5 ML NEBU NEB SCH ×6 (02:40→22:33)
[2019-08-17] MEDS: BACLOFEN 20 MG TABLET GT SCH ×3 (05:31→22:57)
[2019-08-17] MEDS: BACLOFEN 10 MG TABLET GT SCH ×3 (05:31→22:57)
[2019-08-17] MEDS: MIDODRINE HCL 10 MG TABLET GT SCH ×3 (05:32→22:57)
[2019-08-17] MEDS: OMEPRAZOLE 20 MG CAPSULE.DR GT SCH (05:32)
[2019-08-17] MEDS: METOCLOPRAMIDE HCL 5 MG TABLET GT SCH ×3 (05:32→22:57)
[2019-08-17 07:07] LABS: BASOPHILS % (AUTO) 0.3 % (0.0-2.0); EOSINOPHILS # (AUTO) 0.3 K/uL (0.0-0.7); EOSINOPHILS % (AUTO) 3.3 % (0.0-7.0); HEMATOCRIT 31.1 % (31.2-41.9); HEMOGLOBIN 10.8 g/dL (10.9-14.3); LYMPHOCYTES # (AUTO) 1.1 K/uL (20.0-40.0); LYMPHOCYTES % (AUTO) 11.8 % (20.5-51.5); MEAN CORPUSCULAR HEMOGLOBIN 32.2 uug (24.7-32.8); MEAN CORPUSCULAR HGB CONC 35 g/dL (32.3-35.6); MEAN CORPUSCULAR VOLUME 92.7 fL (75.5-95.3); MONOCYTES # (AUTO) 0.6 K/uL (2.0-10.0); MONOCYTES % (AUTO) 6.8 % (0.0-11.0); NEUTROPHILS # (AUTO) 7.4 K/uL (1.8-8.9); NEUTROPHILS % (AUTO) 77.8 % (38.5-71.5); PLATELET COUNT (AUTO) 255 K/uL (179-408); RED BLOOD CELL COUNT(AUTO) 3.36 MIL/uL (3.63-4.92); WHITE BLOOD COUNT (AUTO) 9.5 K/uL (3.8-11.8)
[2019-08-17 07:23] LABS: CARBON DIOXIDE 21 mmol/L (21-32); CHLORIDE 108 mmol/L (98-107); CREATININE 0.4 mg/dL (0.6-1.3); GLUCOSE 84 mg/dL (74-106); MAGNESIUM 1.9 mg/dL (1.8-2.4); PHOSPHOROUS 3.7 mg/dL (2.5-4.9); POTASSIUM 3.5 mmol/L (3.5-5.1); UREA NITROGEN, BLOOD 17 mg/dL (7-18)
[2019-08-17] MEDS: DESMOPRESSIN 0.1 MG TABLET GT SCH (08:58)
[2019-08-17] MEDS: ACIDOPHILUS/BULGARICUS CHEW TAB GT SCH ×2 (08:59→20:37)
[2019-08-17] MEDS: PHENYTOIN 100 MG/4 ML UDC GT SCH ×2 (08:59→20:37)
[2019-08-17] MEDS: levETIRAcetam 500 MG/5 ML LIQUID UDC GT SCH ×2 (09:00→20:42)
[2019-08-17] MEDS: FUROSEMIDE 20 MG/2 ML GT SCH (09:00)
[2019-08-17] MEDS: POTASSIUM CHLORIDE 40 MEQ/30 ML LIQUID UDC GT SCH (09:00)
[2019-08-17] MEDS: COD LIVER OIL/ZINC OXIDE OINT 113 GM TUBE TOP SCH ×2 (09:01→20:42)
[2019-08-17] MEDS: HYDROGEN PEROXIDE 3% 118 ML BOTTLE TP SCH ×2 (09:35→18:51)
--- NOTE | 2019-08-17 10:45 | NUR ---
patient with a temp of 94.0, Som hugger applied as ordered, will continue monitoring temperature.
[2019-08-17 10:47] VITALS: BP 100/56
--- NOTE | 2019-08-17 11:30 | NUR ---
patient continues with Som hugger,effective, temperature 97.0 at this time.
--- NOTE | 2019-08-17 13:00 | NUR ---
patient's temperature 98.0 at this time, will continue monitoring.
[2019-08-17 20:00] VITALS: BP 95/55
[2019-08-17] MEDS: FOLIC ACID 1 MG TABLET GT SCH (20:37)
[2019-08-17] MEDS: THIAMINE HCL 100 MG TABLET GT SCH (20:41)
[2019-08-17] MEDS: CHOLECALCIFEROL 1,000 UNIT TABLET GT SCH (20:41)
[2019-08-18] MEDS: ALBUTEROL SULFATE 2.5 MG/3 ML NEBU NEB SCH ×6 (02:33→23:07)
[2019-08-18] MEDS: IPRATROPIUM BROMIDE 0.5 MG/2.5 ML NEBU NEB SCH ×6 (02:33→23:07)
[2019-08-18 04:03] VITALS: BP 121/68
[2019-08-18] MEDS: MIDODRINE HCL 10 MG TABLET GT SCH ×3 (06:00→22:01)
[2019-08-18] MEDS: OMEPRAZOLE 20 MG CAPSULE.DR GT SCH (06:09)
[2019-08-18] MEDS: BACLOFEN 10 MG TABLET GT SCH ×3 (06:09→22:01)
[2019-08-18] MEDS: BACLOFEN 20 MG TABLET GT SCH ×3 (06:09→22:01)
[2019-08-18] MEDS: METOCLOPRAMIDE HCL 5 MG TABLET GT SCH ×3 (06:09→22:01)
[2019-08-18] MEDS: HYDROGEN PEROXIDE 3% 118 ML BOTTLE TP SCH ×2 (07:31→21:10)
[2019-08-18 08:03] VITALS: BP 105/68
[2019-08-18] MEDS: DESMOPRESSIN 0.1 MG TABLET GT SCH (09:08)
[2019-08-18] MEDS: PHENYTOIN 100 MG/4 ML UDC GT SCH ×2 (09:10→20:27)
[2019-08-18] MEDS: levETIRAcetam 500 MG/5 ML LIQUID UDC GT SCH ×2 (09:11→20:27)
[2019-08-18] MEDS: ACIDOPHILUS/BULGARICUS CHEW TAB GT SCH ×2 (09:11→20:27)
[2019-08-18] MEDS: FUROSEMIDE 20 MG/2 ML GT SCH (09:12)
[2019-08-18] MEDS: POTASSIUM CHLORIDE 40 MEQ/30 ML LIQUID UDC GT SCH (09:13)
[2019-08-18] MEDS: COD LIVER OIL/ZINC OXIDE OINT 113 GM TUBE TOP SCH ×2 (09:14→20:28)
[2019-08-18] MEDS: VITAL AF 1.2 1,000 ML LIQUID GT SCH (13:32)
--- NOTE | 2019-08-18 19:30 | NUR ---
PT RECEIVED ON CONTINUOUS VENT , TRACH TUBE IN PLACE PATENT AND SECURE WITH TRACH TIE. AMBU BAG AND BACK-UP TRACH AT BEDSIDE. TRACH CARE DONE. TOLERATING CURRENT VENT SETTINGS WELL, NO DISTRESS NOTED AT THIS TIME. IN LINE TX GIVEN PER MD ORDER . SUCTION PRN. VENT ALARMS AUDIBLE, CHECKED AND RESET. WILL CONTINUE TO MONITOR.
[2019-08-18 20:00] VITALS: BP 110/50
[2019-08-18] MEDS: FOLIC ACID 1 MG TABLET GT SCH (20:27)
[2019-08-18] MEDS: CHOLECALCIFEROL 1,000 UNIT TABLET GT SCH (20:27)
[2019-08-18] MEDS: THIAMINE HCL 100 MG TABLET GT SCH (20:27)
[2019-08-19] MEDS: IPRATROPIUM BROMIDE 0.5 MG/2.5 ML NEBU NEB SCH ×7 (00:59→23:23)
[2019-08-19] MEDS: ALBUTEROL SULFATE 2.5 MG/3 ML NEBU NEB SCH ×7 (01:00→23:23)
[2019-08-19] MEDS: MIDODRINE HCL 10 MG TABLET GT SCH ×3 (06:00→22:00)
[2019-08-19] MEDS: OMEPRAZOLE 20 MG CAPSULE.DR GT SCH (06:22)
[2019-08-19] MEDS: BACLOFEN 20 MG TABLET GT SCH ×3 (06:22→21:59)
[2019-08-19] MEDS: BACLOFEN 10 MG TABLET GT SCH ×3 (06:22→21:59)
[2019-08-19] MEDS: METOCLOPRAMIDE HCL 5 MG TABLET GT SCH ×3 (06:22→22:03)
[2019-08-19 06:32] VITALS: BP 121/73
[2019-08-19 08:04] VITALS: BP 99/64
[2019-08-19] MEDS: DESMOPRESSIN 0.1 MG TABLET GT SCH (08:06)
[2019-08-19] MEDS: PHENYTOIN 100 MG/4 ML UDC GT SCH ×2 (08:06→21:56)
[2019-08-19] MEDS: ACIDOPHILUS/BULGARICUS CHEW TAB GT SCH ×2 (08:08→21:56)
[2019-08-19] MEDS: levETIRAcetam 500 MG/5 ML LIQUID UDC GT SCH ×2 (08:08→21:00)
[2019-08-19] MEDS: FUROSEMIDE 20 MG/2 ML GT SCH (08:10)
[2019-08-19] MEDS: COD LIVER OIL/ZINC OXIDE OINT 113 GM TUBE TOP SCH ×2 (08:11→21:00)
[2019-08-19] MEDS: POTASSIUM CHLORIDE 40 MEQ/30 ML LIQUID UDC GT SCH (08:11)
[2019-08-19] MEDS: HYDROGEN PEROXIDE 3% 118 ML BOTTLE TP SCH ×2 (09:00→21:44)
[2019-08-19] MEDS: VITAL AF 1.2 1,000 ML LIQUID GT SCH (14:25)
[2019-08-19 20:00] VITALS: BP 109/59
[2019-08-19] MEDS: CHOLECALCIFEROL 1,000 UNIT TABLET GT SCH (21:00)
[2019-08-19] MEDS: THIAMINE HCL 100 MG TABLET GT SCH (21:57)
[2019-08-19] MEDS: FOLIC ACID 1 MG TABLET GT SCH (21:58)
[2019-08-20] MEDS: IPRATROPIUM BROMIDE 0.5 MG/2.5 ML NEBU NEB SCH ×6 (03:11→22:40)
[2019-08-20] MEDS: ALBUTEROL SULFATE 2.5 MG/3 ML NEBU NEB SCH ×6 (03:11→22:40)
[2019-08-20] MEDS: BACLOFEN 10 MG TABLET GT SCH ×3 (06:37→21:17)
[2019-08-20] MEDS: BACLOFEN 20 MG TABLET GT SCH ×3 (06:37→21:17)
[2019-08-20] MEDS: MIDODRINE HCL 10 MG TABLET GT SCH ×3 (06:38→21:18)
[2019-08-20] MEDS: OMEPRAZOLE 20 MG CAPSULE.DR GT SCH (06:38)
[2019-08-20] MEDS: METOCLOPRAMIDE HCL 5 MG TABLET GT SCH ×3 (06:38→21:19)
[2019-08-20] MEDS: levETIRAcetam 500 MG/5 ML LIQUID UDC GT SCH ×2 (08:19→21:15)
[2019-08-20] MEDS: ACIDOPHILUS/BULGARICUS CHEW TAB GT SCH ×2 (08:19→21:15)
[2019-08-20] MEDS: DESMOPRESSIN 0.1 MG TABLET GT SCH (08:19)
[2019-08-20] MEDS: PHENYTOIN 100 MG/4 ML UDC GT SCH ×2 (08:19→21:14)
[2019-08-20] MEDS: FUROSEMIDE 20 MG/2 ML GT SCH (08:21)
[2019-08-20] MEDS: POTASSIUM CHLORIDE 40 MEQ/30 ML LIQUID UDC GT SCH (08:21)
[2019-08-20] MEDS: COD LIVER OIL/ZINC OXIDE OINT 113 GM TUBE TOP SCH ×2 (08:23→21:17)
[2019-08-20 08:30] VITALS: BP 103/63
[2019-08-20] MEDS: HYDROGEN PEROXIDE 3% 118 ML BOTTLE TP SCH ×2 (08:53→21:15)
--- NOTE | 2019-08-20 19:20 | NUR ---
Received pt on HT-50 ventilator with the following settings of SIMV-12, Vt-500, PEEP+5, PS-10, FIO2-2LPM bleed in, trached with Shiley#6 DCT trach, which is in the place and secure. No s/s of respiratory distress noted. Airway care done, pt responded to physical stimuli. In-line HHN tx with 2.5mg Albuterol+0.5mg Atrovent given, no adverse reaction noted. HME, HHN adaptor and Sx Garza changed. Pt has a gauze between her lips to prevent biting. Resus. bag and back up trach at bedside. Vent and alarms checked and reset.
[2019-08-20 20:00] VITALS: BP 127/77
[2019-08-20] MEDS: FOLIC ACID 1 MG TABLET GT SCH (21:15)
[2019-08-20] MEDS: CHOLECALCIFEROL 1,000 UNIT TABLET GT SCH (21:16)
[2019-08-20] MEDS: THIAMINE HCL 100 MG TABLET GT SCH (21:16)
[2019-08-21] MEDS: ALBUTEROL SULFATE 2.5 MG/3 ML NEBU NEB SCH ×6 (02:41→22:40)
[2019-08-21] MEDS: IPRATROPIUM BROMIDE 0.5 MG/2.5 ML NEBU NEB SCH ×6 (02:41→22:40)
[2019-08-21] MEDS: BACLOFEN 10 MG TABLET GT SCH ×3 (05:55→22:12)
[2019-08-21] MEDS: OMEPRAZOLE 20 MG CAPSULE.DR GT SCH (05:56)
[2019-08-21] MEDS: BACLOFEN 20 MG TABLET GT SCH ×3 (05:56→22:12)
[2019-08-21] MEDS: METOCLOPRAMIDE HCL 5 MG TABLET GT SCH ×3 (05:56→22:12)
[2019-08-21] MEDS: MIDODRINE HCL 10 MG TABLET GT SCH ×3 (05:56→22:00)
[2019-08-21] MEDS: COD LIVER OIL/ZINC OXIDE OINT 113 GM TUBE TOP SCH ×2 (08:08→20:40)
[2019-08-21] MEDS: ACIDOPHILUS/BULGARICUS CHEW TAB GT SCH ×2 (08:08→20:38)
[2019-08-21] MEDS: DESMOPRESSIN 0.1 MG TABLET GT SCH (08:08)
[2019-08-21] MEDS: levETIRAcetam 500 MG/5 ML LIQUID UDC GT SCH ×2 (08:08→20:38)
[2019-08-21] MEDS: POTASSIUM CHLORIDE 40 MEQ/30 ML LIQUID UDC GT SCH (08:08)
[2019-08-21] MEDS: FUROSEMIDE 20 MG/2 ML GT SCH (08:08)
[2019-08-21] MEDS: PHENYTOIN 100 MG/4 ML UDC GT SCH ×2 (08:08→20:38)
[2019-08-21] MEDS: HYDROGEN PEROXIDE 3% 118 ML BOTTLE TP SCH ×2 (08:30→20:59)
[2019-08-21 11:19] VITALS: BP 112/70
[2019-08-21 20:16] VITALS: BP 128/69
[2019-08-21] MEDS: FOLIC ACID 1 MG TABLET GT SCH (20:38)
[2019-08-21] MEDS: THIAMINE HCL 100 MG TABLET GT SCH (20:39)
[2019-08-21] MEDS: CHOLECALCIFEROL 1,000 UNIT TABLET GT SCH (20:40)
[2019-08-22] MEDS: IPRATROPIUM BROMIDE 0.5 MG/2.5 ML NEBU NEB SCH ×6 (02:39→22:40)
[2019-08-22] MEDS: ALBUTEROL SULFATE 2.5 MG/3 ML NEBU NEB SCH ×6 (02:39→22:40)
[2019-08-22] MEDS: BACLOFEN 10 MG TABLET GT SCH ×3 (05:43→21:24)
[2019-08-22] MEDS: MIDODRINE HCL 10 MG TABLET GT SCH ×3 (05:43→21:24)
[2019-08-22] MEDS: BACLOFEN 20 MG TABLET GT SCH ×3 (05:43→21:24)
[2019-08-22] MEDS: OMEPRAZOLE 20 MG CAPSULE.DR GT SCH (05:44)
[2019-08-22] MEDS: METOCLOPRAMIDE HCL 5 MG TABLET GT SCH ×3 (05:44→21:24)
[2019-08-22] MEDS: HYDROGEN PEROXIDE 3% 118 ML BOTTLE TP SCH ×2 (08:17→20:55)
[2019-08-22] MEDS: ACIDOPHILUS/BULGARICUS CHEW TAB GT SCH ×2 (09:04→21:21)
[2019-08-22] MEDS: DESMOPRESSIN 0.1 MG TABLET GT SCH (09:04)
[2019-08-22] MEDS: PHENYTOIN 100 MG/4 ML UDC GT SCH ×2 (09:04→21:21)
[2019-08-22 09:05] VITALS: BP 104/65
[2019-08-22] MEDS: FUROSEMIDE 20 MG/2 ML GT SCH (09:05)
[2019-08-22] MEDS: levETIRAcetam 500 MG/5 ML LIQUID UDC GT SCH ×2 (09:05→21:23)
[2019-08-22] MEDS: COD LIVER OIL/ZINC OXIDE OINT 113 GM TUBE TOP SCH ×2 (09:06→21:24)
[2019-08-22] MEDS: POTASSIUM CHLORIDE 40 MEQ/30 ML LIQUID UDC GT SCH (09:06)
--- NOTE | 2019-08-22 19:07 | NUR ---
Received pt on HT-50 ventilator with the following settings of SIMV-12, Vt-500, PEEP+5, PS-10, FIO2-2LPM bleed in, trached with Susyley#6 DCT trach, which is in the place and secure. No s/s of respiratory distress noted. Airway care done, pt responded to physical stimuli. In-line HHN tx with 2.5mg Albuterol+0.5mg Atrovent given, no adverse reaction noted. HME changed. Pt has a gauze between her lips to prevent biting. Resus. bag and back up trach at bedside. Vent and alarms checked and reset.
[2019-08-22] MEDS: FOLIC ACID 1 MG TABLET GT SCH (21:22)
[2019-08-22] MEDS: THIAMINE HCL 100 MG TABLET GT SCH (21:23)
[2019-08-22] MEDS: CHOLECALCIFEROL 1,000 UNIT TABLET GT SCH (21:24)
[2019-08-22 21:42] VITALS: BP 130/77
[2019-08-23] MEDS: IPRATROPIUM BROMIDE 0.5 MG/2.5 ML NEBU NEB SCH ×6 (02:40→23:00)
[2019-08-23] MEDS: ALBUTEROL SULFATE 2.5 MG/3 ML NEBU NEB SCH ×6 (02:40→23:00)
[2019-08-23] MEDS: BACLOFEN 10 MG TABLET GT SCH ×3 (05:10→21:27)
[2019-08-23] MEDS: MIDODRINE HCL 10 MG TABLET GT SCH ×3 (05:11→21:28)
[2019-08-23] MEDS: BACLOFEN 20 MG TABLET GT SCH ×3 (05:11→21:28)
[2019-08-23] MEDS: OMEPRAZOLE 20 MG CAPSULE.DR GT SCH (05:11)
[2019-08-23] MEDS: METOCLOPRAMIDE HCL 5 MG TABLET GT SCH ×3 (05:11→21:28)
[2019-08-23] MEDS: PHENYTOIN 100 MG/4 ML UDC GT SCH ×2 (09:02→21:27)
[2019-08-23] MEDS: DESMOPRESSIN 0.1 MG TABLET GT SCH (09:02)
[2019-08-23] MEDS: ACIDOPHILUS/BULGARICUS CHEW TAB GT SCH ×2 (09:02→21:27)
[2019-08-23] MEDS: levETIRAcetam 500 MG/5 ML LIQUID UDC GT SCH ×2 (09:03→21:27)
[2019-08-23] MEDS: COD LIVER OIL/ZINC OXIDE OINT 113 GM TUBE TOP SCH ×2 (09:06→21:27)
[2019-08-23] MEDS: FUROSEMIDE 20 MG/2 ML GT SCH (09:06)
[2019-08-23] MEDS: POTASSIUM CHLORIDE 40 MEQ/30 ML LIQUID UDC GT SCH (09:06)
[2019-08-23] MEDS: HYDROGEN PEROXIDE 3% 118 ML BOTTLE TP SCH ×2 (09:30→21:09)
[2019-08-23 10:58] VITALS: BP 98/49
[2019-08-23 20:31] VITALS: BP 99/50
[2019-08-23] MEDS: THIAMINE HCL 100 MG TABLET GT SCH (21:27)
[2019-08-23] MEDS: CHOLECALCIFEROL 1,000 UNIT TABLET GT SCH (21:27)
[2019-08-23] MEDS: FOLIC ACID 1 MG TABLET GT SCH (21:27)
[2019-08-24] MEDS: IPRATROPIUM BROMIDE 0.5 MG/2.5 ML NEBU NEB SCH ×6 (02:58→22:46)
[2019-08-24] MEDS: ALBUTEROL SULFATE 2.5 MG/3 ML NEBU NEB SCH ×6 (02:58→22:46)
[2019-08-24] MEDS: BACLOFEN 20 MG TABLET GT SCH ×3 (05:05→21:12)
[2019-08-24] MEDS: BACLOFEN 10 MG TABLET GT SCH ×3 (05:05→21:13)
[2019-08-24] MEDS: METOCLOPRAMIDE HCL 5 MG TABLET GT SCH ×3 (05:06→21:15)
[2019-08-24] MEDS: MIDODRINE HCL 10 MG TABLET GT SCH ×3 (05:06→21:15)
[2019-08-24] MEDS: OMEPRAZOLE 20 MG CAPSULE.DR GT SCH (05:06)
[2019-08-24] MEDS: DESMOPRESSIN 0.1 MG TABLET GT SCH (08:39)
[2019-08-24] MEDS: POTASSIUM CHLORIDE 40 MEQ/30 ML LIQUID UDC GT SCH (08:40)
[2019-08-24] MEDS: PHENYTOIN 100 MG/4 ML UDC GT SCH ×2 (08:40→21:10)
[2019-08-24] MEDS: levETIRAcetam 500 MG/5 ML LIQUID UDC GT SCH ×2 (08:40→21:11)
[2019-08-24] MEDS: FUROSEMIDE 20 MG/2 ML GT SCH (08:40)
[2019-08-24] MEDS: ACIDOPHILUS/BULGARICUS CHEW TAB GT SCH ×2 (08:40→21:10)
[2019-08-24] MEDS: COD LIVER OIL/ZINC OXIDE OINT 113 GM TUBE TOP SCH ×2 (08:42→21:12)
[2019-08-24] MEDS: HYDROGEN PEROXIDE 3% 118 ML BOTTLE TP SCH ×2 (09:47→21:43)
[2019-08-24 11:32] VITALS: BP 111/63
[2019-08-24] MEDS: VITAL AF 1.2 1,000 ML LIQUID GT SCH (13:57)
[2019-08-24 20:00] VITALS: BP 106/72
[2019-08-24] MEDS: FOLIC ACID 1 MG TABLET GT SCH (21:11)
[2019-08-24] MEDS: CHOLECALCIFEROL 1,000 UNIT TABLET GT SCH (21:12)
[2019-08-24] MEDS: THIAMINE HCL 100 MG TABLET GT SCH (21:12)
[2019-08-25] MEDS: ALBUTEROL SULFATE 2.5 MG/3 ML NEBU NEB SCH ×6 (03:30→23:09)
[2019-08-25] MEDS: IPRATROPIUM BROMIDE 0.5 MG/2.5 ML NEBU NEB SCH ×6 (03:30→23:09)
[2019-08-25] MEDS: BACLOFEN 10 MG TABLET GT SCH ×3 (05:09→22:01)
[2019-08-25] MEDS: BACLOFEN 20 MG TABLET GT SCH ×3 (05:10→22:01)
[2019-08-25] MEDS: MIDODRINE HCL 10 MG TABLET GT SCH ×3 (05:11→22:02)
[2019-08-25] MEDS: METOCLOPRAMIDE HCL 5 MG TABLET GT SCH ×3 (05:12→22:02)
[2019-08-25] MEDS: OMEPRAZOLE 20 MG CAPSULE.DR GT SCH (05:12)
[2019-08-25 08:30] VITALS: BP 116/73
[2019-08-25] MEDS: PHENYTOIN 100 MG/4 ML UDC GT SCH ×2 (08:35→20:48)
[2019-08-25] MEDS: ACIDOPHILUS/BULGARICUS CHEW TAB GT SCH ×2 (08:35→20:48)
[2019-08-25] MEDS: DESMOPRESSIN 0.1 MG TABLET GT SCH (08:35)
[2019-08-25] MEDS: levETIRAcetam 500 MG/5 ML LIQUID UDC GT SCH ×2 (08:36→20:49)
[2019-08-25] MEDS: POTASSIUM CHLORIDE 40 MEQ/30 ML LIQUID UDC GT SCH (08:37)
[2019-08-25] MEDS: COD LIVER OIL/ZINC OXIDE OINT 113 GM TUBE TOP SCH ×2 (08:37→20:49)
[2019-08-25] MEDS: FUROSEMIDE 20 MG/2 ML GT SCH (08:37)
[2019-08-25] MEDS: HYDROGEN PEROXIDE 3% 118 ML BOTTLE TP SCH ×2 (09:54→21:13)
[2019-08-25] MEDS: VITAL AF 1.2 1,000 ML LIQUID GT SCH (14:02)
[2019-08-25 20:15] VITALS: BP 96/64
[2019-08-25] MEDS: FOLIC ACID 1 MG TABLET GT SCH (20:48)
[2019-08-25] MEDS: THIAMINE HCL 100 MG TABLET GT SCH (20:49)
[2019-08-25] MEDS: CHOLECALCIFEROL 1,000 UNIT TABLET GT SCH (20:49)
[2019-08-26] MEDS: ALBUTEROL SULFATE 2.5 MG/3 ML NEBU NEB SCH ×6 (03:23→23:05)
[2019-08-26] MEDS: IPRATROPIUM BROMIDE 0.5 MG/2.5 ML NEBU NEB SCH ×6 (03:23→23:05)
[2019-08-26] MEDS: BACLOFEN 10 MG TABLET GT SCH ×3 (05:24→21:50)
[2019-08-26] MEDS: MIDODRINE HCL 10 MG TABLET GT SCH ×3 (05:24→21:51)
[2019-08-26] MEDS: BACLOFEN 20 MG TABLET GT SCH ×3 (05:24→21:50)
[2019-08-26] MEDS: OMEPRAZOLE 20 MG CAPSULE.DR GT SCH (05:25)
[2019-08-26] MEDS: METOCLOPRAMIDE HCL 5 MG TABLET GT SCH ×3 (05:25→21:51)
[2019-08-26 08:00] VITALS: BP 97/56
[2019-08-26] MEDS: HYDROGEN PEROXIDE 3% 118 ML BOTTLE TP SCH ×2 (08:09→21:00)
[2019-08-26] MEDS: DESMOPRESSIN 0.1 MG TABLET GT SCH (08:22)
[2019-08-26] MEDS: PHENYTOIN 100 MG/4 ML UDC GT SCH ×2 (08:22→20:53)
[2019-08-26] MEDS: ACIDOPHILUS/BULGARICUS CHEW TAB GT SCH ×2 (08:26→20:53)
[2019-08-26] MEDS: levETIRAcetam 500 MG/5 ML LIQUID UDC GT SCH ×2 (08:26→20:53)
[2019-08-26] MEDS: FUROSEMIDE 20 MG/2 ML GT SCH (08:27)
[2019-08-26] MEDS: POTASSIUM CHLORIDE 40 MEQ/30 ML LIQUID UDC GT SCH (08:28)
[2019-08-26] MEDS: COD LIVER OIL/ZINC OXIDE OINT 113 GM TUBE TOP SCH ×2 (08:28→20:54)
[2019-08-26] MEDS: VITAL AF 1.2 1,000 ML LIQUID GT SCH (14:38)
[2019-08-26] MEDS: FOLIC ACID 1 MG TABLET GT SCH (20:53)
[2019-08-26] MEDS: THIAMINE HCL 100 MG TABLET GT SCH (20:54)
[2019-08-26] MEDS: CHOLECALCIFEROL 1,000 UNIT TABLET GT SCH (20:54)
[2019-08-26 22:01] VITALS: BP 112/67
--- NOTE | 2019-08-27 00:40 | NUR ---
Resident endorsed on mechanical ventilation with ordered vent settings. No signs of respiratory distress noted. Inline treatments administered and tolerated well, no adverse reactions noted. Airway patent and secure. Alarms are on and audible. Spare trach at bedside. Will continue to monitor.
[2019-08-27] MEDS: ALBUTEROL SULFATE 2.5 MG/3 ML NEBU NEB SCH ×6 (02:39→23:36)
[2019-08-27] MEDS: IPRATROPIUM BROMIDE 0.5 MG/2.5 ML NEBU NEB SCH ×6 (02:39→23:36)
[2019-08-27] MEDS: BACLOFEN 20 MG TABLET GT SCH ×3 (05:01→21:30)
[2019-08-27] MEDS: BACLOFEN 10 MG TABLET GT SCH ×3 (05:01→21:30)
[2019-08-27] MEDS: METOCLOPRAMIDE HCL 5 MG TABLET GT SCH ×3 (05:02→21:30)
[2019-08-27] MEDS: OMEPRAZOLE 20 MG CAPSULE.DR GT SCH (05:02)
[2019-08-27] MEDS: MIDODRINE HCL 10 MG TABLET GT SCH ×3 (05:02→21:30)
[2019-08-27 08:00] VITALS: BP 97/58
[2019-08-27] MEDS: PHENYTOIN 100 MG/4 ML UDC GT SCH ×2 (08:05→20:51)
[2019-08-27] MEDS: DESMOPRESSIN 0.1 MG TABLET GT SCH (08:05)
[2019-08-27] MEDS: BISACODYL 10 MG SUPP.RECT RC PRN (08:05)
[2019-08-27] MEDS: ACIDOPHILUS/BULGARICUS CHEW TAB GT SCH ×2 (08:06→20:51)
[2019-08-27] MEDS: levETIRAcetam 500 MG/5 ML LIQUID UDC GT SCH ×2 (08:07→20:52)
[2019-08-27] MEDS: FUROSEMIDE 20 MG/2 ML GT SCH (08:08)
[2019-08-27] MEDS: COD LIVER OIL/ZINC OXIDE OINT 113 GM TUBE TOP SCH ×2 (08:09→20:52)
[2019-08-27] MEDS: POTASSIUM CHLORIDE 40 MEQ/30 ML LIQUID UDC GT SCH (08:09)
[2019-08-27] MEDS: VITAL AF 1.2 1,000 ML LIQUID GT SCH (12:57)
[2019-08-27] MEDS: HYDROGEN PEROXIDE 3% 118 ML BOTTLE TP SCH ×2 (16:30→21:20)
[2019-08-27] MEDS: THIAMINE HCL 100 MG TABLET GT SCH (20:52)
[2019-08-27] MEDS: CHOLECALCIFEROL 1,000 UNIT TABLET GT SCH (20:52)
[2019-08-27] MEDS: FOLIC ACID 1 MG TABLET GT SCH (20:52)
[2019-08-27 22:06] VITALS: BP 101/60
[2019-08-28] MEDS: ALBUTEROL SULFATE 2.5 MG/3 ML NEBU NEB SCH ×6 (03:30→22:35)
[2019-08-28] MEDS: IPRATROPIUM BROMIDE 0.5 MG/2.5 ML NEBU NEB SCH ×6 (03:30→22:35)
[2019-08-28] MEDS: BACLOFEN 10 MG TABLET GT SCH ×3 (05:01→22:00)
[2019-08-28] MEDS: BACLOFEN 20 MG TABLET GT SCH ×3 (05:01→22:00)
[2019-08-28] MEDS: MIDODRINE HCL 10 MG TABLET GT SCH ×3 (05:02→22:00)
[2019-08-28] MEDS: OMEPRAZOLE 20 MG CAPSULE.DR GT SCH (05:02)
[2019-08-28] MEDS: METOCLOPRAMIDE HCL 5 MG TABLET GT SCH ×3 (05:02→22:00)
[2019-08-28] MEDS: HYDROGEN PEROXIDE 3% 118 ML BOTTLE TP SCH ×2 (07:45→19:00)
[2019-08-28 08:30] VITALS: BP 109/71
[2019-08-28] MEDS: POTASSIUM CHLORIDE 40 MEQ/30 ML LIQUID UDC GT SCH (09:53)
[2019-08-28] MEDS: PHENYTOIN 100 MG/4 ML UDC GT SCH ×2 (09:53→20:16)
[2019-08-28] MEDS: FUROSEMIDE 20 MG/2 ML GT SCH (09:53)
[2019-08-28] MEDS: DESMOPRESSIN 0.1 MG TABLET GT SCH (09:53)
[2019-08-28] MEDS: levETIRAcetam 500 MG/5 ML LIQUID UDC GT SCH ×2 (09:53→20:16)
[2019-08-28] MEDS: ACIDOPHILUS/BULGARICUS CHEW TAB GT SCH ×2 (09:53→20:16)
[2019-08-28] MEDS: COD LIVER OIL/ZINC OXIDE OINT 113 GM TUBE TOP SCH ×2 (09:53→20:16)
[2019-08-28] MEDS: VITAL AF 1.2 1,000 ML LIQUID GT SCH (14:24)
[2019-08-28] MEDS: THIAMINE HCL 100 MG TABLET GT SCH (20:16)
[2019-08-28] MEDS: CHOLECALCIFEROL 1,000 UNIT TABLET GT SCH (20:16)
[2019-08-28] MEDS: FOLIC ACID 1 MG TABLET GT SCH (20:16)
[2019-08-28 22:09] VITALS: BP 110/57
[2019-08-29] MEDS: IPRATROPIUM BROMIDE 0.5 MG/2.5 ML NEBU NEB SCH ×6 (02:33→23:45)
[2019-08-29] MEDS: ALBUTEROL SULFATE 2.5 MG/3 ML NEBU NEB SCH ×6 (02:33→23:45)
[2019-08-29] MEDS: BACLOFEN 10 MG TABLET GT SCH ×3 (05:24→22:00)
[2019-08-29] MEDS: BACLOFEN 20 MG TABLET GT SCH ×3 (05:24→22:00)
[2019-08-29] MEDS: METOCLOPRAMIDE HCL 5 MG TABLET GT SCH ×3 (05:25→22:00)
[2019-08-29] MEDS: MIDODRINE HCL 10 MG TABLET GT SCH ×3 (05:25→22:00)
[2019-08-29] MEDS: OMEPRAZOLE 20 MG CAPSULE.DR GT SCH (05:25)
[2019-08-29] MEDS: ACIDOPHILUS/BULGARICUS CHEW TAB GT SCH ×2 (08:26→20:44)
[2019-08-29] MEDS: FUROSEMIDE 20 MG/2 ML GT SCH (08:26)
[2019-08-29] MEDS: DESMOPRESSIN 0.1 MG TABLET GT SCH (08:26)
[2019-08-29] MEDS: PHENYTOIN 100 MG/4 ML UDC GT SCH ×2 (08:26→20:44)
[2019-08-29] MEDS: COD LIVER OIL/ZINC OXIDE OINT 113 GM TUBE TOP SCH ×2 (08:26→20:46)
[2019-08-29] MEDS: levETIRAcetam 500 MG/5 ML LIQUID UDC GT SCH ×2 (08:26→20:45)
[2019-08-29] MEDS: POTASSIUM CHLORIDE 40 MEQ/30 ML LIQUID UDC GT SCH (08:26)
[2019-08-29 09:16] VITALS: BP 94/60
[2019-08-29] MEDS: HYDROGEN PEROXIDE 3% 118 ML BOTTLE TP SCH ×2 (09:48→20:25)
[2019-08-29] MEDS: VITAL AF 1.2 1,000 ML LIQUID GT SCH (15:32)
[2019-08-29] MEDS: FOLIC ACID 1 MG TABLET GT SCH (20:44)
[2019-08-29] MEDS: CHOLECALCIFEROL 1,000 UNIT TABLET GT SCH (20:46)
[2019-08-29] MEDS: THIAMINE HCL 100 MG TABLET GT SCH (20:46)
[2019-08-29 20:53] VITALS: BP 105/63
[2019-08-30] MEDS: IPRATROPIUM BROMIDE 0.5 MG/2.5 ML NEBU NEB SCH ×6 (02:48→22:37)
[2019-08-30] MEDS: ALBUTEROL SULFATE 2.5 MG/3 ML NEBU NEB SCH ×6 (02:48→22:37)
[2019-08-30] MEDS: BACLOFEN 20 MG TABLET GT SCH ×3 (05:48→21:25)
[2019-08-30] MEDS: OMEPRAZOLE 20 MG CAPSULE.DR GT SCH (05:48)
[2019-08-30] MEDS: MIDODRINE HCL 10 MG TABLET GT SCH ×3 (05:48→21:26)
[2019-08-30] MEDS: BACLOFEN 10 MG TABLET GT SCH ×3 (05:48→21:25)
[2019-08-30] MEDS: METOCLOPRAMIDE HCL 5 MG TABLET GT SCH ×3 (05:48→21:26)
[2019-08-30 05:49] VITALS: BP 112/68
[2019-08-30 08:03] LABS: CARBON DIOXIDE 23 mmol/L (21-32); CHLORIDE 107 mmol/L (98-107); CREATININE 0.5 mg/dL (0.6-1.3); GLUCOSE 107 mg/dL (74-106); MAGNESIUM 1.9 mg/dL (1.8-2.4); POTASSIUM 3.6 mmol/L (3.5-5.1); UREA NITROGEN, BLOOD 20 mg/dL (7-18)
[2019-08-30 08:23] LABS: BASOPHILS % (AUTO) 0.4 % (0.0-2.0); EOSINOPHILS # (AUTO) 0.3 K/uL (0.0-0.7); EOSINOPHILS % (AUTO) 4.9 % (0.0-7.0); HEMATOCRIT 32.2 % (31.2-41.9); HEMOGLOBIN 11.1 g/dL (10.9-14.3); LYMPHOCYTES # (AUTO) 1.4 K/uL (20.0-40.0); MEAN CORPUSCULAR HEMOGLOBIN 32.3 uug (24.7-32.8); MEAN CORPUSCULAR HGB CONC 34 g/dL (32.3-35.6); MEAN CORPUSCULAR VOLUME 93.8 fL (75.5-95.3); MONOCYTES # (AUTO) 0.3 K/uL (2.0-10.0); NEUTROPHILS # (AUTO) 4.8 K/uL (1.8-8.9); NEUTROPHILS % (AUTO) 69.7 % (38.5-71.5); PLATELET COUNT (AUTO) 299 K/uL (179-408); RED BLOOD CELL COUNT(AUTO) 3.43 MIL/uL (3.63-4.92)
[2019-08-30] MEDS: COD LIVER OIL/ZINC OXIDE OINT 113 GM TUBE TOP SCH ×2 (08:23→21:25)
[2019-08-30] MEDS: PHENYTOIN 100 MG/4 ML UDC GT SCH ×2 (08:23→21:21)
[2019-08-30] MEDS: DESMOPRESSIN 0.1 MG TABLET GT SCH (08:23)
[2019-08-30] MEDS: levETIRAcetam 500 MG/5 ML LIQUID UDC GT SCH ×2 (08:23→21:22)
[2019-08-30] MEDS: ACIDOPHILUS/BULGARICUS CHEW TAB GT SCH ×2 (08:23→21:21)
[2019-08-30] MEDS: FUROSEMIDE 20 MG/2 ML GT SCH (08:23)
[2019-08-30] MEDS: POTASSIUM CHLORIDE 40 MEQ/30 ML LIQUID UDC GT SCH (08:23)
[2019-08-30 08:36] LABS: WHITE BLOOD COUNT (AUTO) 6.9 K/uL (3.8-11.8)
[2019-08-30] MEDS: HYDROGEN PEROXIDE 3% 118 ML BOTTLE TP SCH ×2 (09:00→21:07)
[2019-08-30 09:03] VITALS: BP 98/64
--- NOTE | 2019-08-30 13:53 | NUR ---
Pharmacy Update from Today's 08/30/19 IDT Meeting Note: Patient was transferred to [facility] 03/16-04/09 for PHARMACOLOGY PROFESSOR shunt placement per neurosurgeon, completed procedure, however later developed sepsis 2/2 UTI. Patient was stabilized and treated in CCU, now readmitted to on micafungin (antonette in Ucx, elevated wbc) VS: Temp 97 BP 112/68 HR 69 LABS: (from 08/30/19) Wbc 6.9 H/H 11.1/32.2 Plt 299 Na 140 K 3.6 Cl 107 CO2 23 BUN/Scr 20/0.5 BS 107 Ca 8.9 Phos 4.0 Mg 1.9 MEDICATION USE REVIEWED: > Pt not on any anti-psych medications > Pt on Keppra 1000mg q12h since 04/10/19; CrCl >100ml/min, renal function ok for current dose. No seizure episodes noted since transfer. > Pt on Phenytoin 200mg q12hr Since 07/18/19. Last level per Rx rec on 07/27/19 and resulted within range at 9.9 (corrected 13.0). No seizures noted > Ativan 1mg q6hprn seizures on board. None used since admit. No seizures noted > Pt now on DDAVP 0.05mg GT daily since 06/22/19 for diabetes insipidus > Continues on metoclopramide 5mg q8h for abdominal distension, h/o gastroparesis, ok per renal function > Continues omeprazole 20mg daily for GI prophylaxis, ok per renal function PRN MED USAGE: (Jul) Ativan for seizures used x0 Artificial Tears used x0 Bisacodyl Supp used x0 MOM used x0 OTHER ORDERS NOTED: > NA Pt was reviewed and discussed in depth with no concerns per staff. No further recs at this time as pt remains stable on current regimen. Will continue follow
[2019-08-30] MEDS: VITAL AF 1.2 1,000 ML LIQUID GT SCH (14:04)
--- NOTE | 2019-08-30 14:50 | NUR ---
INTERDISCIPLINARY PLAN OF CARE CONFERENCE was held today. Patient's mother lives in [facility] and was not available to participate in the meeting. Dr. Wagner and the Interdisciplinary Team reviewed the current plan of care in detail. RN reported on patient's current medical condition and treatment for recent skin rashes. No major changes were reported in patient's condition. See RN IDT conference notes. See also all other disciplines IDT notes and physician's progress notes for additional details.
[2019-08-30 20:00] VITALS: BP 96/48
[2019-08-30] MEDS: FOLIC ACID 1 MG TABLET GT SCH (21:22)
[2019-08-30] MEDS: CHOLECALCIFEROL 1,000 UNIT TABLET GT SCH (21:24)
[2019-08-30] MEDS: THIAMINE HCL 100 MG TABLET GT SCH (21:24)
[2019-08-30] MEDS: TRIAMCINOLONE ACET 0.1% CREAM 15 GM TUBE TP SCH (21:25)
[2019-08-30] MEDS: NYSTATIN CREAM 30 GM TUBE TP SCH (21:25)
[2019-08-31] MEDS: IPRATROPIUM BROMIDE 0.5 MG/2.5 ML NEBU NEB SCH ×6 (02:38→22:33)
[2019-08-31] MEDS: ALBUTEROL SULFATE 2.5 MG/3 ML NEBU NEB SCH ×6 (02:38→22:33)
[2019-08-31] MEDS: BACLOFEN 20 MG TABLET GT SCH ×3 (05:16→21:33)
[2019-08-31] MEDS: BACLOFEN 10 MG TABLET GT SCH ×3 (05:16→21:33)
[2019-08-31] MEDS: OMEPRAZOLE 20 MG CAPSULE.DR GT SCH (05:17)
[2019-08-31] MEDS: MIDODRINE HCL 10 MG TABLET GT SCH ×3 (05:17→21:34)
[2019-08-31] MEDS: METOCLOPRAMIDE HCL 5 MG TABLET GT SCH ×3 (05:17→21:34)
[2019-08-31] MEDS: PHENYTOIN 100 MG/4 ML UDC GT SCH ×2 (08:07→21:27)
[2019-08-31] MEDS: ACIDOPHILUS/BULGARICUS CHEW TAB GT SCH ×2 (08:07→21:27)
[2019-08-31] MEDS: DESMOPRESSIN 0.1 MG TABLET GT SCH (08:07)
[2019-08-31] MEDS: POTASSIUM CHLORIDE 40 MEQ/30 ML LIQUID UDC GT SCH (08:09)
[2019-08-31] MEDS: levETIRAcetam 500 MG/5 ML LIQUID UDC GT SCH ×2 (08:09→21:31)
[2019-08-31] MEDS: COD LIVER OIL/ZINC OXIDE OINT 113 GM TUBE TOP SCH ×2 (08:09→21:32)
[2019-08-31] MEDS: TRIAMCINOLONE ACET 0.1% CREAM 15 GM TUBE TP SCH ×2 (08:10→21:32)
[2019-08-31] MEDS: NYSTATIN CREAM 30 GM TUBE TP SCH ×2 (08:10→21:33)
[2019-08-31] MEDS: HYDROGEN PEROXIDE 3% 118 ML BOTTLE TP SCH ×2 (09:00→18:56)
[2019-08-31] MEDS: FUROSEMIDE 20 MG/2 ML GT SCH (09:41)
[2019-08-31 11:11] VITALS: BP 121/63
[2019-08-31 20:00] VITALS: BP 99/65
[2019-08-31] MEDS: FOLIC ACID 1 MG TABLET GT SCH (21:28)
[2019-08-31] MEDS: THIAMINE HCL 100 MG TABLET GT SCH (21:31)
[2019-08-31] MEDS: CHOLECALCIFEROL 1,000 UNIT TABLET GT SCH (21:32)
[2019-09-01] MEDS: IPRATROPIUM BROMIDE 0.5 MG/2.5 ML NEBU NEB SCH ×6 (03:35→22:40)
[2019-09-01] MEDS: ALBUTEROL SULFATE 2.5 MG/3 ML NEBU NEB SCH ×6 (03:35→22:40)
[2019-09-01 05:10] VITALS: BP 109/58
[2019-09-01] MEDS: BACLOFEN 10 MG TABLET GT SCH ×3 (06:04→21:52)
[2019-09-01] MEDS: BACLOFEN 20 MG TABLET GT SCH ×3 (06:04→21:52)
[2019-09-01] MEDS: OMEPRAZOLE 20 MG CAPSULE.DR GT SCH (06:05)
[2019-09-01] MEDS: METOCLOPRAMIDE HCL 5 MG TABLET GT SCH ×3 (06:05→21:53)
[2019-09-01] MEDS: MIDODRINE HCL 10 MG TABLET GT SCH ×3 (06:05→21:52)
[2019-09-01 08:30] VITALS: BP 110/66
[2019-09-01] MEDS: NYSTATIN CREAM 30 GM TUBE TP SCH ×2 (09:45→21:51)
[2019-09-01] MEDS: FUROSEMIDE 20 MG/2 ML GT SCH (09:45)
[2019-09-01] MEDS: levETIRAcetam 500 MG/5 ML LIQUID UDC GT SCH ×2 (09:45→21:50)
[2019-09-01] MEDS: DESMOPRESSIN 0.1 MG TABLET GT SCH (09:45)
[2019-09-01] MEDS: ACIDOPHILUS/BULGARICUS CHEW TAB GT SCH ×2 (09:45→21:49)
[2019-09-01] MEDS: PHENYTOIN 100 MG/4 ML UDC GT SCH ×2 (09:45→21:49)
[2019-09-01] MEDS: COD LIVER OIL/ZINC OXIDE OINT 113 GM TUBE TOP SCH ×2 (09:45→21:51)
[2019-09-01] MEDS: TRIAMCINOLONE ACET 0.1% CREAM 15 GM TUBE TP SCH ×2 (09:45→21:51)
[2019-09-01] MEDS: POTASSIUM CHLORIDE 40 MEQ/30 ML LIQUID UDC GT SCH (09:45)
[2019-09-01] MEDS: HYDROGEN PEROXIDE 3% 118 ML BOTTLE TP SCH ×2 (09:47→21:04)
--- NOTE | 2019-09-01 17:45 | NUR ---
SEEN AND EXAMINED BY DR. ANDER WAY.
--- NOTE | 2019-09-01 19:08 | NUR ---
Received pt on HT-50 ventilator with the following settings of SIMV-12, Vt-500, PEEP+5, PS-10, FIO2-2LPM bleed in, trached with Susyley#6 DCT trach, which is in the place and secure. No respiratory distress noted. Airway care done, pt responded to physical stimuli. In-line HHN tx with 2.5mg Albuterol+0.5mg Atrovent given, no adverse reaction noted. HME changed. Pt has a gauze between her lips to prevent biting. Resus. bag and back up trach at bedside. Vent and alarms checked and reset.
[2019-09-01 20:00] VITALS: BP 103/62
[2019-09-01] MEDS: FOLIC ACID 1 MG TABLET GT SCH (21:49)
[2019-09-01] MEDS: THIAMINE HCL 100 MG TABLET GT SCH (21:51)
[2019-09-01] MEDS: CHOLECALCIFEROL 1,000 UNIT TABLET GT SCH (21:51)
[2019-09-02] MEDS: IPRATROPIUM BROMIDE 0.5 MG/2.5 ML NEBU NEB SCH ×6 (02:40→23:33)
[2019-09-02] MEDS: ALBUTEROL SULFATE 2.5 MG/3 ML NEBU NEB SCH ×6 (02:40→23:33)
[2019-09-02] MEDS: OMEPRAZOLE 20 MG CAPSULE.DR GT SCH (06:08)
[2019-09-02] MEDS: BACLOFEN 20 MG TABLET GT SCH ×3 (06:08→21:04)
[2019-09-02] MEDS: MIDODRINE HCL 10 MG TABLET GT SCH ×3 (06:08→21:04)
[2019-09-02] MEDS: METOCLOPRAMIDE HCL 5 MG TABLET GT SCH ×3 (06:08→21:04)
[2019-09-02] MEDS: BACLOFEN 10 MG TABLET GT SCH ×3 (06:08→21:04)
[2019-09-02 08:01] VITALS: BP 113/70
[2019-09-02] MEDS: DESMOPRESSIN 0.1 MG TABLET GT SCH (08:28)
[2019-09-02] MEDS: PHENYTOIN 100 MG/4 ML UDC GT SCH ×2 (08:28→20:22)
[2019-09-02] MEDS: ACIDOPHILUS/BULGARICUS CHEW TAB GT SCH ×2 (08:29→20:22)
[2019-09-02] MEDS: levETIRAcetam 500 MG/5 ML LIQUID UDC GT SCH ×2 (08:30→20:22)
[2019-09-02] MEDS: FUROSEMIDE 20 MG/2 ML GT SCH (08:30)
[2019-09-02] MEDS: POTASSIUM CHLORIDE 40 MEQ/30 ML LIQUID UDC GT SCH (08:31)
[2019-09-02] MEDS: NYSTATIN CREAM 30 GM TUBE TP SCH ×2 (08:31→20:22)
[2019-09-02] MEDS: COD LIVER OIL/ZINC OXIDE OINT 113 GM TUBE TOP SCH ×2 (08:31→20:22)
[2019-09-02] MEDS: TRIAMCINOLONE ACET 0.1% CREAM 15 GM TUBE TP SCH ×2 (08:31→20:22)
[2019-09-02] MEDS: HYDROGEN PEROXIDE 3% 118 ML BOTTLE TP SCH ×2 (09:57→21:35)
[2019-09-02 20:00] VITALS: BP 91/57
[2019-09-02] MEDS: FOLIC ACID 1 MG TABLET GT SCH (20:22)
[2019-09-02] MEDS: CHOLECALCIFEROL 1,000 UNIT TABLET GT SCH (20:22)
[2019-09-02] MEDS: THIAMINE HCL 100 MG TABLET GT SCH (20:22)
[2019-09-03] MEDS: ALBUTEROL SULFATE 2.5 MG/3 ML NEBU NEB SCH ×6 (03:03→22:45)
[2019-09-03] MEDS: IPRATROPIUM BROMIDE 0.5 MG/2.5 ML NEBU NEB SCH ×6 (03:03→22:45)
[2019-09-03] MEDS: BACLOFEN 20 MG TABLET GT SCH ×3 (05:34→21:20)
[2019-09-03] MEDS: BACLOFEN 10 MG TABLET GT SCH ×3 (05:34→21:20)
[2019-09-03] MEDS: OMEPRAZOLE 20 MG CAPSULE.DR GT SCH (05:35)
[2019-09-03] MEDS: METOCLOPRAMIDE HCL 5 MG TABLET GT SCH ×3 (05:35→21:21)
[2019-09-03] MEDS: MIDODRINE HCL 10 MG TABLET GT SCH ×3 (05:35→21:21)
[2019-09-03 08:00] VITALS: BP 122/53
[2019-09-03] MEDS: TRIAMCINOLONE ACET 0.1% CREAM 15 GM TUBE TP SCH ×2 (09:00→20:31)
[2019-09-03] MEDS: HYDROGEN PEROXIDE 3% 118 ML BOTTLE TP SCH ×2 (09:00→20:59)
[2019-09-03] MEDS: NYSTATIN CREAM 30 GM TUBE TP SCH ×2 (09:00→20:31)
[2019-09-03] MEDS: DESMOPRESSIN 0.1 MG TABLET GT SCH (09:03)
[2019-09-03] MEDS: PHENYTOIN 100 MG/4 ML UDC GT SCH ×2 (09:04→20:30)
[2019-09-03] MEDS: levETIRAcetam 500 MG/5 ML LIQUID UDC GT SCH ×2 (09:06→20:30)
[2019-09-03] MEDS: ACIDOPHILUS/BULGARICUS CHEW TAB GT SCH ×2 (09:06→20:30)
[2019-09-03] MEDS: FUROSEMIDE 20 MG/2 ML GT SCH (09:07)
[2019-09-03] MEDS: COD LIVER OIL/ZINC OXIDE OINT 113 GM TUBE TOP SCH ×2 (09:08→20:31)
[2019-09-03] MEDS: POTASSIUM CHLORIDE 40 MEQ/30 ML LIQUID UDC GT SCH (09:08)
[2019-09-03] MEDS: VITAL AF 1.2 1,000 ML LIQUID GT SCH (17:51)
[2019-09-03 20:00] VITALS: BP 113/70
[2019-09-03] MEDS: THIAMINE HCL 100 MG TABLET GT SCH (20:30)
[2019-09-03] MEDS: FOLIC ACID 1 MG TABLET GT SCH (20:30)
[2019-09-03] MEDS: CHOLECALCIFEROL 1,000 UNIT TABLET GT SCH (20:31)
[2019-09-04] MEDS: IPRATROPIUM BROMIDE 0.5 MG/2.5 ML NEBU NEB SCH ×6 (02:44→23:22)
[2019-09-04] MEDS: ALBUTEROL SULFATE 2.5 MG/3 ML NEBU NEB SCH ×6 (02:44→23:22)
[2019-09-04] MEDS: BACLOFEN 20 MG TABLET GT SCH ×3 (05:35→21:13)
[2019-09-04] MEDS: METOCLOPRAMIDE HCL 5 MG TABLET GT SCH ×3 (05:35→21:14)
[2019-09-04] MEDS: OMEPRAZOLE 20 MG CAPSULE.DR GT SCH (05:35)
[2019-09-04] MEDS: BACLOFEN 10 MG TABLET GT SCH ×3 (05:35→21:13)
[2019-09-04] MEDS: MIDODRINE HCL 10 MG TABLET GT SCH ×3 (05:35→21:14)
[2019-09-04] MEDS: DESMOPRESSIN 0.1 MG TABLET GT SCH (08:58)
[2019-09-04] MEDS: ACIDOPHILUS/BULGARICUS CHEW TAB GT SCH ×2 (08:59→20:46)
[2019-09-04] MEDS: PHENYTOIN 100 MG/4 ML UDC GT SCH ×2 (08:59→20:46)
[2019-09-04] MEDS: levETIRAcetam 500 MG/5 ML LIQUID UDC GT SCH ×2 (08:59→20:46)
[2019-09-04] MEDS: NYSTATIN CREAM 30 GM TUBE TP SCH ×2 (09:00→20:52)
[2019-09-04] MEDS: TRIAMCINOLONE ACET 0.1% CREAM 15 GM TUBE TP SCH ×2 (09:00→20:52)
[2019-09-04] MEDS: FUROSEMIDE 20 MG/2 ML GT SCH (09:00)
[2019-09-04] MEDS: HYDROGEN PEROXIDE 3% 118 ML BOTTLE TP SCH ×2 (09:00→21:43)
[2019-09-04] MEDS: POTASSIUM CHLORIDE 40 MEQ/30 ML LIQUID UDC GT SCH (09:00)
[2019-09-04] MEDS: COD LIVER OIL/ZINC OXIDE OINT 113 GM TUBE TOP SCH ×2 (09:01→20:47)
[2019-09-04 11:01] VITALS: BP 115/72
[2019-09-04] MEDS: VITAL AF 1.2 1,000 ML LIQUID GT SCH (17:11)
[2019-09-04 20:41] VITALS: BP 109/61
[2019-09-04] MEDS: THIAMINE HCL 100 MG TABLET GT SCH (20:46)
[2019-09-04] MEDS: CHOLECALCIFEROL 1,000 UNIT TABLET GT SCH (20:46)
[2019-09-04] MEDS: FOLIC ACID 1 MG TABLET GT SCH (20:46)
[2019-09-05] MEDS: ALBUTEROL SULFATE 2.5 MG/3 ML NEBU NEB SCH ×6 (02:42→22:40)
[2019-09-05] MEDS: IPRATROPIUM BROMIDE 0.5 MG/2.5 ML NEBU NEB SCH ×6 (02:42→22:40)
[2019-09-05] MEDS: BACLOFEN 10 MG TABLET GT SCH ×3 (05:47→21:32)
[2019-09-05] MEDS: BACLOFEN 20 MG TABLET GT SCH ×3 (05:47→21:32)
[2019-09-05] MEDS: MIDODRINE HCL 10 MG TABLET GT SCH ×3 (05:47→21:36)
[2019-09-05] MEDS: OMEPRAZOLE 20 MG CAPSULE.DR GT SCH (05:47)
[2019-09-05] MEDS: METOCLOPRAMIDE HCL 5 MG TABLET GT SCH ×3 (05:47→21:32)
[2019-09-05 07:36] VITALS: BP 118/66
[2019-09-05] MEDS: DESMOPRESSIN 0.1 MG TABLET GT SCH (08:41)
[2019-09-05] MEDS: levETIRAcetam 500 MG/5 ML LIQUID UDC GT SCH ×2 (08:41→21:30)
[2019-09-05] MEDS: FUROSEMIDE 20 MG/2 ML GT SCH (08:41)
[2019-09-05] MEDS: ACIDOPHILUS/BULGARICUS CHEW TAB GT SCH ×2 (08:41→21:30)
[2019-09-05] MEDS: PHENYTOIN 100 MG/4 ML UDC GT SCH ×2 (08:41→21:35)
[2019-09-05] MEDS: POTASSIUM CHLORIDE 40 MEQ/30 ML LIQUID UDC GT SCH (08:41)
[2019-09-05] MEDS: TRIAMCINOLONE ACET 0.1% CREAM 15 GM TUBE TP SCH ×2 (08:42→21:31)
[2019-09-05] MEDS: COD LIVER OIL/ZINC OXIDE OINT 113 GM TUBE TOP SCH ×2 (08:42→21:31)
[2019-09-05] MEDS: NYSTATIN CREAM 30 GM TUBE TP SCH ×2 (08:42→21:31)
[2019-09-05] MEDS: HYDROGEN PEROXIDE 3% 118 ML BOTTLE TP SCH ×2 (09:52→21:27)
--- NOTE | 2019-09-05 15:57 | NUR ---
SEEN AND EXAMINED BY EMMY WAY.
--- NOTE | 2019-09-05 19:08 | NUR ---
Received pt on HT-50 ventilator with the following settings of SIMV-12, Vt-500, PEEP+5, PS-10, FIO2-2LPM bleed in, trached with Susyley#6 DCT trach, which is in the place and secure. No distress noted. Airway care done, pt responded to physical stimuli. In-line HHN tx with 2.5mg Albuterol+0.5mg Atrovent given, no adverse reaction noted. HME changed. Pt has a gauze between her lips to prevent biting. Resus. bag and back up trach at bedside. Vent and alarms checked and reset.
[2019-09-05 21:28] VITALS: BP 98/60
[2019-09-05] MEDS: THIAMINE HCL 100 MG TABLET GT SCH (21:31)
[2019-09-05] MEDS: CHOLECALCIFEROL 1,000 UNIT TABLET GT SCH (21:31)
[2019-09-05] MEDS: FOLIC ACID 1 MG TABLET GT SCH (21:32)
[2019-09-06] MEDS: ALBUTEROL SULFATE 2.5 MG/3 ML NEBU NEB SCH ×6 (02:40→23:14)
[2019-09-06] MEDS: IPRATROPIUM BROMIDE 0.5 MG/2.5 ML NEBU NEB SCH ×6 (02:40→23:14)
[2019-09-06] MEDS: BACLOFEN 10 MG TABLET GT SCH ×3 (05:41→21:07)
[2019-09-06] MEDS: BACLOFEN 20 MG TABLET GT SCH ×3 (05:41→21:07)
[2019-09-06] MEDS: METOCLOPRAMIDE HCL 5 MG TABLET GT SCH ×3 (05:41→21:07)
[2019-09-06] MEDS: OMEPRAZOLE 20 MG CAPSULE.DR GT SCH (05:41)
[2019-09-06] MEDS: MIDODRINE HCL 10 MG TABLET GT SCH ×3 (05:42→21:07)
--- NOTE | 2019-09-06 05:51 | NUR ---
Patient's bhatt catheter is clogged, unable to irrigate, changed bhatt catheter to a bigger size Fr#20X 10 ml, irrigated and noted with very thick like transparent white jelly urine output, good luke care rendered, will continue monitor.
[2019-09-06] MEDS: POTASSIUM CHLORIDE 40 MEQ/30 ML LIQUID UDC GT SCH (08:46)
[2019-09-06] MEDS: NYSTATIN CREAM 30 GM TUBE TP SCH ×2 (08:46→20:45)
[2019-09-06] MEDS: FUROSEMIDE 20 MG/2 ML GT SCH (08:46)
[2019-09-06] MEDS: TRIAMCINOLONE ACET 0.1% CREAM 15 GM TUBE TP SCH ×2 (08:46→20:44)
[2019-09-06] MEDS: ACIDOPHILUS/BULGARICUS CHEW TAB GT SCH ×2 (08:46→20:41)
[2019-09-06] MEDS: PHENYTOIN 100 MG/4 ML UDC GT SCH ×2 (08:46→20:41)
[2019-09-06] MEDS: levETIRAcetam 500 MG/5 ML LIQUID UDC GT SCH ×2 (08:46→20:41)
[2019-09-06] MEDS: COD LIVER OIL/ZINC OXIDE OINT 113 GM TUBE TOP SCH ×2 (08:46→20:44)
[2019-09-06] MEDS: DESMOPRESSIN 0.1 MG TABLET GT SCH (08:46)
[2019-09-06] MEDS: HYDROGEN PEROXIDE 3% 118 ML BOTTLE TP SCH ×2 (09:30→21:09)
[2019-09-06 10:55] VITALS: BP 91/44
[2019-09-06] MEDS: FOLIC ACID 1 MG TABLET GT SCH (20:41)
[2019-09-06] MEDS: THIAMINE HCL 100 MG TABLET GT SCH (20:43)
[2019-09-06] MEDS: CHOLECALCIFEROL 1,000 UNIT TABLET GT SCH (20:44)
[2019-09-06 20:49] VITALS: BP 110/61
[2019-09-07] MEDS: ALBUTEROL SULFATE 2.5 MG/3 ML NEBU NEB SCH ×6 (03:18→23:35)
[2019-09-07] MEDS: IPRATROPIUM BROMIDE 0.5 MG/2.5 ML NEBU NEB SCH ×6 (03:18→23:35)
[2019-09-07] MEDS: BACLOFEN 20 MG TABLET GT SCH ×3 (06:29→22:13)
[2019-09-07] MEDS: BACLOFEN 10 MG TABLET GT SCH ×3 (06:29→22:13)
[2019-09-07] MEDS: OMEPRAZOLE 20 MG CAPSULE.DR GT SCH (06:30)
[2019-09-07] MEDS: MIDODRINE HCL 10 MG TABLET GT SCH ×3 (06:30→22:00)
[2019-09-07] MEDS: METOCLOPRAMIDE HCL 5 MG TABLET GT SCH ×3 (06:30→22:13)
[2019-09-07] MEDS: ACIDOPHILUS/BULGARICUS CHEW TAB GT SCH ×2 (09:30→20:34)
[2019-09-07] MEDS: DESMOPRESSIN 0.1 MG TABLET GT SCH (09:30)
[2019-09-07] MEDS: FUROSEMIDE 20 MG/2 ML GT SCH (09:30)
[2019-09-07] MEDS: levETIRAcetam 500 MG/5 ML LIQUID UDC GT SCH ×2 (09:30→20:35)
[2019-09-07] MEDS: PHENYTOIN 100 MG/4 ML UDC GT SCH ×2 (09:30→20:34)
[2019-09-07] MEDS: COD LIVER OIL/ZINC OXIDE OINT 113 GM TUBE TOP SCH ×2 (09:33→20:37)
[2019-09-07] MEDS: NYSTATIN CREAM 30 GM TUBE TP SCH ×2 (09:33→20:37)
[2019-09-07] MEDS: POTASSIUM CHLORIDE 40 MEQ/30 ML LIQUID UDC GT SCH (09:33)
[2019-09-07] MEDS: TRIAMCINOLONE ACET 0.1% CREAM 15 GM TUBE TP SCH ×2 (09:33→20:37)
[2019-09-07] MEDS: HYDROGEN PEROXIDE 3% 118 ML BOTTLE TP SCH ×2 (09:55→21:29)
[2019-09-07 10:52] VITALS: BP 97/55
[2019-09-07 20:00] VITALS: BP 125/70
[2019-09-07] MEDS: FOLIC ACID 1 MG TABLET GT SCH (20:35)
[2019-09-07] MEDS: CHOLECALCIFEROL 1,000 UNIT TABLET GT SCH (20:36)
[2019-09-07] MEDS: THIAMINE HCL 100 MG TABLET GT SCH (20:36)
[2019-09-08] MEDS: IPRATROPIUM BROMIDE 0.5 MG/2.5 ML NEBU NEB SCH ×6 (02:40→23:10)
[2019-09-08] MEDS: ALBUTEROL SULFATE 2.5 MG/3 ML NEBU NEB SCH ×6 (02:40→23:10)
[2019-09-08] MEDS: MIDODRINE HCL 10 MG TABLET GT SCH ×3 (06:14→22:22)
[2019-09-08] MEDS: BACLOFEN 10 MG TABLET GT SCH ×3 (06:14→22:22)
[2019-09-08] MEDS: BACLOFEN 20 MG TABLET GT SCH ×3 (06:14→22:22)
[2019-09-08] MEDS: METOCLOPRAMIDE HCL 5 MG TABLET GT SCH ×3 (06:14→22:22)
[2019-09-08] MEDS: OMEPRAZOLE 20 MG CAPSULE.DR GT SCH (06:14)
[2019-09-08] MEDS: HYDROGEN PEROXIDE 3% 118 ML BOTTLE TP SCH ×2 (07:57→20:59)
[2019-09-08] MEDS: ACIDOPHILUS/BULGARICUS CHEW TAB GT SCH ×2 (08:29→20:29)
[2019-09-08] MEDS: POTASSIUM CHLORIDE 40 MEQ/30 ML LIQUID UDC GT SCH (08:29)
[2019-09-08] MEDS: levETIRAcetam 500 MG/5 ML LIQUID UDC GT SCH ×2 (08:29→20:29)
[2019-09-08] MEDS: PHENYTOIN 100 MG/4 ML UDC GT SCH ×2 (08:29→20:27)
[2019-09-08] MEDS: DESMOPRESSIN 0.1 MG TABLET GT SCH (08:29)
[2019-09-08] MEDS: FUROSEMIDE 20 MG/2 ML GT SCH (08:29)
[2019-09-08] MEDS: COD LIVER OIL/ZINC OXIDE OINT 113 GM TUBE TOP SCH ×2 (08:30→20:31)
[2019-09-08] MEDS: TRIAMCINOLONE ACET 0.1% CREAM 15 GM TUBE TP SCH ×2 (08:30→20:31)
[2019-09-08] MEDS: NYSTATIN CREAM 30 GM TUBE TP SCH ×2 (08:30→20:31)
[2019-09-08 11:49] VITALS: BP 100/55
[2019-09-08] MEDS: VITAL AF 1.2 1,000 ML LIQUID GT SCH (13:16)
--- NOTE | 2019-09-08 19:00 | NUR ---
SEEN BY WITH NNO.
[2019-09-08] MEDS: FOLIC ACID 1 MG TABLET GT SCH (20:29)
[2019-09-08] MEDS: THIAMINE HCL 100 MG TABLET GT SCH (20:30)
[2019-09-08] MEDS: CHOLECALCIFEROL 1,000 UNIT TABLET GT SCH (20:31)
[2019-09-08 20:35] VITALS: BP 100/50
[2019-09-09] MEDS: ALBUTEROL SULFATE 2.5 MG/3 ML NEBU NEB SCH ×6 (02:59→23:25)
[2019-09-09] MEDS: IPRATROPIUM BROMIDE 0.5 MG/2.5 ML NEBU NEB SCH ×6 (02:59→23:25)
[2019-09-09] MEDS: BACLOFEN 20 MG TABLET GT SCH ×3 (06:10→22:09)
[2019-09-09] MEDS: BACLOFEN 10 MG TABLET GT SCH ×3 (06:10→22:09)
[2019-09-09] MEDS: MIDODRINE HCL 10 MG TABLET GT SCH ×3 (06:11→22:00)
[2019-09-09] MEDS: OMEPRAZOLE 20 MG CAPSULE.DR GT SCH (06:11)
[2019-09-09] MEDS: METOCLOPRAMIDE HCL 5 MG TABLET GT SCH ×3 (06:11→22:10)
[2019-09-09] MEDS: PHENYTOIN 100 MG/4 ML UDC GT SCH ×2 (08:56→20:17)
[2019-09-09] MEDS: DESMOPRESSIN 0.1 MG TABLET GT SCH (08:56)
[2019-09-09] MEDS: ACIDOPHILUS/BULGARICUS CHEW TAB GT SCH ×2 (08:56→20:17)
[2019-09-09] MEDS: POTASSIUM CHLORIDE 40 MEQ/30 ML LIQUID UDC GT SCH (08:57)
[2019-09-09] MEDS: levETIRAcetam 500 MG/5 ML LIQUID UDC GT SCH ×2 (08:57→20:17)
[2019-09-09] MEDS: FUROSEMIDE 20 MG/2 ML GT SCH (08:57)
[2019-09-09] MEDS: COD LIVER OIL/ZINC OXIDE OINT 113 GM TUBE TOP SCH ×2 (08:58→20:17)
[2019-09-09] MEDS: TRIAMCINOLONE ACET 0.1% CREAM 15 GM TUBE TP SCH ×2 (08:58→20:17)
[2019-09-09] MEDS: NYSTATIN CREAM 30 GM TUBE TP SCH ×2 (08:58→20:17)
[2019-09-09] MEDS: HYDROGEN PEROXIDE 3% 118 ML BOTTLE TP SCH ×2 (09:25→21:41)
[2019-09-09] MEDS: VITAL AF 1.2 1,000 ML LIQUID GT SCH (14:36)
[2019-09-09] MEDS: FOLIC ACID 1 MG TABLET GT SCH (20:09)
[2019-09-09] MEDS: CHOLECALCIFEROL 1,000 UNIT TABLET GT SCH (20:17)
[2019-09-09] MEDS: THIAMINE HCL 100 MG TABLET GT SCH (20:17)
[2019-09-09 20:38] VITALS: BP 104/62
--- NOTE | 2019-09-09 21:43 | NUR ---
Trached patient was endorsed on mechanical ventilation with ordered vent settings. No signs of respiratory distress noted. Inline treatments administered and tolerated well, no adverse reactions noted. Airway patent and secure, SXN's small amounts of thin pale white secretions. Alarms are on and audible. Spare trach at bedside. Will continue to monitor.
[2019-09-10] MEDS: ALBUTEROL SULFATE 2.5 MG/3 ML NEBU NEB SCH ×6 (03:14→22:38)
[2019-09-10] MEDS: IPRATROPIUM BROMIDE 0.5 MG/2.5 ML NEBU NEB SCH ×6 (03:14→22:38)
[2019-09-10] MEDS: BACLOFEN 20 MG TABLET GT SCH ×3 (05:12→21:19)
[2019-09-10] MEDS: BACLOFEN 10 MG TABLET GT SCH ×3 (05:12→21:19)
[2019-09-10] MEDS: METOCLOPRAMIDE HCL 5 MG TABLET GT SCH ×3 (05:13→21:19)
[2019-09-10] MEDS: OMEPRAZOLE 20 MG CAPSULE.DR GT SCH (05:13)
[2019-09-10] MEDS: MIDODRINE HCL 10 MG TABLET GT SCH ×3 (05:13→21:19)
[2019-09-10 08:00] VITALS: BP 115/70
[2019-09-10] MEDS: PHENYTOIN 100 MG/4 ML UDC GT SCH ×2 (08:49→21:19)
[2019-09-10] MEDS: DESMOPRESSIN 0.1 MG TABLET GT SCH (08:49)
[2019-09-10] MEDS: ACIDOPHILUS/BULGARICUS CHEW TAB GT SCH ×2 (08:50→21:19)
[2019-09-10] MEDS: levETIRAcetam 500 MG/5 ML LIQUID UDC GT SCH ×2 (08:50→21:19)
[2019-09-10] MEDS: FUROSEMIDE 20 MG/2 ML GT SCH (08:51)
[2019-09-10] MEDS: POTASSIUM CHLORIDE 40 MEQ/30 ML LIQUID UDC GT SCH (08:51)
[2019-09-10] MEDS: NYSTATIN CREAM 30 GM TUBE TP SCH ×2 (08:52→21:19)
[2019-09-10] MEDS: COD LIVER OIL/ZINC OXIDE OINT 113 GM TUBE TOP SCH ×2 (08:52→21:19)
[2019-09-10] MEDS: TRIAMCINOLONE ACET 0.1% CREAM 15 GM TUBE TP SCH ×2 (08:52→21:19)
[2019-09-10] MEDS: HYDROGEN PEROXIDE 3% 118 ML BOTTLE TP SCH ×2 (09:46→19:06)
[2019-09-10] MEDS: VITAL AF 1.2 1,000 ML LIQUID GT SCH (16:00)
[2019-09-10 20:40] VITALS: BP 96/60
[2019-09-10] MEDS: CHOLECALCIFEROL 1,000 UNIT TABLET GT SCH (21:19)
[2019-09-10] MEDS: FOLIC ACID 1 MG TABLET GT SCH (21:19)
[2019-09-10] MEDS: THIAMINE HCL 100 MG TABLET GT SCH (21:19)
[2019-09-11] MEDS: IPRATROPIUM BROMIDE 0.5 MG/2.5 ML NEBU NEB SCH ×6 (04:17→22:40)
[2019-09-11] MEDS: ALBUTEROL SULFATE 2.5 MG/3 ML NEBU NEB SCH ×6 (04:17→22:40)
[2019-09-11] MEDS: BACLOFEN 10 MG TABLET GT SCH ×3 (05:03→21:53)
[2019-09-11] MEDS: BACLOFEN 20 MG TABLET GT SCH ×3 (05:03→21:53)
[2019-09-11] MEDS: OMEPRAZOLE 20 MG CAPSULE.DR GT SCH (05:04)
[2019-09-11] MEDS: MIDODRINE HCL 10 MG TABLET GT SCH ×3 (05:04→21:55)
[2019-09-11] MEDS: METOCLOPRAMIDE HCL 5 MG TABLET GT SCH ×3 (05:04→21:55)
[2019-09-11 08:00] VITALS: BP 99/60
[2019-09-11] MEDS: PHENYTOIN 100 MG/4 ML UDC GT SCH ×2 (09:10→20:36)
[2019-09-11] MEDS: DESMOPRESSIN 0.1 MG TABLET GT SCH (09:10)
[2019-09-11] MEDS: ACIDOPHILUS/BULGARICUS CHEW TAB GT SCH ×2 (09:10→20:36)
[2019-09-11] MEDS: levETIRAcetam 500 MG/5 ML LIQUID UDC GT SCH ×2 (09:10→20:38)
[2019-09-11] MEDS: FUROSEMIDE 20 MG/2 ML GT SCH (09:11)
[2019-09-11] MEDS: POTASSIUM CHLORIDE 40 MEQ/30 ML LIQUID UDC GT SCH (09:11)
[2019-09-11] MEDS: COD LIVER OIL/ZINC OXIDE OINT 113 GM TUBE TOP SCH ×2 (09:11→20:38)
[2019-09-11] MEDS: NYSTATIN CREAM 30 GM TUBE TP SCH ×2 (09:11→20:39)
[2019-09-11] MEDS: TRIAMCINOLONE ACET 0.1% CREAM 15 GM TUBE TP SCH ×2 (09:11→20:39)
[2019-09-11] MEDS: HYDROGEN PEROXIDE 3% 118 ML BOTTLE TP SCH ×2 (09:17→21:11)
[2019-09-11] MEDS: VITAL AF 1.2 1,000 ML LIQUID GT SCH (15:41)
--- NOTE | 2019-09-11 19:09 | NUR ---
Received pt on HT-50 ventilator with the following settings of SIMV-12, Vt-500, PEEP+5, PS-10, FIO2-2LPM bleed in, trached with Susyley#6 DCT trach, which is in the place and secure. No SOB noted. Airway care done, pt responded to physical stimuli. In-line HHN tx with 2.5mg Albuterol+0.5mg Atrovent given, no adverse reaction noted. HME changed. Pt has a gauze between her lips to prevent biting. Resus. bag and back up trach at bedside. Vent and alarms checked and reset.
[2019-09-11] MEDS: FOLIC ACID 1 MG TABLET GT SCH (20:36)
[2019-09-11] MEDS: CHOLECALCIFEROL 1,000 UNIT TABLET GT SCH (20:38)
[2019-09-11] MEDS: THIAMINE HCL 100 MG TABLET GT SCH (20:38)
[2019-09-11 20:49] VITALS: BP 103/62
[2019-09-12] MEDS: IPRATROPIUM BROMIDE 0.5 MG/2.5 ML NEBU NEB SCH ×6 (02:40→23:33)
[2019-09-12] MEDS: ALBUTEROL SULFATE 2.5 MG/3 ML NEBU NEB SCH ×6 (02:40→23:34)
[2019-09-12] MEDS: BACLOFEN 20 MG TABLET GT SCH ×3 (05:01→21:52)
[2019-09-12] MEDS: METOCLOPRAMIDE HCL 5 MG TABLET GT SCH ×3 (05:01→21:52)
[2019-09-12] MEDS: BACLOFEN 10 MG TABLET GT SCH ×3 (05:01→21:52)
[2019-09-12] MEDS: OMEPRAZOLE 20 MG CAPSULE.DR GT SCH (05:01)
[2019-09-12] MEDS: MIDODRINE HCL 10 MG TABLET GT SCH ×3 (05:01→21:52)
[2019-09-12] MEDS: POTASSIUM CHLORIDE 40 MEQ/30 ML LIQUID UDC GT SCH (08:54)
[2019-09-12] MEDS: ACIDOPHILUS/BULGARICUS CHEW TAB GT SCH ×2 (08:54→20:36)
[2019-09-12] MEDS: levETIRAcetam 500 MG/5 ML LIQUID UDC GT SCH ×2 (08:54→20:37)
[2019-09-12] MEDS: PHENYTOIN 100 MG/4 ML UDC GT SCH ×2 (08:54→20:36)
[2019-09-12] MEDS: DESMOPRESSIN 0.1 MG TABLET GT SCH (08:54)
[2019-09-12] MEDS: NYSTATIN CREAM 30 GM TUBE TP SCH ×2 (08:55→20:38)
[2019-09-12] MEDS: COD LIVER OIL/ZINC OXIDE OINT 113 GM TUBE TOP SCH ×2 (08:55→20:38)
[2019-09-12] MEDS: FUROSEMIDE 20 MG/2 ML GT SCH (08:55)
[2019-09-12] MEDS: TRIAMCINOLONE ACET 0.1% CREAM 15 GM TUBE TP SCH ×2 (08:55→20:38)
[2019-09-12 09:17] VITALS: BP 90/51
[2019-09-12] MEDS: HYDROGEN PEROXIDE 3% 118 ML BOTTLE TP SCH ×2 (09:56→21:54)
[2019-09-12 15:41] LABS: BASOPHILS % (AUTO) 0.5 % (0.0-2.0); EOSINOPHILS # (AUTO) 0.2 K/uL (0.0-0.7); HEMATOCRIT 31.9 % (31.2-41.9); LYMPHOCYTES # (AUTO) 1.3 K/uL (20.0-40.0); LYMPHOCYTES % (AUTO) 19.9 % (20.5-51.5); MEAN CORPUSCULAR HEMOGLOBIN 32.7 uug (24.7-32.8); MEAN CORPUSCULAR HGB CONC 35 g/dL (32.3-35.6); MEAN CORPUSCULAR VOLUME 94.6 fL (75.5-95.3); MONOCYTES # (AUTO) 0.5 K/uL (2.0-10.0); MONOCYTES % (AUTO) 7.1 % (0.0-11.0); NEUTROPHILS # (AUTO) 4.7 K/uL (1.8-8.9); NEUTROPHILS % (AUTO) 69.5 % (38.5-71.5); PLATELET COUNT (AUTO) 273 K/uL (179-408); RED BLOOD CELL COUNT(AUTO) 3.37 MIL/uL (3.63-4.92); WHITE BLOOD COUNT (AUTO) 6.8 K/uL (3.8-11.8)
[2019-09-12 15:53] LABS: CARBON DIOXIDE 22 mmol/L (21-32); CHLORIDE 111 mmol/L (98-107); CREATININE 0.5 mg/dL (0.6-1.3); GLUCOSE 102 mg/dL (74-106); MAGNESIUM 1.9 mg/dL (1.8-2.4); PHOSPHOROUS 3.6 mg/dL (2.5-4.9); POTASSIUM 3.7 mmol/L (3.5-5.1); UREA NITROGEN, BLOOD 17 mg/dL (7-18)
[2019-09-12] MEDS: VITAL AF 1.2 1,000 ML LIQUID GT SCH (17:42)
[2019-09-12] MEDS: FOLIC ACID 1 MG TABLET GT SCH (20:37)
[2019-09-12] MEDS: THIAMINE HCL 100 MG TABLET GT SCH (20:37)
[2019-09-12] MEDS: CHOLECALCIFEROL 1,000 UNIT TABLET GT SCH (20:37)
[2019-09-12 20:40] VITALS: BP 98/52
[2019-09-13] MEDS: IPRATROPIUM BROMIDE 0.5 MG/2.5 ML NEBU NEB SCH ×6 (03:26→23:04)
[2019-09-13] MEDS: ALBUTEROL SULFATE 2.5 MG/3 ML NEBU NEB SCH ×6 (03:27→23:05)
[2019-09-13] MEDS: BACLOFEN 20 MG TABLET GT SCH ×3 (05:35→22:00)
[2019-09-13] MEDS: BACLOFEN 10 MG TABLET GT SCH ×3 (05:35→22:00)
[2019-09-13] MEDS: MIDODRINE HCL 10 MG TABLET GT SCH ×3 (05:36→22:00)
[2019-09-13] MEDS: METOCLOPRAMIDE HCL 5 MG TABLET GT SCH ×3 (05:36→22:01)
[2019-09-13] MEDS: OMEPRAZOLE 20 MG CAPSULE.DR GT SCH (05:36)
[2019-09-13] MEDS: ACIDOPHILUS/BULGARICUS CHEW TAB GT SCH ×2 (09:09→20:17)
[2019-09-13] MEDS: COD LIVER OIL/ZINC OXIDE OINT 113 GM TUBE TOP SCH ×2 (09:09→20:19)
[2019-09-13] MEDS: FUROSEMIDE 20 MG/2 ML GT SCH (09:09)
[2019-09-13] MEDS: POTASSIUM CHLORIDE 40 MEQ/30 ML LIQUID UDC GT SCH (09:09)
[2019-09-13] MEDS: PHENYTOIN 100 MG/4 ML UDC GT SCH ×2 (09:09→20:17)
[2019-09-13] MEDS: DESMOPRESSIN 0.1 MG TABLET GT SCH (09:09)
[2019-09-13] MEDS: levETIRAcetam 500 MG/5 ML LIQUID UDC GT SCH ×2 (09:09→20:17)
[2019-09-13] MEDS: TRIAMCINOLONE ACET 0.1% CREAM 15 GM TUBE TP SCH (09:10)
[2019-09-13] MEDS: NYSTATIN CREAM 30 GM TUBE TP SCH (09:10)
[2019-09-13] MEDS: HYDROGEN PEROXIDE 3% 118 ML BOTTLE TP SCH ×2 (09:30→21:16)
[2019-09-13 10:24] VITALS: BP 98/52
[2019-09-13] MEDS: VITAL AF 1.2 1,000 ML LIQUID GT SCH (14:54)
[2019-09-13 20:05] VITALS: BP 104/64
[2019-09-13] MEDS: FOLIC ACID 1 MG TABLET GT SCH (20:17)
[2019-09-13] MEDS: THIAMINE HCL 100 MG TABLET GT SCH (20:18)
[2019-09-13] MEDS: CHOLECALCIFEROL 1,000 UNIT TABLET GT SCH (20:18)
[2019-09-14] MEDS: IPRATROPIUM BROMIDE 0.5 MG/2.5 ML NEBU NEB SCH ×6 (02:48→23:31)
[2019-09-14] MEDS: ALBUTEROL SULFATE 2.5 MG/3 ML NEBU NEB SCH ×6 (02:49→23:31)
[2019-09-14] MEDS: MIDODRINE HCL 10 MG TABLET GT SCH ×3 (06:00→21:20)
[2019-09-14] MEDS: BACLOFEN 20 MG TABLET GT SCH ×3 (06:08→21:20)
[2019-09-14] MEDS: BACLOFEN 10 MG TABLET GT SCH ×3 (06:08→21:20)
[2019-09-14] MEDS: OMEPRAZOLE 20 MG CAPSULE.DR GT SCH (06:09)
[2019-09-14] MEDS: METOCLOPRAMIDE HCL 5 MG TABLET GT SCH ×3 (06:09→21:20)
[2019-09-14] MEDS: POTASSIUM CHLORIDE 40 MEQ/30 ML LIQUID UDC GT SCH (08:34)
[2019-09-14] MEDS: COD LIVER OIL/ZINC OXIDE OINT 113 GM TUBE TOP SCH ×2 (08:34→20:30)
[2019-09-14] MEDS: PHENYTOIN 100 MG/4 ML UDC GT SCH ×2 (08:34→20:28)
[2019-09-14] MEDS: DESMOPRESSIN 0.1 MG TABLET GT SCH (08:34)
[2019-09-14] MEDS: levETIRAcetam 500 MG/5 ML LIQUID UDC GT SCH ×2 (08:34→20:29)
[2019-09-14] MEDS: FUROSEMIDE 20 MG/2 ML GT SCH (08:34)
[2019-09-14] MEDS: ACIDOPHILUS/BULGARICUS CHEW TAB GT SCH ×2 (08:34→20:28)
[2019-09-14] MEDS: HYDROGEN PEROXIDE 3% 118 ML BOTTLE TP SCH ×2 (09:12→21:12)
[2019-09-14 10:52] VITALS: BP 115/52
[2019-09-14 20:10] VITALS: BP 96/54
[2019-09-14] MEDS: FOLIC ACID 1 MG TABLET GT SCH (20:28)
[2019-09-14] MEDS: CHOLECALCIFEROL 1,000 UNIT TABLET GT SCH (20:30)
[2019-09-14] MEDS: THIAMINE HCL 100 MG TABLET GT SCH (20:30)
[2019-09-15] MEDS: IPRATROPIUM BROMIDE 0.5 MG/2.5 ML NEBU NEB SCH ×6 (03:12→23:39)
[2019-09-15] MEDS: ALBUTEROL SULFATE 2.5 MG/3 ML NEBU NEB SCH ×6 (03:12→23:39)
[2019-09-15] MEDS: MIDODRINE HCL 10 MG TABLET GT SCH ×3 (05:12→21:47)
[2019-09-15] MEDS: BACLOFEN 20 MG TABLET GT SCH ×3 (05:12→21:47)
[2019-09-15] MEDS: METOCLOPRAMIDE HCL 5 MG TABLET GT SCH ×3 (05:12→21:47)
[2019-09-15] MEDS: BACLOFEN 10 MG TABLET GT SCH ×3 (05:12→21:47)
[2019-09-15] MEDS: OMEPRAZOLE 20 MG CAPSULE.DR GT SCH (05:12)
[2019-09-15] MEDS: PHENYTOIN 100 MG/4 ML UDC GT SCH ×2 (08:34→20:35)
[2019-09-15] MEDS: ACIDOPHILUS/BULGARICUS CHEW TAB GT SCH ×2 (08:34→20:35)
[2019-09-15] MEDS: DESMOPRESSIN 0.1 MG TABLET GT SCH (08:34)
[2019-09-15] MEDS: POTASSIUM CHLORIDE 40 MEQ/30 ML LIQUID UDC GT SCH (08:35)
[2019-09-15] MEDS: FUROSEMIDE 20 MG/2 ML GT SCH (08:35)
[2019-09-15] MEDS: levETIRAcetam 500 MG/5 ML LIQUID UDC GT SCH ×2 (08:35→20:35)
[2019-09-15] MEDS: COD LIVER OIL/ZINC OXIDE OINT 113 GM TUBE TOP SCH ×2 (08:35→20:36)
[2019-09-15] MEDS: HYDROGEN PEROXIDE 3% 118 ML BOTTLE TP SCH ×2 (09:47→20:06)
[2019-09-15 11:41] VITALS: BP 110/62
--- NOTE | 2019-09-15 14:18 | NUR ---
SEEN BY DR. CADEN COCHRAN WITH NNO.
--- NOTE | 2019-09-15 17:00 | NUR ---
SEEN BY DR. DEEJAY WAY.
--- NOTE | 2019-09-15 20:08 | NUR ---
Patient was endorsed on mechanical ventilation with ordered vent settings. No signs of respiratory distress noted. Inline treatments administered and tolerated well, no adverse reactions noted. Airway patent/secure, SXN's small amounts of thin pale white secretions. Alarms are on and audible. Spare trach at bedside. Will continue to monitor.
[2019-09-15 20:25] VITALS: BP 91/48
[2019-09-15] MEDS: FOLIC ACID 1 MG TABLET GT SCH (20:35)
[2019-09-15] MEDS: THIAMINE HCL 100 MG TABLET GT SCH (20:36)
[2019-09-15] MEDS: CHOLECALCIFEROL 1,000 UNIT TABLET GT SCH (20:36)
[2019-09-16] MEDS: ALBUTEROL SULFATE 2.5 MG/3 ML NEBU NEB SCH ×6 (03:21→23:07)
[2019-09-16] MEDS: IPRATROPIUM BROMIDE 0.5 MG/2.5 ML NEBU NEB SCH ×6 (03:21→23:07)
[2019-09-16] MEDS: BACLOFEN 20 MG TABLET GT SCH ×3 (05:20→21:10)
[2019-09-16] MEDS: BACLOFEN 10 MG TABLET GT SCH ×3 (05:20→21:10)
[2019-09-16] MEDS: OMEPRAZOLE 20 MG CAPSULE.DR GT SCH (05:21)
[2019-09-16] MEDS: MIDODRINE HCL 10 MG TABLET GT SCH ×3 (05:21→21:12)
[2019-09-16] MEDS: METOCLOPRAMIDE HCL 5 MG TABLET GT SCH ×3 (05:21→21:12)
[2019-09-16 08:00] VITALS: BP 102/65
[2019-09-16] MEDS: DESMOPRESSIN 0.1 MG TABLET GT SCH (08:38)
[2019-09-16] MEDS: PHENYTOIN 100 MG/4 ML UDC GT SCH ×2 (08:38→20:46)
[2019-09-16] MEDS: ACIDOPHILUS/BULGARICUS CHEW TAB GT SCH ×2 (08:39→20:46)
[2019-09-16] MEDS: levETIRAcetam 500 MG/5 ML LIQUID UDC GT SCH ×2 (08:39→20:47)
[2019-09-16] MEDS: POTASSIUM CHLORIDE 40 MEQ/30 ML LIQUID UDC GT SCH (08:40)
[2019-09-16] MEDS: FUROSEMIDE 20 MG/2 ML GT SCH (08:40)
[2019-09-16] MEDS: COD LIVER OIL/ZINC OXIDE OINT 113 GM TUBE TOP SCH ×2 (08:41→20:48)
[2019-09-16] MEDS: NEOMY/BACITRA/POLYMYXIN B OINT UD PACKET TP SCH ×2 (08:41→20:48)
[2019-09-16] MEDS: HYDROGEN PEROXIDE 3% 118 ML BOTTLE TP SCH ×2 (09:00→21:02)
[2019-09-16] MEDS: VITAL AF 1.2 1,000 ML LIQUID GT SCH (11:40)
[2019-09-16] MEDS: FOLIC ACID 1 MG TABLET GT SCH (20:46)
[2019-09-16] MEDS: CHOLECALCIFEROL 1,000 UNIT TABLET GT SCH (20:48)
[2019-09-16] MEDS: THIAMINE HCL 100 MG TABLET GT SCH (20:48)
[2019-09-16 22:32] VITALS: BP 103/59
[2019-09-17] MEDS: ALBUTEROL SULFATE 2.5 MG/3 ML NEBU NEB SCH ×6 (02:55→22:40)
[2019-09-17] MEDS: IPRATROPIUM BROMIDE 0.5 MG/2.5 ML NEBU NEB SCH ×6 (02:55→22:40)
[2019-09-17] MEDS: MIDODRINE HCL 10 MG TABLET GT SCH ×3 (05:35→21:35)
[2019-09-17] MEDS: BACLOFEN 20 MG TABLET GT SCH ×3 (05:35→21:34)
[2019-09-17] MEDS: METOCLOPRAMIDE HCL 5 MG TABLET GT SCH ×3 (05:35→21:35)
[2019-09-17] MEDS: OMEPRAZOLE 20 MG CAPSULE.DR GT SCH (05:35)
[2019-09-17] MEDS: BACLOFEN 10 MG TABLET GT SCH ×3 (05:35→21:34)
[2019-09-17] MEDS: HYDROGEN PEROXIDE 3% 118 ML BOTTLE TP SCH ×2 (09:00→21:43)
[2019-09-17] MEDS: ACIDOPHILUS/BULGARICUS CHEW TAB GT SCH ×2 (09:25→20:38)
[2019-09-17] MEDS: PHENYTOIN 100 MG/4 ML UDC GT SCH ×2 (09:25→20:38)
[2019-09-17] MEDS: DESMOPRESSIN 0.1 MG TABLET GT SCH (09:25)
[2019-09-17] MEDS: levETIRAcetam 500 MG/5 ML LIQUID UDC GT SCH ×2 (09:26→20:39)
[2019-09-17] MEDS: FUROSEMIDE 20 MG/2 ML GT SCH (09:27)
[2019-09-17] MEDS: POTASSIUM CHLORIDE 40 MEQ/30 ML LIQUID UDC GT SCH (09:27)
[2019-09-17] MEDS: COD LIVER OIL/ZINC OXIDE OINT 113 GM TUBE TOP SCH ×2 (09:27→20:39)
[2019-09-17] MEDS: NEOMY/BACITRA/POLYMYXIN B OINT UD PACKET TP SCH ×2 (09:27→20:40)
[2019-09-17 11:27] VITALS: BP 95/45
--- NOTE | 2019-09-17 19:11 | NUR ---
Received pt on HT-50 ventilator with the following settings of SIMV-12, Vt-500, PEEP+5, PS-10, FIO2-2LPM bleed in, trached with Shiley#6 DCT trach, which is in the place and secure. No respiratory distress noted. Airway care done, pt responded to physical stimuli. In-line HHN tx with 2.5mg Albuterol+0.5mg Atrovent given, no adverse reaction noted. HME, Sx Garza and HHN adaptor changed. Resus. bag and back up trach at bedside. Vent and alarms checked and reset.
[2019-09-17] MEDS: THIAMINE HCL 100 MG TABLET GT SCH (20:39)
[2019-09-17] MEDS: FOLIC ACID 1 MG TABLET GT SCH (20:39)
[2019-09-17] MEDS: CHOLECALCIFEROL 1,000 UNIT TABLET GT SCH (20:39)
[2019-09-17 22:02] VITALS: BP 101/55
[2019-09-18] MEDS: IPRATROPIUM BROMIDE 0.5 MG/2.5 ML NEBU NEB SCH ×6 (03:10→23:22)
[2019-09-18] MEDS: ALBUTEROL SULFATE 2.5 MG/3 ML NEBU NEB SCH ×6 (03:10→23:22)
[2019-09-18] MEDS: MIDODRINE HCL 10 MG TABLET GT SCH ×3 (05:42→21:21)
[2019-09-18] MEDS: BACLOFEN 10 MG TABLET GT SCH ×3 (05:42→21:20)
[2019-09-18] MEDS: OMEPRAZOLE 20 MG CAPSULE.DR GT SCH (05:42)
[2019-09-18] MEDS: METOCLOPRAMIDE HCL 5 MG TABLET GT SCH ×3 (05:42→21:21)
[2019-09-18] MEDS: BACLOFEN 20 MG TABLET GT SCH ×3 (05:42→21:20)
[2019-09-18] MEDS: HYDROGEN PEROXIDE 3% 118 ML BOTTLE TP SCH ×2 (07:49→20:39)
[2019-09-18] MEDS: DESMOPRESSIN 0.1 MG TABLET GT SCH (09:22)
[2019-09-18] MEDS: levETIRAcetam 500 MG/5 ML LIQUID UDC GT SCH ×2 (09:22→20:35)
[2019-09-18] MEDS: NEOMY/BACITRA/POLYMYXIN B OINT UD PACKET TP SCH ×2 (09:22→20:36)
[2019-09-18] MEDS: FUROSEMIDE 20 MG/2 ML GT SCH (09:22)
[2019-09-18] MEDS: POTASSIUM CHLORIDE 40 MEQ/30 ML LIQUID UDC GT SCH (09:22)
[2019-09-18] MEDS: ACIDOPHILUS/BULGARICUS CHEW TAB GT SCH ×2 (09:22→20:35)
[2019-09-18] MEDS: PHENYTOIN 100 MG/4 ML UDC GT SCH ×2 (09:22→20:35)
[2019-09-18] MEDS: COD LIVER OIL/ZINC OXIDE OINT 113 GM TUBE TOP SCH ×2 (09:22→20:36)
[2019-09-18 11:34] VITALS: BP 94/51
[2019-09-18] MEDS: THIAMINE HCL 100 MG TABLET GT SCH (20:35)
[2019-09-18] MEDS: FOLIC ACID 1 MG TABLET GT SCH (20:35)
[2019-09-18] MEDS: CHOLECALCIFEROL 1,000 UNIT TABLET GT SCH (20:35)
--- NOTE | 2019-09-18 21:00 | NUR ---
Temperature was 95 *f, skin is cool to touch, no signs of distress, applied Som hugger at this time, will continue monitor.
[2019-09-18 21:53] VITALS: BP 123/61
[2019-09-19] MEDS: IPRATROPIUM BROMIDE 0.5 MG/2.5 ML NEBU NEB SCH ×6 (02:53→23:13)
[2019-09-19] MEDS: ALBUTEROL SULFATE 2.5 MG/3 ML NEBU NEB SCH ×6 (02:53→23:13)
[2019-09-19] MEDS: MIDODRINE HCL 10 MG TABLET GT SCH ×3 (05:21→21:44)
[2019-09-19] MEDS: BACLOFEN 10 MG TABLET GT SCH ×3 (05:21→21:44)
[2019-09-19] MEDS: BACLOFEN 20 MG TABLET GT SCH ×3 (05:21→21:44)
[2019-09-19] MEDS: OMEPRAZOLE 20 MG CAPSULE.DR GT SCH (05:22)
[2019-09-19] MEDS: METOCLOPRAMIDE HCL 5 MG TABLET GT SCH ×3 (05:22→21:44)
--- NOTE | 2019-09-19 07:05 | NUR ---
PT REC'D ON CARBAJAL VENT TOLERATING CURRENT VENT SETTINGS WELL, NO DISTRESS/SOB NOTED AT THIS TIME. PT VENT'D VIA TRACHEOSTOMY, TUBE IN PLACE PATENT AND SECURE WITH TRACH TIE. INH NEB TX'S TO BE GIVEN PER MD ORDER AND SXN'ING TO BE DONE NEEDED. VENT ALARMS AUDIBLE, CHECKED AND RESET. BVM AND BACK-UP TRACH AT BEDSIDE.
[2019-09-19 08:30] VITALS: BP 97/50
[2019-09-19] MEDS: HYDROGEN PEROXIDE 3% 118 ML BOTTLE TP SCH ×2 (09:00→21:21)
[2019-09-19] MEDS: PHENYTOIN 100 MG/4 ML UDC GT SCH ×2 (09:26→20:37)
[2019-09-19] MEDS: DESMOPRESSIN 0.1 MG TABLET GT SCH (09:26)
[2019-09-19] MEDS: levETIRAcetam 500 MG/5 ML LIQUID UDC GT SCH ×2 (09:28→20:37)
[2019-09-19] MEDS: ACIDOPHILUS/BULGARICUS CHEW TAB GT SCH ×2 (09:28→21:44)
[2019-09-19] MEDS: FUROSEMIDE 20 MG/2 ML GT SCH (09:29)
[2019-09-19] MEDS: NEOMY/BACITRA/POLYMYXIN B OINT UD PACKET TP SCH ×2 (09:30→20:38)
[2019-09-19] MEDS: POTASSIUM CHLORIDE 40 MEQ/30 ML LIQUID UDC GT SCH (09:30)
[2019-09-19] MEDS: COD LIVER OIL/ZINC OXIDE OINT 113 GM TUBE TOP SCH ×2 (09:30→20:38)
--- NOTE | 2019-09-19 11:00 | NUR ---
SEEN BY EMMY WAY.
--- NOTE | 2019-09-19 11:00 | NUR ---
NEW ORDERS CARRIED OUT FROM EMMY Agustin
[2019-09-19 20:17] VITALS: BP 96/53
[2019-09-19] MEDS: FOLIC ACID 1 MG TABLET GT SCH (20:37)
[2019-09-19] MEDS: CHOLECALCIFEROL 1,000 UNIT TABLET GT SCH (20:38)
[2019-09-19] MEDS: THIAMINE HCL 100 MG TABLET GT SCH (20:38)
[2019-09-20] MEDS: IPRATROPIUM BROMIDE 0.5 MG/2.5 ML NEBU NEB SCH ×6 (02:43→22:46)
[2019-09-20] MEDS: ALBUTEROL SULFATE 2.5 MG/3 ML NEBU NEB SCH ×6 (02:43→22:46)
[2019-09-20] MEDS: BACLOFEN 20 MG TABLET GT SCH ×3 (05:20→21:32)
[2019-09-20] MEDS: BACLOFEN 10 MG TABLET GT SCH ×3 (05:20→21:32)
[2019-09-20] MEDS: MIDODRINE HCL 10 MG TABLET GT SCH ×3 (05:21→21:33)
[2019-09-20] MEDS: METOCLOPRAMIDE HCL 5 MG TABLET GT SCH ×3 (05:21→21:33)
[2019-09-20] MEDS: OMEPRAZOLE 20 MG CAPSULE.DR GT SCH (05:21)
[2019-09-20 06:46] LABS: BASOPHILS # (AUTO) 0.1 K/uL (0.0-8.0); BASOPHILS % (AUTO) 0.7 % (0.0-2.0); EOSINOPHILS # (AUTO) 0.5 K/uL (0.0-0.7); EOSINOPHILS % (AUTO) 6.5 % (0.0-7.0); HEMATOCRIT 30.8 % (31.2-41.9); HEMOGLOBIN 10.6 g/dL (10.9-14.3); LYMPHOCYTES # (AUTO) 2.1 K/uL (20.0-40.0); LYMPHOCYTES % (AUTO) 25.6 % (20.5-51.5); MEAN CORPUSCULAR HEMOGLOBIN 32.3 uug (24.7-32.8); MEAN CORPUSCULAR HGB CONC 35 g/dL (32.3-35.6); MEAN CORPUSCULAR VOLUME 93.6 fL (75.5-95.3); MONOCYTES # (AUTO) 0.5 K/uL (2.0-10.0); MONOCYTES % (AUTO) 6.2 % (0.0-11.0); NEUTROPHILS # (AUTO) 4.9 K/uL (1.8-8.9); PLATELET COUNT (AUTO) 223 K/uL (179-408); RED BLOOD CELL COUNT(AUTO) 3.29 MIL/uL (3.63-4.92)
[2019-09-20 06:53] LABS: CARBON DIOXIDE 23 mmol/L (21-32); CHLORIDE 106 mmol/L (98-107); CREATININE 0.5 mg/dL (0.6-1.3); GLUCOSE 96 mg/dL (74-106); POTASSIUM 3.7 mmol/L (3.5-5.1); UREA NITROGEN, BLOOD 18 mg/dL (7-18)
[2019-09-20] MEDS: HYDROGEN PEROXIDE 3% 118 ML BOTTLE TP SCH ×2 (09:00→20:37)
[2019-09-20] MEDS: DESMOPRESSIN 0.1 MG TABLET GT SCH (09:02)
[2019-09-20] MEDS: ACIDOPHILUS/BULGARICUS CHEW TAB GT SCH ×2 (09:04→21:28)
[2019-09-20] MEDS: PHENYTOIN 100 MG/4 ML UDC GT SCH ×2 (09:04→21:28)
[2019-09-20] MEDS: levETIRAcetam 500 MG/5 ML LIQUID UDC GT SCH ×2 (09:06→21:30)
[2019-09-20] MEDS: FUROSEMIDE 20 MG/2 ML GT SCH (09:07)
[2019-09-20] MEDS: POTASSIUM CHLORIDE 40 MEQ/30 ML LIQUID UDC GT SCH (09:07)
[2019-09-20] MEDS: COD LIVER OIL/ZINC OXIDE OINT 113 GM TUBE TOP SCH ×2 (09:08→21:32)
[2019-09-20] MEDS: NEOMY/BACITRA/POLYMYXIN B OINT UD PACKET TP SCH ×2 (09:09→21:32)
[2019-09-20 11:01] VITALS: BP 100/58
[2019-09-20] MEDS: VITAL AF 1.2 1,000 ML LIQUID GT SCH (14:31)
[2019-09-20 20:00] VITALS: BP 105/61
[2019-09-20] MEDS: FOLIC ACID 1 MG TABLET GT SCH (21:29)
[2019-09-20] MEDS: CHOLECALCIFEROL 1,000 UNIT TABLET GT SCH (21:32)
[2019-09-20] MEDS: THIAMINE HCL 100 MG TABLET GT SCH (21:32)
[2019-09-21] MEDS: ALBUTEROL SULFATE 2.5 MG/3 ML NEBU NEB SCH ×6 (03:05→22:40)
[2019-09-21] MEDS: IPRATROPIUM BROMIDE 0.5 MG/2.5 ML NEBU NEB SCH ×6 (03:05→22:40)
[2019-09-21] MEDS: BACLOFEN 10 MG TABLET GT SCH ×3 (05:58→21:16)
[2019-09-21] MEDS: BACLOFEN 20 MG TABLET GT SCH ×3 (05:58→21:16)
[2019-09-21] MEDS: OMEPRAZOLE 20 MG CAPSULE.DR GT SCH (05:59)
[2019-09-21] MEDS: METOCLOPRAMIDE HCL 5 MG TABLET GT SCH ×3 (05:59→21:16)
[2019-09-21] MEDS: MIDODRINE HCL 10 MG TABLET GT SCH ×3 (05:59→21:16)
[2019-09-21] MEDS: levETIRAcetam 500 MG/5 ML LIQUID UDC GT SCH ×2 (08:53→21:14)
[2019-09-21] MEDS: POTASSIUM CHLORIDE 40 MEQ/30 ML LIQUID UDC GT SCH (08:53)
[2019-09-21] MEDS: DESMOPRESSIN 0.1 MG TABLET GT SCH (08:53)
[2019-09-21] MEDS: PHENYTOIN 100 MG/4 ML UDC GT SCH ×2 (08:53→21:12)
[2019-09-21] MEDS: FUROSEMIDE 20 MG/2 ML GT SCH (08:53)
[2019-09-21] MEDS: ACIDOPHILUS/BULGARICUS CHEW TAB GT SCH ×2 (08:53→21:13)
[2019-09-21] MEDS: COD LIVER OIL/ZINC OXIDE OINT 113 GM TUBE TOP SCH ×2 (08:53→21:16)
[2019-09-21] MEDS: NEOMY/BACITRA/POLYMYXIN B OINT UD PACKET TP SCH ×2 (08:53→21:16)
[2019-09-21] MEDS: HYDROGEN PEROXIDE 3% 118 ML BOTTLE TP SCH ×2 (09:00→20:41)
--- NOTE | 2019-09-21 13:00 | NUR ---
Pt visited by mother ,education provided to the mother to use mask ,she just traveled from [place] ,for universal precautions. Addendum: 09/24/19 at 1207 by MECHELLE GUERRERO RN [facility] call or contact centre manager ,aware of pt's mother visit ,and recommended the use of mask.
--- NOTE | 2019-09-21 19:11 | NUR ---
Pt received on HT-50 ventilator with the following settings of SIMV-12, Vt-500, PEEP+5, PS-10, FIO2-2LPM bleed in, trached with Shiley#6 DCT trach, which is in the place and secure. No respiratory distress noted. Airway care done, pt responded to physical stimuli. In-line HHN tx with 2.5mg Albuterol+0.5mg Atrovent given, no adverse reaction noted. HME changed. Resus. bag and back up trach at bedside. Vent and alarms checked and reset.
[2019-09-21 20:00] VITALS: BP 110/62
[2019-09-21] MEDS: FOLIC ACID 1 MG TABLET GT SCH (21:13)
[2019-09-21] MEDS: THIAMINE HCL 100 MG TABLET GT SCH (21:14)
[2019-09-21] MEDS: CHOLECALCIFEROL 1,000 UNIT TABLET GT SCH (21:15)
[2019-09-22] MEDS: IPRATROPIUM BROMIDE 0.5 MG/2.5 ML NEBU NEB SCH ×6 (02:40→23:30)
[2019-09-22] MEDS: ALBUTEROL SULFATE 2.5 MG/3 ML NEBU NEB SCH ×6 (02:40→23:30)
[2019-09-22] MEDS: OMEPRAZOLE 20 MG CAPSULE.DR GT SCH (05:42)
[2019-09-22] MEDS: BACLOFEN 20 MG TABLET GT SCH ×3 (05:42→21:28)
[2019-09-22] MEDS: METOCLOPRAMIDE HCL 5 MG TABLET GT SCH ×3 (05:42→21:28)
[2019-09-22] MEDS: BACLOFEN 10 MG TABLET GT SCH ×3 (05:42→21:28)
[2019-09-22] MEDS: MIDODRINE HCL 10 MG TABLET GT SCH ×3 (05:42→21:28)
[2019-09-22 08:00] VITALS: BP 125/67
[2019-09-22] MEDS: ACIDOPHILUS/BULGARICUS CHEW TAB GT SCH ×2 (08:55→21:23)
[2019-09-22] MEDS: POTASSIUM CHLORIDE 40 MEQ/30 ML LIQUID UDC GT SCH (08:55)
[2019-09-22] MEDS: COD LIVER OIL/ZINC OXIDE OINT 113 GM TUBE TOP SCH ×2 (08:55→21:27)
[2019-09-22] MEDS: PHENYTOIN 100 MG/4 ML UDC GT SCH ×2 (08:55→21:22)
[2019-09-22] MEDS: FUROSEMIDE 20 MG/2 ML GT SCH (08:55)
[2019-09-22] MEDS: levETIRAcetam 500 MG/5 ML LIQUID UDC GT SCH ×2 (08:55→21:24)
[2019-09-22] MEDS: DESMOPRESSIN 0.1 MG TABLET GT SCH (08:55)
[2019-09-22] MEDS: NEOMY/BACITRA/POLYMYXIN B OINT UD PACKET TP SCH ×2 (08:56→21:27)
[2019-09-22] MEDS: HYDROGEN PEROXIDE 3% 118 ML BOTTLE TP SCH ×2 (09:00→21:07)
[2019-09-22 20:00] VITALS: BP 102/64
[2019-09-22] MEDS: FOLIC ACID 1 MG TABLET GT SCH (21:24)
[2019-09-22] MEDS: THIAMINE HCL 100 MG TABLET GT SCH (21:26)
[2019-09-22] MEDS: CHOLECALCIFEROL 1,000 UNIT TABLET GT SCH (21:27)
[2019-09-23] MEDS: ALBUTEROL SULFATE 2.5 MG/3 ML NEBU NEB SCH ×6 (02:50→23:11)
[2019-09-23] MEDS: IPRATROPIUM BROMIDE 0.5 MG/2.5 ML NEBU NEB SCH ×6 (02:50→23:11)
[2019-09-23 05:11] VITALS: BP 94/48
[2019-09-23] MEDS: METOCLOPRAMIDE HCL 5 MG TABLET GT SCH ×3 (06:15→21:09)
[2019-09-23] MEDS: OMEPRAZOLE 20 MG CAPSULE.DR GT SCH (06:15)
[2019-09-23] MEDS: BACLOFEN 10 MG TABLET GT SCH ×3 (06:15→21:08)
[2019-09-23] MEDS: MIDODRINE HCL 10 MG TABLET GT SCH ×3 (06:15→21:09)
[2019-09-23] MEDS: BACLOFEN 20 MG TABLET GT SCH ×3 (06:15→21:08)
[2019-09-23 08:01] VITALS: BP 95/58
[2019-09-23] MEDS: DESMOPRESSIN 0.1 MG TABLET GT SCH (08:11)
[2019-09-23] MEDS: PHENYTOIN 100 MG/4 ML UDC GT SCH ×2 (08:14→20:26)
[2019-09-23] MEDS: ACIDOPHILUS/BULGARICUS CHEW TAB GT SCH ×2 (08:14→20:26)
[2019-09-23] MEDS: POTASSIUM CHLORIDE 40 MEQ/30 ML LIQUID UDC GT SCH (08:15)
[2019-09-23] MEDS: FUROSEMIDE 20 MG/2 ML GT SCH (08:15)
[2019-09-23] MEDS: levETIRAcetam 500 MG/5 ML LIQUID UDC GT SCH ×2 (08:15→20:26)
[2019-09-23] MEDS: COD LIVER OIL/ZINC OXIDE OINT 113 GM TUBE TOP SCH ×2 (08:17→20:26)
[2019-09-23] MEDS: NEOMY/BACITRA/POLYMYXIN B OINT UD PACKET TP SCH ×2 (08:17→20:26)
[2019-09-23] MEDS: HYDROGEN PEROXIDE 3% 118 ML BOTTLE TP SCH ×2 (09:29→22:21)
[2019-09-23] MEDS: VITAL AF 1.2 1,000 ML LIQUID GT SCH (14:24)
--- NOTE | 2019-09-23 19:03 | NUR ---
This SW spoke with patient's family policy services representative Mahamed [phone] and informed her that per CDC and [facility] decision to minimize the risk of subacute residents becoming sick with the COVID-19 virus, visitation to [facility] will be suspended, effective immediately, and until further notice. Mahamed expressed understanding, and stated that she would notify patient's mother.
[2019-09-23 20:00] VITALS: BP 97/59
[2019-09-23] MEDS: THIAMINE HCL 100 MG TABLET GT SCH (20:26)
[2019-09-23] MEDS: FOLIC ACID 1 MG TABLET GT SCH (20:26)
[2019-09-23] MEDS: CHOLECALCIFEROL 1,000 UNIT TABLET GT SCH (20:26)
[2019-09-24] MEDS: IPRATROPIUM BROMIDE 0.5 MG/2.5 ML NEBU NEB SCH ×7 (02:33→22:35)
[2019-09-24] MEDS: ALBUTEROL SULFATE 2.5 MG/3 ML NEBU NEB SCH ×7 (02:33→22:35)
[2019-09-24] MEDS: OMEPRAZOLE 20 MG CAPSULE.DR GT SCH (05:25)
[2019-09-24] MEDS: METOCLOPRAMIDE HCL 5 MG TABLET GT SCH ×3 (05:25→21:06)
[2019-09-24] MEDS: BACLOFEN 20 MG TABLET GT SCH ×3 (05:25→21:06)
[2019-09-24] MEDS: MIDODRINE HCL 10 MG TABLET GT SCH ×3 (05:25→21:06)
[2019-09-24] MEDS: BACLOFEN 10 MG TABLET GT SCH ×3 (05:25→21:06)
[2019-09-24 07:42] VITALS: BP 127/67
--- NOTE | 2019-09-24 08:00 | NUR ---
Pt received sleepy ,afebrile temp 97.6,with no respiratory distress noted o2 sat 98%,no discomfort noted.
[2019-09-24] MEDS: POTASSIUM CHLORIDE 40 MEQ/30 ML LIQUID UDC GT SCH (08:53)
[2019-09-24] MEDS: COD LIVER OIL/ZINC OXIDE OINT 113 GM TUBE TOP SCH ×2 (08:53→20:28)
[2019-09-24] MEDS: PHENYTOIN 100 MG/4 ML UDC GT SCH ×2 (08:53→20:28)
[2019-09-24] MEDS: FUROSEMIDE 20 MG/2 ML GT SCH (08:53)
[2019-09-24] MEDS: levETIRAcetam 500 MG/5 ML LIQUID UDC GT SCH ×2 (08:53→20:28)
[2019-09-24] MEDS: DESMOPRESSIN 0.1 MG TABLET GT SCH (08:53)
[2019-09-24] MEDS: ACIDOPHILUS/BULGARICUS CHEW TAB GT SCH ×2 (08:53→20:28)
[2019-09-24] MEDS: NEOMY/BACITRA/POLYMYXIN B OINT UD PACKET TP SCH ×2 (08:54→20:28)
[2019-09-24] MEDS: HYDROGEN PEROXIDE 3% 118 ML BOTTLE TP SCH ×3 (09:01→19:22)
[2019-09-24] MEDS: VITAL AF 1.2 1,000 ML LIQUID GT SCH (12:52)
[2019-09-24] MEDS: CHOLECALCIFEROL 1,000 UNIT TABLET GT SCH (20:28)
[2019-09-24] MEDS: FOLIC ACID 1 MG TABLET GT SCH (20:28)
[2019-09-24] MEDS: THIAMINE HCL 100 MG TABLET GT SCH (20:28)
[2019-09-24 20:30] VITALS: BP 103/61
[2019-09-25] MEDS: ALBUTEROL SULFATE 2.5 MG/3 ML NEBU NEB SCH ×6 (02:35→22:35)
[2019-09-25] MEDS: IPRATROPIUM BROMIDE 0.5 MG/2.5 ML NEBU NEB SCH ×6 (02:35→22:35)
[2019-09-25] MEDS: MIDODRINE HCL 10 MG TABLET GT SCH ×3 (05:38→21:16)
[2019-09-25] MEDS: OMEPRAZOLE 20 MG CAPSULE.DR GT SCH (05:38)
[2019-09-25] MEDS: BACLOFEN 20 MG TABLET GT SCH ×3 (05:38→21:15)
[2019-09-25] MEDS: METOCLOPRAMIDE HCL 5 MG TABLET GT SCH ×3 (05:38→21:16)
[2019-09-25] MEDS: BACLOFEN 10 MG TABLET GT SCH ×3 (05:38→21:15)
[2019-09-25 08:00] VITALS: BP 114/71
[2019-09-25] MEDS: HYDROGEN PEROXIDE 3% 118 ML BOTTLE TP SCH ×2 (09:00→19:05)
[2019-09-25] MEDS: DESMOPRESSIN 0.1 MG TABLET GT SCH (09:04)
[2019-09-25] MEDS: POTASSIUM CHLORIDE 40 MEQ/30 ML LIQUID UDC GT SCH (09:04)
[2019-09-25] MEDS: ACIDOPHILUS/BULGARICUS CHEW TAB GT SCH ×2 (09:04→20:30)
[2019-09-25] MEDS: COD LIVER OIL/ZINC OXIDE OINT 113 GM TUBE TOP SCH ×2 (09:04→20:30)
[2019-09-25] MEDS: levETIRAcetam 500 MG/5 ML LIQUID UDC GT SCH ×2 (09:04→20:30)
[2019-09-25] MEDS: PHENYTOIN 100 MG/4 ML UDC GT SCH ×2 (09:04→20:30)
[2019-09-25] MEDS: FUROSEMIDE 20 MG/2 ML GT SCH (09:04)
[2019-09-25] MEDS: NEOMY/BACITRA/POLYMYXIN B OINT UD PACKET TP SCH ×2 (09:08→20:30)
[2019-09-25] MEDS: VITAL AF 1.2 1,000 ML LIQUID GT SCH (12:47)
--- NOTE | 2019-09-25 17:13 | NUR ---
Afebrile ,temp 97.3 ,trach in place connected to ventilator,,no respiratory distress ,no increase secretions,no changes of condition.
[2019-09-25 20:16] VITALS: BP 96/52
[2019-09-25] MEDS: THIAMINE HCL 100 MG TABLET GT SCH (20:30)
[2019-09-25] MEDS: CHOLECALCIFEROL 1,000 UNIT TABLET GT SCH (20:30)
[2019-09-25] MEDS: FOLIC ACID 1 MG TABLET GT SCH (20:30)
--- NOTE | 2019-09-25 22:08 | NUR ---
Afebrile, temperature is 97.3 Fahrenheit, trach is intact and patent, connected to vent, 02 sat is 98%, no respiratory distress noted, kept clean and comfortable.
[2019-09-26] MEDS: IPRATROPIUM BROMIDE 0.5 MG/2.5 ML NEBU NEB SCH ×6 (02:35→22:43)
[2019-09-26] MEDS: ALBUTEROL SULFATE 2.5 MG/3 ML NEBU NEB SCH ×6 (02:35→22:43)
[2019-09-26] MEDS: METOCLOPRAMIDE HCL 5 MG TABLET GT SCH ×3 (05:13→22:10)
[2019-09-26] MEDS: BACLOFEN 20 MG TABLET GT SCH ×3 (05:13→22:09)
[2019-09-26] MEDS: MIDODRINE HCL 10 MG TABLET GT SCH ×3 (05:13→22:10)
[2019-09-26] MEDS: OMEPRAZOLE 20 MG CAPSULE.DR GT SCH (05:13)
[2019-09-26] MEDS: BACLOFEN 10 MG TABLET GT SCH ×3 (05:13→22:09)
[2019-09-26 08:00] VITALS: BP 121/73
[2019-09-26] MEDS: DESMOPRESSIN 0.1 MG TABLET GT SCH (08:28)
[2019-09-26] MEDS: PHENYTOIN 100 MG/4 ML UDC GT SCH ×2 (08:28→20:32)
[2019-09-26] MEDS: ACIDOPHILUS/BULGARICUS CHEW TAB GT SCH ×2 (08:29→20:33)
[2019-09-26] MEDS: levETIRAcetam 500 MG/5 ML LIQUID UDC GT SCH ×2 (08:29→20:34)
[2019-09-26] MEDS: FUROSEMIDE 20 MG/2 ML GT SCH (08:31)
[2019-09-26] MEDS: POTASSIUM CHLORIDE 40 MEQ/30 ML LIQUID UDC GT SCH (08:31)
[2019-09-26] MEDS: COD LIVER OIL/ZINC OXIDE OINT 113 GM TUBE TOP SCH ×2 (08:32→20:35)
[2019-09-26] MEDS: HYDROGEN PEROXIDE 3% 118 ML BOTTLE TP SCH ×2 (09:00→20:44)
[2019-09-26] MEDS: NEOMY/BACITRA/POLYMYXIN B OINT UD PACKET TP SCH ×2 (09:00→20:35)
--- NOTE | 2019-09-26 14:40 | NUR ---
Patient stable, no acute respiratory distress noted, repositioned q2hrs for comfort.
--- NOTE | 2019-09-26 19:21 | NUR ---
Pt received on HT-50 ventilator with the following settings of SIMV-12, Vt-500, PEEP+5, PS-10, FIO2-2LPM bleed in, trached with Shiley#6 DCT trach, which is in the place and secure. No distress noted. Airway care done, pt responded to physical stimuli. In-line HHN tx with 2.5mg Albuterol+0.5mg Atrovent given, no adverse reaction noted. HME changed. Resus. bag and back up trach at bedside. Vent and alarms checked and reset.
[2019-09-26 20:05] VITALS: BP 101/55
[2019-09-26] MEDS: FOLIC ACID 1 MG TABLET GT SCH (20:34)
[2019-09-26] MEDS: THIAMINE HCL 100 MG TABLET GT SCH (20:34)
[2019-09-26] MEDS: CHOLECALCIFEROL 1,000 UNIT TABLET GT SCH (20:35)
[2019-09-26] MEDS: NYSTATIN CREAM 30 GM TUBE TP SCH (21:00)
[2019-09-26] MEDS: TRIAMCINOLONE ACET 0.1% CREAM 15 GM TUBE TP SCH (21:00)
--- NOTE | 2019-09-26 21:41 | NUR ---
Temperature is 97.4, no SOB, no signs of any respiratory distress noted, 02 sat is 99%, connected to vent. Patient is stable, turned and repositioned, kept clean and comfortable.
[2019-09-27] MEDS: ALBUTEROL SULFATE 2.5 MG/3 ML NEBU NEB SCH ×6 (02:40→22:40)
[2019-09-27] MEDS: IPRATROPIUM BROMIDE 0.5 MG/2.5 ML NEBU NEB SCH ×6 (02:40→22:40)
[2019-09-27] MEDS: BACLOFEN 20 MG TABLET GT SCH ×3 (05:58→22:04)
[2019-09-27] MEDS: BACLOFEN 10 MG TABLET GT SCH ×3 (05:58→22:04)
[2019-09-27] MEDS: METOCLOPRAMIDE HCL 5 MG TABLET GT SCH ×3 (05:58→22:05)
[2019-09-27] MEDS: MIDODRINE HCL 10 MG TABLET GT SCH ×3 (05:58→22:05)
[2019-09-27] MEDS: OMEPRAZOLE 20 MG CAPSULE.DR GT SCH (05:58)
[2019-09-27 08:00] VITALS: BP 98/63
[2019-09-27 08:08] LABS: BASOPHILS % (AUTO) 0.6 % (0.0-2.0); EOSINOPHILS # (AUTO) 0.5 K/uL (0.0-0.7); EOSINOPHILS % (AUTO) 6.3 % (0.0-7.0); HEMATOCRIT 31.1 % (31.2-41.9); MEAN CORPUSCULAR HEMOGLOBIN 32.8 uug (24.7-32.8); MEAN CORPUSCULAR HGB CONC 35 g/dL (32.3-35.6); MEAN CORPUSCULAR VOLUME 93.2 fL (75.5-95.3); MONOCYTES # (AUTO) 0.6 K/uL (2.0-10.0); MONOCYTES % (AUTO) 6.9 % (0.0-11.0); NEUTROPHILS # (AUTO) 4.9 K/uL (1.8-8.9); NEUTROPHILS % (AUTO) 61.2 % (38.5-71.5); PLATELET COUNT (AUTO) 246 K/uL (179-408); RED BLOOD CELL COUNT(AUTO) 3.34 MIL/uL (3.63-4.92)
[2019-09-27 08:18] LABS: CARBON DIOXIDE 24 mmol/L (21-32); CHLORIDE 108 mmol/L (98-107); CREATININE 0.5 mg/dL (0.6-1.3); GLUCOSE 87 mg/dL (74-106); MAGNESIUM 1.9 mg/dL (1.8-2.4); PHOSPHOROUS 3.9 mg/dL (2.5-4.9); POTASSIUM 3.8 mmol/L (3.5-5.1); UREA NITROGEN, BLOOD 20 mg/dL (7-18)
[2019-09-27] MEDS: POTASSIUM CHLORIDE 40 MEQ/30 ML LIQUID UDC GT SCH (09:04)
[2019-09-27] MEDS: ACIDOPHILUS/BULGARICUS CHEW TAB GT SCH ×2 (09:04→20:40)
[2019-09-27] MEDS: levETIRAcetam 500 MG/5 ML LIQUID UDC GT SCH ×2 (09:04→20:41)
[2019-09-27] MEDS: COD LIVER OIL/ZINC OXIDE OINT 113 GM TUBE TOP SCH ×2 (09:04→20:42)
[2019-09-27] MEDS: DESMOPRESSIN 0.1 MG TABLET GT SCH (09:05)
[2019-09-27] MEDS: NYSTATIN CREAM 30 GM TUBE TP SCH ×2 (09:09→20:42)
[2019-09-27] MEDS: NEOMY/BACITRA/POLYMYXIN B OINT UD PACKET TP SCH ×2 (09:09→20:42)
[2019-09-27] MEDS: PHENYTOIN 100 MG/4 ML UDC GT SCH ×2 (09:09→20:40)
[2019-09-27] MEDS: TRIAMCINOLONE ACET 0.1% CREAM 15 GM TUBE TP SCH ×2 (09:09→20:42)
[2019-09-27] MEDS: FUROSEMIDE 20 MG/2 ML GT SCH (09:12)
[2019-09-27] MEDS: HYDROGEN PEROXIDE 3% 118 ML BOTTLE TP SCH ×2 (09:57→21:02)
--- NOTE | 2019-09-27 12:35 | NUR ---
Seen and examined by Dr Meyer,aware of the labs results,no new orders noted.
--- NOTE | 2019-09-27 18:21 | NUR ---
No acute respiratory distress ,trach to ventilator ,no increase secretions,afebrile temperature 97.9.
[2019-09-27] MEDS: FOLIC ACID 1 MG TABLET GT SCH (20:40)
[2019-09-27] MEDS: THIAMINE HCL 100 MG TABLET GT SCH (20:42)
[2019-09-27] MEDS: CHOLECALCIFEROL 1,000 UNIT TABLET GT SCH (20:42)
[2019-09-27 21:35] VITALS: BP 92/62
[2019-09-28] MEDS: IPRATROPIUM BROMIDE 0.5 MG/2.5 ML NEBU NEB SCH ×6 (02:40→22:35)
[2019-09-28] MEDS: ALBUTEROL SULFATE 2.5 MG/3 ML NEBU NEB SCH ×6 (02:40→22:35)
[2019-09-28] MEDS: BACLOFEN 10 MG TABLET GT SCH ×3 (05:44→21:04)
[2019-09-28] MEDS: BACLOFEN 20 MG TABLET GT SCH ×3 (05:44→21:04)
[2019-09-28] MEDS: MIDODRINE HCL 10 MG TABLET GT SCH ×3 (05:45→21:04)
[2019-09-28] MEDS: METOCLOPRAMIDE HCL 5 MG TABLET GT SCH ×3 (05:45→21:04)
[2019-09-28] MEDS: OMEPRAZOLE 20 MG CAPSULE.DR GT SCH (05:45)
[2019-09-28] MEDS: HYDROGEN PEROXIDE 3% 118 ML BOTTLE TP SCH ×2 (07:52→19:58)
[2019-09-28] MEDS: DESMOPRESSIN 0.1 MG TABLET GT SCH (09:00)
[2019-09-28] MEDS: PHENYTOIN 100 MG/4 ML UDC GT SCH ×2 (09:00→20:54)
[2019-09-28] MEDS: FUROSEMIDE 20 MG/2 ML GT SCH (09:01)
[2019-09-28] MEDS: levETIRAcetam 500 MG/5 ML LIQUID UDC GT SCH ×2 (09:01→20:50)
[2019-09-28] MEDS: ACIDOPHILUS/BULGARICUS CHEW TAB GT SCH ×2 (09:01→20:49)
[2019-09-28] MEDS: POTASSIUM CHLORIDE 40 MEQ/30 ML LIQUID UDC GT SCH (09:01)
[2019-09-28] MEDS: TRIAMCINOLONE ACET 0.1% CREAM 15 GM TUBE TP SCH ×2 (09:02→20:52)
[2019-09-28] MEDS: COD LIVER OIL/ZINC OXIDE OINT 113 GM TUBE TOP SCH ×2 (09:02→20:52)
[2019-09-28] MEDS: NYSTATIN CREAM 30 GM TUBE TP SCH ×2 (09:02→20:52)
[2019-09-28] MEDS: NEOMY/BACITRA/POLYMYXIN B OINT UD PACKET TP SCH ×3 (09:02→20:52)
[2019-09-28 09:14] VITALS: BP 149/68
[2019-09-28 14:30] VITALS: BP 90/51
--- NOTE | 2019-09-28 14:59 | NUR ---
0730 PT was received in bed and asleep. Vitals WNL. Temperature noted at 95.3. No respiratory distress noted. Provided bear hugger PRN per MD's order. Safety precautions were given. Call light within reach. Will continue to monitor. 1000 PT noted with temperature of 95.5. Continued with bear hugger PRN. Will continue to monitor. 1215 PT noted with temperature of 96.4 Continued with bear hugger PRN. Will continue to monitor. 1400 PT noted with temperature of 97.6. No respiratory distress noted. PT skin is pink and warm to touch. Will continue to monitor.
--- NOTE | 2019-09-28 18:25 | NUR ---
No respiratory distress,no increase secretions noted,trach connected to ventilator,temp recheck 97.8.pt was on warming blanket for hypothermia.
[2019-09-28 20:26] VITALS: BP 93/51
[2019-09-28] MEDS: FOLIC ACID 1 MG TABLET GT SCH (20:50)
[2019-09-28] MEDS: THIAMINE HCL 100 MG TABLET GT SCH (20:51)
[2019-09-28] MEDS: CHOLECALCIFEROL 1,000 UNIT TABLET GT SCH (20:52)
[2019-09-29] MEDS: ALBUTEROL SULFATE 2.5 MG/3 ML NEBU NEB SCH ×6 (02:35→23:06)
[2019-09-29] MEDS: IPRATROPIUM BROMIDE 0.5 MG/2.5 ML NEBU NEB SCH ×6 (02:35→23:06)
[2019-09-29] MEDS: BACLOFEN 20 MG TABLET GT SCH ×3 (05:09→22:12)
[2019-09-29] MEDS: MIDODRINE HCL 10 MG TABLET GT SCH ×3 (05:09→22:13)
[2019-09-29] MEDS: BACLOFEN 10 MG TABLET GT SCH ×3 (05:09→22:12)
[2019-09-29] MEDS: OMEPRAZOLE 20 MG CAPSULE.DR GT SCH (05:09)
[2019-09-29] MEDS: METOCLOPRAMIDE HCL 5 MG TABLET GT SCH ×3 (05:09→22:13)
[2019-09-29] MEDS: DESMOPRESSIN 0.1 MG TABLET GT SCH (09:31)
[2019-09-29] MEDS: ACIDOPHILUS/BULGARICUS CHEW TAB GT SCH ×2 (09:31→20:34)
[2019-09-29] MEDS: POTASSIUM CHLORIDE 40 MEQ/30 ML LIQUID UDC GT SCH (09:31)
[2019-09-29] MEDS: COD LIVER OIL/ZINC OXIDE OINT 113 GM TUBE TOP SCH ×2 (09:31→20:36)
[2019-09-29] MEDS: FUROSEMIDE 20 MG/2 ML GT SCH (09:31)
[2019-09-29] MEDS: PHENYTOIN 100 MG/4 ML UDC GT SCH ×2 (09:31→20:33)
[2019-09-29] MEDS: levETIRAcetam 500 MG/5 ML LIQUID UDC GT SCH ×2 (09:31→20:35)
[2019-09-29] MEDS: TRIAMCINOLONE ACET 0.1% CREAM 15 GM TUBE TP SCH ×2 (09:32→20:37)
[2019-09-29] MEDS: NEOMY/BACITRA/POLYMYXIN B OINT UD PACKET TP SCH ×4 (09:33→20:37)
[2019-09-29] MEDS: NYSTATIN CREAM 30 GM TUBE TP SCH ×2 (09:33→20:37)
[2019-09-29] MEDS: HYDROGEN PEROXIDE 3% 118 ML BOTTLE TP SCH ×2 (09:34→20:51)
[2019-09-29 11:32] VITALS: BP 96/56
[2019-09-29] MEDS: MAGNESIUM HYDROXIDE 30 ML LIQUID UDC GT PRN (18:39)
[2019-09-29] MEDS: VITAL AF 1.2 1,000 ML LIQUID GT SCH (18:39)
[2019-09-29] MEDS: BISACODYL 10 MG SUPP.RECT RC PRN (18:39)
--- NOTE | 2019-09-29 19:06 | NUR ---
SEEN BY DR. ANDER WAY.
--- NOTE | 2019-09-29 19:40 | NUR ---
PT RECEIVED ON CONTINUOUS VENT, TRACH TUBE IN PLACE PATENT AND SECURE WITH TRACH TIE. AMBU BAG AND BACK-UP TRACH AT BEDSIDE. TRACH CARE DONE. IN LINE TX GIVEN WITH UD ALBUTEROL+ UD ATROVENT ORDERED. SUCTION PRN. VENT ALARMS AUDIBLE, CHECKED AND RESET. NO DISTRESS NOTED AT THIS TIME. WILL CONTINUE TO MONITOR.
[2019-09-29] MEDS: FOLIC ACID 1 MG TABLET GT SCH (20:34)
[2019-09-29] MEDS: THIAMINE HCL 100 MG TABLET GT SCH (20:35)
[2019-09-29] MEDS: CHOLECALCIFEROL 1,000 UNIT TABLET GT SCH (20:36)
[2019-09-29 20:46] VITALS: BP 111/67
[2019-09-30] MEDS: IPRATROPIUM BROMIDE 0.5 MG/2.5 ML NEBU NEB SCH ×6 (03:09→23:14)
[2019-09-30] MEDS: ALBUTEROL SULFATE 2.5 MG/3 ML NEBU NEB SCH ×6 (03:09→23:14)
[2019-09-30] MEDS: BACLOFEN 20 MG TABLET GT SCH ×3 (05:13→21:12)
[2019-09-30] MEDS: BACLOFEN 10 MG TABLET GT SCH ×3 (05:13→21:12)
[2019-09-30] MEDS: MIDODRINE HCL 10 MG TABLET GT SCH ×3 (05:15→21:13)
[2019-09-30] MEDS: OMEPRAZOLE 20 MG CAPSULE.DR GT SCH (05:15)
[2019-09-30] MEDS: METOCLOPRAMIDE HCL 5 MG TABLET GT SCH ×3 (05:15→21:13)
--- NOTE | 2019-09-30 07:34 | NUR ---
PT REC'D ON HT-50 VENT TOLERATING CURRENT VENT SETTINGS WELL, NO DISTRESS/SOB NOTED AT THIS TIME. PT VENT'D VIA TRACHEOSTOMY, TUBE IN PLACE PATENT AND SECURE WITH TRACH TIE. INH NEB TX'S TO BE GIVEN PER MD ORDER AND SXN'ING TO BE DONE NEEDED. VENT ALARMS AUDIBLE, CHECKED AND RESET. BVM AND BACK-UP TRACH AT BEDSIDE.
[2019-09-30] MEDS: ACIDOPHILUS/BULGARICUS CHEW TAB GT SCH ×2 (08:00→21:11)
[2019-09-30] MEDS: TRIAMCINOLONE ACET 0.1% CREAM 15 GM TUBE TP SCH ×2 (08:00→21:13)
[2019-09-30] MEDS: PHENYTOIN 100 MG/4 ML UDC GT SCH ×2 (08:00→21:11)
[2019-09-30] MEDS: COD LIVER OIL/ZINC OXIDE OINT 113 GM TUBE TOP SCH ×2 (08:00→21:14)
[2019-09-30] MEDS: DESMOPRESSIN 0.1 MG TABLET GT SCH (08:00)
[2019-09-30] MEDS: levETIRAcetam 500 MG/5 ML LIQUID UDC GT SCH ×2 (08:00→21:14)
[2019-09-30] MEDS: POTASSIUM CHLORIDE 40 MEQ/30 ML LIQUID UDC GT SCH (08:00)
[2019-09-30] MEDS: FUROSEMIDE 20 MG/2 ML GT SCH (08:00)
[2019-09-30] MEDS: NEOMY/BACITRA/POLYMYXIN B OINT UD PACKET TP SCH ×2 (08:01→21:13)
[2019-09-30] MEDS: NYSTATIN CREAM 30 GM TUBE TP SCH ×2 (08:01→21:13)
[2019-09-30] MEDS: HYDROGEN PEROXIDE 3% 118 ML BOTTLE TP SCH ×2 (09:04→21:08)
[2019-09-30 10:41] VITALS: BP 128/74
[2019-09-30] MEDS: VITAL AF 1.2 1,000 ML LIQUID GT SCH (18:06)
--- NOTE | 2019-09-30 19:40 | NUR ---
PT RECEIVED ON CONTINUOUS VENT , TRACH TUBE IN PLACE AND SECURED WITH TRACH TIE. AMBU BAG AND BACK-UP TRACH AT BEDSIDE. TRACH CARE DONE. TOLERATING CURRENT VENT SETTINGS WELL, NO DISTRESS NOTED AT THIS TIME. IN LINE TX GIVEN WITH UD ALBUTEROL+UD ATROVENT PER MD ORDER . SUCTION PRN. VENT ALARMS AUDIBLE, CHECKED AND RESET. WILL CONTINUE TO MONITOR.
[2019-09-30 20:46] VITALS: BP 104/65
[2019-09-30] MEDS: FOLIC ACID 1 MG TABLET GT SCH (21:11)
[2019-09-30] MEDS: CHOLECALCIFEROL 1,000 UNIT TABLET GT SCH (21:14)
[2019-09-30] MEDS: THIAMINE HCL 100 MG TABLET GT SCH (21:14)
[2019-10-01] MEDS: IPRATROPIUM BROMIDE 0.5 MG/2.5 ML NEBU NEB SCH ×6 (03:07→22:40)
[2019-10-01] MEDS: ALBUTEROL SULFATE 2.5 MG/3 ML NEBU NEB SCH ×6 (03:07→22:40)
[2019-10-01] MEDS: BACLOFEN 10 MG TABLET GT SCH ×3 (05:27→21:24)
[2019-10-01] MEDS: METOCLOPRAMIDE HCL 5 MG TABLET GT SCH ×3 (05:27→21:25)
[2019-10-01] MEDS: OMEPRAZOLE 20 MG CAPSULE.DR GT SCH (05:27)
[2019-10-01] MEDS: MIDODRINE HCL 10 MG TABLET GT SCH ×3 (05:27→21:25)
[2019-10-01] MEDS: BACLOFEN 20 MG TABLET GT SCH ×3 (05:27→21:24)
[2019-10-01 08:00] VITALS: BP 109/63
[2019-10-01] MEDS: DESMOPRESSIN 0.1 MG TABLET GT SCH (09:03)
[2019-10-01] MEDS: ACIDOPHILUS/BULGARICUS CHEW TAB GT SCH ×2 (09:05→20:39)
[2019-10-01] MEDS: PHENYTOIN 100 MG/4 ML UDC GT SCH ×2 (09:05→20:39)
[2019-10-01] MEDS: levETIRAcetam 500 MG/5 ML LIQUID UDC GT SCH ×2 (09:06→20:39)
[2019-10-01] MEDS: NEOMY/BACITRA/POLYMYXIN B OINT UD PACKET TP SCH ×2 (09:07→20:39)
[2019-10-01] MEDS: TRIAMCINOLONE ACET 0.1% CREAM 15 GM TUBE TP SCH ×2 (09:07→20:39)
[2019-10-01] MEDS: POTASSIUM CHLORIDE 40 MEQ/30 ML LIQUID UDC GT SCH (09:07)
[2019-10-01] MEDS: NYSTATIN CREAM 30 GM TUBE TP SCH ×2 (09:07→20:39)
[2019-10-01] MEDS: COD LIVER OIL/ZINC OXIDE OINT 113 GM TUBE TOP SCH ×2 (09:07→20:39)
[2019-10-01] MEDS: FUROSEMIDE 20 MG/2 ML GT SCH (09:09)
[2019-10-01] MEDS: HYDROGEN PEROXIDE 3% 118 ML BOTTLE TP SCH ×2 (09:25→21:24)
[2019-10-01] MEDS: VITAL AF 1.2 1,000 ML LIQUID GT SCH (18:01)
[2019-10-01 20:37] VITALS: BP 124/74
[2019-10-01] MEDS: CHOLECALCIFEROL 1,000 UNIT TABLET GT SCH (20:39)
[2019-10-01] MEDS: THIAMINE HCL 100 MG TABLET GT SCH (20:39)
[2019-10-01] MEDS: FOLIC ACID 1 MG TABLET GT SCH (20:39)
[2019-10-02] MEDS: IPRATROPIUM BROMIDE 0.5 MG/2.5 ML NEBU NEB SCH ×6 (02:40→23:18)
[2019-10-02] MEDS: ALBUTEROL SULFATE 2.5 MG/3 ML NEBU NEB SCH ×6 (02:40→23:18)
[2019-10-02] MEDS: BACLOFEN 20 MG TABLET GT SCH ×3 (05:10→21:14)
[2019-10-02] MEDS: MIDODRINE HCL 10 MG TABLET GT SCH ×3 (05:10→21:15)
[2019-10-02] MEDS: BACLOFEN 10 MG TABLET GT SCH ×3 (05:10→21:14)
[2019-10-02] MEDS: METOCLOPRAMIDE HCL 5 MG TABLET GT SCH ×3 (05:11→21:15)
[2019-10-02] MEDS: OMEPRAZOLE 20 MG CAPSULE.DR GT SCH (05:11)
[2019-10-02] MEDS: HYDROGEN PEROXIDE 3% 118 ML BOTTLE TP SCH ×2 (09:00→21:38)
[2019-10-02] MEDS: levETIRAcetam 500 MG/5 ML LIQUID UDC GT SCH ×2 (09:10→20:38)
[2019-10-02] MEDS: PHENYTOIN 100 MG/4 ML UDC GT SCH ×2 (09:10→20:38)
[2019-10-02] MEDS: DESMOPRESSIN 0.1 MG TABLET GT SCH (09:10)
[2019-10-02] MEDS: ACIDOPHILUS/BULGARICUS CHEW TAB GT SCH ×2 (09:10→20:38)
[2019-10-02] MEDS: POTASSIUM CHLORIDE 40 MEQ/30 ML LIQUID UDC GT SCH (09:11)
[2019-10-02] MEDS: FUROSEMIDE 20 MG/2 ML GT SCH (09:11)
[2019-10-02] MEDS: TRIAMCINOLONE ACET 0.1% CREAM 15 GM TUBE TP SCH ×2 (09:12→20:38)
[2019-10-02] MEDS: NYSTATIN CREAM 30 GM TUBE TP SCH ×2 (09:12→20:38)
[2019-10-02] MEDS: COD LIVER OIL/ZINC OXIDE OINT 113 GM TUBE TOP SCH ×2 (09:12→20:38)
[2019-10-02] MEDS: NEOMY/BACITRA/POLYMYXIN B OINT UD PACKET TP SCH ×2 (09:12→20:38)
[2019-10-02 11:38] VITALS: BP 101/60
[2019-10-02] MEDS: VITAL AF 1.2 1,000 ML LIQUID GT SCH (17:53)
[2019-10-02] MEDS: FOLIC ACID 1 MG TABLET GT SCH (20:38)
[2019-10-02] MEDS: THIAMINE HCL 100 MG TABLET GT SCH (20:38)
[2019-10-02] MEDS: CHOLECALCIFEROL 1,000 UNIT TABLET GT SCH (20:38)
[2019-10-02 20:59] VITALS: BP 109/64
[2019-10-03] MEDS: ALBUTEROL SULFATE 2.5 MG/3 ML NEBU NEB SCH ×6 (03:45→23:20)
[2019-10-03] MEDS: IPRATROPIUM BROMIDE 0.5 MG/2.5 ML NEBU NEB SCH ×6 (03:45→23:20)
[2019-10-03] MEDS: BACLOFEN 20 MG TABLET GT SCH ×3 (05:05→21:58)
[2019-10-03] MEDS: BACLOFEN 10 MG TABLET GT SCH ×3 (05:05→21:58)
[2019-10-03] MEDS: MIDODRINE HCL 10 MG TABLET GT SCH ×4 (05:05→22:00)
[2019-10-03] MEDS: METOCLOPRAMIDE HCL 5 MG TABLET GT SCH ×3 (05:05→21:58)
[2019-10-03] MEDS: OMEPRAZOLE 20 MG CAPSULE.DR GT SCH (05:05)
[2019-10-03 08:30] VITALS: BP 120/69
[2019-10-03] MEDS: PHENYTOIN 100 MG/4 ML UDC GT SCH ×2 (08:44→20:30)
[2019-10-03] MEDS: TRIAMCINOLONE ACET 0.1% CREAM 15 GM TUBE TP SCH ×2 (08:44→20:31)
[2019-10-03] MEDS: ACIDOPHILUS/BULGARICUS CHEW TAB GT SCH ×2 (08:44→20:30)
[2019-10-03] MEDS: levETIRAcetam 500 MG/5 ML LIQUID UDC GT SCH ×2 (08:44→20:30)
[2019-10-03] MEDS: NEOMY/BACITRA/POLYMYXIN B OINT UD PACKET TP SCH ×2 (08:44→20:31)
[2019-10-03] MEDS: COD LIVER OIL/ZINC OXIDE OINT 113 GM TUBE TOP SCH ×2 (08:44→20:31)
[2019-10-03] MEDS: DESMOPRESSIN 0.1 MG TABLET GT SCH (08:44)
[2019-10-03] MEDS: NYSTATIN CREAM 30 GM TUBE TP SCH ×2 (08:44→20:31)
[2019-10-03] MEDS: FUROSEMIDE 20 MG/2 ML GT SCH (08:44)
[2019-10-03] MEDS: POTASSIUM CHLORIDE 40 MEQ/30 ML LIQUID UDC GT SCH (08:44)
[2019-10-03] MEDS: HYDROGEN PEROXIDE 3% 118 ML BOTTLE TP SCH ×2 (09:00→20:31)
--- NOTE | 2019-10-03 19:40 | NUR ---
PT RECEIVED ON CONTINUOUS VENT, TRACH TUBE IN PLACE AND SECURED WITH TRACH TIE. AMBU BAG AND BACK-UP TRACH AT BEDSIDE. IN LINE TX GIVEN WITH UD ALBUTEROL+ UD ATROVENT ORDERED. SUCTION PRN. VENT CHECKED, ALARMS AUDIBLE, CHECKED AND RESET. TRACH CARE DONE. NO DISTRESS NOTED AT THIS TIME. WILL CONTINUE TO MONITOR.
[2019-10-03 20:10] VITALS: BP 90/46
[2019-10-03] MEDS: FOLIC ACID 1 MG TABLET GT SCH (20:30)
[2019-10-03] MEDS: CHOLECALCIFEROL 1,000 UNIT TABLET GT SCH (20:30)
[2019-10-03] MEDS: THIAMINE HCL 100 MG TABLET GT SCH (20:30)
[2019-10-04 01:26] VITALS: BP 93/55
[2019-10-04 02:11] VITALS: BP 101/57
[2019-10-04] MEDS: IPRATROPIUM BROMIDE 0.5 MG/2.5 ML NEBU NEB SCH ×6 (03:10→23:17)
[2019-10-04] MEDS: ALBUTEROL SULFATE 2.5 MG/3 ML NEBU NEB SCH ×6 (03:10→23:17)
[2019-10-04] MEDS: BACLOFEN 20 MG TABLET GT SCH ×3 (05:22→21:20)
[2019-10-04] MEDS: BACLOFEN 10 MG TABLET GT SCH ×3 (05:22→21:20)
[2019-10-04] MEDS: MIDODRINE HCL 10 MG TABLET GT SCH ×3 (05:23→21:21)
[2019-10-04] MEDS: OMEPRAZOLE 20 MG CAPSULE.DR GT SCH (05:23)
[2019-10-04] MEDS: METOCLOPRAMIDE HCL 5 MG TABLET GT SCH ×3 (05:23→21:21)
[2019-10-04] MEDS: levETIRAcetam 500 MG/5 ML LIQUID UDC GT SCH ×2 (08:20→21:18)
[2019-10-04] MEDS: TRIAMCINOLONE ACET 0.1% CREAM 15 GM TUBE TP SCH ×2 (08:20→21:20)
[2019-10-04] MEDS: PHENYTOIN 100 MG/4 ML UDC GT SCH ×2 (08:20→21:14)
[2019-10-04] MEDS: ACIDOPHILUS/BULGARICUS CHEW TAB GT SCH ×2 (08:20→21:16)
[2019-10-04] MEDS: NYSTATIN CREAM 30 GM TUBE TP SCH ×2 (08:20→21:20)
[2019-10-04] MEDS: NEOMY/BACITRA/POLYMYXIN B OINT UD PACKET TP SCH ×2 (08:20→21:20)
[2019-10-04] MEDS: FUROSEMIDE 20 MG/2 ML GT SCH (08:20)
[2019-10-04] MEDS: DESMOPRESSIN 0.1 MG TABLET GT SCH (08:20)
[2019-10-04] MEDS: POTASSIUM CHLORIDE 40 MEQ/30 ML LIQUID UDC GT SCH (08:20)
[2019-10-04] MEDS: COD LIVER OIL/ZINC OXIDE OINT 113 GM TUBE TOP SCH ×2 (08:20→21:19)
[2019-10-04] MEDS: HYDROGEN PEROXIDE 3% 118 ML BOTTLE TP SCH ×2 (08:45→21:05)
[2019-10-04 09:22] VITALS: BP 123/68
--- NOTE | 2019-10-04 15:29 | NUR ---
Pharmacy Update from Today's 10/04/19 IDT Meeting VS: Temp 97.7 BP 123/68 HR 67 LABS: (from 09/27/19) Wbc 8.0 H/H 11/31.1 Plt 246 Na 141 K 3.8 Cl 108 CO2 24 BUN/Scr 20/0.5 BS 87 Ca 8.1 Phos 3.9 Mg 1.9 MEDICATION USE REVIEWED: > Pt not on any anti-psych medications > Pt on Keppra 1000mg q12h since 04/10/19; CrCl >100ml/min, renal function ok for current dose. No seizure episodes noted since transfer. > Pt on Phenytoin 200mg q12hr Since 07/18/19. Last level per Rx rec on 07/27/19 and resulted within range at 9.9, corrected 13.0 (range 10-20). No seizures noted > Ativan 1mg q6hprn seizures on board. None used since admit. No seizures noted > Pt on DDAVP 0.05mg GT daily since 06/22/19 for diabetes insipidus > Continues on metoclopramide 5mg q8h for abdominal distension, h/o gastroparesis, ok per renal function > Continues omeprazole 20mg daily for GI prophylaxis, ok per renal function PRN MED USAGE: (Aug) Ativan for seizures used x0 Artificial Tears used x0 Bisacodyl Supp used x1 MOM used x0 OTHER ORDERS NOTED: > NA Pt was reviewed and discussed in depth with no medication concerns noted per staff. No further recs at this time as pt remains stable on current regimen. Will continue follow
--- NOTE | 2019-10-04 15:35 | NUR ---
INTERDISCIPLINARY PLAN OF CARE CONFERENCE was held today. Patient's mother was unable to attend the meeting. Dr. Wagner and the Interdisciplinary Team reviewed the current plan of care in detail. RN reported on patient's medical condition. See RN IDT conference notes. No major changes in condition were reported. See also all other disciplines IDT notes and physician's progress notes for additional details.
[2019-10-04 20:00] VITALS: BP 110/44
[2019-10-04] MEDS: FOLIC ACID 1 MG TABLET GT SCH (21:16)
[2019-10-04] MEDS: CHOLECALCIFEROL 1,000 UNIT TABLET GT SCH (21:19)
[2019-10-04] MEDS: THIAMINE HCL 100 MG TABLET GT SCH (21:19)
[2019-10-05] MEDS: ALBUTEROL SULFATE 2.5 MG/3 ML NEBU NEB SCH ×6 (02:55→22:36)
[2019-10-05] MEDS: IPRATROPIUM BROMIDE 0.5 MG/2.5 ML NEBU NEB SCH ×6 (02:55→22:35)
[2019-10-05] MEDS: BACLOFEN 10 MG TABLET GT SCH ×3 (06:03→21:36)
[2019-10-05] MEDS: OMEPRAZOLE 20 MG CAPSULE.DR GT SCH (06:04)
[2019-10-05] MEDS: MIDODRINE HCL 10 MG TABLET GT SCH ×3 (06:04→21:36)
[2019-10-05] MEDS: METOCLOPRAMIDE HCL 5 MG TABLET GT SCH ×3 (06:04→21:36)
[2019-10-05] MEDS: BACLOFEN 20 MG TABLET GT SCH ×3 (06:04→21:36)
[2019-10-05 08:00] VITALS: BP 110/64
[2019-10-05] MEDS: PHENYTOIN 100 MG/4 ML UDC GT SCH ×2 (09:05→21:33)
[2019-10-05] MEDS: DESMOPRESSIN 0.1 MG TABLET GT SCH (09:05)
[2019-10-05] MEDS: ACIDOPHILUS/BULGARICUS CHEW TAB GT SCH ×2 (09:06→21:33)
[2019-10-05] MEDS: levETIRAcetam 500 MG/5 ML LIQUID UDC GT SCH ×2 (09:06→21:34)
[2019-10-05] MEDS: FUROSEMIDE 20 MG/2 ML GT SCH (09:07)
[2019-10-05] MEDS: TRIAMCINOLONE ACET 0.1% CREAM 15 GM TUBE TP SCH ×2 (09:07→21:35)
[2019-10-05] MEDS: POTASSIUM CHLORIDE 40 MEQ/30 ML LIQUID UDC GT SCH (09:07)
[2019-10-05] MEDS: NYSTATIN CREAM 30 GM TUBE TP SCH ×2 (09:07→21:35)
[2019-10-05] MEDS: COD LIVER OIL/ZINC OXIDE OINT 113 GM TUBE TOP SCH ×2 (09:07→21:35)
[2019-10-05] MEDS: HYDROGEN PEROXIDE 3% 118 ML BOTTLE TP SCH ×2 (09:20→19:15)
[2019-10-05 20:00] VITALS: BP 125/77
[2019-10-05] MEDS: FOLIC ACID 1 MG TABLET GT SCH (21:33)
[2019-10-05] MEDS: THIAMINE HCL 100 MG TABLET GT SCH (21:34)
[2019-10-05] MEDS: CHOLECALCIFEROL 1,000 UNIT TABLET GT SCH (21:35)
[2019-10-06] MEDS: ALBUTEROL SULFATE 2.5 MG/3 ML NEBU NEB SCH ×6 (02:35→22:47)
[2019-10-06] MEDS: IPRATROPIUM BROMIDE 0.5 MG/2.5 ML NEBU NEB SCH ×6 (02:35→22:47)
[2019-10-06] MEDS: BACLOFEN 10 MG TABLET GT SCH ×3 (05:50→21:33)
[2019-10-06] MEDS: METOCLOPRAMIDE HCL 5 MG TABLET GT SCH ×3 (05:51→21:34)
[2019-10-06] MEDS: BACLOFEN 20 MG TABLET GT SCH ×3 (05:51→21:33)
[2019-10-06] MEDS: MIDODRINE HCL 10 MG TABLET GT SCH ×3 (05:51→21:34)
[2019-10-06] MEDS: OMEPRAZOLE 20 MG CAPSULE.DR GT SCH (05:51)
[2019-10-06 08:00] VITALS: BP 120/64
[2019-10-06] MEDS: TRIAMCINOLONE ACET 0.1% CREAM 15 GM TUBE TP SCH ×2 (08:10→21:33)
[2019-10-06] MEDS: PHENYTOIN 100 MG/4 ML UDC GT SCH ×2 (08:10→21:29)
[2019-10-06] MEDS: COD LIVER OIL/ZINC OXIDE OINT 113 GM TUBE TOP SCH ×2 (08:10→21:33)
[2019-10-06] MEDS: FUROSEMIDE 20 MG/2 ML GT SCH (08:10)
[2019-10-06] MEDS: levETIRAcetam 500 MG/5 ML LIQUID UDC GT SCH ×2 (08:10→21:31)
[2019-10-06] MEDS: DESMOPRESSIN 0.1 MG TABLET GT SCH (08:10)
[2019-10-06] MEDS: NYSTATIN CREAM 30 GM TUBE TP SCH ×2 (08:10→21:33)
[2019-10-06] MEDS: POTASSIUM CHLORIDE 40 MEQ/30 ML LIQUID UDC GT SCH (08:10)
[2019-10-06] MEDS: ACIDOPHILUS/BULGARICUS CHEW TAB GT SCH ×2 (08:10→21:30)
[2019-10-06] MEDS: HYDROGEN PEROXIDE 3% 118 ML BOTTLE TP SCH ×2 (09:00→21:29)
[2019-10-06 20:00] VITALS: BP 129/78
[2019-10-06] MEDS: FOLIC ACID 1 MG TABLET GT SCH (21:30)
[2019-10-06] MEDS: CHOLECALCIFEROL 1,000 UNIT TABLET GT SCH (21:33)
[2019-10-06] MEDS: THIAMINE HCL 100 MG TABLET GT SCH (21:33)
[2019-10-07] MEDS: IPRATROPIUM BROMIDE 0.5 MG/2.5 ML NEBU NEB SCH ×6 (02:40→23:10)
[2019-10-07] MEDS: ALBUTEROL SULFATE 2.5 MG/3 ML NEBU NEB SCH ×6 (02:40→23:10)
[2019-10-07] MEDS: VITAL AF 1.2 1,000 ML LIQUID GT SCH (04:52)
[2019-10-07] MEDS: BACLOFEN 10 MG TABLET GT SCH ×3 (06:07→21:10)
[2019-10-07] MEDS: MIDODRINE HCL 10 MG TABLET GT SCH ×3 (06:07→21:13)
[2019-10-07] MEDS: BACLOFEN 20 MG TABLET GT SCH ×3 (06:07→21:10)
[2019-10-07] MEDS: OMEPRAZOLE 20 MG CAPSULE.DR GT SCH (06:08)
[2019-10-07] MEDS: METOCLOPRAMIDE HCL 5 MG TABLET GT SCH ×3 (06:08→21:13)
[2019-10-07 08:01] VITALS: BP 131/75
[2019-10-07] MEDS: DESMOPRESSIN 0.1 MG TABLET GT SCH (08:18)
[2019-10-07] MEDS: PHENYTOIN 100 MG/4 ML UDC GT SCH ×2 (08:19→21:08)
[2019-10-07] MEDS: levETIRAcetam 500 MG/5 ML LIQUID UDC GT SCH ×2 (08:22→21:09)
[2019-10-07] MEDS: ACIDOPHILUS/BULGARICUS CHEW TAB GT SCH ×2 (08:22→21:08)
[2019-10-07] MEDS: POTASSIUM CHLORIDE 40 MEQ/30 ML LIQUID UDC GT SCH (08:23)
[2019-10-07] MEDS: COD LIVER OIL/ZINC OXIDE OINT 113 GM TUBE TOP SCH ×2 (08:23→21:09)
[2019-10-07] MEDS: FUROSEMIDE 20 MG/2 ML GT SCH (08:23)
[2019-10-07] MEDS: TRIAMCINOLONE ACET 0.1% CREAM 15 GM TUBE TP SCH ×2 (08:24→21:09)
[2019-10-07] MEDS: NYSTATIN CREAM 30 GM TUBE TP SCH ×2 (08:25→21:09)
[2019-10-07] MEDS: HYDROGEN PEROXIDE 3% 118 ML BOTTLE TP SCH ×2 (09:00→21:02)
[2019-10-07] MEDS: FOLIC ACID 1 MG TABLET GT SCH (21:08)
[2019-10-07] MEDS: THIAMINE HCL 100 MG TABLET GT SCH (21:09)
[2019-10-07] MEDS: CHOLECALCIFEROL 1,000 UNIT TABLET GT SCH (21:09)
[2019-10-07 21:26] VITALS: BP 101/65
[2019-10-08] MEDS: IPRATROPIUM BROMIDE 0.5 MG/2.5 ML NEBU NEB SCH ×6 (03:13→22:40)
[2019-10-08] MEDS: ALBUTEROL SULFATE 2.5 MG/3 ML NEBU NEB SCH ×6 (03:13→22:40)
[2019-10-08] MEDS: VITAL AF 1.2 1,000 ML LIQUID GT SCH (04:22)
[2019-10-08] MEDS: METOCLOPRAMIDE HCL 5 MG TABLET GT SCH ×3 (05:50→21:52)
[2019-10-08] MEDS: BACLOFEN 10 MG TABLET GT SCH ×3 (05:50→21:51)
[2019-10-08] MEDS: OMEPRAZOLE 20 MG CAPSULE.DR GT SCH (05:50)
[2019-10-08] MEDS: MIDODRINE HCL 10 MG TABLET GT SCH ×3 (05:50→21:52)
[2019-10-08] MEDS: BACLOFEN 20 MG TABLET GT SCH ×3 (05:50→21:51)
[2019-10-08 08:00] VITALS: BP 122/76
[2019-10-08] MEDS: HYDROGEN PEROXIDE 3% 118 ML BOTTLE TP SCH ×2 (08:29→18:55)
[2019-10-08] MEDS: PHENYTOIN 100 MG/4 ML UDC GT SCH ×2 (08:41→20:43)
[2019-10-08] MEDS: DESMOPRESSIN 0.1 MG TABLET GT SCH (08:41)
[2019-10-08] MEDS: levETIRAcetam 500 MG/5 ML LIQUID UDC GT SCH ×2 (08:42→20:43)
[2019-10-08] MEDS: ACIDOPHILUS/BULGARICUS CHEW TAB GT SCH ×2 (08:42→20:43)
[2019-10-08] MEDS: POTASSIUM CHLORIDE 40 MEQ/30 ML LIQUID UDC GT SCH (08:55)
[2019-10-08] MEDS: FUROSEMIDE 20 MG/2 ML GT SCH (08:55)
[2019-10-08] MEDS: COD LIVER OIL/ZINC OXIDE OINT 113 GM TUBE TOP SCH ×2 (08:56→20:43)
[2019-10-08] MEDS: TRIAMCINOLONE ACET 0.1% CREAM 15 GM TUBE TP SCH ×2 (08:56→20:46)
[2019-10-08] MEDS: NYSTATIN CREAM 30 GM TUBE TP SCH ×2 (08:56→20:46)
[2019-10-08] MEDS: THIAMINE HCL 100 MG TABLET GT SCH (20:43)
[2019-10-08] MEDS: FOLIC ACID 1 MG TABLET GT SCH (20:43)
[2019-10-08] MEDS: CHOLECALCIFEROL 1,000 UNIT TABLET GT SCH (20:43)
[2019-10-08 21:29] VITALS: BP 109/64
[2019-10-09] MEDS: IPRATROPIUM BROMIDE 0.5 MG/2.5 ML NEBU NEB SCH ×6 (02:40→23:31)
[2019-10-09] MEDS: ALBUTEROL SULFATE 2.5 MG/3 ML NEBU NEB SCH ×6 (02:40→23:31)
[2019-10-09] MEDS: BACLOFEN 10 MG TABLET GT SCH ×3 (05:49→21:24)
[2019-10-09] MEDS: BACLOFEN 20 MG TABLET GT SCH ×3 (05:49→21:24)
[2019-10-09] MEDS: METOCLOPRAMIDE HCL 5 MG TABLET GT SCH ×3 (05:50→21:25)
[2019-10-09] MEDS: MIDODRINE HCL 10 MG TABLET GT SCH ×3 (05:50→21:25)
[2019-10-09] MEDS: OMEPRAZOLE 20 MG CAPSULE.DR GT SCH (05:50)
[2019-10-09] MEDS: VITAL AF 1.2 1,000 ML LIQUID GT SCH ×2 (05:57→22:30)
[2019-10-09 08:00] VITALS: BP 139/84
[2019-10-09] MEDS: PHENYTOIN 100 MG/4 ML UDC GT SCH ×2 (08:42→21:22)
[2019-10-09] MEDS: DESMOPRESSIN 0.1 MG TABLET GT SCH (08:42)
[2019-10-09] MEDS: levETIRAcetam 500 MG/5 ML LIQUID UDC GT SCH ×2 (08:45→21:22)
[2019-10-09] MEDS: ACIDOPHILUS/BULGARICUS CHEW TAB GT SCH ×2 (08:45→21:22)
[2019-10-09] MEDS: FUROSEMIDE 20 MG/2 ML GT SCH (08:46)
[2019-10-09] MEDS: POTASSIUM CHLORIDE 40 MEQ/30 ML LIQUID UDC GT SCH (08:46)
[2019-10-09] MEDS: TRIAMCINOLONE ACET 0.1% CREAM 15 GM TUBE TP SCH ×2 (08:47→21:24)
[2019-10-09] MEDS: NYSTATIN CREAM 30 GM TUBE TP SCH ×2 (08:47→21:24)
[2019-10-09] MEDS: COD LIVER OIL/ZINC OXIDE OINT 113 GM TUBE TOP SCH ×2 (08:47→21:24)
[2019-10-09] MEDS: HYDROGEN PEROXIDE 3% 118 ML BOTTLE TP SCH ×2 (09:00→21:53)
[2019-10-09] MEDS: THIAMINE HCL 100 MG TABLET GT SCH (21:22)
[2019-10-09] MEDS: FOLIC ACID 1 MG TABLET GT SCH (21:22)
[2019-10-09] MEDS: CHOLECALCIFEROL 1,000 UNIT TABLET GT SCH (21:23)
[2019-10-09 22:04] VITALS: BP 136/80
[2019-10-10] MEDS: IPRATROPIUM BROMIDE 0.5 MG/2.5 ML NEBU NEB SCH ×6 (03:30→22:42)
[2019-10-10] MEDS: ALBUTEROL SULFATE 2.5 MG/3 ML NEBU NEB SCH ×6 (03:30→22:42)
[2019-10-10] MEDS: METOCLOPRAMIDE HCL 5 MG TABLET GT SCH ×3 (05:27→21:25)
[2019-10-10] MEDS: OMEPRAZOLE 20 MG CAPSULE.DR GT SCH (05:27)
[2019-10-10] MEDS: BACLOFEN 10 MG TABLET GT SCH ×3 (05:27→21:24)
[2019-10-10] MEDS: BACLOFEN 20 MG TABLET GT SCH ×3 (05:27→21:24)
[2019-10-10] MEDS: MIDODRINE HCL 10 MG TABLET GT SCH ×3 (05:27→21:24)
[2019-10-10 08:00] VITALS: BP 101/66
[2019-10-10] MEDS: ACIDOPHILUS/BULGARICUS CHEW TAB GT SCH ×2 (08:34→21:23)
[2019-10-10] MEDS: NYSTATIN CREAM 30 GM TUBE TP SCH (08:34)
[2019-10-10] MEDS: TRIAMCINOLONE ACET 0.1% CREAM 15 GM TUBE TP SCH ×2 (08:34→21:24)
[2019-10-10] MEDS: levETIRAcetam 500 MG/5 ML LIQUID UDC GT SCH ×2 (08:34→21:23)
[2019-10-10] MEDS: POTASSIUM CHLORIDE 40 MEQ/30 ML LIQUID UDC GT SCH (08:34)
[2019-10-10] MEDS: PHENYTOIN 100 MG/4 ML UDC GT SCH ×2 (08:34→21:23)
[2019-10-10] MEDS: COD LIVER OIL/ZINC OXIDE OINT 113 GM TUBE TOP SCH ×2 (08:34→21:24)
[2019-10-10] MEDS: DESMOPRESSIN 0.1 MG TABLET GT SCH (08:34)
[2019-10-10] MEDS: FUROSEMIDE 20 MG/2 ML GT SCH (08:34)
[2019-10-10] MEDS: HYDROGEN PEROXIDE 3% 118 ML BOTTLE TP SCH ×2 (09:00→21:28)
[2019-10-10 21:20] VITALS: BP 101/53
[2019-10-10] MEDS: CHOLECALCIFEROL 1,000 UNIT TABLET GT SCH (21:23)
[2019-10-10] MEDS: THIAMINE HCL 100 MG TABLET GT SCH (21:23)
[2019-10-10] MEDS: FOLIC ACID 1 MG TABLET GT SCH (21:23)
[2019-10-11] MEDS: ALBUTEROL SULFATE 2.5 MG/3 ML NEBU NEB SCH ×6 (02:40→23:16)
[2019-10-11] MEDS: IPRATROPIUM BROMIDE 0.5 MG/2.5 ML NEBU NEB SCH ×6 (02:40→23:16)
[2019-10-11] MEDS: OMEPRAZOLE 20 MG CAPSULE.DR GT SCH (05:01)
[2019-10-11] MEDS: MIDODRINE HCL 10 MG TABLET GT SCH ×3 (05:01→21:50)
[2019-10-11] MEDS: BACLOFEN 20 MG TABLET GT SCH ×3 (05:01→21:49)
[2019-10-11] MEDS: METOCLOPRAMIDE HCL 5 MG TABLET GT SCH ×3 (05:01→21:50)
[2019-10-11] MEDS: BACLOFEN 10 MG TABLET GT SCH ×3 (06:07→21:49)
[2019-10-11 06:40] LABS: BASOPHILS # (AUTO) 0.1 K/uL (0.0-8.0); BASOPHILS % (AUTO) 1.2 % (0.0-2.0); EOSINOPHILS # (AUTO) 0.4 K/uL (0.0-0.7); EOSINOPHILS % (AUTO) 6.2 % (0.0-7.0); HEMATOCRIT 31.6 % (31.2-41.9); HEMOGLOBIN 10.9 g/dL (10.9-14.3); LYMPHOCYTES # (AUTO) 2.3 K/uL (20.0-40.0); LYMPHOCYTES % (AUTO) 32.9 % (20.5-51.5); MEAN CORPUSCULAR HEMOGLOBIN 32.2 uug (24.7-32.8); MEAN CORPUSCULAR HGB CONC 35 g/dL (32.3-35.6); MONOCYTES # (AUTO) 0.5 K/uL (2.0-10.0); MONOCYTES % (AUTO) 6.4 % (0.0-11.0); NEUTROPHILS # (AUTO) 3.8 K/uL (1.8-8.9); NEUTROPHILS % (AUTO) 53.3 % (38.5-71.5); PLATELET COUNT (AUTO) 404 K/uL (179-408); WHITE BLOOD COUNT (AUTO) 7.1 K/uL (3.8-11.8)
[2019-10-11 06:54] LABS: CARBON DIOXIDE 23 mmol/L (21-32); CHLORIDE 109 mmol/L (98-107); CREATININE 0.5 mg/dL (0.6-1.3); GLUCOSE 94 mg/dL (74-106); MAGNESIUM 1.9 mg/dL (1.8-2.4); PHOSPHOROUS 3.9 mg/dL (2.5-4.9); POTASSIUM 3.6 mmol/L (3.5-5.1); UREA NITROGEN, BLOOD 20 mg/dL (7-18)
[2019-10-11 08:00] VITALS: BP 116/71
[2019-10-11] MEDS: HYDROGEN PEROXIDE 3% 118 ML BOTTLE TP SCH ×2 (08:16→21:00)
[2019-10-11] MEDS: TRIAMCINOLONE ACET 0.1% CREAM 15 GM TUBE TP SCH ×2 (09:00→20:27)
[2019-10-11] MEDS: DESMOPRESSIN 0.1 MG TABLET GT SCH (09:03)
[2019-10-11] MEDS: ACIDOPHILUS/BULGARICUS CHEW TAB GT SCH ×2 (09:04→20:26)
[2019-10-11] MEDS: PHENYTOIN 100 MG/4 ML UDC GT SCH ×2 (09:04→20:26)
[2019-10-11] MEDS: levETIRAcetam 500 MG/5 ML LIQUID UDC GT SCH ×2 (09:05→20:26)
[2019-10-11] MEDS: FUROSEMIDE 20 MG/2 ML GT SCH (09:06)
[2019-10-11] MEDS: POTASSIUM CHLORIDE 40 MEQ/30 ML LIQUID UDC GT SCH (09:07)
[2019-10-11] MEDS: COD LIVER OIL/ZINC OXIDE OINT 113 GM TUBE TOP SCH ×2 (09:07→20:27)
--- NOTE | 2019-10-11 14:06 | NUR ---
This and [employer] Global [employer] Executive Wade Vargas provided an update to patient's family personnel representative Mahamed via email that per advisement from [facility], [facility], and CDC, visitation restrictions will continue to remain in place for all terminal operator care facilities in order to protect the health and safety of residents and staff. Therefore [facility] will continue to restrict all visitations, until further notice.
[2019-10-11] MEDS: VITAL AF 1.2 1,000 ML LIQUID GT SCH (18:44)
[2019-10-11] MEDS: FOLIC ACID 1 MG TABLET GT SCH (20:26)
[2019-10-11] MEDS: CHOLECALCIFEROL 1,000 UNIT TABLET GT SCH (20:27)
[2019-10-11] MEDS: THIAMINE HCL 100 MG TABLET GT SCH (20:27)
[2019-10-11 21:31] VITALS: BP 106/70
--- NOTE | 2019-10-11 22:31 | NUR ---
Trached resident was endorsed on mechanical ventilation with ordered vent settings. No signs of respiratory distress noted at this time. Inline treatments administered and tolerated well with no adverse reactions noted. Trach care/oral care rendered. Airway is patent/secure. Suctioned small amounts of thin pale white secretions, no SOB. Alarms are on and audible. Circuit change tolerated well. Spare trach at bedside. Will continue to monitor.
[2019-10-12] MEDS: ALBUTEROL SULFATE 2.5 MG/3 ML NEBU NEB SCH ×6 (03:30→23:21)
[2019-10-12] MEDS: IPRATROPIUM BROMIDE 0.5 MG/2.5 ML NEBU NEB SCH ×6 (03:30→23:21)
[2019-10-12] MEDS: BACLOFEN 10 MG TABLET GT SCH ×3 (05:15→22:13)
[2019-10-12] MEDS: MIDODRINE HCL 10 MG TABLET GT SCH ×3 (05:15→22:14)
[2019-10-12] MEDS: BACLOFEN 20 MG TABLET GT SCH ×3 (05:15→22:13)
[2019-10-12] MEDS: METOCLOPRAMIDE HCL 5 MG TABLET GT SCH ×3 (05:16→22:14)
[2019-10-12] MEDS: OMEPRAZOLE 20 MG CAPSULE.DR GT SCH (05:16)
[2019-10-12] MEDS: PHENYTOIN 100 MG/4 ML UDC GT SCH ×2 (08:02→20:32)
[2019-10-12] MEDS: DESMOPRESSIN 0.1 MG TABLET GT SCH (08:02)
[2019-10-12] MEDS: levETIRAcetam 500 MG/5 ML LIQUID UDC GT SCH ×2 (08:04→20:32)
[2019-10-12] MEDS: ACIDOPHILUS/BULGARICUS CHEW TAB GT SCH ×2 (08:04→20:32)
[2019-10-12] MEDS: POTASSIUM CHLORIDE 40 MEQ/30 ML LIQUID UDC GT SCH (08:05)
[2019-10-12] MEDS: FUROSEMIDE 20 MG/2 ML GT SCH (08:05)
[2019-10-12] MEDS: COD LIVER OIL/ZINC OXIDE OINT 113 GM TUBE TOP SCH ×2 (08:06→20:33)
[2019-10-12 08:07] VITALS: BP 150/77
[2019-10-12] MEDS: HYDROGEN PEROXIDE 3% 118 ML BOTTLE TP SCH ×2 (08:07→21:46)
[2019-10-12] MEDS: TRIAMCINOLONE ACET 0.1% CREAM 15 GM TUBE TP SCH ×2 (08:07→20:33)
--- NOTE | 2019-10-12 14:00 | NUR ---
Regional Engagement Consultant care done by Dr Hamlin.
[2019-10-12] MEDS: FOLIC ACID 1 MG TABLET GT SCH (20:32)
[2019-10-12] MEDS: THIAMINE HCL 100 MG TABLET GT SCH (20:32)
[2019-10-12] MEDS: CHOLECALCIFEROL 1,000 UNIT TABLET GT SCH (20:33)
[2019-10-12 21:21] VITALS: BP 99/54
[2019-10-13] MEDS: ALBUTEROL SULFATE 2.5 MG/3 ML NEBU NEB SCH ×6 (02:44→23:24)
[2019-10-13] MEDS: IPRATROPIUM BROMIDE 0.5 MG/2.5 ML NEBU NEB SCH ×6 (02:44→23:24)
[2019-10-13] MEDS: BACLOFEN 10 MG TABLET GT SCH ×3 (06:01→21:13)
[2019-10-13] MEDS: OMEPRAZOLE 20 MG CAPSULE.DR GT SCH (06:02)
[2019-10-13] MEDS: BACLOFEN 20 MG TABLET GT SCH ×3 (06:02→21:13)
[2019-10-13] MEDS: MIDODRINE HCL 10 MG TABLET GT SCH ×3 (06:02→21:14)
[2019-10-13] MEDS: METOCLOPRAMIDE HCL 5 MG TABLET GT SCH ×3 (06:03→21:14)
[2019-10-13 08:30] VITALS: BP 124/78
[2019-10-13] MEDS: HYDROGEN PEROXIDE 3% 118 ML BOTTLE TP SCH ×2 (09:15→21:48)
[2019-10-13] MEDS: DESMOPRESSIN 0.1 MG TABLET GT SCH (09:19)
[2019-10-13] MEDS: PHENYTOIN 100 MG/4 ML UDC GT SCH ×2 (09:20→21:13)
[2019-10-13] MEDS: levETIRAcetam 500 MG/5 ML LIQUID UDC GT SCH ×2 (09:20→21:13)
[2019-10-13] MEDS: ACIDOPHILUS/BULGARICUS CHEW TAB GT SCH ×2 (09:20→21:13)
[2019-10-13] MEDS: POTASSIUM CHLORIDE 40 MEQ/30 ML LIQUID UDC GT SCH (09:21)
[2019-10-13] MEDS: FUROSEMIDE 20 MG/2 ML GT SCH (09:21)
[2019-10-13] MEDS: TRIAMCINOLONE ACET 0.1% CREAM 15 GM TUBE TP SCH ×2 (09:22→21:13)
[2019-10-13] MEDS: COD LIVER OIL/ZINC OXIDE OINT 113 GM TUBE TOP SCH ×2 (09:22→21:13)
--- NOTE | 2019-10-13 18:44 | NUR ---
SEEN BY DR. ANDER WAY.
[2019-10-13] MEDS: VITAL AF 1.2 1,000 ML LIQUID GT SCH (20:24)
[2019-10-13 20:42] VITALS: BP 99/59
[2019-10-13] MEDS: CHOLECALCIFEROL 1,000 UNIT TABLET GT SCH (21:13)
[2019-10-13] MEDS: FOLIC ACID 1 MG TABLET GT SCH (21:13)
[2019-10-13] MEDS: THIAMINE HCL 100 MG TABLET GT SCH (21:13)
[2019-10-14] MEDS: ALBUTEROL SULFATE 2.5 MG/3 ML NEBU NEB SCH ×6 (03:00→23:10)
[2019-10-14] MEDS: IPRATROPIUM BROMIDE 0.5 MG/2.5 ML NEBU NEB SCH ×6 (03:00→23:10)
[2019-10-14] MEDS: BACLOFEN 20 MG TABLET GT SCH ×3 (06:07→21:36)
[2019-10-14] MEDS: BACLOFEN 10 MG TABLET GT SCH ×3 (06:07→21:36)
[2019-10-14] MEDS: METOCLOPRAMIDE HCL 5 MG TABLET GT SCH ×3 (06:08→21:36)
[2019-10-14] MEDS: MIDODRINE HCL 10 MG TABLET GT SCH ×3 (06:08→21:36)
[2019-10-14] MEDS: OMEPRAZOLE 20 MG CAPSULE.DR GT SCH (06:08)
[2019-10-14] MEDS: DESMOPRESSIN 0.1 MG TABLET GT SCH (08:00)
[2019-10-14] MEDS: POTASSIUM CHLORIDE 40 MEQ/30 ML LIQUID UDC GT SCH (08:02)
[2019-10-14] MEDS: levETIRAcetam 500 MG/5 ML LIQUID UDC GT SCH ×2 (08:03→20:45)
[2019-10-14] MEDS: COD LIVER OIL/ZINC OXIDE OINT 113 GM TUBE TOP SCH ×2 (08:03→20:46)
[2019-10-14] MEDS: ACIDOPHILUS/BULGARICUS CHEW TAB GT SCH ×2 (08:04→20:45)
[2019-10-14] MEDS: PHENYTOIN 100 MG/4 ML UDC GT SCH ×2 (08:07→20:45)
[2019-10-14] MEDS: TRIAMCINOLONE ACET 0.1% CREAM 15 GM TUBE TP SCH ×2 (08:08→20:46)
[2019-10-14] MEDS: FUROSEMIDE 20 MG/2 ML GT SCH (08:08)
[2019-10-14] MEDS: HYDROGEN PEROXIDE 3% 118 ML BOTTLE TP SCH ×2 (09:15→21:24)
[2019-10-14 11:18] VITALS: BP 167/92
[2019-10-14] MEDS: FOLIC ACID 1 MG TABLET GT SCH (20:45)
[2019-10-14] MEDS: THIAMINE HCL 100 MG TABLET GT SCH (20:46)
[2019-10-14] MEDS: CHOLECALCIFEROL 1,000 UNIT TABLET GT SCH (20:46)
[2019-10-14 22:26] VITALS: BP 100/60
[2019-10-15] MEDS: ALBUTEROL SULFATE 2.5 MG/3 ML NEBU NEB SCH ×6 (03:09→23:05)
[2019-10-15] MEDS: IPRATROPIUM BROMIDE 0.5 MG/2.5 ML NEBU NEB SCH ×6 (03:09→23:05)
[2019-10-15] MEDS: MIDODRINE HCL 10 MG TABLET GT SCH ×3 (05:30→21:21)
[2019-10-15] MEDS: BACLOFEN 20 MG TABLET GT SCH ×3 (05:30→21:20)
[2019-10-15] MEDS: BACLOFEN 10 MG TABLET GT SCH ×3 (05:30→21:20)
[2019-10-15] MEDS: METOCLOPRAMIDE HCL 5 MG TABLET GT SCH ×3 (05:31→21:21)
[2019-10-15] MEDS: OMEPRAZOLE 20 MG CAPSULE.DR GT SCH (05:31)
[2019-10-15] MEDS: HYDROGEN PEROXIDE 3% 118 ML BOTTLE TP SCH ×2 (08:28→21:36)
[2019-10-15] MEDS: DESMOPRESSIN 0.1 MG TABLET GT SCH (08:56)
[2019-10-15] MEDS: ACIDOPHILUS/BULGARICUS CHEW TAB GT SCH ×2 (08:56→21:20)
[2019-10-15] MEDS: levETIRAcetam 500 MG/5 ML LIQUID UDC GT SCH ×2 (08:57→21:20)
[2019-10-15] MEDS: POTASSIUM CHLORIDE 40 MEQ/30 ML LIQUID UDC GT SCH (08:58)
[2019-10-15] MEDS: FUROSEMIDE 20 MG/2 ML GT SCH (08:59)
[2019-10-15] MEDS: COD LIVER OIL/ZINC OXIDE OINT 113 GM TUBE TOP SCH ×2 (08:59→21:20)
[2019-10-15] MEDS: TRIAMCINOLONE ACET 0.1% CREAM 15 GM TUBE TP SCH ×2 (08:59→21:20)
[2019-10-15] MEDS: PHENYTOIN 100 MG/4 ML UDC GT SCH ×2 (09:06→21:20)
[2019-10-15 14:09] VITALS: BP 107/50
[2019-10-15] MEDS: THIAMINE HCL 100 MG TABLET GT SCH (21:20)
[2019-10-15] MEDS: CHOLECALCIFEROL 1,000 UNIT TABLET GT SCH (21:20)
[2019-10-15] MEDS: FOLIC ACID 1 MG TABLET GT SCH (21:20)
[2019-10-15 21:51] VITALS: BP 109/74
[2019-10-16] MEDS: VITAL AF 1.2 1,000 ML LIQUID GT SCH (02:46)
[2019-10-16] MEDS: IPRATROPIUM BROMIDE 0.5 MG/2.5 ML NEBU NEB SCH ×6 (03:16→22:40)
[2019-10-16] MEDS: ALBUTEROL SULFATE 2.5 MG/3 ML NEBU NEB SCH ×6 (03:16→22:40)
[2019-10-16] MEDS: BACLOFEN 20 MG TABLET GT SCH ×3 (05:29→21:57)
[2019-10-16] MEDS: METOCLOPRAMIDE HCL 5 MG TABLET GT SCH ×3 (05:29→22:06)
[2019-10-16] MEDS: BACLOFEN 10 MG TABLET GT SCH ×3 (05:29→21:57)
[2019-10-16] MEDS: OMEPRAZOLE 20 MG CAPSULE.DR GT SCH (05:29)
[2019-10-16] MEDS: MIDODRINE HCL 10 MG TABLET GT SCH ×3 (05:29→22:00)
[2019-10-16] MEDS: PHENYTOIN 100 MG/4 ML UDC GT SCH ×2 (08:28→21:59)
[2019-10-16] MEDS: DESMOPRESSIN 0.1 MG TABLET GT SCH (08:28)
[2019-10-16] MEDS: ACIDOPHILUS/BULGARICUS CHEW TAB GT SCH ×2 (08:29→21:58)
[2019-10-16] MEDS: levETIRAcetam 500 MG/5 ML LIQUID UDC GT SCH ×2 (08:30→22:00)
[2019-10-16] MEDS: FUROSEMIDE 20 MG/2 ML GT SCH (08:31)
[2019-10-16] MEDS: POTASSIUM CHLORIDE 40 MEQ/30 ML LIQUID UDC GT SCH (08:31)
[2019-10-16] MEDS: COD LIVER OIL/ZINC OXIDE OINT 113 GM TUBE TOP SCH ×2 (08:32→21:57)
[2019-10-16] MEDS: TRIAMCINOLONE ACET 0.1% CREAM 15 GM TUBE TP SCH ×2 (08:32→21:57)
[2019-10-16] MEDS: HYDROGEN PEROXIDE 3% 118 ML BOTTLE TP SCH ×2 (08:32→21:47)
[2019-10-16 11:10] VITALS: BP 103/61
[2019-10-16] MEDS: CHOLECALCIFEROL 1,000 UNIT TABLET GT SCH (22:00)
[2019-10-16] MEDS: THIAMINE HCL 100 MG TABLET GT SCH (22:00)
[2019-10-16] MEDS: FOLIC ACID 1 MG TABLET GT SCH (22:00)
[2019-10-16 22:55] VITALS: BP 155/80
[2019-10-17] MEDS: IPRATROPIUM BROMIDE 0.5 MG/2.5 ML NEBU NEB SCH ×6 (02:40→23:10)
[2019-10-17] MEDS: ALBUTEROL SULFATE 2.5 MG/3 ML NEBU NEB SCH ×6 (02:40→23:10)
[2019-10-17] MEDS: VITAL AF 1.2 1,000 ML LIQUID GT SCH (03:01)
[2019-10-17] MEDS: BACLOFEN 20 MG TABLET GT SCH ×3 (05:33→22:07)
[2019-10-17] MEDS: BACLOFEN 10 MG TABLET GT SCH ×3 (05:33→22:07)
[2019-10-17] MEDS: METOCLOPRAMIDE HCL 5 MG TABLET GT SCH ×3 (05:33→22:09)
[2019-10-17] MEDS: OMEPRAZOLE 20 MG CAPSULE.DR GT SCH (05:33)
[2019-10-17] MEDS: MIDODRINE HCL 10 MG TABLET GT SCH ×3 (06:44→22:08)
[2019-10-17 08:00] VITALS: BP_SYST 116; BP_SYST 72; BP_DIAS 72
[2019-10-17] MEDS: HYDROGEN PEROXIDE 3% 118 ML BOTTLE TP SCH ×2 (09:06→20:22)
[2019-10-17] MEDS: DESMOPRESSIN 0.1 MG TABLET GT SCH (09:43)
[2019-10-17] MEDS: levETIRAcetam 500 MG/5 ML LIQUID UDC GT SCH ×2 (09:43→20:19)
[2019-10-17] MEDS: ACIDOPHILUS/BULGARICUS CHEW TAB GT SCH ×2 (09:43→20:19)
[2019-10-17] MEDS: PHENYTOIN 100 MG/4 ML UDC GT SCH ×2 (09:43→20:19)
[2019-10-17] MEDS: FUROSEMIDE 20 MG/2 ML GT SCH (09:44)
[2019-10-17] MEDS: POTASSIUM CHLORIDE 40 MEQ/30 ML LIQUID UDC GT SCH (09:44)
[2019-10-17] MEDS: TRIAMCINOLONE ACET 0.1% CREAM 15 GM TUBE TP SCH ×2 (09:45→20:23)
[2019-10-17] MEDS: COD LIVER OIL/ZINC OXIDE OINT 113 GM TUBE TOP SCH ×2 (09:45→20:22)
--- NOTE | 2019-10-17 12:50 | NUR ---
SEEN BY EMMY Agustin AND WITH NNO.
[2019-10-17] MEDS: THIAMINE HCL 100 MG TABLET GT SCH (20:22)
[2019-10-17] MEDS: CHOLECALCIFEROL 1,000 UNIT TABLET GT SCH (20:22)
[2019-10-17 20:31] VITALS: BP 96/57
[2019-10-17] MEDS: FOLIC ACID 1 MG TABLET GT SCH (20:33)
[2019-10-18] MEDS: ALBUTEROL SULFATE 2.5 MG/3 ML NEBU NEB SCH ×6 (02:43→22:52)
[2019-10-18] MEDS: IPRATROPIUM BROMIDE 0.5 MG/2.5 ML NEBU NEB SCH ×6 (02:43→22:52)
[2019-10-18] MEDS: BACLOFEN 10 MG TABLET GT SCH ×3 (04:32→21:43)
[2019-10-18] MEDS: MIDODRINE HCL 10 MG TABLET GT SCH ×3 (04:32→21:44)
[2019-10-18] MEDS: BACLOFEN 20 MG TABLET GT SCH ×3 (04:32→21:43)
[2019-10-18] MEDS: OMEPRAZOLE 20 MG CAPSULE.DR GT SCH (04:33)
[2019-10-18] MEDS: METOCLOPRAMIDE HCL 5 MG TABLET GT SCH ×3 (04:33→21:44)
[2019-10-18 07:55] VITALS: BP 105/58
[2019-10-18] MEDS: levETIRAcetam 500 MG/5 ML LIQUID UDC GT SCH ×2 (08:02→21:43)
[2019-10-18] MEDS: TRIAMCINOLONE ACET 0.1% CREAM 15 GM TUBE TP SCH ×2 (08:02→21:43)
[2019-10-18] MEDS: DESMOPRESSIN 0.1 MG TABLET GT SCH (08:02)
[2019-10-18] MEDS: COD LIVER OIL/ZINC OXIDE OINT 113 GM TUBE TOP SCH ×2 (08:02→21:43)
[2019-10-18] MEDS: ACIDOPHILUS/BULGARICUS CHEW TAB GT SCH ×2 (08:02→21:43)
[2019-10-18] MEDS: PHENYTOIN 100 MG/4 ML UDC GT SCH ×2 (08:02→21:43)
[2019-10-18] MEDS: FUROSEMIDE 20 MG/2 ML GT SCH (08:02)
[2019-10-18] MEDS: POTASSIUM CHLORIDE 40 MEQ/30 ML LIQUID UDC GT SCH (08:02)
[2019-10-18] MEDS: HYDROGEN PEROXIDE 3% 118 ML BOTTLE TP SCH ×2 (09:10→20:56)
[2019-10-18] MEDS: VITAL AF 1.2 1,000 ML LIQUID GT SCH (18:47)
[2019-10-18 20:00] VITALS: BP 113/77
[2019-10-18] MEDS: THIAMINE HCL 100 MG TABLET GT SCH (21:43)
[2019-10-18] MEDS: CHOLECALCIFEROL 1,000 UNIT TABLET GT SCH (21:43)
[2019-10-18] MEDS: FOLIC ACID 1 MG TABLET GT SCH (21:43)
[2019-10-19] MEDS: IPRATROPIUM BROMIDE 0.5 MG/2.5 ML NEBU NEB SCH ×6 (02:54→22:41)
[2019-10-19] MEDS: ALBUTEROL SULFATE 2.5 MG/3 ML NEBU NEB SCH ×6 (02:54→22:41)
[2019-10-19] MEDS: MIDODRINE HCL 10 MG TABLET GT SCH ×3 (06:00→21:47)
[2019-10-19] MEDS: BACLOFEN 20 MG TABLET GT SCH ×3 (06:10→21:47)
[2019-10-19] MEDS: BACLOFEN 10 MG TABLET GT SCH ×3 (06:10→21:47)
[2019-10-19] MEDS: OMEPRAZOLE 20 MG CAPSULE.DR GT SCH (06:11)
[2019-10-19] MEDS: METOCLOPRAMIDE HCL 5 MG TABLET GT SCH ×3 (06:11→21:47)
[2019-10-19] MEDS: DESMOPRESSIN 0.1 MG TABLET GT SCH (08:26)
[2019-10-19] MEDS: PHENYTOIN 100 MG/4 ML UDC GT SCH ×2 (08:27→21:46)
[2019-10-19] MEDS: FUROSEMIDE 20 MG/2 ML GT SCH (08:28)
[2019-10-19] MEDS: ACIDOPHILUS/BULGARICUS CHEW TAB GT SCH ×2 (08:28→21:46)
[2019-10-19] MEDS: levETIRAcetam 500 MG/5 ML LIQUID UDC GT SCH ×2 (08:28→21:46)
[2019-10-19] MEDS: POTASSIUM CHLORIDE 40 MEQ/30 ML LIQUID UDC GT SCH (08:29)
[2019-10-19] MEDS: TRIAMCINOLONE ACET 0.1% CREAM 15 GM TUBE TP SCH ×2 (08:29→21:46)
[2019-10-19] MEDS: COD LIVER OIL/ZINC OXIDE OINT 113 GM TUBE TOP SCH ×2 (08:29→21:46)
[2019-10-19] MEDS: HYDROGEN PEROXIDE 3% 118 ML BOTTLE TP SCH ×2 (08:31→21:21)
[2019-10-19 10:23] VITALS: BP 123/73
[2019-10-19 10:25] VITALS: BP 118/72
--- NOTE | 2019-10-19 12:50 | NUR ---
FT done at this time with patient's mother.
[2019-10-19] MEDS: VITAL AF 1.2 1,000 ML LIQUID GT SCH (18:07)
[2019-10-19 20:00] VITALS: BP 116/71
[2019-10-19] MEDS: THIAMINE HCL 100 MG TABLET GT SCH (21:46)
[2019-10-19] MEDS: CHOLECALCIFEROL 1,000 UNIT TABLET GT SCH (21:46)
[2019-10-19] MEDS: FOLIC ACID 1 MG TABLET GT SCH (21:46)
[2019-10-20] MEDS: ALBUTEROL SULFATE 2.5 MG/3 ML NEBU NEB SCH ×6 (02:55→23:24)
[2019-10-20] MEDS: IPRATROPIUM BROMIDE 0.5 MG/2.5 ML NEBU NEB SCH ×6 (02:55→23:24)
[2019-10-20] MEDS: BACLOFEN 10 MG TABLET GT SCH ×3 (05:59→21:56)
[2019-10-20] MEDS: BACLOFEN 20 MG TABLET GT SCH ×3 (06:00→21:56)
[2019-10-20] MEDS: METOCLOPRAMIDE HCL 5 MG TABLET GT SCH ×3 (06:00→21:57)
[2019-10-20] MEDS: OMEPRAZOLE 20 MG CAPSULE.DR GT SCH (06:00)
[2019-10-20] MEDS: MIDODRINE HCL 10 MG TABLET GT SCH ×3 (06:00→21:57)
[2019-10-20] MEDS: levETIRAcetam 500 MG/5 ML LIQUID UDC GT SCH ×2 (08:06→21:54)
[2019-10-20] MEDS: ACIDOPHILUS/BULGARICUS CHEW TAB GT SCH ×2 (08:06→21:52)
[2019-10-20] MEDS: PHENYTOIN 100 MG/4 ML UDC GT SCH ×2 (08:06→21:52)
[2019-10-20] MEDS: DESMOPRESSIN 0.1 MG TABLET GT SCH (08:06)
[2019-10-20] MEDS: FUROSEMIDE 20 MG/2 ML GT SCH (08:06)
[2019-10-20] MEDS: COD LIVER OIL/ZINC OXIDE OINT 113 GM TUBE TOP SCH ×2 (08:07→21:56)
[2019-10-20] MEDS: POTASSIUM CHLORIDE 40 MEQ/30 ML LIQUID UDC GT SCH (08:07)
[2019-10-20] MEDS: TRIAMCINOLONE ACET 0.1% CREAM 15 GM TUBE TP SCH ×2 (08:11→21:56)
[2019-10-20] MEDS: HYDROGEN PEROXIDE 3% 118 ML BOTTLE TP SCH ×2 (09:13→21:00)
[2019-10-20 13:37] VITALS: BP 142/93
[2019-10-20] MEDS: VITAL AF 1.2 1,000 ML LIQUID GT SCH (14:30)
[2019-10-20] MEDS: BISACODYL 10 MG SUPP.RECT RC PRN (18:02)
[2019-10-20 19:58] VITALS: BP 132/84
[2019-10-20] MEDS: FOLIC ACID 1 MG TABLET GT SCH (21:54)
[2019-10-20] MEDS: THIAMINE HCL 100 MG TABLET GT SCH (21:55)
[2019-10-20] MEDS: CHOLECALCIFEROL 1,000 UNIT TABLET GT SCH (21:56)
[2019-10-21] MEDS: IPRATROPIUM BROMIDE 0.5 MG/2.5 ML NEBU NEB SCH ×6 (02:57→23:13)
[2019-10-21] MEDS: ALBUTEROL SULFATE 2.5 MG/3 ML NEBU NEB SCH ×6 (02:57→23:13)
[2019-10-21 05:05] VITALS: BP 115/74
[2019-10-21] MEDS: MIDODRINE HCL 10 MG TABLET GT SCH ×3 (06:00→21:14)
[2019-10-21] MEDS: BACLOFEN 20 MG TABLET GT SCH ×3 (06:14→21:13)
[2019-10-21] MEDS: BACLOFEN 10 MG TABLET GT SCH ×3 (06:14→21:13)
[2019-10-21] MEDS: METOCLOPRAMIDE HCL 5 MG TABLET GT SCH ×3 (06:15→21:14)
[2019-10-21] MEDS: OMEPRAZOLE 20 MG CAPSULE.DR GT SCH (06:15)
[2019-10-21] MEDS: levETIRAcetam 500 MG/5 ML LIQUID UDC GT SCH ×2 (08:41→20:23)
[2019-10-21] MEDS: PHENYTOIN 100 MG/4 ML UDC GT SCH ×2 (08:41→20:23)
[2019-10-21] MEDS: ACIDOPHILUS/BULGARICUS CHEW TAB GT SCH ×2 (08:41→20:23)
[2019-10-21] MEDS: DESMOPRESSIN 0.1 MG TABLET GT SCH (08:41)
[2019-10-21] MEDS: FUROSEMIDE 20 MG/2 ML GT SCH (08:41)
[2019-10-21] MEDS: POTASSIUM CHLORIDE 40 MEQ/30 ML LIQUID UDC GT SCH (08:41)
[2019-10-21] MEDS: COD LIVER OIL/ZINC OXIDE OINT 113 GM TUBE TOP SCH ×2 (08:42→20:23)
[2019-10-21] MEDS: TRIAMCINOLONE ACET 0.1% CREAM 15 GM TUBE TP SCH ×2 (08:42→20:23)
[2019-10-21] MEDS: HYDROGEN PEROXIDE 3% 118 ML BOTTLE TP SCH ×2 (09:46→21:48)
[2019-10-21 10:55] VITALS: BP 108/70
[2019-10-21] MEDS: CHOLECALCIFEROL 1,000 UNIT TABLET GT SCH (20:23)
[2019-10-21] MEDS: THIAMINE HCL 100 MG TABLET GT SCH (20:23)
[2019-10-21] MEDS: FOLIC ACID 1 MG TABLET GT SCH (20:23)
[2019-10-21 20:54] VITALS: BP 107/65
[2019-10-22] MEDS: IPRATROPIUM BROMIDE 0.5 MG/2.5 ML NEBU NEB SCH ×6 (02:41→23:25)
[2019-10-22] MEDS: ALBUTEROL SULFATE 2.5 MG/3 ML NEBU NEB SCH ×6 (02:41→23:25)
[2019-10-22] MEDS: BACLOFEN 20 MG TABLET GT SCH ×3 (05:16→21:10)
[2019-10-22] MEDS: MIDODRINE HCL 10 MG TABLET GT SCH ×3 (05:16→21:10)
[2019-10-22] MEDS: BACLOFEN 10 MG TABLET GT SCH ×3 (05:16→21:10)
[2019-10-22] MEDS: METOCLOPRAMIDE HCL 5 MG TABLET GT SCH ×3 (05:17→21:10)
[2019-10-22] MEDS: OMEPRAZOLE 20 MG CAPSULE.DR GT SCH (05:17)
[2019-10-22] MEDS: HYDROGEN PEROXIDE 3% 118 ML BOTTLE TP SCH ×2 (08:22→20:37)
[2019-10-22] MEDS: DESMOPRESSIN 0.1 MG TABLET GT SCH (09:11)
[2019-10-22] MEDS: levETIRAcetam 500 MG/5 ML LIQUID UDC GT SCH ×2 (09:11→20:17)
[2019-10-22] MEDS: ACIDOPHILUS/BULGARICUS CHEW TAB GT SCH ×2 (09:11→20:17)
[2019-10-22] MEDS: PHENYTOIN 100 MG/4 ML UDC GT SCH ×2 (09:11→20:17)
[2019-10-22] MEDS: POTASSIUM CHLORIDE 40 MEQ/30 ML LIQUID UDC GT SCH (09:12)
[2019-10-22] MEDS: FUROSEMIDE 20 MG/2 ML GT SCH (09:12)
[2019-10-22] MEDS: TRIAMCINOLONE ACET 0.1% CREAM 15 GM TUBE TP SCH ×2 (09:13→20:17)
[2019-10-22] MEDS: COD LIVER OIL/ZINC OXIDE OINT 113 GM TUBE TOP SCH ×2 (09:13→20:17)
[2019-10-22 11:25] VITALS: BP 110/68
[2019-10-22] MEDS: VITAL AF 1.2 1,000 ML LIQUID GT SCH (13:20)
[2019-10-22 20:15] VITALS: BP 114/73
[2019-10-22] MEDS: FOLIC ACID 1 MG TABLET GT SCH (20:17)
[2019-10-22] MEDS: THIAMINE HCL 100 MG TABLET GT SCH (20:17)
[2019-10-22] MEDS: CHOLECALCIFEROL 1,000 UNIT TABLET GT SCH (20:17)
[2019-10-23] MEDS: IPRATROPIUM BROMIDE 0.5 MG/2.5 ML NEBU NEB SCH ×6 (02:40→23:23)
[2019-10-23] MEDS: ALBUTEROL SULFATE 2.5 MG/3 ML NEBU NEB SCH ×6 (02:40→23:23)
[2019-10-23] MEDS: BACLOFEN 20 MG TABLET GT SCH ×3 (05:28→21:12)
[2019-10-23] MEDS: MIDODRINE HCL 10 MG TABLET GT SCH ×3 (05:28→21:12)
[2019-10-23] MEDS: BACLOFEN 10 MG TABLET GT SCH ×3 (05:28→21:12)
[2019-10-23] MEDS: METOCLOPRAMIDE HCL 5 MG TABLET GT SCH ×3 (05:28→21:12)
[2019-10-23] MEDS: OMEPRAZOLE 20 MG CAPSULE.DR GT SCH (05:28)
[2019-10-23] MEDS: HYDROGEN PEROXIDE 3% 118 ML BOTTLE TP SCH ×2 (07:45→21:27)
[2019-10-23 08:30] VITALS: BP 115/70
[2019-10-23] MEDS: DESMOPRESSIN 0.1 MG TABLET GT SCH (08:44)
[2019-10-23] MEDS: POTASSIUM CHLORIDE 40 MEQ/30 ML LIQUID UDC GT SCH (08:44)
[2019-10-23] MEDS: levETIRAcetam 500 MG/5 ML LIQUID UDC GT SCH ×2 (08:44→20:13)
[2019-10-23] MEDS: COD LIVER OIL/ZINC OXIDE OINT 113 GM TUBE TOP SCH ×2 (08:44→20:13)
[2019-10-23] MEDS: ACIDOPHILUS/BULGARICUS CHEW TAB GT SCH ×2 (08:44→20:13)
[2019-10-23] MEDS: PHENYTOIN 100 MG/4 ML UDC GT SCH ×2 (08:44→20:13)
[2019-10-23] MEDS: FUROSEMIDE 20 MG/2 ML GT SCH (08:44)
[2019-10-23] MEDS: TRIAMCINOLONE ACET 0.1% CREAM 15 GM TUBE TP SCH ×2 (08:45→20:13)
--- NOTE | 2019-10-23 14:00 | NUR ---
Seen and examined by Dr Dillard,no new orders noted.
[2019-10-23] MEDS: CHOLECALCIFEROL 1,000 UNIT TABLET GT SCH (20:13)
[2019-10-23] MEDS: FOLIC ACID 1 MG TABLET GT SCH (20:13)
[2019-10-23] MEDS: THIAMINE HCL 100 MG TABLET GT SCH (20:13)
[2019-10-23 20:48] VITALS: BP 110/56
[2019-10-24] MEDS: IPRATROPIUM BROMIDE 0.5 MG/2.5 ML NEBU NEB SCH ×6 (03:11→22:40)
[2019-10-24] MEDS: ALBUTEROL SULFATE 2.5 MG/3 ML NEBU NEB SCH ×6 (03:11→22:40)
[2019-10-24] MEDS: METOCLOPRAMIDE HCL 5 MG TABLET GT SCH ×3 (05:36→21:36)
[2019-10-24] MEDS: MIDODRINE HCL 10 MG TABLET GT SCH ×3 (05:36→21:35)
[2019-10-24] MEDS: BACLOFEN 20 MG TABLET GT SCH ×3 (05:36→21:34)
[2019-10-24] MEDS: BACLOFEN 10 MG TABLET GT SCH ×3 (05:36→21:34)
[2019-10-24] MEDS: OMEPRAZOLE 20 MG CAPSULE.DR GT SCH (05:36)
[2019-10-24] MEDS: HYDROGEN PEROXIDE 3% 118 ML BOTTLE TP SCH ×2 (08:18→21:33)
[2019-10-24 08:30] VITALS: BP 100/58
[2019-10-24] MEDS: DESMOPRESSIN 0.1 MG TABLET GT SCH (08:59)
[2019-10-24] MEDS: TRIAMCINOLONE ACET 0.1% CREAM 15 GM TUBE TP SCH ×2 (09:00→21:33)
[2019-10-24] MEDS: PHENYTOIN 100 MG/4 ML UDC GT SCH ×2 (09:01→21:38)
[2019-10-24] MEDS: ACIDOPHILUS/BULGARICUS CHEW TAB GT SCH ×2 (09:01→21:31)
[2019-10-24] MEDS: levETIRAcetam 500 MG/5 ML LIQUID UDC GT SCH ×2 (09:01→21:37)
[2019-10-24] MEDS: POTASSIUM CHLORIDE 40 MEQ/30 ML LIQUID UDC GT SCH (09:03)
[2019-10-24] MEDS: FUROSEMIDE 20 MG/2 ML GT SCH (09:03)
[2019-10-24] MEDS: COD LIVER OIL/ZINC OXIDE OINT 113 GM TUBE TOP SCH ×2 (09:04→21:33)
[2019-10-24 20:16] VITALS: BP 115/60
[2019-10-24] MEDS: THIAMINE HCL 100 MG TABLET GT SCH (21:32)
[2019-10-24] MEDS: FOLIC ACID 1 MG TABLET GT SCH (21:32)
[2019-10-24] MEDS: CHOLECALCIFEROL 1,000 UNIT TABLET GT SCH (21:32)
[2019-10-25] MEDS: ALBUTEROL SULFATE 2.5 MG/3 ML NEBU NEB SCH ×6 (02:40→23:24)
[2019-10-25] MEDS: IPRATROPIUM BROMIDE 0.5 MG/2.5 ML NEBU NEB SCH ×6 (02:40→23:24)
[2019-10-25] MEDS: METOCLOPRAMIDE HCL 5 MG TABLET GT SCH ×3 (05:11→21:49)
[2019-10-25] MEDS: BACLOFEN 20 MG TABLET GT SCH ×3 (05:11→21:49)
[2019-10-25] MEDS: OMEPRAZOLE 20 MG CAPSULE.DR GT SCH (05:11)
[2019-10-25] MEDS: BACLOFEN 10 MG TABLET GT SCH ×3 (05:11→21:49)
[2019-10-25] MEDS: MIDODRINE HCL 10 MG TABLET GT SCH ×3 (05:19→21:49)
[2019-10-25 06:28] LABS: BASOPHILS # (AUTO) 0.1 K/uL (0.0-8.0); BASOPHILS % (AUTO) 0.9 % (0.0-2.0); EOSINOPHILS # (AUTO) 0.6 K/uL (0.0-0.7); HEMATOCRIT 33.4 % (31.2-41.9); HEMOGLOBIN 11.3 g/dL (10.9-14.3); LYMPHOCYTES # (AUTO) 2.3 K/uL (20.0-40.0); LYMPHOCYTES % (AUTO) 33.2 % (20.5-51.5); MEAN CORPUSCULAR HEMOGLOBIN 32.3 uug (24.7-32.8); MEAN CORPUSCULAR HGB CONC 34 g/dL (32.3-35.6); MONOCYTES # (AUTO) 0.5 K/uL (2.0-10.0); MONOCYTES % (AUTO) 7.7 % (0.0-11.0); NEUTROPHILS # (AUTO) 3.6 K/uL (1.8-8.9); NEUTROPHILS % (AUTO) 50.2 % (38.5-71.5); PLATELET COUNT (AUTO) 322 K/uL (179-408); RED BLOOD CELL COUNT(AUTO) 3.51 MIL/uL (3.63-4.92); WHITE BLOOD COUNT (AUTO) 7.1 K/uL (3.8-11.8)
[2019-10-25 06:44] LABS: CREATININE 0.6 mg/dL (0.6-1.3); MAGNESIUM 1.8 mg/dL (1.8-2.4); PHOSPHOROUS 4.1 mg/dL (2.5-4.9); POTASSIUM 3.4 mmol/L (3.5-5.1)
[2019-10-25 08:00] VITALS: BP 115/70
[2019-10-25] MEDS: HYDROGEN PEROXIDE 3% 118 ML BOTTLE TP SCH ×2 (08:32→21:38)
[2019-10-25] MEDS: PHENYTOIN 100 MG/4 ML UDC GT SCH ×2 (08:41→21:45)
[2019-10-25] MEDS: POTASSIUM CHLORIDE 40 MEQ/30 ML LIQUID UDC GT SCH (08:41)
[2019-10-25] MEDS: DESMOPRESSIN 0.1 MG TABLET GT SCH (08:41)
[2019-10-25] MEDS: levETIRAcetam 500 MG/5 ML LIQUID UDC GT SCH ×2 (08:41→21:47)
[2019-10-25] MEDS: ACIDOPHILUS/BULGARICUS CHEW TAB GT SCH ×2 (08:41→21:46)
[2019-10-25] MEDS: FUROSEMIDE 20 MG/2 ML GT SCH (08:41)
[2019-10-25] MEDS: COD LIVER OIL/ZINC OXIDE OINT 113 GM TUBE TOP SCH ×2 (08:42→21:49)
[2019-10-25] MEDS: TRIAMCINOLONE ACET 0.1% CREAM 15 GM TUBE TP SCH ×2 (08:42→21:49)
[2019-10-25] MEDS: VITAL AF 1.2 1,000 ML LIQUID GT SCH (19:07)
--- NOTE | 2019-10-25 19:13 | NUR ---
Seen and examined by Marguerite CALVO ,no new orders noted.FT done with pt's mother.
[2019-10-25] MEDS: FOLIC ACID 1 MG TABLET GT SCH (21:46)
[2019-10-25] MEDS: THIAMINE HCL 100 MG TABLET GT SCH (21:47)
[2019-10-25] MEDS: CHOLECALCIFEROL 1,000 UNIT TABLET GT SCH (21:48)
[2019-10-26] MEDS: IPRATROPIUM BROMIDE 0.5 MG/2.5 ML NEBU NEB SCH ×6 (03:00→23:42)
[2019-10-26] MEDS: ALBUTEROL SULFATE 2.5 MG/3 ML NEBU NEB SCH ×6 (03:00→23:42)
[2019-10-26] MEDS: BACLOFEN 10 MG TABLET GT SCH ×3 (05:24→21:29)
[2019-10-26] MEDS: BACLOFEN 20 MG TABLET GT SCH ×3 (05:24→21:30)
[2019-10-26] MEDS: METOCLOPRAMIDE HCL 5 MG TABLET GT SCH ×3 (05:25→21:31)
[2019-10-26] MEDS: OMEPRAZOLE 20 MG CAPSULE.DR GT SCH (05:25)
[2019-10-26] MEDS: MIDODRINE HCL 10 MG TABLET GT SCH ×3 (06:04→21:31)
[2019-10-26 08:00] VITALS: BP 113/64
[2019-10-26] MEDS: DESMOPRESSIN 0.1 MG TABLET GT SCH (08:21)
[2019-10-26] MEDS: PHENYTOIN 100 MG/4 ML UDC GT SCH ×2 (08:21→21:27)
[2019-10-26] MEDS: levETIRAcetam 500 MG/5 ML LIQUID UDC GT SCH ×2 (08:22→21:28)
[2019-10-26] MEDS: HYDROGEN PEROXIDE 3% 118 ML BOTTLE TP SCH ×2 (08:22→21:45)
[2019-10-26] MEDS: ACIDOPHILUS/BULGARICUS CHEW TAB GT SCH ×2 (08:22→21:28)
[2019-10-26] MEDS: COD LIVER OIL/ZINC OXIDE OINT 113 GM TUBE TOP SCH ×2 (08:22→21:29)
[2019-10-26] MEDS: POTASSIUM CHLORIDE 40 MEQ/30 ML LIQUID UDC GT SCH (08:22)
[2019-10-26] MEDS: FUROSEMIDE 20 MG/2 ML GT SCH (08:22)
[2019-10-26] MEDS: TRIAMCINOLONE ACET 0.1% CREAM 15 GM TUBE TP SCH ×2 (08:23→21:29)
--- NOTE | 2019-10-26 16:30 | NUR ---
Facetime was done with patient's mother at this time.
[2019-10-26 20:22] VITALS: BP 111/64
[2019-10-26] MEDS: FOLIC ACID 1 MG TABLET GT SCH (21:28)
[2019-10-26] MEDS: CHOLECALCIFEROL 1,000 UNIT TABLET GT SCH (21:29)
[2019-10-26] MEDS: THIAMINE HCL 100 MG TABLET GT SCH (21:29)
--- NOTE | 2019-10-27 01:31 | NUR ---
PT ON CONT HT 50 VENT WITH SHILEY TRACH IN PLACE AND SECURED, ON SAME VENT SETTINGS, SIMV 12, MOSTLY CONTROLLED VENTILATION, WITH GOOD COUGH EFFORT, NEB INLINE Q4 TOLL WELL, NO VENT CHANGES MADE, SUCTIONED LIGHT PALE YELL TINGE SECRETIONS, CHECK CUFF, CHANGE HME, .D TARA TILE TRIMMER Addendum: 10/27/19 at 0133 by BESS PACHECO RT Amended: Links added.
[2019-10-27] MEDS: ALBUTEROL SULFATE 2.5 MG/3 ML NEBU NEB SCH ×6 (03:45→23:35)
[2019-10-27] MEDS: IPRATROPIUM BROMIDE 0.5 MG/2.5 ML NEBU NEB SCH ×6 (03:45→23:35)
[2019-10-27] MEDS: MIDODRINE HCL 10 MG TABLET GT SCH ×3 (06:03→21:45)
[2019-10-27] MEDS: METOCLOPRAMIDE HCL 5 MG TABLET GT SCH ×3 (06:03→21:45)
[2019-10-27] MEDS: OMEPRAZOLE 20 MG CAPSULE.DR GT SCH (06:03)
[2019-10-27] MEDS: BACLOFEN 10 MG TABLET GT SCH ×3 (06:03→21:45)
[2019-10-27] MEDS: BACLOFEN 20 MG TABLET GT SCH ×3 (06:03→21:45)
[2019-10-27 08:00] VITALS: BP 113/70
[2019-10-27] MEDS: DESMOPRESSIN 0.1 MG TABLET GT SCH (08:21)
[2019-10-27] MEDS: PHENYTOIN 100 MG/4 ML UDC GT SCH ×2 (08:22→21:44)
[2019-10-27] MEDS: levETIRAcetam 500 MG/5 ML LIQUID UDC GT SCH ×2 (08:22→21:44)
[2019-10-27] MEDS: ACIDOPHILUS/BULGARICUS CHEW TAB GT SCH ×2 (08:22→21:44)
[2019-10-27] MEDS: FUROSEMIDE 20 MG/2 ML GT SCH (08:23)
[2019-10-27] MEDS: POTASSIUM CHLORIDE 40 MEQ/30 ML LIQUID UDC GT SCH (08:23)
[2019-10-27] MEDS: COD LIVER OIL/ZINC OXIDE OINT 113 GM TUBE TOP SCH ×2 (08:24→21:45)
[2019-10-27] MEDS: TRIAMCINOLONE ACET 0.1% CREAM 15 GM TUBE TP SCH ×2 (08:24→21:45)
[2019-10-27] MEDS: HYDROGEN PEROXIDE 3% 118 ML BOTTLE TP SCH ×2 (09:00→21:16)
[2019-10-27] MEDS: THIAMINE HCL 100 MG TABLET GT SCH (21:44)
[2019-10-27] MEDS: CHOLECALCIFEROL 1,000 UNIT TABLET GT SCH (21:44)
[2019-10-27] MEDS: FOLIC ACID 1 MG TABLET GT SCH (21:44)
[2019-10-27 23:32] VITALS: BP 122/70
[2019-10-28] MEDS: IPRATROPIUM BROMIDE 0.5 MG/2.5 ML NEBU NEB SCH ×6 (03:05→23:26)
[2019-10-28] MEDS: ALBUTEROL SULFATE 2.5 MG/3 ML NEBU NEB SCH ×6 (03:05→23:26)
[2019-10-28] MEDS: VITAL AF 1.2 1,000 ML LIQUID GT SCH (05:00)
[2019-10-28] MEDS: BACLOFEN 20 MG TABLET GT SCH ×3 (05:11→21:27)
[2019-10-28] MEDS: BACLOFEN 10 MG TABLET GT SCH ×3 (05:11→21:27)
[2019-10-28] MEDS: MIDODRINE HCL 10 MG TABLET GT SCH ×3 (05:12→21:27)
[2019-10-28] MEDS: OMEPRAZOLE 20 MG CAPSULE.DR GT SCH (05:12)
[2019-10-28] MEDS: METOCLOPRAMIDE HCL 5 MG TABLET GT SCH ×3 (05:12→21:28)
[2019-10-28 08:01] VITALS: BP 123/69
[2019-10-28] MEDS: ACIDOPHILUS/BULGARICUS CHEW TAB GT SCH ×2 (09:18→20:29)
[2019-10-28] MEDS: DESMOPRESSIN 0.1 MG TABLET GT SCH (09:18)
[2019-10-28] MEDS: levETIRAcetam 500 MG/5 ML LIQUID UDC GT SCH ×2 (09:18→20:29)
[2019-10-28] MEDS: PHENYTOIN 100 MG/4 ML UDC GT SCH ×2 (09:18→20:23)
[2019-10-28] MEDS: FUROSEMIDE 20 MG/2 ML GT SCH (09:19)
[2019-10-28] MEDS: TRIAMCINOLONE ACET 0.1% CREAM 15 GM TUBE TP SCH ×2 (09:20→20:29)
[2019-10-28] MEDS: COD LIVER OIL/ZINC OXIDE OINT 113 GM TUBE TOP SCH ×2 (09:20→20:29)
[2019-10-28] MEDS: POTASSIUM CHLORIDE 40 MEQ/30 ML LIQUID UDC GT SCH (09:20)
[2019-10-28] MEDS: HYDROGEN PEROXIDE 3% 118 ML BOTTLE TP SCH ×2 (09:59→21:17)
[2019-10-28 20:00] VITALS: BP 123/81
[2019-10-28] MEDS: FOLIC ACID 1 MG TABLET GT SCH (20:28)
[2019-10-28] MEDS: THIAMINE HCL 100 MG TABLET GT SCH (20:29)
[2019-10-28] MEDS: CHOLECALCIFEROL 1,000 UNIT TABLET GT SCH (20:29)
[2019-10-29] MEDS: IPRATROPIUM BROMIDE 0.5 MG/2.5 ML NEBU NEB SCH ×6 (03:36→22:40)
[2019-10-29] MEDS: ALBUTEROL SULFATE 2.5 MG/3 ML NEBU NEB SCH ×6 (03:36→22:40)
[2019-10-29 05:15] VITALS: BP 134/88
[2019-10-29] MEDS: MIDODRINE HCL 10 MG TABLET GT SCH ×3 (05:32→21:16)
[2019-10-29] MEDS: BACLOFEN 20 MG TABLET GT SCH ×3 (05:33→21:15)
[2019-10-29] MEDS: BACLOFEN 10 MG TABLET GT SCH ×3 (05:33→21:15)
[2019-10-29] MEDS: OMEPRAZOLE 20 MG CAPSULE.DR GT SCH (05:34)
[2019-10-29] MEDS: METOCLOPRAMIDE HCL 5 MG TABLET GT SCH ×3 (05:34→21:15)
[2019-10-29] MEDS: DESMOPRESSIN 0.1 MG TABLET GT SCH (09:22)
[2019-10-29] MEDS: ACIDOPHILUS/BULGARICUS CHEW TAB GT SCH ×2 (09:23→21:14)
[2019-10-29] MEDS: levETIRAcetam 500 MG/5 ML LIQUID UDC GT SCH ×2 (09:24→21:15)
[2019-10-29] MEDS: COD LIVER OIL/ZINC OXIDE OINT 113 GM TUBE TOP SCH ×2 (09:27→21:15)
[2019-10-29] MEDS: POTASSIUM CHLORIDE 40 MEQ/30 ML LIQUID UDC GT SCH (09:27)
[2019-10-29] MEDS: HYDROGEN PEROXIDE 3% 118 ML BOTTLE TP SCH ×2 (09:28→20:20)
[2019-10-29] MEDS: TRIAMCINOLONE ACET 0.1% CREAM 15 GM TUBE TP SCH ×2 (09:28→21:15)
[2019-10-29] MEDS: FUROSEMIDE 20 MG/2 ML GT SCH (09:29)
[2019-10-29] MEDS: PHENYTOIN 100 MG/4 ML UDC GT SCH ×2 (09:33→21:14)
[2019-10-29 12:06] VITALS: BP 123/82
--- NOTE | 2019-10-29 19:05 | NUR ---
Pt received on HT-50 ventilator with the following settings of SIMV-12, Vt-500, PEEP+5, PS-10, FIO2-2LPM bleed in, trached with Shiley#6 DCT trach, which is in the place and secure. No respiratory distress noted. Airway care done, pt responded to physical stimuli. In-line HHN tx with 2.5mg Albuterol+0.5mg Atrovent given, pt tolerated well. HME, Sx Garza and HHN adaptor changed. Resus. bag and back up trach at bedside. Vent and alarms checked and reset.
[2019-10-29 20:15] VITALS: BP 149/84
[2019-10-29] MEDS: FOLIC ACID 1 MG TABLET GT SCH (21:14)
[2019-10-29] MEDS: THIAMINE HCL 100 MG TABLET GT SCH (21:15)
[2019-10-29] MEDS: CHOLECALCIFEROL 1,000 UNIT TABLET GT SCH (21:15)
[2019-10-30] MEDS: ALBUTEROL SULFATE 2.5 MG/3 ML NEBU NEB SCH ×6 (02:40→22:39)
[2019-10-30] MEDS: IPRATROPIUM BROMIDE 0.5 MG/2.5 ML NEBU NEB SCH ×6 (02:40→22:39)
[2019-10-30] MEDS: OMEPRAZOLE 20 MG CAPSULE.DR GT SCH (05:32)
[2019-10-30] MEDS: BACLOFEN 10 MG TABLET GT SCH ×3 (05:32→21:17)
[2019-10-30] MEDS: METOCLOPRAMIDE HCL 5 MG TABLET GT SCH ×3 (05:32→21:17)
[2019-10-30] MEDS: BACLOFEN 20 MG TABLET GT SCH ×3 (05:32→21:17)
[2019-10-30] MEDS: MIDODRINE HCL 10 MG TABLET GT SCH ×3 (05:33→21:18)
[2019-10-30] MEDS: DESMOPRESSIN 0.1 MG TABLET GT SCH (08:00)
[2019-10-30] MEDS: PHENYTOIN 100 MG/4 ML UDC GT SCH ×2 (08:01→21:15)
[2019-10-30] MEDS: levETIRAcetam 500 MG/5 ML LIQUID UDC GT SCH ×2 (08:02→21:16)
[2019-10-30] MEDS: ACIDOPHILUS/BULGARICUS CHEW TAB GT SCH ×2 (08:02→21:16)
[2019-10-30] MEDS: FUROSEMIDE 20 MG/2 ML GT SCH (08:03)
[2019-10-30] MEDS: POTASSIUM CHLORIDE 40 MEQ/30 ML LIQUID UDC GT SCH (08:03)
[2019-10-30] MEDS: TRIAMCINOLONE ACET 0.1% CREAM 15 GM TUBE TP SCH ×2 (08:04→21:15)
[2019-10-30] MEDS: COD LIVER OIL/ZINC OXIDE OINT 113 GM TUBE TOP SCH ×2 (08:04→21:16)
[2019-10-30] MEDS: HYDROGEN PEROXIDE 3% 118 ML BOTTLE TP SCH ×2 (08:34→20:49)
[2019-10-30 11:23] VITALS: BP 141/80
[2019-10-30] MEDS: VITAL AF 1.2 1,000 ML LIQUID GT SCH (16:41)
[2019-10-30] MEDS: FOLIC ACID 1 MG TABLET GT SCH (21:16)
[2019-10-30] MEDS: CHOLECALCIFEROL 1,000 UNIT TABLET GT SCH (21:16)
[2019-10-30] MEDS: THIAMINE HCL 100 MG TABLET GT SCH (21:16)
[2019-10-31] MEDS: ALBUTEROL SULFATE 2.5 MG/3 ML NEBU NEB SCH ×5 (03:15→19:45)
[2019-10-31] MEDS: IPRATROPIUM BROMIDE 0.5 MG/2.5 ML NEBU NEB SCH ×5 (03:15→19:35)
[2019-10-31] MEDS: MIDODRINE HCL 10 MG TABLET GT SCH ×3 (05:25→21:47)
[2019-10-31] MEDS: BACLOFEN 20 MG TABLET GT SCH ×3 (05:25→21:47)
[2019-10-31] MEDS: BACLOFEN 10 MG TABLET GT SCH ×3 (05:25→21:47)
[2019-10-31] MEDS: METOCLOPRAMIDE HCL 5 MG TABLET GT SCH ×3 (05:26→21:48)
[2019-10-31] MEDS: OMEPRAZOLE 20 MG CAPSULE.DR GT SCH (05:26)
[2019-10-31] MEDS: VITAL AF 1.2 1,000 ML LIQUID GT SCH (06:00)
[2019-10-31 07:26] LABS: BASOPHILS % (AUTO) 0.7 % (0.0-2.0); EOSINOPHILS # (AUTO) 0.6 K/uL (0.0-0.7); EOSINOPHILS % (AUTO) 9.3 % (0.0-7.0); HEMATOCRIT 31.2 % (31.2-41.9); HEMOGLOBIN 10.7 g/dL (10.9-14.3); LYMPHOCYTES # (AUTO) 2.2 K/uL (20.0-40.0); LYMPHOCYTES % (AUTO) 34.1 % (20.5-51.5); MEAN CORPUSCULAR HEMOGLOBIN 32.1 uug (24.7-32.8); MEAN CORPUSCULAR HGB CONC 34 g/dL (32.3-35.6); MEAN CORPUSCULAR VOLUME 93.1 fL (75.5-95.3); MONOCYTES # (AUTO) 0.5 K/uL (2.0-10.0); MONOCYTES % (AUTO) 8.4 % (0.0-11.0); NEUTROPHILS % (AUTO) 47.5 % (38.5-71.5); PLATELET COUNT (AUTO) 289 K/uL (179-408); RED BLOOD CELL COUNT(AUTO) 3.35 MIL/uL (3.63-4.92); WHITE BLOOD COUNT (AUTO) 6.4 K/uL (3.8-11.8)
[2019-10-31 07:33] LABS: ALANINE AMINOTRANSFERASE 86 U/L (14-59); ALKALINE PHOSPHATASE 153 U/L (50-136); ASPARTATE AMINOTRANSFERASE 32 U/L (15-37); BILIRUBIN,TOTAL 0.1 mg/dL (0.2-1.0); CARBON DIOXIDE 24 mmol/L (21-32); CHLORIDE 109 mmol/L (98-107); CREATININE 0.5 mg/dL (0.6-1.3); GLUCOSE 90 mg/dL (74-106); POTASSIUM 3.7 mmol/L (3.5-5.1); TOTAL PROTEIN, SERUM 5.5 g/dL (6.4-8.2); UREA NITROGEN, BLOOD 17 mg/dL (7-18)
[2019-10-31] MEDS: ACIDOPHILUS/BULGARICUS CHEW TAB GT SCH ×2 (08:07→21:44)
[2019-10-31] MEDS: PHENYTOIN 100 MG/4 ML UDC GT SCH ×2 (08:07→21:44)
[2019-10-31] MEDS: DESMOPRESSIN 0.1 MG TABLET GT SCH (08:07)
[2019-10-31] MEDS: POTASSIUM CHLORIDE 40 MEQ/30 ML LIQUID UDC GT SCH (08:08)
[2019-10-31] MEDS: TRIAMCINOLONE ACET 0.1% CREAM 15 GM TUBE TP SCH ×2 (08:08→21:47)
[2019-10-31] MEDS: COD LIVER OIL/ZINC OXIDE OINT 113 GM TUBE TOP SCH ×2 (08:08→21:46)
[2019-10-31] MEDS: FUROSEMIDE 20 MG/2 ML GT SCH (08:08)
[2019-10-31] MEDS: levETIRAcetam 500 MG/5 ML LIQUID UDC GT SCH ×2 (08:08→21:45)
[2019-10-31 08:30] VITALS: BP 134/80
[2019-10-31] MEDS: HYDROGEN PEROXIDE 3% 118 ML BOTTLE TP SCH ×2 (09:50→21:36)
[2019-10-31] MEDS: BISACODYL 10 MG SUPP.RECT RC PRN (18:14)
[2019-10-31 20:23] VITALS: BP 111/61
[2019-10-31] MEDS: FOLIC ACID 1 MG TABLET GT SCH (21:45)
[2019-10-31] MEDS: THIAMINE HCL 100 MG TABLET GT SCH (21:46)
[2019-10-31] MEDS: CHOLECALCIFEROL 1,000 UNIT TABLET GT SCH (21:46)
[2019-11-01] MEDS: ALBUTEROL SULFATE 2.5 MG/3 ML NEBU NEB SCH ×6 (00:10→19:48)
[2019-11-01] MEDS: IPRATROPIUM BROMIDE 0.5 MG/2.5 ML NEBU NEB SCH ×6 (00:10→19:48)
[2019-11-01] MEDS: VITAL AF 1.2 1,000 ML LIQUID GT SCH (05:00)
[2019-11-01] MEDS: BACLOFEN 10 MG TABLET GT SCH ×3 (05:50→21:35)
[2019-11-01] MEDS: BACLOFEN 20 MG TABLET GT SCH ×3 (05:50→21:35)
[2019-11-01] MEDS: METOCLOPRAMIDE HCL 5 MG TABLET GT SCH ×3 (05:51→21:36)
[2019-11-01] MEDS: OMEPRAZOLE 20 MG CAPSULE.DR GT SCH (05:51)
[2019-11-01] MEDS: MIDODRINE HCL 10 MG TABLET GT SCH ×3 (05:51→21:35)
[2019-11-01 07:46] VITALS: BP 114/72
[2019-11-01] MEDS: levETIRAcetam 500 MG/5 ML LIQUID UDC GT SCH ×2 (08:02→21:32)
[2019-11-01] MEDS: PHENYTOIN 100 MG/4 ML UDC GT SCH ×2 (08:02→21:29)
[2019-11-01] MEDS: FUROSEMIDE 20 MG/2 ML GT SCH (08:02)
[2019-11-01] MEDS: ACIDOPHILUS/BULGARICUS CHEW TAB GT SCH ×2 (08:02→21:29)
[2019-11-01] MEDS: DESMOPRESSIN 0.1 MG TABLET GT SCH (08:02)
[2019-11-01] MEDS: POTASSIUM CHLORIDE 40 MEQ/30 ML LIQUID UDC GT SCH (08:03)
[2019-11-01] MEDS: COD LIVER OIL/ZINC OXIDE OINT 113 GM TUBE TOP SCH ×2 (08:03→21:35)
[2019-11-01] MEDS: TRIAMCINOLONE ACET 0.1% CREAM 15 GM TUBE TP SCH (09:02)
[2019-11-01] MEDS: HYDROGEN PEROXIDE 3% 118 ML BOTTLE TP SCH ×2 (09:03→21:45)
--- NOTE | 2019-11-01 14:28 | NUR ---
INTERDISCIPLINARY PLAN OF CARE CONFERENCE was held today. Patient's mother was unable to participate in the meeting. Dr. Wagner and the Interdisciplinary Team reviewed the current plan of care in detail. RN reported on patient's medical condition and updates in medications. See RN IDT conference notes. No major changes in condition were reported. See also all other disciplines IDT notes and physician's progress notes for additional details.
--- NOTE | 2019-11-01 15:11 | NUR ---
Pharmacy Update from Today's 11/01/19 IDT Meeting VS: Temp 98.9 BP 114/72 HR 67 LABS: (from 10/31/19) Wbc 6.4 H/H 10.7/31.2 Plt 289 Na 141 K 3.7 Cl 109 CO2 24 BUN/Scr 17/0.5 BS 90 Ca 7.7 (corrected 9.3) MEDICATION USE REVIEWED: > Pt not on any anti-psych medications > Pt on Keppra 1000mg q12h since 04/10/19; CrCl >100ml/min, renal function ok for current dose. No seizure episodes noted since transfer. > Pt on Phenytoin 200mg q12hr Since 07/18/19. Last level per Rx rec on 07/27/19 and resulted within range at 9.9, corrected 13.0 (range 10-20). No seizures noted > Ativan 1mg q6hprn seizures on board. None used since last IDT. No seizures noted > Pt on DDAVP 0.05mg GT daily since 06/22/19 for diabetes insipidus > Continues on metoclopramide 5mg q8h for abdominal distension, h/o gastroparesis, ok per renal function > Continues omeprazole 20mg daily for GI prophylaxis, ok per renal function PRN MED USAGE: (September) Ativan for seizures used x0 Artificial Tears used x0 Bisacodyl Supp used x1 MOM used x1 OTHER ORDERS NOTED: > NA Pt was reviewed and discussed in depth with no medication concerns noted per staff. No further recs at this time as pt remains stable on current regimen. Will continue follow
[2019-11-01 20:19] VITALS: BP 102/62
[2019-11-01] MEDS: FOLIC ACID 1 MG TABLET GT SCH (21:31)
[2019-11-01] MEDS: THIAMINE HCL 100 MG TABLET GT SCH (21:34)
[2019-11-01] MEDS: CHOLECALCIFEROL 1,000 UNIT TABLET GT SCH (21:35)
[2019-11-02] MEDS: IPRATROPIUM BROMIDE 0.5 MG/2.5 ML NEBU NEB SCH ×7 (00:23→22:40)
[2019-11-02] MEDS: ALBUTEROL SULFATE 2.5 MG/3 ML NEBU NEB SCH ×7 (00:23→22:40)
[2019-11-02] MEDS: BACLOFEN 10 MG TABLET GT SCH ×3 (06:15→21:33)
[2019-11-02] MEDS: BACLOFEN 20 MG TABLET GT SCH ×3 (06:15→21:34)
[2019-11-02 06:16] VITALS: BP 100/55
[2019-11-02] MEDS: MIDODRINE HCL 10 MG TABLET GT SCH ×3 (06:16→21:34)
[2019-11-02] MEDS: METOCLOPRAMIDE HCL 5 MG TABLET GT SCH ×3 (06:16→21:34)
[2019-11-02] MEDS: OMEPRAZOLE 20 MG CAPSULE.DR GT SCH (06:16)
[2019-11-02] MEDS: DESMOPRESSIN 0.1 MG TABLET GT SCH (08:17)
[2019-11-02] MEDS: PHENYTOIN 100 MG/4 ML UDC GT SCH ×2 (08:18→21:33)
[2019-11-02] MEDS: ACIDOPHILUS/BULGARICUS CHEW TAB GT SCH ×2 (08:19→21:33)
[2019-11-02] MEDS: levETIRAcetam 500 MG/5 ML LIQUID UDC GT SCH ×2 (08:19→21:33)
[2019-11-02] MEDS: FUROSEMIDE 20 MG/2 ML GT SCH (08:20)
[2019-11-02] MEDS: COD LIVER OIL/ZINC OXIDE OINT 113 GM TUBE TOP SCH ×2 (08:22→21:33)
[2019-11-02] MEDS: POTASSIUM CHLORIDE 40 MEQ/30 ML LIQUID UDC GT SCH (08:22)
[2019-11-02 08:30] VITALS: BP 104/59
[2019-11-02] MEDS: HYDROGEN PEROXIDE 3% 118 ML BOTTLE TP SCH ×2 (09:00→21:50)
--- NOTE | 2019-11-02 19:23 | NUR ---
Pt received on HT-50 ventilator with the following settings of SIMV-12, Vt-500, PEEP+5, PS-10, FIO2-2LPM bleed in, trached with Shiley#6 DCT trach, which is in the place and secure. No distress noted. Airway care done, pt responded to physical stimuli. In-line HHN tx with 2.5mg Albuterol+0.5mg Atrovent given, pt tolerated well. HME changed. Resus. bag and back up trach at bedside. Vent and alarms checked and reset.
[2019-11-02] MEDS: FOLIC ACID 1 MG TABLET GT SCH (21:33)
[2019-11-02] MEDS: CHOLECALCIFEROL 1,000 UNIT TABLET GT SCH (21:33)
[2019-11-02] MEDS: THIAMINE HCL 100 MG TABLET GT SCH (21:33)
[2019-11-02 22:17] VITALS: BP 133/74
[2019-11-03] MEDS: VITAL AF 1.2 1,000 ML LIQUID GT SCH (02:34)
[2019-11-03] MEDS: ALBUTEROL SULFATE 2.5 MG/3 ML NEBU NEB SCH ×6 (02:40→22:44)
[2019-11-03] MEDS: IPRATROPIUM BROMIDE 0.5 MG/2.5 ML NEBU NEB SCH ×6 (02:40→22:44)
[2019-11-03] MEDS: BACLOFEN 20 MG TABLET GT SCH ×3 (05:59→21:42)
[2019-11-03] MEDS: BACLOFEN 10 MG TABLET GT SCH ×3 (05:59→21:42)
[2019-11-03] MEDS: MIDODRINE HCL 10 MG TABLET GT SCH ×3 (05:59→21:42)
[2019-11-03] MEDS: METOCLOPRAMIDE HCL 5 MG TABLET GT SCH ×3 (06:00→21:42)
[2019-11-03] MEDS: OMEPRAZOLE 20 MG CAPSULE.DR GT SCH (06:00)
[2019-11-03 08:00] VITALS: BP 145/89
[2019-11-03] MEDS: ACIDOPHILUS/BULGARICUS CHEW TAB GT SCH ×2 (08:18→21:32)
[2019-11-03] MEDS: FUROSEMIDE 20 MG/2 ML GT SCH (08:18)
[2019-11-03] MEDS: DESMOPRESSIN 0.1 MG TABLET GT SCH (08:18)
[2019-11-03] MEDS: POTASSIUM CHLORIDE 40 MEQ/30 ML LIQUID UDC GT SCH (08:18)
[2019-11-03] MEDS: levETIRAcetam 500 MG/5 ML LIQUID UDC GT SCH ×2 (08:18→21:35)
[2019-11-03] MEDS: PHENYTOIN 100 MG/4 ML UDC GT SCH ×2 (08:18→21:32)
[2019-11-03] MEDS: COD LIVER OIL/ZINC OXIDE OINT 113 GM TUBE TOP SCH ×2 (08:18→21:42)
[2019-11-03] MEDS: HYDROGEN PEROXIDE 3% 118 ML BOTTLE TP SCH ×2 (09:48→20:59)
--- NOTE | 2019-11-03 19:16 | NUR ---
Received pt on HT-50 ventilator with the following settings of SIMV-12, Vt-500, PEEP+5, PS-10, FIO2-2LPM bleed in, trached with Shiley#6 DCT trach, which is in the place and secure. No respiratory distress noted. Airway care done, pt responded to physical stimuli. In-line HHN tx with 2.5mg Albuterol+0.5mg Atrovent given, pt tolerated well. HME changed. Resus. bag and back up trach at bedside. Vent and alarms checked and reset.
[2019-11-03 20:00] VITALS: BP 128/78
[2019-11-03] MEDS: FOLIC ACID 1 MG TABLET GT SCH (21:35)
[2019-11-03] MEDS: CHOLECALCIFEROL 1,000 UNIT TABLET GT SCH (21:42)
[2019-11-03] MEDS: THIAMINE HCL 100 MG TABLET GT SCH (21:42)
[2019-11-04] MEDS: ALBUTEROL SULFATE 2.5 MG/3 ML NEBU NEB SCH ×6 (02:40→23:45)
[2019-11-04] MEDS: IPRATROPIUM BROMIDE 0.5 MG/2.5 ML NEBU NEB SCH ×6 (02:40→23:45)
[2019-11-04] MEDS: VITAL AF 1.2 1,000 ML LIQUID GT SCH ×2 (05:13→21:39)
[2019-11-04] MEDS: MIDODRINE HCL 10 MG TABLET GT SCH ×3 (06:00→21:10)
[2019-11-04] MEDS: BACLOFEN 10 MG TABLET GT SCH ×3 (06:02→21:10)
[2019-11-04] MEDS: BACLOFEN 20 MG TABLET GT SCH ×3 (06:02→21:10)
[2019-11-04] MEDS: OMEPRAZOLE 20 MG CAPSULE.DR GT SCH (06:03)
[2019-11-04] MEDS: METOCLOPRAMIDE HCL 5 MG TABLET GT SCH ×3 (06:03→21:10)
[2019-11-04 08:01] VITALS: BP 98/61
[2019-11-04] MEDS: ACIDOPHILUS/BULGARICUS CHEW TAB GT SCH ×2 (08:21→20:14)
[2019-11-04] MEDS: PHENYTOIN 100 MG/4 ML UDC GT SCH ×2 (08:21→20:14)
[2019-11-04] MEDS: DESMOPRESSIN 0.1 MG TABLET GT SCH (08:21)
[2019-11-04] MEDS: levETIRAcetam 500 MG/5 ML LIQUID UDC GT SCH ×2 (08:21→20:14)
[2019-11-04] MEDS: FUROSEMIDE 20 MG/2 ML GT SCH (08:22)
[2019-11-04] MEDS: POTASSIUM CHLORIDE 40 MEQ/30 ML LIQUID UDC GT SCH (08:22)
[2019-11-04] MEDS: COD LIVER OIL/ZINC OXIDE OINT 113 GM TUBE TOP SCH ×2 (08:22→20:14)
[2019-11-04] MEDS: HYDROGEN PEROXIDE 3% 118 ML BOTTLE TP SCH ×2 (08:30→21:35)
[2019-11-04] MEDS: THIAMINE HCL 100 MG TABLET GT SCH (20:14)
[2019-11-04] MEDS: FOLIC ACID 1 MG TABLET GT SCH (20:14)
[2019-11-04] MEDS: CHOLECALCIFEROL 1,000 UNIT TABLET GT SCH (20:14)
[2019-11-04 21:58] VITALS: BP 103/57
[2019-11-05] MEDS: IPRATROPIUM BROMIDE 0.5 MG/2.5 ML NEBU NEB SCH ×6 (04:21→23:40)
[2019-11-05] MEDS: ALBUTEROL SULFATE 2.5 MG/3 ML NEBU NEB SCH ×6 (04:21→23:40)
[2019-11-05] MEDS: METOCLOPRAMIDE HCL 5 MG TABLET GT SCH ×3 (05:29→21:35)
[2019-11-05] MEDS: OMEPRAZOLE 20 MG CAPSULE.DR GT SCH (05:29)
[2019-11-05] MEDS: BACLOFEN 10 MG TABLET GT SCH ×3 (05:29→21:35)
[2019-11-05] MEDS: BACLOFEN 20 MG TABLET GT SCH ×3 (05:29→21:35)
[2019-11-05] MEDS: MIDODRINE HCL 10 MG TABLET GT SCH ×3 (05:29→21:35)
[2019-11-05 08:00] VITALS: BP 106/64
[2019-11-05] MEDS: DESMOPRESSIN 0.1 MG TABLET GT SCH (08:17)
[2019-11-05] MEDS: ACIDOPHILUS/BULGARICUS CHEW TAB GT SCH ×2 (08:18→20:21)
[2019-11-05] MEDS: PHENYTOIN 100 MG/4 ML UDC GT SCH ×2 (08:18→20:21)
[2019-11-05] MEDS: levETIRAcetam 500 MG/5 ML LIQUID UDC GT SCH ×2 (08:20→20:21)
[2019-11-05] MEDS: POTASSIUM CHLORIDE 40 MEQ/30 ML LIQUID UDC GT SCH (08:20)
[2019-11-05] MEDS: FUROSEMIDE 20 MG/2 ML GT SCH (08:20)
[2019-11-05] MEDS: COD LIVER OIL/ZINC OXIDE OINT 113 GM TUBE TOP SCH ×2 (08:20→20:21)
[2019-11-05] MEDS: HYDROGEN PEROXIDE 3% 118 ML BOTTLE TP SCH ×2 (09:05→21:00)
[2019-11-05 20:00] VITALS: BP 111/60
[2019-11-05] MEDS: FOLIC ACID 1 MG TABLET GT SCH (20:21)
[2019-11-05] MEDS: CHOLECALCIFEROL 1,000 UNIT TABLET GT SCH (20:21)
[2019-11-05] MEDS: THIAMINE HCL 100 MG TABLET GT SCH (20:21)
[2019-11-06] MEDS: IPRATROPIUM BROMIDE 0.5 MG/2.5 ML NEBU NEB SCH ×6 (03:35→23:36)
[2019-11-06] MEDS: ALBUTEROL SULFATE 2.5 MG/3 ML NEBU NEB SCH ×6 (03:35→23:36)
[2019-11-06] MEDS: METOCLOPRAMIDE HCL 5 MG TABLET GT SCH ×3 (05:35→21:25)
[2019-11-06] MEDS: MIDODRINE HCL 10 MG TABLET GT SCH ×3 (05:35→21:25)
[2019-11-06] MEDS: OMEPRAZOLE 20 MG CAPSULE.DR GT SCH (05:35)
[2019-11-06] MEDS: BACLOFEN 20 MG TABLET GT SCH ×3 (05:35→21:25)
[2019-11-06] MEDS: BACLOFEN 10 MG TABLET GT SCH ×3 (05:35→21:25)
[2019-11-06 08:00] VITALS: BP 108/70
[2019-11-06] MEDS: DESMOPRESSIN 0.1 MG TABLET GT SCH (08:47)
[2019-11-06] MEDS: PHENYTOIN 100 MG/4 ML UDC GT SCH ×2 (08:48→20:15)
[2019-11-06] MEDS: ACIDOPHILUS/BULGARICUS CHEW TAB GT SCH ×2 (08:49→20:15)
[2019-11-06] MEDS: levETIRAcetam 500 MG/5 ML LIQUID UDC GT SCH ×2 (08:49→20:15)
[2019-11-06] MEDS: FUROSEMIDE 20 MG/2 ML GT SCH (08:50)
[2019-11-06] MEDS: POTASSIUM CHLORIDE 40 MEQ/30 ML LIQUID UDC GT SCH (08:50)
[2019-11-06] MEDS: COD LIVER OIL/ZINC OXIDE OINT 113 GM TUBE TOP SCH ×2 (08:51→20:15)
[2019-11-06] MEDS: HYDROGEN PEROXIDE 3% 118 ML BOTTLE TP SCH ×2 (08:51→20:59)
[2019-11-06] MEDS: VITAL AF 1.2 1,000 ML LIQUID GT SCH (19:58)
[2019-11-06 20:00] VITALS: BP 113/74
[2019-11-06] MEDS: CHOLECALCIFEROL 1,000 UNIT TABLET GT SCH (20:15)
[2019-11-06] MEDS: FOLIC ACID 1 MG TABLET GT SCH (20:15)
[2019-11-06] MEDS: THIAMINE HCL 100 MG TABLET GT SCH (20:15)
[2019-11-07] MEDS: IPRATROPIUM BROMIDE 0.5 MG/2.5 ML NEBU NEB SCH ×6 (02:41→23:10)
[2019-11-07] MEDS: ALBUTEROL SULFATE 2.5 MG/3 ML NEBU NEB SCH ×6 (02:41→23:10)
[2019-11-07] MEDS: BACLOFEN 20 MG TABLET GT SCH ×3 (05:36→21:42)
[2019-11-07] MEDS: BACLOFEN 10 MG TABLET GT SCH ×3 (05:36→21:42)
[2019-11-07] MEDS: MIDODRINE HCL 10 MG TABLET GT SCH ×3 (05:36→21:43)
[2019-11-07] MEDS: OMEPRAZOLE 20 MG CAPSULE.DR GT SCH (05:37)
[2019-11-07] MEDS: METOCLOPRAMIDE HCL 5 MG TABLET GT SCH ×3 (05:37→21:43)
[2019-11-07] MEDS: HYDROGEN PEROXIDE 3% 118 ML BOTTLE TP SCH ×2 (07:49→21:41)
[2019-11-07 08:00] VITALS: BP 105/61
[2019-11-07] MEDS: DESMOPRESSIN 0.1 MG TABLET GT SCH (08:12)
[2019-11-07] MEDS: PHENYTOIN 100 MG/4 ML UDC GT SCH ×2 (08:12→21:40)
[2019-11-07] MEDS: ACIDOPHILUS/BULGARICUS CHEW TAB GT SCH ×2 (08:12→21:40)
[2019-11-07] MEDS: levETIRAcetam 500 MG/5 ML LIQUID UDC GT SCH ×2 (08:12→21:43)
[2019-11-07] MEDS: POTASSIUM CHLORIDE 40 MEQ/30 ML LIQUID UDC GT SCH (08:13)
[2019-11-07] MEDS: FUROSEMIDE 20 MG/2 ML GT SCH (08:13)
[2019-11-07] MEDS: COD LIVER OIL/ZINC OXIDE OINT 113 GM TUBE TOP SCH ×2 (08:13→21:41)
--- NOTE | 2019-11-07 11:00 | NUR ---
Seen by Marguerite CALVO, with no new order at this time.
[2019-11-07 20:16] VITALS: BP 109/67
[2019-11-07] MEDS: THIAMINE HCL 100 MG TABLET GT SCH (21:40)
[2019-11-07] MEDS: FOLIC ACID 1 MG TABLET GT SCH (21:40)
[2019-11-07] MEDS: CHOLECALCIFEROL 1,000 UNIT TABLET GT SCH (21:41)
[2019-11-08] MEDS: ALBUTEROL SULFATE 2.5 MG/3 ML NEBU NEB SCH ×6 (03:29→22:40)
[2019-11-08] MEDS: IPRATROPIUM BROMIDE 0.5 MG/2.5 ML NEBU NEB SCH ×6 (03:29→22:40)
[2019-11-08] MEDS: BACLOFEN 10 MG TABLET GT SCH ×3 (04:50→21:52)
[2019-11-08] MEDS: BACLOFEN 20 MG TABLET GT SCH ×3 (04:50→21:52)
[2019-11-08] MEDS: MIDODRINE HCL 10 MG TABLET GT SCH ×3 (04:50→21:53)
[2019-11-08] MEDS: OMEPRAZOLE 20 MG CAPSULE.DR GT SCH (04:51)
[2019-11-08] MEDS: METOCLOPRAMIDE HCL 5 MG TABLET GT SCH ×3 (04:51→21:53)
[2019-11-08 07:43] LABS: BASOPHILS # (AUTO) 0.1 K/uL (0.0-8.0); BASOPHILS % (AUTO) 0.6 % (0.0-2.0); EOSINOPHILS # (AUTO) 0.4 K/uL (0.0-0.7); HEMATOCRIT 31.9 % (31.2-41.9); HEMOGLOBIN 10.9 g/dL (10.9-14.3); LYMPHOCYTES % (AUTO) 18.3 % (20.5-51.5); MEAN CORPUSCULAR HEMOGLOBIN 32.6 uug (24.7-32.8); MEAN CORPUSCULAR HGB CONC 34 g/dL (32.3-35.6); MEAN CORPUSCULAR VOLUME 95.5 fL (75.5-95.3); MONOCYTES # (AUTO) 0.6 K/uL (2.0-10.0); MONOCYTES % (AUTO) 5.2 % (0.0-11.0); NEUTROPHILS # (AUTO) 7.8 K/uL (1.8-8.9); NEUTROPHILS % (AUTO) 71.9 % (38.5-71.5); PLATELET COUNT (AUTO) 317 K/uL (179-408); RED BLOOD CELL COUNT(AUTO) 3.34 MIL/uL (3.63-4.92); WHITE BLOOD COUNT (AUTO) 10.8 K/uL (3.8-11.8)
[2019-11-08 07:55] LABS: CARBON DIOXIDE 22 mmol/L (21-32); CHLORIDE 110 mmol/L (98-107); GLUCOSE 112 mg/dL (74-106); PHOSPHOROUS 3.8 mg/dL (2.5-4.9); POTASSIUM 3.2 mmol/L (3.5-5.1)
[2019-11-08 08:02] LABS: UREA NITROGEN, BLOOD 18 mg/dL (7-18)
[2019-11-08 08:04] LABS: CREATININE 0.5 mg/dL (0.6-1.3)
[2019-11-08] MEDS: DESMOPRESSIN 0.1 MG TABLET GT SCH (08:21)
[2019-11-08] MEDS: PHENYTOIN 100 MG/4 ML UDC GT SCH ×2 (08:22→21:52)
[2019-11-08] MEDS: ACIDOPHILUS/BULGARICUS CHEW TAB GT SCH ×2 (08:22→20:17)
[2019-11-08] MEDS: levETIRAcetam 500 MG/5 ML LIQUID UDC GT SCH ×2 (08:23→20:18)
[2019-11-08] MEDS: FUROSEMIDE 20 MG/2 ML GT SCH (08:24)
[2019-11-08] MEDS: POTASSIUM CHLORIDE 40 MEQ/30 ML LIQUID UDC GT SCH (08:24)
[2019-11-08] MEDS: COD LIVER OIL/ZINC OXIDE OINT 113 GM TUBE TOP SCH ×2 (08:24→20:19)
[2019-11-08] MEDS: HYDROGEN PEROXIDE 3% 118 ML BOTTLE TP SCH ×2 (08:51→21:39)
[2019-11-08 09:21] VITALS: BP 99/64
[2019-11-08 20:15] VITALS: BP 109/58
[2019-11-08] MEDS: FOLIC ACID 1 MG TABLET GT SCH (20:17)
[2019-11-08] MEDS: THIAMINE HCL 100 MG TABLET GT SCH (20:18)
[2019-11-08] MEDS: CHOLECALCIFEROL 1,000 UNIT TABLET GT SCH (20:19)
[2019-11-09] MEDS: VITAL AF 1.2 1,000 ML LIQUID GT SCH (00:09)
[2019-11-09] MEDS: ALBUTEROL SULFATE 2.5 MG/3 ML NEBU NEB SCH ×6 (02:54→23:33)
[2019-11-09] MEDS: IPRATROPIUM BROMIDE 0.5 MG/2.5 ML NEBU NEB SCH ×6 (02:54→23:33)
[2019-11-09] MEDS: OMEPRAZOLE 20 MG CAPSULE.DR GT SCH (06:25)
[2019-11-09] MEDS: BACLOFEN 10 MG TABLET GT SCH ×3 (06:25→22:22)
[2019-11-09] MEDS: BACLOFEN 20 MG TABLET GT SCH ×3 (06:25→22:22)
[2019-11-09] MEDS: MIDODRINE HCL 10 MG TABLET GT SCH ×3 (06:25→22:22)
[2019-11-09] MEDS: METOCLOPRAMIDE HCL 5 MG TABLET GT SCH ×3 (06:25→22:23)
[2019-11-09 08:00] VITALS: BP 101/80
[2019-11-09] MEDS: PHENYTOIN 100 MG/4 ML UDC GT SCH ×2 (08:39→20:21)
[2019-11-09] MEDS: POTASSIUM CHLORIDE 40 MEQ/30 ML LIQUID UDC GT SCH (08:39)
[2019-11-09] MEDS: FUROSEMIDE 20 MG/2 ML GT SCH (08:39)
[2019-11-09] MEDS: DESMOPRESSIN 0.1 MG TABLET GT SCH (08:39)
[2019-11-09] MEDS: levETIRAcetam 500 MG/5 ML LIQUID UDC GT SCH ×2 (08:39→20:22)
[2019-11-09] MEDS: COD LIVER OIL/ZINC OXIDE OINT 113 GM TUBE TOP SCH ×2 (08:39→20:23)
[2019-11-09] MEDS: ACIDOPHILUS/BULGARICUS CHEW TAB GT SCH ×2 (08:39→20:21)
[2019-11-09] MEDS: HYDROGEN PEROXIDE 3% 118 ML BOTTLE TP SCH ×2 (09:02→21:00)
[2019-11-09 19:58] VITALS: BP 100/60
[2019-11-09] MEDS: FOLIC ACID 1 MG TABLET GT SCH (20:22)
[2019-11-09] MEDS: THIAMINE HCL 100 MG TABLET GT SCH (20:22)
[2019-11-09] MEDS: CHOLECALCIFEROL 1,000 UNIT TABLET GT SCH (20:22)
[2019-11-10] MEDS: ALBUTEROL SULFATE 2.5 MG/3 ML NEBU NEB SCH ×6 (03:33→23:05)
[2019-11-10] MEDS: IPRATROPIUM BROMIDE 0.5 MG/2.5 ML NEBU NEB SCH ×6 (03:33→23:05)
[2019-11-10] MEDS: BACLOFEN 20 MG TABLET GT SCH ×3 (06:14→22:38)
[2019-11-10] MEDS: METOCLOPRAMIDE HCL 5 MG TABLET GT SCH ×3 (06:14→22:39)
[2019-11-10] MEDS: BACLOFEN 10 MG TABLET GT SCH ×3 (06:14→22:38)
[2019-11-10] MEDS: OMEPRAZOLE 20 MG CAPSULE.DR GT SCH (06:14)
[2019-11-10] MEDS: MIDODRINE HCL 10 MG TABLET GT SCH ×3 (06:14→22:00)
[2019-11-10 07:48] VITALS: BP 110/63
[2019-11-10] MEDS: HYDROGEN PEROXIDE 3% 118 ML BOTTLE TP SCH ×2 (09:00→21:10)
[2019-11-10] MEDS: ACIDOPHILUS/BULGARICUS CHEW TAB GT SCH ×2 (09:17→20:27)
[2019-11-10] MEDS: levETIRAcetam 500 MG/5 ML LIQUID UDC GT SCH ×2 (09:17→20:28)
[2019-11-10] MEDS: PHENYTOIN 100 MG/4 ML UDC GT SCH ×2 (09:17→20:27)
[2019-11-10] MEDS: DESMOPRESSIN 0.1 MG TABLET GT SCH (09:17)
[2019-11-10] MEDS: FUROSEMIDE 20 MG/2 ML GT SCH (09:17)
[2019-11-10] MEDS: POTASSIUM CHLORIDE 40 MEQ/30 ML LIQUID UDC GT SCH (09:17)
[2019-11-10] MEDS: COD LIVER OIL/ZINC OXIDE OINT 113 GM TUBE TOP SCH ×2 (09:17→20:29)
--- NOTE | 2019-11-10 17:00 | NUR ---
SEEN BY AND SHAYLEEO.
[2019-11-10 20:19] VITALS: BP 124/76
[2019-11-10] MEDS: FOLIC ACID 1 MG TABLET GT SCH (20:27)
[2019-11-10] MEDS: THIAMINE HCL 100 MG TABLET GT SCH (20:29)
[2019-11-10] MEDS: CHOLECALCIFEROL 1,000 UNIT TABLET GT SCH (20:29)
[2019-11-11] MEDS: ALBUTEROL SULFATE 2.5 MG/3 ML NEBU NEB SCH ×6 (03:11→23:53)
[2019-11-11] MEDS: IPRATROPIUM BROMIDE 0.5 MG/2.5 ML NEBU NEB SCH ×6 (03:11→23:53)
[2019-11-11] MEDS: BACLOFEN 10 MG TABLET GT SCH ×3 (05:28→21:43)
[2019-11-11] MEDS: MIDODRINE HCL 10 MG TABLET GT SCH ×3 (05:28→21:43)
[2019-11-11] MEDS: BACLOFEN 20 MG TABLET GT SCH ×3 (05:28→21:43)
[2019-11-11] MEDS: METOCLOPRAMIDE HCL 5 MG TABLET GT SCH ×3 (05:28→21:43)
[2019-11-11] MEDS: OMEPRAZOLE 20 MG CAPSULE.DR GT SCH (05:28)
[2019-11-11 08:00] VITALS: BP 107/65
[2019-11-11] MEDS: ACIDOPHILUS/BULGARICUS CHEW TAB GT SCH ×2 (08:00→21:25)
[2019-11-11] MEDS: PHENYTOIN 100 MG/4 ML UDC GT SCH ×2 (08:00→21:29)
[2019-11-11] MEDS: DESMOPRESSIN 0.1 MG TABLET GT SCH (08:00)
[2019-11-11] MEDS: levETIRAcetam 500 MG/5 ML LIQUID UDC GT SCH ×2 (08:01→21:27)
[2019-11-11] MEDS: POTASSIUM CHLORIDE 40 MEQ/30 ML LIQUID UDC GT SCH (08:01)
[2019-11-11] MEDS: COD LIVER OIL/ZINC OXIDE OINT 113 GM TUBE TOP SCH ×2 (08:03→21:27)
[2019-11-11 08:37] LABS: BASOPHILS % (AUTO) 0.6 % (0.0-2.0); EOSINOPHILS # (AUTO) 0.5 K/uL (0.0-0.7); EOSINOPHILS % (AUTO) 7.2 % (0.0-7.0); HEMATOCRIT 29.4 % (31.2-41.9); LYMPHOCYTES # (AUTO) 1.9 K/uL (20.0-40.0); LYMPHOCYTES % (AUTO) 27.1 % (20.5-51.5); MEAN CORPUSCULAR HEMOGLOBIN 32.1 uug (24.7-32.8); MEAN CORPUSCULAR HGB CONC 34 g/dL (32.3-35.6); MEAN CORPUSCULAR VOLUME 94.5 fL (75.5-95.3); MONOCYTES # (AUTO) 0.6 K/uL (2.0-10.0); MONOCYTES % (AUTO) 7.8 % (0.0-11.0); NEUTROPHILS # (AUTO) 4.1 K/uL (1.8-8.9); NEUTROPHILS % (AUTO) 57.3 % (38.5-71.5); PLATELET COUNT (AUTO) 341 K/uL (179-408); RED BLOOD CELL COUNT(AUTO) 3.11 MIL/uL (3.63-4.92)
[2019-11-11 08:50] LABS: CARBON DIOXIDE 20 mmol/L (21-32); CHLORIDE 109 mmol/L (98-107); CREATININE 0.4 mg/dL (0.6-1.3); GLUCOSE 87 mg/dL (74-106); PHOSPHOROUS 3.3 mg/dL (2.5-4.9); POTASSIUM 3.5 mmol/L (3.5-5.1); UREA NITROGEN, BLOOD 13 mg/dL (7-18)
[2019-11-11] MEDS: FUROSEMIDE 20 MG/2 ML GT SCH (09:02)
[2019-11-11 09:09] LABS: WHITE BLOOD COUNT (AUTO) 7.1 K/uL (3.8-11.8)
[2019-11-11] MEDS: HYDROGEN PEROXIDE 3% 118 ML BOTTLE TP SCH ×2 (10:04→21:27)
--- NOTE | 2019-11-11 15:00 | NUR ---
SEEN BY DR. VILLALBA AND WITH NNO.
[2019-11-11 20:00] VITALS: BP 112/68
[2019-11-11] MEDS: FOLIC ACID 1 MG TABLET GT SCH (21:26)
[2019-11-11] MEDS: THIAMINE HCL 100 MG TABLET GT SCH (21:27)
[2019-11-11] MEDS: CHOLECALCIFEROL 1,000 UNIT TABLET GT SCH (21:27)
[2019-11-12] MEDS: IPRATROPIUM BROMIDE 0.5 MG/2.5 ML NEBU NEB SCH ×6 (03:42→22:40)
[2019-11-12] MEDS: ALBUTEROL SULFATE 2.5 MG/3 ML NEBU NEB SCH ×6 (03:42→22:40)
[2019-11-12] MEDS: BACLOFEN 20 MG TABLET GT SCH ×3 (06:15→21:49)
[2019-11-12] MEDS: BACLOFEN 10 MG TABLET GT SCH ×3 (06:15→21:49)
[2019-11-12] MEDS: MIDODRINE HCL 10 MG TABLET GT SCH ×3 (06:16→21:49)
[2019-11-12] MEDS: OMEPRAZOLE 20 MG CAPSULE.DR GT SCH (06:17)
[2019-11-12] MEDS: METOCLOPRAMIDE HCL 5 MG TABLET GT SCH ×3 (06:17→21:49)
[2019-11-12 08:00] VITALS: BP 117/75
[2019-11-12] MEDS: COD LIVER OIL/ZINC OXIDE OINT 113 GM TUBE TOP SCH ×2 (08:03→20:26)
[2019-11-12] MEDS: FUROSEMIDE 20 MG/2 ML GT SCH (08:03)
[2019-11-12] MEDS: PHENYTOIN 100 MG/4 ML UDC GT SCH ×2 (08:03→20:23)
[2019-11-12] MEDS: DESMOPRESSIN 0.1 MG TABLET GT SCH (08:03)
[2019-11-12] MEDS: ACIDOPHILUS/BULGARICUS CHEW TAB GT SCH ×2 (08:03→20:23)
[2019-11-12] MEDS: levETIRAcetam 500 MG/5 ML LIQUID UDC GT SCH ×2 (08:03→20:24)
[2019-11-12] MEDS: POTASSIUM CHLORIDE 40 MEQ/30 ML LIQUID UDC GT SCH (08:03)
[2019-11-12] MEDS: HYDROGEN PEROXIDE 3% 118 ML BOTTLE TP SCH ×2 (08:40→21:23)
--- NOTE | 2019-11-12 19:20 | NUR ---
Received pt on HT-50 ventilator with the following settings of SIMV-12, Vt-500, PEEP+5, PS-10, FIO2-2LPM bleed in, trached with Shiley#6 DCT trach, which is in the place and secure. No s/s of respiratory distress noted. Airway care done, pt responded to physical stimuli. In-line HHN tx with 2.5mg Albuterol+0.5mg Atrovent given, pt tolerated well. HME, Sx Garza and HHN adaptor changed. Resus. bag and back up trach at bedside. Vent and alarms checked and reset.
[2019-11-12 20:00] VITALS: BP 113/74
[2019-11-12] MEDS: FOLIC ACID 1 MG TABLET GT SCH (20:24)
[2019-11-12] MEDS: THIAMINE HCL 100 MG TABLET GT SCH (20:25)
[2019-11-12] MEDS: CHOLECALCIFEROL 1,000 UNIT TABLET GT SCH (20:25)
[2019-11-13] MEDS: IPRATROPIUM BROMIDE 0.5 MG/2.5 ML NEBU NEB SCH ×6 (02:40→22:50)
[2019-11-13] MEDS: ALBUTEROL SULFATE 2.5 MG/3 ML NEBU NEB SCH ×6 (02:40→22:50)
[2019-11-13] MEDS: MIDODRINE HCL 10 MG TABLET GT SCH ×3 (05:18→21:18)
[2019-11-13] MEDS: BACLOFEN 20 MG TABLET GT SCH ×3 (05:18→21:17)
[2019-11-13] MEDS: OMEPRAZOLE 20 MG CAPSULE.DR GT SCH (05:18)
[2019-11-13] MEDS: BACLOFEN 10 MG TABLET GT SCH ×3 (05:18→21:17)
[2019-11-13] MEDS: METOCLOPRAMIDE HCL 5 MG TABLET GT SCH ×3 (05:19→21:18)
[2019-11-13 08:02] VITALS: BP 94/57
[2019-11-13] MEDS: HYDROGEN PEROXIDE 3% 118 ML BOTTLE TP SCH ×2 (09:00→21:07)
[2019-11-13] MEDS: DESMOPRESSIN 0.1 MG TABLET GT SCH (09:23)
[2019-11-13] MEDS: PHENYTOIN 100 MG/4 ML UDC GT SCH ×2 (09:24→21:16)
[2019-11-13] MEDS: ACIDOPHILUS/BULGARICUS CHEW TAB GT SCH ×2 (09:24→21:16)
[2019-11-13] MEDS: levETIRAcetam 500 MG/5 ML LIQUID UDC GT SCH ×2 (09:24→21:16)
[2019-11-13] MEDS: POTASSIUM CHLORIDE 40 MEQ/30 ML LIQUID UDC GT SCH (09:25)
[2019-11-13] MEDS: FUROSEMIDE 20 MG/2 ML GT SCH (09:25)
[2019-11-13] MEDS: COD LIVER OIL/ZINC OXIDE OINT 113 GM TUBE TOP SCH ×2 (09:26→21:17)
[2019-11-13] MEDS: VITAL AF 1.2 1,000 ML LIQUID GT SCH (18:14)
[2019-11-13] MEDS: CHOLECALCIFEROL 1,000 UNIT TABLET GT SCH (21:16)
[2019-11-13] MEDS: FOLIC ACID 1 MG TABLET GT SCH (21:16)
[2019-11-13] MEDS: THIAMINE HCL 100 MG TABLET GT SCH (21:16)
[2019-11-14] MEDS: IPRATROPIUM BROMIDE 0.5 MG/2.5 ML NEBU NEB SCH ×6 (03:20→23:22)
[2019-11-14] MEDS: ALBUTEROL SULFATE 2.5 MG/3 ML NEBU NEB SCH ×6 (03:20→23:22)
[2019-11-14] MEDS: BACLOFEN 10 MG TABLET GT SCH ×3 (05:30→22:54)
[2019-11-14] MEDS: MIDODRINE HCL 10 MG TABLET GT SCH ×3 (05:30→22:00)
[2019-11-14] MEDS: METOCLOPRAMIDE HCL 5 MG TABLET GT SCH ×3 (05:30→22:54)
[2019-11-14] MEDS: BACLOFEN 20 MG TABLET GT SCH ×3 (05:30→22:56)
[2019-11-14] MEDS: OMEPRAZOLE 20 MG CAPSULE.DR GT SCH (05:30)
[2019-11-14 07:42] LABS: BASOPHILS % (AUTO) 0.4 % (0.0-2.0); EOSINOPHILS # (AUTO) 0.4 K/uL (0.0-0.7); EOSINOPHILS % (AUTO) 3.5 % (0.0-7.0); HEMATOCRIT 30.5 % (31.2-41.9); HEMOGLOBIN 10.6 g/dL (10.9-14.3); LYMPHOCYTES # (AUTO) 1.5 K/uL (20.0-40.0); LYMPHOCYTES % (AUTO) 13.8 % (20.5-51.5); MEAN CORPUSCULAR HEMOGLOBIN 32.2 uug (24.7-32.8); MEAN CORPUSCULAR HGB CONC 35 g/dL (32.3-35.6); MEAN CORPUSCULAR VOLUME 92.4 fL (75.5-95.3); MONOCYTES # (AUTO) 0.7 K/uL (2.0-10.0); MONOCYTES % (AUTO) 6.1 % (0.0-11.0); NEUTROPHILS # (AUTO) 8.1 K/uL (1.8-8.9); NEUTROPHILS % (AUTO) 76.2 % (38.5-71.5); PLATELET COUNT (AUTO) 339 K/uL (179-408)
[2019-11-14 07:44] LABS: ALANINE AMINOTRANSFERASE 132 U/L (14-59); ALKALINE PHOSPHATASE 186 U/L (50-136); ASPARTATE AMINOTRANSFERASE 54 U/L (15-37); BILIRUBIN,TOTAL 0.1 mg/dL (0.2-1.0); CARBON DIOXIDE 21 mmol/L (21-32); CHLORIDE 106 mmol/L (98-107); CREATININE 0.4 mg/dL (0.6-1.3); GLUCOSE 91 mg/dL (74-106); POTASSIUM 3.4 mmol/L (3.5-5.1); TOTAL PROTEIN, SERUM 6.3 g/dL (6.4-8.2); UREA NITROGEN, BLOOD 19 mg/dL (7-18)
--- NOTE | 2019-11-14 07:48 | NUR ---
PT. OBSERVED WITH FUNGAL REDNESS AND WITH NEW ORDER CARRIED OUT FROM DR. GARCIA .
[2019-11-14 07:52] LABS: WHITE BLOOD COUNT (AUTO) 10.7 K/uL (3.8-11.8)
[2019-11-14 07:59] VITALS: BP 111/51
[2019-11-14] MEDS: PHENYTOIN 100 MG/4 ML UDC GT SCH ×2 (08:07→21:00)
[2019-11-14] MEDS: FUROSEMIDE 20 MG/2 ML GT SCH (08:07)
[2019-11-14] MEDS: DESMOPRESSIN 0.1 MG TABLET GT SCH (08:07)
[2019-11-14] MEDS: POTASSIUM CHLORIDE 40 MEQ/30 ML LIQUID UDC GT SCH (08:07)
[2019-11-14] MEDS: levETIRAcetam 500 MG/5 ML LIQUID UDC GT SCH ×2 (08:07→21:00)
[2019-11-14] MEDS: ACIDOPHILUS/BULGARICUS CHEW TAB GT SCH ×2 (08:07→21:00)
[2019-11-14] MEDS: COD LIVER OIL/ZINC OXIDE OINT 113 GM TUBE TOP SCH ×2 (08:08→21:00)
[2019-11-14] MEDS: HYDROGEN PEROXIDE 3% 118 ML BOTTLE TP SCH ×2 (09:21→21:41)
--- NOTE | 2019-11-14 11:15 | NUR ---
NEW ORDER CARRIED OUT FROM DR. GARCIA DUE TO K = 3.4 TODAY .
--- NOTE | 2019-11-14 12:25 | NUR ---
SEEN AND EXAMINED BY EMMY Agustin AND WITH NEW ORDER.
--- NOTE | 2019-11-14 15:23 | NUR ---
SEEN BY DR.SAM BELL AND WITH NNO.
[2019-11-14] MEDS: VITAMINS A AND D OINT TP SCH (15:43)
[2019-11-14] MEDS: VITAL AF 1.2 1,000 ML LIQUID GT SCH (17:32)
[2019-11-14 20:41] VITALS: BP 99/60
[2019-11-14] MEDS: NYSTATIN CREAM 30 GM TUBE TP SCH ×2 (21:00)
[2019-11-14] MEDS: CHOLECALCIFEROL 1,000 UNIT TABLET GT SCH (21:00)
[2019-11-14] MEDS: FOLIC ACID 1 MG TABLET GT SCH (21:00)
[2019-11-14] MEDS: THIAMINE HCL 100 MG TABLET GT SCH (21:00)
[2019-11-15] MEDS: ALBUTEROL SULFATE 2.5 MG/3 ML NEBU NEB SCH ×6 (04:13→22:37)
[2019-11-15] MEDS: IPRATROPIUM BROMIDE 0.5 MG/2.5 ML NEBU NEB SCH ×6 (04:13→22:37)
[2019-11-15] MEDS: MIDODRINE HCL 10 MG TABLET GT SCH ×3 (06:00→21:36)
[2019-11-15] MEDS: BACLOFEN 10 MG TABLET GT SCH ×3 (06:37→21:34)
[2019-11-15] MEDS: METOCLOPRAMIDE HCL 5 MG TABLET GT SCH ×3 (06:37→21:36)
[2019-11-15] MEDS: OMEPRAZOLE 20 MG CAPSULE.DR GT SCH (06:37)
[2019-11-15] MEDS: BACLOFEN 20 MG TABLET GT SCH ×3 (06:37→21:34)
[2019-11-15 07:27] VITALS: BP 101/61
[2019-11-15] MEDS: DESMOPRESSIN 0.1 MG TABLET GT SCH (08:14)
[2019-11-15] MEDS: ACIDOPHILUS/BULGARICUS CHEW TAB GT SCH ×2 (08:15→21:32)
[2019-11-15] MEDS: PHENYTOIN 100 MG/4 ML UDC GT SCH ×2 (08:15→21:31)
[2019-11-15] MEDS: POTASSIUM CHLORIDE 40 MEQ/30 ML LIQUID UDC GT SCH (08:16)
[2019-11-15] MEDS: levETIRAcetam 500 MG/5 ML LIQUID UDC GT SCH ×2 (08:17→21:33)
[2019-11-15] MEDS: FUROSEMIDE 20 MG/2 ML GT SCH (08:17)
[2019-11-15] MEDS: COD LIVER OIL/ZINC OXIDE OINT 113 GM TUBE TOP SCH ×2 (08:17→21:34)
[2019-11-15] MEDS: NYSTATIN CREAM 30 GM TUBE TP SCH ×4 (08:18→21:34)
[2019-11-15] MEDS: VITAMINS A AND D OINT TP SCH (08:19)
[2019-11-15] MEDS: HYDROGEN PEROXIDE 3% 118 ML BOTTLE TP SCH ×2 (09:00→20:40)
[2019-11-15 20:39] VITALS: BP 106/63
[2019-11-15] MEDS: FOLIC ACID 1 MG TABLET GT SCH (21:32)
[2019-11-15] MEDS: CHOLECALCIFEROL 1,000 UNIT TABLET GT SCH (21:33)
[2019-11-15] MEDS: THIAMINE HCL 100 MG TABLET GT SCH (21:33)
[2019-11-16] MEDS: ALBUTEROL SULFATE 2.5 MG/3 ML NEBU NEB SCH ×6 (03:05→22:40)
[2019-11-16] MEDS: IPRATROPIUM BROMIDE 0.5 MG/2.5 ML NEBU NEB SCH ×6 (03:05→22:40)
[2019-11-16] MEDS: BACLOFEN 20 MG TABLET GT SCH ×3 (06:11→21:40)
[2019-11-16] MEDS: BACLOFEN 10 MG TABLET GT SCH ×3 (06:11→21:40)
[2019-11-16] MEDS: METOCLOPRAMIDE HCL 5 MG TABLET GT SCH ×3 (06:12→21:41)
[2019-11-16] MEDS: OMEPRAZOLE 20 MG CAPSULE.DR GT SCH (06:12)
[2019-11-16] MEDS: MIDODRINE HCL 10 MG TABLET GT SCH ×3 (06:12→21:41)
[2019-11-16] MEDS: DESMOPRESSIN 0.1 MG TABLET GT SCH (08:24)
[2019-11-16] MEDS: PHENYTOIN 100 MG/4 ML UDC GT SCH ×2 (08:24→21:36)
[2019-11-16] MEDS: levETIRAcetam 500 MG/5 ML LIQUID UDC GT SCH ×2 (08:25→21:39)
[2019-11-16] MEDS: ACIDOPHILUS/BULGARICUS CHEW TAB GT SCH ×2 (08:25→21:37)
[2019-11-16] MEDS: POTASSIUM CHLORIDE 40 MEQ/30 ML LIQUID UDC GT SCH (08:26)
[2019-11-16] MEDS: FUROSEMIDE 20 MG/2 ML GT SCH (08:26)
[2019-11-16] MEDS: VITAMINS A AND D OINT TP SCH (08:27)
[2019-11-16] MEDS: NYSTATIN CREAM 30 GM TUBE TP SCH ×4 (08:27→21:40)
[2019-11-16] MEDS: COD LIVER OIL/ZINC OXIDE OINT 113 GM TUBE TOP SCH ×2 (08:27→21:40)
[2019-11-16] MEDS: VITAL AF 1.2 1,000 ML LIQUID GT SCH (08:28)
[2019-11-16] MEDS: HYDROGEN PEROXIDE 3% 118 ML BOTTLE TP SCH ×2 (09:00→21:42)
--- NOTE | 2019-11-16 10:38 | NUR ---
PATIENT CONTINUES WITH TX FOR FUNGAL REDNESS ON BUTTOCK AND PERINEAL, SITE KEPT CLEAN AND DRY.
[2019-11-16 20:04] VITALS: BP 123/76
[2019-11-16] MEDS: THIAMINE HCL 100 MG TABLET GT SCH (21:38)
[2019-11-16] MEDS: FOLIC ACID 1 MG TABLET GT SCH (21:38)
[2019-11-16] MEDS: CHOLECALCIFEROL 1,000 UNIT TABLET GT SCH (21:40)
[2019-11-17] MEDS: IPRATROPIUM BROMIDE 0.5 MG/2.5 ML NEBU NEB SCH ×6 (02:40→23:12)
[2019-11-17] MEDS: ALBUTEROL SULFATE 2.5 MG/3 ML NEBU NEB SCH ×6 (02:40→23:12)
[2019-11-17] MEDS: BACLOFEN 20 MG TABLET GT SCH ×3 (05:41→21:20)
[2019-11-17] MEDS: MIDODRINE HCL 10 MG TABLET GT SCH ×3 (05:41→21:21)
[2019-11-17] MEDS: BACLOFEN 10 MG TABLET GT SCH ×3 (05:41→21:20)
[2019-11-17] MEDS: METOCLOPRAMIDE HCL 5 MG TABLET GT SCH ×3 (05:42→21:21)
[2019-11-17] MEDS: OMEPRAZOLE 20 MG CAPSULE.DR GT SCH (05:42)
[2019-11-17 07:26] VITALS: BP 99/66
[2019-11-17] MEDS: DESMOPRESSIN 0.1 MG TABLET GT SCH (08:12)
[2019-11-17] MEDS: PHENYTOIN 100 MG/4 ML UDC GT SCH ×2 (08:12→21:16)
[2019-11-17] MEDS: ACIDOPHILUS/BULGARICUS CHEW TAB GT SCH ×2 (08:12→21:16)
[2019-11-17] MEDS: VITAMINS A AND D OINT TP SCH (08:13)
[2019-11-17] MEDS: COD LIVER OIL/ZINC OXIDE OINT 113 GM TUBE TOP SCH ×2 (08:13→21:20)
[2019-11-17] MEDS: FUROSEMIDE 20 MG/2 ML GT SCH (08:13)
[2019-11-17] MEDS: NYSTATIN CREAM 30 GM TUBE TP SCH ×4 (08:13→21:20)
[2019-11-17] MEDS: levETIRAcetam 500 MG/5 ML LIQUID UDC GT SCH ×2 (08:13→21:19)
[2019-11-17] MEDS: POTASSIUM CHLORIDE 40 MEQ/30 ML LIQUID UDC GT SCH (08:13)
[2019-11-17] MEDS: HYDROGEN PEROXIDE 3% 118 ML BOTTLE TP SCH ×2 (09:00→21:26)
[2019-11-17 20:00] VITALS: BP 107/56
[2019-11-17] MEDS: THIAMINE HCL 100 MG TABLET GT SCH (21:19)
[2019-11-17] MEDS: FOLIC ACID 1 MG TABLET GT SCH (21:19)
[2019-11-17] MEDS: CHOLECALCIFEROL 1,000 UNIT TABLET GT SCH (21:20)
[2019-11-18] MEDS: ALBUTEROL SULFATE 2.5 MG/3 ML NEBU NEB SCH ×5 (03:14→19:00)
[2019-11-18] MEDS: IPRATROPIUM BROMIDE 0.5 MG/2.5 ML NEBU NEB SCH ×5 (03:14→19:00)
[2019-11-18] MEDS: BACLOFEN 20 MG TABLET GT SCH ×3 (06:00→21:09)
[2019-11-18] MEDS: BACLOFEN 10 MG TABLET GT SCH ×3 (06:00→21:09)
[2019-11-18] MEDS: METOCLOPRAMIDE HCL 5 MG TABLET GT SCH ×3 (06:01→21:10)
[2019-11-18] MEDS: MIDODRINE HCL 10 MG TABLET GT SCH ×3 (06:01→21:10)
[2019-11-18] MEDS: OMEPRAZOLE 20 MG CAPSULE.DR GT SCH (06:01)
[2019-11-18 07:14] LABS: BASOPHILS % (AUTO) 0.5 % (0.0-2.0); EOSINOPHILS # (AUTO) 0.4 K/uL (0.0-0.7); EOSINOPHILS % (AUTO) 3.6 % (0.0-7.0); HEMATOCRIT 31.1 % (31.2-41.9); HEMOGLOBIN 10.8 g/dL (10.9-14.3); LYMPHOCYTES % (AUTO) 20.8 % (20.5-51.5); MEAN CORPUSCULAR HEMOGLOBIN 32.1 uug (24.7-32.8); MEAN CORPUSCULAR HGB CONC 35 g/dL (32.3-35.6); MEAN CORPUSCULAR VOLUME 92.2 fL (75.5-95.3); MONOCYTES # (AUTO) 0.5 K/uL (2.0-10.0); NEUTROPHILS # (AUTO) 6.8 K/uL (1.8-8.9); NEUTROPHILS % (AUTO) 70.1 % (38.5-71.5); PLATELET COUNT (AUTO) 369 K/uL (179-408); RED BLOOD CELL COUNT(AUTO) 3.37 MIL/uL (3.63-4.92); WHITE BLOOD COUNT (AUTO) 9.7 K/uL (3.8-11.8)
[2019-11-18 07:19] LABS: BILIRUBIN,TOTAL 0.1 mg/dL (0.2-1.0); CREATININE 0.7 mg/dL (0.6-1.3); POTASSIUM 3.7 mmol/L (3.5-5.1); TOTAL PROTEIN, SERUM 6.4 g/dL (6.4-8.2)
[2019-11-18 07:38] VITALS: BP 110/68
[2019-11-18] MEDS: HYDROGEN PEROXIDE 3% 118 ML BOTTLE TP SCH ×2 (08:17→21:27)
[2019-11-18] MEDS: PHENYTOIN 100 MG/4 ML UDC GT SCH ×2 (08:20→20:33)
[2019-11-18] MEDS: DESMOPRESSIN 0.1 MG TABLET GT SCH (08:20)
[2019-11-18] MEDS: ACIDOPHILUS/BULGARICUS CHEW TAB GT SCH ×2 (08:21→20:33)
[2019-11-18] MEDS: levETIRAcetam 500 MG/5 ML LIQUID UDC GT SCH ×2 (08:21→20:33)
[2019-11-18] MEDS: POTASSIUM CHLORIDE 40 MEQ/30 ML LIQUID UDC GT SCH (08:23)
[2019-11-18] MEDS: FUROSEMIDE 20 MG/2 ML GT SCH (08:23)
[2019-11-18] MEDS: NYSTATIN CREAM 30 GM TUBE TP SCH ×4 (08:24→20:33)
[2019-11-18] MEDS: COD LIVER OIL/ZINC OXIDE OINT 113 GM TUBE TOP SCH ×2 (08:24→20:33)
[2019-11-18] MEDS: VITAMINS A AND D OINT TP SCH (08:24)
[2019-11-18] MEDS: THIAMINE HCL 100 MG TABLET GT SCH (20:33)
[2019-11-18] MEDS: CHOLECALCIFEROL 1,000 UNIT TABLET GT SCH (20:33)
[2019-11-18] MEDS: FOLIC ACID 1 MG TABLET GT SCH (20:33)
[2019-11-18 22:00] VITALS: BP 100/61
[2019-11-19] MEDS: ALBUTEROL SULFATE 2.5 MG/3 ML NEBU NEB SCH ×7 (00:24→22:35)
[2019-11-19] MEDS: IPRATROPIUM BROMIDE 0.5 MG/2.5 ML NEBU NEB SCH ×7 (00:24→22:35)
[2019-11-19] MEDS: VITAL AF 1.2 1,000 ML LIQUID GT SCH (03:38)
[2019-11-19] MEDS: BACLOFEN 10 MG TABLET GT SCH ×3 (05:27→21:02)
[2019-11-19] MEDS: BACLOFEN 20 MG TABLET GT SCH ×3 (05:27→21:02)
[2019-11-19] MEDS: METOCLOPRAMIDE HCL 5 MG TABLET GT SCH ×3 (05:28→21:06)
[2019-11-19] MEDS: MIDODRINE HCL 10 MG TABLET GT SCH ×3 (05:28→21:06)
[2019-11-19] MEDS: OMEPRAZOLE 20 MG CAPSULE.DR GT SCH (05:28)
[2019-11-19 07:48] VITALS: BP 101/69
[2019-11-19] MEDS: COD LIVER OIL/ZINC OXIDE OINT 113 GM TUBE TOP SCH ×2 (08:46→21:02)
[2019-11-19] MEDS: levETIRAcetam 500 MG/5 ML LIQUID UDC GT SCH ×2 (08:46→21:01)
[2019-11-19] MEDS: PHENYTOIN 100 MG/4 ML UDC GT SCH ×2 (08:46→21:01)
[2019-11-19] MEDS: NYSTATIN CREAM 30 GM TUBE TP SCH ×4 (08:46→21:02)
[2019-11-19] MEDS: POTASSIUM CHLORIDE 40 MEQ/30 ML LIQUID UDC GT SCH (08:46)
[2019-11-19] MEDS: DESMOPRESSIN 0.1 MG TABLET GT SCH (08:46)
[2019-11-19] MEDS: FUROSEMIDE 20 MG/2 ML GT SCH (08:46)
[2019-11-19] MEDS: ACIDOPHILUS/BULGARICUS CHEW TAB GT SCH ×2 (08:46→21:01)
[2019-11-19] MEDS: VITAMINS A AND D OINT TP SCH (08:47)
[2019-11-19] MEDS: HYDROGEN PEROXIDE 3% 118 ML BOTTLE TP SCH ×2 (09:00→19:32)
[2019-11-19] MEDS: BISACODYL 10 MG SUPP.RECT RC PRN (17:23)
[2019-11-19 20:02] VITALS: BP 97/64
[2019-11-19] MEDS: FOLIC ACID 1 MG TABLET GT SCH (21:01)
[2019-11-19] MEDS: THIAMINE HCL 100 MG TABLET GT SCH (21:01)
[2019-11-19] MEDS: CHOLECALCIFEROL 1,000 UNIT TABLET GT SCH (21:02)
[2019-11-20] MEDS: IPRATROPIUM BROMIDE 0.5 MG/2.5 ML NEBU NEB SCH ×6 (02:36→23:18)
[2019-11-20] MEDS: ALBUTEROL SULFATE 2.5 MG/3 ML NEBU NEB SCH ×6 (02:36→23:18)
[2019-11-20] MEDS: BACLOFEN 20 MG TABLET GT SCH ×3 (05:25→21:03)
[2019-11-20] MEDS: BACLOFEN 10 MG TABLET GT SCH ×3 (05:25→21:03)
[2019-11-20] MEDS: MIDODRINE HCL 10 MG TABLET GT SCH ×3 (05:26→21:04)
[2019-11-20] MEDS: OMEPRAZOLE 20 MG CAPSULE.DR GT SCH (05:26)
[2019-11-20] MEDS: METOCLOPRAMIDE HCL 5 MG TABLET GT SCH ×3 (05:26→21:04)
[2019-11-20 08:00] VITALS: BP 118/72
[2019-11-20] MEDS: DESMOPRESSIN 0.1 MG TABLET GT SCH (08:03)
[2019-11-20] MEDS: PHENYTOIN 100 MG/4 ML UDC GT SCH ×2 (08:04→20:14)
[2019-11-20] MEDS: ACIDOPHILUS/BULGARICUS CHEW TAB GT SCH ×2 (08:04→20:14)
[2019-11-20] MEDS: levETIRAcetam 500 MG/5 ML LIQUID UDC GT SCH ×2 (08:04→20:14)
[2019-11-20] MEDS: FUROSEMIDE 20 MG/2 ML GT SCH (08:05)
[2019-11-20] MEDS: COD LIVER OIL/ZINC OXIDE OINT 113 GM TUBE TOP SCH ×2 (08:07→20:14)
[2019-11-20] MEDS: POTASSIUM CHLORIDE 40 MEQ/30 ML LIQUID UDC GT SCH (08:07)
[2019-11-20] MEDS: HYDROGEN PEROXIDE 3% 118 ML BOTTLE TP SCH ×2 (08:11→21:11)
[2019-11-20] MEDS: NYSTATIN CREAM 30 GM TUBE TP SCH ×4 (08:11→20:15)
[2019-11-20] MEDS: VITAMINS A AND D OINT TP SCH (08:12)
[2019-11-20] MEDS: VITAL AF 1.2 1,000 ML LIQUID GT SCH (18:01)
[2019-11-20] MEDS: CHOLECALCIFEROL 1,000 UNIT TABLET GT SCH (20:14)
[2019-11-20] MEDS: FOLIC ACID 1 MG TABLET GT SCH (20:14)
[2019-11-20] MEDS: THIAMINE HCL 100 MG TABLET GT SCH (20:14)
[2019-11-20 20:20] VITALS: BP 109/71
[2019-11-21] MEDS: ALBUTEROL SULFATE 2.5 MG/3 ML NEBU NEB SCH ×6 (03:20→23:02)
[2019-11-21] MEDS: IPRATROPIUM BROMIDE 0.5 MG/2.5 ML NEBU NEB SCH ×6 (03:20→23:02)
[2019-11-21] MEDS: BACLOFEN 20 MG TABLET GT SCH ×3 (05:11→22:12)
[2019-11-21] MEDS: BACLOFEN 10 MG TABLET GT SCH ×3 (05:11→22:12)
[2019-11-21] MEDS: MIDODRINE HCL 10 MG TABLET GT SCH ×3 (05:11→22:12)
[2019-11-21] MEDS: OMEPRAZOLE 20 MG CAPSULE.DR GT SCH (05:12)
[2019-11-21] MEDS: METOCLOPRAMIDE HCL 5 MG TABLET GT SCH ×3 (05:12→22:13)
[2019-11-21 07:27] VITALS: BP 106/67
[2019-11-21] MEDS: DESMOPRESSIN 0.1 MG TABLET GT SCH (08:51)
[2019-11-21] MEDS: FUROSEMIDE 20 MG/2 ML GT SCH (08:51)
[2019-11-21] MEDS: levETIRAcetam 500 MG/5 ML LIQUID UDC GT SCH ×2 (08:51→20:56)
[2019-11-21] MEDS: PHENYTOIN 100 MG/4 ML UDC GT SCH ×2 (08:51→20:53)
[2019-11-21] MEDS: ACIDOPHILUS/BULGARICUS CHEW TAB GT SCH ×2 (08:51→20:53)
[2019-11-21] MEDS: COD LIVER OIL/ZINC OXIDE OINT 113 GM TUBE TOP SCH ×2 (08:53→20:57)
[2019-11-21] MEDS: NYSTATIN CREAM 30 GM TUBE TP SCH ×2 (08:53)
[2019-11-21] MEDS: VITAMINS A AND D OINT TP SCH (08:53)
[2019-11-21] MEDS: POTASSIUM CHLORIDE 40 MEQ/30 ML LIQUID UDC GT SCH (08:53)
[2019-11-21] MEDS: HYDROGEN PEROXIDE 3% 118 ML BOTTLE TP SCH ×2 (08:59→21:35)
--- NOTE | 2019-11-21 11:30 | NUR ---
Seen by Marguerite RUEDA with no new order.
[2019-11-21 20:23] VITALS: BP 107/60
[2019-11-21] MEDS: FOLIC ACID 1 MG TABLET GT SCH (20:53)
[2019-11-21] MEDS: THIAMINE HCL 100 MG TABLET GT SCH (20:56)
[2019-11-21] MEDS: CHOLECALCIFEROL 1,000 UNIT TABLET GT SCH (20:56)
[2019-11-22] MEDS: ALBUTEROL SULFATE 2.5 MG/3 ML NEBU NEB SCH ×6 (02:52→22:40)
[2019-11-22] MEDS: IPRATROPIUM BROMIDE 0.5 MG/2.5 ML NEBU NEB SCH ×6 (02:52→22:40)
[2019-11-22] MEDS: BACLOFEN 20 MG TABLET GT SCH ×3 (05:22→21:58)
[2019-11-22] MEDS: BACLOFEN 10 MG TABLET GT SCH ×3 (05:22→21:58)
[2019-11-22] MEDS: MIDODRINE HCL 10 MG TABLET GT SCH ×3 (05:23→21:58)
[2019-11-22] MEDS: METOCLOPRAMIDE HCL 5 MG TABLET GT SCH ×3 (05:23→21:58)
[2019-11-22] MEDS: OMEPRAZOLE 20 MG CAPSULE.DR GT SCH (05:23)
[2019-11-22 07:13] VITALS: BP 95/52
[2019-11-22] MEDS: HYDROGEN PEROXIDE 3% 118 ML BOTTLE TP SCH ×2 (08:29→21:11)
[2019-11-22] MEDS: POTASSIUM CHLORIDE 40 MEQ/30 ML LIQUID UDC GT SCH (09:06)
[2019-11-22] MEDS: DESMOPRESSIN 0.1 MG TABLET GT SCH (09:06)
[2019-11-22] MEDS: FUROSEMIDE 20 MG/2 ML GT SCH (09:06)
[2019-11-22] MEDS: levETIRAcetam 500 MG/5 ML LIQUID UDC GT SCH ×2 (09:06→20:14)
[2019-11-22] MEDS: ACIDOPHILUS/BULGARICUS CHEW TAB GT SCH ×2 (09:06→20:13)
[2019-11-22] MEDS: PHENYTOIN 100 MG/4 ML UDC GT SCH ×2 (09:06→20:20)
[2019-11-22] MEDS: COD LIVER OIL/ZINC OXIDE OINT 113 GM TUBE TOP SCH ×2 (09:07→20:15)
[2019-11-22] MEDS: VITAMINS A AND D OINT TP SCH (09:07)
--- NOTE | 2019-11-22 13:00 | NUR ---
Face time done with pt's mom.
--- NOTE | 2019-11-22 19:06 | NUR ---
Received pt on HT-50 ventilator with the following settings of SIMV-12, Vt-500, PEEP+5, PS-10, FIO2-2LPM bleed in, trached with Shiley#6 DCT trach, which is in the place and secure. No SOB noted. Airway care done, pt responded to physical stimuli. In-line HHN tx with 2.5mg Albuterol+0.5mg Atrovent given, pt tolerated well. HME changed. Resus. bag and back up trach at bedside. Vent and alarms checked and reset.
[2019-11-22] MEDS: FOLIC ACID 1 MG TABLET GT SCH (20:13)
[2019-11-22] MEDS: THIAMINE HCL 100 MG TABLET GT SCH (20:14)
[2019-11-22] MEDS: CHOLECALCIFEROL 1,000 UNIT TABLET GT SCH (20:15)
[2019-11-22 20:33] VITALS: BP 90/50
[2019-11-23] MEDS: IPRATROPIUM BROMIDE 0.5 MG/2.5 ML NEBU NEB SCH ×6 (02:42→22:36)
[2019-11-23] MEDS: ALBUTEROL SULFATE 2.5 MG/3 ML NEBU NEB SCH ×6 (02:42→22:36)
[2019-11-23] MEDS: MIDODRINE HCL 10 MG TABLET GT SCH ×3 (05:24→22:28)
[2019-11-23] MEDS: OMEPRAZOLE 20 MG CAPSULE.DR GT SCH (05:24)
[2019-11-23] MEDS: METOCLOPRAMIDE HCL 5 MG TABLET GT SCH ×3 (05:24→22:29)
[2019-11-23] MEDS: BACLOFEN 10 MG TABLET GT SCH ×3 (05:24→22:28)
[2019-11-23] MEDS: BACLOFEN 20 MG TABLET GT SCH ×3 (05:24→22:28)
[2019-11-23] MEDS: HYDROGEN PEROXIDE 3% 118 ML BOTTLE TP SCH ×2 (07:30→19:07)
[2019-11-23 07:32] VITALS: BP 131/79
[2019-11-23] MEDS: PHENYTOIN 100 MG/4 ML UDC GT SCH ×2 (09:13→20:23)
[2019-11-23] MEDS: DESMOPRESSIN 0.1 MG TABLET GT SCH (09:13)
[2019-11-23] MEDS: ACIDOPHILUS/BULGARICUS CHEW TAB GT SCH ×2 (09:17→20:23)
[2019-11-23] MEDS: FUROSEMIDE 20 MG/2 ML GT SCH (09:18)
[2019-11-23] MEDS: levETIRAcetam 500 MG/5 ML LIQUID UDC GT SCH ×2 (09:18→20:26)
[2019-11-23] MEDS: POTASSIUM CHLORIDE 40 MEQ/30 ML LIQUID UDC GT SCH (09:28)
[2019-11-23] MEDS: VITAMINS A AND D OINT TP SCH (09:29)
[2019-11-23] MEDS: COD LIVER OIL/ZINC OXIDE OINT 113 GM TUBE TOP SCH ×2 (09:29→20:29)
[2019-11-23] MEDS: FOLIC ACID 1 MG TABLET GT SCH (20:26)
[2019-11-23] MEDS: THIAMINE HCL 100 MG TABLET GT SCH (20:27)
[2019-11-23] MEDS: CHOLECALCIFEROL 1,000 UNIT TABLET GT SCH (20:29)
[2019-11-23 20:40] VITALS: BP 105/65
[2019-11-24] MEDS: ALBUTEROL SULFATE 2.5 MG/3 ML NEBU NEB SCH ×6 (02:33→22:40)
[2019-11-24] MEDS: IPRATROPIUM BROMIDE 0.5 MG/2.5 ML NEBU NEB SCH ×6 (02:33→22:40)
[2019-11-24] MEDS: MIDODRINE HCL 10 MG TABLET GT SCH ×3 (05:28→22:16)
[2019-11-24] MEDS: METOCLOPRAMIDE HCL 5 MG TABLET GT SCH ×3 (05:28→22:16)
[2019-11-24] MEDS: OMEPRAZOLE 20 MG CAPSULE.DR GT SCH (05:28)
[2019-11-24] MEDS: BACLOFEN 10 MG TABLET GT SCH ×3 (05:28→22:15)
[2019-11-24] MEDS: BACLOFEN 20 MG TABLET GT SCH ×3 (05:28→22:15)
[2019-11-24 07:25] VITALS: BP 135/80
[2019-11-24] MEDS: DESMOPRESSIN 0.1 MG TABLET GT SCH (08:07)
[2019-11-24] MEDS: PHENYTOIN 100 MG/4 ML UDC GT SCH ×2 (08:08→21:00)
[2019-11-24] MEDS: ACIDOPHILUS/BULGARICUS CHEW TAB GT SCH ×2 (08:09→20:20)
[2019-11-24] MEDS: levETIRAcetam 500 MG/5 ML LIQUID UDC GT SCH ×2 (08:09→20:24)
[2019-11-24] MEDS: POTASSIUM CHLORIDE 40 MEQ/30 ML LIQUID UDC GT SCH (08:10)
[2019-11-24] MEDS: COD LIVER OIL/ZINC OXIDE OINT 113 GM TUBE TOP SCH ×2 (08:10→20:24)
[2019-11-24] MEDS: FUROSEMIDE 20 MG/2 ML GT SCH (08:10)
[2019-11-24] MEDS: VITAMINS A AND D OINT TP SCH (08:11)
[2019-11-24] MEDS: HYDROGEN PEROXIDE 3% 118 ML BOTTLE TP SCH ×2 (09:40→18:59)
[2019-11-24] MEDS: FOLIC ACID 1 MG TABLET GT SCH (20:22)
[2019-11-24] MEDS: THIAMINE HCL 100 MG TABLET GT SCH (20:24)
[2019-11-24] MEDS: CHOLECALCIFEROL 1,000 UNIT TABLET GT SCH (20:24)
[2019-11-24 20:39] VITALS: BP 97/52
[2019-11-25] MEDS: IPRATROPIUM BROMIDE 0.5 MG/2.5 ML NEBU NEB SCH ×6 (03:35→22:33)
[2019-11-25] MEDS: ALBUTEROL SULFATE 2.5 MG/3 ML NEBU NEB SCH ×6 (03:35→22:33)
[2019-11-25] MEDS: BACLOFEN 20 MG TABLET GT SCH ×3 (05:28→21:52)
[2019-11-25] MEDS: BACLOFEN 10 MG TABLET GT SCH ×3 (05:28→21:54)
[2019-11-25] MEDS: MIDODRINE HCL 10 MG TABLET GT SCH ×3 (05:29→21:53)
[2019-11-25] MEDS: OMEPRAZOLE 20 MG CAPSULE.DR GT SCH (05:29)
[2019-11-25] MEDS: METOCLOPRAMIDE HCL 5 MG TABLET GT SCH ×3 (05:29→21:53)
[2019-11-25 07:28] VITALS: BP 101/61
[2019-11-25] MEDS: HYDROGEN PEROXIDE 3% 118 ML BOTTLE TP SCH ×2 (07:52→19:01)
[2019-11-25] MEDS: POTASSIUM CHLORIDE 40 MEQ/30 ML LIQUID UDC GT SCH (08:45)
[2019-11-25] MEDS: VITAMINS A AND D OINT TP SCH (08:45)
[2019-11-25] MEDS: DESMOPRESSIN 0.1 MG TABLET GT SCH (08:45)
[2019-11-25] MEDS: ACIDOPHILUS/BULGARICUS CHEW TAB GT SCH ×2 (08:45→20:46)
[2019-11-25] MEDS: PHENYTOIN 100 MG/4 ML UDC GT SCH ×2 (08:45→20:46)
[2019-11-25] MEDS: COD LIVER OIL/ZINC OXIDE OINT 113 GM TUBE TOP SCH ×2 (08:45→20:48)
[2019-11-25] MEDS: levETIRAcetam 500 MG/5 ML LIQUID UDC GT SCH ×2 (08:45→20:46)
[2019-11-25] MEDS: FUROSEMIDE 20 MG/2 ML GT SCH (08:45)
--- NOTE | 2019-11-25 11:45 | NUR ---
JOSUÉ sent patient family off premise service representative Mahamed an email informing her that effective immediately, all video chats with the patient will be done through ZOOM. JOSUÉ asked Mahamed to inform patient's mother Anamaria about this change.
--- NOTE | 2019-11-25 14:11 | NUR ---
PT'S MOTHER WAS ABLE TO SEE HER DTR. WITH ZOOM VIA I PAD .
[2019-11-25] MEDS: FOLIC ACID 1 MG TABLET GT SCH (20:46)
[2019-11-25] MEDS: CHOLECALCIFEROL 1,000 UNIT TABLET GT SCH (20:47)
[2019-11-25] MEDS: THIAMINE HCL 100 MG TABLET GT SCH (20:47)
[2019-11-25 22:47] VITALS: BP 136/62
[2019-11-25 22:54] VITALS: BP 109/65
[2019-11-26] MEDS: IPRATROPIUM BROMIDE 0.5 MG/2.5 ML NEBU NEB SCH ×6 (02:35→23:05)
[2019-11-26] MEDS: ALBUTEROL SULFATE 2.5 MG/3 ML NEBU NEB SCH ×6 (02:35→23:06)
[2019-11-26] MEDS: BACLOFEN 10 MG TABLET GT SCH ×3 (05:33→21:37)
[2019-11-26] MEDS: BACLOFEN 20 MG TABLET GT SCH ×3 (05:33→21:37)
[2019-11-26] MEDS: METOCLOPRAMIDE HCL 5 MG TABLET GT SCH ×3 (05:34→21:37)
[2019-11-26] MEDS: OMEPRAZOLE 20 MG CAPSULE.DR GT SCH (05:34)
[2019-11-26] MEDS: MIDODRINE HCL 10 MG TABLET GT SCH ×3 (06:12→21:38)
[2019-11-26] MEDS: HYDROGEN PEROXIDE 3% 118 ML BOTTLE TP SCH ×2 (07:32→21:16)
[2019-11-26 07:33] VITALS: BP 110/63
[2019-11-26] MEDS: POTASSIUM CHLORIDE 40 MEQ/30 ML LIQUID UDC GT SCH (08:05)
[2019-11-26] MEDS: levETIRAcetam 500 MG/5 ML LIQUID UDC GT SCH ×2 (08:05→21:36)
[2019-11-26] MEDS: ACIDOPHILUS/BULGARICUS CHEW TAB GT SCH ×2 (08:05→21:32)
[2019-11-26] MEDS: PHENYTOIN 100 MG/4 ML UDC GT SCH ×2 (08:05→21:32)
[2019-11-26] MEDS: VITAMINS A AND D OINT TP SCH (08:05)
[2019-11-26] MEDS: FUROSEMIDE 20 MG/2 ML GT SCH (08:05)
[2019-11-26] MEDS: DESMOPRESSIN 0.1 MG TABLET GT SCH (08:05)
[2019-11-26] MEDS: COD LIVER OIL/ZINC OXIDE OINT 113 GM TUBE TOP SCH ×2 (08:05→21:37)
[2019-11-26] MEDS: FOLIC ACID 1 MG TABLET GT SCH (21:36)
[2019-11-26] MEDS: THIAMINE HCL 100 MG TABLET GT SCH (21:36)
[2019-11-26] MEDS: CHOLECALCIFEROL 1,000 UNIT TABLET GT SCH (21:37)
[2019-11-26 22:11] VITALS: BP 103/61
[2019-11-27] MEDS: IPRATROPIUM BROMIDE 0.5 MG/2.5 ML NEBU NEB SCH ×6 (03:00→23:15)
[2019-11-27] MEDS: ALBUTEROL SULFATE 2.5 MG/3 ML NEBU NEB SCH ×6 (03:00→23:15)
[2019-11-27] MEDS: BACLOFEN 10 MG TABLET GT SCH ×3 (05:43→22:14)
[2019-11-27] MEDS: MIDODRINE HCL 10 MG TABLET GT SCH ×3 (05:43→22:14)
[2019-11-27] MEDS: BACLOFEN 20 MG TABLET GT SCH ×3 (05:43→22:14)
[2019-11-27] MEDS: METOCLOPRAMIDE HCL 5 MG TABLET GT SCH ×3 (05:45→22:14)
[2019-11-27] MEDS: OMEPRAZOLE 20 MG CAPSULE.DR GT SCH (05:45)
[2019-11-27 07:53] VITALS: BP 101/59
[2019-11-27] MEDS: DESMOPRESSIN 0.1 MG TABLET GT SCH (08:16)
[2019-11-27] MEDS: FUROSEMIDE 20 MG/2 ML GT SCH (08:17)
[2019-11-27] MEDS: PHENYTOIN 100 MG/4 ML UDC GT SCH ×2 (08:17→20:37)
[2019-11-27] MEDS: ACIDOPHILUS/BULGARICUS CHEW TAB GT SCH ×2 (08:17→20:38)
[2019-11-27] MEDS: levETIRAcetam 500 MG/5 ML LIQUID UDC GT SCH ×2 (08:17→20:38)
[2019-11-27] MEDS: VITAMINS A AND D OINT TP SCH (08:18)
[2019-11-27] MEDS: COD LIVER OIL/ZINC OXIDE OINT 113 GM TUBE TOP SCH ×2 (08:18→20:40)
[2019-11-27] MEDS: POTASSIUM CHLORIDE 40 MEQ/30 ML LIQUID UDC GT SCH (08:18)
[2019-11-27] MEDS: HYDROGEN PEROXIDE 3% 118 ML BOTTLE TP SCH ×2 (09:50→21:38)
[2019-11-27] MEDS: VITAL AF 1.2 1,000 ML LIQUID GT SCH (14:52)
[2019-11-27] MEDS: FOLIC ACID 1 MG TABLET GT SCH (20:38)
[2019-11-27] MEDS: CHOLECALCIFEROL 1,000 UNIT TABLET GT SCH (20:40)
[2019-11-27] MEDS: THIAMINE HCL 100 MG TABLET GT SCH (20:40)
[2019-11-27 22:46] VITALS: BP 94/62
[2019-11-28] MEDS: ALBUTEROL SULFATE 2.5 MG/3 ML NEBU NEB SCH ×6 (03:12→22:49)
[2019-11-28] MEDS: IPRATROPIUM BROMIDE 0.5 MG/2.5 ML NEBU NEB SCH ×6 (03:12→22:49)
[2019-11-28] MEDS: METOCLOPRAMIDE HCL 5 MG TABLET GT SCH ×3 (05:42→22:10)
[2019-11-28] MEDS: MIDODRINE HCL 10 MG TABLET GT SCH ×3 (05:42→22:10)
[2019-11-28] MEDS: BACLOFEN 10 MG TABLET GT SCH ×3 (05:42→22:10)
[2019-11-28] MEDS: OMEPRAZOLE 20 MG CAPSULE.DR GT SCH (05:42)
[2019-11-28] MEDS: BACLOFEN 20 MG TABLET GT SCH ×3 (05:42→22:10)
[2019-11-28] MEDS: VITAL AF 1.2 1,000 ML LIQUID GT SCH (06:46)
[2019-11-28 07:33] VITALS: BP 95/58
[2019-11-28] MEDS: ACIDOPHILUS/BULGARICUS CHEW TAB GT SCH ×2 (09:00→20:43)
[2019-11-28] MEDS: VITAMINS A AND D OINT TP SCH (09:00)
[2019-11-28] MEDS: DESMOPRESSIN 0.1 MG TABLET GT SCH (09:00)
[2019-11-28] MEDS: levETIRAcetam 500 MG/5 ML LIQUID UDC GT SCH ×2 (09:00→20:43)
[2019-11-28] MEDS: PHENYTOIN 100 MG/4 ML UDC GT SCH ×2 (09:00→20:43)
[2019-11-28] MEDS: HYDROGEN PEROXIDE 3% 118 ML BOTTLE TP SCH ×2 (09:00→20:55)
[2019-11-28] MEDS: COD LIVER OIL/ZINC OXIDE OINT 113 GM TUBE TOP SCH ×2 (09:00→20:48)
[2019-11-28] MEDS: POTASSIUM CHLORIDE 40 MEQ/30 ML LIQUID UDC GT SCH (09:00)
[2019-11-28] MEDS: FUROSEMIDE 20 MG/2 ML GT SCH (09:00)
--- NOTE | 2019-11-28 12:00 | NUR ---
SEEN BY EMMY Agusitn AND WITH NNO.
[2019-11-28 20:00] VITALS: BP 108/67
[2019-11-28] MEDS: THIAMINE HCL 100 MG TABLET GT SCH (20:43)
[2019-11-28] MEDS: FOLIC ACID 1 MG TABLET GT SCH (20:43)
[2019-11-28] MEDS: CHOLECALCIFEROL 1,000 UNIT TABLET GT SCH (20:48)
[2019-11-29] MEDS: IPRATROPIUM BROMIDE 0.5 MG/2.5 ML NEBU NEB SCH ×6 (03:09→23:12)
[2019-11-29] MEDS: ALBUTEROL SULFATE 2.5 MG/3 ML NEBU NEB SCH ×6 (03:09→23:12)
[2019-11-29] MEDS: BACLOFEN 10 MG TABLET GT SCH ×3 (05:39→21:21)
[2019-11-29] MEDS: BACLOFEN 20 MG TABLET GT SCH ×3 (05:39→21:21)
[2019-11-29] MEDS: METOCLOPRAMIDE HCL 5 MG TABLET GT SCH ×3 (05:40→21:22)
[2019-11-29] MEDS: OMEPRAZOLE 20 MG CAPSULE.DR GT SCH (05:40)
[2019-11-29] MEDS: MIDODRINE HCL 10 MG TABLET GT SCH ×3 (05:40→21:22)
[2019-11-29 07:29] VITALS: BP 104/64
[2019-11-29] MEDS: HYDROGEN PEROXIDE 3% 118 ML BOTTLE TP SCH ×2 (09:06→20:41)
[2019-11-29] MEDS: ACIDOPHILUS/BULGARICUS CHEW TAB GT SCH ×2 (09:27→21:19)
[2019-11-29] MEDS: DESMOPRESSIN 0.1 MG TABLET GT SCH (09:27)
[2019-11-29] MEDS: PHENYTOIN 100 MG/4 ML UDC GT SCH ×2 (09:27→21:19)
[2019-11-29] MEDS: levETIRAcetam 500 MG/5 ML LIQUID UDC GT SCH ×2 (09:29→21:20)
[2019-11-29] MEDS: POTASSIUM CHLORIDE 40 MEQ/30 ML LIQUID UDC GT SCH (09:30)
[2019-11-29] MEDS: COD LIVER OIL/ZINC OXIDE OINT 113 GM TUBE TOP SCH ×2 (09:30→21:21)
[2019-11-29] MEDS: FUROSEMIDE 20 MG/2 ML GT SCH (09:30)
--- NOTE | 2019-11-29 12:54 | NUR ---
INTERDISCIPLINARY PLAN OF CARE CONFERENCE was held today. Patient's mother was not available to participate in the meeting. Dr. Wagner and the Interdisciplinary Team reviewed the current plan of care in detail. RN reported on patient's current medical condition. No major changes in condition were reported. See RN IDT conference notes. See all also other disciplines IDT notes and physician's progress notes for additional details.
--- NOTE | 2019-11-29 14:52 | NUR ---
Pharmacy Update from Today's 11/29/19 IDT Meeting VS: Temp 98.2 BP 104/64 HR 82 LABS: (from 11/18/19) Wbc 9.7 H/H 10.8/31.1 Plt 369 Na 138 K 3.7 Cl 106 CO2 24 BUN/Scr 17/0.7 BS 90 Ca 8.4 MEDICATION USE REVIEWED: > Pt not on any anti-psych medications > Pt on Keppra 1000mg q12h since 04/10/19; CrCl >100ml/min, renal function ok for current dose. No seizure episodes noted since transfer. > Pt on Phenytoin 200mg q12hr Since 07/18/19. Last level per Rx rec on 07/27/19 and resulted within range at 9.9, corrected 13.0 (range 10-20). No seizures noted > Ativan 1mg q6hprn seizures on board. None used since last IDT. No seizures noted > Pt on DDAVP 0.05mg GT daily since 06/22/19 for diabetes insipidus > Continues on metoclopramide 5mg q8h for abdominal distension, h/o gastroparesis, ok per renal function > Continues omeprazole 20mg daily for GI prophylaxis, ok per renal function PRN MED USAGE: (October) Tylenol for pain/temp used x1 Artificial Tears used x0 Bisacodyl Supp used x2 MOM used x0 OTHER ORDERS NOTED: > KCl 40meq x 1 via GT 11/07 for hypokalemia/supplementation per labs > KCl 20meq x 1 via GT 11/13 for hypokalemia/supplementation per labs > Vitamin A & D ointment to lower lip tear 11/13-11/27 treatment completed Pt was reviewed and discussed in depth with no medication concerns noted per staff. No further recs at this time as pt remains stable on current regimen and no changes in condition noted. Will continue follow
--- NOTE | 2019-11-29 19:30 | NUR ---
PT RECEIVED ON CONTINUOUS VENT, TRACH IN PLACE PATENT AND SECURE WITH TRACH TIE. AMBU BAG AND BACK-UP TRACH AT BEDSIDE. TRACH CARE DONE. IN LINE TX GIVEN WITH UD ALBUTEROL+ UD ATROVENT ORDERED. SUCTION PRN. VENT ALARMS AUDIBLE, CHECKED AND RESET. NO DISTRESS NOTED AT THIS TIME. WILL CONTINUE TO MONITOR.
[2019-11-29 20:00] VITALS: BP 106/65
[2019-11-29] MEDS: FOLIC ACID 1 MG TABLET GT SCH (21:20)
[2019-11-29] MEDS: THIAMINE HCL 100 MG TABLET GT SCH (21:21)
[2019-11-29] MEDS: CHOLECALCIFEROL 1,000 UNIT TABLET GT SCH (21:21)
[2019-11-30] MEDS: ALBUTEROL SULFATE 2.5 MG/3 ML NEBU NEB SCH ×6 (03:11→22:40)
[2019-11-30] MEDS: IPRATROPIUM BROMIDE 0.5 MG/2.5 ML NEBU NEB SCH ×6 (03:11→22:40)
[2019-11-30] MEDS: BACLOFEN 20 MG TABLET GT SCH ×3 (05:18→22:03)
[2019-11-30] MEDS: OMEPRAZOLE 20 MG CAPSULE.DR GT SCH (05:18)
[2019-11-30] MEDS: METOCLOPRAMIDE HCL 5 MG TABLET GT SCH ×3 (05:18→22:02)
[2019-11-30] MEDS: MIDODRINE HCL 10 MG TABLET GT SCH ×3 (05:18→22:00)
[2019-11-30] MEDS: BACLOFEN 10 MG TABLET GT SCH ×3 (05:18→22:03)
[2019-11-30] MEDS: VITAL AF 1.2 1,000 ML LIQUID GT SCH (06:54)
[2019-11-30 07:38] VITALS: BP 110/60
[2019-11-30] MEDS: HYDROGEN PEROXIDE 3% 118 ML BOTTLE TP SCH ×2 (08:18→21:47)
[2019-11-30] MEDS: DESMOPRESSIN 0.1 MG TABLET GT SCH (08:59)
[2019-11-30] MEDS: PHENYTOIN 100 MG/4 ML UDC GT SCH ×2 (09:00→21:00)
[2019-11-30] MEDS: ACIDOPHILUS/BULGARICUS CHEW TAB GT SCH ×2 (09:01→21:51)
[2019-11-30] MEDS: levETIRAcetam 500 MG/5 ML LIQUID UDC GT SCH ×2 (09:01→21:00)
[2019-11-30] MEDS: POTASSIUM CHLORIDE 40 MEQ/30 ML LIQUID UDC GT SCH (09:02)
[2019-11-30] MEDS: FUROSEMIDE 20 MG/2 ML GT SCH (09:02)
[2019-11-30] MEDS: COD LIVER OIL/ZINC OXIDE OINT 113 GM TUBE TOP SCH ×2 (09:03→21:00)
[2019-11-30 20:00] VITALS: BP 121/73
[2019-11-30] MEDS: CHOLECALCIFEROL 1,000 UNIT TABLET GT SCH (21:00)
[2019-11-30] MEDS: THIAMINE HCL 100 MG TABLET GT SCH (21:00)
[2019-11-30] MEDS: FOLIC ACID 1 MG TABLET GT SCH (21:00)
[2019-12-01] MEDS: IPRATROPIUM BROMIDE 0.5 MG/2.5 ML NEBU NEB SCH ×6 (02:40→23:12)
[2019-12-01] MEDS: ALBUTEROL SULFATE 2.5 MG/3 ML NEBU NEB SCH ×6 (02:40→23:12)
[2019-12-01] MEDS: BACLOFEN 10 MG TABLET GT SCH ×3 (06:20→22:01)
[2019-12-01] MEDS: BACLOFEN 20 MG TABLET GT SCH ×3 (06:20→22:01)
[2019-12-01] MEDS: OMEPRAZOLE 20 MG CAPSULE.DR GT SCH (06:21)
[2019-12-01] MEDS: METOCLOPRAMIDE HCL 5 MG TABLET GT SCH ×3 (06:21→22:01)
[2019-12-01] MEDS: MIDODRINE HCL 10 MG TABLET GT SCH ×3 (06:30→22:01)
[2019-12-01] MEDS: VITAL AF 1.2 1,000 ML LIQUID GT SCH (06:34)
[2019-12-01 07:34] VITALS: BP 100/62
[2019-12-01] MEDS: DESMOPRESSIN 0.1 MG TABLET GT SCH (09:19)
[2019-12-01] MEDS: PHENYTOIN 100 MG/4 ML UDC GT SCH ×2 (09:19→20:41)
[2019-12-01] MEDS: FUROSEMIDE 20 MG/2 ML GT SCH (09:21)
[2019-12-01] MEDS: POTASSIUM CHLORIDE 40 MEQ/30 ML LIQUID UDC GT SCH (09:21)
[2019-12-01] MEDS: levETIRAcetam 500 MG/5 ML LIQUID UDC GT SCH ×2 (09:21→20:42)
[2019-12-01] MEDS: ACIDOPHILUS/BULGARICUS CHEW TAB GT SCH ×2 (09:21→20:41)
[2019-12-01] MEDS: COD LIVER OIL/ZINC OXIDE OINT 113 GM TUBE TOP SCH ×2 (09:22→20:43)
[2019-12-01] MEDS: HYDROGEN PEROXIDE 3% 118 ML BOTTLE TP SCH ×2 (09:39→21:40)
[2019-12-01 20:05] VITALS: BP 111/65
[2019-12-01] MEDS: FOLIC ACID 1 MG TABLET GT SCH (20:42)
[2019-12-01] MEDS: THIAMINE HCL 100 MG TABLET GT SCH (20:43)
[2019-12-01] MEDS: CHOLECALCIFEROL 1,000 UNIT TABLET GT SCH (20:43)
[2019-12-02] MEDS: IPRATROPIUM BROMIDE 0.5 MG/2.5 ML NEBU NEB SCH ×6 (03:17→23:14)
[2019-12-02] MEDS: ALBUTEROL SULFATE 2.5 MG/3 ML NEBU NEB SCH ×6 (03:17→23:14)
[2019-12-02] MEDS: METOCLOPRAMIDE HCL 5 MG TABLET GT SCH ×3 (05:47→22:06)
[2019-12-02] MEDS: BACLOFEN 20 MG TABLET GT SCH ×3 (05:47→22:05)
[2019-12-02] MEDS: OMEPRAZOLE 20 MG CAPSULE.DR GT SCH (05:47)
[2019-12-02] MEDS: MIDODRINE HCL 10 MG TABLET GT SCH ×3 (05:47→22:06)
[2019-12-02] MEDS: BACLOFEN 10 MG TABLET GT SCH ×3 (05:47→22:05)
[2019-12-02 07:37] VITALS: BP 116/76
[2019-12-02] MEDS: HYDROGEN PEROXIDE 3% 118 ML BOTTLE TP SCH ×2 (09:00→21:06)
[2019-12-02] MEDS: ACIDOPHILUS/BULGARICUS CHEW TAB GT SCH ×2 (09:21→20:46)
[2019-12-02] MEDS: PHENYTOIN 100 MG/4 ML UDC GT SCH ×2 (09:21→20:46)
[2019-12-02] MEDS: DESMOPRESSIN 0.1 MG TABLET GT SCH (09:21)
[2019-12-02] MEDS: POTASSIUM CHLORIDE 40 MEQ/30 ML LIQUID UDC GT SCH (09:22)
[2019-12-02] MEDS: COD LIVER OIL/ZINC OXIDE OINT 113 GM TUBE TOP SCH ×2 (09:22→20:46)
[2019-12-02] MEDS: levETIRAcetam 500 MG/5 ML LIQUID UDC GT SCH ×2 (09:22→20:46)
[2019-12-02] MEDS: FUROSEMIDE 20 MG/2 ML GT SCH (09:22)
--- NOTE | 2019-12-02 15:45 | NUR ---
ZOOM meeting provided to mom and child.
[2019-12-02 20:18] VITALS: BP 99/56
[2019-12-02] MEDS: CHOLECALCIFEROL 1,000 UNIT TABLET GT SCH (20:46)
[2019-12-02] MEDS: THIAMINE HCL 100 MG TABLET GT SCH (20:46)
[2019-12-02] MEDS: FOLIC ACID 1 MG TABLET GT SCH (20:46)
[2019-12-03] MEDS: ALBUTEROL SULFATE 2.5 MG/3 ML NEBU NEB SCH ×6 (03:19→22:40)
[2019-12-03] MEDS: IPRATROPIUM BROMIDE 0.5 MG/2.5 ML NEBU NEB SCH ×6 (03:19→22:40)
[2019-12-03] MEDS: METOCLOPRAMIDE HCL 5 MG TABLET GT SCH ×3 (05:14→21:42)
[2019-12-03] MEDS: OMEPRAZOLE 20 MG CAPSULE.DR GT SCH (05:14)
[2019-12-03] MEDS: BACLOFEN 20 MG TABLET GT SCH ×3 (05:14→21:42)
[2019-12-03] MEDS: MIDODRINE HCL 10 MG TABLET GT SCH ×3 (05:14→21:42)
[2019-12-03] MEDS: BACLOFEN 10 MG TABLET GT SCH ×3 (05:14→21:42)
[2019-12-03] MEDS: HYDROGEN PEROXIDE 3% 118 ML BOTTLE TP SCH ×2 (07:14→21:30)
[2019-12-03 08:00] VITALS: BP 124/79
[2019-12-03] MEDS: POTASSIUM CHLORIDE 40 MEQ/30 ML LIQUID UDC GT SCH (09:02)
[2019-12-03] MEDS: DESMOPRESSIN 0.1 MG TABLET GT SCH (09:02)
[2019-12-03] MEDS: PHENYTOIN 100 MG/4 ML UDC GT SCH ×2 (09:02→21:41)
[2019-12-03] MEDS: levETIRAcetam 500 MG/5 ML LIQUID UDC GT SCH ×2 (09:02→21:41)
[2019-12-03] MEDS: ACIDOPHILUS/BULGARICUS CHEW TAB GT SCH ×2 (09:02→21:41)
[2019-12-03] MEDS: FUROSEMIDE 20 MG/2 ML GT SCH (09:02)
[2019-12-03] MEDS: COD LIVER OIL/ZINC OXIDE OINT 113 GM TUBE TOP SCH ×2 (09:03→21:41)
[2019-12-03] MEDS: VITAL AF 1.2 1,000 ML LIQUID GT SCH (13:02)
[2019-12-03] MEDS: BISACODYL 10 MG SUPP.RECT RC PRN (17:30)
[2019-12-03 19:45] VITALS: BP 93/54
[2019-12-03] MEDS: THIAMINE HCL 100 MG TABLET GT SCH (21:41)
[2019-12-03] MEDS: FOLIC ACID 1 MG TABLET GT SCH (21:41)
[2019-12-03] MEDS: CHOLECALCIFEROL 1,000 UNIT TABLET GT SCH (21:41)
[2019-12-04] MEDS: IPRATROPIUM BROMIDE 0.5 MG/2.5 ML NEBU NEB SCH ×6 (02:40→22:40)
[2019-12-04] MEDS: ALBUTEROL SULFATE 2.5 MG/3 ML NEBU NEB SCH ×6 (02:40→22:40)
[2019-12-04] MEDS: MIDODRINE HCL 10 MG TABLET GT SCH ×3 (05:20→21:35)
[2019-12-04] MEDS: OMEPRAZOLE 20 MG CAPSULE.DR GT SCH (05:20)
[2019-12-04] MEDS: METOCLOPRAMIDE HCL 5 MG TABLET GT SCH ×3 (05:20→21:35)
[2019-12-04] MEDS: BACLOFEN 20 MG TABLET GT SCH ×3 (05:20→21:34)
[2019-12-04] MEDS: BACLOFEN 10 MG TABLET GT SCH ×3 (05:20→21:34)
[2019-12-04 08:09] VITALS: BP 112/67
[2019-12-04] MEDS: levETIRAcetam 500 MG/5 ML LIQUID UDC GT SCH ×2 (08:41→20:53)
[2019-12-04] MEDS: PHENYTOIN 100 MG/4 ML UDC GT SCH ×2 (08:41→20:53)
[2019-12-04] MEDS: POTASSIUM CHLORIDE 40 MEQ/30 ML LIQUID UDC GT SCH (08:41)
[2019-12-04] MEDS: COD LIVER OIL/ZINC OXIDE OINT 113 GM TUBE TOP SCH ×2 (08:41→20:54)
[2019-12-04] MEDS: DESMOPRESSIN 0.1 MG TABLET GT SCH (08:41)
[2019-12-04] MEDS: ACIDOPHILUS/BULGARICUS CHEW TAB GT SCH ×2 (08:41→20:53)
[2019-12-04] MEDS: FUROSEMIDE 20 MG/2 ML GT SCH (08:41)
[2019-12-04] MEDS: HYDROGEN PEROXIDE 3% 118 ML BOTTLE TP SCH ×2 (09:30→21:05)
[2019-12-04] MEDS: VITAL AF 1.2 1,000 ML LIQUID GT SCH (18:37)
[2019-12-04 20:11] VITALS: BP 97/57
[2019-12-04] MEDS: FOLIC ACID 1 MG TABLET GT SCH (20:53)
[2019-12-04] MEDS: THIAMINE HCL 100 MG TABLET GT SCH (20:53)
[2019-12-04] MEDS: CHOLECALCIFEROL 1,000 UNIT TABLET GT SCH (20:54)
[2019-12-05] MEDS: IPRATROPIUM BROMIDE 0.5 MG/2.5 ML NEBU NEB SCH ×6 (02:56→23:31)
[2019-12-05] MEDS: ALBUTEROL SULFATE 2.5 MG/3 ML NEBU NEB SCH ×6 (02:56→23:31)
[2019-12-05] MEDS: BACLOFEN 10 MG TABLET GT SCH ×3 (05:52→21:03)
[2019-12-05] MEDS: BACLOFEN 20 MG TABLET GT SCH ×3 (05:52→21:03)
[2019-12-05] MEDS: MIDODRINE HCL 10 MG TABLET GT SCH ×3 (05:54→21:04)
[2019-12-05] MEDS: OMEPRAZOLE 20 MG CAPSULE.DR GT SCH (05:54)
[2019-12-05] MEDS: METOCLOPRAMIDE HCL 5 MG TABLET GT SCH ×3 (05:54→21:04)
[2019-12-05 06:55] VITALS: BP 112/58
[2019-12-05 08:05] VITALS: BP 98/54
[2019-12-05] MEDS: HYDROGEN PEROXIDE 3% 118 ML BOTTLE TP SCH ×2 (08:26→21:45)
[2019-12-05] MEDS: DESMOPRESSIN 0.1 MG TABLET GT SCH (08:38)
[2019-12-05] MEDS: FUROSEMIDE 20 MG/2 ML GT SCH (08:39)
[2019-12-05] MEDS: ACIDOPHILUS/BULGARICUS CHEW TAB GT SCH ×2 (08:39→21:03)
[2019-12-05] MEDS: COD LIVER OIL/ZINC OXIDE OINT 113 GM TUBE TOP SCH ×2 (08:39→21:03)
[2019-12-05] MEDS: levETIRAcetam 500 MG/5 ML LIQUID UDC GT SCH ×2 (08:39→21:03)
[2019-12-05] MEDS: PHENYTOIN 100 MG/4 ML UDC GT SCH ×2 (08:39→21:03)
[2019-12-05] MEDS: POTASSIUM CHLORIDE 40 MEQ/30 ML LIQUID UDC GT SCH (08:39)
[2019-12-05 20:02] VITALS: BP 101/64
[2019-12-05] MEDS: THIAMINE HCL 100 MG TABLET GT SCH (21:03)
[2019-12-05] MEDS: CHOLECALCIFEROL 1,000 UNIT TABLET GT SCH (21:03)
[2019-12-05] MEDS: FOLIC ACID 1 MG TABLET GT SCH (21:03)
[2019-12-06] MEDS: ALBUTEROL SULFATE 2.5 MG/3 ML NEBU NEB SCH ×6 (03:12→23:39)
[2019-12-06] MEDS: IPRATROPIUM BROMIDE 0.5 MG/2.5 ML NEBU NEB SCH ×6 (03:12→23:39)
[2019-12-06] MEDS: BACLOFEN 10 MG TABLET GT SCH ×3 (05:45→21:45)
[2019-12-06] MEDS: BACLOFEN 20 MG TABLET GT SCH ×3 (05:45→21:45)
[2019-12-06] MEDS: OMEPRAZOLE 20 MG CAPSULE.DR GT SCH (05:47)
[2019-12-06] MEDS: METOCLOPRAMIDE HCL 5 MG TABLET GT SCH ×3 (05:47→21:46)
[2019-12-06] MEDS: MIDODRINE HCL 10 MG TABLET GT SCH ×3 (05:47→21:46)
[2019-12-06] MEDS: VITAL AF 1.2 1,000 ML LIQUID GT SCH (06:51)
[2019-12-06 07:27] LABS: BASOPHILS % (AUTO) 0.8 % (0.0-2.0); EOSINOPHILS # (AUTO) 0.5 K/uL (0.0-0.7); EOSINOPHILS % (AUTO) 8.1 % (0.0-7.0); HEMATOCRIT 28.6 % (31.2-41.9); LYMPHOCYTES # (AUTO) 2.2 K/uL (20.0-40.0); LYMPHOCYTES % (AUTO) 38.9 % (20.5-51.5); MEAN CORPUSCULAR HEMOGLOBIN 32.4 uug (24.7-32.8); MEAN CORPUSCULAR HGB CONC 35 g/dL (32.3-35.6); MEAN CORPUSCULAR VOLUME 92.7 fL (75.5-95.3); MONOCYTES # (AUTO) 0.5 K/uL (2.0-10.0); NEUTROPHILS # (AUTO) 2.5 K/uL (1.8-8.9); NEUTROPHILS % (AUTO) 44.2 % (38.5-71.5); RED BLOOD CELL COUNT(AUTO) 3.09 MIL/uL (3.63-4.92)
[2019-12-06 07:41] LABS: CREATININE 0.6 mg/dL (0.6-1.3); MAGNESIUM 1.8 mg/dL (1.8-2.4); PHOSPHOROUS 3.8 mg/dL (2.5-4.9); POTASSIUM 3.5 mmol/L (3.5-5.1)
[2019-12-06 07:45] VITALS: BP 106/72
[2019-12-06 07:47] LABS: PLATELET COUNT (AUTO) 273 K/uL (179-408); WHITE BLOOD COUNT (AUTO) 5.8 K/uL (3.8-11.8)
[2019-12-06] MEDS: HYDROGEN PEROXIDE 3% 118 ML BOTTLE TP SCH ×2 (08:50→21:01)
[2019-12-06] MEDS: DESMOPRESSIN 0.1 MG TABLET GT SCH (09:04)
[2019-12-06] MEDS: PHENYTOIN 100 MG/4 ML UDC GT SCH ×2 (09:06→21:39)
[2019-12-06] MEDS: levETIRAcetam 500 MG/5 ML LIQUID UDC GT SCH ×2 (09:07→21:43)
[2019-12-06] MEDS: ACIDOPHILUS/BULGARICUS CHEW TAB GT SCH ×2 (09:07→21:41)
[2019-12-06] MEDS: FUROSEMIDE 20 MG/2 ML GT SCH (09:08)
[2019-12-06] MEDS: POTASSIUM CHLORIDE 40 MEQ/30 ML LIQUID UDC GT SCH (09:09)
[2019-12-06] MEDS: COD LIVER OIL/ZINC OXIDE OINT 113 GM TUBE TOP SCH ×2 (09:09→21:44)
--- NOTE | 2019-12-06 10:30 | NUR ---
Pt's Mother aware of perineal, buttocks fungal redness, and bilat cheeks rashes and treatment initiated. Schedule Zoom time. 1035AM Assisted zoom time with pt's mother and son.
--- NOTE | 2019-12-06 19:25 | NUR ---
PT RECEIVED ON CONTINUOUS VENT, TRACH IN PLACE AND SECURED WITH TRACH TIE. AMBU BAG AND BACK-UP TRACH AT BEDSIDE. TRACH CARE DONE. IN LINE TX GIVEN WITH UD ALBUTEROL+ UD ATROVENT ORDERED. SUCTION PRN. VENT ALARMS AUDIBLE, CHECKED AND RESET. NO DISTRESS NOTED AT THIS TIME. WILL CONTINUE TO MONITOR.
[2019-12-06 19:54] VITALS: BP 95/59
[2019-12-06] MEDS: FOLIC ACID 1 MG TABLET GT SCH (21:42)
[2019-12-06] MEDS: CHOLECALCIFEROL 1,000 UNIT TABLET GT SCH (21:44)
[2019-12-06] MEDS: THIAMINE HCL 100 MG TABLET GT SCH (21:44)
[2019-12-06] MEDS: TRIAMCINOLONE ACET 0.1% CREAM 15 GM TUBE TP SCH (21:45)
[2019-12-06] MEDS: NYSTATIN CREAM 30 GM TUBE TP SCH ×2 (21:45)
[2019-12-07] MEDS: IPRATROPIUM BROMIDE 0.5 MG/2.5 ML NEBU NEB SCH ×6 (03:17→22:40)
[2019-12-07] MEDS: ALBUTEROL SULFATE 2.5 MG/3 ML NEBU NEB SCH ×6 (03:17→22:40)
[2019-12-07] MEDS: BACLOFEN 20 MG TABLET GT SCH ×3 (05:43→21:41)
[2019-12-07] MEDS: BACLOFEN 10 MG TABLET GT SCH ×3 (05:43→21:41)
[2019-12-07] MEDS: MIDODRINE HCL 10 MG TABLET GT SCH ×3 (05:44→21:41)
[2019-12-07] MEDS: METOCLOPRAMIDE HCL 5 MG TABLET GT SCH ×3 (05:44→21:41)
[2019-12-07] MEDS: OMEPRAZOLE 20 MG CAPSULE.DR GT SCH (05:44)
[2019-12-07 07:57] VITALS: BP 100/60
[2019-12-07] MEDS: DESMOPRESSIN 0.1 MG TABLET GT SCH (08:54)
[2019-12-07] MEDS: PHENYTOIN 100 MG/4 ML UDC GT SCH ×2 (08:55→21:37)
[2019-12-07] MEDS: levETIRAcetam 500 MG/5 ML LIQUID UDC GT SCH ×2 (09:00→21:39)
[2019-12-07] MEDS: ACIDOPHILUS/BULGARICUS CHEW TAB GT SCH ×2 (09:00→21:37)
[2019-12-07] MEDS: FUROSEMIDE 20 MG/2 ML GT SCH (09:01)
[2019-12-07] MEDS: POTASSIUM CHLORIDE 40 MEQ/30 ML LIQUID UDC GT SCH (09:02)
[2019-12-07] MEDS: COD LIVER OIL/ZINC OXIDE OINT 113 GM TUBE TOP SCH ×2 (09:02→21:40)
[2019-12-07] MEDS: TRIAMCINOLONE ACET 0.1% CREAM 15 GM TUBE TP SCH ×2 (09:03→21:41)
[2019-12-07] MEDS: NYSTATIN CREAM 30 GM TUBE TP SCH ×4 (09:03→21:41)
[2019-12-07] MEDS: HYDROGEN PEROXIDE 3% 118 ML BOTTLE TP SCH ×2 (09:17→21:20)
[2019-12-07] MEDS: VITAL AF 1.2 1,000 ML LIQUID GT SCH (14:15)
--- NOTE | 2019-12-07 17:09 | NUR ---
New orders to do the Baseline [facility] Covid 19 test requirement.
[2019-12-07 19:52] VITALS: BP 124/67
[2019-12-07] MEDS: FOLIC ACID 1 MG TABLET GT SCH (21:37)
[2019-12-07] MEDS: CHOLECALCIFEROL 1,000 UNIT TABLET GT SCH (21:40)
[2019-12-07] MEDS: THIAMINE HCL 100 MG TABLET GT SCH (21:40)
[2019-12-08] MEDS: ALBUTEROL SULFATE 2.5 MG/3 ML NEBU NEB SCH ×5 (02:45→20:13)
[2019-12-08] MEDS: IPRATROPIUM BROMIDE 0.5 MG/2.5 ML NEBU NEB SCH ×5 (02:45→20:13)
[2019-12-08] MEDS: BACLOFEN 10 MG TABLET GT SCH ×3 (05:49→21:38)
[2019-12-08] MEDS: BACLOFEN 20 MG TABLET GT SCH ×3 (05:49→21:38)
[2019-12-08] MEDS: MIDODRINE HCL 10 MG TABLET GT SCH ×3 (05:50→21:39)
[2019-12-08] MEDS: METOCLOPRAMIDE HCL 5 MG TABLET GT SCH ×3 (05:50→21:40)
[2019-12-08] MEDS: OMEPRAZOLE 20 MG CAPSULE.DR GT SCH (05:50)
[2019-12-08] MEDS: HYDROGEN PEROXIDE 3% 118 ML BOTTLE TP SCH ×2 (07:13→21:18)
[2019-12-08 07:37] VITALS: BP 109/70
[2019-12-08] MEDS: PHENYTOIN 100 MG/4 ML UDC GT SCH ×2 (08:31→21:30)
[2019-12-08] MEDS: DESMOPRESSIN 0.1 MG TABLET GT SCH (08:31)
[2019-12-08] MEDS: ACIDOPHILUS/BULGARICUS CHEW TAB GT SCH ×2 (08:33→21:30)
[2019-12-08] MEDS: levETIRAcetam 500 MG/5 ML LIQUID UDC GT SCH ×2 (08:33→21:34)
[2019-12-08] MEDS: NYSTATIN CREAM 30 GM TUBE TP SCH ×4 (08:34→21:38)
[2019-12-08] MEDS: COD LIVER OIL/ZINC OXIDE OINT 113 GM TUBE TOP SCH ×2 (08:34→21:37)
[2019-12-08] MEDS: POTASSIUM CHLORIDE 40 MEQ/30 ML LIQUID UDC GT SCH (08:34)
[2019-12-08] MEDS: FUROSEMIDE 20 MG/2 ML GT SCH (08:34)
[2019-12-08] MEDS: TRIAMCINOLONE ACET 0.1% CREAM 15 GM TUBE TP SCH ×2 (08:34→21:38)
--- NOTE | 2019-12-08 09:59 | NUR ---
PT. WAS SEEN AND EXAMINED BY DR. NY AND WITH NEW ORDER CARRIED OUT.
[2019-12-08] MEDS: VITAL AF 1.2 1,000 ML LIQUID GT SCH (12:11)
[2019-12-08] MEDS: NYSTATIN SUSPENSION 5 ML LIQUID UDC PO SCH (17:55)
[2019-12-08] MEDS: BISACODYL 10 MG SUPP.RECT RC PRN (18:05)
[2019-12-08 20:00] VITALS: BP 96/58
[2019-12-08] MEDS: FOLIC ACID 1 MG TABLET GT SCH (21:32)
[2019-12-08] MEDS: THIAMINE HCL 100 MG TABLET GT SCH (21:37)
[2019-12-08] MEDS: CHOLECALCIFEROL 1,000 UNIT TABLET GT SCH (21:37)
[2019-12-09] MEDS: IPRATROPIUM BROMIDE 0.5 MG/2.5 ML NEBU NEB SCH ×7 (00:19→23:11)
[2019-12-09] MEDS: ALBUTEROL SULFATE 2.5 MG/3 ML NEBU NEB SCH ×7 (00:19→23:11)
[2019-12-09] MEDS: BACLOFEN 20 MG TABLET GT SCH ×3 (05:56→21:32)
[2019-12-09] MEDS: BACLOFEN 10 MG TABLET GT SCH ×3 (05:56→21:32)
[2019-12-09] MEDS: MIDODRINE HCL 10 MG TABLET GT SCH ×3 (05:57→21:33)
[2019-12-09] MEDS: OMEPRAZOLE 20 MG CAPSULE.DR GT SCH (05:57)
[2019-12-09] MEDS: METOCLOPRAMIDE HCL 5 MG TABLET GT SCH ×3 (05:58→21:33)
[2019-12-09 07:37] VITALS: BP 134/85
[2019-12-09] MEDS: DESMOPRESSIN 0.1 MG TABLET GT SCH (08:11)
[2019-12-09] MEDS: ACIDOPHILUS/BULGARICUS CHEW TAB GT SCH ×2 (08:12→20:30)
[2019-12-09] MEDS: PHENYTOIN 100 MG/4 ML UDC GT SCH ×2 (08:12→20:30)
[2019-12-09] MEDS: levETIRAcetam 500 MG/5 ML LIQUID UDC GT SCH ×2 (08:13→20:30)
[2019-12-09] MEDS: POTASSIUM CHLORIDE 40 MEQ/30 ML LIQUID UDC GT SCH (08:14)
[2019-12-09] MEDS: FUROSEMIDE 20 MG/2 ML GT SCH (08:14)
[2019-12-09] MEDS: NYSTATIN SUSPENSION 5 ML LIQUID UDC PO SCH ×2 (08:15→17:49)
[2019-12-09] MEDS: COD LIVER OIL/ZINC OXIDE OINT 113 GM TUBE TOP SCH ×2 (08:16→20:30)
[2019-12-09] MEDS: NYSTATIN CREAM 30 GM TUBE TP SCH ×4 (08:16→20:30)
[2019-12-09] MEDS: TRIAMCINOLONE ACET 0.1% CREAM 15 GM TUBE TP SCH ×2 (08:16→20:30)
[2019-12-09] MEDS: HYDROGEN PEROXIDE 3% 118 ML BOTTLE TP SCH ×2 (08:50→21:51)
[2019-12-09] MEDS: MAGNESIUM HYDROXIDE 30 ML LIQUID UDC GT PRN (10:36)
[2019-12-09] MEDS: BISACODYL 10 MG SUPP.RECT RC PRN (10:36)
--- NOTE | 2019-12-09 17:00 | NUR ---
SEEN AND EXAMINED BY DR. DEEJAY Hardwick AND WITH SHAYLEEO.
[2019-12-09] MEDS: CHOLECALCIFEROL 1,000 UNIT TABLET GT SCH (20:30)
[2019-12-09] MEDS: THIAMINE HCL 100 MG TABLET GT SCH (20:30)
[2019-12-09] MEDS: FOLIC ACID 1 MG TABLET GT SCH (20:30)
[2019-12-09 22:50] VITALS: BP 96/60
[2019-12-10] MEDS: VITAL AF 1.2 1,000 ML LIQUID GT SCH ×2 (01:42→18:06)
[2019-12-10] MEDS: ALBUTEROL SULFATE 2.5 MG/3 ML NEBU NEB SCH ×6 (03:09→23:10)
[2019-12-10] MEDS: IPRATROPIUM BROMIDE 0.5 MG/2.5 ML NEBU NEB SCH ×6 (03:09→23:10)
[2019-12-10] MEDS: MIDODRINE HCL 10 MG TABLET GT SCH ×3 (05:04→21:08)
[2019-12-10] MEDS: OMEPRAZOLE 20 MG CAPSULE.DR GT SCH (05:04)
[2019-12-10] MEDS: BACLOFEN 10 MG TABLET GT SCH ×3 (05:04→21:07)
[2019-12-10] MEDS: METOCLOPRAMIDE HCL 5 MG TABLET GT SCH ×3 (05:04→21:08)
[2019-12-10] MEDS: BACLOFEN 20 MG TABLET GT SCH ×3 (05:04→21:08)
[2019-12-10 07:44] VITALS: BP 95/55
[2019-12-10] MEDS: ACIDOPHILUS/BULGARICUS CHEW TAB GT SCH ×2 (08:02→20:27)
[2019-12-10] MEDS: levETIRAcetam 500 MG/5 ML LIQUID UDC GT SCH ×2 (08:02→20:27)
[2019-12-10] MEDS: DESMOPRESSIN 0.1 MG TABLET GT SCH (08:02)
[2019-12-10] MEDS: PHENYTOIN 100 MG/4 ML UDC GT SCH ×2 (08:02→20:27)
[2019-12-10] MEDS: NYSTATIN SUSPENSION 5 ML LIQUID UDC PO SCH ×2 (08:03→17:00)
[2019-12-10] MEDS: TRIAMCINOLONE ACET 0.1% CREAM 15 GM TUBE TP SCH ×2 (08:03→20:27)
[2019-12-10] MEDS: FUROSEMIDE 20 MG/2 ML GT SCH (08:03)
[2019-12-10] MEDS: COD LIVER OIL/ZINC OXIDE OINT 113 GM TUBE TOP SCH ×2 (08:03→20:27)
[2019-12-10] MEDS: NYSTATIN CREAM 30 GM TUBE TP SCH ×4 (08:03→20:27)
[2019-12-10] MEDS: POTASSIUM CHLORIDE 40 MEQ/30 ML LIQUID UDC GT SCH (08:03)
[2019-12-10] MEDS: HYDROGEN PEROXIDE 3% 118 ML BOTTLE TP SCH ×2 (09:45→21:23)
--- NOTE | 2019-12-10 10:00 | NUR ---
SEEN AND EXAMINED BY DR. WORTHINGTON AND WITH NNO.
--- NOTE | 2019-12-10 19:25 | NUR ---
PT RECEIVED ON CONTINUOUS VENT, TRACH PATENT AND SECURED WITH TRACH TIE. AMBU BAG AND BACK-UP TRACH AT BEDSIDE. TRACH CARE DONE. IN LINE TX GIVEN WITH UD ALBUTEROL+ UD ATROVENT ORDERED. SUCTION PRN. VENT ALARMS AUDIBLE, CHECKED AND RESET. NO DISTRESS NOTED AT THIS TIME. WILL CONTINUE TO MONITOR.
[2019-12-10] MEDS: CHOLECALCIFEROL 1,000 UNIT TABLET GT SCH (20:27)
[2019-12-10] MEDS: THIAMINE HCL 100 MG TABLET GT SCH (20:27)
[2019-12-10] MEDS: FOLIC ACID 1 MG TABLET GT SCH (20:27)
[2019-12-10 22:00] VITALS: BP 94/48
[2019-12-11] MEDS: ALBUTEROL SULFATE 2.5 MG/3 ML NEBU NEB SCH ×6 (03:07→23:10)
[2019-12-11] MEDS: IPRATROPIUM BROMIDE 0.5 MG/2.5 ML NEBU NEB SCH ×6 (03:07→23:10)
[2019-12-11] MEDS: MIDODRINE HCL 10 MG TABLET GT SCH ×3 (05:11→21:16)
[2019-12-11] MEDS: BACLOFEN 10 MG TABLET GT SCH ×3 (05:11→21:16)
[2019-12-11] MEDS: BACLOFEN 20 MG TABLET GT SCH ×3 (05:11→21:16)
[2019-12-11] MEDS: OMEPRAZOLE 20 MG CAPSULE.DR GT SCH (05:11)
[2019-12-11] MEDS: METOCLOPRAMIDE HCL 5 MG TABLET GT SCH ×3 (05:11→21:16)
[2019-12-11] MEDS: HYDROGEN PEROXIDE 3% 118 ML BOTTLE TP SCH ×2 (07:25→21:27)
[2019-12-11 07:50] VITALS: BP 93/61
[2019-12-11] MEDS: levETIRAcetam 500 MG/5 ML LIQUID UDC GT SCH ×2 (08:52→20:23)
[2019-12-11] MEDS: ACIDOPHILUS/BULGARICUS CHEW TAB GT SCH ×2 (08:52→20:23)
[2019-12-11] MEDS: DESMOPRESSIN 0.1 MG TABLET GT SCH (08:52)
[2019-12-11] MEDS: PHENYTOIN 100 MG/4 ML UDC GT SCH ×2 (08:52→20:23)
[2019-12-11] MEDS: NYSTATIN SUSPENSION 5 ML LIQUID UDC PO SCH ×2 (08:53→17:00)
[2019-12-11] MEDS: FUROSEMIDE 20 MG/2 ML GT SCH (08:53)
[2019-12-11] MEDS: POTASSIUM CHLORIDE 40 MEQ/30 ML LIQUID UDC GT SCH (08:53)
[2019-12-11] MEDS: COD LIVER OIL/ZINC OXIDE OINT 113 GM TUBE TOP SCH ×2 (08:53→20:23)
[2019-12-11] MEDS: NYSTATIN CREAM 30 GM TUBE TP SCH ×4 (08:54→20:23)
[2019-12-11] MEDS: TRIAMCINOLONE ACET 0.1% CREAM 15 GM TUBE TP SCH ×2 (08:54→20:23)
[2019-12-11] MEDS: CHOLECALCIFEROL 1,000 UNIT TABLET GT SCH (20:23)
[2019-12-11] MEDS: THIAMINE HCL 100 MG TABLET GT SCH (20:23)
[2019-12-11] MEDS: FOLIC ACID 1 MG TABLET GT SCH (20:23)
[2019-12-11 22:00] VITALS: BP 103/64
--- NOTE | 2019-12-11 22:22 | NUR ---
Afebrile, remains on Nystatin oral swish and suction for oral candidiasis, no adverse reactions noted, good mouth care done, no signs of any distress noted, kept patient clean and comfortable.
[2019-12-12] MEDS: IPRATROPIUM BROMIDE 0.5 MG/2.5 ML NEBU NEB SCH ×6 (03:10→22:30)
[2019-12-12] MEDS: ALBUTEROL SULFATE 2.5 MG/3 ML NEBU NEB SCH ×6 (03:10→22:30)
[2019-12-12] MEDS: BACLOFEN 10 MG TABLET GT SCH ×3 (05:08→21:12)
[2019-12-12] MEDS: BACLOFEN 20 MG TABLET GT SCH ×3 (05:08→21:12)
[2019-12-12] MEDS: OMEPRAZOLE 20 MG CAPSULE.DR GT SCH (05:09)
[2019-12-12] MEDS: MIDODRINE HCL 10 MG TABLET GT SCH ×3 (05:09→21:12)
[2019-12-12] MEDS: METOCLOPRAMIDE HCL 5 MG TABLET GT SCH ×3 (05:09→21:12)
[2019-12-12] MEDS: HYDROGEN PEROXIDE 3% 118 ML BOTTLE TP SCH ×2 (07:11→21:44)
[2019-12-12 07:28] VITALS: BP 118/68
[2019-12-12] MEDS: DESMOPRESSIN 0.1 MG TABLET GT SCH (08:16)
[2019-12-12] MEDS: PHENYTOIN 100 MG/4 ML UDC GT SCH ×2 (08:17→21:16)
[2019-12-12] MEDS: ACIDOPHILUS/BULGARICUS CHEW TAB GT SCH ×2 (08:17→21:11)
[2019-12-12] MEDS: levETIRAcetam 500 MG/5 ML LIQUID UDC GT SCH ×2 (08:17→21:17)
[2019-12-12] MEDS: POTASSIUM CHLORIDE 40 MEQ/30 ML LIQUID UDC GT SCH (08:18)
[2019-12-12] MEDS: FUROSEMIDE 20 MG/2 ML GT SCH (08:18)
[2019-12-12] MEDS: COD LIVER OIL/ZINC OXIDE OINT 113 GM TUBE TOP SCH ×2 (08:19→21:12)
[2019-12-12] MEDS: NYSTATIN CREAM 30 GM TUBE TP SCH ×4 (08:19→21:12)
[2019-12-12] MEDS: TRIAMCINOLONE ACET 0.1% CREAM 15 GM TUBE TP SCH ×2 (08:19→21:12)
[2019-12-12] MEDS: NYSTATIN SUSPENSION 5 ML LIQUID UDC PO SCH ×2 (08:19→16:32)
--- NOTE | 2019-12-12 13:00 | NUR ---
SEEN BY EMMY Agustin AND WITH NNO.
[2019-12-12] MEDS: VITAL AF 1.2 1,000 ML LIQUID GT SCH (13:42)
[2019-12-12 20:18] VITALS: BP 94/53
[2019-12-12] MEDS: FOLIC ACID 1 MG TABLET GT SCH (21:11)
[2019-12-12] MEDS: CHOLECALCIFEROL 1,000 UNIT TABLET GT SCH (21:11)
[2019-12-12] MEDS: THIAMINE HCL 100 MG TABLET GT SCH (21:17)
--- NOTE | 2019-12-12 21:19 | NUR ---
Still on Nystatin oral swab for oral candidiasis, no adverse reactions noted, good mouth care done, afebrile, no signs of any respiratory distress noted, kept clean and comfortable.
--- NOTE | 2019-12-12 23:16 | NUR ---
Seen by Dr. Kimball with no new orders.
[2019-12-13] MEDS: ALBUTEROL SULFATE 2.5 MG/3 ML NEBU NEB SCH ×6 (02:30→23:55)
[2019-12-13] MEDS: IPRATROPIUM BROMIDE 0.5 MG/2.5 ML NEBU NEB SCH ×6 (02:30→23:55)
[2019-12-13] MEDS: BACLOFEN 10 MG TABLET GT SCH ×3 (05:19→22:26)
[2019-12-13] MEDS: BACLOFEN 20 MG TABLET GT SCH ×3 (05:19→22:27)
[2019-12-13] MEDS: OMEPRAZOLE 20 MG CAPSULE.DR GT SCH (05:19)
[2019-12-13] MEDS: METOCLOPRAMIDE HCL 5 MG TABLET GT SCH ×3 (05:19→22:27)
[2019-12-13] MEDS: MIDODRINE HCL 10 MG TABLET GT SCH ×3 (05:19→22:00)
[2019-12-13 07:31] VITALS: BP 82/40
[2019-12-13] MEDS: DESMOPRESSIN 0.1 MG TABLET GT SCH (08:15)
[2019-12-13] MEDS: PHENYTOIN 100 MG/4 ML UDC GT SCH ×2 (08:15→20:27)
[2019-12-13] MEDS: ACIDOPHILUS/BULGARICUS CHEW TAB GT SCH ×2 (08:15→20:27)
[2019-12-13] MEDS: FUROSEMIDE 20 MG/2 ML GT SCH (08:16)
[2019-12-13] MEDS: levETIRAcetam 500 MG/5 ML LIQUID UDC GT SCH ×2 (08:16→20:27)
[2019-12-13] MEDS: POTASSIUM CHLORIDE 40 MEQ/30 ML LIQUID UDC GT SCH (08:17)
[2019-12-13] MEDS: COD LIVER OIL/ZINC OXIDE OINT 113 GM TUBE TOP SCH ×2 (08:19→20:32)
[2019-12-13] MEDS: NYSTATIN SUSPENSION 5 ML LIQUID UDC PO SCH (08:19)
[2019-12-13] MEDS: TRIAMCINOLONE ACET 0.1% CREAM 15 GM TUBE TP SCH ×2 (08:20→20:32)
[2019-12-13] MEDS: NYSTATIN CREAM 30 GM TUBE TP SCH ×4 (08:20→20:32)
[2019-12-13] MEDS: HYDROGEN PEROXIDE 3% 118 ML BOTTLE TP SCH ×2 (08:54→21:05)
--- NOTE | 2019-12-13 14:30 | NUR ---
video chat done with patients mother.
[2019-12-13] MEDS: FOLIC ACID 1 MG TABLET GT SCH (20:27)
[2019-12-13] MEDS: THIAMINE HCL 100 MG TABLET GT SCH (20:28)
[2019-12-13] MEDS: CHOLECALCIFEROL 1,000 UNIT TABLET GT SCH (20:29)
[2019-12-13 20:31] VITALS: BP 99/56
[2019-12-14] MEDS: ALBUTEROL SULFATE 2.5 MG/3 ML NEBU NEB SCH ×6 (03:30→22:39)
[2019-12-14] MEDS: IPRATROPIUM BROMIDE 0.5 MG/2.5 ML NEBU NEB SCH ×6 (03:30→22:39)
[2019-12-14] MEDS: VITAL AF 1.2 1,000 ML LIQUID GT SCH (04:03)
[2019-12-14] MEDS: MIDODRINE HCL 10 MG TABLET GT SCH ×3 (06:00→21:06)
[2019-12-14] MEDS: BACLOFEN 20 MG TABLET GT SCH ×3 (06:09→21:05)
[2019-12-14] MEDS: BACLOFEN 10 MG TABLET GT SCH ×3 (06:09→21:05)
[2019-12-14] MEDS: OMEPRAZOLE 20 MG CAPSULE.DR GT SCH (06:10)
[2019-12-14] MEDS: METOCLOPRAMIDE HCL 5 MG TABLET GT SCH ×3 (06:10→21:06)
[2019-12-14 07:34] VITALS: BP 98/53
[2019-12-14] MEDS: DESMOPRESSIN 0.1 MG TABLET GT SCH (08:32)
[2019-12-14] MEDS: PHENYTOIN 100 MG/4 ML UDC GT SCH ×2 (08:32→20:47)
[2019-12-14] MEDS: ACIDOPHILUS/BULGARICUS CHEW TAB GT SCH ×2 (08:32→20:47)
[2019-12-14] MEDS: levETIRAcetam 500 MG/5 ML LIQUID UDC GT SCH ×2 (08:32→20:48)
[2019-12-14] MEDS: FUROSEMIDE 20 MG/2 ML GT SCH (08:33)
[2019-12-14] MEDS: POTASSIUM CHLORIDE 40 MEQ/30 ML LIQUID UDC GT SCH (08:34)
[2019-12-14] MEDS: COD LIVER OIL/ZINC OXIDE OINT 113 GM TUBE TOP SCH ×2 (08:34→20:48)
[2019-12-14] MEDS: NYSTATIN CREAM 30 GM TUBE TP SCH ×4 (08:34→20:48)
[2019-12-14] MEDS: TRIAMCINOLONE ACET 0.1% CREAM 15 GM TUBE TP SCH ×2 (08:34→20:48)
[2019-12-14] MEDS: HYDROGEN PEROXIDE 3% 118 ML BOTTLE TP SCH ×2 (09:00→21:48)
[2019-12-14 20:00] VITALS: BP 94/61
[2019-12-14] MEDS: FOLIC ACID 1 MG TABLET GT SCH (20:48)
[2019-12-14] MEDS: THIAMINE HCL 100 MG TABLET GT SCH (20:48)
[2019-12-14] MEDS: NYSTATIN POWDER 15 GM BOTTLE TP SCH (20:48)
[2019-12-14] MEDS: CHOLECALCIFEROL 1,000 UNIT TABLET GT SCH (20:48)
[2019-12-15] MEDS: IPRATROPIUM BROMIDE 0.5 MG/2.5 ML NEBU NEB SCH ×6 (02:38→22:57)
[2019-12-15] MEDS: ALBUTEROL SULFATE 2.5 MG/3 ML NEBU NEB SCH ×6 (02:38→22:57)
[2019-12-15] MEDS: MIDODRINE HCL 10 MG TABLET GT SCH ×3 (05:00→22:32)
[2019-12-15] MEDS: BACLOFEN 10 MG TABLET GT SCH ×3 (05:00→22:31)
[2019-12-15] MEDS: METOCLOPRAMIDE HCL 5 MG TABLET GT SCH ×3 (05:00→22:32)
[2019-12-15] MEDS: VITAL AF 1.2 1,000 ML LIQUID GT SCH (05:00)
[2019-12-15] MEDS: OMEPRAZOLE 20 MG CAPSULE.DR GT SCH (05:00)
[2019-12-15] MEDS: BACLOFEN 20 MG TABLET GT SCH ×3 (05:00→22:31)
[2019-12-15 07:32] VITALS: BP 101/59
[2019-12-15] MEDS: HYDROGEN PEROXIDE 3% 118 ML BOTTLE TP SCH ×2 (09:00→21:18)
[2019-12-15] MEDS: DESMOPRESSIN 0.1 MG TABLET GT SCH (09:02)
[2019-12-15] MEDS: PHENYTOIN 100 MG/4 ML UDC GT SCH ×2 (09:04→20:26)
[2019-12-15] MEDS: ACIDOPHILUS/BULGARICUS CHEW TAB GT SCH ×2 (09:04→20:27)
[2019-12-15] MEDS: levETIRAcetam 500 MG/5 ML LIQUID UDC GT SCH ×2 (09:08→20:28)
[2019-12-15] MEDS: FUROSEMIDE 20 MG/2 ML GT SCH (09:09)
[2019-12-15] MEDS: POTASSIUM CHLORIDE 40 MEQ/30 ML LIQUID UDC GT SCH (09:10)
[2019-12-15] MEDS: COD LIVER OIL/ZINC OXIDE OINT 113 GM TUBE TOP SCH ×2 (09:10→20:30)
[2019-12-15] MEDS: NYSTATIN POWDER 15 GM BOTTLE TP SCH ×2 (09:11→20:31)
[2019-12-15] MEDS: NYSTATIN CREAM 30 GM TUBE TP SCH ×4 (09:11→20:31)
[2019-12-15] MEDS: TRIAMCINOLONE ACET 0.1% CREAM 15 GM TUBE TP SCH ×2 (09:11→20:30)
[2019-12-15] MEDS: BISACODYL 10 MG SUPP.RECT RC PRN (09:44)
[2019-12-15 20:10] VITALS: BP 105/62
[2019-12-15] MEDS: FOLIC ACID 1 MG TABLET GT SCH (20:28)
[2019-12-15] MEDS: THIAMINE HCL 100 MG TABLET GT SCH (20:29)
[2019-12-15] MEDS: CHOLECALCIFEROL 1,000 UNIT TABLET GT SCH (20:30)
[2019-12-16] MEDS: ALBUTEROL SULFATE 2.5 MG/3 ML NEBU NEB SCH ×6 (03:12→23:07)
[2019-12-16] MEDS: IPRATROPIUM BROMIDE 0.5 MG/2.5 ML NEBU NEB SCH ×6 (03:12→23:07)
[2019-12-16] MEDS: VITAL AF 1.2 1,000 ML LIQUID GT SCH (04:41)
[2019-12-16] MEDS: BACLOFEN 10 MG TABLET GT SCH ×3 (06:13→22:26)
[2019-12-16] MEDS: OMEPRAZOLE 20 MG CAPSULE.DR GT SCH (06:13)
[2019-12-16] MEDS: MIDODRINE HCL 10 MG TABLET GT SCH ×3 (06:13→22:27)
[2019-12-16] MEDS: BACLOFEN 20 MG TABLET GT SCH ×3 (06:13→22:26)
[2019-12-16] MEDS: METOCLOPRAMIDE HCL 5 MG TABLET GT SCH ×3 (06:13→22:27)
[2019-12-16 07:28] VITALS: BP 124/77
[2019-12-16] MEDS: DESMOPRESSIN 0.1 MG TABLET GT SCH (09:22)
[2019-12-16] MEDS: PHENYTOIN 100 MG/4 ML UDC GT SCH ×2 (09:23→20:55)
[2019-12-16] MEDS: ACIDOPHILUS/BULGARICUS CHEW TAB GT SCH ×2 (09:23→20:55)
[2019-12-16] MEDS: levETIRAcetam 500 MG/5 ML LIQUID UDC GT SCH ×2 (09:24→20:55)
[2019-12-16] MEDS: FUROSEMIDE 20 MG/2 ML GT SCH (09:24)
[2019-12-16] MEDS: POTASSIUM CHLORIDE 40 MEQ/30 ML LIQUID UDC GT SCH (09:25)
[2019-12-16] MEDS: NYSTATIN CREAM 30 GM TUBE TP SCH ×4 (09:26→20:56)
[2019-12-16] MEDS: NYSTATIN POWDER 15 GM BOTTLE TP SCH ×2 (09:26→20:56)
[2019-12-16] MEDS: TRIAMCINOLONE ACET 0.1% CREAM 15 GM TUBE TP SCH ×2 (09:26→20:56)
[2019-12-16] MEDS: COD LIVER OIL/ZINC OXIDE OINT 113 GM TUBE TOP SCH ×2 (09:26→20:55)
[2019-12-16] MEDS: HYDROGEN PEROXIDE 3% 118 ML BOTTLE TP SCH ×2 (09:59→21:14)
--- NOTE | 2019-12-16 19:10 | NUR ---
PT RECEIVED ON CONTINUOUS VENT, TRACH IN PLACED AND SECURED WITH TRACH TIE. AMBU BAG AND BACK-UP TRACH AT BEDSIDE. TRACH CARE DONE. IN LINE TX GIVEN WITH UD ALBUTEROL+ UD ATROVENT ORDERED. SUCTION PRN. VENT ALARMS AUDIBLE, CHECKED AND RESET. NO DISTRESS NOTED AT THIS TIME. WILL CONTINUE TO MONITOR.
[2019-12-16 20:07] VITALS: BP 99/58
[2019-12-16] MEDS: FOLIC ACID 1 MG TABLET GT SCH (20:55)
[2019-12-16] MEDS: CHOLECALCIFEROL 1,000 UNIT TABLET GT SCH (20:55)
[2019-12-16] MEDS: THIAMINE HCL 100 MG TABLET GT SCH (20:55)
[2019-12-17] MEDS: IPRATROPIUM BROMIDE 0.5 MG/2.5 ML NEBU NEB SCH ×5 (02:57→19:20)
[2019-12-17] MEDS: ALBUTEROL SULFATE 2.5 MG/3 ML NEBU NEB SCH ×5 (02:58→19:20)
[2019-12-17] MEDS: VITAL AF 1.2 1,000 ML LIQUID GT SCH (03:28)
[2019-12-17] MEDS: BACLOFEN 10 MG TABLET GT SCH ×3 (05:45→21:09)
[2019-12-17] MEDS: MIDODRINE HCL 10 MG TABLET GT SCH ×3 (05:46→21:10)
[2019-12-17] MEDS: OMEPRAZOLE 20 MG CAPSULE.DR GT SCH (05:46)
[2019-12-17] MEDS: BACLOFEN 20 MG TABLET GT SCH ×3 (05:46→21:09)
[2019-12-17] MEDS: METOCLOPRAMIDE HCL 5 MG TABLET GT SCH ×3 (05:46→21:10)
[2019-12-17 06:56] LABS: BASOPHILS # (AUTO) 0.1 K/uL (0.0-8.0); EOSINOPHILS # (AUTO) 0.5 K/uL (0.0-0.7); EOSINOPHILS % (AUTO) 7.1 % (0.0-7.0); HEMATOCRIT 30.9 % (31.2-41.9); HEMOGLOBIN 10.8 g/dL (10.9-14.3); LYMPHOCYTES # (AUTO) 2.4 K/uL (20.0-40.0); LYMPHOCYTES % (AUTO) 37.3 % (20.5-51.5); MEAN CORPUSCULAR HEMOGLOBIN 32.3 uug (24.7-32.8); MEAN CORPUSCULAR HGB CONC 35 g/dL (32.3-35.6); MEAN CORPUSCULAR VOLUME 92.2 fL (75.5-95.3); MONOCYTES # (AUTO) 0.6 K/uL (2.0-10.0); MONOCYTES % (AUTO) 9.1 % (0.0-11.0); NEUTROPHILS # (AUTO) 2.9 K/uL (1.8-8.9); NEUTROPHILS % (AUTO) 45.5 % (38.5-71.5); PLATELET COUNT (AUTO) 253 K/uL (179-408); RED BLOOD CELL COUNT(AUTO) 3.35 MIL/uL (3.63-4.92); WHITE BLOOD COUNT (AUTO) 6.4 K/uL (3.8-11.8)
[2019-12-17 07:19] LABS: CREATININE 0.7 mg/dL (0.6-1.3); MAGNESIUM 1.8 mg/dL (1.8-2.4); PHOSPHOROUS 3.3 mg/dL (2.5-4.9); POTASSIUM 4.1 mmol/L (3.5-5.1)
[2019-12-17 07:59] VITALS: BP 122/56
[2019-12-17] MEDS: DESMOPRESSIN 0.1 MG TABLET GT SCH (09:28)
[2019-12-17] MEDS: PHENYTOIN 100 MG/4 ML UDC GT SCH ×2 (09:29→20:43)
[2019-12-17] MEDS: ACIDOPHILUS/BULGARICUS CHEW TAB GT SCH ×2 (09:29→20:43)
[2019-12-17] MEDS: levETIRAcetam 500 MG/5 ML LIQUID UDC GT SCH ×2 (09:29→20:44)
[2019-12-17] MEDS: HYDROGEN PEROXIDE 3% 118 ML BOTTLE TP SCH ×2 (09:30→21:02)
[2019-12-17] MEDS: FUROSEMIDE 20 MG/2 ML GT SCH (09:30)
[2019-12-17] MEDS: POTASSIUM CHLORIDE 40 MEQ/30 ML LIQUID UDC GT SCH (09:30)
[2019-12-17] MEDS: COD LIVER OIL/ZINC OXIDE OINT 113 GM TUBE TOP SCH ×2 (09:31→20:46)
[2019-12-17] MEDS: TRIAMCINOLONE ACET 0.1% CREAM 15 GM TUBE TP SCH ×2 (09:45→21:09)
[2019-12-17] MEDS: NYSTATIN CREAM 30 GM TUBE TP SCH ×4 (09:45→21:09)
[2019-12-17] MEDS: NYSTATIN POWDER 15 GM BOTTLE TP SCH ×2 (09:46→21:09)
[2019-12-17 19:47] VITALS: BP 95/52
[2019-12-17] MEDS: FOLIC ACID 1 MG TABLET GT SCH (20:44)
[2019-12-17] MEDS: CHOLECALCIFEROL 1,000 UNIT TABLET GT SCH (20:46)
[2019-12-17] MEDS: THIAMINE HCL 100 MG TABLET GT SCH (20:46)
[2019-12-18] MEDS: IPRATROPIUM BROMIDE 0.5 MG/2.5 ML NEBU NEB SCH ×7 (00:23→23:55)
[2019-12-18] MEDS: ALBUTEROL SULFATE 2.5 MG/3 ML NEBU NEB SCH ×7 (00:23→23:55)
[2019-12-18] MEDS: BACLOFEN 10 MG TABLET GT SCH ×3 (05:27→22:03)
[2019-12-18] MEDS: BACLOFEN 20 MG TABLET GT SCH ×3 (05:27→22:03)
[2019-12-18] MEDS: MIDODRINE HCL 10 MG TABLET GT SCH ×3 (05:28→22:03)
[2019-12-18] MEDS: METOCLOPRAMIDE HCL 5 MG TABLET GT SCH ×3 (05:28→22:03)
[2019-12-18] MEDS: VITAL AF 1.2 1,000 ML LIQUID GT SCH (05:28)
[2019-12-18] MEDS: OMEPRAZOLE 20 MG CAPSULE.DR GT SCH (05:28)
[2019-12-18] MEDS: HYDROGEN PEROXIDE 3% 118 ML BOTTLE TP SCH ×2 (07:20→21:17)
[2019-12-18 07:47] VITALS: BP 110/67
[2019-12-18] MEDS: DESMOPRESSIN 0.1 MG TABLET GT SCH (09:40)
[2019-12-18] MEDS: levETIRAcetam 500 MG/5 ML LIQUID UDC GT SCH ×2 (09:41→20:45)
[2019-12-18] MEDS: ACIDOPHILUS/BULGARICUS CHEW TAB GT SCH ×2 (09:41→20:38)
[2019-12-18] MEDS: PHENYTOIN 100 MG/4 ML UDC GT SCH ×2 (09:41→20:38)
[2019-12-18] MEDS: FUROSEMIDE 20 MG/2 ML GT SCH (09:42)
[2019-12-18] MEDS: POTASSIUM CHLORIDE 40 MEQ/30 ML LIQUID UDC GT SCH (09:42)
[2019-12-18] MEDS: TRIAMCINOLONE ACET 0.1% CREAM 15 GM TUBE TP SCH ×2 (09:42→20:46)
[2019-12-18] MEDS: COD LIVER OIL/ZINC OXIDE OINT 113 GM TUBE TOP SCH ×2 (09:42→20:46)
[2019-12-18] MEDS: NYSTATIN POWDER 15 GM BOTTLE TP SCH ×2 (09:43→20:46)
[2019-12-18] MEDS: NYSTATIN CREAM 30 GM TUBE TP SCH ×4 (09:43→20:46)
[2019-12-18 20:02] VITALS: BP 101/54
[2019-12-18] MEDS: FOLIC ACID 1 MG TABLET GT SCH (20:38)
[2019-12-18] MEDS: CHOLECALCIFEROL 1,000 UNIT TABLET GT SCH (20:46)
[2019-12-18] MEDS: THIAMINE HCL 100 MG TABLET GT SCH (20:46)
[2019-12-19] MEDS: VITAL AF 1.2 1,000 ML LIQUID GT SCH (01:24)
[2019-12-19] MEDS: ALBUTEROL SULFATE 2.5 MG/3 ML NEBU NEB SCH ×6 (03:02→22:39)
[2019-12-19] MEDS: IPRATROPIUM BROMIDE 0.5 MG/2.5 ML NEBU NEB SCH ×6 (03:02→22:39)
[2019-12-19] MEDS: BACLOFEN 20 MG TABLET GT SCH ×3 (05:57→21:37)
[2019-12-19] MEDS: BACLOFEN 10 MG TABLET GT SCH ×3 (05:57→21:37)
[2019-12-19] MEDS: OMEPRAZOLE 20 MG CAPSULE.DR GT SCH (05:58)
[2019-12-19] MEDS: MIDODRINE HCL 10 MG TABLET GT SCH ×3 (05:58→21:38)
[2019-12-19] MEDS: METOCLOPRAMIDE HCL 5 MG TABLET GT SCH ×3 (05:58→21:38)
[2019-12-19 07:41] VITALS: BP 123/76
[2019-12-19] MEDS: DESMOPRESSIN 0.1 MG TABLET GT SCH (08:54)
[2019-12-19] MEDS: FUROSEMIDE 20 MG/2 ML GT SCH (08:54)
[2019-12-19] MEDS: NYSTATIN POWDER 15 GM BOTTLE TP SCH ×2 (08:54→21:37)
[2019-12-19] MEDS: levETIRAcetam 500 MG/5 ML LIQUID UDC GT SCH ×2 (08:54→21:37)
[2019-12-19] MEDS: POTASSIUM CHLORIDE 40 MEQ/30 ML LIQUID UDC GT SCH (08:54)
[2019-12-19] MEDS: PHENYTOIN 100 MG/4 ML UDC GT SCH ×2 (08:54→21:37)
[2019-12-19] MEDS: TRIAMCINOLONE ACET 0.1% CREAM 15 GM TUBE TP SCH ×2 (08:54→21:37)
[2019-12-19] MEDS: COD LIVER OIL/ZINC OXIDE OINT 113 GM TUBE TOP SCH ×2 (08:54→21:37)
[2019-12-19] MEDS: ACIDOPHILUS/BULGARICUS CHEW TAB GT SCH ×2 (08:54→21:37)
[2019-12-19] MEDS: NYSTATIN CREAM 30 GM TUBE TP SCH ×4 (08:54→21:37)
[2019-12-19] MEDS: HYDROGEN PEROXIDE 3% 118 ML BOTTLE TP SCH ×2 (09:00→21:18)
--- NOTE | 2019-12-19 18:58 | NUR ---
Received pt on HT-50 ventilator with the following settings of SIMV-12, Vt-500, PEEP+5, PS-10, FIO2-2LPM bleed in, trached with Susyley#6 DCT trach, which is in the place and secure. No SOB noted. Airway care done, pt responded to physical stimuli. In-line HHN tx with 2.5mg Albuterol+0.5mg Atrovent given, pt tolerated well. HME changed. Pt has a gauze between her lips to prevent biting. Resus. bag and back up trach at bedside. Vent and alarms checked and reset.
[2019-12-19 20:44] VITALS: BP 97/52
[2019-12-19] MEDS: FOLIC ACID 1 MG TABLET GT SCH (21:37)
[2019-12-19] MEDS: CHOLECALCIFEROL 1,000 UNIT TABLET GT SCH (21:37)
[2019-12-19] MEDS: THIAMINE HCL 100 MG TABLET GT SCH (21:37)
[2019-12-20] MEDS: ALBUTEROL SULFATE 2.5 MG/3 ML NEBU NEB SCH ×6 (02:38→22:30)
[2019-12-20] MEDS: IPRATROPIUM BROMIDE 0.5 MG/2.5 ML NEBU NEB SCH ×6 (02:38→22:30)
[2019-12-20] MEDS: MIDODRINE HCL 10 MG TABLET GT SCH ×3 (05:01→21:26)
[2019-12-20] MEDS: BACLOFEN 10 MG TABLET GT SCH ×3 (05:01→21:25)
[2019-12-20] MEDS: BACLOFEN 20 MG TABLET GT SCH ×3 (05:01→21:25)
[2019-12-20] MEDS: METOCLOPRAMIDE HCL 5 MG TABLET GT SCH ×3 (05:01→21:26)
[2019-12-20] MEDS: OMEPRAZOLE 20 MG CAPSULE.DR GT SCH (05:01)
[2019-12-20] MEDS: VITAL AF 1.2 1,000 ML LIQUID GT SCH (06:43)
[2019-12-20 07:25] VITALS: BP 106/70
[2019-12-20] MEDS: PHENYTOIN 100 MG/4 ML UDC GT SCH ×2 (08:43→21:22)
[2019-12-20] MEDS: DESMOPRESSIN 0.1 MG TABLET GT SCH (08:43)
[2019-12-20] MEDS: levETIRAcetam 500 MG/5 ML LIQUID UDC GT SCH ×2 (08:45→21:22)
[2019-12-20] MEDS: ACIDOPHILUS/BULGARICUS CHEW TAB GT SCH ×2 (08:45→21:22)
[2019-12-20] MEDS: FUROSEMIDE 20 MG/2 ML GT SCH (08:47)
[2019-12-20] MEDS: POTASSIUM CHLORIDE 40 MEQ/30 ML LIQUID UDC GT SCH (08:47)
[2019-12-20] MEDS: TRIAMCINOLONE ACET 0.1% CREAM 15 GM TUBE TP SCH (08:48)
[2019-12-20] MEDS: COD LIVER OIL/ZINC OXIDE OINT 113 GM TUBE TOP SCH ×2 (08:48→21:24)
[2019-12-20] MEDS: NYSTATIN CREAM 30 GM TUBE TP SCH ×4 (08:48→21:24)
[2019-12-20] MEDS: NYSTATIN POWDER 15 GM BOTTLE TP SCH ×2 (08:48→21:24)
[2019-12-20] MEDS: HYDROGEN PEROXIDE 3% 118 ML BOTTLE TP SCH ×2 (09:00→21:29)
[2019-12-20 20:00] VITALS: BP 104/62
[2019-12-20] MEDS: FOLIC ACID 1 MG TABLET GT SCH (21:21)
[2019-12-20] MEDS: CHOLECALCIFEROL 1,000 UNIT TABLET GT SCH (21:24)
[2019-12-20] MEDS: THIAMINE HCL 100 MG TABLET GT SCH (21:24)
[2019-12-21] MEDS: IPRATROPIUM BROMIDE 0.5 MG/2.5 ML NEBU NEB SCH ×6 (02:38→23:30)
[2019-12-21] MEDS: ALBUTEROL SULFATE 2.5 MG/3 ML NEBU NEB SCH ×6 (02:38→23:30)
[2019-12-21] MEDS: MIDODRINE HCL 10 MG TABLET GT SCH ×3 (05:12→21:29)
[2019-12-21] MEDS: BACLOFEN 10 MG TABLET GT SCH ×3 (05:12→21:28)
[2019-12-21] MEDS: BACLOFEN 20 MG TABLET GT SCH ×3 (05:12→21:28)
[2019-12-21] MEDS: METOCLOPRAMIDE HCL 5 MG TABLET GT SCH ×3 (05:13→22:00)
[2019-12-21] MEDS: OMEPRAZOLE 20 MG CAPSULE.DR GT SCH (05:13)
[2019-12-21 07:37] VITALS: BP_SYST 105
[2019-12-21 07:38] VITALS: BP_DIAS 60
[2019-12-21] MEDS: NYSTATIN POWDER 15 GM BOTTLE TP SCH ×2 (09:00→20:37)
[2019-12-21] MEDS: NYSTATIN CREAM 30 GM TUBE TP SCH ×4 (09:00→20:37)
[2019-12-21] MEDS: DESMOPRESSIN 0.1 MG TABLET GT SCH (09:04)
[2019-12-21] MEDS: PHENYTOIN 100 MG/4 ML UDC GT SCH ×2 (09:04→21:28)
[2019-12-21] MEDS: levETIRAcetam 500 MG/5 ML LIQUID UDC GT SCH ×2 (09:05→20:37)
[2019-12-21] MEDS: ACIDOPHILUS/BULGARICUS CHEW TAB GT SCH ×2 (09:05→20:37)
[2019-12-21] MEDS: FUROSEMIDE 20 MG/2 ML GT SCH (09:06)
[2019-12-21] MEDS: POTASSIUM CHLORIDE 40 MEQ/30 ML LIQUID UDC GT SCH (09:08)
[2019-12-21] MEDS: COD LIVER OIL/ZINC OXIDE OINT 113 GM TUBE TOP SCH ×2 (09:08→20:37)
[2019-12-21] MEDS: HYDROGEN PEROXIDE 3% 118 ML BOTTLE TP SCH ×2 (09:30→21:19)
--- NOTE | 2019-12-21 11:30 | NUR ---
Assisted video chat with pts mother at this time.
[2019-12-21 20:10] VITALS: BP 92/51
[2019-12-21] MEDS: FOLIC ACID 1 MG TABLET GT SCH (20:37)
[2019-12-21] MEDS: THIAMINE HCL 100 MG TABLET GT SCH (20:37)
[2019-12-21] MEDS: CHOLECALCIFEROL 1,000 UNIT TABLET GT SCH (20:37)
[2019-12-22] MEDS: IPRATROPIUM BROMIDE 0.5 MG/2.5 ML NEBU NEB SCH ×5 (03:37→19:23)
[2019-12-22] MEDS: ALBUTEROL SULFATE 2.5 MG/3 ML NEBU NEB SCH ×5 (03:37→19:23)
[2019-12-22] MEDS: BACLOFEN 10 MG TABLET GT SCH ×3 (06:19→21:03)
[2019-12-22] MEDS: OMEPRAZOLE 20 MG CAPSULE.DR GT SCH (06:19)
[2019-12-22] MEDS: MIDODRINE HCL 10 MG TABLET GT SCH ×3 (06:19→21:04)
[2019-12-22] MEDS: BACLOFEN 20 MG TABLET GT SCH ×3 (06:19→21:03)
[2019-12-22] MEDS: METOCLOPRAMIDE HCL 5 MG TABLET GT SCH ×3 (06:19→21:05)
[2019-12-22] MEDS: VITAL AF 1.2 1,000 ML LIQUID GT SCH (06:40)
[2019-12-22 07:31] VITALS: BP 95/56
[2019-12-22] MEDS: HYDROGEN PEROXIDE 3% 118 ML BOTTLE TP SCH ×2 (07:36→21:00)
[2019-12-22] MEDS: DESMOPRESSIN 0.1 MG TABLET GT SCH (08:52)
[2019-12-22] MEDS: ACIDOPHILUS/BULGARICUS CHEW TAB GT SCH ×2 (08:52→20:54)
[2019-12-22] MEDS: PHENYTOIN 100 MG/4 ML UDC GT SCH ×2 (08:52→20:54)
[2019-12-22] MEDS: levETIRAcetam 500 MG/5 ML LIQUID UDC GT SCH ×2 (08:54→20:54)
[2019-12-22] MEDS: FUROSEMIDE 20 MG/2 ML GT SCH (08:54)
[2019-12-22] MEDS: COD LIVER OIL/ZINC OXIDE OINT 113 GM TUBE TOP SCH ×2 (08:55→20:55)
[2019-12-22] MEDS: POTASSIUM CHLORIDE 40 MEQ/30 ML LIQUID UDC GT SCH (08:55)
[2019-12-22] MEDS: NYSTATIN CREAM 30 GM TUBE TP SCH ×4 (09:45→20:55)
[2019-12-22] MEDS: NYSTATIN POWDER 15 GM BOTTLE TP SCH ×2 (09:45→20:55)
[2019-12-22 20:16] VITALS: BP 128/68
[2019-12-22] MEDS: FOLIC ACID 1 MG TABLET GT SCH (20:54)
[2019-12-22] MEDS: CHOLECALCIFEROL 1,000 UNIT TABLET GT SCH (20:54)
[2019-12-22] MEDS: THIAMINE HCL 100 MG TABLET GT SCH (20:54)
[2019-12-23] MEDS: ALBUTEROL SULFATE 2.5 MG/3 ML NEBU NEB SCH ×7 (00:04→23:45)
[2019-12-23] MEDS: IPRATROPIUM BROMIDE 0.5 MG/2.5 ML NEBU NEB SCH ×7 (00:04→23:45)
[2019-12-23] MEDS: BACLOFEN 10 MG TABLET GT SCH ×3 (05:07→21:47)
[2019-12-23] MEDS: BACLOFEN 20 MG TABLET GT SCH ×3 (05:07→21:47)
[2019-12-23] MEDS: MIDODRINE HCL 10 MG TABLET GT SCH ×3 (05:08→21:47)
[2019-12-23] MEDS: METOCLOPRAMIDE HCL 5 MG TABLET GT SCH ×3 (05:08→21:47)
[2019-12-23] MEDS: OMEPRAZOLE 20 MG CAPSULE.DR GT SCH (05:08)
[2019-12-23 07:44] VITALS: BP 120/78
[2019-12-23] MEDS: HYDROGEN PEROXIDE 3% 118 ML BOTTLE TP SCH ×2 (09:01→21:30)
[2019-12-23] MEDS: DESMOPRESSIN 0.1 MG TABLET GT SCH (09:14)
[2019-12-23] MEDS: PHENYTOIN 100 MG/4 ML UDC GT SCH ×2 (09:14→21:46)
[2019-12-23] MEDS: FUROSEMIDE 20 MG/2 ML GT SCH (09:16)
[2019-12-23] MEDS: ACIDOPHILUS/BULGARICUS CHEW TAB GT SCH ×2 (09:16→21:46)
[2019-12-23] MEDS: levETIRAcetam 500 MG/5 ML LIQUID UDC GT SCH ×2 (09:16→21:46)
[2019-12-23] MEDS: COD LIVER OIL/ZINC OXIDE OINT 113 GM TUBE TOP SCH ×2 (09:17→21:46)
[2019-12-23] MEDS: POTASSIUM CHLORIDE 40 MEQ/30 ML LIQUID UDC GT SCH (09:17)
[2019-12-23] MEDS: NYSTATIN CREAM 30 GM TUBE TP SCH ×4 (09:18→21:46)
[2019-12-23] MEDS: NYSTATIN POWDER 15 GM BOTTLE TP SCH ×2 (09:18→21:47)
--- NOTE | 2019-12-23 15:30 | NUR ---
Video chat done with pt's mother at this time.
[2019-12-23 20:04] VITALS: BP 123/70
[2019-12-23] MEDS: FOLIC ACID 1 MG TABLET GT SCH (21:46)
[2019-12-23] MEDS: THIAMINE HCL 100 MG TABLET GT SCH (21:46)
[2019-12-23] MEDS: CHOLECALCIFEROL 1,000 UNIT TABLET GT SCH (21:46)
[2019-12-23 22:04] VITALS: BP 101/61
[2019-12-24] MEDS: IPRATROPIUM BROMIDE 0.5 MG/2.5 ML NEBU NEB SCH ×6 (04:05→23:05)
[2019-12-24] MEDS: ALBUTEROL SULFATE 2.5 MG/3 ML NEBU NEB SCH ×6 (04:05→23:06)
[2019-12-24] MEDS: BACLOFEN 20 MG TABLET GT SCH ×3 (05:50→22:19)
[2019-12-24] MEDS: BACLOFEN 10 MG TABLET GT SCH ×3 (05:50→22:19)
[2019-12-24] MEDS: METOCLOPRAMIDE HCL 5 MG TABLET GT SCH ×3 (05:51→22:20)
[2019-12-24] MEDS: OMEPRAZOLE 20 MG CAPSULE.DR GT SCH (05:51)
[2019-12-24] MEDS: MIDODRINE HCL 10 MG TABLET GT SCH ×3 (05:51→22:00)
[2019-12-24] MEDS: VITAL AF 1.2 1,000 ML LIQUID GT SCH (05:52)
[2019-12-24] MEDS: HYDROGEN PEROXIDE 3% 118 ML BOTTLE TP SCH ×2 (07:25→21:28)
[2019-12-24 07:45] VITALS: BP 117/61
[2019-12-24] MEDS: PHENYTOIN 100 MG/4 ML UDC GT SCH ×2 (09:09→20:46)
[2019-12-24] MEDS: NYSTATIN CREAM 30 GM TUBE TP SCH ×4 (09:09→20:46)
[2019-12-24] MEDS: COD LIVER OIL/ZINC OXIDE OINT 113 GM TUBE TOP SCH ×2 (09:09→20:46)
[2019-12-24] MEDS: FUROSEMIDE 20 MG/2 ML GT SCH (09:09)
[2019-12-24] MEDS: levETIRAcetam 500 MG/5 ML LIQUID UDC GT SCH ×2 (09:09→20:46)
[2019-12-24] MEDS: DESMOPRESSIN 0.1 MG TABLET GT SCH (09:09)
[2019-12-24] MEDS: POTASSIUM CHLORIDE 40 MEQ/30 ML LIQUID UDC GT SCH (09:09)
[2019-12-24] MEDS: NYSTATIN POWDER 15 GM BOTTLE TP SCH ×2 (09:09→20:46)
[2019-12-24] MEDS: ACIDOPHILUS/BULGARICUS CHEW TAB GT SCH ×2 (09:09→20:46)
--- NOTE | 2019-12-24 18:55 | NUR ---
PT RECEIVED ON CONTINUOUS VENT, TRACH CARE DONE. TRACH IN PLACED AND SECURED WITH TRACH TIE. AMBU BAG AND BACK-UP TRACH AT BEDSIDE. IN LINE TX GIVEN WITH UD ALBUTEROL+ UD ATROVENT ORDERED. SUCTION PRN. VENT ALARMS AUDIBLE, CHECKED AND RESET. NO DISTRESS NOTED AT THIS TIME. WILL CONTINUE TO MONITOR.
[2019-12-24 20:00] VITALS: BP 118/70
[2019-12-24] MEDS: CHOLECALCIFEROL 1,000 UNIT TABLET GT SCH (20:46)
[2019-12-24] MEDS: THIAMINE HCL 100 MG TABLET GT SCH (20:46)
[2019-12-24] MEDS: FOLIC ACID 1 MG TABLET GT SCH (20:46)
[2019-12-25] MEDS: IPRATROPIUM BROMIDE 0.5 MG/2.5 ML NEBU NEB SCH ×6 (03:10→23:17)
[2019-12-25] MEDS: ALBUTEROL SULFATE 2.5 MG/3 ML NEBU NEB SCH ×6 (03:10→23:17)
[2019-12-25] MEDS: VITAL AF 1.2 1,000 ML LIQUID GT SCH (04:33)
[2019-12-25] MEDS: BACLOFEN 20 MG TABLET GT SCH ×3 (05:36→22:08)
[2019-12-25] MEDS: BACLOFEN 10 MG TABLET GT SCH ×3 (05:36→22:08)
[2019-12-25] MEDS: METOCLOPRAMIDE HCL 5 MG TABLET GT SCH ×3 (05:37→22:09)
[2019-12-25] MEDS: OMEPRAZOLE 20 MG CAPSULE.DR GT SCH (05:37)
[2019-12-25] MEDS: MIDODRINE HCL 10 MG TABLET GT SCH ×3 (05:37→22:00)
[2019-12-25 07:50] VITALS: BP 107/68
[2019-12-25] MEDS: HYDROGEN PEROXIDE 3% 118 ML BOTTLE TP SCH ×2 (08:35→21:35)
[2019-12-25] MEDS: FUROSEMIDE 20 MG/2 ML GT SCH (08:43)
[2019-12-25] MEDS: levETIRAcetam 500 MG/5 ML LIQUID UDC GT SCH ×2 (08:43→20:50)
[2019-12-25] MEDS: PHENYTOIN 100 MG/4 ML UDC GT SCH ×2 (08:43→20:50)
[2019-12-25] MEDS: POTASSIUM CHLORIDE 40 MEQ/30 ML LIQUID UDC GT SCH (08:43)
[2019-12-25] MEDS: DESMOPRESSIN 0.1 MG TABLET GT SCH (08:43)
[2019-12-25] MEDS: NYSTATIN POWDER 15 GM BOTTLE TP SCH ×2 (08:43→20:50)
[2019-12-25] MEDS: ACIDOPHILUS/BULGARICUS CHEW TAB GT SCH ×2 (08:43→20:50)
[2019-12-25] MEDS: NYSTATIN CREAM 30 GM TUBE TP SCH ×4 (08:43→20:50)
[2019-12-25] MEDS: COD LIVER OIL/ZINC OXIDE OINT 113 GM TUBE TOP SCH ×2 (08:43→20:50)
[2019-12-25] MEDS: FOLIC ACID 1 MG TABLET GT SCH (20:50)
[2019-12-25] MEDS: CHOLECALCIFEROL 1,000 UNIT TABLET GT SCH (20:50)
[2019-12-25] MEDS: THIAMINE HCL 100 MG TABLET GT SCH (20:50)
[2019-12-25 23:36] VITALS: BP 124/71
[2019-12-26] MEDS: ALBUTEROL SULFATE 2.5 MG/3 ML NEBU NEB SCH ×6 (03:11→23:14)
[2019-12-26] MEDS: IPRATROPIUM BROMIDE 0.5 MG/2.5 ML NEBU NEB SCH ×6 (03:11→23:14)
[2019-12-26] MEDS: OMEPRAZOLE 20 MG CAPSULE.DR GT SCH (05:41)
[2019-12-26] MEDS: METOCLOPRAMIDE HCL 5 MG TABLET GT SCH ×3 (05:41→21:09)
[2019-12-26] MEDS: MIDODRINE HCL 10 MG TABLET GT SCH ×3 (05:41→21:09)
[2019-12-26] MEDS: BACLOFEN 10 MG TABLET GT SCH ×3 (05:41→21:09)
[2019-12-26] MEDS: BACLOFEN 20 MG TABLET GT SCH ×3 (05:41→21:09)
[2019-12-26 07:33] VITALS: BP 104/59
[2019-12-26] MEDS: PHENYTOIN 100 MG/4 ML UDC GT SCH ×2 (08:45→21:08)
[2019-12-26] MEDS: POTASSIUM CHLORIDE 40 MEQ/30 ML LIQUID UDC GT SCH (08:45)
[2019-12-26] MEDS: levETIRAcetam 500 MG/5 ML LIQUID UDC GT SCH ×2 (08:45→21:08)
[2019-12-26] MEDS: NYSTATIN CREAM 30 GM TUBE TP SCH ×4 (08:45→21:09)
[2019-12-26] MEDS: FUROSEMIDE 20 MG/2 ML GT SCH (08:45)
[2019-12-26] MEDS: DESMOPRESSIN 0.1 MG TABLET GT SCH (08:45)
[2019-12-26] MEDS: NYSTATIN POWDER 15 GM BOTTLE TP SCH ×2 (08:45→21:09)
[2019-12-26] MEDS: COD LIVER OIL/ZINC OXIDE OINT 113 GM TUBE TOP SCH ×2 (08:45→21:08)
[2019-12-26] MEDS: ACIDOPHILUS/BULGARICUS CHEW TAB GT SCH ×2 (08:45→21:08)
[2019-12-26] MEDS: HYDROGEN PEROXIDE 3% 118 ML BOTTLE TP SCH ×2 (09:27→21:48)
--- NOTE | 2019-12-26 18:22 | NUR ---
SEEN BY EMMY Agustin AND WITH NNO.
[2019-12-26 20:34] VITALS: BP 98/63
[2019-12-26] MEDS: FOLIC ACID 1 MG TABLET GT SCH (21:08)
[2019-12-26] MEDS: THIAMINE HCL 100 MG TABLET GT SCH (21:08)
[2019-12-26] MEDS: CHOLECALCIFEROL 1,000 UNIT TABLET GT SCH (21:08)
[2019-12-27] MEDS: ALBUTEROL SULFATE 2.5 MG/3 ML NEBU NEB SCH ×6 (02:40→23:55)
[2019-12-27] MEDS: IPRATROPIUM BROMIDE 0.5 MG/2.5 ML NEBU NEB SCH ×6 (02:40→23:55)
[2019-12-27] MEDS: VITAL AF 1.2 1,000 ML LIQUID GT SCH (02:59)
[2019-12-27] MEDS: OMEPRAZOLE 20 MG CAPSULE.DR GT SCH (05:58)
[2019-12-27] MEDS: BACLOFEN 10 MG TABLET GT SCH ×3 (05:58→21:40)
[2019-12-27] MEDS: METOCLOPRAMIDE HCL 5 MG TABLET GT SCH ×3 (05:58→21:41)
[2019-12-27] MEDS: BACLOFEN 20 MG TABLET GT SCH ×3 (05:58→21:40)
[2019-12-27] MEDS: MIDODRINE HCL 10 MG TABLET GT SCH ×3 (05:59→21:41)
[2019-12-27 07:51] VITALS: BP 124/72
[2019-12-27] MEDS: POTASSIUM CHLORIDE 40 MEQ/30 ML LIQUID UDC GT SCH (08:49)
[2019-12-27] MEDS: ACIDOPHILUS/BULGARICUS CHEW TAB GT SCH ×2 (08:49→21:37)
[2019-12-27] MEDS: FUROSEMIDE 20 MG/2 ML GT SCH (08:49)
[2019-12-27] MEDS: levETIRAcetam 500 MG/5 ML LIQUID UDC GT SCH ×2 (08:49→21:38)
[2019-12-27] MEDS: NYSTATIN CREAM 30 GM TUBE TP SCH ×4 (08:49→21:40)
[2019-12-27] MEDS: DESMOPRESSIN 0.1 MG TABLET GT SCH (08:49)
[2019-12-27] MEDS: PHENYTOIN 100 MG/4 ML UDC GT SCH ×2 (08:49→21:35)
[2019-12-27] MEDS: COD LIVER OIL/ZINC OXIDE OINT 113 GM TUBE TOP SCH ×2 (08:49→21:40)
[2019-12-27] MEDS: NYSTATIN POWDER 15 GM BOTTLE TP SCH ×2 (08:49→21:40)
[2019-12-27] MEDS: HYDROGEN PEROXIDE 3% 118 ML BOTTLE TP SCH ×2 (09:51→21:07)
[2019-12-27 20:03] VITALS: BP 95/58
[2019-12-27] MEDS: FOLIC ACID 1 MG TABLET GT SCH (21:37)
[2019-12-27] MEDS: THIAMINE HCL 100 MG TABLET GT SCH (21:39)
[2019-12-27] MEDS: CHOLECALCIFEROL 1,000 UNIT TABLET GT SCH (21:40)
[2019-12-28] MEDS: ALBUTEROL SULFATE 2.5 MG/3 ML NEBU NEB SCH ×6 (03:38→22:40)
[2019-12-28] MEDS: IPRATROPIUM BROMIDE 0.5 MG/2.5 ML NEBU NEB SCH ×6 (03:38→22:40)
[2019-12-28] MEDS: VITAL AF 1.2 1,000 ML LIQUID GT SCH (04:54)
[2019-12-28] MEDS: BACLOFEN 10 MG TABLET GT SCH ×3 (06:26→21:24)
[2019-12-28] MEDS: BACLOFEN 20 MG TABLET GT SCH ×3 (06:26→21:24)
[2019-12-28] MEDS: MIDODRINE HCL 10 MG TABLET GT SCH ×3 (06:26→21:24)
[2019-12-28] MEDS: METOCLOPRAMIDE HCL 5 MG TABLET GT SCH ×3 (06:26→21:24)
[2019-12-28] MEDS: OMEPRAZOLE 20 MG CAPSULE.DR GT SCH (06:26)
[2019-12-28 07:39] VITALS: BP 103/72
[2019-12-28] MEDS: COD LIVER OIL/ZINC OXIDE OINT 113 GM TUBE TOP SCH ×2 (09:00→21:23)
[2019-12-28] MEDS: NYSTATIN CREAM 30 GM TUBE TP SCH ×4 (09:00→21:23)
[2019-12-28] MEDS: FUROSEMIDE 20 MG/2 ML GT SCH (09:00)
[2019-12-28] MEDS: NYSTATIN POWDER 15 GM BOTTLE TP SCH ×2 (09:00→21:24)
[2019-12-28] MEDS: POTASSIUM CHLORIDE 40 MEQ/30 ML LIQUID UDC GT SCH (09:00)
[2019-12-28] MEDS: PHENYTOIN 100 MG/4 ML UDC GT SCH ×2 (09:00→21:17)
[2019-12-28] MEDS: ACIDOPHILUS/BULGARICUS CHEW TAB GT SCH ×2 (09:00→21:20)
[2019-12-28] MEDS: levETIRAcetam 500 MG/5 ML LIQUID UDC GT SCH ×2 (09:00→21:23)
[2019-12-28] MEDS: DESMOPRESSIN 0.1 MG TABLET GT SCH (09:00)
[2019-12-28] MEDS: HYDROGEN PEROXIDE 3% 118 ML BOTTLE TP SCH ×2 (09:07→21:01)
[2019-12-28 20:00] VITALS: BP 97/51
[2019-12-28] MEDS: CHOLECALCIFEROL 1,000 UNIT TABLET GT SCH (21:23)
[2019-12-28] MEDS: THIAMINE HCL 100 MG TABLET GT SCH (21:23)
[2019-12-28] MEDS: FOLIC ACID 1 MG TABLET GT SCH (21:23)
[2019-12-29] MEDS: ALBUTEROL SULFATE 2.5 MG/3 ML NEBU NEB SCH ×6 (02:30→22:38)
[2019-12-29] MEDS: IPRATROPIUM BROMIDE 0.5 MG/2.5 ML NEBU NEB SCH ×6 (02:30→22:38)
[2019-12-29] MEDS: BACLOFEN 20 MG TABLET GT SCH ×3 (05:56→21:18)
[2019-12-29] MEDS: BACLOFEN 10 MG TABLET GT SCH ×3 (05:56→21:18)
[2019-12-29] MEDS: OMEPRAZOLE 20 MG CAPSULE.DR GT SCH (05:57)
[2019-12-29] MEDS: MIDODRINE HCL 10 MG TABLET GT SCH ×3 (05:57→21:19)
[2019-12-29] MEDS: METOCLOPRAMIDE HCL 5 MG TABLET GT SCH ×3 (05:57→21:19)
[2019-12-29 07:29] VITALS: BP 101/62
[2019-12-29] MEDS: HYDROGEN PEROXIDE 3% 118 ML BOTTLE TP SCH ×2 (07:41→21:09)
[2019-12-29] MEDS: PHENYTOIN 100 MG/4 ML UDC GT SCH ×2 (08:46→21:15)
[2019-12-29] MEDS: DESMOPRESSIN 0.1 MG TABLET GT SCH (08:46)
[2019-12-29] MEDS: ACIDOPHILUS/BULGARICUS CHEW TAB GT SCH ×2 (08:46→21:15)
[2019-12-29] MEDS: levETIRAcetam 500 MG/5 ML LIQUID UDC GT SCH ×2 (08:50→21:17)
[2019-12-29] MEDS: COD LIVER OIL/ZINC OXIDE OINT 113 GM TUBE TOP SCH ×2 (08:51→21:18)
[2019-12-29] MEDS: NYSTATIN CREAM 30 GM TUBE TP SCH ×4 (08:51→21:18)
[2019-12-29] MEDS: POTASSIUM CHLORIDE 40 MEQ/30 ML LIQUID UDC GT SCH (08:51)
[2019-12-29] MEDS: FUROSEMIDE 20 MG/2 ML GT SCH (08:51)
[2019-12-29] MEDS: NYSTATIN POWDER 15 GM BOTTLE TP SCH ×2 (08:52→21:18)
--- NOTE | 2019-12-29 11:00 | NUR ---
provided zoom for patient with mother.
--- NOTE | 2019-12-29 18:42 | NUR ---
SEEN AND EXAMINED BY DR. WORTHINGTON WITH NEW ORDERS, NOTED AND CARRIED OUT.
[2019-12-29 20:43] VITALS: BP 100/61
[2019-12-29] MEDS: FOLIC ACID 1 MG TABLET GT SCH (21:17)
[2019-12-29] MEDS: THIAMINE HCL 100 MG TABLET GT SCH (21:17)
[2019-12-29] MEDS: CHOLECALCIFEROL 1,000 UNIT TABLET GT SCH (21:18)
[2019-12-30] MEDS: IPRATROPIUM BROMIDE 0.5 MG/2.5 ML NEBU NEB SCH ×5 (02:30→19:30)
[2019-12-30] MEDS: ALBUTEROL SULFATE 2.5 MG/3 ML NEBU NEB SCH ×5 (02:30→19:30)
[2019-12-30] MEDS: BACLOFEN 10 MG TABLET GT SCH ×3 (06:22→21:16)
[2019-12-30] MEDS: METOCLOPRAMIDE HCL 5 MG TABLET GT SCH ×3 (06:22→21:17)
[2019-12-30] MEDS: OMEPRAZOLE 20 MG CAPSULE.DR GT SCH (06:22)
[2019-12-30] MEDS: BACLOFEN 20 MG TABLET GT SCH ×3 (06:22→21:16)
[2019-12-30] MEDS: MIDODRINE HCL 10 MG TABLET GT SCH ×3 (06:22→21:17)
[2019-12-30 07:45] VITALS: BP 113/71
[2019-12-30] MEDS: POTASSIUM CHLORIDE 40 MEQ/30 ML LIQUID UDC GT SCH (08:02)
[2019-12-30] MEDS: levETIRAcetam 500 MG/5 ML LIQUID UDC GT SCH ×2 (08:02→20:21)
[2019-12-30] MEDS: FUROSEMIDE 20 MG/2 ML GT SCH (08:02)
[2019-12-30] MEDS: DESMOPRESSIN 0.1 MG TABLET GT SCH (08:02)
[2019-12-30] MEDS: ACIDOPHILUS/BULGARICUS CHEW TAB GT SCH ×2 (08:02→20:21)
[2019-12-30] MEDS: PHENYTOIN 100 MG/4 ML UDC GT SCH ×2 (08:02→20:21)
[2019-12-30] MEDS: NYSTATIN CREAM 30 GM TUBE TP SCH ×4 (08:03→20:21)
[2019-12-30] MEDS: NYSTATIN POWDER 15 GM BOTTLE TP SCH ×2 (08:03→20:21)
[2019-12-30] MEDS: COD LIVER OIL/ZINC OXIDE OINT 113 GM TUBE TOP SCH ×2 (08:03→20:21)
[2019-12-30] MEDS: HYDROGEN PEROXIDE 3% 118 ML BOTTLE TP SCH ×2 (09:00→21:43)
[2019-12-30 19:58] VITALS: BP 98/58
[2019-12-30] MEDS: THIAMINE HCL 100 MG TABLET GT SCH (20:21)
[2019-12-30] MEDS: FOLIC ACID 1 MG TABLET GT SCH (20:21)
[2019-12-30] MEDS: CHOLECALCIFEROL 1,000 UNIT TABLET GT SCH (20:21)
[2019-12-31] MEDS: ALBUTEROL SULFATE 2.5 MG/3 ML NEBU NEB SCH ×7 (00:14→23:02)
[2019-12-31] MEDS: IPRATROPIUM BROMIDE 0.5 MG/2.5 ML NEBU NEB SCH ×7 (00:14→23:02)
[2019-12-31] MEDS: METOCLOPRAMIDE HCL 5 MG TABLET GT SCH ×3 (05:40→21:19)
[2019-12-31] MEDS: BACLOFEN 10 MG TABLET GT SCH ×3 (05:40→21:19)
[2019-12-31] MEDS: MIDODRINE HCL 10 MG TABLET GT SCH ×3 (05:40→21:19)
[2019-12-31] MEDS: BACLOFEN 20 MG TABLET GT SCH ×3 (05:40→21:19)
[2019-12-31] MEDS: OMEPRAZOLE 20 MG CAPSULE.DR GT SCH (05:40)
[2019-12-31 07:52] VITALS: BP 119/64
[2019-12-31 08:45] LABS: BASOPHILS % (AUTO) 0.7 % (0.0-2.0); EOSINOPHILS # (AUTO) 0.4 K/uL (0.0-0.7); EOSINOPHILS % (AUTO) 5.7 % (0.0-7.0); HEMOGLOBIN 11.6 g/dL (10.9-14.3); LYMPHOCYTES # (AUTO) 2.1 K/uL (20.0-40.0); LYMPHOCYTES % (AUTO) 29.7 % (20.5-51.5); MEAN CORPUSCULAR HEMOGLOBIN 31.4 uug (24.7-32.8); MEAN CORPUSCULAR HGB CONC 34 g/dL (32.3-35.6); MEAN CORPUSCULAR VOLUME 92.1 fL (75.5-95.3); MONOCYTES # (AUTO) 0.4 K/uL (2.0-10.0); NEUTROPHILS # (AUTO) 4.3 K/uL (1.8-8.9); NEUTROPHILS % (AUTO) 58.9 % (38.5-71.5); PLATELET COUNT (AUTO) 285 K/uL (179-408); RED BLOOD CELL COUNT(AUTO) 3.69 MIL/uL (3.63-4.92); WHITE BLOOD COUNT (AUTO) 7.2 K/uL (3.8-11.8)
[2019-12-31] MEDS: ACIDOPHILUS/BULGARICUS CHEW TAB GT SCH ×2 (08:48→20:21)
[2019-12-31] MEDS: DESMOPRESSIN 0.1 MG TABLET GT SCH (08:48)
[2019-12-31] MEDS: PHENYTOIN 100 MG/4 ML UDC GT SCH ×2 (08:48→20:21)
[2019-12-31] MEDS: levETIRAcetam 500 MG/5 ML LIQUID UDC GT SCH ×2 (08:48→20:21)
[2019-12-31] MEDS: COD LIVER OIL/ZINC OXIDE OINT 113 GM TUBE TOP SCH ×2 (08:49→20:21)
[2019-12-31] MEDS: NYSTATIN CREAM 30 GM TUBE TP SCH ×4 (08:49→20:21)
[2019-12-31] MEDS: NYSTATIN POWDER 15 GM BOTTLE TP SCH ×2 (08:49→20:21)
[2019-12-31] MEDS: FUROSEMIDE 20 MG/2 ML GT SCH (08:49)
[2019-12-31] MEDS: POTASSIUM CHLORIDE 40 MEQ/30 ML LIQUID UDC GT SCH (08:49)
[2019-12-31 09:03] LABS: CREATININE 0.7 mg/dL (0.6-1.3); MAGNESIUM 1.8 mg/dL (1.8-2.4); PHOSPHOROUS 3.9 mg/dL (2.5-4.9); POTASSIUM 3.6 mmol/L (3.5-5.1)
[2019-12-31] MEDS: HYDROGEN PEROXIDE 3% 118 ML BOTTLE TP SCH ×2 (09:40→21:18)
[2019-12-31] MEDS: VITAL AF 1.2 1,000 ML LIQUID GT SCH (14:34)
--- NOTE | 2019-12-31 19:35 | NUR ---
PT RECEIVED ON CONTINUOUS VENT, TRACH CARE DONE. TRACH IN PLACED AND SECURED WITH TRACH TIE. BACK-UP TRACH AND AMBU BAG AT BEDSIDE . IN LINE TX GIVEN WITH UD ALBUTEROL+ UD ATROVENT ORDERED. SUCTION PRN. VENT CHECKED, ALARMS AUDIBLE, CHECKED AND RESET. NO DISTRESS NOTED AT THIS TIME. WILL CONTINUE TO MONITOR.
[2019-12-31 20:16] VITALS: BP 98/62
[2019-12-31] MEDS: THIAMINE HCL 100 MG TABLET GT SCH (20:21)
[2019-12-31] MEDS: FOLIC ACID 1 MG TABLET GT SCH (20:21)
[2019-12-31] MEDS: CHOLECALCIFEROL 1,000 UNIT TABLET GT SCH (20:21)
[2020-01-01] MEDS: IPRATROPIUM BROMIDE 0.5 MG/2.5 ML NEBU NEB SCH ×5 (03:07→19:26)
[2020-01-01] MEDS: ALBUTEROL SULFATE 2.5 MG/3 ML NEBU NEB SCH ×5 (03:07→19:26)
[2020-01-01] MEDS: BACLOFEN 10 MG TABLET GT SCH ×3 (05:24→21:17)
[2020-01-01] MEDS: BACLOFEN 20 MG TABLET GT SCH ×3 (05:25→21:17)
[2020-01-01] MEDS: OMEPRAZOLE 20 MG CAPSULE.DR GT SCH (05:25)
[2020-01-01] MEDS: MIDODRINE HCL 10 MG TABLET GT SCH ×3 (05:25→21:17)
[2020-01-01] MEDS: METOCLOPRAMIDE HCL 5 MG TABLET GT SCH ×3 (05:25→21:17)
[2020-01-01] MEDS: DESMOPRESSIN 0.1 MG TABLET GT SCH (09:09)
[2020-01-01] MEDS: ACIDOPHILUS/BULGARICUS CHEW TAB GT SCH ×2 (09:11→20:18)
[2020-01-01] MEDS: PHENYTOIN 100 MG/4 ML UDC GT SCH ×2 (09:11→20:18)
[2020-01-01] MEDS: levETIRAcetam 500 MG/5 ML LIQUID UDC GT SCH ×2 (09:11→20:18)
[2020-01-01] MEDS: FUROSEMIDE 20 MG/2 ML GT SCH (09:12)
[2020-01-01] MEDS: POTASSIUM CHLORIDE 40 MEQ/30 ML LIQUID UDC GT SCH (09:12)
[2020-01-01] MEDS: COD LIVER OIL/ZINC OXIDE OINT 113 GM TUBE TOP SCH ×2 (09:13→20:18)
[2020-01-01] MEDS: NYSTATIN CREAM 30 GM TUBE TP SCH ×4 (09:13→20:18)
[2020-01-01] MEDS: NYSTATIN POWDER 15 GM BOTTLE TP SCH ×2 (09:13→20:19)
[2020-01-01] MEDS: HYDROGEN PEROXIDE 3% 118 ML BOTTLE TP SCH ×2 (09:29→21:18)
[2020-01-01] MEDS: VITAL AF 1.2 1,000 ML LIQUID GT SCH (11:55)
[2020-01-01] MEDS: CHOLECALCIFEROL 1,000 UNIT TABLET GT SCH (20:18)
[2020-01-01] MEDS: FOLIC ACID 1 MG TABLET GT SCH (20:18)
[2020-01-01] MEDS: THIAMINE HCL 100 MG TABLET GT SCH (20:18)
[2020-01-01 20:36] VITALS: BP 98/54
[2020-01-02] MEDS: ALBUTEROL SULFATE 2.5 MG/3 ML NEBU NEB SCH ×7 (00:04→22:39)
[2020-01-02] MEDS: IPRATROPIUM BROMIDE 0.5 MG/2.5 ML NEBU NEB SCH ×7 (00:04→22:39)
[2020-01-02] MEDS: MIDODRINE HCL 10 MG TABLET GT SCH ×3 (05:11→21:18)
[2020-01-02] MEDS: METOCLOPRAMIDE HCL 5 MG TABLET GT SCH ×3 (05:11→21:18)
[2020-01-02] MEDS: BACLOFEN 10 MG TABLET GT SCH ×3 (05:11→21:17)
[2020-01-02] MEDS: OMEPRAZOLE 20 MG CAPSULE.DR GT SCH (05:11)
[2020-01-02] MEDS: BACLOFEN 20 MG TABLET GT SCH ×3 (05:11→21:17)
[2020-01-02 07:30] VITALS: BP 106/56
[2020-01-02] MEDS: PHENYTOIN 100 MG/4 ML UDC GT SCH ×2 (08:44→21:20)
[2020-01-02] MEDS: DESMOPRESSIN 0.1 MG TABLET GT SCH (08:44)
[2020-01-02] MEDS: levETIRAcetam 500 MG/5 ML LIQUID UDC GT SCH ×2 (08:44→21:19)
[2020-01-02] MEDS: ACIDOPHILUS/BULGARICUS CHEW TAB GT SCH ×2 (08:44→21:16)
[2020-01-02] MEDS: POTASSIUM CHLORIDE 40 MEQ/30 ML LIQUID UDC GT SCH (08:46)
[2020-01-02] MEDS: FUROSEMIDE 20 MG/2 ML GT SCH (08:46)
[2020-01-02] MEDS: NYSTATIN POWDER 15 GM BOTTLE TP SCH ×2 (08:47→21:17)
[2020-01-02] MEDS: NYSTATIN CREAM 30 GM TUBE TP SCH ×4 (08:47→21:17)
[2020-01-02] MEDS: COD LIVER OIL/ZINC OXIDE OINT 113 GM TUBE TOP SCH ×2 (08:47→21:16)
[2020-01-02] MEDS: HYDROGEN PEROXIDE 3% 118 ML BOTTLE TP SCH ×2 (09:30→20:59)
[2020-01-02] MEDS: COD LIVER OIL/ZINC OXIDE OINT 113 GM TUBE TP SCH ×2 (10:11→21:16)
[2020-01-02] MEDS: VITAL AF 1.2 1,000 ML LIQUID GT SCH (13:29)
[2020-01-02 20:14] VITALS: BP 101/60
[2020-01-02] MEDS: FOLIC ACID 1 MG TABLET GT SCH (21:16)
[2020-01-02] MEDS: CHOLECALCIFEROL 1,000 UNIT TABLET GT SCH (21:16)
[2020-01-02] MEDS: THIAMINE HCL 100 MG TABLET GT SCH (21:19)
[2020-01-03] MEDS: IPRATROPIUM BROMIDE 0.5 MG/2.5 ML NEBU NEB SCH ×6 (02:38→22:30)
[2020-01-03] MEDS: ALBUTEROL SULFATE 2.5 MG/3 ML NEBU NEB SCH ×6 (02:38→22:30)
[2020-01-03] MEDS: BACLOFEN 20 MG TABLET GT SCH ×3 (05:53→22:01)
[2020-01-03] MEDS: BACLOFEN 10 MG TABLET GT SCH ×3 (05:53→22:01)
[2020-01-03] MEDS: OMEPRAZOLE 20 MG CAPSULE.DR GT SCH (05:54)
[2020-01-03] MEDS: MIDODRINE HCL 10 MG TABLET GT SCH ×3 (05:54→22:03)
[2020-01-03] MEDS: METOCLOPRAMIDE HCL 5 MG TABLET GT SCH ×3 (05:55→22:02)
[2020-01-03 07:36] VITALS: BP 95/56
[2020-01-03] MEDS: DESMOPRESSIN 0.1 MG TABLET GT SCH (09:01)
[2020-01-03] MEDS: PHENYTOIN 100 MG/4 ML UDC GT SCH ×2 (09:01→20:30)
[2020-01-03] MEDS: levETIRAcetam 500 MG/5 ML LIQUID UDC GT SCH ×2 (09:01→20:31)
[2020-01-03] MEDS: ACIDOPHILUS/BULGARICUS CHEW TAB GT SCH ×2 (09:01→20:30)
[2020-01-03] MEDS: POTASSIUM CHLORIDE 40 MEQ/30 ML LIQUID UDC GT SCH (09:02)
[2020-01-03] MEDS: COD LIVER OIL/ZINC OXIDE OINT 113 GM TUBE TOP SCH ×2 (09:02→20:32)
[2020-01-03] MEDS: COD LIVER OIL/ZINC OXIDE OINT 113 GM TUBE TP SCH ×2 (09:02→20:32)
[2020-01-03] MEDS: FUROSEMIDE 20 MG/2 ML GT SCH (09:02)
[2020-01-03] MEDS: NYSTATIN CREAM 30 GM TUBE TP SCH ×2 (09:03)
[2020-01-03] MEDS: NYSTATIN POWDER 15 GM BOTTLE TP SCH ×6 (09:03→20:33)
[2020-01-03] MEDS: VITAL AF 1.2 1,000 ML LIQUID GT SCH (09:30)
[2020-01-03] MEDS: HYDROGEN PEROXIDE 3% 118 ML BOTTLE TP SCH ×2 (09:49→20:59)
--- NOTE | 2020-01-03 14:05 | NUR ---
patient with a temperature of 94.7, Som hugger applied as ordered. will continue monitoring.
--- NOTE | 2020-01-03 14:31 | NUR ---
Pharmacy Update from Today's 01/03/20 IDT Meeting VS: Temp 98.2 BP 104/64 HR 82 LABS: (from 11/18/19) Wbc 9.7 H/H 10.8/31.1 Plt 369 Na 138 K 3.7 Cl 106 CO2 24 BUN/Scr 17/0.7 BS 90 Ca 8.4 MEDICATION USE REVIEWED: > Pt not on any anti-psych medications > Pt on Keppra 1000mg q12h since 04/10/19; CrCl >100ml/min, renal function ok for current dose. No seizure episodes noted since transfer. > Pt on Phenytoin 200mg q12hr Since 07/18/19. Last level on 07/27/19 9.9, corrected 13.0 (range 10-20). No seizures noted > Ativan 1mg q6hprn seizures on board. None used since last IDT. No seizures noted > Pt on DDAVP 0.05mg GT daily since 06/22/19 for diabetes insipidus > Continues on metoclopramide 5mg q8h for abdominal distension, h/o gastroparesis, ok per renal function > Continues omeprazole 20mg daily for GI prophylaxis, ok per renal function PRN MED USAGE: (November) Tylenol for pain/temp used x0 Artificial Tears used x0 Bisacodyl Supp used x2 MOM used x0 OTHER ORDERS NOTED: > Covid test 12/06 negative > Nystatin suspension BID for oral candidiasis 12/07-12/12 > KCl 30meq GT x1 01/01 Pt was reviewed and discussed in depth with no medication concerns noted per staff. No recommendations at this time as pt remains stable on current medications. Will consider recommending repeat dilantin level next month for routine monitoring. Will follow
--- NOTE | 2020-01-03 14:54 | NUR ---
INTERDISCIPLINARY PLAN OF CARE CONFERENCE was held today. Patient's mother was not able to participate in the meeting. Dr. Wagner and the Interdisciplinary Team reviewed the current plan of care in detail. RN reported on patient's medical condition, findings from recent labs, and current treatment for fungal rashes. No major changes in condition were reported. See RN IDT conference notes. See also all other disciplines IDT notes and physician's progress notes for additional details.
--- NOTE | 2020-01-03 15:00 | NUR ---
PATIENT CONTINUES ON SHOAIB HUGGER TEMPERATURE 97.7 AT THIS TIME, NO S/S OF ANY DISTRESS NOTED.
[2020-01-03] MEDS: FOLIC ACID 1 MG TABLET GT SCH (20:31)
[2020-01-03] MEDS: THIAMINE HCL 100 MG TABLET GT SCH (20:32)
[2020-01-03] MEDS: CHOLECALCIFEROL 1,000 UNIT TABLET GT SCH (20:32)
[2020-01-03 20:58] VITALS: BP 90/51
[2020-01-04] MEDS: ALBUTEROL SULFATE 2.5 MG/3 ML NEBU NEB SCH ×6 (02:30→23:25)
[2020-01-04] MEDS: IPRATROPIUM BROMIDE 0.5 MG/2.5 ML NEBU NEB SCH ×6 (02:30→23:25)
[2020-01-04] MEDS: VITAL AF 1.2 1,000 ML LIQUID GT SCH (06:09)
[2020-01-04] MEDS: OMEPRAZOLE 20 MG CAPSULE.DR GT SCH (06:09)
[2020-01-04] MEDS: METOCLOPRAMIDE HCL 5 MG TABLET GT SCH ×3 (06:09→21:20)
[2020-01-04] MEDS: BACLOFEN 10 MG TABLET GT SCH ×3 (06:09→21:20)
[2020-01-04] MEDS: MIDODRINE HCL 10 MG TABLET GT SCH ×3 (06:09→21:20)
[2020-01-04] MEDS: BACLOFEN 20 MG TABLET GT SCH ×3 (06:09→21:20)
[2020-01-04 07:48] VITALS: BP 92/54
[2020-01-04] MEDS: PHENYTOIN 100 MG/4 ML UDC GT SCH ×2 (09:03→20:34)
[2020-01-04] MEDS: DESMOPRESSIN 0.1 MG TABLET GT SCH (09:03)
[2020-01-04] MEDS: COD LIVER OIL/ZINC OXIDE OINT 113 GM TUBE TOP SCH ×2 (09:05→20:38)
[2020-01-04] MEDS: POTASSIUM CHLORIDE 40 MEQ/30 ML LIQUID UDC GT SCH (09:05)
[2020-01-04] MEDS: FUROSEMIDE 20 MG/2 ML GT SCH (09:05)
[2020-01-04] MEDS: levETIRAcetam 500 MG/5 ML LIQUID UDC GT SCH ×2 (09:05→20:36)
[2020-01-04] MEDS: ACIDOPHILUS/BULGARICUS CHEW TAB GT SCH ×2 (09:05→20:35)
[2020-01-04] MEDS: NYSTATIN POWDER 15 GM BOTTLE TP SCH ×5 (09:06→20:38)
[2020-01-04] MEDS: COD LIVER OIL/ZINC OXIDE OINT 113 GM TUBE TP SCH ×2 (09:06→20:38)
[2020-01-04] MEDS: HYDROGEN PEROXIDE 3% 118 ML BOTTLE TP SCH ×2 (09:30→21:04)
[2020-01-04 20:00] VITALS: BP 105/57
[2020-01-04] MEDS: FOLIC ACID 1 MG TABLET GT SCH (20:36)
[2020-01-04] MEDS: THIAMINE HCL 100 MG TABLET GT SCH (20:37)
[2020-01-04] MEDS: CHOLECALCIFEROL 1,000 UNIT TABLET GT SCH (20:38)
[2020-01-05] MEDS: ALBUTEROL SULFATE 2.5 MG/3 ML NEBU NEB SCH ×6 (02:21→23:13)
[2020-01-05] MEDS: IPRATROPIUM BROMIDE 0.5 MG/2.5 ML NEBU NEB SCH ×6 (02:21→23:13)
[2020-01-05] MEDS: VITAL AF 1.2 1,000 ML LIQUID GT SCH (05:00)
[2020-01-05] MEDS: BACLOFEN 10 MG TABLET GT SCH ×3 (06:53→21:03)
[2020-01-05] MEDS: BACLOFEN 20 MG TABLET GT SCH ×3 (06:53→21:03)
[2020-01-05] MEDS: MIDODRINE HCL 10 MG TABLET GT SCH ×3 (06:53→21:04)
[2020-01-05] MEDS: OMEPRAZOLE 20 MG CAPSULE.DR GT SCH (06:53)
[2020-01-05] MEDS: METOCLOPRAMIDE HCL 5 MG TABLET GT SCH ×3 (06:53→21:04)
[2020-01-05 07:33] VITALS: BP 102/65
[2020-01-05] MEDS: DESMOPRESSIN 0.1 MG TABLET GT SCH (09:00)
[2020-01-05] MEDS: FUROSEMIDE 20 MG/2 ML GT SCH (09:00)
[2020-01-05] MEDS: COD LIVER OIL/ZINC OXIDE OINT 113 GM TUBE TP SCH ×2 (09:00→20:49)
[2020-01-05] MEDS: COD LIVER OIL/ZINC OXIDE OINT 113 GM TUBE TOP SCH ×2 (09:00→20:48)
[2020-01-05] MEDS: NYSTATIN POWDER 15 GM BOTTLE TP SCH ×4 (09:00→20:49)
[2020-01-05] MEDS: PHENYTOIN 100 MG/4 ML UDC GT SCH ×2 (09:00→20:46)
[2020-01-05] MEDS: HYDROGEN PEROXIDE 3% 118 ML BOTTLE TP SCH ×2 (09:00→21:02)
[2020-01-05] MEDS: levETIRAcetam 500 MG/5 ML LIQUID UDC GT SCH ×2 (09:00→20:47)
[2020-01-05] MEDS: POTASSIUM CHLORIDE 40 MEQ/30 ML LIQUID UDC GT SCH (09:00)
[2020-01-05] MEDS: ACIDOPHILUS/BULGARICUS CHEW TAB GT SCH ×2 (09:00→20:46)
[2020-01-05 20:00] VITALS: BP 103/73
[2020-01-05] MEDS: FOLIC ACID 1 MG TABLET GT SCH (20:47)
[2020-01-05] MEDS: THIAMINE HCL 100 MG TABLET GT SCH (20:48)
[2020-01-05] MEDS: CHOLECALCIFEROL 1,000 UNIT TABLET GT SCH (20:48)
[2020-01-06] MEDS: IPRATROPIUM BROMIDE 0.5 MG/2.5 ML NEBU NEB SCH ×6 (03:05→23:10)
[2020-01-06] MEDS: ALBUTEROL SULFATE 2.5 MG/3 ML NEBU NEB SCH ×6 (03:05→23:10)
[2020-01-06] MEDS: VITAL AF 1.2 1,000 ML LIQUID GT SCH (05:00)
[2020-01-06] MEDS: BACLOFEN 10 MG TABLET GT SCH ×3 (05:52→21:56)
[2020-01-06] MEDS: BACLOFEN 20 MG TABLET GT SCH ×3 (05:52→21:56)
[2020-01-06] MEDS: OMEPRAZOLE 20 MG CAPSULE.DR GT SCH (05:53)
[2020-01-06] MEDS: MIDODRINE HCL 10 MG TABLET GT SCH ×3 (05:53→21:57)
[2020-01-06] MEDS: METOCLOPRAMIDE HCL 5 MG TABLET GT SCH ×3 (05:53→21:57)
[2020-01-06 07:33] VITALS: BP 118/70
[2020-01-06] MEDS: HYDROGEN PEROXIDE 3% 118 ML BOTTLE TP SCH ×2 (08:13→21:05)
[2020-01-06] MEDS: PHENYTOIN 100 MG/4 ML UDC GT SCH ×2 (09:32→21:55)
[2020-01-06] MEDS: DESMOPRESSIN 0.1 MG TABLET GT SCH (09:32)
[2020-01-06] MEDS: levETIRAcetam 500 MG/5 ML LIQUID UDC GT SCH ×2 (09:33→21:55)
[2020-01-06] MEDS: ACIDOPHILUS/BULGARICUS CHEW TAB GT SCH ×2 (09:33→21:55)
[2020-01-06] MEDS: POTASSIUM CHLORIDE 40 MEQ/30 ML LIQUID UDC GT SCH (09:34)
[2020-01-06] MEDS: FUROSEMIDE 20 MG/2 ML GT SCH (09:34)
[2020-01-06] MEDS: COD LIVER OIL/ZINC OXIDE OINT 113 GM TUBE TOP SCH ×2 (09:35→21:55)
[2020-01-06] MEDS: COD LIVER OIL/ZINC OXIDE OINT 113 GM TUBE TP SCH ×2 (09:35→21:55)
[2020-01-06] MEDS: NYSTATIN POWDER 15 GM BOTTLE TP SCH ×4 (09:35→21:56)
[2020-01-06] MEDS: FOLIC ACID 1 MG TABLET GT SCH (21:55)
[2020-01-06] MEDS: CHOLECALCIFEROL 1,000 UNIT TABLET GT SCH (21:55)
[2020-01-06] MEDS: THIAMINE HCL 100 MG TABLET GT SCH (21:55)
[2020-01-06 22:36] VITALS: BP 100/52
[2020-01-07] MEDS: IPRATROPIUM BROMIDE 0.5 MG/2.5 ML NEBU NEB SCH ×6 (03:10→22:46)
[2020-01-07] MEDS: ALBUTEROL SULFATE 2.5 MG/3 ML NEBU NEB SCH ×6 (03:10→22:46)
[2020-01-07] MEDS: BACLOFEN 10 MG TABLET GT SCH ×3 (06:26→21:18)
[2020-01-07] MEDS: BACLOFEN 20 MG TABLET GT SCH ×3 (06:26→21:18)
[2020-01-07] MEDS: MIDODRINE HCL 10 MG TABLET GT SCH ×3 (06:27→21:18)
[2020-01-07] MEDS: METOCLOPRAMIDE HCL 5 MG TABLET GT SCH ×3 (06:28→21:19)
[2020-01-07] MEDS: OMEPRAZOLE 20 MG CAPSULE.DR GT SCH (06:28)
[2020-01-07 07:32] VITALS: BP 131/76
[2020-01-07] MEDS: DESMOPRESSIN 0.1 MG TABLET GT SCH (08:10)
[2020-01-07] MEDS: PHENYTOIN 100 MG/4 ML UDC GT SCH ×2 (08:11→20:21)
[2020-01-07] MEDS: FUROSEMIDE 20 MG/2 ML GT SCH (08:11)
[2020-01-07] MEDS: NYSTATIN POWDER 15 GM BOTTLE TP SCH ×4 (08:11→20:23)
[2020-01-07] MEDS: POTASSIUM CHLORIDE 40 MEQ/30 ML LIQUID UDC GT SCH (08:11)
[2020-01-07] MEDS: COD LIVER OIL/ZINC OXIDE OINT 113 GM TUBE TP SCH ×2 (08:11→20:23)
[2020-01-07] MEDS: COD LIVER OIL/ZINC OXIDE OINT 113 GM TUBE TOP SCH ×2 (08:11→20:23)
[2020-01-07] MEDS: levETIRAcetam 500 MG/5 ML LIQUID UDC GT SCH ×2 (08:11→20:21)
[2020-01-07] MEDS: ACIDOPHILUS/BULGARICUS CHEW TAB GT SCH ×2 (08:11→20:21)
[2020-01-07] MEDS: HYDROGEN PEROXIDE 3% 118 ML BOTTLE TP SCH ×2 (09:00→21:41)
--- NOTE | 2020-01-07 19:09 | NUR ---
Received pt on HT-50 ventilator with the following settings of SIMV-12, Vt-500, PEEP+5, PS-10, FIO2-2LPM bleed in, trached with Shiley#6 DCT trach, which is in the place and secure. No /s of respiratory distress noted. Airway care done, pt responded to physical stimuli. In-line HHN tx with 2.5mg Albuterol+0.5mg Atrovent given, pt tolerated well. HME, Sx Garza and HHN adaptor changed. Resus. bag and back up trach at bedside. Vent and alarms checked and reset.
[2020-01-07] MEDS: FOLIC ACID 1 MG TABLET GT SCH (20:21)
[2020-01-07] MEDS: CHOLECALCIFEROL 1,000 UNIT TABLET GT SCH (20:22)
[2020-01-07] MEDS: THIAMINE HCL 100 MG TABLET GT SCH (20:22)
[2020-01-07 21:53] VITALS: BP 121/63
[2020-01-08] MEDS: IPRATROPIUM BROMIDE 0.5 MG/2.5 ML NEBU NEB SCH ×6 (02:50→22:40)
[2020-01-08] MEDS: ALBUTEROL SULFATE 2.5 MG/3 ML NEBU NEB SCH ×6 (02:50→22:40)
[2020-01-08] MEDS: BACLOFEN 10 MG TABLET GT SCH ×3 (05:08→21:09)
[2020-01-08] MEDS: BACLOFEN 20 MG TABLET GT SCH ×3 (05:08→21:09)
[2020-01-08] MEDS: MIDODRINE HCL 10 MG TABLET GT SCH ×3 (05:12→21:09)
[2020-01-08] MEDS: METOCLOPRAMIDE HCL 5 MG TABLET GT SCH ×3 (05:12→21:09)
[2020-01-08] MEDS: OMEPRAZOLE 20 MG CAPSULE.DR GT SCH (05:12)
[2020-01-08 07:58] VITALS: BP 100/70
[2020-01-08] MEDS: PHENYTOIN 100 MG/4 ML UDC GT SCH ×2 (08:35→21:04)
[2020-01-08] MEDS: DESMOPRESSIN 0.1 MG TABLET GT SCH (08:35)
[2020-01-08] MEDS: ACIDOPHILUS/BULGARICUS CHEW TAB GT SCH ×2 (08:36→21:04)
[2020-01-08] MEDS: levETIRAcetam 500 MG/5 ML LIQUID UDC GT SCH ×2 (08:37→21:06)
[2020-01-08] MEDS: FUROSEMIDE 20 MG/2 ML GT SCH (08:39)
[2020-01-08] MEDS: POTASSIUM CHLORIDE 40 MEQ/30 ML LIQUID UDC GT SCH (08:40)
[2020-01-08] MEDS: COD LIVER OIL/ZINC OXIDE OINT 113 GM TUBE TOP SCH ×2 (08:41→21:08)
[2020-01-08] MEDS: NYSTATIN POWDER 15 GM BOTTLE TP SCH ×4 (08:41→21:09)
[2020-01-08] MEDS: COD LIVER OIL/ZINC OXIDE OINT 113 GM TUBE TP SCH ×2 (08:41→21:08)
[2020-01-08] MEDS: HYDROGEN PEROXIDE 3% 118 ML BOTTLE TP SCH ×2 (09:00→21:25)
--- NOTE | 2020-01-08 19:16 | NUR ---
Received pt on HT-50 ventilator with the following settings of SIMV-12, Vt-500, PEEP+5, PS-10, FIO2-2LPM bleed in, trached with Susyley#6 DCT trach, which is in the place and secure. No s/s of respiratory distress noted. Airway care done, pt responded to physical stimuli. In-line HHN tx with 2.5mg Albuterol+0.5mg Atrovent given, pt tolerated well. HME changed. Resus. bag and back up trach at bedside. Vent and alarms checked and reset.
[2020-01-08] MEDS: FOLIC ACID 1 MG TABLET GT SCH (21:04)
[2020-01-08] MEDS: THIAMINE HCL 100 MG TABLET GT SCH (21:08)
[2020-01-08] MEDS: CHOLECALCIFEROL 1,000 UNIT TABLET GT SCH (21:08)
[2020-01-08 22:30] VITALS: BP 131/73
[2020-01-09] MEDS: ALBUTEROL SULFATE 2.5 MG/3 ML NEBU NEB SCH ×6 (02:50→22:54)
[2020-01-09] MEDS: IPRATROPIUM BROMIDE 0.5 MG/2.5 ML NEBU NEB SCH ×6 (02:50→22:54)
[2020-01-09] MEDS: BACLOFEN 20 MG TABLET GT SCH ×3 (05:14→21:00)
[2020-01-09] MEDS: BACLOFEN 10 MG TABLET GT SCH ×3 (05:14→21:00)
[2020-01-09] MEDS: OMEPRAZOLE 20 MG CAPSULE.DR GT SCH (05:15)
[2020-01-09] MEDS: METOCLOPRAMIDE HCL 5 MG TABLET GT SCH ×3 (05:15→21:01)
[2020-01-09] MEDS: MIDODRINE HCL 10 MG TABLET GT SCH ×3 (05:15→21:01)
[2020-01-09] MEDS: VITAL AF 1.2 1,000 ML LIQUID GT SCH (06:54)
[2020-01-09 07:44] VITALS: BP 114/77
[2020-01-09] MEDS: HYDROGEN PEROXIDE 3% 118 ML BOTTLE TP SCH ×2 (08:29→21:37)
[2020-01-09] MEDS: DESMOPRESSIN 0.1 MG TABLET GT SCH (08:47)
[2020-01-09] MEDS: PHENYTOIN 100 MG/4 ML UDC GT SCH ×2 (08:47→20:59)
[2020-01-09] MEDS: ACIDOPHILUS/BULGARICUS CHEW TAB GT SCH ×2 (08:50→20:59)
[2020-01-09] MEDS: FUROSEMIDE 20 MG/2 ML GT SCH (08:51)
[2020-01-09] MEDS: POTASSIUM CHLORIDE 40 MEQ/30 ML LIQUID UDC GT SCH (08:51)
[2020-01-09] MEDS: levETIRAcetam 500 MG/5 ML LIQUID UDC GT SCH ×2 (08:51→20:59)
[2020-01-09] MEDS: COD LIVER OIL/ZINC OXIDE OINT 113 GM TUBE TP SCH ×2 (08:52→21:00)
[2020-01-09] MEDS: NYSTATIN POWDER 15 GM BOTTLE TP SCH ×4 (08:52→21:00)
[2020-01-09] MEDS: COD LIVER OIL/ZINC OXIDE OINT 113 GM TUBE TOP SCH ×2 (08:52→21:00)
[2020-01-09 20:17] VITALS: BP 105/63
[2020-01-09] MEDS: FOLIC ACID 1 MG TABLET GT SCH (20:59)
[2020-01-09] MEDS: THIAMINE HCL 100 MG TABLET GT SCH (21:00)
[2020-01-09] MEDS: CHOLECALCIFEROL 1,000 UNIT TABLET GT SCH (21:00)
[2020-01-10] MEDS: ALBUTEROL SULFATE 2.5 MG/3 ML NEBU NEB SCH ×6 (02:50→23:16)
[2020-01-10] MEDS: IPRATROPIUM BROMIDE 0.5 MG/2.5 ML NEBU NEB SCH ×6 (02:50→23:16)
[2020-01-10] MEDS: BACLOFEN 20 MG TABLET GT SCH ×3 (05:02→21:14)
[2020-01-10] MEDS: BACLOFEN 10 MG TABLET GT SCH ×3 (05:02→21:14)
[2020-01-10] MEDS: METOCLOPRAMIDE HCL 5 MG TABLET GT SCH ×3 (05:03→21:14)
[2020-01-10] MEDS: MIDODRINE HCL 10 MG TABLET GT SCH ×3 (05:03→21:14)
[2020-01-10] MEDS: OMEPRAZOLE 20 MG CAPSULE.DR GT SCH (05:03)
[2020-01-10 07:25] VITALS: BP 107/69
[2020-01-10] MEDS: DESMOPRESSIN 0.1 MG TABLET GT SCH (08:05)
[2020-01-10] MEDS: PHENYTOIN 100 MG/4 ML UDC GT SCH ×2 (08:05→21:11)
[2020-01-10] MEDS: ACIDOPHILUS/BULGARICUS CHEW TAB GT SCH ×2 (08:06→21:11)
[2020-01-10] MEDS: POTASSIUM CHLORIDE 40 MEQ/30 ML LIQUID UDC GT SCH (08:07)
[2020-01-10] MEDS: levETIRAcetam 500 MG/5 ML LIQUID UDC GT SCH ×2 (08:07→21:11)
[2020-01-10] MEDS: FUROSEMIDE 20 MG/2 ML GT SCH (08:07)
[2020-01-10] MEDS: COD LIVER OIL/ZINC OXIDE OINT 113 GM TUBE TP SCH ×2 (08:08→21:13)
[2020-01-10] MEDS: COD LIVER OIL/ZINC OXIDE OINT 113 GM TUBE TOP SCH ×2 (08:08→21:13)
[2020-01-10] MEDS: NYSTATIN POWDER 15 GM BOTTLE TP SCH ×4 (08:08→21:14)
[2020-01-10] MEDS: HYDROGEN PEROXIDE 3% 118 ML BOTTLE TP SCH ×2 (09:55→21:24)
--- NOTE | 2020-01-10 11:00 | NUR ---
EMMY Agustin WAS CALLED RE: PROTRUDING TISSUE NOTED TODAY ON PERINEAL AREA CLOSED TO F/C INSERTION.PICTURE TAKEN .
--- NOTE | 2020-01-10 11:18 | NUR ---
EMMY Tyler CALLED BACK AND WITH NEW ORDER FOR UROLOGY CONSULT AND DR. CRISTI CAMPOS WAS NOTIFIED AND WILL SEE PT.
--- NOTE | 2020-01-10 11:45 | NUR ---
Video chat done with patient's mother at this time.
--- NOTE | 2020-01-10 12:00 | NUR ---
SEEN BY EMMY Agustin AND WITH NNO.
--- NOTE | 2020-01-10 19:45 | NUR ---
PT RECEIVED ON CONTINUOUS VENT, TRACH CARE DONE. TRACH IN PLACED AND SECURED WITH TRACH TIE. BACK-UP TRACH AND AMBU BAG AT BEDSIDE . IN LINE TX GIVEN WITH UD ALBUTEROL+ UD ATROVENT ORDERED. SUCTION PRN. VENT CIRCUIT CHANGED. VENT CHECKED, ALARMS AUDIBLE, CHECKED AND RESET. NO DISTRESS NOTED AT THIS TIME. WILL CONTINUE TO MONITOR.
[2020-01-10 20:00] VITALS: BP 107/68
--- NOTE | 2020-01-10 21:00 | NUR ---
Dr. Mina (Urologist) was hare, seen and examined patient, removed urethral mass (Dark red), no bleeding noted, sent specimen for pathology as doctor ordered.
[2020-01-10] MEDS: FOLIC ACID 1 MG TABLET GT SCH (21:11)
[2020-01-10] MEDS: THIAMINE HCL 100 MG TABLET GT SCH (21:13)
[2020-01-10] MEDS: CHOLECALCIFEROL 1,000 UNIT TABLET GT SCH (21:13)
[2020-01-11] MEDS: IPRATROPIUM BROMIDE 0.5 MG/2.5 ML NEBU NEB SCH ×6 (03:15→23:09)
[2020-01-11] MEDS: ALBUTEROL SULFATE 2.5 MG/3 ML NEBU NEB SCH ×6 (03:15→23:09)
[2020-01-11] MEDS: BACLOFEN 20 MG TABLET GT SCH ×3 (05:01→22:49)
[2020-01-11] MEDS: BACLOFEN 10 MG TABLET GT SCH ×3 (05:01→22:49)
[2020-01-11] MEDS: MIDODRINE HCL 10 MG TABLET GT SCH ×3 (05:02→22:49)
[2020-01-11] MEDS: OMEPRAZOLE 20 MG CAPSULE.DR GT SCH (05:02)
[2020-01-11] MEDS: METOCLOPRAMIDE HCL 5 MG TABLET GT SCH ×3 (05:02→22:50)
--- NOTE | 2020-01-11 06:30 | NUR ---
No bleeding noted from the vagina/ urethra, good luke care rendered, kept clean and comfortable.
[2020-01-11 07:49] VITALS: BP 95/60
[2020-01-11] MEDS: PHENYTOIN 100 MG/4 ML UDC GT SCH ×2 (08:16→20:31)
[2020-01-11] MEDS: DESMOPRESSIN 0.1 MG TABLET GT SCH (08:16)
[2020-01-11] MEDS: FUROSEMIDE 20 MG/2 ML GT SCH (08:17)
[2020-01-11] MEDS: levETIRAcetam 500 MG/5 ML LIQUID UDC GT SCH ×2 (08:17→20:32)
[2020-01-11] MEDS: ACIDOPHILUS/BULGARICUS CHEW TAB GT SCH ×2 (08:17→20:31)
[2020-01-11] MEDS: POTASSIUM CHLORIDE 40 MEQ/30 ML LIQUID UDC GT SCH (08:18)
[2020-01-11] MEDS: COD LIVER OIL/ZINC OXIDE OINT 113 GM TUBE TOP SCH ×2 (08:19→20:33)
[2020-01-11] MEDS: COD LIVER OIL/ZINC OXIDE OINT 113 GM TUBE TP SCH ×2 (08:19→20:33)
[2020-01-11] MEDS: NYSTATIN POWDER 15 GM BOTTLE TP SCH ×4 (08:19→20:33)
[2020-01-11] MEDS: HYDROGEN PEROXIDE 3% 118 ML BOTTLE TP SCH ×2 (09:00→21:20)
[2020-01-11 20:00] VITALS: BP 102/66
[2020-01-11] MEDS: CHOLECALCIFEROL 1,000 UNIT TABLET GT SCH (20:32)
[2020-01-11] MEDS: FOLIC ACID 1 MG TABLET GT SCH (20:32)
[2020-01-11] MEDS: THIAMINE HCL 100 MG TABLET GT SCH (20:32)
[2020-01-12] MEDS: ALBUTEROL SULFATE 2.5 MG/3 ML NEBU NEB SCH ×6 (02:51→23:21)
[2020-01-12] MEDS: IPRATROPIUM BROMIDE 0.5 MG/2.5 ML NEBU NEB SCH ×6 (02:51→23:21)
[2020-01-12 06:00] VITALS: BP 101/41
[2020-01-12] MEDS: BACLOFEN 20 MG TABLET GT SCH ×3 (06:28→21:01)
[2020-01-12] MEDS: BACLOFEN 10 MG TABLET GT SCH ×3 (06:28→21:01)
[2020-01-12] MEDS: MIDODRINE HCL 10 MG TABLET GT SCH ×3 (06:29→21:01)
[2020-01-12] MEDS: OMEPRAZOLE 20 MG CAPSULE.DR GT SCH (06:29)
[2020-01-12] MEDS: METOCLOPRAMIDE HCL 5 MG TABLET GT SCH ×3 (06:29→21:01)
[2020-01-12 07:45] VITALS: BP 130/74
[2020-01-12] MEDS: DESMOPRESSIN 0.1 MG TABLET GT SCH (08:25)
[2020-01-12] MEDS: PHENYTOIN 100 MG/4 ML UDC GT SCH ×2 (08:25→21:00)
[2020-01-12] MEDS: ACIDOPHILUS/BULGARICUS CHEW TAB GT SCH ×2 (08:26→21:00)
[2020-01-12] MEDS: FUROSEMIDE 20 MG/2 ML GT SCH (08:27)
[2020-01-12] MEDS: POTASSIUM CHLORIDE 40 MEQ/30 ML LIQUID UDC GT SCH (08:27)
[2020-01-12] MEDS: levETIRAcetam 500 MG/5 ML LIQUID UDC GT SCH ×2 (08:27→21:00)
[2020-01-12] MEDS: NYSTATIN POWDER 15 GM BOTTLE TP SCH ×4 (08:28→21:01)
[2020-01-12] MEDS: COD LIVER OIL/ZINC OXIDE OINT 113 GM TUBE TP SCH ×2 (08:28→21:00)
[2020-01-12] MEDS: COD LIVER OIL/ZINC OXIDE OINT 113 GM TUBE TOP SCH ×2 (08:28→21:00)
[2020-01-12] MEDS: HYDROGEN PEROXIDE 3% 118 ML BOTTLE TP SCH ×2 (09:45→21:59)
--- NOTE | 2020-01-12 11:30 | NUR ---
PROVIDED ZOOM COMMUNICATIONS FOR PATIENT WITH MOTHER. PATIENT STABLE, NO SIGNS OF PAIN OR DISTRESS NOTED. WILL CONTINUE TO MONITOR.
[2020-01-12 14:08] VITALS: BP 98/57
[2020-01-12 20:00] VITALS: BP 96/61
[2020-01-12] MEDS: THIAMINE HCL 100 MG TABLET GT SCH (21:00)
[2020-01-12] MEDS: FOLIC ACID 1 MG TABLET GT SCH (21:00)
[2020-01-12] MEDS: CHOLECALCIFEROL 1,000 UNIT TABLET GT SCH (21:00)
[2020-01-13] MEDS: IPRATROPIUM BROMIDE 0.5 MG/2.5 ML NEBU NEB SCH ×6 (02:52→23:12)
[2020-01-13] MEDS: ALBUTEROL SULFATE 2.5 MG/3 ML NEBU NEB SCH ×6 (02:52→23:12)
[2020-01-13] MEDS: METOCLOPRAMIDE HCL 5 MG TABLET GT SCH ×3 (05:03→22:05)
[2020-01-13] MEDS: BACLOFEN 10 MG TABLET GT SCH ×3 (05:03→22:03)
[2020-01-13] MEDS: MIDODRINE HCL 10 MG TABLET GT SCH ×3 (05:03→22:05)
[2020-01-13] MEDS: BACLOFEN 20 MG TABLET GT SCH ×3 (05:03→22:03)
[2020-01-13] MEDS: OMEPRAZOLE 20 MG CAPSULE.DR GT SCH (05:03)
[2020-01-13] MEDS: VITAL AF 1.2 1,000 ML LIQUID GT SCH (07:10)
[2020-01-13 07:43] VITALS: BP 109/64
[2020-01-13] MEDS: PHENYTOIN 100 MG/4 ML UDC GT SCH ×2 (08:47→20:52)
[2020-01-13] MEDS: ACIDOPHILUS/BULGARICUS CHEW TAB GT SCH ×2 (08:47→20:52)
[2020-01-13] MEDS: DESMOPRESSIN 0.1 MG TABLET GT SCH (08:47)
[2020-01-13] MEDS: levETIRAcetam 500 MG/5 ML LIQUID UDC GT SCH ×2 (08:47→20:52)
[2020-01-13] MEDS: FUROSEMIDE 20 MG/2 ML GT SCH (08:48)
[2020-01-13] MEDS: POTASSIUM CHLORIDE 40 MEQ/30 ML LIQUID UDC GT SCH (08:48)
[2020-01-13] MEDS: COD LIVER OIL/ZINC OXIDE OINT 113 GM TUBE TOP SCH ×2 (08:49→20:53)
[2020-01-13] MEDS: COD LIVER OIL/ZINC OXIDE OINT 113 GM TUBE TP SCH ×2 (08:49→20:53)
[2020-01-13] MEDS: NYSTATIN POWDER 15 GM BOTTLE TP SCH ×4 (08:49→20:55)
[2020-01-13] MEDS: HYDROGEN PEROXIDE 3% 118 ML BOTTLE TP SCH ×2 (09:56→21:27)
[2020-01-13] MEDS: BISACODYL 10 MG SUPP.RECT RC PRN (17:13)
[2020-01-13 20:31] VITALS: BP 112/65
[2020-01-13] MEDS: FOLIC ACID 1 MG TABLET GT SCH (20:52)
[2020-01-13] MEDS: CHOLECALCIFEROL 1,000 UNIT TABLET GT SCH (20:52)
[2020-01-13] MEDS: THIAMINE HCL 100 MG TABLET GT SCH (20:52)
[2020-01-14] MEDS: IPRATROPIUM BROMIDE 0.5 MG/2.5 ML NEBU NEB SCH ×6 (03:05→22:41)
[2020-01-14] MEDS: ALBUTEROL SULFATE 2.5 MG/3 ML NEBU NEB SCH ×6 (03:05→22:41)
[2020-01-14] MEDS: VITAL AF 1.2 1,000 ML LIQUID GT SCH (04:01)
[2020-01-14] MEDS: OMEPRAZOLE 20 MG CAPSULE.DR GT SCH (05:53)
[2020-01-14] MEDS: METOCLOPRAMIDE HCL 5 MG TABLET GT SCH ×3 (05:53→21:03)
[2020-01-14] MEDS: BACLOFEN 10 MG TABLET GT SCH ×3 (05:53→21:02)
[2020-01-14] MEDS: BACLOFEN 20 MG TABLET GT SCH ×3 (05:53→21:02)
[2020-01-14] MEDS: MIDODRINE HCL 10 MG TABLET GT SCH ×3 (05:53→21:03)
[2020-01-14 07:29] VITALS: BP 117/66
[2020-01-14] MEDS: HYDROGEN PEROXIDE 3% 118 ML BOTTLE TP SCH ×2 (09:00→21:27)
[2020-01-14] MEDS: DESMOPRESSIN 0.1 MG TABLET GT SCH (09:01)
[2020-01-14] MEDS: PHENYTOIN 100 MG/4 ML UDC GT SCH ×2 (09:01→20:58)
[2020-01-14] MEDS: ACIDOPHILUS/BULGARICUS CHEW TAB GT SCH ×2 (09:02→20:58)
[2020-01-14] MEDS: levETIRAcetam 500 MG/5 ML LIQUID UDC GT SCH ×2 (09:03→20:59)
[2020-01-14] MEDS: FUROSEMIDE 20 MG/2 ML GT SCH (09:03)
[2020-01-14] MEDS: POTASSIUM CHLORIDE 40 MEQ/30 ML LIQUID UDC GT SCH (09:03)
[2020-01-14] MEDS: COD LIVER OIL/ZINC OXIDE OINT 113 GM TUBE TP SCH ×2 (09:04→20:59)
[2020-01-14] MEDS: COD LIVER OIL/ZINC OXIDE OINT 113 GM TUBE TOP SCH ×2 (09:04→20:59)
[2020-01-14] MEDS: NYSTATIN POWDER 15 GM BOTTLE TP SCH ×4 (09:04→20:59)
--- NOTE | 2020-01-14 11:00 | NUR ---
New orders from Dr Meyer carried out.
[2020-01-14 20:19] VITALS: BP 105/58
[2020-01-14] MEDS: THIAMINE HCL 100 MG TABLET GT SCH (20:59)
[2020-01-14] MEDS: FOLIC ACID 1 MG TABLET GT SCH (20:59)
[2020-01-14] MEDS: CHOLECALCIFEROL 1,000 UNIT TABLET GT SCH (20:59)
[2020-01-15] MEDS: IPRATROPIUM BROMIDE 0.5 MG/2.5 ML NEBU NEB SCH ×6 (02:40→22:40)
[2020-01-15] MEDS: ALBUTEROL SULFATE 2.5 MG/3 ML NEBU NEB SCH ×6 (02:40→22:40)
[2020-01-15] MEDS: VITAL AF 1.2 1,000 ML LIQUID GT SCH (03:55)
[2020-01-15] MEDS: METOCLOPRAMIDE HCL 5 MG TABLET GT SCH ×3 (05:51→22:00)
[2020-01-15] MEDS: BACLOFEN 10 MG TABLET GT SCH ×3 (05:51→22:00)
[2020-01-15] MEDS: BACLOFEN 20 MG TABLET GT SCH ×3 (05:51→22:00)
[2020-01-15] MEDS: MIDODRINE HCL 10 MG TABLET GT SCH ×3 (05:51→22:00)
[2020-01-15] MEDS: OMEPRAZOLE 20 MG CAPSULE.DR GT SCH (05:51)
[2020-01-15 07:41] VITALS: BP 98/56
[2020-01-15] MEDS: DESMOPRESSIN 0.1 MG TABLET GT SCH (08:14)
[2020-01-15] MEDS: ACIDOPHILUS/BULGARICUS CHEW TAB GT SCH ×2 (08:16→20:47)
[2020-01-15] MEDS: PHENYTOIN 100 MG/4 ML UDC GT SCH ×2 (08:16→20:47)
[2020-01-15] MEDS: levETIRAcetam 500 MG/5 ML LIQUID UDC GT SCH ×2 (08:18→20:47)
[2020-01-15] MEDS: FUROSEMIDE 20 MG/2 ML GT SCH (08:19)
[2020-01-15] MEDS: COD LIVER OIL/ZINC OXIDE OINT 113 GM TUBE TP SCH ×2 (08:20→20:47)
[2020-01-15] MEDS: COD LIVER OIL/ZINC OXIDE OINT 113 GM TUBE TOP SCH ×2 (08:20→20:47)
[2020-01-15] MEDS: NYSTATIN POWDER 15 GM BOTTLE TP SCH ×4 (08:20→20:48)
[2020-01-15] MEDS: POTASSIUM CHLORIDE 40 MEQ/30 ML LIQUID UDC GT SCH (08:20)
[2020-01-15] MEDS: HYDROGEN PEROXIDE 3% 118 ML BOTTLE TP SCH ×2 (08:58→19:14)
[2020-01-15 11:56] LABS: BASOPHILS # (AUTO) 0.1 K/uL (0.0-8.0); EOSINOPHILS # (AUTO) 0.5 K/uL (0.0-0.7); EOSINOPHILS % (AUTO) 6.5 % (0.0-7.0); HEMATOCRIT 31.4 % (31.2-41.9); HEMOGLOBIN 10.8 g/dL (10.9-14.3); LYMPHOCYTES # (AUTO) 1.8 K/uL (20.0-40.0); LYMPHOCYTES % (AUTO) 23.2 % (20.5-51.5); MEAN CORPUSCULAR HEMOGLOBIN 31.9 uug (24.7-32.8); MEAN CORPUSCULAR HGB CONC 35 g/dL (32.3-35.6); MEAN CORPUSCULAR VOLUME 92.2 fL (75.5-95.3); MONOCYTES # (AUTO) 0.5 K/uL (2.0-10.0); MONOCYTES % (AUTO) 6.3 % (0.0-11.0); PLATELET COUNT (AUTO) 332 K/uL (179-408); WHITE BLOOD COUNT (AUTO) 7.9 K/uL (3.8-11.8)
[2020-01-15 12:00] LABS: CARBON DIOXIDE 22 mmol/L (21-32); CHLORIDE 110 mmol/L (98-107); CREATININE 0.5 mg/dL (0.6-1.3); GLUCOSE 84 mg/dL (74-106); MAGNESIUM 1.9 mg/dL (1.8-2.4); PHOSPHOROUS 3.6 mg/dL (2.5-4.9); UREA NITROGEN, BLOOD 15 mg/dL (7-18)
[2020-01-15] MEDS: THIAMINE HCL 100 MG TABLET GT SCH (20:47)
[2020-01-15] MEDS: FOLIC ACID 1 MG TABLET GT SCH (20:47)
[2020-01-15] MEDS: CHOLECALCIFEROL 1,000 UNIT TABLET GT SCH (20:47)
[2020-01-15 22:25] VITALS: BP 118/72
[2020-01-16] MEDS: IPRATROPIUM BROMIDE 0.5 MG/2.5 ML NEBU NEB SCH ×6 (02:36→22:40)
[2020-01-16] MEDS: ALBUTEROL SULFATE 2.5 MG/3 ML NEBU NEB SCH ×6 (02:36→22:40)
[2020-01-16] MEDS: BACLOFEN 20 MG TABLET GT SCH ×3 (06:47→22:22)
[2020-01-16] MEDS: OMEPRAZOLE 20 MG CAPSULE.DR GT SCH (06:47)
[2020-01-16] MEDS: BACLOFEN 10 MG TABLET GT SCH ×3 (06:47→22:22)
[2020-01-16] MEDS: MIDODRINE HCL 10 MG TABLET GT SCH ×3 (06:47→22:00)
[2020-01-16] MEDS: METOCLOPRAMIDE HCL 5 MG TABLET GT SCH ×3 (06:48→22:23)
[2020-01-16] MEDS: HYDROGEN PEROXIDE 3% 118 ML BOTTLE TP SCH ×2 (07:32→21:24)
[2020-01-16 08:15] VITALS: BP 102/57
[2020-01-16] MEDS: POTASSIUM CHLORIDE 40 MEQ/30 ML LIQUID UDC GT SCH (08:22)
[2020-01-16] MEDS: FUROSEMIDE 20 MG/2 ML GT SCH (08:22)
[2020-01-16] MEDS: ACIDOPHILUS/BULGARICUS CHEW TAB GT SCH ×2 (08:22→20:50)
[2020-01-16] MEDS: levETIRAcetam 500 MG/5 ML LIQUID UDC GT SCH ×2 (08:22→20:50)
[2020-01-16] MEDS: DESMOPRESSIN 0.1 MG TABLET GT SCH (08:22)
[2020-01-16] MEDS: PHENYTOIN 100 MG/4 ML UDC GT SCH ×2 (08:22→20:50)
[2020-01-16] MEDS: NYSTATIN POWDER 15 GM BOTTLE TP SCH ×4 (08:23→20:51)
[2020-01-16] MEDS: COD LIVER OIL/ZINC OXIDE OINT 113 GM TUBE TOP SCH ×2 (08:23→20:50)
[2020-01-16] MEDS: VITAL AF 1.2 1,000 ML LIQUID GT SCH (11:32)
[2020-01-16 20:45] VITALS: BP 117/76
[2020-01-16] MEDS: THIAMINE HCL 100 MG TABLET GT SCH (20:50)
[2020-01-16] MEDS: FOLIC ACID 1 MG TABLET GT SCH (20:50)
[2020-01-16] MEDS: CHOLECALCIFEROL 1,000 UNIT TABLET GT SCH (20:50)
[2020-01-17] MEDS: ALBUTEROL SULFATE 2.5 MG/3 ML NEBU NEB SCH ×6 (02:40→22:41)
[2020-01-17] MEDS: IPRATROPIUM BROMIDE 0.5 MG/2.5 ML NEBU NEB SCH ×6 (02:40→22:41)
[2020-01-17] MEDS: BACLOFEN 10 MG TABLET GT SCH ×3 (06:05→21:30)
[2020-01-17] MEDS: BACLOFEN 20 MG TABLET GT SCH ×3 (06:05→21:30)
[2020-01-17] MEDS: OMEPRAZOLE 20 MG CAPSULE.DR GT SCH (06:07)
[2020-01-17] MEDS: MIDODRINE HCL 10 MG TABLET GT SCH ×3 (06:07→21:30)
[2020-01-17] MEDS: METOCLOPRAMIDE HCL 5 MG TABLET GT SCH ×3 (06:07→21:30)
[2020-01-17 07:29] VITALS: BP 111/66
[2020-01-17] MEDS: PHENYTOIN 100 MG/4 ML UDC GT SCH ×2 (08:10→21:25)
[2020-01-17] MEDS: POTASSIUM CHLORIDE 40 MEQ/30 ML LIQUID UDC GT SCH (08:10)
[2020-01-17] MEDS: DESMOPRESSIN 0.1 MG TABLET GT SCH (08:10)
[2020-01-17] MEDS: FUROSEMIDE 20 MG/2 ML GT SCH (08:10)
[2020-01-17] MEDS: COD LIVER OIL/ZINC OXIDE OINT 113 GM TUBE TOP SCH ×2 (08:10→21:29)
[2020-01-17] MEDS: ACIDOPHILUS/BULGARICUS CHEW TAB GT SCH ×2 (08:10→21:26)
[2020-01-17] MEDS: NYSTATIN POWDER 15 GM BOTTLE TP SCH ×4 (08:10→21:30)
[2020-01-17] MEDS: levETIRAcetam 500 MG/5 ML LIQUID UDC GT SCH ×2 (08:10→21:28)
[2020-01-17] MEDS: HYDROGEN PEROXIDE 3% 118 ML BOTTLE TP SCH ×2 (09:36→21:24)
[2020-01-17] MEDS: VITAL AF 1.2 1,000 ML LIQUID GT SCH (10:52)
[2020-01-17 19:51] VITALS: BP 136/77
[2020-01-17 20:13] VITALS: BP 100/68
[2020-01-17 20:20] VITALS: BP 100/68
[2020-01-17] MEDS: FOLIC ACID 1 MG TABLET GT SCH (21:27)
[2020-01-17] MEDS: THIAMINE HCL 100 MG TABLET GT SCH (21:29)
[2020-01-17] MEDS: CHOLECALCIFEROL 1,000 UNIT TABLET GT SCH (21:29)
[2020-01-18] MEDS: IPRATROPIUM BROMIDE 0.5 MG/2.5 ML NEBU NEB SCH ×6 (03:45→22:52)
[2020-01-18] MEDS: ALBUTEROL SULFATE 2.5 MG/3 ML NEBU NEB SCH ×6 (03:45→22:52)
[2020-01-18] MEDS: BACLOFEN 10 MG TABLET GT SCH ×3 (05:39→21:38)
[2020-01-18] MEDS: BACLOFEN 20 MG TABLET GT SCH ×3 (05:39→21:38)
[2020-01-18] MEDS: MIDODRINE HCL 10 MG TABLET GT SCH ×3 (05:40→21:39)
[2020-01-18] MEDS: OMEPRAZOLE 20 MG CAPSULE.DR GT SCH (05:40)
[2020-01-18] MEDS: METOCLOPRAMIDE HCL 5 MG TABLET GT SCH ×3 (05:40→21:39)
[2020-01-18] MEDS: HYDROGEN PEROXIDE 3% 118 ML BOTTLE TP SCH ×2 (07:11→20:53)
[2020-01-18 07:28] VITALS: BP 95/62
[2020-01-18] MEDS: POTASSIUM CHLORIDE 40 MEQ/30 ML LIQUID UDC GT SCH (08:42)
[2020-01-18] MEDS: levETIRAcetam 500 MG/5 ML LIQUID UDC GT SCH ×2 (08:42→21:37)
[2020-01-18] MEDS: PHENYTOIN 100 MG/4 ML UDC GT SCH ×2 (08:42→21:35)
[2020-01-18] MEDS: ACIDOPHILUS/BULGARICUS CHEW TAB GT SCH ×2 (08:42→21:35)
[2020-01-18] MEDS: FUROSEMIDE 20 MG/2 ML GT SCH (08:42)
[2020-01-18] MEDS: DESMOPRESSIN 0.1 MG TABLET GT SCH (08:42)
[2020-01-18] MEDS: NYSTATIN POWDER 15 GM BOTTLE TP SCH ×4 (08:43→21:38)
[2020-01-18] MEDS: COD LIVER OIL/ZINC OXIDE OINT 113 GM TUBE TOP SCH ×2 (08:43→21:38)
[2020-01-18 19:59] VITALS: BP 94/53
[2020-01-18] MEDS: FOLIC ACID 1 MG TABLET GT SCH (21:36)
[2020-01-18] MEDS: THIAMINE HCL 100 MG TABLET GT SCH (21:37)
[2020-01-18] MEDS: CHOLECALCIFEROL 1,000 UNIT TABLET GT SCH (21:38)
[2020-01-19] MEDS: ALBUTEROL SULFATE 2.5 MG/3 ML NEBU NEB SCH ×6 (02:47→22:40)
[2020-01-19] MEDS: IPRATROPIUM BROMIDE 0.5 MG/2.5 ML NEBU NEB SCH ×6 (02:47→22:40)
[2020-01-19] MEDS: BACLOFEN 20 MG TABLET GT SCH ×3 (05:43→21:35)
[2020-01-19] MEDS: BACLOFEN 10 MG TABLET GT SCH ×3 (05:43→21:35)
[2020-01-19] MEDS: MIDODRINE HCL 10 MG TABLET GT SCH ×3 (05:44→21:35)
[2020-01-19] MEDS: METOCLOPRAMIDE HCL 5 MG TABLET GT SCH ×3 (05:44→21:35)
[2020-01-19] MEDS: OMEPRAZOLE 20 MG CAPSULE.DR GT SCH (05:44)
[2020-01-19] MEDS: HYDROGEN PEROXIDE 3% 118 ML BOTTLE TP SCH ×2 (07:21→19:07)
[2020-01-19 07:41] VITALS: BP 112/74
[2020-01-19] MEDS: DESMOPRESSIN 0.1 MG TABLET GT SCH (08:28)
[2020-01-19] MEDS: PHENYTOIN 100 MG/4 ML UDC GT SCH ×2 (08:28→21:31)
[2020-01-19] MEDS: ACIDOPHILUS/BULGARICUS CHEW TAB GT SCH ×2 (08:28→21:32)
[2020-01-19] MEDS: COD LIVER OIL/ZINC OXIDE OINT 113 GM TUBE TOP SCH ×2 (08:29→21:35)
[2020-01-19] MEDS: levETIRAcetam 500 MG/5 ML LIQUID UDC GT SCH ×2 (08:29→21:33)
[2020-01-19] MEDS: NYSTATIN POWDER 15 GM BOTTLE TP SCH ×4 (08:29→21:35)
[2020-01-19] MEDS: POTASSIUM CHLORIDE 40 MEQ/30 ML LIQUID UDC GT SCH (08:29)
[2020-01-19] MEDS: FUROSEMIDE 20 MG/2 ML GT SCH (08:29)
[2020-01-19 20:00] VITALS: BP 101/64
[2020-01-19] MEDS: FOLIC ACID 1 MG TABLET GT SCH (21:33)
[2020-01-19] MEDS: CHOLECALCIFEROL 1,000 UNIT TABLET GT SCH (21:34)
[2020-01-19] MEDS: THIAMINE HCL 100 MG TABLET GT SCH (21:34)
[2020-01-20] MEDS: ALBUTEROL SULFATE 2.5 MG/3 ML NEBU NEB SCH ×6 (02:40→23:15)
[2020-01-20] MEDS: IPRATROPIUM BROMIDE 0.5 MG/2.5 ML NEBU NEB SCH ×6 (02:40→23:15)
[2020-01-20] MEDS: BACLOFEN 20 MG TABLET GT SCH ×3 (06:18→21:11)
[2020-01-20] MEDS: MIDODRINE HCL 10 MG TABLET GT SCH ×3 (06:18→21:11)
[2020-01-20] MEDS: OMEPRAZOLE 20 MG CAPSULE.DR GT SCH (06:18)
[2020-01-20] MEDS: METOCLOPRAMIDE HCL 5 MG TABLET GT SCH ×3 (06:18→21:11)
[2020-01-20] MEDS: BACLOFEN 10 MG TABLET GT SCH ×3 (06:18→21:11)
[2020-01-20 07:43] VITALS: BP 143/91
[2020-01-20] MEDS: HYDROGEN PEROXIDE 3% 118 ML BOTTLE TP SCH ×2 (08:05→21:24)
[2020-01-20] MEDS: PHENYTOIN 100 MG/4 ML UDC GT SCH ×2 (08:13→20:22)
[2020-01-20] MEDS: DESMOPRESSIN 0.1 MG TABLET GT SCH (08:13)
[2020-01-20] MEDS: ACIDOPHILUS/BULGARICUS CHEW TAB GT SCH ×2 (08:14→20:22)
[2020-01-20] MEDS: levETIRAcetam 500 MG/5 ML LIQUID UDC GT SCH ×2 (08:15→20:22)
[2020-01-20] MEDS: COD LIVER OIL/ZINC OXIDE OINT 113 GM TUBE TOP SCH ×2 (08:16→20:22)
[2020-01-20] MEDS: POTASSIUM CHLORIDE 40 MEQ/30 ML LIQUID UDC GT SCH (08:16)
[2020-01-20] MEDS: FUROSEMIDE 20 MG/2 ML GT SCH (08:16)
[2020-01-20] MEDS: NYSTATIN POWDER 15 GM BOTTLE TP SCH ×4 (08:16→20:22)
[2020-01-20] MEDS: VITAL AF 1.2 1,000 ML LIQUID GT SCH (13:38)
[2020-01-20 20:00] VITALS: BP 104/62
[2020-01-20] MEDS: THIAMINE HCL 100 MG TABLET GT SCH (20:22)
[2020-01-20] MEDS: FOLIC ACID 1 MG TABLET GT SCH (20:22)
[2020-01-20] MEDS: CHOLECALCIFEROL 1,000 UNIT TABLET GT SCH (20:22)
[2020-01-21] MEDS: IPRATROPIUM BROMIDE 0.5 MG/2.5 ML NEBU NEB SCH ×6 (03:08→22:40)
[2020-01-21] MEDS: ALBUTEROL SULFATE 2.5 MG/3 ML NEBU NEB SCH ×6 (03:08→22:40)
[2020-01-21] MEDS: BACLOFEN 10 MG TABLET GT SCH ×3 (05:38→21:13)
[2020-01-21] MEDS: BACLOFEN 20 MG TABLET GT SCH ×3 (05:38→21:13)
[2020-01-21] MEDS: MIDODRINE HCL 10 MG TABLET GT SCH ×3 (05:38→21:13)
[2020-01-21] MEDS: OMEPRAZOLE 20 MG CAPSULE.DR GT SCH (05:39)
[2020-01-21] MEDS: METOCLOPRAMIDE HCL 5 MG TABLET GT SCH ×3 (05:39→21:13)
[2020-01-21 07:40] VITALS: BP 96/47
[2020-01-21] MEDS: HYDROGEN PEROXIDE 3% 118 ML BOTTLE TP SCH ×2 (08:07→21:13)
[2020-01-21] MEDS: DESMOPRESSIN 0.1 MG TABLET GT SCH (09:22)
[2020-01-21] MEDS: PHENYTOIN 100 MG/4 ML UDC GT SCH ×2 (09:22→20:27)
[2020-01-21] MEDS: levETIRAcetam 500 MG/5 ML LIQUID UDC GT SCH ×2 (09:23→20:27)
[2020-01-21] MEDS: POTASSIUM CHLORIDE 40 MEQ/30 ML LIQUID UDC GT SCH (09:23)
[2020-01-21] MEDS: FUROSEMIDE 20 MG/2 ML GT SCH (09:23)
[2020-01-21] MEDS: ACIDOPHILUS/BULGARICUS CHEW TAB GT SCH ×2 (09:23→20:27)
[2020-01-21] MEDS: NYSTATIN POWDER 15 GM BOTTLE TP SCH ×4 (09:24→20:27)
[2020-01-21] MEDS: COD LIVER OIL/ZINC OXIDE OINT 113 GM TUBE TOP SCH ×2 (09:24→20:27)
[2020-01-21] MEDS: VITAL AF 1.2 1,000 ML LIQUID GT SCH (09:47)
--- NOTE | 2020-01-21 19:02 | NUR ---
Pt received on HT-50 ventilator with the following settings of SIMV-12, Vt-500, PEEP+5, PS-10, FIO2-2LPM bleed in, trached with Shiley#6 DCT trach, which is in the place and secure. No s/s of respiratory distress noted. Airway care done, pt responded to physical stimuli. In-line HHN tx with 2.5mg Albuterol+0.5mg Atrovent given, no adverse reaction noted. HME, Sx Garza and HHN adaptor changed. Resus. bag and back up trach at bedside. Vent and alarms checked and reset.
[2020-01-21] MEDS: FOLIC ACID 1 MG TABLET GT SCH (20:27)
[2020-01-21] MEDS: THIAMINE HCL 100 MG TABLET GT SCH (20:27)
[2020-01-21] MEDS: CHOLECALCIFEROL 1,000 UNIT TABLET GT SCH (20:27)
[2020-01-21 22:48] VITALS: BP 130/69
[2020-01-22] MEDS: VITAL AF 1.2 1,000 ML LIQUID GT SCH ×2 (01:58→23:20)
[2020-01-22] MEDS: ALBUTEROL SULFATE 2.5 MG/3 ML NEBU NEB SCH ×6 (02:40→22:30)
[2020-01-22] MEDS: IPRATROPIUM BROMIDE 0.5 MG/2.5 ML NEBU NEB SCH ×6 (02:40→22:30)
[2020-01-22] MEDS: MIDODRINE HCL 10 MG TABLET GT SCH ×3 (05:00→21:12)
[2020-01-22] MEDS: BACLOFEN 10 MG TABLET GT SCH ×3 (05:00→21:12)
[2020-01-22] MEDS: BACLOFEN 20 MG TABLET GT SCH ×3 (05:00→21:12)
[2020-01-22] MEDS: OMEPRAZOLE 20 MG CAPSULE.DR GT SCH (05:01)
[2020-01-22] MEDS: METOCLOPRAMIDE HCL 5 MG TABLET GT SCH ×3 (05:01→21:13)
--- NOTE | 2020-01-22 06:18 | NUR ---
Pt received on HT-50 ventilator with the following settings of SIMV-12, Vt-500, PEEP+5, PS-10, FIO2-2LPM bleed in, trached with Shiley#6 DCT trach, which is in the place and secure. No respiratory distress noted. Airway care done, pt responded to physical stimuli. In-line HHN tx with 2.5mg Albuterol+0.5mg Atrovent given, no adverse reaction noted. HME changed. Pt has a alphonse Resus. bag and back up trach at bedside. Vent and alarms checked and reset.
[2020-01-22] MEDS: HYDROGEN PEROXIDE 3% 118 ML BOTTLE TP SCH ×2 (07:09→21:32)
[2020-01-22 07:37] VITALS: BP 115/69
[2020-01-22] MEDS: PHENYTOIN 100 MG/4 ML UDC GT SCH ×2 (08:53→20:21)
[2020-01-22] MEDS: DESMOPRESSIN 0.1 MG TABLET GT SCH (08:53)
[2020-01-22] MEDS: ACIDOPHILUS/BULGARICUS CHEW TAB GT SCH ×2 (08:54→20:21)
[2020-01-22] MEDS: levETIRAcetam 500 MG/5 ML LIQUID UDC GT SCH ×2 (08:54→20:21)
[2020-01-22] MEDS: FUROSEMIDE 20 MG/2 ML GT SCH (08:54)
[2020-01-22] MEDS: NYSTATIN POWDER 15 GM BOTTLE TP SCH ×4 (08:54→20:21)
[2020-01-22] MEDS: COD LIVER OIL/ZINC OXIDE OINT 113 GM TUBE TOP SCH ×2 (08:54→20:21)
[2020-01-22] MEDS: POTASSIUM CHLORIDE 40 MEQ/30 ML LIQUID UDC GT SCH (08:54)
[2020-01-22] MEDS: THIAMINE HCL 100 MG TABLET GT SCH (20:21)
[2020-01-22] MEDS: FOLIC ACID 1 MG TABLET GT SCH (20:21)
[2020-01-22] MEDS: CHOLECALCIFEROL 1,000 UNIT TABLET GT SCH (20:21)
[2020-01-22 23:24] VITALS: BP 130/55
[2020-01-23] MEDS: ALBUTEROL SULFATE 2.5 MG/3 ML NEBU NEB SCH ×6 (02:30→22:30)
[2020-01-23] MEDS: IPRATROPIUM BROMIDE 0.5 MG/2.5 ML NEBU NEB SCH ×6 (02:30→22:30)
[2020-01-23] MEDS: BACLOFEN 10 MG TABLET GT SCH ×3 (05:19→22:23)
[2020-01-23] MEDS: METOCLOPRAMIDE HCL 5 MG TABLET GT SCH ×3 (05:19→22:23)
[2020-01-23] MEDS: BACLOFEN 20 MG TABLET GT SCH ×3 (05:19→22:23)
[2020-01-23] MEDS: OMEPRAZOLE 20 MG CAPSULE.DR GT SCH (05:19)
[2020-01-23] MEDS: MIDODRINE HCL 10 MG TABLET GT SCH ×3 (05:19→22:23)
[2020-01-23 07:28] VITALS: BP 93/58
[2020-01-23] MEDS: ACIDOPHILUS/BULGARICUS CHEW TAB GT SCH ×2 (08:51→20:34)
[2020-01-23] MEDS: PHENYTOIN 100 MG/4 ML UDC GT SCH ×2 (08:51→21:25)
[2020-01-23] MEDS: POTASSIUM CHLORIDE 40 MEQ/30 ML LIQUID UDC GT SCH (08:51)
[2020-01-23] MEDS: levETIRAcetam 500 MG/5 ML LIQUID UDC GT SCH ×2 (08:51→20:34)
[2020-01-23] MEDS: COD LIVER OIL/ZINC OXIDE OINT 113 GM TUBE TOP SCH ×2 (08:51→20:35)
[2020-01-23] MEDS: DESMOPRESSIN 0.1 MG TABLET GT SCH (08:51)
[2020-01-23] MEDS: NYSTATIN POWDER 15 GM BOTTLE TP SCH ×4 (08:51→20:35)
[2020-01-23] MEDS: FUROSEMIDE 20 MG/2 ML GT SCH (08:51)
[2020-01-23] MEDS: HYDROGEN PEROXIDE 3% 118 ML BOTTLE TP SCH ×2 (09:07→21:34)
[2020-01-23] MEDS: FOLIC ACID 1 MG TABLET GT SCH (20:34)
[2020-01-23] MEDS: THIAMINE HCL 100 MG TABLET GT SCH (20:35)
[2020-01-23] MEDS: CHOLECALCIFEROL 1,000 UNIT TABLET GT SCH (20:35)
[2020-01-23 20:41] VITALS: BP 98/54
[2020-01-24] MEDS: IPRATROPIUM BROMIDE 0.5 MG/2.5 ML NEBU NEB SCH ×6 (02:30→23:02)
[2020-01-24] MEDS: ALBUTEROL SULFATE 2.5 MG/3 ML NEBU NEB SCH ×6 (02:30→23:02)
[2020-01-24] MEDS: MIDODRINE HCL 10 MG TABLET GT SCH ×3 (06:23→22:02)
[2020-01-24] MEDS: BACLOFEN 20 MG TABLET GT SCH ×3 (06:23→22:02)
[2020-01-24] MEDS: OMEPRAZOLE 20 MG CAPSULE.DR GT SCH (06:23)
[2020-01-24] MEDS: BACLOFEN 10 MG TABLET GT SCH ×3 (06:23→22:02)
[2020-01-24] MEDS: METOCLOPRAMIDE HCL 5 MG TABLET GT SCH ×3 (06:23→22:02)
[2020-01-24] MEDS: VITAL AF 1.2 1,000 ML LIQUID GT SCH (06:24)
[2020-01-24 07:25] VITALS: BP 103/57
[2020-01-24] MEDS: FUROSEMIDE 20 MG/2 ML GT SCH (08:50)
[2020-01-24] MEDS: ACIDOPHILUS/BULGARICUS CHEW TAB GT SCH ×2 (08:50→20:34)
[2020-01-24] MEDS: PHENYTOIN 100 MG/4 ML UDC GT SCH ×2 (08:50→20:34)
[2020-01-24] MEDS: POTASSIUM CHLORIDE 40 MEQ/30 ML LIQUID UDC GT SCH (08:50)
[2020-01-24] MEDS: COD LIVER OIL/ZINC OXIDE OINT 113 GM TUBE TOP SCH ×2 (08:50→20:40)
[2020-01-24] MEDS: DESMOPRESSIN 0.1 MG TABLET GT SCH (08:50)
[2020-01-24] MEDS: levETIRAcetam 500 MG/5 ML LIQUID UDC GT SCH ×2 (08:50→20:35)
[2020-01-24] MEDS: HYDROGEN PEROXIDE 3% 118 ML BOTTLE TP SCH ×2 (09:15→21:04)
[2020-01-24 20:02] VITALS: BP 97/63
[2020-01-24] MEDS: FOLIC ACID 1 MG TABLET GT SCH (20:35)
[2020-01-24] MEDS: THIAMINE HCL 100 MG TABLET GT SCH (20:36)
[2020-01-24] MEDS: CHOLECALCIFEROL 1,000 UNIT TABLET GT SCH (20:36)
[2020-01-25] MEDS: IPRATROPIUM BROMIDE 0.5 MG/2.5 ML NEBU NEB SCH ×6 (02:50→23:05)
[2020-01-25] MEDS: ALBUTEROL SULFATE 2.5 MG/3 ML NEBU NEB SCH ×6 (02:50→23:05)
[2020-01-25] MEDS: BACLOFEN 20 MG TABLET GT SCH ×3 (05:33→22:31)
[2020-01-25] MEDS: BACLOFEN 10 MG TABLET GT SCH ×3 (05:33→22:31)
[2020-01-25] MEDS: MIDODRINE HCL 10 MG TABLET GT SCH ×3 (05:34→22:32)
[2020-01-25] MEDS: METOCLOPRAMIDE HCL 5 MG TABLET GT SCH ×3 (05:34→22:33)
[2020-01-25] MEDS: OMEPRAZOLE 20 MG CAPSULE.DR GT SCH (05:34)
[2020-01-25] MEDS: VITAL AF 1.2 1,000 ML LIQUID GT SCH (05:35)
[2020-01-25 07:24] VITALS: BP 104/54
[2020-01-25] MEDS: POTASSIUM CHLORIDE 40 MEQ/30 ML LIQUID UDC GT SCH (08:23)
[2020-01-25] MEDS: levETIRAcetam 500 MG/5 ML LIQUID UDC GT SCH ×2 (08:23→20:34)
[2020-01-25] MEDS: DESMOPRESSIN 0.1 MG TABLET GT SCH (08:23)
[2020-01-25] MEDS: PHENYTOIN 100 MG/4 ML UDC GT SCH ×2 (08:23→20:31)
[2020-01-25] MEDS: ACIDOPHILUS/BULGARICUS CHEW TAB GT SCH ×2 (08:23→20:33)
[2020-01-25] MEDS: COD LIVER OIL/ZINC OXIDE OINT 113 GM TUBE TOP SCH ×2 (08:23→20:34)
[2020-01-25] MEDS: FUROSEMIDE 20 MG/2 ML GT SCH (08:23)
[2020-01-25] MEDS: HYDROGEN PEROXIDE 3% 118 ML BOTTLE TP SCH ×2 (09:20→21:53)
--- NOTE | 2020-01-25 17:37 | NUR ---
Seen and examined by Dr Wagner with new orders noted and carried out.
[2020-01-25 19:49] VITALS: BP 114/66
[2020-01-25 19:53] VITALS: BP 108/62
[2020-01-25] MEDS: FOLIC ACID 1 MG TABLET GT SCH (20:33)
[2020-01-25] MEDS: CHOLECALCIFEROL 1,000 UNIT TABLET GT SCH (20:34)
[2020-01-25] MEDS: THIAMINE HCL 100 MG TABLET GT SCH (20:34)
[2020-01-26] MEDS: ALBUTEROL SULFATE 2.5 MG/3 ML NEBU NEB SCH ×6 (03:40→23:59)
[2020-01-26] MEDS: IPRATROPIUM BROMIDE 0.5 MG/2.5 ML NEBU NEB SCH ×6 (03:40→23:59)
[2020-01-26] MEDS: BACLOFEN 10 MG TABLET GT SCH ×3 (05:12→22:25)
[2020-01-26] MEDS: METOCLOPRAMIDE HCL 5 MG TABLET GT SCH ×3 (05:12→22:26)
[2020-01-26] MEDS: OMEPRAZOLE 20 MG CAPSULE.DR GT SCH (05:12)
[2020-01-26] MEDS: MIDODRINE HCL 10 MG TABLET GT SCH ×3 (05:12→22:26)
[2020-01-26] MEDS: BACLOFEN 20 MG TABLET GT SCH ×3 (05:12→22:25)
[2020-01-26] MEDS: VITAL AF 1.2 1,000 ML LIQUID GT SCH (06:03)
[2020-01-26] MEDS: HYDROGEN PEROXIDE 3% 118 ML BOTTLE TP SCH ×2 (07:30→21:35)
[2020-01-26 07:42] VITALS: BP 121/80
[2020-01-26] MEDS: PHENYTOIN 100 MG/4 ML UDC GT SCH ×2 (08:27→20:38)
[2020-01-26] MEDS: DESMOPRESSIN 0.1 MG TABLET GT SCH (08:27)
[2020-01-26] MEDS: FUROSEMIDE 20 MG/2 ML GT SCH (08:28)
[2020-01-26] MEDS: COD LIVER OIL/ZINC OXIDE OINT 113 GM TUBE TOP SCH ×2 (08:28→20:44)
[2020-01-26] MEDS: levETIRAcetam 500 MG/5 ML LIQUID UDC GT SCH ×2 (08:28→20:42)
[2020-01-26] MEDS: POTASSIUM CHLORIDE 40 MEQ/30 ML LIQUID UDC GT SCH (08:28)
[2020-01-26] MEDS: ACIDOPHILUS/BULGARICUS CHEW TAB GT SCH ×2 (08:28→20:41)
--- NOTE | 2020-01-26 09:00 | NUR ---
Provided video chat to pt. and her mother with no problem, pt remains comfortable all needs attended and anticipated.
[2020-01-26 20:24] VITALS: BP 103/60
[2020-01-26] MEDS: FOLIC ACID 1 MG TABLET GT SCH (20:42)
[2020-01-26] MEDS: CHOLECALCIFEROL 1,000 UNIT TABLET GT SCH (20:43)
[2020-01-26] MEDS: THIAMINE HCL 100 MG TABLET GT SCH (20:43)
--- NOTE | 2020-01-27 02:00 | NUR ---
New order for COVID-19 test per [facility] COVID-19 requirement.
[2020-01-27] MEDS: IPRATROPIUM BROMIDE 0.5 MG/2.5 ML NEBU NEB SCH ×6 (04:03→23:10)
[2020-01-27] MEDS: ALBUTEROL SULFATE 2.5 MG/3 ML NEBU NEB SCH ×6 (04:03→23:10)
[2020-01-27] MEDS: BACLOFEN 20 MG TABLET GT SCH ×3 (05:37→21:08)
[2020-01-27] MEDS: BACLOFEN 10 MG TABLET GT SCH ×3 (05:37→21:07)
[2020-01-27] MEDS: MIDODRINE HCL 10 MG TABLET GT SCH ×3 (05:38→21:08)
[2020-01-27] MEDS: METOCLOPRAMIDE HCL 5 MG TABLET GT SCH ×3 (05:38→21:08)
[2020-01-27] MEDS: OMEPRAZOLE 20 MG CAPSULE.DR GT SCH (05:38)
[2020-01-27] MEDS: HYDROGEN PEROXIDE 3% 118 ML BOTTLE TP SCH ×2 (07:08→21:13)
[2020-01-27 07:56] VITALS: BP 107/56
[2020-01-27] MEDS: levETIRAcetam 500 MG/5 ML LIQUID UDC GT SCH ×2 (09:09→21:07)
[2020-01-27] MEDS: ACIDOPHILUS/BULGARICUS CHEW TAB GT SCH ×2 (09:09→21:07)
[2020-01-27] MEDS: COD LIVER OIL/ZINC OXIDE OINT 113 GM TUBE TOP SCH ×2 (09:09→21:07)
[2020-01-27] MEDS: PHENYTOIN 100 MG/4 ML UDC GT SCH ×2 (09:09→21:07)
[2020-01-27] MEDS: DESMOPRESSIN 0.1 MG TABLET GT SCH (09:09)
[2020-01-27] MEDS: FUROSEMIDE 20 MG/2 ML GT SCH (09:09)
[2020-01-27] MEDS: POTASSIUM CHLORIDE 40 MEQ/30 ML LIQUID UDC GT SCH (09:09)
--- NOTE | 2020-01-27 11:00 | NUR ---
Contacted [place] in order to inform of COVID 19 possible exposure and testing plan.
[2020-01-27 19:49] VITALS: BP 94/58
[2020-01-27] MEDS: THIAMINE HCL 100 MG TABLET GT SCH (21:07)
[2020-01-27] MEDS: CHOLECALCIFEROL 1,000 UNIT TABLET GT SCH (21:07)
[2020-01-27] MEDS: FOLIC ACID 1 MG TABLET GT SCH (21:07)
[2020-01-28] MEDS: ALBUTEROL SULFATE 2.5 MG/3 ML NEBU NEB SCH ×6 (03:04→22:30)
[2020-01-28] MEDS: IPRATROPIUM BROMIDE 0.5 MG/2.5 ML NEBU NEB SCH ×6 (03:04→22:30)
[2020-01-28] MEDS: METOCLOPRAMIDE HCL 5 MG TABLET GT SCH ×3 (05:59→21:49)
[2020-01-28] MEDS: BACLOFEN 20 MG TABLET GT SCH ×3 (05:59→21:48)
[2020-01-28] MEDS: BACLOFEN 10 MG TABLET GT SCH ×3 (05:59→21:48)
[2020-01-28] MEDS: OMEPRAZOLE 20 MG CAPSULE.DR GT SCH (05:59)
[2020-01-28] MEDS: MIDODRINE HCL 10 MG TABLET GT SCH ×3 (05:59→21:49)
[2020-01-28 07:44] VITALS: BP 92/54
[2020-01-28] MEDS: HYDROGEN PEROXIDE 3% 118 ML BOTTLE TP SCH ×2 (09:00→21:42)
[2020-01-28] MEDS: FUROSEMIDE 20 MG/2 ML GT SCH (09:02)
[2020-01-28] MEDS: PHENYTOIN 100 MG/4 ML UDC GT SCH ×2 (09:02→21:45)
[2020-01-28] MEDS: COD LIVER OIL/ZINC OXIDE OINT 113 GM TUBE TOP SCH ×2 (09:02→21:48)
[2020-01-28] MEDS: levETIRAcetam 500 MG/5 ML LIQUID UDC GT SCH ×2 (09:02→21:47)
[2020-01-28] MEDS: ACIDOPHILUS/BULGARICUS CHEW TAB GT SCH ×2 (09:02→21:46)
[2020-01-28] MEDS: DESMOPRESSIN 0.1 MG TABLET GT SCH (09:02)
[2020-01-28] MEDS: POTASSIUM CHLORIDE 40 MEQ/30 ML LIQUID UDC GT SCH (09:02)
[2020-01-28] MEDS: VITAL AF 1.2 1,000 ML LIQUID GT SCH (17:02)
--- NOTE | 2020-01-28 19:00 | NUR ---
Laboratory call with results,Covid 19 negative.
[2020-01-28 20:04] VITALS: BP 100/63
[2020-01-28] MEDS: FOLIC ACID 1 MG TABLET GT SCH (21:46)
[2020-01-28] MEDS: CHOLECALCIFEROL 1,000 UNIT TABLET GT SCH (21:48)
[2020-01-28] MEDS: THIAMINE HCL 100 MG TABLET GT SCH (21:48)
[2020-01-29] MEDS: ALBUTEROL SULFATE 2.5 MG/3 ML NEBU NEB SCH ×6 (02:30→22:32)
[2020-01-29] MEDS: IPRATROPIUM BROMIDE 0.5 MG/2.5 ML NEBU NEB SCH ×6 (02:30→22:32)
[2020-01-29] MEDS: MIDODRINE HCL 10 MG TABLET GT SCH ×3 (05:27→21:10)
[2020-01-29] MEDS: OMEPRAZOLE 20 MG CAPSULE.DR GT SCH (05:27)
[2020-01-29] MEDS: BACLOFEN 10 MG TABLET GT SCH ×3 (05:27→21:09)
[2020-01-29] MEDS: BACLOFEN 20 MG TABLET GT SCH ×3 (05:27→21:09)
[2020-01-29] MEDS: METOCLOPRAMIDE HCL 5 MG TABLET GT SCH ×3 (05:27→21:10)
[2020-01-29 07:28] VITALS: BP 100/62
[2020-01-29] MEDS: FUROSEMIDE 20 MG/2 ML GT SCH (08:32)
[2020-01-29] MEDS: POTASSIUM CHLORIDE 40 MEQ/30 ML LIQUID UDC GT SCH (08:32)
[2020-01-29] MEDS: DESMOPRESSIN 0.1 MG TABLET GT SCH (08:32)
[2020-01-29] MEDS: ACIDOPHILUS/BULGARICUS CHEW TAB GT SCH ×2 (08:32→21:08)
[2020-01-29] MEDS: levETIRAcetam 500 MG/5 ML LIQUID UDC GT SCH ×2 (08:32→21:08)
[2020-01-29] MEDS: PHENYTOIN 100 MG/4 ML UDC GT SCH ×2 (08:32→21:07)
[2020-01-29] MEDS: COD LIVER OIL/ZINC OXIDE OINT 113 GM TUBE TOP SCH ×2 (08:32→21:09)
[2020-01-29] MEDS: HYDROGEN PEROXIDE 3% 118 ML BOTTLE TP SCH ×2 (09:30→19:16)
--- NOTE | 2020-01-29 19:00 | NUR ---
Spoke to Brayan ,Kuldeep son,who is in charge of the patient while Kuldeep is away,aware of Covid 19 results are negative.
[2020-01-29 20:26] VITALS: BP 99/60
[2020-01-29] MEDS: CHOLECALCIFEROL 1,000 UNIT TABLET GT SCH (21:08)
[2020-01-29] MEDS: THIAMINE HCL 100 MG TABLET GT SCH (21:08)
[2020-01-29] MEDS: FOLIC ACID 1 MG TABLET GT SCH (21:08)
[2020-01-30] MEDS: ALBUTEROL SULFATE 2.5 MG/3 ML NEBU NEB SCH ×6 (04:29→22:32)
[2020-01-30] MEDS: IPRATROPIUM BROMIDE 0.5 MG/2.5 ML NEBU NEB SCH ×6 (04:29→22:32)
[2020-01-30] MEDS: MIDODRINE HCL 10 MG TABLET GT SCH ×3 (05:13→21:42)
[2020-01-30] MEDS: BACLOFEN 20 MG TABLET GT SCH ×3 (05:13→21:42)
[2020-01-30] MEDS: OMEPRAZOLE 20 MG CAPSULE.DR GT SCH (05:13)
[2020-01-30] MEDS: METOCLOPRAMIDE HCL 5 MG TABLET GT SCH ×3 (05:13→21:42)
[2020-01-30] MEDS: BACLOFEN 10 MG TABLET GT SCH ×3 (05:13→21:42)
[2020-01-30 06:32] LABS: BASOPHILS # (AUTO) 0.1 K/uL (0.0-8.0); BASOPHILS % (AUTO) 1.1 % (0.0-2.0); EOSINOPHILS # (AUTO) 0.6 K/uL (0.0-0.7); EOSINOPHILS % (AUTO) 8.6 % (0.0-7.0); HEMATOCRIT 27.6 % (31.2-41.9); HEMOGLOBIN 9.8 g/dL (10.9-14.3); LYMPHOCYTES # (AUTO) 2.2 K/uL (20.0-40.0); LYMPHOCYTES % (AUTO) 33.1 % (20.5-51.5); MEAN CORPUSCULAR HEMOGLOBIN 32.6 uug (24.7-32.8); MEAN CORPUSCULAR HGB CONC 35 g/dL (32.3-35.6); MEAN CORPUSCULAR VOLUME 92.1 fL (75.5-95.3); MONOCYTES # (AUTO) 0.3 K/uL (2.0-10.0); MONOCYTES % (AUTO) 4.7 % (0.0-11.0); NEUTROPHILS # (AUTO) 3.5 K/uL (1.8-8.9); NEUTROPHILS % (AUTO) 52.5 % (38.5-71.5); PLATELET COUNT (AUTO) 352 K/uL (179-408); WHITE BLOOD COUNT (AUTO) 6.6 K/uL (3.8-11.8)
[2020-01-30 06:55] LABS: BILIRUBIN,TOTAL 0.1 mg/dL (0.2-1.0); CREATININE 0.6 mg/dL (0.6-1.3); TOTAL PROTEIN, SERUM 5.9 g/dL (6.4-8.2)
[2020-01-30 07:38] VITALS: BP 107/66
[2020-01-30] MEDS: POTASSIUM CHLORIDE 40 MEQ/30 ML LIQUID UDC GT SCH (08:29)
[2020-01-30] MEDS: levETIRAcetam 500 MG/5 ML LIQUID UDC GT SCH ×2 (08:29→20:10)
[2020-01-30] MEDS: ACIDOPHILUS/BULGARICUS CHEW TAB GT SCH ×2 (08:29→20:10)
[2020-01-30] MEDS: PHENYTOIN 100 MG/4 ML UDC GT SCH ×2 (08:29→20:10)
[2020-01-30] MEDS: DESMOPRESSIN 0.1 MG TABLET GT SCH (08:29)
[2020-01-30] MEDS: FUROSEMIDE 20 MG/2 ML GT SCH (08:29)
[2020-01-30] MEDS: COD LIVER OIL/ZINC OXIDE OINT 113 GM TUBE TOP SCH ×2 (08:30→20:14)
[2020-01-30] MEDS: HYDROGEN PEROXIDE 3% 118 ML BOTTLE TP SCH ×2 (09:31→21:19)
--- NOTE | 2020-01-30 19:03 | NUR ---
Received pt on HT-50 ventilator with the following settings of SIMV-12, Vt-500, PEEP+5, PS-10, FIO2-2LPM bleed in, trached with Shiley#6 DCT trach, which is in the place and secure. No s/s of respiratory distress noted. Airway care done, pt responded to physical stimuli. In-line HHN tx with 2.5mg Albuterol+0.5mg Atrovent given, no adverse reaction noted. HME changed. Resus. bag and back up trach at bedside. Vent and alarms checked and reset.
[2020-01-30] MEDS: FOLIC ACID 1 MG TABLET GT SCH (20:10)
[2020-01-30] MEDS: CHOLECALCIFEROL 1,000 UNIT TABLET GT SCH (20:13)
[2020-01-30] MEDS: THIAMINE HCL 100 MG TABLET GT SCH (20:13)
[2020-01-30 20:26] VITALS: BP 102/62
[2020-01-30 20:34] VITALS: BP 89/51
[2020-01-31] MEDS: IPRATROPIUM BROMIDE 0.5 MG/2.5 ML NEBU NEB SCH ×6 (02:30→22:30)
[2020-01-31] MEDS: ALBUTEROL SULFATE 2.5 MG/3 ML NEBU NEB SCH ×6 (02:30→22:30)
[2020-01-31] MEDS: OMEPRAZOLE 20 MG CAPSULE.DR GT SCH (05:36)
[2020-01-31] MEDS: METOCLOPRAMIDE HCL 5 MG TABLET GT SCH ×3 (05:36→21:33)
[2020-01-31] MEDS: BACLOFEN 10 MG TABLET GT SCH ×3 (05:36→21:32)
[2020-01-31] MEDS: MIDODRINE HCL 10 MG TABLET GT SCH ×3 (05:36→21:33)
[2020-01-31] MEDS: BACLOFEN 20 MG TABLET GT SCH ×3 (05:36→21:32)
[2020-01-31] MEDS: HYDROGEN PEROXIDE 3% 118 ML BOTTLE TP SCH ×2 (07:23→21:26)
[2020-01-31 07:39] VITALS: BP 103/57
[2020-01-31] MEDS: levETIRAcetam 500 MG/5 ML LIQUID UDC GT SCH ×2 (08:05→21:31)
[2020-01-31] MEDS: ACIDOPHILUS/BULGARICUS CHEW TAB GT SCH ×2 (08:05→21:31)
[2020-01-31] MEDS: DESMOPRESSIN 0.1 MG TABLET GT SCH (08:05)
[2020-01-31] MEDS: FUROSEMIDE 20 MG/2 ML GT SCH (08:05)
[2020-01-31] MEDS: POTASSIUM CHLORIDE 40 MEQ/30 ML LIQUID UDC GT SCH (08:05)
[2020-01-31] MEDS: PHENYTOIN 100 MG/4 ML UDC GT SCH ×2 (08:05→21:31)
[2020-01-31] MEDS: COD LIVER OIL/ZINC OXIDE OINT 113 GM TUBE TOP SCH ×2 (08:06→21:32)
[2020-01-31] MEDS: VITAL AF 1.2 1,000 ML LIQUID GT SCH (14:44)
--- NOTE | 2020-01-31 17:05 | NUR ---
INTERDISCIPLINARY PLAN OF CARE CONFERENCE was held today. Patient's mother was not available to participate in the meeting. Dr. Wagner and the Interdisciplinary team reviewed the current plan of care in detail. RN reported on patient's current medical condition, and recent lab findings. See RN IDT conference notes. See also all other disciplines IDT notes and physician's progress notes for additional details.
--- NOTE | 2020-01-31 18:43 | NUR ---
Received pt on HT-50 ventilator with the following settings of SIMV-12, Vt-500, PEEP+5, PS-10, FIO2-2LPM bleed in, trached with Susyley#6 DCT trach, which is in the place and secure. No respiratory distress noted. Airway care done, pt responded to physical stimuli. In-line HHN tx with 2.5mg Albuterol+0.5mg Atrovent given, no adverse reaction noted. HME changed. Pt has a gauze between her lips, to prevent biting. Resus. bag and back up trach at bedside. Vent and alarms checked and reset.
[2020-01-31 20:19] VITALS: BP 110/70
[2020-01-31] MEDS: FOLIC ACID 1 MG TABLET GT SCH (21:31)
[2020-01-31] MEDS: CHOLECALCIFEROL 1,000 UNIT TABLET GT SCH (21:32)
[2020-01-31] MEDS: THIAMINE HCL 100 MG TABLET GT SCH (21:32)
[2020-02-01] MEDS: ALBUTEROL SULFATE 2.5 MG/3 ML NEBU NEB SCH ×6 (02:30→22:35)
[2020-02-01] MEDS: IPRATROPIUM BROMIDE 0.5 MG/2.5 ML NEBU NEB SCH ×6 (02:30→22:35)
[2020-02-01] MEDS: METOCLOPRAMIDE HCL 5 MG TABLET GT SCH ×3 (05:39→22:16)
[2020-02-01] MEDS: MIDODRINE HCL 10 MG TABLET GT SCH ×3 (05:39→22:16)
[2020-02-01] MEDS: BACLOFEN 10 MG TABLET GT SCH ×3 (05:39→22:16)
[2020-02-01] MEDS: OMEPRAZOLE 20 MG CAPSULE.DR GT SCH (05:39)
[2020-02-01] MEDS: BACLOFEN 20 MG TABLET GT SCH ×3 (05:39→22:16)
[2020-02-01 07:44] VITALS: BP 110/55
[2020-02-01] MEDS: POTASSIUM CHLORIDE 40 MEQ/30 ML LIQUID UDC GT SCH (09:04)
[2020-02-01] MEDS: PHENYTOIN 100 MG/4 ML UDC GT SCH ×2 (09:04→20:46)
[2020-02-01] MEDS: COD LIVER OIL/ZINC OXIDE OINT 113 GM TUBE TOP SCH ×2 (09:04→20:48)
[2020-02-01] MEDS: FUROSEMIDE 20 MG/2 ML GT SCH (09:04)
[2020-02-01] MEDS: levETIRAcetam 500 MG/5 ML LIQUID UDC GT SCH ×2 (09:04→20:48)
[2020-02-01] MEDS: DESMOPRESSIN 0.1 MG TABLET GT SCH (09:04)
[2020-02-01] MEDS: ACIDOPHILUS/BULGARICUS CHEW TAB GT SCH ×2 (09:04→20:46)
[2020-02-01] MEDS: HYDROGEN PEROXIDE 3% 118 ML BOTTLE TP SCH ×2 (09:30→19:12)
[2020-02-01] MEDS: VITAL AF 1.2 1,000 ML LIQUID GT SCH (14:35)
--- NOTE | 2020-02-01 16:49 | NUR ---
New order for COVID-19 test per [facility] COVID-19 requirement.
--- NOTE | 2020-02-01 17:31 | NUR ---
Seen and examined by Dr Wagner no new orders noted.
--- NOTE | 2020-02-01 18:05 | NUR ---
Informed family member Anamaria, of COVID-19 that there will be a 2nd testing plan with good verbal understanding.
[2020-02-01 20:05] VITALS: BP 95/55
[2020-02-01] MEDS: FOLIC ACID 1 MG TABLET GT SCH (20:47)
[2020-02-01] MEDS: THIAMINE HCL 100 MG TABLET GT SCH (20:48)
[2020-02-01] MEDS: CHOLECALCIFEROL 1,000 UNIT TABLET GT SCH (20:48)
[2020-02-02] MEDS: IPRATROPIUM BROMIDE 0.5 MG/2.5 ML NEBU NEB SCH ×6 (01:30→23:10)
[2020-02-02] MEDS: ALBUTEROL SULFATE 2.5 MG/3 ML NEBU NEB SCH ×6 (01:30→23:10)
[2020-02-02] MEDS: BACLOFEN 10 MG TABLET GT SCH ×3 (05:37→21:44)
[2020-02-02] MEDS: BACLOFEN 20 MG TABLET GT SCH ×3 (05:38→21:44)
[2020-02-02] MEDS: MIDODRINE HCL 10 MG TABLET GT SCH ×3 (05:41→21:45)
[2020-02-02] MEDS: METOCLOPRAMIDE HCL 5 MG TABLET GT SCH ×3 (05:41→21:45)
[2020-02-02] MEDS: OMEPRAZOLE 20 MG CAPSULE.DR GT SCH (05:41)
[2020-02-02 08:08] VITALS: BP 111/66
[2020-02-02] MEDS: levETIRAcetam 500 MG/5 ML LIQUID UDC GT SCH ×2 (08:40→21:44)
[2020-02-02] MEDS: DESMOPRESSIN 0.1 MG TABLET GT SCH (08:40)
[2020-02-02] MEDS: FUROSEMIDE 20 MG/2 ML GT SCH (08:40)
[2020-02-02] MEDS: PHENYTOIN 100 MG/4 ML UDC GT SCH ×2 (08:40→21:44)
[2020-02-02] MEDS: POTASSIUM CHLORIDE 40 MEQ/30 ML LIQUID UDC GT SCH (08:40)
[2020-02-02] MEDS: ACIDOPHILUS/BULGARICUS CHEW TAB GT SCH ×2 (08:40→21:44)
[2020-02-02] MEDS: COD LIVER OIL/ZINC OXIDE OINT 113 GM TUBE TOP SCH ×2 (08:40→21:44)
[2020-02-02] MEDS: HYDROGEN PEROXIDE 3% 118 ML BOTTLE TP SCH ×2 (09:07→20:47)
[2020-02-02] MEDS: VITAL AF 1.2 1,000 ML LIQUID GT SCH (12:00)
--- NOTE | 2020-02-02 18:27 | NUR ---
MESSAGE LEFT RE COVID TEST TOMORROW TO FAMILY FRIEND ELVA TO NOTIFY PT'S MOTHER IN HER LANGUAGE.
[2020-02-02] MEDS: MAGNESIUM HYDROXIDE 30 ML LIQUID UDC GT PRN (18:55)
[2020-02-02 20:00] VITALS: BP 92/56
[2020-02-02] MEDS: CHOLECALCIFEROL 1,000 UNIT TABLET GT SCH (21:44)
[2020-02-02] MEDS: THIAMINE HCL 100 MG TABLET GT SCH (21:44)
[2020-02-02] MEDS: FOLIC ACID 1 MG TABLET GT SCH (21:44)
[2020-02-03] MEDS: ALBUTEROL SULFATE 2.5 MG/3 ML NEBU NEB SCH ×6 (03:07→23:12)
[2020-02-03] MEDS: IPRATROPIUM BROMIDE 0.5 MG/2.5 ML NEBU NEB SCH ×6 (03:07→23:12)
[2020-02-03] MEDS: MIDODRINE HCL 10 MG TABLET GT SCH ×3 (05:43→21:07)
[2020-02-03] MEDS: BACLOFEN 10 MG TABLET GT SCH ×3 (05:43→21:06)
[2020-02-03] MEDS: METOCLOPRAMIDE HCL 5 MG TABLET GT SCH ×3 (05:43→21:07)
[2020-02-03] MEDS: BACLOFEN 20 MG TABLET GT SCH ×3 (05:43→21:06)
[2020-02-03] MEDS: OMEPRAZOLE 20 MG CAPSULE.DR GT SCH (05:43)
[2020-02-03 08:06] VITALS: BP 109/67
[2020-02-03] MEDS: DESMOPRESSIN 0.1 MG TABLET GT SCH (08:22)
[2020-02-03] MEDS: PHENYTOIN 100 MG/4 ML UDC GT SCH ×2 (08:23→21:06)
[2020-02-03] MEDS: ACIDOPHILUS/BULGARICUS CHEW TAB GT SCH ×2 (08:23→21:06)
[2020-02-03] MEDS: levETIRAcetam 500 MG/5 ML LIQUID UDC GT SCH ×2 (08:24→21:06)
[2020-02-03] MEDS: FUROSEMIDE 20 MG/2 ML GT SCH (08:24)
[2020-02-03] MEDS: POTASSIUM CHLORIDE 40 MEQ/30 ML LIQUID UDC GT SCH (08:24)
[2020-02-03] MEDS: VITAL AF 1.2 1,000 ML LIQUID GT SCH (08:25)
[2020-02-03] MEDS: COD LIVER OIL/ZINC OXIDE OINT 113 GM TUBE TOP SCH ×2 (08:25→21:06)
[2020-02-03] MEDS: HYDROGEN PEROXIDE 3% 118 ML BOTTLE TP SCH ×2 (08:38→21:11)
--- NOTE | 2020-02-03 19:30 | NUR ---
PT REMAIN ON CONTINUOUS VENT, TRACH CARE DONE. TRACH IN PLACED AND SECURED WITH TRACH TIE. BACK-UP TRACH AND AMBU BAG AT BEDSIDE . IN LINE TX GIVEN WITH UD ALBUTEROL+ UD ATROVENT ORDERED. SUCTION PRN. VENT CHECKED, ALARMS AUDIBLE, CHECKED AND RESET. NO DISTRESS NOTED AT THIS TIME. WILL CONTINUE TO MONITOR.
[2020-02-03 20:00] VITALS: BP 89/49
[2020-02-03] MEDS: CHOLECALCIFEROL 1,000 UNIT TABLET GT SCH (21:06)
[2020-02-03] MEDS: THIAMINE HCL 100 MG TABLET GT SCH (21:06)
[2020-02-03] MEDS: FOLIC ACID 1 MG TABLET GT SCH (21:06)
[2020-02-04] MEDS: ALBUTEROL SULFATE 2.5 MG/3 ML NEBU NEB SCH ×6 (03:04→22:30)
[2020-02-04] MEDS: IPRATROPIUM BROMIDE 0.5 MG/2.5 ML NEBU NEB SCH ×6 (03:04→22:30)
[2020-02-04] MEDS: BACLOFEN 10 MG TABLET GT SCH ×3 (05:19→21:03)
[2020-02-04] MEDS: MIDODRINE HCL 10 MG TABLET GT SCH ×3 (05:19→21:03)
[2020-02-04] MEDS: OMEPRAZOLE 20 MG CAPSULE.DR GT SCH (05:19)
[2020-02-04] MEDS: METOCLOPRAMIDE HCL 5 MG TABLET GT SCH ×3 (05:19→21:03)
[2020-02-04] MEDS: BACLOFEN 20 MG TABLET GT SCH ×3 (05:19→21:03)
[2020-02-04 07:38] VITALS: BP 118/75
[2020-02-04] MEDS: HYDROGEN PEROXIDE 3% 118 ML BOTTLE TP SCH ×2 (08:50→21:14)
[2020-02-04] MEDS: PHENYTOIN 100 MG/4 ML UDC GT SCH ×2 (09:07→21:02)
[2020-02-04] MEDS: DESMOPRESSIN 0.1 MG TABLET GT SCH (09:07)
[2020-02-04] MEDS: ACIDOPHILUS/BULGARICUS CHEW TAB GT SCH ×2 (09:08→21:02)
[2020-02-04] MEDS: levETIRAcetam 500 MG/5 ML LIQUID UDC GT SCH ×2 (09:08→21:02)
[2020-02-04] MEDS: FUROSEMIDE 20 MG/2 ML GT SCH (09:09)
[2020-02-04] MEDS: POTASSIUM CHLORIDE 40 MEQ/30 ML LIQUID UDC GT SCH (09:09)
[2020-02-04] MEDS: COD LIVER OIL/ZINC OXIDE OINT 113 GM TUBE TOP SCH ×2 (09:09→21:02)
[2020-02-04] MEDS: VITAL AF 1.2 1,000 ML LIQUID GT SCH (09:44)
[2020-02-04] MEDS: CHOLECALCIFEROL 1,000 UNIT TABLET GT SCH (21:02)
[2020-02-04] MEDS: THIAMINE HCL 100 MG TABLET GT SCH (21:02)
[2020-02-04] MEDS: FOLIC ACID 1 MG TABLET GT SCH (21:02)
[2020-02-04 22:47] VITALS: BP 100/59
[2020-02-05] MEDS: ALBUTEROL SULFATE 2.5 MG/3 ML NEBU NEB SCH ×6 (02:36→22:30)
[2020-02-05] MEDS: IPRATROPIUM BROMIDE 0.5 MG/2.5 ML NEBU NEB SCH ×6 (02:36→22:30)
[2020-02-05] MEDS: METOCLOPRAMIDE HCL 5 MG TABLET GT SCH ×3 (05:22→21:04)
[2020-02-05] MEDS: OMEPRAZOLE 20 MG CAPSULE.DR GT SCH (05:22)
[2020-02-05] MEDS: MIDODRINE HCL 10 MG TABLET GT SCH ×3 (05:22→21:04)
[2020-02-05] MEDS: BACLOFEN 20 MG TABLET GT SCH ×3 (05:22→21:03)
[2020-02-05] MEDS: BACLOFEN 10 MG TABLET GT SCH ×3 (05:22→21:03)
[2020-02-05] MEDS: HYDROGEN PEROXIDE 3% 118 ML BOTTLE TP SCH ×2 (07:23→21:18)
[2020-02-05 07:50] VITALS: BP 116/71
[2020-02-05] MEDS: DESMOPRESSIN 0.1 MG TABLET GT SCH (08:07)
[2020-02-05] MEDS: PHENYTOIN 100 MG/4 ML UDC GT SCH ×2 (08:08→20:54)
[2020-02-05] MEDS: ACIDOPHILUS/BULGARICUS CHEW TAB GT SCH ×2 (08:08→20:54)
[2020-02-05] MEDS: levETIRAcetam 500 MG/5 ML LIQUID UDC GT SCH ×2 (08:09→20:54)
[2020-02-05] MEDS: POTASSIUM CHLORIDE 40 MEQ/30 ML LIQUID UDC GT SCH (08:09)
[2020-02-05] MEDS: FUROSEMIDE 20 MG/2 ML GT SCH (08:09)
[2020-02-05] MEDS: COD LIVER OIL/ZINC OXIDE OINT 113 GM TUBE TOP SCH ×2 (08:10→20:54)
[2020-02-05] MEDS: VITAL AF 1.2 1,000 ML LIQUID GT SCH (14:54)
--- NOTE | 2020-02-05 16:58 | NUR ---
MESSAGE LEFT FOR ESTRELLA RE: PT. NEGATIVE FOR COVID 19 TEST.
--- NOTE | 2020-02-05 18:44 | NUR ---
Received pt on HT-50 ventilator with the following settings of SIMV-12, Vt-500, PEEP+5, PS-10, FIO2-2LPM bleed in, trached with Susyley#6 DCT trach, which is in the place and secure. No distress noted. Airway care done, pt responded to physical stimuli. In-line HHN tx with 2.5mg Albuterol+0.5mg Atrovent given, no adverse reaction noted. HME changed. Pt has a gauze between her lips, to prevent biting. Resus. bag and back up trach at bedside. Vent and alarms checked and reset.
[2020-02-05 19:52] VITALS: BP 96/57
[2020-02-05] MEDS: THIAMINE HCL 100 MG TABLET GT SCH (20:54)
[2020-02-05] MEDS: CHOLECALCIFEROL 1,000 UNIT TABLET GT SCH (20:54)
[2020-02-05] MEDS: FOLIC ACID 1 MG TABLET GT SCH (20:54)
[2020-02-06] MEDS: IPRATROPIUM BROMIDE 0.5 MG/2.5 ML NEBU NEB SCH ×6 (02:36→22:30)
[2020-02-06] MEDS: ALBUTEROL SULFATE 2.5 MG/3 ML NEBU NEB SCH ×6 (02:36→22:30)
[2020-02-06] MEDS: BACLOFEN 10 MG TABLET GT SCH ×3 (05:53→21:08)
[2020-02-06] MEDS: OMEPRAZOLE 20 MG CAPSULE.DR GT SCH (05:53)
[2020-02-06] MEDS: METOCLOPRAMIDE HCL 5 MG TABLET GT SCH ×3 (05:53→21:09)
[2020-02-06] MEDS: BACLOFEN 20 MG TABLET GT SCH ×3 (05:53→21:08)
[2020-02-06] MEDS: MIDODRINE HCL 10 MG TABLET GT SCH ×3 (05:53→21:09)
[2020-02-06 07:35] VITALS: BP 98/50
[2020-02-06] MEDS: PHENYTOIN 100 MG/4 ML UDC GT SCH ×2 (08:54→21:08)
[2020-02-06] MEDS: DESMOPRESSIN 0.1 MG TABLET GT SCH (08:54)
[2020-02-06] MEDS: ACIDOPHILUS/BULGARICUS CHEW TAB GT SCH ×2 (08:55→21:08)
[2020-02-06] MEDS: levETIRAcetam 500 MG/5 ML LIQUID UDC GT SCH ×2 (08:56→21:08)
[2020-02-06] MEDS: FUROSEMIDE 20 MG/2 ML GT SCH (08:56)
[2020-02-06] MEDS: COD LIVER OIL/ZINC OXIDE OINT 113 GM TUBE TOP SCH ×2 (08:56→21:08)
[2020-02-06] MEDS: POTASSIUM CHLORIDE 40 MEQ/30 ML LIQUID UDC GT SCH (08:56)
[2020-02-06] MEDS: HYDROGEN PEROXIDE 3% 118 ML BOTTLE TP SCH ×2 (09:17→21:36)
[2020-02-06] MEDS: VITAL AF 1.2 1,000 ML LIQUID GT SCH (12:46)
--- NOTE | 2020-02-06 14:41 | NUR ---
PT. WAS SEEN BY EMMY Agustin AND WITH SHAYLEEO.
--- NOTE | 2020-02-06 18:40 | NUR ---
Received pt on HT-50 ventilator with the following settings of SIMV-12, Vt-500, PEEP+5, PS-10, FIO2-2LPM bleed in, trached with Susyley#6 DCT trach, which is in the place and secure. No SOB noted. Airway care done, pt responded to physical stimuli. In-line HHN tx with 2.5mg Albuterol+0.5mg Atrovent given, no adverse reaction noted. HME changed. Pt has a gauze between her lips, to prevent biting. Resus. bag and back up trach at bedside. Vent and alarms checked and reset.
[2020-02-06 20:51] VITALS: BP 100/60
[2020-02-06] MEDS: THIAMINE HCL 100 MG TABLET GT SCH (21:08)
[2020-02-06] MEDS: FOLIC ACID 1 MG TABLET GT SCH (21:08)
[2020-02-06] MEDS: CHOLECALCIFEROL 1,000 UNIT TABLET GT SCH (21:08)
[2020-02-07] MEDS: ALBUTEROL SULFATE 2.5 MG/3 ML NEBU NEB SCH ×6 (02:31→23:08)
[2020-02-07] MEDS: IPRATROPIUM BROMIDE 0.5 MG/2.5 ML NEBU NEB SCH ×6 (02:31→23:08)
[2020-02-07] MEDS: BACLOFEN 20 MG TABLET GT SCH ×3 (06:13→21:24)
[2020-02-07] MEDS: BACLOFEN 10 MG TABLET GT SCH ×3 (06:13→21:24)
[2020-02-07] MEDS: OMEPRAZOLE 20 MG CAPSULE.DR GT SCH (06:14)
[2020-02-07] MEDS: MIDODRINE HCL 10 MG TABLET GT SCH ×3 (06:14→21:24)
[2020-02-07] MEDS: METOCLOPRAMIDE HCL 5 MG TABLET GT SCH ×3 (06:14→21:24)
[2020-02-07 07:21] VITALS: BP 99/55
[2020-02-07] MEDS: DESMOPRESSIN 0.1 MG TABLET GT SCH (08:35)
[2020-02-07] MEDS: PHENYTOIN 100 MG/4 ML UDC GT SCH ×2 (08:36→21:21)
[2020-02-07] MEDS: ACIDOPHILUS/BULGARICUS CHEW TAB GT SCH ×2 (08:37→21:21)
[2020-02-07] MEDS: levETIRAcetam 500 MG/5 ML LIQUID UDC GT SCH ×2 (08:37→21:23)
[2020-02-07] MEDS: POTASSIUM CHLORIDE 40 MEQ/30 ML LIQUID UDC GT SCH (08:38)
[2020-02-07] MEDS: COD LIVER OIL/ZINC OXIDE OINT 113 GM TUBE TOP SCH ×2 (08:39→21:24)
[2020-02-07] MEDS: FUROSEMIDE 20 MG/2 ML GT SCH (08:39)
[2020-02-07] MEDS: HYDROGEN PEROXIDE 3% 118 ML BOTTLE TP SCH ×3 (08:39→20:58)
[2020-02-07] MEDS: ACETAMINOPHEN 650 MG/20.3 ML LIQUID UDC GT PRN (10:59)
[2020-02-07 20:01] VITALS: BP 101/55
[2020-02-07] MEDS: FOLIC ACID 1 MG TABLET GT SCH (21:21)
[2020-02-07] MEDS: THIAMINE HCL 100 MG TABLET GT SCH (21:23)
[2020-02-07] MEDS: CHOLECALCIFEROL 1,000 UNIT TABLET GT SCH (21:24)
[2020-02-08] MEDS: ALBUTEROL SULFATE 2.5 MG/3 ML NEBU NEB SCH ×6 (03:07→23:15)
[2020-02-08] MEDS: IPRATROPIUM BROMIDE 0.5 MG/2.5 ML NEBU NEB SCH ×6 (03:07→23:15)
[2020-02-08 05:24] VITALS: BP 94/60
[2020-02-08] MEDS: OMEPRAZOLE 20 MG CAPSULE.DR GT SCH (05:52)
[2020-02-08] MEDS: BACLOFEN 20 MG TABLET GT SCH ×3 (05:52→22:00)
[2020-02-08] MEDS: METOCLOPRAMIDE HCL 5 MG TABLET GT SCH ×3 (05:52→22:08)
[2020-02-08] MEDS: BACLOFEN 10 MG TABLET GT SCH ×3 (05:52→22:00)
[2020-02-08] MEDS: MIDODRINE HCL 10 MG TABLET GT SCH ×3 (05:52→22:00)
[2020-02-08 07:25] VITALS: BP 108/70
[2020-02-08] MEDS: HYDROGEN PEROXIDE 3% 118 ML BOTTLE TP SCH ×2 (08:24→21:13)
[2020-02-08] MEDS: ACIDOPHILUS/BULGARICUS CHEW TAB GT SCH ×2 (08:37→21:00)
[2020-02-08] MEDS: PHENYTOIN 100 MG/4 ML UDC GT SCH ×2 (08:37→21:00)
[2020-02-08] MEDS: DESMOPRESSIN 0.1 MG TABLET GT SCH (08:37)
[2020-02-08] MEDS: levETIRAcetam 500 MG/5 ML LIQUID UDC GT SCH ×2 (08:40→21:00)
[2020-02-08] MEDS: FUROSEMIDE 20 MG/2 ML GT SCH (08:41)
[2020-02-08] MEDS: POTASSIUM CHLORIDE 40 MEQ/30 ML LIQUID UDC GT SCH (08:42)
[2020-02-08] MEDS: COD LIVER OIL/ZINC OXIDE OINT 113 GM TUBE TOP SCH ×2 (08:44→21:00)
--- NOTE | 2020-02-08 19:45 | NUR ---
PT REMAIN ON CONTINUOUS VENT, TRACH CARE DONE. TRACH IN PLACED AND SECURED WITH TRACH TIE. BACK-UP TRACH AND AMBU BAG AT BEDSIDE . IN LINE TX GIVEN WITH UD ALBUTEROL+ UD ATROVENT ORDERED. SUCTION PRN. VENT CHECKED, ALARMS WORKING WELL AND AUDIBLE, NO DISTRESS NOTED AT THIS TIME. WILL CONTINUE TO MONITOR.
[2020-02-08 20:05] VITALS: BP 106/65
[2020-02-08] MEDS: THIAMINE HCL 100 MG TABLET GT SCH (21:00)
[2020-02-08] MEDS: FOLIC ACID 1 MG TABLET GT SCH (21:00)
[2020-02-08] MEDS: CHOLECALCIFEROL 1,000 UNIT TABLET GT SCH (21:00)
[2020-02-09] MEDS: ALBUTEROL SULFATE 2.5 MG/3 ML NEBU NEB SCH ×6 (03:17→23:41)
[2020-02-09] MEDS: IPRATROPIUM BROMIDE 0.5 MG/2.5 ML NEBU NEB SCH ×6 (03:17→23:41)
[2020-02-09] MEDS: MIDODRINE HCL 10 MG TABLET GT SCH ×3 (06:00→21:41)
[2020-02-09] MEDS: BACLOFEN 20 MG TABLET GT SCH ×3 (06:10→21:41)
[2020-02-09] MEDS: BACLOFEN 10 MG TABLET GT SCH ×3 (06:10→21:41)
[2020-02-09] MEDS: OMEPRAZOLE 20 MG CAPSULE.DR GT SCH (06:11)
[2020-02-09] MEDS: METOCLOPRAMIDE HCL 5 MG TABLET GT SCH ×3 (06:11→21:42)
[2020-02-09 07:45] VITALS: BP 107/69
[2020-02-09] MEDS: PHENYTOIN 100 MG/4 ML UDC GT SCH ×2 (08:24→21:38)
[2020-02-09] MEDS: ACIDOPHILUS/BULGARICUS CHEW TAB GT SCH ×2 (08:24→21:38)
[2020-02-09] MEDS: DESMOPRESSIN 0.1 MG TABLET GT SCH (08:24)
[2020-02-09] MEDS: levETIRAcetam 500 MG/5 ML LIQUID UDC GT SCH ×2 (08:25→21:40)
[2020-02-09] MEDS: POTASSIUM CHLORIDE 40 MEQ/30 ML LIQUID UDC GT SCH (08:25)
[2020-02-09] MEDS: NEOMY/BACITRA/POLYMYXIN B OINT UD PACKET TP SCH ×2 (08:25→16:32)
[2020-02-09] MEDS: FUROSEMIDE 20 MG/2 ML GT SCH (08:25)
[2020-02-09] MEDS: COD LIVER OIL/ZINC OXIDE OINT 113 GM TUBE TOP SCH ×2 (08:25→21:41)
[2020-02-09] MEDS: HYDROGEN PEROXIDE 3% 118 ML BOTTLE TP SCH ×2 (09:00→21:52)
[2020-02-09] MEDS: VITAL AF 1.2 1,000 ML LIQUID GT SCH (15:14)
[2020-02-09 21:08] VITALS: BP 120/62
[2020-02-09] MEDS: FOLIC ACID 1 MG TABLET GT SCH (21:40)
[2020-02-09] MEDS: CHOLECALCIFEROL 1,000 UNIT TABLET GT SCH (21:41)
[2020-02-09] MEDS: THIAMINE HCL 100 MG TABLET GT SCH (21:41)
[2020-02-10] MEDS: ALBUTEROL SULFATE 2.5 MG/3 ML NEBU NEB SCH ×6 (03:52→23:09)
[2020-02-10] MEDS: IPRATROPIUM BROMIDE 0.5 MG/2.5 ML NEBU NEB SCH ×6 (03:52→23:09)
[2020-02-10 05:31] VITALS: BP 122/74
[2020-02-10] MEDS: MIDODRINE HCL 10 MG TABLET GT SCH ×3 (06:00→21:07)
[2020-02-10] MEDS: BACLOFEN 20 MG TABLET GT SCH ×3 (06:24→21:07)
[2020-02-10] MEDS: BACLOFEN 10 MG TABLET GT SCH ×3 (06:24→21:07)
[2020-02-10] MEDS: OMEPRAZOLE 20 MG CAPSULE.DR GT SCH (06:25)
[2020-02-10] MEDS: METOCLOPRAMIDE HCL 5 MG TABLET GT SCH ×3 (06:25→21:07)
[2020-02-10 07:40] VITALS: BP 102/66
[2020-02-10] MEDS: PHENYTOIN 100 MG/4 ML UDC GT SCH ×2 (08:20→20:09)
[2020-02-10] MEDS: DESMOPRESSIN 0.1 MG TABLET GT SCH (08:20)
[2020-02-10] MEDS: levETIRAcetam 500 MG/5 ML LIQUID UDC GT SCH ×2 (08:20→20:09)
[2020-02-10] MEDS: ACIDOPHILUS/BULGARICUS CHEW TAB GT SCH ×2 (08:20→20:09)
[2020-02-10] MEDS: FUROSEMIDE 20 MG/2 ML GT SCH (08:21)
[2020-02-10] MEDS: POTASSIUM CHLORIDE 40 MEQ/30 ML LIQUID UDC GT SCH (08:22)
[2020-02-10] MEDS: NEOMY/BACITRA/POLYMYXIN B OINT UD PACKET TP SCH ×2 (08:22→17:11)
[2020-02-10] MEDS: COD LIVER OIL/ZINC OXIDE OINT 113 GM TUBE TOP SCH ×2 (08:22→20:10)
[2020-02-10] MEDS: HYDROGEN PEROXIDE 3% 118 ML BOTTLE TP SCH ×2 (09:26→21:19)
--- NOTE | 2020-02-10 19:06 | NUR ---
Zoom meeting provided to patient's mother.
--- NOTE | 2020-02-10 19:40 | NUR ---
PT REMAIN ON CONTINUOUS VENT, TRACH CARE DONE. VENT CIRCUIT CHANGED. TRACH IN PLACED AND SECURED WITH TRACH TIE. BACK-UP TRACH AND AMBU BAG AT BEDSIDE . IN LINE TX GIVEN WITH UD ALBUTEROL+ UD ATROVENT ORDERED. SUCTION PRN. VENT CHECKED, ALARMS WORKING WELL AND AUDIBLE, NO DISTRESS NOTED AT THIS TIME. WILL CONTINUE TO MONITOR.
[2020-02-10] MEDS: THIAMINE HCL 100 MG TABLET GT SCH (20:09)
[2020-02-10] MEDS: CHOLECALCIFEROL 1,000 UNIT TABLET GT SCH (20:09)
[2020-02-10] MEDS: FOLIC ACID 1 MG TABLET GT SCH (20:09)
[2020-02-10 20:15] VITALS: BP 98/60
[2020-02-11] MEDS: IPRATROPIUM BROMIDE 0.5 MG/2.5 ML NEBU NEB SCH ×6 (03:10→22:40)
[2020-02-11] MEDS: ALBUTEROL SULFATE 2.5 MG/3 ML NEBU NEB SCH ×6 (03:10→22:40)
[2020-02-11] MEDS: BACLOFEN 10 MG TABLET GT SCH ×3 (05:08→21:09)
[2020-02-11] MEDS: BACLOFEN 20 MG TABLET GT SCH ×3 (05:08→21:09)
[2020-02-11] MEDS: METOCLOPRAMIDE HCL 5 MG TABLET GT SCH ×3 (05:09→21:09)
[2020-02-11] MEDS: MIDODRINE HCL 10 MG TABLET GT SCH ×3 (05:09→21:09)
[2020-02-11] MEDS: OMEPRAZOLE 20 MG CAPSULE.DR GT SCH (05:09)
[2020-02-11 07:38] VITALS: BP 115/71
[2020-02-11] MEDS: FUROSEMIDE 20 MG/2 ML GT SCH (08:52)
[2020-02-11] MEDS: ACIDOPHILUS/BULGARICUS CHEW TAB GT SCH ×2 (08:52→20:09)
[2020-02-11] MEDS: PHENYTOIN 100 MG/4 ML UDC GT SCH ×2 (08:52→20:09)
[2020-02-11] MEDS: levETIRAcetam 500 MG/5 ML LIQUID UDC GT SCH ×2 (08:52→20:09)
[2020-02-11] MEDS: DESMOPRESSIN 0.1 MG TABLET GT SCH (08:52)
[2020-02-11] MEDS: COD LIVER OIL/ZINC OXIDE OINT 113 GM TUBE TOP SCH ×2 (08:52→20:09)
[2020-02-11] MEDS: POTASSIUM CHLORIDE 40 MEQ/30 ML LIQUID UDC GT SCH (08:52)
[2020-02-11] MEDS: NEOMY/BACITRA/POLYMYXIN B OINT UD PACKET TP SCH ×2 (08:53→17:23)
[2020-02-11] MEDS: HYDROGEN PEROXIDE 3% 118 ML BOTTLE TP SCH ×2 (09:40→21:25)
[2020-02-11] MEDS: VITAL AF 1.2 1,000 ML LIQUID GT SCH (15:37)
--- NOTE | 2020-02-11 19:05 | NUR ---
Received pt on HT-50 ventilator with the following settings of SIMV-12, Vt-500, PEEP+5, PS-10, FIO2-2LPM bleed in, trached with Shiley#6 DCT trach, which is in the place and secure. No s/s of respiratory distress noted. Airway care done, pt responded to physical stimuli. In-line HHN tx with 2.5mg Albuterol+0.5mg Atrovent given, no adverse reaction noted. HME, Sx Garza and HHN adaptor changed. Pt has a gauze between her lips, to prevent biting. Resus. bag and back up trach at bedside. Vent and alarms checked and reset.
[2020-02-11] MEDS: CHOLECALCIFEROL 1,000 UNIT TABLET GT SCH (20:09)
[2020-02-11] MEDS: FOLIC ACID 1 MG TABLET GT SCH (20:09)
[2020-02-11] MEDS: THIAMINE HCL 100 MG TABLET GT SCH (20:09)
[2020-02-11 20:17] VITALS: BP 100/61
[2020-02-12] MEDS: ALBUTEROL SULFATE 2.5 MG/3 ML NEBU NEB SCH ×6 (02:40→22:30)
[2020-02-12] MEDS: IPRATROPIUM BROMIDE 0.5 MG/2.5 ML NEBU NEB SCH ×6 (02:40→22:30)
[2020-02-12] MEDS: BACLOFEN 10 MG TABLET GT SCH ×3 (05:22→21:12)
[2020-02-12] MEDS: METOCLOPRAMIDE HCL 5 MG TABLET GT SCH ×3 (05:22→21:13)
[2020-02-12] MEDS: MIDODRINE HCL 10 MG TABLET GT SCH ×3 (05:22→21:13)
[2020-02-12] MEDS: OMEPRAZOLE 20 MG CAPSULE.DR GT SCH (05:22)
[2020-02-12] MEDS: BACLOFEN 20 MG TABLET GT SCH ×3 (05:22→21:12)
[2020-02-12 07:43] VITALS: BP 97/64
[2020-02-12] MEDS: levETIRAcetam 500 MG/5 ML LIQUID UDC GT SCH ×2 (08:24→20:10)
[2020-02-12] MEDS: FUROSEMIDE 20 MG/2 ML GT SCH (08:24)
[2020-02-12] MEDS: NEOMY/BACITRA/POLYMYXIN B OINT UD PACKET TP SCH ×2 (08:24→17:00)
[2020-02-12] MEDS: DESMOPRESSIN 0.1 MG TABLET GT SCH (08:24)
[2020-02-12] MEDS: PHENYTOIN 100 MG/4 ML UDC GT SCH ×2 (08:24→20:10)
[2020-02-12] MEDS: COD LIVER OIL/ZINC OXIDE OINT 113 GM TUBE TOP SCH ×2 (08:24→20:10)
[2020-02-12] MEDS: ACIDOPHILUS/BULGARICUS CHEW TAB GT SCH ×2 (08:24→20:10)
[2020-02-12] MEDS: POTASSIUM CHLORIDE 40 MEQ/30 ML LIQUID UDC GT SCH (08:24)
[2020-02-12] MEDS: HYDROGEN PEROXIDE 3% 118 ML BOTTLE TP SCH ×2 (08:25→21:22)
--- NOTE | 2020-02-12 18:42 | NUR ---
Received pt on HT-50 ventilator with the following settings of SIMV-12, Vt-500, PEEP+5, PS-10, FIO2-2LPM bleed in, trached with Susyley#6 DCT trach, which is in the place and secure. No s/s of respiratory distress noted. Airway care done, pt responded to physical stimuli. In-line HHN tx with 2.5mg Albuterol+0.5mg Atrovent given, no adverse reaction noted. HME changed. Pt has a gauze between her lips, to prevent biting. Resus. bag and back up trach at bedside. Vent and alarms checked and reset.
[2020-02-12] MEDS: CHOLECALCIFEROL 1,000 UNIT TABLET GT SCH (20:10)
[2020-02-12] MEDS: THIAMINE HCL 100 MG TABLET GT SCH (20:10)
[2020-02-12] MEDS: FOLIC ACID 1 MG TABLET GT SCH (20:10)
[2020-02-12 20:15] VITALS: BP 106/66
[2020-02-13] MEDS: ALBUTEROL SULFATE 2.5 MG/3 ML NEBU NEB SCH ×6 (02:30→23:21)
[2020-02-13] MEDS: IPRATROPIUM BROMIDE 0.5 MG/2.5 ML NEBU NEB SCH ×6 (02:30→23:21)
[2020-02-13] MEDS: BACLOFEN 10 MG TABLET GT SCH ×3 (05:16→21:08)
[2020-02-13] MEDS: BACLOFEN 20 MG TABLET GT SCH ×3 (05:16→21:08)
[2020-02-13] MEDS: METOCLOPRAMIDE HCL 5 MG TABLET GT SCH ×3 (05:17→21:09)
[2020-02-13] MEDS: OMEPRAZOLE 20 MG CAPSULE.DR GT SCH (05:17)
[2020-02-13] MEDS: MIDODRINE HCL 10 MG TABLET GT SCH ×3 (05:17→21:09)
[2020-02-13 07:26] VITALS: BP 121/70
[2020-02-13] MEDS: HYDROGEN PEROXIDE 3% 118 ML BOTTLE TP SCH ×2 (08:20→21:51)
[2020-02-13] MEDS: ACIDOPHILUS/BULGARICUS CHEW TAB GT SCH ×2 (08:28→20:29)
[2020-02-13] MEDS: levETIRAcetam 500 MG/5 ML LIQUID UDC GT SCH ×2 (08:28→20:30)
[2020-02-13] MEDS: POTASSIUM CHLORIDE 40 MEQ/30 ML LIQUID UDC GT SCH (08:28)
[2020-02-13] MEDS: DESMOPRESSIN 0.1 MG TABLET GT SCH (08:28)
[2020-02-13] MEDS: PHENYTOIN 100 MG/4 ML UDC GT SCH ×2 (08:28→20:29)
[2020-02-13] MEDS: FUROSEMIDE 20 MG/2 ML GT SCH (08:28)
[2020-02-13] MEDS: NEOMY/BACITRA/POLYMYXIN B OINT UD PACKET TP SCH ×2 (08:29→17:57)
[2020-02-13] MEDS: COD LIVER OIL/ZINC OXIDE OINT 113 GM TUBE TOP SCH ×2 (08:29→20:31)
[2020-02-13 20:05] VITALS: BP 113/65
[2020-02-13] MEDS: FOLIC ACID 1 MG TABLET GT SCH (20:29)
[2020-02-13] MEDS: THIAMINE HCL 100 MG TABLET GT SCH (20:30)
[2020-02-13] MEDS: CHOLECALCIFEROL 1,000 UNIT TABLET GT SCH (20:30)
[2020-02-14] MEDS: IPRATROPIUM BROMIDE 0.5 MG/2.5 ML NEBU NEB SCH ×6 (02:50→22:27)
[2020-02-14] MEDS: ALBUTEROL SULFATE 2.5 MG/3 ML NEBU NEB SCH ×6 (02:50→22:27)
[2020-02-14] MEDS: BACLOFEN 20 MG TABLET GT SCH ×3 (05:16→22:06)
[2020-02-14] MEDS: MIDODRINE HCL 10 MG TABLET GT SCH ×3 (05:16→22:06)
[2020-02-14] MEDS: BACLOFEN 10 MG TABLET GT SCH ×3 (05:16→22:06)
[2020-02-14] MEDS: METOCLOPRAMIDE HCL 5 MG TABLET GT SCH ×3 (05:17→22:06)
[2020-02-14] MEDS: OMEPRAZOLE 20 MG CAPSULE.DR GT SCH (05:17)
[2020-02-14 07:39] VITALS: BP 110/66
[2020-02-14] MEDS: POTASSIUM CHLORIDE 40 MEQ/30 ML LIQUID UDC GT SCH (08:57)
[2020-02-14] MEDS: levETIRAcetam 500 MG/5 ML LIQUID UDC GT SCH ×2 (08:57→20:24)
[2020-02-14] MEDS: COD LIVER OIL/ZINC OXIDE OINT 113 GM TUBE TOP SCH ×2 (08:57→20:25)
[2020-02-14] MEDS: ACIDOPHILUS/BULGARICUS CHEW TAB GT SCH ×2 (08:57→20:24)
[2020-02-14] MEDS: FUROSEMIDE 20 MG/2 ML GT SCH (08:57)
[2020-02-14] MEDS: PHENYTOIN 100 MG/4 ML UDC GT SCH ×2 (08:57→20:38)
[2020-02-14] MEDS: DESMOPRESSIN 0.1 MG TABLET GT SCH (08:57)
[2020-02-14] MEDS: NEOMY/BACITRA/POLYMYXIN B OINT UD PACKET TP SCH ×2 (08:57→17:16)
[2020-02-14] MEDS: HYDROGEN PEROXIDE 3% 118 ML BOTTLE TP SCH ×2 (09:12→19:16)
[2020-02-14] MEDS: BISACODYL 10 MG SUPP.RECT RC PRN (17:34)
[2020-02-14 20:02] VITALS: BP 96/57
[2020-02-14] MEDS: FOLIC ACID 1 MG TABLET GT SCH (20:24)
[2020-02-14] MEDS: CHOLECALCIFEROL 1,000 UNIT TABLET GT SCH (20:25)
[2020-02-14] MEDS: THIAMINE HCL 100 MG TABLET GT SCH (20:25)
[2020-02-15] MEDS: VITAL AF 1.2 1,000 ML LIQUID GT SCH (00:45)
[2020-02-15] MEDS: IPRATROPIUM BROMIDE 0.5 MG/2.5 ML NEBU NEB SCH ×6 (02:32→22:30)
[2020-02-15] MEDS: ALBUTEROL SULFATE 2.5 MG/3 ML NEBU NEB SCH ×6 (02:32→22:30)
[2020-02-15] MEDS: MIDODRINE HCL 10 MG TABLET GT SCH ×3 (05:32→22:19)
[2020-02-15] MEDS: METOCLOPRAMIDE HCL 5 MG TABLET GT SCH ×3 (05:32→22:19)
[2020-02-15] MEDS: BACLOFEN 10 MG TABLET GT SCH ×3 (05:32→22:19)
[2020-02-15] MEDS: BACLOFEN 20 MG TABLET GT SCH ×3 (05:32→22:19)
[2020-02-15] MEDS: OMEPRAZOLE 20 MG CAPSULE.DR GT SCH (05:32)
[2020-02-15 07:33] VITALS: BP 113/69
[2020-02-15] MEDS: HYDROGEN PEROXIDE 3% 118 ML BOTTLE TP SCH ×2 (07:40→21:29)
[2020-02-15] MEDS: DESMOPRESSIN 0.1 MG TABLET GT SCH (08:38)
[2020-02-15] MEDS: PHENYTOIN 100 MG/4 ML UDC GT SCH ×2 (08:38→20:40)
[2020-02-15] MEDS: ACIDOPHILUS/BULGARICUS CHEW TAB GT SCH ×2 (08:39→20:44)
[2020-02-15] MEDS: levETIRAcetam 500 MG/5 ML LIQUID UDC GT SCH ×2 (08:40→20:47)
[2020-02-15] MEDS: FUROSEMIDE 20 MG/2 ML GT SCH (08:41)
[2020-02-15] MEDS: POTASSIUM CHLORIDE 40 MEQ/30 ML LIQUID UDC GT SCH (08:43)
[2020-02-15] MEDS: COD LIVER OIL/ZINC OXIDE OINT 113 GM TUBE TOP SCH ×2 (08:44→20:49)
[2020-02-15 19:57] VITALS: BP 103/61
[2020-02-15] MEDS: FOLIC ACID 1 MG TABLET GT SCH (20:45)
[2020-02-15] MEDS: THIAMINE HCL 100 MG TABLET GT SCH (20:48)
[2020-02-15] MEDS: CHOLECALCIFEROL 1,000 UNIT TABLET GT SCH (20:49)
[2020-02-16] MEDS: ALBUTEROL SULFATE 2.5 MG/3 ML NEBU NEB SCH ×6 (03:05→22:30)
[2020-02-16] MEDS: IPRATROPIUM BROMIDE 0.5 MG/2.5 ML NEBU NEB SCH ×6 (03:05→22:30)
[2020-02-16] MEDS: VITAL AF 1.2 1,000 ML LIQUID GT SCH (04:00)
[2020-02-16] MEDS: OMEPRAZOLE 20 MG CAPSULE.DR GT SCH (06:06)
[2020-02-16] MEDS: BACLOFEN 20 MG TABLET GT SCH ×3 (06:06→22:18)
[2020-02-16] MEDS: BACLOFEN 10 MG TABLET GT SCH ×3 (06:06→22:18)
[2020-02-16] MEDS: MIDODRINE HCL 10 MG TABLET GT SCH ×3 (06:06→22:18)
[2020-02-16] MEDS: METOCLOPRAMIDE HCL 5 MG TABLET GT SCH ×3 (06:06→22:18)
[2020-02-16 07:42] VITALS: BP 111/69
[2020-02-16] MEDS: PHENYTOIN 100 MG/4 ML UDC GT SCH ×2 (09:03→20:25)
[2020-02-16] MEDS: DESMOPRESSIN 0.1 MG TABLET GT SCH (09:03)
[2020-02-16] MEDS: ACIDOPHILUS/BULGARICUS CHEW TAB GT SCH ×2 (09:04→20:29)
[2020-02-16] MEDS: levETIRAcetam 500 MG/5 ML LIQUID UDC GT SCH ×2 (09:05→20:33)
[2020-02-16] MEDS: POTASSIUM CHLORIDE 40 MEQ/30 ML LIQUID UDC GT SCH (09:06)
[2020-02-16] MEDS: FUROSEMIDE 20 MG/2 ML GT SCH (09:06)
[2020-02-16] MEDS: COD LIVER OIL/ZINC OXIDE OINT 113 GM TUBE TOP SCH ×2 (09:07→20:34)
[2020-02-16] MEDS: HYDROGEN PEROXIDE 3% 118 ML BOTTLE TP SCH ×2 (09:35→21:40)
--- NOTE | 2020-02-16 17:00 | NUR ---
SEEN BY DR. WORTHINGTON AND WITH NNO.
[2020-02-16] MEDS: FOLIC ACID 1 MG TABLET GT SCH (20:29)
[2020-02-16] MEDS: CHOLECALCIFEROL 1,000 UNIT TABLET GT SCH (20:33)
[2020-02-16] MEDS: THIAMINE HCL 100 MG TABLET GT SCH (20:33)
[2020-02-16 22:20] VITALS: BP 100/53
[2020-02-17] MEDS: IPRATROPIUM BROMIDE 0.5 MG/2.5 ML NEBU NEB SCH ×6 (02:30→22:30)
[2020-02-17] MEDS: ALBUTEROL SULFATE 2.5 MG/3 ML NEBU NEB SCH ×6 (02:30→22:30)
[2020-02-17] MEDS: VITAL AF 1.2 1,000 ML LIQUID GT SCH (04:32)
[2020-02-17] MEDS: BACLOFEN 10 MG TABLET GT SCH ×3 (05:50→22:39)
[2020-02-17] MEDS: BACLOFEN 20 MG TABLET GT SCH ×3 (05:50→22:39)
[2020-02-17] MEDS: METOCLOPRAMIDE HCL 5 MG TABLET GT SCH ×3 (05:51→22:40)
[2020-02-17] MEDS: MIDODRINE HCL 10 MG TABLET GT SCH ×3 (05:51→22:40)
[2020-02-17] MEDS: OMEPRAZOLE 20 MG CAPSULE.DR GT SCH (05:51)
[2020-02-17 07:45] VITALS: BP 112/63
[2020-02-17] MEDS: PHENYTOIN 100 MG/4 ML UDC GT SCH ×2 (08:28→20:39)
[2020-02-17] MEDS: DESMOPRESSIN 0.1 MG TABLET GT SCH (08:28)
[2020-02-17] MEDS: levETIRAcetam 500 MG/5 ML LIQUID UDC GT SCH ×2 (08:29→20:39)
[2020-02-17] MEDS: ACIDOPHILUS/BULGARICUS CHEW TAB GT SCH ×2 (08:29→20:39)
[2020-02-17] MEDS: FUROSEMIDE 20 MG/2 ML GT SCH (08:30)
[2020-02-17] MEDS: POTASSIUM CHLORIDE 40 MEQ/30 ML LIQUID UDC GT SCH (08:32)
[2020-02-17] MEDS: COD LIVER OIL/ZINC OXIDE OINT 113 GM TUBE TOP SCH ×2 (08:33→20:39)
[2020-02-17] MEDS: HYDROGEN PEROXIDE 3% 118 ML BOTTLE TP SCH ×2 (09:04→21:16)
--- NOTE | 2020-02-17 17:26 | NUR ---
zoom meeting provided to patient's mother.
[2020-02-17] MEDS: THIAMINE HCL 100 MG TABLET GT SCH (20:39)
[2020-02-17] MEDS: CHOLECALCIFEROL 1,000 UNIT TABLET GT SCH (20:39)
[2020-02-17] MEDS: FOLIC ACID 1 MG TABLET GT SCH (20:39)
[2020-02-17 23:05] VITALS: BP 98/66
[2020-02-18] MEDS: IPRATROPIUM BROMIDE 0.5 MG/2.5 ML NEBU NEB SCH ×7 (02:37→23:20)
[2020-02-18] MEDS: ALBUTEROL SULFATE 2.5 MG/3 ML NEBU NEB SCH ×7 (02:37→23:20)
[2020-02-18] MEDS: BACLOFEN 10 MG TABLET GT SCH ×3 (05:32→22:58)
[2020-02-18] MEDS: BACLOFEN 20 MG TABLET GT SCH ×3 (05:32→22:58)
[2020-02-18] MEDS: OMEPRAZOLE 20 MG CAPSULE.DR GT SCH (05:33)
[2020-02-18] MEDS: MIDODRINE HCL 10 MG TABLET GT SCH ×3 (05:33→22:58)
[2020-02-18] MEDS: METOCLOPRAMIDE HCL 5 MG TABLET GT SCH ×3 (05:33→22:58)
[2020-02-18] MEDS: HYDROGEN PEROXIDE 3% 118 ML BOTTLE TP SCH ×3 (07:39→21:02)
[2020-02-18 07:41] VITALS: BP 100/60
[2020-02-18] MEDS: ACIDOPHILUS/BULGARICUS CHEW TAB GT SCH ×2 (08:13→20:06)
[2020-02-18] MEDS: levETIRAcetam 500 MG/5 ML LIQUID UDC GT SCH ×2 (08:13→20:06)
[2020-02-18] MEDS: PHENYTOIN 100 MG/4 ML UDC GT SCH ×2 (08:13→20:06)
[2020-02-18] MEDS: DESMOPRESSIN 0.1 MG TABLET GT SCH (08:13)
[2020-02-18] MEDS: FUROSEMIDE 20 MG/2 ML GT SCH (08:14)
[2020-02-18] MEDS: POTASSIUM CHLORIDE 40 MEQ/30 ML LIQUID UDC GT SCH (08:14)
[2020-02-18] MEDS: COD LIVER OIL/ZINC OXIDE OINT 113 GM TUBE TOP SCH ×2 (08:14→20:06)
[2020-02-18] MEDS: VITAL AF 1.2 1,000 ML LIQUID GT SCH (08:15)
--- NOTE | 2020-02-18 19:45 | NUR ---
PT REMAIN ON CONTINUOUS VENT, TRACH CARE DONE. BRENNAN CHANGED. TRACH IN PLACED AND SECURED WITH TRACH TIE. BACK-UP TRACH AND AMBU BAG AT BEDSIDE . IN LINE TX GIVEN WITH UD ALBUTEROL+ UD ATROVENT ORDERED. SUCTION PRN. VENT CHECKED, ALARMS WORKING WELL AND AUDIBLE, NO DISTRESS NOTED AT THIS TIME. WILL CONTINUE TO MONITOR.
[2020-02-18] MEDS: FOLIC ACID 1 MG TABLET GT SCH (20:06)
[2020-02-18] MEDS: THIAMINE HCL 100 MG TABLET GT SCH (20:06)
[2020-02-18] MEDS: CHOLECALCIFEROL 1,000 UNIT TABLET GT SCH (20:06)
[2020-02-18 22:40] VITALS: BP 96/54
[2020-02-19] MEDS: ALBUTEROL SULFATE 2.5 MG/3 ML NEBU NEB SCH ×6 (03:17→23:07)
[2020-02-19] MEDS: IPRATROPIUM BROMIDE 0.5 MG/2.5 ML NEBU NEB SCH ×6 (03:17→23:07)
[2020-02-19] MEDS: BACLOFEN 20 MG TABLET GT SCH ×3 (05:24→22:41)
[2020-02-19] MEDS: BACLOFEN 10 MG TABLET GT SCH ×3 (05:24→22:41)
[2020-02-19] MEDS: OMEPRAZOLE 20 MG CAPSULE.DR GT SCH (05:24)
[2020-02-19] MEDS: METOCLOPRAMIDE HCL 5 MG TABLET GT SCH ×3 (05:24→22:41)
[2020-02-19] MEDS: MIDODRINE HCL 10 MG TABLET GT SCH ×3 (05:24→22:41)
[2020-02-19] MEDS: VITAL AF 1.2 1,000 ML LIQUID GT SCH (05:24)
[2020-02-19] MEDS: HYDROGEN PEROXIDE 3% 118 ML BOTTLE TP SCH ×2 (07:45→19:24)
[2020-02-19 07:49] VITALS: BP 106/66
[2020-02-19] MEDS: DESMOPRESSIN 0.1 MG TABLET GT SCH (08:50)
[2020-02-19] MEDS: PHENYTOIN 100 MG/4 ML UDC GT SCH ×2 (08:50→20:51)
[2020-02-19] MEDS: levETIRAcetam 500 MG/5 ML LIQUID UDC GT SCH ×2 (08:51→20:52)
[2020-02-19] MEDS: ACIDOPHILUS/BULGARICUS CHEW TAB GT SCH ×2 (08:51→20:51)
[2020-02-19] MEDS: POTASSIUM CHLORIDE 40 MEQ/30 ML LIQUID UDC GT SCH (08:52)
[2020-02-19] MEDS: FUROSEMIDE 20 MG/2 ML GT SCH (08:52)
[2020-02-19] MEDS: COD LIVER OIL/ZINC OXIDE OINT 113 GM TUBE TOP SCH ×2 (08:52→20:53)
--- NOTE | 2020-02-19 18:00 | NUR ---
ELVA WAS NOTIFIED RE: COVID 19 TESTING TODAY WITH A MESSAGE SHE REQUESTED BEFORE.
[2020-02-19] MEDS: FOLIC ACID 1 MG TABLET GT SCH (20:51)
[2020-02-19] MEDS: THIAMINE HCL 100 MG TABLET GT SCH (20:52)
[2020-02-19] MEDS: CHOLECALCIFEROL 1,000 UNIT TABLET GT SCH (20:53)
[2020-02-19 22:56] VITALS: BP 94/56
[2020-02-20] MEDS: ALBUTEROL SULFATE 2.5 MG/3 ML NEBU NEB SCH ×6 (03:11→23:58)
[2020-02-20] MEDS: IPRATROPIUM BROMIDE 0.5 MG/2.5 ML NEBU NEB SCH ×6 (03:11→23:58)
[2020-02-20] MEDS: BACLOFEN 10 MG TABLET GT SCH ×3 (06:13→21:01)
[2020-02-20] MEDS: BACLOFEN 20 MG TABLET GT SCH ×3 (06:13→21:01)
[2020-02-20] MEDS: MIDODRINE HCL 10 MG TABLET GT SCH ×3 (06:14→21:01)
[2020-02-20] MEDS: METOCLOPRAMIDE HCL 5 MG TABLET GT SCH ×3 (06:14→21:01)
[2020-02-20] MEDS: OMEPRAZOLE 20 MG CAPSULE.DR GT SCH (06:14)
[2020-02-20] MEDS: VITAL AF 1.2 1,000 ML LIQUID GT SCH (07:06)
[2020-02-20 07:38] VITALS: BP 103/56
[2020-02-20] MEDS: ACIDOPHILUS/BULGARICUS CHEW TAB GT SCH ×2 (08:19→20:57)
[2020-02-20] MEDS: DESMOPRESSIN 0.1 MG TABLET GT SCH (08:19)
[2020-02-20] MEDS: levETIRAcetam 500 MG/5 ML LIQUID UDC GT SCH ×2 (08:19→20:59)
[2020-02-20] MEDS: PHENYTOIN 100 MG/4 ML UDC GT SCH ×2 (08:19→20:56)
[2020-02-20] MEDS: FUROSEMIDE 20 MG/2 ML GT SCH (08:20)
[2020-02-20] MEDS: COD LIVER OIL/ZINC OXIDE OINT 113 GM TUBE TOP SCH ×2 (08:21→21:01)
[2020-02-20] MEDS: POTASSIUM CHLORIDE 40 MEQ/30 ML LIQUID UDC GT SCH (08:21)
[2020-02-20] MEDS: HYDROGEN PEROXIDE 3% 118 ML BOTTLE TP SCH ×2 (09:18→21:30)
--- NOTE | 2020-02-20 11:44 | NUR ---
SEEN BY EMMY Agustin AND WITH NNO.
[2020-02-20 20:13] VITALS: BP_SYST 101; BP_SYST 95; BP_DIAS 47; BP_DIAS 65
[2020-02-20] MEDS: FOLIC ACID 1 MG TABLET GT SCH (20:57)
[2020-02-20] MEDS: THIAMINE HCL 100 MG TABLET GT SCH (20:59)
[2020-02-20] MEDS: CHOLECALCIFEROL 1,000 UNIT TABLET GT SCH (20:59)
[2020-02-21] MEDS: IPRATROPIUM BROMIDE 0.5 MG/2.5 ML NEBU NEB SCH ×6 (03:32→22:30)
[2020-02-21] MEDS: ALBUTEROL SULFATE 2.5 MG/3 ML NEBU NEB SCH ×6 (03:32→22:30)
[2020-02-21] MEDS: BACLOFEN 20 MG TABLET GT SCH ×3 (06:13→22:05)
[2020-02-21] MEDS: BACLOFEN 10 MG TABLET GT SCH ×3 (06:13→22:05)
[2020-02-21] MEDS: METOCLOPRAMIDE HCL 5 MG TABLET GT SCH ×3 (06:14→22:06)
[2020-02-21] MEDS: OMEPRAZOLE 20 MG CAPSULE.DR GT SCH (06:14)
[2020-02-21] MEDS: MIDODRINE HCL 10 MG TABLET GT SCH ×3 (06:14→22:05)
[2020-02-21 06:36] LABS: BASOPHILS # (AUTO) 0.1 K/uL (0.0-8.0); BASOPHILS % (AUTO) 1.1 % (0.0-2.0); EOSINOPHILS # (AUTO) 0.4 K/uL (0.0-0.7); HEMATOCRIT 29.5 % (31.2-41.9); HEMOGLOBIN 10.2 g/dL (10.9-14.3); LYMPHOCYTES % (AUTO) 32.9 % (20.5-51.5); MEAN CORPUSCULAR HEMOGLOBIN 31.7 uug (24.7-32.8); MEAN CORPUSCULAR HGB CONC 35 g/dL (32.3-35.6); MEAN CORPUSCULAR VOLUME 91.7 fL (75.5-95.3); MONOCYTES # (AUTO) 0.5 K/uL (2.0-10.0); MONOCYTES % (AUTO) 7.5 % (0.0-11.0); NEUTROPHILS # (AUTO) 3.1 K/uL (1.8-8.9); NEUTROPHILS % (AUTO) 51.5 % (38.5-71.5); PLATELET COUNT (AUTO) 336 K/uL (179-408); RED BLOOD CELL COUNT(AUTO) 3.22 MIL/uL (3.63-4.92)
[2020-02-21] MEDS: VITAL AF 1.2 1,000 ML LIQUID GT SCH (06:56)
[2020-02-21 07:04] LABS: CREATININE 0.6 mg/dL (0.6-1.3); MAGNESIUM 1.9 mg/dL (1.8-2.4); POTASSIUM 3.6 mmol/L (3.5-5.1)
[2020-02-21] MEDS: HYDROGEN PEROXIDE 3% 118 ML BOTTLE TP SCH ×2 (07:23→21:43)
[2020-02-21 07:46] VITALS: BP 107/64
[2020-02-21] MEDS: DESMOPRESSIN 0.1 MG TABLET GT SCH (09:37)
[2020-02-21] MEDS: PHENYTOIN 100 MG/4 ML UDC GT SCH ×2 (09:38→20:31)
[2020-02-21] MEDS: ACIDOPHILUS/BULGARICUS CHEW TAB GT SCH ×2 (09:38→20:29)
[2020-02-21] MEDS: FUROSEMIDE 20 MG/2 ML GT SCH (09:39)
[2020-02-21] MEDS: levETIRAcetam 500 MG/5 ML LIQUID UDC GT SCH ×2 (09:39→20:29)
[2020-02-21] MEDS: POTASSIUM CHLORIDE 40 MEQ/30 ML LIQUID UDC GT SCH (09:40)
[2020-02-21] MEDS: COD LIVER OIL/ZINC OXIDE OINT 113 GM TUBE TOP SCH ×2 (09:40→20:32)
[2020-02-21] MEDS: ACETAMINOPHEN 650 MG/20.3 ML LIQUID UDC GT PRN (10:54)
--- NOTE | 2020-02-21 10:55 | NUR ---
TYLENOL GIVEN D/T FACIAL GRIMACING BITING LOWER LIP.
--- NOTE | 2020-02-21 18:44 | NUR ---
Pt received on HT-50 ventilator with the following settings of SIMV-12, Vt-500, PEEP+5, PS-10, FIO2-2LPM bleed in, trached with Shiley#6 DCT trach, which is in the place and secure. No SOB noted. Airway care done, pt responded to physical stimuli. In-line HHN tx with 2.5mg Albuterol+0.5mg Atrovent given, no adverse reaction noted. HME changed. Resus. bag and back up trach at bedside. Vent and alarms checked and reset.
--- NOTE | 2020-02-21 18:55 | NUR ---
Mahamed was notified regarding Covid 19 test results negative.
[2020-02-21 20:25] VITALS: BP 102/62
[2020-02-21] MEDS: THIAMINE HCL 100 MG TABLET GT SCH (20:29)
[2020-02-21] MEDS: FOLIC ACID 1 MG TABLET GT SCH (20:29)
[2020-02-21] MEDS: CHOLECALCIFEROL 1,000 UNIT TABLET GT SCH (20:32)
[2020-02-22] MEDS: ALBUTEROL SULFATE 2.5 MG/3 ML NEBU NEB SCH ×6 (02:30→22:30)
[2020-02-22] MEDS: IPRATROPIUM BROMIDE 0.5 MG/2.5 ML NEBU NEB SCH ×6 (02:30→22:30)
[2020-02-22] MEDS: VITAL AF 1.2 1,000 ML LIQUID GT SCH (04:34)
[2020-02-22] MEDS: BACLOFEN 10 MG TABLET GT SCH ×3 (05:34→21:00)
[2020-02-22] MEDS: MIDODRINE HCL 10 MG TABLET GT SCH ×3 (05:34→21:01)
[2020-02-22] MEDS: OMEPRAZOLE 20 MG CAPSULE.DR GT SCH (05:34)
[2020-02-22] MEDS: METOCLOPRAMIDE HCL 5 MG TABLET GT SCH ×3 (05:34→21:02)
[2020-02-22] MEDS: BACLOFEN 20 MG TABLET GT SCH ×3 (05:34→21:00)
[2020-02-22 07:50] VITALS: BP 94/63
[2020-02-22] MEDS: HYDROGEN PEROXIDE 3% 118 ML BOTTLE TP SCH ×2 (08:07→20:51)
[2020-02-22] MEDS: FUROSEMIDE 20 MG/2 ML GT SCH (09:00)
[2020-02-22] MEDS: ACIDOPHILUS/BULGARICUS CHEW TAB GT SCH ×2 (09:27→20:49)
[2020-02-22] MEDS: COD LIVER OIL/ZINC OXIDE OINT 113 GM TUBE TOP SCH ×2 (09:27→20:51)
[2020-02-22] MEDS: POTASSIUM CHLORIDE 40 MEQ/30 ML LIQUID UDC GT SCH (09:30)
[2020-02-22] MEDS: levETIRAcetam 500 MG/5 ML LIQUID UDC GT SCH ×2 (09:33→20:50)
[2020-02-22] MEDS: PHENYTOIN 100 MG/4 ML UDC GT SCH ×2 (09:34→20:49)
[2020-02-22] MEDS: DESMOPRESSIN 0.1 MG TABLET GT SCH (09:36)
[2020-02-22] MEDS: ACETAMINOPHEN 650 MG/20.3 ML LIQUID UDC GT PRN (14:20)
[2020-02-22] MEDS: BISACODYL 10 MG SUPP.RECT RC PRN (18:39)
[2020-02-22 20:00] VITALS: BP 110/73
[2020-02-22] MEDS: FOLIC ACID 1 MG TABLET GT SCH (20:49)
[2020-02-22] MEDS: CHOLECALCIFEROL 1,000 UNIT TABLET GT SCH (20:51)
[2020-02-22] MEDS: THIAMINE HCL 100 MG TABLET GT SCH (20:51)
[2020-02-23] MEDS: VITAL AF 1.2 1,000 ML LIQUID GT SCH (02:40)
[2020-02-23] MEDS: IPRATROPIUM BROMIDE 0.5 MG/2.5 ML NEBU NEB SCH ×6 (02:41→22:30)
[2020-02-23] MEDS: ALBUTEROL SULFATE 2.5 MG/3 ML NEBU NEB SCH ×6 (02:41→22:30)
[2020-02-23] MEDS: BACLOFEN 10 MG TABLET GT SCH ×3 (05:40→21:56)
[2020-02-23] MEDS: OMEPRAZOLE 20 MG CAPSULE.DR GT SCH (05:41)
[2020-02-23] MEDS: BACLOFEN 20 MG TABLET GT SCH ×3 (05:41→21:56)
[2020-02-23] MEDS: METOCLOPRAMIDE HCL 5 MG TABLET GT SCH ×3 (05:41→21:57)
[2020-02-23] MEDS: MIDODRINE HCL 10 MG TABLET GT SCH ×3 (05:41→21:56)
[2020-02-23] MEDS: HYDROGEN PEROXIDE 3% 118 ML BOTTLE TP SCH ×2 (07:18→21:35)
[2020-02-23 07:55] VITALS: BP 106/70
[2020-02-23] MEDS: levETIRAcetam 500 MG/5 ML LIQUID UDC GT SCH ×2 (08:49→21:55)
[2020-02-23] MEDS: DESMOPRESSIN 0.1 MG TABLET GT SCH (08:50)
[2020-02-23] MEDS: PHENYTOIN 100 MG/4 ML UDC GT SCH ×2 (08:51→21:55)
[2020-02-23] MEDS: ACIDOPHILUS/BULGARICUS CHEW TAB GT SCH ×2 (08:51→21:55)
[2020-02-23] MEDS: POTASSIUM CHLORIDE 40 MEQ/30 ML LIQUID UDC GT SCH (08:51)
[2020-02-23] MEDS: COD LIVER OIL/ZINC OXIDE OINT 113 GM TUBE TOP SCH ×2 (08:52→21:56)
[2020-02-23] MEDS: FUROSEMIDE 20 MG/2 ML GT SCH (09:06)
[2020-02-23 21:07] VITALS: BP 124/76
[2020-02-23] MEDS: FOLIC ACID 1 MG TABLET GT SCH (21:55)
[2020-02-23] MEDS: CHOLECALCIFEROL 1,000 UNIT TABLET GT SCH (21:56)
[2020-02-23] MEDS: THIAMINE HCL 100 MG TABLET GT SCH (21:56)
[2020-02-24] MEDS: IPRATROPIUM BROMIDE 0.5 MG/2.5 ML NEBU NEB SCH ×6 (02:30→23:10)
[2020-02-24] MEDS: ALBUTEROL SULFATE 2.5 MG/3 ML NEBU NEB SCH ×6 (02:30→23:10)
[2020-02-24] MEDS: VITAL AF 1.2 1,000 ML LIQUID GT SCH (03:11)
[2020-02-24] MEDS: BACLOFEN 20 MG TABLET GT SCH ×3 (05:12→22:23)
[2020-02-24] MEDS: BACLOFEN 10 MG TABLET GT SCH ×3 (05:12→22:23)
[2020-02-24] MEDS: MIDODRINE HCL 10 MG TABLET GT SCH ×3 (05:12→22:24)
[2020-02-24] MEDS: METOCLOPRAMIDE HCL 5 MG TABLET GT SCH ×3 (05:13→22:24)
[2020-02-24] MEDS: OMEPRAZOLE 20 MG CAPSULE.DR GT SCH (05:13)
[2020-02-24 07:44] VITALS: BP 119/78
[2020-02-24] MEDS: DESMOPRESSIN 0.1 MG TABLET GT SCH (08:48)
[2020-02-24] MEDS: ACIDOPHILUS/BULGARICUS CHEW TAB GT SCH ×2 (08:49→20:58)
[2020-02-24] MEDS: PHENYTOIN 100 MG/4 ML UDC GT SCH ×2 (08:49→20:58)
[2020-02-24] MEDS: FUROSEMIDE 20 MG/2 ML GT SCH (08:50)
[2020-02-24] MEDS: levETIRAcetam 500 MG/5 ML LIQUID UDC GT SCH ×2 (08:50→20:58)
[2020-02-24] MEDS: COD LIVER OIL/ZINC OXIDE OINT 113 GM TUBE TOP SCH ×2 (08:53→20:59)
[2020-02-24] MEDS: POTASSIUM CHLORIDE 40 MEQ/30 ML LIQUID UDC GT SCH (08:53)
[2020-02-24] MEDS: HYDROGEN PEROXIDE 3% 118 ML BOTTLE TP SCH ×2 (09:00→21:07)
--- NOTE | 2020-02-24 11:30 | NUR ---
Assisted video chat with pt's mother at this time.
[2020-02-24 20:00] VITALS: BP 99/63
[2020-02-24] MEDS: FOLIC ACID 1 MG TABLET GT SCH (20:58)
[2020-02-24] MEDS: THIAMINE HCL 100 MG TABLET GT SCH (20:58)
[2020-02-24] MEDS: CHOLECALCIFEROL 1,000 UNIT TABLET GT SCH (20:59)
[2020-02-25] MEDS: IPRATROPIUM BROMIDE 0.5 MG/2.5 ML NEBU NEB SCH ×6 (03:11→22:40)
[2020-02-25] MEDS: ALBUTEROL SULFATE 2.5 MG/3 ML NEBU NEB SCH ×6 (03:11→22:40)
[2020-02-25] MEDS: VITAL AF 1.2 1,000 ML LIQUID GT SCH (03:42)
[2020-02-25] MEDS: BACLOFEN 20 MG TABLET GT SCH ×3 (05:35→21:01)
[2020-02-25] MEDS: MIDODRINE HCL 10 MG TABLET GT SCH ×3 (05:35→21:01)
[2020-02-25] MEDS: METOCLOPRAMIDE HCL 5 MG TABLET GT SCH ×3 (05:35→21:01)
[2020-02-25] MEDS: OMEPRAZOLE 20 MG CAPSULE.DR GT SCH (05:35)
[2020-02-25] MEDS: BACLOFEN 10 MG TABLET GT SCH ×3 (05:35→21:01)
[2020-02-25 07:40] VITALS: BP 117/75
[2020-02-25] MEDS: PHENYTOIN 100 MG/4 ML UDC GT SCH ×2 (08:52→21:00)
[2020-02-25] MEDS: DESMOPRESSIN 0.1 MG TABLET GT SCH (08:52)
[2020-02-25] MEDS: COD LIVER OIL/ZINC OXIDE OINT 113 GM TUBE TOP SCH ×2 (08:53→21:01)
[2020-02-25] MEDS: FUROSEMIDE 20 MG/2 ML GT SCH (08:53)
[2020-02-25] MEDS: levETIRAcetam 500 MG/5 ML LIQUID UDC GT SCH ×2 (08:53→21:00)
[2020-02-25] MEDS: POTASSIUM CHLORIDE 40 MEQ/30 ML LIQUID UDC GT SCH (08:53)
[2020-02-25] MEDS: ACIDOPHILUS/BULGARICUS CHEW TAB GT SCH ×2 (08:53→21:00)
[2020-02-25] MEDS: HYDROGEN PEROXIDE 3% 118 ML BOTTLE TP SCH ×2 (09:55→19:26)
[2020-02-25] MEDS: FOLIC ACID 1 MG TABLET GT SCH (21:00)
[2020-02-25] MEDS: THIAMINE HCL 100 MG TABLET GT SCH (21:01)
[2020-02-25] MEDS: CHOLECALCIFEROL 1,000 UNIT TABLET GT SCH (21:01)
[2020-02-25 21:57] VITALS: BP 94/59
[2020-02-26] MEDS: IPRATROPIUM BROMIDE 0.5 MG/2.5 ML NEBU NEB SCH ×6 (02:40→22:44)
[2020-02-26] MEDS: ALBUTEROL SULFATE 2.5 MG/3 ML NEBU NEB SCH ×6 (02:40→22:44)
[2020-02-26] MEDS: VITAL AF 1.2 1,000 ML LIQUID GT SCH (03:08)
[2020-02-26] MEDS: BACLOFEN 20 MG TABLET GT SCH ×3 (05:47→22:26)
[2020-02-26] MEDS: BACLOFEN 10 MG TABLET GT SCH ×3 (05:47→22:25)
[2020-02-26] MEDS: MIDODRINE HCL 10 MG TABLET GT SCH ×3 (05:48→22:00)
[2020-02-26] MEDS: OMEPRAZOLE 20 MG CAPSULE.DR GT SCH (05:48)
[2020-02-26] MEDS: METOCLOPRAMIDE HCL 5 MG TABLET GT SCH ×3 (05:48→22:27)
[2020-02-26 07:31] VITALS: BP 115/73
[2020-02-26] MEDS: PHENYTOIN 100 MG/4 ML UDC GT SCH ×2 (09:34→20:53)
[2020-02-26] MEDS: ACIDOPHILUS/BULGARICUS CHEW TAB GT SCH ×2 (09:34→20:53)
[2020-02-26] MEDS: DESMOPRESSIN 0.1 MG TABLET GT SCH (09:34)
[2020-02-26] MEDS: POTASSIUM CHLORIDE 40 MEQ/30 ML LIQUID UDC GT SCH (09:34)
[2020-02-26] MEDS: FUROSEMIDE 20 MG/2 ML GT SCH (09:34)
[2020-02-26] MEDS: levETIRAcetam 500 MG/5 ML LIQUID UDC GT SCH ×2 (09:34→20:53)
[2020-02-26] MEDS: COD LIVER OIL/ZINC OXIDE OINT 113 GM TUBE TOP SCH ×2 (09:34→20:53)
[2020-02-26] MEDS: HYDROGEN PEROXIDE 3% 118 ML BOTTLE TP SCH ×2 (09:35→19:06)
--- NOTE | 2020-02-26 16:25 | NUR ---
Covid19 test done.
[2020-02-26] MEDS: CHOLECALCIFEROL 1,000 UNIT TABLET GT SCH (20:53)
[2020-02-26] MEDS: THIAMINE HCL 100 MG TABLET GT SCH (20:53)
[2020-02-26] MEDS: FOLIC ACID 1 MG TABLET GT SCH (20:53)
[2020-02-26 21:53] VITALS: BP 102/62
[2020-02-27] MEDS: IPRATROPIUM BROMIDE 0.5 MG/2.5 ML NEBU NEB SCH ×6 (03:35→22:30)
[2020-02-27] MEDS: ALBUTEROL SULFATE 2.5 MG/3 ML NEBU NEB SCH ×6 (03:35→22:30)
[2020-02-27] MEDS: BACLOFEN 20 MG TABLET GT SCH ×3 (06:52→22:31)
[2020-02-27] MEDS: BACLOFEN 10 MG TABLET GT SCH ×3 (06:52→22:31)
[2020-02-27] MEDS: METOCLOPRAMIDE HCL 5 MG TABLET GT SCH ×3 (06:54→22:33)
[2020-02-27] MEDS: OMEPRAZOLE 20 MG CAPSULE.DR GT SCH (06:54)
[2020-02-27] MEDS: MIDODRINE HCL 10 MG TABLET GT SCH ×3 (06:54→22:32)
[2020-02-27 07:40] VITALS: BP 109/74
[2020-02-27] MEDS: COD LIVER OIL/ZINC OXIDE OINT 113 GM TUBE TOP SCH ×2 (08:14→20:45)
[2020-02-27] MEDS: FUROSEMIDE 20 MG/2 ML GT SCH (08:14)
[2020-02-27] MEDS: levETIRAcetam 500 MG/5 ML LIQUID UDC GT SCH ×2 (08:14→20:45)
[2020-02-27] MEDS: ACIDOPHILUS/BULGARICUS CHEW TAB GT SCH ×2 (08:14→20:45)
[2020-02-27] MEDS: POTASSIUM CHLORIDE 40 MEQ/30 ML LIQUID UDC GT SCH (08:14)
[2020-02-27] MEDS: DESMOPRESSIN 0.1 MG TABLET GT SCH (08:14)
[2020-02-27] MEDS: PHENYTOIN 100 MG/4 ML UDC GT SCH ×2 (08:14→20:45)
[2020-02-27] MEDS: HYDROGEN PEROXIDE 3% 118 ML BOTTLE TP SCH ×2 (09:14→21:18)
--- NOTE | 2020-02-27 15:41 | NUR ---
NOTIFIED RESPONSIBLE PARTIE'S ASSIGNED FRIEND (ERITREAN SPEAKING) ELVA KAY, OF POSSIBLE COVID 19 EXPOSURE, AND TESTING PLAN FOR CURRENT AND NEXT WEEK MANDATED. NOTIFIED ALSO OF PT'S NEGATIVE RESULTS FOR COVID 19 TESTING DONE ON 02/26/2020. RESPONSIBLE GREEN PARTY VERBALIZED GOOD UNDERSTANDING.
[2020-02-27 20:35] VITALS: BP 102/61
[2020-02-27] MEDS: CHOLECALCIFEROL 1,000 UNIT TABLET GT SCH (20:45)
[2020-02-27] MEDS: THIAMINE HCL 100 MG TABLET GT SCH (20:45)
[2020-02-27] MEDS: FOLIC ACID 1 MG TABLET GT SCH (20:45)
[2020-02-28] MEDS: ALBUTEROL SULFATE 2.5 MG/3 ML NEBU NEB SCH ×6 (02:30→22:30)
[2020-02-28] MEDS: IPRATROPIUM BROMIDE 0.5 MG/2.5 ML NEBU NEB SCH ×6 (02:30→22:30)
[2020-02-28] MEDS: BACLOFEN 10 MG TABLET GT SCH ×3 (06:21→21:21)
[2020-02-28] MEDS: BACLOFEN 20 MG TABLET GT SCH ×3 (06:21→21:21)
[2020-02-28] MEDS: OMEPRAZOLE 20 MG CAPSULE.DR GT SCH (06:22)
[2020-02-28] MEDS: MIDODRINE HCL 10 MG TABLET GT SCH ×3 (06:22→21:22)
[2020-02-28] MEDS: METOCLOPRAMIDE HCL 5 MG TABLET GT SCH ×3 (06:22→21:22)
[2020-02-28 07:29] VITALS: BP 90/54
[2020-02-28] MEDS: POTASSIUM CHLORIDE 40 MEQ/30 ML LIQUID UDC GT SCH (08:09)
[2020-02-28] MEDS: FUROSEMIDE 20 MG/2 ML GT SCH (08:09)
[2020-02-28] MEDS: PHENYTOIN 100 MG/4 ML UDC GT SCH ×2 (08:09→21:16)
[2020-02-28] MEDS: ACIDOPHILUS/BULGARICUS CHEW TAB GT SCH ×2 (08:09→21:17)
[2020-02-28] MEDS: COD LIVER OIL/ZINC OXIDE OINT 113 GM TUBE TOP SCH ×2 (08:09→21:21)
[2020-02-28] MEDS: DESMOPRESSIN 0.1 MG TABLET GT SCH (08:09)
[2020-02-28] MEDS: levETIRAcetam 500 MG/5 ML LIQUID UDC GT SCH ×2 (08:09→21:18)
[2020-02-28] MEDS: HYDROGEN PEROXIDE 3% 118 ML BOTTLE TP SCH ×2 (09:36→21:44)
[2020-02-28] MEDS: VITAL AF 1.2 1,000 ML LIQUID GT SCH (14:57)
--- NOTE | 2020-02-28 19:45 | NUR ---
New tx for Perineal and R and L groin rashes carried out.
[2020-02-28 20:26] VITALS: BP 107/66
[2020-02-28] MEDS: FOLIC ACID 1 MG TABLET GT SCH (21:18)
[2020-02-28] MEDS: THIAMINE HCL 100 MG TABLET GT SCH (21:20)
[2020-02-28] MEDS: CHOLECALCIFEROL 1,000 UNIT TABLET GT SCH (21:20)
[2020-02-28] MEDS: NYSTATIN CREAM 30 GM TUBE TP SCH (21:21)
[2020-02-28] MEDS: TRIAMCINOLONE ACET 0.1% CREAM 15 GM TUBE TP SCH (21:21)
[2020-02-29] MEDS: ALBUTEROL SULFATE 2.5 MG/3 ML NEBU NEB SCH ×6 (02:30→22:40)
[2020-02-29] MEDS: IPRATROPIUM BROMIDE 0.5 MG/2.5 ML NEBU NEB SCH ×6 (02:30→22:40)
[2020-02-29] MEDS: BACLOFEN 20 MG TABLET GT SCH ×3 (05:53→21:25)
[2020-02-29] MEDS: BACLOFEN 10 MG TABLET GT SCH ×3 (05:53→21:25)
[2020-02-29 05:54] VITALS: BP 110/68
[2020-02-29] MEDS: MIDODRINE HCL 10 MG TABLET GT SCH ×3 (05:56→21:25)
[2020-02-29] MEDS: METOCLOPRAMIDE HCL 5 MG TABLET GT SCH ×3 (05:56→21:26)
[2020-02-29] MEDS: OMEPRAZOLE 20 MG CAPSULE.DR GT SCH (05:56)
[2020-02-29 07:30] VITALS: BP 135/60
[2020-02-29 07:44] VITALS: BP 90/53
[2020-02-29] MEDS: ACIDOPHILUS/BULGARICUS CHEW TAB GT SCH ×2 (08:58→21:21)
[2020-02-29] MEDS: PHENYTOIN 100 MG/4 ML UDC GT SCH ×2 (08:58→21:21)
[2020-02-29] MEDS: DESMOPRESSIN 0.1 MG TABLET GT SCH (08:58)
[2020-02-29] MEDS: POTASSIUM CHLORIDE 40 MEQ/30 ML LIQUID UDC GT SCH (08:59)
[2020-02-29] MEDS: levETIRAcetam 500 MG/5 ML LIQUID UDC GT SCH ×2 (08:59→21:23)
[2020-02-29] MEDS: COD LIVER OIL/ZINC OXIDE OINT 113 GM TUBE TOP SCH ×2 (08:59→21:24)
[2020-02-29] MEDS: TRIAMCINOLONE ACET 0.1% CREAM 15 GM TUBE TP SCH ×2 (08:59→21:24)
[2020-02-29] MEDS: NYSTATIN CREAM 30 GM TUBE TP SCH ×2 (08:59→21:24)
[2020-02-29] MEDS: FUROSEMIDE 20 MG/2 ML GT SCH (08:59)
[2020-02-29] MEDS: HYDROGEN PEROXIDE 3% 118 ML BOTTLE TP SCH ×2 (09:20→19:05)
[2020-02-29 20:00] VITALS: BP 92/56
[2020-02-29] MEDS: FOLIC ACID 1 MG TABLET GT SCH (21:21)
[2020-02-29] MEDS: THIAMINE HCL 100 MG TABLET GT SCH (21:23)
[2020-02-29] MEDS: CHOLECALCIFEROL 1,000 UNIT TABLET GT SCH (21:24)
[2020-03-01] MEDS: ALBUTEROL SULFATE 2.5 MG/3 ML NEBU NEB SCH ×6 (02:50→22:40)
[2020-03-01] MEDS: IPRATROPIUM BROMIDE 0.5 MG/2.5 ML NEBU NEB SCH ×6 (02:50→22:40)
[2020-03-01] MEDS: BACLOFEN 20 MG TABLET GT SCH ×3 (05:13→21:51)
[2020-03-01] MEDS: BACLOFEN 10 MG TABLET GT SCH ×3 (05:13→21:51)
[2020-03-01] MEDS: OMEPRAZOLE 20 MG CAPSULE.DR GT SCH (05:14)
[2020-03-01] MEDS: METOCLOPRAMIDE HCL 5 MG TABLET GT SCH ×3 (05:14→21:52)
[2020-03-01] MEDS: MIDODRINE HCL 10 MG TABLET GT SCH ×3 (05:14→21:53)
[2020-03-01 07:48] VITALS: BP 130/70
[2020-03-01] MEDS: DESMOPRESSIN 0.1 MG TABLET GT SCH (08:34)
[2020-03-01] MEDS: COD LIVER OIL/ZINC OXIDE OINT 113 GM TUBE TOP SCH ×2 (08:35→21:50)
[2020-03-01] MEDS: FUROSEMIDE 20 MG/2 ML GT SCH (08:35)
[2020-03-01] MEDS: levETIRAcetam 500 MG/5 ML LIQUID UDC GT SCH ×2 (08:35→21:50)
[2020-03-01] MEDS: POTASSIUM CHLORIDE 40 MEQ/30 ML LIQUID UDC GT SCH (08:35)
[2020-03-01] MEDS: NYSTATIN CREAM 30 GM TUBE TP SCH ×2 (08:35→21:51)
[2020-03-01] MEDS: TRIAMCINOLONE ACET 0.1% CREAM 15 GM TUBE TP SCH ×2 (08:35→21:51)
[2020-03-01] MEDS: PHENYTOIN 100 MG/4 ML UDC GT SCH ×2 (08:35→21:50)
[2020-03-01] MEDS: ACIDOPHILUS/BULGARICUS CHEW TAB GT SCH ×2 (08:35→21:50)
[2020-03-01] MEDS: HYDROGEN PEROXIDE 3% 118 ML BOTTLE TP SCH ×2 (09:40→19:00)
[2020-03-01 20:00] VITALS: BP 92/58
[2020-03-01] MEDS: FOLIC ACID 1 MG TABLET GT SCH (21:50)
[2020-03-01] MEDS: CHOLECALCIFEROL 1,000 UNIT TABLET GT SCH (21:50)
[2020-03-01] MEDS: THIAMINE HCL 100 MG TABLET GT SCH (21:50)
[2020-03-02] MEDS: IPRATROPIUM BROMIDE 0.5 MG/2.5 ML NEBU NEB SCH ×6 (02:40→23:05)
[2020-03-02] MEDS: ALBUTEROL SULFATE 2.5 MG/3 ML NEBU NEB SCH ×6 (02:40→23:05)
[2020-03-02] MEDS: BACLOFEN 20 MG TABLET GT SCH ×3 (06:15→21:08)
[2020-03-02] MEDS: BACLOFEN 10 MG TABLET GT SCH ×3 (06:15→21:08)
[2020-03-02] MEDS: METOCLOPRAMIDE HCL 5 MG TABLET GT SCH ×3 (06:16→21:09)
[2020-03-02] MEDS: MIDODRINE HCL 10 MG TABLET GT SCH ×3 (06:16→21:09)
[2020-03-02] MEDS: OMEPRAZOLE 20 MG CAPSULE.DR GT SCH (06:16)
[2020-03-02 07:33] VITALS: BP 102/64
[2020-03-02] MEDS: DESMOPRESSIN 0.1 MG TABLET GT SCH (08:47)
[2020-03-02] MEDS: PHENYTOIN 100 MG/4 ML UDC GT SCH ×2 (08:47→20:06)
[2020-03-02] MEDS: ACIDOPHILUS/BULGARICUS CHEW TAB GT SCH ×2 (08:48→20:06)
[2020-03-02] MEDS: POTASSIUM CHLORIDE 40 MEQ/30 ML LIQUID UDC GT SCH (08:49)
[2020-03-02] MEDS: levETIRAcetam 500 MG/5 ML LIQUID UDC GT SCH ×2 (08:49→20:06)
[2020-03-02] MEDS: FUROSEMIDE 20 MG/2 ML GT SCH (08:49)
[2020-03-02] MEDS: TRIAMCINOLONE ACET 0.1% CREAM 15 GM TUBE TP SCH ×2 (08:50→20:06)
[2020-03-02] MEDS: NYSTATIN CREAM 30 GM TUBE TP SCH ×2 (08:50→20:06)
[2020-03-02] MEDS: COD LIVER OIL/ZINC OXIDE OINT 113 GM TUBE TOP SCH ×2 (08:50→20:06)
[2020-03-02] MEDS: HYDROGEN PEROXIDE 3% 118 ML BOTTLE TP SCH ×2 (09:30→21:20)
[2020-03-02 20:00] VITALS: BP 142/82
[2020-03-02] MEDS: CHOLECALCIFEROL 1,000 UNIT TABLET GT SCH (20:06)
[2020-03-02] MEDS: FOLIC ACID 1 MG TABLET GT SCH (20:06)
[2020-03-02] MEDS: THIAMINE HCL 100 MG TABLET GT SCH (20:06)
[2020-03-02] MEDS: VITAL AF 1.2 1,000 ML LIQUID GT SCH (22:45)
[2020-03-03] MEDS: IPRATROPIUM BROMIDE 0.5 MG/2.5 ML NEBU NEB SCH ×6 (03:12→22:30)
[2020-03-03] MEDS: ALBUTEROL SULFATE 2.5 MG/3 ML NEBU NEB SCH ×6 (03:12→22:30)
[2020-03-03] MEDS: OMEPRAZOLE 20 MG CAPSULE.DR GT SCH (05:12)
[2020-03-03] MEDS: BACLOFEN 20 MG TABLET GT SCH ×3 (05:12→21:11)
[2020-03-03] MEDS: BACLOFEN 10 MG TABLET GT SCH ×3 (05:12→21:11)
[2020-03-03] MEDS: MIDODRINE HCL 10 MG TABLET GT SCH ×3 (05:12→21:13)
[2020-03-03] MEDS: METOCLOPRAMIDE HCL 5 MG TABLET GT SCH ×3 (05:12→21:13)
[2020-03-03] MEDS: BISACODYL 10 MG SUPP.RECT RC PRN (06:13)
[2020-03-03 07:44] VITALS: BP 123/91
[2020-03-03] MEDS: DESMOPRESSIN 0.1 MG TABLET GT SCH (08:27)
[2020-03-03] MEDS: PHENYTOIN 100 MG/4 ML UDC GT SCH ×2 (08:27→20:17)
[2020-03-03] MEDS: levETIRAcetam 500 MG/5 ML LIQUID UDC GT SCH ×2 (08:30→20:17)
[2020-03-03] MEDS: ACIDOPHILUS/BULGARICUS CHEW TAB GT SCH ×2 (08:30→20:17)
[2020-03-03] MEDS: POTASSIUM CHLORIDE 40 MEQ/30 ML LIQUID UDC GT SCH (08:32)
[2020-03-03] MEDS: FUROSEMIDE 20 MG/2 ML GT SCH (08:32)
[2020-03-03] MEDS: COD LIVER OIL/ZINC OXIDE OINT 113 GM TUBE TOP SCH ×2 (08:33→20:18)
[2020-03-03] MEDS: TRIAMCINOLONE ACET 0.1% CREAM 15 GM TUBE TP SCH ×2 (08:33→20:18)
[2020-03-03] MEDS: NYSTATIN CREAM 30 GM TUBE TP SCH ×2 (08:33→20:18)
[2020-03-03] MEDS: HYDROGEN PEROXIDE 3% 118 ML BOTTLE TP SCH ×2 (08:38→21:41)
--- NOTE | 2020-03-03 18:35 | NUR ---
Received pt on HT-50 ventilator with the following settings of SIMV-12, Vt-500, PEEP+5, PS-10, FIO2-2LPM bleed in, trached with Shiley#6 DCT trach, which is in the place and secure. No respiratory distress noted. Airway care done, pt responded to physical stimuli. In-line HHN tx with 2.5mg Albuterol+0.5mg Atrovent given, no adverse reaction noted. HME, Sx Garza and HHN adaptor changed. Pt has a gauze between her lips, to prevent biting. Resus. bag and back up trach at bedside. Vent and alarms checked and reset.
[2020-03-03 20:16] VITALS: BP 129/73
[2020-03-03] MEDS: THIAMINE HCL 100 MG TABLET GT SCH (20:17)
[2020-03-03] MEDS: FOLIC ACID 1 MG TABLET GT SCH (20:17)
[2020-03-03] MEDS: CHOLECALCIFEROL 1,000 UNIT TABLET GT SCH (20:18)
[2020-03-03] MEDS: VITAL AF 1.2 1,000 ML LIQUID GT SCH (22:00)
[2020-03-04] MEDS: IPRATROPIUM BROMIDE 0.5 MG/2.5 ML NEBU NEB SCH ×6 (02:30→22:30)
[2020-03-04] MEDS: ALBUTEROL SULFATE 2.5 MG/3 ML NEBU NEB SCH ×6 (02:30→22:30)
[2020-03-04] MEDS: BACLOFEN 10 MG TABLET GT SCH ×3 (05:18→21:06)
[2020-03-04] MEDS: MIDODRINE HCL 10 MG TABLET GT SCH ×3 (05:19→21:06)
[2020-03-04] MEDS: METOCLOPRAMIDE HCL 5 MG TABLET GT SCH ×3 (05:19→21:06)
[2020-03-04] MEDS: OMEPRAZOLE 20 MG CAPSULE.DR GT SCH (05:19)
[2020-03-04] MEDS: BACLOFEN 20 MG TABLET GT SCH ×3 (05:19→21:06)
[2020-03-04] MEDS: NYSTATIN CREAM 30 GM TUBE TP SCH ×2 (09:00→20:13)
[2020-03-04] MEDS: TRIAMCINOLONE ACET 0.1% CREAM 15 GM TUBE TP SCH ×2 (09:00→20:12)
[2020-03-04] MEDS: ACIDOPHILUS/BULGARICUS CHEW TAB GT SCH ×2 (09:28→20:12)
[2020-03-04] MEDS: DESMOPRESSIN 0.1 MG TABLET GT SCH (09:28)
[2020-03-04] MEDS: FUROSEMIDE 20 MG/2 ML GT SCH (09:28)
[2020-03-04] MEDS: POTASSIUM CHLORIDE 40 MEQ/30 ML LIQUID UDC GT SCH (09:28)
[2020-03-04] MEDS: levETIRAcetam 500 MG/5 ML LIQUID UDC GT SCH ×2 (09:28→20:12)
[2020-03-04] MEDS: PHENYTOIN 100 MG/4 ML UDC GT SCH ×2 (09:28→20:12)
[2020-03-04] MEDS: COD LIVER OIL/ZINC OXIDE OINT 113 GM TUBE TOP SCH ×2 (09:29→20:12)
[2020-03-04] MEDS: HYDROGEN PEROXIDE 3% 118 ML BOTTLE TP SCH ×2 (11:20→20:29)
[2020-03-04] MEDS: VITAL AF 1.2 1,000 ML LIQUID GT SCH (17:44)
--- NOTE | 2020-03-04 18:35 | NUR ---
Received pt on HT-50 ventilator with the following settings of SIMV-12, Vt-500, PEEP+5, PS-10, FIO2-2LPM bleed in, trached with Susyley#6 DCT trach, which is in the place and secure. No respiratory distress noted. Airway care done, pt responded to physical stimuli. In-line HHN tx with 2.5mg Albuterol+0.5mg Atrovent given, pt tolerated well. HME changed. Pt has a gauze between her lips, to prevent biting. Resus. bag and back up trach at bedside. Vent and alarms checked and reset.
[2020-03-04] MEDS: CHOLECALCIFEROL 1,000 UNIT TABLET GT SCH (20:12)
[2020-03-04] MEDS: THIAMINE HCL 100 MG TABLET GT SCH (20:12)
[2020-03-04] MEDS: FOLIC ACID 1 MG TABLET GT SCH (20:12)
[2020-03-04 20:15] VITALS: BP 106/58
[2020-03-05] MEDS: IPRATROPIUM BROMIDE 0.5 MG/2.5 ML NEBU NEB SCH ×6 (02:30→22:32)
[2020-03-05] MEDS: ALBUTEROL SULFATE 2.5 MG/3 ML NEBU NEB SCH ×6 (02:30→22:32)
[2020-03-05] MEDS: BACLOFEN 10 MG TABLET GT SCH ×3 (05:24→21:34)
[2020-03-05] MEDS: OMEPRAZOLE 20 MG CAPSULE.DR GT SCH (05:25)
[2020-03-05] MEDS: METOCLOPRAMIDE HCL 5 MG TABLET GT SCH ×3 (05:25→21:34)
[2020-03-05] MEDS: BACLOFEN 20 MG TABLET GT SCH ×3 (05:25→21:34)
[2020-03-05] MEDS: MIDODRINE HCL 10 MG TABLET GT SCH ×3 (05:25→21:34)
[2020-03-05 07:23] VITALS: BP 95/60
[2020-03-05] MEDS: DESMOPRESSIN 0.1 MG TABLET GT SCH (09:12)
[2020-03-05] MEDS: ACIDOPHILUS/BULGARICUS CHEW TAB GT SCH ×2 (09:15→21:30)
[2020-03-05] MEDS: PHENYTOIN 100 MG/4 ML UDC GT SCH ×2 (09:15→21:28)
[2020-03-05] MEDS: levETIRAcetam 500 MG/5 ML LIQUID UDC GT SCH ×2 (09:16→21:32)
[2020-03-05] MEDS: POTASSIUM CHLORIDE 40 MEQ/30 ML LIQUID UDC GT SCH (09:17)
[2020-03-05] MEDS: FUROSEMIDE 20 MG/2 ML GT SCH (09:17)
[2020-03-05] MEDS: NYSTATIN CREAM 30 GM TUBE TP SCH ×2 (09:18→21:34)
[2020-03-05] MEDS: COD LIVER OIL/ZINC OXIDE OINT 113 GM TUBE TOP SCH ×2 (09:18→21:33)
[2020-03-05] MEDS: TRIAMCINOLONE ACET 0.1% CREAM 15 GM TUBE TP SCH ×2 (09:18→21:33)
[2020-03-05] MEDS: HYDROGEN PEROXIDE 3% 118 ML BOTTLE TP SCH ×2 (09:30→19:19)
--- NOTE | 2020-03-05 15:30 | NUR ---
NEW ORDER CARRIED OUT FOR COVID 19 TEST.
--- NOTE | 2020-03-05 16:38 | NUR ---
Patient relative notified for covid test.
[2020-03-05 19:53] VITALS: BP 99/60
[2020-03-05] MEDS: FOLIC ACID 1 MG TABLET GT SCH (21:30)
[2020-03-05] MEDS: THIAMINE HCL 100 MG TABLET GT SCH (21:32)
[2020-03-05] MEDS: CHOLECALCIFEROL 1,000 UNIT TABLET GT SCH (21:33)
[2020-03-05] MEDS: VITAL AF 1.2 1,000 ML LIQUID GT SCH (21:36)
[2020-03-06] MEDS: IPRATROPIUM BROMIDE 0.5 MG/2.5 ML NEBU NEB SCH ×6 (04:26→23:09)
[2020-03-06] MEDS: ALBUTEROL SULFATE 2.5 MG/3 ML NEBU NEB SCH ×6 (04:26→23:09)
[2020-03-06] MEDS: BACLOFEN 20 MG TABLET GT SCH ×3 (05:55→21:39)
[2020-03-06] MEDS: BACLOFEN 10 MG TABLET GT SCH ×3 (05:55→21:39)
[2020-03-06] MEDS: OMEPRAZOLE 20 MG CAPSULE.DR GT SCH (05:56)
[2020-03-06] MEDS: MIDODRINE HCL 10 MG TABLET GT SCH ×3 (05:56→21:39)
[2020-03-06] MEDS: METOCLOPRAMIDE HCL 5 MG TABLET GT SCH ×3 (05:56→21:39)
[2020-03-06 05:58] LABS: BASOPHILS % (AUTO) 0.9 % (0.0-2.0); EOSINOPHILS # (AUTO) 0.3 K/uL (0.0-0.7); EOSINOPHILS % (AUTO) 4.6 % (0.0-7.0); HEMATOCRIT 32.4 % (31.2-41.9); LYMPHOCYTES # (AUTO) 1.9 K/uL (20.0-40.0); LYMPHOCYTES % (AUTO) 33.4 % (20.5-51.5); MEAN CORPUSCULAR HEMOGLOBIN 31.3 uug (24.7-32.8); MEAN CORPUSCULAR HGB CONC 34 g/dL (32.3-35.6); MEAN CORPUSCULAR VOLUME 92.3 fL (75.5-95.3); MONOCYTES # (AUTO) 0.4 K/uL (2.0-10.0); MONOCYTES % (AUTO) 6.9 % (0.0-11.0); NEUTROPHILS % (AUTO) 54.2 % (38.5-71.5); PLATELET COUNT (AUTO) 337 K/uL (179-408); RED BLOOD CELL COUNT(AUTO) 3.52 MIL/uL (3.63-4.92); WHITE BLOOD COUNT (AUTO) 5.5 K/uL (3.8-11.8)
[2020-03-06 06:06] LABS: CREATININE 0.8 mg/dL (0.6-1.3); MAGNESIUM 1.7 mg/dL (1.8-2.4); PHOSPHOROUS 4.1 mg/dL (2.5-4.9)
[2020-03-06 07:26] VITALS: BP 119/73
[2020-03-06] MEDS: ACIDOPHILUS/BULGARICUS CHEW TAB GT SCH ×2 (09:06→21:37)
[2020-03-06] MEDS: DESMOPRESSIN 0.1 MG TABLET GT SCH (09:06)
[2020-03-06] MEDS: PHENYTOIN 100 MG/4 ML UDC GT SCH ×2 (09:06→21:37)
[2020-03-06] MEDS: levETIRAcetam 500 MG/5 ML LIQUID UDC GT SCH ×2 (09:06→21:39)
[2020-03-06] MEDS: FUROSEMIDE 20 MG/2 ML GT SCH (09:06)
[2020-03-06] MEDS: POTASSIUM CHLORIDE 40 MEQ/30 ML LIQUID UDC GT SCH (09:06)
[2020-03-06] MEDS: TRIAMCINOLONE ACET 0.1% CREAM 15 GM TUBE TP SCH ×2 (09:07→21:41)
[2020-03-06] MEDS: NYSTATIN CREAM 30 GM TUBE TP SCH ×2 (09:07→21:41)
[2020-03-06] MEDS: COD LIVER OIL/ZINC OXIDE OINT 113 GM TUBE TOP SCH ×2 (09:07→21:41)
[2020-03-06] MEDS: HYDROGEN PEROXIDE 3% 118 ML BOTTLE TP SCH ×2 (09:36→20:58)
--- NOTE | 2020-03-06 15:29 | NUR ---
INTERDISCIPLINARY PLAN OF CARE CONFERENCE was held today. Patient's family was not available to participate in the meeting. Dr. Wagner and the Interdisciplinary Team reviewed the current plan of care in detail. RN reported on patient's medical condition and findings of most recent labs. See RN IDT conference notes. No major changes in medical condition were reported by nursing or by other disciplines. See all other disciplines IDT notes and physician's progress notes for additional details.
[2020-03-06 20:30] VITALS: BP 105/63
[2020-03-06] MEDS: FOLIC ACID 1 MG TABLET GT SCH (21:38)
[2020-03-06] MEDS: CHOLECALCIFEROL 1,000 UNIT TABLET GT SCH (21:40)
[2020-03-06] MEDS: THIAMINE HCL 100 MG TABLET GT SCH (21:40)
[2020-03-07] MEDS: IPRATROPIUM BROMIDE 0.5 MG/2.5 ML NEBU NEB SCH ×5 (03:13→22:30)
[2020-03-07] MEDS: ALBUTEROL SULFATE 2.5 MG/3 ML NEBU NEB SCH ×5 (03:13→22:30)
[2020-03-07] MEDS: MIDODRINE HCL 10 MG TABLET GT SCH ×3 (06:00→21:50)
[2020-03-07] MEDS: BACLOFEN 10 MG TABLET GT SCH ×3 (06:19→21:49)
[2020-03-07] MEDS: BACLOFEN 20 MG TABLET GT SCH ×3 (06:19→21:49)
[2020-03-07] MEDS: OMEPRAZOLE 20 MG CAPSULE.DR GT SCH (06:20)
[2020-03-07] MEDS: METOCLOPRAMIDE HCL 5 MG TABLET GT SCH ×3 (06:20→21:51)
[2020-03-07 07:43] VITALS: BP 110/63
[2020-03-07] MEDS: HYDROGEN PEROXIDE 3% 118 ML BOTTLE TP SCH ×2 (07:50→21:29)
[2020-03-07] MEDS: DESMOPRESSIN 0.1 MG TABLET GT SCH (08:53)
[2020-03-07] MEDS: ACIDOPHILUS/BULGARICUS CHEW TAB GT SCH ×2 (08:53→21:49)
[2020-03-07] MEDS: PHENYTOIN 100 MG/4 ML UDC GT SCH ×2 (08:53→21:49)
[2020-03-07] MEDS: levETIRAcetam 500 MG/5 ML LIQUID UDC GT SCH ×2 (08:55→21:49)
[2020-03-07] MEDS: POTASSIUM CHLORIDE 40 MEQ/30 ML LIQUID UDC GT SCH (08:57)
[2020-03-07] MEDS: COD LIVER OIL/ZINC OXIDE OINT 113 GM TUBE TOP SCH ×2 (08:57→21:49)
[2020-03-07] MEDS: FUROSEMIDE 20 MG/2 ML GT SCH (08:57)
[2020-03-07] MEDS: NYSTATIN CREAM 30 GM TUBE TP SCH ×2 (08:57→21:49)
[2020-03-07] MEDS: TRIAMCINOLONE ACET 0.1% CREAM 15 GM TUBE TP SCH ×2 (08:57→21:49)
[2020-03-07] MEDS: VITAL AF 1.2 1,000 ML LIQUID GT SCH (17:07)
--- NOTE | 2020-03-07 18:28 | NUR ---
Left message to Mahamed regarding COVID 19 results .
--- NOTE | 2020-03-07 18:36 | NUR ---
Received pt on HT-50 ventilator with the following settings of SIMV-12, Vt-500, PEEP+5, PS-10, FIO2-2LPM bleed in, trached with Susyley#6 DCT trach, which is in the place and secure. No distress noted. Airway care done, pt responded to physical stimuli. In-line HHN tx with 2.5mg Albuterol+0.5mg Atrovent given, pt tolerated well. HME changed. Pt has a gauze between her lips, to prevent biting. Resus. bag and back up trach at bedside. Vent and alarms checked and reset.
[2020-03-07 20:12] VITALS: BP 104/54
[2020-03-07] MEDS: CHOLECALCIFEROL 1,000 UNIT TABLET GT SCH (21:49)
[2020-03-07] MEDS: THIAMINE HCL 100 MG TABLET GT SCH (21:49)
[2020-03-07] MEDS: FOLIC ACID 1 MG TABLET GT SCH (21:49)
[2020-03-08] MEDS: IPRATROPIUM BROMIDE 0.5 MG/2.5 ML NEBU NEB SCH ×6 (02:30→22:30)
[2020-03-08] MEDS: ALBUTEROL SULFATE 2.5 MG/3 ML NEBU NEB SCH ×6 (02:30→22:30)
[2020-03-08] MEDS: OMEPRAZOLE 20 MG CAPSULE.DR GT SCH (05:59)
[2020-03-08] MEDS: BACLOFEN 10 MG TABLET GT SCH ×3 (05:59→21:51)
[2020-03-08] MEDS: BACLOFEN 20 MG TABLET GT SCH ×3 (05:59→21:52)
[2020-03-08] MEDS: METOCLOPRAMIDE HCL 5 MG TABLET GT SCH ×3 (05:59→21:52)
[2020-03-08] MEDS: MIDODRINE HCL 10 MG TABLET GT SCH ×3 (06:00→21:52)
[2020-03-08 06:01] VITALS: BP 99/62
[2020-03-08 07:25] VITALS: BP 110/64
[2020-03-08] MEDS: DESMOPRESSIN 0.1 MG TABLET GT SCH (08:56)
[2020-03-08] MEDS: levETIRAcetam 500 MG/5 ML LIQUID UDC GT SCH ×2 (08:56→21:48)
[2020-03-08] MEDS: ACIDOPHILUS/BULGARICUS CHEW TAB GT SCH ×2 (08:56→21:48)
[2020-03-08] MEDS: PHENYTOIN 100 MG/4 ML UDC GT SCH ×2 (08:56→21:46)
[2020-03-08] MEDS: FUROSEMIDE 20 MG/2 ML GT SCH (08:57)
[2020-03-08] MEDS: POTASSIUM CHLORIDE 40 MEQ/30 ML LIQUID UDC GT SCH (08:57)
[2020-03-08] MEDS: COD LIVER OIL/ZINC OXIDE OINT 113 GM TUBE TOP SCH ×2 (08:58→21:51)
[2020-03-08] MEDS: NYSTATIN CREAM 30 GM TUBE TP SCH ×2 (08:58→21:51)
[2020-03-08] MEDS: TRIAMCINOLONE ACET 0.1% CREAM 15 GM TUBE TP SCH ×2 (08:58→21:51)
[2020-03-08] MEDS: HYDROGEN PEROXIDE 3% 118 ML BOTTLE TP SCH ×2 (09:26→20:40)
[2020-03-08 20:17] VITALS: BP 112/60
[2020-03-08] MEDS: FOLIC ACID 1 MG TABLET GT SCH (21:48)
[2020-03-08] MEDS: THIAMINE HCL 100 MG TABLET GT SCH (21:50)
[2020-03-08] MEDS: CHOLECALCIFEROL 1,000 UNIT TABLET GT SCH (21:51)
[2020-03-09] MEDS: ALBUTEROL SULFATE 2.5 MG/3 ML NEBU NEB SCH ×6 (02:30→23:05)
[2020-03-09] MEDS: IPRATROPIUM BROMIDE 0.5 MG/2.5 ML NEBU NEB SCH ×6 (02:30→23:05)
[2020-03-09] MEDS: BACLOFEN 20 MG TABLET GT SCH ×3 (05:29→21:09)
[2020-03-09] MEDS: BACLOFEN 10 MG TABLET GT SCH ×3 (05:29→21:09)
[2020-03-09 05:30] VITALS: BP 108/66
[2020-03-09] MEDS: OMEPRAZOLE 20 MG CAPSULE.DR GT SCH (05:30)
[2020-03-09] MEDS: METOCLOPRAMIDE HCL 5 MG TABLET GT SCH ×3 (05:30→21:09)
[2020-03-09] MEDS: MIDODRINE HCL 10 MG TABLET GT SCH ×3 (05:47→21:09)
[2020-03-09 07:51] VITALS: BP 123/69
[2020-03-09] MEDS: ACIDOPHILUS/BULGARICUS CHEW TAB GT SCH ×2 (08:34→21:07)
[2020-03-09] MEDS: TRIAMCINOLONE ACET 0.1% CREAM 15 GM TUBE TP SCH ×2 (08:34→21:08)
[2020-03-09] MEDS: NYSTATIN CREAM 30 GM TUBE TP SCH ×2 (08:34→21:09)
[2020-03-09] MEDS: DESMOPRESSIN 0.1 MG TABLET GT SCH (08:34)
[2020-03-09] MEDS: COD LIVER OIL/ZINC OXIDE OINT 113 GM TUBE TOP SCH ×2 (08:34→21:08)
[2020-03-09] MEDS: levETIRAcetam 500 MG/5 ML LIQUID UDC GT SCH ×2 (08:34→21:07)
[2020-03-09] MEDS: POTASSIUM CHLORIDE 40 MEQ/30 ML LIQUID UDC GT SCH (08:34)
[2020-03-09] MEDS: FUROSEMIDE 20 MG/2 ML GT SCH (08:34)
[2020-03-09] MEDS: PHENYTOIN 100 MG/4 ML UDC GT SCH ×2 (08:34→21:07)
[2020-03-09] MEDS: HYDROGEN PEROXIDE 3% 118 ML BOTTLE TP SCH ×2 (09:00→20:48)
[2020-03-09 20:16] VITALS: BP 92/50
[2020-03-09] MEDS: FOLIC ACID 1 MG TABLET GT SCH (21:07)
[2020-03-09] MEDS: CHOLECALCIFEROL 1,000 UNIT TABLET GT SCH (21:08)
[2020-03-09] MEDS: THIAMINE HCL 100 MG TABLET GT SCH (21:08)
[2020-03-10] MEDS: ALBUTEROL SULFATE 2.5 MG/3 ML NEBU NEB SCH ×6 (03:05→23:02)
[2020-03-10] MEDS: IPRATROPIUM BROMIDE 0.5 MG/2.5 ML NEBU NEB SCH ×6 (03:05→23:02)
[2020-03-10] MEDS: BACLOFEN 10 MG TABLET GT SCH ×3 (06:12→22:26)
[2020-03-10] MEDS: BACLOFEN 20 MG TABLET GT SCH ×3 (06:12→22:26)
[2020-03-10] MEDS: OMEPRAZOLE 20 MG CAPSULE.DR GT SCH (06:13)
[2020-03-10] MEDS: MIDODRINE HCL 10 MG TABLET GT SCH ×3 (06:13→22:27)
[2020-03-10] MEDS: METOCLOPRAMIDE HCL 5 MG TABLET GT SCH ×3 (06:14→22:27)
[2020-03-10 08:08] VITALS: BP 100/60
[2020-03-10] MEDS: HYDROGEN PEROXIDE 3% 118 ML BOTTLE TP SCH ×2 (09:02→21:03)
[2020-03-10] MEDS: ACIDOPHILUS/BULGARICUS CHEW TAB GT SCH ×2 (09:08→20:41)
[2020-03-10] MEDS: levETIRAcetam 500 MG/5 ML LIQUID UDC GT SCH ×2 (09:08→20:42)
[2020-03-10] MEDS: PHENYTOIN 100 MG/4 ML UDC GT SCH ×2 (09:08→20:41)
[2020-03-10] MEDS: DESMOPRESSIN 0.1 MG TABLET GT SCH (09:08)
[2020-03-10] MEDS: POTASSIUM CHLORIDE 40 MEQ/30 ML LIQUID UDC GT SCH (09:10)
[2020-03-10] MEDS: COD LIVER OIL/ZINC OXIDE OINT 113 GM TUBE TOP SCH ×2 (09:10→20:42)
[2020-03-10] MEDS: FUROSEMIDE 20 MG/2 ML GT SCH (09:10)
[2020-03-10] MEDS: TRIAMCINOLONE ACET 0.1% CREAM 15 GM TUBE TP SCH ×2 (09:11→20:42)
[2020-03-10] MEDS: NYSTATIN CREAM 30 GM TUBE TP SCH ×2 (09:12→20:42)
[2020-03-10] MEDS: VITAL AF 1.2 1,000 ML LIQUID GT SCH (18:46)
[2020-03-10 20:00] VITALS: BP 114/60
[2020-03-10] MEDS: FOLIC ACID 1 MG TABLET GT SCH (20:41)
[2020-03-10] MEDS: THIAMINE HCL 100 MG TABLET GT SCH (20:42)
[2020-03-10] MEDS: CHOLECALCIFEROL 1,000 UNIT TABLET GT SCH (20:42)
[2020-03-11] MEDS: ALBUTEROL SULFATE 2.5 MG/3 ML NEBU NEB SCH ×6 (02:31→23:21)
[2020-03-11] MEDS: IPRATROPIUM BROMIDE 0.5 MG/2.5 ML NEBU NEB SCH ×6 (02:31→23:21)
[2020-03-11] MEDS: OMEPRAZOLE 20 MG CAPSULE.DR GT SCH (06:34)
[2020-03-11] MEDS: BACLOFEN 20 MG TABLET GT SCH ×3 (06:34→22:24)
[2020-03-11] MEDS: MIDODRINE HCL 10 MG TABLET GT SCH ×3 (06:34→22:25)
[2020-03-11] MEDS: BACLOFEN 10 MG TABLET GT SCH ×3 (06:34→22:24)
[2020-03-11] MEDS: METOCLOPRAMIDE HCL 5 MG TABLET GT SCH ×3 (06:34→22:25)
[2020-03-11 08:01] VITALS: BP 121/74
[2020-03-11] MEDS: DESMOPRESSIN 0.1 MG TABLET GT SCH (08:01)
[2020-03-11] MEDS: levETIRAcetam 500 MG/5 ML LIQUID UDC GT SCH ×2 (08:02→20:22)
[2020-03-11] MEDS: PHENYTOIN 100 MG/4 ML UDC GT SCH ×2 (08:02→20:22)
[2020-03-11] MEDS: ACIDOPHILUS/BULGARICUS CHEW TAB GT SCH ×2 (08:02→20:22)
[2020-03-11] MEDS: FUROSEMIDE 20 MG/2 ML GT SCH (08:03)
[2020-03-11] MEDS: POTASSIUM CHLORIDE 40 MEQ/30 ML LIQUID UDC GT SCH (08:03)
[2020-03-11] MEDS: TRIAMCINOLONE ACET 0.1% CREAM 15 GM TUBE TP SCH ×2 (08:03→20:23)
[2020-03-11] MEDS: COD LIVER OIL/ZINC OXIDE OINT 113 GM TUBE TOP SCH ×2 (08:03→20:23)
[2020-03-11] MEDS: NYSTATIN CREAM 30 GM TUBE TP SCH ×2 (08:04→20:23)
[2020-03-11] MEDS: HYDROGEN PEROXIDE 3% 118 ML BOTTLE TP SCH ×2 (09:23→20:18)
--- NOTE | 2020-03-11 18:30 | NUR ---
PT GT FOUND OUT. REINSERTED PRN. GT PLACEMENT CONFIRMED. KUB DONE. PLACEMENT CONFIRMED. RESTARTED GT FEEDING. TOLERATING WELL.
[2020-03-11] MEDS: FOLIC ACID 1 MG TABLET GT SCH (20:22)
[2020-03-11] MEDS: THIAMINE HCL 100 MG TABLET GT SCH (20:23)
[2020-03-11] MEDS: CHOLECALCIFEROL 1,000 UNIT TABLET GT SCH (20:23)
--- NOTE | 2020-03-11 20:30 | NUR ---
bhatt catheter clogged and reinserted prn with Fr#20/10cc and was draining well to yellow colored urine with sediments noted. Addendum: 03/12/20 at 0639 by MAHOGANY KING LVN duplicate
--- NOTE | 2020-03-11 20:30 | NUR ---
bhatt catheter plugged and reinserted prn with Fr#20/10cc as ordered by .draining well to yellow colored urine with sediments noted. Addendum: 03/12/20 at 0637 by MAHOGANY KING LVN Amended: Links added.
[2020-03-11 22:55] VITALS: BP 108/63
[2020-03-12] MEDS: ALBUTEROL SULFATE 2.5 MG/3 ML NEBU NEB SCH ×6 (03:21→22:30)
[2020-03-12] MEDS: IPRATROPIUM BROMIDE 0.5 MG/2.5 ML NEBU NEB SCH ×6 (03:21→22:30)
[2020-03-12] MEDS: BACLOFEN 10 MG TABLET GT SCH ×3 (05:34→22:00)
[2020-03-12] MEDS: BACLOFEN 20 MG TABLET GT SCH ×3 (05:34→22:00)
[2020-03-12] MEDS: METOCLOPRAMIDE HCL 5 MG TABLET GT SCH ×3 (05:35→22:00)
[2020-03-12] MEDS: MIDODRINE HCL 10 MG TABLET GT SCH ×3 (05:35→22:00)
[2020-03-12] MEDS: OMEPRAZOLE 20 MG CAPSULE.DR GT SCH (05:35)
[2020-03-12 07:55] VITALS: BP 128/77
[2020-03-12] MEDS: DESMOPRESSIN 0.1 MG TABLET GT SCH (08:33)
[2020-03-12] MEDS: PHENYTOIN 100 MG/4 ML UDC GT SCH ×2 (08:33→20:34)
[2020-03-12] MEDS: levETIRAcetam 500 MG/5 ML LIQUID UDC GT SCH ×2 (08:33→20:35)
[2020-03-12] MEDS: ACIDOPHILUS/BULGARICUS CHEW TAB GT SCH ×2 (08:33→20:34)
[2020-03-12] MEDS: POTASSIUM CHLORIDE 40 MEQ/30 ML LIQUID UDC GT SCH (08:34)
[2020-03-12] MEDS: FUROSEMIDE 20 MG/2 ML GT SCH (08:34)
[2020-03-12] MEDS: NYSTATIN CREAM 30 GM TUBE TP SCH ×2 (08:35→20:36)
[2020-03-12] MEDS: TRIAMCINOLONE ACET 0.1% CREAM 15 GM TUBE TP SCH ×2 (08:35→20:36)
[2020-03-12] MEDS: COD LIVER OIL/ZINC OXIDE OINT 113 GM TUBE TOP SCH ×2 (08:35→20:36)
[2020-03-12] MEDS: HYDROGEN PEROXIDE 3% 118 ML BOTTLE TP SCH ×2 (09:36→20:37)
[2020-03-12] MEDS: VITAL AF 1.2 1,000 ML LIQUID GT SCH (17:17)
[2020-03-12] MEDS: THIAMINE HCL 100 MG TABLET GT SCH (20:35)
[2020-03-12] MEDS: FOLIC ACID 1 MG TABLET GT SCH (20:35)
[2020-03-12] MEDS: CHOLECALCIFEROL 1,000 UNIT TABLET GT SCH (20:36)
[2020-03-12 22:44] VITALS: BP 98/56
[2020-03-13] MEDS: ALBUTEROL SULFATE 2.5 MG/3 ML NEBU NEB SCH ×6 (02:30→22:30)
[2020-03-13] MEDS: IPRATROPIUM BROMIDE 0.5 MG/2.5 ML NEBU NEB SCH ×6 (02:30→22:30)
[2020-03-13] MEDS: MIDODRINE HCL 10 MG TABLET GT SCH ×3 (05:05→22:06)
[2020-03-13] MEDS: OMEPRAZOLE 20 MG CAPSULE.DR GT SCH (05:05)
[2020-03-13] MEDS: BACLOFEN 10 MG TABLET GT SCH ×3 (05:05→22:05)
[2020-03-13] MEDS: BACLOFEN 20 MG TABLET GT SCH ×3 (05:05→22:05)
[2020-03-13] MEDS: METOCLOPRAMIDE HCL 5 MG TABLET GT SCH ×3 (05:05→22:06)
[2020-03-13 07:25] VITALS: BP 95/54
[2020-03-13] MEDS: HYDROGEN PEROXIDE 3% 118 ML BOTTLE TP SCH ×2 (07:53→21:13)
[2020-03-13] MEDS: DESMOPRESSIN 0.1 MG TABLET GT SCH (09:08)
[2020-03-13] MEDS: ACIDOPHILUS/BULGARICUS CHEW TAB GT SCH ×2 (09:10→20:46)
[2020-03-13] MEDS: levETIRAcetam 500 MG/5 ML LIQUID UDC GT SCH ×2 (09:10→20:47)
[2020-03-13] MEDS: PHENYTOIN 100 MG/4 ML UDC GT SCH ×2 (09:10→20:45)
[2020-03-13] MEDS: FUROSEMIDE 20 MG/2 ML GT SCH (09:11)
[2020-03-13] MEDS: COD LIVER OIL/ZINC OXIDE OINT 113 GM TUBE TOP SCH ×2 (09:12→20:48)
[2020-03-13] MEDS: NYSTATIN CREAM 30 GM TUBE TP SCH ×2 (09:12→20:49)
[2020-03-13] MEDS: POTASSIUM CHLORIDE 40 MEQ/30 ML LIQUID UDC GT SCH (09:12)
[2020-03-13] MEDS: TRIAMCINOLONE ACET 0.1% CREAM 15 GM TUBE TP SCH ×2 (09:12→20:49)
--- NOTE | 2020-03-13 16:31 | NUR ---
Patient relative Zelda notified for covid test today.per [facility] requirements.
--- NOTE | 2020-03-13 20:00 | NUR ---
Received with a temperature of 94.4, skin is cool to touch, applied alexandru house at this time, no signs of any distress at this time, kept clean and comfortable. Addendum: 03/13/20 at 2211 by CLARA LEE RN Rechecked temperature and is now 97.5, no signs of any distress, kept clean and comfortable, will continue monitor.
[2020-03-13 20:16] VITALS: BP 92/63
[2020-03-13] MEDS: FOLIC ACID 1 MG TABLET GT SCH (20:46)
[2020-03-13] MEDS: THIAMINE HCL 100 MG TABLET GT SCH (20:47)
[2020-03-13] MEDS: CHOLECALCIFEROL 1,000 UNIT TABLET GT SCH (20:48)
[2020-03-14] MEDS: IPRATROPIUM BROMIDE 0.5 MG/2.5 ML NEBU NEB SCH ×6 (02:30→23:23)
[2020-03-14] MEDS: ALBUTEROL SULFATE 2.5 MG/3 ML NEBU NEB SCH ×6 (02:30→23:23)
[2020-03-14] MEDS: BACLOFEN 20 MG TABLET GT SCH ×3 (06:12→21:07)
[2020-03-14] MEDS: MIDODRINE HCL 10 MG TABLET GT SCH ×3 (06:12→21:07)
[2020-03-14] MEDS: BACLOFEN 10 MG TABLET GT SCH ×3 (06:12→21:07)
[2020-03-14] MEDS: OMEPRAZOLE 20 MG CAPSULE.DR GT SCH (06:13)
[2020-03-14] MEDS: METOCLOPRAMIDE HCL 5 MG TABLET GT SCH ×3 (06:13→21:07)
[2020-03-14 07:42] VITALS: BP 99/60
[2020-03-14] MEDS: HYDROGEN PEROXIDE 3% 118 ML BOTTLE TP SCH ×2 (08:18→20:33)
[2020-03-14] MEDS: DESMOPRESSIN 0.1 MG TABLET GT SCH (08:38)
[2020-03-14] MEDS: PHENYTOIN 100 MG/4 ML UDC GT SCH ×2 (08:38→20:41)
[2020-03-14] MEDS: FUROSEMIDE 20 MG/2 ML GT SCH (08:39)
[2020-03-14] MEDS: ACIDOPHILUS/BULGARICUS CHEW TAB GT SCH ×2 (08:39→20:41)
[2020-03-14] MEDS: levETIRAcetam 500 MG/5 ML LIQUID UDC GT SCH ×2 (08:39→20:42)
[2020-03-14] MEDS: COD LIVER OIL/ZINC OXIDE OINT 113 GM TUBE TOP SCH ×2 (08:40→20:43)
[2020-03-14] MEDS: TRIAMCINOLONE ACET 0.1% CREAM 15 GM TUBE TP SCH ×2 (08:40→20:43)
[2020-03-14] MEDS: POTASSIUM CHLORIDE 40 MEQ/30 ML LIQUID UDC GT SCH (08:40)
[2020-03-14] MEDS: NYSTATIN CREAM 30 GM TUBE TP SCH ×2 (08:41→20:43)
[2020-03-14] MEDS: VITAL AF 1.2 1,000 ML LIQUID GT SCH (17:05)
--- NOTE | 2020-03-14 20:00 | NUR ---
Patient relative Zelda notified covid 19 test results negative.
[2020-03-14 20:02] VITALS: BP 98/61
[2020-03-14] MEDS: CHOLECALCIFEROL 1,000 UNIT TABLET GT SCH (20:42)
[2020-03-14] MEDS: FOLIC ACID 1 MG TABLET GT SCH (20:42)
[2020-03-14] MEDS: THIAMINE HCL 100 MG TABLET GT SCH (20:45)
[2020-03-15] MEDS: IPRATROPIUM BROMIDE 0.5 MG/2.5 ML NEBU NEB SCH ×6 (03:10→23:09)
[2020-03-15] MEDS: ALBUTEROL SULFATE 2.5 MG/3 ML NEBU NEB SCH ×6 (03:10→23:09)
[2020-03-15] MEDS: METOCLOPRAMIDE HCL 5 MG TABLET GT SCH ×3 (05:26→22:38)
[2020-03-15] MEDS: OMEPRAZOLE 20 MG CAPSULE.DR GT SCH (05:26)
[2020-03-15] MEDS: BACLOFEN 20 MG TABLET GT SCH ×3 (05:26→22:38)
[2020-03-15] MEDS: BACLOFEN 10 MG TABLET GT SCH ×3 (05:26→22:38)
[2020-03-15] MEDS: MIDODRINE HCL 10 MG TABLET GT SCH ×3 (05:26→22:38)
[2020-03-15] MEDS: HYDROGEN PEROXIDE 3% 118 ML BOTTLE TP SCH ×2 (07:06→20:27)
[2020-03-15 07:43] VITALS: BP 103/61
[2020-03-15] MEDS: levETIRAcetam 500 MG/5 ML LIQUID UDC GT SCH ×2 (09:07→20:31)
[2020-03-15] MEDS: COD LIVER OIL/ZINC OXIDE OINT 113 GM TUBE TOP SCH ×2 (09:07→20:31)
[2020-03-15] MEDS: POTASSIUM CHLORIDE 40 MEQ/30 ML LIQUID UDC GT SCH (09:07)
[2020-03-15] MEDS: ACIDOPHILUS/BULGARICUS CHEW TAB GT SCH ×2 (09:07→20:29)
[2020-03-15] MEDS: PHENYTOIN 100 MG/4 ML UDC GT SCH ×2 (09:07→20:29)
[2020-03-15] MEDS: FUROSEMIDE 20 MG/2 ML GT SCH (09:07)
[2020-03-15] MEDS: DESMOPRESSIN 0.1 MG TABLET GT SCH (09:07)
[2020-03-15] MEDS: TRIAMCINOLONE ACET 0.1% CREAM 15 GM TUBE TP SCH ×2 (09:07→20:32)
[2020-03-15] MEDS: NYSTATIN CREAM 30 GM TUBE TP SCH ×2 (09:08→20:32)
[2020-03-15 20:00] VITALS: BP 103/63
[2020-03-15] MEDS: FOLIC ACID 1 MG TABLET GT SCH (20:29)
[2020-03-15] MEDS: CHOLECALCIFEROL 1,000 UNIT TABLET GT SCH (20:31)
[2020-03-15] MEDS: THIAMINE HCL 100 MG TABLET GT SCH (20:31)
[2020-03-16] MEDS: IPRATROPIUM BROMIDE 0.5 MG/2.5 ML NEBU NEB SCH ×6 (03:06→23:10)
[2020-03-16] MEDS: ALBUTEROL SULFATE 2.5 MG/3 ML NEBU NEB SCH ×6 (03:06→23:10)
[2020-03-16] MEDS: BACLOFEN 10 MG TABLET GT SCH ×3 (05:15→21:10)
[2020-03-16] MEDS: BACLOFEN 20 MG TABLET GT SCH ×3 (05:15→21:11)
[2020-03-16] MEDS: MIDODRINE HCL 10 MG TABLET GT SCH ×3 (05:16→21:12)
[2020-03-16] MEDS: OMEPRAZOLE 20 MG CAPSULE.DR GT SCH (05:16)
[2020-03-16] MEDS: METOCLOPRAMIDE HCL 5 MG TABLET GT SCH ×3 (05:16→21:12)
[2020-03-16] MEDS: HYDROGEN PEROXIDE 3% 118 ML BOTTLE TP SCH ×2 (07:10→20:56)
[2020-03-16 07:41] VITALS: BP 103/62
[2020-03-16] MEDS: DESMOPRESSIN 0.1 MG TABLET GT SCH (09:32)
[2020-03-16] MEDS: PHENYTOIN 100 MG/4 ML UDC GT SCH ×2 (09:32→21:09)
[2020-03-16] MEDS: ACIDOPHILUS/BULGARICUS CHEW TAB GT SCH ×2 (09:32→21:09)
[2020-03-16] MEDS: levETIRAcetam 500 MG/5 ML LIQUID UDC GT SCH ×2 (09:33→21:09)
[2020-03-16] MEDS: COD LIVER OIL/ZINC OXIDE OINT 113 GM TUBE TOP SCH ×2 (09:34→21:10)
[2020-03-16] MEDS: NYSTATIN CREAM 30 GM TUBE TP SCH ×2 (09:34→21:10)
[2020-03-16] MEDS: FUROSEMIDE 20 MG/2 ML GT SCH (09:34)
[2020-03-16] MEDS: TRIAMCINOLONE ACET 0.1% CREAM 15 GM TUBE TP SCH ×2 (09:34→21:10)
[2020-03-16] MEDS: POTASSIUM CHLORIDE 40 MEQ/30 ML LIQUID UDC GT SCH (09:34)
[2020-03-16 20:00] VITALS: BP 100/56
--- NOTE | 2020-03-16 21:00 | NUR ---
academic guidance specialist reported pt has close blister on (L) upper thigh noted.keep cleanse and dry continue monitor.
[2020-03-16] MEDS: THIAMINE HCL 100 MG TABLET GT SCH (21:09)
[2020-03-16] MEDS: FOLIC ACID 1 MG TABLET GT SCH (21:09)
[2020-03-16] MEDS: CHOLECALCIFEROL 1,000 UNIT TABLET GT SCH (21:10)
[2020-03-17] MEDS: ALBUTEROL SULFATE 2.5 MG/3 ML NEBU NEB SCH ×6 (03:12→22:30)
[2020-03-17] MEDS: IPRATROPIUM BROMIDE 0.5 MG/2.5 ML NEBU NEB SCH ×6 (03:12→22:30)
[2020-03-17] MEDS: BACLOFEN 20 MG TABLET GT SCH ×3 (05:28→21:54)
[2020-03-17] MEDS: OMEPRAZOLE 20 MG CAPSULE.DR GT SCH (05:28)
[2020-03-17] MEDS: METOCLOPRAMIDE HCL 5 MG TABLET GT SCH ×3 (05:28→21:54)
[2020-03-17] MEDS: BACLOFEN 10 MG TABLET GT SCH ×3 (05:28→21:54)
[2020-03-17] MEDS: MIDODRINE HCL 10 MG TABLET GT SCH ×3 (06:00→21:54)
[2020-03-17] MEDS: HYDROGEN PEROXIDE 3% 118 ML BOTTLE TP SCH ×2 (07:35→21:32)
[2020-03-17 07:50] VITALS: BP 100/51
[2020-03-17] MEDS: DESMOPRESSIN 0.1 MG TABLET GT SCH (08:17)
[2020-03-17] MEDS: PHENYTOIN 100 MG/4 ML UDC GT SCH ×2 (08:18→20:53)
[2020-03-17] MEDS: ACIDOPHILUS/BULGARICUS CHEW TAB GT SCH ×2 (08:21→20:46)
[2020-03-17] MEDS: levETIRAcetam 500 MG/5 ML LIQUID UDC GT SCH ×2 (08:21→20:52)
[2020-03-17] MEDS: FUROSEMIDE 20 MG/2 ML GT SCH (08:22)
[2020-03-17] MEDS: POTASSIUM CHLORIDE 40 MEQ/30 ML LIQUID UDC GT SCH (08:22)
[2020-03-17] MEDS: NYSTATIN CREAM 30 GM TUBE TP SCH ×2 (08:23→21:02)
[2020-03-17] MEDS: COD LIVER OIL/ZINC OXIDE OINT 113 GM TUBE TOP SCH ×2 (08:23→20:48)
[2020-03-17] MEDS: TRIAMCINOLONE ACET 0.1% CREAM 15 GM TUBE TP SCH ×2 (08:23→21:02)
--- NOTE | 2020-03-17 09:35 | NUR ---
SEEN BY DR. HALL AND AWARE OF WT. GAIN IN A MONTH OF OF 7# AND NNO.
[2020-03-17] MEDS: FOLIC ACID 1 MG TABLET GT SCH (20:47)
[2020-03-17] MEDS: THIAMINE HCL 100 MG TABLET GT SCH (20:48)
[2020-03-17] MEDS: CHOLECALCIFEROL 1,000 UNIT TABLET GT SCH (20:49)
[2020-03-17 22:00] VITALS: BP 104/66
[2020-03-18] MEDS: IPRATROPIUM BROMIDE 0.5 MG/2.5 ML NEBU NEB SCH ×6 (02:30→22:30)
[2020-03-18] MEDS: ALBUTEROL SULFATE 2.5 MG/3 ML NEBU NEB SCH ×6 (02:30→22:30)
[2020-03-18] MEDS: BACLOFEN 20 MG TABLET GT SCH ×3 (05:26→21:03)
[2020-03-18] MEDS: BACLOFEN 10 MG TABLET GT SCH ×3 (05:26→21:03)
[2020-03-18] MEDS: MIDODRINE HCL 10 MG TABLET GT SCH ×3 (05:27→21:03)
[2020-03-18] MEDS: METOCLOPRAMIDE HCL 5 MG TABLET GT SCH ×3 (05:28→21:03)
[2020-03-18] MEDS: OMEPRAZOLE 20 MG CAPSULE.DR GT SCH (05:28)
[2020-03-18] MEDS: HYDROGEN PEROXIDE 3% 118 ML BOTTLE TP SCH ×2 (07:32→21:03)
[2020-03-18 08:04] VITALS: BP 126/66
[2020-03-18] MEDS: levETIRAcetam 500 MG/5 ML LIQUID UDC GT SCH ×2 (09:00→21:02)
[2020-03-18] MEDS: PHENYTOIN 100 MG/4 ML UDC GT SCH ×2 (09:00→21:02)
[2020-03-18] MEDS: ACIDOPHILUS/BULGARICUS CHEW TAB GT SCH ×2 (09:00→21:02)
[2020-03-18] MEDS: DESMOPRESSIN 0.1 MG TABLET GT SCH (09:00)
[2020-03-18] MEDS: FUROSEMIDE 20 MG/2 ML GT SCH (09:00)
[2020-03-18] MEDS: POTASSIUM CHLORIDE 40 MEQ/30 ML LIQUID UDC GT SCH (09:00)
[2020-03-18] MEDS: COD LIVER OIL/ZINC OXIDE OINT 113 GM TUBE TOP SCH ×2 (09:00→21:03)
[2020-03-18] MEDS: NYSTATIN CREAM 30 GM TUBE TP SCH ×2 (09:01→21:03)
[2020-03-18] MEDS: TRIAMCINOLONE ACET 0.1% CREAM 15 GM TUBE TP SCH ×2 (09:01→21:03)
[2020-03-18 20:00] VITALS: BP 97/57
[2020-03-18] MEDS: FOLIC ACID 1 MG TABLET GT SCH (21:02)
[2020-03-18] MEDS: CHOLECALCIFEROL 1,000 UNIT TABLET GT SCH (21:02)
[2020-03-18] MEDS: THIAMINE HCL 100 MG TABLET GT SCH (21:02)
--- NOTE | 2020-03-18 22:40 | NUR ---
Seen and examined by LUBNA Gonzalez with No new orders.
[2020-03-19] MEDS: ALBUTEROL SULFATE 2.5 MG/3 ML NEBU NEB SCH ×6 (02:30→22:30)
[2020-03-19] MEDS: IPRATROPIUM BROMIDE 0.5 MG/2.5 ML NEBU NEB SCH ×6 (02:30→22:30)
[2020-03-19] MEDS: OMEPRAZOLE 20 MG CAPSULE.DR GT SCH (05:06)
[2020-03-19] MEDS: MIDODRINE HCL 10 MG TABLET GT SCH ×3 (05:06→21:46)
[2020-03-19] MEDS: BACLOFEN 20 MG TABLET GT SCH ×3 (05:06→21:45)
[2020-03-19] MEDS: METOCLOPRAMIDE HCL 5 MG TABLET GT SCH ×3 (05:06→21:45)
[2020-03-19] MEDS: BACLOFEN 10 MG TABLET GT SCH ×3 (05:06→21:45)
[2020-03-19 07:48] VITALS: BP 99/54
[2020-03-19] MEDS: FUROSEMIDE 20 MG/2 ML GT SCH (08:25)
[2020-03-19] MEDS: PHENYTOIN 100 MG/4 ML UDC GT SCH ×2 (08:25→20:37)
[2020-03-19] MEDS: TRIAMCINOLONE ACET 0.1% CREAM 15 GM TUBE TP SCH ×2 (08:25→20:38)
[2020-03-19] MEDS: NYSTATIN CREAM 30 GM TUBE TP SCH ×2 (08:25→20:38)
[2020-03-19] MEDS: DESMOPRESSIN 0.1 MG TABLET GT SCH (08:25)
[2020-03-19] MEDS: ACIDOPHILUS/BULGARICUS CHEW TAB GT SCH ×2 (08:25→20:38)
[2020-03-19] MEDS: levETIRAcetam 500 MG/5 ML LIQUID UDC GT SCH ×2 (08:25→20:38)
[2020-03-19] MEDS: POTASSIUM CHLORIDE 40 MEQ/30 ML LIQUID UDC GT SCH (08:25)
[2020-03-19] MEDS: COD LIVER OIL/ZINC OXIDE OINT 113 GM TUBE TOP SCH ×2 (08:25→20:38)
[2020-03-19] MEDS: HYDROGEN PEROXIDE 3% 118 ML BOTTLE TP SCH ×2 (09:00→21:26)
[2020-03-19 20:33] VITALS: BP 100/58
[2020-03-19] MEDS: FOLIC ACID 1 MG TABLET GT SCH (20:38)
[2020-03-19] MEDS: CHOLECALCIFEROL 1,000 UNIT TABLET GT SCH (20:38)
[2020-03-19] MEDS: THIAMINE HCL 100 MG TABLET GT SCH (20:38)
[2020-03-20] MEDS: ALBUTEROL SULFATE 2.5 MG/3 ML NEBU NEB SCH ×6 (02:30→23:16)
[2020-03-20] MEDS: IPRATROPIUM BROMIDE 0.5 MG/2.5 ML NEBU NEB SCH ×6 (02:30→23:16)
[2020-03-20] MEDS: BACLOFEN 10 MG TABLET GT SCH ×3 (05:32→21:29)
[2020-03-20] MEDS: OMEPRAZOLE 20 MG CAPSULE.DR GT SCH (05:32)
[2020-03-20] MEDS: METOCLOPRAMIDE HCL 5 MG TABLET GT SCH ×3 (05:32→21:29)
[2020-03-20] MEDS: BACLOFEN 20 MG TABLET GT SCH ×3 (05:32→21:29)
[2020-03-20] MEDS: MIDODRINE HCL 10 MG TABLET GT SCH ×3 (05:33→21:29)
[2020-03-20 06:27] LABS: BASOPHILS # (AUTO) 0.1 K/uL (0.0-8.0); BASOPHILS % (AUTO) 0.5 % (0.0-2.0); EOSINOPHILS # (AUTO) 0.6 K/uL (0.0-0.7); EOSINOPHILS % (AUTO) 5.2 % (0.0-7.0); HEMATOCRIT 28.3 % (31.2-41.9); LYMPHOCYTES # (AUTO) 1.9 K/uL (20.0-40.0); LYMPHOCYTES % (AUTO) 17.9 % (20.5-51.5); MEAN CORPUSCULAR HEMOGLOBIN 32.7 uug (24.7-32.8); MEAN CORPUSCULAR HGB CONC 35 g/dL (32.3-35.6); MEAN CORPUSCULAR VOLUME 92.6 fL (75.5-95.3); MONOCYTES # (AUTO) 0.6 K/uL (2.0-10.0); MONOCYTES % (AUTO) 5.3 % (0.0-11.0); NEUTROPHILS # (AUTO) 7.6 K/uL (1.8-8.9); NEUTROPHILS % (AUTO) 71.1 % (38.5-71.5); PLATELET COUNT (AUTO) 268 K/uL (179-408); RED BLOOD CELL COUNT(AUTO) 3.06 MIL/uL (3.63-4.92); WHITE BLOOD COUNT (AUTO) 10.7 K/uL (3.8-11.8)
[2020-03-20 06:40] LABS: CREATININE 0.6 mg/dL (0.6-1.3); MAGNESIUM 1.9 mg/dL (1.8-2.4); PHOSPHOROUS 3.2 mg/dL (2.5-4.9); POTASSIUM 3.4 mmol/L (3.5-5.1)
[2020-03-20 07:22] VITALS: BP 112/61
[2020-03-20] MEDS: PHENYTOIN 100 MG/4 ML UDC GT SCH ×2 (08:22→21:27)
[2020-03-20] MEDS: ACIDOPHILUS/BULGARICUS CHEW TAB GT SCH ×2 (08:22→21:27)
[2020-03-20] MEDS: DESMOPRESSIN 0.1 MG TABLET GT SCH (08:22)
[2020-03-20] MEDS: levETIRAcetam 500 MG/5 ML LIQUID UDC GT SCH ×2 (08:22→21:28)
[2020-03-20] MEDS: POTASSIUM CHLORIDE 40 MEQ/30 ML LIQUID UDC GT SCH (08:24)
[2020-03-20] MEDS: FUROSEMIDE 20 MG/2 ML GT SCH (08:24)
[2020-03-20] MEDS: NYSTATIN CREAM 30 GM TUBE TP SCH ×2 (08:25→21:29)
[2020-03-20] MEDS: COD LIVER OIL/ZINC OXIDE OINT 113 GM TUBE TOP SCH ×2 (08:25→21:29)
[2020-03-20] MEDS: TRIAMCINOLONE ACET 0.1% CREAM 15 GM TUBE TP SCH ×2 (08:25→21:29)
[2020-03-20] MEDS: HYDROGEN PEROXIDE 3% 118 ML BOTTLE TP SCH ×2 (09:44→21:06)
--- NOTE | 2020-03-20 14:00 | NUR ---
Seen and examined by Marguerite Chicas with new orders noted.
--- NOTE | 2020-03-20 19:40 | NUR ---
PT RECEIVED ON CONTINUOUS VENT, TRACH CARE DONE. TRACH IN PLACED AND SECURED WITH TRACH TIE. BACK-UP TRACH AND AMBU BAG AT BEDSIDE . IN LINE TX GIVEN WITH UD ALBUTEROL+ UD ATROVENT ORDERED. BS MILD RHONCHI. SUCTION SMALL AMOUNT THICK PALE YELLOW SECRETIONS. VENT CHECKED, ALARMS WORKING WELL AND AUDIBLE, NO DISTRESS NOTED AT THIS TIME. WILL CONTINUE TO MONITOR.
[2020-03-20] MEDS: FOLIC ACID 1 MG TABLET GT SCH (21:27)
[2020-03-20] MEDS: THIAMINE HCL 100 MG TABLET GT SCH (21:28)
[2020-03-20] MEDS: CHOLECALCIFEROL 1,000 UNIT TABLET GT SCH (21:29)
[2020-03-20 23:17] VITALS: BP 98/58
[2020-03-21] MEDS: ALBUTEROL SULFATE 2.5 MG/3 ML NEBU NEB SCH ×6 (03:02→22:40)
[2020-03-21] MEDS: IPRATROPIUM BROMIDE 0.5 MG/2.5 ML NEBU NEB SCH ×6 (03:02→22:40)
[2020-03-21] MEDS: BACLOFEN 20 MG TABLET GT SCH ×3 (05:12→22:21)
[2020-03-21] MEDS: BACLOFEN 10 MG TABLET GT SCH ×3 (05:12→22:21)
[2020-03-21] MEDS: METOCLOPRAMIDE HCL 5 MG TABLET GT SCH ×3 (05:13→22:22)
[2020-03-21] MEDS: MIDODRINE HCL 10 MG TABLET GT SCH ×3 (05:13→22:22)
[2020-03-21] MEDS: OMEPRAZOLE 20 MG CAPSULE.DR GT SCH (05:13)
[2020-03-21] MEDS: HYDROGEN PEROXIDE 3% 118 ML BOTTLE TP SCH ×2 (07:15→19:09)
[2020-03-21 07:45] VITALS: BP 101/64
[2020-03-21] MEDS: PHENYTOIN 100 MG/4 ML UDC GT SCH ×2 (08:20→20:11)
[2020-03-21] MEDS: DESMOPRESSIN 0.1 MG TABLET GT SCH (08:20)
[2020-03-21] MEDS: ACIDOPHILUS/BULGARICUS CHEW TAB GT SCH ×2 (08:20→20:11)
[2020-03-21] MEDS: levETIRAcetam 500 MG/5 ML LIQUID UDC GT SCH ×2 (08:20→20:12)
[2020-03-21] MEDS: POTASSIUM CHLORIDE 40 MEQ/30 ML LIQUID UDC GT SCH (08:21)
[2020-03-21] MEDS: TRIAMCINOLONE ACET 0.1% CREAM 15 GM TUBE TP SCH ×2 (08:21→20:13)
[2020-03-21] MEDS: FUROSEMIDE 20 MG/2 ML GT SCH (08:21)
[2020-03-21] MEDS: COD LIVER OIL/ZINC OXIDE OINT 113 GM TUBE TOP SCH ×2 (08:21→20:13)
[2020-03-21] MEDS: NYSTATIN CREAM 30 GM TUBE TP SCH ×2 (08:21→20:13)
[2020-03-21] MEDS: FOLIC ACID 1 MG TABLET GT SCH (20:12)
[2020-03-21] MEDS: CHOLECALCIFEROL 1,000 UNIT TABLET GT SCH (20:13)
[2020-03-21] MEDS: THIAMINE HCL 100 MG TABLET GT SCH (20:13)
[2020-03-21 22:02] VITALS: BP 109/64
[2020-03-22] MEDS: ALBUTEROL SULFATE 2.5 MG/3 ML NEBU NEB SCH ×6 (02:40→22:40)
[2020-03-22] MEDS: IPRATROPIUM BROMIDE 0.5 MG/2.5 ML NEBU NEB SCH ×6 (02:40→22:40)
[2020-03-22] MEDS: MIDODRINE HCL 10 MG TABLET GT SCH ×3 (05:11→21:13)
[2020-03-22] MEDS: OMEPRAZOLE 20 MG CAPSULE.DR GT SCH (05:11)
[2020-03-22] MEDS: BACLOFEN 20 MG TABLET GT SCH ×3 (05:11→21:11)
[2020-03-22] MEDS: BACLOFEN 10 MG TABLET GT SCH ×3 (05:11→21:11)
[2020-03-22] MEDS: METOCLOPRAMIDE HCL 5 MG TABLET GT SCH ×3 (05:12→21:12)
[2020-03-22 08:00] VITALS: BP 124/81
[2020-03-22] MEDS: PHENYTOIN 100 MG/4 ML UDC GT SCH ×2 (08:14→20:31)
[2020-03-22] MEDS: DESMOPRESSIN 0.1 MG TABLET GT SCH (08:14)
[2020-03-22] MEDS: ACIDOPHILUS/BULGARICUS CHEW TAB GT SCH ×2 (08:14→20:31)
[2020-03-22] MEDS: POTASSIUM CHLORIDE 40 MEQ/30 ML LIQUID UDC GT SCH (08:14)
[2020-03-22] MEDS: levETIRAcetam 500 MG/5 ML LIQUID UDC GT SCH ×2 (08:14→20:31)
[2020-03-22] MEDS: COD LIVER OIL/ZINC OXIDE OINT 113 GM TUBE TOP SCH ×2 (08:14→20:31)
[2020-03-22] MEDS: NYSTATIN CREAM 30 GM TUBE TP SCH ×2 (08:14→20:31)
[2020-03-22] MEDS: TRIAMCINOLONE ACET 0.1% CREAM 15 GM TUBE TP SCH ×2 (08:14→20:31)
[2020-03-22] MEDS: FUROSEMIDE 20 MG/2 ML GT SCH (08:14)
[2020-03-22] MEDS: HYDROGEN PEROXIDE 3% 118 ML BOTTLE TP SCH ×2 (09:20→19:17)
[2020-03-22] MEDS: VITAL AF 1.2 1,000 ML LIQUID GT SCH (14:37)
[2020-03-22 20:00] VITALS: BP 124/73
[2020-03-22] MEDS: FOLIC ACID 1 MG TABLET GT SCH (20:31)
[2020-03-22] MEDS: CHOLECALCIFEROL 1,000 UNIT TABLET GT SCH (20:31)
[2020-03-22] MEDS: THIAMINE HCL 100 MG TABLET GT SCH (20:31)
[2020-03-23] MEDS: ALBUTEROL SULFATE 2.5 MG/3 ML NEBU NEB SCH ×6 (02:31→23:01)
[2020-03-23] MEDS: IPRATROPIUM BROMIDE 0.5 MG/2.5 ML NEBU NEB SCH ×6 (02:31→23:01)
[2020-03-23] MEDS: BACLOFEN 10 MG TABLET GT SCH ×3 (05:08→21:11)
[2020-03-23] MEDS: BACLOFEN 20 MG TABLET GT SCH ×3 (05:08→21:11)
[2020-03-23] MEDS: METOCLOPRAMIDE HCL 5 MG TABLET GT SCH ×3 (05:10→21:12)
[2020-03-23] MEDS: MIDODRINE HCL 10 MG TABLET GT SCH ×3 (05:10→21:12)
[2020-03-23] MEDS: OMEPRAZOLE 20 MG CAPSULE.DR GT SCH (05:10)
[2020-03-23 07:50] VITALS: BP 88/60
[2020-03-23] MEDS: ACIDOPHILUS/BULGARICUS CHEW TAB GT SCH ×2 (08:07→20:26)
[2020-03-23] MEDS: DESMOPRESSIN 0.1 MG TABLET GT SCH (08:07)
[2020-03-23] MEDS: levETIRAcetam 500 MG/5 ML LIQUID UDC GT SCH ×2 (08:07→20:26)
[2020-03-23] MEDS: PHENYTOIN 100 MG/4 ML UDC GT SCH ×2 (08:07→20:26)
[2020-03-23] MEDS: FUROSEMIDE 20 MG/2 ML GT SCH (08:11)
[2020-03-23] MEDS: TRIAMCINOLONE ACET 0.1% CREAM 15 GM TUBE TP SCH ×2 (08:11→20:26)
[2020-03-23] MEDS: POTASSIUM CHLORIDE 40 MEQ/30 ML LIQUID UDC GT SCH (08:11)
[2020-03-23] MEDS: COD LIVER OIL/ZINC OXIDE OINT 113 GM TUBE TOP SCH ×2 (08:11→20:26)
[2020-03-23] MEDS: NYSTATIN CREAM 30 GM TUBE TP SCH ×2 (08:12→20:26)
[2020-03-23 08:30] VITALS: BP 101/63
[2020-03-23] MEDS: HYDROGEN PEROXIDE 3% 118 ML BOTTLE TP SCH ×2 (08:48→21:11)
[2020-03-23] MEDS: VITAL AF 1.2 1,000 ML LIQUID GT SCH (14:25)
[2020-03-23 20:00] VITALS: BP 105/67
[2020-03-23] MEDS: CHOLECALCIFEROL 1,000 UNIT TABLET GT SCH (20:26)
[2020-03-23] MEDS: THIAMINE HCL 100 MG TABLET GT SCH (20:26)
[2020-03-23] MEDS: FOLIC ACID 1 MG TABLET GT SCH (20:26)
[2020-03-24] MEDS: ALBUTEROL SULFATE 2.5 MG/3 ML NEBU NEB SCH ×6 (03:21→22:31)
[2020-03-24] MEDS: IPRATROPIUM BROMIDE 0.5 MG/2.5 ML NEBU NEB SCH ×6 (03:21→22:31)
[2020-03-24] MEDS: BACLOFEN 20 MG TABLET GT SCH ×3 (05:18→21:01)
[2020-03-24] MEDS: BACLOFEN 10 MG TABLET GT SCH ×3 (05:18→21:01)
[2020-03-24] MEDS: OMEPRAZOLE 20 MG CAPSULE.DR GT SCH (05:19)
[2020-03-24] MEDS: METOCLOPRAMIDE HCL 5 MG TABLET GT SCH ×3 (05:19→21:01)
[2020-03-24] MEDS: MIDODRINE HCL 10 MG TABLET GT SCH ×3 (05:19→21:01)
[2020-03-24 08:10] VITALS: BP 128/62
[2020-03-24] MEDS: PHENYTOIN 100 MG/4 ML UDC GT SCH ×2 (09:19→20:12)
[2020-03-24] MEDS: DESMOPRESSIN 0.1 MG TABLET GT SCH (09:19)
[2020-03-24] MEDS: ACIDOPHILUS/BULGARICUS CHEW TAB GT SCH ×2 (09:20→20:12)
[2020-03-24] MEDS: levETIRAcetam 500 MG/5 ML LIQUID UDC GT SCH ×2 (09:21→20:12)
[2020-03-24] MEDS: FUROSEMIDE 20 MG/2 ML GT SCH (09:22)
[2020-03-24] MEDS: COD LIVER OIL/ZINC OXIDE OINT 113 GM TUBE TOP SCH ×2 (09:23→20:12)
[2020-03-24] MEDS: POTASSIUM CHLORIDE 40 MEQ/30 ML LIQUID UDC GT SCH (09:23)
[2020-03-24] MEDS: NYSTATIN CREAM 30 GM TUBE TP SCH ×2 (09:23→20:12)
[2020-03-24] MEDS: TRIAMCINOLONE ACET 0.1% CREAM 15 GM TUBE TP SCH ×2 (09:23→20:12)
[2020-03-24] MEDS: HYDROGEN PEROXIDE 3% 118 ML BOTTLE TP SCH ×2 (09:34→20:52)
[2020-03-24] MEDS: VITAL AF 1.2 1,000 ML LIQUID GT SCH (12:02)
[2020-03-24 20:00] VITALS: BP 105/56
[2020-03-24] MEDS: FOLIC ACID 1 MG TABLET GT SCH (20:12)
[2020-03-24] MEDS: THIAMINE HCL 100 MG TABLET GT SCH (20:12)
[2020-03-24] MEDS: CHOLECALCIFEROL 1,000 UNIT TABLET GT SCH (20:12)
[2020-03-25] MEDS: ALBUTEROL SULFATE 2.5 MG/3 ML NEBU NEB SCH ×6 (02:30→22:30)
[2020-03-25] MEDS: IPRATROPIUM BROMIDE 0.5 MG/2.5 ML NEBU NEB SCH ×6 (02:30→22:30)
[2020-03-25] MEDS: OMEPRAZOLE 20 MG CAPSULE.DR GT SCH (05:40)
[2020-03-25] MEDS: MIDODRINE HCL 10 MG TABLET GT SCH ×3 (05:40→21:31)
[2020-03-25] MEDS: BACLOFEN 10 MG TABLET GT SCH ×3 (05:40→21:31)
[2020-03-25] MEDS: BACLOFEN 20 MG TABLET GT SCH ×3 (05:40→21:31)
[2020-03-25] MEDS: METOCLOPRAMIDE HCL 5 MG TABLET GT SCH ×3 (05:40→21:31)
[2020-03-25] MEDS: HYDROGEN PEROXIDE 3% 118 ML BOTTLE TP SCH ×2 (07:36→21:27)
[2020-03-25 07:50] VITALS: BP 95/54
[2020-03-25] MEDS: NYSTATIN CREAM 30 GM TUBE TP SCH ×2 (08:07→20:26)
[2020-03-25] MEDS: FUROSEMIDE 20 MG/2 ML GT SCH (08:07)
[2020-03-25] MEDS: PHENYTOIN 100 MG/4 ML UDC GT SCH ×2 (08:07→20:26)
[2020-03-25] MEDS: DESMOPRESSIN 0.1 MG TABLET GT SCH (08:07)
[2020-03-25] MEDS: levETIRAcetam 500 MG/5 ML LIQUID UDC GT SCH ×2 (08:07→20:26)
[2020-03-25] MEDS: ACIDOPHILUS/BULGARICUS CHEW TAB GT SCH ×2 (08:07→20:26)
[2020-03-25] MEDS: POTASSIUM CHLORIDE 40 MEQ/30 ML LIQUID UDC GT SCH (08:07)
[2020-03-25] MEDS: TRIAMCINOLONE ACET 0.1% CREAM 15 GM TUBE TP SCH ×2 (08:07→20:26)
[2020-03-25] MEDS: COD LIVER OIL/ZINC OXIDE OINT 113 GM TUBE TOP SCH ×2 (08:07→20:26)
[2020-03-25 08:43] LABS: BASOPHILS # (AUTO) 0.1 K/uL (0.0-8.0); BASOPHILS % (AUTO) 1.3 % (0.0-2.0); EOSINOPHILS # (AUTO) 0.5 K/uL (0.0-0.7); EOSINOPHILS % (AUTO) 8.7 % (0.0-7.0); HEMATOCRIT 28.6 % (31.2-41.9); HEMOGLOBIN 9.9 g/dL (10.9-14.3); LYMPHOCYTES % (AUTO) 36.8 % (20.5-51.5); MEAN CORPUSCULAR HGB CONC 35 g/dL (32.3-35.6); MEAN CORPUSCULAR VOLUME 92.3 fL (75.5-95.3); MONOCYTES # (AUTO) 0.4 K/uL (2.0-10.0); MONOCYTES % (AUTO) 7.2 % (0.0-11.0); NEUTROPHILS # (AUTO) 2.4 K/uL (1.8-8.9); PLATELET COUNT (AUTO) 347 K/uL (179-408); WHITE BLOOD COUNT (AUTO) 5.3 K/uL (3.8-11.8)
[2020-03-25 08:55] LABS: CREATININE 0.6 mg/dL (0.6-1.3); MAGNESIUM 1.9 mg/dL (1.8-2.4); PHOSPHOROUS 4.1 mg/dL (2.5-4.9); POTASSIUM 3.7 mmol/L (3.5-5.1)
[2020-03-25] MEDS: VITAL AF 1.2 1,000 ML LIQUID GT SCH (12:18)
[2020-03-25] MEDS: THIAMINE HCL 100 MG TABLET GT SCH (20:26)
[2020-03-25] MEDS: CHOLECALCIFEROL 1,000 UNIT TABLET GT SCH (20:26)
[2020-03-25] MEDS: FOLIC ACID 1 MG TABLET GT SCH (20:26)
[2020-03-26] MEDS: ALBUTEROL SULFATE 2.5 MG/3 ML NEBU NEB SCH ×6 (02:30→22:30)
[2020-03-26] MEDS: IPRATROPIUM BROMIDE 0.5 MG/2.5 ML NEBU NEB SCH ×6 (02:30→22:30)
[2020-03-26] MEDS: BACLOFEN 10 MG TABLET GT SCH ×3 (05:16→22:04)
[2020-03-26] MEDS: BACLOFEN 20 MG TABLET GT SCH ×3 (05:16→22:04)
[2020-03-26] MEDS: MIDODRINE HCL 10 MG TABLET GT SCH ×3 (05:17→22:00)
[2020-03-26] MEDS: OMEPRAZOLE 20 MG CAPSULE.DR GT SCH (05:17)
[2020-03-26] MEDS: METOCLOPRAMIDE HCL 5 MG TABLET GT SCH ×3 (05:17→22:05)
[2020-03-26 06:57] LABS: BASOPHILS # (AUTO) 0.1 K/uL (0.0-8.0); BASOPHILS % (AUTO) 1.2 % (0.0-2.0); EOSINOPHILS # (AUTO) 0.5 K/uL (0.0-0.7); EOSINOPHILS % (AUTO) 7.7 % (0.0-7.0); HEMATOCRIT 30.5 % (31.2-41.9); HEMOGLOBIN 10.5 g/dL (10.9-14.3); LYMPHOCYTES % (AUTO) 30.8 % (20.5-51.5); MEAN CORPUSCULAR HEMOGLOBIN 31.4 uug (24.7-32.8); MEAN CORPUSCULAR HGB CONC 34 g/dL (32.3-35.6); MEAN CORPUSCULAR VOLUME 91.7 fL (75.5-95.3); MONOCYTES # (AUTO) 0.4 K/uL (2.0-10.0); MONOCYTES % (AUTO) 5.6 % (0.0-11.0); NEUTROPHILS # (AUTO) 3.6 K/uL (1.8-8.9); NEUTROPHILS % (AUTO) 54.7 % (38.5-71.5); PLATELET COUNT (AUTO) 381 K/uL (179-408); RED BLOOD CELL COUNT(AUTO) 3.33 MIL/uL (3.63-4.92); WHITE BLOOD COUNT (AUTO) 6.6 K/uL (3.8-11.8)
[2020-03-26 07:10] LABS: ALANINE AMINOTRANSFERASE 108 U/L (14-59); ALKALINE PHOSPHATASE 176 U/L (50-136); ASPARTATE AMINOTRANSFERASE 27 U/L (15-37); BILIRUBIN,TOTAL 0.1 mg/dL (0.2-1.0); CARBON DIOXIDE 26 mmol/L (21-32); CHLORIDE 106 mmol/L (98-107); CREATININE 0.5 mg/dL (0.6-1.3); GLUCOSE 76 mg/dL (74-106); POTASSIUM 3.7 mmol/L (3.5-5.1); TOTAL PROTEIN, SERUM 6.2 g/dL (6.4-8.2); UREA NITROGEN, BLOOD 20 mg/dL (7-18)
[2020-03-26 07:46] VITALS: BP 100/68
[2020-03-26] MEDS: HYDROGEN PEROXIDE 3% 118 ML BOTTLE TP SCH ×2 (08:07→21:46)
[2020-03-26] MEDS: DESMOPRESSIN 0.1 MG TABLET GT SCH (08:33)
[2020-03-26] MEDS: PHENYTOIN 100 MG/4 ML UDC GT SCH ×2 (08:33→21:00)
[2020-03-26] MEDS: levETIRAcetam 500 MG/5 ML LIQUID UDC GT SCH ×2 (08:34→21:00)
[2020-03-26] MEDS: ACIDOPHILUS/BULGARICUS CHEW TAB GT SCH ×2 (08:34→21:00)
[2020-03-26] MEDS: FUROSEMIDE 20 MG/2 ML GT SCH (08:35)
[2020-03-26] MEDS: POTASSIUM CHLORIDE 40 MEQ/30 ML LIQUID UDC GT SCH (08:35)
[2020-03-26] MEDS: TRIAMCINOLONE ACET 0.1% CREAM 15 GM TUBE TP SCH ×2 (08:36→21:00)
[2020-03-26] MEDS: COD LIVER OIL/ZINC OXIDE OINT 113 GM TUBE TOP SCH ×2 (08:36→21:00)
[2020-03-26] MEDS: NYSTATIN CREAM 30 GM TUBE TP SCH ×2 (08:36→21:00)
[2020-03-26] MEDS: VITAL AF 1.2 1,000 ML LIQUID GT SCH (11:49)
[2020-03-26 20:03] VITALS: BP 123/60
[2020-03-26] MEDS: CHOLECALCIFEROL 1,000 UNIT TABLET GT SCH (21:00)
[2020-03-26] MEDS: THIAMINE HCL 100 MG TABLET GT SCH (21:00)
[2020-03-26] MEDS: FOLIC ACID 1 MG TABLET GT SCH (21:00)
[2020-03-27] MEDS: ALBUTEROL SULFATE 2.5 MG/3 ML NEBU NEB SCH ×6 (02:30→23:10)
[2020-03-27] MEDS: IPRATROPIUM BROMIDE 0.5 MG/2.5 ML NEBU NEB SCH ×6 (02:30→23:10)
[2020-03-27] MEDS: OMEPRAZOLE 20 MG CAPSULE.DR GT SCH (05:20)
[2020-03-27] MEDS: MIDODRINE HCL 10 MG TABLET GT SCH ×3 (05:20→21:07)
[2020-03-27] MEDS: BACLOFEN 10 MG TABLET GT SCH ×3 (05:20→21:07)
[2020-03-27] MEDS: BACLOFEN 20 MG TABLET GT SCH ×3 (05:20→21:07)
[2020-03-27] MEDS: METOCLOPRAMIDE HCL 5 MG TABLET GT SCH ×3 (05:21→21:07)
[2020-03-27] MEDS: VITAL AF 1.2 1,000 ML LIQUID GT SCH (05:21)
[2020-03-27] MEDS: MAGNESIUM HYDROXIDE 30 ML LIQUID UDC GT PRN (06:25)
[2020-03-27 07:26] VITALS: BP 111/72
[2020-03-27] MEDS: HYDROGEN PEROXIDE 3% 118 ML BOTTLE TP SCH ×2 (08:36→20:57)
[2020-03-27] MEDS: DESMOPRESSIN 0.1 MG TABLET GT SCH (08:43)
[2020-03-27] MEDS: PHENYTOIN 100 MG/4 ML UDC GT SCH ×2 (08:44→21:07)
[2020-03-27] MEDS: ACIDOPHILUS/BULGARICUS CHEW TAB GT SCH ×2 (08:44→20:39)
[2020-03-27] MEDS: levETIRAcetam 500 MG/5 ML LIQUID UDC GT SCH ×2 (08:45→20:41)
[2020-03-27] MEDS: POTASSIUM CHLORIDE 40 MEQ/30 ML LIQUID UDC GT SCH (08:46)
[2020-03-27] MEDS: FUROSEMIDE 20 MG/2 ML GT SCH (08:46)
[2020-03-27] MEDS: COD LIVER OIL/ZINC OXIDE OINT 113 GM TUBE TOP SCH ×2 (08:46→20:43)
[2020-03-27] MEDS: NYSTATIN CREAM 30 GM TUBE TP SCH ×2 (08:47→20:43)
[2020-03-27] MEDS: TRIAMCINOLONE ACET 0.1% CREAM 15 GM TUBE TP SCH ×2 (08:47→20:43)
[2020-03-27] MEDS: BISACODYL 10 MG SUPP.RECT RC PRN (17:41)
[2020-03-27 20:11] VITALS: BP 103/53
[2020-03-27] MEDS: FOLIC ACID 1 MG TABLET GT SCH (20:40)
[2020-03-27] MEDS: THIAMINE HCL 100 MG TABLET GT SCH (20:42)
[2020-03-27] MEDS: CHOLECALCIFEROL 1,000 UNIT TABLET GT SCH (20:43)
[2020-03-28] MEDS: ALBUTEROL SULFATE 2.5 MG/3 ML NEBU NEB SCH ×5 (03:05→19:21)
[2020-03-28] MEDS: IPRATROPIUM BROMIDE 0.5 MG/2.5 ML NEBU NEB SCH ×5 (03:05→19:21)
[2020-03-28] MEDS: VITAL AF 1.2 1,000 ML LIQUID GT SCH (05:06)
[2020-03-28] MEDS: BACLOFEN 10 MG TABLET GT SCH ×3 (05:07→22:01)
[2020-03-28] MEDS: BACLOFEN 20 MG TABLET GT SCH ×3 (05:07→22:02)
[2020-03-28] MEDS: METOCLOPRAMIDE HCL 5 MG TABLET GT SCH ×3 (05:08→22:02)
[2020-03-28] MEDS: OMEPRAZOLE 20 MG CAPSULE.DR GT SCH (05:08)
[2020-03-28] MEDS: MIDODRINE HCL 10 MG TABLET GT SCH ×3 (05:08→22:00)
[2020-03-28 07:23] VITALS: BP 110/59
[2020-03-28] MEDS: HYDROGEN PEROXIDE 3% 118 ML BOTTLE TP SCH ×2 (07:40→19:21)
[2020-03-28] MEDS: DESMOPRESSIN 0.1 MG TABLET GT SCH (08:34)
[2020-03-28] MEDS: PHENYTOIN 100 MG/4 ML UDC GT SCH ×2 (08:35→21:00)
[2020-03-28] MEDS: ACIDOPHILUS/BULGARICUS CHEW TAB GT SCH ×2 (08:35→21:00)
[2020-03-28] MEDS: levETIRAcetam 500 MG/5 ML LIQUID UDC GT SCH ×2 (08:38→21:00)
[2020-03-28] MEDS: FUROSEMIDE 20 MG/2 ML GT SCH (08:44)
[2020-03-28] MEDS: POTASSIUM CHLORIDE 40 MEQ/30 ML LIQUID UDC GT SCH (08:45)
[2020-03-28] MEDS: COD LIVER OIL/ZINC OXIDE OINT 113 GM TUBE TOP SCH ×2 (08:45→21:00)
[2020-03-28] MEDS: TRIAMCINOLONE ACET 0.1% CREAM 15 GM TUBE TP SCH ×2 (08:48→21:00)
[2020-03-28] MEDS: NYSTATIN CREAM 30 GM TUBE TP SCH ×2 (08:48→21:00)
[2020-03-28 20:13] VITALS: BP 100/57
[2020-03-28] MEDS: CHOLECALCIFEROL 1,000 UNIT TABLET GT SCH (21:00)
[2020-03-28] MEDS: FOLIC ACID 1 MG TABLET GT SCH (21:00)
[2020-03-28] MEDS: THIAMINE HCL 100 MG TABLET GT SCH (21:00)
[2020-03-29] MEDS: ALBUTEROL SULFATE 2.5 MG/3 ML NEBU NEB SCH ×7 (00:19→23:07)
[2020-03-29] MEDS: IPRATROPIUM BROMIDE 0.5 MG/2.5 ML NEBU NEB SCH ×7 (00:19→23:07)
[2020-03-29] MEDS: METOCLOPRAMIDE HCL 5 MG TABLET GT SCH ×3 (05:51→22:34)
[2020-03-29] MEDS: MIDODRINE HCL 10 MG TABLET GT SCH ×3 (05:51→22:34)
[2020-03-29] MEDS: BACLOFEN 20 MG TABLET GT SCH ×3 (05:51→22:34)
[2020-03-29] MEDS: BACLOFEN 10 MG TABLET GT SCH ×3 (05:51→22:34)
[2020-03-29] MEDS: OMEPRAZOLE 20 MG CAPSULE.DR GT SCH (05:51)
[2020-03-29] MEDS: HYDROGEN PEROXIDE 3% 118 ML BOTTLE TP SCH ×2 (07:33→21:35)
[2020-03-29 07:37] VITALS: BP 102/61
[2020-03-29] MEDS: DESMOPRESSIN 0.1 MG TABLET GT SCH (08:48)
[2020-03-29] MEDS: PHENYTOIN 100 MG/4 ML UDC GT SCH ×2 (08:50→21:10)
[2020-03-29] MEDS: ACIDOPHILUS/BULGARICUS CHEW TAB GT SCH ×2 (08:50→20:36)
[2020-03-29] MEDS: levETIRAcetam 500 MG/5 ML LIQUID UDC GT SCH ×2 (08:51→20:36)
[2020-03-29] MEDS: POTASSIUM CHLORIDE 40 MEQ/30 ML LIQUID UDC GT SCH (08:52)
[2020-03-29] MEDS: FUROSEMIDE 20 MG/2 ML GT SCH (08:52)
[2020-03-29] MEDS: COD LIVER OIL/ZINC OXIDE OINT 113 GM TUBE TOP SCH ×2 (08:52→20:36)
[2020-03-29] MEDS: NYSTATIN CREAM 30 GM TUBE TP SCH (08:53)
[2020-03-29] MEDS: TRIAMCINOLONE ACET 0.1% CREAM 15 GM TUBE TP SCH (08:53)
[2020-03-29] MEDS: VITAL AF 1.2 1,000 ML LIQUID GT SCH (11:36)
--- NOTE | 2020-03-29 17:40 | NUR ---
SEEN BY DR. WORTHINGTON AND WITH NEW ORDERS CARRIED OUT.
[2020-03-29 20:11] VITALS: BP 87/48
[2020-03-29] MEDS: FOLIC ACID 1 MG TABLET GT SCH (20:36)
[2020-03-29] MEDS: THIAMINE HCL 100 MG TABLET GT SCH (20:36)
[2020-03-29] MEDS: CHOLECALCIFEROL 1,000 UNIT TABLET GT SCH (20:36)
[2020-03-30] MEDS: IPRATROPIUM BROMIDE 0.5 MG/2.5 ML NEBU NEB SCH ×6 (03:13→23:44)
[2020-03-30] MEDS: ALBUTEROL SULFATE 2.5 MG/3 ML NEBU NEB SCH ×6 (03:13→23:44)
[2020-03-30] MEDS: BACLOFEN 10 MG TABLET GT SCH ×3 (05:41→21:20)
[2020-03-30] MEDS: BACLOFEN 20 MG TABLET GT SCH ×3 (05:41→21:20)
[2020-03-30] MEDS: MIDODRINE HCL 10 MG TABLET GT SCH ×3 (05:42→21:21)
[2020-03-30] MEDS: OMEPRAZOLE 20 MG CAPSULE.DR GT SCH (05:42)
[2020-03-30] MEDS: METOCLOPRAMIDE HCL 5 MG TABLET GT SCH ×3 (05:42→21:21)
[2020-03-30 07:39] VITALS: BP 86/47
[2020-03-30] MEDS: levETIRAcetam 500 MG/5 ML LIQUID UDC GT SCH ×2 (08:21→20:54)
[2020-03-30] MEDS: PHENYTOIN 100 MG/4 ML UDC GT SCH ×2 (08:21→20:54)
[2020-03-30] MEDS: POTASSIUM CHLORIDE 40 MEQ/30 ML LIQUID UDC GT SCH (08:21)
[2020-03-30] MEDS: FUROSEMIDE 20 MG/2 ML GT SCH (08:21)
[2020-03-30] MEDS: COD LIVER OIL/ZINC OXIDE OINT 113 GM TUBE TOP SCH ×2 (08:21→20:55)
[2020-03-30] MEDS: DESMOPRESSIN 0.1 MG TABLET GT SCH (08:21)
[2020-03-30] MEDS: ACIDOPHILUS/BULGARICUS CHEW TAB GT SCH ×2 (08:21→20:54)
[2020-03-30] MEDS: HYDROGEN PEROXIDE 3% 118 ML BOTTLE TP SCH ×2 (09:10→21:35)
--- NOTE | 2020-03-30 11:00 | NUR ---
zoom provided to pt's mother.
[2020-03-30] MEDS: VITAL AF 1.2 1,000 ML LIQUID GT SCH (12:20)
--- NOTE | 2020-03-30 13:00 | NUR ---
SEEN BY DR. VILLALBA AND WITH NNO.
[2020-03-30 20:00] VITALS: BP 100/61
[2020-03-30] MEDS: FOLIC ACID 1 MG TABLET GT SCH (20:54)
[2020-03-30] MEDS: THIAMINE HCL 100 MG TABLET GT SCH (20:55)
[2020-03-30] MEDS: CHOLECALCIFEROL 1,000 UNIT TABLET GT SCH (20:55)
[2020-03-31] MEDS: IPRATROPIUM BROMIDE 0.5 MG/2.5 ML NEBU NEB SCH ×6 (03:59→22:30)
[2020-03-31] MEDS: ALBUTEROL SULFATE 2.5 MG/3 ML NEBU NEB SCH ×6 (03:59→22:30)
[2020-03-31] MEDS: BACLOFEN 10 MG TABLET GT SCH ×3 (06:23→21:06)
[2020-03-31] MEDS: BACLOFEN 20 MG TABLET GT SCH ×3 (06:23→21:06)
[2020-03-31] MEDS: OMEPRAZOLE 20 MG CAPSULE.DR GT SCH (06:24)
[2020-03-31] MEDS: METOCLOPRAMIDE HCL 5 MG TABLET GT SCH ×3 (06:24→21:06)
[2020-03-31] MEDS: MIDODRINE HCL 10 MG TABLET GT SCH ×3 (06:24→21:06)
[2020-03-31 07:44] VITALS: BP 91/46
[2020-03-31] MEDS: HYDROGEN PEROXIDE 3% 118 ML BOTTLE TP SCH ×2 (09:00→21:14)
[2020-03-31] MEDS: DESMOPRESSIN 0.1 MG TABLET GT SCH (09:23)
[2020-03-31] MEDS: PHENYTOIN 100 MG/4 ML UDC GT SCH ×2 (09:23→21:02)
[2020-03-31] MEDS: ACIDOPHILUS/BULGARICUS CHEW TAB GT SCH ×2 (09:24→21:02)
[2020-03-31] MEDS: POTASSIUM CHLORIDE 40 MEQ/30 ML LIQUID UDC GT SCH (09:25)
[2020-03-31] MEDS: FUROSEMIDE 20 MG/2 ML GT SCH (09:25)
[2020-03-31] MEDS: levETIRAcetam 500 MG/5 ML LIQUID UDC GT SCH ×2 (09:25→21:03)
[2020-03-31] MEDS: COD LIVER OIL/ZINC OXIDE OINT 113 GM TUBE TOP SCH ×2 (09:26→21:06)
[2020-03-31] MEDS: VITAL AF 1.2 1,000 ML LIQUID GT SCH (13:23)
[2020-03-31 20:00] VITALS: BP 89/52
[2020-03-31] MEDS: THIAMINE HCL 100 MG TABLET GT SCH (21:03)
[2020-03-31] MEDS: FOLIC ACID 1 MG TABLET GT SCH (21:03)
[2020-03-31] MEDS: CHOLECALCIFEROL 1,000 UNIT TABLET GT SCH (21:06)
[2020-04-01] MEDS: ALBUTEROL SULFATE 2.5 MG/3 ML NEBU NEB SCH ×6 (02:30→22:30)
[2020-04-01] MEDS: IPRATROPIUM BROMIDE 0.5 MG/2.5 ML NEBU NEB SCH ×6 (02:30→22:30)
[2020-04-01] MEDS: BACLOFEN 10 MG TABLET GT SCH ×3 (05:38→21:02)
[2020-04-01] MEDS: BACLOFEN 20 MG TABLET GT SCH ×3 (05:38→21:02)
[2020-04-01] MEDS: OMEPRAZOLE 20 MG CAPSULE.DR GT SCH (05:39)
[2020-04-01] MEDS: MIDODRINE HCL 10 MG TABLET GT SCH ×3 (05:39→21:02)
[2020-04-01] MEDS: METOCLOPRAMIDE HCL 5 MG TABLET GT SCH ×3 (05:39→21:02)
[2020-04-01 07:31] VITALS: BP 103/60
[2020-04-01] MEDS: HYDROGEN PEROXIDE 3% 118 ML BOTTLE TP SCH ×2 (08:10→21:11)
[2020-04-01] MEDS: FUROSEMIDE 20 MG/2 ML GT SCH (08:21)
[2020-04-01] MEDS: ACIDOPHILUS/BULGARICUS CHEW TAB GT SCH ×2 (08:21→21:00)
[2020-04-01] MEDS: POTASSIUM CHLORIDE 40 MEQ/30 ML LIQUID UDC GT SCH (08:21)
[2020-04-01] MEDS: DESMOPRESSIN 0.1 MG TABLET GT SCH (08:21)
[2020-04-01] MEDS: PHENYTOIN 100 MG/4 ML UDC GT SCH ×2 (08:21→21:00)
[2020-04-01] MEDS: levETIRAcetam 500 MG/5 ML LIQUID UDC GT SCH ×2 (08:21→21:02)
[2020-04-01] MEDS: COD LIVER OIL/ZINC OXIDE OINT 113 GM TUBE TOP SCH ×2 (08:21→21:03)
[2020-04-01 20:13] VITALS: BP 97/56
[2020-04-01] MEDS: FOLIC ACID 1 MG TABLET GT SCH (21:00)
[2020-04-01] MEDS: THIAMINE HCL 100 MG TABLET GT SCH (21:02)
[2020-04-01] MEDS: CHOLECALCIFEROL 1,000 UNIT TABLET GT SCH (21:03)
[2020-04-02] MEDS: IPRATROPIUM BROMIDE 0.5 MG/2.5 ML NEBU NEB SCH ×6 (02:30→22:30)
[2020-04-02] MEDS: ALBUTEROL SULFATE 2.5 MG/3 ML NEBU NEB SCH ×6 (02:30→22:30)
[2020-04-02] MEDS: BACLOFEN 20 MG TABLET GT SCH ×3 (05:12→22:15)
[2020-04-02] MEDS: BACLOFEN 10 MG TABLET GT SCH ×3 (05:12→22:15)
[2020-04-02] MEDS: METOCLOPRAMIDE HCL 5 MG TABLET GT SCH ×3 (05:13→22:16)
[2020-04-02] MEDS: OMEPRAZOLE 20 MG CAPSULE.DR GT SCH (05:13)
[2020-04-02] MEDS: MIDODRINE HCL 10 MG TABLET GT SCH ×3 (05:13→22:00)
[2020-04-02 05:59] LABS: BASOPHILS # (AUTO) 0.1 K/uL (0.0-8.0); BASOPHILS % (AUTO) 1.9 % (0.0-2.0); EOSINOPHILS # (AUTO) 0.6 K/uL (0.0-0.7); EOSINOPHILS % (AUTO) 12.4 % (0.0-7.0); HEMATOCRIT 28.1 % (31.2-41.9); HEMOGLOBIN 9.9 g/dL (10.9-14.3); LYMPHOCYTES # (AUTO) 2.4 K/uL (20.0-40.0); LYMPHOCYTES % (AUTO) 52.3 % (20.5-51.5); MEAN CORPUSCULAR HEMOGLOBIN 31.8 uug (24.7-32.8); MEAN CORPUSCULAR HGB CONC 35 g/dL (32.3-35.6); MEAN CORPUSCULAR VOLUME 90.6 fL (75.5-95.3); MONOCYTES # (AUTO) 0.4 K/uL (2.0-10.0); MONOCYTES % (AUTO) 9.9 % (0.0-11.0); NEUTROPHILS # (AUTO) 1.1 K/uL (1.8-8.9); NEUTROPHILS % (AUTO) 23.5 % (38.5-71.5); PLATELET COUNT (AUTO) 264 K/uL (179-408); WHITE BLOOD COUNT (AUTO) 4.5 K/uL (3.8-11.8)
[2020-04-02 06:08] LABS: CREATININE 0.6 mg/dL (0.6-1.3); POTASSIUM 3.6 mmol/L (3.5-5.1)
[2020-04-02 07:41] VITALS: BP 123/66
[2020-04-02] MEDS: HYDROGEN PEROXIDE 3% 118 ML BOTTLE TP SCH ×2 (08:04→21:34)
[2020-04-02] MEDS: ACIDOPHILUS/BULGARICUS CHEW TAB GT SCH ×2 (09:00→20:46)
[2020-04-02] MEDS: COD LIVER OIL/ZINC OXIDE OINT 113 GM TUBE TOP SCH ×2 (09:00→20:48)
[2020-04-02] MEDS: PHENYTOIN 100 MG/4 ML UDC GT SCH ×2 (09:00→20:46)
[2020-04-02] MEDS: FUROSEMIDE 20 MG/2 ML GT SCH (09:00)
[2020-04-02] MEDS: levETIRAcetam 500 MG/5 ML LIQUID UDC GT SCH ×2 (09:00→20:46)
[2020-04-02] MEDS: DESMOPRESSIN 0.1 MG TABLET GT SCH (09:00)
[2020-04-02] MEDS: POTASSIUM CHLORIDE 40 MEQ/30 ML LIQUID UDC GT SCH (09:00)
[2020-04-02 20:41] VITALS: BP 98/57
[2020-04-02] MEDS: FOLIC ACID 1 MG TABLET GT SCH (20:46)
[2020-04-02] MEDS: CHOLECALCIFEROL 1,000 UNIT TABLET GT SCH (20:47)
[2020-04-02] MEDS: THIAMINE HCL 100 MG TABLET GT SCH (20:47)
[2020-04-03] MEDS: ALBUTEROL SULFATE 2.5 MG/3 ML NEBU NEB SCH ×6 (02:30→23:20)
[2020-04-03] MEDS: IPRATROPIUM BROMIDE 0.5 MG/2.5 ML NEBU NEB SCH ×6 (02:30→23:20)
[2020-04-03] MEDS: MIDODRINE HCL 10 MG TABLET GT SCH ×3 (05:05→21:46)
[2020-04-03] MEDS: BACLOFEN 10 MG TABLET GT SCH ×3 (05:05→21:45)
[2020-04-03] MEDS: OMEPRAZOLE 20 MG CAPSULE.DR GT SCH (05:05)
[2020-04-03] MEDS: BACLOFEN 20 MG TABLET GT SCH ×3 (05:05→21:45)
[2020-04-03] MEDS: METOCLOPRAMIDE HCL 5 MG TABLET GT SCH ×3 (05:06→21:46)
[2020-04-03] MEDS: HYDROGEN PEROXIDE 3% 118 ML BOTTLE TP SCH ×2 (07:15→20:49)
[2020-04-03 07:46] VITALS: BP 108/60
[2020-04-03] MEDS: PHENYTOIN 100 MG/4 ML UDC GT SCH ×2 (09:00→21:44)
[2020-04-03] MEDS: DESMOPRESSIN 0.1 MG TABLET GT SCH (09:22)
[2020-04-03] MEDS: ACIDOPHILUS/BULGARICUS CHEW TAB GT SCH ×2 (09:22→21:44)
[2020-04-03] MEDS: FUROSEMIDE 20 MG/2 ML GT SCH (09:23)
[2020-04-03] MEDS: levETIRAcetam 500 MG/5 ML LIQUID UDC GT SCH ×2 (09:23→21:44)
[2020-04-03] MEDS: POTASSIUM CHLORIDE 40 MEQ/30 ML LIQUID UDC GT SCH (09:25)
[2020-04-03] MEDS: COD LIVER OIL/ZINC OXIDE OINT 113 GM TUBE TOP SCH ×2 (09:27→21:45)
[2020-04-03] MEDS: VITAL AF 1.2 1,000 ML LIQUID GT SCH (14:14)
--- NOTE | 2020-04-03 16:17 | NUR ---
INTERDISCIPLINARY PLAN OF CARE CONFERENCE was held today. [place] and was not available to participate in the meeting. Dr. Wagner and the Interdisciplinary Team reviewed the current plan of care in detail. RN reported on patient's medical condition and recent treatments. See RN IDT conference notes. No major changes in medical condition were reported by nursing or by other disciplines. See all other disciplines IDT notes and physician's progress notes for additional details.
[2020-04-03 19:55] VITALS: BP 113/59
[2020-04-03] MEDS: FOLIC ACID 1 MG TABLET GT SCH (21:44)
[2020-04-03] MEDS: CHOLECALCIFEROL 1,000 UNIT TABLET GT SCH (21:45)
[2020-04-03] MEDS: THIAMINE HCL 100 MG TABLET GT SCH (21:45)
[2020-04-04] MEDS: ALBUTEROL SULFATE 2.5 MG/3 ML NEBU NEB SCH ×6 (03:20→23:12)
[2020-04-04] MEDS: IPRATROPIUM BROMIDE 0.5 MG/2.5 ML NEBU NEB SCH ×6 (03:20→23:12)
[2020-04-04] MEDS: OMEPRAZOLE 20 MG CAPSULE.DR GT SCH (05:02)
[2020-04-04] MEDS: METOCLOPRAMIDE HCL 5 MG TABLET GT SCH ×3 (05:02→22:13)
[2020-04-04] MEDS: BACLOFEN 20 MG TABLET GT SCH ×3 (05:02→22:13)
[2020-04-04] MEDS: MIDODRINE HCL 10 MG TABLET GT SCH ×3 (05:02→22:15)
[2020-04-04] MEDS: BACLOFEN 10 MG TABLET GT SCH ×3 (05:02→22:13)
[2020-04-04 07:27] VITALS: BP 102/63
[2020-04-04] MEDS: PHENYTOIN 100 MG/4 ML UDC GT SCH ×2 (08:44→21:00)
[2020-04-04] MEDS: levETIRAcetam 500 MG/5 ML LIQUID UDC GT SCH ×2 (08:44→21:00)
[2020-04-04] MEDS: DESMOPRESSIN 0.1 MG TABLET GT SCH (08:44)
[2020-04-04] MEDS: ACIDOPHILUS/BULGARICUS CHEW TAB GT SCH ×2 (08:44→21:00)
[2020-04-04] MEDS: COD LIVER OIL/ZINC OXIDE OINT 113 GM TUBE TOP SCH ×2 (08:45→21:00)
[2020-04-04] MEDS: POTASSIUM CHLORIDE 40 MEQ/30 ML LIQUID UDC GT SCH (08:45)
[2020-04-04] MEDS: FUROSEMIDE 20 MG/2 ML GT SCH (08:45)
[2020-04-04] MEDS: HYDROGEN PEROXIDE 3% 118 ML BOTTLE TP SCH ×2 (09:30→21:00)
[2020-04-04] MEDS: VITAL AF 1.2 1,000 ML LIQUID GT SCH (14:01)
[2020-04-04] MEDS: CHOLECALCIFEROL 1,000 UNIT TABLET GT SCH (21:00)
[2020-04-04] MEDS: FOLIC ACID 1 MG TABLET GT SCH (21:00)
[2020-04-04] MEDS: THIAMINE HCL 100 MG TABLET GT SCH (21:00)
[2020-04-04 22:15] VITALS: BP 98/56
[2020-04-05] MEDS: IPRATROPIUM BROMIDE 0.5 MG/2.5 ML NEBU NEB SCH ×6 (02:58→23:27)
[2020-04-05] MEDS: ALBUTEROL SULFATE 2.5 MG/3 ML NEBU NEB SCH ×6 (02:58→23:27)
[2020-04-05] MEDS: BACLOFEN 20 MG TABLET GT SCH ×3 (05:11→21:02)
[2020-04-05] MEDS: BACLOFEN 10 MG TABLET GT SCH ×3 (05:11→21:02)
[2020-04-05] MEDS: METOCLOPRAMIDE HCL 5 MG TABLET GT SCH ×3 (05:12→21:02)
[2020-04-05] MEDS: OMEPRAZOLE 20 MG CAPSULE.DR GT SCH (05:12)
[2020-04-05] MEDS: MIDODRINE HCL 10 MG TABLET GT SCH ×3 (05:12→21:02)
[2020-04-05 07:23] VITALS: BP 116/60
[2020-04-05] MEDS: DESMOPRESSIN 0.1 MG TABLET GT SCH (08:29)
[2020-04-05] MEDS: PHENYTOIN 100 MG/4 ML UDC GT SCH ×2 (08:33→21:00)
[2020-04-05] MEDS: ACIDOPHILUS/BULGARICUS CHEW TAB GT SCH ×2 (08:33→21:00)
[2020-04-05] MEDS: levETIRAcetam 500 MG/5 ML LIQUID UDC GT SCH ×2 (08:34→21:01)
[2020-04-05] MEDS: FUROSEMIDE 20 MG/2 ML GT SCH (08:37)
[2020-04-05] MEDS: COD LIVER OIL/ZINC OXIDE OINT 113 GM TUBE TOP SCH ×2 (08:38→21:01)
[2020-04-05] MEDS: POTASSIUM CHLORIDE 40 MEQ/30 ML LIQUID UDC GT SCH (08:38)
[2020-04-05] MEDS: HYDROGEN PEROXIDE 3% 118 ML BOTTLE TP SCH ×2 (09:29→20:47)
[2020-04-05] MEDS: VITAL AF 1.2 1,000 ML LIQUID GT SCH (10:40)
[2020-04-05] MEDS: FOLIC ACID 1 MG TABLET GT SCH (21:00)
[2020-04-05] MEDS: THIAMINE HCL 100 MG TABLET GT SCH (21:01)
[2020-04-05] MEDS: CHOLECALCIFEROL 1,000 UNIT TABLET GT SCH (21:01)
[2020-04-05 22:37] VITALS: BP 95/56
--- NOTE | 2020-04-05 22:45 | NUR ---
Change bhatt catheter to Thai #20X 10ml, patient tolerating well, noted with yellow urine output.
[2020-04-06] MEDS: ALBUTEROL SULFATE 2.5 MG/3 ML NEBU NEB SCH ×6 (03:02→23:10)
[2020-04-06] MEDS: IPRATROPIUM BROMIDE 0.5 MG/2.5 ML NEBU NEB SCH ×6 (03:02→23:10)
[2020-04-06] MEDS: BACLOFEN 10 MG TABLET GT SCH ×3 (05:55→22:24)
[2020-04-06] MEDS: BACLOFEN 20 MG TABLET GT SCH ×3 (05:55→22:24)
[2020-04-06] MEDS: METOCLOPRAMIDE HCL 5 MG TABLET GT SCH ×3 (05:56→22:25)
[2020-04-06] MEDS: MIDODRINE HCL 10 MG TABLET GT SCH ×3 (05:56→22:25)
[2020-04-06] MEDS: OMEPRAZOLE 20 MG CAPSULE.DR GT SCH (05:56)
[2020-04-06 07:28] VITALS: BP 106/63
[2020-04-06] MEDS: DESMOPRESSIN 0.1 MG TABLET GT SCH (08:26)
[2020-04-06] MEDS: ACIDOPHILUS/BULGARICUS CHEW TAB GT SCH ×2 (08:26→20:45)
[2020-04-06] MEDS: FUROSEMIDE 20 MG/2 ML GT SCH (08:26)
[2020-04-06] MEDS: COD LIVER OIL/ZINC OXIDE OINT 113 GM TUBE TOP SCH ×2 (08:26→20:46)
[2020-04-06] MEDS: levETIRAcetam 500 MG/5 ML LIQUID UDC GT SCH ×2 (08:26→20:45)
[2020-04-06] MEDS: PHENYTOIN 100 MG/4 ML UDC GT SCH ×2 (08:26→20:45)
[2020-04-06] MEDS: POTASSIUM CHLORIDE 40 MEQ/30 ML LIQUID UDC GT SCH (08:26)
[2020-04-06] MEDS: HYDROGEN PEROXIDE 3% 118 ML BOTTLE TP SCH ×2 (09:50→21:15)
--- NOTE | 2020-04-06 10:30 | NUR ---
zoom meeting provided to pt's mother
[2020-04-06] MEDS: FOLIC ACID 1 MG TABLET GT SCH (20:45)
[2020-04-06] MEDS: THIAMINE HCL 100 MG TABLET GT SCH (20:46)
[2020-04-06] MEDS: CHOLECALCIFEROL 1,000 UNIT TABLET GT SCH (20:46)
[2020-04-06 22:00] VITALS: BP 98/58
[2020-04-07] MEDS: IPRATROPIUM BROMIDE 0.5 MG/2.5 ML NEBU NEB SCH ×6 (03:06→22:30)
[2020-04-07] MEDS: ALBUTEROL SULFATE 2.5 MG/3 ML NEBU NEB SCH ×6 (03:06→22:30)
[2020-04-07] MEDS: BACLOFEN 10 MG TABLET GT SCH ×3 (05:04→22:08)
[2020-04-07] MEDS: BACLOFEN 20 MG TABLET GT SCH ×3 (05:04→22:08)
[2020-04-07] MEDS: MIDODRINE HCL 10 MG TABLET GT SCH ×3 (05:05→22:09)
[2020-04-07] MEDS: VITAL AF 1.2 1,000 ML LIQUID GT SCH (05:05)
[2020-04-07] MEDS: METOCLOPRAMIDE HCL 5 MG TABLET GT SCH ×3 (05:05→22:08)
[2020-04-07] MEDS: OMEPRAZOLE 20 MG CAPSULE.DR GT SCH (05:05)
[2020-04-07] MEDS: DESMOPRESSIN 0.1 MG TABLET GT SCH (08:39)
[2020-04-07] MEDS: ACIDOPHILUS/BULGARICUS CHEW TAB GT SCH ×2 (08:39→20:51)
[2020-04-07] MEDS: PHENYTOIN 100 MG/4 ML UDC GT SCH ×2 (08:39→20:51)
[2020-04-07] MEDS: levETIRAcetam 500 MG/5 ML LIQUID UDC GT SCH ×2 (08:40→20:51)
[2020-04-07] MEDS: FUROSEMIDE 20 MG/2 ML GT SCH (08:44)
[2020-04-07] MEDS: POTASSIUM CHLORIDE 40 MEQ/30 ML LIQUID UDC GT SCH (08:47)
[2020-04-07 09:00] VITALS: BP 108/59
[2020-04-07] MEDS: COD LIVER OIL/ZINC OXIDE OINT 113 GM TUBE TOP SCH ×2 (09:00→20:51)
[2020-04-07] MEDS: HYDROGEN PEROXIDE 3% 118 ML BOTTLE TP SCH ×2 (09:00→21:41)
[2020-04-07] MEDS: CHOLECALCIFEROL 1,000 UNIT TABLET GT SCH (20:51)
[2020-04-07] MEDS: FOLIC ACID 1 MG TABLET GT SCH (20:51)
[2020-04-07] MEDS: THIAMINE HCL 100 MG TABLET GT SCH (20:51)
[2020-04-07 22:35] VITALS: BP 94/51
[2020-04-08] MEDS: ALBUTEROL SULFATE 2.5 MG/3 ML NEBU NEB SCH ×6 (02:30→22:30)
[2020-04-08] MEDS: IPRATROPIUM BROMIDE 0.5 MG/2.5 ML NEBU NEB SCH ×6 (02:30→22:30)
[2020-04-08] MEDS: BACLOFEN 10 MG TABLET GT SCH ×3 (05:02→22:09)
[2020-04-08] MEDS: MIDODRINE HCL 10 MG TABLET GT SCH ×3 (05:02→22:10)
[2020-04-08] MEDS: OMEPRAZOLE 20 MG CAPSULE.DR GT SCH (05:02)
[2020-04-08] MEDS: BACLOFEN 20 MG TABLET GT SCH ×3 (05:02→22:09)
[2020-04-08] MEDS: METOCLOPRAMIDE HCL 5 MG TABLET GT SCH ×3 (05:02→22:10)
[2020-04-08] MEDS: VITAL AF 1.2 1,000 ML LIQUID GT SCH (05:03)
[2020-04-08 07:40] VITALS: BP 125/69
[2020-04-08] MEDS: DESMOPRESSIN 0.1 MG TABLET GT SCH (09:12)
[2020-04-08] MEDS: ACIDOPHILUS/BULGARICUS CHEW TAB GT SCH ×2 (09:12→20:46)
[2020-04-08] MEDS: levETIRAcetam 500 MG/5 ML LIQUID UDC GT SCH ×2 (09:12→20:46)
[2020-04-08] MEDS: PHENYTOIN 100 MG/4 ML UDC GT SCH ×2 (09:12→20:45)
[2020-04-08] MEDS: FUROSEMIDE 20 MG/2 ML GT SCH (09:13)
[2020-04-08] MEDS: COD LIVER OIL/ZINC OXIDE OINT 113 GM TUBE TOP SCH ×2 (09:14→20:48)
[2020-04-08] MEDS: POTASSIUM CHLORIDE 40 MEQ/30 ML LIQUID UDC GT SCH (09:14)
[2020-04-08] MEDS: HYDROGEN PEROXIDE 3% 118 ML BOTTLE TP SCH ×2 (09:50→21:23)
[2020-04-08] MEDS: FOLIC ACID 1 MG TABLET GT SCH (20:46)
[2020-04-08] MEDS: THIAMINE HCL 100 MG TABLET GT SCH (20:47)
[2020-04-08] MEDS: CHOLECALCIFEROL 1,000 UNIT TABLET GT SCH (20:48)
[2020-04-08 22:37] VITALS: BP 98/55
[2020-04-09] MEDS: ALBUTEROL SULFATE 2.5 MG/3 ML NEBU NEB SCH ×6 (02:30→22:30)
[2020-04-09] MEDS: IPRATROPIUM BROMIDE 0.5 MG/2.5 ML NEBU NEB SCH ×6 (02:30→22:30)
[2020-04-09] MEDS: VITAL AF 1.2 1,000 ML LIQUID GT SCH (04:30)
[2020-04-09] MEDS: MIDODRINE HCL 10 MG TABLET GT SCH ×3 (06:01→22:56)
[2020-04-09] MEDS: BACLOFEN 20 MG TABLET GT SCH ×3 (06:01→22:55)
[2020-04-09] MEDS: BACLOFEN 10 MG TABLET GT SCH ×3 (06:01→22:55)
[2020-04-09] MEDS: OMEPRAZOLE 20 MG CAPSULE.DR GT SCH (06:01)
[2020-04-09] MEDS: METOCLOPRAMIDE HCL 5 MG TABLET GT SCH ×3 (06:01→22:56)
[2020-04-09 07:39] VITALS: BP 132/65
[2020-04-09 07:51] LABS: BASOPHILS # (AUTO) 0.1 K/uL (0.0-8.0); BASOPHILS % (AUTO) 0.8 % (0.0-2.0); EOSINOPHILS # (AUTO) 0.6 K/uL (0.0-0.7); EOSINOPHILS % (AUTO) 6.2 % (0.0-7.0); HEMATOCRIT 29.6 % (31.2-41.9); HEMOGLOBIN 10.4 g/dL (10.9-14.3); LYMPHOCYTES % (AUTO) 19.2 % (20.5-51.5); MEAN CORPUSCULAR HGB CONC 35 g/dL (32.3-35.6); MEAN CORPUSCULAR VOLUME 91.4 fL (75.5-95.3); MONOCYTES # (AUTO) 0.6 K/uL (2.0-10.0); MONOCYTES % (AUTO) 6.2 % (0.0-11.0); NEUTROPHILS % (AUTO) 67.6 % (38.5-71.5); PLATELET COUNT (AUTO) 250 K/uL (179-408); RED BLOOD CELL COUNT(AUTO) 3.24 MIL/uL (3.63-4.92); WHITE BLOOD COUNT (AUTO) 10.4 K/uL (3.8-11.8)
[2020-04-09 08:07] LABS: ALANINE AMINOTRANSFERASE 62 U/L (14-59); ALKALINE PHOSPHATASE 143 U/L (50-136); ASPARTATE AMINOTRANSFERASE 19 U/L (15-37); BILIRUBIN,TOTAL 0.2 mg/dL (0.2-1.0); CARBON DIOXIDE 25 mmol/L (21-32); CHLORIDE 105 mmol/L (98-107); CREATININE 0.5 mg/dL (0.6-1.3); GLUCOSE 83 mg/dL (74-106); POTASSIUM 3.7 mmol/L (3.5-5.1); TOTAL PROTEIN, SERUM 5.9 g/dL (6.4-8.2); UREA NITROGEN, BLOOD 17 mg/dL (7-18)
[2020-04-09] MEDS: DESMOPRESSIN 0.1 MG TABLET GT SCH (08:37)
[2020-04-09] MEDS: ACIDOPHILUS/BULGARICUS CHEW TAB GT SCH ×2 (08:40→20:34)
[2020-04-09] MEDS: PHENYTOIN 100 MG/4 ML UDC GT SCH ×2 (08:40→20:34)
[2020-04-09] MEDS: levETIRAcetam 500 MG/5 ML LIQUID UDC GT SCH ×2 (08:41→20:35)
[2020-04-09] MEDS: FUROSEMIDE 20 MG/2 ML GT SCH (08:42)
[2020-04-09] MEDS: POTASSIUM CHLORIDE 40 MEQ/30 ML LIQUID UDC GT SCH (08:42)
[2020-04-09] MEDS: COD LIVER OIL/ZINC OXIDE OINT 113 GM TUBE TOP SCH ×2 (08:43→20:35)
[2020-04-09] MEDS: HYDROGEN PEROXIDE 3% 118 ML BOTTLE TP SCH ×2 (09:15→21:39)
[2020-04-09 20:32] VITALS: BP 104/53
[2020-04-09] MEDS: FOLIC ACID 1 MG TABLET GT SCH (20:34)
[2020-04-09] MEDS: CHOLECALCIFEROL 1,000 UNIT TABLET GT SCH (20:35)
[2020-04-09] MEDS: THIAMINE HCL 100 MG TABLET GT SCH (20:35)
[2020-04-10] MEDS: IPRATROPIUM BROMIDE 0.5 MG/2.5 ML NEBU NEB SCH ×6 (02:30→23:14)
[2020-04-10] MEDS: ALBUTEROL SULFATE 2.5 MG/3 ML NEBU NEB SCH ×6 (02:30→23:14)
[2020-04-10 06:00] VITALS: BP 100/52
[2020-04-10] MEDS: BACLOFEN 20 MG TABLET GT SCH ×3 (06:15→22:08)
[2020-04-10] MEDS: BACLOFEN 10 MG TABLET GT SCH ×3 (06:15→22:08)
[2020-04-10] MEDS: METOCLOPRAMIDE HCL 5 MG TABLET GT SCH ×3 (06:15→22:09)
[2020-04-10] MEDS: OMEPRAZOLE 20 MG CAPSULE.DR GT SCH (06:15)
[2020-04-10] MEDS: MIDODRINE HCL 10 MG TABLET GT SCH ×3 (06:15→22:00)
[2020-04-10] MEDS: VITAL AF 1.2 1,000 ML LIQUID GT SCH (06:16)
[2020-04-10 07:32] VITALS: BP 100/56
[2020-04-10] MEDS: HYDROGEN PEROXIDE 3% 118 ML BOTTLE TP SCH ×2 (08:12→21:05)
[2020-04-10] MEDS: DESMOPRESSIN 0.1 MG TABLET GT SCH (08:43)
[2020-04-10] MEDS: ACIDOPHILUS/BULGARICUS CHEW TAB GT SCH ×2 (08:44→20:34)
[2020-04-10] MEDS: PHENYTOIN 100 MG/4 ML UDC GT SCH ×2 (08:44→20:34)
[2020-04-10] MEDS: levETIRAcetam 500 MG/5 ML LIQUID UDC GT SCH ×2 (08:46→20:35)
[2020-04-10] MEDS: POTASSIUM CHLORIDE 40 MEQ/30 ML LIQUID UDC GT SCH (08:46)
[2020-04-10] MEDS: FUROSEMIDE 20 MG/2 ML GT SCH (08:46)
[2020-04-10] MEDS: COD LIVER OIL/ZINC OXIDE OINT 113 GM TUBE TOP SCH ×2 (08:47→20:36)
--- NOTE | 2020-04-10 09:13 | NUR ---
Patient relative Zelda notified for covid 19 test today.per [facility] requirements.
--- NOTE | 2020-04-10 19:50 | NUR ---
PT RECEIVED ON CONTINUOUS VENT, TRACH CARE DONE. TRACH IN PLACED AND SECURED WITH TRACH TIE. BACK UP TRACH AND AMBU BAG AT BEDSIDE. IN LINE TX GIVEN WITH UD ALBUTEROL + UD ATROVENT ORDERED. BS MILD RHONCHI. SUCTION SMALL AMOUNT THICK PALE YELLOW SECRETIONS. VENT CHECKED, ALARMS WORKING WELL AND AUDIBLE. NO DISTRESS NOTED AT THIS TIME. WILL CONTINUE TO MONITOR.
[2020-04-10 20:00] VITALS: BP 101/51
[2020-04-10] MEDS: FOLIC ACID 1 MG TABLET GT SCH (20:34)
[2020-04-10] MEDS: THIAMINE HCL 100 MG TABLET GT SCH (20:35)
[2020-04-10] MEDS: CHOLECALCIFEROL 1,000 UNIT TABLET GT SCH (20:36)
[2020-04-11] MEDS: ALBUTEROL SULFATE 2.5 MG/3 ML NEBU NEB SCH ×6 (03:06→22:43)
[2020-04-11] MEDS: IPRATROPIUM BROMIDE 0.5 MG/2.5 ML NEBU NEB SCH ×6 (03:06→22:42)
[2020-04-11] MEDS: VITAL AF 1.2 1,000 ML LIQUID GT SCH (04:00)
[2020-04-11] MEDS: MIDODRINE HCL 10 MG TABLET GT SCH ×3 (06:08→22:00)
[2020-04-11] MEDS: BACLOFEN 20 MG TABLET GT SCH ×3 (06:08→22:12)
[2020-04-11] MEDS: BACLOFEN 10 MG TABLET GT SCH ×3 (06:08→22:12)
[2020-04-11] MEDS: OMEPRAZOLE 20 MG CAPSULE.DR GT SCH (06:08)
[2020-04-11] MEDS: METOCLOPRAMIDE HCL 5 MG TABLET GT SCH ×3 (06:08→22:13)
[2020-04-11 07:34] VITALS: BP 109/67
[2020-04-11] MEDS: HYDROGEN PEROXIDE 3% 118 ML BOTTLE TP SCH ×2 (08:41→19:32)
[2020-04-11] MEDS: DESMOPRESSIN 0.1 MG TABLET GT SCH (09:04)
[2020-04-11] MEDS: PHENYTOIN 100 MG/4 ML UDC GT SCH ×2 (09:04→20:33)
[2020-04-11] MEDS: levETIRAcetam 500 MG/5 ML LIQUID UDC GT SCH ×2 (09:05→20:35)
[2020-04-11] MEDS: ACIDOPHILUS/BULGARICUS CHEW TAB GT SCH ×2 (09:05→20:34)
[2020-04-11] MEDS: POTASSIUM CHLORIDE 40 MEQ/30 ML LIQUID UDC GT SCH (09:06)
[2020-04-11] MEDS: COD LIVER OIL/ZINC OXIDE OINT 113 GM TUBE TOP SCH ×2 (09:06→20:36)
[2020-04-11] MEDS: FUROSEMIDE 20 MG/2 ML GT SCH (09:06)
--- NOTE | 2020-04-11 18:40 | NUR ---
Pt's relative Zelda was informed regarding the result for Covid19 test was negative and consent obtained to give the Flu shot.She stated " is Okay to give the flu shot"
[2020-04-11 20:03] VITALS: BP 110/65
[2020-04-11] MEDS: FOLIC ACID 1 MG TABLET GT SCH (20:34)
[2020-04-11] MEDS: CHOLECALCIFEROL 1,000 UNIT TABLET GT SCH (20:36)
[2020-04-11] MEDS: THIAMINE HCL 100 MG TABLET GT SCH (20:36)
[2020-04-12] MEDS: MIDODRINE HCL 10 MG TABLET GT SCH ×3 (06:10→21:08)
[2020-04-12] MEDS: OMEPRAZOLE 20 MG CAPSULE.DR GT SCH (06:10)
[2020-04-12] MEDS: BACLOFEN 10 MG TABLET GT SCH ×3 (06:10→21:06)
[2020-04-12] MEDS: METOCLOPRAMIDE HCL 5 MG TABLET GT SCH ×3 (06:10→21:08)
[2020-04-12] MEDS: BACLOFEN 20 MG TABLET GT SCH ×3 (06:10→21:07)
[2020-04-12] MEDS: ALBUTEROL SULFATE 2.5 MG/3 ML NEBU NEB SCH ×5 (07:20→22:30)
[2020-04-12] MEDS: HYDROGEN PEROXIDE 3% 118 ML BOTTLE TP SCH ×2 (07:20→21:29)
[2020-04-12] MEDS: IPRATROPIUM BROMIDE 0.5 MG/2.5 ML NEBU NEB SCH ×5 (07:20→22:30)
[2020-04-12 07:40] VITALS: BP 98/61
[2020-04-12] MEDS: DESMOPRESSIN 0.1 MG TABLET GT SCH (08:22)
[2020-04-12] MEDS: PHENYTOIN 100 MG/4 ML UDC GT SCH ×2 (08:22→21:03)
[2020-04-12] MEDS: ACIDOPHILUS/BULGARICUS CHEW TAB GT SCH ×2 (08:24→21:03)
[2020-04-12] MEDS: levETIRAcetam 500 MG/5 ML LIQUID UDC GT SCH ×2 (08:25→21:04)
[2020-04-12] MEDS: POTASSIUM CHLORIDE 40 MEQ/30 ML LIQUID UDC GT SCH (08:26)
[2020-04-12] MEDS: COD LIVER OIL/ZINC OXIDE OINT 113 GM TUBE TOP SCH ×2 (08:27→21:06)
[2020-04-12] MEDS: FUROSEMIDE 20 MG/2 ML GT SCH (09:50)
--- NOTE | 2020-04-12 19:25 | NUR ---
NEW ORDER OBTAINED FROM EMMY MAUREEN P.ASilas FOR FLU VACCINE.
[2020-04-12 20:00] VITALS: BP 102/60
[2020-04-12] MEDS: FOLIC ACID 1 MG TABLET GT SCH (21:03)
[2020-04-12] MEDS: THIAMINE HCL 100 MG TABLET GT SCH (21:05)
[2020-04-12] MEDS: CHOLECALCIFEROL 1,000 UNIT TABLET GT SCH (21:06)
[2020-04-13] MEDS: ALBUTEROL SULFATE 2.5 MG/3 ML NEBU NEB SCH ×6 (02:30→23:07)
[2020-04-13] MEDS: IPRATROPIUM BROMIDE 0.5 MG/2.5 ML NEBU NEB SCH ×6 (02:30→23:07)
[2020-04-13] MEDS: BACLOFEN 20 MG TABLET GT SCH ×3 (05:31→22:22)
[2020-04-13] MEDS: METOCLOPRAMIDE HCL 5 MG TABLET GT SCH ×3 (05:31→22:24)
[2020-04-13] MEDS: OMEPRAZOLE 20 MG CAPSULE.DR GT SCH (05:31)
[2020-04-13] MEDS: BACLOFEN 10 MG TABLET GT SCH ×3 (05:31→22:22)
[2020-04-13] MEDS: MIDODRINE HCL 10 MG TABLET GT SCH ×3 (05:31→22:24)
[2020-04-13 07:40] VITALS: BP 108/66
[2020-04-13] MEDS: POTASSIUM CHLORIDE 40 MEQ/30 ML LIQUID UDC GT SCH (08:01)
[2020-04-13] MEDS: levETIRAcetam 500 MG/5 ML LIQUID UDC GT SCH ×2 (08:01→20:03)
[2020-04-13] MEDS: PHENYTOIN 100 MG/4 ML UDC GT SCH ×2 (08:01→20:03)
[2020-04-13] MEDS: FUROSEMIDE 20 MG/2 ML GT SCH (08:01)
[2020-04-13] MEDS: ACIDOPHILUS/BULGARICUS CHEW TAB GT SCH ×2 (08:01→20:03)
[2020-04-13] MEDS: DESMOPRESSIN 0.1 MG TABLET GT SCH (08:01)
[2020-04-13] MEDS: COD LIVER OIL/ZINC OXIDE OINT 113 GM TUBE TOP SCH ×2 (08:02→20:03)
[2020-04-13] MEDS: HYDROGEN PEROXIDE 3% 118 ML BOTTLE TP SCH ×2 (08:11→21:11)
--- NOTE | 2020-04-13 10:00 | NUR ---
SEEN BY AND WITH NNO.
[2020-04-13] MEDS: VITAL AF 1.2 1,000 ML LIQUID GT SCH (15:07)
--- NOTE | 2020-04-13 17:19 | NUR ---
patient cleaned and repositioned, noted monthly menses has started. will continue to monitor.
--- NOTE | 2020-04-13 18:00 | NUR ---
SEEN BY DR. DEEJAY Hardwick AND WITH NNO.
--- NOTE | 2020-04-13 18:52 | NUR ---
NO A/R TO FLU VACCINE ,AFEBRILE.
[2020-04-13] MEDS: FOLIC ACID 1 MG TABLET GT SCH (20:03)
[2020-04-13] MEDS: THIAMINE HCL 100 MG TABLET GT SCH (20:03)
[2020-04-13] MEDS: CHOLECALCIFEROL 1,000 UNIT TABLET GT SCH (20:03)
[2020-04-13 20:05] VITALS: BP 99/61
--- NOTE | 2020-04-13 22:51 | NUR ---
Afebrile, no adverse reactions noted from the flu vaccine.
[2020-04-14] MEDS: IPRATROPIUM BROMIDE 0.5 MG/2.5 ML NEBU NEB SCH ×6 (03:12→23:35)
[2020-04-14] MEDS: ALBUTEROL SULFATE 2.5 MG/3 ML NEBU NEB SCH ×6 (03:12→23:35)
[2020-04-14] MEDS: OMEPRAZOLE 20 MG CAPSULE.DR GT SCH (05:06)
[2020-04-14] MEDS: BACLOFEN 10 MG TABLET GT SCH ×3 (05:06→21:31)
[2020-04-14] MEDS: BACLOFEN 20 MG TABLET GT SCH ×3 (05:06→21:31)
[2020-04-14] MEDS: METOCLOPRAMIDE HCL 5 MG TABLET GT SCH ×3 (05:06→21:31)
[2020-04-14] MEDS: MIDODRINE HCL 10 MG TABLET GT SCH ×3 (05:06→21:31)
[2020-04-14 05:42] LABS: BASOPHILS % (AUTO) 0.3 % (0.0-2.0); EOSINOPHILS # (AUTO) 0.6 K/uL (0.0-0.7); EOSINOPHILS % (AUTO) 4.1 % (0.0-7.0); HEMATOCRIT 29.7 % (31.2-41.9); LYMPHOCYTES # (AUTO) 1.3 K/uL (20.0-40.0); LYMPHOCYTES % (AUTO) 9.6 % (20.5-51.5); MEAN CORPUSCULAR HGB CONC 34 g/dL (32.3-35.6); MEAN CORPUSCULAR VOLUME 91.9 fL (75.5-95.3); MONOCYTES # (AUTO) 0.4 K/uL (2.0-10.0); MONOCYTES % (AUTO) 2.9 % (0.0-11.0); NEUTROPHILS # (AUTO) 11.6 K/uL (1.8-8.9); NEUTROPHILS % (AUTO) 83.1 % (38.5-71.5); PLATELET COUNT (AUTO) 215 K/uL (179-408); RED BLOOD CELL COUNT(AUTO) 3.24 MIL/uL (3.63-4.92); WHITE BLOOD COUNT (AUTO) 13.9 K/uL (3.8-11.8)
[2020-04-14 05:53] LABS: CARBON DIOXIDE 23 mmol/L (21-32); CHLORIDE 109 mmol/L (98-107); CREATININE 0.5 mg/dL (0.6-1.3); GLUCOSE 113 mg/dL (74-106); MAGNESIUM 1.8 mg/dL (1.8-2.4); PHOSPHOROUS 3.6 mg/dL (2.5-4.9); POTASSIUM 3.7 mmol/L (3.5-5.1); UREA NITROGEN, BLOOD 21 mg/dL (7-18)
[2020-04-14] MEDS: HYDROGEN PEROXIDE 3% 118 ML BOTTLE TP SCH ×2 (07:32→19:10)
[2020-04-14 07:33] VITALS: BP 104/59
[2020-04-14] MEDS: DESMOPRESSIN 0.1 MG TABLET GT SCH (08:56)
[2020-04-14] MEDS: PHENYTOIN 100 MG/4 ML UDC GT SCH ×2 (08:56→20:07)
[2020-04-14] MEDS: levETIRAcetam 500 MG/5 ML LIQUID UDC GT SCH ×2 (08:56→20:08)
[2020-04-14] MEDS: ACIDOPHILUS/BULGARICUS CHEW TAB GT SCH ×2 (08:56→20:08)
[2020-04-14] MEDS: FUROSEMIDE 20 MG/2 ML GT SCH (08:56)
[2020-04-14] MEDS: POTASSIUM CHLORIDE 40 MEQ/30 ML LIQUID UDC GT SCH (08:57)
[2020-04-14] MEDS: COD LIVER OIL/ZINC OXIDE OINT 113 GM TUBE TOP SCH ×2 (08:57→20:08)
[2020-04-14] MEDS: VITAL AF 1.2 1,000 ML LIQUID GT SCH (10:03)
--- NOTE | 2020-04-14 18:17 | NUR ---
NO A/R TO FLU VACCINE,AFEBRILE.
[2020-04-14 20:00] VITALS: BP 98/48
[2020-04-14] MEDS: THIAMINE HCL 100 MG TABLET GT SCH (20:08)
[2020-04-14] MEDS: FOLIC ACID 1 MG TABLET GT SCH (20:08)
[2020-04-14] MEDS: CHOLECALCIFEROL 1,000 UNIT TABLET GT SCH (20:08)
--- NOTE | 2020-04-14 21:50 | NUR ---
Afebrile, no adverse reactions from flu vaccine, no redness on injection site.
[2020-04-15] MEDS: IPRATROPIUM BROMIDE 0.5 MG/2.5 ML NEBU NEB SCH ×6 (03:41→23:05)
[2020-04-15] MEDS: ALBUTEROL SULFATE 2.5 MG/3 ML NEBU NEB SCH ×6 (03:41→23:05)
[2020-04-15] MEDS: BACLOFEN 20 MG TABLET GT SCH ×3 (05:42→22:44)
[2020-04-15] MEDS: BACLOFEN 10 MG TABLET GT SCH ×3 (05:42→22:44)
[2020-04-15] MEDS: OMEPRAZOLE 20 MG CAPSULE.DR GT SCH (05:43)
[2020-04-15] MEDS: VITAL AF 1.2 1,000 ML LIQUID GT SCH (05:43)
[2020-04-15] MEDS: METOCLOPRAMIDE HCL 5 MG TABLET GT SCH ×3 (05:43→22:45)
[2020-04-15] MEDS: MIDODRINE HCL 10 MG TABLET GT SCH ×3 (05:43→22:00)
[2020-04-15 07:33] VITALS: BP 102/63
[2020-04-15] MEDS: HYDROGEN PEROXIDE 3% 118 ML BOTTLE TP SCH ×2 (07:50→21:05)
[2020-04-15] MEDS: PHENYTOIN 100 MG/4 ML UDC GT SCH ×2 (08:41→21:00)
[2020-04-15] MEDS: POTASSIUM CHLORIDE 40 MEQ/30 ML LIQUID UDC GT SCH (08:41)
[2020-04-15] MEDS: DESMOPRESSIN 0.1 MG TABLET GT SCH (08:41)
[2020-04-15] MEDS: FUROSEMIDE 20 MG/2 ML GT SCH (08:41)
[2020-04-15] MEDS: ACIDOPHILUS/BULGARICUS CHEW TAB GT SCH ×2 (08:41→21:00)
[2020-04-15] MEDS: levETIRAcetam 500 MG/5 ML LIQUID UDC GT SCH ×2 (08:41→21:00)
[2020-04-15] MEDS: COD LIVER OIL/ZINC OXIDE OINT 113 GM TUBE TOP SCH ×2 (08:42→21:00)
[2020-04-15 20:09] VITALS: BP 127/58
[2020-04-15] MEDS: CHOLECALCIFEROL 1,000 UNIT TABLET GT SCH (21:00)
[2020-04-15] MEDS: FOLIC ACID 1 MG TABLET GT SCH (21:00)
[2020-04-15] MEDS: THIAMINE HCL 100 MG TABLET GT SCH (21:00)
[2020-04-16] MEDS: IPRATROPIUM BROMIDE 0.5 MG/2.5 ML NEBU NEB SCH ×6 (03:05→23:49)
[2020-04-16] MEDS: ALBUTEROL SULFATE 2.5 MG/3 ML NEBU NEB SCH ×6 (03:05→23:49)
[2020-04-16] MEDS: OMEPRAZOLE 20 MG CAPSULE.DR GT SCH (05:40)
[2020-04-16] MEDS: BACLOFEN 20 MG TABLET GT SCH ×3 (05:40→21:45)
[2020-04-16] MEDS: BACLOFEN 10 MG TABLET GT SCH ×3 (05:40→21:45)
[2020-04-16] MEDS: METOCLOPRAMIDE HCL 5 MG TABLET GT SCH ×3 (05:41→21:46)
[2020-04-16] MEDS: MIDODRINE HCL 10 MG TABLET GT SCH ×3 (05:48→21:46)
--- NOTE | 2020-04-16 06:58 | NUR ---
No A/R to flu vaccine, afebrile.
[2020-04-16 07:19] VITALS: BP 95/68
[2020-04-16 07:33] VITALS: BP 92/51
[2020-04-16] MEDS: DESMOPRESSIN 0.1 MG TABLET GT SCH (08:38)
[2020-04-16] MEDS: POTASSIUM CHLORIDE 40 MEQ/30 ML LIQUID UDC GT SCH (08:38)
[2020-04-16] MEDS: PHENYTOIN 100 MG/4 ML UDC GT SCH ×2 (08:38→20:47)
[2020-04-16] MEDS: ACIDOPHILUS/BULGARICUS CHEW TAB GT SCH ×2 (08:38→20:47)
[2020-04-16] MEDS: FUROSEMIDE 20 MG/2 ML GT SCH (08:38)
[2020-04-16] MEDS: levETIRAcetam 500 MG/5 ML LIQUID UDC GT SCH ×2 (08:38→20:47)
[2020-04-16] MEDS: COD LIVER OIL/ZINC OXIDE OINT 113 GM TUBE TOP SCH ×2 (08:39→20:47)
[2020-04-16] MEDS: HYDROGEN PEROXIDE 3% 118 ML BOTTLE TP SCH ×2 (09:45→21:39)
--- NOTE | 2020-04-16 13:30 | NUR ---
SEEN BY EMMY Agustin AND O.
--- NOTE | 2020-04-16 18:05 | NUR ---
SEEN BY SHERINE DE PAZ AND WITH NNO.
[2020-04-16 20:46] VITALS: BP 98/68
[2020-04-16] MEDS: CHOLECALCIFEROL 1,000 UNIT TABLET GT SCH (20:47)
[2020-04-16] MEDS: THIAMINE HCL 100 MG TABLET GT SCH (20:47)
[2020-04-16] MEDS: FOLIC ACID 1 MG TABLET GT SCH (20:47)
[2020-04-17] MEDS: IPRATROPIUM BROMIDE 0.5 MG/2.5 ML NEBU NEB SCH ×6 (02:30→22:30)
[2020-04-17] MEDS: ALBUTEROL SULFATE 2.5 MG/3 ML NEBU NEB SCH ×6 (02:30→22:30)
[2020-04-17] MEDS: MIDODRINE HCL 10 MG TABLET GT SCH ×3 (05:02→21:25)
[2020-04-17] MEDS: BACLOFEN 10 MG TABLET GT SCH ×3 (05:02→21:25)
[2020-04-17] MEDS: OMEPRAZOLE 20 MG CAPSULE.DR GT SCH (05:02)
[2020-04-17] MEDS: BACLOFEN 20 MG TABLET GT SCH ×3 (05:02→21:25)
[2020-04-17] MEDS: METOCLOPRAMIDE HCL 5 MG TABLET GT SCH ×3 (05:02→21:25)
[2020-04-17 06:39] LABS: BASOPHILS # (AUTO) 0.1 K/uL (0.0-8.0); BASOPHILS % (AUTO) 0.6 % (0.0-2.0); CARBON DIOXIDE 23 mmol/L (21-32); CHLORIDE 116 mmol/L (98-107); CREATININE 0.5 mg/dL (0.6-1.3); EOSINOPHILS # (AUTO) 0.3 K/uL (0.0-0.7); EOSINOPHILS % (AUTO) 3.4 % (0.0-7.0); GLUCOSE 97 mg/dL (74-106); HEMATOCRIT 32.1 % (31.2-41.9); LYMPHOCYTES # (AUTO) 1.3 K/uL (20.0-40.0); MAGNESIUM 1.9 mg/dL (1.8-2.4); MEAN CORPUSCULAR HEMOGLOBIN 31.6 uug (24.7-32.8); MEAN CORPUSCULAR HGB CONC 34 g/dL (32.3-35.6); MEAN CORPUSCULAR VOLUME 92.2 fL (75.5-95.3); MONOCYTES # (AUTO) 0.4 K/uL (2.0-10.0); MONOCYTES % (AUTO) 3.9 % (0.0-11.0); NEUTROPHILS # (AUTO) 7.3 K/uL (1.8-8.9); NEUTROPHILS % (AUTO) 78.1 % (38.5-71.5); PHOSPHOROUS 3.3 mg/dL (2.5-4.9); PLATELET COUNT (AUTO) 221 K/uL (179-408); POTASSIUM 3.5 mmol/L (3.5-5.1); RED BLOOD CELL COUNT(AUTO) 3.48 MIL/uL (3.63-4.92); UREA NITROGEN, BLOOD 18 mg/dL (7-18); WHITE BLOOD COUNT (AUTO) 9.4 K/uL (3.8-11.8)
[2020-04-17 07:40] VITALS: BP 99/60
[2020-04-17] MEDS: HYDROGEN PEROXIDE 3% 118 ML BOTTLE TP SCH ×2 (08:13→21:38)
[2020-04-17] MEDS: DESMOPRESSIN 0.1 MG TABLET GT SCH (08:28)
[2020-04-17] MEDS: ACIDOPHILUS/BULGARICUS CHEW TAB GT SCH ×2 (08:29→21:22)
[2020-04-17] MEDS: COD LIVER OIL/ZINC OXIDE OINT 113 GM TUBE TOP SCH ×2 (08:29→21:25)
[2020-04-17] MEDS: FUROSEMIDE 20 MG/2 ML GT SCH (08:29)
[2020-04-17] MEDS: POTASSIUM CHLORIDE 40 MEQ/30 ML LIQUID UDC GT SCH (08:29)
[2020-04-17] MEDS: PHENYTOIN 100 MG/4 ML UDC GT SCH ×2 (08:29→21:21)
[2020-04-17] MEDS: levETIRAcetam 500 MG/5 ML LIQUID UDC GT SCH ×2 (08:29→21:24)
[2020-04-17 20:24] VITALS: BP 98/55
[2020-04-17] MEDS: FOLIC ACID 1 MG TABLET GT SCH (21:24)
[2020-04-17] MEDS: THIAMINE HCL 100 MG TABLET GT SCH (21:25)
[2020-04-17] MEDS: CHOLECALCIFEROL 1,000 UNIT TABLET GT SCH (21:25)
[2020-04-18] MEDS: IPRATROPIUM BROMIDE 0.5 MG/2.5 ML NEBU NEB SCH ×6 (02:30→23:04)
[2020-04-18] MEDS: ALBUTEROL SULFATE 2.5 MG/3 ML NEBU NEB SCH ×6 (02:30→23:04)
[2020-04-18] MEDS: OMEPRAZOLE 20 MG CAPSULE.DR GT SCH (05:54)
[2020-04-18] MEDS: MIDODRINE HCL 10 MG TABLET GT SCH ×3 (05:54→21:12)
[2020-04-18] MEDS: BACLOFEN 10 MG TABLET GT SCH ×3 (05:54→21:11)
[2020-04-18] MEDS: BACLOFEN 20 MG TABLET GT SCH ×3 (05:54→21:11)
[2020-04-18] MEDS: METOCLOPRAMIDE HCL 5 MG TABLET GT SCH ×3 (05:55→21:11)
[2020-04-18] MEDS: HYDROGEN PEROXIDE 3% 118 ML BOTTLE TP SCH ×2 (07:17→21:05)
[2020-04-18 07:48] VITALS: BP 119/80
[2020-04-18] MEDS: COD LIVER OIL/ZINC OXIDE OINT 113 GM TUBE TOP SCH ×2 (08:40→21:11)
[2020-04-18] MEDS: DESMOPRESSIN 0.1 MG TABLET GT SCH (08:40)
[2020-04-18] MEDS: PHENYTOIN 100 MG/4 ML UDC GT SCH ×2 (08:40→21:08)
[2020-04-18] MEDS: ACIDOPHILUS/BULGARICUS CHEW TAB GT SCH ×2 (08:40→21:09)
[2020-04-18] MEDS: FUROSEMIDE 20 MG/2 ML GT SCH (08:40)
[2020-04-18] MEDS: POTASSIUM CHLORIDE 40 MEQ/30 ML LIQUID UDC GT SCH (08:40)
[2020-04-18] MEDS: levETIRAcetam 500 MG/5 ML LIQUID UDC GT SCH ×2 (08:40→21:10)
--- NOTE | 2020-04-18 16:49 | NUR ---
Seen and examined by Dr Meyer,with new orders to increase water flushes to 200 ml 4 times a day due to increase sodium level.
--- NOTE | 2020-04-18 18:00 | NUR ---
Seen by Dr Wagner,no new orders noted.
--- NOTE | 2020-04-18 19:30 | NUR ---
Mother was concerned regarding indurations or discolorations on the abdomen,check with 2 nurses,no abdominal induration o discolorations noted. Addendum: 04/18/20 at 2023 by MECHELLE GUERRERO RN Error in charting
[2020-04-18 20:11] VITALS: BP 97/50
[2020-04-18] MEDS: FOLIC ACID 1 MG TABLET GT SCH (21:10)
[2020-04-18] MEDS: THIAMINE HCL 100 MG TABLET GT SCH (21:11)
[2020-04-18] MEDS: CHOLECALCIFEROL 1,000 UNIT TABLET GT SCH (21:11)
[2020-04-19] MEDS: IPRATROPIUM BROMIDE 0.5 MG/2.5 ML NEBU NEB SCH ×6 (03:06→23:08)
[2020-04-19] MEDS: ALBUTEROL SULFATE 2.5 MG/3 ML NEBU NEB SCH ×6 (03:06→23:08)
[2020-04-19] MEDS: MIDODRINE HCL 10 MG TABLET GT SCH ×3 (06:00→22:22)
[2020-04-19] MEDS: BACLOFEN 20 MG TABLET GT SCH ×3 (06:09→22:22)
[2020-04-19] MEDS: BACLOFEN 10 MG TABLET GT SCH ×3 (06:09→22:22)
[2020-04-19] MEDS: OMEPRAZOLE 20 MG CAPSULE.DR GT SCH (06:11)
[2020-04-19] MEDS: METOCLOPRAMIDE HCL 5 MG TABLET GT SCH ×3 (06:12→22:22)
[2020-04-19 07:25] VITALS: BP 90/55
[2020-04-19] MEDS: ACIDOPHILUS/BULGARICUS CHEW TAB GT SCH ×2 (08:41→21:00)
[2020-04-19] MEDS: DESMOPRESSIN 0.1 MG TABLET GT SCH (08:41)
[2020-04-19] MEDS: PHENYTOIN 100 MG/4 ML UDC GT SCH ×2 (08:41→21:00)
[2020-04-19] MEDS: levETIRAcetam 500 MG/5 ML LIQUID UDC GT SCH ×2 (08:42→21:00)
[2020-04-19] MEDS: FUROSEMIDE 20 MG/2 ML GT SCH (08:43)
[2020-04-19] MEDS: POTASSIUM CHLORIDE 40 MEQ/30 ML LIQUID UDC GT SCH (08:43)
[2020-04-19] MEDS: COD LIVER OIL/ZINC OXIDE OINT 113 GM TUBE TOP SCH ×2 (08:44→21:00)
[2020-04-19] MEDS: HYDROGEN PEROXIDE 3% 118 ML BOTTLE TP SCH ×2 (09:00→21:23)
--- NOTE | 2020-04-19 11:56 | NUR ---
JOSUÉ called patient's family sales representative public utilities Bernardino [phone] and informed her of possible COVID-19 exposure on the subacute unit. JOSUÉ also informed Bernardino of the testing plan for the next 14 days, as mandated by [facility] regulations. JOSUÉ stated that Bernardino would be notified by nursing after each test result. Bernardino expressed understanding and thanked this SW for the information provided, and stated that she would relay the information to patient's mother who lives in [facility].
[2020-04-19 20:35] VITALS: BP 91/55
[2020-04-19] MEDS: FOLIC ACID 1 MG TABLET GT SCH (21:00)
[2020-04-19] MEDS: CHOLECALCIFEROL 1,000 UNIT TABLET GT SCH (21:00)
[2020-04-19] MEDS: THIAMINE HCL 100 MG TABLET GT SCH (21:00)
[2020-04-19] MEDS: VITAL AF 1.2 1,000 ML LIQUID GT SCH (22:15)
--- NOTE | 2020-04-20 01:18 | NUR ---
Patient is afebrile, No respiratory distress noted, 02 sat is 100%, will continue monitor.
[2020-04-20] MEDS: ALBUTEROL SULFATE 2.5 MG/3 ML NEBU NEB SCH ×5 (03:00→20:16)
[2020-04-20] MEDS: IPRATROPIUM BROMIDE 0.5 MG/2.5 ML NEBU NEB SCH ×5 (03:00→20:16)
[2020-04-20] MEDS: BACLOFEN 10 MG TABLET GT SCH ×3 (05:56→21:22)
[2020-04-20] MEDS: BACLOFEN 20 MG TABLET GT SCH ×3 (05:56→21:22)
[2020-04-20] MEDS: METOCLOPRAMIDE HCL 5 MG TABLET GT SCH ×3 (05:57→21:22)
[2020-04-20] MEDS: MIDODRINE HCL 10 MG TABLET GT SCH ×3 (05:57→21:22)
[2020-04-20] MEDS: OMEPRAZOLE 20 MG CAPSULE.DR GT SCH (05:57)
[2020-04-20 07:37] VITALS: BP 120/71
[2020-04-20] MEDS: DESMOPRESSIN 0.1 MG TABLET GT SCH (08:20)
[2020-04-20] MEDS: FUROSEMIDE 20 MG/2 ML GT SCH (08:21)
[2020-04-20] MEDS: PHENYTOIN 100 MG/4 ML UDC GT SCH ×2 (08:21→20:14)
[2020-04-20] MEDS: COD LIVER OIL/ZINC OXIDE OINT 113 GM TUBE TOP SCH ×2 (08:21→20:15)
[2020-04-20] MEDS: ACIDOPHILUS/BULGARICUS CHEW TAB GT SCH ×2 (08:21→20:14)
[2020-04-20] MEDS: POTASSIUM CHLORIDE 40 MEQ/30 ML LIQUID UDC GT SCH (08:21)
[2020-04-20] MEDS: levETIRAcetam 500 MG/5 ML LIQUID UDC GT SCH ×2 (08:21→20:14)
[2020-04-20] MEDS: HYDROGEN PEROXIDE 3% 118 ML BOTTLE TP SCH ×2 (09:30→21:00)
[2020-04-20 19:57] VITALS: BP 113/64
[2020-04-20] MEDS: FOLIC ACID 1 MG TABLET GT SCH (20:14)
[2020-04-20] MEDS: THIAMINE HCL 100 MG TABLET GT SCH (20:14)
[2020-04-20] MEDS: CHOLECALCIFEROL 1,000 UNIT TABLET GT SCH (20:15)
[2020-04-21] MEDS: IPRATROPIUM BROMIDE 0.5 MG/2.5 ML NEBU NEB SCH ×7 (00:14→22:30)
[2020-04-21] MEDS: ALBUTEROL SULFATE 2.5 MG/3 ML NEBU NEB SCH ×7 (00:14→22:30)
[2020-04-21] MEDS: BACLOFEN 20 MG TABLET GT SCH ×3 (05:01→21:08)
[2020-04-21] MEDS: BACLOFEN 10 MG TABLET GT SCH ×3 (05:01→21:08)
[2020-04-21] MEDS: MIDODRINE HCL 10 MG TABLET GT SCH ×3 (05:01→21:09)
[2020-04-21] MEDS: OMEPRAZOLE 20 MG CAPSULE.DR GT SCH (05:02)
[2020-04-21] MEDS: METOCLOPRAMIDE HCL 5 MG TABLET GT SCH ×3 (05:02→21:09)
[2020-04-21] MEDS: HYDROGEN PEROXIDE 3% 118 ML BOTTLE TP SCH ×2 (07:13→21:02)
[2020-04-21 07:27] VITALS: BP 120/61
[2020-04-21 07:42] VITALS: BP 101/59
[2020-04-21] MEDS: DESMOPRESSIN 0.1 MG TABLET GT SCH (08:29)
[2020-04-21] MEDS: levETIRAcetam 500 MG/5 ML LIQUID UDC GT SCH ×2 (08:29→20:15)
[2020-04-21] MEDS: ACIDOPHILUS/BULGARICUS CHEW TAB GT SCH ×2 (08:29→20:15)
[2020-04-21] MEDS: FUROSEMIDE 20 MG/2 ML GT SCH (08:30)
[2020-04-21] MEDS: POTASSIUM CHLORIDE 40 MEQ/30 ML LIQUID UDC GT SCH (08:30)
[2020-04-21] MEDS: COD LIVER OIL/ZINC OXIDE OINT 113 GM TUBE TOP SCH ×2 (08:31→20:15)
[2020-04-21] MEDS: PHENYTOIN 100 MG/4 ML UDC GT SCH ×2 (08:32→20:15)
[2020-04-21] MEDS: VITAL AF 1.2 1,000 ML LIQUID GT SCH (18:00)
[2020-04-21] MEDS: BISACODYL 10 MG SUPP.RECT RC PRN (18:41)
[2020-04-21] MEDS: FOLIC ACID 1 MG TABLET GT SCH (20:15)
[2020-04-21] MEDS: THIAMINE HCL 100 MG TABLET GT SCH (20:15)
[2020-04-21] MEDS: CHOLECALCIFEROL 1,000 UNIT TABLET GT SCH (20:15)
[2020-04-21 20:45] VITALS: BP 88/48
[2020-04-22] MEDS: ALBUTEROL SULFATE 2.5 MG/3 ML NEBU NEB SCH ×6 (02:30→23:59)
[2020-04-22] MEDS: IPRATROPIUM BROMIDE 0.5 MG/2.5 ML NEBU NEB SCH ×6 (02:30→23:59)
[2020-04-22] MEDS: BACLOFEN 10 MG TABLET GT SCH ×3 (05:07→21:05)
[2020-04-22] MEDS: MIDODRINE HCL 10 MG TABLET GT SCH ×3 (05:07→21:05)
[2020-04-22] MEDS: BACLOFEN 20 MG TABLET GT SCH ×3 (05:07→21:05)
[2020-04-22] MEDS: OMEPRAZOLE 20 MG CAPSULE.DR GT SCH (05:08)
[2020-04-22] MEDS: METOCLOPRAMIDE HCL 5 MG TABLET GT SCH ×3 (05:08→21:05)
[2020-04-22 07:38] VITALS: BP 107/60
[2020-04-22] MEDS: DESMOPRESSIN 0.1 MG TABLET GT SCH (08:40)
[2020-04-22] MEDS: PHENYTOIN 100 MG/4 ML UDC GT SCH ×2 (08:40→20:16)
[2020-04-22] MEDS: ACIDOPHILUS/BULGARICUS CHEW TAB GT SCH ×2 (08:41→20:16)
[2020-04-22] MEDS: levETIRAcetam 500 MG/5 ML LIQUID UDC GT SCH ×2 (08:41→20:16)
[2020-04-22] MEDS: FUROSEMIDE 20 MG/2 ML GT SCH (08:42)
[2020-04-22] MEDS: POTASSIUM CHLORIDE 40 MEQ/30 ML LIQUID UDC GT SCH (08:42)
[2020-04-22] MEDS: COD LIVER OIL/ZINC OXIDE OINT 113 GM TUBE TOP SCH ×2 (08:43→20:17)
[2020-04-22] MEDS: HYDROGEN PEROXIDE 3% 118 ML BOTTLE TP SCH ×2 (09:15→21:31)
--- NOTE | 2020-04-22 11:47 | NUR ---
New orders for Covid 19 today.carried out.
[2020-04-22] MEDS: VITAL AF 1.2 1,000 ML LIQUID GT SCH (16:22)
[2020-04-22] MEDS: CHOLECALCIFEROL 1,000 UNIT TABLET GT SCH (20:16)
[2020-04-22] MEDS: FOLIC ACID 1 MG TABLET GT SCH (20:16)
[2020-04-22] MEDS: THIAMINE HCL 100 MG TABLET GT SCH (20:16)
[2020-04-22 20:40] VITALS: BP 97/53
[2020-04-23] MEDS: IPRATROPIUM BROMIDE 0.5 MG/2.5 ML NEBU NEB SCH ×6 (03:59→23:06)
[2020-04-23] MEDS: ALBUTEROL SULFATE 2.5 MG/3 ML NEBU NEB SCH ×6 (03:59→23:06)
[2020-04-23] MEDS: MIDODRINE HCL 10 MG TABLET GT SCH ×3 (05:11→22:48)
[2020-04-23] MEDS: BACLOFEN 10 MG TABLET GT SCH ×3 (05:11→22:48)
[2020-04-23] MEDS: BACLOFEN 20 MG TABLET GT SCH ×3 (05:11→22:48)
[2020-04-23] MEDS: OMEPRAZOLE 20 MG CAPSULE.DR GT SCH (05:11)
[2020-04-23] MEDS: METOCLOPRAMIDE HCL 5 MG TABLET GT SCH ×3 (05:11→22:48)
[2020-04-23] MEDS: HYDROGEN PEROXIDE 3% 118 ML BOTTLE TP SCH ×2 (07:38→21:28)
[2020-04-23 07:55] VITALS: BP 94/57
[2020-04-23] MEDS: DESMOPRESSIN 0.1 MG TABLET GT SCH (08:15)
[2020-04-23] MEDS: PHENYTOIN 100 MG/4 ML UDC GT SCH ×2 (08:15→20:25)
[2020-04-23] MEDS: levETIRAcetam 500 MG/5 ML LIQUID UDC GT SCH ×2 (08:16→20:25)
[2020-04-23] MEDS: ACIDOPHILUS/BULGARICUS CHEW TAB GT SCH ×2 (08:16→20:25)
[2020-04-23] MEDS: POTASSIUM CHLORIDE 40 MEQ/30 ML LIQUID UDC GT SCH (08:17)
[2020-04-23] MEDS: FUROSEMIDE 20 MG/2 ML GT SCH (08:17)
[2020-04-23] MEDS: COD LIVER OIL/ZINC OXIDE OINT 113 GM TUBE TOP SCH ×2 (08:18→20:26)
[2020-04-23 20:06] VITALS: BP 91/51
[2020-04-23] MEDS: FOLIC ACID 1 MG TABLET GT SCH (20:25)
[2020-04-23] MEDS: CHOLECALCIFEROL 1,000 UNIT TABLET GT SCH (20:26)
[2020-04-23] MEDS: THIAMINE HCL 100 MG TABLET GT SCH (20:26)
--- NOTE | 2020-04-24 01:26 | NUR ---
Received a call from [facility] ( Lab) about the COVID-19 test that was done on Thursday which had resulted and the patient's result is negative.
[2020-04-24] MEDS: IPRATROPIUM BROMIDE 0.5 MG/2.5 ML NEBU NEB SCH ×6 (03:06→23:17)
[2020-04-24] MEDS: ALBUTEROL SULFATE 2.5 MG/3 ML NEBU NEB SCH ×6 (03:06→23:17)
[2020-04-24] MEDS: BACLOFEN 20 MG TABLET GT SCH ×3 (06:37→22:31)
[2020-04-24] MEDS: BACLOFEN 10 MG TABLET GT SCH ×3 (06:37→22:31)
[2020-04-24] MEDS: OMEPRAZOLE 20 MG CAPSULE.DR GT SCH (06:38)
[2020-04-24] MEDS: METOCLOPRAMIDE HCL 5 MG TABLET GT SCH ×3 (06:38→22:32)
[2020-04-24] MEDS: MIDODRINE HCL 10 MG TABLET GT SCH ×3 (06:38→22:32)
[2020-04-24 07:21] VITALS: BP 109/73
[2020-04-24 07:21] LABS: BASOPHILS % (AUTO) 0.6 % (0.0-2.0); EOSINOPHILS # (AUTO) 0.3 K/uL (0.0-0.7); EOSINOPHILS % (AUTO) 5.3 % (0.0-7.0); HEMATOCRIT 28.4 % (31.2-41.9); LYMPHOCYTES # (AUTO) 1.5 K/uL (20.0-40.0); LYMPHOCYTES % (AUTO) 30.8 % (20.5-51.5); MEAN CORPUSCULAR HEMOGLOBIN 31.6 uug (24.7-32.8); MEAN CORPUSCULAR HGB CONC 35 g/dL (32.3-35.6); MONOCYTES # (AUTO) 0.3 K/uL (2.0-10.0); MONOCYTES % (AUTO) 5.6 % (0.0-11.0); NEUTROPHILS # (AUTO) 2.7 K/uL (1.8-8.9); NEUTROPHILS % (AUTO) 57.7 % (38.5-71.5); PLATELET COUNT (AUTO) 210 K/uL (179-408); RED BLOOD CELL COUNT(AUTO) 3.15 MIL/uL (3.63-4.92); WHITE BLOOD COUNT (AUTO) 4.7 K/uL (3.8-11.8)
[2020-04-24 07:45] LABS: CARBON DIOXIDE 22 mmol/L (21-32); CHLORIDE 98 mmol/L (98-107); CREATININE 0.4 mg/dL (0.6-1.3); GLUCOSE 80 mg/dL (74-106); MAGNESIUM 1.9 mg/dL (1.8-2.4); POTASSIUM 4.1 mmol/L (3.5-5.1); UREA NITROGEN, BLOOD 15 mg/dL (7-18)
[2020-04-24] MEDS: HYDROGEN PEROXIDE 3% 118 ML BOTTLE TP SCH ×2 (07:52→20:55)
[2020-04-24] MEDS: DESMOPRESSIN 0.1 MG TABLET GT SCH (08:29)
[2020-04-24] MEDS: ACIDOPHILUS/BULGARICUS CHEW TAB GT SCH ×2 (08:31→20:15)
[2020-04-24] MEDS: PHENYTOIN 100 MG/4 ML UDC GT SCH ×2 (08:31→20:34)
[2020-04-24] MEDS: levETIRAcetam 500 MG/5 ML LIQUID UDC GT SCH ×2 (08:31→20:17)
[2020-04-24] MEDS: FUROSEMIDE 20 MG/2 ML GT SCH (08:32)
[2020-04-24] MEDS: POTASSIUM CHLORIDE 40 MEQ/30 ML LIQUID UDC GT SCH (08:36)
[2020-04-24] MEDS: COD LIVER OIL/ZINC OXIDE OINT 113 GM TUBE TOP SCH ×2 (08:36→20:18)
--- NOTE | 2020-04-24 14:00 | NUR ---
Seen and examined by Marguerite Chicas ,aware of na level is low with new orders noted.
--- NOTE | 2020-04-24 14:19 | NUR ---
temp 94.4f, alexandru house applied, will continue monitoring, seen by Marguerite CALVO, thick secretions noted by rt, PA notified, new orders carried out.
--- NOTE | 2020-04-24 18:03 | NUR ---
Temp 97.9, alexandru hugger removed, repositioned for comfort.
--- NOTE | 2020-04-24 18:31 | NUR ---
Zelda pt responsible libertarian notified COVID-19 test result was negative.
[2020-04-24 20:00] VITALS: BP 93/49
[2020-04-24] MEDS: FOLIC ACID 1 MG TABLET GT SCH (20:16)
[2020-04-24] MEDS: THIAMINE HCL 100 MG TABLET GT SCH (20:17)
[2020-04-24] MEDS: CHOLECALCIFEROL 1,000 UNIT TABLET GT SCH (20:18)
[2020-04-25] MEDS: VITAL AF 1.2 1,000 ML LIQUID GT SCH (01:00)
[2020-04-25] MEDS: ALBUTEROL SULFATE 2.5 MG/3 ML NEBU NEB SCH ×6 (03:05→22:30)
[2020-04-25] MEDS: IPRATROPIUM BROMIDE 0.5 MG/2.5 ML NEBU NEB SCH ×6 (03:05→22:30)
[2020-04-25] MEDS: BACLOFEN 10 MG TABLET GT SCH ×3 (05:01→22:00)
[2020-04-25] MEDS: METOCLOPRAMIDE HCL 5 MG TABLET GT SCH ×3 (05:01→22:00)
[2020-04-25] MEDS: BACLOFEN 20 MG TABLET GT SCH ×3 (05:01→22:00)
[2020-04-25] MEDS: MIDODRINE HCL 10 MG TABLET GT SCH ×3 (05:01→22:00)
[2020-04-25] MEDS: OMEPRAZOLE 20 MG CAPSULE.DR GT SCH (05:01)
[2020-04-25 07:01] LABS: BASOPHILS % (AUTO) 0.5 % (0.0-2.0); EOSINOPHILS # (AUTO) 0.2 K/uL (0.0-0.7); EOSINOPHILS % (AUTO) 3.5 % (0.0-7.0); HEMATOCRIT 26.9 % (31.2-41.9); HEMOGLOBIN 9.5 g/dL (10.9-14.3); LYMPHOCYTES # (AUTO) 1.4 K/uL (20.0-40.0); LYMPHOCYTES % (AUTO) 22.2 % (20.5-51.5); MEAN CORPUSCULAR HEMOGLOBIN 31.9 uug (24.7-32.8); MEAN CORPUSCULAR HGB CONC 35 g/dL (32.3-35.6); MEAN CORPUSCULAR VOLUME 90.5 fL (75.5-95.3); MONOCYTES # (AUTO) 0.2 K/uL (2.0-10.0); NEUTROPHILS # (AUTO) 4.4 K/uL (1.8-8.9); NEUTROPHILS % (AUTO) 70.8 % (38.5-71.5); PLATELET COUNT (AUTO) 207 K/uL (179-408); RED BLOOD CELL COUNT(AUTO) 2.97 MIL/uL (3.63-4.92); WHITE BLOOD COUNT (AUTO) 6.2 K/uL (3.8-11.8)
[2020-04-25 07:20] LABS: ALANINE AMINOTRANSFERASE 59 U/L (14-59); ALKALINE PHOSPHATASE 168 U/L (50-136); ASPARTATE AMINOTRANSFERASE 18 U/L (15-37); BILIRUBIN,TOTAL 0.1 mg/dL (0.2-1.0); CARBON DIOXIDE 22 mmol/L (21-32); CHLORIDE 99 mmol/L (98-107); CREATININE 0.5 mg/dL (0.6-1.3); GLUCOSE 91 mg/dL (74-106); POTASSIUM 4.2 mmol/L (3.5-5.1); TOTAL PROTEIN, SERUM 6.2 g/dL (6.4-8.2); UREA NITROGEN, BLOOD 14 mg/dL (7-18)
[2020-04-25 07:35] VITALS: BP 97/58
[2020-04-25] MEDS: HYDROGEN PEROXIDE 3% 118 ML BOTTLE TP SCH ×2 (08:20→21:32)
[2020-04-25] MEDS: PHENYTOIN 100 MG/4 ML UDC GT SCH ×2 (08:53→20:21)
[2020-04-25] MEDS: POTASSIUM CHLORIDE 40 MEQ/30 ML LIQUID UDC GT SCH (08:53)
[2020-04-25] MEDS: ACIDOPHILUS/BULGARICUS CHEW TAB GT SCH ×2 (08:53→20:23)
[2020-04-25] MEDS: levETIRAcetam 500 MG/5 ML LIQUID UDC GT SCH ×2 (08:53→20:25)
[2020-04-25] MEDS: DESMOPRESSIN 0.1 MG TABLET GT SCH (08:53)
[2020-04-25] MEDS: FUROSEMIDE 20 MG/2 ML GT SCH (08:53)
[2020-04-25] MEDS: COD LIVER OIL/ZINC OXIDE OINT 113 GM TUBE TOP SCH ×2 (08:53→20:26)
--- NOTE | 2020-04-25 18:40 | NUR ---
Pt received on HT-50 ventilator with the following settings of SIMV-12, Vt-500, PEEP+5, PS-10, FIO2-2LPM bleed in, trached with Shiley#6 DCT trach, which is in the place and secure. No respiratory distress noted. Airway care done, pt responded to physical stimuli. In-line HHN tx with 2.5mg Albuterol+0.5mg Atrovent given, no adverse reaction noted. HME changed. Pt has a gauze between her lips, to prevent biting. Resus. bag and back up trach placed in room. Vent and alarms checked and reset.
[2020-04-25] MEDS: FOLIC ACID 1 MG TABLET GT SCH (20:24)
[2020-04-25] MEDS: THIAMINE HCL 100 MG TABLET GT SCH (20:26)
[2020-04-25] MEDS: CHOLECALCIFEROL 1,000 UNIT TABLET GT SCH (20:26)
[2020-04-25 20:31] VITALS: BP 92/42
[2020-04-26] MEDS: IPRATROPIUM BROMIDE 0.5 MG/2.5 ML NEBU NEB SCH ×6 (02:30→22:30)
[2020-04-26] MEDS: ALBUTEROL SULFATE 2.5 MG/3 ML NEBU NEB SCH ×6 (02:30→22:30)
[2020-04-26] MEDS: BACLOFEN 20 MG TABLET GT SCH ×3 (05:30→22:00)
[2020-04-26] MEDS: BACLOFEN 10 MG TABLET GT SCH ×3 (05:30→22:00)
[2020-04-26] MEDS: MIDODRINE HCL 10 MG TABLET GT SCH ×3 (05:31→22:00)
[2020-04-26] MEDS: OMEPRAZOLE 20 MG CAPSULE.DR GT SCH (05:31)
[2020-04-26] MEDS: METOCLOPRAMIDE HCL 5 MG TABLET GT SCH ×3 (05:31→22:00)
[2020-04-26 07:27] VITALS: BP 94/57
[2020-04-26] MEDS: POTASSIUM CHLORIDE 40 MEQ/30 ML LIQUID UDC GT SCH (08:24)
[2020-04-26] MEDS: levETIRAcetam 500 MG/5 ML LIQUID UDC GT SCH ×2 (08:24→20:09)
[2020-04-26] MEDS: DESMOPRESSIN 0.1 MG TABLET GT SCH (08:24)
[2020-04-26] MEDS: PHENYTOIN 100 MG/4 ML UDC GT SCH ×2 (08:24→20:42)
[2020-04-26] MEDS: FUROSEMIDE 20 MG/2 ML GT SCH (08:24)
[2020-04-26] MEDS: ACIDOPHILUS/BULGARICUS CHEW TAB GT SCH ×2 (08:24→20:09)
[2020-04-26] MEDS: COD LIVER OIL/ZINC OXIDE OINT 113 GM TUBE TOP SCH ×2 (08:24→20:13)
[2020-04-26] MEDS: HYDROGEN PEROXIDE 3% 118 ML BOTTLE TP SCH ×2 (08:38→21:44)
--- NOTE | 2020-04-26 16:00 | NUR ---
SEEN BY DR. DEEJAY Hradwick AND WITH NEW ORDERS CARRIED OUT AND SEEN BY DR. WORTHINGTON AND WITH NNO.
--- NOTE | 2020-04-26 18:30 | NUR ---
Pt received on HT-50 ventilator with the following settings of SIMV-12, Vt-500, PEEP+5, PS-10, FIO2-2LPM bleed in, trached with Shiley#6 DCT trach, which is in the place and secure. No distress noted. Airway care done, pt responded to physical stimuli. In-line HHN tx with 2.5mg Albuterol+0.5mg Atrovent given, no adverse reaction noted. HME changed. Pt has a gauze between her lips, to prevent biting. Resus. bag and back up trach placed in room. Vent and alarms checked and reset.
[2020-04-26 20:00] VITALS: BP 124/85
[2020-04-26] MEDS: FOLIC ACID 1 MG TABLET GT SCH (20:09)
[2020-04-26] MEDS: THIAMINE HCL 100 MG TABLET GT SCH (20:10)
[2020-04-26] MEDS: CHOLECALCIFEROL 1,000 UNIT TABLET GT SCH (20:12)
[2020-04-27] MEDS: IPRATROPIUM BROMIDE 0.5 MG/2.5 ML NEBU NEB SCH ×6 (02:30→23:25)
[2020-04-27] MEDS: ALBUTEROL SULFATE 2.5 MG/3 ML NEBU NEB SCH ×6 (02:30→23:25)
[2020-04-27] MEDS: BACLOFEN 20 MG TABLET GT SCH ×3 (06:07→21:43)
[2020-04-27] MEDS: MIDODRINE HCL 10 MG TABLET GT SCH ×3 (06:07→21:44)
[2020-04-27] MEDS: BACLOFEN 10 MG TABLET GT SCH ×3 (06:07→21:43)
[2020-04-27] MEDS: METOCLOPRAMIDE HCL 5 MG TABLET GT SCH ×3 (06:08→21:44)
[2020-04-27] MEDS: OMEPRAZOLE 20 MG CAPSULE.DR GT SCH (06:08)
[2020-04-27 07:31] LABS: BASOPHILS % (AUTO) 0.9 % (0.0-2.0); EOSINOPHILS # (AUTO) 0.3 K/uL (0.0-0.7); EOSINOPHILS % (AUTO) 6.4 % (0.0-7.0); HEMATOCRIT 25.5 % (31.2-41.9); HEMOGLOBIN 9.1 g/dL (10.9-14.3); LYMPHOCYTES # (AUTO) 1.5 K/uL (20.0-40.0); LYMPHOCYTES % (AUTO) 32.4 % (20.5-51.5); MEAN CORPUSCULAR HEMOGLOBIN 31.8 uug (24.7-32.8); MEAN CORPUSCULAR HGB CONC 36 g/dL (32.3-35.6); MEAN CORPUSCULAR VOLUME 89.4 fL (75.5-95.3); MONOCYTES # (AUTO) 0.3 K/uL (2.0-10.0); MONOCYTES % (AUTO) 5.9 % (0.0-11.0); NEUTROPHILS # (AUTO) 2.4 K/uL (1.8-8.9); NEUTROPHILS % (AUTO) 54.4 % (38.5-71.5); PLATELET COUNT (AUTO) 216 K/uL (179-408); RED BLOOD CELL COUNT(AUTO) 2.85 MIL/uL (3.63-4.92); WHITE BLOOD COUNT (AUTO) 4.5 K/uL (3.8-11.8)
[2020-04-27 07:42] VITALS: BP 99/56
[2020-04-27 07:44] LABS: CARBON DIOXIDE 22 mmol/L (21-32); CHLORIDE 95 mmol/L (98-107); CREATININE 0.3 mg/dL (0.6-1.3); GLUCOSE 81 mg/dL (74-106); MAGNESIUM 1.9 mg/dL (1.8-2.4); PHOSPHOROUS 3.5 mg/dL (2.5-4.9); POTASSIUM 3.3 mmol/L (3.5-5.1); UREA NITROGEN, BLOOD 16 mg/dL (7-18)
[2020-04-27] MEDS: DESMOPRESSIN 0.1 MG TABLET GT SCH (08:21)
[2020-04-27] MEDS: PHENYTOIN 100 MG/4 ML UDC GT SCH ×2 (08:22→20:10)
[2020-04-27] MEDS: ACIDOPHILUS/BULGARICUS CHEW TAB GT SCH ×2 (08:23→20:10)
[2020-04-27] MEDS: levETIRAcetam 500 MG/5 ML LIQUID UDC GT SCH ×2 (08:23→20:10)
[2020-04-27] MEDS: FUROSEMIDE 20 MG/2 ML GT SCH (08:24)
[2020-04-27] MEDS: POTASSIUM CHLORIDE 40 MEQ/30 ML LIQUID UDC GT SCH (08:24)
[2020-04-27] MEDS: COD LIVER OIL/ZINC OXIDE OINT 113 GM TUBE TOP SCH ×2 (08:25→20:12)
[2020-04-27] MEDS: HYDROGEN PEROXIDE 3% 118 ML BOTTLE TP SCH ×2 (09:05→20:28)
--- NOTE | 2020-04-27 09:38 | NUR ---
NEW ORDER WAS CARRIED OUT FROM HSilas Shaikh/T POTASSIUM LEVEL 3.3.
[2020-04-27] MEDS: VITAL AF 1.2 1,000 ML LIQUID GT SCH (16:38)
[2020-04-27] MEDS: BISACODYL 10 MG SUPP.RECT RC PRN (18:09)
[2020-04-27 20:00] VITALS: BP 93/56
[2020-04-27] MEDS: FOLIC ACID 1 MG TABLET GT SCH (20:10)
[2020-04-27] MEDS: THIAMINE HCL 100 MG TABLET GT SCH (20:12)
[2020-04-27] MEDS: CHOLECALCIFEROL 1,000 UNIT TABLET GT SCH (20:12)
--- NOTE | 2020-04-27 21:46 | NUR ---
Afebrile, trach intact and patent, no signs of any distress noted, B/P:93/56 HR: 63, no signs of any respiratory distress noted, fluids given as ordered, no signs of any pain or discomfort noted, kept clean and comfortable.
[2020-04-28] MEDS: IPRATROPIUM BROMIDE 0.5 MG/2.5 ML NEBU NEB SCH ×6 (03:20→23:30)
[2020-04-28] MEDS: ALBUTEROL SULFATE 2.5 MG/3 ML NEBU NEB SCH ×6 (03:20→23:30)
[2020-04-28] MEDS: BACLOFEN 10 MG TABLET GT SCH ×3 (05:03→22:29)
[2020-04-28] MEDS: BACLOFEN 20 MG TABLET GT SCH ×3 (05:03→22:29)
[2020-04-28] MEDS: OMEPRAZOLE 20 MG CAPSULE.DR GT SCH (05:03)
[2020-04-28] MEDS: MIDODRINE HCL 10 MG TABLET GT SCH ×3 (05:03→22:30)
[2020-04-28] MEDS: METOCLOPRAMIDE HCL 5 MG TABLET GT SCH ×3 (05:03→22:30)
[2020-04-28 07:36] VITALS: BP 99/52
[2020-04-28] MEDS: HYDROGEN PEROXIDE 3% 118 ML BOTTLE TP SCH ×2 (07:50→21:47)
[2020-04-28] MEDS: DESMOPRESSIN 0.1 MG TABLET GT SCH (08:20)
[2020-04-28] MEDS: PHENYTOIN 100 MG/4 ML UDC GT SCH ×2 (08:20→20:10)
[2020-04-28] MEDS: levETIRAcetam 500 MG/5 ML LIQUID UDC GT SCH ×2 (08:21→20:10)
[2020-04-28] MEDS: ACIDOPHILUS/BULGARICUS CHEW TAB GT SCH ×2 (08:21→20:10)
[2020-04-28] MEDS: FUROSEMIDE 20 MG/2 ML GT SCH (08:22)
[2020-04-28] MEDS: COD LIVER OIL/ZINC OXIDE OINT 113 GM TUBE TOP SCH ×2 (08:24→20:11)
[2020-04-28] MEDS: POTASSIUM CHLORIDE 40 MEQ/30 ML LIQUID UDC GT SCH (08:24)
[2020-04-28] MEDS: VITAL AF 1.2 1,000 ML LIQUID GT SCH (17:37)
[2020-04-28] MEDS: FOLIC ACID 1 MG TABLET GT SCH (20:10)
[2020-04-28] MEDS: THIAMINE HCL 100 MG TABLET GT SCH (20:10)
[2020-04-28] MEDS: CHOLECALCIFEROL 1,000 UNIT TABLET GT SCH (20:11)
[2020-04-28 20:17] VITALS: BP 88/49
[2020-04-29] MEDS: ALBUTEROL SULFATE 2.5 MG/3 ML NEBU NEB SCH ×6 (03:38→23:01)
[2020-04-29] MEDS: IPRATROPIUM BROMIDE 0.5 MG/2.5 ML NEBU NEB SCH ×6 (03:38→23:01)
[2020-04-29] MEDS: BACLOFEN 10 MG TABLET GT SCH ×3 (05:15→21:22)
[2020-04-29] MEDS: BACLOFEN 20 MG TABLET GT SCH ×3 (05:15→21:22)
[2020-04-29] MEDS: OMEPRAZOLE 20 MG CAPSULE.DR GT SCH (05:16)
[2020-04-29] MEDS: METOCLOPRAMIDE HCL 5 MG TABLET GT SCH ×3 (05:16→21:22)
[2020-04-29] MEDS: MIDODRINE HCL 10 MG TABLET GT SCH ×3 (05:16→21:22)
[2020-04-29 07:27] VITALS: BP 91/51
[2020-04-29] MEDS: HYDROGEN PEROXIDE 3% 118 ML BOTTLE TP SCH ×2 (07:41→21:20)
[2020-04-29] MEDS: DESMOPRESSIN 0.1 MG TABLET GT SCH (08:35)
[2020-04-29] MEDS: levETIRAcetam 500 MG/5 ML LIQUID UDC GT SCH ×2 (09:00→21:20)
[2020-04-29] MEDS: PHENYTOIN 100 MG/4 ML UDC GT SCH ×2 (09:00→21:20)
[2020-04-29] MEDS: ACIDOPHILUS/BULGARICUS CHEW TAB GT SCH ×2 (09:00→21:20)
[2020-04-29] MEDS: POTASSIUM CHLORIDE 40 MEQ/30 ML LIQUID UDC GT SCH (09:01)
[2020-04-29] MEDS: FUROSEMIDE 20 MG/2 ML GT SCH (09:01)
[2020-04-29] MEDS: COD LIVER OIL/ZINC OXIDE OINT 113 GM TUBE TOP SCH ×2 (09:07→21:21)
[2020-04-29 20:48] VITALS: BP 113/65
[2020-04-29] MEDS: FOLIC ACID 1 MG TABLET GT SCH (21:20)
[2020-04-29] MEDS: THIAMINE HCL 100 MG TABLET GT SCH (21:21)
[2020-04-29] MEDS: CHOLECALCIFEROL 1,000 UNIT TABLET GT SCH (21:21)
[2020-04-29] MEDS: VITAL AF 1.2 1,000 ML LIQUID GT SCH (23:49)
[2020-04-30] MEDS: IPRATROPIUM BROMIDE 0.5 MG/2.5 ML NEBU NEB SCH ×6 (03:02→22:30)
[2020-04-30] MEDS: ALBUTEROL SULFATE 2.5 MG/3 ML NEBU NEB SCH ×6 (03:02→22:30)
[2020-04-30] MEDS: BACLOFEN 10 MG TABLET GT SCH ×3 (05:02→21:11)
[2020-04-30] MEDS: OMEPRAZOLE 20 MG CAPSULE.DR GT SCH (05:02)
[2020-04-30] MEDS: BACLOFEN 20 MG TABLET GT SCH ×3 (05:02→21:11)
[2020-04-30] MEDS: MIDODRINE HCL 10 MG TABLET GT SCH ×3 (05:02→21:12)
[2020-04-30] MEDS: METOCLOPRAMIDE HCL 5 MG TABLET GT SCH ×3 (05:02→21:12)
[2020-04-30 07:24] VITALS: BP 105/61
[2020-04-30] MEDS: FUROSEMIDE 20 MG/2 ML GT SCH (08:53)
[2020-04-30] MEDS: ACIDOPHILUS/BULGARICUS CHEW TAB GT SCH ×2 (08:53→21:07)
[2020-04-30] MEDS: levETIRAcetam 500 MG/5 ML LIQUID UDC GT SCH ×2 (08:53→21:07)
[2020-04-30] MEDS: DESMOPRESSIN 0.1 MG TABLET GT SCH (08:53)
[2020-04-30] MEDS: POTASSIUM CHLORIDE 40 MEQ/30 ML LIQUID UDC GT SCH (08:53)
[2020-04-30] MEDS: PHENYTOIN 100 MG/4 ML UDC GT SCH ×2 (08:53→21:07)
[2020-04-30] MEDS: COD LIVER OIL/ZINC OXIDE OINT 113 GM TUBE TOP SCH ×2 (08:53→21:11)
[2020-04-30] MEDS: HYDROGEN PEROXIDE 3% 118 ML BOTTLE TP SCH ×2 (09:30→21:31)
--- NOTE | 2020-04-30 16:00 | NUR ---
SEEN BY EMMY Agustin AND WITH NNO.SEEN BY DR. LORRI Hardwick AND WITH NEW ORDERS CARRIED OUT.
--- NOTE | 2020-04-30 16:33 | NUR ---
NEW ORDER CARRIED OUT FROM DEEJAY DE PAZ FOR WATER FLUSHES 3 TIMES A DAY.
--- NOTE | 2020-04-30 18:30 | NUR ---
Pt received on HT-50 ventilator with the following settings of SIMV-12, Vt-500, PEEP+5, PS-10, FIO2-2LPM bleed in, trached with Susyley#6 DCT trach, which is in the place and secure. No distress noted. Airway care done, pt responded to physical stimuli. In-line HHN tx with 2.5mg Albuterol+0.5mg Atrovent given, pt tolerated well. HME changed. Pt has a gauze between her lips, to prevent biting. Resus. bag and back up trach placed in room. Vent and alarms checked and reset.
[2020-04-30 20:40] VITALS: BP 109/62
[2020-04-30] MEDS: FOLIC ACID 1 MG TABLET GT SCH (21:07)
[2020-04-30] MEDS: THIAMINE HCL 100 MG TABLET GT SCH (21:10)
[2020-04-30] MEDS: CHOLECALCIFEROL 1,000 UNIT TABLET GT SCH (21:10)
[2020-04-30] MEDS: VITAL AF 1.2 1,000 ML LIQUID GT SCH (23:22)
[2020-05-01] MEDS: IPRATROPIUM BROMIDE 0.5 MG/2.5 ML NEBU NEB SCH ×6 (02:30→22:30)
[2020-05-01] MEDS: ALBUTEROL SULFATE 2.5 MG/3 ML NEBU NEB SCH ×6 (02:30→22:30)
[2020-05-01] MEDS: BACLOFEN 20 MG TABLET GT SCH ×3 (05:28→22:02)
[2020-05-01] MEDS: BACLOFEN 10 MG TABLET GT SCH ×3 (05:28→22:02)
[2020-05-01] MEDS: OMEPRAZOLE 20 MG CAPSULE.DR GT SCH (05:29)
[2020-05-01] MEDS: METOCLOPRAMIDE HCL 5 MG TABLET GT SCH ×3 (05:29→22:03)
[2020-05-01] MEDS: MIDODRINE HCL 10 MG TABLET GT SCH ×3 (05:29→22:00)
[2020-05-01 07:31] LABS: BASOPHILS # (AUTO) 0.1 K/uL (0.0-8.0); BASOPHILS % (AUTO) 0.6 % (0.0-2.0); EOSINOPHILS # (AUTO) 0.4 K/uL (0.0-0.7); EOSINOPHILS % (AUTO) 3.4 % (0.0-7.0); HEMATOCRIT 32.3 % (31.2-41.9); HEMOGLOBIN 11.1 g/dL (10.9-14.3); LYMPHOCYTES # (AUTO) 1.9 K/uL (20.0-40.0); LYMPHOCYTES % (AUTO) 17.3 % (20.5-51.5); MEAN CORPUSCULAR HEMOGLOBIN 31.5 uug (24.7-32.8); MEAN CORPUSCULAR HGB CONC 35 g/dL (32.3-35.6); MEAN CORPUSCULAR VOLUME 91.3 fL (75.5-95.3); MONOCYTES # (AUTO) 0.7 K/uL (2.0-10.0); MONOCYTES % (AUTO) 6.4 % (0.0-11.0); NEUTROPHILS # (AUTO) 7.7 K/uL (1.8-8.9); NEUTROPHILS % (AUTO) 72.3 % (38.5-71.5); PLATELET COUNT (AUTO) 318 K/uL (179-408); RED BLOOD CELL COUNT(AUTO) 3.53 MIL/uL (3.63-4.92); WHITE BLOOD COUNT (AUTO) 10.7 K/uL (3.8-11.8)
[2020-05-01] MEDS: HYDROGEN PEROXIDE 3% 118 ML BOTTLE TP SCH ×2 (07:31→21:13)
[2020-05-01 07:39] LABS: CREATININE 0.6 mg/dL (0.6-1.3); MAGNESIUM 1.9 mg/dL (1.8-2.4); PHOSPHOROUS 4.5 mg/dL (2.5-4.9); POTASSIUM 3.6 mmol/L (3.5-5.1)
[2020-05-01 08:00] VITALS: BP 112/68
[2020-05-01] MEDS: DESMOPRESSIN 0.1 MG TABLET GT SCH (09:00)
[2020-05-01] MEDS: PHENYTOIN 100 MG/4 ML UDC GT SCH ×2 (09:00→20:31)
[2020-05-01] MEDS: FUROSEMIDE 20 MG/2 ML GT SCH (09:00)
[2020-05-01] MEDS: levETIRAcetam 500 MG/5 ML LIQUID UDC GT SCH ×2 (09:00→20:31)
[2020-05-01] MEDS: ACIDOPHILUS/BULGARICUS CHEW TAB GT SCH ×2 (09:00→20:31)
[2020-05-01] MEDS: POTASSIUM CHLORIDE 40 MEQ/30 ML LIQUID UDC GT SCH (09:00)
[2020-05-01] MEDS: COD LIVER OIL/ZINC OXIDE OINT 113 GM TUBE TOP SCH ×2 (09:00→20:31)
--- NOTE | 2020-05-01 18:35 | NUR ---
Received pt on HT-50 ventilator with the following settings of SIMV-12, Vt-500, PEEP+5, PS-10, FIO2-2LPM bleed in, trached with Susyley#6 DCT trach, which is in the place and secure. No s/s of respiratory distress noted. Airway care done, pt responded to physical stimuli. In-line HHN tx with 2.5mg Albuterol+0.5mg Atrovent given, pt tolerated well. HME changed. Pt has a gauze between her lips, to prevent biting. Resus. bag and back up trach placed in room. Vent and alarms checked and reset.
[2020-05-01 20:08] VITALS: BP 109/53
[2020-05-01] MEDS: THIAMINE HCL 100 MG TABLET GT SCH (20:31)
[2020-05-01] MEDS: FOLIC ACID 1 MG TABLET GT SCH (20:31)
[2020-05-01] MEDS: CHOLECALCIFEROL 1,000 UNIT TABLET GT SCH (20:31)
[2020-05-01] MEDS: VITAL AF 1.2 1,000 ML LIQUID GT SCH (20:32)
[2020-05-02] MEDS: ALBUTEROL SULFATE 2.5 MG/3 ML NEBU NEB SCH ×6 (02:30→23:09)
[2020-05-02] MEDS: IPRATROPIUM BROMIDE 0.5 MG/2.5 ML NEBU NEB SCH ×6 (02:30→23:09)
[2020-05-02] MEDS: BACLOFEN 10 MG TABLET GT SCH ×3 (05:57→22:00)
[2020-05-02] MEDS: BACLOFEN 20 MG TABLET GT SCH ×3 (05:58→22:00)
[2020-05-02] MEDS: OMEPRAZOLE 20 MG CAPSULE.DR GT SCH (05:58)
[2020-05-02] MEDS: MIDODRINE HCL 10 MG TABLET GT SCH ×3 (05:58→22:00)
[2020-05-02] MEDS: METOCLOPRAMIDE HCL 5 MG TABLET GT SCH ×3 (05:58→22:00)
[2020-05-02 07:34] VITALS: BP 118/72
[2020-05-02] MEDS: HYDROGEN PEROXIDE 3% 118 ML BOTTLE TP SCH ×2 (08:05→21:46)
[2020-05-02] MEDS: FUROSEMIDE 20 MG/2 ML GT SCH (08:53)
[2020-05-02] MEDS: levETIRAcetam 500 MG/5 ML LIQUID UDC GT SCH ×2 (08:53→20:54)
[2020-05-02] MEDS: COD LIVER OIL/ZINC OXIDE OINT 113 GM TUBE TOP SCH ×2 (08:53→20:52)
[2020-05-02] MEDS: POTASSIUM CHLORIDE 40 MEQ/30 ML LIQUID UDC GT SCH (08:53)
[2020-05-02] MEDS: DESMOPRESSIN 0.1 MG TABLET GT SCH (08:53)
[2020-05-02] MEDS: ACIDOPHILUS/BULGARICUS CHEW TAB GT SCH ×2 (08:53→20:50)
[2020-05-02] MEDS: PHENYTOIN 100 MG/4 ML UDC GT SCH ×2 (08:53→20:50)
[2020-05-02] MEDS: FOLIC ACID 1 MG TABLET GT SCH (20:50)
[2020-05-02] MEDS: THIAMINE HCL 100 MG TABLET GT SCH (20:51)
[2020-05-02] MEDS: CHOLECALCIFEROL 1,000 UNIT TABLET GT SCH (20:52)
[2020-05-02 20:58] VITALS: BP 124/78
[2020-05-03] MEDS: ALBUTEROL SULFATE 2.5 MG/3 ML NEBU NEB SCH ×6 (03:02→23:10)
[2020-05-03] MEDS: IPRATROPIUM BROMIDE 0.5 MG/2.5 ML NEBU NEB SCH ×6 (03:02→23:10)
[2020-05-03] MEDS: MIDODRINE HCL 10 MG TABLET GT SCH ×3 (06:00→22:13)
[2020-05-03] MEDS: OMEPRAZOLE 20 MG CAPSULE.DR GT SCH (06:51)
[2020-05-03] MEDS: METOCLOPRAMIDE HCL 5 MG TABLET GT SCH ×3 (06:51→22:13)
[2020-05-03] MEDS: BACLOFEN 10 MG TABLET GT SCH ×3 (06:51→22:13)
[2020-05-03] MEDS: BACLOFEN 20 MG TABLET GT SCH ×3 (06:51→22:13)
[2020-05-03 07:32] VITALS: BP 109/64
[2020-05-03] MEDS: POTASSIUM CHLORIDE 40 MEQ/30 ML LIQUID UDC GT SCH (08:57)
[2020-05-03] MEDS: COD LIVER OIL/ZINC OXIDE OINT 113 GM TUBE TOP SCH ×2 (08:57→20:35)
[2020-05-03] MEDS: levETIRAcetam 500 MG/5 ML LIQUID UDC GT SCH ×2 (08:57→20:34)
[2020-05-03] MEDS: FUROSEMIDE 20 MG/2 ML GT SCH (08:57)
[2020-05-03] MEDS: ACIDOPHILUS/BULGARICUS CHEW TAB GT SCH ×2 (08:57→20:34)
[2020-05-03] MEDS: DESMOPRESSIN 0.1 MG TABLET GT SCH (08:57)
[2020-05-03] MEDS: PHENYTOIN 100 MG/4 ML UDC GT SCH ×2 (08:57→20:34)
[2020-05-03] MEDS: HYDROGEN PEROXIDE 3% 118 ML BOTTLE TP SCH ×2 (09:17→20:54)
[2020-05-03 20:00] VITALS: BP 94/56
[2020-05-03] MEDS: FOLIC ACID 1 MG TABLET GT SCH (20:34)
[2020-05-03] MEDS: CHOLECALCIFEROL 1,000 UNIT TABLET GT SCH (20:35)
[2020-05-03] MEDS: THIAMINE HCL 100 MG TABLET GT SCH (20:35)
[2020-05-04] MEDS: ALBUTEROL SULFATE 2.5 MG/3 ML NEBU NEB SCH ×6 (03:06→23:11)
[2020-05-04] MEDS: IPRATROPIUM BROMIDE 0.5 MG/2.5 ML NEBU NEB SCH ×6 (03:06→23:11)
[2020-05-04] MEDS: BACLOFEN 10 MG TABLET GT SCH ×3 (05:23→21:54)
[2020-05-04] MEDS: MIDODRINE HCL 10 MG TABLET GT SCH ×3 (05:23→21:54)
[2020-05-04] MEDS: BACLOFEN 20 MG TABLET GT SCH ×3 (05:23→21:54)
[2020-05-04] MEDS: OMEPRAZOLE 20 MG CAPSULE.DR GT SCH (05:24)
[2020-05-04] MEDS: METOCLOPRAMIDE HCL 5 MG TABLET GT SCH ×3 (05:24→21:54)
[2020-05-04 07:26] VITALS: BP 107/60
[2020-05-04] MEDS: DESMOPRESSIN 0.1 MG TABLET GT SCH (08:52)
[2020-05-04] MEDS: PHENYTOIN 100 MG/4 ML UDC GT SCH ×2 (08:52→21:00)
[2020-05-04] MEDS: levETIRAcetam 500 MG/5 ML LIQUID UDC GT SCH ×2 (08:53→21:54)
[2020-05-04] MEDS: ACIDOPHILUS/BULGARICUS CHEW TAB GT SCH ×2 (08:53→21:54)
[2020-05-04] MEDS: POTASSIUM CHLORIDE 40 MEQ/30 ML LIQUID UDC GT SCH (08:54)
[2020-05-04] MEDS: FUROSEMIDE 20 MG/2 ML GT SCH (08:54)
[2020-05-04] MEDS: COD LIVER OIL/ZINC OXIDE OINT 113 GM TUBE TOP SCH ×2 (08:54→21:54)
[2020-05-04] MEDS: HYDROGEN PEROXIDE 3% 118 ML BOTTLE TP SCH ×2 (09:00→21:05)
--- NOTE | 2020-05-04 11:25 | NUR ---
ZOOM PROVIDED TO MOTHER.
[2020-05-04] MEDS: VITAL AF 1.2 1,000 ML LIQUID GT SCH (15:23)
[2020-05-04] MEDS: FOLIC ACID 1 MG TABLET GT SCH (21:54)
[2020-05-04] MEDS: CHOLECALCIFEROL 1,000 UNIT TABLET GT SCH (21:54)
[2020-05-04] MEDS: THIAMINE HCL 100 MG TABLET GT SCH (21:54)
[2020-05-04 22:28] VITALS: BP 93/52
[2020-05-05] MEDS: IPRATROPIUM BROMIDE 0.5 MG/2.5 ML NEBU NEB SCH ×6 (03:20→22:30)
[2020-05-05] MEDS: ALBUTEROL SULFATE 2.5 MG/3 ML NEBU NEB SCH ×6 (03:20→22:30)
[2020-05-05] MEDS: BACLOFEN 10 MG TABLET GT SCH ×3 (05:25→21:38)
[2020-05-05] MEDS: BACLOFEN 20 MG TABLET GT SCH ×3 (05:25→21:38)
[2020-05-05] MEDS: METOCLOPRAMIDE HCL 5 MG TABLET GT SCH ×3 (05:26→21:38)
[2020-05-05] MEDS: OMEPRAZOLE 20 MG CAPSULE.DR GT SCH (05:26)
[2020-05-05] MEDS: MIDODRINE HCL 10 MG TABLET GT SCH ×3 (05:26→21:38)
[2020-05-05 07:39] VITALS: BP 102/61
[2020-05-05] MEDS: DESMOPRESSIN 0.1 MG TABLET GT SCH (08:56)
[2020-05-05] MEDS: PHENYTOIN 100 MG/4 ML UDC GT SCH ×2 (08:58→20:54)
[2020-05-05] MEDS: ACIDOPHILUS/BULGARICUS CHEW TAB GT SCH ×2 (08:58→20:54)
[2020-05-05] MEDS: levETIRAcetam 500 MG/5 ML LIQUID UDC GT SCH ×2 (08:59→20:54)
[2020-05-05] MEDS: FUROSEMIDE 20 MG/2 ML GT SCH (09:00)
[2020-05-05] MEDS: POTASSIUM CHLORIDE 40 MEQ/30 ML LIQUID UDC GT SCH (09:00)
[2020-05-05] MEDS: COD LIVER OIL/ZINC OXIDE OINT 113 GM TUBE TOP SCH ×2 (09:00→20:54)
[2020-05-05] MEDS: HYDROGEN PEROXIDE 3% 118 ML BOTTLE TP SCH ×2 (09:20→20:28)
[2020-05-05] MEDS: VITAL AF 1.2 1,000 ML LIQUID GT SCH (09:53)
[2020-05-05] MEDS: CHOLECALCIFEROL 1,000 UNIT TABLET GT SCH (20:54)
[2020-05-05] MEDS: THIAMINE HCL 100 MG TABLET GT SCH (20:54)
[2020-05-05] MEDS: FOLIC ACID 1 MG TABLET GT SCH (20:54)
[2020-05-05] MEDS: NEOMY/BACITRA/POLYMYXIN B OINT UD PACKET TP SCH (20:54)
[2020-05-05 22:40] VITALS: BP 100/54
[2020-05-06] MEDS: IPRATROPIUM BROMIDE 0.5 MG/2.5 ML NEBU NEB SCH ×6 (02:30→22:30)
[2020-05-06] MEDS: ALBUTEROL SULFATE 2.5 MG/3 ML NEBU NEB SCH ×6 (02:30→22:30)
[2020-05-06] MEDS: VITAL AF 1.2 1,000 ML LIQUID GT SCH (04:44)
[2020-05-06] MEDS: BACLOFEN 10 MG TABLET GT SCH ×3 (05:25→21:07)
[2020-05-06] MEDS: BACLOFEN 20 MG TABLET GT SCH ×3 (05:25→21:07)
[2020-05-06] MEDS: METOCLOPRAMIDE HCL 5 MG TABLET GT SCH ×3 (05:25→21:08)
[2020-05-06] MEDS: OMEPRAZOLE 20 MG CAPSULE.DR GT SCH (05:25)
[2020-05-06] MEDS: MIDODRINE HCL 10 MG TABLET GT SCH ×3 (05:25→21:08)
[2020-05-06 07:23] LABS: BASOPHILS # (AUTO) 0.1 K/uL (0.0-8.0); BASOPHILS % (AUTO) 0.9 % (0.0-2.0); EOSINOPHILS # (AUTO) 0.4 K/uL (0.0-0.7); EOSINOPHILS % (AUTO) 6.3 % (0.0-7.0); HEMATOCRIT 27.3 % (31.2-41.9); HEMOGLOBIN 9.4 g/dL (10.9-14.3); LYMPHOCYTES % (AUTO) 32.4 % (20.5-51.5); MEAN CORPUSCULAR HGB CONC 34 g/dL (32.3-35.6); MEAN CORPUSCULAR VOLUME 90.6 fL (75.5-95.3); MONOCYTES # (AUTO) 0.4 K/uL (2.0-10.0); MONOCYTES % (AUTO) 6.2 % (0.0-11.0); NEUTROPHILS # (AUTO) 3.4 K/uL (1.8-8.9); NEUTROPHILS % (AUTO) 54.2 % (38.5-71.5); PLATELET COUNT (AUTO) 254 K/uL (179-408); RED BLOOD CELL COUNT(AUTO) 3.02 MIL/uL (3.63-4.92); WHITE BLOOD COUNT (AUTO) 6.3 K/uL (3.8-11.8)
[2020-05-06 07:26] LABS: CREATININE 0.7 mg/dL (0.6-1.3)
[2020-05-06 07:52] VITALS: BP 98/61
[2020-05-06] MEDS: HYDROGEN PEROXIDE 3% 118 ML BOTTLE TP SCH ×2 (09:22→21:16)
[2020-05-06] MEDS: DESMOPRESSIN 0.1 MG TABLET GT SCH (09:23)
[2020-05-06] MEDS: ACIDOPHILUS/BULGARICUS CHEW TAB GT SCH ×2 (09:25→21:05)
[2020-05-06] MEDS: levETIRAcetam 500 MG/5 ML LIQUID UDC GT SCH ×2 (09:25→21:05)
[2020-05-06] MEDS: PHENYTOIN 100 MG/4 ML UDC GT SCH ×2 (09:25→21:05)
[2020-05-06] MEDS: FUROSEMIDE 20 MG/2 ML GT SCH (09:26)
[2020-05-06] MEDS: NEOMY/BACITRA/POLYMYXIN B OINT UD PACKET TP SCH ×2 (09:27→21:07)
[2020-05-06] MEDS: COD LIVER OIL/ZINC OXIDE OINT 113 GM TUBE TOP SCH ×2 (09:27→21:07)
[2020-05-06] MEDS: POTASSIUM CHLORIDE 40 MEQ/30 ML LIQUID UDC GT SCH (09:27)
--- NOTE | 2020-05-06 13:00 | NUR ---
Seen and examined by Dr Telles,no new orders noted.
[2020-05-06] MEDS: BISACODYL 10 MG SUPP.RECT RC PRN (17:48)
[2020-05-06] MEDS: FOLIC ACID 1 MG TABLET GT SCH (21:05)
[2020-05-06] MEDS: THIAMINE HCL 100 MG TABLET GT SCH (21:06)
[2020-05-06] MEDS: CHOLECALCIFEROL 1,000 UNIT TABLET GT SCH (21:07)
[2020-05-06 22:59] VITALS: BP 104/56
[2020-05-07] MEDS: ALBUTEROL SULFATE 2.5 MG/3 ML NEBU NEB SCH ×6 (02:30→23:10)
[2020-05-07] MEDS: IPRATROPIUM BROMIDE 0.5 MG/2.5 ML NEBU NEB SCH ×6 (02:30→23:10)
[2020-05-07] MEDS: BACLOFEN 20 MG TABLET GT SCH ×3 (05:50→21:28)
[2020-05-07] MEDS: OMEPRAZOLE 20 MG CAPSULE.DR GT SCH (05:52)
[2020-05-07] MEDS: MIDODRINE HCL 10 MG TABLET GT SCH ×3 (05:52→21:28)
[2020-05-07] MEDS: METOCLOPRAMIDE HCL 5 MG TABLET GT SCH ×3 (05:52→21:28)
[2020-05-07] MEDS: BACLOFEN 10 MG TABLET GT SCH ×3 (06:20→21:27)
[2020-05-07] MEDS: VITAL AF 1.2 1,000 ML LIQUID GT SCH (07:27)
[2020-05-07 07:28] VITALS: BP 106/62
[2020-05-07 07:43] VITALS: BP 96/52
[2020-05-07] MEDS: DESMOPRESSIN 0.1 MG TABLET GT SCH (08:52)
[2020-05-07] MEDS: levETIRAcetam 500 MG/5 ML LIQUID UDC GT SCH ×2 (08:52→21:27)
[2020-05-07] MEDS: ACIDOPHILUS/BULGARICUS CHEW TAB GT SCH ×2 (08:52→21:27)
[2020-05-07] MEDS: PHENYTOIN 100 MG/4 ML UDC GT SCH ×2 (08:52→21:27)
[2020-05-07] MEDS: FUROSEMIDE 20 MG/2 ML GT SCH (08:54)
[2020-05-07] MEDS: POTASSIUM CHLORIDE 40 MEQ/30 ML LIQUID UDC GT SCH (08:54)
[2020-05-07] MEDS: COD LIVER OIL/ZINC OXIDE OINT 113 GM TUBE TOP SCH ×2 (08:55→21:27)
[2020-05-07] MEDS: NEOMY/BACITRA/POLYMYXIN B OINT UD PACKET TP SCH ×2 (08:55→21:27)
[2020-05-07] MEDS: HYDROGEN PEROXIDE 3% 118 ML BOTTLE TP SCH ×2 (09:25→21:31)
[2020-05-07 20:27] VITALS: BP 105/63
[2020-05-07] MEDS: CHOLECALCIFEROL 1,000 UNIT TABLET GT SCH (21:27)
[2020-05-07] MEDS: THIAMINE HCL 100 MG TABLET GT SCH (21:27)
[2020-05-07] MEDS: FOLIC ACID 1 MG TABLET GT SCH (21:27)
[2020-05-08] MEDS: IPRATROPIUM BROMIDE 0.5 MG/2.5 ML NEBU NEB SCH ×6 (03:22→23:12)
[2020-05-08] MEDS: ALBUTEROL SULFATE 2.5 MG/3 ML NEBU NEB SCH ×6 (03:22→23:12)
[2020-05-08] MEDS: BACLOFEN 10 MG TABLET GT SCH ×3 (05:22→21:39)
[2020-05-08] MEDS: BACLOFEN 20 MG TABLET GT SCH ×3 (05:22→21:39)
[2020-05-08] MEDS: METOCLOPRAMIDE HCL 5 MG TABLET GT SCH ×3 (05:23→21:41)
[2020-05-08] MEDS: OMEPRAZOLE 20 MG CAPSULE.DR GT SCH (05:23)
[2020-05-08] MEDS: MIDODRINE HCL 10 MG TABLET GT SCH ×3 (05:23→21:40)
[2020-05-08 07:27] VITALS: BP 111/59
[2020-05-08] MEDS: VITAL AF 1.2 1,000 ML LIQUID GT SCH (07:40)
[2020-05-08 07:43] VITALS: BP 100/62
[2020-05-08] MEDS: DESMOPRESSIN 0.1 MG TABLET GT SCH (08:02)
[2020-05-08] MEDS: PHENYTOIN 100 MG/4 ML UDC GT SCH ×2 (08:03→21:25)
[2020-05-08] MEDS: ACIDOPHILUS/BULGARICUS CHEW TAB GT SCH ×2 (08:05→21:36)
[2020-05-08] MEDS: levETIRAcetam 500 MG/5 ML LIQUID UDC GT SCH ×2 (08:07→21:38)
[2020-05-08] MEDS: FUROSEMIDE 20 MG/2 ML GT SCH (08:08)
[2020-05-08] MEDS: POTASSIUM CHLORIDE 40 MEQ/30 ML LIQUID UDC GT SCH (08:09)
[2020-05-08] MEDS: COD LIVER OIL/ZINC OXIDE OINT 113 GM TUBE TOP SCH ×2 (08:10→21:39)
[2020-05-08] MEDS: NEOMY/BACITRA/POLYMYXIN B OINT UD PACKET TP SCH ×2 (08:11→21:39)
[2020-05-08] MEDS: HYDROGEN PEROXIDE 3% 118 ML BOTTLE TP SCH ×2 (08:43→20:54)
[2020-05-08 15:01] VITALS: BP 102/64
--- NOTE | 2020-05-08 15:32 | NUR ---
INTERDISCIPLINARY PLAN OF CARE CONFERENCE was held today. Patient's family was not available to participate in the meeting. Dr. Wagner and the Interdisciplinary team reviewed the current plan of care in detail. RN reported on the patient's medical condition, sodium levels and treatment plans, along with treatment for lip wound. No major changes in condition were reported by RN or by other disciplines in patient's condition. See RN IDT conference notes. See also all other disciplines IDT notes and physician's progress notes for additional details.
[2020-05-08 20:21] VITALS: BP 113/62
[2020-05-08] MEDS: FOLIC ACID 1 MG TABLET GT SCH (21:37)
[2020-05-08] MEDS: THIAMINE HCL 100 MG TABLET GT SCH (21:39)
[2020-05-08] MEDS: CHOLECALCIFEROL 1,000 UNIT TABLET GT SCH (21:39)
[2020-05-09] MEDS: IPRATROPIUM BROMIDE 0.5 MG/2.5 ML NEBU NEB SCH ×6 (03:14→22:56)
[2020-05-09] MEDS: ALBUTEROL SULFATE 2.5 MG/3 ML NEBU NEB SCH ×6 (03:14→22:56)
[2020-05-09] MEDS: VITAL AF 1.2 1,000 ML LIQUID GT SCH (04:04)
[2020-05-09] MEDS: BACLOFEN 20 MG TABLET GT SCH ×3 (05:48→21:50)
[2020-05-09] MEDS: BACLOFEN 10 MG TABLET GT SCH ×3 (05:48→21:50)
[2020-05-09] MEDS: MIDODRINE HCL 10 MG TABLET GT SCH ×3 (05:48→21:50)
[2020-05-09] MEDS: METOCLOPRAMIDE HCL 5 MG TABLET GT SCH ×3 (05:48→21:51)
[2020-05-09] MEDS: OMEPRAZOLE 20 MG CAPSULE.DR GT SCH (05:48)
[2020-05-09 06:17] LABS: BASOPHILS # (AUTO) 0.1 K/uL (0.0-8.0); BASOPHILS % (AUTO) 0.7 % (0.0-2.0); EOSINOPHILS # (AUTO) 0.7 K/uL (0.0-0.7); EOSINOPHILS % (AUTO) 8.3 % (0.0-7.0); HEMOGLOBIN 10.8 g/dL (10.9-14.3); LYMPHOCYTES # (AUTO) 1.8 K/uL (20.0-40.0); LYMPHOCYTES % (AUTO) 21.1 % (20.5-51.5); MEAN CORPUSCULAR HEMOGLOBIN 31.6 uug (24.7-32.8); MEAN CORPUSCULAR HGB CONC 35 g/dL (32.3-35.6); MEAN CORPUSCULAR VOLUME 90.8 fL (75.5-95.3); MONOCYTES # (AUTO) 0.5 K/uL (2.0-10.0); MONOCYTES % (AUTO) 5.6 % (0.0-11.0); NEUTROPHILS # (AUTO) 5.6 K/uL (1.8-8.9); NEUTROPHILS % (AUTO) 64.3 % (38.5-71.5); PLATELET COUNT (AUTO) 337 K/uL (179-408); RED BLOOD CELL COUNT(AUTO) 3.42 MIL/uL (3.63-4.92); WHITE BLOOD COUNT (AUTO) 8.7 K/uL (3.8-11.8)
[2020-05-09 06:52] LABS: CREATININE 0.7 mg/dL (0.6-1.3); MAGNESIUM 1.7 mg/dL (1.8-2.4); PHOSPHOROUS 3.8 mg/dL (2.5-4.9); POTASSIUM 3.6 mmol/L (3.5-5.1)
[2020-05-09] MEDS: HYDROGEN PEROXIDE 3% 118 ML BOTTLE TP SCH ×2 (07:31→19:20)
[2020-05-09 07:41] VITALS: BP 115/60
[2020-05-09] MEDS: DESMOPRESSIN 0.1 MG TABLET GT SCH (09:08)
[2020-05-09] MEDS: PHENYTOIN 100 MG/4 ML UDC GT SCH ×2 (09:09→21:47)
[2020-05-09] MEDS: ACIDOPHILUS/BULGARICUS CHEW TAB GT SCH ×2 (09:09→21:47)
[2020-05-09] MEDS: levETIRAcetam 500 MG/5 ML LIQUID UDC GT SCH ×2 (09:10→21:49)
[2020-05-09] MEDS: COD LIVER OIL/ZINC OXIDE OINT 113 GM TUBE TOP SCH ×2 (09:11→21:50)
[2020-05-09] MEDS: NEOMY/BACITRA/POLYMYXIN B OINT UD PACKET TP SCH ×2 (09:11→21:50)
[2020-05-09] MEDS: FUROSEMIDE 20 MG/2 ML GT SCH (09:11)
[2020-05-09] MEDS: POTASSIUM CHLORIDE 40 MEQ/30 ML LIQUID UDC GT SCH (09:11)
[2020-05-09 19:59] VITALS: BP 121/67
[2020-05-09] MEDS: FOLIC ACID 1 MG TABLET GT SCH (21:47)
[2020-05-09] MEDS: CHOLECALCIFEROL 1,000 UNIT TABLET GT SCH (21:49)
[2020-05-09] MEDS: THIAMINE HCL 100 MG TABLET GT SCH (21:49)
[2020-05-10] MEDS: ALBUTEROL SULFATE 2.5 MG/3 ML NEBU NEB SCH ×6 (02:45→22:30)
[2020-05-10] MEDS: IPRATROPIUM BROMIDE 0.5 MG/2.5 ML NEBU NEB SCH ×6 (02:45→22:30)
[2020-05-10] MEDS: VITAL AF 1.2 1,000 ML LIQUID GT SCH (04:52)
[2020-05-10] MEDS: BACLOFEN 10 MG TABLET GT SCH ×3 (06:21→21:57)
[2020-05-10] MEDS: BACLOFEN 20 MG TABLET GT SCH ×3 (06:21→21:57)
[2020-05-10] MEDS: METOCLOPRAMIDE HCL 5 MG TABLET GT SCH ×3 (06:22→21:58)
[2020-05-10] MEDS: MIDODRINE HCL 10 MG TABLET GT SCH ×3 (06:22→21:58)
[2020-05-10] MEDS: OMEPRAZOLE 20 MG CAPSULE.DR GT SCH (06:22)
[2020-05-10] MEDS: HYDROGEN PEROXIDE 3% 118 ML BOTTLE TP SCH ×2 (07:52→21:30)
[2020-05-10] MEDS: NEOMY/BACITRA/POLYMYXIN B OINT UD PACKET TP SCH ×3 (09:34→21:57)
[2020-05-10] MEDS: ACIDOPHILUS/BULGARICUS CHEW TAB GT SCH ×2 (09:34→21:57)
[2020-05-10] MEDS: DESMOPRESSIN 0.1 MG TABLET GT SCH (09:34)
[2020-05-10] MEDS: FUROSEMIDE 20 MG/2 ML GT SCH (09:34)
[2020-05-10] MEDS: POTASSIUM CHLORIDE 40 MEQ/30 ML LIQUID UDC GT SCH (09:34)
[2020-05-10] MEDS: levETIRAcetam 500 MG/5 ML LIQUID UDC GT SCH ×2 (09:34→21:57)
[2020-05-10] MEDS: COD LIVER OIL/ZINC OXIDE OINT 113 GM TUBE TOP SCH ×2 (09:34→21:57)
[2020-05-10] MEDS: PHENYTOIN 100 MG/4 ML UDC GT SCH ×2 (09:34→21:57)
--- NOTE | 2020-05-10 11:00 | NUR ---
Resident noted with scratch deneen to the right nasal dorsum with very slight bleeding noted, no swelling and no signs of pain noted from the pt. MD made aware with new order noted and carried out, initial treatment given and pt tolerated tx. well. Pt. kept clean and comfortable, all needs attended.
[2020-05-10 15:47] VITALS: BP 117/62
[2020-05-10 20:05] VITALS: BP 109/69
[2020-05-10] MEDS: THIAMINE HCL 100 MG TABLET GT SCH (21:57)
[2020-05-10] MEDS: CHOLECALCIFEROL 1,000 UNIT TABLET GT SCH (21:57)
[2020-05-10] MEDS: FOLIC ACID 1 MG TABLET GT SCH (21:57)
[2020-05-11] MEDS: ALBUTEROL SULFATE 2.5 MG/3 ML NEBU NEB SCH ×6 (02:30→22:40)
[2020-05-11] MEDS: IPRATROPIUM BROMIDE 0.5 MG/2.5 ML NEBU NEB SCH ×6 (02:30→22:40)
[2020-05-11] MEDS: METOCLOPRAMIDE HCL 5 MG TABLET GT SCH ×3 (05:59→21:26)
[2020-05-11] MEDS: BACLOFEN 10 MG TABLET GT SCH ×3 (05:59→21:26)
[2020-05-11] MEDS: OMEPRAZOLE 20 MG CAPSULE.DR GT SCH (05:59)
[2020-05-11] MEDS: MIDODRINE HCL 10 MG TABLET GT SCH ×3 (05:59→21:26)
[2020-05-11] MEDS: BACLOFEN 20 MG TABLET GT SCH ×3 (05:59→21:26)
[2020-05-11] MEDS: VITAL AF 1.2 1,000 ML LIQUID GT SCH (06:00)
[2020-05-11] MEDS: HYDROGEN PEROXIDE 3% 118 ML BOTTLE TP SCH ×2 (07:20→19:09)
[2020-05-11 07:30] VITALS: BP 102/60
[2020-05-11] MEDS: ACIDOPHILUS/BULGARICUS CHEW TAB GT SCH ×2 (08:08→20:42)
[2020-05-11] MEDS: PHENYTOIN 100 MG/4 ML UDC GT SCH ×2 (08:08→20:42)
[2020-05-11] MEDS: DESMOPRESSIN 0.1 MG TABLET GT SCH (08:08)
[2020-05-11] MEDS: POTASSIUM CHLORIDE 40 MEQ/30 ML LIQUID UDC GT SCH (08:08)
[2020-05-11] MEDS: FUROSEMIDE 20 MG/2 ML GT SCH (08:08)
[2020-05-11] MEDS: levETIRAcetam 500 MG/5 ML LIQUID UDC GT SCH ×2 (08:08→20:42)
[2020-05-11] MEDS: COD LIVER OIL/ZINC OXIDE OINT 113 GM TUBE TOP SCH ×2 (08:09→20:42)
[2020-05-11] MEDS: NEOMY/BACITRA/POLYMYXIN B OINT UD PACKET TP SCH ×4 (08:09→20:43)
--- NOTE | 2020-05-11 11:00 | NUR ---
ZOOM PROVIDED TO MOTHER.
[2020-05-11 20:00] VITALS: BP 98/59
[2020-05-11] MEDS: THIAMINE HCL 100 MG TABLET GT SCH (20:42)
[2020-05-11] MEDS: FOLIC ACID 1 MG TABLET GT SCH (20:42)
[2020-05-11] MEDS: CHOLECALCIFEROL 1,000 UNIT TABLET GT SCH (20:42)
[2020-05-12] MEDS: IPRATROPIUM BROMIDE 0.5 MG/2.5 ML NEBU NEB SCH ×6 (02:40→22:30)
[2020-05-12] MEDS: ALBUTEROL SULFATE 2.5 MG/3 ML NEBU NEB SCH ×6 (02:40→22:30)
[2020-05-12] MEDS: BACLOFEN 20 MG TABLET GT SCH ×3 (05:29→21:19)
[2020-05-12] MEDS: OMEPRAZOLE 20 MG CAPSULE.DR GT SCH (05:29)
[2020-05-12] MEDS: BACLOFEN 10 MG TABLET GT SCH ×3 (05:29→21:19)
[2020-05-12] MEDS: METOCLOPRAMIDE HCL 5 MG TABLET GT SCH ×3 (05:29→21:19)
[2020-05-12] MEDS: MIDODRINE HCL 10 MG TABLET GT SCH ×3 (05:29→21:19)
[2020-05-12] MEDS: VITAL AF 1.2 1,000 ML LIQUID GT SCH (05:30)
[2020-05-12 07:26] VITALS: BP 101/51
[2020-05-12] MEDS: HYDROGEN PEROXIDE 3% 118 ML BOTTLE TP SCH ×2 (07:28→21:30)
[2020-05-12] MEDS: DESMOPRESSIN 0.1 MG TABLET GT SCH (08:58)
[2020-05-12] MEDS: PHENYTOIN 100 MG/4 ML UDC GT SCH ×2 (08:59→20:23)
[2020-05-12] MEDS: ACIDOPHILUS/BULGARICUS CHEW TAB GT SCH ×2 (09:00→20:23)
[2020-05-12] MEDS: levETIRAcetam 500 MG/5 ML LIQUID UDC GT SCH ×2 (09:02→20:23)
[2020-05-12] MEDS: FUROSEMIDE 20 MG/2 ML GT SCH (09:04)
[2020-05-12] MEDS: NEOMY/BACITRA/POLYMYXIN B OINT UD PACKET TP SCH ×4 (09:09→20:23)
[2020-05-12] MEDS: POTASSIUM CHLORIDE 40 MEQ/30 ML LIQUID UDC GT SCH (09:09)
[2020-05-12] MEDS: COD LIVER OIL/ZINC OXIDE OINT 113 GM TUBE TOP SCH ×2 (09:09→20:23)
[2020-05-12 20:00] VITALS: BP 103/59
[2020-05-12] MEDS: CHOLECALCIFEROL 1,000 UNIT TABLET GT SCH (20:23)
[2020-05-12] MEDS: THIAMINE HCL 100 MG TABLET GT SCH (20:23)
[2020-05-12] MEDS: FOLIC ACID 1 MG TABLET GT SCH (20:23)
[2020-05-13] MEDS: IPRATROPIUM BROMIDE 0.5 MG/2.5 ML NEBU NEB SCH ×6 (02:30→22:30)
[2020-05-13] MEDS: ALBUTEROL SULFATE 2.5 MG/3 ML NEBU NEB SCH ×6 (02:30→22:30)
[2020-05-13] MEDS: BACLOFEN 20 MG TABLET GT SCH ×3 (05:18→21:10)
[2020-05-13] MEDS: OMEPRAZOLE 20 MG CAPSULE.DR GT SCH (05:18)
[2020-05-13] MEDS: METOCLOPRAMIDE HCL 5 MG TABLET GT SCH ×3 (05:18→21:11)
[2020-05-13] MEDS: BACLOFEN 10 MG TABLET GT SCH ×3 (05:18→21:10)
[2020-05-13] MEDS: MIDODRINE HCL 10 MG TABLET GT SCH ×3 (05:18→21:11)
[2020-05-13] MEDS: VITAL AF 1.2 1,000 ML LIQUID GT SCH (05:21)
[2020-05-13] MEDS: HYDROGEN PEROXIDE 3% 118 ML BOTTLE TP SCH ×2 (07:23→21:22)
[2020-05-13 07:24] VITALS: BP 103/59
[2020-05-13] MEDS: DESMOPRESSIN 0.1 MG TABLET GT SCH (08:52)
[2020-05-13] MEDS: PHENYTOIN 100 MG/4 ML UDC GT SCH ×2 (08:52→20:11)
[2020-05-13] MEDS: ACIDOPHILUS/BULGARICUS CHEW TAB GT SCH ×2 (08:53→20:11)
[2020-05-13] MEDS: levETIRAcetam 500 MG/5 ML LIQUID UDC GT SCH ×2 (08:53→20:11)
[2020-05-13] MEDS: POTASSIUM CHLORIDE 40 MEQ/30 ML LIQUID UDC GT SCH (08:57)
[2020-05-13] MEDS: FUROSEMIDE 20 MG/2 ML GT SCH (08:57)
[2020-05-13] MEDS: COD LIVER OIL/ZINC OXIDE OINT 113 GM TUBE TOP SCH ×2 (08:58→20:11)
[2020-05-13] MEDS: NEOMY/BACITRA/POLYMYXIN B OINT UD PACKET TP SCH ×4 (08:58→20:11)
--- NOTE | 2020-05-13 16:11 | NUR ---
NEW ORDER WAS CARRIED OUT FROM DR MUKHERJEE FOR COVID [address] [facility] REQUIREMENT AND MESSAGE LEFT TO ELVA.
[2020-05-13] MEDS: CHOLECALCIFEROL 1,000 UNIT TABLET GT SCH (20:11)
[2020-05-13] MEDS: FOLIC ACID 1 MG TABLET GT SCH (20:11)
[2020-05-13] MEDS: THIAMINE HCL 100 MG TABLET GT SCH (20:11)
[2020-05-13 20:13] VITALS: BP 107/52
[2020-05-14] MEDS: VITAL AF 1.2 1,000 ML LIQUID GT SCH (01:34)
[2020-05-14] MEDS: IPRATROPIUM BROMIDE 0.5 MG/2.5 ML NEBU NEB SCH ×6 (02:30→22:30)
[2020-05-14] MEDS: ALBUTEROL SULFATE 2.5 MG/3 ML NEBU NEB SCH ×6 (02:30→22:30)
[2020-05-14] MEDS: METOCLOPRAMIDE HCL 5 MG TABLET GT SCH ×3 (05:08→22:05)
[2020-05-14] MEDS: BACLOFEN 20 MG TABLET GT SCH ×3 (05:08→22:04)
[2020-05-14] MEDS: OMEPRAZOLE 20 MG CAPSULE.DR GT SCH (05:08)
[2020-05-14] MEDS: BACLOFEN 10 MG TABLET GT SCH ×3 (05:08→22:04)
[2020-05-14] MEDS: MIDODRINE HCL 10 MG TABLET GT SCH ×3 (05:08→22:00)
[2020-05-14] MEDS: HYDROGEN PEROXIDE 3% 118 ML BOTTLE TP SCH ×2 (07:50→21:05)
[2020-05-14 07:52] VITALS: BP 131/81
[2020-05-14] MEDS: DESMOPRESSIN 0.1 MG TABLET GT SCH (08:14)
[2020-05-14] MEDS: PHENYTOIN 100 MG/4 ML UDC GT SCH ×2 (08:14→20:25)
[2020-05-14] MEDS: levETIRAcetam 500 MG/5 ML LIQUID UDC GT SCH ×2 (08:15→20:25)
[2020-05-14] MEDS: ACIDOPHILUS/BULGARICUS CHEW TAB GT SCH ×2 (08:15→20:25)
[2020-05-14] MEDS: FUROSEMIDE 20 MG/2 ML GT SCH (08:15)
[2020-05-14] MEDS: POTASSIUM CHLORIDE 40 MEQ/30 ML LIQUID UDC GT SCH (08:17)
[2020-05-14] MEDS: COD LIVER OIL/ZINC OXIDE OINT 113 GM TUBE TOP SCH ×2 (08:18→20:26)
[2020-05-14] MEDS: NEOMY/BACITRA/POLYMYXIN B OINT UD PACKET TP SCH ×4 (08:18→20:26)
--- NOTE | 2020-05-14 15:34 | NUR ---
PT'S RESP. LIBERTARIAN VICTOR MANUELS WAS NOTIFIED THAT PT. IS NEGATIVE FOR [id number] FROM YESTERDAY.
--- NOTE | 2020-05-14 15:40 | NUR ---
CORRECTED ENTRY :PT'S RELATIVE NOTIFIED THAT PT. IS NEGATIVE FOR COVID19.
[2020-05-14 20:13] VITALS: BP 124/55
[2020-05-14] MEDS: THIAMINE HCL 100 MG TABLET GT SCH (20:25)
[2020-05-14] MEDS: FOLIC ACID 1 MG TABLET GT SCH (20:25)
[2020-05-14] MEDS: CHOLECALCIFEROL 1,000 UNIT TABLET GT SCH (20:26)
[2020-05-15] MEDS: ALBUTEROL SULFATE 2.5 MG/3 ML NEBU NEB SCH ×6 (02:30→22:40)
[2020-05-15] MEDS: IPRATROPIUM BROMIDE 0.5 MG/2.5 ML NEBU NEB SCH ×6 (02:30→22:40)
[2020-05-15] MEDS: BACLOFEN 20 MG TABLET GT SCH ×3 (05:17→22:13)
[2020-05-15] MEDS: BACLOFEN 10 MG TABLET GT SCH ×3 (05:17→22:13)
[2020-05-15] MEDS: MIDODRINE HCL 10 MG TABLET GT SCH ×3 (05:17→22:14)
[2020-05-15] MEDS: VITAL AF 1.2 1,000 ML LIQUID GT SCH (05:18)
[2020-05-15] MEDS: OMEPRAZOLE 20 MG CAPSULE.DR GT SCH (05:18)
[2020-05-15] MEDS: METOCLOPRAMIDE HCL 5 MG TABLET GT SCH ×3 (05:18→22:14)
[2020-05-15 05:50] LABS: BASOPHILS # (AUTO) 0.1 K/uL (0.0-8.0); EOSINOPHILS # (AUTO) 0.5 K/uL (0.0-0.7); EOSINOPHILS % (AUTO) 8.6 % (0.0-7.0); HEMATOCRIT 26.7 % (31.2-41.9); HEMOGLOBIN 9.3 g/dL (10.9-14.3); LYMPHOCYTES # (AUTO) 2.2 K/uL (20.0-40.0); LYMPHOCYTES % (AUTO) 36.6 % (20.5-51.5); MEAN CORPUSCULAR HEMOGLOBIN 32.1 uug (24.7-32.8); MEAN CORPUSCULAR HGB CONC 35 g/dL (32.3-35.6); MONOCYTES # (AUTO) 0.4 K/uL (2.0-10.0); MONOCYTES % (AUTO) 6.8 % (0.0-11.0); NEUTROPHILS # (AUTO) 2.8 K/uL (1.8-8.9); PLATELET COUNT (AUTO) 251 K/uL (179-408); RED BLOOD CELL COUNT(AUTO) 2.91 MIL/uL (3.63-4.92); WHITE BLOOD COUNT (AUTO) 5.9 K/uL (3.8-11.8)
[2020-05-15 06:03] LABS: CREATININE 0.7 mg/dL (0.6-1.3); MAGNESIUM 1.7 mg/dL (1.8-2.4); PHOSPHOROUS 3.8 mg/dL (2.5-4.9); POTASSIUM 3.8 mmol/L (3.5-5.1)
[2020-05-15 07:35] VITALS: BP 92/55
[2020-05-15] MEDS: HYDROGEN PEROXIDE 3% 118 ML BOTTLE TP SCH ×2 (08:25→19:06)
[2020-05-15] MEDS: PHENYTOIN 100 MG/4 ML UDC GT SCH ×2 (09:16→20:31)
[2020-05-15] MEDS: DESMOPRESSIN 0.1 MG TABLET GT SCH (09:16)
[2020-05-15] MEDS: ACIDOPHILUS/BULGARICUS CHEW TAB GT SCH ×2 (09:16→20:35)
[2020-05-15] MEDS: levETIRAcetam 500 MG/5 ML LIQUID UDC GT SCH ×2 (09:16→20:37)
[2020-05-15] MEDS: POTASSIUM CHLORIDE 40 MEQ/30 ML LIQUID UDC GT SCH (09:17)
[2020-05-15] MEDS: COD LIVER OIL/ZINC OXIDE OINT 113 GM TUBE TOP SCH ×2 (09:17→20:38)
[2020-05-15] MEDS: FUROSEMIDE 20 MG/2 ML GT SCH (09:17)
[2020-05-15] MEDS: NEOMY/BACITRA/POLYMYXIN B OINT UD PACKET TP SCH ×4 (09:18→20:39)
[2020-05-15 19:47] VITALS: BP 105/57
[2020-05-15] MEDS: FOLIC ACID 1 MG TABLET GT SCH (20:36)
[2020-05-15] MEDS: THIAMINE HCL 100 MG TABLET GT SCH (20:37)
[2020-05-15] MEDS: CHOLECALCIFEROL 1,000 UNIT TABLET GT SCH (20:38)
[2020-05-16] MEDS: IPRATROPIUM BROMIDE 0.5 MG/2.5 ML NEBU NEB SCH ×6 (02:40→23:00)
[2020-05-16] MEDS: ALBUTEROL SULFATE 2.5 MG/3 ML NEBU NEB SCH ×6 (02:40→23:00)
[2020-05-16] MEDS: MIDODRINE HCL 10 MG TABLET GT SCH ×3 (05:38→22:00)
[2020-05-16] MEDS: OMEPRAZOLE 20 MG CAPSULE.DR GT SCH (05:38)
[2020-05-16] MEDS: METOCLOPRAMIDE HCL 5 MG TABLET GT SCH ×3 (05:38→22:00)
[2020-05-16] MEDS: BACLOFEN 20 MG TABLET GT SCH ×3 (05:38→22:00)
[2020-05-16] MEDS: BACLOFEN 10 MG TABLET GT SCH ×3 (05:38→22:00)
[2020-05-16] MEDS: VITAL AF 1.2 1,000 ML LIQUID GT SCH (05:39)
[2020-05-16 07:31] VITALS: BP 98/54
[2020-05-16] MEDS: DESMOPRESSIN 0.1 MG TABLET GT SCH (09:06)
[2020-05-16] MEDS: PHENYTOIN 100 MG/4 ML UDC GT SCH ×2 (09:06→20:23)
[2020-05-16] MEDS: levETIRAcetam 500 MG/5 ML LIQUID UDC GT SCH ×2 (09:07→20:23)
[2020-05-16] MEDS: ACIDOPHILUS/BULGARICUS CHEW TAB GT SCH ×2 (09:07→20:23)
[2020-05-16] MEDS: FUROSEMIDE 20 MG/2 ML GT SCH (09:08)
[2020-05-16] MEDS: POTASSIUM CHLORIDE 40 MEQ/30 ML LIQUID UDC GT SCH (09:09)
[2020-05-16] MEDS: COD LIVER OIL/ZINC OXIDE OINT 113 GM TUBE TOP SCH ×2 (09:11→20:23)
[2020-05-16] MEDS: HYDROGEN PEROXIDE 3% 118 ML BOTTLE TP SCH ×2 (09:20→21:31)
[2020-05-16] MEDS: NEOMY/BACITRA/POLYMYXIN B OINT UD PACKET TP SCH ×4 (09:30→20:24)
[2020-05-16 19:54] VITALS: BP 122/62
[2020-05-16] MEDS: CHOLECALCIFEROL 1,000 UNIT TABLET GT SCH (20:23)
[2020-05-16] MEDS: THIAMINE HCL 100 MG TABLET GT SCH (20:23)
[2020-05-16] MEDS: FOLIC ACID 1 MG TABLET GT SCH (20:23)
[2020-05-17] MEDS: IPRATROPIUM BROMIDE 0.5 MG/2.5 ML NEBU NEB SCH ×6 (03:05→23:20)
[2020-05-17] MEDS: ALBUTEROL SULFATE 2.5 MG/3 ML NEBU NEB SCH ×6 (03:06→23:20)
[2020-05-17] MEDS: BACLOFEN 20 MG TABLET GT SCH ×3 (05:17→22:22)
[2020-05-17] MEDS: BACLOFEN 10 MG TABLET GT SCH ×3 (05:17→22:22)
[2020-05-17] MEDS: OMEPRAZOLE 20 MG CAPSULE.DR GT SCH (05:18)
[2020-05-17] MEDS: MIDODRINE HCL 10 MG TABLET GT SCH ×3 (05:18→22:23)
[2020-05-17] MEDS: METOCLOPRAMIDE HCL 5 MG TABLET GT SCH ×3 (05:18→22:23)
[2020-05-17] MEDS: VITAL AF 1.2 1,000 ML LIQUID GT SCH (05:18)
[2020-05-17 06:08] LABS: BASOPHILS # (AUTO) 0.1 K/uL (0.0-8.0); BASOPHILS % (AUTO) 1.4 % (0.0-2.0); EOSINOPHILS # (AUTO) 0.6 K/uL (0.0-0.7); EOSINOPHILS % (AUTO) 9.8 % (0.0-7.0); HEMATOCRIT 30.5 % (31.2-41.9); HEMOGLOBIN 10.6 g/dL (10.9-14.3); LYMPHOCYTES # (AUTO) 2.3 K/uL (20.0-40.0); LYMPHOCYTES % (AUTO) 36.2 % (20.5-51.5); MEAN CORPUSCULAR HEMOGLOBIN 31.5 uug (24.7-32.8); MEAN CORPUSCULAR HGB CONC 35 g/dL (32.3-35.6); MEAN CORPUSCULAR VOLUME 90.5 fL (75.5-95.3); MONOCYTES # (AUTO) 0.5 K/uL (2.0-10.0); MONOCYTES % (AUTO) 8.7 % (0.0-11.0); NEUTROPHILS # (AUTO) 2.8 K/uL (1.8-8.9); NEUTROPHILS % (AUTO) 43.9 % (38.5-71.5); PLATELET COUNT (AUTO) 269 K/uL (179-408); RED BLOOD CELL COUNT(AUTO) 3.37 MIL/uL (3.63-4.92); WHITE BLOOD COUNT (AUTO) 6.3 K/uL (3.8-11.8)
[2020-05-17 06:18] LABS: CREATININE 0.6 mg/dL (0.6-1.3); MAGNESIUM 1.9 mg/dL (1.8-2.4); PHOSPHOROUS 4.1 mg/dL (2.5-4.9); POTASSIUM 3.6 mmol/L (3.5-5.1)
[2020-05-17 07:28] VITALS: BP 107/66
[2020-05-17] MEDS: HYDROGEN PEROXIDE 3% 118 ML BOTTLE TP SCH ×2 (07:35→21:24)
[2020-05-17] MEDS: PHENYTOIN 100 MG/4 ML UDC GT SCH ×2 (08:01→20:29)
[2020-05-17] MEDS: levETIRAcetam 500 MG/5 ML LIQUID UDC GT SCH ×2 (08:01→20:29)
[2020-05-17] MEDS: DESMOPRESSIN 0.1 MG TABLET GT SCH (08:01)
[2020-05-17] MEDS: ACIDOPHILUS/BULGARICUS CHEW TAB GT SCH ×2 (08:01→20:29)
[2020-05-17] MEDS: FUROSEMIDE 20 MG/2 ML GT SCH (08:01)
[2020-05-17] MEDS: NEOMY/BACITRA/POLYMYXIN B OINT UD PACKET TP SCH ×4 (08:02→20:31)
[2020-05-17] MEDS: COD LIVER OIL/ZINC OXIDE OINT 113 GM TUBE TOP SCH ×2 (08:02→20:31)
[2020-05-17] MEDS: POTASSIUM CHLORIDE 40 MEQ/30 ML LIQUID UDC GT SCH (08:02)
[2020-05-17] MEDS: FOLIC ACID 1 MG TABLET GT SCH (20:29)
[2020-05-17] MEDS: THIAMINE HCL 100 MG TABLET GT SCH (20:29)
[2020-05-17] MEDS: CHOLECALCIFEROL 1,000 UNIT TABLET GT SCH (20:31)
[2020-05-17 20:33] VITALS: BP 103/62
[2020-05-18] MEDS: ALBUTEROL SULFATE 2.5 MG/3 ML NEBU NEB SCH ×6 (03:10→22:40)
[2020-05-18] MEDS: IPRATROPIUM BROMIDE 0.5 MG/2.5 ML NEBU NEB SCH ×6 (03:10→22:40)
[2020-05-18] MEDS: VITAL AF 1.2 1,000 ML LIQUID GT SCH (05:00)
[2020-05-18] MEDS: BACLOFEN 20 MG TABLET GT SCH ×3 (05:42→22:23)
[2020-05-18] MEDS: MIDODRINE HCL 10 MG TABLET GT SCH ×3 (05:42→22:22)
[2020-05-18] MEDS: BACLOFEN 10 MG TABLET GT SCH ×3 (05:42→22:24)
[2020-05-18] MEDS: METOCLOPRAMIDE HCL 5 MG TABLET GT SCH ×3 (05:43→22:25)
[2020-05-18] MEDS: OMEPRAZOLE 20 MG CAPSULE.DR GT SCH (05:43)
[2020-05-18 07:33] VITALS: BP 107/64
[2020-05-18] MEDS: PHENYTOIN 100 MG/4 ML UDC GT SCH ×2 (08:08→22:37)
[2020-05-18] MEDS: DESMOPRESSIN 0.1 MG TABLET GT SCH (08:08)
[2020-05-18] MEDS: ACIDOPHILUS/BULGARICUS CHEW TAB GT SCH ×2 (08:10→22:20)
[2020-05-18] MEDS: levETIRAcetam 500 MG/5 ML LIQUID UDC GT SCH ×2 (08:10→22:20)
[2020-05-18] MEDS: POTASSIUM CHLORIDE 40 MEQ/30 ML LIQUID UDC GT SCH (08:11)
[2020-05-18] MEDS: FUROSEMIDE 20 MG/2 ML GT SCH (08:11)
[2020-05-18] MEDS: NEOMY/BACITRA/POLYMYXIN B OINT UD PACKET TP SCH ×4 (08:12→22:26)
[2020-05-18] MEDS: COD LIVER OIL/ZINC OXIDE OINT 113 GM TUBE TOP SCH ×2 (08:12→22:26)
[2020-05-18] MEDS: HYDROGEN PEROXIDE 3% 118 ML BOTTLE TP SCH ×2 (08:36→19:09)
[2020-05-18 20:00] VITALS: BP 108/67
[2020-05-18] MEDS: FOLIC ACID 1 MG TABLET GT SCH (22:21)
[2020-05-18] MEDS: CHOLECALCIFEROL 1,000 UNIT TABLET GT SCH (22:30)
[2020-05-18] MEDS: THIAMINE HCL 100 MG TABLET GT SCH (22:30)
[2020-05-19] MEDS: IPRATROPIUM BROMIDE 0.5 MG/2.5 ML NEBU NEB SCH ×6 (02:46→22:30)
[2020-05-19] MEDS: ALBUTEROL SULFATE 2.5 MG/3 ML NEBU NEB SCH ×6 (02:46→22:30)
[2020-05-19] MEDS: BACLOFEN 20 MG TABLET GT SCH ×3 (06:42→21:44)
[2020-05-19] MEDS: BACLOFEN 10 MG TABLET GT SCH ×3 (06:42→21:44)
[2020-05-19] MEDS: OMEPRAZOLE 20 MG CAPSULE.DR GT SCH (06:42)
[2020-05-19] MEDS: METOCLOPRAMIDE HCL 5 MG TABLET GT SCH ×3 (06:42→21:44)
[2020-05-19] MEDS: MIDODRINE HCL 10 MG TABLET GT SCH ×3 (06:47→21:44)
[2020-05-19 07:29] VITALS: BP 108/65
[2020-05-19] MEDS: PHENYTOIN 100 MG/4 ML UDC GT SCH ×2 (08:46→20:18)
[2020-05-19] MEDS: DESMOPRESSIN 0.1 MG TABLET GT SCH (08:46)
[2020-05-19] MEDS: ACIDOPHILUS/BULGARICUS CHEW TAB GT SCH ×2 (08:46→20:18)
[2020-05-19] MEDS: levETIRAcetam 500 MG/5 ML LIQUID UDC GT SCH ×2 (08:46→20:21)
[2020-05-19] MEDS: POTASSIUM CHLORIDE 40 MEQ/30 ML LIQUID UDC GT SCH (08:47)
[2020-05-19] MEDS: FUROSEMIDE 20 MG/2 ML GT SCH (08:47)
[2020-05-19] MEDS: NEOMY/BACITRA/POLYMYXIN B OINT UD PACKET TP SCH ×4 (08:48→21:35)
[2020-05-19] MEDS: COD LIVER OIL/ZINC OXIDE OINT 113 GM TUBE TOP SCH ×2 (08:48→20:21)
[2020-05-19] MEDS: HYDROGEN PEROXIDE 3% 118 ML BOTTLE TP SCH ×2 (09:00→21:24)
[2020-05-19] MEDS: THIAMINE HCL 100 MG TABLET GT SCH (20:21)
[2020-05-19] MEDS: FOLIC ACID 1 MG TABLET GT SCH (20:21)
[2020-05-19] MEDS: CHOLECALCIFEROL 1,000 UNIT TABLET GT SCH (20:21)
[2020-05-19 22:35] VITALS: BP 125/59
[2020-05-20] MEDS: IPRATROPIUM BROMIDE 0.5 MG/2.5 ML NEBU NEB SCH ×6 (02:30→22:30)
[2020-05-20] MEDS: ALBUTEROL SULFATE 2.5 MG/3 ML NEBU NEB SCH ×6 (02:30→22:30)
[2020-05-20] MEDS: BACLOFEN 10 MG TABLET GT SCH ×3 (05:56→22:04)
[2020-05-20] MEDS: OMEPRAZOLE 20 MG CAPSULE.DR GT SCH (05:57)
[2020-05-20] MEDS: METOCLOPRAMIDE HCL 5 MG TABLET GT SCH ×3 (05:57→22:05)
[2020-05-20] MEDS: BACLOFEN 20 MG TABLET GT SCH ×3 (05:57→22:04)
[2020-05-20] MEDS: MIDODRINE HCL 10 MG TABLET GT SCH ×3 (05:57→22:00)
[2020-05-20 07:56] VITALS: BP 98/62
[2020-05-20] MEDS: DESMOPRESSIN 0.1 MG TABLET GT SCH (08:42)
[2020-05-20] MEDS: PHENYTOIN 100 MG/4 ML UDC GT SCH ×2 (08:42→20:51)
[2020-05-20] MEDS: ACIDOPHILUS/BULGARICUS CHEW TAB GT SCH ×2 (08:43→20:45)
[2020-05-20] MEDS: levETIRAcetam 500 MG/5 ML LIQUID UDC GT SCH ×2 (08:43→20:46)
[2020-05-20] MEDS: NEOMY/BACITRA/POLYMYXIN B OINT UD PACKET TP SCH ×3 (08:44→20:51)
[2020-05-20] MEDS: FUROSEMIDE 20 MG/2 ML GT SCH (08:44)
[2020-05-20] MEDS: POTASSIUM CHLORIDE 40 MEQ/30 ML LIQUID UDC GT SCH (08:44)
[2020-05-20] MEDS: COD LIVER OIL/ZINC OXIDE OINT 113 GM TUBE TOP SCH ×2 (08:44→20:51)
[2020-05-20] MEDS: HYDROGEN PEROXIDE 3% 118 ML BOTTLE TP SCH ×2 (09:22→21:05)
[2020-05-20] MEDS: VITAL AF 1.2 1,000 ML LIQUID GT SCH (13:30)
[2020-05-20] MEDS: FOLIC ACID 1 MG TABLET GT SCH (20:45)
[2020-05-20] MEDS: CHOLECALCIFEROL 1,000 UNIT TABLET GT SCH (20:49)
[2020-05-20] MEDS: THIAMINE HCL 100 MG TABLET GT SCH (20:49)
[2020-05-20 22:31] VITALS: BP 121/75
[2020-05-21] MEDS: ALBUTEROL SULFATE 2.5 MG/3 ML NEBU NEB SCH ×6 (02:30→22:30)
[2020-05-21] MEDS: IPRATROPIUM BROMIDE 0.5 MG/2.5 ML NEBU NEB SCH ×6 (02:30→22:30)
[2020-05-21] MEDS: MIDODRINE HCL 10 MG TABLET GT SCH ×3 (05:04→22:00)
[2020-05-21] MEDS: METOCLOPRAMIDE HCL 5 MG TABLET GT SCH ×3 (05:05→22:20)
[2020-05-21] MEDS: BACLOFEN 10 MG TABLET GT SCH ×3 (05:05→22:19)
[2020-05-21] MEDS: OMEPRAZOLE 20 MG CAPSULE.DR GT SCH (05:05)
[2020-05-21] MEDS: BACLOFEN 20 MG TABLET GT SCH ×3 (05:05→22:19)
[2020-05-21 07:31] VITALS: BP 103/64
[2020-05-21] MEDS: HYDROGEN PEROXIDE 3% 118 ML BOTTLE TP SCH ×2 (08:27→21:20)
[2020-05-21] MEDS: DESMOPRESSIN 0.1 MG TABLET GT SCH (08:42)
[2020-05-21] MEDS: PHENYTOIN 100 MG/4 ML UDC GT SCH ×2 (08:42→20:33)
[2020-05-21] MEDS: levETIRAcetam 500 MG/5 ML LIQUID UDC GT SCH ×2 (08:43→20:35)
[2020-05-21] MEDS: FUROSEMIDE 20 MG/2 ML GT SCH (08:43)
[2020-05-21] MEDS: ACIDOPHILUS/BULGARICUS CHEW TAB GT SCH ×2 (08:43→20:33)
[2020-05-21] MEDS: POTASSIUM CHLORIDE 40 MEQ/30 ML LIQUID UDC GT SCH (08:43)
[2020-05-21] MEDS: COD LIVER OIL/ZINC OXIDE OINT 113 GM TUBE TOP SCH ×2 (08:44→20:35)
[2020-05-21] MEDS: NEOMY/BACITRA/POLYMYXIN B OINT UD PACKET TP SCH ×2 (08:44→20:36)
--- NOTE | 2020-05-21 13:17 | NUR ---
PT. WAS SEEN AND EXAMINED BY EMMY Agustin AND WITH NEW ORDERS CARRIED OUT.
[2020-05-21] MEDS: VITAL AF 1.2 1,000 ML LIQUID GT SCH (14:40)
[2020-05-21 20:11] VITALS: BP 116/66
[2020-05-21] MEDS: FOLIC ACID 1 MG TABLET GT SCH (20:33)
[2020-05-21] MEDS: CHOLECALCIFEROL 1,000 UNIT TABLET GT SCH (20:35)
[2020-05-21] MEDS: NYSTATIN OINTMENT 15 GM TUBE TP SCH ×2 (20:35→20:36)
[2020-05-21] MEDS: THIAMINE HCL 100 MG TABLET GT SCH (20:35)
[2020-05-22] MEDS: ALBUTEROL SULFATE 2.5 MG/3 ML NEBU NEB SCH ×6 (02:30→23:12)
[2020-05-22] MEDS: IPRATROPIUM BROMIDE 0.5 MG/2.5 ML NEBU NEB SCH ×6 (02:30→23:12)
[2020-05-22] MEDS: BACLOFEN 10 MG TABLET GT SCH ×3 (05:03→22:53)
[2020-05-22] MEDS: BACLOFEN 20 MG TABLET GT SCH ×3 (05:03→22:53)
[2020-05-22] MEDS: OMEPRAZOLE 20 MG CAPSULE.DR GT SCH (05:04)
[2020-05-22] MEDS: METOCLOPRAMIDE HCL 5 MG TABLET GT SCH ×3 (05:04→22:53)
[2020-05-22] MEDS: MIDODRINE HCL 10 MG TABLET GT SCH ×3 (05:04→22:00)
[2020-05-22 07:31] VITALS: BP 91/54
[2020-05-22] MEDS: HYDROGEN PEROXIDE 3% 118 ML BOTTLE TP SCH ×2 (08:03→21:15)
[2020-05-22] MEDS: levETIRAcetam 500 MG/5 ML LIQUID UDC GT SCH ×2 (08:37→21:00)
[2020-05-22] MEDS: DESMOPRESSIN 0.1 MG TABLET GT SCH (08:37)
[2020-05-22] MEDS: PHENYTOIN 100 MG/4 ML UDC GT SCH ×2 (08:37→21:00)
[2020-05-22] MEDS: FUROSEMIDE 20 MG/2 ML GT SCH (08:37)
[2020-05-22] MEDS: ACIDOPHILUS/BULGARICUS CHEW TAB GT SCH ×2 (08:37→21:00)
[2020-05-22] MEDS: COD LIVER OIL/ZINC OXIDE OINT 113 GM TUBE TOP SCH ×2 (08:37→21:00)
[2020-05-22] MEDS: POTASSIUM CHLORIDE 40 MEQ/30 ML LIQUID UDC GT SCH (08:37)
[2020-05-22] MEDS: NEOMY/BACITRA/POLYMYXIN B OINT UD PACKET TP SCH ×2 (08:38→21:00)
[2020-05-22] MEDS: NYSTATIN OINTMENT 15 GM TUBE TP SCH ×4 (08:38→21:00)
[2020-05-22] MEDS: VITAL AF 1.2 1,000 ML LIQUID GT SCH (14:13)
[2020-05-22 20:06] VITALS: BP 96/57
[2020-05-22] MEDS: CHOLECALCIFEROL 1,000 UNIT TABLET GT SCH (21:00)
[2020-05-22] MEDS: FOLIC ACID 1 MG TABLET GT SCH (21:00)
[2020-05-22] MEDS: THIAMINE HCL 100 MG TABLET GT SCH (21:00)
[2020-05-23] MEDS: ALBUTEROL SULFATE 2.5 MG/3 ML NEBU NEB SCH ×6 (03:36→22:35)
[2020-05-23] MEDS: IPRATROPIUM BROMIDE 0.5 MG/2.5 ML NEBU NEB SCH ×6 (03:36→22:35)
[2020-05-23] MEDS: BACLOFEN 20 MG TABLET GT SCH ×3 (05:57→21:07)
[2020-05-23] MEDS: BACLOFEN 10 MG TABLET GT SCH ×3 (05:57→21:07)
[2020-05-23] MEDS: OMEPRAZOLE 20 MG CAPSULE.DR GT SCH (05:57)
[2020-05-23] MEDS: MIDODRINE HCL 10 MG TABLET GT SCH ×3 (05:57→21:08)
[2020-05-23] MEDS: METOCLOPRAMIDE HCL 5 MG TABLET GT SCH ×3 (05:57→21:08)
[2020-05-23 07:32] VITALS: BP 90/48
[2020-05-23] MEDS: HYDROGEN PEROXIDE 3% 118 ML BOTTLE TP SCH ×2 (07:35→19:02)
[2020-05-23] MEDS: PHENYTOIN 100 MG/4 ML UDC GT SCH ×2 (08:34→21:04)
[2020-05-23] MEDS: DESMOPRESSIN 0.1 MG TABLET GT SCH (08:34)
[2020-05-23] MEDS: ACIDOPHILUS/BULGARICUS CHEW TAB GT SCH ×2 (08:35→21:04)
[2020-05-23] MEDS: FUROSEMIDE 20 MG/2 ML GT SCH (08:39)
[2020-05-23] MEDS: levETIRAcetam 500 MG/5 ML LIQUID UDC GT SCH ×2 (08:39→21:07)
[2020-05-23] MEDS: NYSTATIN OINTMENT 15 GM TUBE TP SCH ×4 (08:40→21:07)
[2020-05-23] MEDS: POTASSIUM CHLORIDE 40 MEQ/30 ML LIQUID UDC GT SCH (08:40)
[2020-05-23] MEDS: COD LIVER OIL/ZINC OXIDE OINT 113 GM TUBE TOP SCH ×2 (08:40→21:07)
[2020-05-23] MEDS: NEOMY/BACITRA/POLYMYXIN B OINT UD PACKET TP SCH ×2 (08:41→21:07)
--- NOTE | 2020-05-23 09:00 | NUR ---
Zelda pt responsible libertarian notified COVID-19 test result was negative
[2020-05-23] MEDS: VITAL AF 1.2 1,000 ML LIQUID GT SCH (14:02)
[2020-05-23 19:52] VITALS: BP 93/57
[2020-05-23] MEDS: FOLIC ACID 1 MG TABLET GT SCH (21:04)
[2020-05-23] MEDS: CHOLECALCIFEROL 1,000 UNIT TABLET GT SCH (21:07)
[2020-05-23] MEDS: THIAMINE HCL 100 MG TABLET GT SCH (21:07)
[2020-05-24] MEDS: ALBUTEROL SULFATE 2.5 MG/3 ML NEBU NEB SCH ×6 (02:40→22:40)
[2020-05-24] MEDS: IPRATROPIUM BROMIDE 0.5 MG/2.5 ML NEBU NEB SCH ×6 (02:40→22:40)
[2020-05-24 05:45] VITALS: BP 113/66
[2020-05-24] MEDS: METOCLOPRAMIDE HCL 5 MG TABLET GT SCH ×3 (06:21→22:19)
[2020-05-24] MEDS: BACLOFEN 10 MG TABLET GT SCH ×3 (06:21→22:18)
[2020-05-24] MEDS: MIDODRINE HCL 10 MG TABLET GT SCH ×3 (06:21→22:19)
[2020-05-24] MEDS: BACLOFEN 20 MG TABLET GT SCH ×3 (06:21→22:18)
[2020-05-24] MEDS: OMEPRAZOLE 20 MG CAPSULE.DR GT SCH (06:21)
[2020-05-24] MEDS: HYDROGEN PEROXIDE 3% 118 ML BOTTLE TP SCH ×2 (07:11→19:06)
[2020-05-24 07:54] VITALS: BP 97/57
[2020-05-24] MEDS: NEOMY/BACITRA/POLYMYXIN B OINT UD PACKET TP SCH ×2 (09:15→20:45)
[2020-05-24] MEDS: PHENYTOIN 100 MG/4 ML UDC GT SCH ×2 (09:15→20:44)
[2020-05-24] MEDS: FUROSEMIDE 20 MG/2 ML GT SCH (09:15)
[2020-05-24] MEDS: levETIRAcetam 500 MG/5 ML LIQUID UDC GT SCH ×2 (09:15→20:45)
[2020-05-24] MEDS: DESMOPRESSIN 0.1 MG TABLET GT SCH (09:15)
[2020-05-24] MEDS: ACIDOPHILUS/BULGARICUS CHEW TAB GT SCH ×2 (09:15→20:44)
[2020-05-24] MEDS: POTASSIUM CHLORIDE 40 MEQ/30 ML LIQUID UDC GT SCH (09:15)
[2020-05-24] MEDS: COD LIVER OIL/ZINC OXIDE OINT 113 GM TUBE TOP SCH ×2 (09:15→20:45)
[2020-05-24] MEDS: NYSTATIN OINTMENT 15 GM TUBE TP SCH ×4 (09:15→20:45)
[2020-05-24] MEDS: VITAL AF 1.2 1,000 ML LIQUID GT SCH (11:51)
[2020-05-24 19:50] VITALS: BP 97/51
[2020-05-24] MEDS: FOLIC ACID 1 MG TABLET GT SCH (20:44)
[2020-05-24] MEDS: THIAMINE HCL 100 MG TABLET GT SCH (20:45)
[2020-05-24] MEDS: CHOLECALCIFEROL 1,000 UNIT TABLET GT SCH (20:45)
[2020-05-25] MEDS: ALBUTEROL SULFATE 2.5 MG/3 ML NEBU NEB SCH ×6 (02:35→23:18)
[2020-05-25] MEDS: IPRATROPIUM BROMIDE 0.5 MG/2.5 ML NEBU NEB SCH ×6 (02:35→23:18)
[2020-05-25] MEDS: MIDODRINE HCL 10 MG TABLET GT SCH ×3 (05:36→22:05)
[2020-05-25] MEDS: BACLOFEN 10 MG TABLET GT SCH ×3 (05:36→22:04)
[2020-05-25] MEDS: OMEPRAZOLE 20 MG CAPSULE.DR GT SCH (05:36)
[2020-05-25] MEDS: METOCLOPRAMIDE HCL 5 MG TABLET GT SCH ×3 (05:36→22:05)
[2020-05-25] MEDS: BACLOFEN 20 MG TABLET GT SCH ×3 (05:36→22:04)
[2020-05-25 07:21] VITALS: BP 104/59
[2020-05-25 07:35] VITALS: BP 102/45
[2020-05-25] MEDS: HYDROGEN PEROXIDE 3% 118 ML BOTTLE TP SCH ×2 (09:09→21:15)
[2020-05-25] MEDS: DESMOPRESSIN 0.1 MG TABLET GT SCH (09:44)
[2020-05-25] MEDS: PHENYTOIN 100 MG/4 ML UDC GT SCH ×2 (09:44→20:26)
[2020-05-25] MEDS: levETIRAcetam 500 MG/5 ML LIQUID UDC GT SCH ×2 (09:44→20:27)
[2020-05-25] MEDS: ACIDOPHILUS/BULGARICUS CHEW TAB GT SCH ×2 (09:44→20:26)
[2020-05-25] MEDS: POTASSIUM CHLORIDE 40 MEQ/30 ML LIQUID UDC GT SCH (09:48)
[2020-05-25] MEDS: FUROSEMIDE 20 MG/2 ML GT SCH (09:48)
[2020-05-25] MEDS: NYSTATIN OINTMENT 15 GM TUBE TP SCH ×4 (09:49→20:27)
[2020-05-25] MEDS: NEOMY/BACITRA/POLYMYXIN B OINT UD PACKET TP SCH ×2 (09:49→20:27)
[2020-05-25] MEDS: COD LIVER OIL/ZINC OXIDE OINT 113 GM TUBE TOP SCH ×2 (09:49→20:27)
[2020-05-25] MEDS: VITAL AF 1.2 1,000 ML LIQUID GT SCH (11:30)
[2020-05-25 14:15] LABS: BASOPHILS # (AUTO) 0.1 K/uL (0.0-8.0); BASOPHILS % (AUTO) 1.4 % (0.0-2.0); EOSINOPHILS # (AUTO) 0.6 K/uL (0.0-0.7); EOSINOPHILS % (AUTO) 9.8 % (0.0-7.0); HEMATOCRIT 32.6 % (31.2-41.9); HEMOGLOBIN 11.3 g/dL (10.9-14.3); LYMPHOCYTES # (AUTO) 2.4 K/uL (20.0-40.0); MEAN CORPUSCULAR HEMOGLOBIN 31.4 uug (24.7-32.8); MEAN CORPUSCULAR HGB CONC 35 g/dL (32.3-35.6); MONOCYTES # (AUTO) 0.3 K/uL (2.0-10.0); NEUTROPHILS # (AUTO) 3.2 K/uL (1.8-8.9); NEUTROPHILS % (AUTO) 48.8 % (38.5-71.5); PLATELET COUNT (AUTO) 384 K/uL (179-408); RED BLOOD CELL COUNT(AUTO) 3.59 MIL/uL (3.63-4.92); WHITE BLOOD COUNT (AUTO) 6.6 K/uL (3.8-11.8)
[2020-05-25 14:57] LABS: CARBON DIOXIDE 23 mmol/L (21-32); CHLORIDE 103 mmol/L (98-107); CREATININE 0.5 mg/dL (0.6-1.3); GLUCOSE 89 mg/dL (74-106); MAGNESIUM 1.9 mg/dL (1.8-2.4); PHOSPHOROUS 3.9 mg/dL (2.5-4.9); POTASSIUM 3.4 mmol/L (3.5-5.1); UREA NITROGEN, BLOOD 20 mg/dL (7-18)
[2020-05-25] MEDS: CHOLECALCIFEROL 1,000 UNIT TABLET GT SCH (20:27)
[2020-05-25] MEDS: THIAMINE HCL 100 MG TABLET GT SCH (20:27)
[2020-05-25] MEDS: FOLIC ACID 1 MG TABLET GT SCH (20:27)
[2020-05-25 20:33] VITALS: BP 98/52
[2020-05-26] MEDS: IPRATROPIUM BROMIDE 0.5 MG/2.5 ML NEBU NEB SCH ×6 (03:11→22:30)
[2020-05-26] MEDS: ALBUTEROL SULFATE 2.5 MG/3 ML NEBU NEB SCH ×6 (03:11→22:30)
[2020-05-26] MEDS: BACLOFEN 20 MG TABLET GT SCH ×3 (05:39→21:03)
[2020-05-26] MEDS: MIDODRINE HCL 10 MG TABLET GT SCH ×3 (05:39→21:04)
[2020-05-26] MEDS: BACLOFEN 10 MG TABLET GT SCH ×3 (05:39→21:03)
[2020-05-26] MEDS: OMEPRAZOLE 20 MG CAPSULE.DR GT SCH (05:39)
[2020-05-26] MEDS: METOCLOPRAMIDE HCL 5 MG TABLET GT SCH ×3 (05:39→21:04)
[2020-05-26 07:36] VITALS: BP 107/56
[2020-05-26] MEDS: HYDROGEN PEROXIDE 3% 118 ML BOTTLE TP SCH ×2 (08:58→21:20)
[2020-05-26] MEDS: DESMOPRESSIN 0.1 MG TABLET GT SCH (09:16)
[2020-05-26] MEDS: PHENYTOIN 100 MG/4 ML UDC GT SCH ×2 (09:16→21:03)
[2020-05-26] MEDS: levETIRAcetam 500 MG/5 ML LIQUID UDC GT SCH ×2 (09:17→21:03)
[2020-05-26] MEDS: ACIDOPHILUS/BULGARICUS CHEW TAB GT SCH ×2 (09:17→21:03)
[2020-05-26] MEDS: NEOMY/BACITRA/POLYMYXIN B OINT UD PACKET TP SCH (09:18)
[2020-05-26] MEDS: COD LIVER OIL/ZINC OXIDE OINT 113 GM TUBE TOP SCH ×2 (09:18→21:03)
[2020-05-26] MEDS: NYSTATIN OINTMENT 15 GM TUBE TP SCH ×4 (09:18→21:03)
[2020-05-26] MEDS: FUROSEMIDE 20 MG/2 ML GT SCH (09:18)
[2020-05-26] MEDS: POTASSIUM CHLORIDE 40 MEQ/30 ML LIQUID UDC GT SCH (09:18)
[2020-05-26] MEDS: VITAL AF 1.2 1,000 ML LIQUID GT SCH (09:23)
--- NOTE | 2020-05-26 18:30 | NUR ---
Received pt on HT-50 ventilator with the following settings of SIMV-12, Vt-500, PEEP+5, PS-10, FIO2-2LPM bleed in, trached with Susyley#6 DCT trach, which is in the place and secure. No s/s of respiratory distress noted. Airway care done, pt responded to physical stimuli. In-line HHN tx with 2.5mg Albuterol+0.5mg Atrovent given, no adverse reaction noted. HME and Sx Garza changed. Pt has a gauze between her lips, to prevent biting. Resus. bag and back up trach at bedside. Vent and alarms checked and reset.
[2020-05-26 20:33] VITALS: BP 108/58
[2020-05-26] MEDS: FOLIC ACID 1 MG TABLET GT SCH (21:03)
[2020-05-26] MEDS: THIAMINE HCL 100 MG TABLET GT SCH (21:03)
[2020-05-26] MEDS: CHOLECALCIFEROL 1,000 UNIT TABLET GT SCH (21:03)
[2020-05-27] MEDS: IPRATROPIUM BROMIDE 0.5 MG/2.5 ML NEBU NEB SCH ×6 (02:30→22:30)
[2020-05-27] MEDS: ALBUTEROL SULFATE 2.5 MG/3 ML NEBU NEB SCH ×6 (02:30→22:30)
[2020-05-27] MEDS: OMEPRAZOLE 20 MG CAPSULE.DR GT SCH (05:06)
[2020-05-27] MEDS: BACLOFEN 10 MG TABLET GT SCH ×3 (05:06→21:18)
[2020-05-27] MEDS: MIDODRINE HCL 10 MG TABLET GT SCH ×3 (05:06→21:19)
[2020-05-27] MEDS: METOCLOPRAMIDE HCL 5 MG TABLET GT SCH ×3 (05:06→21:19)
[2020-05-27] MEDS: BACLOFEN 20 MG TABLET GT SCH ×3 (05:06→21:18)
[2020-05-27] MEDS: HYDROGEN PEROXIDE 3% 118 ML BOTTLE TP SCH ×2 (07:15→20:50)
[2020-05-27 07:50] VITALS: BP 94/60
[2020-05-27] MEDS: ACIDOPHILUS/BULGARICUS CHEW TAB GT SCH ×2 (08:29→21:16)
[2020-05-27] MEDS: levETIRAcetam 500 MG/5 ML LIQUID UDC GT SCH ×2 (08:29→21:16)
[2020-05-27] MEDS: DESMOPRESSIN 0.1 MG TABLET GT SCH (08:29)
[2020-05-27] MEDS: PHENYTOIN 100 MG/4 ML UDC GT SCH ×2 (08:29→21:16)
[2020-05-27] MEDS: COD LIVER OIL/ZINC OXIDE OINT 113 GM TUBE TOP SCH ×2 (08:30→21:16)
[2020-05-27] MEDS: POTASSIUM CHLORIDE 40 MEQ/30 ML LIQUID UDC GT SCH (08:30)
[2020-05-27] MEDS: FUROSEMIDE 20 MG/2 ML GT SCH (08:30)
[2020-05-27] MEDS: NYSTATIN OINTMENT 15 GM TUBE TP SCH ×4 (08:31→21:18)
[2020-05-27] MEDS: VITAL AF 1.2 1,000 ML LIQUID GT SCH (08:51)
--- NOTE | 2020-05-27 09:00 | NUR ---
PT LIP STILL OPEN FROM SELF BITING. NOTED WITH NEW ORDER TO CONTINUE TX. MOTHER MADE AWARE.
[2020-05-27 20:38] VITALS: BP 98/76
[2020-05-27] MEDS: FOLIC ACID 1 MG TABLET GT SCH (21:16)
[2020-05-27] MEDS: THIAMINE HCL 100 MG TABLET GT SCH (21:16)
[2020-05-27] MEDS: CHOLECALCIFEROL 1,000 UNIT TABLET GT SCH (21:16)
[2020-05-27] MEDS: NEOMY/BACITRA/POLYMYXIN B OINT UD PACKET TP SCH (21:18)
[2020-05-28] MEDS: ALBUTEROL SULFATE 2.5 MG/3 ML NEBU NEB SCH ×6 (02:30→23:01)
[2020-05-28] MEDS: IPRATROPIUM BROMIDE 0.5 MG/2.5 ML NEBU NEB SCH ×6 (02:30→23:01)
[2020-05-28] MEDS: BACLOFEN 20 MG TABLET GT SCH ×3 (05:05→21:02)
[2020-05-28] MEDS: BACLOFEN 10 MG TABLET GT SCH ×3 (05:05→21:02)
[2020-05-28] MEDS: METOCLOPRAMIDE HCL 5 MG TABLET GT SCH ×3 (05:06→21:03)
[2020-05-28] MEDS: OMEPRAZOLE 20 MG CAPSULE.DR GT SCH (05:06)
[2020-05-28] MEDS: MIDODRINE HCL 10 MG TABLET GT SCH ×3 (05:06→21:02)
--- NOTE | 2020-05-28 07:11 | NUR ---
Will test patient for COVID-19 today.
[2020-05-28 07:30] VITALS: BP 100/59
[2020-05-28] MEDS: DESMOPRESSIN 0.1 MG TABLET GT SCH (08:27)
[2020-05-28] MEDS: PHENYTOIN 100 MG/4 ML UDC GT SCH ×2 (08:28→21:01)
[2020-05-28] MEDS: ACIDOPHILUS/BULGARICUS CHEW TAB GT SCH ×2 (08:28→21:01)
[2020-05-28] MEDS: levETIRAcetam 500 MG/5 ML LIQUID UDC GT SCH ×2 (08:29→21:01)
[2020-05-28] MEDS: FUROSEMIDE 20 MG/2 ML GT SCH (08:29)
[2020-05-28] MEDS: POTASSIUM CHLORIDE 40 MEQ/30 ML LIQUID UDC GT SCH (08:29)
[2020-05-28] MEDS: NEOMY/BACITRA/POLYMYXIN B OINT UD PACKET TP SCH ×2 (08:30→21:02)
[2020-05-28] MEDS: NYSTATIN OINTMENT 15 GM TUBE TP SCH ×4 (08:30→21:01)
[2020-05-28] MEDS: COD LIVER OIL/ZINC OXIDE OINT 113 GM TUBE TOP SCH ×2 (08:30→21:01)
[2020-05-28] MEDS: HYDROGEN PEROXIDE 3% 118 ML BOTTLE TP SCH ×2 (09:22→19:40)
--- NOTE | 2020-05-28 10:24 | NUR ---
ELVA ERVIN'S FRIEND AWARE WITH A MESSAGE RE:COVID19 TEST TODAY AND IF ANY QUESTIONS CALL BACK.
[2020-05-28] MEDS: VITAL AF 1.2 1,000 ML LIQUID GT SCH (11:43)
--- NOTE | 2020-05-28 16:44 | NUR ---
SEEN BY EMMY Agustin AND WITH NNO.
[2020-05-28 20:18] VITALS: BP 114/67
[2020-05-28] MEDS: THIAMINE HCL 100 MG TABLET GT SCH (21:01)
[2020-05-28] MEDS: FOLIC ACID 1 MG TABLET GT SCH (21:01)
[2020-05-28] MEDS: CHOLECALCIFEROL 1,000 UNIT TABLET GT SCH (21:01)
[2020-05-29] MEDS: IPRATROPIUM BROMIDE 0.5 MG/2.5 ML NEBU NEB SCH ×6 (03:34→22:30)
[2020-05-29] MEDS: ALBUTEROL SULFATE 2.5 MG/3 ML NEBU NEB SCH ×6 (03:34→22:30)
[2020-05-29] MEDS: BACLOFEN 10 MG TABLET GT SCH ×3 (06:37→21:31)
[2020-05-29] MEDS: BACLOFEN 20 MG TABLET GT SCH ×3 (06:37→21:32)
[2020-05-29] MEDS: OMEPRAZOLE 20 MG CAPSULE.DR GT SCH (06:38)
[2020-05-29] MEDS: MIDODRINE HCL 10 MG TABLET GT SCH ×3 (06:38→21:32)
[2020-05-29] MEDS: METOCLOPRAMIDE HCL 5 MG TABLET GT SCH ×3 (06:38→21:37)
[2020-05-29] MEDS: HYDROGEN PEROXIDE 3% 118 ML BOTTLE TP SCH ×2 (07:24→21:11)
[2020-05-29 07:37] VITALS: BP 111/62
[2020-05-29] MEDS: levETIRAcetam 500 MG/5 ML LIQUID UDC GT SCH ×2 (09:13→21:29)
[2020-05-29] MEDS: PHENYTOIN 100 MG/4 ML UDC GT SCH ×2 (09:13→21:28)
[2020-05-29] MEDS: FUROSEMIDE 20 MG/2 ML GT SCH (09:13)
[2020-05-29] MEDS: ACIDOPHILUS/BULGARICUS CHEW TAB GT SCH ×2 (09:13→21:28)
[2020-05-29] MEDS: POTASSIUM CHLORIDE 40 MEQ/30 ML LIQUID UDC GT SCH (09:13)
[2020-05-29] MEDS: DESMOPRESSIN 0.1 MG TABLET GT SCH (09:13)
[2020-05-29] MEDS: COD LIVER OIL/ZINC OXIDE OINT 113 GM TUBE TOP SCH ×2 (09:15→21:31)
[2020-05-29] MEDS: NYSTATIN OINTMENT 15 GM TUBE TP SCH ×4 (09:16→21:31)
[2020-05-29] MEDS: NEOMY/BACITRA/POLYMYXIN B OINT UD PACKET TP SCH ×2 (09:16→21:31)
[2020-05-29] MEDS: VITAL AF 1.2 1,000 ML LIQUID GT SCH (12:54)
--- NOTE | 2020-05-29 14:03 | NUR ---
INTERDISCIPLINARY PLAN OF CARE CONFERENCE was held today. Patient's family was not available to participate in the meeting. Dr. Wagner and the Interdisciplinary team reviewed the current plan of care in detail. RN reported on the patient's medical condition. No major changes in patient's condition were reported by RN or by the other disciplines. See RN IDT conference notes. See also all other disciplines IDT notes and physician's progress notes for additional details.
[2020-05-29 20:11] VITALS: BP 112/63
[2020-05-29] MEDS: FOLIC ACID 1 MG TABLET GT SCH (21:29)
[2020-05-29] MEDS: THIAMINE HCL 100 MG TABLET GT SCH (21:30)
[2020-05-29] MEDS: CHOLECALCIFEROL 1,000 UNIT TABLET GT SCH (21:30)
[2020-05-30] MEDS: ALBUTEROL SULFATE 2.5 MG/3 ML NEBU NEB SCH ×6 (02:30→22:30)
[2020-05-30] MEDS: IPRATROPIUM BROMIDE 0.5 MG/2.5 ML NEBU NEB SCH ×6 (02:30→22:30)
[2020-05-30] MEDS: BACLOFEN 20 MG TABLET GT SCH ×3 (06:03→21:47)
[2020-05-30] MEDS: BACLOFEN 10 MG TABLET GT SCH ×3 (06:03→21:47)
[2020-05-30] MEDS: MIDODRINE HCL 10 MG TABLET GT SCH ×3 (06:03→21:50)
[2020-05-30] MEDS: OMEPRAZOLE 20 MG CAPSULE.DR GT SCH (06:04)
[2020-05-30] MEDS: METOCLOPRAMIDE HCL 5 MG TABLET GT SCH ×3 (06:04→21:51)
[2020-05-30 07:28] VITALS: BP 107/61
[2020-05-30] MEDS: FUROSEMIDE 20 MG/2 ML GT SCH (08:52)
[2020-05-30] MEDS: POTASSIUM CHLORIDE 40 MEQ/30 ML LIQUID UDC GT SCH (08:52)
[2020-05-30] MEDS: levETIRAcetam 500 MG/5 ML LIQUID UDC GT SCH ×2 (08:52→21:46)
[2020-05-30] MEDS: PHENYTOIN 100 MG/4 ML UDC GT SCH ×2 (08:52→21:46)
[2020-05-30] MEDS: ACIDOPHILUS/BULGARICUS CHEW TAB GT SCH ×2 (08:52→21:46)
[2020-05-30] MEDS: DESMOPRESSIN 0.1 MG TABLET GT SCH (08:52)
[2020-05-30] MEDS: NEOMY/BACITRA/POLYMYXIN B OINT UD PACKET TP SCH ×2 (08:53→21:46)
[2020-05-30] MEDS: NYSTATIN OINTMENT 15 GM TUBE TP SCH ×4 (08:53→21:46)
[2020-05-30] MEDS: COD LIVER OIL/ZINC OXIDE OINT 113 GM TUBE TOP SCH ×2 (08:53→21:46)
[2020-05-30] MEDS: HYDROGEN PEROXIDE 3% 118 ML BOTTLE TP SCH ×2 (09:08→20:47)
[2020-05-30] MEDS: VITAL AF 1.2 1,000 ML LIQUID GT SCH (16:26)
--- NOTE | 2020-05-30 17:07 | NUR ---
Seen and examined by Dr Meyer ,no new orders.
--- NOTE | 2020-05-30 20:00 | NUR ---
Added monitoring for adverse side effect from Ativan every shift.
[2020-05-30] MEDS: CHOLECALCIFEROL 1,000 UNIT TABLET GT SCH (21:46)
[2020-05-30] MEDS: FOLIC ACID 1 MG TABLET GT SCH (21:46)
[2020-05-30] MEDS: THIAMINE HCL 100 MG TABLET GT SCH (21:46)
[2020-05-30 22:31] VITALS: BP 127/64
[2020-05-31] MEDS: ALBUTEROL SULFATE 2.5 MG/3 ML NEBU NEB SCH ×6 (02:30→22:40)
[2020-05-31] MEDS: IPRATROPIUM BROMIDE 0.5 MG/2.5 ML NEBU NEB SCH ×6 (02:30→22:40)
[2020-05-31] MEDS: BACLOFEN 10 MG TABLET GT SCH ×3 (05:14→21:46)
[2020-05-31] MEDS: BACLOFEN 20 MG TABLET GT SCH ×3 (05:14→21:46)
[2020-05-31] MEDS: OMEPRAZOLE 20 MG CAPSULE.DR GT SCH (05:15)
[2020-05-31] MEDS: MIDODRINE HCL 10 MG TABLET GT SCH ×3 (05:15→21:46)
[2020-05-31] MEDS: METOCLOPRAMIDE HCL 5 MG TABLET GT SCH ×3 (05:15→21:46)
[2020-05-31 05:18] VITALS: BP 115/61
[2020-05-31 06:46] LABS: BASOPHILS % (AUTO) 0.6 % (0.0-2.0); CARBON DIOXIDE 23 mmol/L (21-32); CHLORIDE 109 mmol/L (98-107); CREATININE 0.4 mg/dL (0.6-1.3); EOSINOPHILS # (AUTO) 0.7 K/uL (0.0-0.7); EOSINOPHILS % (AUTO) 10.5 % (0.0-7.0); GLUCOSE 92 mg/dL (74-106); HEMATOCRIT 29.4 % (31.2-41.9); LYMPHOCYTES # (AUTO) 1.9 K/uL (20.0-40.0); LYMPHOCYTES % (AUTO) 29.3 % (20.5-51.5); MAGNESIUM 1.8 mg/dL (1.8-2.4); MEAN CORPUSCULAR HEMOGLOBIN 31.3 uug (24.7-32.8); MEAN CORPUSCULAR HGB CONC 34 g/dL (32.3-35.6); MEAN CORPUSCULAR VOLUME 92.3 fL (75.5-95.3); MONOCYTES # (AUTO) 0.3 K/uL (2.0-10.0); MONOCYTES % (AUTO) 5.1 % (0.0-11.0); NEUTROPHILS # (AUTO) 3.6 K/uL (1.8-8.9); NEUTROPHILS % (AUTO) 54.5 % (38.5-71.5); PHOSPHOROUS 3.9 mg/dL (2.5-4.9); PLATELET COUNT (AUTO) 284 K/uL (179-408); POTASSIUM 3.6 mmol/L (3.5-5.1); RED BLOOD CELL COUNT(AUTO) 3.19 MIL/uL (3.63-4.92); UREA NITROGEN, BLOOD 21 mg/dL (7-18); WHITE BLOOD COUNT (AUTO) 6.6 K/uL (3.8-11.8)
[2020-05-31] MEDS: HYDROGEN PEROXIDE 3% 118 ML BOTTLE TP SCH ×2 (07:27→19:09)
[2020-05-31] MEDS: PHENYTOIN 100 MG/4 ML UDC GT SCH ×2 (09:49→21:39)
[2020-05-31] MEDS: NYSTATIN OINTMENT 15 GM TUBE TP SCH ×4 (09:49→21:45)
[2020-05-31] MEDS: FUROSEMIDE 20 MG/2 ML GT SCH (09:49)
[2020-05-31] MEDS: POTASSIUM CHLORIDE 40 MEQ/30 ML LIQUID UDC GT SCH (09:49)
[2020-05-31] MEDS: NEOMY/BACITRA/POLYMYXIN B OINT UD PACKET TP SCH ×2 (09:49→21:45)
[2020-05-31] MEDS: DESMOPRESSIN 0.1 MG TABLET GT SCH (09:49)
[2020-05-31] MEDS: COD LIVER OIL/ZINC OXIDE OINT 113 GM TUBE TOP SCH ×2 (09:49→21:45)
[2020-05-31] MEDS: levETIRAcetam 500 MG/5 ML LIQUID UDC GT SCH ×2 (09:49→21:43)
[2020-05-31] MEDS: ACIDOPHILUS/BULGARICUS CHEW TAB GT SCH ×2 (09:49→21:39)
[2020-05-31 20:08] VITALS: BP 108/59
[2020-05-31] MEDS: FOLIC ACID 1 MG TABLET GT SCH (21:39)
[2020-05-31] MEDS: THIAMINE HCL 100 MG TABLET GT SCH (21:44)
[2020-05-31] MEDS: CHOLECALCIFEROL 1,000 UNIT TABLET GT SCH (21:44)
[2020-06-01] MEDS: IPRATROPIUM BROMIDE 0.5 MG/2.5 ML NEBU NEB SCH ×6 (02:40→23:17)
[2020-06-01] MEDS: ALBUTEROL SULFATE 2.5 MG/3 ML NEBU NEB SCH ×6 (02:40→23:17)
[2020-06-01] MEDS: BACLOFEN 10 MG TABLET GT SCH ×3 (06:15→21:37)
[2020-06-01] MEDS: BACLOFEN 20 MG TABLET GT SCH ×3 (06:15→21:37)
[2020-06-01 06:16] VITALS: BP 105/60
[2020-06-01] MEDS: OMEPRAZOLE 20 MG CAPSULE.DR GT SCH (06:16)
[2020-06-01] MEDS: METOCLOPRAMIDE HCL 5 MG TABLET GT SCH ×3 (06:16→21:37)
[2020-06-01] MEDS: MIDODRINE HCL 10 MG TABLET GT SCH ×3 (06:18→21:38)
[2020-06-01 07:36] VITALS: BP 119/66
[2020-06-01] MEDS: HYDROGEN PEROXIDE 3% 118 ML BOTTLE TP SCH ×2 (08:57→21:14)
[2020-06-01] MEDS: POTASSIUM CHLORIDE 40 MEQ/30 ML LIQUID UDC GT SCH (09:37)
[2020-06-01] MEDS: FUROSEMIDE 20 MG/2 ML GT SCH (09:37)
[2020-06-01] MEDS: DESMOPRESSIN 0.1 MG TABLET GT SCH (09:37)
[2020-06-01] MEDS: levETIRAcetam 500 MG/5 ML LIQUID UDC GT SCH ×2 (09:37→20:33)
[2020-06-01] MEDS: PHENYTOIN 100 MG/4 ML UDC GT SCH ×2 (09:37→20:32)
[2020-06-01] MEDS: ACIDOPHILUS/BULGARICUS CHEW TAB GT SCH ×2 (09:37→20:32)
[2020-06-01] MEDS: NYSTATIN OINTMENT 15 GM TUBE TP SCH ×4 (09:38→20:33)
[2020-06-01] MEDS: COD LIVER OIL/ZINC OXIDE OINT 113 GM TUBE TOP SCH ×2 (09:38→20:33)
[2020-06-01] MEDS: NEOMY/BACITRA/POLYMYXIN B OINT UD PACKET TP SCH ×2 (09:38→20:33)
--- NOTE | 2020-06-01 11:00 | NUR ---
Provided video chat to pt. and her mother with no problem noted, pt remains comfortable, all needs attended and anticipated.
[2020-06-01 19:45] VITALS: BP 101/57
[2020-06-01] MEDS: THIAMINE HCL 100 MG TABLET GT SCH (20:33)
[2020-06-01] MEDS: FOLIC ACID 1 MG TABLET GT SCH (20:33)
[2020-06-01] MEDS: CHOLECALCIFEROL 1,000 UNIT TABLET GT SCH (20:33)
[2020-06-02] MEDS: ALBUTEROL SULFATE 2.5 MG/3 ML NEBU NEB SCH ×6 (03:39→22:35)
[2020-06-02] MEDS: IPRATROPIUM BROMIDE 0.5 MG/2.5 ML NEBU NEB SCH ×6 (03:39→22:35)
[2020-06-02] MEDS: BACLOFEN 10 MG TABLET GT SCH ×3 (05:06→21:40)
[2020-06-02] MEDS: MIDODRINE HCL 10 MG TABLET GT SCH ×3 (05:06→21:40)
[2020-06-02] MEDS: METOCLOPRAMIDE HCL 5 MG TABLET GT SCH ×3 (05:06→21:40)
[2020-06-02] MEDS: BACLOFEN 20 MG TABLET GT SCH ×3 (05:06→21:40)
[2020-06-02] MEDS: OMEPRAZOLE 20 MG CAPSULE.DR GT SCH (05:06)
[2020-06-02 07:32] VITALS: BP 119/79
[2020-06-02] MEDS: PHENYTOIN 100 MG/4 ML UDC GT SCH ×2 (08:35→20:34)
[2020-06-02] MEDS: COD LIVER OIL/ZINC OXIDE OINT 113 GM TUBE TOP SCH ×2 (08:35→20:35)
[2020-06-02] MEDS: FUROSEMIDE 20 MG/2 ML GT SCH (08:35)
[2020-06-02] MEDS: POTASSIUM CHLORIDE 40 MEQ/30 ML LIQUID UDC GT SCH (08:35)
[2020-06-02] MEDS: ACIDOPHILUS/BULGARICUS CHEW TAB GT SCH ×2 (08:35→20:34)
[2020-06-02] MEDS: levETIRAcetam 500 MG/5 ML LIQUID UDC GT SCH ×2 (08:35→20:34)
[2020-06-02] MEDS: DESMOPRESSIN 0.1 MG TABLET GT SCH (08:35)
[2020-06-02] MEDS: NEOMY/BACITRA/POLYMYXIN B OINT UD PACKET TP SCH ×2 (08:41→20:35)
[2020-06-02] MEDS: NYSTATIN OINTMENT 15 GM TUBE TP SCH ×4 (08:41→20:35)
[2020-06-02] MEDS: HYDROGEN PEROXIDE 3% 118 ML BOTTLE TP SCH ×2 (08:59→19:01)
[2020-06-02] MEDS: VITAL AF 1.2 1,000 ML LIQUID GT SCH (13:26)
[2020-06-02 19:40] VITALS: BP 111/70
[2020-06-02] MEDS: CHOLECALCIFEROL 1,000 UNIT TABLET GT SCH (20:34)
[2020-06-02] MEDS: FOLIC ACID 1 MG TABLET GT SCH (20:34)
[2020-06-02] MEDS: THIAMINE HCL 100 MG TABLET GT SCH (20:34)
[2020-06-03] MEDS: ALBUTEROL SULFATE 2.5 MG/3 ML NEBU NEB SCH ×6 (02:40→22:56)
[2020-06-03] MEDS: IPRATROPIUM BROMIDE 0.5 MG/2.5 ML NEBU NEB SCH ×6 (02:40→22:56)
[2020-06-03] MEDS: BACLOFEN 20 MG TABLET GT SCH ×3 (05:20→21:16)
[2020-06-03] MEDS: BACLOFEN 10 MG TABLET GT SCH ×3 (05:20→21:16)
[2020-06-03] MEDS: MIDODRINE HCL 10 MG TABLET GT SCH ×3 (05:21→21:16)
[2020-06-03] MEDS: OMEPRAZOLE 20 MG CAPSULE.DR GT SCH (05:21)
[2020-06-03] MEDS: METOCLOPRAMIDE HCL 5 MG TABLET GT SCH ×3 (05:21→21:17)
[2020-06-03 07:30] VITALS: BP 131/71
[2020-06-03] MEDS: HYDROGEN PEROXIDE 3% 118 ML BOTTLE TP SCH ×2 (09:00→20:29)
[2020-06-03] MEDS: PHENYTOIN 100 MG/4 ML UDC GT SCH ×2 (09:25→20:31)
[2020-06-03] MEDS: DESMOPRESSIN 0.1 MG TABLET GT SCH (09:25)
[2020-06-03] MEDS: ACIDOPHILUS/BULGARICUS CHEW TAB GT SCH ×2 (09:26→20:31)
[2020-06-03] MEDS: levETIRAcetam 500 MG/5 ML LIQUID UDC GT SCH ×2 (09:27→20:31)
[2020-06-03] MEDS: POTASSIUM CHLORIDE 40 MEQ/30 ML LIQUID UDC GT SCH (09:28)
[2020-06-03] MEDS: FUROSEMIDE 20 MG/2 ML GT SCH (09:28)
[2020-06-03] MEDS: COD LIVER OIL/ZINC OXIDE OINT 113 GM TUBE TOP SCH ×2 (09:29→20:31)
[2020-06-03] MEDS: NYSTATIN OINTMENT 15 GM TUBE TP SCH ×4 (09:29→20:31)
[2020-06-03] MEDS: NEOMY/BACITRA/POLYMYXIN B OINT UD PACKET TP SCH ×2 (09:29→20:31)
[2020-06-03] MEDS: VITAL AF 1.2 1,000 ML LIQUID GT SCH (14:47)
[2020-06-03 19:45] VITALS: BP 129/70
[2020-06-03] MEDS: FOLIC ACID 1 MG TABLET GT SCH (20:31)
[2020-06-03] MEDS: CHOLECALCIFEROL 1,000 UNIT TABLET GT SCH (20:31)
[2020-06-03] MEDS: THIAMINE HCL 100 MG TABLET GT SCH (20:31)
[2020-06-04] MEDS: IPRATROPIUM BROMIDE 0.5 MG/2.5 ML NEBU NEB SCH ×6 (03:22→23:15)
[2020-06-04] MEDS: ALBUTEROL SULFATE 2.5 MG/3 ML NEBU NEB SCH ×6 (03:22→23:15)
[2020-06-04] MEDS: BACLOFEN 20 MG TABLET GT SCH ×3 (05:27→22:09)
[2020-06-04] MEDS: BACLOFEN 10 MG TABLET GT SCH ×3 (05:27→22:09)
[2020-06-04] MEDS: MIDODRINE HCL 10 MG TABLET GT SCH ×3 (05:27→22:00)
[2020-06-04] MEDS: OMEPRAZOLE 20 MG CAPSULE.DR GT SCH (05:28)
[2020-06-04] MEDS: METOCLOPRAMIDE HCL 5 MG TABLET GT SCH ×3 (05:28→22:10)
[2020-06-04] MEDS: HYDROGEN PEROXIDE 3% 118 ML BOTTLE TP SCH ×2 (07:21→21:14)
[2020-06-04 07:52] VITALS: BP 107/59
[2020-06-04] MEDS: PHENYTOIN 100 MG/4 ML UDC GT SCH ×2 (09:37→21:00)
[2020-06-04] MEDS: DESMOPRESSIN 0.1 MG TABLET GT SCH (09:37)
[2020-06-04] MEDS: FUROSEMIDE 20 MG/2 ML GT SCH (09:37)
[2020-06-04] MEDS: POTASSIUM CHLORIDE 40 MEQ/30 ML LIQUID UDC GT SCH (09:37)
[2020-06-04] MEDS: levETIRAcetam 500 MG/5 ML LIQUID UDC GT SCH ×2 (09:37→20:25)
[2020-06-04] MEDS: COD LIVER OIL/ZINC OXIDE OINT 113 GM TUBE TOP SCH ×2 (09:37→20:25)
[2020-06-04] MEDS: ACIDOPHILUS/BULGARICUS CHEW TAB GT SCH ×2 (09:37→20:24)
[2020-06-04] MEDS: NYSTATIN OINTMENT 15 GM TUBE TP SCH ×2 (09:39)
[2020-06-04] MEDS: NEOMY/BACITRA/POLYMYXIN B OINT UD PACKET TP SCH ×2 (09:39→20:25)
[2020-06-04] MEDS: VITAL AF 1.2 1,000 ML LIQUID GT SCH (13:32)
[2020-06-04] MEDS: FOLIC ACID 1 MG TABLET GT SCH (20:24)
[2020-06-04] MEDS: CHOLECALCIFEROL 1,000 UNIT TABLET GT SCH (20:25)
[2020-06-04] MEDS: THIAMINE HCL 100 MG TABLET GT SCH (20:25)
[2020-06-04 20:34] VITALS: BP 121/61
[2020-06-05] MEDS: IPRATROPIUM BROMIDE 0.5 MG/2.5 ML NEBU NEB SCH ×6 (03:19→23:16)
[2020-06-05] MEDS: ALBUTEROL SULFATE 2.5 MG/3 ML NEBU NEB SCH ×6 (03:19→23:16)
[2020-06-05] MEDS: BACLOFEN 10 MG TABLET GT SCH ×3 (05:03→21:01)
[2020-06-05] MEDS: MIDODRINE HCL 10 MG TABLET GT SCH ×3 (05:04→21:01)
[2020-06-05] MEDS: METOCLOPRAMIDE HCL 5 MG TABLET GT SCH ×3 (05:04→21:01)
[2020-06-05] MEDS: BACLOFEN 20 MG TABLET GT SCH ×3 (05:04→21:01)
[2020-06-05] MEDS: OMEPRAZOLE 20 MG CAPSULE.DR GT SCH (05:04)
[2020-06-05 07:35] VITALS: BP 95/59
[2020-06-05] MEDS: HYDROGEN PEROXIDE 3% 118 ML BOTTLE TP SCH ×2 (09:37→20:56)
[2020-06-05] MEDS: ACIDOPHILUS/BULGARICUS CHEW TAB GT SCH ×2 (09:50→20:21)
[2020-06-05] MEDS: NEOMY/BACITRA/POLYMYXIN B OINT UD PACKET TP SCH ×2 (09:50→20:24)
[2020-06-05] MEDS: DESMOPRESSIN 0.1 MG TABLET GT SCH (09:50)
[2020-06-05] MEDS: levETIRAcetam 500 MG/5 ML LIQUID UDC GT SCH ×2 (09:50→20:22)
[2020-06-05] MEDS: POTASSIUM CHLORIDE 40 MEQ/30 ML LIQUID UDC GT SCH (09:50)
[2020-06-05] MEDS: COD LIVER OIL/ZINC OXIDE OINT 113 GM TUBE TOP SCH ×2 (09:50→20:23)
[2020-06-05] MEDS: FUROSEMIDE 20 MG/2 ML GT SCH (09:50)
[2020-06-05] MEDS: PHENYTOIN 100 MG/4 ML UDC GT SCH ×2 (09:50→20:39)
[2020-06-05] MEDS: VITAL AF 1.2 1,000 ML LIQUID GT SCH (12:26)
[2020-06-05] MEDS: FOLIC ACID 1 MG TABLET GT SCH (20:21)
[2020-06-05] MEDS: THIAMINE HCL 100 MG TABLET GT SCH (20:22)
[2020-06-05] MEDS: CHOLECALCIFEROL 1,000 UNIT TABLET GT SCH (20:23)
[2020-06-05 20:33] VITALS: BP 134/64
[2020-06-06] MEDS: IPRATROPIUM BROMIDE 0.5 MG/2.5 ML NEBU NEB SCH ×6 (03:18→22:30)
[2020-06-06] MEDS: ALBUTEROL SULFATE 2.5 MG/3 ML NEBU NEB SCH ×6 (03:18→22:30)
[2020-06-06] MEDS: BACLOFEN 20 MG TABLET GT SCH ×3 (05:25→21:59)
[2020-06-06] MEDS: METOCLOPRAMIDE HCL 5 MG TABLET GT SCH ×3 (05:25→22:00)
[2020-06-06] MEDS: MIDODRINE HCL 10 MG TABLET GT SCH ×3 (05:25→22:00)
[2020-06-06] MEDS: OMEPRAZOLE 20 MG CAPSULE.DR GT SCH (05:25)
[2020-06-06] MEDS: BACLOFEN 10 MG TABLET GT SCH ×3 (05:25→21:59)
[2020-06-06] MEDS: HYDROGEN PEROXIDE 3% 118 ML BOTTLE TP SCH ×2 (07:40→21:02)
[2020-06-06 08:04] VITALS: BP 108/65
[2020-06-06] MEDS: COD LIVER OIL/ZINC OXIDE OINT 113 GM TUBE TOP SCH ×2 (09:27→20:21)
[2020-06-06] MEDS: levETIRAcetam 500 MG/5 ML LIQUID UDC GT SCH ×2 (09:27→20:20)
[2020-06-06] MEDS: PHENYTOIN 100 MG/4 ML UDC GT SCH ×2 (09:27→21:59)
[2020-06-06] MEDS: ACIDOPHILUS/BULGARICUS CHEW TAB GT SCH ×2 (09:27→20:18)
[2020-06-06] MEDS: NEOMY/BACITRA/POLYMYXIN B OINT UD PACKET TP SCH ×2 (09:27→20:21)
[2020-06-06] MEDS: DESMOPRESSIN 0.1 MG TABLET GT SCH (09:27)
[2020-06-06] MEDS: POTASSIUM CHLORIDE 40 MEQ/30 ML LIQUID UDC GT SCH (09:27)
[2020-06-06] MEDS: FUROSEMIDE 20 MG/2 ML GT SCH (09:27)
[2020-06-06] MEDS: FOLIC ACID 1 MG TABLET GT SCH (20:19)
[2020-06-06] MEDS: THIAMINE HCL 100 MG TABLET GT SCH (20:20)
[2020-06-06] MEDS: CHOLECALCIFEROL 1,000 UNIT TABLET GT SCH (20:21)
[2020-06-06 22:50] VITALS: BP 103/52
[2020-06-07] MEDS: IPRATROPIUM BROMIDE 0.5 MG/2.5 ML NEBU NEB SCH ×6 (02:30→23:19)
[2020-06-07] MEDS: ALBUTEROL SULFATE 2.5 MG/3 ML NEBU NEB SCH ×6 (02:30→23:19)
[2020-06-07] MEDS: BACLOFEN 20 MG TABLET GT SCH ×3 (05:03→21:12)
[2020-06-07] MEDS: METOCLOPRAMIDE HCL 5 MG TABLET GT SCH ×3 (05:03→21:12)
[2020-06-07] MEDS: OMEPRAZOLE 20 MG CAPSULE.DR GT SCH (05:03)
[2020-06-07] MEDS: BACLOFEN 10 MG TABLET GT SCH ×3 (05:03→21:12)
[2020-06-07] MEDS: MIDODRINE HCL 10 MG TABLET GT SCH ×3 (05:03→21:12)
[2020-06-07] MEDS: HYDROGEN PEROXIDE 3% 118 ML BOTTLE TP SCH ×2 (07:32→20:55)
[2020-06-07 07:48] VITALS: BP 107/59
[2020-06-07] MEDS: PHENYTOIN 100 MG/4 ML UDC GT SCH ×2 (08:18→21:10)
[2020-06-07] MEDS: DESMOPRESSIN 0.1 MG TABLET GT SCH (08:18)
[2020-06-07] MEDS: ACIDOPHILUS/BULGARICUS CHEW TAB GT SCH ×2 (08:20→21:10)
[2020-06-07] MEDS: POTASSIUM CHLORIDE 40 MEQ/30 ML LIQUID UDC GT SCH (08:22)
[2020-06-07] MEDS: levETIRAcetam 500 MG/5 ML LIQUID UDC GT SCH ×2 (08:22→21:11)
[2020-06-07] MEDS: FUROSEMIDE 20 MG/2 ML GT SCH (08:22)
[2020-06-07] MEDS: COD LIVER OIL/ZINC OXIDE OINT 113 GM TUBE TOP SCH ×2 (08:23→21:11)
[2020-06-07] MEDS: NEOMY/BACITRA/POLYMYXIN B OINT UD PACKET TP SCH ×2 (08:23→21:12)
--- NOTE | 2020-06-07 19:15 | NUR ---
SEEN AND EXAMINED BY DR. WORTHINGTON AND WITH NNO.
[2020-06-07 20:00] VITALS: BP 115/63
[2020-06-07] MEDS: FOLIC ACID 1 MG TABLET GT SCH (21:10)
[2020-06-07] MEDS: THIAMINE HCL 100 MG TABLET GT SCH (21:11)
[2020-06-07] MEDS: CHOLECALCIFEROL 1,000 UNIT TABLET GT SCH (21:11)
[2020-06-07 22:00] VITALS: BP 115/63
[2020-06-08] MEDS: ALBUTEROL SULFATE 2.5 MG/3 ML NEBU NEB SCH ×6 (03:16→23:09)
[2020-06-08] MEDS: IPRATROPIUM BROMIDE 0.5 MG/2.5 ML NEBU NEB SCH ×6 (03:16→23:09)
[2020-06-08] MEDS: MIDODRINE HCL 10 MG TABLET GT SCH ×3 (05:28→22:21)
[2020-06-08] MEDS: BACLOFEN 10 MG TABLET GT SCH ×3 (05:28→22:20)
[2020-06-08] MEDS: OMEPRAZOLE 20 MG CAPSULE.DR GT SCH (05:28)
[2020-06-08] MEDS: BACLOFEN 20 MG TABLET GT SCH ×3 (05:28→22:20)
[2020-06-08] MEDS: METOCLOPRAMIDE HCL 5 MG TABLET GT SCH ×3 (05:28→22:21)
[2020-06-08 07:51] VITALS: BP 131/72
[2020-06-08 07:54] VITALS: BP 107/59
[2020-06-08] MEDS: COD LIVER OIL/ZINC OXIDE OINT 113 GM TUBE TOP SCH ×2 (09:00→21:00)
[2020-06-08] MEDS: NEOMY/BACITRA/POLYMYXIN B OINT UD PACKET TP SCH ×2 (09:00→21:00)
[2020-06-08] MEDS: ACIDOPHILUS/BULGARICUS CHEW TAB GT SCH ×2 (09:00→21:00)
[2020-06-08] MEDS: DESMOPRESSIN 0.1 MG TABLET GT SCH (09:00)
[2020-06-08] MEDS: levETIRAcetam 500 MG/5 ML LIQUID UDC GT SCH ×2 (09:00→21:00)
[2020-06-08] MEDS: FUROSEMIDE 20 MG/2 ML GT SCH (09:00)
[2020-06-08] MEDS: PHENYTOIN 100 MG/4 ML UDC GT SCH ×2 (09:00→21:00)
[2020-06-08] MEDS: POTASSIUM CHLORIDE 40 MEQ/30 ML LIQUID UDC GT SCH (09:00)
[2020-06-08] MEDS: HYDROGEN PEROXIDE 3% 118 ML BOTTLE TP SCH ×2 (09:22→21:23)
[2020-06-08] MEDS: THIAMINE HCL 100 MG TABLET GT SCH (21:00)
[2020-06-08] MEDS: FOLIC ACID 1 MG TABLET GT SCH (21:00)
[2020-06-08] MEDS: CHOLECALCIFEROL 1,000 UNIT TABLET GT SCH (21:00)
[2020-06-08 22:27] VITALS: BP 103/55
[2020-06-09] MEDS: ALBUTEROL SULFATE 2.5 MG/3 ML NEBU NEB SCH ×6 (03:10→22:30)
[2020-06-09] MEDS: IPRATROPIUM BROMIDE 0.5 MG/2.5 ML NEBU NEB SCH ×6 (03:10→22:30)
[2020-06-09] MEDS: BACLOFEN 10 MG TABLET GT SCH ×3 (06:04→21:56)
[2020-06-09] MEDS: BACLOFEN 20 MG TABLET GT SCH ×3 (06:04→21:56)
[2020-06-09] MEDS: MIDODRINE HCL 10 MG TABLET GT SCH ×3 (06:05→21:56)
[2020-06-09] MEDS: METOCLOPRAMIDE HCL 5 MG TABLET GT SCH ×3 (06:06→21:56)
[2020-06-09] MEDS: OMEPRAZOLE 20 MG CAPSULE.DR GT SCH (06:06)
[2020-06-09 07:40] VITALS: BP 128/76
[2020-06-09] MEDS: PHENYTOIN 100 MG/4 ML UDC GT SCH ×2 (08:48→20:52)
[2020-06-09] MEDS: POTASSIUM CHLORIDE 40 MEQ/30 ML LIQUID UDC GT SCH (08:48)
[2020-06-09] MEDS: levETIRAcetam 500 MG/5 ML LIQUID UDC GT SCH ×2 (08:48→20:52)
[2020-06-09] MEDS: NEOMY/BACITRA/POLYMYXIN B OINT UD PACKET TP SCH ×2 (08:48→20:52)
[2020-06-09] MEDS: FUROSEMIDE 20 MG/2 ML GT SCH (08:48)
[2020-06-09] MEDS: DESMOPRESSIN 0.1 MG TABLET GT SCH (08:48)
[2020-06-09] MEDS: COD LIVER OIL/ZINC OXIDE OINT 113 GM TUBE TOP SCH ×2 (08:48→20:52)
[2020-06-09] MEDS: ACIDOPHILUS/BULGARICUS CHEW TAB GT SCH ×2 (08:48→20:52)
[2020-06-09] MEDS: HYDROGEN PEROXIDE 3% 118 ML BOTTLE TP SCH ×2 (09:09→20:52)
[2020-06-09] MEDS: VITAL AF 1.2 1,000 ML LIQUID GT SCH (13:29)
--- NOTE | 2020-06-09 18:30 | NUR ---
Received pt on HT-50 ventilator with the following settings of SIMV-12, Vt-500, PEEP+5, PS-10, FIO2-2LPM bleed in, trached with Shiley#6 DCT trach, which is in the place and secure. No distress noted. Airway care done, pt responded to physical stimuli. In-line HHN tx with 2.5mg Albuterol+0.5mg Atrovent given, no adverse reaction noted. HME, HHN adaptor and Sx Garza changed. Pt has a gauze between her lips, to prevent biting. Resus. bag and back up trach at bedside. Vent and alarms checked and reset.
[2020-06-09] MEDS: THIAMINE HCL 100 MG TABLET GT SCH (20:52)
[2020-06-09] MEDS: FOLIC ACID 1 MG TABLET GT SCH (20:52)
[2020-06-09] MEDS: CHOLECALCIFEROL 1,000 UNIT TABLET GT SCH (20:52)
[2020-06-09 22:23] VITALS: BP 127/74
[2020-06-10] MEDS: ALBUTEROL SULFATE 2.5 MG/3 ML NEBU NEB SCH ×6 (02:30→22:30)
[2020-06-10] MEDS: IPRATROPIUM BROMIDE 0.5 MG/2.5 ML NEBU NEB SCH ×6 (02:30→22:30)
[2020-06-10] MEDS: OMEPRAZOLE 20 MG CAPSULE.DR GT SCH (05:33)
[2020-06-10] MEDS: METOCLOPRAMIDE HCL 5 MG TABLET GT SCH ×3 (05:33→21:23)
[2020-06-10] MEDS: MIDODRINE HCL 10 MG TABLET GT SCH ×3 (05:33→21:23)
[2020-06-10] MEDS: BACLOFEN 10 MG TABLET GT SCH ×3 (05:33→21:22)
[2020-06-10] MEDS: BACLOFEN 20 MG TABLET GT SCH ×3 (05:33→21:23)
[2020-06-10 07:38] VITALS: BP 116/70
[2020-06-10] MEDS: HYDROGEN PEROXIDE 3% 118 ML BOTTLE TP SCH ×2 (07:54→21:14)
[2020-06-10] MEDS: COD LIVER OIL/ZINC OXIDE OINT 113 GM TUBE TOP SCH ×2 (08:38→21:22)
[2020-06-10] MEDS: POTASSIUM CHLORIDE 40 MEQ/30 ML LIQUID UDC GT SCH (08:38)
[2020-06-10] MEDS: FUROSEMIDE 20 MG/2 ML GT SCH (08:38)
[2020-06-10] MEDS: PHENYTOIN 100 MG/4 ML UDC GT SCH ×2 (08:38→21:21)
[2020-06-10] MEDS: ACIDOPHILUS/BULGARICUS CHEW TAB GT SCH ×2 (08:38→21:21)
[2020-06-10] MEDS: NEOMY/BACITRA/POLYMYXIN B OINT UD PACKET TP SCH ×2 (08:38→21:22)
[2020-06-10] MEDS: levETIRAcetam 500 MG/5 ML LIQUID UDC GT SCH ×2 (08:38→21:21)
[2020-06-10] MEDS: DESMOPRESSIN 0.1 MG TABLET GT SCH (08:38)
[2020-06-10] MEDS: VITAL AF 1.2 1,000 ML LIQUID GT SCH (16:48)
[2020-06-10] MEDS: FOLIC ACID 1 MG TABLET GT SCH (21:21)
[2020-06-10] MEDS: THIAMINE HCL 100 MG TABLET GT SCH (21:21)
[2020-06-10] MEDS: CHOLECALCIFEROL 1,000 UNIT TABLET GT SCH (21:22)
[2020-06-10 21:35] VITALS: BP 112/68
[2020-06-11] MEDS: IPRATROPIUM BROMIDE 0.5 MG/2.5 ML NEBU NEB SCH ×6 (02:30→22:41)
[2020-06-11] MEDS: ALBUTEROL SULFATE 2.5 MG/3 ML NEBU NEB SCH ×6 (02:30→22:41)
[2020-06-11] MEDS: BACLOFEN 10 MG TABLET GT SCH ×3 (05:36→22:58)
[2020-06-11] MEDS: BACLOFEN 20 MG TABLET GT SCH ×3 (05:36→22:58)
[2020-06-11] MEDS: OMEPRAZOLE 20 MG CAPSULE.DR GT SCH (05:37)
[2020-06-11] MEDS: MIDODRINE HCL 10 MG TABLET GT SCH ×3 (05:37→22:59)
[2020-06-11] MEDS: METOCLOPRAMIDE HCL 5 MG TABLET GT SCH ×3 (05:38→22:00)
[2020-06-11] MEDS: HYDROGEN PEROXIDE 3% 118 ML BOTTLE TP SCH ×2 (07:28→19:25)
[2020-06-11 07:29] VITALS: BP 96/58
[2020-06-11] MEDS: PHENYTOIN 100 MG/4 ML UDC GT SCH ×2 (08:56→20:51)
[2020-06-11] MEDS: DESMOPRESSIN 0.1 MG TABLET GT SCH (08:56)
[2020-06-11] MEDS: POTASSIUM CHLORIDE 40 MEQ/30 ML LIQUID UDC GT SCH (08:57)
[2020-06-11] MEDS: NEOMY/BACITRA/POLYMYXIN B OINT UD PACKET TP SCH ×2 (08:57→20:52)
[2020-06-11] MEDS: COD LIVER OIL/ZINC OXIDE OINT 113 GM TUBE TOP SCH ×2 (08:57→20:52)
[2020-06-11] MEDS: FUROSEMIDE 20 MG/2 ML GT SCH (08:57)
[2020-06-11] MEDS: ACIDOPHILUS/BULGARICUS CHEW TAB GT SCH ×2 (08:57→20:51)
[2020-06-11] MEDS: levETIRAcetam 500 MG/5 ML LIQUID UDC GT SCH ×2 (08:57→20:52)
[2020-06-11 20:19] VITALS: BP 87/51
[2020-06-11] MEDS: FOLIC ACID 1 MG TABLET GT SCH (20:52)
[2020-06-11] MEDS: CHOLECALCIFEROL 1,000 UNIT TABLET GT SCH (20:52)
[2020-06-11] MEDS: THIAMINE HCL 100 MG TABLET GT SCH (20:52)
[2020-06-12] MEDS: ALBUTEROL SULFATE 2.5 MG/3 ML NEBU NEB SCH ×6 (02:40→23:29)
[2020-06-12] MEDS: IPRATROPIUM BROMIDE 0.5 MG/2.5 ML NEBU NEB SCH ×6 (02:40→23:29)
[2020-06-12] MEDS: BACLOFEN 10 MG TABLET GT SCH ×3 (05:06→21:05)
[2020-06-12] MEDS: BACLOFEN 20 MG TABLET GT SCH ×3 (05:06→21:05)
[2020-06-12] MEDS: MIDODRINE HCL 10 MG TABLET GT SCH ×3 (05:07→22:00)
[2020-06-12] MEDS: METOCLOPRAMIDE HCL 5 MG TABLET GT SCH ×3 (05:07→21:06)
[2020-06-12] MEDS: OMEPRAZOLE 20 MG CAPSULE.DR GT SCH (05:07)
[2020-06-12 07:39] VITALS: BP 97/52
[2020-06-12] MEDS: HYDROGEN PEROXIDE 3% 118 ML BOTTLE TP SCH ×2 (09:49→20:52)
[2020-06-12] MEDS: DESMOPRESSIN 0.1 MG TABLET GT SCH (09:52)
[2020-06-12] MEDS: PHENYTOIN 100 MG/4 ML UDC GT SCH ×2 (09:54→21:00)
[2020-06-12] MEDS: levETIRAcetam 500 MG/5 ML LIQUID UDC GT SCH ×2 (09:54→21:04)
[2020-06-12] MEDS: ACIDOPHILUS/BULGARICUS CHEW TAB GT SCH ×2 (09:54→21:00)
[2020-06-12] MEDS: FUROSEMIDE 20 MG/2 ML GT SCH (09:55)
[2020-06-12] MEDS: POTASSIUM CHLORIDE 40 MEQ/30 ML LIQUID UDC GT SCH (09:56)
[2020-06-12] MEDS: NEOMY/BACITRA/POLYMYXIN B OINT UD PACKET TP SCH ×2 (09:56→21:05)
[2020-06-12] MEDS: COD LIVER OIL/ZINC OXIDE OINT 113 GM TUBE TOP SCH ×2 (09:56→21:05)
[2020-06-12] MEDS: VITAL AF 1.2 1,000 ML LIQUID GT SCH (18:40)
--- NOTE | 2020-06-12 19:52 | NUR ---
SEEN AND EXAMINED BY DR Armas,NO NEW ORDERS.
[2020-06-12 20:05] VITALS: BP 88/46
[2020-06-12] MEDS: FOLIC ACID 1 MG TABLET GT SCH (21:00)
[2020-06-12] MEDS: THIAMINE HCL 100 MG TABLET GT SCH (21:04)
[2020-06-12] MEDS: CHOLECALCIFEROL 1,000 UNIT TABLET GT SCH (21:05)
[2020-06-13] MEDS: ALBUTEROL SULFATE 2.5 MG/3 ML NEBU NEB SCH ×6 (03:23→22:30)
[2020-06-13] MEDS: IPRATROPIUM BROMIDE 0.5 MG/2.5 ML NEBU NEB SCH ×6 (03:23→22:30)
--- NOTE | 2020-06-13 05:30 | NUR ---
Patient's skin noted to be cool to the touch, Checked Temperature and is 95 degrees Fahrenheit, no signs of any distress noted, Applied Som Renegger at this time, will continue monitor patient.
[2020-06-13] MEDS: MIDODRINE HCL 10 MG TABLET GT SCH ×3 (05:49→21:04)
[2020-06-13] MEDS: BACLOFEN 10 MG TABLET GT SCH ×3 (05:49→21:04)
[2020-06-13] MEDS: BACLOFEN 20 MG TABLET GT SCH ×3 (05:49→21:04)
[2020-06-13] MEDS: OMEPRAZOLE 20 MG CAPSULE.DR GT SCH (05:50)
[2020-06-13] MEDS: METOCLOPRAMIDE HCL 5 MG TABLET GT SCH ×3 (05:50→21:04)
--- NOTE | 2020-06-13 06:18 | NUR ---
Rechecked Temperature and is now 97.5, patient's skin feels warm, no signs of any distress, kept clean and comfortable.
[2020-06-13 07:20] LABS: BASOPHILS # (AUTO) 0.1 K/uL (0.0-8.0); EOSINOPHILS # (AUTO) 0.5 K/uL (0.0-0.7); EOSINOPHILS % (AUTO) 8.2 % (0.0-7.0); HEMATOCRIT 31.6 % (31.2-41.9); HEMOGLOBIN 10.8 g/dL (10.9-14.3); LYMPHOCYTES % (AUTO) 34.6 % (20.5-51.5); MEAN CORPUSCULAR HEMOGLOBIN 31.5 uug (24.7-32.8); MEAN CORPUSCULAR HGB CONC 34 g/dL (32.3-35.6); MONOCYTES # (AUTO) 0.3 K/uL (2.0-10.0); MONOCYTES % (AUTO) 6.2 % (0.0-11.0); NEUTROPHILS # (AUTO) 2.8 K/uL (1.8-8.9); PLATELET COUNT (AUTO) 285 K/uL (179-408); RED BLOOD CELL COUNT(AUTO) 3.43 MIL/uL (3.63-4.92); WHITE BLOOD COUNT (AUTO) 5.6 K/uL (3.8-11.8)
[2020-06-13 07:40] LABS: CARBON DIOXIDE 20 mmol/L (21-32); CHLORIDE 113 mmol/L (98-107); CREATININE 0.5 mg/dL (0.6-1.3); GLUCOSE 83 mg/dL (74-106); PHOSPHOROUS 3.9 mg/dL (2.5-4.9); POTASSIUM 4.1 mmol/L (3.5-5.1); UREA NITROGEN, BLOOD 20 mg/dL (7-18)
[2020-06-13 07:51] VITALS: BP 102/58
[2020-06-13] MEDS: HYDROGEN PEROXIDE 3% 118 ML BOTTLE TP SCH ×2 (09:00→21:27)
[2020-06-13] MEDS: PHENYTOIN 100 MG/4 ML UDC GT SCH ×2 (09:44→21:04)
[2020-06-13] MEDS: DESMOPRESSIN 0.1 MG TABLET GT SCH (09:44)
[2020-06-13] MEDS: levETIRAcetam 500 MG/5 ML LIQUID UDC GT SCH ×2 (09:46→20:14)
[2020-06-13] MEDS: ACIDOPHILUS/BULGARICUS CHEW TAB GT SCH ×2 (09:46→20:14)
[2020-06-13] MEDS: FUROSEMIDE 20 MG/2 ML GT SCH (09:47)
[2020-06-13] MEDS: COD LIVER OIL/ZINC OXIDE OINT 113 GM TUBE TOP SCH ×2 (09:47→20:15)
[2020-06-13] MEDS: POTASSIUM CHLORIDE 40 MEQ/30 ML LIQUID UDC GT SCH (09:47)
[2020-06-13] MEDS: NEOMY/BACITRA/POLYMYXIN B OINT UD PACKET TP SCH ×2 (09:47→20:15)
[2020-06-13] MEDS: VITAL AF 1.2 1,000 ML LIQUID GT SCH (18:41)
[2020-06-13 20:11] VITALS: BP 101/62
[2020-06-13] MEDS: CHOLECALCIFEROL 1,000 UNIT TABLET GT SCH (20:14)
[2020-06-13] MEDS: THIAMINE HCL 100 MG TABLET GT SCH (20:14)
[2020-06-13] MEDS: FOLIC ACID 1 MG TABLET GT SCH (20:14)
[2020-06-14] MEDS: IPRATROPIUM BROMIDE 0.5 MG/2.5 ML NEBU NEB SCH ×6 (02:30→23:16)
[2020-06-14] MEDS: ALBUTEROL SULFATE 2.5 MG/3 ML NEBU NEB SCH ×6 (02:30→23:16)
[2020-06-14] MEDS: METOCLOPRAMIDE HCL 5 MG TABLET GT SCH ×3 (05:57→22:28)
[2020-06-14] MEDS: OMEPRAZOLE 20 MG CAPSULE.DR GT SCH (05:57)
[2020-06-14] MEDS: BACLOFEN 20 MG TABLET GT SCH ×3 (05:57→22:28)
[2020-06-14] MEDS: MIDODRINE HCL 10 MG TABLET GT SCH ×3 (05:57→22:28)
[2020-06-14] MEDS: BACLOFEN 10 MG TABLET GT SCH ×3 (05:57→22:27)
[2020-06-14 07:44] VITALS: BP 100/56
[2020-06-14] MEDS: HYDROGEN PEROXIDE 3% 118 ML BOTTLE TP SCH ×2 (09:00→21:09)
[2020-06-14] MEDS: PHENYTOIN 100 MG/4 ML UDC GT SCH ×2 (09:18→20:53)
[2020-06-14] MEDS: levETIRAcetam 500 MG/5 ML LIQUID UDC GT SCH ×2 (09:18→20:55)
[2020-06-14] MEDS: DESMOPRESSIN 0.1 MG TABLET GT SCH (09:18)
[2020-06-14] MEDS: ACIDOPHILUS/BULGARICUS CHEW TAB GT SCH ×2 (09:18→20:53)
[2020-06-14] MEDS: POTASSIUM CHLORIDE 40 MEQ/30 ML LIQUID UDC GT SCH (09:18)
[2020-06-14] MEDS: FUROSEMIDE 20 MG/2 ML GT SCH (09:18)
[2020-06-14] MEDS: NEOMY/BACITRA/POLYMYXIN B OINT UD PACKET TP SCH ×2 (09:19→20:56)
[2020-06-14] MEDS: COD LIVER OIL/ZINC OXIDE OINT 113 GM TUBE TOP SCH ×2 (09:19→20:55)
[2020-06-14 20:00] VITALS: BP 103/59
[2020-06-14] MEDS: FOLIC ACID 1 MG TABLET GT SCH (20:55)
[2020-06-14] MEDS: CHOLECALCIFEROL 1,000 UNIT TABLET GT SCH (20:55)
[2020-06-14] MEDS: THIAMINE HCL 100 MG TABLET GT SCH (20:55)
[2020-06-15] MEDS: VITAL AF 1.2 1,000 ML LIQUID GT SCH (00:29)
[2020-06-15] MEDS: ALBUTEROL SULFATE 2.5 MG/3 ML NEBU NEB SCH ×6 (03:19→22:52)
[2020-06-15] MEDS: IPRATROPIUM BROMIDE 0.5 MG/2.5 ML NEBU NEB SCH ×6 (03:19→22:52)
[2020-06-15] MEDS: BACLOFEN 10 MG TABLET GT SCH ×3 (05:05→21:24)
[2020-06-15] MEDS: BACLOFEN 20 MG TABLET GT SCH ×3 (05:05→21:24)
[2020-06-15] MEDS: OMEPRAZOLE 20 MG CAPSULE.DR GT SCH (05:05)
[2020-06-15] MEDS: MIDODRINE HCL 10 MG TABLET GT SCH ×3 (05:05→21:24)
[2020-06-15] MEDS: METOCLOPRAMIDE HCL 5 MG TABLET GT SCH ×3 (05:05→21:24)
[2020-06-15 08:01] VITALS: BP 100/62
[2020-06-15] MEDS: PHENYTOIN 100 MG/4 ML UDC GT SCH ×2 (08:43→21:24)
[2020-06-15] MEDS: DESMOPRESSIN 0.1 MG TABLET GT SCH (08:43)
[2020-06-15] MEDS: ACIDOPHILUS/BULGARICUS CHEW TAB GT SCH ×2 (08:44→21:24)
[2020-06-15] MEDS: levETIRAcetam 500 MG/5 ML LIQUID UDC GT SCH ×2 (08:44→21:24)
[2020-06-15] MEDS: POTASSIUM CHLORIDE 40 MEQ/30 ML LIQUID UDC GT SCH (08:47)
[2020-06-15] MEDS: COD LIVER OIL/ZINC OXIDE OINT 113 GM TUBE TOP SCH ×2 (08:47→21:24)
[2020-06-15] MEDS: FUROSEMIDE 20 MG/2 ML GT SCH (08:47)
[2020-06-15] MEDS: NEOMY/BACITRA/POLYMYXIN B OINT UD PACKET TP SCH ×2 (08:47→21:24)
[2020-06-15] MEDS: HYDROGEN PEROXIDE 3% 118 ML BOTTLE TP SCH ×2 (09:30→21:23)
--- NOTE | 2020-06-15 10:59 | NUR ---
Mother notified of annual ppd to be done, Mother in agreement with test.
[2020-06-15 20:00] VITALS: BP 107/59
[2020-06-15] MEDS: FOLIC ACID 1 MG TABLET GT SCH (21:24)
[2020-06-15] MEDS: CHOLECALCIFEROL 1,000 UNIT TABLET GT SCH (21:24)
[2020-06-15] MEDS: THIAMINE HCL 100 MG TABLET GT SCH (21:24)
[2020-06-16] MEDS: VITAL AF 1.2 1,000 ML LIQUID GT SCH (00:05)
[2020-06-16] MEDS: IPRATROPIUM BROMIDE 0.5 MG/2.5 ML NEBU NEB SCH ×6 (03:02→22:30)
[2020-06-16] MEDS: ALBUTEROL SULFATE 2.5 MG/3 ML NEBU NEB SCH ×6 (03:02→22:30)
[2020-06-16] MEDS: BACLOFEN 20 MG TABLET GT SCH ×3 (05:19→21:06)
[2020-06-16] MEDS: BACLOFEN 10 MG TABLET GT SCH ×3 (05:19→21:06)
[2020-06-16] MEDS: OMEPRAZOLE 20 MG CAPSULE.DR GT SCH (05:20)
[2020-06-16] MEDS: MIDODRINE HCL 10 MG TABLET GT SCH ×3 (05:20→21:38)
[2020-06-16] MEDS: METOCLOPRAMIDE HCL 5 MG TABLET GT SCH ×3 (05:20→21:38)
[2020-06-16 07:49] VITALS: BP 103/62
[2020-06-16] MEDS: HYDROGEN PEROXIDE 3% 118 ML BOTTLE TP SCH ×2 (07:50→21:31)
[2020-06-16] MEDS: DESMOPRESSIN 0.1 MG TABLET GT SCH (09:16)
[2020-06-16] MEDS: ACIDOPHILUS/BULGARICUS CHEW TAB GT SCH ×2 (09:18→21:06)
[2020-06-16] MEDS: levETIRAcetam 500 MG/5 ML LIQUID UDC GT SCH ×2 (09:18→21:06)
[2020-06-16] MEDS: PHENYTOIN 100 MG/4 ML UDC GT SCH ×2 (09:18→21:06)
[2020-06-16] MEDS: FUROSEMIDE 20 MG/2 ML GT SCH (09:20)
[2020-06-16] MEDS: POTASSIUM CHLORIDE 40 MEQ/30 ML LIQUID UDC GT SCH (09:20)
[2020-06-16] MEDS: COD LIVER OIL/ZINC OXIDE OINT 113 GM TUBE TOP SCH ×2 (09:21→21:06)
[2020-06-16] MEDS: NEOMY/BACITRA/POLYMYXIN B OINT UD PACKET TP SCH ×2 (09:21→21:06)
--- NOTE | 2020-06-16 18:30 | NUR ---
Pt received on HT-50 ventilator with the following settings of SIMV-12, Vt-500, PEEP+5, PS-10, FIO2-2LPM bleed in, trached with Susyley#6 DCT trach, which is in the place and secure. No distress noted. Airway care done, pt responded to physical stimuli. In-line HHN tx with 2.5mg Albuterol+0.5mg Atrovent given, no adverse reaction noted. HME and Sx Garza changed. Pt has a gauze between her lips, to prevent biting. Resus. bag and back up trach at bedside. Vent and alarms checked and reset.
[2020-06-16] MEDS: THIAMINE HCL 100 MG TABLET GT SCH (21:06)
[2020-06-16] MEDS: FOLIC ACID 1 MG TABLET GT SCH (21:06)
[2020-06-16] MEDS: CHOLECALCIFEROL 1,000 UNIT TABLET GT SCH (21:06)
[2020-06-16 22:10] VITALS: BP 94/50
[2020-06-17] MEDS: VITAL AF 1.2 1,000 ML LIQUID GT SCH (00:27)
[2020-06-17] MEDS: ALBUTEROL SULFATE 2.5 MG/3 ML NEBU NEB SCH ×6 (02:30→22:40)
[2020-06-17] MEDS: IPRATROPIUM BROMIDE 0.5 MG/2.5 ML NEBU NEB SCH ×6 (02:30→22:40)
[2020-06-17] MEDS: OMEPRAZOLE 20 MG CAPSULE.DR GT SCH (05:25)
[2020-06-17] MEDS: MIDODRINE HCL 10 MG TABLET GT SCH ×3 (05:25→22:00)
[2020-06-17] MEDS: BACLOFEN 10 MG TABLET GT SCH ×3 (05:25→22:00)
[2020-06-17] MEDS: BACLOFEN 20 MG TABLET GT SCH ×3 (05:25→22:00)
[2020-06-17] MEDS: METOCLOPRAMIDE HCL 5 MG TABLET GT SCH ×3 (05:25→22:00)
[2020-06-17 07:37] VITALS: BP 98/63
[2020-06-17] MEDS: ACIDOPHILUS/BULGARICUS CHEW TAB GT SCH ×2 (08:44→20:38)
[2020-06-17] MEDS: PHENYTOIN 100 MG/4 ML UDC GT SCH ×2 (08:44→20:38)
[2020-06-17] MEDS: DESMOPRESSIN 0.1 MG TABLET GT SCH (08:44)
[2020-06-17] MEDS: FUROSEMIDE 20 MG/2 ML GT SCH (08:46)
[2020-06-17] MEDS: levETIRAcetam 500 MG/5 ML LIQUID UDC GT SCH ×2 (08:46→20:40)
[2020-06-17] MEDS: POTASSIUM CHLORIDE 40 MEQ/30 ML LIQUID UDC GT SCH (08:46)
[2020-06-17] MEDS: COD LIVER OIL/ZINC OXIDE OINT 113 GM TUBE TOP SCH ×2 (08:47→20:41)
[2020-06-17] MEDS: NEOMY/BACITRA/POLYMYXIN B OINT UD PACKET TP SCH (08:47)
[2020-06-17] MEDS: HYDROGEN PEROXIDE 3% 118 ML BOTTLE TP SCH ×2 (09:55→19:23)
[2020-06-17 20:28] VITALS: BP 99/61
[2020-06-17] MEDS: FOLIC ACID 1 MG TABLET GT SCH (20:38)
[2020-06-17] MEDS: CHOLECALCIFEROL 1,000 UNIT TABLET GT SCH (20:41)
[2020-06-17] MEDS: THIAMINE HCL 100 MG TABLET GT SCH (20:41)
--- NOTE | 2020-06-17 22:00 | NUR ---
New orders noted for Tx on the lower lip open skin,carried out.
[2020-06-18] MEDS: ALBUTEROL SULFATE 2.5 MG/3 ML NEBU NEB SCH ×6 (02:40→22:31)
[2020-06-18] MEDS: IPRATROPIUM BROMIDE 0.5 MG/2.5 ML NEBU NEB SCH ×6 (02:40→22:31)
[2020-06-18] MEDS: VITAL AF 1.2 1,000 ML LIQUID GT SCH (05:26)
[2020-06-18] MEDS: BACLOFEN 20 MG TABLET GT SCH ×3 (05:26→22:00)
[2020-06-18] MEDS: BACLOFEN 10 MG TABLET GT SCH ×3 (05:26→22:00)
[2020-06-18] MEDS: OMEPRAZOLE 20 MG CAPSULE.DR GT SCH (05:26)
[2020-06-18] MEDS: MIDODRINE HCL 10 MG TABLET GT SCH ×3 (05:26→22:00)
[2020-06-18] MEDS: METOCLOPRAMIDE HCL 5 MG TABLET GT SCH ×3 (05:26→22:00)
[2020-06-18 07:44] VITALS: BP 100/50
[2020-06-18] MEDS: FUROSEMIDE 20 MG/2 ML GT SCH (09:05)
[2020-06-18] MEDS: ACIDOPHILUS/BULGARICUS CHEW TAB GT SCH ×2 (09:05→20:10)
[2020-06-18] MEDS: COD LIVER OIL/ZINC OXIDE OINT 113 GM TUBE TOP SCH ×2 (09:05→20:12)
[2020-06-18] MEDS: DESMOPRESSIN 0.1 MG TABLET GT SCH (09:05)
[2020-06-18] MEDS: PHENYTOIN 100 MG/4 ML UDC GT SCH ×2 (09:05→20:08)
[2020-06-18] MEDS: POTASSIUM CHLORIDE 40 MEQ/30 ML LIQUID UDC GT SCH (09:05)
[2020-06-18] MEDS: NEOMY/BACITRA/POLYMYXIN B OINT UD PACKET TP SCH ×2 (09:05→20:16)
[2020-06-18] MEDS: levETIRAcetam 500 MG/5 ML LIQUID UDC GT SCH ×2 (09:05→20:10)
[2020-06-18] MEDS: HYDROGEN PEROXIDE 3% 118 ML BOTTLE TP SCH ×2 (12:24→22:00)
--- NOTE | 2020-06-18 15:16 | NUR ---
Left message to mother regarding covid19 test will be done today.
[2020-06-18] MEDS: FOLIC ACID 1 MG TABLET GT SCH (20:08)
[2020-06-18] MEDS: THIAMINE HCL 100 MG TABLET GT SCH (20:10)
[2020-06-18] MEDS: CHOLECALCIFEROL 1,000 UNIT TABLET GT SCH (20:11)
[2020-06-18 20:20] VITALS: BP 88/44
[2020-06-19] MEDS: VITAL AF 1.2 1,000 ML LIQUID GT SCH (00:47)
[2020-06-19] MEDS: IPRATROPIUM BROMIDE 0.5 MG/2.5 ML NEBU NEB SCH ×5 (02:39→19:41)
[2020-06-19] MEDS: ALBUTEROL SULFATE 2.5 MG/3 ML NEBU NEB SCH ×5 (02:39→19:41)
[2020-06-19] MEDS: OMEPRAZOLE 20 MG CAPSULE.DR GT SCH (05:33)
[2020-06-19] MEDS: BACLOFEN 20 MG TABLET GT SCH ×3 (05:33→21:42)
[2020-06-19] MEDS: METOCLOPRAMIDE HCL 5 MG TABLET GT SCH ×3 (05:33→21:42)
[2020-06-19] MEDS: MIDODRINE HCL 10 MG TABLET GT SCH ×3 (05:33→21:42)
[2020-06-19] MEDS: BACLOFEN 10 MG TABLET GT SCH ×3 (05:33→21:42)
[2020-06-19 07:28] VITALS: BP 108/64
[2020-06-19] MEDS: HYDROGEN PEROXIDE 3% 118 ML BOTTLE TP SCH ×2 (07:35→21:30)
[2020-06-19] MEDS: COD LIVER OIL/ZINC OXIDE OINT 113 GM TUBE TOP SCH ×2 (09:10→21:41)
[2020-06-19] MEDS: FUROSEMIDE 20 MG/2 ML GT SCH (09:10)
[2020-06-19] MEDS: ACIDOPHILUS/BULGARICUS CHEW TAB GT SCH ×2 (09:10→21:41)
[2020-06-19] MEDS: DESMOPRESSIN 0.1 MG TABLET GT SCH (09:10)
[2020-06-19] MEDS: levETIRAcetam 500 MG/5 ML LIQUID UDC GT SCH ×2 (09:10→21:41)
[2020-06-19] MEDS: PHENYTOIN 100 MG/4 ML UDC GT SCH ×2 (09:10→21:41)
[2020-06-19] MEDS: POTASSIUM CHLORIDE 40 MEQ/30 ML LIQUID UDC GT SCH (09:10)
[2020-06-19] MEDS: NEOMY/BACITRA/POLYMYXIN B OINT UD PACKET TP SCH ×2 (09:10→21:42)
[2020-06-19 20:12] VITALS: BP 95/54
[2020-06-19] MEDS: THIAMINE HCL 100 MG TABLET GT SCH (21:41)
[2020-06-19] MEDS: FOLIC ACID 1 MG TABLET GT SCH (21:41)
[2020-06-19] MEDS: CHOLECALCIFEROL 1,000 UNIT TABLET GT SCH (21:41)
[2020-06-20] MEDS: ALBUTEROL SULFATE 2.5 MG/3 ML NEBU NEB SCH ×7 (00:06→23:17)
[2020-06-20] MEDS: IPRATROPIUM BROMIDE 0.5 MG/2.5 ML NEBU NEB SCH ×7 (00:06→23:17)
[2020-06-20] MEDS: VITAL AF 1.2 1,000 ML LIQUID GT SCH (01:26)
[2020-06-20 04:43] VITALS: BP 84/52
[2020-06-20] MEDS: BACLOFEN 20 MG TABLET GT SCH ×3 (05:25→21:57)
[2020-06-20] MEDS: METOCLOPRAMIDE HCL 5 MG TABLET GT SCH ×3 (05:25→21:57)
[2020-06-20] MEDS: OMEPRAZOLE 20 MG CAPSULE.DR GT SCH (05:25)
[2020-06-20] MEDS: BACLOFEN 10 MG TABLET GT SCH ×3 (05:25→21:57)
[2020-06-20] MEDS: MIDODRINE HCL 10 MG TABLET GT SCH ×3 (05:25→21:57)
[2020-06-20 07:34] VITALS: BP 118/71
[2020-06-20] MEDS: DESMOPRESSIN 0.1 MG TABLET GT SCH (08:58)
[2020-06-20] MEDS: PHENYTOIN 100 MG/4 ML UDC GT SCH ×2 (08:58→21:57)
[2020-06-20] MEDS: ACIDOPHILUS/BULGARICUS CHEW TAB GT SCH ×2 (08:58→20:51)
[2020-06-20] MEDS: levETIRAcetam 500 MG/5 ML LIQUID UDC GT SCH ×2 (08:58→20:53)
[2020-06-20] MEDS: COD LIVER OIL/ZINC OXIDE OINT 113 GM TUBE TOP SCH ×2 (08:58→20:54)
[2020-06-20] MEDS: FUROSEMIDE 20 MG/2 ML GT SCH (08:58)
[2020-06-20] MEDS: POTASSIUM CHLORIDE 40 MEQ/30 ML LIQUID UDC GT SCH (08:58)
[2020-06-20] MEDS: NEOMY/BACITRA/POLYMYXIN B OINT UD PACKET TP SCH ×2 (08:58→20:54)
[2020-06-20] MEDS: HYDROGEN PEROXIDE 3% 118 ML BOTTLE TP SCH ×2 (09:00→20:57)
--- NOTE | 2020-06-20 18:00 | NUR ---
Pt's mother was notified regarding Covid 19 results negative.
[2020-06-20 20:18] VITALS: BP 88/48
[2020-06-20] MEDS: FOLIC ACID 1 MG TABLET GT SCH (20:52)
[2020-06-20] MEDS: THIAMINE HCL 100 MG TABLET GT SCH (20:53)
[2020-06-20] MEDS: CHOLECALCIFEROL 1,000 UNIT TABLET GT SCH (20:54)
[2020-06-21] MEDS: ALBUTEROL SULFATE 2.5 MG/3 ML NEBU NEB SCH ×6 (03:11→23:18)
[2020-06-21] MEDS: IPRATROPIUM BROMIDE 0.5 MG/2.5 ML NEBU NEB SCH ×6 (03:11→23:18)
[2020-06-21] MEDS: VITAL AF 1.2 1,000 ML LIQUID GT SCH (03:32)
[2020-06-21] MEDS: BACLOFEN 20 MG TABLET GT SCH ×3 (05:56→21:46)
[2020-06-21] MEDS: BACLOFEN 10 MG TABLET GT SCH ×3 (05:56→21:46)
[2020-06-21] MEDS: METOCLOPRAMIDE HCL 5 MG TABLET GT SCH ×3 (05:57→21:47)
[2020-06-21] MEDS: MIDODRINE HCL 10 MG TABLET GT SCH ×3 (05:57→21:47)
[2020-06-21] MEDS: OMEPRAZOLE 20 MG CAPSULE.DR GT SCH (05:57)
[2020-06-21] MEDS: HYDROGEN PEROXIDE 3% 118 ML BOTTLE TP SCH ×2 (07:22→21:10)
[2020-06-21 07:39] VITALS: BP 123/74
[2020-06-21] MEDS: NEOMY/BACITRA/POLYMYXIN B OINT UD PACKET TP SCH ×2 (08:00→21:46)
[2020-06-21] MEDS: levETIRAcetam 500 MG/5 ML LIQUID UDC GT SCH ×2 (08:00→21:45)
[2020-06-21] MEDS: COD LIVER OIL/ZINC OXIDE OINT 113 GM TUBE TOP SCH ×2 (08:00→21:45)
[2020-06-21] MEDS: DESMOPRESSIN 0.1 MG TABLET GT SCH (08:00)
[2020-06-21] MEDS: FUROSEMIDE 20 MG/2 ML GT SCH (08:00)
[2020-06-21] MEDS: POTASSIUM CHLORIDE 40 MEQ/30 ML LIQUID UDC GT SCH (08:00)
[2020-06-21] MEDS: ACIDOPHILUS/BULGARICUS CHEW TAB GT SCH ×2 (08:00→21:43)
[2020-06-21] MEDS: PHENYTOIN 100 MG/4 ML UDC GT SCH ×2 (08:00→21:43)
[2020-06-21] MEDS: BISACODYL 10 MG SUPP.RECT RC PRN (17:42)
[2020-06-21] MEDS: THIAMINE HCL 100 MG TABLET GT SCH (21:45)
[2020-06-21] MEDS: FOLIC ACID 1 MG TABLET GT SCH (21:45)
[2020-06-21] MEDS: CHOLECALCIFEROL 1,000 UNIT TABLET GT SCH (21:45)
[2020-06-21 22:50] VITALS: BP 106/64
[2020-06-22] MEDS: ALBUTEROL SULFATE 2.5 MG/3 ML NEBU NEB SCH ×6 (04:14→23:55)
[2020-06-22] MEDS: IPRATROPIUM BROMIDE 0.5 MG/2.5 ML NEBU NEB SCH ×6 (04:14→23:55)
[2020-06-22] MEDS: BACLOFEN 10 MG TABLET GT SCH ×3 (05:39→21:09)
[2020-06-22] MEDS: BACLOFEN 20 MG TABLET GT SCH ×3 (05:39→21:09)
[2020-06-22] MEDS: OMEPRAZOLE 20 MG CAPSULE.DR GT SCH (05:40)
[2020-06-22] MEDS: MIDODRINE HCL 10 MG TABLET GT SCH ×3 (05:40→21:09)
[2020-06-22] MEDS: METOCLOPRAMIDE HCL 5 MG TABLET GT SCH ×3 (05:40→21:09)
[2020-06-22 06:11] VITALS: BP 89/53
[2020-06-22 07:33] VITALS: BP 99/56
[2020-06-22] MEDS: levETIRAcetam 500 MG/5 ML LIQUID UDC GT SCH ×2 (08:09→20:27)
[2020-06-22] MEDS: NEOMY/BACITRA/POLYMYXIN B OINT UD PACKET TP SCH ×2 (08:09→20:27)
[2020-06-22] MEDS: ACIDOPHILUS/BULGARICUS CHEW TAB GT SCH ×2 (08:09→20:27)
[2020-06-22] MEDS: DESMOPRESSIN 0.1 MG TABLET GT SCH (08:09)
[2020-06-22] MEDS: FUROSEMIDE 20 MG/2 ML GT SCH (08:09)
[2020-06-22] MEDS: POTASSIUM CHLORIDE 40 MEQ/30 ML LIQUID UDC GT SCH (08:09)
[2020-06-22] MEDS: COD LIVER OIL/ZINC OXIDE OINT 113 GM TUBE TOP SCH ×2 (08:09→20:27)
[2020-06-22] MEDS: PHENYTOIN 100 MG/4 ML UDC GT SCH ×2 (08:09→20:27)
[2020-06-22] MEDS: HYDROGEN PEROXIDE 3% 118 ML BOTTLE TP SCH ×2 (09:30→21:30)
--- NOTE | 2020-06-22 11:00 | NUR ---
provided zoom for patient with mother and father.
[2020-06-22] MEDS: VITAL AF 1.2 1,000 ML LIQUID GT SCH (11:18)
[2020-06-22 15:41] LABS: BASOPHILS % (AUTO) 0.5 % (0.0-2.0); EOSINOPHILS # (AUTO) 0.3 K/uL (0.0-0.7); EOSINOPHILS % (AUTO) 4.5 % (0.0-7.0); HEMATOCRIT 28.6 % (31.2-41.9); HEMOGLOBIN 9.9 g/dL (10.9-14.3); LYMPHOCYTES # (AUTO) 1.6 K/uL (20.0-40.0); LYMPHOCYTES % (AUTO) 26.8 % (20.5-51.5); MEAN CORPUSCULAR HEMOGLOBIN 31.2 uug (24.7-32.8); MEAN CORPUSCULAR HGB CONC 35 g/dL (32.3-35.6); MEAN CORPUSCULAR VOLUME 90.3 fL (75.5-95.3); MONOCYTES # (AUTO) 0.5 K/uL (2.0-10.0); MONOCYTES % (AUTO) 8.4 % (0.0-11.0); NEUTROPHILS # (AUTO) 3.5 K/uL (1.8-8.9); NEUTROPHILS % (AUTO) 59.8 % (38.5-71.5); PLATELET COUNT (AUTO) 250 K/uL (179-408); RED BLOOD CELL COUNT(AUTO) 3.17 MIL/uL (3.63-4.92); WHITE BLOOD COUNT (AUTO) 5.9 K/uL (3.8-11.8)
[2020-06-22 15:49] LABS: CARBON DIOXIDE 19 mmol/L (21-32); CHLORIDE 106 mmol/L (98-107); CREATININE 0.5 mg/dL (0.6-1.3); GLUCOSE 81 mg/dL (74-106); MAGNESIUM 1.8 mg/dL (1.8-2.4); PHOSPHOROUS 3.3 mg/dL (2.5-4.9); POTASSIUM 4.1 mmol/L (3.5-5.1); UREA NITROGEN, BLOOD 21 mg/dL (7-18)
[2020-06-22] MEDS: FOLIC ACID 1 MG TABLET GT SCH (20:27)
[2020-06-22] MEDS: CHOLECALCIFEROL 1,000 UNIT TABLET GT SCH (20:27)
[2020-06-22] MEDS: THIAMINE HCL 100 MG TABLET GT SCH (20:27)
[2020-06-22 22:14] VITALS: BP 96/60
--- NOTE | 2020-06-23 | NUR ---
Patient noted with Right arm skin irritation, no bleeding noted, skin is red, cleansed and initiated treatment with triple antibiotic ointment daily X 7 days.
--- NOTE | 2020-06-23 00:25 | NUR ---
For COVID-19 testing as per [facility] requirement.
[2020-06-23] MEDS: IPRATROPIUM BROMIDE 0.5 MG/2.5 ML NEBU NEB SCH ×6 (03:32→23:25)
[2020-06-23] MEDS: ALBUTEROL SULFATE 2.5 MG/3 ML NEBU NEB SCH ×6 (03:32→23:25)
[2020-06-23] MEDS: OMEPRAZOLE 20 MG CAPSULE.DR GT SCH (05:27)
[2020-06-23] MEDS: BACLOFEN 10 MG TABLET GT SCH ×3 (05:27→21:12)
[2020-06-23] MEDS: METOCLOPRAMIDE HCL 5 MG TABLET GT SCH ×3 (05:27→21:14)
[2020-06-23] MEDS: BACLOFEN 20 MG TABLET GT SCH ×3 (05:27→21:12)
[2020-06-23] MEDS: MIDODRINE HCL 10 MG TABLET GT SCH ×3 (05:27→21:14)
[2020-06-23 07:37] VITALS: BP 101/61
[2020-06-23] MEDS: HYDROGEN PEROXIDE 3% 118 ML BOTTLE TP SCH ×2 (08:55→21:30)
[2020-06-23] MEDS: PHENYTOIN 100 MG/4 ML UDC GT SCH ×2 (09:05→20:31)
[2020-06-23] MEDS: DESMOPRESSIN 0.1 MG TABLET GT SCH (09:05)
[2020-06-23] MEDS: levETIRAcetam 500 MG/5 ML LIQUID UDC GT SCH ×2 (09:06→20:31)
[2020-06-23] MEDS: POTASSIUM CHLORIDE 40 MEQ/30 ML LIQUID UDC GT SCH (09:06)
[2020-06-23] MEDS: COD LIVER OIL/ZINC OXIDE OINT 113 GM TUBE TOP SCH ×2 (09:06→20:31)
[2020-06-23] MEDS: NEOMY/BACITRA/POLYMYXIN B OINT UD PACKET TP SCH ×2 (09:06→20:31)
[2020-06-23] MEDS: ACIDOPHILUS/BULGARICUS CHEW TAB GT SCH ×2 (09:06→20:31)
[2020-06-23] MEDS: NEOMY/BACITRAC/POLYMI OINT 28.35 GM TUBE TOP SCH (09:06)
[2020-06-23] MEDS: FUROSEMIDE 20 MG/2 ML GT SCH (09:06)
--- NOTE | 2020-06-23 12:39 | NUR ---
PT'S FRIEND JOSÉ LUIS WAS AWARE RE: COVID 19 TEST FOR TODAY TO NOTIFY PT'S FAMILY.
[2020-06-23] MEDS: VITAL AF 1.2 1,000 ML LIQUID GT SCH (17:34)
[2020-06-23] MEDS: CHOLECALCIFEROL 1,000 UNIT TABLET GT SCH (20:31)
[2020-06-23] MEDS: FOLIC ACID 1 MG TABLET GT SCH (20:31)
[2020-06-23] MEDS: THIAMINE HCL 100 MG TABLET GT SCH (20:31)
[2020-06-23 22:11] VITALS: BP 94/58
[2020-06-24] MEDS: ALBUTEROL SULFATE 2.5 MG/3 ML NEBU NEB SCH ×6 (02:56→23:28)
[2020-06-24] MEDS: IPRATROPIUM BROMIDE 0.5 MG/2.5 ML NEBU NEB SCH ×6 (02:56→23:28)
[2020-06-24] MEDS: BACLOFEN 10 MG TABLET GT SCH ×3 (05:32→21:28)
[2020-06-24] MEDS: MIDODRINE HCL 10 MG TABLET GT SCH ×3 (05:33→21:29)
[2020-06-24] MEDS: BACLOFEN 20 MG TABLET GT SCH ×3 (05:33→21:28)
[2020-06-24] MEDS: METOCLOPRAMIDE HCL 5 MG TABLET GT SCH ×3 (05:33→21:28)
[2020-06-24] MEDS: OMEPRAZOLE 20 MG CAPSULE.DR GT SCH (05:33)
[2020-06-24 07:29] VITALS: BP 106/63
[2020-06-24] MEDS: HYDROGEN PEROXIDE 3% 118 ML BOTTLE TP SCH ×2 (08:38→21:39)
[2020-06-24] MEDS: levETIRAcetam 500 MG/5 ML LIQUID UDC GT SCH ×2 (08:40→20:31)
[2020-06-24] MEDS: POTASSIUM CHLORIDE 40 MEQ/30 ML LIQUID UDC GT SCH (08:40)
[2020-06-24] MEDS: COD LIVER OIL/ZINC OXIDE OINT 113 GM TUBE TOP SCH ×2 (08:40→20:31)
[2020-06-24] MEDS: FUROSEMIDE 20 MG/2 ML GT SCH (08:40)
[2020-06-24] MEDS: ACIDOPHILUS/BULGARICUS CHEW TAB GT SCH ×2 (08:40→20:31)
[2020-06-24] MEDS: DESMOPRESSIN 0.1 MG TABLET GT SCH (08:40)
[2020-06-24] MEDS: NEOMY/BACITRAC/POLYMI OINT 28.35 GM TUBE TOP SCH (08:40)
[2020-06-24] MEDS: NEOMY/BACITRA/POLYMYXIN B OINT UD PACKET TP SCH ×2 (08:40→20:31)
[2020-06-24] MEDS: PHENYTOIN 100 MG/4 ML UDC GT SCH ×2 (08:40→20:31)
[2020-06-24] MEDS: VITAL AF 1.2 1,000 ML LIQUID GT SCH (10:56)
--- NOTE | 2020-06-24 18:33 | NUR ---
PT'S FRIEND VICTOR MANUELSaji WAS NOTIFIED RE: COVID 19 TEST NEGATIVE RESULT.
[2020-06-24] MEDS: FOLIC ACID 1 MG TABLET GT SCH (20:31)
[2020-06-24] MEDS: THIAMINE HCL 100 MG TABLET GT SCH (20:31)
[2020-06-24] MEDS: CHOLECALCIFEROL 1,000 UNIT TABLET GT SCH (20:31)
[2020-06-24 20:32] VITALS: BP 91/58
[2020-06-25] MEDS: VITAL AF 1.2 1,000 ML LIQUID GT SCH (02:11)
[2020-06-25] MEDS: IPRATROPIUM BROMIDE 0.5 MG/2.5 ML NEBU NEB SCH ×6 (03:02→23:16)
[2020-06-25] MEDS: ALBUTEROL SULFATE 2.5 MG/3 ML NEBU NEB SCH ×6 (03:02→23:16)
[2020-06-25] MEDS: BACLOFEN 10 MG TABLET GT SCH ×3 (05:24→22:00)
[2020-06-25] MEDS: BACLOFEN 20 MG TABLET GT SCH ×3 (05:24→22:00)
[2020-06-25] MEDS: OMEPRAZOLE 20 MG CAPSULE.DR GT SCH (05:25)
[2020-06-25] MEDS: MIDODRINE HCL 10 MG TABLET GT SCH ×3 (05:25→22:00)
[2020-06-25] MEDS: METOCLOPRAMIDE HCL 5 MG TABLET GT SCH ×3 (05:25→22:00)
[2020-06-25 07:36] VITALS: BP 125/78
[2020-06-25] MEDS: HYDROGEN PEROXIDE 3% 118 ML BOTTLE TP SCH ×2 (07:54→21:23)
[2020-06-25] MEDS: PHENYTOIN 100 MG/4 ML UDC GT SCH ×2 (08:17→20:33)
[2020-06-25] MEDS: DESMOPRESSIN 0.1 MG TABLET GT SCH (08:17)
[2020-06-25] MEDS: levETIRAcetam 500 MG/5 ML LIQUID UDC GT SCH ×2 (08:22→20:37)
[2020-06-25] MEDS: ACIDOPHILUS/BULGARICUS CHEW TAB GT SCH ×2 (08:22→20:33)
[2020-06-25] MEDS: COD LIVER OIL/ZINC OXIDE OINT 113 GM TUBE TOP SCH ×2 (08:24→20:37)
[2020-06-25] MEDS: NEOMY/BACITRAC/POLYMI OINT 28.35 GM TUBE TOP SCH (08:24)
[2020-06-25] MEDS: NEOMY/BACITRA/POLYMYXIN B OINT UD PACKET TP SCH ×2 (08:24→20:38)
[2020-06-25] MEDS: POTASSIUM CHLORIDE 40 MEQ/30 ML LIQUID UDC GT SCH (08:24)
[2020-06-25] MEDS: FUROSEMIDE 20 MG/2 ML GT SCH (08:24)
--- NOTE | 2020-06-25 13:49 | NUR ---
PT. SEEN AND EXAMINED BY EMMY Agustin AND WITH SHAYLEEO.
[2020-06-25 20:09] VITALS: BP 99/59
[2020-06-25 20:22] VITALS: BP 99/59
[2020-06-25] MEDS: FOLIC ACID 1 MG TABLET GT SCH (20:33)
[2020-06-25] MEDS: THIAMINE HCL 100 MG TABLET GT SCH (20:34)
[2020-06-25] MEDS: CHOLECALCIFEROL 1,000 UNIT TABLET GT SCH (20:37)
[2020-06-26] MEDS: ALBUTEROL SULFATE 2.5 MG/3 ML NEBU NEB SCH ×6 (03:18→23:17)
[2020-06-26] MEDS: IPRATROPIUM BROMIDE 0.5 MG/2.5 ML NEBU NEB SCH ×6 (03:18→23:17)
[2020-06-26] MEDS: BACLOFEN 10 MG TABLET GT SCH ×3 (06:49→22:14)
[2020-06-26] MEDS: BACLOFEN 20 MG TABLET GT SCH ×3 (06:49→22:14)
[2020-06-26] MEDS: VITAL AF 1.2 1,000 ML LIQUID GT SCH (06:50)
[2020-06-26] MEDS: MIDODRINE HCL 10 MG TABLET GT SCH ×3 (06:50→22:14)
[2020-06-26] MEDS: METOCLOPRAMIDE HCL 5 MG TABLET GT SCH ×3 (06:50→22:14)
[2020-06-26] MEDS: OMEPRAZOLE 20 MG CAPSULE.DR GT SCH (06:50)
[2020-06-26 07:28] VITALS: BP 94/57
[2020-06-26] MEDS: HYDROGEN PEROXIDE 3% 118 ML BOTTLE TP SCH ×2 (08:53→21:04)
[2020-06-26] MEDS: FUROSEMIDE 20 MG/2 ML GT SCH (09:00)
[2020-06-26] MEDS: COD LIVER OIL/ZINC OXIDE OINT 113 GM TUBE TOP SCH ×2 (09:00→20:37)
[2020-06-26] MEDS: ACIDOPHILUS/BULGARICUS CHEW TAB GT SCH ×2 (09:00→20:29)
[2020-06-26] MEDS: NEOMY/BACITRAC/POLYMI OINT 28.35 GM TUBE TOP SCH (09:00)
[2020-06-26] MEDS: DESMOPRESSIN 0.1 MG TABLET GT SCH (09:00)
[2020-06-26] MEDS: PHENYTOIN 100 MG/4 ML UDC GT SCH ×2 (09:00→20:29)
[2020-06-26] MEDS: POTASSIUM CHLORIDE 40 MEQ/30 ML LIQUID UDC GT SCH (09:00)
[2020-06-26] MEDS: NEOMY/BACITRA/POLYMYXIN B OINT UD PACKET TP SCH ×2 (09:00→20:37)
[2020-06-26] MEDS: levETIRAcetam 500 MG/5 ML LIQUID UDC GT SCH ×2 (09:00→20:35)
--- NOTE | 2020-06-26 13:56 | NUR ---
Seen and examined by Dr sahu ,no new orders.
--- NOTE | 2020-06-26 14:22 | NUR ---
Seen and examined by Marguerite Chicas,no new orders.
[2020-06-26 20:26] VITALS: BP 109/65
[2020-06-26] MEDS: FOLIC ACID 1 MG TABLET GT SCH (20:29)
[2020-06-26] MEDS: THIAMINE HCL 100 MG TABLET GT SCH (20:36)
[2020-06-26] MEDS: CHOLECALCIFEROL 1,000 UNIT TABLET GT SCH (20:37)
[2020-06-27] MEDS: ALBUTEROL SULFATE 2.5 MG/3 ML NEBU NEB SCH ×6 (03:30→23:29)
[2020-06-27] MEDS: IPRATROPIUM BROMIDE 0.5 MG/2.5 ML NEBU NEB SCH ×6 (03:30→23:29)
[2020-06-27] MEDS: BACLOFEN 10 MG TABLET GT SCH ×3 (05:16→22:09)
[2020-06-27] MEDS: BACLOFEN 20 MG TABLET GT SCH ×3 (05:16→22:09)
[2020-06-27] MEDS: OMEPRAZOLE 20 MG CAPSULE.DR GT SCH (05:17)
[2020-06-27] MEDS: MIDODRINE HCL 10 MG TABLET GT SCH ×3 (05:17→22:09)
[2020-06-27] MEDS: METOCLOPRAMIDE HCL 5 MG TABLET GT SCH ×3 (05:17→22:09)
[2020-06-27 07:36] VITALS: BP 100/59
[2020-06-27] MEDS: HYDROGEN PEROXIDE 3% 118 ML BOTTLE TP SCH ×2 (07:47→21:40)
[2020-06-27 08:05] LABS: BASOPHILS % (AUTO) 0.4 % (0.0-2.0); EOSINOPHILS # (AUTO) 0.3 K/uL (0.0-0.7); EOSINOPHILS % (AUTO) 5.3 % (0.0-7.0); HEMATOCRIT 27.9 % (31.2-41.9); HEMOGLOBIN 9.7 g/dL (10.9-14.3); LYMPHOCYTES # (AUTO) 1.3 K/uL (20.0-40.0); LYMPHOCYTES % (AUTO) 21.9 % (20.5-51.5); MEAN CORPUSCULAR HEMOGLOBIN 31.6 uug (24.7-32.8); MEAN CORPUSCULAR HGB CONC 35 g/dL (32.3-35.6); MEAN CORPUSCULAR VOLUME 91.2 fL (75.5-95.3); MONOCYTES # (AUTO) 0.4 K/uL (2.0-10.0); NEUTROPHILS % (AUTO) 66.4 % (38.5-71.5); PLATELET COUNT (AUTO) 210 K/uL (179-408); RED BLOOD CELL COUNT(AUTO) 3.06 MIL/uL (3.63-4.92); WHITE BLOOD COUNT (AUTO) 6.1 K/uL (3.8-11.8)
[2020-06-27 08:12] LABS: CARBON DIOXIDE 21 mmol/L (21-32); CHLORIDE 104 mmol/L (98-107); CREATININE 0.5 mg/dL (0.6-1.3); GLUCOSE 69 mg/dL (74-106); MAGNESIUM 1.6 mg/dL (1.8-2.4); PHOSPHOROUS 3.5 mg/dL (2.5-4.9); POTASSIUM 4.1 mmol/L (3.5-5.1); UREA NITROGEN, BLOOD 16 mg/dL (7-18)
[2020-06-27] MEDS: DESMOPRESSIN 0.1 MG TABLET GT SCH (09:00)
[2020-06-27] MEDS: NEOMY/BACITRA/POLYMYXIN B OINT UD PACKET TP SCH ×2 (09:00→20:21)
[2020-06-27] MEDS: POTASSIUM CHLORIDE 40 MEQ/30 ML LIQUID UDC GT SCH (09:00)
[2020-06-27] MEDS: COD LIVER OIL/ZINC OXIDE OINT 113 GM TUBE TOP SCH ×2 (09:00→20:21)
[2020-06-27] MEDS: FUROSEMIDE 20 MG/2 ML GT SCH (09:00)
[2020-06-27] MEDS: ACIDOPHILUS/BULGARICUS CHEW TAB GT SCH ×2 (09:00→20:19)
[2020-06-27] MEDS: levETIRAcetam 500 MG/5 ML LIQUID UDC GT SCH ×2 (09:00→20:19)
[2020-06-27] MEDS: NEOMY/BACITRAC/POLYMI OINT 28.35 GM TUBE TOP SCH (09:00)
[2020-06-27] MEDS: PHENYTOIN 100 MG/4 ML UDC GT SCH ×2 (09:00→21:00)
[2020-06-27] MEDS: VITAL AF 1.2 1,000 ML LIQUID GT SCH (11:05)
[2020-06-27 19:59] VITALS: BP 89/43
[2020-06-27] MEDS: FOLIC ACID 1 MG TABLET GT SCH (20:19)
[2020-06-27] MEDS: THIAMINE HCL 100 MG TABLET GT SCH (20:19)
[2020-06-27] MEDS: CHOLECALCIFEROL 1,000 UNIT TABLET GT SCH (20:20)
[2020-06-28] MEDS: ALBUTEROL SULFATE 2.5 MG/3 ML NEBU NEB SCH ×6 (03:20→23:30)
[2020-06-28] MEDS: IPRATROPIUM BROMIDE 0.5 MG/2.5 ML NEBU NEB SCH ×6 (03:20→23:30)
[2020-06-28] MEDS: BACLOFEN 10 MG TABLET GT SCH ×3 (05:19→22:35)
[2020-06-28] MEDS: BACLOFEN 20 MG TABLET GT SCH ×3 (05:19→22:35)
[2020-06-28] MEDS: MIDODRINE HCL 10 MG TABLET GT SCH ×3 (05:20→22:35)
[2020-06-28] MEDS: METOCLOPRAMIDE HCL 5 MG TABLET GT SCH ×3 (05:20→22:35)
[2020-06-28] MEDS: OMEPRAZOLE 20 MG CAPSULE.DR GT SCH (05:20)
[2020-06-28 07:22] VITALS: BP 100/57
[2020-06-28] MEDS: HYDROGEN PEROXIDE 3% 118 ML BOTTLE TP SCH ×2 (07:31→21:40)
[2020-06-28] MEDS: PHENYTOIN 100 MG/4 ML UDC GT SCH ×2 (08:03→20:30)
[2020-06-28] MEDS: DESMOPRESSIN 0.1 MG TABLET GT SCH (08:03)
[2020-06-28] MEDS: levETIRAcetam 500 MG/5 ML LIQUID UDC GT SCH ×2 (08:04→20:31)
[2020-06-28] MEDS: ACIDOPHILUS/BULGARICUS CHEW TAB GT SCH ×2 (08:04→20:30)
[2020-06-28] MEDS: FUROSEMIDE 20 MG/2 ML GT SCH (08:05)
[2020-06-28] MEDS: NEOMY/BACITRA/POLYMYXIN B OINT UD PACKET TP SCH ×2 (08:07→20:32)
[2020-06-28] MEDS: COD LIVER OIL/ZINC OXIDE OINT 113 GM TUBE TOP SCH ×2 (08:07→20:32)
[2020-06-28] MEDS: NEOMY/BACITRAC/POLYMI OINT 28.35 GM TUBE TOP SCH (08:07)
[2020-06-28] MEDS: POTASSIUM CHLORIDE 40 MEQ/30 ML LIQUID UDC GT SCH (08:10)
[2020-06-28] MEDS: VITAL AF 1.2 1,000 ML LIQUID GT SCH (10:36)
[2020-06-28 19:10] VITALS: BP 89/52
[2020-06-28 19:15] VITALS: BP 98/52
[2020-06-28] MEDS: FOLIC ACID 1 MG TABLET GT SCH (20:31)
[2020-06-28] MEDS: THIAMINE HCL 100 MG TABLET GT SCH (20:32)
[2020-06-28] MEDS: CHOLECALCIFEROL 1,000 UNIT TABLET GT SCH (20:32)
[2020-06-29] MEDS: IPRATROPIUM BROMIDE 0.5 MG/2.5 ML NEBU NEB SCH ×6 (03:43→23:07)
[2020-06-29] MEDS: ALBUTEROL SULFATE 2.5 MG/3 ML NEBU NEB SCH ×6 (03:43→23:07)
[2020-06-29] MEDS: METOCLOPRAMIDE HCL 5 MG TABLET GT SCH ×3 (05:11→21:30)
[2020-06-29] MEDS: BACLOFEN 20 MG TABLET GT SCH ×3 (05:11→21:29)
[2020-06-29] MEDS: MIDODRINE HCL 10 MG TABLET GT SCH ×3 (05:11→21:30)
[2020-06-29] MEDS: BACLOFEN 10 MG TABLET GT SCH ×3 (05:11→21:29)
[2020-06-29] MEDS: OMEPRAZOLE 20 MG CAPSULE.DR GT SCH (05:11)
[2020-06-29 07:28] VITALS: BP 95/51
[2020-06-29] MEDS: PHENYTOIN 100 MG/4 ML UDC GT SCH ×2 (08:24→21:28)
[2020-06-29] MEDS: POTASSIUM CHLORIDE 40 MEQ/30 ML LIQUID UDC GT SCH (08:24)
[2020-06-29] MEDS: levETIRAcetam 500 MG/5 ML LIQUID UDC GT SCH ×2 (08:24→21:28)
[2020-06-29] MEDS: NEOMY/BACITRA/POLYMYXIN B OINT UD PACKET TP SCH ×2 (08:24→21:29)
[2020-06-29] MEDS: NEOMY/BACITRAC/POLYMI OINT 28.35 GM TUBE TOP SCH (08:24)
[2020-06-29] MEDS: COD LIVER OIL/ZINC OXIDE OINT 113 GM TUBE TOP SCH ×2 (08:24→21:00)
[2020-06-29] MEDS: ACIDOPHILUS/BULGARICUS CHEW TAB GT SCH ×2 (08:24→21:28)
[2020-06-29] MEDS: FUROSEMIDE 20 MG/2 ML GT SCH (08:24)
[2020-06-29] MEDS: DESMOPRESSIN 0.1 MG TABLET GT SCH (08:24)
[2020-06-29] MEDS: VITAL AF 1.2 1,000 ML LIQUID GT SCH (08:29)
[2020-06-29] MEDS: HYDROGEN PEROXIDE 3% 118 ML BOTTLE TP SCH ×2 (09:31→21:39)
--- NOTE | 2020-06-29 10:50 | NUR ---
zoom provided for patient with mother.
[2020-06-29 19:45] VITALS: BP 103/68
[2020-06-29] MEDS: FOLIC ACID 1 MG TABLET GT SCH (21:28)
[2020-06-29] MEDS: CHOLECALCIFEROL 1,000 UNIT TABLET GT SCH (21:28)
[2020-06-29] MEDS: THIAMINE HCL 100 MG TABLET GT SCH (21:28)
[2020-06-30] MEDS: ALBUTEROL SULFATE 2.5 MG/3 ML NEBU NEB SCH ×6 (03:15→23:25)
[2020-06-30] MEDS: IPRATROPIUM BROMIDE 0.5 MG/2.5 ML NEBU NEB SCH ×6 (03:15→23:25)
[2020-06-30] MEDS: BACLOFEN 10 MG TABLET GT SCH ×3 (06:13→21:50)
[2020-06-30] MEDS: MIDODRINE HCL 10 MG TABLET GT SCH ×3 (06:14→21:50)
[2020-06-30] MEDS: OMEPRAZOLE 20 MG CAPSULE.DR GT SCH (06:14)
[2020-06-30] MEDS: METOCLOPRAMIDE HCL 5 MG TABLET GT SCH ×3 (06:14→21:50)
[2020-06-30] MEDS: BACLOFEN 20 MG TABLET GT SCH ×3 (06:14→21:50)
[2020-06-30] MEDS: VITAL AF 1.2 1,000 ML LIQUID GT SCH (07:04)
[2020-06-30] MEDS: POTASSIUM CHLORIDE 40 MEQ/30 ML LIQUID UDC GT SCH (08:11)
[2020-06-30] MEDS: PHENYTOIN 100 MG/4 ML UDC GT SCH ×2 (08:11→20:22)
[2020-06-30] MEDS: NEOMY/BACITRA/POLYMYXIN B OINT UD PACKET TP SCH ×2 (08:11→20:34)
[2020-06-30] MEDS: FUROSEMIDE 20 MG/2 ML GT SCH (08:11)
[2020-06-30] MEDS: levETIRAcetam 500 MG/5 ML LIQUID UDC GT SCH ×2 (08:11→20:34)
[2020-06-30] MEDS: DESMOPRESSIN 0.1 MG TABLET GT SCH (08:11)
[2020-06-30] MEDS: ACIDOPHILUS/BULGARICUS CHEW TAB GT SCH ×2 (08:11→20:32)
[2020-06-30] MEDS: COD LIVER OIL/ZINC OXIDE OINT 113 GM TUBE TOP SCH ×2 (08:11→20:34)
[2020-06-30 08:15] VITALS: BP 103/55
[2020-06-30] MEDS: HYDROGEN PEROXIDE 3% 118 ML BOTTLE TP SCH ×2 (09:40→19:53)
[2020-06-30] MEDS: BISACODYL 10 MG SUPP.RECT RC PRN (12:04)
[2020-06-30 19:56] VITALS: BP 94/54
[2020-06-30] MEDS: FOLIC ACID 1 MG TABLET GT SCH (20:33)
[2020-06-30] MEDS: THIAMINE HCL 100 MG TABLET GT SCH (20:34)
[2020-06-30] MEDS: CHOLECALCIFEROL 1,000 UNIT TABLET GT SCH (20:34)
[2020-07-01] MEDS: VITAL AF 1.2 1,000 ML LIQUID GT SCH (05:00)
[2020-07-01] MEDS: BACLOFEN 10 MG TABLET GT SCH ×3 (05:06→21:18)
[2020-07-01] MEDS: BACLOFEN 20 MG TABLET GT SCH ×3 (05:06→21:18)
[2020-07-01] MEDS: MIDODRINE HCL 10 MG TABLET GT SCH ×3 (05:07→21:19)
[2020-07-01] MEDS: METOCLOPRAMIDE HCL 5 MG TABLET GT SCH ×3 (05:07→21:19)
[2020-07-01] MEDS: OMEPRAZOLE 20 MG CAPSULE.DR GT SCH (05:07)
[2020-07-01] MEDS: IPRATROPIUM BROMIDE 0.5 MG/2.5 ML NEBU NEB SCH ×5 (07:23→23:19)
[2020-07-01] MEDS: ALBUTEROL SULFATE 2.5 MG/3 ML NEBU NEB SCH ×5 (07:23→23:20)
[2020-07-01 07:28] VITALS: BP 90/49
[2020-07-01] MEDS: NEOMY/BACITRA/POLYMYXIN B OINT UD PACKET TP SCH ×2 (08:13→21:18)
[2020-07-01] MEDS: POTASSIUM CHLORIDE 40 MEQ/30 ML LIQUID UDC GT SCH (08:13)
[2020-07-01] MEDS: ACIDOPHILUS/BULGARICUS CHEW TAB GT SCH ×2 (08:13→21:16)
[2020-07-01] MEDS: DESMOPRESSIN 0.1 MG TABLET GT SCH (08:13)
[2020-07-01] MEDS: PHENYTOIN 100 MG/4 ML UDC GT SCH ×2 (08:13→21:16)
[2020-07-01] MEDS: FUROSEMIDE 20 MG/2 ML GT SCH (08:13)
[2020-07-01] MEDS: levETIRAcetam 500 MG/5 ML LIQUID UDC GT SCH ×2 (08:13→21:16)
[2020-07-01] MEDS: COD LIVER OIL/ZINC OXIDE OINT 113 GM TUBE TOP SCH ×2 (08:13→21:18)
[2020-07-01 09:00] VITALS: BP 109/58
[2020-07-01] MEDS: HYDROGEN PEROXIDE 3% 118 ML BOTTLE TP SCH ×2 (09:00→21:12)
--- NOTE | 2020-07-01 18:59 | NUR ---
Covid results negatve,,family wants to be called only when is positive results.
[2020-07-01 20:07] VITALS: BP 109/61
[2020-07-01] MEDS: FOLIC ACID 1 MG TABLET GT SCH (21:16)
[2020-07-01] MEDS: THIAMINE HCL 100 MG TABLET GT SCH (21:17)
[2020-07-01] MEDS: CHOLECALCIFEROL 1,000 UNIT TABLET GT SCH (21:18)
--- NOTE | 2020-07-01 23:00 | NUR ---
[facility] reported rashes on patient, on assessment, noted with rashes on left and right groin, initiated in- house treatment with Desitin barrier cream also ordered Desitin to left and right buttocks due to patience incontinence for patient's skin protection and maintenance.
[2020-07-02] MEDS: COD LIVER OIL/ZINC OXIDE OINT 113 GM TUBE TOP SCH ×8 (02:15→21:23)
[2020-07-02] MEDS: ALBUTEROL SULFATE 2.5 MG/3 ML NEBU NEB SCH ×6 (03:13→23:26)
[2020-07-02] MEDS: IPRATROPIUM BROMIDE 0.5 MG/2.5 ML NEBU NEB SCH ×6 (03:13→23:26)
[2020-07-02] MEDS: BACLOFEN 10 MG TABLET GT SCH ×3 (05:15→21:24)
[2020-07-02] MEDS: MIDODRINE HCL 10 MG TABLET GT SCH ×3 (05:15→21:24)
[2020-07-02] MEDS: BACLOFEN 20 MG TABLET GT SCH ×3 (05:15→21:24)
[2020-07-02] MEDS: METOCLOPRAMIDE HCL 5 MG TABLET GT SCH ×3 (05:16→21:24)
[2020-07-02] MEDS: VITAL AF 1.2 1,000 ML LIQUID GT SCH (05:16)
[2020-07-02] MEDS: OMEPRAZOLE 20 MG CAPSULE.DR GT SCH (05:16)
[2020-07-02 07:28] VITALS: BP 89/55
[2020-07-02] MEDS: HYDROGEN PEROXIDE 3% 118 ML BOTTLE TP SCH ×2 (09:12→21:35)
[2020-07-02] MEDS: levETIRAcetam 500 MG/5 ML LIQUID UDC GT SCH ×2 (09:18→21:22)
[2020-07-02] MEDS: ACIDOPHILUS/BULGARICUS CHEW TAB GT SCH ×2 (09:18→21:21)
[2020-07-02] MEDS: FUROSEMIDE 20 MG/2 ML GT SCH (09:18)
[2020-07-02] MEDS: NEOMY/BACITRA/POLYMYXIN B OINT UD PACKET TP SCH ×2 (09:18→21:24)
[2020-07-02] MEDS: PHENYTOIN 100 MG/4 ML UDC GT SCH ×2 (09:18→21:21)
[2020-07-02] MEDS: POTASSIUM CHLORIDE 40 MEQ/30 ML LIQUID UDC GT SCH (09:18)
[2020-07-02] MEDS: DESMOPRESSIN 0.1 MG TABLET GT SCH (09:18)
[2020-07-02 20:00] VITALS: BP 103/58
[2020-07-02] MEDS: FOLIC ACID 1 MG TABLET GT SCH (21:22)
[2020-07-02] MEDS: CHOLECALCIFEROL 1,000 UNIT TABLET GT SCH (21:23)
[2020-07-02] MEDS: THIAMINE HCL 100 MG TABLET GT SCH (21:23)
[2020-07-03] MEDS: IPRATROPIUM BROMIDE 0.5 MG/2.5 ML NEBU NEB SCH ×6 (03:40→23:00)
[2020-07-03] MEDS: ALBUTEROL SULFATE 2.5 MG/3 ML NEBU NEB SCH ×6 (03:40→23:00)
[2020-07-03] MEDS: VITAL AF 1.2 1,000 ML LIQUID GT SCH (04:15)
[2020-07-03] MEDS: BACLOFEN 10 MG TABLET GT SCH ×3 (05:17→21:29)
[2020-07-03] MEDS: BACLOFEN 20 MG TABLET GT SCH ×3 (05:17→21:29)
[2020-07-03] MEDS: MIDODRINE HCL 10 MG TABLET GT SCH ×3 (05:18→21:29)
[2020-07-03] MEDS: OMEPRAZOLE 20 MG CAPSULE.DR GT SCH (05:18)
[2020-07-03] MEDS: METOCLOPRAMIDE HCL 5 MG TABLET GT SCH ×3 (05:19→21:29)
[2020-07-03 07:26] LABS: BASOPHILS % (AUTO) 0.1 % (0.0-2.0); EOSINOPHILS # (AUTO) 0.2 K/uL (0.0-0.7); EOSINOPHILS % (AUTO) 1.9 % (0.0-7.0); HEMOGLOBIN 8.3 g/dL (10.9-14.3); LYMPHOCYTES % (AUTO) 9.4 % (20.5-51.5); MEAN CORPUSCULAR HEMOGLOBIN 31.8 uug (24.7-32.8); MEAN CORPUSCULAR HGB CONC 35 g/dL (32.3-35.6); MEAN CORPUSCULAR VOLUME 91.4 fL (75.5-95.3); MONOCYTES # (AUTO) 0.4 K/uL (2.0-10.0); MONOCYTES % (AUTO) 3.6 % (0.0-11.0); NEUTROPHILS # (AUTO) 8.8 K/uL (1.8-8.9); PLATELET COUNT (AUTO) 151 K/uL (179-408); RED BLOOD CELL COUNT(AUTO) 2.63 MIL/uL (3.63-4.92); WHITE BLOOD COUNT (AUTO) 10.3 K/uL (3.8-11.8)
[2020-07-03 07:31] VITALS: BP 90/51
[2020-07-03] MEDS: HYDROGEN PEROXIDE 3% 118 ML BOTTLE TP SCH ×2 (07:40→21:00)
[2020-07-03 07:50] LABS: BILIRUBIN,TOTAL 0.2 mg/dL (0.2-1.0); CREATININE 0.6 mg/dL (0.6-1.3); POTASSIUM 4.2 mmol/L (3.5-5.1); TOTAL PROTEIN, SERUM 5.3 g/dL (6.4-8.2)
[2020-07-03] MEDS: PHENYTOIN 100 MG/4 ML UDC GT SCH ×2 (09:11→21:28)
[2020-07-03] MEDS: ACIDOPHILUS/BULGARICUS CHEW TAB GT SCH ×2 (09:11→21:28)
[2020-07-03] MEDS: levETIRAcetam 500 MG/5 ML LIQUID UDC GT SCH ×2 (09:11→21:28)
[2020-07-03] MEDS: FUROSEMIDE 20 MG/2 ML GT SCH (09:11)
[2020-07-03] MEDS: POTASSIUM CHLORIDE 40 MEQ/30 ML LIQUID UDC GT SCH (09:11)
[2020-07-03] MEDS: COD LIVER OIL/ZINC OXIDE OINT 113 GM TUBE TOP SCH ×6 (09:14→21:28)
[2020-07-03] MEDS: NEOMY/BACITRA/POLYMYXIN B OINT UD PACKET TP SCH ×2 (09:15→21:29)
[2020-07-03] MEDS: DESMOPRESSIN 0.1 MG TABLET GT SCH (09:16)
--- NOTE | 2020-07-03 13:00 | NUR ---
Seen and examined By Marguerite Chicas with new orders noted.
--- NOTE | 2020-07-03 16:32 | NUR ---
INTERDISCIPLINARY PLAN OF CARE CONFERENCE was held today. Patient's mother lives in [facility] and was not available to participate in the meeting. Dr. Wagner and the Interdisciplinary team reviewed the current plan of care in detail. RN reported on the patient's medical condition. See RN IDT conference notes. Dietary discussed weight and intervention of adjusting feeding and monitoring weight on a weekly basis. No major changes in patient's condition were reported by RN or by the other disciplines. See also all other disciplines IDT notes and physician's progress notes for additional details.
[2020-07-03 20:00] VITALS: BP 108/71
[2020-07-03] MEDS: CHOLECALCIFEROL 1,000 UNIT TABLET GT SCH (21:28)
[2020-07-03] MEDS: THIAMINE HCL 100 MG TABLET GT SCH (21:28)
[2020-07-03] MEDS: FOLIC ACID 1 MG TABLET GT SCH (21:28)
[2020-07-04] MEDS: IPRATROPIUM BROMIDE 0.5 MG/2.5 ML NEBU NEB SCH ×6 (03:35→23:15)
[2020-07-04] MEDS: ALBUTEROL SULFATE 2.5 MG/3 ML NEBU NEB SCH ×6 (03:35→23:15)
[2020-07-04] MEDS: VITAL AF 1.2 1,000 ML LIQUID GT SCH (04:00)
[2020-07-04] MEDS: BACLOFEN 10 MG TABLET GT SCH ×3 (05:35→21:38)
[2020-07-04] MEDS: BACLOFEN 20 MG TABLET GT SCH ×3 (05:35→21:38)
[2020-07-04] MEDS: MIDODRINE HCL 10 MG TABLET GT SCH ×3 (05:36→21:39)
[2020-07-04] MEDS: METOCLOPRAMIDE HCL 5 MG TABLET GT SCH ×3 (05:36→21:39)
[2020-07-04] MEDS: OMEPRAZOLE 20 MG CAPSULE.DR GT SCH (05:36)
[2020-07-04 07:34] VITALS: BP 107/63
[2020-07-04] MEDS: FUROSEMIDE 20 MG/2 ML GT SCH (09:00)
[2020-07-04] MEDS: DESMOPRESSIN 0.1 MG TABLET GT SCH (09:00)
[2020-07-04] MEDS: PHENYTOIN 100 MG/4 ML UDC GT SCH ×2 (09:00→21:37)
[2020-07-04] MEDS: HYDROGEN PEROXIDE 3% 118 ML BOTTLE TP SCH ×2 (09:34→21:25)
[2020-07-04] MEDS: ACIDOPHILUS/BULGARICUS CHEW TAB GT SCH ×2 (09:52→21:37)
[2020-07-04] MEDS: levETIRAcetam 500 MG/5 ML LIQUID UDC GT SCH ×2 (09:53→21:37)
[2020-07-04] MEDS: POTASSIUM CHLORIDE 40 MEQ/30 ML LIQUID UDC GT SCH (09:57)
[2020-07-04] MEDS: COD LIVER OIL/ZINC OXIDE OINT 113 GM TUBE TOP SCH ×6 (09:58→21:38)
[2020-07-04] MEDS: NEOMY/BACITRA/POLYMYXIN B OINT UD PACKET TP SCH ×2 (09:58→21:38)
[2020-07-04 20:00] VITALS: BP 108/65
[2020-07-04] MEDS: CHOLECALCIFEROL 1,000 UNIT TABLET GT SCH (21:37)
[2020-07-04] MEDS: THIAMINE HCL 100 MG TABLET GT SCH (21:37)
[2020-07-04] MEDS: FOLIC ACID 1 MG TABLET GT SCH (21:37)
[2020-07-05] MEDS: ALBUTEROL SULFATE 2.5 MG/3 ML NEBU NEB SCH ×6 (03:19→22:30)
[2020-07-05] MEDS: IPRATROPIUM BROMIDE 0.5 MG/2.5 ML NEBU NEB SCH ×6 (03:19→22:30)
[2020-07-05] MEDS: BACLOFEN 20 MG TABLET GT SCH ×3 (05:24→22:13)
[2020-07-05] MEDS: BACLOFEN 10 MG TABLET GT SCH ×3 (05:24→22:13)
[2020-07-05] MEDS: MIDODRINE HCL 10 MG TABLET GT SCH ×3 (05:25→22:13)
[2020-07-05] MEDS: METOCLOPRAMIDE HCL 5 MG TABLET GT SCH ×3 (05:25→22:13)
[2020-07-05] MEDS: OMEPRAZOLE 20 MG CAPSULE.DR GT SCH (05:25)
[2020-07-05 07:53] VITALS: BP 107/59
[2020-07-05] MEDS: HYDROGEN PEROXIDE 3% 118 ML BOTTLE TP SCH ×2 (09:00→21:37)
[2020-07-05] MEDS: DESMOPRESSIN 0.1 MG TABLET GT SCH (09:20)
[2020-07-05] MEDS: POTASSIUM CHLORIDE 40 MEQ/30 ML LIQUID UDC GT SCH (09:20)
[2020-07-05] MEDS: FUROSEMIDE 20 MG/2 ML GT SCH (09:20)
[2020-07-05] MEDS: levETIRAcetam 500 MG/5 ML LIQUID UDC GT SCH ×2 (09:20→20:42)
[2020-07-05] MEDS: PHENYTOIN 100 MG/4 ML UDC GT SCH ×2 (09:20→20:41)
[2020-07-05] MEDS: ACIDOPHILUS/BULGARICUS CHEW TAB GT SCH ×2 (09:20→20:41)
[2020-07-05] MEDS: COD LIVER OIL/ZINC OXIDE OINT 113 GM TUBE TOP SCH ×6 (09:21→20:43)
[2020-07-05] MEDS: NEOMY/BACITRA/POLYMYXIN B OINT UD PACKET TP SCH ×2 (09:21→20:43)
--- NOTE | 2020-07-05 12:49 | NUR ---
Spoke with Pt's mother Anamaria Marrero. Verbal consent given by Anamaria Marrero for patient to receive COVID 19 Vaccine.
[2020-07-05 19:10] VITALS: BP 108/67
[2020-07-05] MEDS: FOLIC ACID 1 MG TABLET GT SCH (20:41)
[2020-07-05] MEDS: THIAMINE HCL 100 MG TABLET GT SCH (20:42)
[2020-07-05] MEDS: CHOLECALCIFEROL 1,000 UNIT TABLET GT SCH (20:43)
--- NOTE | 2020-07-06 | NUR ---
nova guzman plugged and reinserted with #20/10 ml per md order. Addendum: 07/06/20 at 0603 by MAHOGANY KING LVN Amended: Links added.
[2020-07-06] MEDS: ALBUTEROL SULFATE 2.5 MG/3 ML NEBU NEB SCH ×6 (02:30→22:30)
[2020-07-06] MEDS: IPRATROPIUM BROMIDE 0.5 MG/2.5 ML NEBU NEB SCH ×6 (02:30→22:30)
[2020-07-06] MEDS: BACLOFEN 20 MG TABLET GT SCH ×3 (05:05→22:14)
[2020-07-06] MEDS: OMEPRAZOLE 20 MG CAPSULE.DR GT SCH (05:05)
[2020-07-06] MEDS: MIDODRINE HCL 10 MG TABLET GT SCH ×3 (05:05→22:00)
[2020-07-06] MEDS: METOCLOPRAMIDE HCL 5 MG TABLET GT SCH ×3 (05:05→22:14)
[2020-07-06] MEDS: BACLOFEN 10 MG TABLET GT SCH ×3 (05:05→22:14)
[2020-07-06 08:10] VITALS: BP 128/68
[2020-07-06] MEDS: PHENYTOIN 100 MG/4 ML UDC GT SCH ×2 (08:45→20:58)
[2020-07-06] MEDS: POTASSIUM CHLORIDE 40 MEQ/30 ML LIQUID UDC GT SCH (08:45)
[2020-07-06] MEDS: DESMOPRESSIN 0.1 MG TABLET GT SCH (08:45)
[2020-07-06] MEDS: ACIDOPHILUS/BULGARICUS CHEW TAB GT SCH ×2 (08:45→20:59)
[2020-07-06] MEDS: COD LIVER OIL/ZINC OXIDE OINT 113 GM TUBE TOP SCH ×6 (08:45→20:59)
[2020-07-06] MEDS: levETIRAcetam 500 MG/5 ML LIQUID UDC GT SCH ×2 (08:45→20:59)
[2020-07-06] MEDS: FUROSEMIDE 20 MG/2 ML GT SCH (08:45)
[2020-07-06] MEDS: NEOMY/BACITRA/POLYMYXIN B OINT UD PACKET TP SCH ×2 (08:46→20:59)
[2020-07-06 08:53] LABS: CREATININE 0.7 mg/dL (0.6-1.3); MAGNESIUM 1.8 mg/dL (1.8-2.4); PHOSPHOROUS 4.4 mg/dL (2.5-4.9); POTASSIUM 3.4 mmol/L (3.5-5.1)
[2020-07-06 08:54] LABS: BASOPHILS % (AUTO) 0.5 % (0.0-2.0); EOSINOPHILS # (AUTO) 0.3 K/uL (0.0-0.7); EOSINOPHILS % (AUTO) 5.3 % (0.0-7.0); HEMATOCRIT 25.6 % (31.2-41.9); HEMOGLOBIN 8.8 g/dL (10.9-14.3); LYMPHOCYTES # (AUTO) 2.1 K/uL (20.0-40.0); LYMPHOCYTES % (AUTO) 40.5 % (20.5-51.5); MEAN CORPUSCULAR HEMOGLOBIN 31.9 uug (24.7-32.8); MEAN CORPUSCULAR HGB CONC 35 g/dL (32.3-35.6); MEAN CORPUSCULAR VOLUME 92.3 fL (75.5-95.3); MONOCYTES # (AUTO) 0.4 K/uL (2.0-10.0); MONOCYTES % (AUTO) 8.2 % (0.0-11.0); NEUTROPHILS # (AUTO) 2.3 K/uL (1.8-8.9); NEUTROPHILS % (AUTO) 45.5 % (38.5-71.5); PLATELET COUNT (AUTO) 231 K/uL (179-408); RED BLOOD CELL COUNT(AUTO) 2.77 MIL/uL (3.63-4.92); WHITE BLOOD COUNT (AUTO) 5.1 K/uL (3.8-11.8)
[2020-07-06] MEDS: HYDROGEN PEROXIDE 3% 118 ML BOTTLE TP SCH ×2 (09:00→21:35)
[2020-07-06] MEDS: CHOLECALCIFEROL 1,000 UNIT TABLET GT SCH (20:59)
[2020-07-06] MEDS: THIAMINE HCL 100 MG TABLET GT SCH (20:59)
[2020-07-06] MEDS: FOLIC ACID 1 MG TABLET GT SCH (20:59)
[2020-07-07 01:59] VITALS: BP 126/74
[2020-07-07] MEDS: IPRATROPIUM BROMIDE 0.5 MG/2.5 ML NEBU NEB SCH ×6 (02:30→22:30)
[2020-07-07] MEDS: ALBUTEROL SULFATE 2.5 MG/3 ML NEBU NEB SCH ×6 (02:30→22:30)
[2020-07-07] MEDS: BACLOFEN 20 MG TABLET GT SCH ×3 (05:36→21:01)
[2020-07-07] MEDS: BACLOFEN 10 MG TABLET GT SCH ×3 (05:36→21:01)
[2020-07-07] MEDS: METOCLOPRAMIDE HCL 5 MG TABLET GT SCH ×3 (05:36→21:01)
[2020-07-07] MEDS: MIDODRINE HCL 10 MG TABLET GT SCH ×3 (05:36→21:01)
[2020-07-07] MEDS: OMEPRAZOLE 20 MG CAPSULE.DR GT SCH (05:36)
[2020-07-07] MEDS: HYDROGEN PEROXIDE 3% 118 ML BOTTLE TP SCH ×2 (07:40→21:11)
[2020-07-07 08:06] VITALS: BP 126/60
[2020-07-07] MEDS: DESMOPRESSIN 0.1 MG TABLET GT SCH (08:59)
[2020-07-07] MEDS: levETIRAcetam 500 MG/5 ML LIQUID UDC GT SCH ×2 (09:00→21:00)
[2020-07-07] MEDS: PHENYTOIN 100 MG/4 ML UDC GT SCH ×2 (09:00→21:00)
[2020-07-07] MEDS: ACIDOPHILUS/BULGARICUS CHEW TAB GT SCH ×2 (09:00→21:00)
[2020-07-07] MEDS: POTASSIUM CHLORIDE 40 MEQ/30 ML LIQUID UDC GT SCH (09:01)
[2020-07-07] MEDS: NEOMY/BACITRA/POLYMYXIN B OINT UD PACKET TP SCH ×2 (09:01→21:01)
[2020-07-07] MEDS: FUROSEMIDE 20 MG/2 ML GT SCH (09:01)
[2020-07-07] MEDS: COD LIVER OIL/ZINC OXIDE OINT 113 GM TUBE TOP SCH ×6 (09:01→21:01)
[2020-07-07] MEDS: VITAL AF 1.2 1,000 ML LIQUID GT SCH (11:35)
--- NOTE | 2020-07-07 13:00 | NUR ---
SEEN BY DR. WORTHINGTON AND WITH NEW ORDERS CARRIED OUT.
[2020-07-07 19:10] VITALS: BP 103/60
[2020-07-07] MEDS: FOLIC ACID 1 MG TABLET GT SCH (21:00)
[2020-07-07] MEDS: THIAMINE HCL 100 MG TABLET GT SCH (21:01)
[2020-07-07] MEDS: CHOLECALCIFEROL 1,000 UNIT TABLET GT SCH (21:01)
[2020-07-08] MEDS: IPRATROPIUM BROMIDE 0.5 MG/2.5 ML NEBU NEB SCH ×6 (02:30→22:30)
[2020-07-08] MEDS: ALBUTEROL SULFATE 2.5 MG/3 ML NEBU NEB SCH ×6 (02:30→22:30)
--- NOTE | 2020-07-08 02:35 | NUR ---
Nima from the Lab called RE: Patient's covid 19 result is negative.
[2020-07-08] MEDS: BACLOFEN 20 MG TABLET GT SCH ×3 (05:08→21:10)
[2020-07-08] MEDS: BACLOFEN 10 MG TABLET GT SCH ×3 (05:08→21:10)
[2020-07-08] MEDS: OMEPRAZOLE 20 MG CAPSULE.DR GT SCH (05:09)
[2020-07-08] MEDS: MIDODRINE HCL 10 MG TABLET GT SCH ×3 (05:09→21:10)
[2020-07-08] MEDS: METOCLOPRAMIDE HCL 5 MG TABLET GT SCH ×3 (05:11→21:10)
[2020-07-08 07:38] VITALS: BP 110/65
[2020-07-08] MEDS: HYDROGEN PEROXIDE 3% 118 ML BOTTLE TP SCH ×2 (07:43→21:36)
[2020-07-08] MEDS: POTASSIUM CHLORIDE 40 MEQ/30 ML LIQUID UDC GT SCH (09:23)
[2020-07-08] MEDS: PHENYTOIN 100 MG/4 ML UDC GT SCH ×2 (09:23→21:09)
[2020-07-08] MEDS: DESMOPRESSIN 0.1 MG TABLET GT SCH (09:23)
[2020-07-08] MEDS: levETIRAcetam 500 MG/5 ML LIQUID UDC GT SCH ×2 (09:23→21:09)
[2020-07-08] MEDS: FUROSEMIDE 20 MG/2 ML GT SCH (09:23)
[2020-07-08] MEDS: ACIDOPHILUS/BULGARICUS CHEW TAB GT SCH ×2 (09:23→21:09)
[2020-07-08] MEDS: NEOMY/BACITRA/POLYMYXIN B OINT UD PACKET TP SCH ×2 (09:24→21:10)
[2020-07-08] MEDS: COD LIVER OIL/ZINC OXIDE OINT 113 GM TUBE TOP SCH ×6 (09:24→21:10)
--- NOTE | 2020-07-08 12:00 | NUR ---
ELVA WAS CALLED AND AWARE WITH A MESSAGE THAT PT. WAS NEGATIVE FOR COVID 19 TEST FROM 07/05/20.
[2020-07-08 20:02] VITALS: BP 100/65
[2020-07-08] MEDS: CHOLECALCIFEROL 1,000 UNIT TABLET GT SCH (21:09)
[2020-07-08] MEDS: THIAMINE HCL 100 MG TABLET GT SCH (21:09)
[2020-07-08] MEDS: FOLIC ACID 1 MG TABLET GT SCH (21:09)
[2020-07-09] MEDS: ALBUTEROL SULFATE 2.5 MG/3 ML NEBU NEB SCH ×6 (02:30→23:19)
[2020-07-09] MEDS: IPRATROPIUM BROMIDE 0.5 MG/2.5 ML NEBU NEB SCH ×6 (02:30→23:19)
[2020-07-09] MEDS: BACLOFEN 10 MG TABLET GT SCH ×3 (05:51→21:01)
[2020-07-09] MEDS: BACLOFEN 20 MG TABLET GT SCH ×3 (05:51→21:01)
[2020-07-09] MEDS: METOCLOPRAMIDE HCL 5 MG TABLET GT SCH ×3 (05:52→21:01)
[2020-07-09] MEDS: MIDODRINE HCL 10 MG TABLET GT SCH ×3 (05:52→21:01)
[2020-07-09] MEDS: OMEPRAZOLE 20 MG CAPSULE.DR GT SCH (05:52)
[2020-07-09 07:13] VITALS: BP 106/62
[2020-07-09 07:51] VITALS: BP 97/56
[2020-07-09] MEDS: DESMOPRESSIN 0.1 MG TABLET GT SCH (08:25)
[2020-07-09] MEDS: COD LIVER OIL/ZINC OXIDE OINT 113 GM TUBE TOP SCH ×6 (08:26→20:50)
[2020-07-09] MEDS: ACIDOPHILUS/BULGARICUS CHEW TAB GT SCH ×2 (08:26→20:49)
[2020-07-09] MEDS: FUROSEMIDE 20 MG/2 ML GT SCH (08:26)
[2020-07-09] MEDS: levETIRAcetam 500 MG/5 ML LIQUID UDC GT SCH ×2 (08:26→20:49)
[2020-07-09] MEDS: POTASSIUM CHLORIDE 40 MEQ/30 ML LIQUID UDC GT SCH (08:26)
[2020-07-09] MEDS: PHENYTOIN 100 MG/4 ML UDC GT SCH ×2 (08:26→20:49)
[2020-07-09] MEDS: NEOMY/BACITRA/POLYMYXIN B OINT UD PACKET TP SCH ×2 (09:00→20:50)
[2020-07-09] MEDS: HYDROGEN PEROXIDE 3% 118 ML BOTTLE TP SCH ×2 (09:58→21:25)
--- NOTE | 2020-07-09 13:03 | NUR ---
SEEN BY EMMY Agustin AND WITH NNO.
[2020-07-09] MEDS: THIAMINE HCL 100 MG TABLET GT SCH (20:49)
[2020-07-09] MEDS: CHOLECALCIFEROL 1,000 UNIT TABLET GT SCH (20:49)
[2020-07-09] MEDS: FOLIC ACID 1 MG TABLET GT SCH (20:49)
[2020-07-09 20:52] VITALS: BP 88/43
[2020-07-10] MEDS: IPRATROPIUM BROMIDE 0.5 MG/2.5 ML NEBU NEB SCH ×6 (03:15→22:30)
[2020-07-10] MEDS: ALBUTEROL SULFATE 2.5 MG/3 ML NEBU NEB SCH ×6 (03:15→22:30)
[2020-07-10] MEDS: BACLOFEN 10 MG TABLET GT SCH ×3 (06:32→22:00)
[2020-07-10] MEDS: BACLOFEN 20 MG TABLET GT SCH ×3 (06:32→22:00)
[2020-07-10] MEDS: METOCLOPRAMIDE HCL 5 MG TABLET GT SCH ×3 (06:32→22:00)
[2020-07-10] MEDS: MIDODRINE HCL 10 MG TABLET GT SCH ×3 (06:32→22:00)
[2020-07-10] MEDS: OMEPRAZOLE 20 MG CAPSULE.DR GT SCH (06:32)
[2020-07-10] MEDS: HYDROGEN PEROXIDE 3% 118 ML BOTTLE TP SCH ×2 (07:26→21:48)
[2020-07-10 07:48] LABS: BASOPHILS % (AUTO) 0.3 % (0.0-2.0); EOSINOPHILS # (AUTO) 0.4 K/uL (0.0-0.7); EOSINOPHILS % (AUTO) 3.8 % (0.0-7.0); HEMATOCRIT 26.6 % (31.2-41.9); HEMOGLOBIN 9.3 g/dL (10.9-14.3); LYMPHOCYTES # (AUTO) 1.6 K/uL (20.0-40.0); LYMPHOCYTES % (AUTO) 17.2 % (20.5-51.5); MEAN CORPUSCULAR HEMOGLOBIN 32.2 uug (24.7-32.8); MEAN CORPUSCULAR HGB CONC 35 g/dL (32.3-35.6); MEAN CORPUSCULAR VOLUME 91.7 fL (75.5-95.3); MONOCYTES # (AUTO) 0.4 K/uL (2.0-10.0); MONOCYTES % (AUTO) 4.5 % (0.0-11.0); NEUTROPHILS # (AUTO) 6.8 K/uL (1.8-8.9); NEUTROPHILS % (AUTO) 74.2 % (38.5-71.5); PLATELET COUNT (AUTO) 247 K/uL (179-408); WHITE BLOOD COUNT (AUTO) 9.2 K/uL (3.8-11.8)
[2020-07-10 07:53] VITALS: BP 92/51
[2020-07-10 08:10] LABS: CREATININE 0.6 mg/dL (0.6-1.3); MAGNESIUM 1.6 mg/dL (1.8-2.4); PHOSPHOROUS 3.6 mg/dL (2.5-4.9); POTASSIUM 4.2 mmol/L (3.5-5.1)
[2020-07-10] MEDS: DESMOPRESSIN 0.1 MG TABLET GT SCH (09:03)
[2020-07-10] MEDS: ACIDOPHILUS/BULGARICUS CHEW TAB GT SCH ×2 (09:03→21:59)
[2020-07-10] MEDS: PHENYTOIN 100 MG/4 ML UDC GT SCH ×2 (09:03→21:59)
[2020-07-10] MEDS: levETIRAcetam 500 MG/5 ML LIQUID UDC GT SCH ×2 (09:03→21:59)
[2020-07-10] MEDS: FUROSEMIDE 20 MG/2 ML GT SCH (09:04)
[2020-07-10] MEDS: POTASSIUM CHLORIDE 40 MEQ/30 ML LIQUID UDC GT SCH (09:04)
[2020-07-10] MEDS: NEOMY/BACITRA/POLYMYXIN B OINT UD PACKET TP SCH ×2 (09:04→21:00)
[2020-07-10] MEDS: COD LIVER OIL/ZINC OXIDE OINT 113 GM TUBE TOP SCH ×6 (09:04→21:59)
[2020-07-10] MEDS: ACETAMINOPHEN 650 MG/20.3 ML LIQUID UDC GT PRN (09:06)
--- NOTE | 2020-07-10 13:00 | NUR ---
New orders for magnesium 400 mg via GT x 1 dose ordered for mg 1.6.
--- NOTE | 2020-07-10 19:05 | NUR ---
Spoke to Yuri pharmacist regarding the Iv orders for mg from DR Meyer,will verified with him ,pt already received 400 mg via GT.
--- NOTE | 2020-07-10 19:45 | NUR ---
I called Yuri from [facility] re: magnesium IV order, Po stated, that he called Dr. Meyer but he never called back and he wants me to follow-up with Dr. Meyer. I called Dr. Meyer and awaiting for him to call back.
--- NOTE | 2020-07-10 19:51 | NUR ---
New orders to Give COVID vaccine x 1 carried out.
--- NOTE | 2020-07-10 20:05 | NUR ---
New order for Magnesium 3 grams IV noted from Dr. Damion Meyer d/t magnesium level of 1.6.
[2020-07-10 20:34] VITALS: BP 98/55
--- NOTE | 2020-07-10 21:00 | NUR ---
Started Magnesium 1 gram IVPB every hour X 3 doses for hypomagnesemia( M.6), no adverse reactions noted, afebrile, IV site on right hand is intact and no infiltration noted, will monitor patient closely.
[2020-07-10] MEDS: MAGNESIUM SULFATE/D5W 100 ML IV SCH ×3 (21:21→22:40)
[2020-07-10] MEDS: CHOLECALCIFEROL 1,000 UNIT TABLET GT SCH (21:59)
[2020-07-10] MEDS: THIAMINE HCL 100 MG TABLET GT SCH (21:59)
[2020-07-10] MEDS: FOLIC ACID 1 MG TABLET GT SCH (21:59)
[2020-07-11] MEDS: IPRATROPIUM BROMIDE 0.5 MG/2.5 ML NEBU NEB SCH ×6 (02:30→22:30)
[2020-07-11] MEDS: ALBUTEROL SULFATE 2.5 MG/3 ML NEBU NEB SCH ×6 (02:30→22:30)
[2020-07-11] MEDS: BACLOFEN 20 MG TABLET GT SCH ×3 (05:53→21:51)
[2020-07-11] MEDS: BACLOFEN 10 MG TABLET GT SCH ×3 (05:53→21:51)
[2020-07-11] MEDS: MIDODRINE HCL 10 MG TABLET GT SCH ×3 (05:54→21:51)
[2020-07-11] MEDS: OMEPRAZOLE 20 MG CAPSULE.DR GT SCH (05:54)
[2020-07-11] MEDS: METOCLOPRAMIDE HCL 5 MG TABLET GT SCH ×3 (05:54→21:52)
[2020-07-11] MEDS: HYDROGEN PEROXIDE 3% 118 ML BOTTLE TP SCH ×2 (07:40→21:29)
[2020-07-11 07:52] VITALS: BP 100/50
[2020-07-11] MEDS: DESMOPRESSIN 0.1 MG TABLET GT SCH (09:52)
[2020-07-11] MEDS: PHENYTOIN 100 MG/4 ML UDC GT SCH ×2 (09:53→21:47)
[2020-07-11] MEDS: ACIDOPHILUS/BULGARICUS CHEW TAB GT SCH ×2 (09:53→21:47)
[2020-07-11] MEDS: levETIRAcetam 500 MG/5 ML LIQUID UDC GT SCH ×2 (09:55→21:49)
[2020-07-11] MEDS: FUROSEMIDE 20 MG/2 ML GT SCH (09:56)
[2020-07-11] MEDS: NEOMY/BACITRA/POLYMYXIN B OINT UD PACKET TP SCH ×2 (09:58→21:51)
[2020-07-11] MEDS: COD LIVER OIL/ZINC OXIDE OINT 113 GM TUBE TOP SCH ×6 (09:58→21:51)
[2020-07-11] MEDS: POTASSIUM CHLORIDE 40 MEQ/30 ML LIQUID UDC GT SCH (09:58)
--- NOTE | 2020-07-11 18:12 | NUR ---
MESSAGE LEFT TO ELVA RE: COVID 19 VACCINE GIVEN BY MR. MARMOLEJO ON HER RT. DELTOID AND WITH NO A/R ,WILL CONT. TO MONITOR.
--- NOTE | 2020-07-11 19:30 | NUR ---
new orders to decrease tube feeding to 40 ml/hr x 20 hours,pt gain 10 pounds this month.
[2020-07-11 20:00] VITALS: BP 98/50
[2020-07-11] MEDS: FOLIC ACID 1 MG TABLET GT SCH (21:47)
[2020-07-11] MEDS: CHOLECALCIFEROL 1,000 UNIT TABLET GT SCH (21:50)
[2020-07-11] MEDS: THIAMINE HCL 100 MG TABLET GT SCH (21:58)
[~2020-07-12] VITALS: Ht 162.6 cm; Wt 69.4 kg
[2020-07-12] MEDS: IPRATROPIUM BROMIDE 0.5 MG/2.5 ML NEBU NEB SCH ×6 (02:32→23:27)
[2020-07-12] MEDS: ALBUTEROL SULFATE 2.5 MG/3 ML NEBU NEB SCH ×6 (02:32→23:27)
[2020-07-12 05:09] VITALS: BP 99/53
[2020-07-12] MEDS: OMEPRAZOLE 20 MG CAPSULE.DR GT SCH (05:10)
[2020-07-12] MEDS: MIDODRINE HCL 10 MG TABLET GT SCH ×3 (05:10→22:31)
[2020-07-12] MEDS: BACLOFEN 10 MG TABLET GT SCH ×3 (05:10→22:30)
[2020-07-12] MEDS: BACLOFEN 20 MG TABLET GT SCH ×3 (05:10→22:30)
[2020-07-12] MEDS: METOCLOPRAMIDE HCL 5 MG TABLET GT SCH ×3 (05:10→22:31)
[2020-07-12 07:57] VITALS: BP 120/80
[2020-07-12] MEDS: DESMOPRESSIN 0.1 MG TABLET GT SCH (08:28)
[2020-07-12] MEDS: ACIDOPHILUS/BULGARICUS CHEW TAB GT SCH ×2 (08:28→21:00)
[2020-07-12] MEDS: PHENYTOIN 100 MG/4 ML UDC GT SCH ×2 (08:28→21:00)
[2020-07-12] MEDS: levETIRAcetam 500 MG/5 ML LIQUID UDC GT SCH ×2 (08:28→21:00)
[2020-07-12] MEDS: COD LIVER OIL/ZINC OXIDE OINT 113 GM TUBE TOP SCH ×6 (08:29→21:00)
[2020-07-12] MEDS: POTASSIUM CHLORIDE 40 MEQ/30 ML LIQUID UDC GT SCH (08:29)
[2020-07-12] MEDS: NEOMY/BACITRA/POLYMYXIN B OINT UD PACKET TP SCH ×2 (08:29→21:00)
[2020-07-12] MEDS: FUROSEMIDE 20 MG/2 ML GT SCH (08:29)
[2020-07-12] MEDS: HYDROGEN PEROXIDE 3% 118 ML BOTTLE TP SCH ×2 (09:24→21:02)
[2020-07-12] MEDS: VITAL AF 1.2 1,000 ML LIQUID GT PRN (17:05)
--- NOTE | 2020-07-12 18:32 | NUR ---
No a/r noted from covid19 vaccine.
[2020-07-12] MEDS: THIAMINE HCL 100 MG TABLET GT SCH (21:00)
[2020-07-12] MEDS: FOLIC ACID 1 MG TABLET GT SCH (21:00)
[2020-07-12] MEDS: CHOLECALCIFEROL 1,000 UNIT TABLET GT SCH (21:00)
[2020-07-12 23:03] VITALS: BP 95/52
[~2020-07-12 23:59] MED LIST changes: +ACETAMINOPHEN 325 MG TABLET-SA PATIENTS-FEVER ONLY PO PRN; +ACETAMINOPHEN 325 MG TABLET-SA PATIENTS-PAIN ONLY PO PRN; +ACETAMINOPHEN 650 MG/20.3 ML LIQUID UDC GT PRN; +ALBUTEROL SULFATE 2.5 MG/3 ML NEBU NEB PRN; +COD LIVER OIL/ZINC OXIDE OINT 113 GM TUBE TOP SCH; +COD LIVER OIL/ZINC OXIDE OINT 113 GM TUBE TP PRN; +COVID-19 VACC,MRNA(MODERNA)/PF 100 MCG/0.5 ML VIAL IM ONE; +DIATR MEGLU/DIATRIZOATE SODIUM 30 ML BOTTLE PO ONE; +HYDROGEN PEROXIDE 3% 118 ML BOTTLE TP PRN; +INFLUENZA VACCINE 2020-2021 0.5 ML DISP.SYRIN IM ONE; +IPRATROPIUM BROMIDE 0.5 MG/2.5 ML NEBU NEB PRN; +LORAZEPAM 2 MG/1 ML VIAL IV PRN; +MAGNESIUM OXIDE 400 MG TABLET GT ONE; +MAGNESIUM OXIDE 400 MG TABLET PO ONE; +NEOMY/BACITRAC/POLYMI OINT 28.35 GM TUBE TOP ONE; +NEOMY/BACITRAC/POLYMI OINT 28.35 GM TUBE TOP SCH; +NYSTATIN CREAM 30 GM TUBE TP SCH; +NYSTATIN POWDER 15 GM BOTTLE TP PRN; -OMEP20CA11 GT; +OMEP20CA15 GT; +PHENYTOIN 100 MG/4 ML UDC GT ONE; +POLYVINYL ALCOHOL OPHT DROPS 15 ML BOTTLE EACHEYE PRN; +POTASSIUM CHLORIDE 10 MEQ TAB.PRT.SR PO ONE; +POTASSIUM CHLORIDE 20 MEQ POWDER PACKET GT ONE; +POTASSIUM CHLORIDE 20 MEQ TAB.PRT.SR PO SCH; +POTASSIUM CHLORIDE 40 MEQ/30 ML LIQUID UDC GT ONE; +TUBERCULIN,PURIF.PROT.DERIV. 5 TU/0.1 ML TEST ID ONE; +Z GUARD REMEDY PASTE 57 GM TUBE TOP PRN
--- NOTE | 2020-07-13 03:36 | NUR ---
Patient is afebrile, no signs of any adverse reactions noted from the COVID-19 vaccine.
[2020-07-13] MEDS: IPRATROPIUM BROMIDE 0.5 MG/2.5 ML NEBU NEB SCH ×6 (03:51→23:36)
[2020-07-13] MEDS: ALBUTEROL SULFATE 2.5 MG/3 ML NEBU NEB SCH ×6 (03:51→23:36)
[2020-07-13] MEDS: BACLOFEN 20 MG TABLET GT SCH ×3 (06:20→21:09)
[2020-07-13] MEDS: BACLOFEN 10 MG TABLET GT SCH ×3 (06:20→21:09)
[2020-07-13] MEDS: METOCLOPRAMIDE HCL 5 MG TABLET GT SCH ×3 (06:21→21:09)
[2020-07-13] MEDS: MIDODRINE HCL 10 MG TABLET GT SCH ×3 (06:21→21:09)
[2020-07-13] MEDS: OMEPRAZOLE 20 MG CAPSULE.DR GT SCH (06:21)
[2020-07-13] MEDS: HYDROGEN PEROXIDE 3% 118 ML BOTTLE TP SCH ×2 (07:32→21:35)
[2020-07-13 07:51] VITALS: BP 116/65
[2020-07-13] MEDS: DESMOPRESSIN 0.1 MG TABLET GT SCH (08:33)
[2020-07-13] MEDS: PHENYTOIN 100 MG/4 ML UDC GT SCH ×2 (08:33→21:06)
[2020-07-13] MEDS: levETIRAcetam 500 MG/5 ML LIQUID UDC GT SCH ×2 (08:35→21:07)
[2020-07-13] MEDS: ACIDOPHILUS/BULGARICUS CHEW TAB GT SCH ×2 (08:35→21:06)
[2020-07-13] MEDS: FUROSEMIDE 20 MG/2 ML GT SCH (08:36)
[2020-07-13] MEDS: POTASSIUM CHLORIDE 40 MEQ/30 ML LIQUID UDC GT SCH (08:36)
[2020-07-13] MEDS: NEOMY/BACITRA/POLYMYXIN B OINT UD PACKET TP SCH ×2 (08:37→21:09)
[2020-07-13] MEDS: COD LIVER OIL/ZINC OXIDE OINT 113 GM TUBE TOP SCH ×6 (08:37→21:08)
--- NOTE | 2020-07-13 14:52 | NUR ---
Patient is afebrile, no signs of any adverse reactions noted from the COVID-19 vaccine.
--- NOTE | 2020-07-13 19:00 | NUR ---
Seen by Dr. Wagner with no new orders.
[2020-07-13 20:00] VITALS: BP 106/62
[2020-07-13] MEDS: FOLIC ACID 1 MG TABLET GT SCH (21:07)
[2020-07-13] MEDS: CHOLECALCIFEROL 1,000 UNIT TABLET GT SCH (21:08)
[2020-07-13] MEDS: THIAMINE HCL 100 MG TABLET GT SCH (21:08)
--- NOTE | 2020-07-13 23:10 | NUR ---
Patient is afebrile, no signs of adverse reaction from Covid-19 vaccine.
[2020-07-14] MEDS: ALBUTEROL SULFATE 2.5 MG/3 ML NEBU NEB SCH ×6 (03:57→23:23)
[2020-07-14] MEDS: IPRATROPIUM BROMIDE 0.5 MG/2.5 ML NEBU NEB SCH ×6 (03:57→23:23)
[2020-07-14] MEDS: OMEPRAZOLE 20 MG CAPSULE.DR GT SCH (05:45)
[2020-07-14] MEDS: METOCLOPRAMIDE HCL 5 MG TABLET GT SCH ×3 (05:45→21:48)
[2020-07-14] MEDS: MIDODRINE HCL 10 MG TABLET GT SCH ×3 (05:45→21:48)
[2020-07-14] MEDS: BACLOFEN 10 MG TABLET GT SCH ×3 (05:45→21:47)
[2020-07-14] MEDS: BACLOFEN 20 MG TABLET GT SCH ×3 (05:45→21:47)
[2020-07-14] MEDS: VITAL AF 1.2 1,000 ML LIQUID GT PRN ×2 (05:46→21:48)
[2020-07-14 08:02] VITALS: BP 105/84
[2020-07-14] MEDS: DESMOPRESSIN 0.1 MG TABLET GT SCH (09:11)
[2020-07-14] MEDS: ACIDOPHILUS/BULGARICUS CHEW TAB GT SCH ×2 (09:12→20:14)
[2020-07-14] MEDS: PHENYTOIN 100 MG/4 ML UDC GT SCH ×2 (09:12→20:14)
[2020-07-14] MEDS: levETIRAcetam 500 MG/5 ML LIQUID UDC GT SCH ×2 (09:13→20:15)
[2020-07-14] MEDS: POTASSIUM CHLORIDE 40 MEQ/30 ML LIQUID UDC GT SCH (09:15)
[2020-07-14] MEDS: FUROSEMIDE 20 MG/2 ML GT SCH (09:15)
[2020-07-14] MEDS: COD LIVER OIL/ZINC OXIDE OINT 113 GM TUBE TOP SCH ×6 (09:15→20:17)
[2020-07-14] MEDS: NEOMY/BACITRA/POLYMYXIN B OINT UD PACKET TP SCH ×2 (09:16→20:17)
[2020-07-14] MEDS: HYDROGEN PEROXIDE 3% 118 ML BOTTLE TP SCH ×2 (09:40→20:38)
--- NOTE | 2020-07-14 17:06 | NUR ---
Pt afebrile. No adverse side effects from Covid19 vaccine.
[2020-07-14] MEDS: FOLIC ACID 1 MG TABLET GT SCH (20:14)
[2020-07-14] MEDS: THIAMINE HCL 100 MG TABLET GT SCH (20:15)
[2020-07-14] MEDS: CHOLECALCIFEROL 1,000 UNIT TABLET GT SCH (20:16)
[2020-07-14 22:07] VITALS: BP 99/54
[2020-07-15] MEDS: ALBUTEROL SULFATE 2.5 MG/3 ML NEBU NEB SCH ×6 (03:20→23:20)
[2020-07-15] MEDS: IPRATROPIUM BROMIDE 0.5 MG/2.5 ML NEBU NEB SCH ×6 (03:20→23:20)
[2020-07-15] MEDS: MIDODRINE HCL 10 MG TABLET GT SCH ×3 (05:25→21:05)
[2020-07-15] MEDS: BACLOFEN 10 MG TABLET GT SCH ×3 (05:25→21:06)
[2020-07-15] MEDS: METOCLOPRAMIDE HCL 5 MG TABLET GT SCH ×3 (05:25→21:06)
[2020-07-15] MEDS: OMEPRAZOLE 20 MG CAPSULE.DR GT SCH (05:25)
[2020-07-15] MEDS: BACLOFEN 20 MG TABLET GT SCH ×3 (05:25→21:06)
[2020-07-15] MEDS: VITAL AF 1.2 1,000 ML LIQUID GT PRN ×2 (05:26→22:15)
[2020-07-15 08:04] VITALS: BP 107/62
[2020-07-15] MEDS: PHENYTOIN 100 MG/4 ML UDC GT SCH ×2 (08:35→21:04)
[2020-07-15] MEDS: DESMOPRESSIN 0.1 MG TABLET GT SCH (08:35)
[2020-07-15] MEDS: ACIDOPHILUS/BULGARICUS CHEW TAB GT SCH ×2 (08:35→21:04)
[2020-07-15] MEDS: levETIRAcetam 500 MG/5 ML LIQUID UDC GT SCH ×2 (08:36→21:07)
[2020-07-15] MEDS: COD LIVER OIL/ZINC OXIDE OINT 113 GM TUBE TOP SCH ×3 (08:37)
[2020-07-15] MEDS: FUROSEMIDE 20 MG/2 ML GT SCH (08:37)
[2020-07-15] MEDS: POTASSIUM CHLORIDE 40 MEQ/30 ML LIQUID UDC GT SCH (08:37)
[2020-07-15] MEDS: NEOMY/BACITRA/POLYMYXIN B OINT UD PACKET TP SCH ×2 (08:37→21:08)
[2020-07-15] MEDS: HYDROGEN PEROXIDE 3% 118 ML BOTTLE TP SCH ×2 (09:00→20:36)
[2020-07-15 20:06] VITALS: BP 90/58
[2020-07-15] MEDS: FOLIC ACID 1 MG TABLET GT SCH (21:04)
[2020-07-15] MEDS: THIAMINE HCL 100 MG TABLET GT SCH (21:07)
[2020-07-15] MEDS: CHOLECALCIFEROL 1,000 UNIT TABLET GT SCH (21:08)
[2020-07-16] MEDS: IPRATROPIUM BROMIDE 0.5 MG/2.5 ML NEBU NEB SCH (03:55)
[2020-07-16] MEDS: ALBUTEROL SULFATE 2.5 MG/3 ML NEBU NEB SCH (03:55)
[2020-07-16] MEDS: BACLOFEN 10 MG TABLET GT SCH (05:00)
[2020-07-16 05:01] VITALS: BP 98/60
[2020-07-16] MEDS: MIDODRINE HCL 10 MG TABLET GT SCH (05:01)
[2020-07-16] MEDS: BACLOFEN 20 MG TABLET GT SCH (05:01)
[2020-07-16] MEDS: OMEPRAZOLE 20 MG CAPSULE.DR GT SCH (05:17)
[2020-07-16] MEDS: METOCLOPRAMIDE HCL 5 MG TABLET GT SCH (05:17)
== END | disposition still patient (30) | DRG 130 ==
LOC: SA 07-13
PROVIDERS: ADMIT Internal Medicine; ATTEND Internal Medicine
PROC: 5A1955Z Respiratory Ventilation, Greater than 96 Consecutive Hours (ICD-10-PCS; principal; 2019-07-13)
DX: J96.11 Chronic respiratory failure with hypoxia (principal); G82.50 Quadriplegia, unspecified; E43 Unspecified severe protein-calorie malnutrition; G93.40 Encephalopathy, unspecified; G91.3 Post-traumatic hydrocephalus, unspecified; E23.2 Diabetes insipidus; J90 Pleural effusion, not elsewhere classified; D68.59 Other primary thrombophilia; Z99.11 Dependence on respirator [ventilator] status; Z98.2 Presence of cerebrospinal fluid drainage device; G40.909 Epilepsy, unspecified, not intractable, without status epilepticus; K76.0 Fatty (change of) liver, not elsewhere classified; R13.10 Dysphagia, unspecified; Z87.01 Personal history of pneumonia (recurrent); Z87.820 Personal history of traumatic brain injury; Z93.0 Tracheostomy status; D64.9 Anemia, unspecified; Z87.440 Personal history of urinary (tract) infections; I95.9 Hypotension, unspecified; R21 Rash and other nonspecific skin eruption; Z93.1 Gastrostomy status; E55.9 Vitamin D deficiency, unspecified; L30.4 Erythema intertrigo
CPT/HCPCS: 36415; 70030-TC; 71045; 74018; 83735; 84100; 84443; 84480; 85025; 86580; 90686; 94002; 94003; 94640; 94664; A4663; C1758; J3475; J3590; J8597; Q9963; U0003

== ENCOUNTER 2022-07-13 | Inpatient (IN) | payer MEDICAID ==
[~2022-07-13] VITALS: Ht 162.6 cm; Wt 66.7 kg
[~2022-07-13] MED LIST changes: -ACETAMINOPHEN 325 MG TABLET-SA PATIENTS-FEVER ONLY PO PRN; -ACETAMINOPHEN 325 MG TABLET-SA PATIENTS-PAIN ONLY PO PRN; -ACETAMINOPHEN 650 MG/20.3 ML LIQUID UDC GT PRN; -ALBUTEROL SULFATE 2.5 MG/3 ML NEBU NEB PRN; -COD LIVER OIL/ZINC OXIDE OINT 113 GM TUBE TOP SCH; -COD LIVER OIL/ZINC OXIDE OINT 113 GM TUBE TP PRN; -COVID-19 VACC,MRNA(MODERNA)/PF 100 MCG/0.5 ML VIAL IM ONE; -DIATR MEGLU/DIATRIZOATE SODIUM 30 ML BOTTLE PO ONE; -FOLI1TAB16 GT; +FOLI1TAB94 GT; -HYDROGEN PEROXIDE 3% 118 ML BOTTLE TP PRN; -INFLUENZA VACCINE 2020-2021 0.5 ML DISP.SYRIN IM ONE; -IPRATROPIUM BROMIDE 0.5 MG/2.5 ML NEBU NEB PRN; -LORAZEPAM 2 MG/1 ML VIAL IV PRN; -MAGNESIUM OXIDE 400 MG TABLET GT ONE; -MAGNESIUM OXIDE 400 MG TABLET PO ONE; -NEOMY/BACITRAC/POLYMI OINT 28.35 GM TUBE TOP ONE; -NEOMY/BACITRAC/POLYMI OINT 28.35 GM TUBE TOP SCH; -NYSTATIN CREAM 30 GM TUBE TP SCH; -NYSTATIN POWDER 15 GM BOTTLE TP PRN; -PHENYTOIN 100 MG/4 ML UDC GT ONE; -POLYVINYL ALCOHOL OPHT DROPS 15 ML BOTTLE EACHEYE PRN; -POTASSIUM CHLORIDE 10 MEQ TAB.PRT.SR PO ONE; -POTASSIUM CHLORIDE 20 MEQ POWDER PACKET GT ONE; -POTASSIUM CHLORIDE 20 MEQ TAB.PRT.SR PO SCH; -POTASSIUM CHLORIDE 40 MEQ/30 ML LIQUID UDC GT ONE; -TUBERCULIN,PURIF.PROT.DERIV. 5 TU/0.1 ML TEST ID ONE; -Z GUARD REMEDY PASTE 57 GM TUBE TOP PRN
[2022-07-15] MEDS: IPRATROPIUM BROMIDE 0.5 MG/2.5 ML NEBU NEB SCH ×5 (07:35→23:02)
[2022-07-15] MEDS: ALBUTEROL SULFATE 2.5 MG/3 ML NEBU NEB SCH ×5 (07:35→23:02)
[2022-07-15] MEDS ORDERED: ACETAMINOPHEN 650 MG/20 ML UDC- SA PATIENTS-FEVER ONLY GT PRN (07:45)
[2022-07-15] MEDS ORDERED: REMEDY ESSENTIAL ZINC PASTE 113 GM TP PRN (07:45)
[2022-07-15] MEDS ORDERED: HYDROGEN PEROXIDE 3% 118 ML BOTTLE TP PRN (07:45)
[2022-07-15] MEDS ORDERED: BISACODYL 10 MG SUPP.RECT RC PRN (07:45)
[2022-07-15] MEDS ORDERED: LORAZEPAM 2 MG/1 ML VIAL IV PRN (07:45)
[2022-07-15] MEDS ORDERED: POLYVINYL ALCOHOL OPHT DROPS 15 ML BOTTLE EACHEYE PRN (07:45)
[2022-07-15] MEDS ORDERED: ALBUTEROL SULFATE 2.5 MG/3 ML NEBU NEB PRN (07:45)
[2022-07-15] MEDS ORDERED: MAGNESIUM HYDROXIDE 30 ML LIQUID UDC GT PRN (07:45)
[2022-07-15] MEDS ORDERED: IPRATROPIUM BROMIDE 0.5 MG/2.5 ML NEBU NEB PRN (07:45)
[2022-07-15 08:00] VITALS: TEMP 97.4
[2022-07-15] MEDS: REMEDY ESSENTIAL ZINC PASTE 113 GM TP SCH ×2 (08:50→21:01)
[2022-07-15] MEDS: PHENYTOIN 100 MG/4 ML UDC GT SCH ×2 (08:50→21:01)
[2022-07-15] MEDS: ACIDOPHILUS/BULGARICUS CHEW TAB GT SCH ×2 (08:50→21:01)
[2022-07-15] MEDS: POTASSIUM CHLORIDE 40 MEQ/30 ML LIQUID UDC GT SCH (08:50)
[2022-07-15] MEDS: FERROUS SULFATE 330 MG/7.5 ML UDC- FOR SA ONLY GT SCH ×2 (08:50→21:01)
[2022-07-15] MEDS: levETIRAcetam 500 MG/5 ML LIQUID UDC GT SCH ×2 (08:50→21:01)
[2022-07-15] MEDS: FUROSEMIDE 10 MG/ML GT SCH (08:50)
[2022-07-15] MEDS: HYDROGEN PEROXIDE 3% 118 ML BOTTLE TP SCH ×2 (09:42→21:08)
[2022-07-15] MEDS ORDERED: ALBUTEROL SULFATE 2.5 MG/3 ML NEBU NEB SCH (11:30)
[2022-07-15] MEDS: MIDODRINE HCL 10 MG TABLET GT SCH ×2 (14:00→21:04)
[2022-07-15] MEDS: METOCLOPRAMIDE HCL 5 MG TABLET GT SCH ×2 (14:16→21:01)
[2022-07-15] MEDS: BACLOFEN 10 MG TABLET GT SCH ×2 (14:16→21:01)
[2022-07-15] MEDS: BACLOFEN 20 MG TABLET GT SCH ×2 (14:16→21:01)
[2022-07-15] MEDS: FOLIC ACID 1 MG TABLET GT SCH (21:01)
[2022-07-15] MEDS: THIAMINE HCL 100 MG TABLET GT SCH (21:01)
[2022-07-15] MEDS: CHOLECALCIFEROL 1,000 UNIT TABLET GT SCH (21:01)
[2022-07-15 21:14] VITALS: TEMP 97.2
[2022-07-16] MEDS: ALBUTEROL SULFATE 2.5 MG/3 ML NEBU NEB SCH ×6 (03:29→23:22)
[2022-07-16] MEDS: IPRATROPIUM BROMIDE 0.5 MG/2.5 ML NEBU NEB SCH ×6 (03:29→23:22)
[2022-07-16] MEDS: MIDODRINE HCL 10 MG TABLET GT SCH ×3 (05:37→22:27)
[2022-07-16] MEDS: MAGNESIUM OXIDE 400 MG TABLET GT SCH (05:37)
[2022-07-16] MEDS: BACLOFEN 20 MG TABLET GT SCH ×3 (05:37→22:26)
[2022-07-16] MEDS: METOCLOPRAMIDE HCL 5 MG TABLET GT SCH ×3 (05:37→22:27)
[2022-07-16] MEDS: BACLOFEN 10 MG TABLET GT SCH ×3 (05:37→22:26)
[2022-07-16] MEDS: OMEPRAZOLE 20 MG CAPSULE.DR GT SCH (05:37)
[2022-07-16] MEDS: HYDROGEN PEROXIDE 3% 118 ML BOTTLE TP SCH ×2 (07:42→20:38)
[2022-07-16 08:00] VITALS: TEMP 97.5
[2022-07-16] MEDS: FERROUS SULFATE 330 MG/7.5 ML UDC- FOR SA ONLY GT SCH ×2 (09:03→20:46)
[2022-07-16] MEDS: PHENYTOIN 100 MG/4 ML UDC GT SCH ×2 (09:03→20:46)
[2022-07-16] MEDS: ACIDOPHILUS/BULGARICUS CHEW TAB GT SCH ×2 (09:04→20:46)
[2022-07-16] MEDS: levETIRAcetam 500 MG/5 ML LIQUID UDC GT SCH ×2 (09:05→20:46)
[2022-07-16] MEDS: FUROSEMIDE 10 MG/ML GT SCH (09:05)
[2022-07-16] MEDS: POTASSIUM CHLORIDE 40 MEQ/30 ML LIQUID UDC GT SCH (09:05)
[2022-07-16] MEDS: REMEDY ESSENTIAL ZINC PASTE 113 GM TP SCH ×2 (09:06→20:46)
[2022-07-16] MEDS: VITAL AF 1.2 1,000 ML LIQUID GT PRN (18:53)
[2022-07-16 20:46] VITALS: TEMP 97.4
[2022-07-16] MEDS: THIAMINE HCL 100 MG TABLET GT SCH (20:46)
[2022-07-16] MEDS: MIRALAX 17 GM POWD.PACK GT SCH (20:46)
[2022-07-16] MEDS: FOLIC ACID 1 MG TABLET GT SCH (20:46)
[2022-07-16] MEDS: CHOLECALCIFEROL 1,000 UNIT TABLET GT SCH (20:46)
[2022-07-17] MEDS: IPRATROPIUM BROMIDE 0.5 MG/2.5 ML NEBU NEB SCH ×5 (03:45→19:16)
[2022-07-17] MEDS: ALBUTEROL SULFATE 2.5 MG/3 ML NEBU NEB SCH ×5 (03:45→19:16)
[2022-07-17] MEDS: MIDODRINE HCL 10 MG TABLET GT SCH ×3 (05:41→22:06)
[2022-07-17] MEDS: MAGNESIUM OXIDE 400 MG TABLET GT SCH (05:41)
[2022-07-17] MEDS: OMEPRAZOLE 20 MG CAPSULE.DR GT SCH (05:41)
[2022-07-17] MEDS: BACLOFEN 20 MG TABLET GT SCH ×3 (05:41→22:05)
[2022-07-17] MEDS: METOCLOPRAMIDE HCL 5 MG TABLET GT SCH ×3 (05:41→22:06)
[2022-07-17] MEDS: BACLOFEN 10 MG TABLET GT SCH ×3 (05:41→22:05)
[2022-07-17] MEDS: HYDROGEN PEROXIDE 3% 118 ML BOTTLE TP SCH ×2 (07:17→21:18)
[2022-07-17 08:08] VITALS: TEMP 98
[2022-07-17] MEDS: REMEDY ESSENTIAL ZINC PASTE 113 GM TP SCH ×2 (09:14→21:57)
[2022-07-17] MEDS: ACIDOPHILUS/BULGARICUS CHEW TAB GT SCH ×2 (09:14→20:35)
[2022-07-17] MEDS: FERROUS SULFATE 330 MG/7.5 ML UDC- FOR SA ONLY GT SCH ×2 (09:14→20:35)
[2022-07-17] MEDS: levETIRAcetam 500 MG/5 ML LIQUID UDC GT SCH ×2 (09:14→20:35)
[2022-07-17] MEDS: POTASSIUM CHLORIDE 40 MEQ/30 ML LIQUID UDC GT SCH (09:14)
[2022-07-17] MEDS: FUROSEMIDE 10 MG/ML GT SCH (09:14)
[2022-07-17] MEDS: PHENYTOIN 100 MG/4 ML UDC GT SCH ×2 (09:14→20:35)
[2022-07-17] MEDS: CHOLECALCIFEROL 1,000 UNIT TABLET GT SCH (20:35)
[2022-07-17] MEDS: FOLIC ACID 1 MG TABLET GT SCH (20:35)
[2022-07-17] MEDS: THIAMINE HCL 100 MG TABLET GT SCH (20:35)
[2022-07-17 20:47] VITALS: TEMP 97
[2022-07-18] MEDS: ALBUTEROL SULFATE 2.5 MG/3 ML NEBU NEB SCH ×7 (00:27→23:40)
[2022-07-18] MEDS: IPRATROPIUM BROMIDE 0.5 MG/2.5 ML NEBU NEB SCH ×7 (00:27→23:40)
[2022-07-18] MEDS: MAGNESIUM OXIDE 400 MG TABLET GT SCH (05:53)
[2022-07-18] MEDS: BACLOFEN 20 MG TABLET GT SCH ×3 (05:53→22:43)
[2022-07-18] MEDS: METOCLOPRAMIDE HCL 5 MG TABLET GT SCH ×3 (05:53→22:44)
[2022-07-18] MEDS: MIDODRINE HCL 10 MG TABLET GT SCH ×3 (05:53→22:44)
[2022-07-18] MEDS: OMEPRAZOLE 20 MG CAPSULE.DR GT SCH (05:53)
[2022-07-18] MEDS: BACLOFEN 10 MG TABLET GT SCH ×3 (05:53→22:43)
[2022-07-18 06:33] LABS: BASOPHILS # (AUTO) 0.1 K/UL (0.0-0.2); BASOPHILS % (AUTO) 0.9 % (0.0-2.0); EOSINOPHILS # (AUTO) 0.2 K/uL (0.0-0.7); EOSINOPHILS % (AUTO) 1.6 % (0.0-7.0); HEMATOCRIT 34.5 % (31.2-41.9); HEMOGLOBIN 11.3 g/dL (10.9-14.3); LYMPHOCYTES # (AUTO) 1.9 K/uL (0.8-4.8); LYMPHOCYTES % (AUTO) 15.2 % (20.5-51.5); MEAN CORPUSCULAR HEMOGLOBIN 30.8 uug (24.7-32.8); MEAN CORPUSCULAR HGB CONC 33 g/dL (32.3-35.6); MEAN CORPUSCULAR VOLUME 94.2 fL (75.5-95.3); MONOCYTES # (AUTO) 0.6 K/uL (0.1-1.30); MONOCYTES % (AUTO) 4.7 % (0.0-11.0); NEUTROPHILS # (AUTO) 9.9 K/uL (1.8-8.9); NEUTROPHILS % (AUTO) 77.6 % (38.5-71.5); PLATELET COUNT (AUTO) 314 K/uL (179-408); RED BLOOD CELL COUNT(AUTO) 3.66 MIL/uL (3.63-4.92); WHITE BLOOD COUNT (AUTO) 12.7 K/uL (3.8-11.8)
[2022-07-18 06:39] LABS: CALCIUM 8.6 mg/dL (8.5-10.1); CARBON DIOXIDE 20 mmol/L (21-32); CHLORIDE 108 mmol/L (98-107); CREATININE 0.5 mg/dL (0.6-1.3); GLUCOSE 108 mg/dL (74-106); PHOSPHOROUS 4.1 mg/dL (2.5-4.9); POTASSIUM 3.6 mmol/L (3.5-5.1); SODIUM SERUM 138 mmol/L (136-145); UREA NITROGEN, BLOOD 18 mg/dL (7-18)
[2022-07-18 06:40] LABS: DIFFERENTIAL COMMENT 1
[2022-07-18] MEDS: HYDROGEN PEROXIDE 3% 118 ML BOTTLE TP SCH ×2 (07:37→19:33)
[2022-07-18 07:46] VITALS: TEMP 97
[2022-07-18] MEDS: PHENYTOIN 100 MG/4 ML UDC GT SCH ×2 (08:16→21:00)
[2022-07-18] MEDS: ACIDOPHILUS/BULGARICUS CHEW TAB GT SCH ×2 (08:16→21:00)
[2022-07-18] MEDS: FUROSEMIDE 10 MG/ML GT SCH (08:16)
[2022-07-18] MEDS: FERROUS SULFATE 330 MG/7.5 ML UDC- FOR SA ONLY GT SCH ×2 (08:16→21:00)
[2022-07-18] MEDS: REMEDY ESSENTIAL ZINC PASTE 113 GM TP SCH ×2 (08:17→21:00)
[2022-07-18] MEDS: levETIRAcetam 500 MG/5 ML LIQUID UDC GT SCH ×2 (08:17→21:00)
[2022-07-18] MEDS: POTASSIUM CHLORIDE 40 MEQ/30 ML LIQUID UDC GT SCH (08:17)
[2022-07-18] MEDS: VITAL AF 1.2 1,000 ML LIQUID GT PRN (11:30)
[2022-07-18 20:52] VITALS: TEMP 96.8
[2022-07-18] MEDS: THIAMINE HCL 100 MG TABLET GT SCH (21:00)
[2022-07-18] MEDS: CHOLECALCIFEROL 1,000 UNIT TABLET GT SCH (21:00)
[2022-07-18] MEDS: FOLIC ACID 1 MG TABLET GT SCH (21:00)
[2022-07-18] MEDS: MIRALAX 17 GM POWD.PACK GT SCH (21:00)
[2022-07-19] MEDS: IPRATROPIUM BROMIDE 0.5 MG/2.5 ML NEBU NEB SCH ×6 (03:41→23:13)
[2022-07-19] MEDS: ALBUTEROL SULFATE 2.5 MG/3 ML NEBU NEB SCH ×6 (03:41→23:13)
[2022-07-19] MEDS: BACLOFEN 10 MG TABLET GT SCH ×3 (06:10→22:17)
[2022-07-19] MEDS: METOCLOPRAMIDE HCL 5 MG TABLET GT SCH ×3 (06:10→22:19)
[2022-07-19] MEDS: MAGNESIUM OXIDE 400 MG TABLET GT SCH (06:10)
[2022-07-19] MEDS: OMEPRAZOLE 20 MG CAPSULE.DR GT SCH (06:10)
[2022-07-19] MEDS: MIDODRINE HCL 10 MG TABLET GT SCH ×3 (06:10→22:00)
[2022-07-19] MEDS: BACLOFEN 20 MG TABLET GT SCH ×3 (06:10→22:17)
[2022-07-19 08:31] VITALS: TEMP 96.2
[2022-07-19] MEDS: HYDROGEN PEROXIDE 3% 118 ML BOTTLE TP SCH ×2 (08:39→21:00)
[2022-07-19] MEDS: REMEDY ESSENTIAL ZINC PASTE 113 GM TP SCH ×2 (09:51→20:56)
[2022-07-19] MEDS: FUROSEMIDE 10 MG/ML GT SCH (09:51)
[2022-07-19] MEDS: levETIRAcetam 500 MG/5 ML LIQUID UDC GT SCH ×2 (09:51→20:56)
[2022-07-19] MEDS: PHENYTOIN 100 MG/4 ML UDC GT SCH ×2 (09:51→20:56)
[2022-07-19] MEDS: FERROUS SULFATE 330 MG/7.5 ML UDC- FOR SA ONLY GT SCH ×2 (09:51→20:56)
[2022-07-19] MEDS: ACIDOPHILUS/BULGARICUS CHEW TAB GT SCH ×2 (09:51→20:56)
[2022-07-19] MEDS: POTASSIUM CHLORIDE 40 MEQ/30 ML LIQUID UDC GT SCH (09:51)
[2022-07-19] MEDS: VITAL AF 1.2 1,000 ML LIQUID GT PRN (16:58)
[2022-07-19] MEDS: CHOLECALCIFEROL 1,000 UNIT TABLET GT SCH (20:56)
[2022-07-19] MEDS: THIAMINE HCL 100 MG TABLET GT SCH (20:56)
[2022-07-19] MEDS: FOLIC ACID 1 MG TABLET GT SCH (20:56)
[2022-07-19 20:57] VITALS: TEMP 96.6
[2022-07-20] MEDS: ALBUTEROL SULFATE 2.5 MG/3 ML NEBU NEB SCH ×6 (03:30→23:06)
[2022-07-20] MEDS: IPRATROPIUM BROMIDE 0.5 MG/2.5 ML NEBU NEB SCH ×6 (03:30→23:06)
[2022-07-20] MEDS: BACLOFEN 20 MG TABLET GT SCH ×3 (05:30→21:40)
[2022-07-20] MEDS: BACLOFEN 10 MG TABLET GT SCH ×3 (05:30→21:40)
[2022-07-20] MEDS: MAGNESIUM OXIDE 400 MG TABLET GT SCH (05:30)
[2022-07-20] MEDS: OMEPRAZOLE 20 MG CAPSULE.DR GT SCH (05:31)
[2022-07-20] MEDS: MIDODRINE HCL 10 MG TABLET GT SCH ×3 (05:31→21:41)
[2022-07-20] MEDS: METOCLOPRAMIDE HCL 5 MG TABLET GT SCH ×3 (05:31→21:41)
[2022-07-20 08:00] VITALS: TEMP 97
[2022-07-20] MEDS: HYDROGEN PEROXIDE 3% 118 ML BOTTLE TP SCH ×2 (08:12→21:51)
[2022-07-20] MEDS: POTASSIUM CHLORIDE 40 MEQ/30 ML LIQUID UDC GT SCH (08:48)
[2022-07-20] MEDS: ACIDOPHILUS/BULGARICUS CHEW TAB GT SCH ×2 (08:48→21:40)
[2022-07-20] MEDS: FUROSEMIDE 10 MG/ML GT SCH (08:48)
[2022-07-20] MEDS: levETIRAcetam 500 MG/5 ML LIQUID UDC GT SCH ×2 (08:48→21:40)
[2022-07-20] MEDS: REMEDY ESSENTIAL ZINC PASTE 113 GM TP SCH ×2 (08:48→21:40)
[2022-07-20] MEDS: FERROUS SULFATE 330 MG/7.5 ML UDC- FOR SA ONLY GT SCH ×2 (08:48→21:40)
[2022-07-20] MEDS: PHENYTOIN 100 MG/4 ML UDC GT SCH ×2 (08:48→21:40)
[2022-07-20 19:00] VITALS: TEMP 96.8
[2022-07-20] MEDS: CHOLECALCIFEROL 1,000 UNIT TABLET GT SCH (21:40)
[2022-07-20] MEDS: FOLIC ACID 1 MG TABLET GT SCH (21:40)
[2022-07-20] MEDS: THIAMINE HCL 100 MG TABLET GT SCH (21:40)
[2022-07-21] MEDS: IPRATROPIUM BROMIDE 0.5 MG/2.5 ML NEBU NEB SCH ×6 (03:45→23:40)
[2022-07-21] MEDS: ALBUTEROL SULFATE 2.5 MG/3 ML NEBU NEB SCH ×6 (03:45→23:40)
[2022-07-21] MEDS: BACLOFEN 10 MG TABLET GT SCH ×3 (06:54→22:59)
[2022-07-21] MEDS: MAGNESIUM OXIDE 400 MG TABLET GT SCH (06:55)
[2022-07-21] MEDS: BACLOFEN 20 MG TABLET GT SCH ×3 (06:55→22:59)
[2022-07-21] MEDS: METOCLOPRAMIDE HCL 5 MG TABLET GT SCH ×3 (06:56→22:58)
[2022-07-21] MEDS: MIDODRINE HCL 10 MG TABLET GT SCH ×3 (06:56→22:00)
[2022-07-21] MEDS: OMEPRAZOLE 20 MG CAPSULE.DR GT SCH (06:56)
[2022-07-21] MEDS: VITAL AF 1.2 1,000 ML LIQUID GT PRN (07:26)
[2022-07-21 07:30] VITALS: TEMP 97.2
[2022-07-21] MEDS: HYDROGEN PEROXIDE 3% 118 ML BOTTLE TP SCH ×2 (08:31→20:58)
[2022-07-21] MEDS: FERROUS SULFATE 330 MG/7.5 ML UDC- FOR SA ONLY GT SCH ×2 (08:54→21:00)
[2022-07-21] MEDS: PHENYTOIN 100 MG/4 ML UDC GT SCH ×2 (08:54→21:00)
[2022-07-21] MEDS: levETIRAcetam 500 MG/5 ML LIQUID UDC GT SCH ×2 (08:55→21:00)
[2022-07-21] MEDS: ACIDOPHILUS/BULGARICUS CHEW TAB GT SCH ×2 (08:55→21:00)
[2022-07-21] MEDS: POTASSIUM CHLORIDE 40 MEQ/30 ML LIQUID UDC GT SCH (08:55)
[2022-07-21] MEDS: REMEDY ESSENTIAL ZINC PASTE 113 GM TP SCH ×2 (08:55→21:00)
[2022-07-21] MEDS: FUROSEMIDE 10 MG/ML GT SCH (08:55)
[2022-07-21 20:00] VITALS: TEMP 96.6
[2022-07-21] MEDS: CHOLECALCIFEROL 1,000 UNIT TABLET GT SCH (21:00)
[2022-07-21] MEDS: MIRALAX 17 GM POWD.PACK GT SCH (21:00)
[2022-07-21] MEDS: THIAMINE HCL 100 MG TABLET GT SCH (21:00)
[2022-07-21] MEDS: FOLIC ACID 1 MG TABLET GT SCH (21:00)
[2022-07-22] MEDS: IPRATROPIUM BROMIDE 0.5 MG/2.5 ML NEBU NEB SCH ×6 (03:37→23:30)
[2022-07-22] MEDS: ALBUTEROL SULFATE 2.5 MG/3 ML NEBU NEB SCH ×6 (03:37→23:30)
[2022-07-22] MEDS: MAGNESIUM OXIDE 400 MG TABLET GT SCH (06:00)
[2022-07-22] MEDS: BACLOFEN 10 MG TABLET GT SCH ×3 (06:00→22:10)
[2022-07-22] MEDS: BACLOFEN 20 MG TABLET GT SCH ×3 (06:00→22:10)
[2022-07-22] MEDS: MIDODRINE HCL 10 MG TABLET GT SCH ×3 (06:01→22:12)
[2022-07-22] MEDS: METOCLOPRAMIDE HCL 5 MG TABLET GT SCH ×3 (06:02→22:12)
[2022-07-22] MEDS: OMEPRAZOLE 20 MG CAPSULE.DR GT SCH (06:02)
[2022-07-22 07:26] VITALS: TEMP 97.2
[2022-07-22] MEDS: HYDROGEN PEROXIDE 3% 118 ML BOTTLE TP SCH ×2 (07:56→21:55)
[2022-07-22] MEDS: ACIDOPHILUS/BULGARICUS CHEW TAB GT SCH ×2 (09:00→20:44)
[2022-07-22] MEDS: FUROSEMIDE 10 MG/ML GT SCH (09:37)
[2022-07-22] MEDS: POTASSIUM CHLORIDE 40 MEQ/30 ML LIQUID UDC GT SCH (09:37)
[2022-07-22] MEDS: PHENYTOIN 100 MG/4 ML UDC GT SCH ×2 (09:37→20:44)
[2022-07-22] MEDS: FERROUS SULFATE 330 MG/7.5 ML UDC- FOR SA ONLY GT SCH ×2 (09:37→20:44)
[2022-07-22] MEDS: levETIRAcetam 500 MG/5 ML LIQUID UDC GT SCH ×2 (09:38→20:44)
[2022-07-22] MEDS: REMEDY ESSENTIAL ZINC PASTE 113 GM TP SCH ×2 (09:38→20:44)
[2022-07-22] MEDS: VITAL AF 1.2 1,000 ML LIQUID GT PRN (16:31)
[2022-07-22] MEDS: CHOLECALCIFEROL 1,000 UNIT TABLET GT SCH (20:44)
[2022-07-22] MEDS: FOLIC ACID 1 MG TABLET GT SCH (20:44)
[2022-07-22] MEDS: THIAMINE HCL 100 MG TABLET GT SCH (20:44)
[2022-07-22 22:00] VITALS: TEMP 94.9
[2022-07-23] MEDS: IPRATROPIUM BROMIDE 0.5 MG/2.5 ML NEBU NEB SCH ×6 (03:24→23:43)
[2022-07-23] MEDS: ALBUTEROL SULFATE 2.5 MG/3 ML NEBU NEB SCH ×6 (03:24→23:43)
[2022-07-23] MEDS: BACLOFEN 20 MG TABLET GT SCH ×3 (06:22→21:58)
[2022-07-23] MEDS: BACLOFEN 10 MG TABLET GT SCH ×3 (06:22→21:58)
[2022-07-23] MEDS: MAGNESIUM OXIDE 400 MG TABLET GT SCH (06:22)
[2022-07-23] MEDS: METOCLOPRAMIDE HCL 5 MG TABLET GT SCH ×3 (06:23→21:59)
[2022-07-23] MEDS: OMEPRAZOLE 20 MG CAPSULE.DR GT SCH (06:23)
[2022-07-23] MEDS: MIDODRINE HCL 10 MG TABLET GT SCH ×3 (06:23→21:59)
[2022-07-23 08:22] VITALS: TEMP 97.9
[2022-07-23] MEDS: PHENYTOIN 100 MG/4 ML UDC GT SCH ×2 (08:34→20:53)
[2022-07-23] MEDS: ACIDOPHILUS/BULGARICUS CHEW TAB GT SCH ×2 (08:34→20:53)
[2022-07-23] MEDS: FERROUS SULFATE 330 MG/7.5 ML UDC- FOR SA ONLY GT SCH ×2 (08:34→20:53)
[2022-07-23] MEDS: FUROSEMIDE 10 MG/ML GT SCH (08:35)
[2022-07-23] MEDS: levETIRAcetam 500 MG/5 ML LIQUID UDC GT SCH ×2 (08:35→20:53)
[2022-07-23] MEDS: REMEDY ESSENTIAL ZINC PASTE 113 GM TP SCH ×2 (08:36→20:53)
[2022-07-23] MEDS: POTASSIUM CHLORIDE 40 MEQ/30 ML LIQUID UDC GT SCH (08:36)
[2022-07-23] MEDS: HYDROGEN PEROXIDE 3% 118 ML BOTTLE TP SCH ×2 (08:43→19:31)
[2022-07-23 20:00] VITALS: TEMP 97.8
[2022-07-23] MEDS: FOLIC ACID 1 MG TABLET GT SCH (20:53)
[2022-07-23] MEDS: THIAMINE HCL 100 MG TABLET GT SCH (20:53)
[2022-07-23] MEDS: CHOLECALCIFEROL 1,000 UNIT TABLET GT SCH (20:53)
[2022-07-23] MEDS: MIRALAX 17 GM POWD.PACK GT SCH (20:53)
[2022-07-24] MEDS: VITAL AF 1.2 1,000 ML LIQUID GT PRN (03:21)
[2022-07-24] MEDS: ALBUTEROL SULFATE 2.5 MG/3 ML NEBU NEB SCH ×5 (03:26→19:19)
[2022-07-24] MEDS: IPRATROPIUM BROMIDE 0.5 MG/2.5 ML NEBU NEB SCH ×5 (03:26→19:18)
[2022-07-24] MEDS: BACLOFEN 20 MG TABLET GT SCH ×3 (05:14→21:02)
[2022-07-24] MEDS: MAGNESIUM OXIDE 400 MG TABLET GT SCH (05:14)
[2022-07-24] MEDS: BACLOFEN 10 MG TABLET GT SCH ×3 (05:14→21:02)
[2022-07-24] MEDS: MIDODRINE HCL 10 MG TABLET GT SCH ×3 (05:15→21:02)
[2022-07-24] MEDS: METOCLOPRAMIDE HCL 5 MG TABLET GT SCH ×3 (05:15→21:02)
[2022-07-24] MEDS: OMEPRAZOLE 20 MG CAPSULE.DR GT SCH (05:15)
[2022-07-24 07:49] VITALS: TEMP 97.5
[2022-07-24] MEDS ORDERED: TRIAMCINOLONE ACET 0.1% CREAM 15 GM TUBE TP PRN (08:45)
[2022-07-24] MEDS ORDERED: NYSTATIN CREAM 30 GM TUBE TP PRN (08:45)
[2022-07-24] MEDS: PHENYTOIN 100 MG/4 ML UDC GT SCH ×2 (08:50→21:01)
[2022-07-24] MEDS: FERROUS SULFATE 330 MG/7.5 ML UDC- FOR SA ONLY GT SCH ×2 (08:52→21:01)
[2022-07-24] MEDS: ACIDOPHILUS/BULGARICUS CHEW TAB GT SCH ×2 (08:52→21:01)
[2022-07-24] MEDS: FUROSEMIDE 10 MG/ML GT SCH (08:53)
[2022-07-24] MEDS: levETIRAcetam 500 MG/5 ML LIQUID UDC GT SCH ×2 (08:53→21:01)
[2022-07-24] MEDS: POTASSIUM CHLORIDE 40 MEQ/30 ML LIQUID UDC GT SCH (08:54)
[2022-07-24] MEDS: NYSTATIN CREAM 30 GM TUBE TP SCH ×2 (08:56→21:01)
[2022-07-24] MEDS: REMEDY ESSENTIAL ZINC PASTE 113 GM TP SCH ×2 (08:57→21:02)
[2022-07-24] MEDS: TRIAMCINOLONE ACET 0.1% CREAM 15 GM TUBE TP SCH ×2 (09:00→21:01)
[2022-07-24] MEDS: HYDROGEN PEROXIDE 3% 118 ML BOTTLE TP SCH ×2 (09:38→21:02)
[2022-07-24 20:00] VITALS: TEMP 94.6
[2022-07-24] MEDS: CHOLECALCIFEROL 1,000 UNIT TABLET GT SCH (21:01)
[2022-07-24] MEDS: FOLIC ACID 1 MG TABLET GT SCH (21:01)
[2022-07-24] MEDS: THIAMINE HCL 100 MG TABLET GT SCH (21:01)
[2022-07-24 22:30] VITALS: TEMP 97.6
[2022-07-25] MEDS: ALBUTEROL SULFATE 2.5 MG/3 ML NEBU NEB SCH ×7 (00:10→23:09)
[2022-07-25] MEDS: IPRATROPIUM BROMIDE 0.5 MG/2.5 ML NEBU NEB SCH ×7 (00:10→23:09)
[2022-07-25 01:00] VITALS: TEMP 98.8
[2022-07-25] MEDS: BACLOFEN 10 MG TABLET GT SCH ×3 (05:54→21:46)
[2022-07-25] MEDS: BACLOFEN 20 MG TABLET GT SCH ×3 (05:54→21:47)
[2022-07-25] MEDS: MAGNESIUM OXIDE 400 MG TABLET GT SCH (05:54)
[2022-07-25] MEDS: MIDODRINE HCL 10 MG TABLET GT SCH ×3 (05:55→21:47)
[2022-07-25] MEDS: METOCLOPRAMIDE HCL 5 MG TABLET GT SCH ×3 (05:55→21:47)
[2022-07-25] MEDS: OMEPRAZOLE 20 MG CAPSULE.DR GT SCH (05:55)
[2022-07-25 07:43] VITALS: TEMP 97.7
[2022-07-25] MEDS: PHENYTOIN 100 MG/4 ML UDC GT SCH ×2 (09:08→21:45)
[2022-07-25] MEDS: levETIRAcetam 500 MG/5 ML LIQUID UDC GT SCH ×2 (09:09→21:46)
[2022-07-25] MEDS: FERROUS SULFATE 330 MG/7.5 ML UDC- FOR SA ONLY GT SCH ×2 (09:09→21:45)
[2022-07-25] MEDS: FUROSEMIDE 10 MG/ML GT SCH (09:09)
[2022-07-25] MEDS: ACIDOPHILUS/BULGARICUS CHEW TAB GT SCH ×2 (09:09→21:45)
[2022-07-25] MEDS: POTASSIUM CHLORIDE 40 MEQ/30 ML LIQUID UDC GT SCH (09:10)
[2022-07-25] MEDS: NYSTATIN CREAM 30 GM TUBE TP SCH ×2 (09:11→21:46)
[2022-07-25] MEDS: TRIAMCINOLONE ACET 0.1% CREAM 15 GM TUBE TP SCH ×2 (09:11→21:46)
[2022-07-25] MEDS: REMEDY ESSENTIAL ZINC PASTE 113 GM TP SCH ×2 (09:11→21:46)
[2022-07-25] MEDS: HYDROGEN PEROXIDE 3% 118 ML BOTTLE TP SCH ×2 (09:59→19:02)
[2022-07-25] MEDS: VITAL AF 1.2 1,000 ML LIQUID GT PRN (14:15)
[2022-07-25] MEDS: FOLIC ACID 1 MG TABLET GT SCH (21:46)
[2022-07-25] MEDS: CHOLECALCIFEROL 1,000 UNIT TABLET GT SCH (21:46)
[2022-07-25] MEDS: THIAMINE HCL 100 MG TABLET GT SCH (21:46)
[2022-07-25] MEDS: MIRALAX 17 GM POWD.PACK GT SCH (21:46)
[2022-07-25 22:33] VITALS: TEMP 97.9
[2022-07-26] MEDS: ALBUTEROL SULFATE 2.5 MG/3 ML NEBU NEB SCH ×6 (03:31→23:00)
[2022-07-26] MEDS: IPRATROPIUM BROMIDE 0.5 MG/2.5 ML NEBU NEB SCH ×6 (03:31→23:00)
[2022-07-26] MEDS: MAGNESIUM OXIDE 400 MG TABLET GT SCH (05:44)
[2022-07-26] MEDS: MIDODRINE HCL 10 MG TABLET GT SCH ×3 (05:44→21:20)
[2022-07-26] MEDS: BACLOFEN 20 MG TABLET GT SCH ×3 (05:44→21:19)
[2022-07-26] MEDS: BACLOFEN 10 MG TABLET GT SCH ×3 (05:45→21:19)
[2022-07-26] MEDS: OMEPRAZOLE 20 MG CAPSULE.DR GT SCH (05:45)
[2022-07-26] MEDS: METOCLOPRAMIDE HCL 5 MG TABLET GT SCH ×3 (05:45→21:20)
[2022-07-26] MEDS: HYDROGEN PEROXIDE 3% 118 ML BOTTLE TP SCH ×2 (07:45→19:00)
[2022-07-26] MEDS: NYSTATIN CREAM 30 GM TUBE TP SCH ×2 (09:59→21:19)
[2022-07-26] MEDS: FERROUS SULFATE 330 MG/7.5 ML UDC- FOR SA ONLY GT SCH ×2 (09:59→21:18)
[2022-07-26] MEDS: ACIDOPHILUS/BULGARICUS CHEW TAB GT SCH ×2 (09:59→21:11)
[2022-07-26] MEDS: TRIAMCINOLONE ACET 0.1% CREAM 15 GM TUBE TP SCH ×2 (09:59→21:19)
[2022-07-26] MEDS: REMEDY ESSENTIAL ZINC PASTE 113 GM TP SCH ×2 (09:59→21:19)
[2022-07-26] MEDS: levETIRAcetam 500 MG/5 ML LIQUID UDC GT SCH ×2 (09:59→21:18)
[2022-07-26] MEDS: PHENYTOIN 100 MG/4 ML UDC GT SCH ×2 (09:59→21:18)
[2022-07-26] MEDS: POTASSIUM CHLORIDE 40 MEQ/30 ML LIQUID UDC GT SCH (09:59)
[2022-07-26] MEDS: FUROSEMIDE 10 MG/ML GT SCH (09:59)
[2022-07-26 12:15] VITALS: TEMP 97.5
[2022-07-26] MEDS: VITAL AF 1.2 1,000 ML LIQUID GT PRN (17:56)
[2022-07-26 20:46] VITALS: TEMP 96.4
[2022-07-26] MEDS: THIAMINE HCL 100 MG TABLET GT SCH (21:18)
[2022-07-26] MEDS: FOLIC ACID 1 MG TABLET GT SCH (21:18)
[2022-07-26] MEDS: CHOLECALCIFEROL 1,000 UNIT TABLET GT SCH (21:21)
[2022-07-27] MEDS: IPRATROPIUM BROMIDE 0.5 MG/2.5 ML NEBU NEB SCH ×6 (03:25→23:01)
[2022-07-27] MEDS: ALBUTEROL SULFATE 2.5 MG/3 ML NEBU NEB SCH ×6 (03:25→23:01)
[2022-07-27] MEDS: MAGNESIUM OXIDE 400 MG TABLET GT SCH (06:00)
[2022-07-27] MEDS: BACLOFEN 20 MG TABLET GT SCH ×3 (06:00→21:51)
[2022-07-27] MEDS: BACLOFEN 10 MG TABLET GT SCH ×3 (06:00→21:51)
[2022-07-27] MEDS: MIDODRINE HCL 10 MG TABLET GT SCH ×3 (06:01→21:51)
[2022-07-27] MEDS: OMEPRAZOLE 20 MG CAPSULE.DR GT SCH (06:01)
[2022-07-27] MEDS: METOCLOPRAMIDE HCL 5 MG TABLET GT SCH ×3 (06:01→21:51)
[2022-07-27] MEDS: HYDROGEN PEROXIDE 3% 118 ML BOTTLE TP SCH ×2 (07:38→19:02)
[2022-07-27 07:45] VITALS: TEMP 97
[2022-07-27] MEDS: PHENYTOIN 100 MG/4 ML UDC GT SCH ×2 (09:13→21:50)
[2022-07-27] MEDS: ACIDOPHILUS/BULGARICUS CHEW TAB GT SCH ×2 (09:14→21:50)
[2022-07-27] MEDS: FUROSEMIDE 10 MG/ML GT SCH (09:14)
[2022-07-27] MEDS: levETIRAcetam 500 MG/5 ML LIQUID UDC GT SCH ×2 (09:14→21:50)
[2022-07-27] MEDS: FERROUS SULFATE 330 MG/7.5 ML UDC- FOR SA ONLY GT SCH ×2 (09:14→21:50)
[2022-07-27] MEDS: POTASSIUM CHLORIDE 40 MEQ/30 ML LIQUID UDC GT SCH (09:16)
[2022-07-27] MEDS: NYSTATIN CREAM 30 GM TUBE TP SCH ×2 (09:47→21:50)
[2022-07-27] MEDS: REMEDY ESSENTIAL ZINC PASTE 113 GM TP SCH ×2 (09:47→21:51)
[2022-07-27] MEDS: TRIAMCINOLONE ACET 0.1% CREAM 15 GM TUBE TP SCH ×2 (09:47→21:50)
[2022-07-27 18:37] VITALS: O2SAT 98
[2022-07-27] MEDS: FOLIC ACID 1 MG TABLET GT SCH (21:50)
[2022-07-27] MEDS: THIAMINE HCL 100 MG TABLET GT SCH (21:50)
[2022-07-27] MEDS: CHOLECALCIFEROL 1,000 UNIT TABLET GT SCH (21:50)
[2022-07-27 22:31] VITALS: TEMP 96.6
[2022-07-28] MEDS: IPRATROPIUM BROMIDE 0.5 MG/2.5 ML NEBU NEB SCH ×5 (03:46→19:25)
[2022-07-28] MEDS: ALBUTEROL SULFATE 2.5 MG/3 ML NEBU NEB SCH ×5 (03:46→19:25)
[2022-07-28] MEDS: MAGNESIUM OXIDE 400 MG TABLET GT SCH (05:35)
[2022-07-28] MEDS: BACLOFEN 10 MG TABLET GT SCH ×3 (05:35→22:54)
[2022-07-28] MEDS: BACLOFEN 20 MG TABLET GT SCH ×3 (05:35→22:55)
[2022-07-28] MEDS: METOCLOPRAMIDE HCL 5 MG TABLET GT SCH ×3 (05:36→22:00)
[2022-07-28] MEDS: OMEPRAZOLE 20 MG CAPSULE.DR GT SCH (05:36)
[2022-07-28] MEDS: MIDODRINE HCL 10 MG TABLET GT SCH ×3 (05:43→23:00)
[2022-07-28] MEDS: HYDROGEN PEROXIDE 3% 118 ML BOTTLE TP SCH ×2 (07:19→21:00)
[2022-07-28 07:24] VITALS: TEMP 97.3
[2022-07-28 07:55] LABS: BASOPHILS % (AUTO) 0.8 % (0.0-2.0); EOSINOPHILS # (AUTO) 0.3 K/uL (0.0-0.7); EOSINOPHILS % (AUTO) 5.9 % (0.0-7.0); HEMOGLOBIN 11.5 g/dL (10.9-14.3); LYMPHOCYTES # (AUTO) 1.9 K/uL (0.8-4.8); LYMPHOCYTES % (AUTO) 39.8 % (20.5-51.5); MEAN CORPUSCULAR HEMOGLOBIN 31.4 uug (24.7-32.8); MEAN CORPUSCULAR HGB CONC 34 g/dL (32.3-35.6); MEAN CORPUSCULAR VOLUME 92.9 fL (75.5-95.3); MONOCYTES # (AUTO) 0.3 K/uL (0.1-1.30); MONOCYTES % (AUTO) 6.6 % (0.0-11.0); NEUTROPHILS # (AUTO) 2.2 K/uL (1.8-8.9); NEUTROPHILS % (AUTO) 46.9 % (38.5-71.5); PLATELET COUNT (AUTO) 217 K/uL (179-408); RED BLOOD CELL COUNT(AUTO) 3.66 MIL/uL (3.63-4.92); RED CELL DISTRIBUTION WIDTH 21.6 % (12.3-17.7); WHITE BLOOD COUNT (AUTO) 4.8 K/uL (3.8-11.8)
[2022-07-28 08:22] LABS: DIFFERENTIAL COMMENT 1
[2022-07-28 08:32] LABS: CALCIUM 8.9 mg/dL (8.5-10.1); CREATININE 0.6 mg/dL (0.6-1.3); MAGNESIUM 2.2 mg/dL (1.8-2.4); PHOSPHOROUS 4.5 mg/dL (2.5-4.9); POTASSIUM 3.5 mmol/L (3.5-5.1)
[2022-07-28] MEDS: POTASSIUM CHLORIDE 40 MEQ/30 ML LIQUID UDC GT SCH (09:29)
[2022-07-28] MEDS: FUROSEMIDE 10 MG/ML GT SCH (09:29)
[2022-07-28] MEDS: FERROUS SULFATE 330 MG/7.5 ML UDC- FOR SA ONLY GT SCH ×2 (09:29→21:00)
[2022-07-28] MEDS: TRIAMCINOLONE ACET 0.1% CREAM 15 GM TUBE TP SCH ×2 (09:29→21:00)
[2022-07-28] MEDS: PHENYTOIN 100 MG/4 ML UDC GT SCH ×2 (09:29→21:00)
[2022-07-28] MEDS: levETIRAcetam 500 MG/5 ML LIQUID UDC GT SCH ×2 (09:29→21:00)
[2022-07-28] MEDS: NYSTATIN CREAM 30 GM TUBE TP SCH ×2 (09:29→21:00)
[2022-07-28] MEDS: ACIDOPHILUS/BULGARICUS CHEW TAB GT SCH ×2 (09:29→21:00)
[2022-07-28] MEDS: REMEDY ESSENTIAL ZINC PASTE 113 GM TP SCH ×2 (09:30→21:00)
[2022-07-28 20:00] VITALS: TEMP 96
[2022-07-28] MEDS: MIRALAX 17 GM POWD.PACK GT SCH (21:00)
[2022-07-28] MEDS: THIAMINE HCL 100 MG TABLET GT SCH (21:00)
[2022-07-28] MEDS: FOLIC ACID 1 MG TABLET GT SCH (21:00)
[2022-07-28] MEDS: CHOLECALCIFEROL 1,000 UNIT TABLET GT SCH (21:00)
[2022-07-29] MEDS: IPRATROPIUM BROMIDE 0.5 MG/2.5 ML NEBU NEB SCH ×7 (00:23→23:28)
[2022-07-29] MEDS: ALBUTEROL SULFATE 2.5 MG/3 ML NEBU NEB SCH ×7 (00:23→23:28)
[2022-07-29] MEDS: BACLOFEN 20 MG TABLET GT SCH ×3 (06:00→21:50)
[2022-07-29] MEDS: OMEPRAZOLE 20 MG CAPSULE.DR GT SCH (06:00)
[2022-07-29] MEDS: BACLOFEN 10 MG TABLET GT SCH ×3 (06:00→21:50)
[2022-07-29] MEDS: MAGNESIUM OXIDE 400 MG TABLET GT SCH (06:00)
[2022-07-29] MEDS: METOCLOPRAMIDE HCL 5 MG TABLET GT SCH ×3 (06:01→21:51)
[2022-07-29] MEDS: MIDODRINE HCL 10 MG TABLET GT SCH ×3 (06:11→21:50)
[2022-07-29 07:24] VITALS: TEMP 97.1
[2022-07-29] MEDS: HYDROGEN PEROXIDE 3% 118 ML BOTTLE TP SCH ×2 (07:28→20:41)
[2022-07-29 08:32] LABS: BASOPHILS % (AUTO) 0.8 % (0.0-2.0); EOSINOPHILS # (AUTO) 0.2 K/uL (0.0-0.7); HEMATOCRIT 37.8 % (31.2-41.9); HEMOGLOBIN 12.5 g/dL (10.9-14.3); LYMPHOCYTES # (AUTO) 1.7 K/uL (0.8-4.8); LYMPHOCYTES % (AUTO) 35.3 % (20.5-51.5); MEAN CORPUSCULAR HEMOGLOBIN 31.2 uug (24.7-32.8); MEAN CORPUSCULAR HGB CONC 33 g/dL (32.3-35.6); MEAN CORPUSCULAR VOLUME 94.4 fL (75.5-95.3); MONOCYTES # (AUTO) 0.2 K/uL (0.1-1.30); MONOCYTES % (AUTO) 5.2 % (0.0-11.0); NEUTROPHILS # (AUTO) 2.5 K/uL (1.8-8.9); NEUTROPHILS % (AUTO) 53.7 % (38.5-71.5); PLATELET COUNT (AUTO) 233 K/uL (179-408); RED BLOOD CELL COUNT(AUTO) 4.01 MIL/uL (3.63-4.92); WHITE BLOOD COUNT (AUTO) 4.7 K/uL (3.8-11.8)
[2022-07-29] MEDS: FUROSEMIDE 10 MG/ML GT SCH (08:33)
[2022-07-29] MEDS: levETIRAcetam 500 MG/5 ML LIQUID UDC GT SCH ×2 (08:33→20:33)
[2022-07-29] MEDS: PHENYTOIN 100 MG/4 ML UDC GT SCH ×2 (08:33→20:31)
[2022-07-29] MEDS: TRIAMCINOLONE ACET 0.1% CREAM 15 GM TUBE TP SCH ×2 (08:33→20:35)
[2022-07-29] MEDS: ACIDOPHILUS/BULGARICUS CHEW TAB GT SCH ×2 (08:33→20:32)
[2022-07-29] MEDS: POTASSIUM CHLORIDE 40 MEQ/30 ML LIQUID UDC GT SCH (08:33)
[2022-07-29] MEDS: FERROUS SULFATE 330 MG/7.5 ML UDC- FOR SA ONLY GT SCH ×2 (08:33→20:32)
[2022-07-29] MEDS: REMEDY ESSENTIAL ZINC PASTE 113 GM TP SCH ×2 (08:33→20:36)
[2022-07-29] MEDS: NYSTATIN CREAM 30 GM TUBE TP SCH ×2 (08:33→20:36)
[2022-07-29 08:36] LABS: DIFFERENTIAL COMMENT 1
[2022-07-29 09:13] LABS: ALBUMIN 2.6 g/dL (3.4-5.0); ALKALINE PHOSPHATASE 179 U/L (50-136); ASPARTATE AMINOTRANSFERASE 23 U/L (15-37); BILIRUBIN,TOTAL 0.1 mg/dL (0.2-1.0); C-REACTIVE PROTEIN 1.8 mg/dL (0.0-0.9); CALCIUM 8.8 mg/dL (8.5-10.1); CARBON DIOXIDE 22 mmol/L (21-32); CHLORIDE 110 mmol/L (98-107); CREATININE 0.5 mg/dL (0.6-1.3); GLUCOSE 107 mg/dL (74-106); MAGNESIUM 2.3 mg/dL (1.8-2.4); PHOSPHOROUS 4.2 mg/dL (2.5-4.9); POTASSIUM 3.8 mmol/L (3.5-5.1); SODIUM SERUM 142 mmol/L (136-145); TOTAL PROTEIN, SERUM 7.5 g/dL (6.4-8.2); UREA NITROGEN, BLOOD 18 mg/dL (7-18)
[2022-07-29 10:08] LABS: ALANINE AMINOTRANSFERASE 70 U/L (14-59)
[2022-07-29 20:26] VITALS: TEMP 93.9
[2022-07-29] MEDS: FOLIC ACID 1 MG TABLET GT SCH (20:33)
[2022-07-29] MEDS: THIAMINE HCL 100 MG TABLET GT SCH (20:34)
[2022-07-29] MEDS: CHOLECALCIFEROL 1,000 UNIT TABLET GT SCH (20:35)
[2022-07-30 00:10] VITALS: TEMP 94.3
[2022-07-30] MEDS: ALBUTEROL SULFATE 2.5 MG/3 ML NEBU NEB SCH ×5 (03:20→19:08)
[2022-07-30] MEDS: IPRATROPIUM BROMIDE 0.5 MG/2.5 ML NEBU NEB SCH ×5 (03:20→19:07)
[2022-07-30 04:00] VITALS: TEMP 94.5
[2022-07-30] MEDS: MIDODRINE HCL 10 MG TABLET GT SCH ×3 (05:51→22:00)
[2022-07-30] MEDS: BACLOFEN 20 MG TABLET GT SCH ×3 (05:51→21:54)
[2022-07-30] MEDS: BACLOFEN 10 MG TABLET GT SCH ×3 (05:51→21:54)
[2022-07-30] MEDS: OMEPRAZOLE 20 MG CAPSULE.DR GT SCH (05:51)
[2022-07-30] MEDS: MAGNESIUM OXIDE 400 MG TABLET GT SCH (05:51)
[2022-07-30] MEDS: METOCLOPRAMIDE HCL 5 MG TABLET GT SCH ×3 (05:51→22:00)
[2022-07-30] MEDS: HYDROGEN PEROXIDE 3% 118 ML BOTTLE TP SCH ×2 (07:24→20:50)
[2022-07-30 07:32] VITALS: TEMP 96
[2022-07-30] MEDS: FUROSEMIDE 10 MG/ML GT SCH (09:06)
[2022-07-30] MEDS: ACIDOPHILUS/BULGARICUS CHEW TAB GT SCH ×2 (09:06→20:30)
[2022-07-30] MEDS: FERROUS SULFATE 330 MG/7.5 ML UDC- FOR SA ONLY GT SCH ×2 (09:06→20:29)
[2022-07-30] MEDS: PHENYTOIN 100 MG/4 ML UDC GT SCH ×2 (09:06→20:28)
[2022-07-30] MEDS: levETIRAcetam 500 MG/5 ML LIQUID UDC GT SCH ×2 (09:06→20:30)
[2022-07-30] MEDS: POTASSIUM CHLORIDE 40 MEQ/30 ML LIQUID UDC GT SCH (09:06)
[2022-07-30] MEDS: TRIAMCINOLONE ACET 0.1% CREAM 15 GM TUBE TP SCH ×2 (09:07→20:33)
[2022-07-30] MEDS: REMEDY ESSENTIAL ZINC PASTE 113 GM TP SCH ×2 (09:07→20:34)
[2022-07-30] MEDS: NYSTATIN CREAM 30 GM TUBE TP SCH ×2 (09:07→20:34)
[2022-07-30 20:00] VITALS: TEMP 97.7
[2022-07-30] MEDS: FOLIC ACID 1 MG TABLET GT SCH (20:30)
[2022-07-30] MEDS: MIRALAX 17 GM POWD.PACK GT SCH (20:31)
[2022-07-30] MEDS: THIAMINE HCL 100 MG TABLET GT SCH (20:32)
[2022-07-30] MEDS: CHOLECALCIFEROL 1,000 UNIT TABLET GT SCH (20:32)
[2022-07-31] MEDS: ALBUTEROL SULFATE 2.5 MG/3 ML NEBU NEB SCH ×7 (00:29→22:58)
[2022-07-31] MEDS: IPRATROPIUM BROMIDE 0.5 MG/2.5 ML NEBU NEB SCH ×7 (00:29→22:58)
[2022-07-31] MEDS: VITAL AF 1.2 1,000 ML LIQUID GT PRN (03:00)
[2022-07-31] MEDS: MAGNESIUM OXIDE 400 MG TABLET GT SCH (05:52)
[2022-07-31] MEDS: METOCLOPRAMIDE HCL 5 MG TABLET GT SCH ×3 (05:52→21:51)
[2022-07-31] MEDS: BACLOFEN 10 MG TABLET GT SCH ×3 (05:52→21:50)
[2022-07-31] MEDS: MIDODRINE HCL 10 MG TABLET GT SCH ×3 (05:52→21:51)
[2022-07-31] MEDS: OMEPRAZOLE 20 MG CAPSULE.DR GT SCH (05:52)
[2022-07-31] MEDS: BACLOFEN 20 MG TABLET GT SCH ×3 (05:52→21:50)
[2022-07-31] MEDS: HYDROGEN PEROXIDE 3% 118 ML BOTTLE TP SCH ×2 (07:34→19:01)
[2022-07-31 07:58] VITALS: TEMP 96
[2022-07-31] MEDS: PHENYTOIN 100 MG/4 ML UDC GT SCH ×2 (08:37→21:44)
[2022-07-31] MEDS: ACIDOPHILUS/BULGARICUS CHEW TAB GT SCH ×2 (08:37→21:45)
[2022-07-31] MEDS: FUROSEMIDE 10 MG/ML GT SCH (08:37)
[2022-07-31] MEDS: POTASSIUM CHLORIDE 40 MEQ/30 ML LIQUID UDC GT SCH (08:37)
[2022-07-31] MEDS: levETIRAcetam 500 MG/5 ML LIQUID UDC GT SCH ×2 (08:37→21:47)
[2022-07-31] MEDS: TRIAMCINOLONE ACET 0.1% CREAM 15 GM TUBE TP SCH ×2 (08:37→21:50)
[2022-07-31] MEDS: FERROUS SULFATE 330 MG/7.5 ML UDC- FOR SA ONLY GT SCH ×2 (08:37→21:45)
[2022-07-31] MEDS: REMEDY ESSENTIAL ZINC PASTE 113 GM TP SCH ×2 (08:38→21:50)
[2022-07-31] MEDS: NYSTATIN CREAM 30 GM TUBE TP SCH ×2 (08:38→21:50)
[2022-07-31 20:00] VITALS: TEMP 97.7
[2022-07-31] MEDS: FOLIC ACID 1 MG TABLET GT SCH (21:46)
[2022-07-31] MEDS: THIAMINE HCL 100 MG TABLET GT SCH (21:49)
[2022-07-31] MEDS: CHOLECALCIFEROL 1,000 UNIT TABLET GT SCH (21:50)
[2022-08-01] MEDS: VITAL AF 1.2 1,000 ML LIQUID GT PRN (03:00)
[2022-08-01] MEDS: ALBUTEROL SULFATE 2.5 MG/3 ML NEBU NEB SCH ×6 (03:46→23:01)
[2022-08-01] MEDS: IPRATROPIUM BROMIDE 0.5 MG/2.5 ML NEBU NEB SCH ×6 (03:46→23:00)
[2022-08-01] MEDS: OMEPRAZOLE 20 MG CAPSULE.DR GT SCH (05:58)
[2022-08-01] MEDS: BACLOFEN 10 MG TABLET GT SCH ×3 (05:58→21:16)
[2022-08-01] MEDS: METOCLOPRAMIDE HCL 5 MG TABLET GT SCH ×3 (05:58→21:16)
[2022-08-01] MEDS: MIDODRINE HCL 10 MG TABLET GT SCH ×3 (05:58→21:16)
[2022-08-01] MEDS: MAGNESIUM OXIDE 400 MG TABLET GT SCH (05:58)
[2022-08-01] MEDS: BACLOFEN 20 MG TABLET GT SCH ×3 (05:58→21:16)
[2022-08-01] MEDS: HYDROGEN PEROXIDE 3% 118 ML BOTTLE TP SCH ×2 (07:17→19:15)
[2022-08-01] MEDS: REMEDY ESSENTIAL ZINC PASTE 113 GM TP SCH ×2 (09:23→21:16)
[2022-08-01] MEDS: FUROSEMIDE 10 MG/ML GT SCH (09:23)
[2022-08-01] MEDS: PHENYTOIN 100 MG/4 ML UDC GT SCH ×2 (09:23→21:14)
[2022-08-01] MEDS: TRIAMCINOLONE ACET 0.1% CREAM 15 GM TUBE TP SCH ×2 (09:23→21:16)
[2022-08-01] MEDS: POTASSIUM CHLORIDE 40 MEQ/30 ML LIQUID UDC GT SCH (09:23)
[2022-08-01] MEDS: levETIRAcetam 500 MG/5 ML LIQUID UDC GT SCH ×2 (09:23→21:14)
[2022-08-01] MEDS: ACIDOPHILUS/BULGARICUS CHEW TAB GT SCH ×2 (09:23→21:14)
[2022-08-01] MEDS: NYSTATIN CREAM 30 GM TUBE TP SCH ×2 (09:23→21:16)
[2022-08-01] MEDS: FERROUS SULFATE 330 MG/7.5 ML UDC- FOR SA ONLY GT SCH ×2 (09:23→21:14)
[2022-08-01 20:43] VITALS: TEMP 96
[2022-08-01] MEDS: FOLIC ACID 1 MG TABLET GT SCH (21:14)
[2022-08-01] MEDS: THIAMINE HCL 100 MG TABLET GT SCH (21:15)
[2022-08-01] MEDS: MIRALAX 17 GM POWD.PACK GT SCH (21:15)
[2022-08-01] MEDS: CHOLECALCIFEROL 1,000 UNIT TABLET GT SCH (21:15)
[2022-08-02] MEDS: IPRATROPIUM BROMIDE 0.5 MG/2.5 ML NEBU NEB SCH ×6 (03:41→23:25)
[2022-08-02] MEDS: ALBUTEROL SULFATE 2.5 MG/3 ML NEBU NEB SCH ×6 (03:41→23:26)
[2022-08-02] MEDS: OMEPRAZOLE 20 MG CAPSULE.DR GT SCH (06:16)
[2022-08-02] MEDS: MAGNESIUM OXIDE 400 MG TABLET GT SCH (06:16)
[2022-08-02] MEDS: METOCLOPRAMIDE HCL 5 MG TABLET GT SCH ×3 (06:16→22:15)
[2022-08-02] MEDS: BACLOFEN 20 MG TABLET GT SCH ×3 (06:16→22:14)
[2022-08-02] MEDS: MIDODRINE HCL 10 MG TABLET GT SCH ×3 (06:16→22:15)
[2022-08-02] MEDS: BACLOFEN 10 MG TABLET GT SCH ×3 (06:16→22:14)
[2022-08-02 07:38] VITALS: TEMP 96.9
[2022-08-02] MEDS: HYDROGEN PEROXIDE 3% 118 ML BOTTLE TP SCH ×2 (08:22→19:09)
[2022-08-02] MEDS: PHENYTOIN 100 MG/4 ML UDC GT SCH ×2 (08:23→21:00)
[2022-08-02] MEDS: ACIDOPHILUS/BULGARICUS CHEW TAB GT SCH ×2 (08:24→21:00)
[2022-08-02] MEDS: FUROSEMIDE 10 MG/ML GT SCH (08:24)
[2022-08-02] MEDS: FERROUS SULFATE 330 MG/7.5 ML UDC- FOR SA ONLY GT SCH ×2 (08:24→21:00)
[2022-08-02] MEDS: POTASSIUM CHLORIDE 40 MEQ/30 ML LIQUID UDC GT SCH (08:25)
[2022-08-02] MEDS: levETIRAcetam 500 MG/5 ML LIQUID UDC GT SCH ×2 (08:25→21:00)
[2022-08-02] MEDS: TRIAMCINOLONE ACET 0.1% CREAM 15 GM TUBE TP SCH ×2 (08:26→21:00)
[2022-08-02] MEDS: REMEDY ESSENTIAL ZINC PASTE 113 GM TP SCH ×2 (08:27→22:14)
[2022-08-02] MEDS: NYSTATIN CREAM 30 GM TUBE TP SCH ×2 (08:27→21:00)
[2022-08-02 20:24] VITALS: TEMP 96.4
[2022-08-02] MEDS: CHOLECALCIFEROL 1,000 UNIT TABLET GT SCH (21:00)
[2022-08-02] MEDS: THIAMINE HCL 100 MG TABLET GT SCH (21:00)
[2022-08-02] MEDS: FOLIC ACID 1 MG TABLET GT SCH (21:00)
[2022-08-03] MEDS: VITAL AF 1.2 1,000 ML LIQUID GT PRN (02:47)
[2022-08-03] MEDS: IPRATROPIUM BROMIDE 0.5 MG/2.5 ML NEBU NEB SCH ×5 (03:12→19:03)
[2022-08-03] MEDS: ALBUTEROL SULFATE 2.5 MG/3 ML NEBU NEB SCH ×5 (03:12→19:03)
[2022-08-03] MEDS: BACLOFEN 20 MG TABLET GT SCH ×3 (06:22→21:05)
[2022-08-03] MEDS: BACLOFEN 10 MG TABLET GT SCH ×3 (06:22→21:05)
[2022-08-03] MEDS: MAGNESIUM OXIDE 400 MG TABLET GT SCH (06:22)
[2022-08-03] MEDS: METOCLOPRAMIDE HCL 5 MG TABLET GT SCH ×3 (06:25→21:06)
[2022-08-03] MEDS: OMEPRAZOLE 20 MG CAPSULE.DR GT SCH (06:25)
[2022-08-03] MEDS: MIDODRINE HCL 10 MG TABLET GT SCH ×3 (06:25→21:06)
[2022-08-03 08:00] VITALS: TEMP 97
[2022-08-03] MEDS: PHENYTOIN 100 MG/4 ML UDC GT SCH ×2 (08:38→21:02)
[2022-08-03] MEDS: levETIRAcetam 500 MG/5 ML LIQUID UDC GT SCH ×2 (08:43→21:05)
[2022-08-03] MEDS: ACIDOPHILUS/BULGARICUS CHEW TAB GT SCH ×2 (08:43→21:03)
[2022-08-03] MEDS: FUROSEMIDE 10 MG/ML GT SCH (08:43)
[2022-08-03] MEDS: FERROUS SULFATE 330 MG/7.5 ML UDC- FOR SA ONLY GT SCH ×2 (08:43→21:03)
[2022-08-03] MEDS: NYSTATIN CREAM 30 GM TUBE TP SCH ×2 (08:44→21:05)
[2022-08-03] MEDS: REMEDY ESSENTIAL ZINC PASTE 113 GM TP SCH ×2 (08:44→21:05)
[2022-08-03] MEDS: TRIAMCINOLONE ACET 0.1% CREAM 15 GM TUBE TP SCH ×2 (08:44→21:05)
[2022-08-03] MEDS: POTASSIUM CHLORIDE 40 MEQ/30 ML LIQUID UDC GT SCH (08:44)
[2022-08-03] MEDS: HYDROGEN PEROXIDE 3% 118 ML BOTTLE TP SCH ×2 (09:16→19:03)
[2022-08-03 20:16] VITALS: TEMP 97.3
[2022-08-03] MEDS: FOLIC ACID 1 MG TABLET GT SCH (21:04)
[2022-08-03] MEDS: THIAMINE HCL 100 MG TABLET GT SCH (21:05)
[2022-08-03] MEDS: CHOLECALCIFEROL 1,000 UNIT TABLET GT SCH (21:05)
[2022-08-04] MEDS: ALBUTEROL SULFATE 2.5 MG/3 ML NEBU NEB SCH ×7 (00:01→23:50)
[2022-08-04] MEDS: IPRATROPIUM BROMIDE 0.5 MG/2.5 ML NEBU NEB SCH ×7 (00:01→23:50)
[2022-08-04] MEDS: BACLOFEN 10 MG TABLET GT SCH ×3 (05:12→21:58)
[2022-08-04] MEDS: MIDODRINE HCL 10 MG TABLET GT SCH ×3 (05:12→21:58)
[2022-08-04] MEDS: MAGNESIUM OXIDE 400 MG TABLET GT SCH (05:12)
[2022-08-04] MEDS: OMEPRAZOLE 20 MG CAPSULE.DR GT SCH (05:12)
[2022-08-04] MEDS: BACLOFEN 20 MG TABLET GT SCH ×3 (05:12→21:58)
[2022-08-04] MEDS: METOCLOPRAMIDE HCL 5 MG TABLET GT SCH ×3 (05:12→21:58)
[2022-08-04 07:30] VITALS: TEMP 96.9
[2022-08-04] MEDS: HYDROGEN PEROXIDE 3% 118 ML BOTTLE TP SCH ×2 (08:21→21:34)
[2022-08-04] MEDS: ACIDOPHILUS/BULGARICUS CHEW TAB GT SCH ×2 (09:42→20:24)
[2022-08-04] MEDS: PHENYTOIN 100 MG/4 ML UDC GT SCH ×2 (09:42→20:24)
[2022-08-04] MEDS: FERROUS SULFATE 330 MG/7.5 ML UDC- FOR SA ONLY GT SCH ×2 (09:42→20:24)
[2022-08-04] MEDS: FUROSEMIDE 10 MG/ML GT SCH (09:42)
[2022-08-04] MEDS: REMEDY ESSENTIAL ZINC PASTE 113 GM TP SCH ×2 (09:43→20:25)
[2022-08-04] MEDS: NYSTATIN CREAM 30 GM TUBE TP SCH ×2 (09:43→20:25)
[2022-08-04] MEDS: TRIAMCINOLONE ACET 0.1% CREAM 15 GM TUBE TP SCH ×2 (09:43→20:25)
[2022-08-04] MEDS: POTASSIUM CHLORIDE 40 MEQ/30 ML LIQUID UDC GT SCH (09:43)
[2022-08-04] MEDS: levETIRAcetam 500 MG/5 ML LIQUID UDC GT SCH ×2 (09:43→20:24)
[2022-08-04 19:55] VITALS: TEMP 97.2
[2022-08-04] MEDS: FOLIC ACID 1 MG TABLET GT SCH (20:24)
[2022-08-04] MEDS: MIRALAX 17 GM POWD.PACK GT SCH (20:24)
[2022-08-04] MEDS: THIAMINE HCL 100 MG TABLET GT SCH (20:24)
[2022-08-04] MEDS: CHOLECALCIFEROL 1,000 UNIT TABLET GT SCH (20:25)
[2022-08-05] MEDS: ALBUTEROL SULFATE 2.5 MG/3 ML NEBU NEB SCH ×6 (03:43→23:49)
[2022-08-05] MEDS: IPRATROPIUM BROMIDE 0.5 MG/2.5 ML NEBU NEB SCH ×6 (03:43→23:49)
[2022-08-05] MEDS: OMEPRAZOLE 20 MG CAPSULE.DR GT SCH (05:31)
[2022-08-05] MEDS: BACLOFEN 20 MG TABLET GT SCH ×3 (05:31→21:26)
[2022-08-05] MEDS: BACLOFEN 10 MG TABLET GT SCH ×3 (05:31→21:26)
[2022-08-05] MEDS: METOCLOPRAMIDE HCL 5 MG TABLET GT SCH ×3 (05:31→21:27)
[2022-08-05] MEDS: MIDODRINE HCL 10 MG TABLET GT SCH ×3 (05:31→21:27)
[2022-08-05] MEDS: MAGNESIUM OXIDE 400 MG TABLET GT SCH (05:31)
[2022-08-05 07:20] VITALS: TEMP 97.9
[2022-08-05] MEDS: HYDROGEN PEROXIDE 3% 118 ML BOTTLE TP SCH ×2 (07:55→21:19)
[2022-08-05] MEDS: PHENYTOIN 100 MG/4 ML UDC GT SCH ×2 (09:33→20:27)
[2022-08-05] MEDS: ACIDOPHILUS/BULGARICUS CHEW TAB GT SCH ×2 (09:35→20:28)
[2022-08-05] MEDS: FERROUS SULFATE 330 MG/7.5 ML UDC- FOR SA ONLY GT SCH ×2 (09:35→20:28)
[2022-08-05] MEDS: FUROSEMIDE 10 MG/ML GT SCH (09:35)
[2022-08-05] MEDS: POTASSIUM CHLORIDE 40 MEQ/30 ML LIQUID UDC GT SCH (09:37)
[2022-08-05] MEDS: levETIRAcetam 500 MG/5 ML LIQUID UDC GT SCH ×2 (09:37→20:30)
[2022-08-05] MEDS: TRIAMCINOLONE ACET 0.1% CREAM 15 GM TUBE TP SCH ×2 (09:38→20:31)
[2022-08-05] MEDS: NYSTATIN CREAM 30 GM TUBE TP SCH ×2 (09:39→20:31)
[2022-08-05] MEDS: REMEDY ESSENTIAL ZINC PASTE 113 GM TP SCH ×2 (09:39→20:31)
[2022-08-05 20:11] VITALS: TEMP 98.4
[2022-08-05] MEDS: FOLIC ACID 1 MG TABLET GT SCH (20:29)
[2022-08-05] MEDS: THIAMINE HCL 100 MG TABLET GT SCH (20:30)
[2022-08-05] MEDS: CHOLECALCIFEROL 1,000 UNIT TABLET GT SCH (20:31)
[2022-08-06] MEDS: ALBUTEROL SULFATE 2.5 MG/3 ML NEBU NEB SCH ×6 (03:22→23:23)
[2022-08-06] MEDS: IPRATROPIUM BROMIDE 0.5 MG/2.5 ML NEBU NEB SCH ×6 (03:22→23:23)
[2022-08-06] MEDS: VITAL AF 1.2 1,000 ML LIQUID GT PRN (03:31)
[2022-08-06] MEDS: MIDODRINE HCL 10 MG TABLET GT SCH ×3 (06:10→22:00)
[2022-08-06] MEDS: METOCLOPRAMIDE HCL 5 MG TABLET GT SCH ×3 (06:10→22:00)
[2022-08-06] MEDS: BACLOFEN 20 MG TABLET GT SCH ×3 (06:10→22:00)
[2022-08-06] MEDS: OMEPRAZOLE 20 MG CAPSULE.DR GT SCH (06:10)
[2022-08-06] MEDS: BACLOFEN 10 MG TABLET GT SCH ×3 (06:10→22:00)
[2022-08-06] MEDS: MAGNESIUM OXIDE 400 MG TABLET GT SCH (06:10)
[2022-08-06 07:35] VITALS: TEMP 97.5
[2022-08-06] MEDS: HYDROGEN PEROXIDE 3% 118 ML BOTTLE TP SCH ×2 (08:54→20:58)
[2022-08-06] MEDS: FUROSEMIDE 10 MG/ML GT SCH (09:18)
[2022-08-06] MEDS: ACIDOPHILUS/BULGARICUS CHEW TAB GT SCH ×2 (09:18→20:52)
[2022-08-06] MEDS: PHENYTOIN 100 MG/4 ML UDC GT SCH ×2 (09:18→20:52)
[2022-08-06] MEDS: FERROUS SULFATE 330 MG/7.5 ML UDC- FOR SA ONLY GT SCH ×2 (09:18→20:52)
[2022-08-06] MEDS: TRIAMCINOLONE ACET 0.1% CREAM 15 GM TUBE TP SCH ×2 (09:19→20:52)
[2022-08-06] MEDS: NYSTATIN CREAM 30 GM TUBE TP SCH ×2 (09:19→20:52)
[2022-08-06] MEDS: POTASSIUM CHLORIDE 40 MEQ/30 ML LIQUID UDC GT SCH (09:19)
[2022-08-06] MEDS: REMEDY ESSENTIAL ZINC PASTE 113 GM TP SCH ×2 (09:19→20:52)
[2022-08-06] MEDS: levETIRAcetam 500 MG/5 ML LIQUID UDC GT SCH ×2 (09:19→20:52)
[2022-08-06 19:58] VITALS: TEMP 97.7
[2022-08-06 20:00] VITALS: TEMP 97.7
[2022-08-06] MEDS: THIAMINE HCL 100 MG TABLET GT SCH (20:52)
[2022-08-06] MEDS: CHOLECALCIFEROL 1,000 UNIT TABLET GT SCH (20:52)
[2022-08-06] MEDS: FOLIC ACID 1 MG TABLET GT SCH (20:52)
[2022-08-06] MEDS: MIRALAX 17 GM POWD.PACK GT SCH (20:52)
[2022-08-07] MEDS: ALBUTEROL SULFATE 2.5 MG/3 ML NEBU NEB SCH ×6 (03:09→23:03)
[2022-08-07] MEDS: IPRATROPIUM BROMIDE 0.5 MG/2.5 ML NEBU NEB SCH ×6 (03:09→23:03)
[2022-08-07] MEDS: BACLOFEN 10 MG TABLET GT SCH ×3 (06:03→21:47)
[2022-08-07] MEDS: MAGNESIUM OXIDE 400 MG TABLET GT SCH (06:03)
[2022-08-07] MEDS: BACLOFEN 20 MG TABLET GT SCH ×3 (06:03→21:47)
[2022-08-07] MEDS: MIDODRINE HCL 10 MG TABLET GT SCH ×3 (06:04→21:47)
[2022-08-07] MEDS: OMEPRAZOLE 20 MG CAPSULE.DR GT SCH (06:04)
[2022-08-07] MEDS: METOCLOPRAMIDE HCL 5 MG TABLET GT SCH ×3 (06:04→21:47)
[2022-08-07] MEDS: PHENYTOIN 100 MG/4 ML UDC GT SCH ×2 (08:58→20:51)
[2022-08-07] MEDS: FERROUS SULFATE 330 MG/7.5 ML UDC- FOR SA ONLY GT SCH ×2 (09:00→20:51)
[2022-08-07] MEDS: ACIDOPHILUS/BULGARICUS CHEW TAB GT SCH ×2 (09:00→20:53)
[2022-08-07] MEDS: FUROSEMIDE 10 MG/ML GT SCH (09:00)
[2022-08-07] MEDS: POTASSIUM CHLORIDE 40 MEQ/30 ML LIQUID UDC GT SCH (09:03)
[2022-08-07] MEDS: levETIRAcetam 500 MG/5 ML LIQUID UDC GT SCH ×2 (09:03→20:53)
[2022-08-07] MEDS: REMEDY ESSENTIAL ZINC PASTE 113 GM TP SCH ×2 (09:03→20:54)
[2022-08-07] MEDS: HYDROGEN PEROXIDE 3% 118 ML BOTTLE TP SCH ×2 (09:20→19:04)
[2022-08-07 20:00] VITALS: TEMP 97.8
[2022-08-07] MEDS: FOLIC ACID 1 MG TABLET GT SCH (20:53)
[2022-08-07] MEDS: THIAMINE HCL 100 MG TABLET GT SCH (20:53)
[2022-08-07] MEDS: CHOLECALCIFEROL 1,000 UNIT TABLET GT SCH (20:54)
[2022-08-08] MEDS: IPRATROPIUM BROMIDE 0.5 MG/2.5 ML NEBU NEB SCH ×6 (04:06→23:01)
[2022-08-08] MEDS: ALBUTEROL SULFATE 2.5 MG/3 ML NEBU NEB SCH ×6 (04:06→23:01)
[2022-08-08] MEDS: BACLOFEN 20 MG TABLET GT SCH ×3 (05:32→21:16)
[2022-08-08] MEDS: BACLOFEN 10 MG TABLET GT SCH ×3 (05:32→21:15)
[2022-08-08] MEDS: MAGNESIUM OXIDE 400 MG TABLET GT SCH (05:32)
[2022-08-08] MEDS: OMEPRAZOLE 20 MG CAPSULE.DR GT SCH (05:33)
[2022-08-08] MEDS: MIDODRINE HCL 10 MG TABLET GT SCH ×3 (05:33→21:16)
[2022-08-08] MEDS: METOCLOPRAMIDE HCL 5 MG TABLET GT SCH ×3 (05:33→21:16)
[2022-08-08 07:39] VITALS: TEMP 97
[2022-08-08] MEDS: PHENYTOIN 100 MG/4 ML UDC GT SCH ×2 (08:54→21:12)
[2022-08-08] MEDS: FUROSEMIDE 10 MG/ML GT SCH (08:56)
[2022-08-08] MEDS: ACIDOPHILUS/BULGARICUS CHEW TAB GT SCH ×2 (08:56→21:13)
[2022-08-08] MEDS: FERROUS SULFATE 330 MG/7.5 ML UDC- FOR SA ONLY GT SCH ×2 (08:56→21:12)
[2022-08-08] MEDS: levETIRAcetam 500 MG/5 ML LIQUID UDC GT SCH ×2 (09:01→21:14)
[2022-08-08] MEDS: POTASSIUM CHLORIDE 40 MEQ/30 ML LIQUID UDC GT SCH (09:02)
[2022-08-08] MEDS: REMEDY ESSENTIAL ZINC PASTE 113 GM TP SCH ×2 (09:03→21:15)
[2022-08-08] MEDS: HYDROGEN PEROXIDE 3% 118 ML BOTTLE TP SCH ×2 (09:20→19:12)
[2022-08-08 20:00] VITALS: TEMP 97.7
[2022-08-08] MEDS: FOLIC ACID 1 MG TABLET GT SCH (21:13)
[2022-08-08] MEDS: MIRALAX 17 GM POWD.PACK GT SCH (21:14)
[2022-08-08] MEDS: CHOLECALCIFEROL 1,000 UNIT TABLET GT SCH (21:15)
[2022-08-08] MEDS: THIAMINE HCL 100 MG TABLET GT SCH (21:15)
[2022-08-09] MEDS: ALBUTEROL SULFATE 2.5 MG/3 ML NEBU NEB SCH ×6 (03:53→23:21)
[2022-08-09] MEDS: IPRATROPIUM BROMIDE 0.5 MG/2.5 ML NEBU NEB SCH ×6 (03:53→23:21)
[2022-08-09] MEDS: MAGNESIUM OXIDE 400 MG TABLET GT SCH (05:06)
[2022-08-09] MEDS: BACLOFEN 20 MG TABLET GT SCH ×3 (05:06→21:31)
[2022-08-09] MEDS: BACLOFEN 10 MG TABLET GT SCH ×3 (05:06→21:31)
[2022-08-09] MEDS: OMEPRAZOLE 20 MG CAPSULE.DR GT SCH (05:07)
[2022-08-09] MEDS: MIDODRINE HCL 10 MG TABLET GT SCH ×3 (05:07→21:31)
[2022-08-09] MEDS: METOCLOPRAMIDE HCL 5 MG TABLET GT SCH ×3 (05:07→21:31)
[2022-08-09] MEDS: HYDROGEN PEROXIDE 3% 118 ML BOTTLE TP SCH ×2 (07:07→19:01)
[2022-08-09] MEDS: VITAL AF 1.2 1,000 ML LIQUID GT PRN (07:23)
[2022-08-09 08:00] VITALS: TEMP 96
[2022-08-09] MEDS: PHENYTOIN 100 MG/4 ML UDC GT SCH ×2 (09:17→21:26)
[2022-08-09] MEDS: FERROUS SULFATE 330 MG/7.5 ML UDC- FOR SA ONLY GT SCH ×2 (09:17→21:27)
[2022-08-09] MEDS: ACIDOPHILUS/BULGARICUS CHEW TAB GT SCH ×2 (09:18→21:27)
[2022-08-09] MEDS: FUROSEMIDE 10 MG/ML GT SCH (09:18)
[2022-08-09] MEDS: levETIRAcetam 500 MG/5 ML LIQUID UDC GT SCH ×2 (09:19→21:30)
[2022-08-09] MEDS: REMEDY ESSENTIAL ZINC PASTE 113 GM TP SCH ×2 (09:20→21:31)
[2022-08-09] MEDS: POTASSIUM CHLORIDE 40 MEQ/30 ML LIQUID UDC GT SCH (09:20)
[2022-08-09 20:00] VITALS: TEMP 97.7
[2022-08-09] MEDS: FOLIC ACID 1 MG TABLET GT SCH (21:27)
[2022-08-09] MEDS: THIAMINE HCL 100 MG TABLET GT SCH (21:30)
[2022-08-09] MEDS: CHOLECALCIFEROL 1,000 UNIT TABLET GT SCH (21:30)
[2022-08-10] MEDS: IPRATROPIUM BROMIDE 0.5 MG/2.5 ML NEBU NEB SCH ×6 (03:09→23:20)
[2022-08-10] MEDS: ALBUTEROL SULFATE 2.5 MG/3 ML NEBU NEB SCH ×6 (03:09→23:20)
[2022-08-10] MEDS: OMEPRAZOLE 20 MG CAPSULE.DR GT SCH (05:26)
[2022-08-10] MEDS: BACLOFEN 10 MG TABLET GT SCH ×3 (05:26→22:29)
[2022-08-10] MEDS: BACLOFEN 20 MG TABLET GT SCH ×3 (05:26→22:29)
[2022-08-10] MEDS: METOCLOPRAMIDE HCL 5 MG TABLET GT SCH ×3 (05:26→22:29)
[2022-08-10] MEDS: MAGNESIUM OXIDE 400 MG TABLET GT SCH (05:26)
[2022-08-10] MEDS: MIDODRINE HCL 10 MG TABLET GT SCH ×3 (05:40→22:29)
[2022-08-10] MEDS: HYDROGEN PEROXIDE 3% 118 ML BOTTLE TP SCH ×2 (06:00→19:01)
[2022-08-10 08:02] VITALS: TEMP 96
[2022-08-10] MEDS: PHENYTOIN 100 MG/4 ML UDC GT SCH ×2 (08:37→20:21)
[2022-08-10] MEDS: levETIRAcetam 500 MG/5 ML LIQUID UDC GT SCH ×2 (08:38→20:22)
[2022-08-10] MEDS: ACIDOPHILUS/BULGARICUS CHEW TAB GT SCH ×2 (08:38→20:21)
[2022-08-10] MEDS: FUROSEMIDE 10 MG/ML GT SCH (08:38)
[2022-08-10] MEDS: FERROUS SULFATE 330 MG/7.5 ML UDC- FOR SA ONLY GT SCH ×2 (08:38→20:21)
[2022-08-10] MEDS: REMEDY ESSENTIAL ZINC PASTE 113 GM TP SCH ×2 (08:39→20:22)
[2022-08-10] MEDS: POTASSIUM CHLORIDE 40 MEQ/30 ML LIQUID UDC GT SCH (08:39)
[2022-08-10] MEDS: VITAL AF 1.2 1,000 ML LIQUID GT PRN (12:27)
[2022-08-10 20:12] VITALS: TEMP 97.2
[2022-08-10] MEDS: CHOLECALCIFEROL 1,000 UNIT TABLET GT SCH (20:22)
[2022-08-10] MEDS: THIAMINE HCL 100 MG TABLET GT SCH (20:22)
[2022-08-10] MEDS: FOLIC ACID 1 MG TABLET GT SCH (20:22)
[2022-08-11] MEDS: IPRATROPIUM BROMIDE 0.5 MG/2.5 ML NEBU NEB SCH ×6 (03:30→23:32)
[2022-08-11] MEDS: ALBUTEROL SULFATE 2.5 MG/3 ML NEBU NEB SCH ×6 (03:31→23:32)
[2022-08-11] MEDS: MIDODRINE HCL 10 MG TABLET GT SCH ×3 (05:25→21:02)
[2022-08-11] MEDS: METOCLOPRAMIDE HCL 5 MG TABLET GT SCH ×3 (05:25→21:02)
[2022-08-11] MEDS: MAGNESIUM OXIDE 400 MG TABLET GT SCH (05:25)
[2022-08-11] MEDS: OMEPRAZOLE 20 MG CAPSULE.DR GT SCH (05:25)
[2022-08-11] MEDS: BACLOFEN 20 MG TABLET GT SCH ×3 (05:25→21:01)
[2022-08-11] MEDS: BACLOFEN 10 MG TABLET GT SCH ×3 (05:25→21:01)
[2022-08-11 07:29] VITALS: TEMP 96.9
[2022-08-11] MEDS: HYDROGEN PEROXIDE 3% 118 ML BOTTLE TP SCH ×2 (09:00→19:10)
[2022-08-11] MEDS: FUROSEMIDE 10 MG/ML GT SCH (09:08)
[2022-08-11] MEDS: PHENYTOIN 100 MG/4 ML UDC GT SCH ×2 (09:08→20:57)
[2022-08-11] MEDS: levETIRAcetam 500 MG/5 ML LIQUID UDC GT SCH ×2 (09:08→21:00)
[2022-08-11] MEDS: FERROUS SULFATE 330 MG/7.5 ML UDC- FOR SA ONLY GT SCH ×2 (09:08→20:57)
[2022-08-11] MEDS: ACIDOPHILUS/BULGARICUS CHEW TAB GT SCH ×2 (09:08→20:57)
[2022-08-11] MEDS: REMEDY ESSENTIAL ZINC PASTE 113 GM TP SCH ×2 (09:09→21:01)
[2022-08-11] MEDS: POTASSIUM CHLORIDE 40 MEQ/30 ML LIQUID UDC GT SCH (09:09)
[2022-08-11 20:00] VITALS: TEMP 97.8
[2022-08-11] MEDS: FOLIC ACID 1 MG TABLET GT SCH (20:57)
[2022-08-11] MEDS: MIRALAX 17 GM POWD.PACK GT SCH (21:00)
[2022-08-11] MEDS: THIAMINE HCL 100 MG TABLET GT SCH (21:00)
[2022-08-11] MEDS: CHOLECALCIFEROL 1,000 UNIT TABLET GT SCH (21:01)
[2022-08-12] MEDS: VITAL AF 1.2 1,000 ML LIQUID GT PRN
[2022-08-12] MEDS: IPRATROPIUM BROMIDE 0.5 MG/2.5 ML NEBU NEB SCH ×6 (03:05→23:22)
[2022-08-12] MEDS: ALBUTEROL SULFATE 2.5 MG/3 ML NEBU NEB SCH ×6 (03:05→23:22)
[2022-08-12] MEDS: METOCLOPRAMIDE HCL 5 MG TABLET GT SCH ×3 (05:15→22:01)
[2022-08-12] MEDS: MIDODRINE HCL 10 MG TABLET GT SCH ×3 (05:15→22:01)
[2022-08-12] MEDS: OMEPRAZOLE 20 MG CAPSULE.DR GT SCH (05:15)
[2022-08-12] MEDS: BACLOFEN 20 MG TABLET GT SCH ×3 (05:15→22:01)
[2022-08-12] MEDS: BACLOFEN 10 MG TABLET GT SCH ×3 (05:15→22:01)
[2022-08-12] MEDS: MAGNESIUM OXIDE 400 MG TABLET GT SCH (05:15)
[2022-08-12 07:15] VITALS: TEMP 96.8
[2022-08-12] MEDS: HYDROGEN PEROXIDE 3% 118 ML BOTTLE TP SCH ×2 (07:34→19:13)
[2022-08-12] MEDS: ACIDOPHILUS/BULGARICUS CHEW TAB GT SCH ×2 (09:24→20:52)
[2022-08-12] MEDS: PHENYTOIN 100 MG/4 ML UDC GT SCH ×2 (09:24→20:52)
[2022-08-12] MEDS: FUROSEMIDE 10 MG/ML GT SCH (09:24)
[2022-08-12] MEDS: FERROUS SULFATE 330 MG/7.5 ML UDC- FOR SA ONLY GT SCH ×2 (09:24→20:52)
[2022-08-12] MEDS: levETIRAcetam 500 MG/5 ML LIQUID UDC GT SCH ×2 (09:25→20:52)
[2022-08-12] MEDS: POTASSIUM CHLORIDE 40 MEQ/30 ML LIQUID UDC GT SCH (09:29)
[2022-08-12] MEDS: REMEDY ESSENTIAL ZINC PASTE 113 GM TP SCH ×2 (09:30→20:53)
[2022-08-12 19:53] VITALS: TEMP 97.6
[2022-08-12] MEDS: THIAMINE HCL 100 MG TABLET GT SCH (20:52)
[2022-08-12] MEDS: CHOLECALCIFEROL 1,000 UNIT TABLET GT SCH (20:52)
[2022-08-12] MEDS: FOLIC ACID 1 MG TABLET GT SCH (20:52)
[2022-08-13] MEDS: ALBUTEROL SULFATE 2.5 MG/3 ML NEBU NEB SCH ×6 (03:35→23:43)
[2022-08-13] MEDS: IPRATROPIUM BROMIDE 0.5 MG/2.5 ML NEBU NEB SCH ×6 (03:35→23:43)
[2022-08-13] MEDS: BACLOFEN 10 MG TABLET GT SCH ×3 (05:21→21:15)
[2022-08-13] MEDS: BACLOFEN 20 MG TABLET GT SCH ×3 (05:21→21:15)
[2022-08-13] MEDS: MAGNESIUM OXIDE 400 MG TABLET GT SCH (05:21)
[2022-08-13] MEDS: MIDODRINE HCL 10 MG TABLET GT SCH ×3 (05:22→21:15)
[2022-08-13] MEDS: OMEPRAZOLE 20 MG CAPSULE.DR GT SCH (05:22)
[2022-08-13] MEDS: METOCLOPRAMIDE HCL 5 MG TABLET GT SCH ×3 (05:22→21:15)
[2022-08-13 07:26] VITALS: TEMP 96.8
[2022-08-13] MEDS: HYDROGEN PEROXIDE 3% 118 ML BOTTLE TP SCH ×2 (08:16→21:37)
[2022-08-13] MEDS: FERROUS SULFATE 330 MG/7.5 ML UDC- FOR SA ONLY GT SCH ×2 (08:32→21:14)
[2022-08-13] MEDS: ACIDOPHILUS/BULGARICUS CHEW TAB GT SCH ×2 (08:32→21:14)
[2022-08-13] MEDS: PHENYTOIN 100 MG/4 ML UDC GT SCH ×2 (08:32→21:14)
[2022-08-13] MEDS: FUROSEMIDE 10 MG/ML GT SCH (08:34)
[2022-08-13] MEDS: levETIRAcetam 500 MG/5 ML LIQUID UDC GT SCH ×2 (08:36→21:14)
[2022-08-13] MEDS: POTASSIUM CHLORIDE 40 MEQ/30 ML LIQUID UDC GT SCH (08:37)
[2022-08-13] MEDS: REMEDY ESSENTIAL ZINC PASTE 113 GM TP SCH ×2 (08:38→21:15)
[2022-08-13 20:00] VITALS: TEMP 97.8
[2022-08-13] MEDS: FOLIC ACID 1 MG TABLET GT SCH (21:14)
[2022-08-13] MEDS: MIRALAX 17 GM POWD.PACK GT SCH (21:14)
[2022-08-13] MEDS: CHOLECALCIFEROL 1,000 UNIT TABLET GT SCH (21:15)
[2022-08-13] MEDS: THIAMINE HCL 100 MG TABLET GT SCH (21:15)
[2022-08-14] MEDS: ALBUTEROL SULFATE 2.5 MG/3 ML NEBU NEB SCH ×6 (03:29→23:05)
[2022-08-14] MEDS: IPRATROPIUM BROMIDE 0.5 MG/2.5 ML NEBU NEB SCH ×6 (03:29→23:05)
[2022-08-14] MEDS: BACLOFEN 10 MG TABLET GT SCH ×3 (05:57→21:35)
[2022-08-14] MEDS: METOCLOPRAMIDE HCL 5 MG TABLET GT SCH ×3 (05:57→21:37)
[2022-08-14] MEDS: MIDODRINE HCL 10 MG TABLET GT SCH ×3 (05:57→21:36)
[2022-08-14] MEDS: BACLOFEN 20 MG TABLET GT SCH ×3 (05:57→21:35)
[2022-08-14] MEDS: MAGNESIUM OXIDE 400 MG TABLET GT SCH (05:57)
[2022-08-14] MEDS: OMEPRAZOLE 20 MG CAPSULE.DR GT SCH (05:57)
[2022-08-14 07:22] VITALS: TEMP 97
[2022-08-14 07:39] LABS: BASOPHILS # (AUTO) 0.1 K/UL (0.0-0.2); BASOPHILS % (AUTO) 0.8 % (0.0-2.0); EOSINOPHILS % (AUTO) 0.5 % (0.0-7.0); HEMATOCRIT 34.2 % (31.2-41.9); HEMOGLOBIN 11.3 g/dL (10.9-14.3); LYMPHOCYTES # (AUTO) 1.3 K/uL (0.8-4.8); LYMPHOCYTES % (AUTO) 13.7 % (20.5-51.5); MEAN CORPUSCULAR HEMOGLOBIN 31.7 uug (24.7-32.8); MEAN CORPUSCULAR HGB CONC 33 g/dL (32.3-35.6); MEAN CORPUSCULAR VOLUME 95.7 fL (75.5-95.3); MONOCYTES # (AUTO) 0.3 K/uL (0.1-1.30); MONOCYTES % (AUTO) 2.9 % (0.0-11.0); NEUTROPHILS # (AUTO) 7.6 K/uL (1.8-8.9); NEUTROPHILS % (AUTO) 82.1 % (38.5-71.5); PLATELET COUNT (AUTO) 136 K/uL (179-408); RED BLOOD CELL COUNT(AUTO) 3.58 MIL/uL (3.63-4.92); RED CELL DISTRIBUTION WIDTH 22.2 % (12.3-17.7); WHITE BLOOD COUNT (AUTO) 9.2 K/uL (3.8-11.8)
[2022-08-14 07:51] LABS: DIFFERENTIAL COMMENT 1
[2022-08-14 07:53] LABS: CALCIUM 8.5 mg/dL (8.5-10.1); CREATININE 0.7 mg/dL (0.6-1.3); PHOSPHOROUS 4.5 mg/dL (2.5-4.9)
[2022-08-14] MEDS: HYDROGEN PEROXIDE 3% 118 ML BOTTLE TP SCH ×2 (09:00→19:03)
[2022-08-14] MEDS: PHENYTOIN 100 MG/4 ML UDC GT SCH ×2 (09:01→20:51)
[2022-08-14] MEDS: FERROUS SULFATE 330 MG/7.5 ML UDC- FOR SA ONLY GT SCH ×2 (09:02→20:51)
[2022-08-14] MEDS: ACIDOPHILUS/BULGARICUS CHEW TAB GT SCH ×2 (09:02→20:51)
[2022-08-14] MEDS: FUROSEMIDE 10 MG/ML GT SCH (09:02)
[2022-08-14] MEDS: levETIRAcetam 500 MG/5 ML LIQUID UDC GT SCH ×2 (09:03→20:51)
[2022-08-14] MEDS: POTASSIUM CHLORIDE 40 MEQ/30 ML LIQUID UDC GT SCH (09:04)
[2022-08-14] MEDS: REMEDY ESSENTIAL ZINC PASTE 113 GM TP SCH ×2 (09:05→20:52)
[2022-08-14 20:00] VITALS: TEMP 97.7
[2022-08-14] MEDS: FOLIC ACID 1 MG TABLET GT SCH (20:51)
[2022-08-14] MEDS: CHOLECALCIFEROL 1,000 UNIT TABLET GT SCH (20:51)
[2022-08-14] MEDS: THIAMINE HCL 100 MG TABLET GT SCH (20:51)
[2022-08-15] MEDS: VITAL AF 1.2 1,000 ML LIQUID GT PRN (02:18)
[2022-08-15] MEDS: ALBUTEROL SULFATE 2.5 MG/3 ML NEBU NEB SCH ×6 (03:31→23:23)
[2022-08-15] MEDS: IPRATROPIUM BROMIDE 0.5 MG/2.5 ML NEBU NEB SCH ×6 (03:31→23:22)
[2022-08-15] MEDS: BACLOFEN 10 MG TABLET GT SCH ×3 (05:40→21:37)
[2022-08-15] MEDS: METOCLOPRAMIDE HCL 5 MG TABLET GT SCH ×3 (05:40→21:38)
[2022-08-15] MEDS: OMEPRAZOLE 20 MG CAPSULE.DR GT SCH (05:40)
[2022-08-15] MEDS: BACLOFEN 20 MG TABLET GT SCH ×3 (05:40→21:37)
[2022-08-15] MEDS: MAGNESIUM OXIDE 400 MG TABLET GT SCH (05:40)
[2022-08-15] MEDS: MIDODRINE HCL 10 MG TABLET GT SCH ×3 (05:40→21:38)
[2022-08-15] MEDS: HYDROGEN PEROXIDE 3% 118 ML BOTTLE TP SCH ×2 (07:30→21:23)
[2022-08-15 07:51] VITALS: TEMP 97.4
[2022-08-15] MEDS: PHENYTOIN 100 MG/4 ML UDC GT SCH ×2 (09:01→20:27)
[2022-08-15] MEDS: POTASSIUM CHLORIDE 40 MEQ/30 ML LIQUID UDC GT SCH (09:02)
[2022-08-15] MEDS: REMEDY ESSENTIAL ZINC PASTE 113 GM TP SCH ×2 (09:02→20:28)
[2022-08-15] MEDS: levETIRAcetam 500 MG/5 ML LIQUID UDC GT SCH ×2 (09:02→20:27)
[2022-08-15] MEDS: ACIDOPHILUS/BULGARICUS CHEW TAB GT SCH ×2 (09:02→20:27)
[2022-08-15] MEDS: FERROUS SULFATE 330 MG/7.5 ML UDC- FOR SA ONLY GT SCH ×2 (09:02→20:27)
[2022-08-15] MEDS: FUROSEMIDE 10 MG/ML GT SCH (09:02)
[2022-08-15 19:59] VITALS: TEMP 97.4
[2022-08-15] MEDS: FOLIC ACID 1 MG TABLET GT SCH (20:27)
[2022-08-15] MEDS: CHOLECALCIFEROL 1,000 UNIT TABLET GT SCH (20:28)
[2022-08-15] MEDS: THIAMINE HCL 100 MG TABLET GT SCH (20:28)
[2022-08-15] MEDS: MIRALAX 17 GM POWD.PACK GT SCH (21:37)
[2022-08-16] MEDS: ALBUTEROL SULFATE 2.5 MG/3 ML NEBU NEB SCH ×6 (03:05→23:18)
[2022-08-16] MEDS: IPRATROPIUM BROMIDE 0.5 MG/2.5 ML NEBU NEB SCH ×6 (03:05→23:17)
[2022-08-16] MEDS: BACLOFEN 20 MG TABLET GT SCH ×3 (05:04→21:15)
[2022-08-16] MEDS: MIDODRINE HCL 10 MG TABLET GT SCH ×3 (05:04→21:15)
[2022-08-16] MEDS: METOCLOPRAMIDE HCL 5 MG TABLET GT SCH ×3 (05:04→21:15)
[2022-08-16] MEDS: OMEPRAZOLE 20 MG CAPSULE.DR GT SCH (05:04)
[2022-08-16] MEDS: MAGNESIUM OXIDE 400 MG TABLET GT SCH (05:04)
[2022-08-16] MEDS: BACLOFEN 10 MG TABLET GT SCH ×3 (05:04→21:15)
[2022-08-16 07:51] VITALS: TEMP 96.9
[2022-08-16] MEDS: PHENYTOIN 100 MG/4 ML UDC GT SCH ×2 (08:10→21:14)
[2022-08-16] MEDS: FERROUS SULFATE 330 MG/7.5 ML UDC- FOR SA ONLY GT SCH ×2 (08:10→21:14)
[2022-08-16] MEDS: POTASSIUM CHLORIDE 40 MEQ/30 ML LIQUID UDC GT SCH (08:11)
[2022-08-16] MEDS: ACIDOPHILUS/BULGARICUS CHEW TAB GT SCH ×2 (08:11→21:14)
[2022-08-16] MEDS: FUROSEMIDE 10 MG/ML GT SCH (08:11)
[2022-08-16] MEDS: levETIRAcetam 500 MG/5 ML LIQUID UDC GT SCH ×2 (08:11→21:14)
[2022-08-16] MEDS: REMEDY ESSENTIAL ZINC PASTE 113 GM TP SCH ×2 (08:12→21:15)
[2022-08-16] MEDS: HYDROGEN PEROXIDE 3% 118 ML BOTTLE TP SCH ×2 (08:23→19:00)
[2022-08-16 20:00] VITALS: TEMP 97.6
[2022-08-16] MEDS: CHOLECALCIFEROL 1,000 UNIT TABLET GT SCH (21:14)
[2022-08-16] MEDS: THIAMINE HCL 100 MG TABLET GT SCH (21:14)
[2022-08-16] MEDS: FOLIC ACID 1 MG TABLET GT SCH (21:14)
[2022-08-17] MEDS: ALBUTEROL SULFATE 2.5 MG/3 ML NEBU NEB SCH ×5 (03:51→19:17)
[2022-08-17] MEDS: IPRATROPIUM BROMIDE 0.5 MG/2.5 ML NEBU NEB SCH ×5 (03:51→19:17)
[2022-08-17] MEDS: BACLOFEN 10 MG TABLET GT SCH ×3 (05:44→21:08)
[2022-08-17] MEDS: MAGNESIUM OXIDE 400 MG TABLET GT SCH (05:44)
[2022-08-17] MEDS: BACLOFEN 20 MG TABLET GT SCH ×3 (05:44→21:08)
[2022-08-17] MEDS: MIDODRINE HCL 10 MG TABLET GT SCH ×3 (05:45→21:08)
[2022-08-17] MEDS: METOCLOPRAMIDE HCL 5 MG TABLET GT SCH ×3 (05:45→21:08)
[2022-08-17] MEDS: OMEPRAZOLE 20 MG CAPSULE.DR GT SCH (05:45)
[2022-08-17 07:34] VITALS: TEMP 96.9
[2022-08-17] MEDS: HYDROGEN PEROXIDE 3% 118 ML BOTTLE TP SCH ×2 (08:28→21:46)
[2022-08-17] MEDS: PHENYTOIN 100 MG/4 ML UDC GT SCH ×2 (08:54→21:07)
[2022-08-17] MEDS: FUROSEMIDE 10 MG/ML GT SCH (08:55)
[2022-08-17] MEDS: FERROUS SULFATE 330 MG/7.5 ML UDC- FOR SA ONLY GT SCH ×2 (08:55→21:07)
[2022-08-17] MEDS: ACIDOPHILUS/BULGARICUS CHEW TAB GT SCH ×2 (08:55→21:07)
[2022-08-17] MEDS: POTASSIUM CHLORIDE 40 MEQ/30 ML LIQUID UDC GT SCH (08:56)
[2022-08-17] MEDS: levETIRAcetam 500 MG/5 ML LIQUID UDC GT SCH ×2 (08:56→21:07)
[2022-08-17] MEDS: REMEDY ESSENTIAL ZINC PASTE 113 GM TP SCH ×2 (08:57→21:08)
[2022-08-17 20:00] VITALS: TEMP 97.2
[2022-08-17] MEDS: FOLIC ACID 1 MG TABLET GT SCH (21:07)
[2022-08-17] MEDS: CHOLECALCIFEROL 1,000 UNIT TABLET GT SCH (21:07)
[2022-08-17] MEDS: THIAMINE HCL 100 MG TABLET GT SCH (21:07)
[2022-08-17] MEDS: VITAL AF 1.2 1,000 ML LIQUID GT PRN (21:08)
[2022-08-18] MEDS: ALBUTEROL SULFATE 2.5 MG/3 ML NEBU NEB SCH ×7 (00:21→23:01)
[2022-08-18] MEDS: IPRATROPIUM BROMIDE 0.5 MG/2.5 ML NEBU NEB SCH ×7 (00:21→23:01)
[2022-08-18] MEDS: MIDODRINE HCL 10 MG TABLET GT SCH ×3 (05:15→22:18)
[2022-08-18] MEDS: BACLOFEN 20 MG TABLET GT SCH ×3 (05:15→22:17)
[2022-08-18] MEDS: OMEPRAZOLE 20 MG CAPSULE.DR GT SCH (05:15)
[2022-08-18] MEDS: MAGNESIUM OXIDE 400 MG TABLET GT SCH (05:15)
[2022-08-18] MEDS: BACLOFEN 10 MG TABLET GT SCH ×3 (05:15→22:17)
[2022-08-18] MEDS: METOCLOPRAMIDE HCL 5 MG TABLET GT SCH ×3 (05:15→22:19)
[2022-08-18 07:27] VITALS: TEMP 96.8
[2022-08-18] MEDS: HYDROGEN PEROXIDE 3% 118 ML BOTTLE TP SCH ×2 (08:03→21:30)
[2022-08-18 08:12] LABS: ALANINE AMINOTRANSFERASE 133 U/L (14-59); ALKALINE PHOSPHATASE 178 U/L (50-136); ASPARTATE AMINOTRANSFERASE 36 U/L (15-37); BILIRUBIN,TOTAL 0.1 mg/dL (0.2-1.0); CALCIUM 8.9 mg/dL (8.5-10.1); CARBON DIOXIDE 19 mmol/L (21-32); CHLORIDE 114 mmol/L (98-107); CREATININE 0.5 mg/dL (0.6-1.3); GLUCOSE 77 mg/dL (74-106); NT-PRO BNP 90 pg/mL (0-125); PHOSPHOROUS 3.9 mg/dL (2.5-4.9); POTASSIUM 4.4 mmol/L (3.5-5.1); SODIUM SERUM 144 mmol/L (136-145); TOTAL PROTEIN, SERUM 6.4 g/dL (6.4-8.2); UREA NITROGEN, BLOOD 24 mg/dL (7-18)
[2022-08-18 08:56] LABS: BASOPHILS % (AUTO) 0.6 % (0.0-2.0); DIFFERENTIAL COMMENT 0; EOSINOPHILS % (AUTO) 0.9 % (0.0-7.0); HEMATOCRIT 27.6 % (31.2-41.9); LYMPHOCYTES # (AUTO) 1.4 K/uL (0.8-4.8); LYMPHOCYTES % (AUTO) 27.7 % (20.5-51.5); MEAN CORPUSCULAR HEMOGLOBIN 31.3 uug (24.7-32.8); MEAN CORPUSCULAR HGB CONC 33 g/dL (32.3-35.6); MEAN CORPUSCULAR VOLUME 96.5 fL (75.5-95.3); MONOCYTES # (AUTO) 0.3 K/uL (0.1-1.30); MONOCYTES % (AUTO) 5.2 % (0.0-11.0); NEUTROPHILS # (AUTO) 3.3 K/uL (1.8-8.9); NEUTROPHILS % (AUTO) 65.6 % (38.5-71.5); PLATELET COUNT (AUTO) 63 K/uL (179-408); RED BLOOD CELL COUNT(AUTO) 2.87 MIL/uL (3.63-4.92); RED CELL DISTRIBUTION WIDTH 23.2 % (12.3-17.7)
[2022-08-18] MEDS: PHENYTOIN 100 MG/4 ML UDC GT SCH ×2 (08:59→21:00)
[2022-08-18] MEDS: ACIDOPHILUS/BULGARICUS CHEW TAB GT SCH ×2 (09:00→21:00)
[2022-08-18] MEDS: FERROUS SULFATE 330 MG/7.5 ML UDC- FOR SA ONLY GT SCH ×2 (09:00→21:00)
[2022-08-18] MEDS: POTASSIUM CHLORIDE 40 MEQ/30 ML LIQUID UDC GT SCH (09:01)
[2022-08-18] MEDS: FUROSEMIDE 10 MG/ML GT SCH (09:01)
[2022-08-18] MEDS: REMEDY ESSENTIAL ZINC PASTE 113 GM TP SCH ×2 (09:02→21:00)
[2022-08-18] MEDS: levETIRAcetam 500 MG/5 ML LIQUID UDC GT SCH ×2 (09:02→21:00)
[2022-08-18] MEDS: FOLIC ACID 1 MG TABLET GT SCH (21:00)
[2022-08-18] MEDS: CHOLECALCIFEROL 1,000 UNIT TABLET GT SCH (21:00)
[2022-08-18] MEDS: MIRALAX 17 GM POWD.PACK GT SCH (21:00)
[2022-08-18] MEDS: THIAMINE HCL 100 MG TABLET GT SCH (21:00)
[2022-08-19 02:05] VITALS: BP 99/57; TEMP 97; O2SAT 99
[2022-08-19] MEDS: IPRATROPIUM BROMIDE 0.5 MG/2.5 ML NEBU NEB SCH ×6 (03:08→23:04)
[2022-08-19] MEDS: ALBUTEROL SULFATE 2.5 MG/3 ML NEBU NEB SCH ×6 (03:08→23:04)
[2022-08-19] MEDS: MAGNESIUM OXIDE 400 MG TABLET GT SCH (05:43)
[2022-08-19] MEDS: BACLOFEN 20 MG TABLET GT SCH ×3 (05:43→21:56)
[2022-08-19] MEDS: BACLOFEN 10 MG TABLET GT SCH ×3 (05:43→21:56)
[2022-08-19] MEDS: MIDODRINE HCL 10 MG TABLET GT SCH ×3 (05:44→21:57)
[2022-08-19] MEDS: OMEPRAZOLE 20 MG CAPSULE.DR GT SCH (05:45)
[2022-08-19] MEDS: METOCLOPRAMIDE HCL 5 MG TABLET GT SCH ×3 (05:45→21:57)
[2022-08-19 07:28] VITALS: TEMP 96.8
[2022-08-19] MEDS: HYDROGEN PEROXIDE 3% 118 ML BOTTLE TP SCH ×2 (08:06→19:04)
[2022-08-19] MEDS: PHENYTOIN 100 MG/4 ML UDC GT SCH ×2 (09:42→21:52)
[2022-08-19] MEDS: FERROUS SULFATE 330 MG/7.5 ML UDC- FOR SA ONLY GT SCH ×2 (09:42→21:52)
[2022-08-19] MEDS: FUROSEMIDE 10 MG/ML GT SCH (09:45)
[2022-08-19] MEDS: levETIRAcetam 500 MG/5 ML LIQUID UDC GT SCH ×2 (09:45→21:53)
[2022-08-19] MEDS: ACIDOPHILUS/BULGARICUS CHEW TAB GT SCH ×2 (09:45→21:52)
[2022-08-19] MEDS: REMEDY ESSENTIAL ZINC PASTE 113 GM TP SCH ×2 (09:46→21:55)
[2022-08-19] MEDS: POTASSIUM CHLORIDE 40 MEQ/30 ML LIQUID UDC GT SCH (09:46)
[2022-08-19] MEDS: VITAL AF 1.2 1,000 ML LIQUID GT PRN (11:06)
[2022-08-19 20:26] VITALS: TEMP 97
[2022-08-19] MEDS: FOLIC ACID 1 MG TABLET GT SCH (21:53)
[2022-08-19] MEDS: THIAMINE HCL 100 MG TABLET GT SCH (21:55)
[2022-08-19] MEDS: NYSTATIN POWDER 15 GM BOTTLE TP SCH (21:55)
[2022-08-19] MEDS: CHOLECALCIFEROL 1,000 UNIT TABLET GT SCH (21:55)
[2022-08-20] MEDS: ALBUTEROL SULFATE 2.5 MG/3 ML NEBU NEB SCH ×6 (03:03→23:30)
[2022-08-20] MEDS: IPRATROPIUM BROMIDE 0.5 MG/2.5 ML NEBU NEB SCH ×6 (03:03→23:30)
[2022-08-20] MEDS: MAGNESIUM OXIDE 400 MG TABLET GT SCH (05:31)
[2022-08-20] MEDS: MIDODRINE HCL 10 MG TABLET GT SCH ×3 (05:31→21:27)
[2022-08-20] MEDS: BACLOFEN 20 MG TABLET GT SCH ×3 (05:31→21:27)
[2022-08-20] MEDS: BACLOFEN 10 MG TABLET GT SCH ×3 (05:31→21:26)
[2022-08-20] MEDS: METOCLOPRAMIDE HCL 5 MG TABLET GT SCH ×3 (05:32→21:27)
[2022-08-20] MEDS: OMEPRAZOLE 20 MG CAPSULE.DR GT SCH (05:32)
[2022-08-20 07:25] VITALS: TEMP 97
[2022-08-20] MEDS: HYDROGEN PEROXIDE 3% 118 ML BOTTLE TP SCH ×2 (07:28→19:20)
[2022-08-20 08:55] VITALS: BP 90/52; TEMP 97; O2SAT 99
[2022-08-20] MEDS: PHENYTOIN 100 MG/4 ML UDC GT SCH ×2 (09:09→20:42)
[2022-08-20] MEDS: FERROUS SULFATE 330 MG/7.5 ML UDC- FOR SA ONLY GT SCH ×2 (09:09→20:43)
[2022-08-20] MEDS: FUROSEMIDE 10 MG/ML GT SCH (09:10)
[2022-08-20] MEDS: levETIRAcetam 500 MG/5 ML LIQUID UDC GT SCH ×2 (09:10→20:44)
[2022-08-20] MEDS: ACIDOPHILUS/BULGARICUS CHEW TAB GT SCH ×2 (09:10→20:43)
[2022-08-20] MEDS: POTASSIUM CHLORIDE 40 MEQ/30 ML LIQUID UDC GT SCH (09:11)
[2022-08-20] MEDS: REMEDY ESSENTIAL ZINC PASTE 113 GM TP SCH ×2 (09:11→20:45)
[2022-08-20] MEDS: NYSTATIN POWDER 15 GM BOTTLE TP SCH ×2 (09:11→20:45)
[2022-08-20] MEDS: VITAL AF 1.2 1,000 ML LIQUID GT PRN (19:03)
[2022-08-20] MEDS: FOLIC ACID 1 MG TABLET GT SCH (20:44)
[2022-08-20] MEDS: MIRALAX 17 GM POWD.PACK GT SCH (20:44)
[2022-08-20] MEDS: CHOLECALCIFEROL 1,000 UNIT TABLET GT SCH (20:45)
[2022-08-20] MEDS: THIAMINE HCL 100 MG TABLET GT SCH (20:45)
[2022-08-20 20:58] VITALS: TEMP 96.1
[2022-08-21] MEDS: ALBUTEROL SULFATE 2.5 MG/3 ML NEBU NEB SCH ×6 (03:25→23:09)
[2022-08-21] MEDS: IPRATROPIUM BROMIDE 0.5 MG/2.5 ML NEBU NEB SCH ×6 (03:25→23:09)
[2022-08-21] MEDS: MAGNESIUM OXIDE 400 MG TABLET GT SCH (05:13)
[2022-08-21] MEDS: BACLOFEN 10 MG TABLET GT SCH ×3 (05:13→21:04)
[2022-08-21] MEDS: BACLOFEN 20 MG TABLET GT SCH ×3 (05:13→21:04)
[2022-08-21] MEDS: MIDODRINE HCL 10 MG TABLET GT SCH ×3 (05:14→21:05)
[2022-08-21] MEDS: OMEPRAZOLE 20 MG CAPSULE.DR GT SCH (05:14)
[2022-08-21] MEDS: METOCLOPRAMIDE HCL 5 MG TABLET GT SCH ×3 (05:14→21:05)
[2022-08-21] MEDS: HYDROGEN PEROXIDE 3% 118 ML BOTTLE TP SCH ×2 (07:32→20:51)
[2022-08-21 07:40] VITALS: TEMP 96.9
[2022-08-21] MEDS: FERROUS SULFATE 330 MG/7.5 ML UDC- FOR SA ONLY GT SCH ×2 (09:00→20:18)
[2022-08-21] MEDS: PHENYTOIN 100 MG/4 ML UDC GT SCH ×2 (09:00→20:18)
[2022-08-21] MEDS: levETIRAcetam 500 MG/5 ML LIQUID UDC GT SCH ×2 (09:01→20:19)
[2022-08-21] MEDS: ACIDOPHILUS/BULGARICUS CHEW TAB GT SCH ×2 (09:01→20:18)
[2022-08-21] MEDS: FUROSEMIDE 10 MG/ML GT SCH (09:01)
[2022-08-21] MEDS: POTASSIUM CHLORIDE 40 MEQ/30 ML LIQUID UDC GT SCH (09:02)
[2022-08-21] MEDS: REMEDY ESSENTIAL ZINC PASTE 113 GM TP SCH ×2 (09:03→20:19)
[2022-08-21] MEDS: NYSTATIN POWDER 15 GM BOTTLE TP SCH ×2 (09:03→20:19)
[2022-08-21] MEDS: THIAMINE HCL 100 MG TABLET GT SCH (20:19)
[2022-08-21] MEDS: FOLIC ACID 1 MG TABLET GT SCH (20:19)
[2022-08-21] MEDS: CHOLECALCIFEROL 1,000 UNIT TABLET GT SCH (20:19)
[2022-08-21 20:34] VITALS: TEMP 96
[2022-08-22 00:20] VITALS: BP 94/52; TEMP 97.2; O2SAT 99
[2022-08-22] MEDS: IPRATROPIUM BROMIDE 0.5 MG/2.5 ML NEBU NEB SCH ×6 (03:07→23:00)
[2022-08-22] MEDS: ALBUTEROL SULFATE 2.5 MG/3 ML NEBU NEB SCH ×6 (03:07→23:00)
[2022-08-22] MEDS: MAGNESIUM OXIDE 400 MG TABLET GT SCH (05:41)
[2022-08-22] MEDS: BACLOFEN 10 MG TABLET GT SCH ×3 (05:41→21:10)
[2022-08-22] MEDS: BACLOFEN 20 MG TABLET GT SCH ×3 (05:41→21:11)
[2022-08-22] MEDS: MIDODRINE HCL 10 MG TABLET GT SCH ×3 (05:42→21:11)
[2022-08-22] MEDS: OMEPRAZOLE 20 MG CAPSULE.DR GT SCH (05:42)
[2022-08-22] MEDS: VITAL AF 1.2 1,000 ML LIQUID GT PRN (05:42)
[2022-08-22] MEDS: METOCLOPRAMIDE HCL 5 MG TABLET GT SCH ×3 (05:42→21:11)
[2022-08-22 07:35] VITALS: TEMP 96
[2022-08-22] MEDS: HYDROGEN PEROXIDE 3% 118 ML BOTTLE TP SCH ×2 (09:20→19:08)
[2022-08-22] MEDS: PHENYTOIN 100 MG/4 ML UDC GT SCH ×2 (09:22→21:00)
[2022-08-22] MEDS: FERROUS SULFATE 330 MG/7.5 ML UDC- FOR SA ONLY GT SCH ×2 (09:22→21:09)
[2022-08-22] MEDS: ACIDOPHILUS/BULGARICUS CHEW TAB GT SCH ×2 (09:22→21:09)
[2022-08-22] MEDS: levETIRAcetam 500 MG/5 ML LIQUID UDC GT SCH ×2 (09:23→21:00)
[2022-08-22] MEDS: FUROSEMIDE 10 MG/ML GT SCH (09:23)
[2022-08-22] MEDS: REMEDY ESSENTIAL ZINC PASTE 113 GM TP SCH ×2 (09:24→21:00)
[2022-08-22] MEDS: POTASSIUM CHLORIDE 40 MEQ/30 ML LIQUID UDC GT SCH (09:24)
[2022-08-22] MEDS: NYSTATIN POWDER 15 GM BOTTLE TP SCH ×2 (09:24→21:00)
[2022-08-22 09:26] VITALS: BP 94/57
[2022-08-22 20:37] VITALS: TEMP 96
[2022-08-22] MEDS: MIRALAX 17 GM POWD.PACK GT SCH (21:00)
[2022-08-22] MEDS: CHOLECALCIFEROL 1,000 UNIT TABLET GT SCH (21:00)
[2022-08-22] MEDS: THIAMINE HCL 100 MG TABLET GT SCH (21:00)
[2022-08-22] MEDS: FOLIC ACID 1 MG TABLET GT SCH (21:00)
[2022-08-23] MEDS: IPRATROPIUM BROMIDE 0.5 MG/2.5 ML NEBU NEB SCH ×6 (03:36→23:01)
[2022-08-23] MEDS: ALBUTEROL SULFATE 2.5 MG/3 ML NEBU NEB SCH ×6 (03:37→23:01)
[2022-08-23] MEDS: BACLOFEN 20 MG TABLET GT SCH ×3 (05:35→21:08)
[2022-08-23] MEDS: MAGNESIUM OXIDE 400 MG TABLET GT SCH (05:35)
[2022-08-23] MEDS: BACLOFEN 10 MG TABLET GT SCH ×3 (05:35→21:08)
[2022-08-23] MEDS: OMEPRAZOLE 20 MG CAPSULE.DR GT SCH (05:36)
[2022-08-23] MEDS: METOCLOPRAMIDE HCL 5 MG TABLET GT SCH ×3 (05:36→21:09)
[2022-08-23] MEDS: MIDODRINE HCL 10 MG TABLET GT SCH ×3 (05:36→21:09)
[2022-08-23 07:39] VITALS: TEMP 96.3
[2022-08-23] MEDS: ACIDOPHILUS/BULGARICUS CHEW TAB GT SCH ×2 (08:58→21:01)
[2022-08-23] MEDS: PHENYTOIN 100 MG/4 ML UDC GT SCH ×2 (08:58→21:00)
[2022-08-23] MEDS: FERROUS SULFATE 330 MG/7.5 ML UDC- FOR SA ONLY GT SCH ×2 (08:58→21:01)
[2022-08-23] MEDS: FUROSEMIDE 10 MG/ML GT SCH (08:58)
[2022-08-23] MEDS: POTASSIUM CHLORIDE 40 MEQ/30 ML LIQUID UDC GT SCH (08:59)
[2022-08-23] MEDS: levETIRAcetam 500 MG/5 ML LIQUID UDC GT SCH ×2 (08:59→21:06)
[2022-08-23] MEDS: NYSTATIN POWDER 15 GM BOTTLE TP SCH ×2 (09:00→21:08)
[2022-08-23] MEDS: HYDROGEN PEROXIDE 3% 118 ML BOTTLE TP SCH ×2 (09:00→19:01)
[2022-08-23] MEDS: REMEDY ESSENTIAL ZINC PASTE 113 GM TP SCH ×2 (09:00→21:08)
[2022-08-23] MEDS: VITAL AF 1.2 1,000 ML LIQUID GT PRN (15:02)
[2022-08-23 20:00] VITALS: TEMP 96
[2022-08-23] MEDS: FOLIC ACID 1 MG TABLET GT SCH (21:01)
[2022-08-23] MEDS: THIAMINE HCL 100 MG TABLET GT SCH (21:06)
[2022-08-23] MEDS: CHOLECALCIFEROL 1,000 UNIT TABLET GT SCH (21:07)
[2022-08-24] MEDS: ALBUTEROL SULFATE 2.5 MG/3 ML NEBU NEB SCH ×6 (03:00→23:01)
[2022-08-24] MEDS: IPRATROPIUM BROMIDE 0.5 MG/2.5 ML NEBU NEB SCH ×6 (03:00→23:01)
[2022-08-24] MEDS: BACLOFEN 10 MG TABLET GT SCH ×3 (06:21→22:06)
[2022-08-24] MEDS: MIDODRINE HCL 10 MG TABLET GT SCH ×3 (06:21→22:07)
[2022-08-24] MEDS: MAGNESIUM OXIDE 400 MG TABLET GT SCH (06:21)
[2022-08-24] MEDS: BACLOFEN 20 MG TABLET GT SCH ×3 (06:21→22:06)
[2022-08-24] MEDS: OMEPRAZOLE 20 MG CAPSULE.DR GT SCH (06:21)
[2022-08-24] MEDS: METOCLOPRAMIDE HCL 5 MG TABLET GT SCH ×3 (06:21→22:07)
[2022-08-24 08:00] VITALS: TEMP 96
[2022-08-24] MEDS: PHENYTOIN 100 MG/4 ML UDC GT SCH ×2 (09:02→21:26)
[2022-08-24] MEDS: ACIDOPHILUS/BULGARICUS CHEW TAB GT SCH ×2 (09:03→21:26)
[2022-08-24] MEDS: FERROUS SULFATE 330 MG/7.5 ML UDC- FOR SA ONLY GT SCH ×2 (09:03→21:26)
[2022-08-24] MEDS: FUROSEMIDE 10 MG/ML GT SCH (09:03)
[2022-08-24] MEDS: levETIRAcetam 500 MG/5 ML LIQUID UDC GT SCH ×2 (09:05→21:28)
[2022-08-24] MEDS: POTASSIUM CHLORIDE 40 MEQ/30 ML LIQUID UDC GT SCH (09:06)
[2022-08-24] MEDS: REMEDY ESSENTIAL ZINC PASTE 113 GM TP SCH ×2 (09:06→21:31)
[2022-08-24] MEDS: NYSTATIN POWDER 15 GM BOTTLE TP SCH ×2 (09:06→21:29)
[2022-08-24] MEDS: HYDROGEN PEROXIDE 3% 118 ML BOTTLE TP SCH ×2 (09:35→19:00)
[2022-08-24] MEDS ORDERED: NYSTATIN CREAM 30 GM TUBE TP PRN (11:15)
[2022-08-24] MEDS ORDERED: TRIAMCINOLONE ACET 0.1% CREAM 15 GM TUBE TP PRN (11:15)
[2022-08-24] MEDS: FOLIC ACID 1 MG TABLET GT SCH (21:27)
[2022-08-24] MEDS: TRIAMCINOLONE ACET 0.1% CREAM 15 GM TUBE TP SCH (21:28)
[2022-08-24] MEDS: THIAMINE HCL 100 MG TABLET GT SCH (21:28)
[2022-08-24] MEDS: CHOLECALCIFEROL 1,000 UNIT TABLET GT SCH (21:28)
[2022-08-24] MEDS: NYSTATIN CREAM 30 GM TUBE TP SCH ×2 (21:29)
[2022-08-25] MEDS: ALBUTEROL SULFATE 2.5 MG/3 ML NEBU NEB SCH ×6 (03:20→23:30)
[2022-08-25] MEDS: IPRATROPIUM BROMIDE 0.5 MG/2.5 ML NEBU NEB SCH ×6 (03:20→23:30)
[2022-08-25] MEDS: OMEPRAZOLE 20 MG CAPSULE.DR GT SCH (06:00)
[2022-08-25] MEDS: BACLOFEN 10 MG TABLET GT SCH ×3 (06:52→22:05)
[2022-08-25] MEDS: BACLOFEN 20 MG TABLET GT SCH ×3 (06:52→22:05)
[2022-08-25] MEDS: MAGNESIUM OXIDE 400 MG TABLET GT SCH (06:52)
[2022-08-25] MEDS: METOCLOPRAMIDE HCL 5 MG TABLET GT SCH ×3 (06:53→22:05)
[2022-08-25] MEDS: MIDODRINE HCL 10 MG TABLET GT SCH ×3 (06:54→22:05)
[2022-08-25 06:57] LABS: BASOPHILS % (AUTO) 0.4 % (0.0-2.0); EOSINOPHILS # (AUTO) 0.1 K/uL (0.0-0.7); EOSINOPHILS % (AUTO) 1.4 % (0.0-7.0); HEMATOCRIT 25.5 % (31.2-41.9); HEMOGLOBIN 8.6 g/dL (10.9-14.3); LYMPHOCYTES # (AUTO) 1.2 K/uL (0.8-4.8); LYMPHOCYTES % (AUTO) 27.6 % (20.5-51.5); MEAN CORPUSCULAR HGB CONC 34 g/dL (32.3-35.6); MEAN CORPUSCULAR VOLUME 94.5 fL (75.5-95.3); MONOCYTES # (AUTO) 0.3 K/uL (0.1-1.30); MONOCYTES % (AUTO) 6.5 % (0.0-11.0); NEUTROPHILS # (AUTO) 2.8 K/uL (1.8-8.9); NEUTROPHILS % (AUTO) 64.1 % (38.5-71.5); PLATELET COUNT (AUTO) 107 K/uL (179-408); RED CELL DISTRIBUTION WIDTH 21.9 % (12.3-17.7); WHITE BLOOD COUNT (AUTO) 4.4 K/uL (3.8-11.8)
[2022-08-25 07:22] LABS: BILIRUBIN,TOTAL 0.1 mg/dL (0.2-1.0); CALCIUM 8.5 mg/dL (8.5-10.1); CREATININE 0.6 mg/dL (0.6-1.3); PHOSPHOROUS 3.9 mg/dL (2.5-4.9); POTASSIUM 4.2 mmol/L (3.5-5.1)
[2022-08-25 07:23] LABS: ALBUMIN 1.9 g/dL (3.4-5.0); MAGNESIUM 1.8 mg/dL (1.8-2.4); TOTAL PROTEIN, SERUM 6.5 g/dL (6.4-8.2)
[2022-08-25 07:31] VITALS: TEMP 97
[2022-08-25 08:09] LABS: DIFFERENTIAL COMMENT 1
[2022-08-25] MEDS: HYDROGEN PEROXIDE 3% 118 ML BOTTLE TP SCH ×2 (08:10→20:58)
[2022-08-25] MEDS: PHENYTOIN 100 MG/4 ML UDC GT SCH ×2 (08:27→20:29)
[2022-08-25] MEDS: FERROUS SULFATE 330 MG/7.5 ML UDC- FOR SA ONLY GT SCH ×2 (08:27→20:31)
[2022-08-25] MEDS: ACIDOPHILUS/BULGARICUS CHEW TAB GT SCH ×2 (08:28→20:31)
[2022-08-25] MEDS: FUROSEMIDE 10 MG/ML GT SCH (08:28)
[2022-08-25] MEDS: levETIRAcetam 500 MG/5 ML LIQUID UDC GT SCH ×2 (08:30→20:31)
[2022-08-25] MEDS: POTASSIUM CHLORIDE 40 MEQ/30 ML LIQUID UDC GT SCH (08:30)
[2022-08-25] MEDS: NYSTATIN CREAM 30 GM TUBE TP SCH ×4 (08:31→20:33)
[2022-08-25] MEDS: TRIAMCINOLONE ACET 0.1% CREAM 15 GM TUBE TP SCH ×2 (08:31→20:32)
[2022-08-25] MEDS: REMEDY ESSENTIAL ZINC PASTE 113 GM TP SCH ×2 (08:31→20:33)
[2022-08-25] MEDS: NYSTATIN POWDER 15 GM BOTTLE TP SCH ×2 (08:31→20:33)
[2022-08-25 20:20] VITALS: TEMP 97.1
[2022-08-25] MEDS: FOLIC ACID 1 MG TABLET GT SCH (20:31)
[2022-08-25] MEDS: MIRALAX 17 GM POWD.PACK GT SCH (20:32)
[2022-08-25] MEDS: CHOLECALCIFEROL 1,000 UNIT TABLET GT SCH (20:32)
[2022-08-25] MEDS: THIAMINE HCL 100 MG TABLET GT SCH (20:32)
[2022-08-26] MEDS: IPRATROPIUM BROMIDE 0.5 MG/2.5 ML NEBU NEB SCH ×6 (03:33→23:24)
[2022-08-26] MEDS: ALBUTEROL SULFATE 2.5 MG/3 ML NEBU NEB SCH ×6 (03:33→23:24)
[2022-08-26] MEDS: BACLOFEN 10 MG TABLET GT SCH ×3 (05:19→21:04)
[2022-08-26] MEDS: BACLOFEN 20 MG TABLET GT SCH ×3 (05:19→21:05)
[2022-08-26] MEDS: METOCLOPRAMIDE HCL 5 MG TABLET GT SCH ×3 (05:19→21:05)
[2022-08-26] MEDS: OMEPRAZOLE 20 MG CAPSULE.DR GT SCH (05:19)
[2022-08-26] MEDS: MIDODRINE HCL 10 MG TABLET GT SCH ×3 (05:19→21:05)
[2022-08-26] MEDS: MAGNESIUM OXIDE 400 MG TABLET GT SCH (05:19)
[2022-08-26 07:20] VITALS: TEMP 96.9
[2022-08-26] MEDS: HYDROGEN PEROXIDE 3% 118 ML BOTTLE TP SCH ×2 (08:16→21:00)
[2022-08-26] MEDS: ACIDOPHILUS/BULGARICUS CHEW TAB GT SCH ×2 (09:11→20:06)
[2022-08-26] MEDS: FERROUS SULFATE 330 MG/7.5 ML UDC- FOR SA ONLY GT SCH ×2 (09:11→20:06)
[2022-08-26] MEDS: PHENYTOIN 100 MG/4 ML UDC GT SCH ×2 (09:15→20:06)
[2022-08-26] MEDS: levETIRAcetam 500 MG/5 ML LIQUID UDC GT SCH ×2 (09:16→20:06)
[2022-08-26] MEDS: FUROSEMIDE 10 MG/ML GT SCH (09:16)
[2022-08-26] MEDS: TRIAMCINOLONE ACET 0.1% CREAM 15 GM TUBE TP SCH ×2 (09:17→20:07)
[2022-08-26] MEDS: NYSTATIN CREAM 30 GM TUBE TP SCH ×4 (09:17→20:07)
[2022-08-26] MEDS: POTASSIUM CHLORIDE 40 MEQ/30 ML LIQUID UDC GT SCH (09:17)
[2022-08-26] MEDS: REMEDY ESSENTIAL ZINC PASTE 113 GM TP SCH ×2 (09:18→20:07)
[2022-08-26] MEDS: NYSTATIN POWDER 15 GM BOTTLE TP SCH ×2 (09:18→20:07)
[2022-08-26] MEDS: VITAL AF 1.2 1,000 ML LIQUID GT PRN (14:11)
[2022-08-26 20:04] VITALS: TEMP 97.2
[2022-08-26] MEDS: FOLIC ACID 1 MG TABLET GT SCH (20:06)
[2022-08-26] MEDS: THIAMINE HCL 100 MG TABLET GT SCH (20:06)
[2022-08-26] MEDS: CHOLECALCIFEROL 1,000 UNIT TABLET GT SCH (20:07)
[2022-08-27] MEDS: ALBUTEROL SULFATE 2.5 MG/3 ML NEBU NEB SCH ×6 (03:35→23:02)
[2022-08-27] MEDS: IPRATROPIUM BROMIDE 0.5 MG/2.5 ML NEBU NEB SCH ×6 (03:35→23:02)
[2022-08-27] MEDS: BACLOFEN 10 MG TABLET GT SCH ×3 (05:18→22:00)
[2022-08-27] MEDS: BACLOFEN 20 MG TABLET GT SCH ×3 (05:18→22:00)
[2022-08-27] MEDS: METOCLOPRAMIDE HCL 5 MG TABLET GT SCH ×3 (05:18→22:00)
[2022-08-27] MEDS: OMEPRAZOLE 20 MG CAPSULE.DR GT SCH (05:18)
[2022-08-27] MEDS: MIDODRINE HCL 10 MG TABLET GT SCH ×3 (05:18→22:00)
[2022-08-27] MEDS: MAGNESIUM OXIDE 400 MG TABLET GT SCH (05:18)
[2022-08-27 07:27] VITALS: TEMP 96.8
[2022-08-27] MEDS: HYDROGEN PEROXIDE 3% 118 ML BOTTLE TP SCH ×2 (08:15→19:00)
[2022-08-27] MEDS: PHENYTOIN 100 MG/4 ML UDC GT SCH ×2 (08:51→20:38)
[2022-08-27] MEDS: ACIDOPHILUS/BULGARICUS CHEW TAB GT SCH ×2 (08:52→20:38)
[2022-08-27] MEDS: FERROUS SULFATE 330 MG/7.5 ML UDC- FOR SA ONLY GT SCH ×2 (08:52→20:38)
[2022-08-27] MEDS: FUROSEMIDE 10 MG/ML GT SCH (08:52)
[2022-08-27] MEDS: levETIRAcetam 500 MG/5 ML LIQUID UDC GT SCH ×2 (08:53→20:39)
[2022-08-27] MEDS: POTASSIUM CHLORIDE 40 MEQ/30 ML LIQUID UDC GT SCH (08:54)
[2022-08-27] MEDS: REMEDY ESSENTIAL ZINC PASTE 113 GM TP SCH ×2 (08:55→20:41)
[2022-08-27] MEDS: NYSTATIN CREAM 30 GM TUBE TP SCH ×4 (08:55→20:41)
[2022-08-27] MEDS: TRIAMCINOLONE ACET 0.1% CREAM 15 GM TUBE TP SCH ×2 (08:55→20:40)
[2022-08-27] MEDS: NYSTATIN POWDER 15 GM BOTTLE TP SCH ×2 (08:55→20:41)
[2022-08-27 10:15] VITALS: O2SAT 98
[2022-08-27] MEDS: MIRALAX 17 GM POWD.PACK GT SCH (20:39)
[2022-08-27] MEDS: FOLIC ACID 1 MG TABLET GT SCH (20:39)
[2022-08-27] MEDS: THIAMINE HCL 100 MG TABLET GT SCH (20:40)
[2022-08-27] MEDS: CHOLECALCIFEROL 1,000 UNIT TABLET GT SCH (20:40)
[2022-08-27 23:00] VITALS: TEMP 94.6
[2022-08-28 01:00] VITALS: TEMP 97.6
[2022-08-28] MEDS: ALBUTEROL SULFATE 2.5 MG/3 ML NEBU NEB SCH ×5 (03:21→22:53)
[2022-08-28] MEDS: IPRATROPIUM BROMIDE 0.5 MG/2.5 ML NEBU NEB SCH ×5 (03:21→22:53)
[2022-08-28 04:00] VITALS: TEMP 97.8
[2022-08-28] MEDS: BACLOFEN 10 MG TABLET GT SCH ×3 (06:06→21:22)
[2022-08-28] MEDS: MAGNESIUM OXIDE 400 MG TABLET GT SCH (06:06)
[2022-08-28] MEDS: BACLOFEN 20 MG TABLET GT SCH ×3 (06:06→21:22)
[2022-08-28] MEDS: METOCLOPRAMIDE HCL 5 MG TABLET GT SCH ×3 (06:07→21:22)
[2022-08-28] MEDS: OMEPRAZOLE 20 MG CAPSULE.DR GT SCH (06:07)
[2022-08-28] MEDS: MIDODRINE HCL 10 MG TABLET GT SCH ×3 (06:07→21:22)
[2022-08-28 06:30] VITALS: TEMP 98.4
[2022-08-28] MEDS: HYDROGEN PEROXIDE 3% 118 ML BOTTLE TP SCH ×2 (07:35→19:07)
[2022-08-28 07:43] VITALS: TEMP 96.4
[2022-08-28] MEDS: ACIDOPHILUS/BULGARICUS CHEW TAB GT SCH ×2 (08:13→20:25)
[2022-08-28] MEDS: PHENYTOIN 100 MG/4 ML UDC GT SCH ×2 (08:13→20:25)
[2022-08-28] MEDS: FUROSEMIDE 10 MG/ML GT SCH (08:13)
[2022-08-28] MEDS: levETIRAcetam 500 MG/5 ML LIQUID UDC GT SCH ×2 (08:13→20:25)
[2022-08-28] MEDS: FERROUS SULFATE 330 MG/7.5 ML UDC- FOR SA ONLY GT SCH ×2 (08:13→20:25)
[2022-08-28] MEDS: TRIAMCINOLONE ACET 0.1% CREAM 15 GM TUBE TP SCH ×2 (08:14→20:26)
[2022-08-28] MEDS: POTASSIUM CHLORIDE 40 MEQ/30 ML LIQUID UDC GT SCH (08:14)
[2022-08-28] MEDS: NYSTATIN CREAM 30 GM TUBE TP SCH ×4 (08:15→20:26)
[2022-08-28] MEDS: NYSTATIN POWDER 15 GM BOTTLE TP SCH ×2 (08:15→20:26)
[2022-08-28] MEDS: REMEDY ESSENTIAL ZINC PASTE 113 GM TP SCH ×2 (08:15→20:26)
[2022-08-28 20:14] VITALS: TEMP 97.6
[2022-08-28] MEDS: FOLIC ACID 1 MG TABLET GT SCH (20:25)
[2022-08-28] MEDS: THIAMINE HCL 100 MG TABLET GT SCH (20:26)
[2022-08-28] MEDS: CHOLECALCIFEROL 1,000 UNIT TABLET GT SCH (20:26)
[2022-08-29] MEDS: IPRATROPIUM BROMIDE 0.5 MG/2.5 ML NEBU NEB SCH ×6 (03:31→23:30)
[2022-08-29] MEDS: ALBUTEROL SULFATE 2.5 MG/3 ML NEBU NEB SCH ×6 (03:31→23:30)
[2022-08-29] MEDS: MIDODRINE HCL 10 MG TABLET GT SCH ×3 (05:04→21:54)
[2022-08-29] MEDS: METOCLOPRAMIDE HCL 5 MG TABLET GT SCH ×3 (05:04→21:54)
[2022-08-29] MEDS: BACLOFEN 20 MG TABLET GT SCH ×3 (05:04→21:53)
[2022-08-29] MEDS: OMEPRAZOLE 20 MG CAPSULE.DR GT SCH (05:04)
[2022-08-29] MEDS: BACLOFEN 10 MG TABLET GT SCH ×3 (05:04→21:53)
[2022-08-29] MEDS: MAGNESIUM OXIDE 400 MG TABLET GT SCH (05:04)
[2022-08-29 07:37] VITALS: TEMP 97.4
[2022-08-29] MEDS: FERROUS SULFATE 330 MG/7.5 ML UDC- FOR SA ONLY GT SCH ×2 (08:25→21:44)
[2022-08-29] MEDS: PHENYTOIN 100 MG/4 ML UDC GT SCH ×2 (08:25→21:46)
[2022-08-29] MEDS: ACIDOPHILUS/BULGARICUS CHEW TAB GT SCH ×2 (08:26→21:44)
[2022-08-29] MEDS: POTASSIUM CHLORIDE 40 MEQ/30 ML LIQUID UDC GT SCH (08:26)
[2022-08-29] MEDS: levETIRAcetam 500 MG/5 ML LIQUID UDC GT SCH ×2 (08:26→21:45)
[2022-08-29] MEDS: FUROSEMIDE 10 MG/ML GT SCH (08:26)
[2022-08-29] MEDS: NYSTATIN POWDER 15 GM BOTTLE TP SCH ×2 (08:27→21:48)
[2022-08-29] MEDS: NYSTATIN CREAM 30 GM TUBE TP SCH ×4 (08:27→21:48)
[2022-08-29] MEDS: TRIAMCINOLONE ACET 0.1% CREAM 15 GM TUBE TP SCH ×2 (08:27→21:48)
[2022-08-29] MEDS: REMEDY ESSENTIAL ZINC PASTE 113 GM TP SCH ×2 (08:28→21:48)
[2022-08-29] MEDS: HYDROGEN PEROXIDE 3% 118 ML BOTTLE TP SCH ×2 (09:08→20:09)
[2022-08-29 20:00] VITALS: TEMP 95.6
[2022-08-29] MEDS: FOLIC ACID 1 MG TABLET GT SCH (21:52)
[2022-08-29] MEDS: CHOLECALCIFEROL 1,000 UNIT TABLET GT SCH (21:53)
[2022-08-29] MEDS: THIAMINE HCL 100 MG TABLET GT SCH (21:53)
[2022-08-29] MEDS: MIRALAX 17 GM POWD.PACK GT SCH (21:53)
[2022-08-30] MEDS: IPRATROPIUM BROMIDE 0.5 MG/2.5 ML NEBU NEB SCH ×5 (03:43→19:30)
[2022-08-30] MEDS: ALBUTEROL SULFATE 2.5 MG/3 ML NEBU NEB SCH ×5 (03:43→19:30)
[2022-08-30] MEDS: MAGNESIUM OXIDE 400 MG TABLET GT SCH (05:48)
[2022-08-30] MEDS: BACLOFEN 10 MG TABLET GT SCH ×3 (05:48→21:24)
[2022-08-30] MEDS: BACLOFEN 20 MG TABLET GT SCH ×3 (05:48→21:24)
[2022-08-30] MEDS: METOCLOPRAMIDE HCL 5 MG TABLET GT SCH ×3 (05:48→21:25)
[2022-08-30] MEDS: MIDODRINE HCL 10 MG TABLET GT SCH ×3 (05:48→21:24)
[2022-08-30] MEDS: OMEPRAZOLE 20 MG CAPSULE.DR GT SCH (05:48)
[2022-08-30 06:00] VITALS: TEMP 97.2
[2022-08-30 07:37] VITALS: TEMP 97
[2022-08-30] MEDS: HYDROGEN PEROXIDE 3% 118 ML BOTTLE TP SCH ×2 (08:19→20:47)
[2022-08-30] MEDS: FERROUS SULFATE 330 MG/7.5 ML UDC- FOR SA ONLY GT SCH ×2 (08:32→21:12)
[2022-08-30] MEDS: ACIDOPHILUS/BULGARICUS CHEW TAB GT SCH ×2 (08:32→21:12)
[2022-08-30] MEDS: PHENYTOIN 100 MG/4 ML UDC GT SCH ×2 (08:32→21:11)
[2022-08-30] MEDS: FUROSEMIDE 10 MG/ML GT SCH (08:33)
[2022-08-30] MEDS: TRIAMCINOLONE ACET 0.1% CREAM 15 GM TUBE TP SCH ×2 (08:34→21:16)
[2022-08-30] MEDS: POTASSIUM CHLORIDE 40 MEQ/30 ML LIQUID UDC GT SCH (08:34)
[2022-08-30] MEDS: NYSTATIN POWDER 15 GM BOTTLE TP SCH ×2 (08:34→21:16)
[2022-08-30] MEDS: NYSTATIN CREAM 30 GM TUBE TP SCH ×4 (08:34→21:16)
[2022-08-30] MEDS: levETIRAcetam 500 MG/5 ML LIQUID UDC GT SCH ×2 (08:34→21:14)
[2022-08-30] MEDS: REMEDY ESSENTIAL ZINC PASTE 113 GM TP SCH ×2 (08:34→21:16)
[2022-08-30 20:00] VITALS: TEMP 97.6
[2022-08-30] MEDS: CHOLECALCIFEROL 1,000 UNIT TABLET GT SCH (21:15)
[2022-08-30] MEDS: THIAMINE HCL 100 MG TABLET GT SCH (21:25)
[2022-08-30] MEDS: FOLIC ACID 1 MG TABLET GT SCH (21:25)
[2022-08-31] MEDS: IPRATROPIUM BROMIDE 0.5 MG/2.5 ML NEBU NEB SCH ×7 (00:22→23:24)
[2022-08-31] MEDS: ALBUTEROL SULFATE 2.5 MG/3 ML NEBU NEB SCH ×7 (00:23→23:24)
[2022-08-31] MEDS: BACLOFEN 10 MG TABLET GT SCH ×3 (06:09→22:55)
[2022-08-31] MEDS: OMEPRAZOLE 20 MG CAPSULE.DR GT SCH (06:09)
[2022-08-31] MEDS: BACLOFEN 20 MG TABLET GT SCH ×3 (06:09→22:55)
[2022-08-31] MEDS: METOCLOPRAMIDE HCL 5 MG TABLET GT SCH ×3 (06:09→22:55)
[2022-08-31] MEDS: MIDODRINE HCL 10 MG TABLET GT SCH ×3 (06:09→22:56)
[2022-08-31] MEDS: MAGNESIUM OXIDE 400 MG TABLET GT SCH (06:09)
[2022-08-31 07:28] VITALS: TEMP 97.8
[2022-08-31] MEDS: ACIDOPHILUS/BULGARICUS CHEW TAB GT SCH ×2 (08:21→21:00)
[2022-08-31] MEDS: NYSTATIN CREAM 30 GM TUBE TP SCH ×4 (08:21→21:00)
[2022-08-31] MEDS: FUROSEMIDE 10 MG/ML GT SCH (08:21)
[2022-08-31] MEDS: levETIRAcetam 500 MG/5 ML LIQUID UDC GT SCH ×2 (08:21→21:00)
[2022-08-31] MEDS: PHENYTOIN 100 MG/4 ML UDC GT SCH ×2 (08:21→21:00)
[2022-08-31] MEDS: FERROUS SULFATE 330 MG/7.5 ML UDC- FOR SA ONLY GT SCH ×2 (08:21→21:00)
[2022-08-31] MEDS: POTASSIUM CHLORIDE 40 MEQ/30 ML LIQUID UDC GT SCH (08:21)
[2022-08-31] MEDS: TRIAMCINOLONE ACET 0.1% CREAM 15 GM TUBE TP SCH ×2 (08:21→21:00)
[2022-08-31] MEDS: REMEDY ESSENTIAL ZINC PASTE 113 GM TP SCH ×2 (08:22→21:00)
[2022-08-31] MEDS: NYSTATIN POWDER 15 GM BOTTLE TP SCH ×2 (08:22→21:00)
[2022-08-31] MEDS: HYDROGEN PEROXIDE 3% 118 ML BOTTLE TP SCH ×2 (08:25→19:16)
[2022-08-31 20:43] VITALS: TEMP 97.8
[2022-08-31] MEDS: FOLIC ACID 1 MG TABLET GT SCH (21:00)
[2022-08-31] MEDS: THIAMINE HCL 100 MG TABLET GT SCH (21:00)
[2022-08-31] MEDS: CHOLECALCIFEROL 1,000 UNIT TABLET GT SCH (21:00)
[2022-09-01] MEDS: IPRATROPIUM BROMIDE 0.5 MG/2.5 ML NEBU NEB SCH ×6 (03:30→23:31)
[2022-09-01] MEDS: ALBUTEROL SULFATE 2.5 MG/3 ML NEBU NEB SCH ×6 (03:31→23:31)
[2022-09-01] MEDS: BACLOFEN 20 MG TABLET GT SCH ×3 (05:12→22:52)
[2022-09-01] MEDS: BACLOFEN 10 MG TABLET GT SCH ×3 (05:12→22:52)
[2022-09-01] MEDS: MAGNESIUM OXIDE 400 MG TABLET GT SCH (05:12)
[2022-09-01] MEDS: OMEPRAZOLE 20 MG CAPSULE.DR GT SCH (05:13)
[2022-09-01] MEDS: MIDODRINE HCL 10 MG TABLET GT SCH ×3 (05:32→22:52)
[2022-09-01] MEDS: METOCLOPRAMIDE HCL 5 MG TABLET GT SCH ×3 (05:32→22:52)
[2022-09-01 07:24] VITALS: TEMP 98.3
[2022-09-01] MEDS: HYDROGEN PEROXIDE 3% 118 ML BOTTLE TP SCH ×2 (07:52→19:16)
[2022-09-01] MEDS: TRIAMCINOLONE ACET 0.1% CREAM 15 GM TUBE TP SCH ×2 (09:34→21:00)
[2022-09-01] MEDS: NYSTATIN POWDER 15 GM BOTTLE TP SCH ×2 (09:34→21:00)
[2022-09-01] MEDS: FUROSEMIDE 10 MG/ML GT SCH (09:34)
[2022-09-01] MEDS: levETIRAcetam 500 MG/5 ML LIQUID UDC GT SCH ×2 (09:34→21:00)
[2022-09-01] MEDS: POTASSIUM CHLORIDE 40 MEQ/30 ML LIQUID UDC GT SCH (09:34)
[2022-09-01] MEDS: NYSTATIN CREAM 30 GM TUBE TP SCH ×4 (09:34→21:00)
[2022-09-01] MEDS: ACIDOPHILUS/BULGARICUS CHEW TAB GT SCH ×2 (09:34→21:00)
[2022-09-01] MEDS: FERROUS SULFATE 330 MG/7.5 ML UDC- FOR SA ONLY GT SCH ×2 (09:34→21:00)
[2022-09-01] MEDS: PHENYTOIN 100 MG/4 ML UDC GT SCH ×2 (09:34→21:00)
[2022-09-01] MEDS: REMEDY ESSENTIAL ZINC PASTE 113 GM TP SCH ×2 (09:35→21:00)
[2022-09-01 19:53] VITALS: TEMP 98.2
[2022-09-01] MEDS: MIRALAX 17 GM POWD.PACK GT SCH (21:00)
[2022-09-01] MEDS: CHOLECALCIFEROL 1,000 UNIT TABLET GT SCH (21:00)
[2022-09-01] MEDS: THIAMINE HCL 100 MG TABLET GT SCH (21:00)
[2022-09-01] MEDS: FOLIC ACID 1 MG TABLET GT SCH (21:00)
[2022-09-02] MEDS: IPRATROPIUM BROMIDE 0.5 MG/2.5 ML NEBU NEB SCH ×6 (03:54→23:05)
[2022-09-02] MEDS: ALBUTEROL SULFATE 2.5 MG/3 ML NEBU NEB SCH ×6 (03:54→23:05)
[2022-09-02] MEDS: MIDODRINE HCL 10 MG TABLET GT SCH ×3 (06:00→21:59)
[2022-09-02] MEDS: BACLOFEN 10 MG TABLET GT SCH ×3 (06:32→21:59)
[2022-09-02] MEDS: BACLOFEN 20 MG TABLET GT SCH ×3 (06:32→21:59)
[2022-09-02] MEDS: MAGNESIUM OXIDE 400 MG TABLET GT SCH (06:32)
[2022-09-02] MEDS: OMEPRAZOLE 20 MG CAPSULE.DR GT SCH (06:32)
[2022-09-02] MEDS: METOCLOPRAMIDE HCL 5 MG TABLET GT SCH ×3 (06:32→21:59)
[2022-09-02 07:22] VITALS: TEMP 97.5
[2022-09-02] MEDS: HYDROGEN PEROXIDE 3% 118 ML BOTTLE TP SCH ×2 (07:39→19:03)
[2022-09-02] MEDS: PHENYTOIN 100 MG/4 ML UDC GT SCH (09:00)
[2022-09-02] MEDS: FERROUS SULFATE 330 MG/7.5 ML UDC- FOR SA ONLY GT SCH ×2 (09:29→20:29)
[2022-09-02] MEDS: ACIDOPHILUS/BULGARICUS CHEW TAB GT SCH ×2 (09:30→20:29)
[2022-09-02] MEDS: FUROSEMIDE 10 MG/ML GT SCH (09:30)
[2022-09-02] MEDS: levETIRAcetam 500 MG/5 ML LIQUID UDC GT SCH ×2 (09:32→20:29)
[2022-09-02] MEDS: POTASSIUM CHLORIDE 40 MEQ/30 ML LIQUID UDC GT SCH (09:34)
[2022-09-02] MEDS: TRIAMCINOLONE ACET 0.1% CREAM 15 GM TUBE TP SCH ×2 (09:34→20:29)
[2022-09-02] MEDS: NYSTATIN POWDER 15 GM BOTTLE TP SCH ×2 (09:35→20:30)
[2022-09-02] MEDS: NYSTATIN CREAM 30 GM TUBE TP SCH ×4 (09:35→20:29)
[2022-09-02] MEDS: REMEDY ESSENTIAL ZINC PASTE 113 GM TP SCH ×2 (09:35→20:30)
[2022-09-02 20:15] VITALS: TEMP 97.6
[2022-09-02] MEDS: FOLIC ACID 1 MG TABLET GT SCH (20:29)
[2022-09-02] MEDS: CHOLECALCIFEROL 1,000 UNIT TABLET GT SCH (20:29)
[2022-09-02] MEDS: THIAMINE HCL 100 MG TABLET GT SCH (20:29)
[2022-09-03] MEDS: IPRATROPIUM BROMIDE 0.5 MG/2.5 ML NEBU NEB SCH ×6 (02:54→23:30)
[2022-09-03] MEDS: ALBUTEROL SULFATE 2.5 MG/3 ML NEBU NEB SCH ×6 (02:54→23:30)
[2022-09-03] MEDS: VITAL AF 1.2 1,000 ML LIQUID GT PRN (04:55)
[2022-09-03] MEDS: MAGNESIUM OXIDE 400 MG TABLET GT SCH (05:00)
[2022-09-03] MEDS: BACLOFEN 10 MG TABLET GT SCH ×3 (05:00→21:41)
[2022-09-03] MEDS: BACLOFEN 20 MG TABLET GT SCH ×3 (05:00→21:41)
[2022-09-03] MEDS: METOCLOPRAMIDE HCL 5 MG TABLET GT SCH ×3 (05:01→21:42)
[2022-09-03] MEDS: MIDODRINE HCL 10 MG TABLET GT SCH ×3 (05:01→21:42)
[2022-09-03] MEDS: OMEPRAZOLE 20 MG CAPSULE.DR GT SCH (05:01)
[2022-09-03] MEDS: HYDROGEN PEROXIDE 3% 118 ML BOTTLE TP SCH ×2 (07:31→21:03)
[2022-09-03 08:00] VITALS: TEMP 97.6
[2022-09-03] MEDS: FUROSEMIDE 10 MG/ML GT SCH (09:32)
[2022-09-03] MEDS: ACIDOPHILUS/BULGARICUS CHEW TAB GT SCH ×2 (09:32→20:15)
[2022-09-03] MEDS: FERROUS SULFATE 330 MG/7.5 ML UDC- FOR SA ONLY GT SCH ×2 (09:32→20:15)
[2022-09-03] MEDS: levETIRAcetam 500 MG/5 ML LIQUID UDC GT SCH ×2 (09:33→20:15)
[2022-09-03] MEDS: REMEDY ESSENTIAL ZINC PASTE 113 GM TP SCH ×2 (09:35→20:17)
[2022-09-03] MEDS: NYSTATIN CREAM 30 GM TUBE TP SCH ×4 (09:35→20:17)
[2022-09-03] MEDS: POTASSIUM CHLORIDE 40 MEQ/30 ML LIQUID UDC GT SCH (09:35)
[2022-09-03] MEDS: TRIAMCINOLONE ACET 0.1% CREAM 15 GM TUBE TP SCH ×2 (09:35→20:17)
[2022-09-03] MEDS: NYSTATIN POWDER 15 GM BOTTLE TP SCH ×2 (09:35→20:17)
[2022-09-03] MEDS: FOLIC ACID 1 MG TABLET GT SCH (20:15)
[2022-09-03] MEDS: MIRALAX 17 GM POWD.PACK GT SCH (20:15)
[2022-09-03] MEDS: CHOLECALCIFEROL 1,000 UNIT TABLET GT SCH (20:16)
[2022-09-03] MEDS: THIAMINE HCL 100 MG TABLET GT SCH (20:16)
[2022-09-03 21:06] VITALS: TEMP 97.6
[2022-09-04] MEDS: IPRATROPIUM BROMIDE 0.5 MG/2.5 ML NEBU NEB SCH ×6 (03:33→23:17)
[2022-09-04] MEDS: ALBUTEROL SULFATE 2.5 MG/3 ML NEBU NEB SCH ×6 (03:33→23:17)
[2022-09-04] MEDS: BACLOFEN 20 MG TABLET GT SCH ×3 (05:21→22:46)
[2022-09-04] MEDS: MAGNESIUM OXIDE 400 MG TABLET GT SCH (05:21)
[2022-09-04] MEDS: BACLOFEN 10 MG TABLET GT SCH ×3 (05:21→22:46)
[2022-09-04] MEDS: OMEPRAZOLE 20 MG CAPSULE.DR GT SCH (05:22)
[2022-09-04] MEDS: MIDODRINE HCL 10 MG TABLET GT SCH ×3 (05:22→22:47)
[2022-09-04] MEDS: METOCLOPRAMIDE HCL 5 MG TABLET GT SCH ×3 (05:22→22:47)
[2022-09-04] MEDS: HYDROGEN PEROXIDE 3% 118 ML BOTTLE TP SCH ×2 (07:54→19:10)
[2022-09-04 08:00] VITALS: TEMP 98
[2022-09-04] MEDS: FERROUS SULFATE 330 MG/7.5 ML UDC- FOR SA ONLY GT SCH ×2 (08:53→20:28)
[2022-09-04] MEDS: ACIDOPHILUS/BULGARICUS CHEW TAB GT SCH ×2 (08:53→20:28)
[2022-09-04] MEDS: levETIRAcetam 500 MG/5 ML LIQUID UDC GT SCH ×2 (08:54→20:28)
[2022-09-04] MEDS: FUROSEMIDE 10 MG/ML GT SCH (08:54)
[2022-09-04] MEDS: TRIAMCINOLONE ACET 0.1% CREAM 15 GM TUBE TP SCH ×2 (08:55→20:28)
[2022-09-04] MEDS: NYSTATIN POWDER 15 GM BOTTLE TP SCH ×2 (08:55→20:28)
[2022-09-04] MEDS: POTASSIUM CHLORIDE 40 MEQ/30 ML LIQUID UDC GT SCH (08:55)
[2022-09-04] MEDS: REMEDY ESSENTIAL ZINC PASTE 113 GM TP SCH ×2 (08:55→20:29)
[2022-09-04] MEDS: NYSTATIN CREAM 30 GM TUBE TP SCH ×4 (08:55→20:28)
[2022-09-04 20:00] VITALS: TEMP 94.4
[2022-09-04] MEDS: THIAMINE HCL 100 MG TABLET GT SCH (20:28)
[2022-09-04] MEDS: FOLIC ACID 1 MG TABLET GT SCH (20:28)
[2022-09-04] MEDS: CHOLECALCIFEROL 1,000 UNIT TABLET GT SCH (20:28)
[2022-09-04] MEDS: PHENYTOIN 100 MG/4 ML UDC GT SCH (20:28)
[2022-09-05] MEDS: IPRATROPIUM BROMIDE 0.5 MG/2.5 ML NEBU NEB SCH ×6 (03:25→23:48)
[2022-09-05] MEDS: ALBUTEROL SULFATE 2.5 MG/3 ML NEBU NEB SCH ×6 (03:25→23:48)
[2022-09-05] MEDS: MAGNESIUM OXIDE 400 MG TABLET GT SCH (05:11)
[2022-09-05] MEDS: BACLOFEN 20 MG TABLET GT SCH ×3 (05:11→21:46)
[2022-09-05] MEDS: BACLOFEN 10 MG TABLET GT SCH ×3 (05:11→21:46)
[2022-09-05] MEDS: METOCLOPRAMIDE HCL 5 MG TABLET GT SCH ×3 (05:12→21:46)
[2022-09-05] MEDS: OMEPRAZOLE 20 MG CAPSULE.DR GT SCH (05:12)
[2022-09-05] MEDS: MIDODRINE HCL 10 MG TABLET GT SCH ×3 (05:12→21:47)
[2022-09-05 07:51] VITALS: TEMP 98.1
[2022-09-05] MEDS: HYDROGEN PEROXIDE 3% 118 ML BOTTLE TP SCH ×2 (09:00→21:11)
[2022-09-05] MEDS: ACIDOPHILUS/BULGARICUS CHEW TAB GT SCH ×2 (09:11→21:32)
[2022-09-05] MEDS: FERROUS SULFATE 330 MG/7.5 ML UDC- FOR SA ONLY GT SCH ×2 (09:11→21:33)
[2022-09-05] MEDS: PHENYTOIN 100 MG/4 ML UDC GT SCH ×2 (09:11→21:32)
[2022-09-05] MEDS: levETIRAcetam 500 MG/5 ML LIQUID UDC GT SCH ×2 (09:12→21:40)
[2022-09-05] MEDS: POTASSIUM CHLORIDE 40 MEQ/30 ML LIQUID UDC GT SCH (09:12)
[2022-09-05] MEDS: FUROSEMIDE 10 MG/ML GT SCH (09:12)
[2022-09-05] MEDS: TRIAMCINOLONE ACET 0.1% CREAM 15 GM TUBE TP SCH ×2 (09:13→21:42)
[2022-09-05] MEDS: NYSTATIN CREAM 30 GM TUBE TP SCH ×4 (09:13→21:42)
[2022-09-05] MEDS: NYSTATIN POWDER 15 GM BOTTLE TP SCH ×2 (09:14→21:42)
[2022-09-05] MEDS: REMEDY ESSENTIAL ZINC PASTE 113 GM TP SCH ×2 (09:14→21:42)
[2022-09-05 20:43] VITALS: TEMP 97
[2022-09-05] MEDS: MIRALAX 17 GM POWD.PACK GT SCH (21:41)
[2022-09-05] MEDS: CHOLECALCIFEROL 1,000 UNIT TABLET GT SCH (21:41)
[2022-09-05] MEDS: FOLIC ACID 1 MG TABLET GT SCH (21:46)
[2022-09-05] MEDS: THIAMINE HCL 100 MG TABLET GT SCH (21:46)
[2022-09-06] MEDS: ALBUTEROL SULFATE 2.5 MG/3 ML NEBU NEB SCH ×6 (04:07→23:49)
[2022-09-06] MEDS: IPRATROPIUM BROMIDE 0.5 MG/2.5 ML NEBU NEB SCH ×6 (04:07→23:49)
[2022-09-06] MEDS: MAGNESIUM OXIDE 400 MG TABLET GT SCH (05:29)
[2022-09-06] MEDS: BACLOFEN 10 MG TABLET GT SCH ×3 (05:29→22:12)
[2022-09-06] MEDS: BACLOFEN 20 MG TABLET GT SCH ×3 (05:29→22:12)
[2022-09-06] MEDS: METOCLOPRAMIDE HCL 5 MG TABLET GT SCH ×3 (05:30→22:16)
[2022-09-06] MEDS: OMEPRAZOLE 20 MG CAPSULE.DR GT SCH (05:30)
[2022-09-06] MEDS: MIDODRINE HCL 10 MG TABLET GT SCH ×3 (05:30→22:16)
[2022-09-06] MEDS: VITAL AF 1.2 1,000 ML LIQUID GT PRN (05:30)
[2022-09-06 07:40] VITALS: TEMP 96.2
[2022-09-06] MEDS: HYDROGEN PEROXIDE 3% 118 ML BOTTLE TP SCH ×2 (08:03→17:24)
[2022-09-06] MEDS: PHENYTOIN 100 MG/4 ML UDC GT SCH ×2 (09:29→20:42)
[2022-09-06] MEDS: FUROSEMIDE 10 MG/ML GT SCH (09:29)
[2022-09-06] MEDS: levETIRAcetam 500 MG/5 ML LIQUID UDC GT SCH ×2 (09:29→20:42)
[2022-09-06] MEDS: FERROUS SULFATE 330 MG/7.5 ML UDC- FOR SA ONLY GT SCH ×2 (09:29→20:42)
[2022-09-06] MEDS: ACIDOPHILUS/BULGARICUS CHEW TAB GT SCH ×2 (09:29→20:42)
[2022-09-06] MEDS: POTASSIUM CHLORIDE 40 MEQ/30 ML LIQUID UDC GT SCH (09:31)
[2022-09-06] MEDS: TRIAMCINOLONE ACET 0.1% CREAM 15 GM TUBE TP SCH ×2 (09:31→20:44)
[2022-09-06] MEDS: REMEDY ESSENTIAL ZINC PASTE 113 GM TP SCH ×2 (09:31→20:44)
[2022-09-06] MEDS: NYSTATIN POWDER 15 GM BOTTLE TP SCH ×2 (09:31→20:44)
[2022-09-06] MEDS: NYSTATIN CREAM 30 GM TUBE TP SCH ×4 (09:31→20:44)
[2022-09-06 20:23] VITALS: TEMP 97.2
[2022-09-06] MEDS: FOLIC ACID 1 MG TABLET GT SCH (20:42)
[2022-09-06] MEDS: THIAMINE HCL 100 MG TABLET GT SCH (20:44)
[2022-09-06] MEDS: CHOLECALCIFEROL 1,000 UNIT TABLET GT SCH (20:44)
[2022-09-07] MEDS: IPRATROPIUM BROMIDE 0.5 MG/2.5 ML NEBU NEB SCH ×5 (03:40→20:24)
[2022-09-07] MEDS: ALBUTEROL SULFATE 2.5 MG/3 ML NEBU NEB SCH ×5 (03:41→20:24)
[2022-09-07] MEDS: BACLOFEN 10 MG TABLET GT SCH ×3 (06:04→21:20)
[2022-09-07] MEDS: BACLOFEN 20 MG TABLET GT SCH ×3 (06:04→21:20)
[2022-09-07] MEDS: MAGNESIUM OXIDE 400 MG TABLET GT SCH (06:04)
[2022-09-07] MEDS: MIDODRINE HCL 10 MG TABLET GT SCH ×3 (06:05→21:20)
[2022-09-07] MEDS: OMEPRAZOLE 20 MG CAPSULE.DR GT SCH (06:05)
[2022-09-07] MEDS: METOCLOPRAMIDE HCL 5 MG TABLET GT SCH ×3 (06:05→21:20)
[2022-09-07 08:04] VITALS: TEMP 97.7
[2022-09-07] MEDS: HYDROGEN PEROXIDE 3% 118 ML BOTTLE TP SCH ×2 (08:12→20:49)
[2022-09-07] MEDS: FERROUS SULFATE 330 MG/7.5 ML UDC- FOR SA ONLY GT SCH ×2 (09:09→20:54)
[2022-09-07] MEDS: PHENYTOIN 100 MG/4 ML UDC GT SCH ×2 (09:09→20:54)
[2022-09-07] MEDS: ACIDOPHILUS/BULGARICUS CHEW TAB GT SCH ×2 (09:10→20:54)
[2022-09-07] MEDS: FUROSEMIDE 10 MG/ML GT SCH (09:10)
[2022-09-07] MEDS: levETIRAcetam 500 MG/5 ML LIQUID UDC GT SCH ×2 (09:11→20:54)
[2022-09-07] MEDS: POTASSIUM CHLORIDE 40 MEQ/30 ML LIQUID UDC GT SCH (09:11)
[2022-09-07] MEDS: TRIAMCINOLONE ACET 0.1% CREAM 15 GM TUBE TP SCH ×2 (09:12→20:54)
[2022-09-07] MEDS: NYSTATIN POWDER 15 GM BOTTLE TP SCH ×2 (09:14→20:55)
[2022-09-07] MEDS: NYSTATIN CREAM 30 GM TUBE TP SCH ×4 (09:14→20:54)
[2022-09-07] MEDS: REMEDY ESSENTIAL ZINC PASTE 113 GM TP SCH ×2 (09:14→20:55)
[2022-09-07] MEDS: VITAL AF 1.2 1,000 ML LIQUID GT PRN (14:20)
[2022-09-07 20:51] VITALS: TEMP 97.3
[2022-09-07] MEDS: THIAMINE HCL 100 MG TABLET GT SCH (20:54)
[2022-09-07] MEDS: CHOLECALCIFEROL 1,000 UNIT TABLET GT SCH (20:54)
[2022-09-07] MEDS: FOLIC ACID 1 MG TABLET GT SCH (20:54)
[2022-09-08] MEDS: ALBUTEROL SULFATE 2.5 MG/3 ML NEBU NEB SCH ×6 (00:06→19:11)
[2022-09-08] MEDS: IPRATROPIUM BROMIDE 0.5 MG/2.5 ML NEBU NEB SCH ×6 (00:06→19:11)
[2022-09-08] MEDS: BACLOFEN 10 MG TABLET GT SCH ×3 (05:06→21:11)
[2022-09-08] MEDS: BACLOFEN 20 MG TABLET GT SCH ×3 (05:06→21:11)
[2022-09-08] MEDS: METOCLOPRAMIDE HCL 5 MG TABLET GT SCH ×3 (05:06→21:11)
[2022-09-08] MEDS: MAGNESIUM OXIDE 400 MG TABLET GT SCH (05:06)
[2022-09-08] MEDS: MIDODRINE HCL 10 MG TABLET GT SCH ×3 (05:06→21:11)
[2022-09-08] MEDS: OMEPRAZOLE 20 MG CAPSULE.DR GT SCH (05:06)
[2022-09-08 07:34] VITALS: TEMP 97.1
[2022-09-08] MEDS: HYDROGEN PEROXIDE 3% 118 ML BOTTLE TP SCH ×2 (08:09→19:11)
[2022-09-08] MEDS: PHENYTOIN 100 MG/4 ML UDC GT SCH ×2 (08:27→21:09)
[2022-09-08] MEDS: ACIDOPHILUS/BULGARICUS CHEW TAB GT SCH ×2 (08:30→21:09)
[2022-09-08] MEDS: FUROSEMIDE 10 MG/ML GT SCH (08:30)
[2022-09-08] MEDS: FERROUS SULFATE 330 MG/7.5 ML UDC- FOR SA ONLY GT SCH ×2 (08:30→21:09)
[2022-09-08] MEDS: levETIRAcetam 500 MG/5 ML LIQUID UDC GT SCH ×2 (08:31→21:09)
[2022-09-08] MEDS: POTASSIUM CHLORIDE 40 MEQ/30 ML LIQUID UDC GT SCH (08:31)
[2022-09-08] MEDS: REMEDY ESSENTIAL ZINC PASTE 113 GM TP SCH ×2 (08:32→21:10)
[2022-09-08] MEDS: NYSTATIN CREAM 30 GM TUBE TP SCH ×4 (08:32→21:10)
[2022-09-08] MEDS: TRIAMCINOLONE ACET 0.1% CREAM 15 GM TUBE TP SCH ×2 (08:32→21:09)
[2022-09-08] MEDS: NYSTATIN POWDER 15 GM BOTTLE TP SCH ×2 (08:32→21:10)
[2022-09-08] MEDS: VITAL AF 1.2 1,000 ML LIQUID GT PRN (16:30)
[2022-09-08 20:24] VITALS: TEMP 96
[2022-09-08] MEDS: CHOLECALCIFEROL 1,000 UNIT TABLET GT SCH (21:09)
[2022-09-08] MEDS: THIAMINE HCL 100 MG TABLET GT SCH (21:09)
[2022-09-08] MEDS: FOLIC ACID 1 MG TABLET GT SCH (21:09)
[2022-09-08] MEDS: MIRALAX 17 GM POWD.PACK GT SCH (21:09)
[2022-09-09] MEDS: IPRATROPIUM BROMIDE 0.5 MG/2.5 ML NEBU NEB SCH ×7 (03:34→23:59)
[2022-09-09] MEDS: ALBUTEROL SULFATE 2.5 MG/3 ML NEBU NEB SCH ×7 (03:34→23:59)
[2022-09-09] MEDS: MIDODRINE HCL 10 MG TABLET GT SCH ×3 (05:05→21:29)
[2022-09-09] MEDS: BACLOFEN 20 MG TABLET GT SCH ×3 (05:05→21:29)
[2022-09-09] MEDS: BACLOFEN 10 MG TABLET GT SCH ×3 (05:05→21:29)
[2022-09-09] MEDS: MAGNESIUM OXIDE 400 MG TABLET GT SCH (05:05)
[2022-09-09] MEDS: OMEPRAZOLE 20 MG CAPSULE.DR GT SCH (05:06)
[2022-09-09] MEDS: METOCLOPRAMIDE HCL 5 MG TABLET GT SCH ×3 (05:06→21:30)
[2022-09-09 07:28] VITALS: TEMP 97
[2022-09-09] MEDS: ACIDOPHILUS/BULGARICUS CHEW TAB GT SCH ×2 (08:51→21:28)
[2022-09-09] MEDS: POTASSIUM CHLORIDE 40 MEQ/30 ML LIQUID UDC GT SCH (08:51)
[2022-09-09] MEDS: levETIRAcetam 500 MG/5 ML LIQUID UDC GT SCH ×2 (08:51→21:29)
[2022-09-09] MEDS: NYSTATIN CREAM 30 GM TUBE TP SCH ×4 (08:51→21:29)
[2022-09-09] MEDS: FERROUS SULFATE 330 MG/7.5 ML UDC- FOR SA ONLY GT SCH ×2 (08:51→21:28)
[2022-09-09] MEDS: PHENYTOIN 100 MG/4 ML UDC GT SCH ×2 (08:51→21:28)
[2022-09-09] MEDS: FUROSEMIDE 10 MG/ML GT SCH (08:51)
[2022-09-09] MEDS: NYSTATIN POWDER 15 GM BOTTLE TP SCH (08:52)
[2022-09-09] MEDS: REMEDY ESSENTIAL ZINC PASTE 113 GM TP SCH ×2 (08:52→21:30)
[2022-09-09] MEDS: HYDROGEN PEROXIDE 3% 118 ML BOTTLE TP SCH ×2 (09:00→21:40)
[2022-09-09] MEDS: TRIAMCINOLONE ACET 0.1% CREAM 15 GM TUBE TP SCH ×2 (09:00→21:29)
[2022-09-09 21:18] VITALS: TEMP 97.7
[2022-09-09] MEDS: FOLIC ACID 1 MG TABLET GT SCH (21:28)
[2022-09-09] MEDS: CHOLECALCIFEROL 1,000 UNIT TABLET GT SCH (21:29)
[2022-09-09] MEDS: THIAMINE HCL 100 MG TABLET GT SCH (21:29)
[2022-09-10] MEDS: VITAL AF 1.2 1,000 ML LIQUID GT PRN (02:15)
[2022-09-10] MEDS: IPRATROPIUM BROMIDE 0.5 MG/2.5 ML NEBU NEB SCH ×6 (03:30→23:01)
[2022-09-10] MEDS: ALBUTEROL SULFATE 2.5 MG/3 ML NEBU NEB SCH ×6 (03:30→23:01)
[2022-09-10] MEDS: OMEPRAZOLE 20 MG CAPSULE.DR GT SCH (06:10)
[2022-09-10] MEDS: BACLOFEN 10 MG TABLET GT SCH ×3 (06:10→21:09)
[2022-09-10] MEDS: MIDODRINE HCL 10 MG TABLET GT SCH ×3 (06:10→21:10)
[2022-09-10] MEDS: BACLOFEN 20 MG TABLET GT SCH ×3 (06:10→21:10)
[2022-09-10] MEDS: MAGNESIUM OXIDE 400 MG TABLET GT SCH (06:10)
[2022-09-10] MEDS: METOCLOPRAMIDE HCL 5 MG TABLET GT SCH ×3 (06:11→21:11)
[2022-09-10 07:25] VITALS: TEMP 97
[2022-09-10] MEDS: HYDROGEN PEROXIDE 3% 118 ML BOTTLE TP SCH ×2 (07:26→19:01)
[2022-09-10] MEDS: FERROUS SULFATE 330 MG/7.5 ML UDC- FOR SA ONLY GT SCH ×2 (08:28→21:09)
[2022-09-10] MEDS: PHENYTOIN 100 MG/4 ML UDC GT SCH ×2 (08:28→21:09)
[2022-09-10] MEDS: ACIDOPHILUS/BULGARICUS CHEW TAB GT SCH ×2 (08:29→21:09)
[2022-09-10] MEDS: levETIRAcetam 500 MG/5 ML LIQUID UDC GT SCH ×2 (08:30→21:09)
[2022-09-10] MEDS: FUROSEMIDE 10 MG/ML GT SCH (08:30)
[2022-09-10] MEDS: NYSTATIN CREAM 30 GM TUBE TP SCH ×4 (08:31→21:09)
[2022-09-10] MEDS: TRIAMCINOLONE ACET 0.1% CREAM 15 GM TUBE TP SCH ×2 (08:31→21:09)
[2022-09-10] MEDS: POTASSIUM CHLORIDE 40 MEQ/30 ML LIQUID UDC GT SCH (08:31)
[2022-09-10] MEDS: REMEDY ESSENTIAL ZINC PASTE 113 GM TP SCH ×2 (08:32→21:09)
[2022-09-10 20:00] VITALS: TEMP 97.6
[2022-09-10] MEDS: CHOLECALCIFEROL 1,000 UNIT TABLET GT SCH (21:09)
[2022-09-10] MEDS: MIRALAX 17 GM POWD.PACK GT SCH (21:09)
[2022-09-10] MEDS: FOLIC ACID 1 MG TABLET GT SCH (21:09)
[2022-09-10] MEDS: THIAMINE HCL 100 MG TABLET GT SCH (21:09)
[2022-09-11] MEDS: ALBUTEROL SULFATE 2.5 MG/3 ML NEBU NEB SCH ×6 (03:31→23:05)
[2022-09-11] MEDS: IPRATROPIUM BROMIDE 0.5 MG/2.5 ML NEBU NEB SCH ×6 (03:31→23:05)
[2022-09-11] MEDS: BACLOFEN 10 MG TABLET GT SCH ×3 (06:01→21:51)
[2022-09-11] MEDS: MAGNESIUM OXIDE 400 MG TABLET GT SCH (06:01)
[2022-09-11] MEDS: BACLOFEN 20 MG TABLET GT SCH ×3 (06:01→21:51)
[2022-09-11 06:02] VITALS: BP 97/56; O2SAT 99
[2022-09-11] MEDS: MIDODRINE HCL 10 MG TABLET GT SCH ×3 (06:02→21:51)
[2022-09-11] MEDS: OMEPRAZOLE 20 MG CAPSULE.DR GT SCH (06:02)
[2022-09-11] MEDS: METOCLOPRAMIDE HCL 5 MG TABLET GT SCH ×3 (06:02→21:51)
[2022-09-11 07:06] LABS: BASOPHILS # (AUTO) 0.1 K/UL (0.0-0.2); BASOPHILS % (AUTO) 0.9 % (0.0-2.0); EOSINOPHILS # (AUTO) 0.2 K/uL (0.0-0.7); EOSINOPHILS % (AUTO) 2.1 % (0.0-7.0); HEMATOCRIT 31.1 % (31.2-41.9); HEMOGLOBIN 10.4 g/dL (10.9-14.3); LYMPHOCYTES # (AUTO) 1.9 K/uL (0.8-4.8); LYMPHOCYTES % (AUTO) 25.1 % (20.5-51.5); MEAN CORPUSCULAR HEMOGLOBIN 32.3 uug (24.7-32.8); MEAN CORPUSCULAR HGB CONC 34 g/dL (32.3-35.6); MEAN CORPUSCULAR VOLUME 96.5 fL (75.5-95.3); MONOCYTES # (AUTO) 0.4 K/uL (0.1-1.30); MONOCYTES % (AUTO) 4.7 % (0.0-11.0); NEUTROPHILS % (AUTO) 67.2 % (38.5-71.5); PLATELET COUNT (AUTO) 395 K/uL (179-408); RED BLOOD CELL COUNT(AUTO) 3.23 MIL/uL (3.63-4.92); RED CELL DISTRIBUTION WIDTH 22.1 % (12.3-17.7); WHITE BLOOD COUNT (AUTO) 7.5 K/uL (3.8-11.8)
[2022-09-11 07:23] LABS: CALCIUM 8.4 mg/dL (8.5-10.1); CARBON DIOXIDE 19 mmol/L (21-32); CHLORIDE 112 mmol/L (98-107); CREATININE 0.5 mg/dL (0.6-1.3); GLUCOSE 81 mg/dL (74-106); MAGNESIUM 2.1 mg/dL (1.8-2.4); SODIUM SERUM 142 mmol/L (136-145); UREA NITROGEN, BLOOD 21 mg/dL (7-18)
[2022-09-11 07:31] VITALS: TEMP 96.3
[2022-09-11 07:54] LABS: DIFFERENTIAL COMMENT 1
[2022-09-11] MEDS: HYDROGEN PEROXIDE 3% 118 ML BOTTLE TP SCH ×2 (07:57→19:02)
[2022-09-11] MEDS: FERROUS SULFATE 330 MG/7.5 ML UDC- FOR SA ONLY GT SCH ×2 (08:30→20:35)
[2022-09-11] MEDS: PHENYTOIN 100 MG/4 ML UDC GT SCH ×2 (08:30→20:35)
[2022-09-11] MEDS: FUROSEMIDE 10 MG/ML GT SCH (08:31)
[2022-09-11] MEDS: levETIRAcetam 500 MG/5 ML LIQUID UDC GT SCH ×2 (08:31→20:35)
[2022-09-11] MEDS: ACIDOPHILUS/BULGARICUS CHEW TAB GT SCH ×2 (08:31→20:35)
[2022-09-11] MEDS: POTASSIUM CHLORIDE 40 MEQ/30 ML LIQUID UDC GT SCH (08:32)
[2022-09-11] MEDS: NYSTATIN CREAM 30 GM TUBE TP SCH ×4 (08:33→20:36)
[2022-09-11] MEDS: REMEDY ESSENTIAL ZINC PASTE 113 GM TP SCH ×2 (08:33→20:36)
[2022-09-11] MEDS: TRIAMCINOLONE ACET 0.1% CREAM 15 GM TUBE TP SCH ×2 (08:33→20:35)
[2022-09-11 20:13] VITALS: TEMP 96.4
[2022-09-11] MEDS: FOLIC ACID 1 MG TABLET GT SCH (20:35)
[2022-09-11] MEDS: CHOLECALCIFEROL 1,000 UNIT TABLET GT SCH (20:35)
[2022-09-11] MEDS: THIAMINE HCL 100 MG TABLET GT SCH (20:35)
[2022-09-12] MEDS: ALBUTEROL SULFATE 2.5 MG/3 ML NEBU NEB SCH ×6 (03:31→23:21)
[2022-09-12] MEDS: IPRATROPIUM BROMIDE 0.5 MG/2.5 ML NEBU NEB SCH ×6 (03:31→23:21)
[2022-09-12] MEDS: BACLOFEN 10 MG TABLET GT SCH ×3 (05:33→21:19)
[2022-09-12] MEDS: MAGNESIUM OXIDE 400 MG TABLET GT SCH (05:33)
[2022-09-12] MEDS: BACLOFEN 20 MG TABLET GT SCH ×3 (05:33→21:19)
[2022-09-12] MEDS: OMEPRAZOLE 20 MG CAPSULE.DR GT SCH (05:34)
[2022-09-12] MEDS: MIDODRINE HCL 10 MG TABLET GT SCH ×3 (05:34→21:19)
[2022-09-12] MEDS: METOCLOPRAMIDE HCL 5 MG TABLET GT SCH ×3 (05:34→21:19)
[2022-09-12 07:55] VITALS: TEMP 97.4
[2022-09-12] MEDS: HYDROGEN PEROXIDE 3% 118 ML BOTTLE TP SCH ×2 (09:01→19:22)
[2022-09-12] MEDS: PHENYTOIN 100 MG/4 ML UDC GT SCH ×2 (09:49→21:18)
[2022-09-12] MEDS: POTASSIUM CHLORIDE 40 MEQ/30 ML LIQUID UDC GT SCH (09:50)
[2022-09-12] MEDS: ACIDOPHILUS/BULGARICUS CHEW TAB GT SCH ×2 (09:50→21:18)
[2022-09-12] MEDS: FUROSEMIDE 10 MG/ML GT SCH (09:50)
[2022-09-12] MEDS: TRIAMCINOLONE ACET 0.1% CREAM 15 GM TUBE TP SCH ×2 (09:50→21:18)
[2022-09-12] MEDS: levETIRAcetam 500 MG/5 ML LIQUID UDC GT SCH ×2 (09:50→21:18)
[2022-09-12] MEDS: FERROUS SULFATE 330 MG/7.5 ML UDC- FOR SA ONLY GT SCH ×2 (09:50→21:18)
[2022-09-12] MEDS: NYSTATIN CREAM 30 GM TUBE TP SCH ×4 (09:50→21:19)
[2022-09-12] MEDS: REMEDY ESSENTIAL ZINC PASTE 113 GM TP SCH ×2 (09:50→21:19)
[2022-09-12 20:02] VITALS: TEMP 94.3
[2022-09-12] MEDS: THIAMINE HCL 100 MG TABLET GT SCH (21:18)
[2022-09-12] MEDS: MIRALAX 17 GM POWD.PACK GT SCH (21:18)
[2022-09-12] MEDS: FOLIC ACID 1 MG TABLET GT SCH (21:18)
[2022-09-12] MEDS: CHOLECALCIFEROL 1,000 UNIT TABLET GT SCH (21:18)
[2022-09-13 00:10] VITALS: TEMP 95.5
[2022-09-13] MEDS: ALBUTEROL SULFATE 2.5 MG/3 ML NEBU NEB SCH ×6 (03:34→23:01)
[2022-09-13] MEDS: IPRATROPIUM BROMIDE 0.5 MG/2.5 ML NEBU NEB SCH ×6 (03:34→23:01)
[2022-09-13 04:00] VITALS: TEMP 98.7
[2022-09-13] MEDS: BACLOFEN 10 MG TABLET GT SCH ×3 (05:25→21:34)
[2022-09-13] MEDS: BACLOFEN 20 MG TABLET GT SCH ×3 (05:25→21:34)
[2022-09-13] MEDS: MAGNESIUM OXIDE 400 MG TABLET GT SCH (05:25)
[2022-09-13] MEDS: OMEPRAZOLE 20 MG CAPSULE.DR GT SCH (05:26)
[2022-09-13] MEDS: METOCLOPRAMIDE HCL 5 MG TABLET GT SCH ×3 (05:26→21:33)
[2022-09-13] MEDS: MIDODRINE HCL 10 MG TABLET GT SCH ×3 (05:26→21:35)
[2022-09-13 07:56] VITALS: TEMP 98.8
[2022-09-13] MEDS: HYDROGEN PEROXIDE 3% 118 ML BOTTLE TP SCH ×2 (08:04→19:13)
[2022-09-13] MEDS: PHENYTOIN 100 MG/4 ML UDC GT SCH ×2 (09:36→21:31)
[2022-09-13] MEDS: ACIDOPHILUS/BULGARICUS CHEW TAB GT SCH ×2 (09:36→21:32)
[2022-09-13] MEDS: FERROUS SULFATE 330 MG/7.5 ML UDC- FOR SA ONLY GT SCH ×2 (09:36→21:32)
[2022-09-13] MEDS: POTASSIUM CHLORIDE 40 MEQ/30 ML LIQUID UDC GT SCH (09:37)
[2022-09-13] MEDS: TRIAMCINOLONE ACET 0.1% CREAM 15 GM TUBE TP SCH ×2 (09:37→21:35)
[2022-09-13] MEDS: levETIRAcetam 500 MG/5 ML LIQUID UDC GT SCH ×2 (09:37→21:30)
[2022-09-13] MEDS: FUROSEMIDE 10 MG/ML GT SCH (09:37)
[2022-09-13] MEDS: REMEDY ESSENTIAL ZINC PASTE 113 GM TP SCH ×2 (09:38→21:35)
[2022-09-13] MEDS: NYSTATIN CREAM 30 GM TUBE TP SCH ×4 (09:38→21:35)
[2022-09-13] MEDS: VITAL AF 1.2 1,000 ML LIQUID GT PRN (09:44)
[2022-09-13 19:49] VITALS: TEMP 97.4
[2022-09-13] MEDS: FOLIC ACID 1 MG TABLET GT SCH (21:32)
[2022-09-13] MEDS: CHOLECALCIFEROL 1,000 UNIT TABLET GT SCH (21:36)
[2022-09-13] MEDS: THIAMINE HCL 100 MG TABLET GT SCH (21:36)
[2022-09-14] MEDS: IPRATROPIUM BROMIDE 0.5 MG/2.5 ML NEBU NEB SCH ×6 (03:04→23:03)
[2022-09-14] MEDS: ALBUTEROL SULFATE 2.5 MG/3 ML NEBU NEB SCH ×6 (03:04→23:03)
[2022-09-14] MEDS: BACLOFEN 20 MG TABLET GT SCH ×3 (05:14→21:12)
[2022-09-14] MEDS: MAGNESIUM OXIDE 400 MG TABLET GT SCH (05:14)
[2022-09-14] MEDS: BACLOFEN 10 MG TABLET GT SCH ×3 (05:14→21:12)
[2022-09-14] MEDS: MIDODRINE HCL 10 MG TABLET GT SCH ×3 (05:14→21:12)
[2022-09-14] MEDS: METOCLOPRAMIDE HCL 5 MG TABLET GT SCH ×3 (05:15→21:12)
[2022-09-14] MEDS: OMEPRAZOLE 20 MG CAPSULE.DR GT SCH (05:15)
[2022-09-14 07:31] VITALS: TEMP 97
[2022-09-14] MEDS: HYDROGEN PEROXIDE 3% 118 ML BOTTLE TP SCH ×2 (08:02→21:45)
[2022-09-14] MEDS: ACIDOPHILUS/BULGARICUS CHEW TAB GT SCH ×2 (09:06→21:08)
[2022-09-14] MEDS: PHENYTOIN 100 MG/4 ML UDC GT SCH ×2 (09:06→21:07)
[2022-09-14] MEDS: FUROSEMIDE 10 MG/ML GT SCH (09:06)
[2022-09-14] MEDS: FERROUS SULFATE 330 MG/7.5 ML UDC- FOR SA ONLY GT SCH ×2 (09:06→21:08)
[2022-09-14] MEDS: TRIAMCINOLONE ACET 0.1% CREAM 15 GM TUBE TP SCH ×2 (09:07→21:10)
[2022-09-14] MEDS: REMEDY ESSENTIAL ZINC PASTE 113 GM TP SCH ×2 (09:07→21:10)
[2022-09-14] MEDS: levETIRAcetam 500 MG/5 ML LIQUID UDC GT SCH ×2 (09:07→21:10)
[2022-09-14] MEDS: NYSTATIN CREAM 30 GM TUBE TP SCH ×4 (09:07→21:10)
[2022-09-14] MEDS: POTASSIUM CHLORIDE 40 MEQ/30 ML LIQUID UDC GT SCH (09:07)
[2022-09-14 20:14] VITALS: TEMP 93.4
[2022-09-14 21:00] VITALS: TEMP 95.8
[2022-09-14] MEDS: FOLIC ACID 1 MG TABLET GT SCH (21:11)
[2022-09-14] MEDS: THIAMINE HCL 100 MG TABLET GT SCH (21:13)
[2022-09-14] MEDS: CHOLECALCIFEROL 1,000 UNIT TABLET GT SCH (21:13)
[2022-09-15 00:15] VITALS: TEMP 95.8
[2022-09-15] MEDS: ALBUTEROL SULFATE 2.5 MG/3 ML NEBU NEB SCH ×6 (03:33→23:20)
[2022-09-15] MEDS: IPRATROPIUM BROMIDE 0.5 MG/2.5 ML NEBU NEB SCH ×6 (03:33→23:20)
[2022-09-15 04:00] VITALS: TEMP 96
[2022-09-15] MEDS: METOCLOPRAMIDE HCL 5 MG TABLET GT SCH ×3 (05:23→21:49)
[2022-09-15] MEDS: MAGNESIUM OXIDE 400 MG TABLET GT SCH (05:23)
[2022-09-15] MEDS: BACLOFEN 20 MG TABLET GT SCH ×3 (05:23→21:45)
[2022-09-15] MEDS: OMEPRAZOLE 20 MG CAPSULE.DR GT SCH (05:23)
[2022-09-15] MEDS: BACLOFEN 10 MG TABLET GT SCH ×3 (05:23→21:45)
[2022-09-15] MEDS: MIDODRINE HCL 10 MG TABLET GT SCH ×3 (05:23→21:47)
[2022-09-15 06:42] VITALS: TEMP 97.8
[2022-09-15 07:31] VITALS: TEMP 98.3
[2022-09-15] MEDS: HYDROGEN PEROXIDE 3% 118 ML BOTTLE TP SCH ×2 (09:00→19:15)
[2022-09-15] MEDS: ACIDOPHILUS/BULGARICUS CHEW TAB GT SCH ×2 (09:32→21:40)
[2022-09-15] MEDS: PHENYTOIN 100 MG/4 ML UDC GT SCH ×2 (09:32→21:40)
[2022-09-15] MEDS: TRIAMCINOLONE ACET 0.1% CREAM 15 GM TUBE TP SCH ×2 (09:32→21:43)
[2022-09-15] MEDS: POTASSIUM CHLORIDE 40 MEQ/30 ML LIQUID UDC GT SCH (09:32)
[2022-09-15] MEDS: levETIRAcetam 500 MG/5 ML LIQUID UDC GT SCH ×2 (09:32→21:42)
[2022-09-15] MEDS: FERROUS SULFATE 330 MG/7.5 ML UDC- FOR SA ONLY GT SCH ×2 (09:32→21:43)
[2022-09-15] MEDS: FUROSEMIDE 10 MG/ML GT SCH (09:32)
[2022-09-15] MEDS: NYSTATIN CREAM 30 GM TUBE TP SCH ×4 (09:33→21:44)
[2022-09-15] MEDS: REMEDY ESSENTIAL ZINC PASTE 113 GM TP SCH ×2 (09:33→21:44)
[2022-09-15 20:00] VITALS: TEMP 97.7; TEMP 98.5
[2022-09-15] MEDS: MIRALAX 17 GM POWD.PACK GT SCH (21:43)
[2022-09-15] MEDS: CHOLECALCIFEROL 1,000 UNIT TABLET GT SCH (21:43)
[2022-09-15] MEDS: THIAMINE HCL 100 MG TABLET GT SCH (21:43)
[2022-09-15] MEDS: FOLIC ACID 1 MG TABLET GT SCH (21:52)
[2022-09-16] MEDS: IPRATROPIUM BROMIDE 0.5 MG/2.5 ML NEBU NEB SCH ×6 (03:08→23:00)
[2022-09-16] MEDS: ALBUTEROL SULFATE 2.5 MG/3 ML NEBU NEB SCH ×6 (03:08→23:00)
[2022-09-16] MEDS: BACLOFEN 20 MG TABLET GT SCH ×3 (05:28→21:25)
[2022-09-16] MEDS: MAGNESIUM OXIDE 400 MG TABLET GT SCH (05:28)
[2022-09-16] MEDS: BACLOFEN 10 MG TABLET GT SCH ×3 (05:28→21:25)
[2022-09-16] MEDS: OMEPRAZOLE 20 MG CAPSULE.DR GT SCH (06:13)
[2022-09-16] MEDS: MIDODRINE HCL 10 MG TABLET GT SCH ×3 (06:13→21:25)
[2022-09-16] MEDS: METOCLOPRAMIDE HCL 5 MG TABLET GT SCH ×3 (06:13→21:26)
[2022-09-16 07:25] VITALS: TEMP 97
[2022-09-16] MEDS: HYDROGEN PEROXIDE 3% 118 ML BOTTLE TP SCH ×2 (07:37→19:08)
[2022-09-16] MEDS: levETIRAcetam 500 MG/5 ML LIQUID UDC GT SCH ×2 (08:50→21:24)
[2022-09-16] MEDS: PHENYTOIN 100 MG/4 ML UDC GT SCH ×2 (08:50→21:24)
[2022-09-16] MEDS: POTASSIUM CHLORIDE 40 MEQ/30 ML LIQUID UDC GT SCH (08:50)
[2022-09-16] MEDS: ACIDOPHILUS/BULGARICUS CHEW TAB GT SCH ×2 (08:50→21:24)
[2022-09-16] MEDS: NYSTATIN CREAM 30 GM TUBE TP SCH ×4 (08:50→21:25)
[2022-09-16] MEDS: FUROSEMIDE 10 MG/ML GT SCH (08:50)
[2022-09-16] MEDS: FERROUS SULFATE 330 MG/7.5 ML UDC- FOR SA ONLY GT SCH ×2 (08:50→21:24)
[2022-09-16] MEDS: TRIAMCINOLONE ACET 0.1% CREAM 15 GM TUBE TP SCH ×2 (08:50→21:25)
[2022-09-16] MEDS: REMEDY ESSENTIAL ZINC PASTE 113 GM TP SCH ×2 (08:51→21:25)
[2022-09-16 20:00] VITALS: TEMP 97.6
[2022-09-16] MEDS: FOLIC ACID 1 MG TABLET GT SCH (21:24)
[2022-09-16] MEDS: THIAMINE HCL 100 MG TABLET GT SCH (21:25)
[2022-09-16] MEDS: CHOLECALCIFEROL 1,000 UNIT TABLET GT SCH (21:25)
[2022-09-17] MEDS: IPRATROPIUM BROMIDE 0.5 MG/2.5 ML NEBU NEB SCH ×6 (03:30→23:05)
[2022-09-17] MEDS: ALBUTEROL SULFATE 2.5 MG/3 ML NEBU NEB SCH ×6 (03:30→23:05)
[2022-09-17] MEDS: VITAL AF 1.2 1,000 ML LIQUID GT PRN (04:24)
[2022-09-17] MEDS: BACLOFEN 10 MG TABLET GT SCH ×3 (05:21→22:10)
[2022-09-17] MEDS: MIDODRINE HCL 10 MG TABLET GT SCH ×3 (05:21→22:10)
[2022-09-17] MEDS: MAGNESIUM OXIDE 400 MG TABLET GT SCH (05:21)
[2022-09-17] MEDS: BACLOFEN 20 MG TABLET GT SCH ×3 (05:21→22:10)
[2022-09-17] MEDS: OMEPRAZOLE 20 MG CAPSULE.DR GT SCH (05:22)
[2022-09-17] MEDS: METOCLOPRAMIDE HCL 5 MG TABLET GT SCH ×3 (05:22→22:16)
[2022-09-17] MEDS: HYDROGEN PEROXIDE 3% 118 ML BOTTLE TP SCH ×2 (07:27→19:14)
[2022-09-17 08:08] VITALS: TEMP 97.2
[2022-09-17] MEDS: PHENYTOIN 100 MG/4 ML UDC GT SCH ×2 (09:06→21:00)
[2022-09-17] MEDS: FERROUS SULFATE 330 MG/7.5 ML UDC- FOR SA ONLY GT SCH ×2 (09:06→21:00)
[2022-09-17] MEDS: ACIDOPHILUS/BULGARICUS CHEW TAB GT SCH ×2 (09:07→21:00)
[2022-09-17] MEDS: FUROSEMIDE 10 MG/ML GT SCH (09:07)
[2022-09-17] MEDS: levETIRAcetam 500 MG/5 ML LIQUID UDC GT SCH ×2 (09:09→21:00)
[2022-09-17] MEDS: TRIAMCINOLONE ACET 0.1% CREAM 15 GM TUBE TP SCH ×2 (09:10→21:00)
[2022-09-17] MEDS: POTASSIUM CHLORIDE 40 MEQ/30 ML LIQUID UDC GT SCH (09:10)
[2022-09-17] MEDS: REMEDY ESSENTIAL ZINC PASTE 113 GM TP SCH ×2 (09:10→21:00)
[2022-09-17] MEDS: NYSTATIN CREAM 30 GM TUBE TP SCH ×4 (09:10→21:00)
[2022-09-17 20:33] VITALS: TEMP 96.8
[2022-09-17] MEDS: THIAMINE HCL 100 MG TABLET GT SCH (21:00)
[2022-09-17] MEDS: CHOLECALCIFEROL 1,000 UNIT TABLET GT SCH (21:00)
[2022-09-17] MEDS: FOLIC ACID 1 MG TABLET GT SCH (21:00)
[2022-09-17] MEDS: MIRALAX 17 GM POWD.PACK GT SCH (21:00)
[2022-09-18] MEDS: IPRATROPIUM BROMIDE 0.5 MG/2.5 ML NEBU NEB SCH ×6 (03:26→23:04)
[2022-09-18] MEDS: ALBUTEROL SULFATE 2.5 MG/3 ML NEBU NEB SCH ×6 (03:27→23:04)
[2022-09-18] MEDS: BACLOFEN 10 MG TABLET GT SCH ×3 (05:18→21:49)
[2022-09-18] MEDS: MAGNESIUM OXIDE 400 MG TABLET GT SCH (05:18)
[2022-09-18] MEDS: BACLOFEN 20 MG TABLET GT SCH ×3 (05:18→21:49)
[2022-09-18] MEDS: MIDODRINE HCL 10 MG TABLET GT SCH ×3 (05:19→21:49)
[2022-09-18] MEDS: METOCLOPRAMIDE HCL 5 MG TABLET GT SCH ×3 (05:19→21:49)
[2022-09-18] MEDS: OMEPRAZOLE 20 MG CAPSULE.DR GT SCH (05:19)
[2022-09-18 07:53] VITALS: TEMP 96.3
[2022-09-18] MEDS: HYDROGEN PEROXIDE 3% 118 ML BOTTLE TP SCH ×2 (08:38→19:02)
[2022-09-18] MEDS: PHENYTOIN 100 MG/4 ML UDC GT SCH ×2 (09:35→20:57)
[2022-09-18] MEDS: FUROSEMIDE 10 MG/ML GT SCH (09:35)
[2022-09-18] MEDS: levETIRAcetam 500 MG/5 ML LIQUID UDC GT SCH ×2 (09:35→20:57)
[2022-09-18] MEDS: ACIDOPHILUS/BULGARICUS CHEW TAB GT SCH ×2 (09:35→20:57)
[2022-09-18] MEDS: FERROUS SULFATE 330 MG/7.5 ML UDC- FOR SA ONLY GT SCH ×2 (09:35→20:57)
[2022-09-18] MEDS: NYSTATIN CREAM 30 GM TUBE TP SCH ×4 (09:36→20:57)
[2022-09-18] MEDS: REMEDY ESSENTIAL ZINC PASTE 113 GM TP SCH ×2 (09:36→20:57)
[2022-09-18] MEDS: TRIAMCINOLONE ACET 0.1% CREAM 15 GM TUBE TP SCH ×2 (09:36→20:57)
[2022-09-18] MEDS: POTASSIUM CHLORIDE 40 MEQ/30 ML LIQUID UDC GT SCH (09:36)
[2022-09-18 19:58] VITALS: TEMP 93.6
[2022-09-18] MEDS: CHOLECALCIFEROL 1,000 UNIT TABLET GT SCH (20:57)
[2022-09-18] MEDS: FOLIC ACID 1 MG TABLET GT SCH (20:57)
[2022-09-18] MEDS: THIAMINE HCL 100 MG TABLET GT SCH (20:57)
[2022-09-19] MEDS: ALBUTEROL SULFATE 2.5 MG/3 ML NEBU NEB SCH ×6 (03:29→23:01)
[2022-09-19] MEDS: IPRATROPIUM BROMIDE 0.5 MG/2.5 ML NEBU NEB SCH ×6 (03:29→23:01)
[2022-09-19] MEDS: METOCLOPRAMIDE HCL 5 MG TABLET GT SCH ×3 (05:09→21:47)
[2022-09-19] MEDS: BACLOFEN 20 MG TABLET GT SCH ×3 (05:09→21:46)
[2022-09-19] MEDS: OMEPRAZOLE 20 MG CAPSULE.DR GT SCH (05:09)
[2022-09-19] MEDS: BACLOFEN 10 MG TABLET GT SCH ×3 (05:09→21:46)
[2022-09-19] MEDS: MIDODRINE HCL 10 MG TABLET GT SCH ×3 (05:09→21:47)
[2022-09-19] MEDS: MAGNESIUM OXIDE 400 MG TABLET GT SCH (05:09)
[2022-09-19 07:40] VITALS: TEMP 97.8
[2022-09-19] MEDS: HYDROGEN PEROXIDE 3% 118 ML BOTTLE TP SCH ×2 (08:03→19:01)
[2022-09-19] MEDS: PHENYTOIN 100 MG/4 ML UDC GT SCH ×2 (08:51→21:41)
[2022-09-19] MEDS: ACIDOPHILUS/BULGARICUS CHEW TAB GT SCH ×2 (08:53→21:41)
[2022-09-19] MEDS: FERROUS SULFATE 330 MG/7.5 ML UDC- FOR SA ONLY GT SCH ×2 (08:53→21:41)
[2022-09-19] MEDS: FUROSEMIDE 10 MG/ML GT SCH (08:53)
[2022-09-19] MEDS: levETIRAcetam 500 MG/5 ML LIQUID UDC GT SCH ×2 (08:55→21:46)
[2022-09-19] MEDS: POTASSIUM CHLORIDE 40 MEQ/30 ML LIQUID UDC GT SCH (08:56)
[2022-09-19] MEDS: REMEDY ESSENTIAL ZINC PASTE 113 GM TP SCH ×2 (09:00→21:46)
[2022-09-19] MEDS: NYSTATIN CREAM 30 GM TUBE TP SCH ×4 (09:00→21:46)
[2022-09-19] MEDS: TRIAMCINOLONE ACET 0.1% CREAM 15 GM TUBE TP SCH ×2 (09:00→21:46)
[2022-09-19 20:21] VITALS: TEMP 97.1
[2022-09-19] MEDS: FOLIC ACID 1 MG TABLET GT SCH (21:41)
[2022-09-19] MEDS: THIAMINE HCL 100 MG TABLET GT SCH (21:46)
[2022-09-19] MEDS: CHOLECALCIFEROL 1,000 UNIT TABLET GT SCH (21:46)
[2022-09-19] MEDS: MIRALAX 17 GM POWD.PACK GT SCH (21:46)
[2022-09-20] MEDS: IPRATROPIUM BROMIDE 0.5 MG/2.5 ML NEBU NEB SCH ×6 (03:43→23:02)
[2022-09-20] MEDS: ALBUTEROL SULFATE 2.5 MG/3 ML NEBU NEB SCH ×6 (03:43→23:02)
[2022-09-20] MEDS: VITAL AF 1.2 1,000 ML LIQUID GT PRN (03:54)
[2022-09-20] MEDS: BACLOFEN 20 MG TABLET GT SCH ×3 (05:17→21:00)
[2022-09-20] MEDS: MIDODRINE HCL 10 MG TABLET GT SCH ×3 (05:17→21:01)
[2022-09-20] MEDS: MAGNESIUM OXIDE 400 MG TABLET GT SCH (05:17)
[2022-09-20] MEDS: OMEPRAZOLE 20 MG CAPSULE.DR GT SCH (05:17)
[2022-09-20] MEDS: BACLOFEN 10 MG TABLET GT SCH ×3 (05:17→21:00)
[2022-09-20] MEDS: METOCLOPRAMIDE HCL 5 MG TABLET GT SCH ×3 (05:17→21:01)
[2022-09-20 07:42] VITALS: TEMP 97.8
[2022-09-20] MEDS: HYDROGEN PEROXIDE 3% 118 ML BOTTLE TP SCH ×2 (09:39→19:00)
[2022-09-20] MEDS: PHENYTOIN 100 MG/4 ML UDC GT SCH ×2 (09:39→21:00)
[2022-09-20] MEDS: FERROUS SULFATE 330 MG/7.5 ML UDC- FOR SA ONLY GT SCH ×2 (09:42→21:00)
[2022-09-20] MEDS: ACIDOPHILUS/BULGARICUS CHEW TAB GT SCH ×2 (09:42→21:00)
[2022-09-20] MEDS: levETIRAcetam 500 MG/5 ML LIQUID UDC GT SCH ×2 (09:44→21:00)
[2022-09-20] MEDS: FUROSEMIDE 10 MG/ML GT SCH (09:44)
[2022-09-20] MEDS: POTASSIUM CHLORIDE 40 MEQ/30 ML LIQUID UDC GT SCH (09:44)
[2022-09-20] MEDS: TRIAMCINOLONE ACET 0.1% CREAM 15 GM TUBE TP SCH ×2 (09:45→21:00)
[2022-09-20] MEDS: NYSTATIN CREAM 30 GM TUBE TP SCH ×4 (09:45→21:00)
[2022-09-20] MEDS: REMEDY ESSENTIAL ZINC PASTE 113 GM TP SCH ×2 (09:45→21:00)
[2022-09-20 20:20] VITALS: TEMP 97.5
[2022-09-20] MEDS: CHOLECALCIFEROL 1,000 UNIT TABLET GT SCH (21:00)
[2022-09-20] MEDS: FOLIC ACID 1 MG TABLET GT SCH (21:00)
[2022-09-20] MEDS: THIAMINE HCL 100 MG TABLET GT SCH (21:00)
[2022-09-21] MEDS: ALBUTEROL SULFATE 2.5 MG/3 ML NEBU NEB SCH ×6 (03:04→23:12)
[2022-09-21] MEDS: IPRATROPIUM BROMIDE 0.5 MG/2.5 ML NEBU NEB SCH ×6 (03:04→23:12)
[2022-09-21] MEDS: METOCLOPRAMIDE HCL 5 MG TABLET GT SCH ×3 (05:27→21:07)
[2022-09-21] MEDS: BACLOFEN 20 MG TABLET GT SCH ×3 (05:27→21:07)
[2022-09-21] MEDS: MIDODRINE HCL 10 MG TABLET GT SCH ×3 (05:27→21:07)
[2022-09-21] MEDS: OMEPRAZOLE 20 MG CAPSULE.DR GT SCH (05:27)
[2022-09-21] MEDS: BACLOFEN 10 MG TABLET GT SCH ×3 (05:27→21:07)
[2022-09-21] MEDS: MAGNESIUM OXIDE 400 MG TABLET GT SCH (05:27)
[2022-09-21] MEDS: VITAL AF 1.2 1,000 ML LIQUID GT PRN (05:27)
[2022-09-21] MEDS: HYDROGEN PEROXIDE 3% 118 ML BOTTLE TP SCH ×2 (07:14→19:01)
[2022-09-21 07:38] VITALS: TEMP 97.4
[2022-09-21] MEDS: PHENYTOIN 100 MG/4 ML UDC GT SCH ×2 (08:41→20:50)
[2022-09-21] MEDS: ACIDOPHILUS/BULGARICUS CHEW TAB GT SCH ×2 (08:42→20:51)
[2022-09-21] MEDS: FUROSEMIDE 10 MG/ML GT SCH (08:42)
[2022-09-21] MEDS: FERROUS SULFATE 330 MG/7.5 ML UDC- FOR SA ONLY GT SCH ×2 (08:42→20:50)
[2022-09-21] MEDS: POTASSIUM CHLORIDE 40 MEQ/30 ML LIQUID UDC GT SCH (08:44)
[2022-09-21] MEDS: TRIAMCINOLONE ACET 0.1% CREAM 15 GM TUBE TP SCH ×2 (08:44→20:52)
[2022-09-21] MEDS: levETIRAcetam 500 MG/5 ML LIQUID UDC GT SCH ×2 (08:44→20:51)
[2022-09-21] MEDS: REMEDY ESSENTIAL ZINC PASTE 113 GM TP SCH ×2 (08:45→20:52)
[2022-09-21] MEDS: NYSTATIN CREAM 30 GM TUBE TP SCH ×4 (08:45→20:52)
[2022-09-21 20:45] VITALS: TEMP 96.1
[2022-09-21] MEDS: FOLIC ACID 1 MG TABLET GT SCH (20:51)
[2022-09-21] MEDS: THIAMINE HCL 100 MG TABLET GT SCH (20:52)
[2022-09-21] MEDS: CHOLECALCIFEROL 1,000 UNIT TABLET GT SCH (20:52)
[2022-09-22] MEDS: ALBUTEROL SULFATE 2.5 MG/3 ML NEBU NEB SCH ×6 (03:00→23:46)
[2022-09-22] MEDS: IPRATROPIUM BROMIDE 0.5 MG/2.5 ML NEBU NEB SCH ×6 (03:00→23:46)
[2022-09-22] MEDS: BACLOFEN 10 MG TABLET GT SCH ×3 (05:43→21:22)
[2022-09-22] MEDS: MAGNESIUM OXIDE 400 MG TABLET GT SCH (05:43)
[2022-09-22] MEDS: BACLOFEN 20 MG TABLET GT SCH ×3 (05:43→21:22)
[2022-09-22] MEDS: MIDODRINE HCL 10 MG TABLET GT SCH ×3 (05:44→21:23)
[2022-09-22] MEDS: METOCLOPRAMIDE HCL 5 MG TABLET GT SCH ×3 (05:44→21:23)
[2022-09-22] MEDS: OMEPRAZOLE 20 MG CAPSULE.DR GT SCH (05:44)
[2022-09-22 07:14] LABS: BASOPHILS # (AUTO) 0.1 K/UL (0.0-0.2); BASOPHILS % (AUTO) 0.5 % (0.0-2.0); EOSINOPHILS # (AUTO) 0.5 K/uL (0.0-0.7); HEMATOCRIT 33.6 % (31.2-41.9); HEMOGLOBIN 11.1 g/dL (10.9-14.3); LYMPHOCYTES # (AUTO) 1.7 K/uL (0.8-4.8); LYMPHOCYTES % (AUTO) 13.7 % (20.5-51.5); MEAN CORPUSCULAR HEMOGLOBIN 31.6 uug (24.7-32.8); MEAN CORPUSCULAR HGB CONC 33 g/dL (32.3-35.6); MEAN CORPUSCULAR VOLUME 95.4 fL (75.5-95.3); MONOCYTES # (AUTO) 0.7 K/uL (0.1-1.30); MONOCYTES % (AUTO) 5.6 % (0.0-11.0); NEUTROPHILS # (AUTO) 9.6 K/uL (1.8-8.9); NEUTROPHILS % (AUTO) 76.2 % (38.5-71.5); PLATELET COUNT (AUTO) 267 K/uL (179-408); RED BLOOD CELL COUNT(AUTO) 3.52 MIL/uL (3.63-4.92); RED CELL DISTRIBUTION WIDTH 20.1 % (12.3-17.7); WHITE BLOOD COUNT (AUTO) 12.6 K/uL (3.8-11.8)
[2022-09-22 07:25] VITALS: TEMP 97.3
[2022-09-22 07:38] LABS: ALANINE AMINOTRANSFERASE 82 U/L (14-59); ALBUMIN 2.3 g/dL (3.4-5.0); ALKALINE PHOSPHATASE 225 U/L (50-136); ASPARTATE AMINOTRANSFERASE 20 U/L (15-37); BILIRUBIN,DIRECT 0.1 mg/dL (0.0-0.2); BILIRUBIN,TOTAL 0.2 mg/dL (0.2-1.0); CALCIUM 8.7 mg/dL (8.5-10.1); CARBON DIOXIDE 23 mmol/L (21-32); CHLORIDE 108 mmol/L (98-107); CREATININE 0.5 mg/dL (0.6-1.3); GLUCOSE 78 mg/dL (74-106); MAGNESIUM 1.9 mg/dL (1.8-2.4); PHOSPHOROUS 4.1 mg/dL (2.5-4.9); POTASSIUM 3.7 mmol/L (3.5-5.1); SODIUM SERUM 141 mmol/L (136-145); TOTAL PROTEIN, SERUM 7.2 g/dL (6.4-8.2); UREA NITROGEN, BLOOD 20 mg/dL (7-18)
[2022-09-22 08:03] LABS: DIFFERENTIAL COMMENT 1
[2022-09-22] MEDS: HYDROGEN PEROXIDE 3% 118 ML BOTTLE TP SCH ×2 (08:18→21:00)
[2022-09-22] MEDS: PHENYTOIN 100 MG/4 ML UDC GT SCH ×2 (08:21→21:00)
[2022-09-22] MEDS: FERROUS SULFATE 330 MG/7.5 ML UDC- FOR SA ONLY GT SCH ×2 (08:21→21:00)
[2022-09-22] MEDS: levETIRAcetam 500 MG/5 ML LIQUID UDC GT SCH ×2 (08:22→21:16)
[2022-09-22] MEDS: POTASSIUM CHLORIDE 40 MEQ/30 ML LIQUID UDC GT SCH (08:22)
[2022-09-22] MEDS: ACIDOPHILUS/BULGARICUS CHEW TAB GT SCH ×2 (08:22→21:01)
[2022-09-22] MEDS: FUROSEMIDE 10 MG/ML GT SCH (08:22)
[2022-09-22] MEDS: NYSTATIN CREAM 30 GM TUBE TP SCH ×4 (08:23→21:22)
[2022-09-22] MEDS: TRIAMCINOLONE ACET 0.1% CREAM 15 GM TUBE TP SCH ×2 (08:23→21:22)
[2022-09-22] MEDS: REMEDY ESSENTIAL ZINC PASTE 113 GM TP SCH ×2 (08:24→21:22)
[2022-09-22] MEDS: VITAL AF 1.2 1,000 ML LIQUID GT PRN (16:00)
[2022-09-22 20:01] VITALS: TEMP 97.5
[2022-09-22] MEDS: FOLIC ACID 1 MG TABLET GT SCH (21:14)
[2022-09-22] MEDS: MIRALAX 17 GM POWD.PACK GT SCH (21:17)
[2022-09-22] MEDS: CHOLECALCIFEROL 1,000 UNIT TABLET GT SCH (21:21)
[2022-09-22] MEDS: THIAMINE HCL 100 MG TABLET GT SCH (21:21)
[2022-09-23] MEDS: IPRATROPIUM BROMIDE 0.5 MG/2.5 ML NEBU NEB SCH ×6 (03:50→23:10)
[2022-09-23] MEDS: ALBUTEROL SULFATE 2.5 MG/3 ML NEBU NEB SCH ×6 (03:50→23:10)
[2022-09-23] MEDS: MAGNESIUM OXIDE 400 MG TABLET GT SCH (05:56)
[2022-09-23] MEDS: BACLOFEN 10 MG TABLET GT SCH ×3 (05:56→21:11)
[2022-09-23] MEDS: BACLOFEN 20 MG TABLET GT SCH ×3 (05:56→21:11)
[2022-09-23] MEDS: MIDODRINE HCL 10 MG TABLET GT SCH ×3 (05:56→21:11)
[2022-09-23] MEDS: OMEPRAZOLE 20 MG CAPSULE.DR GT SCH (05:56)
[2022-09-23] MEDS: METOCLOPRAMIDE HCL 5 MG TABLET GT SCH ×3 (05:57→21:11)
[2022-09-23 07:10] LABS: BASOPHILS # (AUTO) 0.1 K/UL (0.0-0.2); BASOPHILS % (AUTO) 0.8 % (0.0-2.0); EOSINOPHILS # (AUTO) 0.5 K/uL (0.0-0.7); EOSINOPHILS % (AUTO) 6.6 % (0.0-7.0); HEMATOCRIT 30.9 % (31.2-41.9); HEMOGLOBIN 10.6 g/dL (10.9-14.3); LYMPHOCYTES # (AUTO) 1.8 K/uL (0.8-4.8); MEAN CORPUSCULAR HEMOGLOBIN 32.7 uug (24.7-32.8); MEAN CORPUSCULAR HGB CONC 34 g/dL (32.3-35.6); MEAN CORPUSCULAR VOLUME 95.4 fL (75.5-95.3); MONOCYTES # (AUTO) 0.5 K/uL (0.1-1.30); MONOCYTES % (AUTO) 7.6 % (0.0-11.0); NEUTROPHILS # (AUTO) 4.3 K/uL (1.8-8.9); PLATELET COUNT (AUTO) 274 K/uL (179-408); RED BLOOD CELL COUNT(AUTO) 3.24 MIL/uL (3.63-4.92); RED CELL DISTRIBUTION WIDTH 20.5 % (12.3-17.7); WHITE BLOOD COUNT (AUTO) 7.2 K/uL (3.8-11.8)
[2022-09-23 07:21] VITALS: TEMP 97
[2022-09-23] MEDS: HYDROGEN PEROXIDE 3% 118 ML BOTTLE TP SCH ×2 (08:24→20:12)
[2022-09-23 08:29] LABS: DIFFERENTIAL COMMENT 1
[2022-09-23] MEDS: ACIDOPHILUS/BULGARICUS CHEW TAB GT SCH ×2 (08:30→20:44)
[2022-09-23] MEDS: FERROUS SULFATE 330 MG/7.5 ML UDC- FOR SA ONLY GT SCH ×2 (08:30→20:44)
[2022-09-23] MEDS: FUROSEMIDE 10 MG/ML GT SCH (08:30)
[2022-09-23] MEDS: levETIRAcetam 500 MG/5 ML LIQUID UDC GT SCH ×2 (08:30→20:45)
[2022-09-23] MEDS: TRIAMCINOLONE ACET 0.1% CREAM 15 GM TUBE TP SCH (08:31)
[2022-09-23] MEDS: POTASSIUM CHLORIDE 40 MEQ/30 ML LIQUID UDC GT SCH (08:31)
[2022-09-23] MEDS: REMEDY ESSENTIAL ZINC PASTE 113 GM TP SCH ×2 (08:31→20:46)
[2022-09-23] MEDS: NYSTATIN CREAM 30 GM TUBE TP SCH ×2 (08:31)
[2022-09-23] MEDS: PHENYTOIN 100 MG/4 ML UDC GT SCH ×2 (08:31→20:44)
[2022-09-23 19:55] VITALS: TEMP 97.8
[2022-09-23] MEDS: FOLIC ACID 1 MG TABLET GT SCH (20:45)
[2022-09-23] MEDS: CHOLECALCIFEROL 1,000 UNIT TABLET GT SCH (20:46)
[2022-09-23] MEDS: THIAMINE HCL 100 MG TABLET GT SCH (20:46)
[2022-09-24] MEDS: IPRATROPIUM BROMIDE 0.5 MG/2.5 ML NEBU NEB SCH ×6 (03:07→23:01)
[2022-09-24] MEDS: ALBUTEROL SULFATE 2.5 MG/3 ML NEBU NEB SCH ×6 (03:07→23:01)
[2022-09-24] MEDS: VITAL AF 1.2 1,000 ML LIQUID GT PRN (05:00)
[2022-09-24] MEDS: BACLOFEN 20 MG TABLET GT SCH ×3 (05:53→21:05)
[2022-09-24] MEDS: BACLOFEN 10 MG TABLET GT SCH ×3 (05:53→21:05)
[2022-09-24] MEDS: MAGNESIUM OXIDE 400 MG TABLET GT SCH (05:53)
[2022-09-24] MEDS: OMEPRAZOLE 20 MG CAPSULE.DR GT SCH (05:54)
[2022-09-24] MEDS: MIDODRINE HCL 10 MG TABLET GT SCH ×3 (05:54→21:06)
[2022-09-24] MEDS: METOCLOPRAMIDE HCL 5 MG TABLET GT SCH ×3 (05:54→21:06)
[2022-09-24 07:24] VITALS: TEMP 96.9
[2022-09-24] MEDS: ACIDOPHILUS/BULGARICUS CHEW TAB GT SCH ×2 (08:28→20:55)
[2022-09-24] MEDS: FUROSEMIDE 10 MG/ML GT SCH (08:28)
[2022-09-24] MEDS: FERROUS SULFATE 330 MG/7.5 ML UDC- FOR SA ONLY GT SCH ×2 (08:28→20:54)
[2022-09-24] MEDS: levETIRAcetam 500 MG/5 ML LIQUID UDC GT SCH ×2 (08:29→20:55)
[2022-09-24] MEDS: REMEDY ESSENTIAL ZINC PASTE 113 GM TP SCH ×2 (08:30→20:56)
[2022-09-24] MEDS: POTASSIUM CHLORIDE 40 MEQ/30 ML LIQUID UDC GT SCH (08:30)
[2022-09-24] MEDS: PHENYTOIN 100 MG/4 ML UDC GT SCH ×2 (08:31→20:54)
[2022-09-24] MEDS: HYDROGEN PEROXIDE 3% 118 ML BOTTLE TP SCH ×2 (09:16→19:01)
[2022-09-24 10:00] VITALS: O2SAT 98
[2022-09-24] MEDS: MIRALAX 17 GM POWD.PACK GT SCH (20:55)
[2022-09-24] MEDS: FOLIC ACID 1 MG TABLET GT SCH (20:55)
[2022-09-24] MEDS: CHOLECALCIFEROL 1,000 UNIT TABLET GT SCH (20:56)
[2022-09-24] MEDS: THIAMINE HCL 100 MG TABLET GT SCH (20:56)
[2022-09-24 20:58] VITALS: TEMP 97.7
[2022-09-25] MEDS: ALBUTEROL SULFATE 2.5 MG/3 ML NEBU NEB SCH ×6 (03:21→23:00)
[2022-09-25] MEDS: IPRATROPIUM BROMIDE 0.5 MG/2.5 ML NEBU NEB SCH ×6 (03:21→23:00)
[2022-09-25] MEDS: MAGNESIUM OXIDE 400 MG TABLET GT SCH (05:47)
[2022-09-25] MEDS: BACLOFEN 10 MG TABLET GT SCH ×3 (05:47→22:41)
[2022-09-25] MEDS: BACLOFEN 20 MG TABLET GT SCH ×3 (05:47→22:42)
[2022-09-25] MEDS: OMEPRAZOLE 20 MG CAPSULE.DR GT SCH (05:48)
[2022-09-25] MEDS: METOCLOPRAMIDE HCL 5 MG TABLET GT SCH ×3 (05:48→22:42)
[2022-09-25] MEDS: MIDODRINE HCL 10 MG TABLET GT SCH ×3 (05:48→22:42)
[2022-09-25] MEDS: HYDROGEN PEROXIDE 3% 118 ML BOTTLE TP SCH ×2 (07:17→19:00)
[2022-09-25 07:52] VITALS: TEMP 96
[2022-09-25] MEDS: PHENYTOIN 100 MG/4 ML UDC GT SCH ×2 (09:02→20:53)
[2022-09-25] MEDS: FERROUS SULFATE 330 MG/7.5 ML UDC- FOR SA ONLY GT SCH ×2 (09:02→20:53)
[2022-09-25] MEDS: FUROSEMIDE 10 MG/ML GT SCH (09:03)
[2022-09-25] MEDS: ACIDOPHILUS/BULGARICUS CHEW TAB GT SCH ×2 (09:03→20:53)
[2022-09-25] MEDS: POTASSIUM CHLORIDE 40 MEQ/30 ML LIQUID UDC GT SCH (09:05)
[2022-09-25] MEDS: levETIRAcetam 500 MG/5 ML LIQUID UDC GT SCH ×2 (09:05→20:54)
[2022-09-25] MEDS: REMEDY ESSENTIAL ZINC PASTE 113 GM TP SCH ×2 (09:05→20:55)
[2022-09-25] MEDS: VITAL 1.5 CAL LIQUID GT PRN (19:01)
[2022-09-25 20:00] VITALS: TEMP 97.7
[2022-09-25] MEDS: FOLIC ACID 1 MG TABLET GT SCH (20:54)
[2022-09-25] MEDS: THIAMINE HCL 100 MG TABLET GT SCH (20:54)
[2022-09-25] MEDS: CHOLECALCIFEROL 1,000 UNIT TABLET GT SCH (20:55)
[2022-09-26] MEDS: IPRATROPIUM BROMIDE 0.5 MG/2.5 ML NEBU NEB SCH ×6 (03:21→23:29)
[2022-09-26] MEDS: ALBUTEROL SULFATE 2.5 MG/3 ML NEBU NEB SCH ×6 (03:21→23:29)
[2022-09-26] MEDS: MAGNESIUM OXIDE 400 MG TABLET GT SCH (05:47)
[2022-09-26] MEDS: BACLOFEN 10 MG TABLET GT SCH ×3 (05:47→21:24)
[2022-09-26] MEDS: BACLOFEN 20 MG TABLET GT SCH ×3 (05:47→21:24)
[2022-09-26] MEDS: MIDODRINE HCL 10 MG TABLET GT SCH ×3 (05:48→21:24)
[2022-09-26] MEDS: OMEPRAZOLE 20 MG CAPSULE.DR GT SCH (05:48)
[2022-09-26] MEDS: METOCLOPRAMIDE HCL 5 MG TABLET GT SCH ×3 (05:48→21:25)
[2022-09-26 07:45] VITALS: TEMP 96
[2022-09-26] MEDS: HYDROGEN PEROXIDE 3% 118 ML BOTTLE TP SCH ×2 (07:57→21:08)
[2022-09-26] MEDS: FERROUS SULFATE 330 MG/7.5 ML UDC- FOR SA ONLY GT SCH ×2 (08:55→21:21)
[2022-09-26] MEDS: ACIDOPHILUS/BULGARICUS CHEW TAB GT SCH ×2 (08:55→21:22)
[2022-09-26] MEDS: PHENYTOIN 100 MG/4 ML UDC GT SCH ×2 (08:55→21:21)
[2022-09-26] MEDS: FUROSEMIDE 10 MG/ML GT SCH (08:55)
[2022-09-26] MEDS: levETIRAcetam 500 MG/5 ML LIQUID UDC GT SCH ×2 (08:56→21:28)
[2022-09-26] MEDS: REMEDY ESSENTIAL ZINC PASTE 113 GM TP SCH ×2 (08:56→21:24)
[2022-09-26] MEDS: POTASSIUM CHLORIDE 40 MEQ/30 ML LIQUID UDC GT SCH (08:56)
[2022-09-26 20:00] VITALS: TEMP 97.7
[2022-09-26] MEDS: FOLIC ACID 1 MG TABLET GT SCH (21:22)
[2022-09-26] MEDS: MIRALAX 17 GM POWD.PACK GT SCH (21:23)
[2022-09-26] MEDS: CHOLECALCIFEROL 1,000 UNIT TABLET GT SCH (21:23)
[2022-09-26] MEDS: THIAMINE HCL 100 MG TABLET GT SCH (21:23)
[2022-09-27] MEDS: IPRATROPIUM BROMIDE 0.5 MG/2.5 ML NEBU NEB SCH ×6 (04:20→23:46)
[2022-09-27] MEDS: ALBUTEROL SULFATE 2.5 MG/3 ML NEBU NEB SCH ×6 (04:20→23:46)
[2022-09-27] MEDS: BACLOFEN 10 MG TABLET GT SCH ×3 (05:00→21:00)
[2022-09-27] MEDS: BACLOFEN 20 MG TABLET GT SCH ×3 (05:00→21:00)
[2022-09-27] MEDS: MAGNESIUM OXIDE 400 MG TABLET GT SCH (05:01)
[2022-09-27] MEDS: METOCLOPRAMIDE HCL 5 MG TABLET GT SCH ×3 (05:02→21:01)
[2022-09-27] MEDS: OMEPRAZOLE 20 MG CAPSULE.DR GT SCH (05:02)
[2022-09-27] MEDS: MIDODRINE HCL 10 MG TABLET GT SCH ×3 (05:02→21:01)
[2022-09-27 07:33] VITALS: TEMP 97
[2022-09-27] MEDS: HYDROGEN PEROXIDE 3% 118 ML BOTTLE TP SCH ×2 (08:37→21:04)
[2022-09-27] MEDS: ACIDOPHILUS/BULGARICUS CHEW TAB GT SCH ×2 (09:09→21:00)
[2022-09-27] MEDS: FUROSEMIDE 10 MG/ML GT SCH (09:09)
[2022-09-27] MEDS: PHENYTOIN 100 MG/4 ML UDC GT SCH ×2 (09:09→21:00)
[2022-09-27] MEDS: POTASSIUM CHLORIDE 40 MEQ/30 ML LIQUID UDC GT SCH (09:09)
[2022-09-27] MEDS: FERROUS SULFATE 330 MG/7.5 ML UDC- FOR SA ONLY GT SCH ×2 (09:09→21:00)
[2022-09-27] MEDS: levETIRAcetam 500 MG/5 ML LIQUID UDC GT SCH ×2 (09:09→21:00)
[2022-09-27] MEDS: REMEDY ESSENTIAL ZINC PASTE 113 GM TP SCH ×2 (09:09→21:00)
[2022-09-27 20:00] VITALS: TEMP 97.8
[2022-09-27] MEDS: THIAMINE HCL 100 MG TABLET GT SCH (21:00)
[2022-09-27] MEDS: CHOLECALCIFEROL 1,000 UNIT TABLET GT SCH (21:00)
[2022-09-27] MEDS: FOLIC ACID 1 MG TABLET GT SCH (21:00)
[2022-09-28] MEDS: ALBUTEROL SULFATE 2.5 MG/3 ML NEBU NEB SCH ×6 (03:11→23:38)
[2022-09-28] MEDS: IPRATROPIUM BROMIDE 0.5 MG/2.5 ML NEBU NEB SCH ×6 (03:11→23:37)
[2022-09-28] MEDS: BACLOFEN 10 MG TABLET GT SCH ×3 (05:37→21:37)
[2022-09-28] MEDS: MAGNESIUM OXIDE 400 MG TABLET GT SCH (05:38)
[2022-09-28] MEDS: BACLOFEN 20 MG TABLET GT SCH ×3 (05:38→21:37)
[2022-09-28] MEDS: METOCLOPRAMIDE HCL 5 MG TABLET GT SCH ×3 (05:38→21:38)
[2022-09-28] MEDS: OMEPRAZOLE 20 MG CAPSULE.DR GT SCH (05:38)
[2022-09-28] MEDS: MIDODRINE HCL 10 MG TABLET GT SCH ×3 (05:39→21:38)
[2022-09-28 07:30] VITALS: TEMP 98.6
[2022-09-28] MEDS: HYDROGEN PEROXIDE 3% 118 ML BOTTLE TP SCH ×2 (08:21→19:57)
[2022-09-28] MEDS: FERROUS SULFATE 330 MG/7.5 ML UDC- FOR SA ONLY GT SCH ×2 (09:38→20:32)
[2022-09-28] MEDS: ACIDOPHILUS/BULGARICUS CHEW TAB GT SCH ×2 (09:38→20:32)
[2022-09-28] MEDS: REMEDY ESSENTIAL ZINC PASTE 113 GM TP SCH ×2 (09:38→20:33)
[2022-09-28] MEDS: PHENYTOIN 100 MG/4 ML UDC GT SCH ×2 (09:38→20:32)
[2022-09-28] MEDS: FUROSEMIDE 10 MG/ML GT SCH (09:38)
[2022-09-28] MEDS: levETIRAcetam 500 MG/5 ML LIQUID UDC GT SCH ×2 (09:38→20:33)
[2022-09-28] MEDS: POTASSIUM CHLORIDE 40 MEQ/30 ML LIQUID UDC GT SCH (09:38)
[2022-09-28 20:00] VITALS: BP 111/76; TEMP 98.9; O2SAT 99
[2022-09-28] MEDS: FOLIC ACID 1 MG TABLET GT SCH (20:32)
[2022-09-28] MEDS: CHOLECALCIFEROL 1,000 UNIT TABLET GT SCH (20:33)
[2022-09-28] MEDS: THIAMINE HCL 100 MG TABLET GT SCH (20:33)
[2022-09-29] MEDS: IPRATROPIUM BROMIDE 0.5 MG/2.5 ML NEBU NEB SCH ×6 (03:34→23:33)
[2022-09-29] MEDS: ALBUTEROL SULFATE 2.5 MG/3 ML NEBU NEB SCH ×6 (03:35→23:33)
[2022-09-29] MEDS: MAGNESIUM OXIDE 400 MG TABLET GT SCH (05:03)
[2022-09-29] MEDS: BACLOFEN 20 MG TABLET GT SCH ×3 (05:03→21:02)
[2022-09-29] MEDS: BACLOFEN 10 MG TABLET GT SCH ×3 (05:03→21:02)
[2022-09-29] MEDS: METOCLOPRAMIDE HCL 5 MG TABLET GT SCH ×3 (05:03→21:03)
[2022-09-29] MEDS: OMEPRAZOLE 20 MG CAPSULE.DR GT SCH (05:03)
[2022-09-29] MEDS: MIDODRINE HCL 10 MG TABLET GT SCH ×3 (05:03→21:03)
[2022-09-29 07:24] VITALS: TEMP 98.8
[2022-09-29] MEDS: HYDROGEN PEROXIDE 3% 118 ML BOTTLE TP SCH ×2 (08:41→19:29)
[2022-09-29] MEDS: PHENYTOIN 100 MG/4 ML UDC GT SCH ×2 (09:36→21:02)
[2022-09-29] MEDS: FERROUS SULFATE 330 MG/7.5 ML UDC- FOR SA ONLY GT SCH ×2 (09:36→21:02)
[2022-09-29] MEDS: POTASSIUM CHLORIDE 40 MEQ/30 ML LIQUID UDC GT SCH (09:37)
[2022-09-29] MEDS: ACIDOPHILUS/BULGARICUS CHEW TAB GT SCH ×2 (09:37→21:02)
[2022-09-29] MEDS: REMEDY ESSENTIAL ZINC PASTE 113 GM TP SCH ×2 (09:37→21:02)
[2022-09-29] MEDS: FUROSEMIDE 10 MG/ML GT SCH (09:37)
[2022-09-29] MEDS: levETIRAcetam 500 MG/5 ML LIQUID UDC GT SCH ×2 (09:37→21:02)
[2022-09-29 20:26] VITALS: TEMP 97.8
[2022-09-29] MEDS: MIRALAX 17 GM POWD.PACK GT SCH (21:02)
[2022-09-29] MEDS: CHOLECALCIFEROL 1,000 UNIT TABLET GT SCH (21:02)
[2022-09-29] MEDS: FOLIC ACID 1 MG TABLET GT SCH (21:02)
[2022-09-29] MEDS: THIAMINE HCL 100 MG TABLET GT SCH (21:02)
[2022-09-30] MEDS: IPRATROPIUM BROMIDE 0.5 MG/2.5 ML NEBU NEB SCH ×6 (03:46→23:54)
[2022-09-30] MEDS: ALBUTEROL SULFATE 2.5 MG/3 ML NEBU NEB SCH ×6 (03:47→23:54)
[2022-09-30] MEDS: MIDODRINE HCL 10 MG TABLET GT SCH ×3 (05:07→21:01)
[2022-09-30] MEDS: METOCLOPRAMIDE HCL 5 MG TABLET GT SCH ×3 (05:07→21:01)
[2022-09-30] MEDS: MAGNESIUM OXIDE 400 MG TABLET GT SCH (05:07)
[2022-09-30] MEDS: BACLOFEN 20 MG TABLET GT SCH ×3 (05:07→21:01)
[2022-09-30] MEDS: BACLOFEN 10 MG TABLET GT SCH ×3 (05:07→21:01)
[2022-09-30] MEDS: OMEPRAZOLE 20 MG CAPSULE.DR GT SCH (05:07)
[2022-09-30 07:31] VITALS: TEMP 97.3
[2022-09-30] MEDS: HYDROGEN PEROXIDE 3% 118 ML BOTTLE TP SCH ×2 (08:03→19:11)
[2022-09-30] MEDS: PHENYTOIN 100 MG/4 ML UDC GT SCH ×2 (09:29→20:49)
[2022-09-30] MEDS: FERROUS SULFATE 330 MG/7.5 ML UDC- FOR SA ONLY GT SCH ×2 (09:33→20:59)
[2022-09-30] MEDS: FUROSEMIDE 10 MG/ML GT SCH (09:34)
[2022-09-30] MEDS: ACIDOPHILUS/BULGARICUS CHEW TAB GT SCH ×2 (09:34→20:59)
[2022-09-30] MEDS: levETIRAcetam 500 MG/5 ML LIQUID UDC GT SCH ×2 (09:35→21:00)
[2022-09-30] MEDS: REMEDY ESSENTIAL ZINC PASTE 113 GM TP SCH ×2 (09:37→21:01)
[2022-09-30] MEDS: POTASSIUM CHLORIDE 40 MEQ/30 ML LIQUID UDC GT SCH (09:37)
[2022-09-30 20:04] VITALS: TEMP 97.7
[2022-09-30] MEDS: FOLIC ACID 1 MG TABLET GT SCH (21:00)
[2022-09-30] MEDS: THIAMINE HCL 100 MG TABLET GT SCH (21:00)
[2022-09-30] MEDS: CHOLECALCIFEROL 1,000 UNIT TABLET GT SCH (21:01)
[2022-10-01] MEDS: IPRATROPIUM BROMIDE 0.5 MG/2.5 ML NEBU NEB SCH ×6 (03:11→23:28)
[2022-10-01] MEDS: ALBUTEROL SULFATE 2.5 MG/3 ML NEBU NEB SCH ×6 (03:11→23:28)
[2022-10-01] MEDS: VITAL 1.5 CAL LIQUID GT PRN (04:41)
[2022-10-01] MEDS: BACLOFEN 10 MG TABLET GT SCH ×3 (06:13→21:30)
[2022-10-01] MEDS: BACLOFEN 20 MG TABLET GT SCH ×3 (06:13→21:30)
[2022-10-01] MEDS: MAGNESIUM OXIDE 400 MG TABLET GT SCH (06:13)
[2022-10-01] MEDS: OMEPRAZOLE 20 MG CAPSULE.DR GT SCH (06:14)
[2022-10-01] MEDS: METOCLOPRAMIDE HCL 5 MG TABLET GT SCH ×3 (06:14→21:31)
[2022-10-01] MEDS: MIDODRINE HCL 10 MG TABLET GT SCH ×3 (06:14→21:31)
[2022-10-01] MEDS: HYDROGEN PEROXIDE 3% 118 ML BOTTLE TP SCH ×2 (07:28→19:01)
[2022-10-01 07:37] VITALS: TEMP 97.3
[2022-10-01 07:39] VITALS: TEMP 96.2
[2022-10-01] MEDS: FERROUS SULFATE 330 MG/7.5 ML UDC- FOR SA ONLY GT SCH ×2 (09:17→21:23)
[2022-10-01] MEDS: PHENYTOIN 100 MG/4 ML UDC GT SCH ×2 (09:17→21:21)
[2022-10-01] MEDS: ACIDOPHILUS/BULGARICUS CHEW TAB GT SCH ×2 (09:17→21:24)
[2022-10-01] MEDS: FUROSEMIDE 10 MG/ML GT SCH (09:18)
[2022-10-01] MEDS: levETIRAcetam 500 MG/5 ML LIQUID UDC GT SCH ×2 (09:18→21:25)
[2022-10-01] MEDS: POTASSIUM CHLORIDE 40 MEQ/30 ML LIQUID UDC GT SCH (09:19)
[2022-10-01] MEDS: REMEDY ESSENTIAL ZINC PASTE 113 GM TP SCH ×2 (09:19→21:30)
[2022-10-01] MEDS: TRIAMCINOLONE ACET 0.1% OINT 15 GM TUBE TP SCH (09:19)
[2022-10-01 13:45] VITALS: BP 101/61; O2SAT 99
[2022-10-01] MEDS ORDERED: TRIAMCINOLONE ACET 0.1% CREAM 15 GM TUBE TP PRN (16:45)
[2022-10-01] MEDS ORDERED: NYSTATIN CREAM 30 GM TUBE TP PRN (17:00)
[2022-10-01 20:00] VITALS: TEMP 97.6
[2022-10-01] MEDS: FOLIC ACID 1 MG TABLET GT SCH (21:24)
[2022-10-01] MEDS: MIRALAX 17 GM POWD.PACK GT SCH (21:26)
[2022-10-01] MEDS: THIAMINE HCL 100 MG TABLET GT SCH (21:27)
[2022-10-01] MEDS: CHOLECALCIFEROL 1,000 UNIT TABLET GT SCH (21:29)
[2022-10-01] MEDS: TRIAMCINOLONE ACET 0.1% CREAM 15 GM TUBE TP SCH (21:29)
[2022-10-01] MEDS: NYSTATIN CREAM 30 GM TUBE TP SCH (21:30)
[2022-10-02] MEDS: IPRATROPIUM BROMIDE 0.5 MG/2.5 ML NEBU NEB SCH ×6 (03:23→23:30)
[2022-10-02] MEDS: ALBUTEROL SULFATE 2.5 MG/3 ML NEBU NEB SCH ×6 (03:23→23:30)
[2022-10-02 04:54] VITALS: BP 101/57; O2SAT 100
[2022-10-02] MEDS: BACLOFEN 10 MG TABLET GT SCH ×3 (06:18→21:06)
[2022-10-02] MEDS: OMEPRAZOLE 20 MG CAPSULE.DR GT SCH (06:18)
[2022-10-02] MEDS: MIDODRINE HCL 10 MG TABLET GT SCH ×3 (06:18→21:06)
[2022-10-02] MEDS: MAGNESIUM OXIDE 400 MG TABLET GT SCH (06:18)
[2022-10-02] MEDS: BACLOFEN 20 MG TABLET GT SCH ×3 (06:18→21:06)
[2022-10-02] MEDS: METOCLOPRAMIDE HCL 5 MG TABLET GT SCH ×3 (06:19→21:06)
[2022-10-02 07:41] VITALS: TEMP 96.3
[2022-10-02] MEDS: HYDROGEN PEROXIDE 3% 118 ML BOTTLE TP SCH ×2 (08:32→21:00)
[2022-10-02] MEDS: TRIAMCINOLONE ACET 0.1% OINT 15 GM TUBE TP SCH (09:00)
[2022-10-02] MEDS: TRIAMCINOLONE ACET 0.1% CREAM 15 GM TUBE TP SCH ×2 (09:00→21:06)
[2022-10-02] MEDS: NYSTATIN CREAM 30 GM TUBE TP SCH ×2 (09:00→21:06)
[2022-10-02] MEDS: PHENYTOIN 100 MG/4 ML UDC GT SCH ×2 (09:14→21:05)
[2022-10-02] MEDS: FERROUS SULFATE 330 MG/7.5 ML UDC- FOR SA ONLY GT SCH ×2 (09:15→21:05)
[2022-10-02] MEDS: ACIDOPHILUS/BULGARICUS CHEW TAB GT SCH ×2 (09:16→21:05)
[2022-10-02] MEDS: FUROSEMIDE 10 MG/ML GT SCH (09:18)
[2022-10-02] MEDS: levETIRAcetam 500 MG/5 ML LIQUID UDC GT SCH ×2 (09:18→21:05)
[2022-10-02] MEDS: POTASSIUM CHLORIDE 40 MEQ/30 ML LIQUID UDC GT SCH (09:19)
[2022-10-02] MEDS: REMEDY ESSENTIAL ZINC PASTE 113 GM TP SCH ×2 (09:25→21:06)
[2022-10-02 20:00] VITALS: TEMP 97.4
[2022-10-02] MEDS: CHOLECALCIFEROL 1,000 UNIT TABLET GT SCH (21:05)
[2022-10-02] MEDS: THIAMINE HCL 100 MG TABLET GT SCH (21:05)
[2022-10-02] MEDS: FOLIC ACID 1 MG TABLET GT SCH (21:05)
[2022-10-03] MEDS: IPRATROPIUM BROMIDE 0.5 MG/2.5 ML NEBU NEB SCH ×6 (03:17→23:21)
[2022-10-03] MEDS: ALBUTEROL SULFATE 2.5 MG/3 ML NEBU NEB SCH ×6 (03:17→23:21)
[2022-10-03] MEDS: VITAL 1.5 CAL LIQUID GT PRN (04:48)
[2022-10-03] MEDS: MAGNESIUM OXIDE 400 MG TABLET GT SCH (06:08)
[2022-10-03] MEDS: BACLOFEN 10 MG TABLET GT SCH ×3 (06:08→21:55)
[2022-10-03] MEDS: BACLOFEN 20 MG TABLET GT SCH ×3 (06:08→21:55)
[2022-10-03] MEDS: OMEPRAZOLE 20 MG CAPSULE.DR GT SCH (06:09)
[2022-10-03] MEDS: METOCLOPRAMIDE HCL 5 MG TABLET GT SCH ×3 (06:09→21:55)
[2022-10-03] MEDS: MIDODRINE HCL 10 MG TABLET GT SCH ×3 (06:09→21:55)
[2022-10-03 07:53] VITALS: TEMP 97.4
[2022-10-03] MEDS: HYDROGEN PEROXIDE 3% 118 ML BOTTLE TP SCH ×2 (08:06→21:21)
[2022-10-03] MEDS: PHENYTOIN 100 MG/4 ML UDC GT SCH ×2 (09:00→21:47)
[2022-10-03] MEDS: ACIDOPHILUS/BULGARICUS CHEW TAB GT SCH ×2 (09:01→21:50)
[2022-10-03] MEDS: FERROUS SULFATE 330 MG/7.5 ML UDC- FOR SA ONLY GT SCH ×2 (09:01→21:49)
[2022-10-03] MEDS: FUROSEMIDE 10 MG/ML GT SCH (09:02)
[2022-10-03] MEDS: levETIRAcetam 500 MG/5 ML LIQUID UDC GT SCH ×2 (09:03→21:53)
[2022-10-03] MEDS: POTASSIUM CHLORIDE 40 MEQ/30 ML LIQUID UDC GT SCH (09:04)
[2022-10-03] MEDS: TRIAMCINOLONE ACET 0.1% OINT 15 GM TUBE TP SCH (09:04)
[2022-10-03] MEDS: TRIAMCINOLONE ACET 0.1% CREAM 15 GM TUBE TP SCH ×2 (09:04→21:55)
[2022-10-03] MEDS: REMEDY ESSENTIAL ZINC PASTE 113 GM TP SCH ×2 (09:05→21:55)
[2022-10-03] MEDS: NYSTATIN CREAM 30 GM TUBE TP SCH ×2 (09:05→21:55)
[2022-10-03 20:00] VITALS: TEMP 97.4
[2022-10-03] MEDS: FOLIC ACID 1 MG TABLET GT SCH (21:51)
[2022-10-03] MEDS: MIRALAX 17 GM POWD.PACK GT SCH (21:53)
[2022-10-03] MEDS: THIAMINE HCL 100 MG TABLET GT SCH (21:54)
[2022-10-03] MEDS: CHOLECALCIFEROL 1,000 UNIT TABLET GT SCH (21:54)
[2022-10-04] MEDS: ALBUTEROL SULFATE 2.5 MG/3 ML NEBU NEB SCH ×6 (03:00→23:02)
[2022-10-04] MEDS: IPRATROPIUM BROMIDE 0.5 MG/2.5 ML NEBU NEB SCH ×6 (03:00→23:02)
[2022-10-04] MEDS: MAGNESIUM OXIDE 400 MG TABLET GT SCH (05:06)
[2022-10-04] MEDS: BACLOFEN 20 MG TABLET GT SCH ×3 (05:06→21:40)
[2022-10-04] MEDS: BACLOFEN 10 MG TABLET GT SCH ×3 (05:06→21:40)
[2022-10-04] MEDS: MIDODRINE HCL 10 MG TABLET GT SCH ×3 (05:07→21:41)
[2022-10-04] MEDS: METOCLOPRAMIDE HCL 5 MG TABLET GT SCH ×3 (05:07→21:41)
[2022-10-04] MEDS: OMEPRAZOLE 20 MG CAPSULE.DR GT SCH (05:07)
[2022-10-04] MEDS: HYDROGEN PEROXIDE 3% 118 ML BOTTLE TP SCH ×2 (08:03→20:56)
[2022-10-04 08:15] VITALS: TEMP 97.8
[2022-10-04] MEDS: PHENYTOIN 100 MG/4 ML UDC GT SCH ×2 (08:48→21:40)
[2022-10-04] MEDS: FERROUS SULFATE 330 MG/7.5 ML UDC- FOR SA ONLY GT SCH ×2 (08:50→21:34)
[2022-10-04] MEDS: FUROSEMIDE 10 MG/ML GT SCH (08:51)
[2022-10-04] MEDS: ACIDOPHILUS/BULGARICUS CHEW TAB GT SCH ×2 (08:51→21:33)
[2022-10-04] MEDS: POTASSIUM CHLORIDE 40 MEQ/30 ML LIQUID UDC GT SCH (08:53)
[2022-10-04] MEDS: levETIRAcetam 500 MG/5 ML LIQUID UDC GT SCH ×2 (08:53→21:32)
[2022-10-04] MEDS: TRIAMCINOLONE ACET 0.1% OINT 15 GM TUBE TP SCH (08:54)
[2022-10-04] MEDS: NYSTATIN CREAM 30 GM TUBE TP SCH ×2 (08:54→21:40)
[2022-10-04] MEDS: REMEDY ESSENTIAL ZINC PASTE 113 GM TP SCH ×2 (08:54→21:40)
[2022-10-04] MEDS: TRIAMCINOLONE ACET 0.1% CREAM 15 GM TUBE TP SCH ×2 (08:54→21:40)
[2022-10-04] MEDS: VITAL 1.5 CAL LIQUID GT PRN (19:11)
[2022-10-04 20:00] VITALS: TEMP 97.4
[2022-10-04] MEDS: CHOLECALCIFEROL 1,000 UNIT TABLET GT SCH (21:33)
[2022-10-04] MEDS: THIAMINE HCL 100 MG TABLET GT SCH (21:40)
[2022-10-04] MEDS: FOLIC ACID 1 MG TABLET GT SCH (21:40)
[2022-10-05] MEDS: IPRATROPIUM BROMIDE 0.5 MG/2.5 ML NEBU NEB SCH ×6 (03:01→23:05)
[2022-10-05] MEDS: ALBUTEROL SULFATE 2.5 MG/3 ML NEBU NEB SCH ×6 (03:01→23:05)
[2022-10-05] MEDS: MAGNESIUM OXIDE 400 MG TABLET GT SCH (05:01)
[2022-10-05] MEDS: MIDODRINE HCL 10 MG TABLET GT SCH ×3 (05:01→21:33)
[2022-10-05] MEDS: BACLOFEN 10 MG TABLET GT SCH ×3 (05:01→21:33)
[2022-10-05] MEDS: BACLOFEN 20 MG TABLET GT SCH ×3 (05:01→21:33)
[2022-10-05] MEDS: OMEPRAZOLE 20 MG CAPSULE.DR GT SCH (05:01)
[2022-10-05] MEDS: METOCLOPRAMIDE HCL 5 MG TABLET GT SCH ×3 (05:02→21:33)
[2022-10-05 07:33] VITALS: TEMP 97.4
[2022-10-05] MEDS: HYDROGEN PEROXIDE 3% 118 ML BOTTLE TP SCH ×2 (07:37→21:04)
[2022-10-05] MEDS: POTASSIUM CHLORIDE 40 MEQ/30 ML LIQUID UDC GT SCH (08:58)
[2022-10-05] MEDS: TRIAMCINOLONE ACET 0.1% CREAM 15 GM TUBE TP SCH ×2 (08:58→20:52)
[2022-10-05] MEDS: FUROSEMIDE 10 MG/ML GT SCH (08:58)
[2022-10-05] MEDS: FERROUS SULFATE 330 MG/7.5 ML UDC- FOR SA ONLY GT SCH ×2 (08:58→20:52)
[2022-10-05] MEDS: REMEDY ESSENTIAL ZINC PASTE 113 GM TP SCH ×2 (08:58→20:52)
[2022-10-05] MEDS: TRIAMCINOLONE ACET 0.1% OINT 15 GM TUBE TP SCH (08:58)
[2022-10-05] MEDS: NYSTATIN CREAM 30 GM TUBE TP SCH ×2 (08:58→20:52)
[2022-10-05] MEDS: ACIDOPHILUS/BULGARICUS CHEW TAB GT SCH ×2 (08:58→20:52)
[2022-10-05] MEDS: levETIRAcetam 500 MG/5 ML LIQUID UDC GT SCH ×2 (08:58→20:52)
[2022-10-05] MEDS: PHENYTOIN 100 MG/4 ML UDC GT SCH ×2 (08:58→20:52)
[2022-10-05 20:07] VITALS: TEMP 94.4
[2022-10-05] MEDS: FOLIC ACID 1 MG TABLET GT SCH (20:52)
[2022-10-05] MEDS: CHOLECALCIFEROL 1,000 UNIT TABLET GT SCH (20:52)
[2022-10-05] MEDS: THIAMINE HCL 100 MG TABLET GT SCH (20:52)
[2022-10-06 00:15] VITALS: TEMP 95.1
[2022-10-06] MEDS: VITAL 1.5 CAL LIQUID GT PRN (03:27)
[2022-10-06] MEDS: IPRATROPIUM BROMIDE 0.5 MG/2.5 ML NEBU NEB SCH ×6 (03:44→23:11)
[2022-10-06] MEDS: ALBUTEROL SULFATE 2.5 MG/3 ML NEBU NEB SCH ×6 (03:44→23:11)
[2022-10-06 04:00] VITALS: TEMP 97.3
[2022-10-06] MEDS: MIDODRINE HCL 10 MG TABLET GT SCH ×3 (05:50→21:23)
[2022-10-06] MEDS: MAGNESIUM OXIDE 400 MG TABLET GT SCH (05:50)
[2022-10-06] MEDS: BACLOFEN 20 MG TABLET GT SCH ×3 (05:50→21:23)
[2022-10-06] MEDS: BACLOFEN 10 MG TABLET GT SCH ×3 (05:50→21:23)
[2022-10-06] MEDS: OMEPRAZOLE 20 MG CAPSULE.DR GT SCH (05:50)
[2022-10-06] MEDS: METOCLOPRAMIDE HCL 5 MG TABLET GT SCH ×3 (05:50→21:23)
[2022-10-06 06:31] LABS: BASOPHILS % (AUTO) 0.3 % (0.0-2.0); EOSINOPHILS # (AUTO) 0.3 K/uL (0.0-0.7); EOSINOPHILS % (AUTO) 2.7 % (0.0-7.0); HEMATOCRIT 33.7 % (31.2-41.9); HEMOGLOBIN 11.1 g/dL (10.9-14.3); LYMPHOCYTES # (AUTO) 1.8 K/uL (0.8-4.8); LYMPHOCYTES % (AUTO) 15.2 % (20.5-51.5); MEAN CORPUSCULAR HEMOGLOBIN 31.9 uug (24.7-32.8); MEAN CORPUSCULAR HGB CONC 33 g/dL (32.3-35.6); MEAN CORPUSCULAR VOLUME 96.7 fL (75.5-95.3); MONOCYTES # (AUTO) 0.7 K/uL (0.1-1.30); MONOCYTES % (AUTO) 5.9 % (0.0-11.0); NEUTROPHILS # (AUTO) 8.8 K/uL (1.8-8.9); NEUTROPHILS % (AUTO) 75.9 % (38.5-71.5); PLATELET COUNT (AUTO) 315 K/uL (179-408); RED BLOOD CELL COUNT(AUTO) 3.48 MIL/uL (3.63-4.92); RED CELL DISTRIBUTION WIDTH 18.8 % (12.3-17.7); WHITE BLOOD COUNT (AUTO) 11.6 K/uL (3.8-11.8)
[2022-10-06 07:28] LABS: DIFFERENTIAL COMMENT 1
[2022-10-06 07:39] LABS: CALCIUM 8.3 mg/dL (8.5-10.1); CARBON DIOXIDE 21 mmol/L (21-32); CHLORIDE 107 mmol/L (98-107); CREATININE 0.5 mg/dL (0.6-1.3); GLUCOSE 92 mg/dL (74-106); MAGNESIUM 1.9 mg/dL (1.8-2.4); PHOSPHOROUS 3.9 mg/dL (2.5-4.9); POTASSIUM 3.9 mmol/L (3.5-5.1); SODIUM SERUM 141 mmol/L (136-145); UREA NITROGEN, BLOOD 14 mg/dL (7-18)
[2022-10-06 08:00] VITALS: TEMP 99
[2022-10-06] MEDS: HYDROGEN PEROXIDE 3% 118 ML BOTTLE TP SCH ×2 (08:20→19:12)
[2022-10-06] MEDS: ACIDOPHILUS/BULGARICUS CHEW TAB GT SCH ×2 (09:24→21:22)
[2022-10-06] MEDS: FERROUS SULFATE 330 MG/7.5 ML UDC- FOR SA ONLY GT SCH ×2 (09:24→21:22)
[2022-10-06] MEDS: POTASSIUM CHLORIDE 40 MEQ/30 ML LIQUID UDC GT SCH (09:24)
[2022-10-06] MEDS: TRIAMCINOLONE ACET 0.1% CREAM 15 GM TUBE TP SCH ×2 (09:24→21:23)
[2022-10-06] MEDS: PHENYTOIN 100 MG/4 ML UDC GT SCH ×2 (09:24→21:22)
[2022-10-06] MEDS: levETIRAcetam 500 MG/5 ML LIQUID UDC GT SCH ×2 (09:24→21:23)
[2022-10-06] MEDS: FUROSEMIDE 10 MG/ML GT SCH (09:24)
[2022-10-06] MEDS: NYSTATIN CREAM 30 GM TUBE TP SCH ×2 (09:25→21:23)
[2022-10-06] MEDS: REMEDY ESSENTIAL ZINC PASTE 113 GM TP SCH ×2 (09:25→21:23)
[2022-10-06] MEDS: TRIAMCINOLONE ACET 0.1% OINT 15 GM TUBE TP SCH (09:25)
[2022-10-06 20:33] VITALS: TEMP 98.5
[2022-10-06] MEDS: MIRALAX 17 GM POWD.PACK GT SCH (21:23)
[2022-10-06] MEDS: CHOLECALCIFEROL 1,000 UNIT TABLET GT SCH (21:23)
[2022-10-06] MEDS: FOLIC ACID 1 MG TABLET GT SCH (21:23)
[2022-10-06] MEDS: THIAMINE HCL 100 MG TABLET GT SCH (21:23)
[2022-10-07] MEDS: ALBUTEROL SULFATE 2.5 MG/3 ML NEBU NEB SCH ×6 (03:00→23:15)
[2022-10-07] MEDS: IPRATROPIUM BROMIDE 0.5 MG/2.5 ML NEBU NEB SCH ×6 (03:00→23:15)
[2022-10-07] MEDS: MIDODRINE HCL 10 MG TABLET GT SCH ×3 (05:01→21:28)
[2022-10-07] MEDS: METOCLOPRAMIDE HCL 5 MG TABLET GT SCH ×3 (05:01→21:28)
[2022-10-07] MEDS: MAGNESIUM OXIDE 400 MG TABLET GT SCH (05:01)
[2022-10-07] MEDS: OMEPRAZOLE 20 MG CAPSULE.DR GT SCH (05:01)
[2022-10-07] MEDS: BACLOFEN 20 MG TABLET GT SCH ×3 (05:01→21:28)
[2022-10-07] MEDS: BACLOFEN 10 MG TABLET GT SCH ×3 (05:01→21:26)
[2022-10-07 07:22] VITALS: TEMP 97.6
[2022-10-07] MEDS: TRIAMCINOLONE ACET 0.1% CREAM 15 GM TUBE TP SCH ×2 (09:00→21:26)
[2022-10-07] MEDS: FUROSEMIDE 10 MG/ML GT SCH (09:00)
[2022-10-07] MEDS: REMEDY ESSENTIAL ZINC PASTE 113 GM TP SCH ×2 (09:00→21:26)
[2022-10-07] MEDS: ACIDOPHILUS/BULGARICUS CHEW TAB GT SCH ×2 (09:00→21:24)
[2022-10-07] MEDS: POTASSIUM CHLORIDE 40 MEQ/30 ML LIQUID UDC GT SCH (09:00)
[2022-10-07] MEDS: FERROUS SULFATE 330 MG/7.5 ML UDC- FOR SA ONLY GT SCH ×2 (09:00→21:24)
[2022-10-07] MEDS: PHENYTOIN 100 MG/4 ML UDC GT SCH ×2 (09:00→21:24)
[2022-10-07] MEDS: levETIRAcetam 500 MG/5 ML LIQUID UDC GT SCH ×2 (09:00→21:24)
[2022-10-07] MEDS: TRIAMCINOLONE ACET 0.1% OINT 15 GM TUBE TP SCH (09:00)
[2022-10-07] MEDS: NYSTATIN CREAM 30 GM TUBE TP SCH ×2 (09:00→21:26)
[2022-10-07] MEDS: HYDROGEN PEROXIDE 3% 118 ML BOTTLE TP SCH ×2 (09:15→19:19)
[2022-10-07 20:00] VITALS: TEMP 97.7
[2022-10-07] MEDS: FOLIC ACID 1 MG TABLET GT SCH (21:24)
[2022-10-07] MEDS: THIAMINE HCL 100 MG TABLET GT SCH (21:25)
[2022-10-07] MEDS: CHOLECALCIFEROL 1,000 UNIT TABLET GT SCH (21:25)
[2022-10-08] MEDS: ALBUTEROL SULFATE 2.5 MG/3 ML NEBU NEB SCH ×6 (03:56→23:30)
[2022-10-08] MEDS: IPRATROPIUM BROMIDE 0.5 MG/2.5 ML NEBU NEB SCH ×6 (03:56→23:30)
[2022-10-08] MEDS: MIDODRINE HCL 10 MG TABLET GT SCH ×3 (05:21→21:25)
[2022-10-08] MEDS: MAGNESIUM OXIDE 400 MG TABLET GT SCH (05:21)
[2022-10-08] MEDS: BACLOFEN 20 MG TABLET GT SCH ×3 (05:21→21:25)
[2022-10-08] MEDS: BACLOFEN 10 MG TABLET GT SCH ×3 (05:21→21:25)
[2022-10-08] MEDS: METOCLOPRAMIDE HCL 5 MG TABLET GT SCH ×3 (05:22→21:26)
[2022-10-08] MEDS: OMEPRAZOLE 20 MG CAPSULE.DR GT SCH (05:22)
[2022-10-08 08:00] VITALS: TEMP 98.7
[2022-10-08] MEDS: HYDROGEN PEROXIDE 3% 118 ML BOTTLE TP SCH ×2 (08:09→19:17)
[2022-10-08] MEDS: PHENYTOIN 100 MG/4 ML UDC GT SCH ×2 (08:52→20:56)
[2022-10-08] MEDS: levETIRAcetam 500 MG/5 ML LIQUID UDC GT SCH ×2 (08:54→20:56)
[2022-10-08] MEDS: FERROUS SULFATE 330 MG/7.5 ML UDC- FOR SA ONLY GT SCH ×2 (08:54→20:56)
[2022-10-08] MEDS: FUROSEMIDE 10 MG/ML GT SCH (08:54)
[2022-10-08] MEDS: ACIDOPHILUS/BULGARICUS CHEW TAB GT SCH ×2 (08:54→20:56)
[2022-10-08] MEDS: POTASSIUM CHLORIDE 40 MEQ/30 ML LIQUID UDC GT SCH (08:55)
[2022-10-08] MEDS: TRIAMCINOLONE ACET 0.1% CREAM 15 GM TUBE TP SCH ×2 (08:56→20:56)
[2022-10-08] MEDS: TRIAMCINOLONE ACET 0.1% OINT 15 GM TUBE TP SCH (08:56)
[2022-10-08] MEDS: NYSTATIN CREAM 30 GM TUBE TP SCH ×2 (08:56→20:58)
[2022-10-08] MEDS: REMEDY ESSENTIAL ZINC PASTE 113 GM TP SCH ×2 (08:56→20:58)
[2022-10-08] MEDS: VITAL 1.5 CAL LIQUID GT PRN (13:01)
[2022-10-08 20:00] VITALS: TEMP 97.6
[2022-10-08] MEDS: THIAMINE HCL 100 MG TABLET GT SCH (20:56)
[2022-10-08] MEDS: FOLIC ACID 1 MG TABLET GT SCH (20:56)
[2022-10-08] MEDS: MIRALAX 17 GM POWD.PACK GT SCH (20:56)
[2022-10-08] MEDS: CHOLECALCIFEROL 1,000 UNIT TABLET GT SCH (20:56)
[2022-10-09] MEDS: ALBUTEROL SULFATE 2.5 MG/3 ML NEBU NEB SCH ×6 (04:02→23:03)
[2022-10-09] MEDS: IPRATROPIUM BROMIDE 0.5 MG/2.5 ML NEBU NEB SCH ×6 (04:02→23:03)
[2022-10-09] MEDS: BACLOFEN 10 MG TABLET GT SCH ×3 (05:12→21:46)
[2022-10-09] MEDS: METOCLOPRAMIDE HCL 5 MG TABLET GT SCH ×3 (05:12→21:48)
[2022-10-09] MEDS: OMEPRAZOLE 20 MG CAPSULE.DR GT SCH (05:12)
[2022-10-09] MEDS: MAGNESIUM OXIDE 400 MG TABLET GT SCH (05:12)
[2022-10-09] MEDS: BACLOFEN 20 MG TABLET GT SCH ×3 (05:12→21:46)
[2022-10-09] MEDS: MIDODRINE HCL 10 MG TABLET GT SCH ×3 (05:12→21:48)
[2022-10-09] MEDS: HYDROGEN PEROXIDE 3% 118 ML BOTTLE TP SCH ×2 (07:39→19:14)
[2022-10-09] MEDS: ACIDOPHILUS/BULGARICUS CHEW TAB GT SCH ×2 (09:13→20:46)
[2022-10-09] MEDS: PHENYTOIN 100 MG/4 ML UDC GT SCH ×2 (09:13→20:46)
[2022-10-09] MEDS: FUROSEMIDE 10 MG/ML GT SCH (09:13)
[2022-10-09] MEDS: FERROUS SULFATE 330 MG/7.5 ML UDC- FOR SA ONLY GT SCH ×2 (09:13→20:46)
[2022-10-09] MEDS: levETIRAcetam 500 MG/5 ML LIQUID UDC GT SCH ×2 (09:14→20:46)
[2022-10-09] MEDS: TRIAMCINOLONE ACET 0.1% CREAM 15 GM TUBE TP SCH ×2 (09:15→20:47)
[2022-10-09] MEDS: POTASSIUM CHLORIDE 40 MEQ/30 ML LIQUID UDC GT SCH (09:15)
[2022-10-09] MEDS: TRIAMCINOLONE ACET 0.1% OINT 15 GM TUBE TP SCH (09:18)
[2022-10-09] MEDS: REMEDY ESSENTIAL ZINC PASTE 113 GM TP SCH ×2 (09:19→20:47)
[2022-10-09] MEDS: NYSTATIN CREAM 30 GM TUBE TP SCH ×2 (09:19→20:47)
[2022-10-09] MEDS: VITAL 1.5 CAL LIQUID GT PRN (18:13)
[2022-10-09 20:00] VITALS: TEMP 97.6
[2022-10-09] MEDS: THIAMINE HCL 100 MG TABLET GT SCH (20:46)
[2022-10-09] MEDS: FOLIC ACID 1 MG TABLET GT SCH (20:46)
[2022-10-09] MEDS: CHOLECALCIFEROL 1,000 UNIT TABLET GT SCH (20:47)
[2022-10-10] MEDS: IPRATROPIUM BROMIDE 0.5 MG/2.5 ML NEBU NEB SCH ×6 (03:09→23:07)
[2022-10-10] MEDS: ALBUTEROL SULFATE 2.5 MG/3 ML NEBU NEB SCH ×6 (03:09→23:07)
[2022-10-10] MEDS: BACLOFEN 10 MG TABLET GT SCH ×3 (05:12→21:02)
[2022-10-10] MEDS: BACLOFEN 20 MG TABLET GT SCH ×3 (05:12→21:02)
[2022-10-10] MEDS: MIDODRINE HCL 10 MG TABLET GT SCH ×3 (05:13→21:02)
[2022-10-10] MEDS: MAGNESIUM OXIDE 400 MG TABLET GT SCH (05:13)
[2022-10-10] MEDS: METOCLOPRAMIDE HCL 5 MG TABLET GT SCH ×3 (05:13→21:02)
[2022-10-10] MEDS: OMEPRAZOLE 20 MG CAPSULE.DR GT SCH (05:13)
[2022-10-10 07:39] VITALS: TEMP 98.4
[2022-10-10] MEDS: HYDROGEN PEROXIDE 3% 118 ML BOTTLE TP SCH ×2 (07:43→19:16)
[2022-10-10] MEDS: PHENYTOIN 100 MG/4 ML UDC GT SCH ×2 (08:11→21:01)
[2022-10-10] MEDS: FUROSEMIDE 10 MG/ML GT SCH (08:12)
[2022-10-10] MEDS: ACIDOPHILUS/BULGARICUS CHEW TAB GT SCH ×2 (08:12→21:01)
[2022-10-10] MEDS: FERROUS SULFATE 330 MG/7.5 ML UDC- FOR SA ONLY GT SCH ×2 (08:12→21:01)
[2022-10-10] MEDS: levETIRAcetam 500 MG/5 ML LIQUID UDC GT SCH ×2 (08:13→21:01)
[2022-10-10] MEDS: POTASSIUM CHLORIDE 40 MEQ/30 ML LIQUID UDC GT SCH (08:18)
[2022-10-10] MEDS: TRIAMCINOLONE ACET 0.1% CREAM 15 GM TUBE TP SCH ×2 (08:19→21:01)
[2022-10-10] MEDS: NYSTATIN CREAM 30 GM TUBE TP SCH ×2 (08:19→21:01)
[2022-10-10] MEDS: REMEDY ESSENTIAL ZINC PASTE 113 GM TP SCH ×2 (08:19→21:01)
[2022-10-10] MEDS: TRIAMCINOLONE ACET 0.1% OINT 15 GM TUBE TP SCH (08:19)
[2022-10-10 20:00] VITALS: TEMP 97.7
[2022-10-10] MEDS: CHOLECALCIFEROL 1,000 UNIT TABLET GT SCH (21:01)
[2022-10-10] MEDS: FOLIC ACID 1 MG TABLET GT SCH (21:01)
[2022-10-10] MEDS: THIAMINE HCL 100 MG TABLET GT SCH (21:01)
[2022-10-10] MEDS: MIRALAX 17 GM POWD.PACK GT SCH (21:01)
[2022-10-11] MEDS: IPRATROPIUM BROMIDE 0.5 MG/2.5 ML NEBU NEB SCH ×6 (03:30→23:29)
[2022-10-11] MEDS: ALBUTEROL SULFATE 2.5 MG/3 ML NEBU NEB SCH ×6 (03:30→23:29)
[2022-10-11] MEDS: VITAL 1.5 CAL LIQUID GT PRN (04:28)
[2022-10-11] MEDS: BACLOFEN 20 MG TABLET GT SCH ×3 (05:08→21:03)
[2022-10-11] MEDS: METOCLOPRAMIDE HCL 5 MG TABLET GT SCH ×3 (05:08→21:04)
[2022-10-11] MEDS: OMEPRAZOLE 20 MG CAPSULE.DR GT SCH (05:08)
[2022-10-11] MEDS: MIDODRINE HCL 10 MG TABLET GT SCH ×3 (05:08→21:04)
[2022-10-11] MEDS: BACLOFEN 10 MG TABLET GT SCH ×3 (05:08→21:03)
[2022-10-11] MEDS: MAGNESIUM OXIDE 400 MG TABLET GT SCH (05:08)
[2022-10-11] MEDS: HYDROGEN PEROXIDE 3% 118 ML BOTTLE TP SCH ×2 (07:09→19:18)
[2022-10-11 07:49] VITALS: TEMP 97.9
[2022-10-11] MEDS: ACIDOPHILUS/BULGARICUS CHEW TAB GT SCH ×2 (09:44→21:01)
[2022-10-11] MEDS: FERROUS SULFATE 330 MG/7.5 ML UDC- FOR SA ONLY GT SCH ×2 (09:44→21:01)
[2022-10-11] MEDS: PHENYTOIN 100 MG/4 ML UDC GT SCH ×2 (09:44→21:01)
[2022-10-11] MEDS: FUROSEMIDE 10 MG/ML GT SCH (09:45)
[2022-10-11] MEDS: levETIRAcetam 500 MG/5 ML LIQUID UDC GT SCH ×2 (09:46→21:01)
[2022-10-11] MEDS: POTASSIUM CHLORIDE 40 MEQ/30 ML LIQUID UDC GT SCH (09:46)
[2022-10-11] MEDS: TRIAMCINOLONE ACET 0.1% CREAM 15 GM TUBE TP SCH ×2 (09:48→21:01)
[2022-10-11] MEDS: TRIAMCINOLONE ACET 0.1% OINT 15 GM TUBE TP SCH (09:48)
[2022-10-11] MEDS: REMEDY ESSENTIAL ZINC PASTE 113 GM TP SCH ×2 (09:49→21:03)
[2022-10-11] MEDS: NYSTATIN CREAM 30 GM TUBE TP SCH ×2 (09:49→21:03)
[2022-10-11 20:00] VITALS: TEMP 99.8
[2022-10-11] MEDS: FOLIC ACID 1 MG TABLET GT SCH (21:01)
[2022-10-11] MEDS: CHOLECALCIFEROL 1,000 UNIT TABLET GT SCH (21:01)
[2022-10-11] MEDS: THIAMINE HCL 100 MG TABLET GT SCH (21:01)
[2022-10-12] MEDS: ALBUTEROL SULFATE 2.5 MG/3 ML NEBU NEB SCH ×5 (04:26→23:12)
[2022-10-12] MEDS: IPRATROPIUM BROMIDE 0.5 MG/2.5 ML NEBU NEB SCH ×5 (04:26→23:12)
[2022-10-12] MEDS: BACLOFEN 10 MG TABLET GT SCH ×3 (05:49→21:03)
[2022-10-12] MEDS: MIDODRINE HCL 10 MG TABLET GT SCH ×3 (05:49→21:03)
[2022-10-12] MEDS: MAGNESIUM OXIDE 400 MG TABLET GT SCH (05:49)
[2022-10-12] MEDS: BACLOFEN 20 MG TABLET GT SCH ×3 (05:49→21:03)
[2022-10-12] MEDS: OMEPRAZOLE 20 MG CAPSULE.DR GT SCH (05:50)
[2022-10-12] MEDS: METOCLOPRAMIDE HCL 5 MG TABLET GT SCH ×3 (05:50→21:03)
[2022-10-12] MEDS: HYDROGEN PEROXIDE 3% 118 ML BOTTLE TP SCH ×2 (07:40→19:14)
[2022-10-12 08:04] VITALS: TEMP 97.6
[2022-10-12] MEDS: PHENYTOIN 100 MG/4 ML UDC GT SCH ×2 (08:33→20:47)
[2022-10-12] MEDS: ACIDOPHILUS/BULGARICUS CHEW TAB GT SCH ×2 (08:34→20:47)
[2022-10-12] MEDS: FUROSEMIDE 10 MG/ML GT SCH (08:34)
[2022-10-12] MEDS: FERROUS SULFATE 330 MG/7.5 ML UDC- FOR SA ONLY GT SCH ×2 (08:34→20:47)
[2022-10-12] MEDS: levETIRAcetam 500 MG/5 ML LIQUID UDC GT SCH ×2 (08:35→20:48)
[2022-10-12] MEDS: REMEDY ESSENTIAL ZINC PASTE 113 GM TP SCH ×2 (08:36→20:49)
[2022-10-12] MEDS: POTASSIUM CHLORIDE 40 MEQ/30 ML LIQUID UDC GT SCH (08:36)
[2022-10-12] MEDS: TRIAMCINOLONE ACET 0.1% OINT 15 GM TUBE TP SCH (08:36)
[2022-10-12] MEDS: NYSTATIN CREAM 30 GM TUBE TP SCH ×2 (08:36→20:49)
[2022-10-12] MEDS: TRIAMCINOLONE ACET 0.1% CREAM 15 GM TUBE TP SCH ×2 (08:36→20:48)
[2022-10-12] MEDS: VITAL 1.5 CAL LIQUID GT PRN (16:43)
[2022-10-12 20:38] VITALS: TEMP 97.5
[2022-10-12] MEDS: FOLIC ACID 1 MG TABLET GT SCH (20:47)
[2022-10-12] MEDS: THIAMINE HCL 100 MG TABLET GT SCH (20:48)
[2022-10-12] MEDS: CHOLECALCIFEROL 1,000 UNIT TABLET GT SCH (20:48)
[2022-10-13] MEDS: ALBUTEROL SULFATE 2.5 MG/3 ML NEBU NEB SCH ×6 (02:59→23:18)
[2022-10-13] MEDS: IPRATROPIUM BROMIDE 0.5 MG/2.5 ML NEBU NEB SCH ×6 (02:59→23:18)
[2022-10-13] MEDS: BACLOFEN 10 MG TABLET GT SCH ×3 (05:00→21:51)
[2022-10-13] MEDS: MAGNESIUM OXIDE 400 MG TABLET GT SCH (05:01)
[2022-10-13] MEDS: BACLOFEN 20 MG TABLET GT SCH ×3 (05:01→21:51)
[2022-10-13] MEDS: OMEPRAZOLE 20 MG CAPSULE.DR GT SCH (05:01)
[2022-10-13] MEDS: MIDODRINE HCL 10 MG TABLET GT SCH ×3 (05:01→21:52)
[2022-10-13] MEDS: METOCLOPRAMIDE HCL 5 MG TABLET GT SCH ×3 (05:01→21:52)
[2022-10-13 07:25] LABS: BASOPHILS # (AUTO) 0.1 K/UL (0.0-0.2); BASOPHILS % (AUTO) 0.7 % (0.0-2.0); EOSINOPHILS # (AUTO) 0.4 K/uL (0.0-0.7); EOSINOPHILS % (AUTO) 3.1 % (0.0-7.0); HEMATOCRIT 31.8 % (31.2-41.9); HEMOGLOBIN 10.5 g/dL (10.9-14.3); LYMPHOCYTES # (AUTO) 2.2 K/uL (0.8-4.8); LYMPHOCYTES % (AUTO) 17.7 % (20.5-51.5); MEAN CORPUSCULAR HGB CONC 33 g/dL (32.3-35.6); MEAN CORPUSCULAR VOLUME 96.8 fL (75.5-95.3); MONOCYTES # (AUTO) 0.8 K/uL (0.1-1.30); MONOCYTES % (AUTO) 6.1 % (0.0-11.0); NEUTROPHILS # (AUTO) 9.2 K/uL (1.8-8.9); NEUTROPHILS % (AUTO) 72.4 % (38.5-71.5); PLATELET COUNT (AUTO) 391 K/uL (179-408); RED BLOOD CELL COUNT(AUTO) 3.29 MIL/uL (3.63-4.92); RED CELL DISTRIBUTION WIDTH 18.9 % (12.3-17.7); WHITE BLOOD COUNT (AUTO) 12.7 K/uL (3.8-11.8)
[2022-10-13 08:01] VITALS: TEMP 96
[2022-10-13 08:35] LABS: ALBUMIN 2.4 g/dL (3.4-5.0); BILIRUBIN,TOTAL 0.1 mg/dL (0.2-1.0); CALCIUM 8.5 mg/dL (8.5-10.1); CREATININE 0.6 mg/dL (0.6-1.3); MAGNESIUM 2.2 mg/dL (1.8-2.4); PHOSPHOROUS 3.8 mg/dL (2.5-4.9); POTASSIUM 3.7 mmol/L (3.5-5.1); TOTAL PROTEIN, SERUM 7.3 g/dL (6.4-8.2)
[2022-10-13 08:47] LABS: DIFFERENTIAL COMMENT 1
[2022-10-13] MEDS: PHENYTOIN 100 MG/4 ML UDC GT SCH ×2 (09:10→21:47)
[2022-10-13] MEDS: ACIDOPHILUS/BULGARICUS CHEW TAB GT SCH ×2 (09:11→21:48)
[2022-10-13] MEDS: FERROUS SULFATE 330 MG/7.5 ML UDC- FOR SA ONLY GT SCH ×2 (09:11→21:48)
[2022-10-13] MEDS: FUROSEMIDE 10 MG/ML GT SCH (09:12)
[2022-10-13] MEDS: levETIRAcetam 500 MG/5 ML LIQUID UDC GT SCH ×2 (09:13→21:49)
[2022-10-13] MEDS: POTASSIUM CHLORIDE 40 MEQ/30 ML LIQUID UDC GT SCH (09:13)
[2022-10-13] MEDS: TRIAMCINOLONE ACET 0.1% CREAM 15 GM TUBE TP SCH ×2 (09:13→21:51)
[2022-10-13] MEDS: REMEDY ESSENTIAL ZINC PASTE 113 GM TP SCH ×2 (09:13→21:51)
[2022-10-13] MEDS: NYSTATIN CREAM 30 GM TUBE TP SCH ×2 (09:13→21:51)
[2022-10-13] MEDS: TRIAMCINOLONE ACET 0.1% OINT 15 GM TUBE TP SCH (09:13)
[2022-10-13] MEDS: HYDROGEN PEROXIDE 3% 118 ML BOTTLE TP SCH ×2 (09:22→19:21)
[2022-10-13 20:08] VITALS: TEMP 97.2
[2022-10-13] MEDS: FOLIC ACID 1 MG TABLET GT SCH (21:49)
[2022-10-13] MEDS: MIRALAX 17 GM POWD.PACK GT SCH (21:49)
[2022-10-13] MEDS: THIAMINE HCL 100 MG TABLET GT SCH (21:51)
[2022-10-13] MEDS: CHOLECALCIFEROL 1,000 UNIT TABLET GT SCH (21:51)
[2022-10-13 23:03] LABS: *BILIRUBIN,URIN NEGATIVE (NEGATIVE); *COLOR,URINE YELLOW (YELLOW); *KETONES,URINE NEGATIVE (NEGATIVE); *PROTEIN,URINE 2+ (NEGATIVE); *UROBILINOGEN,URINE 0.2 E.U./dl (NORMAL); LEUKOCYTE ESTERASE ,URINE 1+ (NEGATIVE); NITRITE, URINE POSITIVE (NEGATIVE); PH,URINE 7.5 (5.0-8.0); UGLUCOSE NEGATIVE (NEGATIVE)
[2022-10-13 23:12] LABS: *BLOOD, URINE TRACE (NEGATIVE); *CLARITY,URINE SLIGHTLY CLOUDY (CLEAR)
[2022-10-13 23:14] LABS: BACTERIA,URINE MANY /HPF (NONE SEEN); SQUAMOUS EPITHELIAL CELL,UR MODERATE /HPF (NONE SEEN)
[2022-10-14] MEDS: VITAL 1.5 CAL LIQUID GT PRN (01:30)
[2022-10-14] MEDS: IPRATROPIUM BROMIDE 0.5 MG/2.5 ML NEBU NEB SCH ×6 (03:50→23:28)
[2022-10-14] MEDS: ALBUTEROL SULFATE 2.5 MG/3 ML NEBU NEB SCH ×6 (03:50→23:28)
[2022-10-14] MEDS: BACLOFEN 20 MG TABLET GT SCH ×3 (05:43→21:41)
[2022-10-14] MEDS: MAGNESIUM OXIDE 400 MG TABLET GT SCH (05:43)
[2022-10-14] MEDS: BACLOFEN 10 MG TABLET GT SCH ×3 (05:43→21:41)
[2022-10-14] MEDS: MIDODRINE HCL 10 MG TABLET GT SCH ×3 (05:43→21:43)
[2022-10-14] MEDS: OMEPRAZOLE 20 MG CAPSULE.DR GT SCH (05:43)
[2022-10-14] MEDS: METOCLOPRAMIDE HCL 5 MG TABLET GT SCH ×3 (05:44→21:43)
[2022-10-14] MEDS: HYDROGEN PEROXIDE 3% 118 ML BOTTLE TP SCH ×2 (07:21→19:14)
[2022-10-14] MEDS: TRIAMCINOLONE ACET 0.1% OINT 15 GM TUBE TP SCH (09:00)
[2022-10-14] MEDS: NYSTATIN CREAM 30 GM TUBE TP SCH ×2 (09:00→20:47)
[2022-10-14] MEDS: TRIAMCINOLONE ACET 0.1% CREAM 15 GM TUBE TP SCH ×2 (09:00→20:47)
[2022-10-14] MEDS: ACIDOPHILUS/BULGARICUS CHEW TAB GT SCH ×2 (09:06→20:41)
[2022-10-14] MEDS: levETIRAcetam 500 MG/5 ML LIQUID UDC GT SCH ×2 (09:06→20:45)
[2022-10-14] MEDS: PHENYTOIN 100 MG/4 ML UDC GT SCH ×2 (09:06→20:39)
[2022-10-14] MEDS: FERROUS SULFATE 330 MG/7.5 ML UDC- FOR SA ONLY GT SCH ×2 (09:06→20:41)
[2022-10-14] MEDS: POTASSIUM CHLORIDE 40 MEQ/30 ML LIQUID UDC GT SCH (09:07)
[2022-10-14] MEDS: REMEDY ESSENTIAL ZINC PASTE 113 GM TP SCH ×2 (09:07→20:47)
[2022-10-14] MEDS: FUROSEMIDE 10 MG/ML GT SCH (09:09)
[2022-10-14 09:17] VITALS: TEMP 97
[2022-10-14 19:55] VITALS: TEMP 97.2
[2022-10-14] MEDS: FOLIC ACID 1 MG TABLET GT SCH (20:45)
[2022-10-14] MEDS: CHOLECALCIFEROL 1,000 UNIT TABLET GT SCH (20:47)
[2022-10-14] MEDS: THIAMINE HCL 100 MG TABLET GT SCH (20:47)
[2022-10-15] MEDS: ALBUTEROL SULFATE 2.5 MG/3 ML NEBU NEB SCH ×6 (03:41→23:22)
[2022-10-15] MEDS: IPRATROPIUM BROMIDE 0.5 MG/2.5 ML NEBU NEB SCH ×6 (03:41→23:22)
[2022-10-15] MEDS: VITAL 1.5 CAL LIQUID GT PRN (05:07)
[2022-10-15] MEDS: MAGNESIUM OXIDE 400 MG TABLET GT SCH (06:21)
[2022-10-15] MEDS: BACLOFEN 10 MG TABLET GT SCH ×3 (06:21→21:04)
[2022-10-15] MEDS: BACLOFEN 20 MG TABLET GT SCH ×3 (06:21→21:04)
[2022-10-15] MEDS: MIDODRINE HCL 10 MG TABLET GT SCH ×3 (06:22→21:05)
[2022-10-15] MEDS: METOCLOPRAMIDE HCL 5 MG TABLET GT SCH ×3 (06:22→21:06)
[2022-10-15] MEDS: OMEPRAZOLE 20 MG CAPSULE.DR GT SCH (06:22)
[2022-10-15] MEDS: HYDROGEN PEROXIDE 3% 118 ML BOTTLE TP SCH ×2 (07:32→19:08)
[2022-10-15 07:42] VITALS: TEMP 97
[2022-10-15 07:51] LABS: BASOPHILS # (AUTO) 0.1 K/UL (0.0-0.2); BASOPHILS % (AUTO) 0.8 % (0.0-2.0); EOSINOPHILS # (AUTO) 0.2 K/uL (0.0-0.7); EOSINOPHILS % (AUTO) 2.4 % (0.0-7.0); HEMATOCRIT 29.3 % (31.2-41.9); LYMPHOCYTES # (AUTO) 2.3 K/uL (0.8-4.8); MEAN CORPUSCULAR HEMOGLOBIN 33.1 uug (24.7-32.8); MEAN CORPUSCULAR HGB CONC 34 g/dL (32.3-35.6); MEAN CORPUSCULAR VOLUME 97.4 fL (75.5-95.3); MONOCYTES # (AUTO) 0.7 K/uL (0.1-1.30); MONOCYTES % (AUTO) 6.8 % (0.0-11.0); NEUTROPHILS # (AUTO) 6.4 K/uL (1.8-8.9); PLATELET COUNT (AUTO) 378 K/uL (179-408); RED BLOOD CELL COUNT(AUTO) 3.01 MIL/uL (3.63-4.92); RED CELL DISTRIBUTION WIDTH 18.3 % (12.3-17.7); WHITE BLOOD COUNT (AUTO) 9.6 K/uL (3.8-11.8)
[2022-10-15 07:55] LABS: DIFFERENTIAL COMMENT 1
[2022-10-15 08:04] LABS: ALBUMIN 2.4 g/dL (3.4-5.0); BILIRUBIN,TOTAL 0.2 mg/dL (0.2-1.0); CALCIUM 8.4 mg/dL (8.5-10.1); CREATININE 0.6 mg/dL (0.6-1.3); POTASSIUM 3.7 mmol/L (3.5-5.1); TOTAL PROTEIN, SERUM 7.2 g/dL (6.4-8.2)
[2022-10-15] MEDS: PHENYTOIN 100 MG/4 ML UDC GT SCH ×2 (09:28→20:46)
[2022-10-15] MEDS: FERROUS SULFATE 330 MG/7.5 ML UDC- FOR SA ONLY GT SCH ×2 (09:28→20:47)
[2022-10-15] MEDS: ACIDOPHILUS/BULGARICUS CHEW TAB GT SCH ×2 (09:29→20:47)
[2022-10-15] MEDS: POTASSIUM CHLORIDE 40 MEQ/30 ML LIQUID UDC GT SCH (09:29)
[2022-10-15] MEDS: levETIRAcetam 500 MG/5 ML LIQUID UDC GT SCH ×2 (09:29→20:48)
[2022-10-15] MEDS: FUROSEMIDE 10 MG/ML GT SCH (09:29)
[2022-10-15] MEDS: REMEDY ESSENTIAL ZINC PASTE 113 GM TP SCH ×2 (09:30→20:56)
[2022-10-15] MEDS: TRIAMCINOLONE ACET 0.1% CREAM 15 GM TUBE TP SCH ×2 (09:30→20:56)
[2022-10-15] MEDS: NYSTATIN CREAM 30 GM TUBE TP SCH ×2 (09:31→20:56)
[2022-10-15 20:00] VITALS: TEMP 98.8
[2022-10-15] MEDS: FOLIC ACID 1 MG TABLET GT SCH (20:47)
[2022-10-15] MEDS: MIRALAX 17 GM POWD.PACK GT SCH (20:49)
[2022-10-15] MEDS: CHOLECALCIFEROL 1,000 UNIT TABLET GT SCH (20:53)
[2022-10-15] MEDS: THIAMINE HCL 100 MG TABLET GT SCH (20:53)
[2022-10-16] MEDS: ALBUTEROL SULFATE 2.5 MG/3 ML NEBU NEB SCH ×5 (03:32→19:08)
[2022-10-16] MEDS: IPRATROPIUM BROMIDE 0.5 MG/2.5 ML NEBU NEB SCH ×5 (03:32→19:08)
[2022-10-16] MEDS: BACLOFEN 20 MG TABLET GT SCH ×3 (06:27→22:00)
[2022-10-16] MEDS: MAGNESIUM OXIDE 400 MG TABLET GT SCH (06:27)
[2022-10-16] MEDS: BACLOFEN 10 MG TABLET GT SCH ×3 (06:27→21:04)
[2022-10-16] MEDS: MIDODRINE HCL 10 MG TABLET GT SCH ×3 (06:28→21:05)
[2022-10-16] MEDS: OMEPRAZOLE 20 MG CAPSULE.DR GT SCH (06:28)
[2022-10-16] MEDS: METOCLOPRAMIDE HCL 5 MG TABLET GT SCH ×3 (06:28→21:05)
[2022-10-16 07:55] VITALS: TEMP 97.4
[2022-10-16] MEDS: HYDROGEN PEROXIDE 3% 118 ML BOTTLE TP SCH ×2 (08:02→21:20)
[2022-10-16] MEDS: REMEDY ESSENTIAL ZINC PASTE 113 GM TP SCH ×2 (09:06→20:49)
[2022-10-16] MEDS: NYSTATIN CREAM 30 GM TUBE TP SCH ×2 (09:06→20:49)
[2022-10-16] MEDS: TRIAMCINOLONE ACET 0.1% CREAM 15 GM TUBE TP SCH ×2 (09:06→20:49)
[2022-10-16] MEDS: POTASSIUM CHLORIDE 40 MEQ/30 ML LIQUID UDC GT SCH (09:07)
[2022-10-16] MEDS: levETIRAcetam 500 MG/5 ML LIQUID UDC GT SCH ×2 (09:08→20:48)
[2022-10-16] MEDS: ACIDOPHILUS/BULGARICUS CHEW TAB GT SCH ×2 (09:10→20:47)
[2022-10-16] MEDS: FUROSEMIDE 10 MG/ML GT SCH (09:13)
[2022-10-16] MEDS: FERROUS SULFATE 330 MG/7.5 ML UDC- FOR SA ONLY GT SCH ×2 (09:20→20:47)
[2022-10-16] MEDS: PHENYTOIN 100 MG/4 ML UDC GT SCH ×2 (09:21→20:45)
[2022-10-16] MEDS: VITAL 1.5 CAL LIQUID GT PRN (13:23)
[2022-10-16 20:00] VITALS: TEMP 98.8
[2022-10-16] MEDS: FOLIC ACID 1 MG TABLET GT SCH (20:48)
[2022-10-16] MEDS: CHOLECALCIFEROL 1,000 UNIT TABLET GT SCH (20:49)
[2022-10-16] MEDS: THIAMINE HCL 100 MG TABLET GT SCH (21:04)
[2022-10-17] MEDS: ALBUTEROL SULFATE 2.5 MG/3 ML NEBU NEB SCH ×7 (00:29→23:00)
[2022-10-17] MEDS: IPRATROPIUM BROMIDE 0.5 MG/2.5 ML NEBU NEB SCH ×7 (00:29→23:00)
[2022-10-17] MEDS: MAGNESIUM OXIDE 400 MG TABLET GT SCH (05:53)
[2022-10-17] MEDS: BACLOFEN 10 MG TABLET GT SCH ×3 (05:53→21:48)
[2022-10-17] MEDS: BACLOFEN 20 MG TABLET GT SCH ×3 (05:53→21:48)
[2022-10-17] MEDS: METOCLOPRAMIDE HCL 5 MG TABLET GT SCH ×3 (05:54→21:50)
[2022-10-17] MEDS: OMEPRAZOLE 20 MG CAPSULE.DR GT SCH (05:54)
[2022-10-17] MEDS: MIDODRINE HCL 10 MG TABLET GT SCH ×4 (05:54→21:49)
[2022-10-17 07:33] VITALS: TEMP 98
[2022-10-17] MEDS: HYDROGEN PEROXIDE 3% 118 ML BOTTLE TP SCH ×2 (08:27→18:07)
[2022-10-17] MEDS: PHENYTOIN 100 MG/4 ML UDC GT SCH ×2 (08:55→21:00)
[2022-10-17] MEDS: FERROUS SULFATE 330 MG/7.5 ML UDC- FOR SA ONLY GT SCH ×2 (08:55→21:00)
[2022-10-17] MEDS: ACIDOPHILUS/BULGARICUS CHEW TAB GT SCH ×2 (08:56→21:00)
[2022-10-17] MEDS: TRIAMCINOLONE ACET 0.1% CREAM 15 GM TUBE TP SCH ×2 (08:57→21:47)
[2022-10-17] MEDS: NYSTATIN CREAM 30 GM TUBE TP SCH ×2 (08:57→21:47)
[2022-10-17] MEDS: REMEDY ESSENTIAL ZINC PASTE 113 GM TP SCH ×2 (08:57→21:47)
[2022-10-17] MEDS: levETIRAcetam 500 MG/5 ML LIQUID UDC GT SCH ×2 (09:02→21:00)
[2022-10-17] MEDS: FUROSEMIDE 10 MG/ML GT SCH (09:02)
[2022-10-17] MEDS: POTASSIUM CHLORIDE 40 MEQ/30 ML LIQUID UDC GT SCH (09:02)
[2022-10-17] MEDS: VITAL 1.5 CAL LIQUID GT PRN (17:43)
[2022-10-17 20:00] VITALS: TEMP 98.8
[2022-10-17] MEDS: MIRALAX 17 GM POWD.PACK GT SCH (21:44)
[2022-10-17] MEDS: FOLIC ACID 1 MG TABLET GT SCH (21:44)
[2022-10-17] MEDS: THIAMINE HCL 100 MG TABLET GT SCH (21:45)
[2022-10-17] MEDS: CHOLECALCIFEROL 1,000 UNIT TABLET GT SCH (21:46)
[2022-10-18] MEDS: IPRATROPIUM BROMIDE 0.5 MG/2.5 ML NEBU NEB SCH ×6 (03:05→23:21)
[2022-10-18] MEDS: ALBUTEROL SULFATE 2.5 MG/3 ML NEBU NEB SCH ×6 (03:05→23:21)
[2022-10-18] MEDS: BACLOFEN 10 MG TABLET GT SCH ×3 (05:22→21:39)
[2022-10-18] MEDS: MIDODRINE HCL 10 MG TABLET GT SCH ×3 (05:22→21:40)
[2022-10-18] MEDS: BACLOFEN 20 MG TABLET GT SCH ×3 (05:22→21:39)
[2022-10-18] MEDS: OMEPRAZOLE 20 MG CAPSULE.DR GT SCH (05:23)
[2022-10-18] MEDS: METOCLOPRAMIDE HCL 5 MG TABLET GT SCH ×3 (05:23→21:41)
[2022-10-18] MEDS: MAGNESIUM OXIDE 400 MG TABLET GT SCH (05:24)
[2022-10-18] MEDS: HYDROGEN PEROXIDE 3% 118 ML BOTTLE TP SCH ×2 (07:49→21:03)
[2022-10-18 07:52] VITALS: TEMP 97
[2022-10-18] MEDS: NYSTATIN CREAM 30 GM TUBE TP SCH ×2 (09:00→21:39)
[2022-10-18] MEDS: REMEDY ESSENTIAL ZINC PASTE 113 GM TP SCH ×2 (09:00→21:39)
[2022-10-18] MEDS: TRIAMCINOLONE ACET 0.1% CREAM 15 GM TUBE TP SCH ×2 (09:00→21:38)
[2022-10-18] MEDS: PHENYTOIN 100 MG/4 ML UDC GT SCH ×2 (09:03→21:36)
[2022-10-18] MEDS: FERROUS SULFATE 330 MG/7.5 ML UDC- FOR SA ONLY GT SCH ×2 (09:04→21:37)
[2022-10-18] MEDS: ACIDOPHILUS/BULGARICUS CHEW TAB GT SCH ×2 (09:04→21:37)
[2022-10-18] MEDS: FUROSEMIDE 10 MG/ML GT SCH (09:05)
[2022-10-18] MEDS: levETIRAcetam 500 MG/5 ML LIQUID UDC GT SCH ×2 (09:05→21:37)
[2022-10-18] MEDS: POTASSIUM CHLORIDE 40 MEQ/30 ML LIQUID UDC GT SCH (09:06)
[2022-10-18 20:00] VITALS: TEMP 97.7
[2022-10-18] MEDS: FOLIC ACID 1 MG TABLET GT SCH (21:37)
[2022-10-18] MEDS: CHOLECALCIFEROL 1,000 UNIT TABLET GT SCH (21:38)
[2022-10-18] MEDS: THIAMINE HCL 100 MG TABLET GT SCH (21:38)
[2022-10-19] MEDS: IPRATROPIUM BROMIDE 0.5 MG/2.5 ML NEBU NEB SCH ×6 (03:44→23:02)
[2022-10-19] MEDS: ALBUTEROL SULFATE 2.5 MG/3 ML NEBU NEB SCH ×6 (03:44→23:02)
[2022-10-19] MEDS: VITAL 1.5 CAL LIQUID GT PRN (04:18)
[2022-10-19] MEDS: BACLOFEN 20 MG TABLET GT SCH ×3 (05:41→22:00)
[2022-10-19] MEDS: BACLOFEN 10 MG TABLET GT SCH ×3 (05:41→22:00)
[2022-10-19] MEDS: MAGNESIUM OXIDE 400 MG TABLET GT SCH (05:41)
[2022-10-19] MEDS: OMEPRAZOLE 20 MG CAPSULE.DR GT SCH (05:41)
[2022-10-19] MEDS: METOCLOPRAMIDE HCL 5 MG TABLET GT SCH ×3 (05:41→22:00)
[2022-10-19] MEDS: MIDODRINE HCL 10 MG TABLET GT SCH ×3 (05:42→22:00)
[2022-10-19] MEDS: HYDROGEN PEROXIDE 3% 118 ML BOTTLE TP SCH ×2 (07:41→20:55)
[2022-10-19 08:00] VITALS: TEMP 98.3
[2022-10-19] MEDS: PHENYTOIN 100 MG/4 ML UDC GT SCH ×2 (09:25→21:00)
[2022-10-19] MEDS: FERROUS SULFATE 330 MG/7.5 ML UDC- FOR SA ONLY GT SCH ×2 (09:25→21:00)
[2022-10-19] MEDS: NYSTATIN CREAM 30 GM TUBE TP SCH ×2 (09:26→21:00)
[2022-10-19] MEDS: REMEDY ESSENTIAL ZINC PASTE 113 GM TP SCH ×2 (09:26→21:00)
[2022-10-19] MEDS: ACIDOPHILUS/BULGARICUS CHEW TAB GT SCH ×2 (09:26→21:00)
[2022-10-19] MEDS: POTASSIUM CHLORIDE 40 MEQ/30 ML LIQUID UDC GT SCH (09:26)
[2022-10-19] MEDS: levETIRAcetam 500 MG/5 ML LIQUID UDC GT SCH ×2 (09:26→21:00)
[2022-10-19] MEDS: FUROSEMIDE 10 MG/ML GT SCH (09:26)
[2022-10-19] MEDS: TRIAMCINOLONE ACET 0.1% CREAM 15 GM TUBE TP SCH ×2 (09:26→21:00)
[2022-10-19 20:37] VITALS: TEMP 98.8
[2022-10-19] MEDS: CHOLECALCIFEROL 1,000 UNIT TABLET GT SCH (21:00)
[2022-10-19] MEDS: FOLIC ACID 1 MG TABLET GT SCH (21:00)
[2022-10-19] MEDS: THIAMINE HCL 100 MG TABLET GT SCH (21:00)
[2022-10-20] MEDS: IPRATROPIUM BROMIDE 0.5 MG/2.5 ML NEBU NEB SCH ×6 (03:41→23:12)
[2022-10-20] MEDS: ALBUTEROL SULFATE 2.5 MG/3 ML NEBU NEB SCH ×6 (03:41→23:12)
[2022-10-20] MEDS: MIDODRINE HCL 10 MG TABLET GT SCH ×3 (06:00→21:42)
[2022-10-20] MEDS: BACLOFEN 20 MG TABLET GT SCH ×3 (06:08→21:42)
[2022-10-20] MEDS: METOCLOPRAMIDE HCL 5 MG TABLET GT SCH ×3 (06:08→21:42)
[2022-10-20] MEDS: MAGNESIUM OXIDE 400 MG TABLET GT SCH (06:08)
[2022-10-20] MEDS: BACLOFEN 10 MG TABLET GT SCH ×3 (06:08→21:42)
[2022-10-20] MEDS: OMEPRAZOLE 20 MG CAPSULE.DR GT SCH (06:08)
[2022-10-20 06:40] LABS: BASOPHILS # (AUTO) 0.1 K/UL (0.0-0.2); BASOPHILS % (AUTO) 0.7 % (0.0-2.0); EOSINOPHILS # (AUTO) 0.2 K/uL (0.0-0.7); EOSINOPHILS % (AUTO) 3.2 % (0.0-7.0); HEMOGLOBIN 10.4 g/dL (10.9-14.3); LYMPHOCYTES # (AUTO) 2.4 K/uL (0.8-4.8); LYMPHOCYTES % (AUTO) 31.9 % (20.5-51.5); MEAN CORPUSCULAR HEMOGLOBIN 32.6 uug (24.7-32.8); MEAN CORPUSCULAR HGB CONC 34 g/dL (32.3-35.6); MEAN CORPUSCULAR VOLUME 97.1 fL (75.5-95.3); MONOCYTES # (AUTO) 0.8 K/uL (0.1-1.30); MONOCYTES % (AUTO) 10.5 % (0.0-11.0); NEUTROPHILS % (AUTO) 53.7 % (38.5-71.5); PLATELET COUNT (AUTO) 410 K/uL (179-408); RED CELL DISTRIBUTION WIDTH 17.3 % (12.3-17.7); WHITE BLOOD COUNT (AUTO) 7.4 K/uL (3.8-11.8)
[2022-10-20 07:08] LABS: DIFFERENTIAL COMMENT 1
[2022-10-20 07:30] LABS: CALCIUM 8.1 mg/dL (8.5-10.1); CARBON DIOXIDE 24 mmol/L (21-32); CHLORIDE 107 mmol/L (98-107); CREATININE 0.5 mg/dL (0.6-1.3); GLUCOSE 108 mg/dL (74-106); POTASSIUM 3.7 mmol/L (3.5-5.1); SODIUM SERUM 142 mmol/L (136-145); UREA NITROGEN, BLOOD 13 mg/dL (7-18)
[2022-10-20 08:00] VITALS: TEMP 97.3
[2022-10-20] MEDS: ACIDOPHILUS/BULGARICUS CHEW TAB GT SCH ×2 (09:09→21:36)
[2022-10-20] MEDS: PHENYTOIN 100 MG/4 ML UDC GT SCH ×2 (09:09→21:36)
[2022-10-20] MEDS: FERROUS SULFATE 330 MG/7.5 ML UDC- FOR SA ONLY GT SCH ×2 (09:09→21:36)
[2022-10-20] MEDS: FUROSEMIDE 10 MG/ML GT SCH (09:10)
[2022-10-20] MEDS: levETIRAcetam 500 MG/5 ML LIQUID UDC GT SCH ×2 (09:10→21:41)
[2022-10-20] MEDS: NYSTATIN CREAM 30 GM TUBE TP SCH ×2 (09:11→21:42)
[2022-10-20] MEDS: REMEDY ESSENTIAL ZINC PASTE 113 GM TP SCH ×2 (09:11→21:42)
[2022-10-20] MEDS: POTASSIUM CHLORIDE 40 MEQ/30 ML LIQUID UDC GT SCH (09:11)
[2022-10-20] MEDS: TRIAMCINOLONE ACET 0.1% CREAM 15 GM TUBE TP SCH ×2 (09:11→21:42)
[2022-10-20] MEDS: HYDROGEN PEROXIDE 3% 118 ML BOTTLE TP SCH ×2 (09:49→19:04)
[2022-10-20 20:00] VITALS: TEMP 97.6
[2022-10-20] MEDS: FOLIC ACID 1 MG TABLET GT SCH (21:36)
[2022-10-20] MEDS: THIAMINE HCL 100 MG TABLET GT SCH (21:41)
[2022-10-20] MEDS: MIRALAX 17 GM POWD.PACK GT SCH (21:41)
[2022-10-20] MEDS: CHOLECALCIFEROL 1,000 UNIT TABLET GT SCH (21:42)
[2022-10-21] MEDS: ALBUTEROL SULFATE 2.5 MG/3 ML NEBU NEB SCH ×6 (03:26→23:46)
[2022-10-21] MEDS: IPRATROPIUM BROMIDE 0.5 MG/2.5 ML NEBU NEB SCH ×6 (03:26→23:46)
[2022-10-21] MEDS: BACLOFEN 10 MG TABLET GT SCH ×3 (05:24→21:22)
[2022-10-21] MEDS: BACLOFEN 20 MG TABLET GT SCH ×3 (05:25→21:22)
[2022-10-21] MEDS: OMEPRAZOLE 20 MG CAPSULE.DR GT SCH (05:25)
[2022-10-21] MEDS: METOCLOPRAMIDE HCL 5 MG TABLET GT SCH ×3 (05:25→21:23)
[2022-10-21] MEDS: MIDODRINE HCL 10 MG TABLET GT SCH ×3 (05:25→21:23)
[2022-10-21] MEDS: MAGNESIUM OXIDE 400 MG TABLET GT SCH (05:25)
[2022-10-21 08:00] VITALS: TEMP 97.5
[2022-10-21] MEDS: HYDROGEN PEROXIDE 3% 118 ML BOTTLE TP SCH ×2 (08:07→20:47)
[2022-10-21] MEDS: PHENYTOIN 100 MG/4 ML UDC GT SCH ×2 (08:32→21:22)
[2022-10-21] MEDS: FUROSEMIDE 10 MG/ML GT SCH (08:32)
[2022-10-21] MEDS: ACIDOPHILUS/BULGARICUS CHEW TAB GT SCH ×2 (08:32→21:22)
[2022-10-21] MEDS: FERROUS SULFATE 330 MG/7.5 ML UDC- FOR SA ONLY GT SCH ×2 (08:32→21:22)
[2022-10-21] MEDS: levETIRAcetam 500 MG/5 ML LIQUID UDC GT SCH ×2 (08:33→21:22)
[2022-10-21] MEDS: TRIAMCINOLONE ACET 0.1% CREAM 15 GM TUBE TP SCH ×2 (08:35→21:22)
[2022-10-21] MEDS: POTASSIUM CHLORIDE 40 MEQ/30 ML LIQUID UDC GT SCH (08:35)
[2022-10-21] MEDS: REMEDY ESSENTIAL ZINC PASTE 113 GM TP SCH ×2 (08:35→21:22)
[2022-10-21] MEDS: NYSTATIN CREAM 30 GM TUBE TP SCH ×2 (08:35→21:22)
[2022-10-21] MEDS: VITAL 1.5 CAL LIQUID GT PRN (18:51)
[2022-10-21 20:00] VITALS: TEMP 96
[2022-10-21] MEDS: THIAMINE HCL 100 MG TABLET GT SCH (21:22)
[2022-10-21] MEDS: FOLIC ACID 1 MG TABLET GT SCH (21:22)
[2022-10-21] MEDS: CHOLECALCIFEROL 1,000 UNIT TABLET GT SCH (21:22)
[2022-10-22] MEDS: IPRATROPIUM BROMIDE 0.5 MG/2.5 ML NEBU NEB SCH ×6 (03:36→23:32)
[2022-10-22] MEDS: ALBUTEROL SULFATE 2.5 MG/3 ML NEBU NEB SCH ×6 (03:36→23:32)
[2022-10-22] MEDS: MAGNESIUM OXIDE 400 MG TABLET GT SCH (05:12)
[2022-10-22] MEDS: BACLOFEN 10 MG TABLET GT SCH ×3 (05:12→21:57)
[2022-10-22] MEDS: BACLOFEN 20 MG TABLET GT SCH ×3 (05:12→21:57)
[2022-10-22] MEDS: MIDODRINE HCL 10 MG TABLET GT SCH ×3 (05:13→21:57)
[2022-10-22] MEDS: METOCLOPRAMIDE HCL 5 MG TABLET GT SCH ×3 (05:13→21:58)
[2022-10-22] MEDS: OMEPRAZOLE 20 MG CAPSULE.DR GT SCH (05:13)
[2022-10-22] MEDS ORDERED: VITAL AF 1.5 1,000 ML LIQUID GT PRN (06:15)
[2022-10-22 07:31] VITALS: TEMP 98.1
[2022-10-22] MEDS: HYDROGEN PEROXIDE 3% 118 ML BOTTLE TP SCH ×2 (08:05→19:07)
[2022-10-22] MEDS: PHENYTOIN 100 MG/4 ML UDC GT SCH ×2 (08:27→21:47)
[2022-10-22] MEDS: FERROUS SULFATE 330 MG/7.5 ML UDC- FOR SA ONLY GT SCH ×2 (08:30→21:47)
[2022-10-22] MEDS: ACIDOPHILUS/BULGARICUS CHEW TAB GT SCH ×2 (08:31→21:51)
[2022-10-22] MEDS: FUROSEMIDE 10 MG/ML GT SCH (08:36)
[2022-10-22] MEDS: levETIRAcetam 500 MG/5 ML LIQUID UDC GT SCH ×2 (08:37→21:52)
[2022-10-22] MEDS: POTASSIUM CHLORIDE 40 MEQ/30 ML LIQUID UDC GT SCH (08:38)
[2022-10-22] MEDS: TRIAMCINOLONE ACET 0.1% CREAM 15 GM TUBE TP SCH ×2 (08:39→21:57)
[2022-10-22] MEDS: REMEDY ESSENTIAL ZINC PASTE 113 GM TP SCH ×2 (08:40→21:57)
[2022-10-22] MEDS: NYSTATIN CREAM 30 GM TUBE TP SCH ×2 (08:40→21:57)
[2022-10-22 20:00] VITALS: TEMP 97
[2022-10-22] MEDS: FOLIC ACID 1 MG TABLET GT SCH (21:51)
[2022-10-22] MEDS: MIRALAX 17 GM POWD.PACK GT SCH (21:57)
[2022-10-22] MEDS: THIAMINE HCL 100 MG TABLET GT SCH (21:57)
[2022-10-22] MEDS: CHOLECALCIFEROL 1,000 UNIT TABLET GT SCH (21:57)
[2022-10-23] MEDS: IPRATROPIUM BROMIDE 0.5 MG/2.5 ML NEBU NEB SCH ×6 (03:26→23:12)
[2022-10-23] MEDS: ALBUTEROL SULFATE 2.5 MG/3 ML NEBU NEB SCH ×6 (03:26→23:12)
[2022-10-23] MEDS: BACLOFEN 20 MG TABLET GT SCH ×3 (05:10→21:07)
[2022-10-23] MEDS: MIDODRINE HCL 10 MG TABLET GT SCH ×3 (05:10→21:07)
[2022-10-23] MEDS: BACLOFEN 10 MG TABLET GT SCH ×3 (05:10→21:07)
[2022-10-23] MEDS: OMEPRAZOLE 20 MG CAPSULE.DR GT SCH (05:10)
[2022-10-23] MEDS: METOCLOPRAMIDE HCL 5 MG TABLET GT SCH ×3 (05:10→21:07)
[2022-10-23] MEDS: MAGNESIUM OXIDE 400 MG TABLET GT SCH (05:10)
[2022-10-23 08:10] VITALS: TEMP 98.2
[2022-10-23] MEDS: HYDROGEN PEROXIDE 3% 118 ML BOTTLE TP SCH ×2 (08:10→19:16)
[2022-10-23] MEDS: ACIDOPHILUS/BULGARICUS CHEW TAB GT SCH ×2 (09:58→21:05)
[2022-10-23] MEDS: levETIRAcetam 500 MG/5 ML LIQUID UDC GT SCH ×2 (09:58→21:05)
[2022-10-23] MEDS: TRIAMCINOLONE ACET 0.1% CREAM 15 GM TUBE TP SCH ×2 (09:58→21:07)
[2022-10-23] MEDS: FERROUS SULFATE 330 MG/7.5 ML UDC- FOR SA ONLY GT SCH ×2 (09:58→21:05)
[2022-10-23] MEDS: FUROSEMIDE 10 MG/ML GT SCH (09:58)
[2022-10-23] MEDS: REMEDY ESSENTIAL ZINC PASTE 113 GM TP SCH ×2 (09:58→21:07)
[2022-10-23] MEDS: POTASSIUM CHLORIDE 40 MEQ/30 ML LIQUID UDC GT SCH (09:58)
[2022-10-23] MEDS: NYSTATIN CREAM 30 GM TUBE TP SCH ×2 (09:58→21:07)
[2022-10-23] MEDS: PHENYTOIN 100 MG/4 ML UDC GT SCH ×2 (09:58→21:05)
[2022-10-23 20:00] VITALS: TEMP 98
[2022-10-23] MEDS: FOLIC ACID 1 MG TABLET GT SCH (21:05)
[2022-10-23] MEDS: CHOLECALCIFEROL 1,000 UNIT TABLET GT SCH (21:05)
[2022-10-23] MEDS: THIAMINE HCL 100 MG TABLET GT SCH (21:05)
[2022-10-24] MEDS: IPRATROPIUM BROMIDE 0.5 MG/2.5 ML NEBU NEB SCH ×6 (03:27→23:36)
[2022-10-24] MEDS: ALBUTEROL SULFATE 2.5 MG/3 ML NEBU NEB SCH ×6 (03:27→23:36)
[2022-10-24] MEDS: MIDODRINE HCL 10 MG TABLET GT SCH ×3 (05:18→21:32)
[2022-10-24] MEDS: BACLOFEN 20 MG TABLET GT SCH ×3 (05:18→21:32)
[2022-10-24] MEDS: OMEPRAZOLE 20 MG CAPSULE.DR GT SCH (05:18)
[2022-10-24] MEDS: METOCLOPRAMIDE HCL 5 MG TABLET GT SCH ×3 (05:18→21:32)
[2022-10-24] MEDS: MAGNESIUM OXIDE 400 MG TABLET GT SCH (05:18)
[2022-10-24] MEDS: BACLOFEN 10 MG TABLET GT SCH ×3 (05:18→21:32)
[2022-10-24] MEDS: HYDROGEN PEROXIDE 3% 118 ML BOTTLE TP SCH ×2 (07:01→19:22)
[2022-10-24 08:04] VITALS: TEMP 98.2
[2022-10-24] MEDS: PHENYTOIN 100 MG/4 ML UDC GT SCH ×2 (09:38→21:31)
[2022-10-24] MEDS: FERROUS SULFATE 330 MG/7.5 ML UDC- FOR SA ONLY GT SCH ×2 (09:39→21:31)
[2022-10-24] MEDS: ACIDOPHILUS/BULGARICUS CHEW TAB GT SCH ×2 (09:39→21:31)
[2022-10-24] MEDS: levETIRAcetam 500 MG/5 ML LIQUID UDC GT SCH ×2 (09:41→21:31)
[2022-10-24] MEDS: FUROSEMIDE 10 MG/ML GT SCH (09:41)
[2022-10-24] MEDS: POTASSIUM CHLORIDE 40 MEQ/30 ML LIQUID UDC GT SCH (09:49)
[2022-10-24] MEDS: TRIAMCINOLONE ACET 0.1% CREAM 15 GM TUBE TP SCH ×2 (09:50→21:31)
[2022-10-24] MEDS: NYSTATIN CREAM 30 GM TUBE TP SCH ×2 (09:50→21:32)
[2022-10-24] MEDS: REMEDY ESSENTIAL ZINC PASTE 113 GM TP SCH ×2 (09:50→21:32)
[2022-10-24] MEDS: VITAL AF 1.2 1,000 ML LIQUID GT PRN (17:41)
[2022-10-24 20:00] VITALS: TEMP 99.2
[2022-10-24] MEDS: FOLIC ACID 1 MG TABLET GT SCH (21:31)
[2022-10-24] MEDS: CHOLECALCIFEROL 1,000 UNIT TABLET GT SCH (21:31)
[2022-10-24] MEDS: THIAMINE HCL 100 MG TABLET GT SCH (21:31)
[2022-10-24] MEDS: MIRALAX 17 GM POWD.PACK GT SCH (21:31)
[2022-10-25] MEDS: ALBUTEROL SULFATE 2.5 MG/3 ML NEBU NEB SCH ×6 (03:47→23:32)
[2022-10-25] MEDS: IPRATROPIUM BROMIDE 0.5 MG/2.5 ML NEBU NEB SCH ×6 (03:47→23:32)
[2022-10-25] MEDS: MAGNESIUM OXIDE 400 MG TABLET GT SCH (05:40)
[2022-10-25] MEDS: BACLOFEN 10 MG TABLET GT SCH ×3 (05:40→22:43)
[2022-10-25] MEDS: BACLOFEN 20 MG TABLET GT SCH ×3 (05:40→22:43)
[2022-10-25] MEDS: MIDODRINE HCL 10 MG TABLET GT SCH ×3 (05:40→22:43)
[2022-10-25] MEDS: METOCLOPRAMIDE HCL 5 MG TABLET GT SCH ×3 (05:41→22:43)
[2022-10-25] MEDS: OMEPRAZOLE 20 MG CAPSULE.DR GT SCH (05:41)
[2022-10-25 07:36] VITALS: TEMP 98.3
[2022-10-25] MEDS: TRIAMCINOLONE ACET 0.1% CREAM 15 GM TUBE TP SCH ×2 (09:00→21:34)
[2022-10-25] MEDS: NYSTATIN CREAM 30 GM TUBE TP SCH ×2 (09:00→21:34)
[2022-10-25] MEDS: PHENYTOIN 100 MG/4 ML UDC GT SCH ×2 (09:09→21:33)
[2022-10-25] MEDS: FERROUS SULFATE 330 MG/7.5 ML UDC- FOR SA ONLY GT SCH ×2 (09:11→21:33)
[2022-10-25] MEDS: FUROSEMIDE 10 MG/ML GT SCH (09:12)
[2022-10-25] MEDS: ACIDOPHILUS/BULGARICUS CHEW TAB GT SCH ×2 (09:12→21:33)
[2022-10-25] MEDS: POTASSIUM CHLORIDE 40 MEQ/30 ML LIQUID UDC GT SCH (09:15)
[2022-10-25] MEDS: levETIRAcetam 500 MG/5 ML LIQUID UDC GT SCH ×2 (09:15→21:33)
[2022-10-25] MEDS: REMEDY ESSENTIAL ZINC PASTE 113 GM TP SCH ×2 (09:18→21:34)
[2022-10-25] MEDS: HYDROGEN PEROXIDE 3% 118 ML BOTTLE TP SCH ×2 (09:37→19:15)
[2022-10-25 10:20] VITALS: O2SAT 98
[2022-10-25 20:00] VITALS: TEMP 97.7
[2022-10-25] MEDS: FOLIC ACID 1 MG TABLET GT SCH (21:33)
[2022-10-25] MEDS: THIAMINE HCL 100 MG TABLET GT SCH (21:34)
[2022-10-25] MEDS: CHOLECALCIFEROL 1,000 UNIT TABLET GT SCH (21:34)
[2022-10-26] MEDS: VITAL AF 1.2 1,000 ML LIQUID GT PRN (02:07)
[2022-10-26] MEDS: ALBUTEROL SULFATE 2.5 MG/3 ML NEBU NEB SCH ×6 (03:07→23:48)
[2022-10-26] MEDS: IPRATROPIUM BROMIDE 0.5 MG/2.5 ML NEBU NEB SCH ×6 (03:07→23:48)
[2022-10-26] MEDS: BACLOFEN 20 MG TABLET GT SCH ×3 (05:01→21:19)
[2022-10-26] MEDS: BACLOFEN 10 MG TABLET GT SCH ×3 (05:01→21:19)
[2022-10-26] MEDS: MAGNESIUM OXIDE 400 MG TABLET GT SCH (05:01)
[2022-10-26] MEDS: METOCLOPRAMIDE HCL 5 MG TABLET GT SCH ×3 (05:01→21:19)
[2022-10-26] MEDS: MIDODRINE HCL 10 MG TABLET GT SCH ×3 (05:01→21:19)
[2022-10-26] MEDS: OMEPRAZOLE 20 MG CAPSULE.DR GT SCH (05:01)
[2022-10-26 07:57] VITALS: TEMP 97.4
[2022-10-26] MEDS: PHENYTOIN 100 MG/4 ML UDC GT SCH ×2 (08:46→20:28)
[2022-10-26] MEDS: ACIDOPHILUS/BULGARICUS CHEW TAB GT SCH ×2 (08:47→20:28)
[2022-10-26] MEDS: FUROSEMIDE 10 MG/ML GT SCH (08:47)
[2022-10-26] MEDS: FERROUS SULFATE 330 MG/7.5 ML UDC- FOR SA ONLY GT SCH ×2 (08:47→20:28)
[2022-10-26] MEDS: NYSTATIN CREAM 30 GM TUBE TP SCH ×2 (08:48→20:29)
[2022-10-26] MEDS: levETIRAcetam 500 MG/5 ML LIQUID UDC GT SCH ×2 (08:48→20:28)
[2022-10-26] MEDS: POTASSIUM CHLORIDE 40 MEQ/30 ML LIQUID UDC GT SCH (08:48)
[2022-10-26] MEDS: TRIAMCINOLONE ACET 0.1% CREAM 15 GM TUBE TP SCH ×2 (08:48→20:29)
[2022-10-26] MEDS: REMEDY ESSENTIAL ZINC PASTE 113 GM TP SCH ×2 (08:49→20:29)
[2022-10-26] MEDS: HYDROGEN PEROXIDE 3% 118 ML BOTTLE TP SCH ×2 (09:21→19:23)
[2022-10-26 20:00] VITALS: TEMP 96.5
[2022-10-26] MEDS: FOLIC ACID 1 MG TABLET GT SCH (20:28)
[2022-10-26] MEDS: THIAMINE HCL 100 MG TABLET GT SCH (20:29)
[2022-10-26] MEDS: CHOLECALCIFEROL 1,000 UNIT TABLET GT SCH (20:29)
[2022-10-27] MEDS: IPRATROPIUM BROMIDE 0.5 MG/2.5 ML NEBU NEB SCH ×6 (03:33→23:22)
[2022-10-27] MEDS: ALBUTEROL SULFATE 2.5 MG/3 ML NEBU NEB SCH ×6 (03:33→23:22)
[2022-10-27] MEDS: BACLOFEN 10 MG TABLET GT SCH ×3 (05:14→22:37)
[2022-10-27] MEDS: MAGNESIUM OXIDE 400 MG TABLET GT SCH (05:14)
[2022-10-27] MEDS: BACLOFEN 20 MG TABLET GT SCH ×3 (05:14→22:37)
[2022-10-27] MEDS: MIDODRINE HCL 10 MG TABLET GT SCH ×3 (05:15→22:40)
[2022-10-27] MEDS: METOCLOPRAMIDE HCL 5 MG TABLET GT SCH ×3 (05:15→22:40)
[2022-10-27] MEDS: OMEPRAZOLE 20 MG CAPSULE.DR GT SCH (05:15)
[2022-10-27] MEDS: HYDROGEN PEROXIDE 3% 118 ML BOTTLE TP SCH ×2 (07:29→19:15)
[2022-10-27 07:32] VITALS: TEMP 98.2
[2022-10-27] MEDS: FERROUS SULFATE 330 MG/7.5 ML UDC- FOR SA ONLY GT SCH ×2 (09:24→21:00)
[2022-10-27] MEDS: ACIDOPHILUS/BULGARICUS CHEW TAB GT SCH ×2 (09:25→21:00)
[2022-10-27] MEDS: REMEDY ESSENTIAL ZINC PASTE 113 GM TP SCH ×2 (09:26→21:00)
[2022-10-27] MEDS: FUROSEMIDE 10 MG/ML GT SCH (09:26)
[2022-10-27] MEDS: NYSTATIN CREAM 30 GM TUBE TP SCH ×2 (09:26→21:00)
[2022-10-27] MEDS: TRIAMCINOLONE ACET 0.1% CREAM 15 GM TUBE TP SCH ×2 (09:26→21:00)
[2022-10-27] MEDS: POTASSIUM CHLORIDE 40 MEQ/30 ML LIQUID UDC GT SCH (09:27)
[2022-10-27] MEDS: levETIRAcetam 500 MG/5 ML LIQUID UDC GT SCH ×2 (09:28→21:00)
[2022-10-27] MEDS: PHENYTOIN 100 MG/4 ML UDC GT SCH ×2 (09:29→21:00)
[2022-10-27 20:00] VITALS: TEMP 96
[2022-10-27] MEDS: FOLIC ACID 1 MG TABLET GT SCH (21:00)
[2022-10-27] MEDS: MIRALAX 17 GM POWD.PACK GT SCH (21:00)
[2022-10-27] MEDS: CHOLECALCIFEROL 1,000 UNIT TABLET GT SCH (21:00)
[2022-10-27] MEDS: THIAMINE HCL 100 MG TABLET GT SCH (21:00)
[2022-10-28] MEDS: IPRATROPIUM BROMIDE 0.5 MG/2.5 ML NEBU NEB SCH ×6 (03:52→23:36)
[2022-10-28] MEDS: ALBUTEROL SULFATE 2.5 MG/3 ML NEBU NEB SCH ×6 (03:52→23:36)
[2022-10-28] MEDS: MIDODRINE HCL 10 MG TABLET GT SCH ×3 (06:19→21:15)
[2022-10-28] MEDS: BACLOFEN 20 MG TABLET GT SCH ×3 (06:19→21:15)
[2022-10-28] MEDS: METOCLOPRAMIDE HCL 5 MG TABLET GT SCH ×3 (06:19→21:15)
[2022-10-28] MEDS: OMEPRAZOLE 20 MG CAPSULE.DR GT SCH (06:19)
[2022-10-28] MEDS: BACLOFEN 10 MG TABLET GT SCH ×3 (06:19→21:15)
[2022-10-28] MEDS: MAGNESIUM OXIDE 400 MG TABLET GT SCH (06:19)
[2022-10-28] MEDS: HYDROGEN PEROXIDE 3% 118 ML BOTTLE TP SCH ×2 (08:50→19:15)
[2022-10-28] MEDS: TRIAMCINOLONE ACET 0.1% CREAM 15 GM TUBE TP SCH ×2 (09:00→21:12)
[2022-10-28] MEDS: levETIRAcetam 500 MG/5 ML LIQUID UDC GT SCH ×2 (09:00→21:11)
[2022-10-28] MEDS: REMEDY ESSENTIAL ZINC PASTE 113 GM TP SCH ×2 (09:00→21:12)
[2022-10-28] MEDS: POTASSIUM CHLORIDE 40 MEQ/30 ML LIQUID UDC GT SCH (09:00)
[2022-10-28] MEDS: FERROUS SULFATE 330 MG/7.5 ML UDC- FOR SA ONLY GT SCH ×2 (09:00→21:08)
[2022-10-28] MEDS: PHENYTOIN 100 MG/4 ML UDC GT SCH ×2 (09:00→21:07)
[2022-10-28] MEDS: FUROSEMIDE 10 MG/ML GT SCH (09:00)
[2022-10-28] MEDS: NYSTATIN CREAM 30 GM TUBE TP SCH ×2 (09:00→21:12)
[2022-10-28] MEDS: ACIDOPHILUS/BULGARICUS CHEW TAB GT SCH ×2 (09:00→21:09)
[2022-10-28 09:25] VITALS: TEMP 96
[2022-10-28 20:39] VITALS: TEMP 96
[2022-10-28] MEDS: FOLIC ACID 1 MG TABLET GT SCH (21:09)
[2022-10-28] MEDS: CHOLECALCIFEROL 1,000 UNIT TABLET GT SCH (21:11)
[2022-10-28] MEDS: THIAMINE HCL 100 MG TABLET GT SCH (21:11)
[2022-10-29] MEDS: VITAL AF 1.2 1,000 ML LIQUID GT PRN (01:02)
[2022-10-29] MEDS: IPRATROPIUM BROMIDE 0.5 MG/2.5 ML NEBU NEB SCH ×6 (03:18→23:25)
[2022-10-29] MEDS: ALBUTEROL SULFATE 2.5 MG/3 ML NEBU NEB SCH ×6 (03:18→23:25)
[2022-10-29] MEDS: BACLOFEN 20 MG TABLET GT SCH ×3 (05:18→21:25)
[2022-10-29] MEDS: BACLOFEN 10 MG TABLET GT SCH ×3 (05:18→21:25)
[2022-10-29] MEDS: MAGNESIUM OXIDE 400 MG TABLET GT SCH (05:18)
[2022-10-29] MEDS: MIDODRINE HCL 10 MG TABLET GT SCH ×3 (05:19→21:26)
[2022-10-29] MEDS: OMEPRAZOLE 20 MG CAPSULE.DR GT SCH (05:19)
[2022-10-29] MEDS: METOCLOPRAMIDE HCL 5 MG TABLET GT SCH ×3 (05:19→21:26)
[2022-10-29] MEDS: HYDROGEN PEROXIDE 3% 118 ML BOTTLE TP SCH ×2 (07:39→19:15)
[2022-10-29] MEDS: FUROSEMIDE 10 MG/ML GT SCH (09:31)
[2022-10-29] MEDS: POTASSIUM CHLORIDE 40 MEQ/30 ML LIQUID UDC GT SCH (09:31)
[2022-10-29] MEDS: PHENYTOIN 100 MG/4 ML UDC GT SCH ×2 (09:31→21:24)
[2022-10-29] MEDS: ACIDOPHILUS/BULGARICUS CHEW TAB GT SCH ×2 (09:31→21:24)
[2022-10-29] MEDS: FERROUS SULFATE 330 MG/7.5 ML UDC- FOR SA ONLY GT SCH ×2 (09:31→21:24)
[2022-10-29] MEDS: levETIRAcetam 500 MG/5 ML LIQUID UDC GT SCH ×2 (09:31→21:25)
[2022-10-29] MEDS: NYSTATIN CREAM 30 GM TUBE TP SCH ×2 (09:32→21:25)
[2022-10-29] MEDS: TRIAMCINOLONE ACET 0.1% CREAM 15 GM TUBE TP SCH ×2 (09:32→21:25)
[2022-10-29] MEDS: REMEDY ESSENTIAL ZINC PASTE 113 GM TP SCH ×2 (09:32→21:25)
[2022-10-29 20:00] VITALS: TEMP 97.6
[2022-10-29] MEDS: FOLIC ACID 1 MG TABLET GT SCH (21:24)
[2022-10-29] MEDS: THIAMINE HCL 100 MG TABLET GT SCH (21:25)
[2022-10-29] MEDS: CHOLECALCIFEROL 1,000 UNIT TABLET GT SCH (21:25)
[2022-10-29] MEDS: MIRALAX 17 GM POWD.PACK GT SCH (21:25)
[2022-10-30] MEDS: ALBUTEROL SULFATE 2.5 MG/3 ML NEBU NEB SCH ×6 (03:30→23:26)
[2022-10-30] MEDS: IPRATROPIUM BROMIDE 0.5 MG/2.5 ML NEBU NEB SCH ×6 (03:30→23:26)
[2022-10-30] MEDS: BACLOFEN 20 MG TABLET GT SCH ×3 (05:47→21:01)
[2022-10-30] MEDS: MAGNESIUM OXIDE 400 MG TABLET GT SCH (05:47)
[2022-10-30] MEDS: BACLOFEN 10 MG TABLET GT SCH ×3 (05:47→21:01)
[2022-10-30] MEDS: MIDODRINE HCL 10 MG TABLET GT SCH ×3 (05:48→21:02)
[2022-10-30] MEDS: METOCLOPRAMIDE HCL 5 MG TABLET GT SCH ×3 (05:48→21:02)
[2022-10-30] MEDS: OMEPRAZOLE 20 MG CAPSULE.DR GT SCH (05:48)
[2022-10-30] MEDS: HYDROGEN PEROXIDE 3% 118 ML BOTTLE TP SCH ×2 (07:59→19:17)
[2022-10-30 08:00] VITALS: TEMP 97.6
[2022-10-30] MEDS: FERROUS SULFATE 330 MG/7.5 ML UDC- FOR SA ONLY GT SCH ×2 (08:04→21:01)
[2022-10-30] MEDS: PHENYTOIN 100 MG/4 ML UDC GT SCH ×2 (08:04→21:01)
[2022-10-30] MEDS: levETIRAcetam 500 MG/5 ML LIQUID UDC GT SCH ×2 (08:05→21:01)
[2022-10-30] MEDS: FUROSEMIDE 10 MG/ML GT SCH (08:05)
[2022-10-30] MEDS: POTASSIUM CHLORIDE 40 MEQ/30 ML LIQUID UDC GT SCH (08:05)
[2022-10-30] MEDS: ACIDOPHILUS/BULGARICUS CHEW TAB GT SCH ×2 (08:05→21:01)
[2022-10-30] MEDS: TRIAMCINOLONE ACET 0.1% CREAM 15 GM TUBE TP SCH ×2 (08:06→21:01)
[2022-10-30] MEDS: NYSTATIN CREAM 30 GM TUBE TP SCH ×2 (08:06→21:01)
[2022-10-30] MEDS: REMEDY ESSENTIAL ZINC PASTE 113 GM TP SCH ×2 (08:06→21:01)
[2022-10-30] MEDS: VITAL AF 1.2 1,000 ML LIQUID GT PRN (13:38)
[2022-10-30 20:21] VITALS: TEMP 98
[2022-10-30] MEDS: CHOLECALCIFEROL 1,000 UNIT TABLET GT SCH (21:01)
[2022-10-30] MEDS: THIAMINE HCL 100 MG TABLET GT SCH (21:01)
[2022-10-30] MEDS: FOLIC ACID 1 MG TABLET GT SCH (21:01)
[2022-10-31] MEDS: IPRATROPIUM BROMIDE 0.5 MG/2.5 ML NEBU NEB SCH ×6 (03:11→23:15)
[2022-10-31] MEDS: ALBUTEROL SULFATE 2.5 MG/3 ML NEBU NEB SCH ×6 (03:11→23:15)
[2022-10-31] MEDS: BACLOFEN 10 MG TABLET GT SCH ×3 (06:03→21:02)
[2022-10-31] MEDS: OMEPRAZOLE 20 MG CAPSULE.DR GT SCH (06:03)
[2022-10-31] MEDS: BACLOFEN 20 MG TABLET GT SCH ×3 (06:03→21:02)
[2022-10-31] MEDS: MAGNESIUM OXIDE 400 MG TABLET GT SCH (06:03)
[2022-10-31] MEDS: MIDODRINE HCL 10 MG TABLET GT SCH ×3 (06:03→21:03)
[2022-10-31] MEDS: METOCLOPRAMIDE HCL 5 MG TABLET GT SCH ×3 (06:04→21:03)
[2022-10-31 07:36] VITALS: TEMP 97
[2022-10-31] MEDS: FUROSEMIDE 10 MG/ML GT SCH (09:16)
[2022-10-31] MEDS: ACIDOPHILUS/BULGARICUS CHEW TAB GT SCH ×2 (09:16→21:02)
[2022-10-31] MEDS: POTASSIUM CHLORIDE 40 MEQ/30 ML LIQUID UDC GT SCH (09:16)
[2022-10-31] MEDS: levETIRAcetam 500 MG/5 ML LIQUID UDC GT SCH ×2 (09:16→21:02)
[2022-10-31] MEDS: HYDROGEN PEROXIDE 3% 118 ML BOTTLE TP SCH ×2 (09:16→19:59)
[2022-10-31] MEDS: PHENYTOIN 100 MG/4 ML UDC GT SCH ×2 (09:16→21:02)
[2022-10-31] MEDS: FERROUS SULFATE 330 MG/7.5 ML UDC- FOR SA ONLY GT SCH ×2 (09:16→21:02)
[2022-10-31] MEDS: REMEDY ESSENTIAL ZINC PASTE 113 GM TP SCH ×2 (09:17→21:02)
[2022-10-31] MEDS: NYSTATIN CREAM 30 GM TUBE TP SCH (09:17)
[2022-10-31] MEDS: TRIAMCINOLONE ACET 0.1% CREAM 15 GM TUBE TP SCH (09:17)
[2022-10-31 20:00] VITALS: TEMP 94.4
[2022-10-31] MEDS: FOLIC ACID 1 MG TABLET GT SCH (21:02)
[2022-10-31] MEDS: CHOLECALCIFEROL 1,000 UNIT TABLET GT SCH (21:02)
[2022-10-31] MEDS: THIAMINE HCL 100 MG TABLET GT SCH (21:02)
[2022-10-31] MEDS: MIRALAX 17 GM POWD.PACK GT SCH (21:02)
[2022-10-31 22:30] VITALS: TEMP 97.4
[2022-11-01] MEDS: VITAL AF 1.2 1,000 ML LIQUID GT PRN (01:59)
[2022-11-01 03:00] VITALS: TEMP 98.2
[2022-11-01] MEDS: IPRATROPIUM BROMIDE 0.5 MG/2.5 ML NEBU NEB SCH ×6 (03:31→23:00)
[2022-11-01] MEDS: ALBUTEROL SULFATE 2.5 MG/3 ML NEBU NEB SCH ×6 (03:31→23:00)
[2022-11-01] MEDS: BACLOFEN 10 MG TABLET GT SCH ×3 (05:47→21:03)
[2022-11-01] MEDS: MAGNESIUM OXIDE 400 MG TABLET GT SCH (05:47)
[2022-11-01] MEDS: OMEPRAZOLE 20 MG CAPSULE.DR GT SCH (05:47)
[2022-11-01] MEDS: BACLOFEN 20 MG TABLET GT SCH ×3 (05:47→21:03)
[2022-11-01] MEDS: MIDODRINE HCL 10 MG TABLET GT SCH ×3 (05:47→21:03)
[2022-11-01] MEDS: METOCLOPRAMIDE HCL 5 MG TABLET GT SCH ×3 (05:48→21:03)
[2022-11-01 06:30] VITALS: TEMP 98.9
[2022-11-01 07:47] VITALS: TEMP 97
[2022-11-01] MEDS: ACIDOPHILUS/BULGARICUS CHEW TAB GT SCH ×2 (09:00→20:58)
[2022-11-01] MEDS: POTASSIUM CHLORIDE 40 MEQ/30 ML LIQUID UDC GT SCH (09:00)
[2022-11-01] MEDS: levETIRAcetam 500 MG/5 ML LIQUID UDC GT SCH ×2 (09:00→21:02)
[2022-11-01] MEDS: REMEDY ESSENTIAL ZINC PASTE 113 GM TP SCH ×2 (09:00→21:03)
[2022-11-01] MEDS: HYDROGEN PEROXIDE 3% 118 ML BOTTLE TP SCH ×2 (09:00→20:58)
[2022-11-01] MEDS: FUROSEMIDE 10 MG/ML GT SCH (09:00)
[2022-11-01] MEDS: FERROUS SULFATE 330 MG/7.5 ML UDC- FOR SA ONLY GT SCH ×2 (09:58→20:57)
[2022-11-01] MEDS: PHENYTOIN 100 MG/4 ML UDC GT SCH ×2 (09:58→20:57)
[2022-11-01 20:00] VITALS: TEMP 98.6
[2022-11-01] MEDS: FOLIC ACID 1 MG TABLET GT SCH (20:58)
[2022-11-01] MEDS: THIAMINE HCL 100 MG TABLET GT SCH (21:02)
[2022-11-01] MEDS: CHOLECALCIFEROL 1,000 UNIT TABLET GT SCH (21:02)
[2022-11-02] MEDS: ALBUTEROL SULFATE 2.5 MG/3 ML NEBU NEB SCH ×5 (03:01→19:49)
[2022-11-02] MEDS: IPRATROPIUM BROMIDE 0.5 MG/2.5 ML NEBU NEB SCH ×5 (03:01→19:50)
[2022-11-02] MEDS: BACLOFEN 10 MG TABLET GT SCH ×3 (05:17→21:47)
[2022-11-02] MEDS: BACLOFEN 20 MG TABLET GT SCH ×3 (05:17→21:47)
[2022-11-02] MEDS: OMEPRAZOLE 20 MG CAPSULE.DR GT SCH (05:18)
[2022-11-02] MEDS: MAGNESIUM OXIDE 400 MG TABLET GT SCH (05:18)
[2022-11-02] MEDS: METOCLOPRAMIDE HCL 5 MG TABLET GT SCH ×3 (05:18→21:47)
[2022-11-02] MEDS: MIDODRINE HCL 10 MG TABLET GT SCH ×3 (05:41→21:47)
[2022-11-02] MEDS: HYDROGEN PEROXIDE 3% 118 ML BOTTLE TP SCH ×2 (07:48→19:50)
[2022-11-02 08:00] VITALS: TEMP 97.8
[2022-11-02] MEDS: FERROUS SULFATE 330 MG/7.5 ML UDC- FOR SA ONLY GT SCH ×2 (08:37→21:45)
[2022-11-02] MEDS: PHENYTOIN 100 MG/4 ML UDC GT SCH ×2 (08:37→21:45)
[2022-11-02] MEDS: ACIDOPHILUS/BULGARICUS CHEW TAB GT SCH ×2 (08:37→21:45)
[2022-11-02] MEDS: FUROSEMIDE 10 MG/ML GT SCH (08:38)
[2022-11-02] MEDS: levETIRAcetam 500 MG/5 ML LIQUID UDC GT SCH ×2 (08:40→21:46)
[2022-11-02] MEDS: REMEDY ESSENTIAL ZINC PASTE 113 GM TP SCH ×2 (08:42→21:47)
[2022-11-02] MEDS: POTASSIUM CHLORIDE 40 MEQ/30 ML LIQUID UDC GT SCH (08:42)
[2022-11-02] MEDS: VITAL AF 1.2 1,000 ML LIQUID GT PRN (15:29)
[2022-11-02 20:58] VITALS: TEMP 97.2
[2022-11-02] MEDS: FOLIC ACID 1 MG TABLET GT SCH (21:46)
[2022-11-02] MEDS: THIAMINE HCL 100 MG TABLET GT SCH (21:46)
[2022-11-02] MEDS: CHOLECALCIFEROL 1,000 UNIT TABLET GT SCH (21:47)
[2022-11-03] MEDS: IPRATROPIUM BROMIDE 0.5 MG/2.5 ML NEBU NEB SCH ×6 (00:04→19:10)
[2022-11-03] MEDS: ALBUTEROL SULFATE 2.5 MG/3 ML NEBU NEB SCH ×6 (00:05→19:10)
[2022-11-03] MEDS: BACLOFEN 20 MG TABLET GT SCH ×3 (05:15→21:46)
[2022-11-03] MEDS: MAGNESIUM OXIDE 400 MG TABLET GT SCH (05:15)
[2022-11-03] MEDS: BACLOFEN 10 MG TABLET GT SCH ×3 (05:15→21:46)
[2022-11-03] MEDS: OMEPRAZOLE 20 MG CAPSULE.DR GT SCH (05:16)
[2022-11-03] MEDS: METOCLOPRAMIDE HCL 5 MG TABLET GT SCH ×3 (05:16→21:46)
[2022-11-03] MEDS: MIDODRINE HCL 10 MG TABLET GT SCH ×3 (05:16→21:46)
[2022-11-03 08:00] VITALS: TEMP 97.7
[2022-11-03] MEDS: HYDROGEN PEROXIDE 3% 118 ML BOTTLE TP SCH ×2 (08:02→21:04)
[2022-11-03] MEDS: PHENYTOIN 100 MG/4 ML UDC GT SCH ×2 (09:12→20:47)
[2022-11-03] MEDS: FERROUS SULFATE 330 MG/7.5 ML UDC- FOR SA ONLY GT SCH ×2 (09:16→20:49)
[2022-11-03] MEDS: ACIDOPHILUS/BULGARICUS CHEW TAB GT SCH ×2 (09:16→20:49)
[2022-11-03] MEDS: REMEDY ESSENTIAL ZINC PASTE 113 GM TP SCH ×2 (09:17→20:50)
[2022-11-03] MEDS: POTASSIUM CHLORIDE 40 MEQ/30 ML LIQUID UDC GT SCH (09:17)
[2022-11-03] MEDS: FUROSEMIDE 10 MG/ML GT SCH (09:17)
[2022-11-03] MEDS: levETIRAcetam 500 MG/5 ML LIQUID UDC GT SCH ×2 (09:17→20:49)
[2022-11-03 19:57] VITALS: TEMP 97.6
[2022-11-03] MEDS: FOLIC ACID 1 MG TABLET GT SCH (20:49)
[2022-11-03] MEDS: MIRALAX 17 GM POWD.PACK GT SCH (20:50)
[2022-11-03] MEDS: THIAMINE HCL 100 MG TABLET GT SCH (20:50)
[2022-11-03] MEDS: CHOLECALCIFEROL 1,000 UNIT TABLET GT SCH (20:50)
[2022-11-04] MEDS: ALBUTEROL SULFATE 2.5 MG/3 ML NEBU NEB SCH ×7 (00:27→23:33)
[2022-11-04] MEDS: IPRATROPIUM BROMIDE 0.5 MG/2.5 ML NEBU NEB SCH ×7 (00:27→23:33)
[2022-11-04] MEDS: METOCLOPRAMIDE HCL 5 MG TABLET GT SCH ×3 (05:21→21:06)
[2022-11-04] MEDS: MIDODRINE HCL 10 MG TABLET GT SCH ×3 (05:21→21:06)
[2022-11-04] MEDS: MAGNESIUM OXIDE 400 MG TABLET GT SCH (05:21)
[2022-11-04] MEDS: OMEPRAZOLE 20 MG CAPSULE.DR GT SCH (05:21)
[2022-11-04] MEDS: BACLOFEN 10 MG TABLET GT SCH ×3 (05:21→21:05)
[2022-11-04] MEDS: BACLOFEN 20 MG TABLET GT SCH ×3 (05:21→21:05)
[2022-11-04 08:00] VITALS: TEMP 97.1
[2022-11-04] MEDS: HYDROGEN PEROXIDE 3% 118 ML BOTTLE TP SCH ×2 (09:16→19:18)
[2022-11-04] MEDS: FERROUS SULFATE 330 MG/7.5 ML UDC- FOR SA ONLY GT SCH ×2 (09:37→21:02)
[2022-11-04] MEDS: PHENYTOIN 100 MG/4 ML UDC GT SCH ×2 (09:37→21:01)
[2022-11-04] MEDS: ACIDOPHILUS/BULGARICUS CHEW TAB GT SCH ×2 (09:38→21:03)
[2022-11-04] MEDS: FUROSEMIDE 10 MG/ML GT SCH (09:38)
[2022-11-04] MEDS: levETIRAcetam 500 MG/5 ML LIQUID UDC GT SCH ×2 (09:38→21:05)
[2022-11-04] MEDS: POTASSIUM CHLORIDE 40 MEQ/30 ML LIQUID UDC GT SCH (09:39)
[2022-11-04] MEDS: REMEDY ESSENTIAL ZINC PASTE 113 GM TP SCH ×2 (09:39→21:05)
[2022-11-04 19:57] VITALS: TEMP 97.4
[2022-11-04] MEDS: FOLIC ACID 1 MG TABLET GT SCH (21:03)
[2022-11-04] MEDS: THIAMINE HCL 100 MG TABLET GT SCH (21:05)
[2022-11-04] MEDS: CHOLECALCIFEROL 1,000 UNIT TABLET GT SCH (21:05)
[2022-11-05] MEDS: IPRATROPIUM BROMIDE 0.5 MG/2.5 ML NEBU NEB SCH ×6 (03:26→23:40)
[2022-11-05] MEDS: ALBUTEROL SULFATE 2.5 MG/3 ML NEBU NEB SCH ×6 (03:26→23:40)
[2022-11-05] MEDS: MAGNESIUM OXIDE 400 MG TABLET GT SCH (05:19)
[2022-11-05] MEDS: BACLOFEN 20 MG TABLET GT SCH ×3 (05:19→21:10)
[2022-11-05] MEDS: BACLOFEN 10 MG TABLET GT SCH ×3 (05:19→21:10)
[2022-11-05] MEDS: OMEPRAZOLE 20 MG CAPSULE.DR GT SCH (05:20)
[2022-11-05] MEDS: MIDODRINE HCL 10 MG TABLET GT SCH ×3 (05:20→21:11)
[2022-11-05] MEDS: METOCLOPRAMIDE HCL 5 MG TABLET GT SCH ×3 (05:20→21:13)
[2022-11-05 07:44] VITALS: TEMP 96.3
[2022-11-05] MEDS: HYDROGEN PEROXIDE 3% 118 ML BOTTLE TP SCH ×2 (08:03→19:20)
[2022-11-05] MEDS: FERROUS SULFATE 330 MG/7.5 ML UDC- FOR SA ONLY GT SCH ×2 (09:24→21:08)
[2022-11-05] MEDS: PHENYTOIN 100 MG/4 ML UDC GT SCH ×2 (09:24→21:06)
[2022-11-05] MEDS: ACIDOPHILUS/BULGARICUS CHEW TAB GT SCH ×2 (09:25→21:08)
[2022-11-05] MEDS: FUROSEMIDE 10 MG/ML GT SCH (09:26)
[2022-11-05] MEDS: POTASSIUM CHLORIDE 40 MEQ/30 ML LIQUID UDC GT SCH (09:26)
[2022-11-05] MEDS: levETIRAcetam 500 MG/5 ML LIQUID UDC GT SCH ×2 (09:26→21:09)
[2022-11-05] MEDS: REMEDY ESSENTIAL ZINC PASTE 113 GM TP SCH ×2 (09:27→21:10)
[2022-11-05] MEDS: VITAL AF 1.2 1,000 ML LIQUID GT PRN (17:10)
[2022-11-05] MEDS: FOLIC ACID 1 MG TABLET GT SCH (21:08)
[2022-11-05] MEDS: MIRALAX 17 GM POWD.PACK GT SCH (21:09)
[2022-11-05] MEDS: THIAMINE HCL 100 MG TABLET GT SCH (21:10)
[2022-11-05] MEDS: CHOLECALCIFEROL 1,000 UNIT TABLET GT SCH (21:10)
[2022-11-05 21:39] VITALS: TEMP 96.4
[2022-11-06] MEDS: ALBUTEROL SULFATE 2.5 MG/3 ML NEBU NEB SCH ×6 (03:03→23:13)
[2022-11-06] MEDS: IPRATROPIUM BROMIDE 0.5 MG/2.5 ML NEBU NEB SCH ×6 (03:03→23:13)
[2022-11-06] MEDS: MIDODRINE HCL 10 MG TABLET GT SCH ×3 (05:52→21:00)
[2022-11-06] MEDS: METOCLOPRAMIDE HCL 5 MG TABLET GT SCH ×3 (05:52→21:04)
[2022-11-06] MEDS: MAGNESIUM OXIDE 400 MG TABLET GT SCH (05:52)
[2022-11-06] MEDS: BACLOFEN 20 MG TABLET GT SCH ×3 (05:52→21:00)
[2022-11-06] MEDS: OMEPRAZOLE 20 MG CAPSULE.DR GT SCH (05:52)
[2022-11-06] MEDS: BACLOFEN 10 MG TABLET GT SCH ×3 (05:52→21:00)
[2022-11-06] MEDS: HYDROGEN PEROXIDE 3% 118 ML BOTTLE TP SCH ×2 (07:39→19:15)
[2022-11-06 07:56] VITALS: TEMP 96.9
[2022-11-06] MEDS: REMEDY ESSENTIAL ZINC PASTE 113 GM TP SCH ×2 (09:00→20:57)
[2022-11-06] MEDS: FERROUS SULFATE 330 MG/7.5 ML UDC- FOR SA ONLY GT SCH ×2 (09:00→20:54)
[2022-11-06] MEDS: ACIDOPHILUS/BULGARICUS CHEW TAB GT SCH ×2 (09:00→20:55)
[2022-11-06] MEDS: FUROSEMIDE 10 MG/ML GT SCH (09:00)
[2022-11-06] MEDS: POTASSIUM CHLORIDE 40 MEQ/30 ML LIQUID UDC GT SCH (09:00)
[2022-11-06] MEDS: PHENYTOIN 100 MG/4 ML UDC GT SCH ×2 (09:00→20:54)
[2022-11-06] MEDS: levETIRAcetam 500 MG/5 ML LIQUID UDC GT SCH ×2 (09:00→20:56)
[2022-11-06 20:00] VITALS: TEMP 98.3
[2022-11-06] MEDS: FOLIC ACID 1 MG TABLET GT SCH (20:56)
[2022-11-06] MEDS: CHOLECALCIFEROL 1,000 UNIT TABLET GT SCH (20:57)
[2022-11-06] MEDS: THIAMINE HCL 100 MG TABLET GT SCH (20:57)
[2022-11-07] MEDS: IPRATROPIUM BROMIDE 0.5 MG/2.5 ML NEBU NEB SCH ×6 (03:32→23:29)
[2022-11-07] MEDS: ALBUTEROL SULFATE 2.5 MG/3 ML NEBU NEB SCH ×6 (03:32→23:29)
[2022-11-07] MEDS: VITAL AF 1.2 1,000 ML LIQUID GT PRN (04:46)
[2022-11-07] MEDS: MAGNESIUM OXIDE 400 MG TABLET GT SCH (05:42)
[2022-11-07] MEDS: OMEPRAZOLE 20 MG CAPSULE.DR GT SCH (05:42)
[2022-11-07] MEDS: BACLOFEN 20 MG TABLET GT SCH ×3 (05:42→22:19)
[2022-11-07] MEDS: MIDODRINE HCL 10 MG TABLET GT SCH ×3 (05:42→22:20)
[2022-11-07] MEDS: BACLOFEN 10 MG TABLET GT SCH ×3 (05:42→22:19)
[2022-11-07] MEDS: METOCLOPRAMIDE HCL 5 MG TABLET GT SCH ×3 (05:42→22:20)
[2022-11-07] MEDS: HYDROGEN PEROXIDE 3% 118 ML BOTTLE TP SCH ×2 (07:13→19:20)
[2022-11-07 08:07] VITALS: TEMP 96.8
[2022-11-07] MEDS: FERROUS SULFATE 330 MG/7.5 ML UDC- FOR SA ONLY GT SCH ×2 (08:35→20:46)
[2022-11-07] MEDS: PHENYTOIN 100 MG/4 ML UDC GT SCH ×2 (08:35→20:45)
[2022-11-07] MEDS: ACIDOPHILUS/BULGARICUS CHEW TAB GT SCH ×2 (08:36→20:46)
[2022-11-07] MEDS: levETIRAcetam 500 MG/5 ML LIQUID UDC GT SCH ×2 (08:38→20:46)
[2022-11-07] MEDS: FUROSEMIDE 10 MG/ML GT SCH (08:38)
[2022-11-07] MEDS: POTASSIUM CHLORIDE 40 MEQ/30 ML LIQUID UDC GT SCH (08:39)
[2022-11-07] MEDS: REMEDY ESSENTIAL ZINC PASTE 113 GM TP SCH ×2 (08:40→20:49)
[2022-11-07 20:00] VITALS: TEMP 97.4
[2022-11-07] MEDS: FOLIC ACID 1 MG TABLET GT SCH (20:46)
[2022-11-07] MEDS: MIRALAX 17 GM POWD.PACK GT SCH (20:48)
[2022-11-07] MEDS: CHOLECALCIFEROL 1,000 UNIT TABLET GT SCH (20:49)
[2022-11-07] MEDS: THIAMINE HCL 100 MG TABLET GT SCH (20:49)
[2022-11-08] MEDS: IPRATROPIUM BROMIDE 0.5 MG/2.5 ML NEBU NEB SCH ×6 (03:43→23:22)
[2022-11-08] MEDS: ALBUTEROL SULFATE 2.5 MG/3 ML NEBU NEB SCH ×6 (03:43→23:22)
[2022-11-08] MEDS: MIDODRINE HCL 10 MG TABLET GT SCH ×3 (05:37→22:08)
[2022-11-08] MEDS: BACLOFEN 10 MG TABLET GT SCH ×3 (05:37→21:09)
[2022-11-08] MEDS: BACLOFEN 20 MG TABLET GT SCH ×3 (05:37→21:09)
[2022-11-08] MEDS: OMEPRAZOLE 20 MG CAPSULE.DR GT SCH (05:37)
[2022-11-08] MEDS: MAGNESIUM OXIDE 400 MG TABLET GT SCH (05:37)
[2022-11-08] MEDS: METOCLOPRAMIDE HCL 5 MG TABLET GT SCH ×3 (05:37→21:09)
[2022-11-08 08:00] VITALS: TEMP 97
[2022-11-08] MEDS: HYDROGEN PEROXIDE 3% 118 ML BOTTLE TP SCH ×2 (08:10→21:09)
[2022-11-08] MEDS: FERROUS SULFATE 330 MG/7.5 ML UDC- FOR SA ONLY GT SCH ×2 (08:38→21:08)
[2022-11-08] MEDS: FUROSEMIDE 10 MG/ML GT SCH (08:38)
[2022-11-08] MEDS: PHENYTOIN 100 MG/4 ML UDC GT SCH ×2 (08:38→21:08)
[2022-11-08] MEDS: ACIDOPHILUS/BULGARICUS CHEW TAB GT SCH ×2 (08:38→21:08)
[2022-11-08] MEDS: levETIRAcetam 500 MG/5 ML LIQUID UDC GT SCH ×2 (08:51→21:09)
[2022-11-08] MEDS: POTASSIUM CHLORIDE 40 MEQ/30 ML LIQUID UDC GT SCH (08:53)
[2022-11-08] MEDS: REMEDY ESSENTIAL ZINC PASTE 113 GM TP SCH ×2 (08:53→21:09)
[2022-11-08] MEDS: VITAL AF 1.2 1,000 ML LIQUID GT PRN (19:09)
[2022-11-08 20:00] VITALS: TEMP 96.4
[2022-11-08] MEDS: FOLIC ACID 1 MG TABLET GT SCH (21:08)
[2022-11-08] MEDS: THIAMINE HCL 100 MG TABLET GT SCH (21:09)
[2022-11-08] MEDS: CHOLECALCIFEROL 1,000 UNIT TABLET GT SCH (21:09)
[2022-11-09] MEDS: IPRATROPIUM BROMIDE 0.5 MG/2.5 ML NEBU NEB SCH ×6 (03:32→23:20)
[2022-11-09] MEDS: ALBUTEROL SULFATE 2.5 MG/3 ML NEBU NEB SCH ×6 (03:32→23:20)
[2022-11-09] MEDS: BACLOFEN 10 MG TABLET GT SCH ×3 (06:17→21:21)
[2022-11-09] MEDS: OMEPRAZOLE 20 MG CAPSULE.DR GT SCH (06:18)
[2022-11-09] MEDS: METOCLOPRAMIDE HCL 5 MG TABLET GT SCH ×3 (06:18→21:21)
[2022-11-09] MEDS: MIDODRINE HCL 10 MG TABLET GT SCH ×3 (06:18→21:21)
[2022-11-09] MEDS: BACLOFEN 20 MG TABLET GT SCH ×3 (06:18→21:21)
[2022-11-09] MEDS: MAGNESIUM OXIDE 400 MG TABLET GT SCH (06:18)
[2022-11-09 07:31] VITALS: TEMP 97
[2022-11-09] MEDS: HYDROGEN PEROXIDE 3% 118 ML BOTTLE TP SCH ×2 (08:18→19:15)
[2022-11-09] MEDS: FERROUS SULFATE 330 MG/7.5 ML UDC- FOR SA ONLY GT SCH ×2 (08:36→20:37)
[2022-11-09] MEDS: PHENYTOIN 100 MG/4 ML UDC GT SCH ×2 (08:36→20:37)
[2022-11-09] MEDS: ACIDOPHILUS/BULGARICUS CHEW TAB GT SCH ×2 (08:37→20:37)
[2022-11-09] MEDS: FUROSEMIDE 10 MG/ML GT SCH (08:38)
[2022-11-09] MEDS: REMEDY ESSENTIAL ZINC PASTE 113 GM TP SCH ×2 (08:39→20:39)
[2022-11-09] MEDS: levETIRAcetam 500 MG/5 ML LIQUID UDC GT SCH ×2 (08:39→20:38)
[2022-11-09] MEDS: POTASSIUM CHLORIDE 40 MEQ/30 ML LIQUID UDC GT SCH (08:39)
[2022-11-09 20:00] VITALS: BP 92/52; TEMP 97; O2SAT 98
[2022-11-09] MEDS: FOLIC ACID 1 MG TABLET GT SCH (20:38)
[2022-11-09] MEDS: CHOLECALCIFEROL 1,000 UNIT TABLET GT SCH (20:39)
[2022-11-09] MEDS: THIAMINE HCL 100 MG TABLET GT SCH (20:39)
[2022-11-10] MEDS: ALBUTEROL SULFATE 2.5 MG/3 ML NEBU NEB SCH ×6 (03:39→23:40)
[2022-11-10] MEDS: IPRATROPIUM BROMIDE 0.5 MG/2.5 ML NEBU NEB SCH ×6 (03:39→23:40)
[2022-11-10] MEDS: VITAL AF 1.2 1,000 ML LIQUID GT PRN (04:38)
[2022-11-10] MEDS: MIDODRINE HCL 10 MG TABLET GT SCH ×3 (05:23→22:15)
[2022-11-10] MEDS: MAGNESIUM OXIDE 400 MG TABLET GT SCH (05:23)
[2022-11-10] MEDS: BACLOFEN 10 MG TABLET GT SCH ×3 (05:23→22:15)
[2022-11-10] MEDS: OMEPRAZOLE 20 MG CAPSULE.DR GT SCH (05:23)
[2022-11-10] MEDS: BACLOFEN 20 MG TABLET GT SCH ×3 (05:23→22:15)
[2022-11-10] MEDS: METOCLOPRAMIDE HCL 5 MG TABLET GT SCH ×3 (05:23→22:15)
[2022-11-10 07:09] LABS: BASOPHILS % (AUTO) 0.5 % (0.0-2.0); EOSINOPHILS # (AUTO) 0.2 K/uL (0.0-0.7); EOSINOPHILS % (AUTO) 4.9 % (0.0-7.0); HEMATOCRIT 32.6 % (31.2-41.9); HEMOGLOBIN 10.9 g/dL (10.9-14.3); LYMPHOCYTES # (AUTO) 1.6 K/uL (0.8-4.8); MEAN CORPUSCULAR HEMOGLOBIN 31.9 uug (24.7-32.8); MEAN CORPUSCULAR HGB CONC 33 g/dL (32.3-35.6); MONOCYTES # (AUTO) 0.4 K/uL (0.1-1.30); MONOCYTES % (AUTO) 8.3 % (0.0-11.0); NEUTROPHILS # (AUTO) 2.2 K/uL (1.8-8.9); NEUTROPHILS % (AUTO) 50.3 % (38.5-71.5); PLATELET COUNT (AUTO) 192 K/uL (179-408); RED CELL DISTRIBUTION WIDTH 17.2 % (12.3-17.7); WHITE BLOOD COUNT (AUTO) 4.4 K/uL (3.8-11.8)
[2022-11-10 07:34] LABS: CARBON DIOXIDE 22 mmol/L (21-32); CHLORIDE 108 mmol/L (98-107); CREATININE 0.5 mg/dL (0.6-1.3); GLUCOSE 77 mg/dL (74-106); MAGNESIUM 2.1 mg/dL (1.8-2.4); PHOSPHOROUS 4.1 mg/dL (2.5-4.9); POTASSIUM 3.9 mmol/L (3.5-5.1); SODIUM SERUM 141 mmol/L (136-145); UREA NITROGEN, BLOOD 15 mg/dL (7-18)
[2022-11-10 07:50] LABS: DIFFERENTIAL COMMENT 1
[2022-11-10 08:00] VITALS: TEMP 96
[2022-11-10] MEDS: HYDROGEN PEROXIDE 3% 118 ML BOTTLE TP SCH ×2 (08:47→19:04)
[2022-11-10] MEDS: PHENYTOIN 100 MG/4 ML UDC GT SCH ×2 (09:02→20:33)
[2022-11-10] MEDS: FERROUS SULFATE 330 MG/7.5 ML UDC- FOR SA ONLY GT SCH ×2 (09:02→20:37)
[2022-11-10] MEDS: FUROSEMIDE 10 MG/ML GT SCH (09:03)
[2022-11-10] MEDS: levETIRAcetam 500 MG/5 ML LIQUID UDC GT SCH ×2 (09:03→20:37)
[2022-11-10] MEDS: ACIDOPHILUS/BULGARICUS CHEW TAB GT SCH ×2 (09:03→20:37)
[2022-11-10] MEDS: POTASSIUM CHLORIDE 40 MEQ/30 ML LIQUID UDC GT SCH (09:04)
[2022-11-10] MEDS: REMEDY ESSENTIAL ZINC PASTE 113 GM TP SCH ×2 (09:04→20:38)
[2022-11-10 20:00] VITALS: TEMP 96
[2022-11-10] MEDS: FOLIC ACID 1 MG TABLET GT SCH (20:37)
[2022-11-10] MEDS: THIAMINE HCL 100 MG TABLET GT SCH (20:37)
[2022-11-10] MEDS: CHOLECALCIFEROL 1,000 UNIT TABLET GT SCH (20:37)
[2022-11-10] MEDS: MIRALAX 17 GM POWD.PACK GT SCH (20:37)
[2022-11-11] MEDS: IPRATROPIUM BROMIDE 0.5 MG/2.5 ML NEBU NEB SCH ×6 (03:39→23:29)
[2022-11-11] MEDS: ALBUTEROL SULFATE 2.5 MG/3 ML NEBU NEB SCH ×6 (03:39→23:29)
[2022-11-11] MEDS: BACLOFEN 20 MG TABLET GT SCH ×3 (05:06→22:40)
[2022-11-11] MEDS: MIDODRINE HCL 10 MG TABLET GT SCH ×3 (05:06→22:40)
[2022-11-11] MEDS: METOCLOPRAMIDE HCL 5 MG TABLET GT SCH ×3 (05:06→22:40)
[2022-11-11] MEDS: BACLOFEN 10 MG TABLET GT SCH ×3 (05:06→22:40)
[2022-11-11] MEDS: MAGNESIUM OXIDE 400 MG TABLET GT SCH (05:06)
[2022-11-11] MEDS: OMEPRAZOLE 20 MG CAPSULE.DR GT SCH (05:06)
[2022-11-11 08:00] VITALS: TEMP 98.2
[2022-11-11] MEDS: HYDROGEN PEROXIDE 3% 118 ML BOTTLE TP SCH ×2 (08:13→18:52)
[2022-11-11] MEDS: PHENYTOIN 100 MG/4 ML UDC GT SCH ×2 (08:39→20:51)
[2022-11-11] MEDS: FUROSEMIDE 10 MG/ML GT SCH (08:41)
[2022-11-11] MEDS: FERROUS SULFATE 330 MG/7.5 ML UDC- FOR SA ONLY GT SCH ×2 (08:41→20:49)
[2022-11-11] MEDS: ACIDOPHILUS/BULGARICUS CHEW TAB GT SCH ×2 (08:41→20:49)
[2022-11-11] MEDS: levETIRAcetam 500 MG/5 ML LIQUID UDC GT SCH ×2 (08:41→20:51)
[2022-11-11] MEDS: POTASSIUM CHLORIDE 40 MEQ/30 ML LIQUID UDC GT SCH (08:42)
[2022-11-11] MEDS: REMEDY ESSENTIAL ZINC PASTE 113 GM TP SCH ×2 (08:42→20:51)
[2022-11-11] MEDS: VITAL AF 1.2 1,000 ML LIQUID GT PRN (17:52)
[2022-11-11 20:18] VITALS: BP 113/63; TEMP 96.8; O2SAT 99
[2022-11-11] MEDS: FOLIC ACID 1 MG TABLET GT SCH (20:50)
[2022-11-11] MEDS: THIAMINE HCL 100 MG TABLET GT SCH (20:51)
[2022-11-11] MEDS: CHOLECALCIFEROL 1,000 UNIT TABLET GT SCH (20:51)
[2022-11-12] MEDS: ALBUTEROL SULFATE 2.5 MG/3 ML NEBU NEB SCH ×6 (03:19→23:08)
[2022-11-12] MEDS: IPRATROPIUM BROMIDE 0.5 MG/2.5 ML NEBU NEB SCH ×6 (03:19→23:08)
[2022-11-12] MEDS: BACLOFEN 10 MG TABLET GT SCH ×3 (05:31→21:11)
[2022-11-12] MEDS: BACLOFEN 20 MG TABLET GT SCH ×3 (05:31→21:11)
[2022-11-12] MEDS: MAGNESIUM OXIDE 400 MG TABLET GT SCH (05:31)
[2022-11-12] MEDS: METOCLOPRAMIDE HCL 5 MG TABLET GT SCH ×3 (05:32→21:11)
[2022-11-12] MEDS: OMEPRAZOLE 20 MG CAPSULE.DR GT SCH (05:32)
[2022-11-12] MEDS: MIDODRINE HCL 10 MG TABLET GT SCH ×3 (05:32→21:11)
[2022-11-12 08:00] VITALS: TEMP 97.8
[2022-11-12] MEDS: PHENYTOIN 100 MG/4 ML UDC GT SCH ×2 (08:45→21:08)
[2022-11-12] MEDS: FERROUS SULFATE 330 MG/7.5 ML UDC- FOR SA ONLY GT SCH ×2 (08:46→21:08)
[2022-11-12] MEDS: ACIDOPHILUS/BULGARICUS CHEW TAB GT SCH ×2 (08:47→21:09)
[2022-11-12] MEDS: FUROSEMIDE 10 MG/ML GT SCH (08:47)
[2022-11-12] MEDS: levETIRAcetam 500 MG/5 ML LIQUID UDC GT SCH ×2 (08:48→21:09)
[2022-11-12] MEDS: REMEDY ESSENTIAL ZINC PASTE 113 GM TP SCH ×2 (08:53→21:11)
[2022-11-12] MEDS: POTASSIUM CHLORIDE 40 MEQ/30 ML LIQUID UDC GT SCH (08:53)
[2022-11-12] MEDS: HYDROGEN PEROXIDE 3% 118 ML BOTTLE TP SCH ×2 (09:03→19:05)
[2022-11-12] MEDS: FOLIC ACID 1 MG TABLET GT SCH (21:09)
[2022-11-12] MEDS: MIRALAX 17 GM POWD.PACK GT SCH (21:10)
[2022-11-12] MEDS: THIAMINE HCL 100 MG TABLET GT SCH (21:10)
[2022-11-12] MEDS: CHOLECALCIFEROL 1,000 UNIT TABLET GT SCH (21:11)
[2022-11-13 00:59] VITALS: TEMP 96.5
[2022-11-13] MEDS: IPRATROPIUM BROMIDE 0.5 MG/2.5 ML NEBU NEB SCH ×6 (03:27→23:14)
[2022-11-13] MEDS: ALBUTEROL SULFATE 2.5 MG/3 ML NEBU NEB SCH ×6 (03:27→23:14)
[2022-11-13] MEDS: VITAL AF 1.2 1,000 ML LIQUID GT PRN (03:44)
[2022-11-13] MEDS: BACLOFEN 10 MG TABLET GT SCH ×3 (05:16→21:57)
[2022-11-13] MEDS: BACLOFEN 20 MG TABLET GT SCH ×3 (05:16→21:57)
[2022-11-13] MEDS: MIDODRINE HCL 10 MG TABLET GT SCH ×3 (05:16→21:57)
[2022-11-13] MEDS: MAGNESIUM OXIDE 400 MG TABLET GT SCH (05:16)
[2022-11-13] MEDS: METOCLOPRAMIDE HCL 5 MG TABLET GT SCH ×3 (05:17→21:57)
[2022-11-13] MEDS: OMEPRAZOLE 20 MG CAPSULE.DR GT SCH (05:17)
[2022-11-13 07:58] VITALS: TEMP 96
[2022-11-13] MEDS: HYDROGEN PEROXIDE 3% 118 ML BOTTLE TP SCH ×2 (08:20→19:10)
[2022-11-13] MEDS: FERROUS SULFATE 330 MG/7.5 ML UDC- FOR SA ONLY GT SCH ×2 (09:23→20:52)
[2022-11-13] MEDS: ACIDOPHILUS/BULGARICUS CHEW TAB GT SCH ×2 (09:24→20:52)
[2022-11-13] MEDS: FUROSEMIDE 10 MG/ML GT SCH (09:26)
[2022-11-13] MEDS: levETIRAcetam 500 MG/5 ML LIQUID UDC GT SCH ×2 (09:26→20:52)
[2022-11-13] MEDS: POTASSIUM CHLORIDE 40 MEQ/30 ML LIQUID UDC GT SCH (09:28)
[2022-11-13] MEDS: REMEDY ESSENTIAL ZINC PASTE 113 GM TP SCH ×2 (09:28→20:53)
[2022-11-13] MEDS: PHENYTOIN 100 MG/4 ML UDC GT SCH ×2 (09:33→20:52)
[2022-11-13 20:00] VITALS: TEMP 97.7
[2022-11-13] MEDS: FOLIC ACID 1 MG TABLET GT SCH (20:52)
[2022-11-13] MEDS: THIAMINE HCL 100 MG TABLET GT SCH (20:52)
[2022-11-13] MEDS: CHOLECALCIFEROL 1,000 UNIT TABLET GT SCH (20:53)
[2022-11-14] MEDS: IPRATROPIUM BROMIDE 0.5 MG/2.5 ML NEBU NEB SCH ×6 (03:21→23:21)
[2022-11-14] MEDS: ALBUTEROL SULFATE 2.5 MG/3 ML NEBU NEB SCH ×6 (03:21→23:21)
[2022-11-14] MEDS: MAGNESIUM OXIDE 400 MG TABLET GT SCH (05:43)
[2022-11-14] MEDS: MIDODRINE HCL 10 MG TABLET GT SCH ×3 (05:43→21:13)
[2022-11-14] MEDS: BACLOFEN 20 MG TABLET GT SCH ×3 (05:43→21:12)
[2022-11-14] MEDS: METOCLOPRAMIDE HCL 5 MG TABLET GT SCH ×3 (05:43→21:13)
[2022-11-14] MEDS: BACLOFEN 10 MG TABLET GT SCH ×3 (05:43→21:12)
[2022-11-14] MEDS: OMEPRAZOLE 20 MG CAPSULE.DR GT SCH (05:43)
[2022-11-14] MEDS: HYDROGEN PEROXIDE 3% 118 ML BOTTLE TP SCH ×2 (07:20→19:17)
[2022-11-14 07:36] VITALS: TEMP 97.2
[2022-11-14] MEDS: PHENYTOIN 100 MG/4 ML UDC GT SCH ×2 (09:13→21:12)
[2022-11-14] MEDS: ACIDOPHILUS/BULGARICUS CHEW TAB GT SCH ×2 (09:14→21:12)
[2022-11-14] MEDS: FERROUS SULFATE 330 MG/7.5 ML UDC- FOR SA ONLY GT SCH ×2 (09:14→21:12)
[2022-11-14] MEDS: FUROSEMIDE 10 MG/ML GT SCH (09:15)
[2022-11-14] MEDS: levETIRAcetam 500 MG/5 ML LIQUID UDC GT SCH ×2 (09:16→21:12)
[2022-11-14] MEDS: REMEDY ESSENTIAL ZINC PASTE 113 GM TP SCH ×2 (09:17→21:12)
[2022-11-14] MEDS: POTASSIUM CHLORIDE 40 MEQ/30 ML LIQUID UDC GT SCH (09:17)
[2022-11-14] MEDS: VITAL AF 1.2 1,000 ML LIQUID GT PRN (19:16)
[2022-11-14 20:00] VITALS: TEMP 97.8
[2022-11-14] MEDS: CHOLECALCIFEROL 1,000 UNIT TABLET GT SCH (21:12)
[2022-11-14] MEDS: FOLIC ACID 1 MG TABLET GT SCH (21:12)
[2022-11-14] MEDS: MIRALAX 17 GM POWD.PACK GT SCH (21:12)
[2022-11-14] MEDS: THIAMINE HCL 100 MG TABLET GT SCH (21:12)
[2022-11-15] MEDS: ALBUTEROL SULFATE 2.5 MG/3 ML NEBU NEB SCH ×6 (03:43→23:27)
[2022-11-15] MEDS: IPRATROPIUM BROMIDE 0.5 MG/2.5 ML NEBU NEB SCH ×6 (03:43→23:27)
[2022-11-15] MEDS: BACLOFEN 10 MG TABLET GT SCH ×3 (05:09→21:23)
[2022-11-15] MEDS: MAGNESIUM OXIDE 400 MG TABLET GT SCH (05:09)
[2022-11-15] MEDS: BACLOFEN 20 MG TABLET GT SCH ×3 (05:09→21:23)
[2022-11-15] MEDS: OMEPRAZOLE 20 MG CAPSULE.DR GT SCH (05:10)
[2022-11-15] MEDS: MIDODRINE HCL 10 MG TABLET GT SCH ×3 (05:10→21:24)
[2022-11-15] MEDS: METOCLOPRAMIDE HCL 5 MG TABLET GT SCH ×3 (05:10→21:24)
[2022-11-15 07:45] VITALS: TEMP 96.3
[2022-11-15] MEDS: HYDROGEN PEROXIDE 3% 118 ML BOTTLE TP SCH ×2 (08:54→19:02)
[2022-11-15] MEDS: levETIRAcetam 500 MG/5 ML LIQUID UDC GT SCH ×2 (08:59→21:23)
[2022-11-15] MEDS: FUROSEMIDE 10 MG/ML GT SCH (08:59)
[2022-11-15] MEDS: PHENYTOIN 100 MG/4 ML UDC GT SCH ×2 (08:59→21:23)
[2022-11-15] MEDS: ACIDOPHILUS/BULGARICUS CHEW TAB GT SCH ×2 (08:59→21:23)
[2022-11-15] MEDS: FERROUS SULFATE 330 MG/7.5 ML UDC- FOR SA ONLY GT SCH ×2 (08:59→21:23)
[2022-11-15] MEDS: POTASSIUM CHLORIDE 40 MEQ/30 ML LIQUID UDC GT SCH (08:59)
[2022-11-15] MEDS: REMEDY ESSENTIAL ZINC PASTE 113 GM TP SCH ×2 (09:00→21:23)
[2022-11-15 20:00] VITALS: TEMP 96
[2022-11-15] MEDS: FOLIC ACID 1 MG TABLET GT SCH (21:23)
[2022-11-15] MEDS: CHOLECALCIFEROL 1,000 UNIT TABLET GT SCH (21:23)
[2022-11-15] MEDS: THIAMINE HCL 100 MG TABLET GT SCH (21:23)
[2022-11-16] MEDS: ALBUTEROL SULFATE 2.5 MG/3 ML NEBU NEB SCH ×5 (03:31→20:20)
[2022-11-16] MEDS: IPRATROPIUM BROMIDE 0.5 MG/2.5 ML NEBU NEB SCH ×5 (03:31→20:20)
[2022-11-16] MEDS: VITAL AF 1.2 1,000 ML LIQUID GT PRN (04:59)
[2022-11-16] MEDS: BACLOFEN 20 MG TABLET GT SCH ×3 (05:07→22:16)
[2022-11-16] MEDS: MIDODRINE HCL 10 MG TABLET GT SCH ×3 (05:07→22:00)
[2022-11-16] MEDS: BACLOFEN 10 MG TABLET GT SCH ×3 (05:07→22:16)
[2022-11-16] MEDS: MAGNESIUM OXIDE 400 MG TABLET GT SCH (05:07)
[2022-11-16] MEDS: OMEPRAZOLE 20 MG CAPSULE.DR GT SCH (05:07)
[2022-11-16] MEDS: METOCLOPRAMIDE HCL 5 MG TABLET GT SCH ×3 (05:08→22:17)
[2022-11-16] MEDS: HYDROGEN PEROXIDE 3% 118 ML BOTTLE TP SCH ×2 (07:26→21:02)
[2022-11-16 08:01] VITALS: TEMP 96
[2022-11-16] MEDS: FERROUS SULFATE 330 MG/7.5 ML UDC- FOR SA ONLY GT SCH ×2 (08:59→20:45)
[2022-11-16] MEDS: PHENYTOIN 100 MG/4 ML UDC GT SCH ×2 (08:59→20:45)
[2022-11-16] MEDS: ACIDOPHILUS/BULGARICUS CHEW TAB GT SCH ×2 (08:59→20:45)
[2022-11-16] MEDS: FUROSEMIDE 10 MG/ML GT SCH (08:59)
[2022-11-16] MEDS: POTASSIUM CHLORIDE 40 MEQ/30 ML LIQUID UDC GT SCH (09:01)
[2022-11-16] MEDS: REMEDY ESSENTIAL ZINC PASTE 113 GM TP SCH ×2 (09:01→20:46)
[2022-11-16] MEDS: levETIRAcetam 500 MG/5 ML LIQUID UDC GT SCH ×2 (09:01→20:45)
[2022-11-16] MEDS: CHOLECALCIFEROL 1,000 UNIT TABLET GT SCH (20:45)
[2022-11-16] MEDS: FOLIC ACID 1 MG TABLET GT SCH (20:45)
[2022-11-16] MEDS: THIAMINE HCL 100 MG TABLET GT SCH (20:45)
[2022-11-16 20:53] VITALS: TEMP 97.2
[2022-11-17] MEDS: IPRATROPIUM BROMIDE 0.5 MG/2.5 ML NEBU NEB SCH ×7 (00:20→23:07)
[2022-11-17] MEDS: ALBUTEROL SULFATE 2.5 MG/3 ML NEBU NEB SCH ×7 (00:20→23:07)
[2022-11-17] MEDS: BACLOFEN 10 MG TABLET GT SCH ×3 (05:07→21:12)
[2022-11-17] MEDS: BACLOFEN 20 MG TABLET GT SCH ×3 (05:07→21:12)
[2022-11-17] MEDS: MAGNESIUM OXIDE 400 MG TABLET GT SCH (05:07)
[2022-11-17] MEDS: OMEPRAZOLE 20 MG CAPSULE.DR GT SCH (05:08)
[2022-11-17] MEDS: MIDODRINE HCL 10 MG TABLET GT SCH ×3 (05:08→21:13)
[2022-11-17] MEDS: METOCLOPRAMIDE HCL 5 MG TABLET GT SCH ×3 (05:08→21:13)
[2022-11-17 07:33] VITALS: TEMP 97
[2022-11-17] MEDS: levETIRAcetam 500 MG/5 ML LIQUID UDC GT SCH ×2 (09:00→21:12)
[2022-11-17] MEDS: FUROSEMIDE 10 MG/ML GT SCH (09:00)
[2022-11-17] MEDS: POTASSIUM CHLORIDE 40 MEQ/30 ML LIQUID UDC GT SCH (09:00)
[2022-11-17] MEDS: HYDROGEN PEROXIDE 3% 118 ML BOTTLE TP SCH ×2 (09:00→20:04)
[2022-11-17] MEDS: ACIDOPHILUS/BULGARICUS CHEW TAB GT SCH ×2 (09:00→21:12)
[2022-11-17] MEDS: FERROUS SULFATE 330 MG/7.5 ML UDC- FOR SA ONLY GT SCH ×2 (09:00→21:12)
[2022-11-17] MEDS: PHENYTOIN 100 MG/4 ML UDC GT SCH ×2 (09:00→21:12)
[2022-11-17] MEDS: REMEDY ESSENTIAL ZINC PASTE 113 GM TP SCH ×2 (09:00→21:12)
[2022-11-17] MEDS: VITAL AF 1.2 1,000 ML LIQUID GT PRN (16:48)
[2022-11-17] MEDS: THIAMINE HCL 100 MG TABLET GT SCH (21:12)
[2022-11-17] MEDS: FOLIC ACID 1 MG TABLET GT SCH (21:12)
[2022-11-17] MEDS: CHOLECALCIFEROL 1,000 UNIT TABLET GT SCH (21:12)
[2022-11-17] MEDS: MIRALAX 17 GM POWD.PACK GT SCH (21:12)
[2022-11-17 21:33] VITALS: TEMP 96
[2022-11-18] MEDS: IPRATROPIUM BROMIDE 0.5 MG/2.5 ML NEBU NEB SCH ×6 (03:15→23:13)
[2022-11-18] MEDS: ALBUTEROL SULFATE 2.5 MG/3 ML NEBU NEB SCH ×6 (03:15→23:13)
[2022-11-18] MEDS: METOCLOPRAMIDE HCL 5 MG TABLET GT SCH ×3 (05:59→21:01)
[2022-11-18] MEDS: BACLOFEN 20 MG TABLET GT SCH ×3 (05:59→21:01)
[2022-11-18] MEDS: MIDODRINE HCL 10 MG TABLET GT SCH ×3 (05:59→21:01)
[2022-11-18] MEDS: OMEPRAZOLE 20 MG CAPSULE.DR GT SCH (05:59)
[2022-11-18] MEDS: MAGNESIUM OXIDE 400 MG TABLET GT SCH (05:59)
[2022-11-18] MEDS: BACLOFEN 10 MG TABLET GT SCH ×3 (05:59→21:01)
[2022-11-18] MEDS: HYDROGEN PEROXIDE 3% 118 ML BOTTLE TP SCH ×2 (07:37→19:14)
[2022-11-18 09:07] VITALS: TEMP 96.7
[2022-11-18] MEDS: PHENYTOIN 100 MG/4 ML UDC GT SCH ×2 (09:25→20:40)
[2022-11-18] MEDS: ACIDOPHILUS/BULGARICUS CHEW TAB GT SCH ×2 (09:26→20:41)
[2022-11-18] MEDS: FUROSEMIDE 10 MG/ML GT SCH (09:26)
[2022-11-18] MEDS: FERROUS SULFATE 330 MG/7.5 ML UDC- FOR SA ONLY GT SCH ×2 (09:26→20:41)
[2022-11-18] MEDS: levETIRAcetam 500 MG/5 ML LIQUID UDC GT SCH ×2 (09:27→20:42)
[2022-11-18] MEDS: REMEDY ESSENTIAL ZINC PASTE 113 GM TP SCH ×2 (09:28→20:43)
[2022-11-18] MEDS: POTASSIUM CHLORIDE 40 MEQ/30 ML LIQUID UDC GT SCH (09:28)
[2022-11-18 20:00] VITALS: TEMP 97.7
[2022-11-18] MEDS: FOLIC ACID 1 MG TABLET GT SCH (20:41)
[2022-11-18] MEDS: THIAMINE HCL 100 MG TABLET GT SCH (20:42)
[2022-11-18] MEDS: CHOLECALCIFEROL 1,000 UNIT TABLET GT SCH (20:43)
[2022-11-19] MEDS: VITAL AF 1.2 1,000 ML LIQUID GT PRN (03:10)
[2022-11-19] MEDS: ALBUTEROL SULFATE 2.5 MG/3 ML NEBU NEB SCH ×6 (03:43→23:30)
[2022-11-19] MEDS: IPRATROPIUM BROMIDE 0.5 MG/2.5 ML NEBU NEB SCH ×6 (03:43→23:30)
[2022-11-19] MEDS: BACLOFEN 10 MG TABLET GT SCH ×3 (05:13→22:04)
[2022-11-19] MEDS: OMEPRAZOLE 20 MG CAPSULE.DR GT SCH (05:13)
[2022-11-19] MEDS: MAGNESIUM OXIDE 400 MG TABLET GT SCH (05:13)
[2022-11-19] MEDS: METOCLOPRAMIDE HCL 5 MG TABLET GT SCH ×3 (05:13→22:06)
[2022-11-19] MEDS: BACLOFEN 20 MG TABLET GT SCH ×3 (05:13→22:05)
[2022-11-19] MEDS: MIDODRINE HCL 10 MG TABLET GT SCH ×3 (05:13→22:06)
[2022-11-19 07:50] VITALS: TEMP 97
[2022-11-19] MEDS: HYDROGEN PEROXIDE 3% 118 ML BOTTLE TP SCH ×2 (08:09→19:01)
[2022-11-19] MEDS: PHENYTOIN 100 MG/4 ML UDC GT SCH ×2 (09:12→21:00)
[2022-11-19] MEDS: FERROUS SULFATE 330 MG/7.5 ML UDC- FOR SA ONLY GT SCH ×2 (09:12→21:00)
[2022-11-19] MEDS: ACIDOPHILUS/BULGARICUS CHEW TAB GT SCH ×2 (09:12→21:00)
[2022-11-19] MEDS: FUROSEMIDE 10 MG/ML GT SCH (09:15)
[2022-11-19] MEDS: levETIRAcetam 500 MG/5 ML LIQUID UDC GT SCH ×2 (09:15→21:00)
[2022-11-19] MEDS: POTASSIUM CHLORIDE 40 MEQ/30 ML LIQUID UDC GT SCH (09:16)
[2022-11-19] MEDS: REMEDY ESSENTIAL ZINC PASTE 113 GM TP SCH ×2 (09:16→21:00)
[2022-11-19 20:00] VITALS: TEMP 97.7
[2022-11-19] MEDS: THIAMINE HCL 100 MG TABLET GT SCH (21:00)
[2022-11-19] MEDS: FOLIC ACID 1 MG TABLET GT SCH (21:00)
[2022-11-19] MEDS: MIRALAX 17 GM POWD.PACK GT SCH (21:00)
[2022-11-19] MEDS: CHOLECALCIFEROL 1,000 UNIT TABLET GT SCH (21:00)
[2022-11-20] MEDS: ALBUTEROL SULFATE 2.5 MG/3 ML NEBU NEB SCH ×7 (03:27→23:29)
[2022-11-20] MEDS: IPRATROPIUM BROMIDE 0.5 MG/2.5 ML NEBU NEB SCH ×7 (03:27→23:29)
[2022-11-20] MEDS: BACLOFEN 20 MG TABLET GT SCH ×3 (06:09→22:02)
[2022-11-20] MEDS: BACLOFEN 10 MG TABLET GT SCH (06:09)
[2022-11-20] MEDS: OMEPRAZOLE 20 MG CAPSULE.DR GT SCH (06:10)
[2022-11-20] MEDS: METOCLOPRAMIDE HCL 5 MG TABLET GT SCH ×3 (06:10→22:04)
[2022-11-20] MEDS: MAGNESIUM OXIDE 400 MG TABLET GT SCH (06:10)
[2022-11-20] MEDS: MIDODRINE HCL 10 MG TABLET GT SCH ×3 (06:18→22:04)
[2022-11-20] MEDS: HYDROGEN PEROXIDE 3% 118 ML BOTTLE TP SCH ×2 (07:37→19:20)
[2022-11-20] MEDS: ACIDOPHILUS/BULGARICUS CHEW TAB GT SCH ×2 (09:01→21:00)
[2022-11-20] MEDS: FERROUS SULFATE 330 MG/7.5 ML UDC- FOR SA ONLY GT SCH ×2 (09:01→21:00)
[2022-11-20] MEDS: PHENYTOIN 100 MG/4 ML UDC GT SCH ×2 (09:01→21:00)
[2022-11-20] MEDS: FUROSEMIDE 10 MG/ML GT SCH (09:02)
[2022-11-20] MEDS: levETIRAcetam 500 MG/5 ML LIQUID UDC GT SCH ×2 (09:02→21:00)
[2022-11-20] MEDS: POTASSIUM CHLORIDE 40 MEQ/30 ML LIQUID UDC GT SCH (09:04)
[2022-11-20] MEDS: REMEDY ESSENTIAL ZINC PASTE 113 GM TP SCH ×2 (09:04→21:00)
[2022-11-20 13:04] VITALS: BP 79/38; O2SAT 99
[2022-11-20 16:49] VITALS: BP 87/45; TEMP 95.3; O2SAT 99
[2022-11-20] MEDS ORDERED: IV NORMAL SALINE 500 ML BAG ONE (17:42)
[2022-11-20] MEDS ORDERED: IV NORMAL SALINE 500 ML IV ONE (17:45)
[2022-11-20 17:59] LABS: BASOPHILS % (AUTO) 0.3 % (0.0-2.0); EOSINOPHILS # (AUTO) 0.1 K/uL (0.0-0.7); EOSINOPHILS % (AUTO) 1.4 % (0.0-7.0); HEMOGLOBIN 10.2 g/dL (10.9-14.3); LYMPHOCYTES # (AUTO) 1.4 K/uL (0.8-4.8); MEAN CORPUSCULAR HEMOGLOBIN 31.7 uug (24.7-32.8); MEAN CORPUSCULAR HGB CONC 33 g/dL (32.3-35.6); MEAN CORPUSCULAR VOLUME 96.5 fL (75.5-95.3); MONOCYTES # (AUTO) 0.3 K/uL (0.1-1.30); MONOCYTES % (AUTO) 4.5 % (0.0-11.0); NEUTROPHILS # (AUTO) 3.8 K/uL (1.8-8.9); NEUTROPHILS % (AUTO) 68.8 % (38.5-71.5); PLATELET COUNT (AUTO) 119 K/uL (179-408); RED BLOOD CELL COUNT(AUTO) 3.21 MIL/uL (3.63-4.92); RED CELL DISTRIBUTION WIDTH 17.8 % (12.3-17.7); WHITE BLOOD COUNT (AUTO) 5.6 K/uL (3.8-11.8)
[2022-11-20 18:15] LABS: ALBUMIN 2.4 g/dL (3.4-5.0); BILIRUBIN,TOTAL 0.1 mg/dL (0.2-1.0); CALCIUM 8.6 mg/dL (8.5-10.1); CREATININE 0.6 mg/dL (0.6-1.3); POTASSIUM 4.9 mmol/L (3.5-5.1); TOTAL PROTEIN, SERUM 6.7 g/dL (6.4-8.2)
[2022-11-20 18:27] LABS: DIFFERENTIAL COMMENT 1
[2022-11-20 18:57] LABS: *BILIRUBIN,URIN NEGATIVE (NEGATIVE); *BLOOD, URINE 3+ (NEGATIVE); *CLARITY,URINE CLOUDY (CLEAR); *COLOR,URINE YELLOW (YELLOW); *KETONES,URINE NEGATIVE (NEGATIVE); *PROTEIN,URINE 2+ (NEGATIVE); *UROBILINOGEN,URINE 0.2 E.U./dl (NORMAL); LEUKOCYTE ESTERASE ,URINE 2+ (NEGATIVE); NITRITE, URINE NEGATIVE (NEGATIVE); UGLUCOSE NEGATIVE (NEGATIVE)
[2022-11-20 19:04] VITALS: BP 83/42; O2SAT 99
[2022-11-20 19:50] LABS: RBC,URINE 80-100 /HPF (0-3)
[2022-11-20 19:51] LABS: BACTERIA,URINE MODERATE /HPF (NONE SEEN); SQUAMOUS EPITHELIAL CELL,UR MANY /HPF (NONE SEEN); WBC,URINE 20-50 /HPF (0-3)
[2022-11-20] MEDS: CHOLECALCIFEROL 1,000 UNIT TABLET GT SCH (21:00)
[2022-11-20] MEDS: FOLIC ACID 1 MG TABLET GT SCH (21:00)
[2022-11-20] MEDS: THIAMINE HCL 100 MG TABLET GT SCH (21:00)
[2022-11-20 21:43] VITALS: TEMP 97.8
[2022-11-21] MEDS: ALBUTEROL SULFATE 2.5 MG/3 ML NEBU NEB SCH ×6 (03:52→23:33)
[2022-11-21] MEDS: IPRATROPIUM BROMIDE 0.5 MG/2.5 ML NEBU NEB SCH ×6 (03:52→23:33)
[2022-11-21] MEDS: BACLOFEN 20 MG TABLET GT SCH ×3 (06:19→22:34)
[2022-11-21] MEDS: MAGNESIUM OXIDE 400 MG TABLET GT SCH (06:19)
[2022-11-21] MEDS: OMEPRAZOLE 20 MG CAPSULE.DR GT SCH (06:19)
[2022-11-21] MEDS: MIDODRINE HCL 10 MG TABLET GT SCH ×3 (06:19→22:35)
[2022-11-21] MEDS: METOCLOPRAMIDE HCL 5 MG TABLET GT SCH ×3 (06:20→22:35)
[2022-11-21 08:00] VITALS: TEMP 98
[2022-11-21] MEDS: HYDROGEN PEROXIDE 3% 118 ML BOTTLE TP SCH ×2 (08:27→19:03)
[2022-11-21] MEDS: levETIRAcetam 500 MG/5 ML LIQUID UDC GT SCH ×2 (09:00→21:00)
[2022-11-21] MEDS: FUROSEMIDE 10 MG/ML GT SCH (09:00)
[2022-11-21] MEDS: FERROUS SULFATE 330 MG/7.5 ML UDC- FOR SA ONLY GT SCH ×2 (09:00→21:00)
[2022-11-21] MEDS: ACIDOPHILUS/BULGARICUS CHEW TAB GT SCH ×2 (09:00→21:00)
[2022-11-21] MEDS: PHENYTOIN 100 MG/4 ML UDC GT SCH ×2 (09:00→21:00)
[2022-11-21] MEDS: REMEDY ESSENTIAL ZINC PASTE 113 GM TP SCH ×2 (09:00→21:00)
[2022-11-21] MEDS: POTASSIUM CHLORIDE 40 MEQ/30 ML LIQUID UDC GT SCH (09:00)
[2022-11-21 13:44] VITALS: TEMP 97.5
[2022-11-21 20:00] VITALS: TEMP 97.5
[2022-11-21] MEDS: MIRALAX 17 GM POWD.PACK GT SCH (21:00)
[2022-11-21] MEDS: CHOLECALCIFEROL 1,000 UNIT TABLET GT SCH (21:00)
[2022-11-21] MEDS: FOLIC ACID 1 MG TABLET GT SCH (21:00)
[2022-11-21] MEDS: THIAMINE HCL 100 MG TABLET GT SCH (21:00)
[2022-11-22] MEDS: IPRATROPIUM BROMIDE 0.5 MG/2.5 ML NEBU NEB SCH ×6 (03:58→23:19)
[2022-11-22] MEDS: ALBUTEROL SULFATE 2.5 MG/3 ML NEBU NEB SCH ×6 (03:58→23:19)
[2022-11-22] MEDS: MAGNESIUM OXIDE 400 MG TABLET GT SCH (05:18)
[2022-11-22] MEDS: BACLOFEN 20 MG TABLET GT SCH ×3 (05:18→21:34)
[2022-11-22] MEDS: METOCLOPRAMIDE HCL 5 MG TABLET GT SCH ×3 (05:18→21:35)
[2022-11-22] MEDS: MIDODRINE HCL 10 MG TABLET GT SCH ×3 (05:18→21:37)
[2022-11-22] MEDS: OMEPRAZOLE 20 MG CAPSULE.DR GT SCH (05:18)
[2022-11-22 07:48] VITALS: TEMP 97.1
[2022-11-22] MEDS: HYDROGEN PEROXIDE 3% 118 ML BOTTLE TP SCH ×2 (08:22→19:15)
[2022-11-22] MEDS: PHENYTOIN 100 MG/4 ML UDC GT SCH ×2 (09:56→21:48)
[2022-11-22] MEDS: FERROUS SULFATE 330 MG/7.5 ML UDC- FOR SA ONLY GT SCH ×2 (09:56→21:32)
[2022-11-22] MEDS: ACIDOPHILUS/BULGARICUS CHEW TAB GT SCH ×2 (09:56→21:32)
[2022-11-22] MEDS: FUROSEMIDE 10 MG/ML GT SCH (09:57)
[2022-11-22] MEDS: levETIRAcetam 500 MG/5 ML LIQUID UDC GT SCH ×2 (09:59→21:48)
[2022-11-22] MEDS: POTASSIUM CHLORIDE 40 MEQ/30 ML LIQUID UDC GT SCH (09:59)
[2022-11-22] MEDS: REMEDY ESSENTIAL ZINC PASTE 113 GM TP SCH ×2 (10:00→21:34)
[2022-11-22] MEDS: NORMAL SALINE IV SCH ×2 (13:52→22:04)
[2022-11-22] MEDS: MEROPENEM IV SCH ×2 (13:52→22:04)
[2022-11-22] MEDS ORDERED: MEROPENEM 0.5 G in IV NORMAL SALINE 50 ML IV SCH (14:00)
[2022-11-22] MEDS: FOLIC ACID 1 MG TABLET GT SCH (21:34)
[2022-11-22] MEDS: THIAMINE HCL 100 MG TABLET GT SCH (21:34)
[2022-11-22] MEDS: CHOLECALCIFEROL 1,000 UNIT TABLET GT SCH (21:39)
[2022-11-22 22:23] VITALS: TEMP 97
[2022-11-23] MEDS: ALBUTEROL SULFATE 2.5 MG/3 ML NEBU NEB SCH ×6 (03:47→23:58)
[2022-11-23] MEDS: IPRATROPIUM BROMIDE 0.5 MG/2.5 ML NEBU NEB SCH ×6 (03:47→23:58)
[2022-11-23] MEDS: NORMAL SALINE IV SCH ×3 (06:00→21:34)
[2022-11-23] MEDS: MEROPENEM IV SCH ×3 (06:00→21:34)
[2022-11-23] MEDS: METOCLOPRAMIDE HCL 5 MG TABLET GT SCH ×3 (06:41→21:55)
[2022-11-23] MEDS: MAGNESIUM OXIDE 400 MG TABLET GT SCH (06:41)
[2022-11-23] MEDS: BACLOFEN 20 MG TABLET GT SCH ×3 (06:41→21:54)
[2022-11-23] MEDS: OMEPRAZOLE 20 MG CAPSULE.DR GT SCH (06:41)
[2022-11-23] MEDS: MIDODRINE HCL 10 MG TABLET GT SCH ×3 (06:41→21:55)
[2022-11-23 07:29] VITALS: TEMP 97.4
[2022-11-23] MEDS: FUROSEMIDE 10 MG/ML GT SCH (08:26)
[2022-11-23] MEDS: POTASSIUM CHLORIDE 40 MEQ/30 ML LIQUID UDC GT SCH (08:26)
[2022-11-23] MEDS: PHENYTOIN 100 MG/4 ML UDC GT SCH ×2 (08:26→20:43)
[2022-11-23] MEDS: ACIDOPHILUS/BULGARICUS CHEW TAB GT SCH ×2 (08:26→20:44)
[2022-11-23] MEDS: levETIRAcetam 500 MG/5 ML LIQUID UDC GT SCH ×2 (08:26→20:45)
[2022-11-23] MEDS: FERROUS SULFATE 330 MG/7.5 ML UDC- FOR SA ONLY GT SCH ×2 (08:26→20:44)
[2022-11-23] MEDS: REMEDY ESSENTIAL ZINC PASTE 113 GM TP SCH ×2 (08:27→20:46)
[2022-11-23 09:32] LABS: BASOPHILS % (AUTO) 0.5 % (0.0-2.0); EOSINOPHILS # (AUTO) 0.1 K/uL (0.0-0.7); EOSINOPHILS % (AUTO) 4.9 % (0.0-7.0); HEMATOCRIT 28.6 % (31.2-41.9); HEMOGLOBIN 9.6 g/dL (10.9-14.3); LYMPHOCYTES # (AUTO) 1.2 K/uL (0.8-4.8); MEAN CORPUSCULAR HGB CONC 34 g/dL (32.3-35.6); MEAN CORPUSCULAR VOLUME 95.3 fL (75.5-95.3); MONOCYTES # (AUTO) 0.3 K/uL (0.1-1.30); MONOCYTES % (AUTO) 10.5 % (0.0-11.0); NEUTROPHILS # (AUTO) 1.1 K/uL (1.8-8.9); NEUTROPHILS % (AUTO) 40.1 % (38.5-71.5); PLATELET COUNT (AUTO) 115 K/uL (179-408); RED CELL DISTRIBUTION WIDTH 17.3 % (12.3-17.7); WHITE BLOOD COUNT (AUTO) 2.8 K/uL (3.8-11.8)
[2022-11-23 09:50] LABS: ALANINE AMINOTRANSFERASE 99 U/L (14-59); ALBUMIN 2.3 g/dL (3.4-5.0); ALKALINE PHOSPHATASE 151 U/L (50-136); ASPARTATE AMINOTRANSFERASE 28 U/L (15-37); BILIRUBIN,TOTAL 0.1 mg/dL (0.2-1.0); CALCIUM 8.5 mg/dL (8.5-10.1); CARBON DIOXIDE 21 mmol/L (21-32); CHLORIDE 109 mmol/L (98-107); CREATININE 0.5 mg/dL (0.6-1.3); GLUCOSE 100 mg/dL (74-106); POTASSIUM 4.6 mmol/L (3.5-5.1); SODIUM SERUM 139 mmol/L (136-145); TOTAL PROTEIN, SERUM 6.8 g/dL (6.4-8.2); UREA NITROGEN, BLOOD 17 mg/dL (7-18)
[2022-11-23 10:03] LABS: DIFFERENTIAL COMMENT 1
[2022-11-23] MEDS: HYDROGEN PEROXIDE 3% 118 ML BOTTLE TP SCH ×2 (11:14→19:36)
[2022-11-23] MEDS: VITAL AF 1.2 1,000 ML LIQUID GT PRN (18:01)
[2022-11-23] MEDS: FOLIC ACID 1 MG TABLET GT SCH (20:44)
[2022-11-23] MEDS: CHOLECALCIFEROL 1,000 UNIT TABLET GT SCH (20:46)
[2022-11-23] MEDS: THIAMINE HCL 100 MG TABLET GT SCH (20:46)
[2022-11-23 21:00] VITALS: TEMP 97.3
[2022-11-24] MEDS: IPRATROPIUM BROMIDE 0.5 MG/2.5 ML NEBU NEB SCH ×6 (03:56→23:30)
[2022-11-24] MEDS: ALBUTEROL SULFATE 2.5 MG/3 ML NEBU NEB SCH ×6 (03:56→23:30)
[2022-11-24] MEDS: MAGNESIUM OXIDE 400 MG TABLET GT SCH (05:27)
[2022-11-24] MEDS: BACLOFEN 20 MG TABLET GT SCH ×3 (05:27→21:19)
[2022-11-24] MEDS: MIDODRINE HCL 10 MG TABLET GT SCH ×3 (05:28→21:21)
[2022-11-24] MEDS: OMEPRAZOLE 20 MG CAPSULE.DR GT SCH (05:28)
[2022-11-24] MEDS: METOCLOPRAMIDE HCL 5 MG TABLET GT SCH ×3 (05:28→21:21)
[2022-11-24] MEDS: NORMAL SALINE IV SCH ×3 (05:33→22:06)
[2022-11-24] MEDS: MEROPENEM IV SCH ×3 (05:33→22:06)
[2022-11-24 07:15] VITALS: O2SAT 98
[2022-11-24] MEDS: HYDROGEN PEROXIDE 3% 118 ML BOTTLE TP SCH ×2 (07:24→19:06)
[2022-11-24 08:00] VITALS: TEMP 97
[2022-11-24] MEDS: PHENYTOIN 100 MG/4 ML UDC GT SCH ×2 (08:53→21:13)
[2022-11-24] MEDS: FERROUS SULFATE 330 MG/7.5 ML UDC- FOR SA ONLY GT SCH ×2 (08:54→21:16)
[2022-11-24] MEDS: ACIDOPHILUS/BULGARICUS CHEW TAB GT SCH ×2 (08:55→21:17)
[2022-11-24] MEDS: FUROSEMIDE 10 MG/ML GT SCH (08:55)
[2022-11-24] MEDS: levETIRAcetam 500 MG/5 ML LIQUID UDC GT SCH ×2 (08:56→21:18)
[2022-11-24] MEDS: POTASSIUM CHLORIDE 40 MEQ/30 ML LIQUID UDC GT SCH (08:57)
[2022-11-24] MEDS: REMEDY ESSENTIAL ZINC PASTE 113 GM TP SCH ×2 (09:08→21:19)
[2022-11-24 20:36] VITALS: TEMP 97.3
[2022-11-24] MEDS: FOLIC ACID 1 MG TABLET GT SCH (21:17)
[2022-11-24] MEDS: MIRALAX 17 GM POWD.PACK GT SCH (21:18)
[2022-11-24] MEDS: CHOLECALCIFEROL 1,000 UNIT TABLET GT SCH (21:19)
[2022-11-24] MEDS: THIAMINE HCL 100 MG TABLET GT SCH (21:19)
[2022-11-25] MEDS: ALBUTEROL SULFATE 2.5 MG/3 ML NEBU NEB SCH ×6 (03:02→23:32)
[2022-11-25] MEDS: IPRATROPIUM BROMIDE 0.5 MG/2.5 ML NEBU NEB SCH ×6 (03:02→23:32)
[2022-11-25] MEDS: VITAL AF 1.2 1,000 ML LIQUID GT PRN (05:04)
[2022-11-25] MEDS: MAGNESIUM OXIDE 400 MG TABLET GT SCH (05:37)
[2022-11-25] MEDS: BACLOFEN 20 MG TABLET GT SCH ×3 (05:37→21:21)
[2022-11-25] MEDS: METOCLOPRAMIDE HCL 5 MG TABLET GT SCH ×3 (05:38→21:21)
[2022-11-25] MEDS: MIDODRINE HCL 10 MG TABLET GT SCH ×3 (05:38→21:21)
[2022-11-25] MEDS: OMEPRAZOLE 20 MG CAPSULE.DR GT SCH (05:38)
[2022-11-25] MEDS: MEROPENEM IV SCH ×3 (05:39→21:12)
[2022-11-25] MEDS: NORMAL SALINE IV SCH ×3 (05:39→21:12)
[2022-11-25] MEDS: HYDROGEN PEROXIDE 3% 118 ML BOTTLE TP SCH ×2 (07:38→19:01)
[2022-11-25] MEDS: PHENYTOIN 100 MG/4 ML UDC GT SCH ×2 (09:00→21:17)
[2022-11-25] MEDS: ACIDOPHILUS/BULGARICUS CHEW TAB GT SCH ×2 (09:00→21:19)
[2022-11-25] MEDS: POTASSIUM CHLORIDE 40 MEQ/30 ML LIQUID UDC GT SCH (09:00)
[2022-11-25] MEDS: REMEDY ESSENTIAL ZINC PASTE 113 GM TP SCH ×2 (09:00→21:20)
[2022-11-25] MEDS: FERROUS SULFATE 330 MG/7.5 ML UDC- FOR SA ONLY GT SCH ×2 (09:00→21:18)
[2022-11-25] MEDS: FUROSEMIDE 10 MG/ML GT SCH (09:00)
[2022-11-25] MEDS: levETIRAcetam 500 MG/5 ML LIQUID UDC GT SCH ×2 (09:00→21:18)
[2022-11-25 20:00] VITALS: TEMP 97.4
[2022-11-25] MEDS: FOLIC ACID 1 MG TABLET GT SCH (21:20)
[2022-11-25] MEDS: CHOLECALCIFEROL 1,000 UNIT TABLET GT SCH (21:20)
[2022-11-25] MEDS: THIAMINE HCL 100 MG TABLET GT SCH (21:20)
[2022-11-26] MEDS: IPRATROPIUM BROMIDE 0.5 MG/2.5 ML NEBU NEB SCH ×6 (03:30→23:23)
[2022-11-26] MEDS: ALBUTEROL SULFATE 2.5 MG/3 ML NEBU NEB SCH ×6 (03:30→23:23)
[2022-11-26] MEDS: MIDODRINE HCL 10 MG TABLET GT SCH ×3 (05:47→21:07)
[2022-11-26] MEDS: BACLOFEN 20 MG TABLET GT SCH ×3 (05:47→21:07)
[2022-11-26] MEDS: MAGNESIUM OXIDE 400 MG TABLET GT SCH (05:47)
[2022-11-26] MEDS: METOCLOPRAMIDE HCL 5 MG TABLET GT SCH ×3 (05:48→21:07)
[2022-11-26] MEDS: OMEPRAZOLE 20 MG CAPSULE.DR GT SCH (05:48)
[2022-11-26] MEDS: MEROPENEM IV SCH (05:50)
[2022-11-26] MEDS: NORMAL SALINE IV SCH (05:50)
[2022-11-26 08:00] VITALS: TEMP 97.4
[2022-11-26] MEDS: FERROUS SULFATE 330 MG/7.5 ML UDC- FOR SA ONLY GT SCH ×2 (09:00→21:05)
[2022-11-26] MEDS: ACIDOPHILUS/BULGARICUS CHEW TAB GT SCH ×2 (09:00→21:06)
[2022-11-26] MEDS: REMEDY ESSENTIAL ZINC PASTE 113 GM TP SCH ×2 (09:00→21:07)
[2022-11-26] MEDS: FUROSEMIDE 10 MG/ML GT SCH (09:00)
[2022-11-26] MEDS: PHENYTOIN 100 MG/4 ML UDC GT SCH ×2 (09:00→21:05)
[2022-11-26] MEDS: POTASSIUM CHLORIDE 40 MEQ/30 ML LIQUID UDC GT SCH (09:00)
[2022-11-26] MEDS: levETIRAcetam 500 MG/5 ML LIQUID UDC GT SCH ×2 (09:00→21:06)
[2022-11-26] MEDS: HYDROGEN PEROXIDE 3% 118 ML BOTTLE TP SCH ×2 (09:27→19:12)
[2022-11-26 20:00] VITALS: TEMP 98.2
[2022-11-26] MEDS: FOLIC ACID 1 MG TABLET GT SCH (21:06)
[2022-11-26] MEDS: THIAMINE HCL 100 MG TABLET GT SCH (21:06)
[2022-11-26] MEDS: MIRALAX 17 GM POWD.PACK GT SCH (21:06)
[2022-11-26] MEDS: CHOLECALCIFEROL 1,000 UNIT TABLET GT SCH (21:07)
[2022-11-27] MEDS: IPRATROPIUM BROMIDE 0.5 MG/2.5 ML NEBU NEB SCH ×6 (03:44→23:48)
[2022-11-27] MEDS: ALBUTEROL SULFATE 2.5 MG/3 ML NEBU NEB SCH ×6 (03:44→23:48)
[2022-11-27] MEDS: BACLOFEN 20 MG TABLET GT SCH ×3 (05:53→22:11)
[2022-11-27] MEDS: MAGNESIUM OXIDE 400 MG TABLET GT SCH (05:53)
[2022-11-27] MEDS: METOCLOPRAMIDE HCL 5 MG TABLET GT SCH ×3 (05:54→22:11)
[2022-11-27] MEDS: MIDODRINE HCL 10 MG TABLET GT SCH ×3 (05:54→22:11)
[2022-11-27] MEDS: OMEPRAZOLE 20 MG CAPSULE.DR GT SCH (05:54)
[2022-11-27 08:00] VITALS: TEMP 98.8
[2022-11-27] MEDS: HYDROGEN PEROXIDE 3% 118 ML BOTTLE TP SCH ×2 (08:27→19:13)
[2022-11-27] MEDS: PHENYTOIN 100 MG/4 ML UDC GT SCH ×2 (08:57→20:29)
[2022-11-27] MEDS: ACIDOPHILUS/BULGARICUS CHEW TAB GT SCH ×2 (09:00→20:30)
[2022-11-27] MEDS: FUROSEMIDE 10 MG/ML GT SCH (09:00)
[2022-11-27] MEDS: FERROUS SULFATE 330 MG/7.5 ML UDC- FOR SA ONLY GT SCH ×2 (09:00→20:29)
[2022-11-27] MEDS: POTASSIUM CHLORIDE 40 MEQ/30 ML LIQUID UDC GT SCH (09:01)
[2022-11-27] MEDS: levETIRAcetam 500 MG/5 ML LIQUID UDC GT SCH ×2 (09:01→20:30)
[2022-11-27] MEDS: REMEDY ESSENTIAL ZINC PASTE 113 GM TP SCH ×2 (09:01→20:32)
[2022-11-27 20:00] VITALS: TEMP 97.6
[2022-11-27] MEDS: FOLIC ACID 1 MG TABLET GT SCH (20:30)
[2022-11-27] MEDS: THIAMINE HCL 100 MG TABLET GT SCH (20:30)
[2022-11-27] MEDS: CHOLECALCIFEROL 1,000 UNIT TABLET GT SCH (20:32)
[2022-11-28] MEDS: VITAL AF 1.2 1,000 ML LIQUID GT PRN (01:47)
[2022-11-28] MEDS: ALBUTEROL SULFATE 2.5 MG/3 ML NEBU NEB SCH ×6 (03:04→23:00)
[2022-11-28] MEDS: IPRATROPIUM BROMIDE 0.5 MG/2.5 ML NEBU NEB SCH ×6 (03:04→23:00)
[2022-11-28] MEDS: MIDODRINE HCL 10 MG TABLET GT SCH ×3 (06:13→22:06)
[2022-11-28] MEDS: MAGNESIUM OXIDE 400 MG TABLET GT SCH (06:13)
[2022-11-28] MEDS: OMEPRAZOLE 20 MG CAPSULE.DR GT SCH (06:13)
[2022-11-28] MEDS: BACLOFEN 20 MG TABLET GT SCH ×3 (06:13→22:05)
[2022-11-28] MEDS: METOCLOPRAMIDE HCL 5 MG TABLET GT SCH ×3 (06:14→22:06)
[2022-11-28 07:28] VITALS: TEMP 97.2
[2022-11-28] MEDS: PHENYTOIN 100 MG/4 ML UDC GT SCH ×2 (08:59→21:00)
[2022-11-28] MEDS: HYDROGEN PEROXIDE 3% 118 ML BOTTLE TP SCH ×2 (09:00→18:25)
[2022-11-28] MEDS: FERROUS SULFATE 330 MG/7.5 ML UDC- FOR SA ONLY GT SCH ×2 (09:03→21:00)
[2022-11-28] MEDS: ACIDOPHILUS/BULGARICUS CHEW TAB GT SCH ×2 (09:05→21:00)
[2022-11-28] MEDS: FUROSEMIDE 10 MG/ML GT SCH (09:05)
[2022-11-28] MEDS: levETIRAcetam 500 MG/5 ML LIQUID UDC GT SCH ×2 (09:06→21:00)
[2022-11-28] MEDS: POTASSIUM CHLORIDE 40 MEQ/30 ML LIQUID UDC GT SCH (09:06)
[2022-11-28] MEDS: REMEDY ESSENTIAL ZINC PASTE 113 GM TP SCH ×2 (09:07→21:00)
[2022-11-28] MEDS ORDERED: NYSTATIN CREAM 30 GM TUBE TP PRN (16:45)
[2022-11-28] MEDS ORDERED: TRIAMCINOLONE ACET 0.1% CREAM 15 GM TUBE TP PRN (16:45)
[2022-11-28] MEDS: TRIAMCINOLONE ACET 0.1% CREAM 15 GM TUBE TP SCH ×2 (17:00→21:00)
[2022-11-28] MEDS: NYSTATIN CREAM 30 GM TUBE TP SCH ×2 (17:00→21:00)
[2022-11-28 21:00] VITALS: TEMP 97.1
[2022-11-28] MEDS: MIRALAX 17 GM POWD.PACK GT SCH (21:00)
[2022-11-28] MEDS: CHOLECALCIFEROL 1,000 UNIT TABLET GT SCH (21:00)
[2022-11-28] MEDS: THIAMINE HCL 100 MG TABLET GT SCH (21:00)
[2022-11-28] MEDS: FOLIC ACID 1 MG TABLET GT SCH (21:00)
[2022-11-29] MEDS: ALBUTEROL SULFATE 2.5 MG/3 ML NEBU NEB SCH ×6 (03:15→23:40)
[2022-11-29] MEDS: IPRATROPIUM BROMIDE 0.5 MG/2.5 ML NEBU NEB SCH ×6 (03:15→23:40)
[2022-11-29] MEDS: MAGNESIUM OXIDE 400 MG TABLET GT SCH (05:58)
[2022-11-29] MEDS: BACLOFEN 20 MG TABLET GT SCH ×3 (05:58→21:54)
[2022-11-29] MEDS: OMEPRAZOLE 20 MG CAPSULE.DR GT SCH (05:59)
[2022-11-29] MEDS: MIDODRINE HCL 10 MG TABLET GT SCH ×3 (06:00→21:55)
[2022-11-29] MEDS: METOCLOPRAMIDE HCL 5 MG TABLET GT SCH ×3 (06:03→22:58)
[2022-11-29 07:41] VITALS: TEMP 97.6
[2022-11-29] MEDS: levETIRAcetam 500 MG/5 ML LIQUID UDC GT SCH ×2 (08:28→21:52)
[2022-11-29] MEDS: REMEDY ESSENTIAL ZINC PASTE 113 GM TP SCH ×2 (08:28→21:53)
[2022-11-29] MEDS: FUROSEMIDE 10 MG/ML GT SCH (08:28)
[2022-11-29] MEDS: TRIAMCINOLONE ACET 0.1% CREAM 15 GM TUBE TP SCH ×2 (08:28→21:52)
[2022-11-29] MEDS: FERROUS SULFATE 330 MG/7.5 ML UDC- FOR SA ONLY GT SCH ×2 (08:28→21:52)
[2022-11-29] MEDS: POTASSIUM CHLORIDE 40 MEQ/30 ML LIQUID UDC GT SCH (08:28)
[2022-11-29] MEDS: NYSTATIN CREAM 30 GM TUBE TP SCH ×2 (08:28→21:52)
[2022-11-29] MEDS: ACIDOPHILUS/BULGARICUS CHEW TAB GT SCH ×2 (08:28→21:52)
[2022-11-29] MEDS: PHENYTOIN 100 MG/4 ML UDC GT SCH ×2 (08:28→21:52)
[2022-11-29] MEDS: HYDROGEN PEROXIDE 3% 118 ML BOTTLE TP SCH ×2 (08:46→21:32)
[2022-11-29] MEDS: FOLIC ACID 1 MG TABLET GT SCH (21:52)
[2022-11-29] MEDS: THIAMINE HCL 100 MG TABLET GT SCH (21:52)
[2022-11-29] MEDS: CHOLECALCIFEROL 1,000 UNIT TABLET GT SCH (21:52)
[2022-11-29 22:52] VITALS: TEMP 97.7
[2022-11-30] MEDS: ALBUTEROL SULFATE 2.5 MG/3 ML NEBU NEB SCH ×6 (04:23→23:03)
[2022-11-30] MEDS: IPRATROPIUM BROMIDE 0.5 MG/2.5 ML NEBU NEB SCH ×6 (04:23→23:03)
[2022-11-30] MEDS: MIDODRINE HCL 10 MG TABLET GT SCH ×3 (06:00→21:52)
[2022-11-30] MEDS: BACLOFEN 20 MG TABLET GT SCH ×3 (06:50→21:52)
[2022-11-30] MEDS: MAGNESIUM OXIDE 400 MG TABLET GT SCH (06:50)
[2022-11-30] MEDS: METOCLOPRAMIDE HCL 5 MG TABLET GT SCH ×3 (06:51→21:52)
[2022-11-30] MEDS: OMEPRAZOLE 20 MG CAPSULE.DR GT SCH (06:51)
[2022-11-30] MEDS: PHENYTOIN 100 MG/4 ML UDC GT SCH ×2 (08:34→21:52)
[2022-11-30] MEDS: FERROUS SULFATE 330 MG/7.5 ML UDC- FOR SA ONLY GT SCH ×2 (08:34→21:52)
[2022-11-30] MEDS: ACIDOPHILUS/BULGARICUS CHEW TAB GT SCH ×2 (08:35→21:52)
[2022-11-30] MEDS: levETIRAcetam 500 MG/5 ML LIQUID UDC GT SCH ×2 (08:36→21:52)
[2022-11-30] MEDS: FUROSEMIDE 10 MG/ML GT SCH (08:36)
[2022-11-30] MEDS: POTASSIUM CHLORIDE 40 MEQ/30 ML LIQUID UDC GT SCH (08:37)
[2022-11-30] MEDS: TRIAMCINOLONE ACET 0.1% CREAM 15 GM TUBE TP SCH ×2 (08:37→21:52)
[2022-11-30] MEDS: REMEDY ESSENTIAL ZINC PASTE 113 GM TP SCH ×2 (08:37→21:52)
[2022-11-30] MEDS: NYSTATIN CREAM 30 GM TUBE TP SCH ×2 (08:37→21:52)
[2022-11-30 11:11] VITALS: O2SAT 98
[2022-11-30] MEDS: HYDROGEN PEROXIDE 3% 118 ML BOTTLE TP SCH ×2 (11:20→19:33)
[2022-11-30 20:36] VITALS: TEMP 97.2
[2022-11-30] MEDS: CHOLECALCIFEROL 1,000 UNIT TABLET GT SCH (21:52)
[2022-11-30] MEDS: FOLIC ACID 1 MG TABLET GT SCH (21:52)
[2022-11-30] MEDS: THIAMINE HCL 100 MG TABLET GT SCH (21:52)
[2022-12-01] MEDS: IPRATROPIUM BROMIDE 0.5 MG/2.5 ML NEBU NEB SCH ×6 (03:37→23:12)
[2022-12-01] MEDS: ALBUTEROL SULFATE 2.5 MG/3 ML NEBU NEB SCH ×6 (03:37→23:12)
[2022-12-01] MEDS: VITAL AF 1.2 1,000 ML LIQUID GT PRN (04:30)
[2022-12-01] MEDS: MAGNESIUM OXIDE 400 MG TABLET GT SCH (05:48)
[2022-12-01] MEDS: BACLOFEN 20 MG TABLET GT SCH ×3 (05:48→21:33)
[2022-12-01] MEDS: METOCLOPRAMIDE HCL 5 MG TABLET GT SCH ×3 (05:49→21:35)
[2022-12-01] MEDS: OMEPRAZOLE 20 MG CAPSULE.DR GT SCH (05:49)
[2022-12-01] MEDS: MIDODRINE HCL 10 MG TABLET GT SCH ×3 (05:49→21:35)
[2022-12-01 07:39] VITALS: TEMP 97.6
[2022-12-01] MEDS: HYDROGEN PEROXIDE 3% 118 ML BOTTLE TP SCH ×2 (08:33→19:10)
[2022-12-01] MEDS: PHENYTOIN 100 MG/4 ML UDC GT SCH ×2 (09:41→21:20)
[2022-12-01] MEDS: FUROSEMIDE 10 MG/ML GT SCH (09:42)
[2022-12-01] MEDS: FERROUS SULFATE 330 MG/7.5 ML UDC- FOR SA ONLY GT SCH ×2 (09:42→21:20)
[2022-12-01] MEDS: ACIDOPHILUS/BULGARICUS CHEW TAB GT SCH ×2 (09:42→21:20)
[2022-12-01] MEDS: levETIRAcetam 500 MG/5 ML LIQUID UDC GT SCH ×2 (09:43→21:20)
[2022-12-01] MEDS: TRIAMCINOLONE ACET 0.1% CREAM 15 GM TUBE TP SCH ×2 (09:45→21:21)
[2022-12-01] MEDS: REMEDY ESSENTIAL ZINC PASTE 113 GM TP SCH ×2 (09:45→21:21)
[2022-12-01] MEDS: POTASSIUM CHLORIDE 40 MEQ/30 ML LIQUID UDC GT SCH (09:45)
[2022-12-01] MEDS: NYSTATIN CREAM 30 GM TUBE TP SCH ×2 (09:45→21:21)
[2022-12-01] MEDS: MIRALAX 17 GM POWD.PACK GT SCH (21:20)
[2022-12-01] MEDS: FOLIC ACID 1 MG TABLET GT SCH (21:20)
[2022-12-01] MEDS: THIAMINE HCL 100 MG TABLET GT SCH (21:21)
[2022-12-01] MEDS: CHOLECALCIFEROL 1,000 UNIT TABLET GT SCH (21:21)
[2022-12-01 22:13] VITALS: TEMP 98.3
[2022-12-02] MEDS: ALBUTEROL SULFATE 2.5 MG/3 ML NEBU NEB SCH ×6 (03:15→23:04)
[2022-12-02] MEDS: IPRATROPIUM BROMIDE 0.5 MG/2.5 ML NEBU NEB SCH ×6 (03:15→23:04)
[2022-12-02] MEDS: BACLOFEN 20 MG TABLET GT SCH ×3 (05:24→21:01)
[2022-12-02] MEDS: MIDODRINE HCL 10 MG TABLET GT SCH ×3 (05:24→21:02)
[2022-12-02] MEDS: MAGNESIUM OXIDE 400 MG TABLET GT SCH (05:24)
[2022-12-02] MEDS: METOCLOPRAMIDE HCL 5 MG TABLET GT SCH ×3 (05:25→21:02)
[2022-12-02] MEDS: OMEPRAZOLE 20 MG CAPSULE.DR GT SCH (05:25)
[2022-12-02 08:00] VITALS: TEMP 98.6
[2022-12-02] MEDS: FUROSEMIDE 10 MG/ML GT SCH (08:35)
[2022-12-02] MEDS: ACIDOPHILUS/BULGARICUS CHEW TAB GT SCH ×2 (08:35→21:00)
[2022-12-02] MEDS: PHENYTOIN 100 MG/4 ML UDC GT SCH ×2 (08:35→21:00)
[2022-12-02] MEDS: FERROUS SULFATE 330 MG/7.5 ML UDC- FOR SA ONLY GT SCH ×2 (08:35→21:00)
[2022-12-02] MEDS: levETIRAcetam 500 MG/5 ML LIQUID UDC GT SCH ×2 (08:36→21:00)
[2022-12-02] MEDS: TRIAMCINOLONE ACET 0.1% CREAM 15 GM TUBE TP SCH ×2 (08:37→21:01)
[2022-12-02] MEDS: NYSTATIN CREAM 30 GM TUBE TP SCH ×2 (08:37→21:01)
[2022-12-02] MEDS: POTASSIUM CHLORIDE 40 MEQ/30 ML LIQUID UDC GT SCH (08:37)
[2022-12-02] MEDS: REMEDY ESSENTIAL ZINC PASTE 113 GM TP SCH ×2 (08:38→21:01)
[2022-12-02] MEDS: HYDROGEN PEROXIDE 3% 118 ML BOTTLE TP SCH ×2 (10:10→19:09)
[2022-12-02] MEDS: VITAL AF 1.2 1,000 ML LIQUID GT PRN (14:26)
[2022-12-02 20:00] VITALS: TEMP 97.8
[2022-12-02] MEDS: FOLIC ACID 1 MG TABLET GT SCH (21:00)
[2022-12-02] MEDS: CHOLECALCIFEROL 1,000 UNIT TABLET GT SCH (21:01)
[2022-12-02] MEDS: THIAMINE HCL 100 MG TABLET GT SCH (21:01)
[2022-12-03] MEDS: ALBUTEROL SULFATE 2.5 MG/3 ML NEBU NEB SCH ×6 (03:07→23:52)
[2022-12-03] MEDS: IPRATROPIUM BROMIDE 0.5 MG/2.5 ML NEBU NEB SCH ×6 (03:07→23:52)
[2022-12-03] MEDS: MIDODRINE HCL 10 MG TABLET GT SCH ×3 (06:00→21:10)
[2022-12-03] MEDS: MAGNESIUM OXIDE 400 MG TABLET GT SCH (06:11)
[2022-12-03] MEDS: OMEPRAZOLE 20 MG CAPSULE.DR GT SCH (06:11)
[2022-12-03] MEDS: METOCLOPRAMIDE HCL 5 MG TABLET GT SCH ×3 (06:11→21:10)
[2022-12-03] MEDS: BACLOFEN 20 MG TABLET GT SCH ×3 (06:11→21:10)
[2022-12-03] MEDS: HYDROGEN PEROXIDE 3% 118 ML BOTTLE TP SCH ×2 (07:13→19:11)
[2022-12-03 09:07] VITALS: TEMP 98
[2022-12-03] MEDS: REMEDY ESSENTIAL ZINC PASTE 113 GM TP SCH ×2 (09:55→21:09)
[2022-12-03] MEDS: POTASSIUM CHLORIDE 40 MEQ/30 ML LIQUID UDC GT SCH (09:55)
[2022-12-03] MEDS: NYSTATIN CREAM 30 GM TUBE TP SCH ×2 (09:55→21:09)
[2022-12-03] MEDS: FERROUS SULFATE 330 MG/7.5 ML UDC- FOR SA ONLY GT SCH ×2 (09:55→21:09)
[2022-12-03] MEDS: ACIDOPHILUS/BULGARICUS CHEW TAB GT SCH ×2 (09:55→21:09)
[2022-12-03] MEDS: PHENYTOIN 100 MG/4 ML UDC GT SCH ×2 (09:55→21:09)
[2022-12-03] MEDS: levETIRAcetam 500 MG/5 ML LIQUID UDC GT SCH ×2 (09:55→21:09)
[2022-12-03] MEDS: TRIAMCINOLONE ACET 0.1% CREAM 15 GM TUBE TP SCH ×2 (09:55→21:09)
[2022-12-03] MEDS: FUROSEMIDE 10 MG/ML GT SCH (09:55)
[2022-12-03 20:00] VITALS: TEMP 97.8
[2022-12-03] MEDS: THIAMINE HCL 100 MG TABLET GT SCH (21:09)
[2022-12-03] MEDS: CHOLECALCIFEROL 1,000 UNIT TABLET GT SCH (21:09)
[2022-12-03] MEDS: MIRALAX 17 GM POWD.PACK GT SCH (21:09)
[2022-12-03] MEDS: FOLIC ACID 1 MG TABLET GT SCH (21:09)
[2022-12-04] MEDS: IPRATROPIUM BROMIDE 0.5 MG/2.5 ML NEBU NEB SCH ×6 (03:30→23:39)
[2022-12-04] MEDS: ALBUTEROL SULFATE 2.5 MG/3 ML NEBU NEB SCH ×6 (03:30→23:39)
[2022-12-04 04:59] VITALS: BP 137/84; O2SAT 99
[2022-12-04] MEDS: BACLOFEN 20 MG TABLET GT SCH ×3 (05:53→21:30)
[2022-12-04] MEDS: MAGNESIUM OXIDE 400 MG TABLET GT SCH (05:53)
[2022-12-04] MEDS: OMEPRAZOLE 20 MG CAPSULE.DR GT SCH (05:55)
[2022-12-04] MEDS: MIDODRINE HCL 10 MG TABLET GT SCH ×3 (05:55→21:31)
[2022-12-04] MEDS: METOCLOPRAMIDE HCL 5 MG TABLET GT SCH ×3 (05:56→21:31)
[2022-12-04 07:38] VITALS: TEMP 97.7
[2022-12-04] MEDS: HYDROGEN PEROXIDE 3% 118 ML BOTTLE TP SCH ×2 (07:51→19:05)
[2022-12-04] MEDS: PHENYTOIN 100 MG/4 ML UDC GT SCH ×2 (09:53→21:30)
[2022-12-04] MEDS: ACIDOPHILUS/BULGARICUS CHEW TAB GT SCH ×2 (09:53→21:30)
[2022-12-04] MEDS: FERROUS SULFATE 330 MG/7.5 ML UDC- FOR SA ONLY GT SCH ×2 (09:53→21:30)
[2022-12-04] MEDS: FUROSEMIDE 10 MG/ML GT SCH (09:53)
[2022-12-04] MEDS: REMEDY ESSENTIAL ZINC PASTE 113 GM TP SCH ×2 (09:54→21:30)
[2022-12-04] MEDS: levETIRAcetam 500 MG/5 ML LIQUID UDC GT SCH ×2 (09:54→21:30)
[2022-12-04] MEDS: TRIAMCINOLONE ACET 0.1% CREAM 15 GM TUBE TP SCH ×2 (09:54→21:30)
[2022-12-04] MEDS: NYSTATIN CREAM 30 GM TUBE TP SCH ×2 (09:54→21:30)
[2022-12-04] MEDS: POTASSIUM CHLORIDE 40 MEQ/30 ML LIQUID UDC GT SCH (09:54)
[2022-12-04 20:00] VITALS: TEMP 99.2
[2022-12-04] MEDS: THIAMINE HCL 100 MG TABLET GT SCH (21:30)
[2022-12-04] MEDS: CHOLECALCIFEROL 1,000 UNIT TABLET GT SCH (21:30)
[2022-12-04] MEDS: FOLIC ACID 1 MG TABLET GT SCH (21:30)
[2022-12-05] MEDS: IPRATROPIUM BROMIDE 0.5 MG/2.5 ML NEBU NEB SCH ×6 (03:24→23:10)
[2022-12-05] MEDS: ALBUTEROL SULFATE 2.5 MG/3 ML NEBU NEB SCH ×6 (03:24→23:10)
[2022-12-05] MEDS: MIDODRINE HCL 10 MG TABLET GT SCH ×3 (06:00→21:30)
[2022-12-05] MEDS: MAGNESIUM OXIDE 400 MG TABLET GT SCH (06:26)
[2022-12-05] MEDS: BACLOFEN 20 MG TABLET GT SCH ×3 (06:26→21:30)
[2022-12-05 06:27] VITALS: BP 122/72; O2SAT 99
[2022-12-05] MEDS: OMEPRAZOLE 20 MG CAPSULE.DR GT SCH (06:27)
[2022-12-05] MEDS: METOCLOPRAMIDE HCL 5 MG TABLET GT SCH ×3 (06:27→21:30)
[2022-12-05 07:45] VITALS: TEMP 96.4
[2022-12-05] MEDS: HYDROGEN PEROXIDE 3% 118 ML BOTTLE TP SCH ×2 (09:00→19:07)
[2022-12-05] MEDS: TRIAMCINOLONE ACET 0.1% CREAM 15 GM TUBE TP SCH ×2 (09:00→21:30)
[2022-12-05] MEDS: NYSTATIN CREAM 30 GM TUBE TP SCH ×2 (09:00→21:30)
[2022-12-05] MEDS: FERROUS SULFATE 330 MG/7.5 ML UDC- FOR SA ONLY GT SCH ×2 (09:55→21:29)
[2022-12-05] MEDS: PHENYTOIN 100 MG/4 ML UDC GT SCH ×2 (09:55→21:29)
[2022-12-05] MEDS: ACIDOPHILUS/BULGARICUS CHEW TAB GT SCH ×2 (09:56→21:29)
[2022-12-05] MEDS: FUROSEMIDE 10 MG/ML GT SCH (09:58)
[2022-12-05] MEDS: levETIRAcetam 500 MG/5 ML LIQUID UDC GT SCH ×2 (09:58→21:29)
[2022-12-05] MEDS: POTASSIUM CHLORIDE 40 MEQ/30 ML LIQUID UDC GT SCH (09:59)
[2022-12-05] MEDS: REMEDY ESSENTIAL ZINC PASTE 113 GM TP SCH ×2 (09:59→21:30)
[2022-12-05] MEDS: VITAL AF 1.2 1,000 ML LIQUID GT PRN (15:51)
[2022-12-05] MEDS: FOLIC ACID 1 MG TABLET GT SCH (21:29)
[2022-12-05] MEDS: MIRALAX 17 GM POWD.PACK GT SCH (21:30)
[2022-12-05] MEDS: THIAMINE HCL 100 MG TABLET GT SCH (21:30)
[2022-12-05] MEDS: CHOLECALCIFEROL 1,000 UNIT TABLET GT SCH (21:30)
[2022-12-05 21:51] VITALS: TEMP 98.7
[2022-12-06] MEDS: ALBUTEROL SULFATE 2.5 MG/3 ML NEBU NEB SCH ×6 (03:33→23:22)
[2022-12-06] MEDS: IPRATROPIUM BROMIDE 0.5 MG/2.5 ML NEBU NEB SCH ×6 (03:33→23:22)
[2022-12-06] MEDS: MIDODRINE HCL 10 MG TABLET GT SCH ×3 (05:42→21:07)
[2022-12-06] MEDS: MAGNESIUM OXIDE 400 MG TABLET GT SCH (05:43)
[2022-12-06] MEDS: BACLOFEN 20 MG TABLET GT SCH ×3 (05:43→21:06)
[2022-12-06] MEDS: METOCLOPRAMIDE HCL 5 MG TABLET GT SCH ×3 (05:44→21:06)
[2022-12-06] MEDS: OMEPRAZOLE 20 MG CAPSULE.DR GT SCH (05:44)
[2022-12-06 08:00] VITALS: TEMP 98.8
[2022-12-06] MEDS: NYSTATIN CREAM 30 GM TUBE TP SCH ×2 (09:00→21:06)
[2022-12-06] MEDS: TRIAMCINOLONE ACET 0.1% CREAM 15 GM TUBE TP SCH ×2 (09:00→21:06)
[2022-12-06] MEDS: FERROUS SULFATE 330 MG/7.5 ML UDC- FOR SA ONLY GT SCH ×2 (09:00→20:58)
[2022-12-06] MEDS: PHENYTOIN 100 MG/4 ML UDC GT SCH ×2 (09:00→20:58)
[2022-12-06] MEDS: ACIDOPHILUS/BULGARICUS CHEW TAB GT SCH ×2 (09:00→20:59)
[2022-12-06] MEDS: FUROSEMIDE 10 MG/ML GT SCH (09:00)
[2022-12-06] MEDS: POTASSIUM CHLORIDE 40 MEQ/30 ML LIQUID UDC GT SCH (09:00)
[2022-12-06] MEDS: REMEDY ESSENTIAL ZINC PASTE 113 GM TP SCH ×2 (09:00→21:06)
[2022-12-06] MEDS: levETIRAcetam 500 MG/5 ML LIQUID UDC GT SCH ×2 (09:00→21:06)
[2022-12-06] MEDS: HYDROGEN PEROXIDE 3% 118 ML BOTTLE TP SCH ×2 (10:00→19:18)
[2022-12-06 20:00] VITALS: TEMP 97.4
[2022-12-06] MEDS: FOLIC ACID 1 MG TABLET GT SCH (21:00)
[2022-12-06] MEDS: CHOLECALCIFEROL 1,000 UNIT TABLET GT SCH (21:06)
[2022-12-06] MEDS: THIAMINE HCL 100 MG TABLET GT SCH (21:06)
[2022-12-07] MEDS: ALBUTEROL SULFATE 2.5 MG/3 ML NEBU NEB SCH ×6 (03:04→23:25)
[2022-12-07] MEDS: IPRATROPIUM BROMIDE 0.5 MG/2.5 ML NEBU NEB SCH ×6 (03:04→23:25)
[2022-12-07] MEDS: BACLOFEN 20 MG TABLET GT SCH ×3 (06:04→21:28)
[2022-12-07] MEDS: MAGNESIUM OXIDE 400 MG TABLET GT SCH (06:04)
[2022-12-07] MEDS: MIDODRINE HCL 10 MG TABLET GT SCH ×3 (06:05→21:28)
[2022-12-07] MEDS: OMEPRAZOLE 20 MG CAPSULE.DR GT SCH (06:05)
[2022-12-07] MEDS: METOCLOPRAMIDE HCL 5 MG TABLET GT SCH ×3 (06:05→21:28)
[2022-12-07 06:38] VITALS: BP 112/66; O2SAT 99
[2022-12-07] MEDS: HYDROGEN PEROXIDE 3% 118 ML BOTTLE TP SCH ×2 (08:08→19:20)
[2022-12-07] MEDS: NYSTATIN POWDER 15 GM BOTTLE TP SCH (09:00)
[2022-12-07] MEDS: NYSTATIN CREAM 30 GM TUBE TP SCH ×2 (09:00→21:28)
[2022-12-07] MEDS: ACIDOPHILUS/BULGARICUS CHEW TAB GT SCH ×2 (09:00→21:28)
[2022-12-07] MEDS: POTASSIUM CHLORIDE 40 MEQ/30 ML LIQUID UDC GT SCH (09:00)
[2022-12-07] MEDS: FUROSEMIDE 10 MG/ML GT SCH (09:00)
[2022-12-07] MEDS: TRIAMCINOLONE ACET 0.1% CREAM 15 GM TUBE TP SCH ×2 (09:00→21:28)
[2022-12-07] MEDS: levETIRAcetam 500 MG/5 ML LIQUID UDC GT SCH ×2 (09:00→21:28)
[2022-12-07] MEDS: PHENYTOIN 100 MG/4 ML UDC GT SCH ×2 (09:57→21:27)
[2022-12-07] MEDS: FERROUS SULFATE 330 MG/7.5 ML UDC- FOR SA ONLY GT SCH ×2 (09:57→21:28)
[2022-12-07] MEDS: REMEDY ESSENTIAL ZINC PASTE 113 GM TP SCH ×2 (10:00→21:28)
[2022-12-07 11:26] VITALS: TEMP 97
[2022-12-07] MEDS: CHOLECALCIFEROL 1,000 UNIT TABLET GT SCH (21:28)
[2022-12-07] MEDS: FOLIC ACID 1 MG TABLET GT SCH (21:28)
[2022-12-07] MEDS: THIAMINE HCL 100 MG TABLET GT SCH (21:28)
[2022-12-07 21:42] VITALS: TEMP 97
[2022-12-08] MEDS: ALBUTEROL SULFATE 2.5 MG/3 ML NEBU NEB SCH ×6 (03:14→23:32)
[2022-12-08] MEDS: IPRATROPIUM BROMIDE 0.5 MG/2.5 ML NEBU NEB SCH ×6 (03:14→23:32)
[2022-12-08] MEDS: MIDODRINE HCL 10 MG TABLET GT SCH ×3 (05:28→21:24)
[2022-12-08] MEDS: BACLOFEN 20 MG TABLET GT SCH ×3 (05:28→21:19)
[2022-12-08] MEDS: OMEPRAZOLE 20 MG CAPSULE.DR GT SCH (05:28)
[2022-12-08] MEDS: MAGNESIUM OXIDE 400 MG TABLET GT SCH (05:28)
[2022-12-08] MEDS: METOCLOPRAMIDE HCL 5 MG TABLET GT SCH ×3 (05:28→21:24)
[2022-12-08 06:25] LABS: BASOPHILS # (AUTO) 0.1 K/UL (0.0-0.2); BASOPHILS % (AUTO) 1.4 % (0.0-2.0); EOSINOPHILS # (AUTO) 0.3 K/uL (0.0-0.7); EOSINOPHILS % (AUTO) 5.7 % (0.0-7.0); HEMATOCRIT 35.8 % (31.2-41.9); HEMOGLOBIN 11.7 g/dL (10.9-14.3); LYMPHOCYTES # (AUTO) 1.5 K/uL (0.8-4.8); LYMPHOCYTES % (AUTO) 30.9 % (20.5-51.5); MEAN CORPUSCULAR HEMOGLOBIN 31.9 uug (24.7-32.8); MEAN CORPUSCULAR HGB CONC 33 g/dL (32.3-35.6); MEAN CORPUSCULAR VOLUME 97.2 fL (75.5-95.3); MONOCYTES # (AUTO) 0.4 K/uL (0.1-1.30); MONOCYTES % (AUTO) 7.3 % (0.0-11.0); NEUTROPHILS # (AUTO) 2.7 K/uL (1.8-8.9); NEUTROPHILS % (AUTO) 54.7 % (38.5-71.5); PLATELET COUNT (AUTO) 308 K/uL (179-408); RED BLOOD CELL COUNT(AUTO) 3.69 MIL/uL (3.63-4.92); RED CELL DISTRIBUTION WIDTH 17.4 % (12.3-17.7); WHITE BLOOD COUNT (AUTO) 4.9 K/uL (3.8-11.8)
[2022-12-08 06:49] LABS: DIFFERENTIAL COMMENT 1
[2022-12-08 07:22] LABS: CALCIUM 8.5 mg/dL (8.5-10.1); CREATININE 0.6 mg/dL (0.6-1.3); MAGNESIUM 2.1 mg/dL (1.8-2.4); PHOSPHOROUS 4.4 mg/dL (2.5-4.9); POTASSIUM 3.7 mmol/L (3.5-5.1)
[2022-12-08] MEDS: HYDROGEN PEROXIDE 3% 118 ML BOTTLE TP SCH ×2 (08:09→19:26)
[2022-12-08] MEDS: ACIDOPHILUS/BULGARICUS CHEW TAB GT SCH ×2 (08:59→21:16)
[2022-12-08] MEDS: levETIRAcetam 500 MG/5 ML LIQUID UDC GT SCH ×2 (09:00→21:19)
[2022-12-08] MEDS: PHENYTOIN 100 MG/4 ML UDC GT SCH ×2 (09:00→21:16)
[2022-12-08] MEDS: TRIAMCINOLONE ACET 0.1% CREAM 15 GM TUBE TP SCH ×2 (09:02→21:00)
[2022-12-08] MEDS: FERROUS SULFATE 330 MG/7.5 ML UDC- FOR SA ONLY GT SCH ×2 (09:02→21:16)
[2022-12-08] MEDS: NYSTATIN POWDER 15 GM BOTTLE TP SCH (09:03)
[2022-12-08] MEDS: NYSTATIN CREAM 30 GM TUBE TP SCH ×2 (09:03→21:00)
[2022-12-08] MEDS: REMEDY ESSENTIAL ZINC PASTE 113 GM TP SCH ×2 (09:03→21:19)
[2022-12-08] MEDS: FUROSEMIDE 10 MG/ML GT SCH (09:05)
[2022-12-08] MEDS: POTASSIUM CHLORIDE 40 MEQ/30 ML LIQUID UDC GT SCH (09:07)
[2022-12-08 11:23] VITALS: TEMP 97.4
[2022-12-08] MEDS: VITAL AF 1.2 1,000 ML LIQUID GT PRN (16:53)
[2022-12-08] MEDS: MIRALAX 17 GM POWD.PACK GT SCH (21:18)
[2022-12-08] MEDS: THIAMINE HCL 100 MG TABLET GT SCH (21:18)
[2022-12-08] MEDS: CHOLECALCIFEROL 1,000 UNIT TABLET GT SCH (21:18)
[2022-12-08 21:24] VITALS: BP 110/80; TEMP 97; O2SAT 100
[2022-12-08] MEDS: FOLIC ACID 1 MG TABLET GT SCH (21:25)
[2022-12-09] MEDS: ALBUTEROL SULFATE 2.5 MG/3 ML NEBU NEB SCH ×6 (03:32→23:09)
[2022-12-09] MEDS: IPRATROPIUM BROMIDE 0.5 MG/2.5 ML NEBU NEB SCH ×6 (03:32→23:09)
[2022-12-09] MEDS: MIDODRINE HCL 10 MG TABLET GT SCH ×3 (05:37→21:29)
[2022-12-09] MEDS: OMEPRAZOLE 20 MG CAPSULE.DR GT SCH (05:37)
[2022-12-09] MEDS: MAGNESIUM OXIDE 400 MG TABLET GT SCH (05:37)
[2022-12-09] MEDS: BACLOFEN 20 MG TABLET GT SCH ×3 (05:37→21:29)
[2022-12-09] MEDS: METOCLOPRAMIDE HCL 5 MG TABLET GT SCH ×3 (05:37→21:29)
[2022-12-09 06:54] VITALS: TEMP 96
[2022-12-09] MEDS: HYDROGEN PEROXIDE 3% 118 ML BOTTLE TP SCH ×2 (07:48→19:08)
[2022-12-09 08:00] VITALS: TEMP 97.6
[2022-12-09] MEDS: PHENYTOIN 100 MG/4 ML UDC GT SCH ×2 (09:16→21:28)
[2022-12-09] MEDS: FERROUS SULFATE 330 MG/7.5 ML UDC- FOR SA ONLY GT SCH ×2 (09:19→21:28)
[2022-12-09] MEDS: ACIDOPHILUS/BULGARICUS CHEW TAB GT SCH ×2 (09:21→21:28)
[2022-12-09] MEDS: FUROSEMIDE 10 MG/ML GT SCH (09:23)
[2022-12-09] MEDS: levETIRAcetam 500 MG/5 ML LIQUID UDC GT SCH ×2 (09:24→21:28)
[2022-12-09] MEDS: POTASSIUM CHLORIDE 40 MEQ/30 ML LIQUID UDC GT SCH (09:28)
[2022-12-09] MEDS: REMEDY ESSENTIAL ZINC PASTE 113 GM TP SCH ×2 (09:30→21:29)
[2022-12-09] MEDS: NYSTATIN CREAM 30 GM TUBE TP SCH ×2 (09:30→21:29)
[2022-12-09] MEDS: NYSTATIN POWDER 15 GM BOTTLE TP SCH (09:30)
[2022-12-09] MEDS: TRIAMCINOLONE ACET 0.1% CREAM 15 GM TUBE TP SCH ×2 (09:33→21:29)
[2022-12-09 20:00] VITALS: TEMP 97.4
[2022-12-09] MEDS: FOLIC ACID 1 MG TABLET GT SCH (21:28)
[2022-12-09] MEDS: THIAMINE HCL 100 MG TABLET GT SCH (21:28)
[2022-12-09] MEDS: CHOLECALCIFEROL 1,000 UNIT TABLET GT SCH (21:29)
[2022-12-10] MEDS: ALBUTEROL SULFATE 2.5 MG/3 ML NEBU NEB SCH ×6 (03:25→23:32)
[2022-12-10] MEDS: IPRATROPIUM BROMIDE 0.5 MG/2.5 ML NEBU NEB SCH ×6 (03:25→23:32)
[2022-12-10] MEDS: MIDODRINE HCL 10 MG TABLET GT SCH ×3 (05:10→21:41)
[2022-12-10] MEDS: OMEPRAZOLE 20 MG CAPSULE.DR GT SCH (05:10)
[2022-12-10] MEDS: METOCLOPRAMIDE HCL 5 MG TABLET GT SCH ×3 (05:10→21:41)
[2022-12-10] MEDS: BACLOFEN 20 MG TABLET GT SCH ×3 (05:10→21:40)
[2022-12-10] MEDS: MAGNESIUM OXIDE 400 MG TABLET GT SCH (05:10)
[2022-12-10] MEDS: HYDROGEN PEROXIDE 3% 118 ML BOTTLE TP SCH ×2 (07:26→19:00)
[2022-12-10 07:33] VITALS: TEMP 97
[2022-12-10] MEDS: NYSTATIN POWDER 15 GM BOTTLE TP SCH (09:00)
[2022-12-10] MEDS: PHENYTOIN 100 MG/4 ML UDC GT SCH ×2 (09:49→20:13)
[2022-12-10] MEDS: POTASSIUM CHLORIDE 40 MEQ/30 ML LIQUID UDC GT SCH (09:49)
[2022-12-10] MEDS: FERROUS SULFATE 330 MG/7.5 ML UDC- FOR SA ONLY GT SCH ×2 (09:49→20:16)
[2022-12-10] MEDS: ACIDOPHILUS/BULGARICUS CHEW TAB GT SCH ×2 (09:49→20:14)
[2022-12-10] MEDS: levETIRAcetam 500 MG/5 ML LIQUID UDC GT SCH ×2 (09:49→20:15)
[2022-12-10] MEDS: FUROSEMIDE 10 MG/ML GT SCH (09:49)
[2022-12-10] MEDS: REMEDY ESSENTIAL ZINC PASTE 113 GM TP SCH ×2 (09:50→20:18)
[2022-12-10] MEDS: TRIAMCINOLONE ACET 0.1% CREAM 15 GM TUBE TP SCH ×2 (09:50→20:17)
[2022-12-10] MEDS: NYSTATIN CREAM 30 GM TUBE TP SCH ×2 (09:50→20:17)
[2022-12-10] MEDS: VITAL AF 1.2 1,000 ML LIQUID GT PRN (11:25)
[2022-12-10] MEDS: THIAMINE HCL 100 MG TABLET GT SCH (20:17)
[2022-12-10] MEDS: MIRALAX 17 GM POWD.PACK GT SCH (20:17)
[2022-12-10] MEDS: FOLIC ACID 1 MG TABLET GT SCH (20:17)
[2022-12-10] MEDS: CHOLECALCIFEROL 1,000 UNIT TABLET GT SCH (20:17)
[2022-12-10 21:00] VITALS: TEMP 96
[2022-12-11] MEDS: ALBUTEROL SULFATE 2.5 MG/3 ML NEBU NEB SCH ×6 (03:21→23:15)
[2022-12-11] MEDS: IPRATROPIUM BROMIDE 0.5 MG/2.5 ML NEBU NEB SCH ×6 (03:21→23:15)
[2022-12-11] MEDS: MAGNESIUM OXIDE 400 MG TABLET GT SCH (05:48)
[2022-12-11] MEDS: BACLOFEN 20 MG TABLET GT SCH ×3 (05:48→21:00)
[2022-12-11] MEDS: MIDODRINE HCL 10 MG TABLET GT SCH ×3 (05:49→21:01)
[2022-12-11] MEDS: OMEPRAZOLE 20 MG CAPSULE.DR GT SCH (05:49)
[2022-12-11] MEDS: METOCLOPRAMIDE HCL 5 MG TABLET GT SCH ×3 (05:49→21:01)
[2022-12-11 08:00] VITALS: TEMP 96
[2022-12-11] MEDS: HYDROGEN PEROXIDE 3% 118 ML BOTTLE TP SCH ×2 (09:43→19:28)
[2022-12-11] MEDS: PHENYTOIN 100 MG/4 ML UDC GT SCH ×2 (09:48→21:00)
[2022-12-11] MEDS: ACIDOPHILUS/BULGARICUS CHEW TAB GT SCH ×2 (09:48→21:00)
[2022-12-11] MEDS: FERROUS SULFATE 330 MG/7.5 ML UDC- FOR SA ONLY GT SCH ×2 (09:48→21:00)
[2022-12-11] MEDS: FUROSEMIDE 10 MG/ML GT SCH (09:50)
[2022-12-11] MEDS: levETIRAcetam 500 MG/5 ML LIQUID UDC GT SCH ×2 (09:51→21:00)
[2022-12-11] MEDS: POTASSIUM CHLORIDE 40 MEQ/30 ML LIQUID UDC GT SCH (09:52)
[2022-12-11] MEDS: TRIAMCINOLONE ACET 0.1% CREAM 15 GM TUBE TP SCH ×2 (09:52→21:00)
[2022-12-11] MEDS: NYSTATIN POWDER 15 GM BOTTLE TP SCH (09:53)
[2022-12-11] MEDS: REMEDY ESSENTIAL ZINC PASTE 113 GM TP SCH ×2 (09:53→21:00)
[2022-12-11] MEDS: NYSTATIN CREAM 30 GM TUBE TP SCH ×2 (09:53→21:00)
[2022-12-11] MEDS: VITAL AF 1.2 1,000 ML LIQUID GT PRN (18:43)
[2022-12-11 21:00] VITALS: TEMP 97.4
[2022-12-11] MEDS: FOLIC ACID 1 MG TABLET GT SCH (21:00)
[2022-12-11] MEDS: CHOLECALCIFEROL 1,000 UNIT TABLET GT SCH (21:00)
[2022-12-11] MEDS: THIAMINE HCL 100 MG TABLET GT SCH (21:00)
[2022-12-12] MEDS: IPRATROPIUM BROMIDE 0.5 MG/2.5 ML NEBU NEB SCH ×6 (03:21→23:23)
[2022-12-12] MEDS: ALBUTEROL SULFATE 2.5 MG/3 ML NEBU NEB SCH ×6 (03:21→23:23)
[2022-12-12] MEDS: OMEPRAZOLE 20 MG CAPSULE.DR GT SCH (05:57)
[2022-12-12] MEDS: MAGNESIUM OXIDE 400 MG TABLET GT SCH (05:57)
[2022-12-12] MEDS: BACLOFEN 20 MG TABLET GT SCH ×3 (05:57→21:59)
[2022-12-12] MEDS: MIDODRINE HCL 10 MG TABLET GT SCH ×3 (05:57→22:00)
[2022-12-12] MEDS: METOCLOPRAMIDE HCL 5 MG TABLET GT SCH ×3 (05:57→22:00)
[2022-12-12 08:00] VITALS: TEMP 96
[2022-12-12] MEDS: POTASSIUM CHLORIDE 40 MEQ/30 ML LIQUID UDC GT SCH (09:00)
[2022-12-12] MEDS: NYSTATIN CREAM 30 GM TUBE TP SCH ×2 (09:00→20:41)
[2022-12-12] MEDS: FERROUS SULFATE 330 MG/7.5 ML UDC- FOR SA ONLY GT SCH ×2 (09:00→20:40)
[2022-12-12] MEDS: TRIAMCINOLONE ACET 0.1% CREAM 15 GM TUBE TP SCH ×2 (09:00→20:41)
[2022-12-12] MEDS: ACIDOPHILUS/BULGARICUS CHEW TAB GT SCH ×2 (09:00→20:40)
[2022-12-12] MEDS: FUROSEMIDE 10 MG/ML GT SCH (09:00)
[2022-12-12] MEDS: NYSTATIN POWDER 15 GM BOTTLE TP SCH (09:00)
[2022-12-12] MEDS: PHENYTOIN 100 MG/4 ML UDC GT SCH ×2 (09:00→20:40)
[2022-12-12] MEDS: HYDROGEN PEROXIDE 3% 118 ML BOTTLE TP SCH ×2 (09:00→19:07)
[2022-12-12] MEDS: REMEDY ESSENTIAL ZINC PASTE 113 GM TP SCH ×2 (09:00→20:41)
[2022-12-12] MEDS: levETIRAcetam 500 MG/5 ML LIQUID UDC GT SCH ×2 (09:00→20:41)
[2022-12-12] MEDS: ACETAMINOPHEN 650 MG/20 ML UDC- SA PATIENTS-PAIN ONLY GT PRN (15:26)
[2022-12-12] MEDS: MIRALAX 17 GM POWD.PACK GT SCH (20:41)
[2022-12-12] MEDS: THIAMINE HCL 100 MG TABLET GT SCH (20:41)
[2022-12-12] MEDS: FOLIC ACID 1 MG TABLET GT SCH (20:41)
[2022-12-12] MEDS: CHOLECALCIFEROL 1,000 UNIT TABLET GT SCH (20:41)
[2022-12-13] MEDS: IPRATROPIUM BROMIDE 0.5 MG/2.5 ML NEBU NEB SCH ×6 (03:29→23:02)
[2022-12-13] MEDS: ALBUTEROL SULFATE 2.5 MG/3 ML NEBU NEB SCH ×6 (03:29→23:02)
[2022-12-13] MEDS: VITAL AF 1.2 1,000 ML LIQUID GT PRN (04:33)
[2022-12-13 05:33] VITALS: TEMP 96.2
[2022-12-13] MEDS: MAGNESIUM OXIDE 400 MG TABLET GT SCH (05:42)
[2022-12-13] MEDS: MIDODRINE HCL 10 MG TABLET GT SCH ×3 (05:42→21:26)
[2022-12-13] MEDS: BACLOFEN 20 MG TABLET GT SCH ×3 (05:42→21:26)
[2022-12-13] MEDS: OMEPRAZOLE 20 MG CAPSULE.DR GT SCH (05:43)
[2022-12-13] MEDS: METOCLOPRAMIDE HCL 5 MG TABLET GT SCH ×3 (05:43→21:26)
[2022-12-13] MEDS: HYDROGEN PEROXIDE 3% 118 ML BOTTLE TP SCH ×2 (07:34→19:07)
[2022-12-13 07:58] VITALS: TEMP 98.3
[2022-12-13] MEDS: FERROUS SULFATE 330 MG/7.5 ML UDC- FOR SA ONLY GT SCH ×2 (08:33→21:23)
[2022-12-13] MEDS: ACIDOPHILUS/BULGARICUS CHEW TAB GT SCH ×2 (08:37→21:23)
[2022-12-13] MEDS: FUROSEMIDE 10 MG/ML GT SCH (08:39)
[2022-12-13] MEDS: levETIRAcetam 500 MG/5 ML LIQUID UDC GT SCH ×2 (08:40→21:23)
[2022-12-13] MEDS: POTASSIUM CHLORIDE 40 MEQ/30 ML LIQUID UDC GT SCH (08:41)
[2022-12-13] MEDS: TRIAMCINOLONE ACET 0.1% CREAM 15 GM TUBE TP SCH ×2 (08:42→21:25)
[2022-12-13] MEDS: NYSTATIN CREAM 30 GM TUBE TP SCH ×2 (08:42→21:26)
[2022-12-13] MEDS: NYSTATIN POWDER 15 GM BOTTLE TP SCH (08:42)
[2022-12-13] MEDS: REMEDY ESSENTIAL ZINC PASTE 113 GM TP SCH ×2 (08:43→21:26)
[2022-12-13] MEDS: PHENYTOIN 100 MG/4 ML UDC GT SCH ×2 (08:47→21:23)
[2022-12-13] MEDS: THIAMINE HCL 100 MG TABLET GT SCH (21:23)
[2022-12-13] MEDS: CHOLECALCIFEROL 1,000 UNIT TABLET GT SCH (21:23)
[2022-12-13] MEDS: FOLIC ACID 1 MG TABLET GT SCH (21:23)
[2022-12-13 23:02] VITALS: TEMP 98.8
[2022-12-14] MEDS: IPRATROPIUM BROMIDE 0.5 MG/2.5 ML NEBU NEB SCH ×6 (03:19→23:04)
[2022-12-14] MEDS: ALBUTEROL SULFATE 2.5 MG/3 ML NEBU NEB SCH ×6 (03:19→23:04)
[2022-12-14] MEDS: BACLOFEN 20 MG TABLET GT SCH ×3 (05:59→21:00)
[2022-12-14] MEDS: MIDODRINE HCL 10 MG TABLET GT SCH ×3 (05:59→21:01)
[2022-12-14] MEDS: MAGNESIUM OXIDE 400 MG TABLET GT SCH (05:59)
[2022-12-14] MEDS: METOCLOPRAMIDE HCL 5 MG TABLET GT SCH ×3 (05:59→21:01)
[2022-12-14] MEDS: OMEPRAZOLE 20 MG CAPSULE.DR GT SCH (05:59)
[2022-12-14 06:03] LABS: ALANINE AMINOTRANSFERASE 55 U/L (14-59); ALBUMIN 2.4 g/dL (3.4-5.0); ALKALINE PHOSPHATASE 166 U/L (50-136); ASPARTATE AMINOTRANSFERASE 20 U/L (15-37); BILIRUBIN,TOTAL 0.1 mg/dL (0.2-1.0); CALCIUM 8.5 mg/dL (8.5-10.1); CARBON DIOXIDE 20 mmol/L (21-32); CHLORIDE 106 mmol/L (98-107); CREATININE 0.5 mg/dL (0.6-1.3); GLUCOSE 90 mg/dL (74-106); POTASSIUM 3.5 mmol/L (3.5-5.1); SODIUM SERUM 138 mmol/L (136-145); TOTAL PROTEIN, SERUM 7.3 g/dL (6.4-8.2); UREA NITROGEN, BLOOD 14 mg/dL (7-18)
[2022-12-14] MEDS: HYDROGEN PEROXIDE 3% 118 ML BOTTLE TP SCH ×2 (07:52→19:37)
[2022-12-14 08:01] VITALS: TEMP 98.6
[2022-12-14] MEDS: ACIDOPHILUS/BULGARICUS CHEW TAB GT SCH ×2 (09:03→21:00)
[2022-12-14] MEDS: PHENYTOIN 100 MG/4 ML UDC GT SCH ×2 (09:03→21:00)
[2022-12-14] MEDS: levETIRAcetam 500 MG/5 ML LIQUID UDC GT SCH ×2 (09:03→21:00)
[2022-12-14] MEDS: TRIAMCINOLONE ACET 0.1% CREAM 15 GM TUBE TP SCH ×2 (09:03→21:00)
[2022-12-14] MEDS: NYSTATIN POWDER 15 GM BOTTLE TP SCH (09:03)
[2022-12-14] MEDS: FERROUS SULFATE 330 MG/7.5 ML UDC- FOR SA ONLY GT SCH ×2 (09:03→21:00)
[2022-12-14] MEDS: POTASSIUM CHLORIDE 40 MEQ/30 ML LIQUID UDC GT SCH (09:03)
[2022-12-14] MEDS: NYSTATIN CREAM 30 GM TUBE TP SCH ×2 (09:03→21:00)
[2022-12-14] MEDS: REMEDY ESSENTIAL ZINC PASTE 113 GM TP SCH ×2 (09:03→21:00)
[2022-12-14] MEDS: FUROSEMIDE 10 MG/ML GT SCH (09:03)
[2022-12-14 19:56] VITALS: TEMP 98.7
[2022-12-14] MEDS: CHOLECALCIFEROL 1,000 UNIT TABLET GT SCH (21:00)
[2022-12-14] MEDS: THIAMINE HCL 100 MG TABLET GT SCH (21:00)
[2022-12-14] MEDS: FOLIC ACID 1 MG TABLET GT SCH (21:00)
[2022-12-15] MEDS: ALBUTEROL SULFATE 2.5 MG/3 ML NEBU NEB SCH ×6 (03:16→23:20)
[2022-12-15] MEDS: IPRATROPIUM BROMIDE 0.5 MG/2.5 ML NEBU NEB SCH ×6 (03:16→23:20)
[2022-12-15] MEDS: MIDODRINE HCL 10 MG TABLET GT SCH ×3 (05:45→22:04)
[2022-12-15] MEDS: BACLOFEN 20 MG TABLET GT SCH ×3 (05:45→22:04)
[2022-12-15] MEDS: METOCLOPRAMIDE HCL 5 MG TABLET GT SCH ×3 (05:45→22:04)
[2022-12-15] MEDS: MAGNESIUM OXIDE 400 MG TABLET GT SCH (05:45)
[2022-12-15] MEDS: OMEPRAZOLE 20 MG CAPSULE.DR GT SCH (05:45)
[2022-12-15 07:36] VITALS: TEMP 98
[2022-12-15] MEDS: HYDROGEN PEROXIDE 3% 118 ML BOTTLE TP SCH ×2 (08:11→19:14)
[2022-12-15] MEDS: NYSTATIN CREAM 30 GM TUBE TP SCH ×2 (08:29→20:50)
[2022-12-15] MEDS: PHENYTOIN 100 MG/4 ML UDC GT SCH ×2 (08:29→20:50)
[2022-12-15] MEDS: ACIDOPHILUS/BULGARICUS CHEW TAB GT SCH ×2 (08:29→20:50)
[2022-12-15] MEDS: FERROUS SULFATE 330 MG/7.5 ML UDC- FOR SA ONLY GT SCH ×2 (08:29→20:50)
[2022-12-15] MEDS: levETIRAcetam 500 MG/5 ML LIQUID UDC GT SCH ×2 (08:29→20:50)
[2022-12-15] MEDS: REMEDY ESSENTIAL ZINC PASTE 113 GM TP SCH ×2 (08:29→20:50)
[2022-12-15] MEDS: TRIAMCINOLONE ACET 0.1% CREAM 15 GM TUBE TP SCH ×2 (08:29→20:50)
[2022-12-15] MEDS: NYSTATIN POWDER 15 GM BOTTLE TP SCH (08:29)
[2022-12-15] MEDS: FUROSEMIDE 10 MG/ML GT SCH (08:29)
[2022-12-15] MEDS: POTASSIUM CHLORIDE 40 MEQ/30 ML LIQUID UDC GT SCH (08:29)
[2022-12-15 20:28] VITALS: TEMP 99.1
[2022-12-15] MEDS: THIAMINE HCL 100 MG TABLET GT SCH (20:50)
[2022-12-15] MEDS: FOLIC ACID 1 MG TABLET GT SCH (20:50)
[2022-12-15] MEDS: MIRALAX 17 GM POWD.PACK GT SCH (20:50)
[2022-12-15] MEDS: CHOLECALCIFEROL 1,000 UNIT TABLET GT SCH (20:50)
[2022-12-16] MEDS: ALBUTEROL SULFATE 2.5 MG/3 ML NEBU NEB SCH ×6 (03:19→23:35)
[2022-12-16] MEDS: IPRATROPIUM BROMIDE 0.5 MG/2.5 ML NEBU NEB SCH ×6 (03:19→23:35)
[2022-12-16] MEDS: BACLOFEN 20 MG TABLET GT SCH ×3 (05:26→21:20)
[2022-12-16] MEDS: OMEPRAZOLE 20 MG CAPSULE.DR GT SCH (05:26)
[2022-12-16] MEDS: MIDODRINE HCL 10 MG TABLET GT SCH ×3 (05:26→21:21)
[2022-12-16] MEDS: MAGNESIUM OXIDE 400 MG TABLET GT SCH (05:26)
[2022-12-16] MEDS: METOCLOPRAMIDE HCL 5 MG TABLET GT SCH ×3 (05:26→21:21)
[2022-12-16] MEDS: HYDROGEN PEROXIDE 3% 118 ML BOTTLE TP SCH ×2 (08:09→19:18)
[2022-12-16] MEDS: PHENYTOIN 100 MG/4 ML UDC GT SCH ×2 (09:15→21:16)
[2022-12-16] MEDS: ACIDOPHILUS/BULGARICUS CHEW TAB GT SCH ×2 (09:16→21:17)
[2022-12-16] MEDS: FERROUS SULFATE 330 MG/7.5 ML UDC- FOR SA ONLY GT SCH ×2 (09:16→21:17)
[2022-12-16] MEDS: levETIRAcetam 500 MG/5 ML LIQUID UDC GT SCH ×2 (09:17→21:17)
[2022-12-16] MEDS: FUROSEMIDE 10 MG/ML GT SCH (09:17)
[2022-12-16] MEDS: POTASSIUM CHLORIDE 40 MEQ/30 ML LIQUID UDC GT SCH (09:17)
[2022-12-16 09:21] VITALS: TEMP 98.3
[2022-12-16] MEDS: REMEDY ESSENTIAL ZINC PASTE 113 GM TP SCH ×2 (09:22→21:20)
[2022-12-16] MEDS: TRIAMCINOLONE ACET 0.1% CREAM 15 GM TUBE TP SCH ×2 (09:22→21:20)
[2022-12-16] MEDS: NYSTATIN POWDER 15 GM BOTTLE TP SCH (09:22)
[2022-12-16] MEDS: NYSTATIN CREAM 30 GM TUBE TP SCH ×2 (09:22→21:20)
[2022-12-16] MEDS: FOLIC ACID 1 MG TABLET GT SCH (21:17)
[2022-12-16] MEDS: THIAMINE HCL 100 MG TABLET GT SCH (21:19)
[2022-12-16] MEDS: CHOLECALCIFEROL 1,000 UNIT TABLET GT SCH (21:19)
[2022-12-16 23:40] VITALS: TEMP 98
[2022-12-17] MEDS: VITAL AF 1.2 1,000 ML LIQUID GT PRN (01:29)
[2022-12-17] MEDS: IPRATROPIUM BROMIDE 0.5 MG/2.5 ML NEBU NEB SCH ×6 (03:31→23:34)
[2022-12-17] MEDS: ALBUTEROL SULFATE 2.5 MG/3 ML NEBU NEB SCH ×6 (03:31→23:34)
[2022-12-17] MEDS: MAGNESIUM OXIDE 400 MG TABLET GT SCH (05:52)
[2022-12-17] MEDS: BACLOFEN 20 MG TABLET GT SCH ×3 (05:52→21:31)
[2022-12-17] MEDS: OMEPRAZOLE 20 MG CAPSULE.DR GT SCH (05:53)
[2022-12-17] MEDS: METOCLOPRAMIDE HCL 5 MG TABLET GT SCH ×3 (05:53→21:32)
[2022-12-17] MEDS: MIDODRINE HCL 10 MG TABLET GT SCH ×3 (05:53→21:31)
[2022-12-17] MEDS: HYDROGEN PEROXIDE 3% 118 ML BOTTLE TP SCH ×2 (08:14→19:00)
[2022-12-17] MEDS: PHENYTOIN 100 MG/4 ML UDC GT SCH ×2 (08:27→21:30)
[2022-12-17] MEDS: FERROUS SULFATE 330 MG/7.5 ML UDC- FOR SA ONLY GT SCH ×2 (08:28→21:30)
[2022-12-17] MEDS: levETIRAcetam 500 MG/5 ML LIQUID UDC GT SCH ×2 (08:28→21:30)
[2022-12-17] MEDS: ACIDOPHILUS/BULGARICUS CHEW TAB GT SCH ×2 (08:28→21:30)
[2022-12-17] MEDS: FUROSEMIDE 10 MG/ML GT SCH (08:28)
[2022-12-17] MEDS: POTASSIUM CHLORIDE 40 MEQ/30 ML LIQUID UDC GT SCH (08:29)
[2022-12-17] MEDS: NYSTATIN CREAM 30 GM TUBE TP SCH ×2 (08:29→21:30)
[2022-12-17] MEDS: TRIAMCINOLONE ACET 0.1% CREAM 15 GM TUBE TP SCH ×2 (08:29→21:30)
[2022-12-17] MEDS: NYSTATIN POWDER 15 GM BOTTLE TP SCH (08:29)
[2022-12-17] MEDS: REMEDY ESSENTIAL ZINC PASTE 113 GM TP SCH ×2 (08:29→21:31)
[2022-12-17 11:00] VITALS: TEMP 97.6
[2022-12-17] MEDS: ACETAMINOPHEN 650 MG/20 ML UDC- SA PATIENTS-PAIN ONLY GT PRN (16:30)
[2022-12-17 20:08] VITALS: TEMP 97.6
[2022-12-17] MEDS: CHOLECALCIFEROL 1,000 UNIT TABLET GT SCH (21:30)
[2022-12-17] MEDS: MIRALAX 17 GM POWD.PACK GT SCH (21:30)
[2022-12-17] MEDS: FOLIC ACID 1 MG TABLET GT SCH (21:30)
[2022-12-17] MEDS: THIAMINE HCL 100 MG TABLET GT SCH (21:30)
[2022-12-18] MEDS: IPRATROPIUM BROMIDE 0.5 MG/2.5 ML NEBU NEB SCH ×5 (03:44→19:20)
[2022-12-18] MEDS: ALBUTEROL SULFATE 2.5 MG/3 ML NEBU NEB SCH ×5 (03:44→19:20)
[2022-12-18] MEDS: OMEPRAZOLE 20 MG CAPSULE.DR GT SCH (05:54)
[2022-12-18] MEDS: MAGNESIUM OXIDE 400 MG TABLET GT SCH (05:54)
[2022-12-18] MEDS: METOCLOPRAMIDE HCL 5 MG TABLET GT SCH ×3 (05:54→22:09)
[2022-12-18] MEDS: MIDODRINE HCL 10 MG TABLET GT SCH ×3 (05:54→22:09)
[2022-12-18] MEDS: BACLOFEN 20 MG TABLET GT SCH ×3 (05:54→22:08)
[2022-12-18] MEDS: HYDROGEN PEROXIDE 3% 118 ML BOTTLE TP SCH ×2 (07:57→21:23)
[2022-12-18 08:00] VITALS: TEMP 96.8
[2022-12-18] MEDS: REMEDY ESSENTIAL ZINC PASTE 113 GM TP SCH ×2 (09:00→20:57)
[2022-12-18] MEDS: NYSTATIN CREAM 30 GM TUBE TP SCH ×2 (09:00→20:57)
[2022-12-18] MEDS: TRIAMCINOLONE ACET 0.1% CREAM 15 GM TUBE TP SCH ×2 (09:00→20:57)
[2022-12-18] MEDS: NYSTATIN POWDER 15 GM BOTTLE TP SCH (09:00)
[2022-12-18] MEDS: PHENYTOIN 100 MG/4 ML UDC GT SCH ×2 (09:30→20:55)
[2022-12-18] MEDS: FERROUS SULFATE 330 MG/7.5 ML UDC- FOR SA ONLY GT SCH ×2 (09:31→20:55)
[2022-12-18] MEDS: ACIDOPHILUS/BULGARICUS CHEW TAB GT SCH ×2 (09:31→20:55)
[2022-12-18] MEDS: FUROSEMIDE 10 MG/ML GT SCH (09:33)
[2022-12-18] MEDS: levETIRAcetam 500 MG/5 ML LIQUID UDC GT SCH ×2 (09:33→20:55)
[2022-12-18] MEDS: POTASSIUM CHLORIDE 40 MEQ/30 ML LIQUID UDC GT SCH (09:34)
[2022-12-18 20:00] VITALS: TEMP 97.8
[2022-12-18] MEDS: FOLIC ACID 1 MG TABLET GT SCH (20:55)
[2022-12-18] MEDS: THIAMINE HCL 100 MG TABLET GT SCH (20:56)
[2022-12-18] MEDS: CHOLECALCIFEROL 1,000 UNIT TABLET GT SCH (20:56)
[2022-12-19] MEDS: IPRATROPIUM BROMIDE 0.5 MG/2.5 ML NEBU NEB SCH ×7 (00:22→23:35)
[2022-12-19] MEDS: ALBUTEROL SULFATE 2.5 MG/3 ML NEBU NEB SCH ×7 (00:22→23:35)
[2022-12-19] MEDS: VITAL AF 1.2 1,000 ML LIQUID GT PRN (00:35)
[2022-12-19] MEDS: MAGNESIUM OXIDE 400 MG TABLET GT SCH (05:44)
[2022-12-19] MEDS: OMEPRAZOLE 20 MG CAPSULE.DR GT SCH (05:44)
[2022-12-19] MEDS: BACLOFEN 20 MG TABLET GT SCH ×3 (05:44→22:11)
[2022-12-19] MEDS: MIDODRINE HCL 10 MG TABLET GT SCH ×3 (05:44→22:00)
[2022-12-19] MEDS: METOCLOPRAMIDE HCL 5 MG TABLET GT SCH ×3 (05:44→22:00)
[2022-12-19] MEDS: HYDROGEN PEROXIDE 3% 118 ML BOTTLE TP SCH ×2 (07:42→20:26)
[2022-12-19 08:00] VITALS: TEMP 96.6
[2022-12-19] MEDS: PHENYTOIN 100 MG/4 ML UDC GT SCH ×2 (09:23→21:00)
[2022-12-19] MEDS: FERROUS SULFATE 330 MG/7.5 ML UDC- FOR SA ONLY GT SCH ×2 (09:23→21:00)
[2022-12-19] MEDS: ACIDOPHILUS/BULGARICUS CHEW TAB GT SCH ×2 (09:24→21:00)
[2022-12-19] MEDS: FUROSEMIDE 10 MG/ML GT SCH (09:25)
[2022-12-19] MEDS: POTASSIUM CHLORIDE 40 MEQ/30 ML LIQUID UDC GT SCH (09:27)
[2022-12-19] MEDS: levETIRAcetam 500 MG/5 ML LIQUID UDC GT SCH ×2 (09:27→21:00)
[2022-12-19] MEDS: REMEDY ESSENTIAL ZINC PASTE 113 GM TP SCH ×2 (09:27→21:00)
[2022-12-19] MEDS: NYSTATIN POWDER 15 GM BOTTLE TP SCH (09:27)
[2022-12-19] MEDS: TRIAMCINOLONE ACET 0.1% CREAM 15 GM TUBE TP SCH ×2 (09:27→21:00)
[2022-12-19] MEDS: NYSTATIN CREAM 30 GM TUBE TP SCH ×2 (09:27→21:00)
[2022-12-19 21:00] VITALS: TEMP 98.3
[2022-12-19] MEDS: FOLIC ACID 1 MG TABLET GT SCH (21:00)
[2022-12-19] MEDS: MIRALAX 17 GM POWD.PACK GT SCH (21:00)
[2022-12-19] MEDS: THIAMINE HCL 100 MG TABLET GT SCH (21:00)
[2022-12-19] MEDS: CHOLECALCIFEROL 1,000 UNIT TABLET GT SCH (21:00)
[2022-12-20] MEDS: IPRATROPIUM BROMIDE 0.5 MG/2.5 ML NEBU NEB SCH ×6 (02:54→23:36)
[2022-12-20] MEDS: ALBUTEROL SULFATE 2.5 MG/3 ML NEBU NEB SCH ×6 (02:54→23:36)
[2022-12-20] MEDS: BACLOFEN 20 MG TABLET GT SCH ×3 (05:05→21:50)
[2022-12-20] MEDS: MAGNESIUM OXIDE 400 MG TABLET GT SCH (05:05)
[2022-12-20] MEDS: MIDODRINE HCL 10 MG TABLET GT SCH ×3 (05:06→21:50)
[2022-12-20] MEDS: METOCLOPRAMIDE HCL 5 MG TABLET GT SCH ×3 (05:06→21:50)
[2022-12-20] MEDS: OMEPRAZOLE 20 MG CAPSULE.DR GT SCH (05:06)
[2022-12-20] MEDS: HYDROGEN PEROXIDE 3% 118 ML BOTTLE TP SCH ×2 (07:27→19:17)
[2022-12-20 08:00] VITALS: TEMP 97.6
[2022-12-20] MEDS: PHENYTOIN 100 MG/4 ML UDC GT SCH ×2 (09:02→21:48)
[2022-12-20] MEDS: FERROUS SULFATE 330 MG/7.5 ML UDC- FOR SA ONLY GT SCH ×2 (09:03→21:49)
[2022-12-20] MEDS: ACIDOPHILUS/BULGARICUS CHEW TAB GT SCH ×2 (09:03→21:49)
[2022-12-20] MEDS: FUROSEMIDE 10 MG/ML GT SCH (09:04)
[2022-12-20] MEDS: levETIRAcetam 500 MG/5 ML LIQUID UDC GT SCH ×2 (09:05→21:49)
[2022-12-20] MEDS: POTASSIUM CHLORIDE 40 MEQ/30 ML LIQUID UDC GT SCH (09:06)
[2022-12-20] MEDS: TRIAMCINOLONE ACET 0.1% CREAM 15 GM TUBE TP SCH ×2 (09:06→21:49)
[2022-12-20] MEDS: NYSTATIN CREAM 30 GM TUBE TP SCH ×2 (09:06→21:49)
[2022-12-20] MEDS: REMEDY ESSENTIAL ZINC PASTE 113 GM TP SCH ×2 (09:06→21:49)
[2022-12-20 20:00] VITALS: TEMP 98.2
[2022-12-20] MEDS: THIAMINE HCL 100 MG TABLET GT SCH (21:49)
[2022-12-20] MEDS: FOLIC ACID 1 MG TABLET GT SCH (21:49)
[2022-12-20] MEDS: CHOLECALCIFEROL 1,000 UNIT TABLET GT SCH (21:49)
[2022-12-21] MEDS: ALBUTEROL SULFATE 2.5 MG/3 ML NEBU NEB SCH ×6 (03:03→23:47)
[2022-12-21] MEDS: IPRATROPIUM BROMIDE 0.5 MG/2.5 ML NEBU NEB SCH ×6 (03:03→23:47)
[2022-12-21] MEDS: BACLOFEN 20 MG TABLET GT SCH ×3 (05:23→21:19)
[2022-12-21] MEDS: MAGNESIUM OXIDE 400 MG TABLET GT SCH (05:23)
[2022-12-21] MEDS: METOCLOPRAMIDE HCL 5 MG TABLET GT SCH ×3 (05:24→21:19)
[2022-12-21] MEDS: MIDODRINE HCL 10 MG TABLET GT SCH ×3 (05:24→21:19)
[2022-12-21] MEDS: OMEPRAZOLE 20 MG CAPSULE.DR GT SCH (05:24)
[2022-12-21] MEDS: HYDROGEN PEROXIDE 3% 118 ML BOTTLE TP SCH ×2 (08:05→19:17)
[2022-12-21] MEDS: ACIDOPHILUS/BULGARICUS CHEW TAB GT SCH ×2 (08:45→20:37)
[2022-12-21] MEDS: FERROUS SULFATE 330 MG/7.5 ML UDC- FOR SA ONLY GT SCH ×2 (08:45→20:36)
[2022-12-21] MEDS: FUROSEMIDE 10 MG/ML GT SCH (08:45)
[2022-12-21] MEDS: PHENYTOIN 100 MG/4 ML UDC GT SCH ×2 (08:45→20:35)
[2022-12-21] MEDS: levETIRAcetam 500 MG/5 ML LIQUID UDC GT SCH ×2 (08:46→20:41)
[2022-12-21] MEDS: POTASSIUM CHLORIDE 40 MEQ/30 ML LIQUID UDC GT SCH (08:46)
[2022-12-21] MEDS: NYSTATIN CREAM 30 GM TUBE TP SCH ×2 (08:47→20:44)
[2022-12-21] MEDS: REMEDY ESSENTIAL ZINC PASTE 113 GM TP SCH ×2 (08:47→20:44)
[2022-12-21] MEDS: TRIAMCINOLONE ACET 0.1% CREAM 15 GM TUBE TP SCH ×2 (08:47→20:41)
[2022-12-21 11:48] VITALS: TEMP 97
[2022-12-21] MEDS: VITAL AF 1.2 1,000 ML LIQUID GT PRN (14:51)
[2022-12-21 20:00] VITALS: TEMP 97.4
[2022-12-21] MEDS: FOLIC ACID 1 MG TABLET GT SCH (20:38)
[2022-12-21] MEDS: THIAMINE HCL 100 MG TABLET GT SCH (20:41)
[2022-12-21] MEDS: CHOLECALCIFEROL 1,000 UNIT TABLET GT SCH (20:41)
[2022-12-22] MEDS: ALBUTEROL SULFATE 2.5 MG/3 ML NEBU NEB SCH ×6 (03:26→23:30)
[2022-12-22] MEDS: IPRATROPIUM BROMIDE 0.5 MG/2.5 ML NEBU NEB SCH ×6 (03:26→23:30)
[2022-12-22] MEDS: MAGNESIUM OXIDE 400 MG TABLET GT SCH (05:16)
[2022-12-22] MEDS: MIDODRINE HCL 10 MG TABLET GT SCH ×3 (05:16→22:00)
[2022-12-22] MEDS: BACLOFEN 20 MG TABLET GT SCH ×3 (05:16→22:58)
[2022-12-22] MEDS: METOCLOPRAMIDE HCL 5 MG TABLET GT SCH ×3 (05:17→22:59)
[2022-12-22] MEDS: OMEPRAZOLE 20 MG CAPSULE.DR GT SCH (05:17)
[2022-12-22 07:21] LABS: HEMATOCRIT 33.2 % (31.2-41.9); HEMOGLOBIN 11.2 g/dL (10.9-14.3); MEAN CORPUSCULAR HGB CONC 34 g/dL (32.3-35.6); MEAN CORPUSCULAR VOLUME 94.5 fL (75.5-95.3); PLATELET COUNT (AUTO) 283 K/uL (179-408); RED BLOOD CELL COUNT(AUTO) 3.51 MIL/uL (3.63-4.92); RED CELL DISTRIBUTION WIDTH 16.4 % (12.3-17.7); WHITE BLOOD COUNT (AUTO) 8.9 K/uL (3.8-11.8)
[2022-12-22] MEDS: HYDROGEN PEROXIDE 3% 118 ML BOTTLE TP SCH ×2 (07:21→21:00)
[2022-12-22 07:22] LABS: BASOPHILS # (AUTO) 0.1 K/UL (0.0-0.2); BASOPHILS % (AUTO) 0.7 % (0.0-2.0); EOSINOPHILS # (AUTO) 0.5 K/uL (0.0-0.7); EOSINOPHILS % (AUTO) 5.9 % (0.0-7.0); LYMPHOCYTES # (AUTO) 1.9 K/uL (0.8-4.8); LYMPHOCYTES % (AUTO) 21.3 % (20.5-51.5); MONOCYTES # (AUTO) 0.4 K/uL (0.1-1.30); NEUTROPHILS % (AUTO) 67.1 % (38.5-71.5)
[2022-12-22 07:35] LABS: DIFFERENTIAL COMMENT 1
[2022-12-22 07:44] LABS: CALCIUM 8.7 mg/dL (8.5-10.1); CARBON DIOXIDE 21 mmol/L (21-32); CHLORIDE 108 mmol/L (98-107); CREATININE 0.4 mg/dL (0.6-1.3); GLUCOSE 106 mg/dL (74-106); MAGNESIUM 2.1 mg/dL (1.8-2.4); POTASSIUM 3.2 mmol/L (3.5-5.1); SODIUM SERUM 139 mmol/L (136-145); UREA NITROGEN, BLOOD 15 mg/dL (7-18)
[2022-12-22] MEDS: FERROUS SULFATE 330 MG/7.5 ML UDC- FOR SA ONLY GT SCH ×2 (09:05→20:23)
[2022-12-22] MEDS: PHENYTOIN 100 MG/4 ML UDC GT SCH ×2 (09:05→20:23)
[2022-12-22] MEDS: ACIDOPHILUS/BULGARICUS CHEW TAB GT SCH ×2 (09:06→20:24)
[2022-12-22] MEDS: levETIRAcetam 500 MG/5 ML LIQUID UDC GT SCH ×2 (09:07→20:24)
[2022-12-22] MEDS: POTASSIUM CHLORIDE 40 MEQ/30 ML LIQUID UDC GT SCH (09:08)
[2022-12-22] MEDS: NYSTATIN CREAM 30 GM TUBE TP SCH ×2 (09:09→20:26)
[2022-12-22] MEDS: TRIAMCINOLONE ACET 0.1% CREAM 15 GM TUBE TP SCH ×2 (09:09→20:26)
[2022-12-22] MEDS: REMEDY ESSENTIAL ZINC PASTE 113 GM TP SCH ×2 (09:11→20:26)
[2022-12-22] MEDS: FUROSEMIDE 10 MG/ML GT SCH (09:13)
[2022-12-22 11:17] VITALS: TEMP 97
[2022-12-22] MEDS ORDERED: POTASSIUM CHLORIDE 20 MEQ POWDER PACKET GT ONE (12:00)
[2022-12-22 20:00] VITALS: TEMP 97.7
[2022-12-22] MEDS: MIRALAX 17 GM POWD.PACK GT SCH (20:24)
[2022-12-22] MEDS: FOLIC ACID 1 MG TABLET GT SCH (20:24)
[2022-12-22] MEDS: CHOLECALCIFEROL 1,000 UNIT TABLET GT SCH (20:25)
[2022-12-22] MEDS: THIAMINE HCL 100 MG TABLET GT SCH (20:25)
[2022-12-23] MEDS: VITAL AF 1.2 1,000 ML LIQUID GT PRN (01:27)
[2022-12-23] MEDS: IPRATROPIUM BROMIDE 0.5 MG/2.5 ML NEBU NEB SCH ×6 (03:28→23:22)
[2022-12-23] MEDS: ALBUTEROL SULFATE 2.5 MG/3 ML NEBU NEB SCH ×6 (04:09→23:22)
[2022-12-23] MEDS: BACLOFEN 20 MG TABLET GT SCH ×3 (05:13→21:37)
[2022-12-23] MEDS: MAGNESIUM OXIDE 400 MG TABLET GT SCH (05:13)
[2022-12-23] MEDS: OMEPRAZOLE 20 MG CAPSULE.DR GT SCH (05:13)
[2022-12-23] MEDS: MIDODRINE HCL 10 MG TABLET GT SCH ×3 (05:13→21:39)
[2022-12-23] MEDS: METOCLOPRAMIDE HCL 5 MG TABLET GT SCH ×3 (05:13→21:39)
[2022-12-23] MEDS: HYDROGEN PEROXIDE 3% 118 ML BOTTLE TP SCH ×2 (07:45→19:18)
[2022-12-23 09:24] VITALS: TEMP 97.1
[2022-12-23] MEDS: PHENYTOIN 100 MG/4 ML UDC GT SCH ×2 (09:24→21:37)
[2022-12-23] MEDS: ACIDOPHILUS/BULGARICUS CHEW TAB GT SCH ×2 (09:25→21:37)
[2022-12-23] MEDS: FERROUS SULFATE 330 MG/7.5 ML UDC- FOR SA ONLY GT SCH ×2 (09:25→21:37)
[2022-12-23] MEDS: FUROSEMIDE 10 MG/ML GT SCH (09:27)
[2022-12-23] MEDS: levETIRAcetam 500 MG/5 ML LIQUID UDC GT SCH ×2 (09:27→21:37)
[2022-12-23] MEDS: POTASSIUM CHLORIDE 40 MEQ/30 ML LIQUID UDC GT SCH (09:31)
[2022-12-23] MEDS: REMEDY ESSENTIAL ZINC PASTE 113 GM TP SCH ×2 (09:31→21:37)
[2022-12-23] MEDS: TRIAMCINOLONE ACET 0.1% CREAM 15 GM TUBE TP SCH ×2 (09:31→21:37)
[2022-12-23] MEDS: NYSTATIN CREAM 30 GM TUBE TP SCH ×2 (09:31→21:37)
[2022-12-23 20:00] VITALS: TEMP 97.7
[2022-12-23] MEDS: FOLIC ACID 1 MG TABLET GT SCH (21:37)
[2022-12-23] MEDS: THIAMINE HCL 100 MG TABLET GT SCH (21:37)
[2022-12-23] MEDS: CHOLECALCIFEROL 1,000 UNIT TABLET GT SCH (21:37)
[2022-12-24] MEDS: IPRATROPIUM BROMIDE 0.5 MG/2.5 ML NEBU NEB SCH ×6 (03:03→23:27)
[2022-12-24] MEDS: ALBUTEROL SULFATE 2.5 MG/3 ML NEBU NEB SCH ×6 (03:03→23:27)
[2022-12-24] MEDS: METOCLOPRAMIDE HCL 5 MG TABLET GT SCH ×3 (05:31→21:23)
[2022-12-24] MEDS: OMEPRAZOLE 20 MG CAPSULE.DR GT SCH (05:31)
[2022-12-24] MEDS: MAGNESIUM OXIDE 400 MG TABLET GT SCH (05:31)
[2022-12-24] MEDS: MIDODRINE HCL 10 MG TABLET GT SCH ×3 (05:31→21:22)
[2022-12-24] MEDS: BACLOFEN 20 MG TABLET GT SCH ×3 (05:31→21:19)
[2022-12-24 07:37] VITALS: TEMP 96
[2022-12-24] MEDS: HYDROGEN PEROXIDE 3% 118 ML BOTTLE TP SCH ×2 (07:59→19:21)
[2022-12-24] MEDS: PHENYTOIN 100 MG/4 ML UDC GT SCH ×2 (09:07→21:10)
[2022-12-24] MEDS: levETIRAcetam 500 MG/5 ML LIQUID UDC GT SCH ×2 (09:09→21:10)
[2022-12-24] MEDS: POTASSIUM CHLORIDE 40 MEQ/30 ML LIQUID UDC GT SCH (09:09)
[2022-12-24] MEDS: FERROUS SULFATE 330 MG/7.5 ML UDC- FOR SA ONLY GT SCH ×2 (09:09→21:10)
[2022-12-24] MEDS: FUROSEMIDE 10 MG/ML GT SCH (09:09)
[2022-12-24] MEDS: ACIDOPHILUS/BULGARICUS CHEW TAB GT SCH ×2 (09:09→21:10)
[2022-12-24] MEDS: NYSTATIN CREAM 30 GM TUBE TP SCH ×2 (09:10→21:11)
[2022-12-24] MEDS: REMEDY ESSENTIAL ZINC PASTE 113 GM TP SCH ×2 (09:10→21:11)
[2022-12-24] MEDS: TRIAMCINOLONE ACET 0.1% CREAM 15 GM TUBE TP SCH ×2 (09:10→21:10)
[2022-12-24 20:00] VITALS: TEMP 97.8
[2022-12-24] MEDS: CHOLECALCIFEROL 1,000 UNIT TABLET GT SCH (21:10)
[2022-12-24] MEDS: FOLIC ACID 1 MG TABLET GT SCH (21:10)
[2022-12-24] MEDS: THIAMINE HCL 100 MG TABLET GT SCH (21:10)
[2022-12-24] MEDS: MIRALAX 17 GM POWD.PACK GT SCH (21:10)
[2022-12-25] MEDS: IPRATROPIUM BROMIDE 0.5 MG/2.5 ML NEBU NEB SCH ×6 (03:47→23:38)
[2022-12-25] MEDS: ALBUTEROL SULFATE 2.5 MG/3 ML NEBU NEB SCH ×6 (03:47→23:38)
[2022-12-25] MEDS: MAGNESIUM OXIDE 400 MG TABLET GT SCH (05:21)
[2022-12-25] MEDS: BACLOFEN 20 MG TABLET GT SCH ×3 (05:21→21:14)
[2022-12-25] MEDS: OMEPRAZOLE 20 MG CAPSULE.DR GT SCH (05:22)
[2022-12-25] MEDS: MIDODRINE HCL 10 MG TABLET GT SCH ×3 (05:22→21:15)
[2022-12-25] MEDS: METOCLOPRAMIDE HCL 5 MG TABLET GT SCH ×3 (05:22→21:15)
[2022-12-25 08:04] VITALS: TEMP 98.7
[2022-12-25] MEDS: HYDROGEN PEROXIDE 3% 118 ML BOTTLE TP SCH ×2 (09:30→20:20)
[2022-12-25] MEDS: PHENYTOIN 100 MG/4 ML UDC GT SCH ×2 (09:34→21:14)
[2022-12-25] MEDS: FERROUS SULFATE 330 MG/7.5 ML UDC- FOR SA ONLY GT SCH ×2 (09:34→21:14)
[2022-12-25] MEDS: ACIDOPHILUS/BULGARICUS CHEW TAB GT SCH ×2 (09:35→21:14)
[2022-12-25] MEDS: FUROSEMIDE 10 MG/ML GT SCH (09:35)
[2022-12-25] MEDS: POTASSIUM CHLORIDE 40 MEQ/30 ML LIQUID UDC GT SCH (09:36)
[2022-12-25] MEDS: TRIAMCINOLONE ACET 0.1% CREAM 15 GM TUBE TP SCH ×2 (09:36→21:14)
[2022-12-25] MEDS: levETIRAcetam 500 MG/5 ML LIQUID UDC GT SCH ×2 (09:36→21:14)
[2022-12-25] MEDS: REMEDY ESSENTIAL ZINC PASTE 113 GM TP SCH ×2 (09:37→21:14)
[2022-12-25] MEDS: NYSTATIN CREAM 30 GM TUBE TP SCH ×2 (09:37→21:14)
[2022-12-25 11:50] VITALS: O2SAT 98
[2022-12-25] MEDS ORDERED: POTASSIUM CHLORIDE 20 MEQ POWDER PACKET GT ONE (18:00)
[2022-12-25 20:00] VITALS: TEMP 97.7
[2022-12-25] MEDS: CHOLECALCIFEROL 1,000 UNIT TABLET GT SCH (21:14)
[2022-12-25] MEDS: FOLIC ACID 1 MG TABLET GT SCH (21:14)
[2022-12-25] MEDS: THIAMINE HCL 100 MG TABLET GT SCH (21:14)
[2022-12-26] MEDS: VITAL AF 1.2 1,000 ML LIQUID GT PRN (02:56)
[2022-12-26] MEDS: IPRATROPIUM BROMIDE 0.5 MG/2.5 ML NEBU NEB SCH ×6 (03:52→23:16)
[2022-12-26] MEDS: ALBUTEROL SULFATE 2.5 MG/3 ML NEBU NEB SCH ×6 (03:52→23:16)
[2022-12-26] MEDS: BACLOFEN 20 MG TABLET GT SCH ×3 (05:53→21:38)
[2022-12-26] MEDS: MAGNESIUM OXIDE 400 MG TABLET GT SCH (05:53)
[2022-12-26] MEDS: METOCLOPRAMIDE HCL 5 MG TABLET GT SCH ×3 (05:54→21:38)
[2022-12-26] MEDS: OMEPRAZOLE 20 MG CAPSULE.DR GT SCH (05:54)
[2022-12-26] MEDS: MIDODRINE HCL 10 MG TABLET GT SCH ×3 (05:54→21:38)
[2022-12-26] MEDS: HYDROGEN PEROXIDE 3% 118 ML BOTTLE TP SCH ×2 (07:45→19:19)
[2022-12-26 07:53] VITALS: TEMP 98.4
[2022-12-26] MEDS: ACIDOPHILUS/BULGARICUS CHEW TAB GT SCH ×2 (09:05→21:38)
[2022-12-26] MEDS: FUROSEMIDE 10 MG/ML GT SCH (09:05)
[2022-12-26] MEDS: PHENYTOIN 100 MG/4 ML UDC GT SCH ×2 (09:05→21:38)
[2022-12-26] MEDS: POTASSIUM CHLORIDE 40 MEQ/30 ML LIQUID UDC GT SCH (09:05)
[2022-12-26] MEDS: FERROUS SULFATE 330 MG/7.5 ML UDC- FOR SA ONLY GT SCH ×2 (09:05→21:38)
[2022-12-26] MEDS: levETIRAcetam 500 MG/5 ML LIQUID UDC GT SCH ×2 (09:05→21:38)
[2022-12-26] MEDS: REMEDY ESSENTIAL ZINC PASTE 113 GM TP SCH ×2 (09:33→21:38)
[2022-12-26] MEDS: TRIAMCINOLONE ACET 0.1% CREAM 15 GM TUBE TP SCH ×2 (09:33→21:38)
[2022-12-26] MEDS: NYSTATIN CREAM 30 GM TUBE TP SCH ×2 (09:33→21:38)
[2022-12-26] MEDS: ACETAMINOPHEN 650 MG/20 ML UDC- SA PATIENTS-PAIN ONLY GT PRN (14:21)
[2022-12-26 20:00] VITALS: TEMP 97.7
[2022-12-26] MEDS: THIAMINE HCL 100 MG TABLET GT SCH (21:38)
[2022-12-26] MEDS: CHOLECALCIFEROL 1,000 UNIT TABLET GT SCH (21:38)
[2022-12-26] MEDS: MIRALAX 17 GM POWD.PACK GT SCH (21:38)
[2022-12-26] MEDS: FOLIC ACID 1 MG TABLET GT SCH (21:38)
[2022-12-27] MEDS: IPRATROPIUM BROMIDE 0.5 MG/2.5 ML NEBU NEB SCH ×7 (03:26→23:16)
[2022-12-27] MEDS: ALBUTEROL SULFATE 2.5 MG/3 ML NEBU NEB SCH ×7 (03:26→23:16)
[2022-12-27] MEDS: BACLOFEN 20 MG TABLET GT SCH ×3 (05:33→21:05)
[2022-12-27] MEDS: OMEPRAZOLE 20 MG CAPSULE.DR GT SCH (05:33)
[2022-12-27] MEDS: MAGNESIUM OXIDE 400 MG TABLET GT SCH (05:33)
[2022-12-27] MEDS: METOCLOPRAMIDE HCL 5 MG TABLET GT SCH ×3 (05:33→21:05)
[2022-12-27] MEDS: MIDODRINE HCL 10 MG TABLET GT SCH ×3 (05:33→21:05)
[2022-12-27] MEDS: HYDROGEN PEROXIDE 3% 118 ML BOTTLE TP SCH ×3 (07:31→20:40)
[2022-12-27 07:48] VITALS: TEMP 97.8
[2022-12-27] MEDS: PHENYTOIN 100 MG/4 ML UDC GT SCH ×2 (09:11→21:04)
[2022-12-27] MEDS: FERROUS SULFATE 330 MG/7.5 ML UDC- FOR SA ONLY GT SCH ×2 (09:11→21:04)
[2022-12-27] MEDS: ACIDOPHILUS/BULGARICUS CHEW TAB GT SCH ×2 (09:11→21:04)
[2022-12-27] MEDS: FUROSEMIDE 10 MG/ML GT SCH (09:12)
[2022-12-27] MEDS: levETIRAcetam 500 MG/5 ML LIQUID UDC GT SCH ×2 (09:14→21:04)
[2022-12-27] MEDS: NYSTATIN CREAM 30 GM TUBE TP SCH ×2 (09:17→21:04)
[2022-12-27] MEDS: REMEDY ESSENTIAL ZINC PASTE 113 GM TP SCH ×2 (09:17→21:05)
[2022-12-27] MEDS: POTASSIUM CHLORIDE 40 MEQ/30 ML LIQUID UDC GT SCH (09:17)
[2022-12-27] MEDS: TRIAMCINOLONE ACET 0.1% CREAM 15 GM TUBE TP SCH ×2 (09:17→21:04)
[2022-12-27] MEDS: VITAL AF 1.2 1,000 ML LIQUID GT PRN (17:24)
[2022-12-27] MEDS: THIAMINE HCL 100 MG TABLET GT SCH (21:04)
[2022-12-27] MEDS: FOLIC ACID 1 MG TABLET GT SCH (21:04)
[2022-12-27] MEDS: CHOLECALCIFEROL 1,000 UNIT TABLET GT SCH (21:04)
[2022-12-27 21:22] VITALS: TEMP 98.8
[2022-12-27 21:44] VITALS: TEMP 98.8
[2022-12-28] MEDS: IPRATROPIUM BROMIDE 0.5 MG/2.5 ML NEBU NEB SCH ×6 (02:56→23:14)
[2022-12-28] MEDS: ALBUTEROL SULFATE 2.5 MG/3 ML NEBU NEB SCH ×6 (02:56→23:14)
[2022-12-28] MEDS: MIDODRINE HCL 10 MG TABLET GT SCH ×3 (05:38→21:42)
[2022-12-28] MEDS: BACLOFEN 20 MG TABLET GT SCH ×3 (05:38→21:42)
[2022-12-28] MEDS: MAGNESIUM OXIDE 400 MG TABLET GT SCH (05:38)
[2022-12-28] MEDS: METOCLOPRAMIDE HCL 5 MG TABLET GT SCH ×3 (05:38→21:42)
[2022-12-28] MEDS: OMEPRAZOLE 20 MG CAPSULE.DR GT SCH (05:38)
[2022-12-28 08:00] VITALS: TEMP 99
[2022-12-28] MEDS: PHENYTOIN 100 MG/4 ML UDC GT SCH ×2 (08:36→21:42)
[2022-12-28] MEDS: FERROUS SULFATE 330 MG/7.5 ML UDC- FOR SA ONLY GT SCH ×2 (08:36→21:42)
[2022-12-28] MEDS: ACIDOPHILUS/BULGARICUS CHEW TAB GT SCH ×2 (08:37→21:42)
[2022-12-28] MEDS: FUROSEMIDE 10 MG/ML GT SCH (08:38)
[2022-12-28] MEDS: levETIRAcetam 500 MG/5 ML LIQUID UDC GT SCH ×2 (08:44→21:42)
[2022-12-28] MEDS: POTASSIUM CHLORIDE 40 MEQ/30 ML LIQUID UDC GT SCH (08:46)
[2022-12-28] MEDS: REMEDY ESSENTIAL ZINC PASTE 113 GM TP SCH ×2 (08:46→21:42)
[2022-12-28] MEDS: HYDROGEN PEROXIDE 3% 118 ML BOTTLE TP SCH ×2 (09:00→19:16)
[2022-12-28 20:00] VITALS: TEMP 98.4
[2022-12-28] MEDS: FOLIC ACID 1 MG TABLET GT SCH (21:42)
[2022-12-28] MEDS: THIAMINE HCL 100 MG TABLET GT SCH (21:42)
[2022-12-28] MEDS: CHOLECALCIFEROL 1,000 UNIT TABLET GT SCH (21:42)
[2022-12-29] MEDS: ALBUTEROL SULFATE 2.5 MG/3 ML NEBU NEB SCH ×6 (03:01→23:13)
[2022-12-29] MEDS: IPRATROPIUM BROMIDE 0.5 MG/2.5 ML NEBU NEB SCH ×6 (03:01→23:13)
[2022-12-29] MEDS: VITAL AF 1.2 1,000 ML LIQUID GT PRN (04:28)
[2022-12-29] MEDS: MIDODRINE HCL 10 MG TABLET GT SCH ×3 (05:30→22:00)
[2022-12-29] MEDS: OMEPRAZOLE 20 MG CAPSULE.DR GT SCH (05:30)
[2022-12-29] MEDS: MAGNESIUM OXIDE 400 MG TABLET GT SCH (05:30)
[2022-12-29] MEDS: METOCLOPRAMIDE HCL 5 MG TABLET GT SCH ×3 (05:30→22:29)
[2022-12-29] MEDS: BACLOFEN 20 MG TABLET GT SCH ×3 (05:30→22:29)
[2022-12-29 07:21] LABS: BASOPHILS # (AUTO) 0.1 K/UL (0.0-0.2); BASOPHILS % (AUTO) 0.8 % (0.0-2.0); EOSINOPHILS # (AUTO) 0.7 K/uL (0.0-0.7); EOSINOPHILS % (AUTO) 8.5 % (0.0-7.0); HEMATOCRIT 34.4 % (31.2-41.9); HEMOGLOBIN 11.7 g/dL (10.9-14.3); LYMPHOCYTES # (AUTO) 2.3 K/uL (0.8-4.8); LYMPHOCYTES % (AUTO) 29.9 % (20.5-51.5); MEAN CORPUSCULAR HEMOGLOBIN 31.5 uug (24.7-32.8); MEAN CORPUSCULAR HGB CONC 34 g/dL (32.3-35.6); MEAN CORPUSCULAR VOLUME 92.8 fL (75.5-95.3); MONOCYTES # (AUTO) 0.7 K/uL (0.1-1.30); MONOCYTES % (AUTO) 9.4 % (0.0-11.0); NEUTROPHILS % (AUTO) 51.4 % (38.5-71.5); PLATELET COUNT (AUTO) 285 K/uL (179-408); RED BLOOD CELL COUNT(AUTO) 3.71 MIL/uL (3.63-4.92); RED CELL DISTRIBUTION WIDTH 16.9 % (12.3-17.7); WHITE BLOOD COUNT (AUTO) 7.8 K/uL (3.8-11.8)
[2022-12-29 07:33] LABS: DIFFERENTIAL COMMENT 1
[2022-12-29 07:34] LABS: CALCIUM 8.7 mg/dL (8.5-10.1); CARBON DIOXIDE 23 mmol/L (21-32); CHLORIDE 104 mmol/L (98-107); CREATININE 0.5 mg/dL (0.6-1.3); GLUCOSE 89 mg/dL (74-106); PHOSPHOROUS 3.7 mg/dL (2.5-4.9); POTASSIUM 3.2 mmol/L (3.5-5.1); SODIUM SERUM 137 mmol/L (136-145); UREA NITROGEN, BLOOD 17 mg/dL (7-18)
[2022-12-29 07:45] VITALS: TEMP 98
[2022-12-29] MEDS: HYDROGEN PEROXIDE 3% 118 ML BOTTLE TP SCH ×2 (08:07→19:27)
[2022-12-29] MEDS: PHENYTOIN 100 MG/4 ML UDC GT SCH ×2 (08:35→20:56)
[2022-12-29] MEDS: ACIDOPHILUS/BULGARICUS CHEW TAB GT SCH ×2 (08:36→20:56)
[2022-12-29] MEDS: FUROSEMIDE 10 MG/ML GT SCH (08:36)
[2022-12-29] MEDS: FERROUS SULFATE 330 MG/7.5 ML UDC- FOR SA ONLY GT SCH ×2 (08:36→20:56)
[2022-12-29] MEDS: levETIRAcetam 500 MG/5 ML LIQUID UDC GT SCH ×2 (08:37→20:56)
[2022-12-29] MEDS: POTASSIUM CHLORIDE 40 MEQ/30 ML LIQUID UDC GT SCH (08:37)
[2022-12-29] MEDS: REMEDY ESSENTIAL ZINC PASTE 113 GM TP SCH ×2 (08:38→20:56)
[2022-12-29] MEDS ORDERED: POTASSIUM CHLORIDE 20 MEQ POWDER PACKET GT ONE (09:30)
[2022-12-29 20:00] VITALS: TEMP 97.7
[2022-12-29] MEDS: CHOLECALCIFEROL 1,000 UNIT TABLET GT SCH (20:56)
[2022-12-29] MEDS: THIAMINE HCL 100 MG TABLET GT SCH (20:56)
[2022-12-29] MEDS: FOLIC ACID 1 MG TABLET GT SCH (20:56)
[2022-12-29] MEDS: MIRALAX 17 GM POWD.PACK GT SCH (20:56)
[2022-12-30] MEDS: IPRATROPIUM BROMIDE 0.5 MG/2.5 ML NEBU NEB SCH ×6 (03:31→23:43)
[2022-12-30] MEDS: ALBUTEROL SULFATE 2.5 MG/3 ML NEBU NEB SCH ×6 (03:31→23:43)
[2022-12-30] MEDS: VITAL AF 1.2 1,000 ML LIQUID GT PRN (04:30)
[2022-12-30] MEDS: MAGNESIUM OXIDE 400 MG TABLET GT SCH (06:08)
[2022-12-30] MEDS: BACLOFEN 20 MG TABLET GT SCH ×3 (06:08→21:20)
[2022-12-30] MEDS: METOCLOPRAMIDE HCL 5 MG TABLET GT SCH ×3 (06:09→21:21)
[2022-12-30] MEDS: MIDODRINE HCL 10 MG TABLET GT SCH ×3 (06:09→21:21)
[2022-12-30] MEDS: OMEPRAZOLE 20 MG CAPSULE.DR GT SCH (06:09)
[2022-12-30] MEDS: HYDROGEN PEROXIDE 3% 118 ML BOTTLE TP SCH ×2 (08:28→19:08)
[2022-12-30] MEDS: PHENYTOIN 100 MG/4 ML UDC GT SCH ×2 (08:59→21:20)
[2022-12-30] MEDS: FERROUS SULFATE 330 MG/7.5 ML UDC- FOR SA ONLY GT SCH ×2 (08:59→21:20)
[2022-12-30] MEDS: levETIRAcetam 500 MG/5 ML LIQUID UDC GT SCH ×2 (09:00→21:20)
[2022-12-30] MEDS: POTASSIUM CHLORIDE 40 MEQ/30 ML LIQUID UDC GT SCH (09:00)
[2022-12-30] MEDS: ACIDOPHILUS/BULGARICUS CHEW TAB GT SCH ×2 (09:00→21:20)
[2022-12-30] MEDS: FUROSEMIDE 10 MG/ML GT SCH (09:00)
[2022-12-30] MEDS: REMEDY ESSENTIAL ZINC PASTE 113 GM TP SCH ×2 (09:01→21:20)
[2022-12-30] MEDS ORDERED: POTASSIUM CHLORIDE 40 MEQ/30 ML LIQUID UDC GT ONE (18:00)
[2022-12-30] MEDS ORDERED: POTASSIUM CHLORIDE 20 MEQ POWDER PACKET GT ONE (18:00)
[2022-12-30 20:00] VITALS: TEMP 97.7
[2022-12-30] MEDS: THIAMINE HCL 100 MG TABLET GT SCH (21:20)
[2022-12-30] MEDS: FOLIC ACID 1 MG TABLET GT SCH (21:20)
[2022-12-30] MEDS: CHOLECALCIFEROL 1,000 UNIT TABLET GT SCH (21:20)
[2022-12-31] MEDS: IPRATROPIUM BROMIDE 0.5 MG/2.5 ML NEBU NEB SCH ×6 (04:00→23:35)
[2022-12-31] MEDS: ALBUTEROL SULFATE 2.5 MG/3 ML NEBU NEB SCH ×6 (04:01→23:35)
[2022-12-31] MEDS: OMEPRAZOLE 20 MG CAPSULE.DR GT SCH (06:12)
[2022-12-31] MEDS: MAGNESIUM OXIDE 400 MG TABLET GT SCH (06:12)
[2022-12-31] MEDS: BACLOFEN 20 MG TABLET GT SCH ×3 (06:12→21:00)
[2022-12-31] MEDS: MIDODRINE HCL 10 MG TABLET GT SCH ×3 (06:12→21:00)
[2022-12-31] MEDS: METOCLOPRAMIDE HCL 5 MG TABLET GT SCH ×3 (06:13→21:01)
[2022-12-31] MEDS: HYDROGEN PEROXIDE 3% 118 ML BOTTLE TP SCH ×2 (07:38→19:19)
[2022-12-31 07:53] VITALS: TEMP 97.7
[2022-12-31] MEDS: PHENYTOIN 100 MG/4 ML UDC GT SCH ×2 (08:50→20:56)
[2022-12-31] MEDS: FERROUS SULFATE 330 MG/7.5 ML UDC- FOR SA ONLY GT SCH ×2 (08:50→20:56)
[2022-12-31] MEDS: FUROSEMIDE 10 MG/ML GT SCH (08:51)
[2022-12-31] MEDS: ACIDOPHILUS/BULGARICUS CHEW TAB GT SCH ×2 (08:51→20:56)
[2022-12-31] MEDS: levETIRAcetam 500 MG/5 ML LIQUID UDC GT SCH ×2 (08:51→20:57)
[2022-12-31] MEDS: POTASSIUM CHLORIDE 40 MEQ/30 ML LIQUID UDC GT SCH (08:52)
[2022-12-31] MEDS: REMEDY ESSENTIAL ZINC PASTE 113 GM TP SCH ×2 (08:52→20:59)
[2022-12-31] MEDS: VITAL AF 1.2 1,000 ML LIQUID GT PRN (17:12)
[2022-12-31 20:34] VITALS: TEMP 97
[2022-12-31] MEDS: FOLIC ACID 1 MG TABLET GT SCH (20:57)
[2022-12-31] MEDS: MIRALAX 17 GM POWD.PACK GT SCH (20:58)
[2022-12-31] MEDS: THIAMINE HCL 100 MG TABLET GT SCH (20:58)
[2022-12-31] MEDS: CHOLECALCIFEROL 1,000 UNIT TABLET GT SCH (20:58)
[2023-01-01] MEDS: IPRATROPIUM BROMIDE 0.5 MG/2.5 ML NEBU NEB SCH ×6 (03:01→23:04)
[2023-01-01] MEDS: ALBUTEROL SULFATE 2.5 MG/3 ML NEBU NEB SCH ×6 (03:01→23:04)
[2023-01-01] MEDS: BACLOFEN 20 MG TABLET GT SCH ×3 (05:38→21:03)
[2023-01-01] MEDS: MAGNESIUM OXIDE 400 MG TABLET GT SCH (05:38)
[2023-01-01] MEDS: MIDODRINE HCL 10 MG TABLET GT SCH ×3 (05:39→21:03)
[2023-01-01] MEDS: OMEPRAZOLE 20 MG CAPSULE.DR GT SCH (05:39)
[2023-01-01] MEDS: METOCLOPRAMIDE HCL 5 MG TABLET GT SCH ×3 (05:39→21:04)
[2023-01-01 08:00] VITALS: TEMP 97.8
[2023-01-01] MEDS: HYDROGEN PEROXIDE 3% 118 ML BOTTLE TP SCH ×2 (09:00→19:14)
[2023-01-01] MEDS: PHENYTOIN 100 MG/4 ML UDC GT SCH ×2 (09:29→21:00)
[2023-01-01] MEDS: FERROUS SULFATE 330 MG/7.5 ML UDC- FOR SA ONLY GT SCH ×2 (09:29→21:00)
[2023-01-01] MEDS: REMEDY ESSENTIAL ZINC PASTE 113 GM TP SCH ×2 (09:29→21:03)
[2023-01-01] MEDS: FUROSEMIDE 10 MG/ML GT SCH (09:29)
[2023-01-01] MEDS: ACIDOPHILUS/BULGARICUS CHEW TAB GT SCH ×2 (09:29→21:01)
[2023-01-01] MEDS: POTASSIUM CHLORIDE 40 MEQ/30 ML LIQUID UDC GT SCH (09:29)
[2023-01-01] MEDS: levETIRAcetam 500 MG/5 ML LIQUID UDC GT SCH ×2 (09:29→21:01)
[2023-01-01 20:02] VITALS: TEMP 97.4
[2023-01-01] MEDS: FOLIC ACID 1 MG TABLET GT SCH (21:01)
[2023-01-01] MEDS: CHOLECALCIFEROL 1,000 UNIT TABLET GT SCH (21:03)
[2023-01-01] MEDS: THIAMINE HCL 100 MG TABLET GT SCH (21:03)
[2023-01-02] MEDS: ALBUTEROL SULFATE 2.5 MG/3 ML NEBU NEB SCH ×6 (03:26→23:08)
[2023-01-02] MEDS: IPRATROPIUM BROMIDE 0.5 MG/2.5 ML NEBU NEB SCH ×6 (03:26→23:08)
[2023-01-02] MEDS: BACLOFEN 20 MG TABLET GT SCH ×3 (05:48→21:26)
[2023-01-02] MEDS: MAGNESIUM OXIDE 400 MG TABLET GT SCH (05:48)
[2023-01-02] MEDS: OMEPRAZOLE 20 MG CAPSULE.DR GT SCH (05:49)
[2023-01-02] MEDS: MIDODRINE HCL 10 MG TABLET GT SCH ×3 (05:49→21:26)
[2023-01-02] MEDS: METOCLOPRAMIDE HCL 5 MG TABLET GT SCH ×3 (05:50→21:26)
[2023-01-02 07:30] VITALS: TEMP 97.3
[2023-01-02] MEDS: HYDROGEN PEROXIDE 3% 118 ML BOTTLE TP SCH ×2 (07:35→19:05)
[2023-01-02] MEDS: POTASSIUM CHLORIDE 40 MEQ/30 ML LIQUID UDC GT SCH (09:58)
[2023-01-02] MEDS: REMEDY ESSENTIAL ZINC PASTE 113 GM TP SCH ×2 (09:58→20:24)
[2023-01-02] MEDS: FERROUS SULFATE 330 MG/7.5 ML UDC- FOR SA ONLY GT SCH ×2 (09:58→20:24)
[2023-01-02] MEDS: FUROSEMIDE 10 MG/ML GT SCH (09:58)
[2023-01-02] MEDS: ACIDOPHILUS/BULGARICUS CHEW TAB GT SCH ×2 (09:58→20:24)
[2023-01-02] MEDS: levETIRAcetam 500 MG/5 ML LIQUID UDC GT SCH ×2 (09:58→20:24)
[2023-01-02] MEDS: PHENYTOIN 100 MG/4 ML UDC GT SCH ×2 (09:58→20:24)
[2023-01-02 20:00] VITALS: TEMP 97.7
[2023-01-02] MEDS: CHOLECALCIFEROL 1,000 UNIT TABLET GT SCH (20:24)
[2023-01-02] MEDS: THIAMINE HCL 100 MG TABLET GT SCH (20:24)
[2023-01-02] MEDS: FOLIC ACID 1 MG TABLET GT SCH (20:24)
[2023-01-02] MEDS: MIRALAX 17 GM POWD.PACK GT SCH (20:25)
[2023-01-03] MEDS: ALBUTEROL SULFATE 2.5 MG/3 ML NEBU NEB SCH ×6 (03:26→23:34)
[2023-01-03] MEDS: IPRATROPIUM BROMIDE 0.5 MG/2.5 ML NEBU NEB SCH ×6 (03:26→23:34)
[2023-01-03] MEDS: MIDODRINE HCL 10 MG TABLET GT SCH ×3 (06:38→22:47)
[2023-01-03] MEDS: OMEPRAZOLE 20 MG CAPSULE.DR GT SCH (06:39)
[2023-01-03] MEDS: METOCLOPRAMIDE HCL 5 MG TABLET GT SCH ×3 (06:39→22:47)
[2023-01-03] MEDS: BACLOFEN 20 MG TABLET GT SCH ×3 (06:39→22:46)
[2023-01-03] MEDS: MAGNESIUM OXIDE 400 MG TABLET GT SCH (06:41)
[2023-01-03 07:51] VITALS: TEMP 97.4
[2023-01-03 08:00] VITALS: TEMP 98.2
[2023-01-03] MEDS: levETIRAcetam 500 MG/5 ML LIQUID UDC GT SCH ×2 (10:00→20:42)
[2023-01-03] MEDS: POTASSIUM CHLORIDE 40 MEQ/30 ML LIQUID UDC GT SCH (10:00)
[2023-01-03] MEDS: REMEDY ESSENTIAL ZINC PASTE 113 GM TP SCH ×2 (10:00→21:00)
[2023-01-03] MEDS: ACIDOPHILUS/BULGARICUS CHEW TAB GT SCH ×2 (10:00→20:43)
[2023-01-03] MEDS: FUROSEMIDE 10 MG/ML GT SCH (10:00)
[2023-01-03] MEDS: PHENYTOIN 100 MG/4 ML UDC GT SCH ×2 (10:00→20:44)
[2023-01-03] MEDS: FERROUS SULFATE 330 MG/7.5 ML UDC- FOR SA ONLY GT SCH ×2 (10:00→20:41)
[2023-01-03] MEDS: HYDROGEN PEROXIDE 3% 118 ML BOTTLE TP SCH ×2 (10:10→21:29)
[2023-01-03] MEDS: VITAL AF 1.2 1,000 ML LIQUID GT PRN (12:55)
[2023-01-03 20:41] VITALS: TEMP 97.9
[2023-01-03] MEDS: CHOLECALCIFEROL 1,000 UNIT TABLET GT SCH (20:42)
[2023-01-03] MEDS: FOLIC ACID 1 MG TABLET GT SCH (20:42)
[2023-01-03] MEDS: THIAMINE HCL 100 MG TABLET GT SCH (20:42)
[2023-01-04] MEDS: IPRATROPIUM BROMIDE 0.5 MG/2.5 ML NEBU NEB SCH ×6 (03:05→23:37)
[2023-01-04] MEDS: ALBUTEROL SULFATE 2.5 MG/3 ML NEBU NEB SCH ×6 (03:05→23:37)
[2023-01-04] MEDS: MAGNESIUM OXIDE 400 MG TABLET GT SCH (05:28)
[2023-01-04] MEDS: BACLOFEN 20 MG TABLET GT SCH ×3 (05:28→21:00)
[2023-01-04] MEDS: MIDODRINE HCL 10 MG TABLET GT SCH ×3 (05:29→21:02)
[2023-01-04] MEDS: OMEPRAZOLE 20 MG CAPSULE.DR GT SCH (05:30)
[2023-01-04] MEDS: METOCLOPRAMIDE HCL 5 MG TABLET GT SCH ×3 (05:30→21:02)
[2023-01-04] MEDS: HYDROGEN PEROXIDE 3% 118 ML BOTTLE TP SCH ×2 (07:23→21:00)
[2023-01-04 07:37] VITALS: TEMP 97.6
[2023-01-04] MEDS: PHENYTOIN 100 MG/4 ML UDC GT SCH ×2 (08:44→20:57)
[2023-01-04] MEDS: FERROUS SULFATE 330 MG/7.5 ML UDC- FOR SA ONLY GT SCH ×2 (08:44→20:57)
[2023-01-04] MEDS: FUROSEMIDE 10 MG/ML GT SCH (08:45)
[2023-01-04] MEDS: ACIDOPHILUS/BULGARICUS CHEW TAB GT SCH ×2 (08:45→20:58)
[2023-01-04] MEDS: levETIRAcetam 500 MG/5 ML LIQUID UDC GT SCH ×2 (08:46→20:59)
[2023-01-04] MEDS: REMEDY ESSENTIAL ZINC PASTE 113 GM TP SCH ×2 (08:47→21:00)
[2023-01-04] MEDS: POTASSIUM CHLORIDE 40 MEQ/30 ML LIQUID UDC GT SCH (08:47)
[2023-01-04 20:35] VITALS: TEMP 96.8
[2023-01-04] MEDS: FOLIC ACID 1 MG TABLET GT SCH (20:58)
[2023-01-04] MEDS: THIAMINE HCL 100 MG TABLET GT SCH (20:59)
[2023-01-04] MEDS: CHOLECALCIFEROL 1,000 UNIT TABLET GT SCH (21:00)
[2023-01-05] MEDS: IPRATROPIUM BROMIDE 0.5 MG/2.5 ML NEBU NEB SCH ×6 (04:20→23:23)
[2023-01-05] MEDS: ALBUTEROL SULFATE 2.5 MG/3 ML NEBU NEB SCH ×6 (04:20→23:23)
[2023-01-05] MEDS: METOCLOPRAMIDE HCL 5 MG TABLET GT SCH ×3 (05:17→21:06)
[2023-01-05] MEDS: OMEPRAZOLE 20 MG CAPSULE.DR GT SCH (05:17)
[2023-01-05] MEDS: MAGNESIUM OXIDE 400 MG TABLET GT SCH (05:17)
[2023-01-05] MEDS: MIDODRINE HCL 10 MG TABLET GT SCH ×3 (05:17→21:06)
[2023-01-05] MEDS: BACLOFEN 20 MG TABLET GT SCH ×3 (05:17→21:01)
[2023-01-05] MEDS: VITAL AF 1.2 1,000 ML LIQUID GT PRN (06:28)
[2023-01-05 07:17] LABS: BASOPHILS % (AUTO) 0.3 % (0.0-2.0); EOSINOPHILS # (AUTO) 0.2 K/uL (0.0-0.7); EOSINOPHILS % (AUTO) 4.9 % (0.0-7.0); HEMOGLOBIN 11.3 g/dL (10.9-14.3); LYMPHOCYTES # (AUTO) 2.2 K/uL (0.8-4.8); LYMPHOCYTES % (AUTO) 48.9 % (20.5-51.5); MEAN CORPUSCULAR HEMOGLOBIN 31.6 uug (24.7-32.8); MEAN CORPUSCULAR HGB CONC 33 g/dL (32.3-35.6); MEAN CORPUSCULAR VOLUME 95.1 fL (75.5-95.3); MONOCYTES # (AUTO) 0.3 K/uL (0.1-1.30); MONOCYTES % (AUTO) 7.1 % (0.0-11.0); NEUTROPHILS # (AUTO) 1.7 K/uL (1.8-8.9); NEUTROPHILS % (AUTO) 38.8 % (38.5-71.5); PLATELET COUNT (AUTO) 214 K/uL (179-408); RED BLOOD CELL COUNT(AUTO) 3.58 MIL/uL (3.63-4.92); RED CELL DISTRIBUTION WIDTH 17.2 % (12.3-17.7); WHITE BLOOD COUNT (AUTO) 4.5 K/uL (3.8-11.8)
[2023-01-05 07:30] LABS: DIFFERENTIAL COMMENT 1
[2023-01-05 07:36] VITALS: TEMP 97
[2023-01-05 08:04] LABS: CALCIUM 8.5 mg/dL (8.5-10.1); CARBON DIOXIDE 18 mmol/L (21-32); CHLORIDE 111 mmol/L (98-107); CREATININE 0.5 mg/dL (0.6-1.3); GLUCOSE 85 mg/dL (74-106); MAGNESIUM 2.4 mg/dL (1.8-2.4); POTASSIUM 3.8 mmol/L (3.5-5.1); SODIUM SERUM 140 mmol/L (136-145); UREA NITROGEN, BLOOD 17 mg/dL (7-18)
[2023-01-05] MEDS: HYDROGEN PEROXIDE 3% 118 ML BOTTLE TP SCH ×2 (08:18→19:07)
[2023-01-05] MEDS: POTASSIUM CHLORIDE 40 MEQ/30 ML LIQUID UDC GT SCH (08:30)
[2023-01-05] MEDS: REMEDY ESSENTIAL ZINC PASTE 113 GM TP SCH ×2 (08:30→20:53)
[2023-01-05] MEDS: levETIRAcetam 500 MG/5 ML LIQUID UDC GT SCH ×2 (08:31→20:51)
[2023-01-05] MEDS: ACIDOPHILUS/BULGARICUS CHEW TAB GT SCH ×2 (08:34→20:50)
[2023-01-05] MEDS: FUROSEMIDE 10 MG/ML GT SCH (08:34)
[2023-01-05] MEDS: FERROUS SULFATE 330 MG/7.5 ML UDC- FOR SA ONLY GT SCH ×2 (08:38→20:49)
[2023-01-05] MEDS: PHENYTOIN 100 MG/4 ML UDC GT SCH ×2 (08:40→20:45)
[2023-01-05] MEDS: FOLIC ACID 1 MG TABLET GT SCH (20:51)
[2023-01-05] MEDS: THIAMINE HCL 100 MG TABLET GT SCH (20:52)
[2023-01-05] MEDS: MIRALAX 17 GM POWD.PACK GT SCH (20:52)
[2023-01-05] MEDS: CHOLECALCIFEROL 1,000 UNIT TABLET GT SCH (20:53)
[2023-01-05 21:47] VITALS: TEMP 96
[2023-01-06] MEDS: IPRATROPIUM BROMIDE 0.5 MG/2.5 ML NEBU NEB SCH ×6 (03:26→23:45)
[2023-01-06] MEDS: ALBUTEROL SULFATE 2.5 MG/3 ML NEBU NEB SCH ×6 (03:26→23:45)
[2023-01-06] MEDS: BACLOFEN 20 MG TABLET GT SCH ×3 (05:52→21:09)
[2023-01-06] MEDS: MAGNESIUM OXIDE 400 MG TABLET GT SCH (05:52)
[2023-01-06] MEDS: MIDODRINE HCL 10 MG TABLET GT SCH ×3 (05:53→21:09)
[2023-01-06] MEDS: OMEPRAZOLE 20 MG CAPSULE.DR GT SCH (05:53)
[2023-01-06] MEDS: METOCLOPRAMIDE HCL 5 MG TABLET GT SCH ×3 (05:53→21:09)
[2023-01-06 07:42] VITALS: TEMP 96.8
[2023-01-06] MEDS: HYDROGEN PEROXIDE 3% 118 ML BOTTLE TP SCH ×2 (07:55→19:11)
[2023-01-06] MEDS: PHENYTOIN 100 MG/4 ML UDC GT SCH ×2 (08:54→21:08)
[2023-01-06] MEDS: FERROUS SULFATE 330 MG/7.5 ML UDC- FOR SA ONLY GT SCH ×2 (08:55→21:08)
[2023-01-06] MEDS: FUROSEMIDE 10 MG/ML GT SCH (08:55)
[2023-01-06] MEDS: ACIDOPHILUS/BULGARICUS CHEW TAB GT SCH ×2 (08:55→21:09)
[2023-01-06] MEDS: levETIRAcetam 500 MG/5 ML LIQUID UDC GT SCH ×2 (09:00→21:09)
[2023-01-06] MEDS: POTASSIUM CHLORIDE 40 MEQ/30 ML LIQUID UDC GT SCH (09:00)
[2023-01-06] MEDS: REMEDY ESSENTIAL ZINC PASTE 113 GM TP SCH ×2 (09:00→21:09)
[2023-01-06 09:20] VITALS: TEMP 96.8
[2023-01-06 20:00] VITALS: TEMP 97.7
[2023-01-06] MEDS: THIAMINE HCL 100 MG TABLET GT SCH (21:09)
[2023-01-06] MEDS: FOLIC ACID 1 MG TABLET GT SCH (21:09)
[2023-01-06] MEDS: CHOLECALCIFEROL 1,000 UNIT TABLET GT SCH (21:09)
[2023-01-07] MEDS: VITAL AF 1.2 1,000 ML LIQUID GT PRN (01:04)
[2023-01-07] MEDS: ALBUTEROL SULFATE 2.5 MG/3 ML NEBU NEB SCH ×6 (03:14→23:32)
[2023-01-07] MEDS: IPRATROPIUM BROMIDE 0.5 MG/2.5 ML NEBU NEB SCH ×6 (03:14→23:32)
[2023-01-07] MEDS: MAGNESIUM OXIDE 400 MG TABLET GT SCH (06:06)
[2023-01-07] MEDS: METOCLOPRAMIDE HCL 5 MG TABLET GT SCH ×3 (06:06→21:05)
[2023-01-07] MEDS: MIDODRINE HCL 10 MG TABLET GT SCH ×3 (06:06→21:05)
[2023-01-07] MEDS: BACLOFEN 20 MG TABLET GT SCH ×3 (06:06→21:04)
[2023-01-07] MEDS: OMEPRAZOLE 20 MG CAPSULE.DR GT SCH (06:06)
[2023-01-07 08:00] VITALS: TEMP 97
[2023-01-07] MEDS: HYDROGEN PEROXIDE 3% 118 ML BOTTLE TP SCH ×2 (08:27→19:14)
[2023-01-07] MEDS: PHENYTOIN 100 MG/4 ML UDC GT SCH ×2 (08:58→20:58)
[2023-01-07] MEDS: ACIDOPHILUS/BULGARICUS CHEW TAB GT SCH ×2 (08:58→21:01)
[2023-01-07] MEDS: FERROUS SULFATE 330 MG/7.5 ML UDC- FOR SA ONLY GT SCH ×2 (08:58→20:59)
[2023-01-07] MEDS: levETIRAcetam 500 MG/5 ML LIQUID UDC GT SCH ×2 (08:58→21:02)
[2023-01-07] MEDS: REMEDY ESSENTIAL ZINC PASTE 113 GM TP SCH ×2 (08:59→21:04)
[2023-01-07] MEDS: POTASSIUM CHLORIDE 40 MEQ/30 ML LIQUID UDC GT SCH (08:59)
[2023-01-07] MEDS: FUROSEMIDE 10 MG/ML GT SCH (09:00)
[2023-01-07 20:00] VITALS: TEMP 96.3
[2023-01-07] MEDS: FOLIC ACID 1 MG TABLET GT SCH (21:02)
[2023-01-07] MEDS: CHOLECALCIFEROL 1,000 UNIT TABLET GT SCH (21:03)
[2023-01-07] MEDS: MIRALAX 17 GM POWD.PACK GT SCH (21:03)
[2023-01-07] MEDS: THIAMINE HCL 100 MG TABLET GT SCH (21:03)
[2023-01-08] MEDS: ALBUTEROL SULFATE 2.5 MG/3 ML NEBU NEB SCH ×6 (03:12→23:21)
[2023-01-08] MEDS: IPRATROPIUM BROMIDE 0.5 MG/2.5 ML NEBU NEB SCH ×6 (03:12→23:21)
[2023-01-08] MEDS: MIDODRINE HCL 10 MG TABLET GT SCH ×3 (05:18→21:30)
[2023-01-08] MEDS: BACLOFEN 20 MG TABLET GT SCH ×3 (05:18→21:30)
[2023-01-08] MEDS: METOCLOPRAMIDE HCL 5 MG TABLET GT SCH ×3 (05:18→21:30)
[2023-01-08] MEDS: OMEPRAZOLE 20 MG CAPSULE.DR GT SCH (05:18)
[2023-01-08] MEDS: MAGNESIUM OXIDE 400 MG TABLET GT SCH (05:18)
[2023-01-08 08:00] VITALS: TEMP 97
[2023-01-08] MEDS: HYDROGEN PEROXIDE 3% 118 ML BOTTLE TP SCH ×2 (08:00→19:13)
[2023-01-08] MEDS: PHENYTOIN 100 MG/4 ML UDC GT SCH ×2 (08:22→21:27)
[2023-01-08] MEDS: ACIDOPHILUS/BULGARICUS CHEW TAB GT SCH ×2 (08:31→21:28)
[2023-01-08] MEDS: FERROUS SULFATE 330 MG/7.5 ML UDC- FOR SA ONLY GT SCH ×2 (08:31→21:28)
[2023-01-08] MEDS: FUROSEMIDE 10 MG/ML GT SCH (08:33)
[2023-01-08] MEDS: levETIRAcetam 500 MG/5 ML LIQUID UDC GT SCH ×2 (08:34→21:29)
[2023-01-08] MEDS: POTASSIUM CHLORIDE 40 MEQ/30 ML LIQUID UDC GT SCH (08:35)
[2023-01-08] MEDS: REMEDY ESSENTIAL ZINC PASTE 113 GM TP SCH ×2 (08:37→21:30)
[2023-01-08] MEDS: VITAL AF 1.2 1,000 ML LIQUID GT PRN (16:17)
[2023-01-08 20:04] VITALS: TEMP 97.4
[2023-01-08] MEDS: THIAMINE HCL 100 MG TABLET GT SCH (21:29)
[2023-01-08] MEDS: FOLIC ACID 1 MG TABLET GT SCH (21:29)
[2023-01-08] MEDS: CHOLECALCIFEROL 1,000 UNIT TABLET GT SCH (21:29)
[2023-01-09] MEDS: ALBUTEROL SULFATE 2.5 MG/3 ML NEBU NEB SCH ×6 (03:57→23:08)
[2023-01-09] MEDS: IPRATROPIUM BROMIDE 0.5 MG/2.5 ML NEBU NEB SCH ×6 (03:57→23:08)
[2023-01-09] MEDS: MAGNESIUM OXIDE 400 MG TABLET GT SCH (05:26)
[2023-01-09] MEDS: BACLOFEN 20 MG TABLET GT SCH ×3 (05:26→22:00)
[2023-01-09] MEDS: OMEPRAZOLE 20 MG CAPSULE.DR GT SCH (05:27)
[2023-01-09] MEDS: METOCLOPRAMIDE HCL 5 MG TABLET GT SCH ×3 (05:27→22:00)
[2023-01-09] MEDS: MIDODRINE HCL 10 MG TABLET GT SCH ×3 (05:27→22:00)
[2023-01-09] MEDS: HYDROGEN PEROXIDE 3% 118 ML BOTTLE TP SCH ×2 (07:29→19:03)
[2023-01-09 07:30] VITALS: TEMP 97.3
[2023-01-09] MEDS: PHENYTOIN 100 MG/4 ML UDC GT SCH ×2 (08:39→20:37)
[2023-01-09] MEDS: FERROUS SULFATE 330 MG/7.5 ML UDC- FOR SA ONLY GT SCH ×2 (08:50→20:38)
[2023-01-09] MEDS: ACIDOPHILUS/BULGARICUS CHEW TAB GT SCH ×2 (08:51→20:38)
[2023-01-09] MEDS: FUROSEMIDE 10 MG/ML GT SCH (08:52)
[2023-01-09] MEDS: levETIRAcetam 500 MG/5 ML LIQUID UDC GT SCH ×2 (08:52→20:38)
[2023-01-09] MEDS: POTASSIUM CHLORIDE 40 MEQ/30 ML LIQUID UDC GT SCH (08:54)
[2023-01-09] MEDS: REMEDY ESSENTIAL ZINC PASTE 113 GM TP SCH ×2 (08:55→20:39)
[2023-01-09 20:02] VITALS: TEMP 97.1
[2023-01-09] MEDS: FOLIC ACID 1 MG TABLET GT SCH (20:38)
[2023-01-09] MEDS: MIRALAX 17 GM POWD.PACK GT SCH (20:39)
[2023-01-09] MEDS: CHOLECALCIFEROL 1,000 UNIT TABLET GT SCH (20:39)
[2023-01-09] MEDS: THIAMINE HCL 100 MG TABLET GT SCH (20:39)
[2023-01-10] MEDS: IPRATROPIUM BROMIDE 0.5 MG/2.5 ML NEBU NEB SCH ×6 (02:45→23:09)
[2023-01-10] MEDS: ALBUTEROL SULFATE 2.5 MG/3 ML NEBU NEB SCH ×6 (02:46→23:09)
[2023-01-10] MEDS: VITAL AF 1.2 1,000 ML LIQUID GT PRN (06:20)
[2023-01-10] MEDS: MAGNESIUM OXIDE 400 MG TABLET GT SCH (06:22)
[2023-01-10] MEDS: BACLOFEN 20 MG TABLET GT SCH ×3 (06:22→22:06)
[2023-01-10] MEDS: MIDODRINE HCL 10 MG TABLET GT SCH ×3 (06:23→22:00)
[2023-01-10] MEDS: OMEPRAZOLE 20 MG CAPSULE.DR GT SCH (06:23)
[2023-01-10] MEDS: METOCLOPRAMIDE HCL 5 MG TABLET GT SCH ×3 (06:23→22:07)
[2023-01-10] MEDS: HYDROGEN PEROXIDE 3% 118 ML BOTTLE TP SCH ×2 (07:31→19:16)
[2023-01-10 07:47] VITALS: TEMP 97.5
[2023-01-10] MEDS: FERROUS SULFATE 330 MG/7.5 ML UDC- FOR SA ONLY GT SCH ×2 (08:23→20:43)
[2023-01-10] MEDS: REMEDY ESSENTIAL ZINC PASTE 113 GM TP SCH ×2 (08:23→20:45)
[2023-01-10] MEDS: FUROSEMIDE 10 MG/ML GT SCH (08:23)
[2023-01-10] MEDS: ACIDOPHILUS/BULGARICUS CHEW TAB GT SCH ×2 (08:23→20:43)
[2023-01-10] MEDS: PHENYTOIN 100 MG/4 ML UDC GT SCH ×2 (08:23→20:43)
[2023-01-10] MEDS: levETIRAcetam 500 MG/5 ML LIQUID UDC GT SCH ×2 (08:23→20:44)
[2023-01-10] MEDS: POTASSIUM CHLORIDE 40 MEQ/30 ML LIQUID UDC GT SCH (08:23)
[2023-01-10 20:00] VITALS: TEMP 97.8
[2023-01-10] MEDS: FOLIC ACID 1 MG TABLET GT SCH (20:43)
[2023-01-10] MEDS: THIAMINE HCL 100 MG TABLET GT SCH (20:44)
[2023-01-10] MEDS: CHOLECALCIFEROL 1,000 UNIT TABLET GT SCH (20:45)
[2023-01-11] MEDS: IPRATROPIUM BROMIDE 0.5 MG/2.5 ML NEBU NEB SCH ×6 (03:02→23:10)
[2023-01-11] MEDS: ALBUTEROL SULFATE 2.5 MG/3 ML NEBU NEB SCH ×6 (03:02→23:11)
[2023-01-11] MEDS: MIDODRINE HCL 10 MG TABLET GT SCH ×3 (05:06→21:23)
[2023-01-11] MEDS: OMEPRAZOLE 20 MG CAPSULE.DR GT SCH (05:06)
[2023-01-11] MEDS: METOCLOPRAMIDE HCL 5 MG TABLET GT SCH ×3 (05:06→21:23)
[2023-01-11] MEDS: MAGNESIUM OXIDE 400 MG TABLET GT SCH (05:06)
[2023-01-11] MEDS: BACLOFEN 20 MG TABLET GT SCH ×3 (05:06→21:23)
[2023-01-11 07:57] VITALS: TEMP 98.8
[2023-01-11] MEDS: HYDROGEN PEROXIDE 3% 118 ML BOTTLE TP SCH ×2 (08:23→19:15)
[2023-01-11] MEDS: FUROSEMIDE 10 MG/ML GT SCH (08:58)
[2023-01-11] MEDS: levETIRAcetam 500 MG/5 ML LIQUID UDC GT SCH ×2 (08:58→21:16)
[2023-01-11] MEDS: POTASSIUM CHLORIDE 40 MEQ/30 ML LIQUID UDC GT SCH (08:58)
[2023-01-11] MEDS: FERROUS SULFATE 330 MG/7.5 ML UDC- FOR SA ONLY GT SCH ×2 (08:58→21:16)
[2023-01-11] MEDS: REMEDY ESSENTIAL ZINC PASTE 113 GM TP SCH ×2 (08:58→21:20)
[2023-01-11] MEDS: PHENYTOIN 100 MG/4 ML UDC GT SCH ×2 (08:58→21:16)
[2023-01-11] MEDS: ACIDOPHILUS/BULGARICUS CHEW TAB GT SCH ×2 (08:58→21:16)
[2023-01-11 20:00] VITALS: TEMP 97.7
[2023-01-11] MEDS: THIAMINE HCL 100 MG TABLET GT SCH (21:16)
[2023-01-11] MEDS: FOLIC ACID 1 MG TABLET GT SCH (21:16)
[2023-01-11] MEDS: CHOLECALCIFEROL 1,000 UNIT TABLET GT SCH (21:20)
[2023-01-12] MEDS: ALBUTEROL SULFATE 2.5 MG/3 ML NEBU NEB SCH ×6 (03:35→23:40)
[2023-01-12] MEDS: IPRATROPIUM BROMIDE 0.5 MG/2.5 ML NEBU NEB SCH ×6 (03:35→23:40)
[2023-01-12] MEDS: VITAL AF 1.2 1,000 ML LIQUID GT PRN (04:11)
[2023-01-12] MEDS: BACLOFEN 20 MG TABLET GT SCH ×3 (05:46→22:00)
[2023-01-12] MEDS: MAGNESIUM OXIDE 400 MG TABLET GT SCH (05:46)
[2023-01-12] MEDS: METOCLOPRAMIDE HCL 5 MG TABLET GT SCH ×3 (05:47→22:00)
[2023-01-12] MEDS: MIDODRINE HCL 10 MG TABLET GT SCH ×3 (05:47→22:00)
[2023-01-12] MEDS: OMEPRAZOLE 20 MG CAPSULE.DR GT SCH (05:47)
[2023-01-12 07:31] VITALS: TEMP 97.2
[2023-01-12 07:36] LABS: BASOPHILS % (AUTO) 0.1 % (0.0-2.0); EOSINOPHILS # (AUTO) 0.1 K/uL (0.0-0.7); EOSINOPHILS % (AUTO) 0.9 % (0.0-7.0); HEMATOCRIT 33.1 % (31.2-41.9); HEMOGLOBIN 11.2 g/dL (10.9-14.3); LYMPHOCYTES # (AUTO) 0.8 K/uL (0.8-4.8); LYMPHOCYTES % (AUTO) 11.1 % (20.5-51.5); MEAN CORPUSCULAR HEMOGLOBIN 31.7 uug (24.7-32.8); MEAN CORPUSCULAR HGB CONC 34 g/dL (32.3-35.6); MEAN CORPUSCULAR VOLUME 93.6 fL (75.5-95.3); MONOCYTES # (AUTO) 0.7 K/uL (0.1-1.30); MONOCYTES % (AUTO) 10.5 % (0.0-11.0); NEUTROPHILS # (AUTO) 5.2 K/uL (1.8-8.9); NEUTROPHILS % (AUTO) 77.4 % (38.5-71.5); PLATELET COUNT (AUTO) 157 K/uL (179-408); RED BLOOD CELL COUNT(AUTO) 3.54 MIL/uL (3.63-4.92); RED CELL DISTRIBUTION WIDTH 17.4 % (12.3-17.7); WHITE BLOOD COUNT (AUTO) 6.8 K/uL (3.8-11.8)
[2023-01-12 07:49] LABS: CALCIUM 8.4 mg/dL (8.5-10.1); CARBON DIOXIDE 20 mmol/L (21-32); CHLORIDE 107 mmol/L (98-107); CREATININE 0.5 mg/dL (0.6-1.3); GLUCOSE 101 mg/dL (74-106); MAGNESIUM 1.7 mg/dL (1.8-2.4); PHOSPHOROUS 3.4 mg/dL (2.5-4.9); POTASSIUM 3.7 mmol/L (3.5-5.1); SODIUM SERUM 138 mmol/L (136-145); UREA NITROGEN, BLOOD 13 mg/dL (7-18)
[2023-01-12 07:58] LABS: DIFFERENTIAL COMMENT 1
[2023-01-12] MEDS: HYDROGEN PEROXIDE 3% 118 ML BOTTLE TP SCH ×2 (08:08→21:00)
[2023-01-12] MEDS: FUROSEMIDE 10 MG/ML GT SCH (08:57)
[2023-01-12] MEDS: PHENYTOIN 100 MG/4 ML UDC GT SCH ×2 (08:57→21:00)
[2023-01-12] MEDS: FERROUS SULFATE 330 MG/7.5 ML UDC- FOR SA ONLY GT SCH ×2 (08:57→21:00)
[2023-01-12] MEDS: ACIDOPHILUS/BULGARICUS CHEW TAB GT SCH ×2 (08:57→21:00)
[2023-01-12] MEDS: levETIRAcetam 500 MG/5 ML LIQUID UDC GT SCH ×2 (08:58→21:00)
[2023-01-12] MEDS: POTASSIUM CHLORIDE 40 MEQ/30 ML LIQUID UDC GT SCH (08:59)
[2023-01-12] MEDS: REMEDY ESSENTIAL ZINC PASTE 113 GM TP SCH ×2 (08:59→21:00)
[2023-01-12] MEDS ORDERED: MAGNESIUM OXIDE 400 MG TABLET PO ONE (11:00)
[2023-01-12 20:07] VITALS: TEMP 97.6
[2023-01-12] MEDS: THIAMINE HCL 100 MG TABLET GT SCH (21:00)
[2023-01-12] MEDS: FOLIC ACID 1 MG TABLET GT SCH (21:00)
[2023-01-12] MEDS: MIRALAX 17 GM POWD.PACK GT SCH (21:00)
[2023-01-12] MEDS: CHOLECALCIFEROL 1,000 UNIT TABLET GT SCH (21:00)
[2023-01-13] MEDS: ALBUTEROL SULFATE 2.5 MG/3 ML NEBU NEB SCH ×6 (04:25→22:58)
[2023-01-13] MEDS: IPRATROPIUM BROMIDE 0.5 MG/2.5 ML NEBU NEB SCH ×6 (04:25→22:58)
[2023-01-13] MEDS: OMEPRAZOLE 20 MG CAPSULE.DR GT SCH (05:12)
[2023-01-13] MEDS: BACLOFEN 20 MG TABLET GT SCH ×3 (05:12→22:42)
[2023-01-13] MEDS: MAGNESIUM OXIDE 400 MG TABLET GT SCH (05:12)
[2023-01-13] MEDS: MIDODRINE HCL 10 MG TABLET GT SCH ×3 (05:13→22:43)
[2023-01-13] MEDS: METOCLOPRAMIDE HCL 5 MG TABLET GT SCH ×3 (05:13→22:42)
[2023-01-13 08:00] VITALS: TEMP 98.8
[2023-01-13] MEDS: HYDROGEN PEROXIDE 3% 118 ML BOTTLE TP SCH ×2 (08:08→19:05)
[2023-01-13] MEDS: FERROUS SULFATE 330 MG/7.5 ML UDC- FOR SA ONLY GT SCH ×2 (08:41→20:32)
[2023-01-13] MEDS: ACIDOPHILUS/BULGARICUS CHEW TAB GT SCH ×2 (08:41→20:32)
[2023-01-13] MEDS: PHENYTOIN 100 MG/4 ML UDC GT SCH ×2 (08:41→20:32)
[2023-01-13] MEDS: levETIRAcetam 500 MG/5 ML LIQUID UDC GT SCH ×2 (08:42→20:33)
[2023-01-13] MEDS: FUROSEMIDE 10 MG/ML GT SCH (08:42)
[2023-01-13] MEDS: REMEDY ESSENTIAL ZINC PASTE 113 GM TP SCH ×2 (08:42→20:33)
[2023-01-13] MEDS: POTASSIUM CHLORIDE 40 MEQ/30 ML LIQUID UDC GT SCH (08:42)
[2023-01-13] MEDS: VITAL AF 1.2 1,000 ML LIQUID GT PRN (17:37)
[2023-01-13 20:00] VITALS: TEMP 97.5
[2023-01-13] MEDS: FOLIC ACID 1 MG TABLET GT SCH (20:32)
[2023-01-13] MEDS: CHOLECALCIFEROL 1,000 UNIT TABLET GT SCH (20:33)
[2023-01-13] MEDS: THIAMINE HCL 100 MG TABLET GT SCH (20:33)
[2023-01-14] MEDS: ALBUTEROL SULFATE 2.5 MG/3 ML NEBU NEB SCH ×7 (03:07→23:25)
[2023-01-14] MEDS: IPRATROPIUM BROMIDE 0.5 MG/2.5 ML NEBU NEB SCH ×6 (03:07→23:13)
[2023-01-14] MEDS: OMEPRAZOLE 20 MG CAPSULE.DR GT SCH (06:50)
[2023-01-14] MEDS: METOCLOPRAMIDE HCL 5 MG TABLET GT SCH ×3 (06:50→21:46)
[2023-01-14] MEDS: BACLOFEN 20 MG TABLET GT SCH ×3 (06:50→21:45)
[2023-01-14] MEDS: VITAL AF 1.2 1,000 ML LIQUID GT PRN (06:50)
[2023-01-14] MEDS: MIDODRINE HCL 10 MG TABLET GT SCH ×3 (06:50→21:46)
[2023-01-14] MEDS: MAGNESIUM OXIDE 400 MG TABLET GT SCH (06:50)
[2023-01-14 08:00] VITALS: TEMP 97.7
[2023-01-14] MEDS: HYDROGEN PEROXIDE 3% 118 ML BOTTLE TP SCH ×2 (08:09→19:07)
[2023-01-14] MEDS: PHENYTOIN 100 MG/4 ML UDC GT SCH ×2 (09:09→20:39)
[2023-01-14] MEDS: levETIRAcetam 500 MG/5 ML LIQUID UDC GT SCH ×2 (09:09→20:39)
[2023-01-14] MEDS: FUROSEMIDE 10 MG/ML GT SCH (09:09)
[2023-01-14] MEDS: POTASSIUM CHLORIDE 40 MEQ/30 ML LIQUID UDC GT SCH (09:09)
[2023-01-14] MEDS: REMEDY ESSENTIAL ZINC PASTE 113 GM TP SCH ×2 (09:09→20:39)
[2023-01-14] MEDS: FERROUS SULFATE 330 MG/7.5 ML UDC- FOR SA ONLY GT SCH ×2 (09:09→20:39)
[2023-01-14] MEDS: ACIDOPHILUS/BULGARICUS CHEW TAB GT SCH ×2 (09:09→20:35)
[2023-01-14 20:00] VITALS: TEMP 96
[2023-01-14] MEDS: FOLIC ACID 1 MG TABLET GT SCH (20:39)
[2023-01-14] MEDS: CHOLECALCIFEROL 1,000 UNIT TABLET GT SCH (20:39)
[2023-01-14] MEDS: THIAMINE HCL 100 MG TABLET GT SCH (20:39)
[2023-01-14] MEDS: MIRALAX 17 GM POWD.PACK GT SCH (20:39)
[2023-01-15] MEDS: ALBUTEROL SULFATE 2.5 MG/3 ML NEBU NEB SCH ×5 (03:17→19:35)
[2023-01-15] MEDS: IPRATROPIUM BROMIDE 0.5 MG/2.5 ML NEBU NEB SCH ×6 (03:17→23:25)
[2023-01-15] MEDS: OMEPRAZOLE 20 MG CAPSULE.DR GT SCH (05:34)
[2023-01-15] MEDS: MIDODRINE HCL 10 MG TABLET GT SCH ×3 (05:34→21:14)
[2023-01-15] MEDS: MAGNESIUM OXIDE 400 MG TABLET GT SCH (05:34)
[2023-01-15] MEDS: METOCLOPRAMIDE HCL 5 MG TABLET GT SCH ×3 (05:34→21:15)
[2023-01-15] MEDS: BACLOFEN 20 MG TABLET GT SCH ×3 (05:34→21:14)
[2023-01-15 08:00] VITALS: TEMP 98
[2023-01-15] MEDS: PHENYTOIN 100 MG/4 ML UDC GT SCH ×2 (08:04→21:14)
[2023-01-15] MEDS: HYDROGEN PEROXIDE 3% 118 ML BOTTLE TP SCH ×2 (08:04→21:50)
[2023-01-15] MEDS: FERROUS SULFATE 330 MG/7.5 ML UDC- FOR SA ONLY GT SCH ×2 (08:04→21:14)
[2023-01-15] MEDS: ACIDOPHILUS/BULGARICUS CHEW TAB GT SCH ×2 (08:04→21:14)
[2023-01-15] MEDS: POTASSIUM CHLORIDE 40 MEQ/30 ML LIQUID UDC GT SCH (08:05)
[2023-01-15] MEDS: levETIRAcetam 500 MG/5 ML LIQUID UDC GT SCH ×2 (08:05→21:14)
[2023-01-15] MEDS: FUROSEMIDE 10 MG/ML GT SCH (08:05)
[2023-01-15] MEDS: REMEDY ESSENTIAL ZINC PASTE 113 GM TP SCH ×2 (08:06→21:14)
[2023-01-15] MEDS: VITAL AF 1.2 1,000 ML LIQUID GT PRN (12:29)
[2023-01-15 19:58] VITALS: TEMP 97.7
[2023-01-15] MEDS: THIAMINE HCL 100 MG TABLET GT SCH (21:14)
[2023-01-15] MEDS: CHOLECALCIFEROL 1,000 UNIT TABLET GT SCH (21:14)
[2023-01-15] MEDS: FOLIC ACID 1 MG TABLET GT SCH (21:14)
[2023-01-16] MEDS: IPRATROPIUM BROMIDE 0.5 MG/2.5 ML NEBU NEB SCH ×6 (03:20→23:24)
[2023-01-16] MEDS: ALBUTEROL SULFATE 2.5 MG/3 ML NEBU NEB SCH ×6 (03:20→23:24)
[2023-01-16] MEDS: BACLOFEN 20 MG TABLET GT SCH ×3 (06:03→21:28)
[2023-01-16] MEDS: MAGNESIUM OXIDE 400 MG TABLET GT SCH (06:03)
[2023-01-16] MEDS: MIDODRINE HCL 10 MG TABLET GT SCH ×3 (06:03→21:29)
[2023-01-16] MEDS: METOCLOPRAMIDE HCL 5 MG TABLET GT SCH ×3 (06:04→21:29)
[2023-01-16] MEDS: OMEPRAZOLE 20 MG CAPSULE.DR GT SCH (06:04)
[2023-01-16] MEDS: HYDROGEN PEROXIDE 3% 118 ML BOTTLE TP SCH ×2 (07:34→19:41)
[2023-01-16 07:49] VITALS: TEMP 98.6
[2023-01-16] MEDS: FERROUS SULFATE 330 MG/7.5 ML UDC- FOR SA ONLY GT SCH ×2 (08:17→21:28)
[2023-01-16] MEDS: PHENYTOIN 100 MG/4 ML UDC GT SCH ×2 (08:17→21:28)
[2023-01-16] MEDS: FUROSEMIDE 10 MG/ML GT SCH (08:17)
[2023-01-16] MEDS: ACIDOPHILUS/BULGARICUS CHEW TAB GT SCH ×2 (08:17→21:28)
[2023-01-16] MEDS: POTASSIUM CHLORIDE 40 MEQ/30 ML LIQUID UDC GT SCH (08:18)
[2023-01-16] MEDS: levETIRAcetam 500 MG/5 ML LIQUID UDC GT SCH ×2 (08:18→21:28)
[2023-01-16] MEDS: REMEDY ESSENTIAL ZINC PASTE 113 GM TP SCH ×2 (08:18→21:28)
[2023-01-16 20:00] VITALS: TEMP 98.5
[2023-01-16] MEDS: THIAMINE HCL 100 MG TABLET GT SCH (21:28)
[2023-01-16] MEDS: FOLIC ACID 1 MG TABLET GT SCH (21:28)
[2023-01-16] MEDS: CHOLECALCIFEROL 1,000 UNIT TABLET GT SCH (21:28)
[2023-01-16] MEDS: MIRALAX 17 GM POWD.PACK GT SCH (21:28)
[2023-01-17] MEDS: VITAL AF 1.2 1,000 ML LIQUID GT PRN (02:16)
[2023-01-17] MEDS: ALBUTEROL SULFATE 2.5 MG/3 ML NEBU NEB SCH ×6 (03:42→23:22)
[2023-01-17] MEDS: IPRATROPIUM BROMIDE 0.5 MG/2.5 ML NEBU NEB SCH ×6 (03:42→23:22)
[2023-01-17] MEDS: METOCLOPRAMIDE HCL 5 MG TABLET GT SCH ×3 (05:42→21:28)
[2023-01-17] MEDS: OMEPRAZOLE 20 MG CAPSULE.DR GT SCH (05:42)
[2023-01-17] MEDS: MAGNESIUM OXIDE 400 MG TABLET GT SCH (05:42)
[2023-01-17] MEDS: BACLOFEN 20 MG TABLET GT SCH ×3 (05:42→21:28)
[2023-01-17] MEDS: MIDODRINE HCL 10 MG TABLET GT SCH ×3 (05:42→21:28)
[2023-01-17 07:42] VITALS: TEMP 98
[2023-01-17] MEDS: HYDROGEN PEROXIDE 3% 118 ML BOTTLE TP SCH ×2 (08:14→19:19)
[2023-01-17] MEDS: PHENYTOIN 100 MG/4 ML UDC GT SCH ×2 (08:26→21:28)
[2023-01-17] MEDS: FUROSEMIDE 10 MG/ML GT SCH (08:26)
[2023-01-17] MEDS: FERROUS SULFATE 330 MG/7.5 ML UDC- FOR SA ONLY GT SCH ×2 (08:28→21:28)
[2023-01-17] MEDS: ACIDOPHILUS/BULGARICUS CHEW TAB GT SCH ×2 (08:28→21:28)
[2023-01-17] MEDS: levETIRAcetam 500 MG/5 ML LIQUID UDC GT SCH ×2 (08:28→21:28)
[2023-01-17] MEDS: POTASSIUM CHLORIDE 40 MEQ/30 ML LIQUID UDC GT SCH (08:29)
[2023-01-17] MEDS: REMEDY ESSENTIAL ZINC PASTE 113 GM TP SCH ×2 (08:31→21:28)
[2023-01-17 20:00] VITALS: TEMP 96
[2023-01-17] MEDS: CHOLECALCIFEROL 1,000 UNIT TABLET GT SCH (21:28)
[2023-01-17] MEDS: FOLIC ACID 1 MG TABLET GT SCH (21:28)
[2023-01-17] MEDS: THIAMINE HCL 100 MG TABLET GT SCH (21:28)
[2023-01-18] MEDS: ALBUTEROL SULFATE 2.5 MG/3 ML NEBU NEB SCH ×6 (03:48→23:07)
[2023-01-18] MEDS: IPRATROPIUM BROMIDE 0.5 MG/2.5 ML NEBU NEB SCH ×6 (03:48→23:07)
[2023-01-18] MEDS: BACLOFEN 20 MG TABLET GT SCH ×3 (05:35→22:02)
[2023-01-18] MEDS: METOCLOPRAMIDE HCL 5 MG TABLET GT SCH ×3 (05:35→22:02)
[2023-01-18] MEDS: OMEPRAZOLE 20 MG CAPSULE.DR GT SCH (05:35)
[2023-01-18] MEDS: MAGNESIUM OXIDE 400 MG TABLET GT SCH (05:35)
[2023-01-18] MEDS: MIDODRINE HCL 10 MG TABLET GT SCH ×3 (05:35→22:02)
[2023-01-18 07:50] VITALS: TEMP 97.6
[2023-01-18] MEDS: FUROSEMIDE 10 MG/ML GT SCH (08:23)
[2023-01-18] MEDS: ACIDOPHILUS/BULGARICUS CHEW TAB GT SCH ×2 (08:26→20:43)
[2023-01-18] MEDS: FERROUS SULFATE 330 MG/7.5 ML UDC- FOR SA ONLY GT SCH ×2 (08:27→20:43)
[2023-01-18] MEDS: levETIRAcetam 500 MG/5 ML LIQUID UDC GT SCH ×2 (08:29→20:44)
[2023-01-18] MEDS: POTASSIUM CHLORIDE 40 MEQ/30 ML LIQUID UDC GT SCH (08:30)
[2023-01-18] MEDS: PHENYTOIN 100 MG/4 ML UDC GT SCH ×2 (08:31→20:43)
[2023-01-18] MEDS: REMEDY ESSENTIAL ZINC PASTE 113 GM TP SCH ×2 (08:31→20:44)
[2023-01-18] MEDS: HYDROGEN PEROXIDE 3% 118 ML BOTTLE TP SCH ×2 (08:33→20:01)
[2023-01-18 19:57] VITALS: TEMP 97.5
[2023-01-18] MEDS: THIAMINE HCL 100 MG TABLET GT SCH (20:44)
[2023-01-18] MEDS: FOLIC ACID 1 MG TABLET GT SCH (20:44)
[2023-01-18] MEDS: CHOLECALCIFEROL 1,000 UNIT TABLET GT SCH (20:44)
[2023-01-18] MEDS: [UNRECOGNIZED DRUG - OTHER] PR PRN (23:00)
[2023-01-18] MEDS: VITAL AF 1.2 1,000 ML LIQUID GT PRN (23:07)
[2023-01-19] MEDS: ALBUTEROL SULFATE 2.5 MG/3 ML NEBU NEB SCH ×6 (03:44→23:04)
[2023-01-19] MEDS: IPRATROPIUM BROMIDE 0.5 MG/2.5 ML NEBU NEB SCH ×6 (03:44→23:03)
[2023-01-19] MEDS: MAGNESIUM OXIDE 400 MG TABLET GT SCH (05:40)
[2023-01-19] MEDS: BACLOFEN 20 MG TABLET GT SCH ×3 (05:40→21:10)
[2023-01-19] MEDS: OMEPRAZOLE 20 MG CAPSULE.DR GT SCH (05:41)
[2023-01-19] MEDS: METOCLOPRAMIDE HCL 5 MG TABLET GT SCH ×3 (05:41→21:11)
[2023-01-19] MEDS: MIDODRINE HCL 10 MG TABLET GT SCH ×3 (05:41→21:10)
[2023-01-19 06:36] LABS: BASOPHILS # (AUTO) 0.1 K/UL (0.0-0.2); BASOPHILS % (AUTO) 0.9 % (0.0-2.0); EOSINOPHILS # (AUTO) 0.3 K/uL (0.0-0.7); EOSINOPHILS % (AUTO) 4.4 % (0.0-7.0); HEMATOCRIT 32.6 % (31.2-41.9); HEMOGLOBIN 11.3 g/dL (10.9-14.3); LYMPHOCYTES # (AUTO) 2.1 K/uL (0.8-4.8); LYMPHOCYTES % (AUTO) 33.5 % (20.5-51.5); MEAN CORPUSCULAR HEMOGLOBIN 31.9 uug (24.7-32.8); MEAN CORPUSCULAR HGB CONC 35 g/dL (32.3-35.6); MONOCYTES # (AUTO) 0.5 K/uL (0.1-1.30); MONOCYTES % (AUTO) 7.8 % (0.0-11.0); NEUTROPHILS # (AUTO) 3.3 K/uL (1.8-8.9); NEUTROPHILS % (AUTO) 53.4 % (38.5-71.5); PLATELET COUNT (AUTO) 411 K/uL (179-408); RED BLOOD CELL COUNT(AUTO) 3.54 MIL/uL (3.63-4.92); RED CELL DISTRIBUTION WIDTH 16.8 % (12.3-17.7); WHITE BLOOD COUNT (AUTO) 6.2 K/uL (3.8-11.8)
[2023-01-19 06:42] LABS: DIFFERENTIAL COMMENT 1
[2023-01-19 07:00] LABS: CALCIUM 8.5 mg/dL (8.5-10.1); CREATININE 0.6 mg/dL (0.6-1.3); MAGNESIUM 2.1 mg/dL (1.8-2.4); PHOSPHOROUS 4.2 mg/dL (2.5-4.9); POTASSIUM 3.9 mmol/L (3.5-5.1)
[2023-01-19] MEDS: HYDROGEN PEROXIDE 3% 118 ML BOTTLE TP SCH ×2 (07:21→20:51)
[2023-01-19 07:44] VITALS: TEMP 98
[2023-01-19] MEDS: FERROUS SULFATE 330 MG/7.5 ML UDC- FOR SA ONLY GT SCH ×2 (09:28→21:10)
[2023-01-19] MEDS: levETIRAcetam 500 MG/5 ML LIQUID UDC GT SCH ×2 (09:28→21:10)
[2023-01-19] MEDS: POTASSIUM CHLORIDE 40 MEQ/30 ML LIQUID UDC GT SCH (09:28)
[2023-01-19] MEDS: FUROSEMIDE 10 MG/ML GT SCH (09:28)
[2023-01-19] MEDS: ACIDOPHILUS/BULGARICUS CHEW TAB GT SCH ×2 (09:28→21:10)
[2023-01-19] MEDS: PHENYTOIN 100 MG/4 ML UDC GT SCH ×2 (09:28→21:10)
[2023-01-19] MEDS: REMEDY ESSENTIAL ZINC PASTE 113 GM TP SCH ×2 (09:28→21:10)
[2023-01-19 20:34] VITALS: TEMP 98.1
[2023-01-19] MEDS: MIRALAX 17 GM POWD.PACK GT SCH (21:10)
[2023-01-19] MEDS: FOLIC ACID 1 MG TABLET GT SCH (21:10)
[2023-01-19] MEDS: CHOLECALCIFEROL 1,000 UNIT TABLET GT SCH (21:10)
[2023-01-19] MEDS: THIAMINE HCL 100 MG TABLET GT SCH (21:10)
[2023-01-20] MEDS: IPRATROPIUM BROMIDE 0.5 MG/2.5 ML NEBU NEB SCH ×6 (03:20→22:58)
[2023-01-20] MEDS: ALBUTEROL SULFATE 2.5 MG/3 ML NEBU NEB SCH ×6 (03:22→22:58)
[2023-01-20] MEDS: MIDODRINE HCL 10 MG TABLET GT SCH ×3 (06:34→21:07)
[2023-01-20] MEDS: OMEPRAZOLE 20 MG CAPSULE.DR GT SCH (06:34)
[2023-01-20] MEDS: BACLOFEN 20 MG TABLET GT SCH ×3 (06:34→21:06)
[2023-01-20] MEDS: MAGNESIUM OXIDE 400 MG TABLET GT SCH (06:34)
[2023-01-20] MEDS: METOCLOPRAMIDE HCL 5 MG TABLET GT SCH ×3 (06:34→21:07)
[2023-01-20] MEDS: HYDROGEN PEROXIDE 3% 118 ML BOTTLE TP SCH ×2 (07:33→19:08)
[2023-01-20] MEDS: REMEDY ESSENTIAL ZINC PASTE 113 GM TP SCH ×2 (09:00→21:06)
[2023-01-20] MEDS: levETIRAcetam 500 MG/5 ML LIQUID UDC GT SCH ×2 (09:00→21:06)
[2023-01-20] MEDS: POTASSIUM CHLORIDE 40 MEQ/30 ML LIQUID UDC GT SCH (09:00)
[2023-01-20] MEDS: FUROSEMIDE 10 MG/ML GT SCH (09:00)
[2023-01-20] MEDS: FERROUS SULFATE 330 MG/7.5 ML UDC- FOR SA ONLY GT SCH ×2 (09:00→21:06)
[2023-01-20] MEDS: PHENYTOIN 100 MG/4 ML UDC GT SCH ×2 (09:00→21:06)
[2023-01-20] MEDS: ACIDOPHILUS/BULGARICUS CHEW TAB GT SCH ×2 (09:00→21:06)
[2023-01-20 09:20] VITALS: TEMP 97
[2023-01-20] MEDS: VITAL AF 1.2 1,000 ML LIQUID GT PRN (10:47)
[2023-01-20 20:00] VITALS: TEMP 94.6
[2023-01-20] MEDS: THIAMINE HCL 100 MG TABLET GT SCH (21:06)
[2023-01-20] MEDS: CHOLECALCIFEROL 1,000 UNIT TABLET GT SCH (21:06)
[2023-01-20] MEDS: FOLIC ACID 1 MG TABLET GT SCH (21:06)
[2023-01-21] MEDS: IPRATROPIUM BROMIDE 0.5 MG/2.5 ML NEBU NEB SCH ×6 (03:02→23:41)
[2023-01-21] MEDS: ALBUTEROL SULFATE 2.5 MG/3 ML NEBU NEB SCH ×6 (03:02→23:41)
[2023-01-21 03:57] VITALS: TEMP 98.6
[2023-01-21] MEDS: BACLOFEN 20 MG TABLET GT SCH ×3 (06:27→21:09)
[2023-01-21] MEDS: MAGNESIUM OXIDE 400 MG TABLET GT SCH (06:27)
[2023-01-21] MEDS: OMEPRAZOLE 20 MG CAPSULE.DR GT SCH (06:28)
[2023-01-21] MEDS: METOCLOPRAMIDE HCL 5 MG TABLET GT SCH ×3 (06:28→21:10)
[2023-01-21] MEDS: MIDODRINE HCL 10 MG TABLET GT SCH ×3 (06:28→21:10)
[2023-01-21] MEDS: HYDROGEN PEROXIDE 3% 118 ML BOTTLE TP SCH ×2 (07:12→19:09)
[2023-01-21] MEDS: PHENYTOIN 100 MG/4 ML UDC GT SCH ×2 (08:14→21:09)
[2023-01-21] MEDS: FUROSEMIDE 10 MG/ML GT SCH (08:15)
[2023-01-21] MEDS: FERROUS SULFATE 330 MG/7.5 ML UDC- FOR SA ONLY GT SCH ×2 (08:15→21:09)
[2023-01-21] MEDS: ACIDOPHILUS/BULGARICUS CHEW TAB GT SCH ×2 (08:15→21:09)
[2023-01-21] MEDS: levETIRAcetam 500 MG/5 ML LIQUID UDC GT SCH ×2 (08:16→21:09)
[2023-01-21] MEDS: REMEDY ESSENTIAL ZINC PASTE 113 GM TP SCH ×2 (08:19→21:09)
[2023-01-21] MEDS: POTASSIUM CHLORIDE 40 MEQ/30 ML LIQUID UDC GT SCH (08:19)
[2023-01-21 10:58] VITALS: TEMP 99.6
[2023-01-21] MEDS: VITAL AF 1.2 1,000 ML LIQUID GT PRN (16:56)
[2023-01-21 20:37] VITALS: TEMP 98.7
[2023-01-21] MEDS: MIRALAX 17 GM POWD.PACK GT SCH (21:09)
[2023-01-21] MEDS: THIAMINE HCL 100 MG TABLET GT SCH (21:09)
[2023-01-21] MEDS: CHOLECALCIFEROL 1,000 UNIT TABLET GT SCH (21:09)
[2023-01-21] MEDS: FOLIC ACID 1 MG TABLET GT SCH (21:09)
[2023-01-22] MEDS: ALBUTEROL SULFATE 2.5 MG/3 ML NEBU NEB SCH ×6 (03:32→23:36)
[2023-01-22] MEDS: IPRATROPIUM BROMIDE 0.5 MG/2.5 ML NEBU NEB SCH ×6 (03:32→23:36)
[2023-01-22] MEDS: MAGNESIUM OXIDE 400 MG TABLET GT SCH (06:17)
[2023-01-22] MEDS: BACLOFEN 20 MG TABLET GT SCH ×3 (06:17→22:07)
[2023-01-22] MEDS: OMEPRAZOLE 20 MG CAPSULE.DR GT SCH (06:18)
[2023-01-22] MEDS: METOCLOPRAMIDE HCL 5 MG TABLET GT SCH ×3 (06:18→22:08)
[2023-01-22] MEDS: MIDODRINE HCL 10 MG TABLET GT SCH ×3 (06:18→22:08)
[2023-01-22 07:05] LABS: BASOPHILS # (AUTO) 0.1 K/UL (0.0-0.2); BASOPHILS % (AUTO) 0.9 % (0.0-2.0); DIFFERENTIAL COMMENT 1; EOSINOPHILS # (AUTO) 0.2 K/uL (0.0-0.7); EOSINOPHILS % (AUTO) 2.1 % (0.0-7.0); HEMATOCRIT 32.8 % (31.2-41.9); HEMOGLOBIN 11.1 g/dL (10.9-14.3); LYMPHOCYTES # (AUTO) 2.2 K/uL (0.8-4.8); LYMPHOCYTES % (AUTO) 24.4 % (20.5-51.5); MEAN CORPUSCULAR HEMOGLOBIN 31.4 uug (24.7-32.8); MEAN CORPUSCULAR HGB CONC 34 g/dL (32.3-35.6); MEAN CORPUSCULAR VOLUME 92.6 fL (75.5-95.3); MONOCYTES # (AUTO) 0.5 K/uL (0.1-1.30); MONOCYTES % (AUTO) 5.8 % (0.0-11.0); NEUTROPHILS # (AUTO) 6.2 K/uL (1.8-8.9); NEUTROPHILS % (AUTO) 66.8 % (38.5-71.5); PLATELET COUNT (AUTO) 444 K/uL (179-408); RED BLOOD CELL COUNT(AUTO) 3.54 MIL/uL (3.63-4.92); RED CELL DISTRIBUTION WIDTH 17.2 % (12.3-17.7); WHITE BLOOD COUNT (AUTO) 9.2 K/uL (3.8-11.8)
[2023-01-22 07:24] LABS: CALCIUM 8.4 mg/dL (8.5-10.1); CREATININE 0.6 mg/dL (0.6-1.3); MAGNESIUM 2.2 mg/dL (1.8-2.4); PHOSPHOROUS 3.8 mg/dL (2.5-4.9); POTASSIUM 3.4 mmol/L (3.5-5.1)
[2023-01-22 07:32] VITALS: TEMP 97.2
[2023-01-22] MEDS: FERROUS SULFATE 330 MG/7.5 ML UDC- FOR SA ONLY GT SCH ×2 (08:24→20:57)
[2023-01-22] MEDS: POTASSIUM CHLORIDE 40 MEQ/30 ML LIQUID UDC GT SCH (08:24)
[2023-01-22] MEDS: PHENYTOIN 100 MG/4 ML UDC GT SCH ×2 (08:24→20:57)
[2023-01-22] MEDS: ACIDOPHILUS/BULGARICUS CHEW TAB GT SCH ×2 (08:24→20:57)
[2023-01-22] MEDS: levETIRAcetam 500 MG/5 ML LIQUID UDC GT SCH ×2 (08:24→20:57)
[2023-01-22] MEDS: FUROSEMIDE 10 MG/ML GT SCH (08:24)
[2023-01-22] MEDS: HYDROGEN PEROXIDE 3% 118 ML BOTTLE TP SCH ×2 (09:00→19:14)
[2023-01-22] MEDS: REMEDY ESSENTIAL ZINC PASTE 113 GM TP SCH ×2 (09:00→20:57)
[2023-01-22] MEDS ORDERED: POTASSIUM CHLORIDE 40 MEQ/30 ML LIQUID UDC GT ONE (11:00)
[2023-01-22 20:00] VITALS: TEMP 98.3
[2023-01-22] MEDS: FOLIC ACID 1 MG TABLET GT SCH (20:57)
[2023-01-22] MEDS: CHOLECALCIFEROL 1,000 UNIT TABLET GT SCH (20:57)
[2023-01-22] MEDS: THIAMINE HCL 100 MG TABLET GT SCH (20:57)
[2023-01-23] MEDS: ALBUTEROL SULFATE 2.5 MG/3 ML NEBU NEB SCH ×6 (03:34→23:00)
[2023-01-23] MEDS: IPRATROPIUM BROMIDE 0.5 MG/2.5 ML NEBU NEB SCH ×6 (03:34→23:00)
[2023-01-23] MEDS: VITAL AF 1.2 1,000 ML LIQUID GT PRN (04:16)
[2023-01-23] MEDS: MIDODRINE HCL 10 MG TABLET GT SCH ×3 (05:47→21:19)
[2023-01-23] MEDS: OMEPRAZOLE 20 MG CAPSULE.DR GT SCH (05:47)
[2023-01-23] MEDS: METOCLOPRAMIDE HCL 5 MG TABLET GT SCH ×3 (05:47→21:19)
[2023-01-23] MEDS: BACLOFEN 20 MG TABLET GT SCH ×3 (05:47→21:19)
[2023-01-23] MEDS: MAGNESIUM OXIDE 400 MG TABLET GT SCH (05:47)
[2023-01-23] MEDS: HYDROGEN PEROXIDE 3% 118 ML BOTTLE TP SCH ×2 (07:14→19:12)
[2023-01-23 07:50] VITALS: TEMP 97.5
[2023-01-23] MEDS: ACIDOPHILUS/BULGARICUS CHEW TAB GT SCH ×2 (09:20→21:18)
[2023-01-23] MEDS: FERROUS SULFATE 330 MG/7.5 ML UDC- FOR SA ONLY GT SCH ×2 (09:20→21:18)
[2023-01-23] MEDS: POTASSIUM CHLORIDE 40 MEQ/30 ML LIQUID UDC GT SCH (09:20)
[2023-01-23] MEDS: FUROSEMIDE 10 MG/ML GT SCH (09:20)
[2023-01-23] MEDS: REMEDY ESSENTIAL ZINC PASTE 113 GM TP SCH ×2 (09:20→21:19)
[2023-01-23] MEDS: levETIRAcetam 500 MG/5 ML LIQUID UDC GT SCH ×2 (09:20→21:18)
[2023-01-23] MEDS: PHENYTOIN 100 MG/4 ML UDC GT SCH ×2 (09:20→21:18)
[2023-01-23 20:01] VITALS: TEMP 98.4
[2023-01-23] MEDS: CHOLECALCIFEROL 1,000 UNIT TABLET GT SCH (21:18)
[2023-01-23] MEDS: MIRALAX 17 GM POWD.PACK GT SCH (21:18)
[2023-01-23] MEDS: THIAMINE HCL 100 MG TABLET GT SCH (21:18)
[2023-01-23] MEDS: FOLIC ACID 1 MG TABLET GT SCH (21:18)
[2023-01-24] MEDS: ALBUTEROL SULFATE 2.5 MG/3 ML NEBU NEB SCH ×6 (03:06→23:01)
[2023-01-24] MEDS: IPRATROPIUM BROMIDE 0.5 MG/2.5 ML NEBU NEB SCH ×6 (03:06→23:01)
[2023-01-24] MEDS: MIDODRINE HCL 10 MG TABLET GT SCH ×3 (05:20→22:50)
[2023-01-24] MEDS: MAGNESIUM OXIDE 400 MG TABLET GT SCH (05:20)
[2023-01-24] MEDS: BACLOFEN 20 MG TABLET GT SCH ×3 (05:20→22:50)
[2023-01-24] MEDS: METOCLOPRAMIDE HCL 5 MG TABLET GT SCH ×3 (05:21→22:50)
[2023-01-24] MEDS: OMEPRAZOLE 20 MG CAPSULE.DR GT SCH (05:21)
[2023-01-24 07:15] VITALS: O2SAT 98
[2023-01-24 07:36] VITALS: TEMP 97.9
[2023-01-24] MEDS: HYDROGEN PEROXIDE 3% 118 ML BOTTLE TP SCH ×2 (08:22→19:06)
[2023-01-24] MEDS: ACIDOPHILUS/BULGARICUS CHEW TAB GT SCH ×2 (08:25→20:22)
[2023-01-24] MEDS: FUROSEMIDE 10 MG/ML GT SCH (08:25)
[2023-01-24] MEDS: REMEDY ESSENTIAL ZINC PASTE 113 GM TP SCH ×2 (08:25→20:24)
[2023-01-24] MEDS: PHENYTOIN 100 MG/4 ML UDC GT SCH ×2 (08:25→20:21)
[2023-01-24] MEDS: POTASSIUM CHLORIDE 40 MEQ/30 ML LIQUID UDC GT SCH (08:25)
[2023-01-24] MEDS: FERROUS SULFATE 330 MG/7.5 ML UDC- FOR SA ONLY GT SCH ×2 (08:25→20:22)
[2023-01-24] MEDS: levETIRAcetam 500 MG/5 ML LIQUID UDC GT SCH ×2 (08:25→20:24)
[2023-01-24] MEDS: VITAL AF 1.2 1,000 ML LIQUID GT PRN (19:26)
[2023-01-24 19:59] VITALS: TEMP 96.6
[2023-01-24] MEDS: FOLIC ACID 1 MG TABLET GT SCH (20:22)
[2023-01-24] MEDS: CHOLECALCIFEROL 1,000 UNIT TABLET GT SCH (20:24)
[2023-01-24] MEDS: THIAMINE HCL 100 MG TABLET GT SCH (20:24)
[2023-01-25] MEDS: IPRATROPIUM BROMIDE 0.5 MG/2.5 ML NEBU NEB SCH ×6 (03:19→22:56)
[2023-01-25] MEDS: ALBUTEROL SULFATE 2.5 MG/3 ML NEBU NEB SCH ×6 (03:20→22:56)
[2023-01-25] MEDS: BACLOFEN 20 MG TABLET GT SCH ×3 (05:13→21:25)
[2023-01-25] MEDS: MAGNESIUM OXIDE 400 MG TABLET GT SCH (05:19)
[2023-01-25] MEDS: OMEPRAZOLE 20 MG CAPSULE.DR GT SCH (05:20)
[2023-01-25] MEDS: METOCLOPRAMIDE HCL 5 MG TABLET GT SCH ×3 (05:20→21:26)
[2023-01-25] MEDS: MIDODRINE HCL 10 MG TABLET GT SCH ×3 (05:20→21:26)
[2023-01-25 08:00] VITALS: TEMP 97.4
[2023-01-25] MEDS: HYDROGEN PEROXIDE 3% 118 ML BOTTLE TP SCH ×2 (08:11→19:03)
[2023-01-25] MEDS: ACIDOPHILUS/BULGARICUS CHEW TAB GT SCH ×2 (08:23→20:19)
[2023-01-25] MEDS: POTASSIUM CHLORIDE 40 MEQ/30 ML LIQUID UDC GT SCH (08:23)
[2023-01-25] MEDS: FERROUS SULFATE 330 MG/7.5 ML UDC- FOR SA ONLY GT SCH ×2 (08:23→20:19)
[2023-01-25] MEDS: levETIRAcetam 500 MG/5 ML LIQUID UDC GT SCH ×2 (08:23→20:20)
[2023-01-25] MEDS: PHENYTOIN 100 MG/4 ML UDC GT SCH ×2 (08:23→20:19)
[2023-01-25] MEDS: FUROSEMIDE 10 MG/ML GT SCH (08:23)
[2023-01-25] MEDS: REMEDY ESSENTIAL ZINC PASTE 113 GM TP SCH ×2 (08:23→20:21)
[2023-01-25] MEDS: FOLIC ACID 1 MG TABLET GT SCH (20:19)
[2023-01-25] MEDS: THIAMINE HCL 100 MG TABLET GT SCH (20:20)
[2023-01-25] MEDS: CHOLECALCIFEROL 1,000 UNIT TABLET GT SCH (20:20)
[2023-01-25 20:28] VITALS: TEMP 98.3
[2023-01-26] MEDS: ALBUTEROL SULFATE 2.5 MG/3 ML NEBU NEB SCH ×6 (03:15→23:36)
[2023-01-26] MEDS: IPRATROPIUM BROMIDE 0.5 MG/2.5 ML NEBU NEB SCH ×6 (03:15→23:36)
[2023-01-26] MEDS: OMEPRAZOLE 20 MG CAPSULE.DR GT SCH (05:12)
[2023-01-26] MEDS: BACLOFEN 20 MG TABLET GT SCH ×3 (05:12→22:16)
[2023-01-26] MEDS: MIDODRINE HCL 10 MG TABLET GT SCH ×3 (05:12→22:17)
[2023-01-26] MEDS: MAGNESIUM OXIDE 400 MG TABLET GT SCH (05:12)
[2023-01-26] MEDS: METOCLOPRAMIDE HCL 5 MG TABLET GT SCH ×3 (05:12→22:16)
[2023-01-26 06:57] LABS: CALCIUM 8.6 mg/dL (8.5-10.1); CARBON DIOXIDE 21 mmol/L (21-32); CHLORIDE 107 mmol/L (98-107); CREATININE 0.5 mg/dL (0.6-1.3); GLUCOSE 85 mg/dL (74-106); MAGNESIUM 2.3 mg/dL (1.8-2.4); PHOSPHOROUS 3.5 mg/dL (2.5-4.9); POTASSIUM 3.6 mmol/L (3.5-5.1); SODIUM SERUM 140 mmol/L (136-145); UREA NITROGEN, BLOOD 12 mg/dL (7-18)
[2023-01-26 07:07] LABS: BASOPHILS # (AUTO) 0.1 K/UL (0.0-0.2); BASOPHILS % (AUTO) 1.7 % (0.0-2.0); EOSINOPHILS # (AUTO) 0.3 K/uL (0.0-0.7); EOSINOPHILS % (AUTO) 5.5 % (0.0-7.0); HEMATOCRIT 32.7 % (31.2-41.9); HEMOGLOBIN 11.1 g/dL (10.9-14.3); LYMPHOCYTES # (AUTO) 2.1 K/uL (0.8-4.8); LYMPHOCYTES % (AUTO) 39.2 % (20.5-51.5); MEAN CORPUSCULAR HEMOGLOBIN 31.3 uug (24.7-32.8); MEAN CORPUSCULAR HGB CONC 34 g/dL (32.3-35.6); MEAN CORPUSCULAR VOLUME 92.2 fL (75.5-95.3); MONOCYTES # (AUTO) 0.5 K/uL (0.1-1.30); MONOCYTES % (AUTO) 9.2 % (0.0-11.0); NEUTROPHILS # (AUTO) 2.4 K/uL (1.8-8.9); NEUTROPHILS % (AUTO) 44.4 % (38.5-71.5); PLATELET COUNT (AUTO) 461 K/uL (179-408); RED BLOOD CELL COUNT(AUTO) 3.55 MIL/uL (3.63-4.92); RED CELL DISTRIBUTION WIDTH 17.2 % (12.3-17.7); WHITE BLOOD COUNT (AUTO) 5.5 K/uL (3.8-11.8)
[2023-01-26 07:12] LABS: DIFFERENTIAL COMMENT 1
[2023-01-26] MEDS: HYDROGEN PEROXIDE 3% 118 ML BOTTLE TP SCH ×2 (07:15→19:06)
[2023-01-26] MEDS: PHENYTOIN 100 MG/4 ML UDC GT SCH ×2 (09:46→20:33)
[2023-01-26] MEDS: ACIDOPHILUS/BULGARICUS CHEW TAB GT SCH ×2 (09:46→20:33)
[2023-01-26] MEDS: POTASSIUM CHLORIDE 40 MEQ/30 ML LIQUID UDC GT SCH (09:46)
[2023-01-26] MEDS: REMEDY ESSENTIAL ZINC PASTE 113 GM TP SCH ×2 (09:46→20:38)
[2023-01-26] MEDS: FERROUS SULFATE 330 MG/7.5 ML UDC- FOR SA ONLY GT SCH ×2 (09:46→20:33)
[2023-01-26] MEDS: FUROSEMIDE 10 MG/ML GT SCH (09:46)
[2023-01-26] MEDS: levETIRAcetam 500 MG/5 ML LIQUID UDC GT SCH ×2 (09:46→20:37)
[2023-01-26 10:33] VITALS: TEMP 97.9
[2023-01-26 20:00] VITALS: TEMP 97.7
[2023-01-26] MEDS: FOLIC ACID 1 MG TABLET GT SCH (20:37)
[2023-01-26] MEDS: MIRALAX 17 GM POWD.PACK GT SCH (20:38)
[2023-01-26] MEDS: THIAMINE HCL 100 MG TABLET GT SCH (20:38)
[2023-01-26] MEDS: CHOLECALCIFEROL 1,000 UNIT TABLET GT SCH (20:38)
[2023-01-27] MEDS: ALBUTEROL SULFATE 2.5 MG/3 ML NEBU NEB SCH ×6 (03:03→23:22)
[2023-01-27] MEDS: IPRATROPIUM BROMIDE 0.5 MG/2.5 ML NEBU NEB SCH ×6 (03:03→23:22)
[2023-01-27] MEDS: MAGNESIUM OXIDE 400 MG TABLET GT SCH (05:14)
[2023-01-27] MEDS: BACLOFEN 20 MG TABLET GT SCH ×3 (05:14→22:00)
[2023-01-27] MEDS: METOCLOPRAMIDE HCL 5 MG TABLET GT SCH ×3 (05:15→22:00)
[2023-01-27] MEDS: OMEPRAZOLE 20 MG CAPSULE.DR GT SCH (05:15)
[2023-01-27] MEDS: MIDODRINE HCL 10 MG TABLET GT SCH ×3 (05:15→21:35)
[2023-01-27] MEDS: HYDROGEN PEROXIDE 3% 118 ML BOTTLE TP SCH ×2 (07:33→20:42)
[2023-01-27] MEDS: FUROSEMIDE 10 MG/ML GT SCH (08:32)
[2023-01-27] MEDS: PHENYTOIN 100 MG/4 ML UDC GT SCH ×2 (08:34→21:36)
[2023-01-27] MEDS: REMEDY ESSENTIAL ZINC PASTE 113 GM TP SCH ×2 (08:35→21:36)
[2023-01-27] MEDS: ACIDOPHILUS/BULGARICUS CHEW TAB GT SCH ×2 (08:35→21:36)
[2023-01-27] MEDS: levETIRAcetam 500 MG/5 ML LIQUID UDC GT SCH ×2 (08:35→21:36)
[2023-01-27] MEDS: POTASSIUM CHLORIDE 40 MEQ/30 ML LIQUID UDC GT SCH (08:35)
[2023-01-27] MEDS: FERROUS SULFATE 330 MG/7.5 ML UDC- FOR SA ONLY GT SCH ×2 (08:35→21:36)
[2023-01-27 09:21] VITALS: TEMP 97.7
[2023-01-27 20:00] VITALS: TEMP 97.8
[2023-01-27] MEDS: THIAMINE HCL 100 MG TABLET GT SCH (21:36)
[2023-01-27] MEDS: FOLIC ACID 1 MG TABLET GT SCH (21:36)
[2023-01-27] MEDS: CHOLECALCIFEROL 1,000 UNIT TABLET GT SCH (21:36)
[2023-01-28] MEDS: IPRATROPIUM BROMIDE 0.5 MG/2.5 ML NEBU NEB SCH ×6 (03:00→23:31)
[2023-01-28] MEDS: ALBUTEROL SULFATE 2.5 MG/3 ML NEBU NEB SCH ×6 (03:00→23:31)
[2023-01-28] MEDS: MAGNESIUM OXIDE 400 MG TABLET GT SCH (06:00)
[2023-01-28] MEDS: BACLOFEN 20 MG TABLET GT SCH ×3 (06:00→21:15)
[2023-01-28] MEDS: MIDODRINE HCL 10 MG TABLET GT SCH ×3 (06:01→21:16)
[2023-01-28] MEDS: METOCLOPRAMIDE HCL 5 MG TABLET GT SCH ×3 (06:01→21:16)
[2023-01-28] MEDS: OMEPRAZOLE 20 MG CAPSULE.DR GT SCH (06:01)
[2023-01-28] MEDS: HYDROGEN PEROXIDE 3% 118 ML BOTTLE TP SCH ×2 (07:32→19:14)
[2023-01-28] MEDS: ACIDOPHILUS/BULGARICUS CHEW TAB GT SCH ×2 (08:21→21:12)
[2023-01-28] MEDS: FERROUS SULFATE 330 MG/7.5 ML UDC- FOR SA ONLY GT SCH ×2 (08:21→21:11)
[2023-01-28] MEDS: FUROSEMIDE 10 MG/ML GT SCH (08:27)
[2023-01-28] MEDS: POTASSIUM CHLORIDE 40 MEQ/30 ML LIQUID UDC GT SCH (08:28)
[2023-01-28] MEDS: REMEDY ESSENTIAL ZINC PASTE 113 GM TP SCH ×2 (08:28→21:15)
[2023-01-28] MEDS: levETIRAcetam 500 MG/5 ML LIQUID UDC GT SCH ×2 (08:28→21:13)
[2023-01-28] MEDS: PHENYTOIN 100 MG/4 ML UDC GT SCH ×2 (08:29→21:11)
[2023-01-28 10:48] VITALS: TEMP 97
[2023-01-28 20:00] VITALS: TEMP 97.8
[2023-01-28] MEDS: FOLIC ACID 1 MG TABLET GT SCH (21:12)
[2023-01-28] MEDS: MIRALAX 17 GM POWD.PACK GT SCH (21:15)
[2023-01-28] MEDS: THIAMINE HCL 100 MG TABLET GT SCH (21:15)
[2023-01-28] MEDS: CHOLECALCIFEROL 1,000 UNIT TABLET GT SCH (21:15)
[2023-01-29] MEDS: ALBUTEROL SULFATE 2.5 MG/3 ML NEBU NEB SCH ×6 (03:07→23:20)
[2023-01-29] MEDS: IPRATROPIUM BROMIDE 0.5 MG/2.5 ML NEBU NEB SCH ×6 (03:07→23:20)
[2023-01-29] MEDS: MIDODRINE HCL 10 MG TABLET GT SCH ×3 (05:58→21:00)
[2023-01-29] MEDS: BACLOFEN 20 MG TABLET GT SCH ×3 (05:58→21:00)
[2023-01-29] MEDS: MAGNESIUM OXIDE 400 MG TABLET GT SCH (05:58)
[2023-01-29] MEDS: OMEPRAZOLE 20 MG CAPSULE.DR GT SCH (05:59)
[2023-01-29] MEDS: METOCLOPRAMIDE HCL 5 MG TABLET GT SCH ×3 (05:59→21:00)
[2023-01-29] MEDS: HYDROGEN PEROXIDE 3% 118 ML BOTTLE TP SCH ×2 (07:20→19:17)
[2023-01-29 07:59] VITALS: TEMP 97.1
[2023-01-29] MEDS: FERROUS SULFATE 330 MG/7.5 ML UDC- FOR SA ONLY GT SCH ×2 (09:22→20:56)
[2023-01-29] MEDS: ACIDOPHILUS/BULGARICUS CHEW TAB GT SCH ×2 (09:22→20:57)
[2023-01-29] MEDS: PHENYTOIN 100 MG/4 ML UDC GT SCH ×2 (09:22→20:56)
[2023-01-29] MEDS: levETIRAcetam 500 MG/5 ML LIQUID UDC GT SCH ×2 (09:23→20:58)
[2023-01-29] MEDS: FUROSEMIDE 10 MG/ML GT SCH (09:23)
[2023-01-29] MEDS: REMEDY ESSENTIAL ZINC PASTE 113 GM TP SCH ×2 (09:25→20:59)
[2023-01-29] MEDS: POTASSIUM CHLORIDE 40 MEQ/30 ML LIQUID UDC GT SCH (09:25)
[2023-01-29 19:40] VITALS: TEMP 97.9
[2023-01-29] MEDS: FOLIC ACID 1 MG TABLET GT SCH (20:57)
[2023-01-29] MEDS: THIAMINE HCL 100 MG TABLET GT SCH (20:59)
[2023-01-29] MEDS: CHOLECALCIFEROL 1,000 UNIT TABLET GT SCH (20:59)
[2023-01-30] MEDS: ALBUTEROL SULFATE 2.5 MG/3 ML NEBU NEB SCH ×6 (03:02→23:04)
[2023-01-30] MEDS: IPRATROPIUM BROMIDE 0.5 MG/2.5 ML NEBU NEB SCH ×6 (03:02→23:04)
[2023-01-30] MEDS: METOCLOPRAMIDE HCL 5 MG TABLET GT SCH ×3 (05:38→21:09)
[2023-01-30] MEDS: MAGNESIUM OXIDE 400 MG TABLET GT SCH (05:38)
[2023-01-30] MEDS: MIDODRINE HCL 10 MG TABLET GT SCH ×3 (05:38→21:08)
[2023-01-30] MEDS: BACLOFEN 20 MG TABLET GT SCH ×3 (05:38→21:06)
[2023-01-30] MEDS: OMEPRAZOLE 20 MG CAPSULE.DR GT SCH (05:38)
[2023-01-30 08:00] VITALS: TEMP 98.2
[2023-01-30] MEDS: FERROUS SULFATE 330 MG/7.5 ML UDC- FOR SA ONLY GT SCH ×2 (08:39→21:12)
[2023-01-30] MEDS: PHENYTOIN 100 MG/4 ML UDC GT SCH ×2 (08:39→21:12)
[2023-01-30] MEDS: ACIDOPHILUS/BULGARICUS CHEW TAB GT SCH ×2 (08:39→21:05)
[2023-01-30] MEDS: levETIRAcetam 500 MG/5 ML LIQUID UDC GT SCH ×2 (08:40→21:10)
[2023-01-30] MEDS: FUROSEMIDE 10 MG/ML GT SCH (08:40)
[2023-01-30] MEDS: REMEDY ESSENTIAL ZINC PASTE 113 GM TP SCH ×2 (08:41→21:09)
[2023-01-30] MEDS: POTASSIUM CHLORIDE 40 MEQ/30 ML LIQUID UDC GT SCH (08:41)
[2023-01-30] MEDS: HYDROGEN PEROXIDE 3% 118 ML BOTTLE TP SCH ×2 (09:00→19:22)
[2023-01-30 20:00] VITALS: TEMP 97.5
[2023-01-30] MEDS: CHOLECALCIFEROL 1,000 UNIT TABLET GT SCH (21:05)
[2023-01-30] MEDS: THIAMINE HCL 100 MG TABLET GT SCH (21:05)
[2023-01-30] MEDS: FOLIC ACID 1 MG TABLET GT SCH (21:09)
[2023-01-30] MEDS: MIRALAX 17 GM POWD.PACK GT SCH (21:12)
[2023-01-31] MEDS: IPRATROPIUM BROMIDE 0.5 MG/2.5 ML NEBU NEB SCH ×6 (03:49→23:25)
[2023-01-31] MEDS: ALBUTEROL SULFATE 2.5 MG/3 ML NEBU NEB SCH ×6 (03:49→23:25)
[2023-01-31] MEDS: BACLOFEN 20 MG TABLET GT SCH ×3 (06:10→21:02)
[2023-01-31] MEDS: MAGNESIUM OXIDE 400 MG TABLET GT SCH (06:10)
[2023-01-31] MEDS: METOCLOPRAMIDE HCL 5 MG TABLET GT SCH ×3 (06:11→21:02)
[2023-01-31] MEDS: OMEPRAZOLE 20 MG CAPSULE.DR GT SCH (06:11)
[2023-01-31] MEDS: MIDODRINE HCL 10 MG TABLET GT SCH ×3 (06:11→21:02)
[2023-01-31] MEDS: VITAL AF 1.2 1,000 ML LIQUID GT PRN (06:16)
[2023-01-31 08:25] VITALS: TEMP 97.4
[2023-01-31] MEDS: PHENYTOIN 100 MG/4 ML UDC GT SCH ×2 (09:04→20:51)
[2023-01-31] MEDS: FUROSEMIDE 10 MG/ML GT SCH (09:05)
[2023-01-31] MEDS: ACIDOPHILUS/BULGARICUS CHEW TAB GT SCH ×2 (09:05→20:49)
[2023-01-31] MEDS: FERROUS SULFATE 330 MG/7.5 ML UDC- FOR SA ONLY GT SCH ×2 (09:05→20:49)
[2023-01-31] MEDS: levETIRAcetam 500 MG/5 ML LIQUID UDC GT SCH ×2 (09:06→20:52)
[2023-01-31] MEDS: POTASSIUM CHLORIDE 40 MEQ/30 ML LIQUID UDC GT SCH (09:07)
[2023-01-31] MEDS: REMEDY ESSENTIAL ZINC PASTE 113 GM TP SCH ×2 (09:07→20:50)
[2023-01-31] MEDS: HYDROGEN PEROXIDE 3% 118 ML BOTTLE TP SCH ×2 (09:40→19:11)
[2023-01-31] MEDS: THIAMINE HCL 100 MG TABLET GT SCH (20:50)
[2023-01-31] MEDS: CHOLECALCIFEROL 1,000 UNIT TABLET GT SCH (20:50)
[2023-01-31] MEDS: FOLIC ACID 1 MG TABLET GT SCH (20:52)
[2023-01-31 21:30] VITALS: TEMP 97.1
[2023-02-01] MEDS: IPRATROPIUM BROMIDE 0.5 MG/2.5 ML NEBU NEB SCH ×6 (03:11→23:07)
[2023-02-01] MEDS: ALBUTEROL SULFATE 2.5 MG/3 ML NEBU NEB SCH ×6 (03:11→23:07)
[2023-02-01] MEDS: MAGNESIUM OXIDE 400 MG TABLET GT SCH (05:49)
[2023-02-01] MEDS: MIDODRINE HCL 10 MG TABLET GT SCH ×3 (05:49→22:49)
[2023-02-01] MEDS: OMEPRAZOLE 20 MG CAPSULE.DR GT SCH (05:49)
[2023-02-01] MEDS: METOCLOPRAMIDE HCL 5 MG TABLET GT SCH ×3 (05:49→22:48)
[2023-02-01] MEDS: BACLOFEN 20 MG TABLET GT SCH ×3 (05:49→22:48)
[2023-02-01] MEDS: HYDROGEN PEROXIDE 3% 118 ML BOTTLE TP SCH ×2 (07:17→20:21)
[2023-02-01 07:48] VITALS: TEMP 96
[2023-02-01] MEDS: levETIRAcetam 500 MG/5 ML LIQUID UDC GT SCH ×2 (08:12→20:32)
[2023-02-01] MEDS: FERROUS SULFATE 330 MG/7.5 ML UDC- FOR SA ONLY GT SCH ×2 (08:12→20:32)
[2023-02-01] MEDS: FUROSEMIDE 10 MG/ML GT SCH (08:12)
[2023-02-01] MEDS: POTASSIUM CHLORIDE 40 MEQ/30 ML LIQUID UDC GT SCH (08:12)
[2023-02-01] MEDS: PHENYTOIN 100 MG/4 ML UDC GT SCH ×2 (08:12→20:32)
[2023-02-01] MEDS: ACIDOPHILUS/BULGARICUS CHEW TAB GT SCH ×2 (08:12→20:32)
[2023-02-01] MEDS: REMEDY ESSENTIAL ZINC PASTE 113 GM TP SCH ×2 (08:12→20:34)
[2023-02-01 20:00] VITALS: TEMP 97.4
[2023-02-01] MEDS: FOLIC ACID 1 MG TABLET GT SCH (20:32)
[2023-02-01] MEDS: THIAMINE HCL 100 MG TABLET GT SCH (20:34)
[2023-02-01] MEDS: CHOLECALCIFEROL 1,000 UNIT TABLET GT SCH (20:34)
[2023-02-01] MEDS: VITAL AF 1.2 1,000 ML LIQUID GT PRN (21:00)
[2023-02-02] MEDS: ALBUTEROL SULFATE 2.5 MG/3 ML NEBU NEB SCH ×6 (04:15→23:03)
[2023-02-02] MEDS: IPRATROPIUM BROMIDE 0.5 MG/2.5 ML NEBU NEB SCH ×6 (04:15→23:03)
[2023-02-02] MEDS: MIDODRINE HCL 10 MG TABLET GT SCH ×3 (05:49→21:19)
[2023-02-02] MEDS: BACLOFEN 20 MG TABLET GT SCH ×3 (05:49→21:18)
[2023-02-02] MEDS: OMEPRAZOLE 20 MG CAPSULE.DR GT SCH (05:49)
[2023-02-02] MEDS: METOCLOPRAMIDE HCL 5 MG TABLET GT SCH ×3 (05:49→21:19)
[2023-02-02] MEDS: MAGNESIUM OXIDE 400 MG TABLET GT SCH (05:49)
[2023-02-02 07:32] VITALS: TEMP 97.3
[2023-02-02] MEDS: HYDROGEN PEROXIDE 3% 118 ML BOTTLE TP SCH ×2 (07:43→19:13)
[2023-02-02] MEDS: levETIRAcetam 500 MG/5 ML LIQUID UDC GT SCH ×2 (08:38→21:22)
[2023-02-02] MEDS: FUROSEMIDE 10 MG/ML GT SCH (08:38)
[2023-02-02] MEDS: FERROUS SULFATE 330 MG/7.5 ML UDC- FOR SA ONLY GT SCH ×2 (08:38→21:22)
[2023-02-02] MEDS: ACIDOPHILUS/BULGARICUS CHEW TAB GT SCH ×2 (08:38→21:18)
[2023-02-02] MEDS: POTASSIUM CHLORIDE 40 MEQ/30 ML LIQUID UDC GT SCH (08:38)
[2023-02-02] MEDS: REMEDY ESSENTIAL ZINC PASTE 113 GM TP SCH ×2 (08:38→21:18)
[2023-02-02] MEDS: PHENYTOIN 100 MG/4 ML UDC GT SCH ×2 (08:38→21:18)
[2023-02-02 20:00] VITALS: TEMP 97.8
[2023-02-02] MEDS: FOLIC ACID 1 MG TABLET GT SCH (21:18)
[2023-02-02] MEDS: MIRALAX 17 GM POWD.PACK GT SCH (21:18)
[2023-02-02] MEDS: CHOLECALCIFEROL 1,000 UNIT TABLET GT SCH (21:22)
[2023-02-02] MEDS: THIAMINE HCL 100 MG TABLET GT SCH (21:22)
[2023-02-03] MEDS: IPRATROPIUM BROMIDE 0.5 MG/2.5 ML NEBU NEB SCH ×6 (04:11→23:58)
[2023-02-03] MEDS: ALBUTEROL SULFATE 2.5 MG/3 ML NEBU NEB SCH ×6 (04:11→23:58)
[2023-02-03] MEDS: OMEPRAZOLE 20 MG CAPSULE.DR GT SCH (05:48)
[2023-02-03] MEDS: METOCLOPRAMIDE HCL 5 MG TABLET GT SCH ×3 (05:48→21:27)
[2023-02-03] MEDS: MAGNESIUM OXIDE 400 MG TABLET GT SCH (05:49)
[2023-02-03] MEDS: BACLOFEN 20 MG TABLET GT SCH ×3 (05:49→21:27)
[2023-02-03] MEDS: MIDODRINE HCL 10 MG TABLET GT SCH ×3 (05:49→21:27)
[2023-02-03] MEDS: HYDROGEN PEROXIDE 3% 118 ML BOTTLE TP SCH ×2 (07:51→19:11)
[2023-02-03 08:00] VITALS: TEMP 97.1
[2023-02-03] MEDS: POTASSIUM CHLORIDE 40 MEQ/30 ML LIQUID UDC GT SCH (08:48)
[2023-02-03] MEDS: PHENYTOIN 100 MG/4 ML UDC GT SCH ×2 (08:48→21:25)
[2023-02-03] MEDS: FUROSEMIDE 10 MG/ML GT SCH (08:48)
[2023-02-03] MEDS: levETIRAcetam 500 MG/5 ML LIQUID UDC GT SCH ×2 (08:48→21:26)
[2023-02-03] MEDS: FERROUS SULFATE 330 MG/7.5 ML UDC- FOR SA ONLY GT SCH ×2 (08:48→21:25)
[2023-02-03] MEDS: ACIDOPHILUS/BULGARICUS CHEW TAB GT SCH ×2 (08:48→21:25)
[2023-02-03] MEDS: REMEDY ESSENTIAL ZINC PASTE 113 GM TP SCH ×2 (08:48→21:27)
[2023-02-03 19:45] VITALS: TEMP 97.7
[2023-02-03] MEDS: THIAMINE HCL 100 MG TABLET GT SCH (21:26)
[2023-02-03] MEDS: FOLIC ACID 1 MG TABLET GT SCH (21:26)
[2023-02-03] MEDS: CHOLECALCIFEROL 1,000 UNIT TABLET GT SCH (21:26)
[2023-02-04] MEDS: IPRATROPIUM BROMIDE 0.5 MG/2.5 ML NEBU NEB SCH ×6 (03:31→23:05)
[2023-02-04] MEDS: ALBUTEROL SULFATE 2.5 MG/3 ML NEBU NEB SCH ×6 (03:31→23:05)
[2023-02-04] MEDS: MAGNESIUM OXIDE 400 MG TABLET GT SCH (06:28)
[2023-02-04] MEDS: BACLOFEN 20 MG TABLET GT SCH ×3 (06:28→21:29)
[2023-02-04] MEDS: MIDODRINE HCL 10 MG TABLET GT SCH ×3 (06:29→21:33)
[2023-02-04] MEDS: OMEPRAZOLE 20 MG CAPSULE.DR GT SCH (06:29)
[2023-02-04] MEDS: METOCLOPRAMIDE HCL 5 MG TABLET GT SCH ×3 (06:29→21:34)
[2023-02-04] MEDS: HYDROGEN PEROXIDE 3% 118 ML BOTTLE TP SCH ×2 (07:28→21:02)
[2023-02-04 08:00] VITALS: TEMP 98.2
[2023-02-04] MEDS: FERROUS SULFATE 330 MG/7.5 ML UDC- FOR SA ONLY GT SCH ×2 (09:00→21:28)
[2023-02-04] MEDS: levETIRAcetam 500 MG/5 ML LIQUID UDC GT SCH ×2 (09:00→21:28)
[2023-02-04] MEDS: POTASSIUM CHLORIDE 40 MEQ/30 ML LIQUID UDC GT SCH (09:00)
[2023-02-04] MEDS: FUROSEMIDE 10 MG/ML GT SCH (09:00)
[2023-02-04] MEDS: ACIDOPHILUS/BULGARICUS CHEW TAB GT SCH ×2 (09:00→21:28)
[2023-02-04] MEDS: PHENYTOIN 100 MG/4 ML UDC GT SCH ×2 (09:00→21:28)
[2023-02-04] MEDS: REMEDY ESSENTIAL ZINC PASTE 113 GM TP SCH ×2 (09:00→21:28)
[2023-02-04 20:00] VITALS: TEMP 98.5; TEMP 99.1
[2023-02-04] MEDS: MIRALAX 17 GM POWD.PACK GT SCH (21:28)
[2023-02-04] MEDS: THIAMINE HCL 100 MG TABLET GT SCH (21:28)
[2023-02-04] MEDS: FOLIC ACID 1 MG TABLET GT SCH (21:28)
[2023-02-04] MEDS: CHOLECALCIFEROL 1,000 UNIT TABLET GT SCH (21:28)
[2023-02-05] MEDS: ALBUTEROL SULFATE 2.5 MG/3 ML NEBU NEB SCH ×6 (03:05→23:48)
[2023-02-05] MEDS: IPRATROPIUM BROMIDE 0.5 MG/2.5 ML NEBU NEB SCH ×6 (03:05→23:48)
[2023-02-05] MEDS: BACLOFEN 20 MG TABLET GT SCH ×3 (06:00→22:00)
[2023-02-05] MEDS: MAGNESIUM OXIDE 400 MG TABLET GT SCH (06:00)
[2023-02-05] MEDS: MIDODRINE HCL 10 MG TABLET GT SCH ×3 (06:02→22:00)
[2023-02-05] MEDS: OMEPRAZOLE 20 MG CAPSULE.DR GT SCH (06:02)
[2023-02-05] MEDS: METOCLOPRAMIDE HCL 5 MG TABLET GT SCH ×3 (06:02→22:00)
[2023-02-05 08:00] VITALS: TEMP 98.3
[2023-02-05] MEDS: HYDROGEN PEROXIDE 3% 118 ML BOTTLE TP SCH ×2 (08:00→21:00)
[2023-02-05] MEDS: PHENYTOIN 100 MG/4 ML UDC GT SCH ×2 (08:54→21:00)
[2023-02-05] MEDS: FERROUS SULFATE 330 MG/7.5 ML UDC- FOR SA ONLY GT SCH ×2 (09:00→21:00)
[2023-02-05] MEDS: ACIDOPHILUS/BULGARICUS CHEW TAB GT SCH ×2 (09:10→21:00)
[2023-02-05] MEDS: levETIRAcetam 500 MG/5 ML LIQUID UDC GT SCH ×2 (09:10→21:00)
[2023-02-05] MEDS: POTASSIUM CHLORIDE 40 MEQ/30 ML LIQUID UDC GT SCH (09:12)
[2023-02-05] MEDS: REMEDY ESSENTIAL ZINC PASTE 113 GM TP SCH ×2 (09:15→21:00)
[2023-02-05] MEDS: FUROSEMIDE 10 MG/ML GT SCH (17:25)
[2023-02-05 20:00] VITALS: TEMP 97.4
[2023-02-05] MEDS: CHOLECALCIFEROL 1,000 UNIT TABLET GT SCH (21:00)
[2023-02-05] MEDS: FOLIC ACID 1 MG TABLET GT SCH (21:00)
[2023-02-05] MEDS: THIAMINE HCL 100 MG TABLET GT SCH (21:00)
[2023-02-06] MEDS: ALBUTEROL SULFATE 2.5 MG/3 ML NEBU NEB SCH ×6 (03:18→23:30)
[2023-02-06] MEDS: IPRATROPIUM BROMIDE 0.5 MG/2.5 ML NEBU NEB SCH ×6 (03:18→23:30)
[2023-02-06] MEDS: VITAL AF 1.2 1,000 ML LIQUID GT PRN (03:42)
[2023-02-06] MEDS: BACLOFEN 20 MG TABLET GT SCH ×3 (06:30→21:34)
[2023-02-06] MEDS: MAGNESIUM OXIDE 400 MG TABLET GT SCH (06:30)
[2023-02-06] MEDS: METOCLOPRAMIDE HCL 5 MG TABLET GT SCH ×3 (06:31→21:36)
[2023-02-06] MEDS: OMEPRAZOLE 20 MG CAPSULE.DR GT SCH (06:31)
[2023-02-06] MEDS: MIDODRINE HCL 10 MG TABLET GT SCH ×3 (06:31→21:36)
[2023-02-06] MEDS: HYDROGEN PEROXIDE 3% 118 ML BOTTLE TP SCH ×2 (08:15→20:57)
[2023-02-06 08:19] VITALS: BP 101/50; TEMP 98.6; O2SAT 100
[2023-02-06] MEDS: FUROSEMIDE 10 MG/ML GT SCH (09:00)
[2023-02-06] MEDS: levETIRAcetam 500 MG/5 ML LIQUID UDC GT SCH ×2 (09:00→21:32)
[2023-02-06] MEDS: ACIDOPHILUS/BULGARICUS CHEW TAB GT SCH ×2 (09:00→21:30)
[2023-02-06] MEDS: REMEDY ESSENTIAL ZINC PASTE 113 GM TP SCH ×2 (09:00→21:34)
[2023-02-06] MEDS: POTASSIUM CHLORIDE 40 MEQ/30 ML LIQUID UDC GT SCH (09:00)
[2023-02-06] MEDS: PHENYTOIN 100 MG/4 ML UDC GT SCH ×2 (09:00→21:29)
[2023-02-06] MEDS: FERROUS SULFATE 330 MG/7.5 ML UDC- FOR SA ONLY GT SCH ×2 (09:00→21:30)
[2023-02-06 20:00] VITALS: TEMP 97.1
[2023-02-06] MEDS: FOLIC ACID 1 MG TABLET GT SCH (21:31)
[2023-02-06] MEDS: MIRALAX 17 GM POWD.PACK GT SCH (21:32)
[2023-02-06] MEDS: CHOLECALCIFEROL 1,000 UNIT TABLET GT SCH (21:33)
[2023-02-06] MEDS: THIAMINE HCL 100 MG TABLET GT SCH (21:33)
[2023-02-07] MEDS: IPRATROPIUM BROMIDE 0.5 MG/2.5 ML NEBU NEB SCH ×6 (03:30→23:05)
[2023-02-07] MEDS: ALBUTEROL SULFATE 2.5 MG/3 ML NEBU NEB SCH ×6 (03:30→23:05)
[2023-02-07] MEDS: MAGNESIUM OXIDE 400 MG TABLET GT SCH (06:38)
[2023-02-07] MEDS: BACLOFEN 20 MG TABLET GT SCH ×3 (06:38→21:55)
[2023-02-07] MEDS: MIDODRINE HCL 10 MG TABLET GT SCH ×3 (06:44→21:57)
[2023-02-07] MEDS: OMEPRAZOLE 20 MG CAPSULE.DR GT SCH (06:44)
[2023-02-07] MEDS: METOCLOPRAMIDE HCL 5 MG TABLET GT SCH ×3 (06:44→21:57)
[2023-02-07 08:00] VITALS: TEMP 98.2
[2023-02-07] MEDS: HYDROGEN PEROXIDE 3% 118 ML BOTTLE TP SCH ×2 (08:13→20:37)
[2023-02-07] MEDS: ACIDOPHILUS/BULGARICUS CHEW TAB GT SCH ×2 (09:29→21:52)
[2023-02-07] MEDS: FUROSEMIDE 10 MG/ML GT SCH (09:29)
[2023-02-07] MEDS: REMEDY ESSENTIAL ZINC PASTE 113 GM TP SCH ×2 (09:29→21:55)
[2023-02-07] MEDS: PHENYTOIN 100 MG/4 ML UDC GT SCH ×2 (09:29→21:51)
[2023-02-07] MEDS: levETIRAcetam 500 MG/5 ML LIQUID UDC GT SCH ×2 (09:29→21:54)
[2023-02-07] MEDS: FERROUS SULFATE 330 MG/7.5 ML UDC- FOR SA ONLY GT SCH ×2 (09:29→21:51)
[2023-02-07] MEDS: POTASSIUM CHLORIDE 40 MEQ/30 ML LIQUID UDC GT SCH (09:29)
[2023-02-07 20:00] VITALS: TEMP 97.1
[2023-02-07] MEDS: FOLIC ACID 1 MG TABLET GT SCH (21:53)
[2023-02-07] MEDS: CHOLECALCIFEROL 1,000 UNIT TABLET GT SCH (21:54)
[2023-02-07] MEDS: THIAMINE HCL 100 MG TABLET GT SCH (21:54)
[2023-02-08] MEDS: ALBUTEROL SULFATE 2.5 MG/3 ML NEBU NEB SCH ×6 (03:15→23:12)
[2023-02-08] MEDS: IPRATROPIUM BROMIDE 0.5 MG/2.5 ML NEBU NEB SCH ×6 (03:15→23:12)
[2023-02-08] MEDS: BACLOFEN 20 MG TABLET GT SCH ×3 (06:04→21:31)
[2023-02-08] MEDS: MIDODRINE HCL 10 MG TABLET GT SCH ×3 (06:05→21:28)
[2023-02-08] MEDS: MAGNESIUM OXIDE 400 MG TABLET GT SCH (06:05)
[2023-02-08] MEDS: METOCLOPRAMIDE HCL 5 MG TABLET GT SCH ×3 (06:06→21:28)
[2023-02-08] MEDS: OMEPRAZOLE 20 MG CAPSULE.DR GT SCH (06:06)
[2023-02-08 08:02] VITALS: TEMP 98.5
[2023-02-08] MEDS: HYDROGEN PEROXIDE 3% 118 ML BOTTLE TP SCH ×2 (08:32→20:03)
[2023-02-08] MEDS: POTASSIUM CHLORIDE 40 MEQ/30 ML LIQUID UDC GT SCH (09:39)
[2023-02-08] MEDS: REMEDY ESSENTIAL ZINC PASTE 113 GM TP SCH ×2 (09:39→20:31)
[2023-02-08] MEDS: FERROUS SULFATE 330 MG/7.5 ML UDC- FOR SA ONLY GT SCH ×2 (09:39→20:31)
[2023-02-08] MEDS: levETIRAcetam 500 MG/5 ML LIQUID UDC GT SCH ×2 (09:39→20:31)
[2023-02-08] MEDS: FUROSEMIDE 10 MG/ML GT SCH (09:39)
[2023-02-08] MEDS: PHENYTOIN 100 MG/4 ML UDC GT SCH ×2 (09:39→20:38)
[2023-02-08] MEDS: ACIDOPHILUS/BULGARICUS CHEW TAB GT SCH ×2 (09:39→20:31)
[2023-02-08] MEDS: VITAL AF 1.2 1,000 ML LIQUID GT PRN (15:27)
[2023-02-08 20:00] VITALS: TEMP 96.4
[2023-02-08] MEDS: THIAMINE HCL 100 MG TABLET GT SCH (20:31)
[2023-02-08] MEDS: CHOLECALCIFEROL 1,000 UNIT TABLET GT SCH (20:32)
[2023-02-08] MEDS: FOLIC ACID 1 MG TABLET GT SCH (20:32)
[2023-02-09] MEDS: IPRATROPIUM BROMIDE 0.5 MG/2.5 ML NEBU NEB SCH ×6 (03:37→23:20)
[2023-02-09] MEDS: ALBUTEROL SULFATE 2.5 MG/3 ML NEBU NEB SCH ×6 (03:37→23:21)
[2023-02-09] MEDS: OMEPRAZOLE 20 MG CAPSULE.DR GT SCH (05:36)
[2023-02-09] MEDS: MIDODRINE HCL 10 MG TABLET GT SCH ×3 (05:36→21:59)
[2023-02-09] MEDS: MAGNESIUM OXIDE 400 MG TABLET GT SCH (05:36)
[2023-02-09] MEDS: BACLOFEN 20 MG TABLET GT SCH ×3 (05:36→21:58)
[2023-02-09] MEDS: METOCLOPRAMIDE HCL 5 MG TABLET GT SCH ×3 (05:37→22:08)
[2023-02-09] MEDS: HYDROGEN PEROXIDE 3% 118 ML BOTTLE TP SCH ×2 (07:21→19:06)
[2023-02-09 08:00] VITALS: TEMP 96
[2023-02-09] MEDS: REMEDY ESSENTIAL ZINC PASTE 113 GM TP SCH ×2 (09:00→21:58)
[2023-02-09] MEDS: levETIRAcetam 500 MG/5 ML LIQUID UDC GT SCH ×2 (09:00→21:56)
[2023-02-09] MEDS: FERROUS SULFATE 330 MG/7.5 ML UDC- FOR SA ONLY GT SCH ×2 (09:00→21:55)
[2023-02-09] MEDS: PHENYTOIN 100 MG/4 ML UDC GT SCH ×2 (09:00→21:54)
[2023-02-09] MEDS: FUROSEMIDE 10 MG/ML GT SCH (09:00)
[2023-02-09] MEDS: POTASSIUM CHLORIDE 40 MEQ/30 ML LIQUID UDC GT SCH (09:00)
[2023-02-09] MEDS: ACIDOPHILUS/BULGARICUS CHEW TAB GT SCH ×2 (09:00→21:55)
[2023-02-09 20:00] VITALS: TEMP 97.8
[2023-02-09] MEDS: FOLIC ACID 1 MG TABLET GT SCH (21:56)
[2023-02-09] MEDS: THIAMINE HCL 100 MG TABLET GT SCH (21:57)
[2023-02-09] MEDS: MIRALAX 17 GM POWD.PACK GT SCH (21:57)
[2023-02-09] MEDS: CHOLECALCIFEROL 1,000 UNIT TABLET GT SCH (21:58)
[2023-02-10] MEDS: IPRATROPIUM BROMIDE 0.5 MG/2.5 ML NEBU NEB SCH ×6 (03:55→23:54)
[2023-02-10] MEDS: ALBUTEROL SULFATE 2.5 MG/3 ML NEBU NEB SCH ×6 (03:55→23:54)
[2023-02-10] MEDS: VITAL AF 1.2 1,000 ML LIQUID GT PRN (04:15)
[2023-02-10] MEDS: BACLOFEN 20 MG TABLET GT SCH ×3 (06:15→21:12)
[2023-02-10] MEDS: METOCLOPRAMIDE HCL 5 MG TABLET GT SCH ×3 (06:15→21:15)
[2023-02-10] MEDS: OMEPRAZOLE 20 MG CAPSULE.DR GT SCH (06:15)
[2023-02-10] MEDS: MIDODRINE HCL 10 MG TABLET GT SCH ×3 (06:15→21:14)
[2023-02-10] MEDS: MAGNESIUM OXIDE 400 MG TABLET GT SCH (06:15)
[2023-02-10] MEDS: HYDROGEN PEROXIDE 3% 118 ML BOTTLE TP SCH ×2 (07:25→19:10)
[2023-02-10 08:00] VITALS: TEMP 97.5
[2023-02-10] MEDS: PHENYTOIN 100 MG/4 ML UDC GT SCH ×2 (08:56→21:08)
[2023-02-10] MEDS: ACIDOPHILUS/BULGARICUS CHEW TAB GT SCH ×2 (08:56→21:10)
[2023-02-10] MEDS: FERROUS SULFATE 330 MG/7.5 ML UDC- FOR SA ONLY GT SCH ×2 (08:56→21:09)
[2023-02-10] MEDS: FUROSEMIDE 10 MG/ML GT SCH (08:56)
[2023-02-10] MEDS: levETIRAcetam 500 MG/5 ML LIQUID UDC GT SCH ×2 (08:58→21:11)
[2023-02-10] MEDS: POTASSIUM CHLORIDE 40 MEQ/30 ML LIQUID UDC GT SCH (08:59)
[2023-02-10] MEDS: REMEDY ESSENTIAL ZINC PASTE 113 GM TP SCH ×2 (09:00→21:12)
[2023-02-10 20:37] VITALS: TEMP 97.6
[2023-02-10] MEDS: FOLIC ACID 1 MG TABLET GT SCH (21:10)
[2023-02-10] MEDS: THIAMINE HCL 100 MG TABLET GT SCH (21:12)
[2023-02-10] MEDS: CHOLECALCIFEROL 1,000 UNIT TABLET GT SCH (21:12)
[2023-02-11] MEDS: ALBUTEROL SULFATE 2.5 MG/3 ML NEBU NEB SCH ×6 (03:35→23:40)
[2023-02-11] MEDS: IPRATROPIUM BROMIDE 0.5 MG/2.5 ML NEBU NEB SCH ×6 (03:35→23:40)
[2023-02-11] MEDS: BACLOFEN 20 MG TABLET GT SCH ×3 (06:21→21:13)
[2023-02-11] MEDS: MAGNESIUM OXIDE 400 MG TABLET GT SCH (06:21)
[2023-02-11] MEDS: MIDODRINE HCL 10 MG TABLET GT SCH ×3 (06:22→21:14)
[2023-02-11] MEDS: OMEPRAZOLE 20 MG CAPSULE.DR GT SCH (06:22)
[2023-02-11] MEDS: METOCLOPRAMIDE HCL 5 MG TABLET GT SCH ×3 (06:22→21:14)
[2023-02-11] MEDS: HYDROGEN PEROXIDE 3% 118 ML BOTTLE TP SCH ×2 (07:57→19:11)
[2023-02-11 08:00] VITALS: TEMP 97.5
[2023-02-11] MEDS: FUROSEMIDE 10 MG/ML GT SCH (09:30)
[2023-02-11] MEDS: PHENYTOIN 100 MG/4 ML UDC GT SCH ×2 (09:30→21:10)
[2023-02-11] MEDS: FERROUS SULFATE 330 MG/7.5 ML UDC- FOR SA ONLY GT SCH ×2 (09:30→21:11)
[2023-02-11] MEDS: ACIDOPHILUS/BULGARICUS CHEW TAB GT SCH ×2 (09:30→21:11)
[2023-02-11] MEDS: REMEDY ESSENTIAL ZINC PASTE 113 GM TP SCH ×2 (09:30→21:13)
[2023-02-11] MEDS: POTASSIUM CHLORIDE 40 MEQ/30 ML LIQUID UDC GT SCH (09:30)
[2023-02-11] MEDS: levETIRAcetam 500 MG/5 ML LIQUID UDC GT SCH ×2 (09:30→21:11)
[2023-02-11 20:10] VITALS: TEMP 97.1
[2023-02-11] MEDS: FOLIC ACID 1 MG TABLET GT SCH (21:11)
[2023-02-11] MEDS: THIAMINE HCL 100 MG TABLET GT SCH (21:12)
[2023-02-11] MEDS: MIRALAX 17 GM POWD.PACK GT SCH (21:12)
[2023-02-11] MEDS: CHOLECALCIFEROL 1,000 UNIT TABLET GT SCH (21:13)
[2023-02-12] MEDS: ALBUTEROL SULFATE 2.5 MG/3 ML NEBU NEB SCH ×6 (03:12→23:15)
[2023-02-12] MEDS: IPRATROPIUM BROMIDE 0.5 MG/2.5 ML NEBU NEB SCH ×6 (03:12→23:15)
[2023-02-12] MEDS: ACETAMINOPHEN 650 MG/20 ML UDC- SA PATIENTS-PAIN ONLY GT PRN (05:00)
[2023-02-12] MEDS: BACLOFEN 20 MG TABLET GT SCH ×3 (05:55→22:32)
[2023-02-12] MEDS: MAGNESIUM OXIDE 400 MG TABLET GT SCH (05:55)
[2023-02-12] MEDS: MIDODRINE HCL 10 MG TABLET GT SCH ×3 (05:55→22:35)
[2023-02-12] MEDS: METOCLOPRAMIDE HCL 5 MG TABLET GT SCH ×3 (05:56→22:32)
[2023-02-12] MEDS: OMEPRAZOLE 20 MG CAPSULE.DR GT SCH (05:56)
[2023-02-12] MEDS: HYDROGEN PEROXIDE 3% 118 ML BOTTLE TP SCH ×2 (07:48→19:20)
[2023-02-12 08:00] VITALS: TEMP 97.2
[2023-02-12] MEDS: REMEDY ESSENTIAL ZINC PASTE 113 GM TP SCH ×2 (09:00→20:43)
[2023-02-12] MEDS: PHENYTOIN 100 MG/4 ML UDC GT SCH ×2 (09:00→20:40)
[2023-02-12] MEDS: FERROUS SULFATE 330 MG/7.5 ML UDC- FOR SA ONLY GT SCH ×2 (09:00→20:41)
[2023-02-12] MEDS: levETIRAcetam 500 MG/5 ML LIQUID UDC GT SCH ×2 (09:00→20:42)
[2023-02-12] MEDS: FUROSEMIDE 10 MG/ML GT SCH (09:00)
[2023-02-12] MEDS: POTASSIUM CHLORIDE 40 MEQ/30 ML LIQUID UDC GT SCH (09:00)
[2023-02-12] MEDS: ACIDOPHILUS/BULGARICUS CHEW TAB GT SCH ×2 (09:00→20:41)
[2023-02-12 20:15] VITALS: TEMP 94
[2023-02-12 20:23] VITALS: TEMP 94
[2023-02-12] MEDS: FOLIC ACID 1 MG TABLET GT SCH (20:42)
[2023-02-12] MEDS: CHOLECALCIFEROL 1,000 UNIT TABLET GT SCH (20:43)
[2023-02-12] MEDS: THIAMINE HCL 100 MG TABLET GT SCH (20:43)
[2023-02-13] MEDS: IPRATROPIUM BROMIDE 0.5 MG/2.5 ML NEBU NEB SCH ×6 (02:57→23:29)
[2023-02-13] MEDS: ALBUTEROL SULFATE 2.5 MG/3 ML NEBU NEB SCH ×6 (02:57→23:29)
[2023-02-13 05:00] VITALS: TEMP 97.5
[2023-02-13] MEDS: MAGNESIUM OXIDE 400 MG TABLET GT SCH (06:04)
[2023-02-13] MEDS: BACLOFEN 20 MG TABLET GT SCH ×3 (06:04→21:08)
[2023-02-13] MEDS: MIDODRINE HCL 10 MG TABLET GT SCH ×3 (06:05→21:09)
[2023-02-13] MEDS: OMEPRAZOLE 20 MG CAPSULE.DR GT SCH (06:05)
[2023-02-13] MEDS: METOCLOPRAMIDE HCL 5 MG TABLET GT SCH ×3 (06:05→21:09)
[2023-02-13] MEDS: VITAL AF 1.2 1,000 ML LIQUID GT PRN (06:25)
[2023-02-13 07:42] VITALS: TEMP 97.6
[2023-02-13] MEDS: HYDROGEN PEROXIDE 3% 118 ML BOTTLE TP SCH ×2 (07:46→19:10)
[2023-02-13] MEDS: REMEDY ESSENTIAL ZINC PASTE 113 GM TP SCH ×2 (09:00→21:08)
[2023-02-13] MEDS: ACIDOPHILUS/BULGARICUS CHEW TAB GT SCH ×2 (09:00→21:08)
[2023-02-13] MEDS: levETIRAcetam 500 MG/5 ML LIQUID UDC GT SCH ×2 (09:00→21:08)
[2023-02-13] MEDS: POTASSIUM CHLORIDE 40 MEQ/30 ML LIQUID UDC GT SCH (09:00)
[2023-02-13] MEDS: PHENYTOIN 100 MG/4 ML UDC GT SCH ×2 (09:00→21:08)
[2023-02-13] MEDS: FUROSEMIDE 10 MG/ML GT SCH (09:00)
[2023-02-13] MEDS: FERROUS SULFATE 330 MG/7.5 ML UDC- FOR SA ONLY GT SCH ×2 (09:00→21:08)
[2023-02-13] MEDS: FOLIC ACID 1 MG TABLET GT SCH (21:08)
[2023-02-13] MEDS: MIRALAX 17 GM POWD.PACK GT SCH (21:08)
[2023-02-13] MEDS: CHOLECALCIFEROL 1,000 UNIT TABLET GT SCH (21:08)
[2023-02-13] MEDS: THIAMINE HCL 100 MG TABLET GT SCH (21:08)
[2023-02-14] MEDS: IPRATROPIUM BROMIDE 0.5 MG/2.5 ML NEBU NEB SCH ×6 (03:20→23:38)
[2023-02-14] MEDS: ALBUTEROL SULFATE 2.5 MG/3 ML NEBU NEB SCH ×6 (03:20→23:38)
[2023-02-14] MEDS: BACLOFEN 20 MG TABLET GT SCH ×3 (05:44→22:00)
[2023-02-14] MEDS: MAGNESIUM OXIDE 400 MG TABLET GT SCH (05:44)
[2023-02-14] MEDS: OMEPRAZOLE 20 MG CAPSULE.DR GT SCH (05:45)
[2023-02-14] MEDS: MIDODRINE HCL 10 MG TABLET GT SCH ×3 (05:45→22:52)
[2023-02-14] MEDS: METOCLOPRAMIDE HCL 5 MG TABLET GT SCH ×3 (05:45→22:52)
[2023-02-14 07:48] VITALS: TEMP 97.7
[2023-02-14] MEDS: PHENYTOIN 100 MG/4 ML UDC GT SCH ×2 (08:54→20:50)
[2023-02-14] MEDS: FERROUS SULFATE 330 MG/7.5 ML UDC- FOR SA ONLY GT SCH ×2 (08:57→20:50)
[2023-02-14] MEDS: ACIDOPHILUS/BULGARICUS CHEW TAB GT SCH ×2 (08:57→20:51)
[2023-02-14] MEDS: levETIRAcetam 500 MG/5 ML LIQUID UDC GT SCH ×2 (08:58→20:51)
[2023-02-14] MEDS: FUROSEMIDE 10 MG/ML GT SCH (08:58)
[2023-02-14] MEDS: POTASSIUM CHLORIDE 40 MEQ/30 ML LIQUID UDC GT SCH (08:59)
[2023-02-14] MEDS: REMEDY ESSENTIAL ZINC PASTE 113 GM TP SCH ×2 (08:59→20:52)
[2023-02-14] MEDS: HYDROGEN PEROXIDE 3% 118 ML BOTTLE TP SCH ×2 (09:07→19:00)
[2023-02-14] MEDS: VITAL AF 1.2 1,000 ML LIQUID GT PRN (13:30)
[2023-02-14 20:02] VITALS: TEMP 96.4
[2023-02-14] MEDS: FOLIC ACID 1 MG TABLET GT SCH (20:51)
[2023-02-14] MEDS: CHOLECALCIFEROL 1,000 UNIT TABLET GT SCH (20:52)
[2023-02-14] MEDS: THIAMINE HCL 100 MG TABLET GT SCH (20:52)
[2023-02-15] MEDS: ALBUTEROL SULFATE 2.5 MG/3 ML NEBU NEB SCH ×5 (03:32→19:11)
[2023-02-15] MEDS: IPRATROPIUM BROMIDE 0.5 MG/2.5 ML NEBU NEB SCH ×5 (03:32→19:11)
[2023-02-15] MEDS: BACLOFEN 20 MG TABLET GT SCH ×3 (05:20→21:10)
[2023-02-15] MEDS: OMEPRAZOLE 20 MG CAPSULE.DR GT SCH (05:20)
[2023-02-15] MEDS: METOCLOPRAMIDE HCL 5 MG TABLET GT SCH ×3 (05:20→21:10)
[2023-02-15] MEDS: MAGNESIUM OXIDE 400 MG TABLET GT SCH (05:20)
[2023-02-15] MEDS: MIDODRINE HCL 10 MG TABLET GT SCH ×3 (05:20→21:10)
[2023-02-15 08:08] VITALS: TEMP 97.6
[2023-02-15] MEDS: HYDROGEN PEROXIDE 3% 118 ML BOTTLE TP SCH ×2 (08:56→19:24)
[2023-02-15] MEDS: levETIRAcetam 500 MG/5 ML LIQUID UDC GT SCH ×2 (09:44→21:09)
[2023-02-15] MEDS: FUROSEMIDE 10 MG/ML GT SCH (09:44)
[2023-02-15] MEDS: REMEDY ESSENTIAL ZINC PASTE 113 GM TP SCH ×2 (09:44→21:09)
[2023-02-15] MEDS: POTASSIUM CHLORIDE 40 MEQ/30 ML LIQUID UDC GT SCH (09:44)
[2023-02-15] MEDS: ACIDOPHILUS/BULGARICUS CHEW TAB GT SCH ×2 (09:44→21:09)
[2023-02-15] MEDS: FERROUS SULFATE 330 MG/7.5 ML UDC- FOR SA ONLY GT SCH ×2 (09:44→21:09)
[2023-02-15] MEDS: PHENYTOIN 100 MG/4 ML UDC GT SCH ×2 (09:44→21:09)
[2023-02-15 20:13] VITALS: TEMP 96.2
[2023-02-15] MEDS: FOLIC ACID 1 MG TABLET GT SCH (21:09)
[2023-02-15] MEDS: THIAMINE HCL 100 MG TABLET GT SCH (21:09)
[2023-02-15] MEDS: CHOLECALCIFEROL 1,000 UNIT TABLET GT SCH (21:09)
[2023-02-16] MEDS: IPRATROPIUM BROMIDE 0.5 MG/2.5 ML NEBU NEB SCH ×7 (00:15→23:16)
[2023-02-16] MEDS: ALBUTEROL SULFATE 2.5 MG/3 ML NEBU NEB SCH ×7 (00:15→23:17)
[2023-02-16] MEDS: MIDODRINE HCL 10 MG TABLET GT SCH ×3 (05:56→22:00)
[2023-02-16] MEDS: METOCLOPRAMIDE HCL 5 MG TABLET GT SCH ×3 (05:56→22:43)
[2023-02-16] MEDS: BACLOFEN 20 MG TABLET GT SCH ×3 (05:56→22:42)
[2023-02-16] MEDS: MAGNESIUM OXIDE 400 MG TABLET GT SCH (05:56)
[2023-02-16] MEDS: OMEPRAZOLE 20 MG CAPSULE.DR GT SCH (05:56)
[2023-02-16 07:25] LABS: BASOPHILS % (AUTO) 0.6 % (0.0-2.0); EOSINOPHILS # (AUTO) 0.4 K/uL (0.0-0.7); EOSINOPHILS % (AUTO) 6.2 % (0.0-7.0); HEMATOCRIT 33.7 % (31.2-41.9); HEMOGLOBIN 11.4 g/dL (10.9-14.3); LYMPHOCYTES # (AUTO) 1.8 K/uL (0.8-4.8); LYMPHOCYTES % (AUTO) 28.1 % (20.5-51.5); MEAN CORPUSCULAR HEMOGLOBIN 31.2 uug (24.7-32.8); MEAN CORPUSCULAR HGB CONC 34 g/dL (32.3-35.6); MEAN CORPUSCULAR VOLUME 92.1 fL (75.5-95.3); MONOCYTES # (AUTO) 0.4 K/uL (0.1-1.30); MONOCYTES % (AUTO) 6.5 % (0.0-11.0); NEUTROPHILS # (AUTO) 3.8 K/uL (1.8-8.9); NEUTROPHILS % (AUTO) 58.6 % (38.5-71.5); PLATELET COUNT (AUTO) 228 K/uL (179-408); RED BLOOD CELL COUNT(AUTO) 3.65 MIL/uL (3.63-4.92); RED CELL DISTRIBUTION WIDTH 17.6 % (12.3-17.7); WHITE BLOOD COUNT (AUTO) 6.5 K/uL (3.8-11.8)
[2023-02-16 07:28] VITALS: TEMP 97.3
[2023-02-16 07:35] LABS: CALCIUM 8.5 mg/dL (8.5-10.1); CREATININE 0.6 mg/dL (0.6-1.3); MAGNESIUM 1.9 mg/dL (1.8-2.4); PHOSPHOROUS 3.9 mg/dL (2.5-4.9); POTASSIUM 3.6 mmol/L (3.5-5.1)
[2023-02-16 07:37] LABS: DIFFERENTIAL COMMENT 1
[2023-02-16] MEDS: HYDROGEN PEROXIDE 3% 118 ML BOTTLE TP SCH ×2 (08:07→21:34)
[2023-02-16] MEDS: ACIDOPHILUS/BULGARICUS CHEW TAB GT SCH ×2 (08:26→20:45)
[2023-02-16] MEDS: FUROSEMIDE 10 MG/ML GT SCH (08:26)
[2023-02-16] MEDS: PHENYTOIN 100 MG/4 ML UDC GT SCH ×2 (08:26→20:45)
[2023-02-16] MEDS: levETIRAcetam 500 MG/5 ML LIQUID UDC GT SCH ×2 (08:26→20:45)
[2023-02-16] MEDS: REMEDY ESSENTIAL ZINC PASTE 113 GM TP SCH ×2 (08:26→20:45)
[2023-02-16] MEDS: FERROUS SULFATE 330 MG/7.5 ML UDC- FOR SA ONLY GT SCH ×2 (08:26→20:45)
[2023-02-16] MEDS: POTASSIUM CHLORIDE 40 MEQ/30 ML LIQUID UDC GT SCH (08:26)
[2023-02-16 20:00] VITALS: TEMP 96.8
[2023-02-16] MEDS: CHOLECALCIFEROL 1,000 UNIT TABLET GT SCH (20:45)
[2023-02-16] MEDS: FOLIC ACID 1 MG TABLET GT SCH (20:45)
[2023-02-16] MEDS: THIAMINE HCL 100 MG TABLET GT SCH (20:45)
[2023-02-16] MEDS: MIRALAX 17 GM POWD.PACK GT SCH (20:45)
[2023-02-17] MEDS: ALBUTEROL SULFATE 2.5 MG/3 ML NEBU NEB SCH ×6 (03:30→23:26)
[2023-02-17] MEDS: IPRATROPIUM BROMIDE 0.5 MG/2.5 ML NEBU NEB SCH ×6 (03:30→23:26)
[2023-02-17] MEDS: MIDODRINE HCL 10 MG TABLET GT SCH ×3 (05:40→21:20)
[2023-02-17] MEDS: BACLOFEN 20 MG TABLET GT SCH ×3 (05:40→21:20)
[2023-02-17] MEDS: METOCLOPRAMIDE HCL 5 MG TABLET GT SCH ×3 (05:40→21:20)
[2023-02-17] MEDS: MAGNESIUM OXIDE 400 MG TABLET GT SCH (05:40)
[2023-02-17] MEDS: OMEPRAZOLE 20 MG CAPSULE.DR GT SCH (05:40)
[2023-02-17 08:00] VITALS: TEMP 97.5
[2023-02-17] MEDS: HYDROGEN PEROXIDE 3% 118 ML BOTTLE TP SCH ×3 (08:14→23:26)
[2023-02-17] MEDS: REMEDY ESSENTIAL ZINC PASTE 113 GM TP SCH ×2 (09:00→21:20)
[2023-02-17] MEDS: FUROSEMIDE 10 MG/ML GT SCH (09:00)
[2023-02-17] MEDS: ACIDOPHILUS/BULGARICUS CHEW TAB GT SCH ×2 (09:00→21:17)
[2023-02-17] MEDS: POTASSIUM CHLORIDE 40 MEQ/30 ML LIQUID UDC GT SCH (09:00)
[2023-02-17] MEDS: FERROUS SULFATE 330 MG/7.5 ML UDC- FOR SA ONLY GT SCH ×2 (09:00→21:16)
[2023-02-17] MEDS: levETIRAcetam 500 MG/5 ML LIQUID UDC GT SCH ×2 (09:00→21:18)
[2023-02-17] MEDS: PHENYTOIN 100 MG/4 ML UDC GT SCH ×2 (09:58→21:15)
[2023-02-17] MEDS: VITAL AF 1.2 1,000 ML LIQUID GT PRN (11:24)
[2023-02-17 20:08] VITALS: TEMP 97.7
[2023-02-17] MEDS: FOLIC ACID 1 MG TABLET GT SCH (21:17)
[2023-02-17] MEDS: THIAMINE HCL 100 MG TABLET GT SCH (21:20)
[2023-02-17] MEDS: CHOLECALCIFEROL 1,000 UNIT TABLET GT SCH (21:20)
[2023-02-18] MEDS: IPRATROPIUM BROMIDE 0.5 MG/2.5 ML NEBU NEB SCH ×5 (03:14→19:04)
[2023-02-18] MEDS: ALBUTEROL SULFATE 2.5 MG/3 ML NEBU NEB SCH ×5 (03:14→19:04)
[2023-02-18] MEDS: MAGNESIUM OXIDE 400 MG TABLET GT SCH (05:26)
[2023-02-18] MEDS: BACLOFEN 20 MG TABLET GT SCH ×3 (05:26→21:16)
[2023-02-18] MEDS: OMEPRAZOLE 20 MG CAPSULE.DR GT SCH (05:27)
[2023-02-18] MEDS: METOCLOPRAMIDE HCL 5 MG TABLET GT SCH ×3 (05:27→21:16)
[2023-02-18] MEDS: MIDODRINE HCL 10 MG TABLET GT SCH ×3 (05:27→21:16)
[2023-02-18] MEDS: HYDROGEN PEROXIDE 3% 118 ML BOTTLE TP SCH (07:28)
[2023-02-18 08:00] VITALS: TEMP 97.5
[2023-02-18] MEDS: PHENYTOIN 100 MG/4 ML UDC GT SCH ×2 (09:47→21:15)
[2023-02-18] MEDS: ACIDOPHILUS/BULGARICUS CHEW TAB GT SCH ×2 (09:50→21:15)
[2023-02-18] MEDS: FUROSEMIDE 10 MG/ML GT SCH (09:51)
[2023-02-18] MEDS: levETIRAcetam 500 MG/5 ML LIQUID UDC GT SCH ×2 (09:52→21:16)
[2023-02-18] MEDS: FERROUS SULFATE 330 MG/7.5 ML UDC- FOR SA ONLY GT SCH ×2 (09:52→21:15)
[2023-02-18] MEDS: REMEDY ESSENTIAL ZINC PASTE 113 GM TP SCH ×2 (09:53→21:16)
[2023-02-18] MEDS: POTASSIUM CHLORIDE 40 MEQ/30 ML LIQUID UDC GT SCH (09:53)
[2023-02-18 20:22] VITALS: TEMP 93.1
[2023-02-18] MEDS: MIRALAX 17 GM POWD.PACK GT SCH (21:16)
[2023-02-18] MEDS: THIAMINE HCL 100 MG TABLET GT SCH (21:16)
[2023-02-18] MEDS: CHOLECALCIFEROL 1,000 UNIT TABLET GT SCH (21:16)
[2023-02-18] MEDS: FOLIC ACID 1 MG TABLET GT SCH (21:16)
[2023-02-19] MEDS: ALBUTEROL SULFATE 2.5 MG/3 ML NEBU NEB SCH ×7 (00:05→23:10)
[2023-02-19] MEDS: IPRATROPIUM BROMIDE 0.5 MG/2.5 ML NEBU NEB SCH ×7 (00:05→23:10)
[2023-02-19] MEDS: VITAL AF 1.2 1,000 ML LIQUID GT PRN (04:06)
[2023-02-19] MEDS: BACLOFEN 20 MG TABLET GT SCH ×3 (06:01→21:19)
[2023-02-19] MEDS: MAGNESIUM OXIDE 400 MG TABLET GT SCH (06:01)
[2023-02-19] MEDS: OMEPRAZOLE 20 MG CAPSULE.DR GT SCH (06:02)
[2023-02-19] MEDS: METOCLOPRAMIDE HCL 5 MG TABLET GT SCH ×3 (06:02→21:22)
[2023-02-19] MEDS: MIDODRINE HCL 10 MG TABLET GT SCH ×3 (06:02→21:22)
[2023-02-19 08:00] VITALS: TEMP 97.7
[2023-02-19] MEDS: FERROUS SULFATE 330 MG/7.5 ML UDC- FOR SA ONLY GT SCH ×2 (09:04→21:19)
[2023-02-19] MEDS: PHENYTOIN 100 MG/4 ML UDC GT SCH ×2 (09:04→21:19)
[2023-02-19] MEDS: ACIDOPHILUS/BULGARICUS CHEW TAB GT SCH ×2 (09:05→21:19)
[2023-02-19] MEDS: FUROSEMIDE 10 MG/ML GT SCH (09:06)
[2023-02-19] MEDS: levETIRAcetam 500 MG/5 ML LIQUID UDC GT SCH ×2 (09:06→21:19)
[2023-02-19] MEDS: POTASSIUM CHLORIDE 40 MEQ/30 ML LIQUID UDC GT SCH (09:07)
[2023-02-19] MEDS: REMEDY ESSENTIAL ZINC PASTE 113 GM TP SCH ×2 (09:08→21:19)
[2023-02-19] MEDS: HYDROGEN PEROXIDE 3% 118 ML BOTTLE TP SCH ×2 (12:36→21:09)
[2023-02-19] MEDS: FOLIC ACID 1 MG TABLET GT SCH (21:19)
[2023-02-19] MEDS: CHOLECALCIFEROL 1,000 UNIT TABLET GT SCH (21:19)
[2023-02-19] MEDS: THIAMINE HCL 100 MG TABLET GT SCH (21:19)
[2023-02-19 21:59] VITALS: TEMP 97.5
[2023-02-20] MEDS: ALBUTEROL SULFATE 2.5 MG/3 ML NEBU NEB SCH ×6 (03:19→23:04)
[2023-02-20] MEDS: IPRATROPIUM BROMIDE 0.5 MG/2.5 ML NEBU NEB SCH ×6 (03:19→23:04)
[2023-02-20] MEDS: MAGNESIUM OXIDE 400 MG TABLET GT SCH (06:05)
[2023-02-20] MEDS: BACLOFEN 20 MG TABLET GT SCH ×3 (06:05→21:45)
[2023-02-20] MEDS: OMEPRAZOLE 20 MG CAPSULE.DR GT SCH (06:06)
[2023-02-20] MEDS: METOCLOPRAMIDE HCL 5 MG TABLET GT SCH ×3 (06:06→21:45)
[2023-02-20] MEDS: MIDODRINE HCL 10 MG TABLET GT SCH ×3 (06:06→21:45)
[2023-02-20] MEDS: HYDROGEN PEROXIDE 3% 118 ML BOTTLE TP SCH ×2 (07:30→19:19)
[2023-02-20 07:52] VITALS: TEMP 97.2
[2023-02-20] MEDS: PHENYTOIN 100 MG/4 ML UDC GT SCH ×2 (09:21→20:30)
[2023-02-20] MEDS: FERROUS SULFATE 330 MG/7.5 ML UDC- FOR SA ONLY GT SCH ×2 (09:23→20:32)
[2023-02-20] MEDS: ACIDOPHILUS/BULGARICUS CHEW TAB GT SCH ×2 (09:23→20:32)
[2023-02-20] MEDS: FUROSEMIDE 10 MG/ML GT SCH (09:24)
[2023-02-20] MEDS: levETIRAcetam 500 MG/5 ML LIQUID UDC GT SCH ×2 (09:25→20:30)
[2023-02-20] MEDS: POTASSIUM CHLORIDE 40 MEQ/30 ML LIQUID UDC GT SCH (09:27)
[2023-02-20] MEDS: REMEDY ESSENTIAL ZINC PASTE 113 GM TP SCH ×2 (09:27→20:34)
[2023-02-20] MEDS: VITAL AF 1.2 1,000 ML LIQUID GT PRN (14:13)
[2023-02-20 20:00] VITALS: TEMP 97.7
[2023-02-20] MEDS: CHOLECALCIFEROL 1,000 UNIT TABLET GT SCH (20:33)
[2023-02-20] MEDS: THIAMINE HCL 100 MG TABLET GT SCH (20:33)
[2023-02-20] MEDS: FOLIC ACID 1 MG TABLET GT SCH (20:34)
[2023-02-20] MEDS: MIRALAX 17 GM POWD.PACK GT SCH (20:36)
[2023-02-21] MEDS: ALBUTEROL SULFATE 2.5 MG/3 ML NEBU NEB SCH ×6 (03:28→23:11)
[2023-02-21] MEDS: IPRATROPIUM BROMIDE 0.5 MG/2.5 ML NEBU NEB SCH ×6 (03:28→23:11)
[2023-02-21] MEDS: BACLOFEN 20 MG TABLET GT SCH ×3 (05:23→22:18)
[2023-02-21] MEDS: MIDODRINE HCL 10 MG TABLET GT SCH ×3 (05:23→22:00)
[2023-02-21] MEDS: METOCLOPRAMIDE HCL 5 MG TABLET GT SCH ×3 (05:24→22:19)
[2023-02-21] MEDS: MAGNESIUM OXIDE 400 MG TABLET GT SCH (05:24)
[2023-02-21] MEDS: OMEPRAZOLE 20 MG CAPSULE.DR GT SCH (05:24)
[2023-02-21] MEDS: HYDROGEN PEROXIDE 3% 118 ML BOTTLE TP SCH ×2 (07:14→19:14)
[2023-02-21 08:00] VITALS: TEMP 94.6
[2023-02-21] MEDS: PHENYTOIN 100 MG/4 ML UDC GT SCH ×2 (09:11→20:27)
[2023-02-21] MEDS: FERROUS SULFATE 330 MG/7.5 ML UDC- FOR SA ONLY GT SCH ×2 (09:11→20:27)
[2023-02-21] MEDS: ACIDOPHILUS/BULGARICUS CHEW TAB GT SCH ×2 (09:12→20:29)
[2023-02-21] MEDS: FUROSEMIDE 10 MG/ML GT SCH (09:12)
[2023-02-21] MEDS: REMEDY ESSENTIAL ZINC PASTE 113 GM TP SCH ×2 (09:13→20:30)
[2023-02-21] MEDS: levETIRAcetam 500 MG/5 ML LIQUID UDC GT SCH ×2 (09:13→20:30)
[2023-02-21] MEDS: POTASSIUM CHLORIDE 40 MEQ/30 ML LIQUID UDC GT SCH (09:13)
[2023-02-21 10:00] VITALS: TEMP 97.7; O2SAT 100
[2023-02-21 18:00] VITALS: TEMP 98.2
[2023-02-21 20:00] VITALS: TEMP 98.4
[2023-02-21] MEDS: FOLIC ACID 1 MG TABLET GT SCH (20:29)
[2023-02-21] MEDS: THIAMINE HCL 100 MG TABLET GT SCH (20:30)
[2023-02-21] MEDS: CHOLECALCIFEROL 1,000 UNIT TABLET GT SCH (20:30)
[2023-02-22] MEDS: ALBUTEROL SULFATE 2.5 MG/3 ML NEBU NEB SCH ×6 (03:13→23:06)
[2023-02-22] MEDS: IPRATROPIUM BROMIDE 0.5 MG/2.5 ML NEBU NEB SCH ×6 (03:13→23:06)
[2023-02-22] MEDS: MAGNESIUM OXIDE 400 MG TABLET GT SCH (05:23)
[2023-02-22] MEDS: BACLOFEN 20 MG TABLET GT SCH ×3 (05:23→21:59)
[2023-02-22] MEDS: OMEPRAZOLE 20 MG CAPSULE.DR GT SCH (05:23)
[2023-02-22] MEDS: VITAL AF 1.2 1,000 ML LIQUID GT PRN (05:23)
[2023-02-22] MEDS: MIDODRINE HCL 10 MG TABLET GT SCH ×3 (05:23→22:01)
[2023-02-22] MEDS: METOCLOPRAMIDE HCL 5 MG TABLET GT SCH ×3 (05:23→22:01)
[2023-02-22] MEDS: HYDROGEN PEROXIDE 3% 118 ML BOTTLE TP SCH ×2 (07:38→19:19)
[2023-02-22 08:00] VITALS: TEMP 98.7
[2023-02-22] MEDS: FERROUS SULFATE 330 MG/7.5 ML UDC- FOR SA ONLY GT SCH ×2 (08:38→21:59)
[2023-02-22] MEDS: PHENYTOIN 100 MG/4 ML UDC GT SCH ×2 (08:38→21:59)
[2023-02-22] MEDS: FUROSEMIDE 10 MG/ML GT SCH (08:39)
[2023-02-22] MEDS: REMEDY ESSENTIAL ZINC PASTE 113 GM TP SCH ×2 (08:39→21:59)
[2023-02-22] MEDS: levETIRAcetam 500 MG/5 ML LIQUID UDC GT SCH ×2 (08:39→21:59)
[2023-02-22] MEDS: ACIDOPHILUS/BULGARICUS CHEW TAB GT SCH ×2 (08:39→21:59)
[2023-02-22] MEDS: POTASSIUM CHLORIDE 40 MEQ/30 ML LIQUID UDC GT SCH (08:39)
[2023-02-22 20:00] VITALS: TEMP 98.8
[2023-02-22] MEDS: THIAMINE HCL 100 MG TABLET GT SCH (21:59)
[2023-02-22] MEDS: FOLIC ACID 1 MG TABLET GT SCH (21:59)
[2023-02-22] MEDS: CHOLECALCIFEROL 1,000 UNIT TABLET GT SCH (21:59)
[2023-02-23] MEDS: ALBUTEROL SULFATE 2.5 MG/3 ML NEBU NEB SCH ×6 (03:15→23:24)
[2023-02-23] MEDS: IPRATROPIUM BROMIDE 0.5 MG/2.5 ML NEBU NEB SCH ×6 (03:15→23:24)
[2023-02-23] MEDS: METOCLOPRAMIDE HCL 5 MG TABLET GT SCH ×3 (06:08→21:05)
[2023-02-23] MEDS: MAGNESIUM OXIDE 400 MG TABLET GT SCH (06:08)
[2023-02-23] MEDS: BACLOFEN 20 MG TABLET GT SCH ×3 (06:08→21:05)
[2023-02-23] MEDS: OMEPRAZOLE 20 MG CAPSULE.DR GT SCH (06:08)
[2023-02-23] MEDS: MIDODRINE HCL 10 MG TABLET GT SCH ×3 (06:08→21:05)
[2023-02-23] MEDS: HYDROGEN PEROXIDE 3% 118 ML BOTTLE TP SCH ×2 (08:09→19:21)
[2023-02-23] MEDS: FUROSEMIDE 10 MG/ML GT SCH (09:17)
[2023-02-23] MEDS: ACIDOPHILUS/BULGARICUS CHEW TAB GT SCH ×2 (09:17→20:57)
[2023-02-23] MEDS: POTASSIUM CHLORIDE 40 MEQ/30 ML LIQUID UDC GT SCH (09:17)
[2023-02-23] MEDS: FERROUS SULFATE 330 MG/7.5 ML UDC- FOR SA ONLY GT SCH ×2 (09:17→20:57)
[2023-02-23] MEDS: PHENYTOIN 100 MG/4 ML UDC GT SCH ×2 (09:17→20:57)
[2023-02-23] MEDS: REMEDY ESSENTIAL ZINC PASTE 113 GM TP SCH ×2 (09:17→20:58)
[2023-02-23] MEDS: levETIRAcetam 500 MG/5 ML LIQUID UDC GT SCH ×2 (09:17→20:58)
[2023-02-23 11:06] VITALS: TEMP 98
[2023-02-23 20:00] VITALS: TEMP 98.3
[2023-02-23] MEDS: FOLIC ACID 1 MG TABLET GT SCH (20:57)
[2023-02-23] MEDS: THIAMINE HCL 100 MG TABLET GT SCH (20:58)
[2023-02-23] MEDS: CHOLECALCIFEROL 1,000 UNIT TABLET GT SCH (20:58)
[2023-02-23] MEDS: MIRALAX 17 GM POWD.PACK GT SCH (20:58)
[2023-02-24] MEDS: IPRATROPIUM BROMIDE 0.5 MG/2.5 ML NEBU NEB SCH ×6 (03:20→22:31)
[2023-02-24] MEDS: ALBUTEROL SULFATE 2.5 MG/3 ML NEBU NEB SCH ×6 (03:20→22:31)
[2023-02-24] MEDS: METOCLOPRAMIDE HCL 5 MG TABLET GT SCH ×3 (06:43→21:09)
[2023-02-24] MEDS: MIDODRINE HCL 10 MG TABLET GT SCH ×3 (06:43→21:09)
[2023-02-24] MEDS: OMEPRAZOLE 20 MG CAPSULE.DR GT SCH (06:43)
[2023-02-24] MEDS: MAGNESIUM OXIDE 400 MG TABLET GT SCH (06:43)
[2023-02-24] MEDS: BACLOFEN 20 MG TABLET GT SCH ×3 (06:43→21:09)
[2023-02-24] MEDS: HYDROGEN PEROXIDE 3% 118 ML BOTTLE TP SCH ×2 (07:14→19:39)
[2023-02-24] MEDS: REMEDY ESSENTIAL ZINC PASTE 113 GM TP SCH ×2 (09:00→21:09)
[2023-02-24] MEDS: FUROSEMIDE 10 MG/ML GT SCH (09:00)
[2023-02-24] MEDS: PHENYTOIN 100 MG/4 ML UDC GT SCH ×2 (09:00→21:08)
[2023-02-24] MEDS: ACIDOPHILUS/BULGARICUS CHEW TAB GT SCH ×2 (09:00→21:08)
[2023-02-24] MEDS: FERROUS SULFATE 330 MG/7.5 ML UDC- FOR SA ONLY GT SCH ×2 (09:00→21:08)
[2023-02-24] MEDS: levETIRAcetam 500 MG/5 ML LIQUID UDC GT SCH ×2 (09:00→21:08)
[2023-02-24] MEDS: POTASSIUM CHLORIDE 40 MEQ/30 ML LIQUID UDC GT SCH (09:00)
[2023-02-24 09:05] VITALS: TEMP 98
[2023-02-24 18:14] VITALS: O2SAT 98
[2023-02-24] MEDS: VITAL AF 1.2 1,000 ML LIQUID GT PRN (18:56)
[2023-02-24 20:00] VITALS: TEMP 98.4
[2023-02-24] MEDS: FOLIC ACID 1 MG TABLET GT SCH (21:08)
[2023-02-24] MEDS: CHOLECALCIFEROL 1,000 UNIT TABLET GT SCH (21:08)
[2023-02-24] MEDS: THIAMINE HCL 100 MG TABLET GT SCH (21:08)
[2023-02-25] MEDS: ALBUTEROL SULFATE 2.5 MG/3 ML NEBU NEB SCH ×6 (02:46→23:04)
[2023-02-25] MEDS: IPRATROPIUM BROMIDE 0.5 MG/2.5 ML NEBU NEB SCH ×6 (02:46→23:04)
[2023-02-25] MEDS: MIDODRINE HCL 10 MG TABLET GT SCH ×3 (06:00→21:49)
[2023-02-25] MEDS: MAGNESIUM OXIDE 400 MG TABLET GT SCH (06:18)
[2023-02-25] MEDS: BACLOFEN 20 MG TABLET GT SCH ×3 (06:18→21:49)
[2023-02-25] MEDS: METOCLOPRAMIDE HCL 5 MG TABLET GT SCH ×3 (06:18→21:49)
[2023-02-25] MEDS: OMEPRAZOLE 20 MG CAPSULE.DR GT SCH (06:18)
[2023-02-25 08:00] VITALS: TEMP 97
[2023-02-25] MEDS: HYDROGEN PEROXIDE 3% 118 ML BOTTLE TP SCH ×2 (09:00→19:12)
[2023-02-25] MEDS: PHENYTOIN 100 MG/4 ML UDC GT SCH ×2 (09:45→20:34)
[2023-02-25] MEDS: FERROUS SULFATE 330 MG/7.5 ML UDC- FOR SA ONLY GT SCH ×2 (09:46→20:34)
[2023-02-25] MEDS: ACIDOPHILUS/BULGARICUS CHEW TAB GT SCH ×2 (09:47→20:34)
[2023-02-25] MEDS: FUROSEMIDE 10 MG/ML GT SCH (09:48)
[2023-02-25] MEDS: levETIRAcetam 500 MG/5 ML LIQUID UDC GT SCH ×2 (09:49→20:35)
[2023-02-25] MEDS: POTASSIUM CHLORIDE 40 MEQ/30 ML LIQUID UDC GT SCH (09:50)
[2023-02-25] MEDS: REMEDY ESSENTIAL ZINC PASTE 113 GM TP SCH ×2 (09:50→20:36)
[2023-02-25 20:00] VITALS: TEMP 99.5
[2023-02-25] MEDS: THIAMINE HCL 100 MG TABLET GT SCH (20:35)
[2023-02-25] MEDS: MIRALAX 17 GM POWD.PACK GT SCH (20:35)
[2023-02-25] MEDS: FOLIC ACID 1 MG TABLET GT SCH (20:35)
[2023-02-25] MEDS: CHOLECALCIFEROL 1,000 UNIT TABLET GT SCH (20:36)
[2023-02-26] MEDS: ALBUTEROL SULFATE 2.5 MG/3 ML NEBU NEB SCH ×5 (03:30→19:13)
[2023-02-26] MEDS: IPRATROPIUM BROMIDE 0.5 MG/2.5 ML NEBU NEB SCH ×5 (03:30→19:13)
[2023-02-26] MEDS: METOCLOPRAMIDE HCL 5 MG TABLET GT SCH ×3 (05:52→21:28)
[2023-02-26] MEDS: MIDODRINE HCL 10 MG TABLET GT SCH ×3 (05:52→21:28)
[2023-02-26] MEDS: MAGNESIUM OXIDE 400 MG TABLET GT SCH (05:52)
[2023-02-26] MEDS: OMEPRAZOLE 20 MG CAPSULE.DR GT SCH (05:52)
[2023-02-26] MEDS: BACLOFEN 20 MG TABLET GT SCH ×3 (05:52→21:28)
[2023-02-26 07:49] VITALS: TEMP 98.5
[2023-02-26] MEDS: HYDROGEN PEROXIDE 3% 118 ML BOTTLE TP SCH ×2 (08:26→19:13)
[2023-02-26] MEDS: PHENYTOIN 100 MG/4 ML UDC GT SCH ×2 (09:32→21:28)
[2023-02-26] MEDS: FUROSEMIDE 10 MG/ML GT SCH (09:32)
[2023-02-26] MEDS: ACIDOPHILUS/BULGARICUS CHEW TAB GT SCH ×2 (09:32→21:28)
[2023-02-26] MEDS: FERROUS SULFATE 330 MG/7.5 ML UDC- FOR SA ONLY GT SCH ×2 (09:32→21:28)
[2023-02-26] MEDS: levETIRAcetam 500 MG/5 ML LIQUID UDC GT SCH ×2 (09:33→21:28)
[2023-02-26] MEDS: POTASSIUM CHLORIDE 40 MEQ/30 ML LIQUID UDC GT SCH (09:33)
[2023-02-26] MEDS: REMEDY ESSENTIAL ZINC PASTE 113 GM TP SCH ×2 (09:34→21:28)
[2023-02-26 20:00] VITALS: TEMP 98.4
[2023-02-26] MEDS: CHOLECALCIFEROL 1,000 UNIT TABLET GT SCH (21:28)
[2023-02-26] MEDS: THIAMINE HCL 100 MG TABLET GT SCH (21:28)
[2023-02-26] MEDS: FOLIC ACID 1 MG TABLET GT SCH (21:28)
[2023-02-27] MEDS: ALBUTEROL SULFATE 2.5 MG/3 ML NEBU NEB SCH ×7 (00:20→23:09)
[2023-02-27] MEDS: IPRATROPIUM BROMIDE 0.5 MG/2.5 ML NEBU NEB SCH ×7 (00:20→23:09)
[2023-02-27] MEDS: BACLOFEN 20 MG TABLET GT SCH ×3 (05:18→21:27)
[2023-02-27] MEDS: MAGNESIUM OXIDE 400 MG TABLET GT SCH (05:18)
[2023-02-27] MEDS: MIDODRINE HCL 10 MG TABLET GT SCH ×3 (05:18→21:28)
[2023-02-27] MEDS: OMEPRAZOLE 20 MG CAPSULE.DR GT SCH (05:19)
[2023-02-27] MEDS: METOCLOPRAMIDE HCL 5 MG TABLET GT SCH ×3 (05:19→21:28)
[2023-02-27] MEDS: HYDROGEN PEROXIDE 3% 118 ML BOTTLE TP SCH ×2 (07:32→19:15)
[2023-02-27 07:51] VITALS: TEMP 97.8
[2023-02-27] MEDS: PHENYTOIN 100 MG/4 ML UDC GT SCH ×2 (08:25→20:30)
[2023-02-27] MEDS: FERROUS SULFATE 330 MG/7.5 ML UDC- FOR SA ONLY GT SCH ×2 (08:25→20:30)
[2023-02-27] MEDS: ACIDOPHILUS/BULGARICUS CHEW TAB GT SCH ×2 (08:25→20:30)
[2023-02-27] MEDS: levETIRAcetam 500 MG/5 ML LIQUID UDC GT SCH ×2 (08:26→20:30)
[2023-02-27] MEDS: FUROSEMIDE 10 MG/ML GT SCH (08:26)
[2023-02-27] MEDS: REMEDY ESSENTIAL ZINC PASTE 113 GM TP SCH ×2 (08:27→20:30)
[2023-02-27] MEDS: POTASSIUM CHLORIDE 40 MEQ/30 ML LIQUID UDC GT SCH (08:27)
[2023-02-27] MEDS: VITAL AF 1.2 1,000 ML LIQUID GT PRN (14:32)
[2023-02-27] MEDS: CHOLECALCIFEROL 1,000 UNIT TABLET GT SCH (20:30)
[2023-02-27] MEDS: MIRALAX 17 GM POWD.PACK GT SCH (20:30)
[2023-02-27] MEDS: FOLIC ACID 1 MG TABLET GT SCH (20:30)
[2023-02-27] MEDS: THIAMINE HCL 100 MG TABLET GT SCH (20:30)
[2023-02-28] MEDS: ALBUTEROL SULFATE 2.5 MG/3 ML NEBU NEB SCH ×6 (03:49→23:15)
[2023-02-28] MEDS: IPRATROPIUM BROMIDE 0.5 MG/2.5 ML NEBU NEB SCH ×6 (03:49→23:15)
[2023-02-28] MEDS: [UNRECOGNIZED DRUG - OTHER] PR PRN (04:30)
[2023-02-28] MEDS: MIDODRINE HCL 10 MG TABLET GT SCH ×3 (05:35→21:21)
[2023-02-28] MEDS: OMEPRAZOLE 20 MG CAPSULE.DR GT SCH (05:35)
[2023-02-28] MEDS: BACLOFEN 20 MG TABLET GT SCH ×3 (05:35→21:21)
[2023-02-28] MEDS: MAGNESIUM OXIDE 400 MG TABLET GT SCH (05:35)
[2023-02-28] MEDS: METOCLOPRAMIDE HCL 5 MG TABLET GT SCH ×3 (05:35→21:22)
[2023-02-28] MEDS: HYDROGEN PEROXIDE 3% 118 ML BOTTLE TP SCH ×2 (07:14→19:11)
[2023-02-28 08:00] VITALS: TEMP 97.5
[2023-02-28] MEDS: levETIRAcetam 500 MG/5 ML LIQUID UDC GT SCH ×2 (09:57→21:21)
[2023-02-28] MEDS: PHENYTOIN 100 MG/4 ML UDC GT SCH ×2 (09:57→21:21)
[2023-02-28] MEDS: FUROSEMIDE 10 MG/ML GT SCH (09:57)
[2023-02-28] MEDS: FERROUS SULFATE 330 MG/7.5 ML UDC- FOR SA ONLY GT SCH ×2 (09:57→21:21)
[2023-02-28] MEDS: REMEDY ESSENTIAL ZINC PASTE 113 GM TP SCH ×2 (09:57→21:21)
[2023-02-28] MEDS: POTASSIUM CHLORIDE 40 MEQ/30 ML LIQUID UDC GT SCH (09:57)
[2023-02-28] MEDS: ACIDOPHILUS/BULGARICUS CHEW TAB GT SCH ×2 (09:57→21:21)
[2023-02-28 20:00] VITALS: TEMP 97.1
[2023-02-28] MEDS: FOLIC ACID 1 MG TABLET GT SCH (21:21)
[2023-02-28] MEDS: THIAMINE HCL 100 MG TABLET GT SCH (21:21)
[2023-02-28] MEDS: CHOLECALCIFEROL 1,000 UNIT TABLET GT SCH (21:21)
[2023-03-01] MEDS: ALBUTEROL SULFATE 2.5 MG/3 ML NEBU NEB SCH ×6 (03:45→23:32)
[2023-03-01] MEDS: IPRATROPIUM BROMIDE 0.5 MG/2.5 ML NEBU NEB SCH ×6 (03:45→23:32)
[2023-03-01] MEDS: VITAL AF 1.2 1,000 ML LIQUID GT PRN (04:42)
[2023-03-01] MEDS: BACLOFEN 20 MG TABLET GT SCH ×3 (05:38→21:18)
[2023-03-01] MEDS: MAGNESIUM OXIDE 400 MG TABLET GT SCH (05:38)
[2023-03-01] MEDS: METOCLOPRAMIDE HCL 5 MG TABLET GT SCH ×3 (05:39→21:18)
[2023-03-01] MEDS: OMEPRAZOLE 20 MG CAPSULE.DR GT SCH (05:39)
[2023-03-01] MEDS: MIDODRINE HCL 10 MG TABLET GT SCH ×3 (05:39→21:18)
[2023-03-01 07:47] VITALS: TEMP 97.6
[2023-03-01] MEDS: HYDROGEN PEROXIDE 3% 118 ML BOTTLE TP SCH ×2 (08:19→21:26)
[2023-03-01] MEDS: levETIRAcetam 500 MG/5 ML LIQUID UDC GT SCH ×2 (09:42→21:18)
[2023-03-01] MEDS: ACIDOPHILUS/BULGARICUS CHEW TAB GT SCH ×2 (09:42→21:18)
[2023-03-01] MEDS: FUROSEMIDE 10 MG/ML GT SCH (09:42)
[2023-03-01] MEDS: FERROUS SULFATE 330 MG/7.5 ML UDC- FOR SA ONLY GT SCH ×2 (09:42→21:18)
[2023-03-01] MEDS: POTASSIUM CHLORIDE 40 MEQ/30 ML LIQUID UDC GT SCH (09:42)
[2023-03-01] MEDS: PHENYTOIN 100 MG/4 ML UDC GT SCH ×2 (09:42→21:18)
[2023-03-01] MEDS: REMEDY ESSENTIAL ZINC PASTE 113 GM TP SCH ×2 (09:44→21:18)
[2023-03-01 20:38] VITALS: TEMP 98.4
[2023-03-01] MEDS: FOLIC ACID 1 MG TABLET GT SCH (21:18)
[2023-03-01] MEDS: CHOLECALCIFEROL 1,000 UNIT TABLET GT SCH (21:18)
[2023-03-01] MEDS: THIAMINE HCL 100 MG TABLET GT SCH (21:18)
[2023-03-02] MEDS: IPRATROPIUM BROMIDE 0.5 MG/2.5 ML NEBU NEB SCH ×6 (03:29→23:20)
[2023-03-02] MEDS: ALBUTEROL SULFATE 2.5 MG/3 ML NEBU NEB SCH ×6 (03:29→23:20)
[2023-03-02] MEDS: MIDODRINE HCL 10 MG TABLET GT SCH ×3 (05:48→21:23)
[2023-03-02] MEDS: OMEPRAZOLE 20 MG CAPSULE.DR GT SCH (05:48)
[2023-03-02] MEDS: METOCLOPRAMIDE HCL 5 MG TABLET GT SCH ×3 (05:48→21:23)
[2023-03-02] MEDS: BACLOFEN 20 MG TABLET GT SCH ×3 (05:48→21:23)
[2023-03-02] MEDS: MAGNESIUM OXIDE 400 MG TABLET GT SCH (05:48)
[2023-03-02 07:27] LABS: BASOPHILS % (AUTO) 0.4 % (0.0-2.0); EOSINOPHILS # (AUTO) 0.1 K/uL (0.0-0.7); HEMATOCRIT 27.3 % (31.2-41.9); HEMOGLOBIN 9.3 g/dL (10.9-14.3); LYMPHOCYTES # (AUTO) 1.7 K/uL (0.8-4.8); MEAN CORPUSCULAR HEMOGLOBIN 31.3 uug (24.7-32.8); MEAN CORPUSCULAR HGB CONC 34 g/dL (32.3-35.6); MEAN CORPUSCULAR VOLUME 91.7 fL (75.5-95.3); MONOCYTES # (AUTO) 0.7 K/uL (0.1-1.30); MONOCYTES % (AUTO) 8.7 % (0.0-11.0); NEUTROPHILS % (AUTO) 66.9 % (38.5-71.5); PLATELET COUNT (AUTO) 310 K/uL (179-408); RED BLOOD CELL COUNT(AUTO) 2.98 MIL/uL (3.63-4.92); RED CELL DISTRIBUTION WIDTH 17.5 % (12.3-17.7); WHITE BLOOD COUNT (AUTO) 7.5 K/uL (3.8-11.8)
[2023-03-02 07:33] LABS: DIFFERENTIAL COMMENT 1
[2023-03-02 07:46] LABS: CALCIUM 8.2 mg/dL (8.5-10.1); CARBON DIOXIDE 22 mmol/L (21-32); CHLORIDE 104 mmol/L (98-107); CREATININE 0.5 mg/dL (0.6-1.3); GLUCOSE 84 mg/dL (74-106); PHOSPHOROUS 3.6 mg/dL (2.5-4.9); POTASSIUM 3.3 mmol/L (3.5-5.1); SODIUM SERUM 138 mmol/L (136-145); UREA NITROGEN, BLOOD 11 mg/dL (7-18)
[2023-03-02] MEDS: HYDROGEN PEROXIDE 3% 118 ML BOTTLE TP SCH ×2 (07:48→19:07)
[2023-03-02 08:00] VITALS: TEMP 97.8
[2023-03-02] MEDS: FERROUS SULFATE 330 MG/7.5 ML UDC- FOR SA ONLY GT SCH ×2 (09:42→20:32)
[2023-03-02] MEDS: PHENYTOIN 100 MG/4 ML UDC GT SCH ×2 (09:42→20:32)
[2023-03-02] MEDS: ACIDOPHILUS/BULGARICUS CHEW TAB GT SCH ×2 (09:42→20:32)
[2023-03-02] MEDS: REMEDY ESSENTIAL ZINC PASTE 113 GM TP SCH ×2 (09:43→20:34)
[2023-03-02] MEDS: FUROSEMIDE 10 MG/ML GT SCH (09:43)
[2023-03-02] MEDS: POTASSIUM CHLORIDE 40 MEQ/30 ML LIQUID UDC GT SCH (09:43)
[2023-03-02] MEDS: levETIRAcetam 500 MG/5 ML LIQUID UDC GT SCH ×2 (09:43→20:33)
[2023-03-02] MEDS ORDERED: POTASSIUM CHLORIDE 20 MEQ TAB.PRT.SR XX ONE (13:30)
[2023-03-02] MEDS ORDERED: POTASSIUM CHLORIDE 10 MEQ TAB.PRT.SR XX ONE (16:00)
[2023-03-02 19:50] VITALS: TEMP 96.4
[2023-03-02] MEDS: FOLIC ACID 1 MG TABLET GT SCH (20:32)
[2023-03-02] MEDS: MIRALAX 17 GM POWD.PACK GT SCH (20:33)
[2023-03-02] MEDS: THIAMINE HCL 100 MG TABLET GT SCH (20:34)
[2023-03-02] MEDS: CHOLECALCIFEROL 1,000 UNIT TABLET GT SCH (20:34)
[2023-03-03] MEDS: ALBUTEROL SULFATE 2.5 MG/3 ML NEBU NEB SCH ×6 (04:28→23:45)
[2023-03-03] MEDS: IPRATROPIUM BROMIDE 0.5 MG/2.5 ML NEBU NEB SCH ×6 (04:28→23:45)
[2023-03-03] MEDS: MIDODRINE HCL 10 MG TABLET GT SCH ×3 (05:15→21:11)
[2023-03-03] MEDS: MAGNESIUM OXIDE 400 MG TABLET GT SCH (05:15)
[2023-03-03] MEDS: BACLOFEN 20 MG TABLET GT SCH ×3 (05:15→21:11)
[2023-03-03] MEDS: METOCLOPRAMIDE HCL 5 MG TABLET GT SCH ×3 (05:15→21:12)
[2023-03-03] MEDS: OMEPRAZOLE 20 MG CAPSULE.DR GT SCH (05:15)
[2023-03-03 08:00] VITALS: BP 98/56; TEMP 97.5; TEMP 97.8; O2SAT 99
[2023-03-03] MEDS: HYDROGEN PEROXIDE 3% 118 ML BOTTLE TP SCH ×2 (08:15→19:15)
[2023-03-03] MEDS: levETIRAcetam 500 MG/5 ML LIQUID UDC GT SCH ×2 (08:45→21:10)
[2023-03-03] MEDS: REMEDY ESSENTIAL ZINC PASTE 113 GM TP SCH ×2 (08:45→21:11)
[2023-03-03] MEDS: FERROUS SULFATE 330 MG/7.5 ML UDC- FOR SA ONLY GT SCH ×2 (08:45→21:09)
[2023-03-03] MEDS: POTASSIUM CHLORIDE 40 MEQ/30 ML LIQUID UDC GT SCH (08:45)
[2023-03-03] MEDS: ACIDOPHILUS/BULGARICUS CHEW TAB GT SCH ×2 (08:45→21:09)
[2023-03-03] MEDS: PHENYTOIN 100 MG/4 ML UDC GT SCH ×2 (08:45→21:08)
[2023-03-03] MEDS: FUROSEMIDE 10 MG/ML GT SCH (08:45)
[2023-03-03] MEDS: COD LIVER OIL/ZINC OXIDE OINT 113 GM TUBE TP SCH ×2 (11:00→21:11)
[2023-03-03 19:46] VITALS: TEMP 97.7
[2023-03-03] MEDS: THIAMINE HCL 100 MG TABLET GT SCH (21:10)
[2023-03-03] MEDS: FOLIC ACID 1 MG TABLET GT SCH (21:10)
[2023-03-03] MEDS: CHOLECALCIFEROL 1,000 UNIT TABLET GT SCH (21:11)
[2023-03-04] MEDS: IPRATROPIUM BROMIDE 0.5 MG/2.5 ML NEBU NEB SCH ×6 (02:40→23:20)
[2023-03-04] MEDS: ALBUTEROL SULFATE 2.5 MG/3 ML NEBU NEB SCH ×6 (02:40→23:20)
[2023-03-04] MEDS: MAGNESIUM OXIDE 400 MG TABLET GT SCH (05:31)
[2023-03-04] MEDS: BACLOFEN 20 MG TABLET GT SCH ×3 (05:31→21:53)
[2023-03-04] MEDS: METOCLOPRAMIDE HCL 5 MG TABLET GT SCH ×3 (05:32→21:54)
[2023-03-04] MEDS: MIDODRINE HCL 10 MG TABLET GT SCH ×3 (05:32→21:54)
[2023-03-04] MEDS: OMEPRAZOLE 20 MG CAPSULE.DR GT SCH (05:32)
[2023-03-04] MEDS: HYDROGEN PEROXIDE 3% 118 ML BOTTLE TP SCH ×2 (07:29→21:43)
[2023-03-04 08:00] VITALS: TEMP 98
[2023-03-04] MEDS: levETIRAcetam 500 MG/5 ML LIQUID UDC GT SCH ×2 (08:23→21:53)
[2023-03-04] MEDS: POTASSIUM CHLORIDE 40 MEQ/30 ML LIQUID UDC GT SCH (08:23)
[2023-03-04] MEDS: COD LIVER OIL/ZINC OXIDE OINT 113 GM TUBE TP SCH ×2 (08:23→21:53)
[2023-03-04] MEDS: FERROUS SULFATE 330 MG/7.5 ML UDC- FOR SA ONLY GT SCH ×2 (08:23→21:52)
[2023-03-04] MEDS: REMEDY ESSENTIAL ZINC PASTE 113 GM TP SCH ×2 (08:23→21:53)
[2023-03-04] MEDS: FUROSEMIDE 10 MG/ML GT SCH (08:23)
[2023-03-04] MEDS: PHENYTOIN 100 MG/4 ML UDC GT SCH ×2 (08:23→21:52)
[2023-03-04] MEDS: ACIDOPHILUS/BULGARICUS CHEW TAB GT SCH ×2 (08:23→21:52)
[2023-03-04] MEDS ORDERED: POTASSIUM CHLORIDE 40 MEQ/30 ML LIQUID UDC GT ONE (18:45)
[2023-03-04 20:00] VITALS: TEMP 97.8
[2023-03-04] MEDS: FOLIC ACID 1 MG TABLET GT SCH (21:52)
[2023-03-04] MEDS: MIRALAX 17 GM POWD.PACK GT SCH (21:53)
[2023-03-04] MEDS: CHOLECALCIFEROL 1,000 UNIT TABLET GT SCH (21:53)
[2023-03-04] MEDS: THIAMINE HCL 100 MG TABLET GT SCH (21:53)
[2023-03-05] MEDS: IPRATROPIUM BROMIDE 0.5 MG/2.5 ML NEBU NEB SCH ×6 (04:51→23:07)
[2023-03-05] MEDS: ALBUTEROL SULFATE 2.5 MG/3 ML NEBU NEB SCH ×6 (04:52→23:07)
[2023-03-05] MEDS: BACLOFEN 20 MG TABLET GT SCH ×3 (05:31→21:41)
[2023-03-05] MEDS: MAGNESIUM OXIDE 400 MG TABLET GT SCH (05:40)
[2023-03-05] MEDS: MIDODRINE HCL 10 MG TABLET GT SCH ×3 (05:41→21:41)
[2023-03-05] MEDS: ACETAMINOPHEN 650 MG/20 ML UDC- SA PATIENTS-PAIN ONLY GT PRN (05:41)
[2023-03-05] MEDS: METOCLOPRAMIDE HCL 5 MG TABLET GT SCH ×3 (05:41→21:41)
[2023-03-05] MEDS: OMEPRAZOLE 20 MG CAPSULE.DR GT SCH (05:41)
[2023-03-05] MEDS: HYDROGEN PEROXIDE 3% 118 ML BOTTLE TP SCH ×2 (07:33→19:12)
[2023-03-05 08:00] VITALS: TEMP 98.8
[2023-03-05] MEDS: PHENYTOIN 100 MG/4 ML UDC GT SCH ×2 (08:59→21:38)
[2023-03-05] MEDS: FERROUS SULFATE 330 MG/7.5 ML UDC- FOR SA ONLY GT SCH ×2 (08:59→21:39)
[2023-03-05] MEDS: levETIRAcetam 500 MG/5 ML LIQUID UDC GT SCH ×2 (09:01→21:40)
[2023-03-05] MEDS: COD LIVER OIL/ZINC OXIDE OINT 113 GM TUBE TP SCH ×2 (09:02→21:40)
[2023-03-05] MEDS: ACIDOPHILUS/BULGARICUS CHEW TAB GT SCH ×2 (09:02→21:39)
[2023-03-05] MEDS: REMEDY ESSENTIAL ZINC PASTE 113 GM TP SCH ×2 (09:02→21:41)
[2023-03-05] MEDS: FUROSEMIDE 10 MG/ML GT SCH (09:02)
[2023-03-05] MEDS: POTASSIUM CHLORIDE 40 MEQ/30 ML LIQUID UDC GT SCH (09:02)
[2023-03-05 15:00] VITALS: TEMP 100; O2SAT 99
[2023-03-05 17:00] VITALS: TEMP 99.1; O2SAT 100
[2023-03-05 19:49] VITALS: TEMP 98.2
[2023-03-05] MEDS: THIAMINE HCL 100 MG TABLET GT SCH (21:40)
[2023-03-05] MEDS: CHOLECALCIFEROL 1,000 UNIT TABLET GT SCH (21:40)
[2023-03-05] MEDS: FOLIC ACID 1 MG TABLET GT SCH (21:40)
[2023-03-06] MEDS: ALBUTEROL SULFATE 2.5 MG/3 ML NEBU NEB SCH ×6 (03:30→23:49)
[2023-03-06] MEDS: IPRATROPIUM BROMIDE 0.5 MG/2.5 ML NEBU NEB SCH ×6 (03:30→23:49)
[2023-03-06] MEDS: BACLOFEN 20 MG TABLET GT SCH ×3 (05:08→21:46)
[2023-03-06] MEDS: VITAL AF 1.2 1,000 ML LIQUID GT PRN (05:30)
[2023-03-06] MEDS: MAGNESIUM OXIDE 400 MG TABLET GT SCH (06:23)
[2023-03-06] MEDS: MIDODRINE HCL 10 MG TABLET GT SCH ×3 (06:23→21:48)
[2023-03-06] MEDS: METOCLOPRAMIDE HCL 5 MG TABLET GT SCH ×3 (06:23→21:46)
[2023-03-06] MEDS: OMEPRAZOLE 20 MG CAPSULE.DR GT SCH (06:23)
[2023-03-06 08:01] VITALS: TEMP 98.6
[2023-03-06] MEDS: FUROSEMIDE 10 MG/ML GT SCH (08:09)
[2023-03-06] MEDS: ACIDOPHILUS/BULGARICUS CHEW TAB GT SCH ×2 (08:09→21:45)
[2023-03-06] MEDS: FERROUS SULFATE 330 MG/7.5 ML UDC- FOR SA ONLY GT SCH ×2 (08:09→21:45)
[2023-03-06] MEDS: PHENYTOIN 100 MG/4 ML UDC GT SCH ×2 (08:09→21:51)
[2023-03-06] MEDS: POTASSIUM CHLORIDE 40 MEQ/30 ML LIQUID UDC GT SCH (08:11)
[2023-03-06] MEDS: levETIRAcetam 500 MG/5 ML LIQUID UDC GT SCH ×2 (08:11→21:51)
[2023-03-06] MEDS: COD LIVER OIL/ZINC OXIDE OINT 113 GM TUBE TP SCH ×2 (08:12→21:49)
[2023-03-06] MEDS: REMEDY ESSENTIAL ZINC PASTE 113 GM TP SCH ×2 (08:13→21:49)
[2023-03-06] MEDS: HYDROGEN PEROXIDE 3% 118 ML BOTTLE TP SCH ×2 (08:18→19:21)
[2023-03-06 20:00] VITALS: TEMP 98.5
[2023-03-06] MEDS: FOLIC ACID 1 MG TABLET GT SCH (21:46)
[2023-03-06] MEDS: THIAMINE HCL 100 MG TABLET GT SCH (21:49)
[2023-03-06] MEDS: MIRALAX 17 GM POWD.PACK GT SCH (21:49)
[2023-03-06] MEDS: CHOLECALCIFEROL 1,000 UNIT TABLET GT SCH (21:49)
[2023-03-07] MEDS: ALBUTEROL SULFATE 2.5 MG/3 ML NEBU NEB SCH ×6 (03:48→22:58)
[2023-03-07] MEDS: IPRATROPIUM BROMIDE 0.5 MG/2.5 ML NEBU NEB SCH ×6 (03:48→22:58)
[2023-03-07] MEDS: BACLOFEN 20 MG TABLET GT SCH ×3 (05:01→21:10)
[2023-03-07] MEDS: MAGNESIUM OXIDE 400 MG TABLET GT SCH (05:01)
[2023-03-07] MEDS: MIDODRINE HCL 10 MG TABLET GT SCH ×3 (05:02→21:10)
[2023-03-07] MEDS: OMEPRAZOLE 20 MG CAPSULE.DR GT SCH (05:04)
[2023-03-07] MEDS: METOCLOPRAMIDE HCL 5 MG TABLET GT SCH ×3 (05:04→21:11)
[2023-03-07 08:15] VITALS: TEMP 98.1
[2023-03-07] MEDS: levETIRAcetam 500 MG/5 ML LIQUID UDC GT SCH ×2 (08:46→21:13)
[2023-03-07] MEDS: COD LIVER OIL/ZINC OXIDE OINT 113 GM TUBE TP SCH ×2 (08:46→21:13)
[2023-03-07] MEDS: REMEDY ESSENTIAL ZINC PASTE 113 GM TP SCH ×2 (08:46→21:14)
[2023-03-07] MEDS: PHENYTOIN 100 MG/4 ML UDC GT SCH ×2 (08:46→21:13)
[2023-03-07] MEDS: FUROSEMIDE 10 MG/ML GT SCH (08:46)
[2023-03-07] MEDS: FERROUS SULFATE 330 MG/7.5 ML UDC- FOR SA ONLY GT SCH ×2 (08:46→21:12)
[2023-03-07] MEDS: POTASSIUM CHLORIDE 40 MEQ/30 ML LIQUID UDC GT SCH (08:46)
[2023-03-07] MEDS: ACIDOPHILUS/BULGARICUS CHEW TAB GT SCH ×2 (08:46→21:09)
[2023-03-07] MEDS: HYDROGEN PEROXIDE 3% 118 ML BOTTLE TP SCH ×2 (09:00→19:08)
[2023-03-07] MEDS: VITAL AF 1.2 1,000 ML LIQUID GT PRN (17:58)
[2023-03-07 20:00] VITALS: TEMP 99
[2023-03-07] MEDS: FOLIC ACID 1 MG TABLET GT SCH (21:10)
[2023-03-07] MEDS: THIAMINE HCL 100 MG TABLET GT SCH (21:14)
[2023-03-07] MEDS: CHOLECALCIFEROL 1,000 UNIT TABLET GT SCH (21:14)
[2023-03-08] MEDS: ALBUTEROL SULFATE 2.5 MG/3 ML NEBU NEB SCH ×6 (03:55→23:18)
[2023-03-08] MEDS: IPRATROPIUM BROMIDE 0.5 MG/2.5 ML NEBU NEB SCH ×6 (03:55→23:18)
[2023-03-08] MEDS: BACLOFEN 20 MG TABLET GT SCH ×3 (05:31→21:52)
[2023-03-08] MEDS: MAGNESIUM OXIDE 400 MG TABLET GT SCH (05:32)
[2023-03-08] MEDS: MIDODRINE HCL 10 MG TABLET GT SCH ×3 (05:32→21:53)
[2023-03-08] MEDS: OMEPRAZOLE 20 MG CAPSULE.DR GT SCH (05:32)
[2023-03-08] MEDS: METOCLOPRAMIDE HCL 5 MG TABLET GT SCH ×3 (05:32→21:53)
[2023-03-08] MEDS: HYDROGEN PEROXIDE 3% 118 ML BOTTLE TP SCH ×2 (07:26→19:04)
[2023-03-08 08:00] VITALS: TEMP 97.5
[2023-03-08 08:20] LABS: BASOPHILS # (AUTO) 0.1 K/UL (0.0-0.2); BASOPHILS % (AUTO) 0.6 % (0.0-2.0); EOSINOPHILS # (AUTO) 0.2 K/uL (0.0-0.7); EOSINOPHILS % (AUTO) 1.9 % (0.0-7.0); HEMATOCRIT 26.4 % (31.2-41.9); HEMOGLOBIN 9.1 g/dL (10.9-14.3); LYMPHOCYTES # (AUTO) 2.5 K/uL (0.8-4.8); LYMPHOCYTES % (AUTO) 29.6 % (20.5-51.5); MEAN CORPUSCULAR HEMOGLOBIN 31.3 uug (24.7-32.8); MEAN CORPUSCULAR HGB CONC 35 g/dL (32.3-35.6); MEAN CORPUSCULAR VOLUME 90.6 fL (75.5-95.3); MONOCYTES # (AUTO) 0.8 K/uL (0.1-1.30); MONOCYTES % (AUTO) 9.6 % (0.0-11.0); NEUTROPHILS # (AUTO) 4.9 K/uL (1.8-8.9); NEUTROPHILS % (AUTO) 58.3 % (38.5-71.5); PLATELET COUNT (AUTO) 570 K/uL (179-408); RED BLOOD CELL COUNT(AUTO) 2.92 MIL/uL (3.63-4.92); RED CELL DISTRIBUTION WIDTH 16.9 % (12.3-17.7); WHITE BLOOD COUNT (AUTO) 8.4 K/uL (3.8-11.8)
[2023-03-08] MEDS: POTASSIUM CHLORIDE 40 MEQ/30 ML LIQUID UDC GT SCH (08:37)
[2023-03-08] MEDS: PHENYTOIN 100 MG/4 ML UDC GT SCH ×2 (08:37→20:42)
[2023-03-08] MEDS: REMEDY ESSENTIAL ZINC PASTE 113 GM TP SCH ×2 (08:37→20:41)
[2023-03-08] MEDS: FUROSEMIDE 10 MG/ML GT SCH (08:37)
[2023-03-08] MEDS: ACIDOPHILUS/BULGARICUS CHEW TAB GT SCH ×2 (08:37→20:42)
[2023-03-08] MEDS: FERROUS SULFATE 330 MG/7.5 ML UDC- FOR SA ONLY GT SCH ×2 (08:37→20:43)
[2023-03-08] MEDS: levETIRAcetam 500 MG/5 ML LIQUID UDC GT SCH ×2 (08:37→20:42)
[2023-03-08] MEDS: COD LIVER OIL/ZINC OXIDE OINT 113 GM TUBE TP SCH ×2 (08:37→20:41)
[2023-03-08 08:43] LABS: DIFFERENTIAL COMMENT 1
[2023-03-08 08:50] LABS: CALCIUM 8.6 mg/dL (8.5-10.1); CARBON DIOXIDE 23 mmol/L (21-32); CHLORIDE 104 mmol/L (98-107); CREATININE 0.5 mg/dL (0.6-1.3); GLUCOSE 85 mg/dL (74-106); MAGNESIUM 2.1 mg/dL (1.8-2.4); PHOSPHOROUS 3.7 mg/dL (2.5-4.9); POTASSIUM 3.4 mmol/L (3.5-5.1); SODIUM SERUM 136 mmol/L (136-145); UREA NITROGEN, BLOOD 10 mg/dL (7-18)
[2023-03-08] MEDS ORDERED: POTASSIUM CHLORIDE 40 MEQ/30 ML LIQUID UDC GT ONE (12:00)
[2023-03-08 20:00] VITALS: TEMP 98.5
[2023-03-08] MEDS: FOLIC ACID 1 MG TABLET GT SCH (20:40)
[2023-03-08] MEDS: THIAMINE HCL 100 MG TABLET GT SCH (20:43)
[2023-03-08] MEDS: CHOLECALCIFEROL 1,000 UNIT TABLET GT SCH (20:43)
[2023-03-09] MEDS: ALBUTEROL SULFATE 2.5 MG/3 ML NEBU NEB SCH ×6 (03:24→23:24)
[2023-03-09] MEDS: IPRATROPIUM BROMIDE 0.5 MG/2.5 ML NEBU NEB SCH ×6 (03:24→23:24)
[2023-03-09] MEDS: BACLOFEN 20 MG TABLET GT SCH ×3 (05:09→21:02)
[2023-03-09] MEDS: METOCLOPRAMIDE HCL 5 MG TABLET GT SCH ×3 (05:09→21:02)
[2023-03-09] MEDS: OMEPRAZOLE 20 MG CAPSULE.DR GT SCH (05:09)
[2023-03-09] MEDS: MIDODRINE HCL 10 MG TABLET GT SCH ×3 (05:09→21:02)
[2023-03-09] MEDS: MAGNESIUM OXIDE 400 MG TABLET GT SCH (05:09)
[2023-03-09] MEDS: HYDROGEN PEROXIDE 3% 118 ML BOTTLE TP SCH ×2 (07:06→19:06)
[2023-03-09] MEDS: PHENYTOIN 100 MG/4 ML UDC GT SCH ×2 (08:08→20:45)
[2023-03-09] MEDS: FERROUS SULFATE 330 MG/7.5 ML UDC- FOR SA ONLY GT SCH ×2 (08:08→20:45)
[2023-03-09] MEDS: ACIDOPHILUS/BULGARICUS CHEW TAB GT SCH ×2 (08:09→20:45)
[2023-03-09] MEDS: FUROSEMIDE 10 MG/ML GT SCH (08:09)
[2023-03-09] MEDS: levETIRAcetam 500 MG/5 ML LIQUID UDC GT SCH ×2 (08:09→20:45)
[2023-03-09] MEDS: COD LIVER OIL/ZINC OXIDE OINT 113 GM TUBE TP SCH ×2 (08:09→20:45)
[2023-03-09] MEDS: POTASSIUM CHLORIDE 40 MEQ/30 ML LIQUID UDC GT SCH (08:09)
[2023-03-09] MEDS: REMEDY ESSENTIAL ZINC PASTE 113 GM TP SCH ×2 (08:09→20:45)
[2023-03-09 08:31] LABS: BASOPHILS % (AUTO) 0.6 % (0.0-2.0); EOSINOPHILS # (AUTO) 0.1 K/uL (0.0-0.7); EOSINOPHILS % (AUTO) 1.7 % (0.0-7.0); HEMATOCRIT 29.7 % (31.2-41.9); LYMPHOCYTES # (AUTO) 1.9 K/uL (0.8-4.8); LYMPHOCYTES % (AUTO) 24.1 % (20.5-51.5); MEAN CORPUSCULAR HEMOGLOBIN 31.2 uug (24.7-32.8); MEAN CORPUSCULAR HGB CONC 34 g/dL (32.3-35.6); MEAN CORPUSCULAR VOLUME 92.3 fL (75.5-95.3); MONOCYTES # (AUTO) 0.8 K/uL (0.1-1.30); MONOCYTES % (AUTO) 9.6 % (0.0-11.0); PLATELET COUNT (AUTO) 529 K/uL (179-408); RED BLOOD CELL COUNT(AUTO) 3.22 MIL/uL (3.63-4.92); WHITE BLOOD COUNT (AUTO) 7.9 K/uL (3.8-11.8)
[2023-03-09 08:35] LABS: DIFFERENTIAL COMMENT 1
[2023-03-09 08:38] LABS: CALCIUM 9.1 mg/dL (8.5-10.1); CREATININE 0.6 mg/dL (0.6-1.3); POTASSIUM 3.3 mmol/L (3.5-5.1)
[2023-03-09 09:18] VITALS: TEMP 98.1
[2023-03-09] MEDS ORDERED: POTASSIUM CHLORIDE 20 MEQ POWDER PACKET GT ONE (12:00)
[2023-03-09] MEDS ORDERED: POTASSIUM CHLORIDE 10 MEQ TAB.PRT.SR XX ONE (12:00)
[2023-03-09 20:00] VITALS: TEMP 97.5
[2023-03-09] MEDS: FOLIC ACID 1 MG TABLET GT SCH (20:45)
[2023-03-09] MEDS: CHOLECALCIFEROL 1,000 UNIT TABLET GT SCH (20:45)
[2023-03-09] MEDS: THIAMINE HCL 100 MG TABLET GT SCH (20:45)
[2023-03-09] MEDS: MIRALAX 17 GM POWD.PACK GT SCH (20:45)
[2023-03-09] MEDS: TRIAMCINOLONE ACET 0.1% CREAM 15 GM TUBE TP SCH (21:00)
[2023-03-09] MEDS: CLOTRIMAZOLE 1% CREAM 30 GM TUBE TP SCH (21:00)
[2023-03-10] MEDS: IPRATROPIUM BROMIDE 0.5 MG/2.5 ML NEBU NEB SCH ×6 (03:23→23:26)
[2023-03-10] MEDS: ALBUTEROL SULFATE 2.5 MG/3 ML NEBU NEB SCH ×6 (03:23→23:26)
[2023-03-10] MEDS: BACLOFEN 20 MG TABLET GT SCH ×3 (06:12→21:11)
[2023-03-10] MEDS: MAGNESIUM OXIDE 400 MG TABLET GT SCH (06:12)
[2023-03-10] MEDS: OMEPRAZOLE 20 MG CAPSULE.DR GT SCH (06:13)
[2023-03-10] MEDS: METOCLOPRAMIDE HCL 5 MG TABLET GT SCH ×3 (06:13→21:12)
[2023-03-10] MEDS: MIDODRINE HCL 10 MG TABLET GT SCH ×3 (06:13→21:11)
[2023-03-10] MEDS: HYDROGEN PEROXIDE 3% 118 ML BOTTLE TP SCH ×2 (07:09→19:09)
[2023-03-10] MEDS: PHENYTOIN 100 MG/4 ML UDC GT SCH ×2 (08:55→21:10)
[2023-03-10] MEDS: FUROSEMIDE 10 MG/ML GT SCH (08:56)
[2023-03-10] MEDS: ACIDOPHILUS/BULGARICUS CHEW TAB GT SCH ×2 (08:57→21:10)
[2023-03-10] MEDS: FERROUS SULFATE 330 MG/7.5 ML UDC- FOR SA ONLY GT SCH ×2 (08:58→21:10)
[2023-03-10] MEDS: CLOTRIMAZOLE 1% CREAM 30 GM TUBE TP SCH ×2 (09:00→21:10)
[2023-03-10] MEDS: levETIRAcetam 500 MG/5 ML LIQUID UDC GT SCH ×2 (09:00→21:10)
[2023-03-10] MEDS: TRIAMCINOLONE ACET 0.1% CREAM 15 GM TUBE TP SCH ×2 (09:00→21:10)
[2023-03-10] MEDS: POTASSIUM CHLORIDE 40 MEQ/30 ML LIQUID UDC GT SCH (09:00)
[2023-03-10] MEDS: REMEDY ESSENTIAL ZINC PASTE 113 GM TP SCH ×2 (09:02→21:10)
[2023-03-10 09:05] VITALS: TEMP 97.6
[2023-03-10] MEDS ORDERED: POTASSIUM CHLORIDE 40 MEQ/30 ML LIQUID UDC GT ONE (17:15)
[2023-03-10 20:00] VITALS: TEMP 98.2
[2023-03-10] MEDS: CHOLECALCIFEROL 1,000 UNIT TABLET GT SCH (21:10)
[2023-03-10] MEDS: THIAMINE HCL 100 MG TABLET GT SCH (21:10)
[2023-03-10] MEDS: FOLIC ACID 1 MG TABLET GT SCH (21:10)
[2023-03-11] MEDS: VITAL AF 1.2 1,000 ML LIQUID GT PRN
[2023-03-11] MEDS: ALBUTEROL SULFATE 2.5 MG/3 ML NEBU NEB SCH ×6 (02:47→23:12)
[2023-03-11] MEDS: IPRATROPIUM BROMIDE 0.5 MG/2.5 ML NEBU NEB SCH ×6 (02:47→23:11)
[2023-03-11] MEDS: MAGNESIUM OXIDE 400 MG TABLET GT SCH (06:17)
[2023-03-11] MEDS: BACLOFEN 20 MG TABLET GT SCH ×3 (06:17→21:11)
[2023-03-11] MEDS: MIDODRINE HCL 10 MG TABLET GT SCH ×3 (06:18→21:12)
[2023-03-11] MEDS: OMEPRAZOLE 20 MG CAPSULE.DR GT SCH (06:18)
[2023-03-11] MEDS: METOCLOPRAMIDE HCL 5 MG TABLET GT SCH ×3 (06:18→21:12)
[2023-03-11] MEDS: HYDROGEN PEROXIDE 3% 118 ML BOTTLE TP SCH ×2 (08:50→21:16)
[2023-03-11 09:00] VITALS: TEMP 97.1
[2023-03-11] MEDS: TRIAMCINOLONE ACET 0.1% CREAM 15 GM TUBE TP SCH ×2 (09:00→21:10)
[2023-03-11] MEDS: CLOTRIMAZOLE 1% CREAM 30 GM TUBE TP SCH ×2 (09:00→21:11)
[2023-03-11] MEDS: PHENYTOIN 100 MG/4 ML UDC GT SCH ×2 (09:25→21:08)
[2023-03-11] MEDS: FERROUS SULFATE 330 MG/7.5 ML UDC- FOR SA ONLY GT SCH ×2 (09:27→21:09)
[2023-03-11] MEDS: FUROSEMIDE 10 MG/ML GT SCH (09:29)
[2023-03-11] MEDS: ACIDOPHILUS/BULGARICUS CHEW TAB GT SCH ×2 (09:29→21:09)
[2023-03-11] MEDS: levETIRAcetam 500 MG/5 ML LIQUID UDC GT SCH ×2 (09:31→21:09)
[2023-03-11] MEDS: POTASSIUM CHLORIDE 40 MEQ/30 ML LIQUID UDC GT SCH (09:32)
[2023-03-11] MEDS: REMEDY ESSENTIAL ZINC PASTE 113 GM TP SCH ×2 (09:32→21:11)
[2023-03-11 20:00] VITALS: TEMP 99.2
[2023-03-11] MEDS: FOLIC ACID 1 MG TABLET GT SCH (21:09)
[2023-03-11] MEDS: THIAMINE HCL 100 MG TABLET GT SCH (21:10)
[2023-03-11] MEDS: CHOLECALCIFEROL 1,000 UNIT TABLET GT SCH (21:10)
[2023-03-11] MEDS: MIRALAX 17 GM POWD.PACK GT SCH (21:10)
[2023-03-12] MEDS: ALBUTEROL SULFATE 2.5 MG/3 ML NEBU NEB SCH ×6 (02:30→23:05)
[2023-03-12] MEDS: IPRATROPIUM BROMIDE 0.5 MG/2.5 ML NEBU NEB SCH ×6 (02:30→23:05)
[2023-03-12] MEDS: VITAL AF 1.2 1,000 ML LIQUID GT PRN (04:30)
[2023-03-12] MEDS: MAGNESIUM OXIDE 400 MG TABLET GT SCH (06:00)
[2023-03-12] MEDS: MIDODRINE HCL 10 MG TABLET GT SCH ×3 (06:00→21:10)
[2023-03-12] MEDS: BACLOFEN 20 MG TABLET GT SCH ×3 (06:00→21:09)
[2023-03-12] MEDS: METOCLOPRAMIDE HCL 5 MG TABLET GT SCH ×3 (06:00→21:10)
[2023-03-12] MEDS: OMEPRAZOLE 20 MG CAPSULE.DR GT SCH (06:00)
[2023-03-12 07:46] VITALS: TEMP 97.6
[2023-03-12] MEDS: HYDROGEN PEROXIDE 3% 118 ML BOTTLE TP SCH ×2 (08:12→19:16)
[2023-03-12] MEDS: CLOTRIMAZOLE 1% CREAM 30 GM TUBE TP SCH ×2 (09:07→21:09)
[2023-03-12] MEDS: REMEDY ESSENTIAL ZINC PASTE 113 GM TP SCH ×2 (09:07→21:09)
[2023-03-12] MEDS: levETIRAcetam 500 MG/5 ML LIQUID UDC GT SCH ×2 (09:07→21:09)
[2023-03-12] MEDS: POTASSIUM CHLORIDE 40 MEQ/30 ML LIQUID UDC GT SCH (09:07)
[2023-03-12] MEDS: ACIDOPHILUS/BULGARICUS CHEW TAB GT SCH ×2 (09:07→21:09)
[2023-03-12] MEDS: FERROUS SULFATE 330 MG/7.5 ML UDC- FOR SA ONLY GT SCH ×2 (09:07→21:09)
[2023-03-12] MEDS: TRIAMCINOLONE ACET 0.1% CREAM 15 GM TUBE TP SCH ×2 (09:07→21:09)
[2023-03-12] MEDS: PHENYTOIN 100 MG/4 ML UDC GT SCH ×2 (09:07→21:09)
[2023-03-12] MEDS: FUROSEMIDE 10 MG/ML GT SCH (09:07)
[2023-03-12 21:09] VITALS: TEMP 98.4
[2023-03-12] MEDS: THIAMINE HCL 100 MG TABLET GT SCH (21:09)
[2023-03-12] MEDS: FOLIC ACID 1 MG TABLET GT SCH (21:09)
[2023-03-12] MEDS: CHOLECALCIFEROL 1,000 UNIT TABLET GT SCH (21:09)
[2023-03-13] MEDS: ALBUTEROL SULFATE 2.5 MG/3 ML NEBU NEB SCH ×6 (03:33→23:20)
[2023-03-13] MEDS: IPRATROPIUM BROMIDE 0.5 MG/2.5 ML NEBU NEB SCH ×6 (03:33→23:20)
[2023-03-13] MEDS: BACLOFEN 20 MG TABLET GT SCH ×3 (05:26→21:01)
[2023-03-13] MEDS: MAGNESIUM OXIDE 400 MG TABLET GT SCH (05:26)
[2023-03-13] MEDS: METOCLOPRAMIDE HCL 5 MG TABLET GT SCH ×3 (05:27→21:02)
[2023-03-13] MEDS: OMEPRAZOLE 20 MG CAPSULE.DR GT SCH (05:27)
[2023-03-13] MEDS: MIDODRINE HCL 10 MG TABLET GT SCH ×3 (05:27→21:01)
[2023-03-13 07:36] VITALS: TEMP 97.6
[2023-03-13] MEDS: HYDROGEN PEROXIDE 3% 118 ML BOTTLE TP SCH ×2 (08:34→19:28)
[2023-03-13] MEDS: PHENYTOIN 100 MG/4 ML UDC GT SCH ×2 (08:34→20:56)
[2023-03-13] MEDS: FERROUS SULFATE 330 MG/7.5 ML UDC- FOR SA ONLY GT SCH ×2 (08:34→20:58)
[2023-03-13] MEDS: ACIDOPHILUS/BULGARICUS CHEW TAB GT SCH ×2 (08:35→20:58)
[2023-03-13] MEDS: FUROSEMIDE 10 MG/ML GT SCH (08:35)
[2023-03-13] MEDS: levETIRAcetam 500 MG/5 ML LIQUID UDC GT SCH ×2 (08:35→20:59)
[2023-03-13] MEDS: POTASSIUM CHLORIDE 40 MEQ/30 ML LIQUID UDC GT SCH (08:35)
[2023-03-13] MEDS: REMEDY ESSENTIAL ZINC PASTE 113 GM TP SCH ×2 (08:36→21:01)
[2023-03-13] MEDS: TRIAMCINOLONE ACET 0.1% CREAM 15 GM TUBE TP SCH ×2 (08:36→21:00)
[2023-03-13] MEDS: CLOTRIMAZOLE 1% CREAM 30 GM TUBE TP SCH ×2 (08:36→21:00)
[2023-03-13] MEDS: VITAL AF 1.2 1,000 ML LIQUID GT PRN (13:42)
[2023-03-13 20:00] VITALS: TEMP 97.5
[2023-03-13] MEDS: MIRALAX 17 GM POWD.PACK GT SCH (20:59)
[2023-03-13] MEDS: FOLIC ACID 1 MG TABLET GT SCH (20:59)
[2023-03-13] MEDS: THIAMINE HCL 100 MG TABLET GT SCH (21:00)
[2023-03-13] MEDS: CHOLECALCIFEROL 1,000 UNIT TABLET GT SCH (21:00)
[2023-03-14] MEDS: IPRATROPIUM BROMIDE 0.5 MG/2.5 ML NEBU NEB SCH ×6 (03:30→23:41)
[2023-03-14] MEDS: ALBUTEROL SULFATE 2.5 MG/3 ML NEBU NEB SCH ×6 (03:30→23:41)
[2023-03-14] MEDS: BACLOFEN 20 MG TABLET GT SCH ×3 (06:12→22:10)
[2023-03-14] MEDS: MIDODRINE HCL 10 MG TABLET GT SCH ×3 (06:12→22:00)
[2023-03-14] MEDS: MAGNESIUM OXIDE 400 MG TABLET GT SCH (06:12)
[2023-03-14] MEDS: OMEPRAZOLE 20 MG CAPSULE.DR GT SCH (06:12)
[2023-03-14] MEDS: METOCLOPRAMIDE HCL 5 MG TABLET GT SCH ×3 (06:13→22:09)
[2023-03-14] MEDS: FERROUS SULFATE 330 MG/7.5 ML UDC- FOR SA ONLY GT SCH ×2 (06:13→21:00)
[2023-03-14] MEDS: PHENYTOIN 100 MG/4 ML UDC GT SCH ×2 (06:13→21:00)
[2023-03-14] MEDS: HYDROGEN PEROXIDE 3% 118 ML BOTTLE TP SCH ×2 (07:20→19:40)
[2023-03-14 07:37] VITALS: TEMP 98
[2023-03-14] MEDS: ACIDOPHILUS/BULGARICUS CHEW TAB GT SCH ×2 (08:19→21:00)
[2023-03-14] MEDS: FUROSEMIDE 10 MG/ML GT SCH (08:21)
[2023-03-14] MEDS: levETIRAcetam 500 MG/5 ML LIQUID UDC GT SCH ×2 (08:21→21:00)
[2023-03-14] MEDS: POTASSIUM CHLORIDE 40 MEQ/30 ML LIQUID UDC GT SCH (08:21)
[2023-03-14] MEDS: COD LIVER OIL/ZINC OXIDE OINT 113 GM TUBE TP SCH ×2 (08:22→21:00)
[2023-03-14] MEDS: TRIAMCINOLONE ACET 0.1% CREAM 15 GM TUBE TP SCH ×2 (08:22→21:00)
[2023-03-14] MEDS: REMEDY ESSENTIAL ZINC PASTE 113 GM TP SCH ×2 (08:22→21:00)
[2023-03-14] MEDS: CLOTRIMAZOLE 1% CREAM 30 GM TUBE TP SCH ×2 (08:22→21:00)
[2023-03-14] MEDS: VITAL AF 1.2 1,000 ML LIQUID GT PRN (19:08)
[2023-03-14 20:00] VITALS: TEMP 98
[2023-03-14] MEDS: CHOLECALCIFEROL 1,000 UNIT TABLET GT SCH (21:00)
[2023-03-14] MEDS: FOLIC ACID 1 MG TABLET GT SCH (21:00)
[2023-03-14] MEDS: THIAMINE HCL 100 MG TABLET GT SCH (21:00)
[2023-03-15] MEDS: IPRATROPIUM BROMIDE 0.5 MG/2.5 ML NEBU NEB SCH ×6 (03:51→23:16)
[2023-03-15] MEDS: ALBUTEROL SULFATE 2.5 MG/3 ML NEBU NEB SCH ×6 (03:51→23:16)
[2023-03-15] MEDS: MAGNESIUM OXIDE 400 MG TABLET GT SCH (05:00)
[2023-03-15] MEDS: BACLOFEN 20 MG TABLET GT SCH ×3 (05:00→21:08)
[2023-03-15] MEDS: OMEPRAZOLE 20 MG CAPSULE.DR GT SCH (05:01)
[2023-03-15] MEDS: MIDODRINE HCL 10 MG TABLET GT SCH ×3 (05:01→21:08)
[2023-03-15] MEDS: METOCLOPRAMIDE HCL 5 MG TABLET GT SCH ×3 (05:01→21:08)
[2023-03-15 08:03] VITALS: TEMP 97.5
[2023-03-15] MEDS: HYDROGEN PEROXIDE 3% 118 ML BOTTLE TP SCH ×2 (08:04→19:09)
[2023-03-15] MEDS: PHENYTOIN 100 MG/4 ML UDC GT SCH ×2 (09:09→20:26)
[2023-03-15] MEDS: FERROUS SULFATE 330 MG/7.5 ML UDC- FOR SA ONLY GT SCH ×2 (09:11→20:26)
[2023-03-15] MEDS: ACIDOPHILUS/BULGARICUS CHEW TAB GT SCH ×2 (09:11→20:26)
[2023-03-15] MEDS: FUROSEMIDE 10 MG/ML GT SCH (09:11)
[2023-03-15] MEDS: COD LIVER OIL/ZINC OXIDE OINT 113 GM TUBE TP SCH ×2 (09:12→20:29)
[2023-03-15] MEDS: POTASSIUM CHLORIDE 40 MEQ/30 ML LIQUID UDC GT SCH (09:12)
[2023-03-15] MEDS: CLOTRIMAZOLE 1% CREAM 30 GM TUBE TP SCH ×2 (09:12→20:29)
[2023-03-15] MEDS: levETIRAcetam 500 MG/5 ML LIQUID UDC GT SCH ×2 (09:12→20:27)
[2023-03-15] MEDS: TRIAMCINOLONE ACET 0.1% CREAM 15 GM TUBE TP SCH ×2 (09:12→20:29)
[2023-03-15] MEDS: REMEDY ESSENTIAL ZINC PASTE 113 GM TP SCH ×2 (09:13→20:29)
[2023-03-15 20:08] VITALS: TEMP 98
[2023-03-15] MEDS: FOLIC ACID 1 MG TABLET GT SCH (20:26)
[2023-03-15] MEDS: THIAMINE HCL 100 MG TABLET GT SCH (20:28)
[2023-03-15] MEDS: CHOLECALCIFEROL 1,000 UNIT TABLET GT SCH (20:28)
[2023-03-16] MEDS: ALBUTEROL SULFATE 2.5 MG/3 ML NEBU NEB SCH ×5 (03:19→19:05)
[2023-03-16] MEDS: IPRATROPIUM BROMIDE 0.5 MG/2.5 ML NEBU NEB SCH ×5 (03:19→19:05)
[2023-03-16] MEDS: METOCLOPRAMIDE HCL 5 MG TABLET GT SCH ×3 (05:14→21:37)
[2023-03-16] MEDS: MAGNESIUM OXIDE 400 MG TABLET GT SCH (05:14)
[2023-03-16] MEDS: MIDODRINE HCL 10 MG TABLET GT SCH ×3 (05:14→21:37)
[2023-03-16] MEDS: BACLOFEN 20 MG TABLET GT SCH ×3 (05:14→21:36)
[2023-03-16] MEDS: OMEPRAZOLE 20 MG CAPSULE.DR GT SCH (05:14)
[2023-03-16] MEDS: HYDROGEN PEROXIDE 3% 118 ML BOTTLE TP SCH ×2 (07:09→19:05)
[2023-03-16 08:00] VITALS: BP 104/54; TEMP 97.9; O2SAT 100
[2023-03-16] MEDS: PHENYTOIN 100 MG/4 ML UDC GT SCH ×2 (09:07→20:39)
[2023-03-16] MEDS: FERROUS SULFATE 330 MG/7.5 ML UDC- FOR SA ONLY GT SCH ×2 (09:08→20:39)
[2023-03-16] MEDS: ACIDOPHILUS/BULGARICUS CHEW TAB GT SCH ×2 (09:08→20:39)
[2023-03-16] MEDS: FUROSEMIDE 10 MG/ML GT SCH (09:10)
[2023-03-16] MEDS: levETIRAcetam 500 MG/5 ML LIQUID UDC GT SCH ×2 (09:10→20:39)
[2023-03-16] MEDS: COD LIVER OIL/ZINC OXIDE OINT 113 GM TUBE TP SCH ×2 (09:12→20:39)
[2023-03-16] MEDS: POTASSIUM CHLORIDE 40 MEQ/30 ML LIQUID UDC GT SCH (09:12)
[2023-03-16] MEDS: TRIAMCINOLONE ACET 0.1% CREAM 15 GM TUBE TP SCH (09:13)
[2023-03-16] MEDS: CLOTRIMAZOLE 1% CREAM 30 GM TUBE TP SCH (09:13)
[2023-03-16] MEDS: REMEDY ESSENTIAL ZINC PASTE 113 GM TP SCH ×2 (09:14→20:40)
[2023-03-16 19:57] VITALS: TEMP 97.7
[2023-03-16] MEDS: THIAMINE HCL 100 MG TABLET GT SCH (20:39)
[2023-03-16] MEDS: CHOLECALCIFEROL 1,000 UNIT TABLET GT SCH (20:39)
[2023-03-16] MEDS: MIRALAX 17 GM POWD.PACK GT SCH (20:39)
[2023-03-16] MEDS: FOLIC ACID 1 MG TABLET GT SCH (20:39)
[2023-03-17] MEDS: ALBUTEROL SULFATE 2.5 MG/3 ML NEBU NEB SCH ×7 (00:11→23:09)
[2023-03-17] MEDS: IPRATROPIUM BROMIDE 0.5 MG/2.5 ML NEBU NEB SCH ×7 (00:11→23:09)
[2023-03-17] MEDS: METOCLOPRAMIDE HCL 5 MG TABLET GT SCH ×3 (05:17→21:35)
[2023-03-17] MEDS: OMEPRAZOLE 20 MG CAPSULE.DR GT SCH (05:17)
[2023-03-17] MEDS: BACLOFEN 20 MG TABLET GT SCH ×3 (05:17→21:34)
[2023-03-17] MEDS: MAGNESIUM OXIDE 400 MG TABLET GT SCH (05:17)
[2023-03-17] MEDS: MIDODRINE HCL 10 MG TABLET GT SCH ×3 (05:17→21:35)
[2023-03-17] MEDS: HYDROGEN PEROXIDE 3% 118 ML BOTTLE TP SCH ×2 (08:13→19:11)
[2023-03-17] MEDS: PHENYTOIN 100 MG/4 ML UDC GT SCH ×2 (09:00→21:34)
[2023-03-17] MEDS: NEOMY/BACITRA/POLYMYXIN B OINT UD PACKET TP SCH (09:00)
[2023-03-17] MEDS: COD LIVER OIL/ZINC OXIDE OINT 113 GM TUBE TP SCH ×2 (09:00→21:34)
[2023-03-17] MEDS: ACIDOPHILUS/BULGARICUS CHEW TAB GT SCH ×2 (09:00→21:34)
[2023-03-17] MEDS: FERROUS SULFATE 330 MG/7.5 ML UDC- FOR SA ONLY GT SCH ×2 (09:00→21:34)
[2023-03-17] MEDS: FUROSEMIDE 10 MG/ML GT SCH (09:00)
[2023-03-17] MEDS: levETIRAcetam 500 MG/5 ML LIQUID UDC GT SCH ×2 (09:00→21:34)
[2023-03-17] MEDS: REMEDY ESSENTIAL ZINC PASTE 113 GM TP SCH ×2 (09:00→21:34)
[2023-03-17] MEDS: POTASSIUM CHLORIDE 40 MEQ/30 ML LIQUID UDC GT SCH (09:00)
[2023-03-17 09:20] VITALS: TEMP 97
[2023-03-17 19:33] VITALS: TEMP 97.5
[2023-03-17] MEDS: CHOLECALCIFEROL 1,000 UNIT TABLET GT SCH (21:34)
[2023-03-17] MEDS: FOLIC ACID 1 MG TABLET GT SCH (21:34)
[2023-03-17] MEDS: THIAMINE HCL 100 MG TABLET GT SCH (21:34)
[2023-03-18] MEDS: ALBUTEROL SULFATE 2.5 MG/3 ML NEBU NEB SCH ×6 (02:57→23:16)
[2023-03-18] MEDS: IPRATROPIUM BROMIDE 0.5 MG/2.5 ML NEBU NEB SCH ×6 (02:57→23:16)
[2023-03-18] MEDS: MAGNESIUM OXIDE 400 MG TABLET GT SCH (06:41)
[2023-03-18] MEDS: BACLOFEN 20 MG TABLET GT SCH ×3 (06:41→21:27)
[2023-03-18] MEDS: METOCLOPRAMIDE HCL 5 MG TABLET GT SCH ×3 (06:42→21:27)
[2023-03-18] MEDS: OMEPRAZOLE 20 MG CAPSULE.DR GT SCH (06:42)
[2023-03-18] MEDS: MIDODRINE HCL 10 MG TABLET GT SCH ×3 (06:42→21:24)
[2023-03-18] MEDS: HYDROGEN PEROXIDE 3% 118 ML BOTTLE TP SCH ×2 (07:20→19:17)
[2023-03-18 08:00] VITALS: TEMP 97.2
[2023-03-18] MEDS: FUROSEMIDE 10 MG/ML GT SCH (08:50)
[2023-03-18] MEDS: levETIRAcetam 500 MG/5 ML LIQUID UDC GT SCH ×2 (08:50→21:32)
[2023-03-18] MEDS: PHENYTOIN 100 MG/4 ML UDC GT SCH ×2 (08:50→21:26)
[2023-03-18] MEDS: POTASSIUM CHLORIDE 40 MEQ/30 ML LIQUID UDC GT SCH (08:50)
[2023-03-18] MEDS: FERROUS SULFATE 330 MG/7.5 ML UDC- FOR SA ONLY GT SCH ×2 (08:50→21:30)
[2023-03-18] MEDS: ACIDOPHILUS/BULGARICUS CHEW TAB GT SCH ×2 (08:50→21:26)
[2023-03-18] MEDS: NEOMY/BACITRA/POLYMYXIN B OINT UD PACKET TP SCH (09:00)
[2023-03-18] MEDS: COD LIVER OIL/ZINC OXIDE OINT 113 GM TUBE TP SCH ×2 (09:00→21:28)
[2023-03-18] MEDS: REMEDY ESSENTIAL ZINC PASTE 113 GM TP SCH ×2 (09:07→21:27)
[2023-03-18] MEDS: VITAL AF 1.2 1,000 ML LIQUID GT PRN (12:02)
[2023-03-18 20:00] VITALS: TEMP 94.4
[2023-03-18] MEDS: FOLIC ACID 1 MG TABLET GT SCH (21:26)
[2023-03-18] MEDS: MIRALAX 17 GM POWD.PACK GT SCH (21:28)
[2023-03-18] MEDS: THIAMINE HCL 100 MG TABLET GT SCH (21:28)
[2023-03-18] MEDS: CHOLECALCIFEROL 1,000 UNIT TABLET GT SCH (21:35)
[2023-03-19] MEDS: IPRATROPIUM BROMIDE 0.5 MG/2.5 ML NEBU NEB SCH ×6 (02:46→23:14)
[2023-03-19] MEDS: ALBUTEROL SULFATE 2.5 MG/3 ML NEBU NEB SCH ×6 (02:46→23:15)
[2023-03-19 05:00] VITALS: TEMP 97.7
[2023-03-19] MEDS: OMEPRAZOLE 20 MG CAPSULE.DR GT SCH (05:00)
[2023-03-19] MEDS: MAGNESIUM OXIDE 400 MG TABLET GT SCH (05:00)
[2023-03-19] MEDS: BACLOFEN 20 MG TABLET GT SCH ×3 (05:00→21:41)
[2023-03-19] MEDS: METOCLOPRAMIDE HCL 5 MG TABLET GT SCH ×3 (05:00→21:42)
[2023-03-19] MEDS: MIDODRINE HCL 10 MG TABLET GT SCH ×3 (05:01→21:42)
[2023-03-19] MEDS: HYDROGEN PEROXIDE 3% 118 ML BOTTLE TP SCH ×2 (07:55→19:27)
[2023-03-19 08:00] VITALS: TEMP 98.7
[2023-03-19] MEDS: FERROUS SULFATE 330 MG/7.5 ML UDC- FOR SA ONLY GT SCH ×2 (09:15→20:42)
[2023-03-19] MEDS: PHENYTOIN 100 MG/4 ML UDC GT SCH ×2 (09:15→20:42)
[2023-03-19] MEDS: FUROSEMIDE 10 MG/ML GT SCH (09:16)
[2023-03-19] MEDS: levETIRAcetam 500 MG/5 ML LIQUID UDC GT SCH ×2 (09:20→20:42)
[2023-03-19] MEDS: ACIDOPHILUS/BULGARICUS CHEW TAB GT SCH ×2 (09:20→20:42)
[2023-03-19] MEDS: POTASSIUM CHLORIDE 40 MEQ/30 ML LIQUID UDC GT SCH (09:21)
[2023-03-19] MEDS: REMEDY ESSENTIAL ZINC PASTE 113 GM TP SCH ×2 (09:22→20:43)
[2023-03-19] MEDS: COD LIVER OIL/ZINC OXIDE OINT 113 GM TUBE TP SCH ×2 (09:22→20:43)
[2023-03-19] MEDS: NEOMY/BACITRA/POLYMYXIN B OINT UD PACKET TP SCH (09:22)
[2023-03-19 20:00] VITALS: TEMP 98
[2023-03-19] MEDS: THIAMINE HCL 100 MG TABLET GT SCH (20:42)
[2023-03-19] MEDS: FOLIC ACID 1 MG TABLET GT SCH (20:42)
[2023-03-19] MEDS: CHOLECALCIFEROL 1,000 UNIT TABLET GT SCH (20:42)
[2023-03-20] MEDS: VITAL AF 1.2 1,000 ML LIQUID GT PRN (03:05)
[2023-03-20] MEDS: IPRATROPIUM BROMIDE 0.5 MG/2.5 ML NEBU NEB SCH ×6 (03:27→23:01)
[2023-03-20] MEDS: ALBUTEROL SULFATE 2.5 MG/3 ML NEBU NEB SCH ×6 (03:27→23:01)
[2023-03-20] MEDS: MAGNESIUM OXIDE 400 MG TABLET GT SCH (05:34)
[2023-03-20] MEDS: BACLOFEN 20 MG TABLET GT SCH ×3 (05:34→22:07)
[2023-03-20] MEDS: METOCLOPRAMIDE HCL 5 MG TABLET GT SCH ×3 (05:35→22:07)
[2023-03-20] MEDS: OMEPRAZOLE 20 MG CAPSULE.DR GT SCH (05:35)
[2023-03-20] MEDS: MIDODRINE HCL 10 MG TABLET GT SCH ×3 (05:35→22:07)
[2023-03-20] MEDS: HYDROGEN PEROXIDE 3% 118 ML BOTTLE TP SCH ×2 (07:43→21:25)
[2023-03-20] MEDS: PHENYTOIN 100 MG/4 ML UDC GT SCH ×2 (09:54→20:43)
[2023-03-20] MEDS: NEOMY/BACITRA/POLYMYXIN B OINT UD PACKET TP SCH (09:54)
[2023-03-20] MEDS: REMEDY ESSENTIAL ZINC PASTE 113 GM TP SCH ×2 (09:54→20:43)
[2023-03-20] MEDS: FERROUS SULFATE 330 MG/7.5 ML UDC- FOR SA ONLY GT SCH ×2 (09:54→20:43)
[2023-03-20] MEDS: POTASSIUM CHLORIDE 40 MEQ/30 ML LIQUID UDC GT SCH (09:54)
[2023-03-20] MEDS: FUROSEMIDE 10 MG/ML GT SCH (09:54)
[2023-03-20] MEDS: COD LIVER OIL/ZINC OXIDE OINT 113 GM TUBE TP SCH ×2 (09:54→20:43)
[2023-03-20] MEDS: levETIRAcetam 500 MG/5 ML LIQUID UDC GT SCH ×2 (09:54→20:43)
[2023-03-20] MEDS: ACIDOPHILUS/BULGARICUS CHEW TAB GT SCH ×2 (09:54→20:43)
[2023-03-20 11:22] VITALS: TEMP 97.2
[2023-03-20 20:00] VITALS: TEMP 94.2
[2023-03-20] MEDS: MIRALAX 17 GM POWD.PACK GT SCH (20:43)
[2023-03-20] MEDS: THIAMINE HCL 100 MG TABLET GT SCH (20:43)
[2023-03-20] MEDS: FOLIC ACID 1 MG TABLET GT SCH (20:43)
[2023-03-20] MEDS: CHOLECALCIFEROL 1,000 UNIT TABLET GT SCH (20:43)
[2023-03-21] MEDS: IPRATROPIUM BROMIDE 0.5 MG/2.5 ML NEBU NEB SCH ×6 (03:06→23:21)
[2023-03-21] MEDS: ALBUTEROL SULFATE 2.5 MG/3 ML NEBU NEB SCH ×6 (03:06→23:22)
[2023-03-21] MEDS: BACLOFEN 20 MG TABLET GT SCH ×3 (06:16→21:05)
[2023-03-21] MEDS: OMEPRAZOLE 20 MG CAPSULE.DR GT SCH (06:16)
[2023-03-21] MEDS: METOCLOPRAMIDE HCL 5 MG TABLET GT SCH ×3 (06:16→21:05)
[2023-03-21] MEDS: MIDODRINE HCL 10 MG TABLET GT SCH ×3 (06:16→21:05)
[2023-03-21] MEDS: MAGNESIUM OXIDE 400 MG TABLET GT SCH (06:16)
[2023-03-21 07:34] VITALS: TEMP 97.4
[2023-03-21] MEDS: HYDROGEN PEROXIDE 3% 118 ML BOTTLE TP SCH ×2 (07:37→19:18)
[2023-03-21] MEDS: ACIDOPHILUS/BULGARICUS CHEW TAB GT SCH ×2 (09:52→21:04)
[2023-03-21] MEDS: FUROSEMIDE 10 MG/ML GT SCH (09:52)
[2023-03-21] MEDS: FERROUS SULFATE 330 MG/7.5 ML UDC- FOR SA ONLY GT SCH ×2 (09:52→21:04)
[2023-03-21] MEDS: PHENYTOIN 100 MG/4 ML UDC GT SCH ×2 (09:52→21:04)
[2023-03-21] MEDS: levETIRAcetam 500 MG/5 ML LIQUID UDC GT SCH ×2 (09:52→21:05)
[2023-03-21] MEDS: POTASSIUM CHLORIDE 40 MEQ/30 ML LIQUID UDC GT SCH (09:53)
[2023-03-21] MEDS: NEOMY/BACITRA/POLYMYXIN B OINT UD PACKET TP SCH (09:53)
[2023-03-21] MEDS: REMEDY ESSENTIAL ZINC PASTE 113 GM TP SCH ×2 (09:53→21:05)
[2023-03-21] MEDS: COD LIVER OIL/ZINC OXIDE OINT 113 GM TUBE TP SCH ×2 (09:53→21:05)
[2023-03-21] MEDS: VITAL AF 1.2 1,000 ML LIQUID GT PRN (09:54)
[2023-03-21 20:00] VITALS: TEMP 97.5
[2023-03-21] MEDS: FOLIC ACID 1 MG TABLET GT SCH (21:04)
[2023-03-21] MEDS: THIAMINE HCL 100 MG TABLET GT SCH (21:05)
[2023-03-21] MEDS: CHOLECALCIFEROL 1,000 UNIT TABLET GT SCH (21:05)
[2023-03-22] MEDS: ALBUTEROL SULFATE 2.5 MG/3 ML NEBU NEB SCH ×6 (02:59→23:02)
[2023-03-22] MEDS: IPRATROPIUM BROMIDE 0.5 MG/2.5 ML NEBU NEB SCH ×6 (02:59→23:02)
[2023-03-22] MEDS: METOCLOPRAMIDE HCL 5 MG TABLET GT SCH ×3 (05:16→21:25)
[2023-03-22] MEDS: BACLOFEN 20 MG TABLET GT SCH ×3 (05:16→21:24)
[2023-03-22] MEDS: OMEPRAZOLE 20 MG CAPSULE.DR GT SCH (05:16)
[2023-03-22] MEDS: MAGNESIUM OXIDE 400 MG TABLET GT SCH (05:16)
[2023-03-22] MEDS: MIDODRINE HCL 10 MG TABLET GT SCH ×3 (05:16→21:25)
[2023-03-22 07:47] VITALS: TEMP 97.6
[2023-03-22] MEDS: HYDROGEN PEROXIDE 3% 118 ML BOTTLE TP SCH ×2 (09:22→19:10)
[2023-03-22] MEDS: NEOMY/BACITRA/POLYMYXIN B OINT UD PACKET TP SCH (09:48)
[2023-03-22] MEDS: COD LIVER OIL/ZINC OXIDE OINT 113 GM TUBE TP SCH ×2 (09:48→21:24)
[2023-03-22] MEDS: FERROUS SULFATE 330 MG/7.5 ML UDC- FOR SA ONLY GT SCH ×2 (09:48→21:24)
[2023-03-22] MEDS: POTASSIUM CHLORIDE 40 MEQ/30 ML LIQUID UDC GT SCH (09:48)
[2023-03-22] MEDS: FUROSEMIDE 10 MG/ML GT SCH (09:48)
[2023-03-22] MEDS: ACIDOPHILUS/BULGARICUS CHEW TAB GT SCH ×2 (09:48→21:24)
[2023-03-22] MEDS: levETIRAcetam 500 MG/5 ML LIQUID UDC GT SCH ×2 (09:48→21:24)
[2023-03-22] MEDS: REMEDY ESSENTIAL ZINC PASTE 113 GM TP SCH ×2 (09:48→21:24)
[2023-03-22] MEDS: PHENYTOIN 100 MG/4 ML UDC GT SCH ×2 (09:48→21:24)
[2023-03-22] MEDS: VITAL AF 1.2 1,000 ML LIQUID GT PRN (18:06)
[2023-03-22 20:00] VITALS: TEMP 97.3
[2023-03-22] MEDS: FOLIC ACID 1 MG TABLET GT SCH (21:24)
[2023-03-22] MEDS: CHOLECALCIFEROL 1,000 UNIT TABLET GT SCH (21:24)
[2023-03-22] MEDS: THIAMINE HCL 100 MG TABLET GT SCH (21:24)
[2023-03-23] MEDS: ALBUTEROL SULFATE 2.5 MG/3 ML NEBU NEB SCH ×5 (02:55→18:49)
[2023-03-23] MEDS: IPRATROPIUM BROMIDE 0.5 MG/2.5 ML NEBU NEB SCH ×5 (02:55→18:49)
[2023-03-23] MEDS: MIDODRINE HCL 10 MG TABLET GT SCH ×3 (05:33→21:39)
[2023-03-23] MEDS: OMEPRAZOLE 20 MG CAPSULE.DR GT SCH (05:33)
[2023-03-23] MEDS: MAGNESIUM OXIDE 400 MG TABLET GT SCH (05:33)
[2023-03-23] MEDS: METOCLOPRAMIDE HCL 5 MG TABLET GT SCH ×3 (05:33→21:39)
[2023-03-23] MEDS: BACLOFEN 20 MG TABLET GT SCH ×3 (05:33→21:39)
[2023-03-23 07:10] LABS: BASOPHILS % (AUTO) 0.4 % (0.0-2.0); EOSINOPHILS # (AUTO) 0.1 K/uL (0.0-0.7); EOSINOPHILS % (AUTO) 1.7 % (0.0-7.0); HEMATOCRIT 27.6 % (31.2-41.9); HEMOGLOBIN 9.4 g/dL (10.9-14.3); LYMPHOCYTES # (AUTO) 1.4 K/uL (0.8-4.8); LYMPHOCYTES % (AUTO) 26.3 % (20.5-51.5); MEAN CORPUSCULAR HGB CONC 34 g/dL (32.3-35.6); MONOCYTES # (AUTO) 0.5 K/uL (0.1-1.30); MONOCYTES % (AUTO) 9.2 % (0.0-11.0); NEUTROPHILS # (AUTO) 3.3 K/uL (1.8-8.9); NEUTROPHILS % (AUTO) 62.4 % (38.5-71.5); PLATELET COUNT (AUTO) 235 K/uL (179-408); RED BLOOD CELL COUNT(AUTO) 3.14 MIL/uL (3.63-4.92); RED CELL DISTRIBUTION WIDTH 17.5 % (12.3-17.7); WHITE BLOOD COUNT (AUTO) 5.3 K/uL (3.8-11.8)
[2023-03-23 07:17] LABS: CALCIUM 8.6 mg/dL (8.5-10.1); CARBON DIOXIDE 23 mmol/L (21-32); CHLORIDE 105 mmol/L (98-107); CREATININE 0.5 mg/dL (0.6-1.3); GLUCOSE 92 mg/dL (74-106); MAGNESIUM 2.1 mg/dL (1.8-2.4); PHOSPHOROUS 3.9 mg/dL (2.5-4.9); SODIUM SERUM 139 mmol/L (136-145); UREA NITROGEN, BLOOD 11 mg/dL (7-18)
[2023-03-23 07:26] LABS: DIFFERENTIAL COMMENT 1
[2023-03-23 07:34] VITALS: TEMP 97.4
[2023-03-23] MEDS: HYDROGEN PEROXIDE 3% 118 ML BOTTLE TP SCH ×2 (07:46→18:53)
[2023-03-23] MEDS: PHENYTOIN 100 MG/4 ML UDC GT SCH ×2 (08:34→20:49)
[2023-03-23] MEDS: ACIDOPHILUS/BULGARICUS CHEW TAB GT SCH ×2 (08:36→20:49)
[2023-03-23] MEDS: FERROUS SULFATE 330 MG/7.5 ML UDC- FOR SA ONLY GT SCH ×2 (08:36→20:49)
[2023-03-23] MEDS: FUROSEMIDE 10 MG/ML GT SCH (08:37)
[2023-03-23] MEDS: levETIRAcetam 500 MG/5 ML LIQUID UDC GT SCH ×2 (08:37→20:49)
[2023-03-23] MEDS: POTASSIUM CHLORIDE 40 MEQ/30 ML LIQUID UDC GT SCH (08:38)
[2023-03-23] MEDS: NEOMY/BACITRA/POLYMYXIN B OINT UD PACKET TP SCH (08:40)
[2023-03-23] MEDS: REMEDY ESSENTIAL ZINC PASTE 113 GM TP SCH ×2 (08:40→20:49)
[2023-03-23] MEDS: COD LIVER OIL/ZINC OXIDE OINT 113 GM TUBE TP SCH ×2 (08:40→20:49)
[2023-03-23 20:00] VITALS: TEMP 98.4
[2023-03-23] MEDS: FOLIC ACID 1 MG TABLET GT SCH (20:49)
[2023-03-23] MEDS: THIAMINE HCL 100 MG TABLET GT SCH (20:49)
[2023-03-23] MEDS: CHOLECALCIFEROL 1,000 UNIT TABLET GT SCH (20:49)
[2023-03-23] MEDS: MIRALAX 17 GM POWD.PACK GT SCH (20:49)
[2023-03-23] MEDS: VITAL AF 1.2 1,000 ML LIQUID GT PRN (22:48)
[2023-03-24] MEDS: ALBUTEROL SULFATE 2.5 MG/3 ML NEBU NEB SCH ×7 (00:06→23:29)
[2023-03-24] MEDS: IPRATROPIUM BROMIDE 0.5 MG/2.5 ML NEBU NEB SCH ×7 (00:06→23:29)
[2023-03-24] MEDS: METOCLOPRAMIDE HCL 5 MG TABLET GT SCH ×3 (05:18→21:02)
[2023-03-24] MEDS: MAGNESIUM OXIDE 400 MG TABLET GT SCH (05:18)
[2023-03-24] MEDS: OMEPRAZOLE 20 MG CAPSULE.DR GT SCH (05:18)
[2023-03-24] MEDS: MIDODRINE HCL 10 MG TABLET GT SCH ×3 (05:18→21:02)
[2023-03-24] MEDS: BACLOFEN 20 MG TABLET GT SCH ×3 (05:18→21:02)
[2023-03-24] MEDS: HYDROGEN PEROXIDE 3% 118 ML BOTTLE TP SCH ×2 (07:30→19:16)
[2023-03-24 07:36] VITALS: TEMP 97.7
[2023-03-24] MEDS: levETIRAcetam 500 MG/5 ML LIQUID UDC GT SCH ×2 (09:51→21:00)
[2023-03-24] MEDS: POTASSIUM CHLORIDE 40 MEQ/30 ML LIQUID UDC GT SCH (09:51)
[2023-03-24] MEDS: FUROSEMIDE 10 MG/ML GT SCH (09:51)
[2023-03-24] MEDS: PHENYTOIN 100 MG/4 ML UDC GT SCH ×2 (09:51→20:58)
[2023-03-24] MEDS: FERROUS SULFATE 330 MG/7.5 ML UDC- FOR SA ONLY GT SCH ×2 (09:51→20:59)
[2023-03-24] MEDS: REMEDY ESSENTIAL ZINC PASTE 113 GM TP SCH ×2 (09:51→21:02)
[2023-03-24] MEDS: ACIDOPHILUS/BULGARICUS CHEW TAB GT SCH ×2 (09:51→21:00)
[2023-03-24] MEDS: COD LIVER OIL/ZINC OXIDE OINT 113 GM TUBE TP SCH ×2 (09:51→21:02)
[2023-03-24] MEDS: NEOMY/BACITRA/POLYMYXIN B OINT UD PACKET TP SCH (09:52)
[2023-03-24 20:00] VITALS: TEMP 98.5
[2023-03-24] MEDS: FOLIC ACID 1 MG TABLET GT SCH (21:00)
[2023-03-24] MEDS: THIAMINE HCL 100 MG TABLET GT SCH (21:01)
[2023-03-24] MEDS: CHOLECALCIFEROL 1,000 UNIT TABLET GT SCH (21:02)
[2023-03-25] MEDS: IPRATROPIUM BROMIDE 0.5 MG/2.5 ML NEBU NEB SCH ×6 (03:30→23:08)
[2023-03-25] MEDS: ALBUTEROL SULFATE 2.5 MG/3 ML NEBU NEB SCH ×6 (03:30→23:08)
[2023-03-25] MEDS: VITAL AF 1.2 1,000 ML LIQUID GT PRN (04:35)
[2023-03-25] MEDS: BACLOFEN 20 MG TABLET GT SCH ×3 (06:03→22:00)
[2023-03-25] MEDS: MAGNESIUM OXIDE 400 MG TABLET GT SCH (06:03)
[2023-03-25] MEDS: METOCLOPRAMIDE HCL 5 MG TABLET GT SCH ×3 (06:04→22:00)
[2023-03-25] MEDS: MIDODRINE HCL 10 MG TABLET GT SCH ×3 (06:04→22:00)
[2023-03-25] MEDS: OMEPRAZOLE 20 MG CAPSULE.DR GT SCH (06:04)
[2023-03-25 07:37] VITALS: TEMP 97.5
[2023-03-25] MEDS: HYDROGEN PEROXIDE 3% 118 ML BOTTLE TP SCH ×2 (08:19→19:11)
[2023-03-25] MEDS: FUROSEMIDE 10 MG/ML GT SCH (09:00)
[2023-03-25] MEDS: POTASSIUM CHLORIDE 40 MEQ/30 ML LIQUID UDC GT SCH (09:00)
[2023-03-25] MEDS: levETIRAcetam 500 MG/5 ML LIQUID UDC GT SCH ×2 (09:00→20:48)
[2023-03-25] MEDS: PHENYTOIN 100 MG/4 ML UDC GT SCH ×2 (09:00→20:47)
[2023-03-25] MEDS: FERROUS SULFATE 330 MG/7.5 ML UDC- FOR SA ONLY GT SCH ×2 (09:00→20:48)
[2023-03-25] MEDS: NEOMY/BACITRA/POLYMYXIN B OINT UD PACKET TP SCH (09:00)
[2023-03-25] MEDS: ACIDOPHILUS/BULGARICUS CHEW TAB GT SCH ×2 (09:00→20:48)
[2023-03-25] MEDS: REMEDY ESSENTIAL ZINC PASTE 113 GM TP SCH ×2 (09:00→20:49)
[2023-03-25] MEDS: COD LIVER OIL/ZINC OXIDE OINT 113 GM TUBE TP SCH ×2 (09:00→20:49)
[2023-03-25 20:00] VITALS: TEMP 96.1
[2023-03-25] MEDS: FOLIC ACID 1 MG TABLET GT SCH (20:48)
[2023-03-25] MEDS: MIRALAX 17 GM POWD.PACK GT SCH (20:48)
[2023-03-25] MEDS: CHOLECALCIFEROL 1,000 UNIT TABLET GT SCH (20:49)
[2023-03-25] MEDS: THIAMINE HCL 100 MG TABLET GT SCH (20:49)
[2023-03-26] MEDS: IPRATROPIUM BROMIDE 0.5 MG/2.5 ML NEBU NEB SCH ×6 (03:01→23:09)
[2023-03-26] MEDS: ALBUTEROL SULFATE 2.5 MG/3 ML NEBU NEB SCH ×6 (03:01→23:09)
[2023-03-26] MEDS: OMEPRAZOLE 20 MG CAPSULE.DR GT SCH (06:07)
[2023-03-26] MEDS: MIDODRINE HCL 10 MG TABLET GT SCH ×3 (06:07→21:03)
[2023-03-26] MEDS: BACLOFEN 20 MG TABLET GT SCH ×3 (06:07→21:03)
[2023-03-26] MEDS: MAGNESIUM OXIDE 400 MG TABLET GT SCH (06:07)
[2023-03-26] MEDS: METOCLOPRAMIDE HCL 5 MG TABLET GT SCH ×3 (06:07→21:03)
[2023-03-26] MEDS: HYDROGEN PEROXIDE 3% 118 ML BOTTLE TP SCH ×2 (07:19→19:06)
[2023-03-26 08:00] VITALS: TEMP 97.5
[2023-03-26] MEDS: FERROUS SULFATE 330 MG/7.5 ML UDC- FOR SA ONLY GT SCH ×2 (08:52→20:50)
[2023-03-26] MEDS: levETIRAcetam 500 MG/5 ML LIQUID UDC GT SCH ×2 (08:52→20:52)
[2023-03-26] MEDS: ACIDOPHILUS/BULGARICUS CHEW TAB GT SCH ×2 (08:52→20:51)
[2023-03-26] MEDS: PHENYTOIN 100 MG/4 ML UDC GT SCH ×2 (08:52→20:49)
[2023-03-26] MEDS: FUROSEMIDE 10 MG/ML GT SCH (08:52)
[2023-03-26] MEDS: COD LIVER OIL/ZINC OXIDE OINT 113 GM TUBE TP SCH ×2 (08:58→20:54)
[2023-03-26] MEDS: NEOMY/BACITRA/POLYMYXIN B OINT UD PACKET TP SCH (08:58)
[2023-03-26] MEDS: POTASSIUM CHLORIDE 40 MEQ/30 ML LIQUID UDC GT SCH (08:58)
[2023-03-26] MEDS: REMEDY ESSENTIAL ZINC PASTE 113 GM TP SCH ×2 (08:58→20:54)
[2023-03-26 20:00] VITALS: TEMP 97.2
[2023-03-26] MEDS: FOLIC ACID 1 MG TABLET GT SCH (20:52)
[2023-03-26] MEDS: CHOLECALCIFEROL 1,000 UNIT TABLET GT SCH (20:53)
[2023-03-26] MEDS: THIAMINE HCL 100 MG TABLET GT SCH (20:53)
[2023-03-27] MEDS: ALBUTEROL SULFATE 2.5 MG/3 ML NEBU NEB SCH ×6 (03:02→23:14)
[2023-03-27] MEDS: IPRATROPIUM BROMIDE 0.5 MG/2.5 ML NEBU NEB SCH ×6 (03:02→23:14)
[2023-03-27] MEDS: VITAL AF 1.2 1,000 ML LIQUID GT PRN (05:00)
[2023-03-27] MEDS: MAGNESIUM OXIDE 400 MG TABLET GT SCH (05:37)
[2023-03-27] MEDS: BACLOFEN 20 MG TABLET GT SCH ×3 (05:37→21:35)
[2023-03-27] MEDS: MIDODRINE HCL 10 MG TABLET GT SCH ×3 (05:37→21:36)
[2023-03-27] MEDS: METOCLOPRAMIDE HCL 5 MG TABLET GT SCH ×3 (05:37→21:36)
[2023-03-27] MEDS: OMEPRAZOLE 20 MG CAPSULE.DR GT SCH (05:37)
[2023-03-27] MEDS: HYDROGEN PEROXIDE 3% 118 ML BOTTLE TP SCH ×2 (07:58→19:11)
[2023-03-27 08:00] VITALS: TEMP 98
[2023-03-27] MEDS: levETIRAcetam 500 MG/5 ML LIQUID UDC GT SCH ×2 (09:33→21:35)
[2023-03-27] MEDS: COD LIVER OIL/ZINC OXIDE OINT 113 GM TUBE TP SCH ×2 (09:33→21:35)
[2023-03-27] MEDS: PHENYTOIN 100 MG/4 ML UDC GT SCH ×2 (09:33→21:35)
[2023-03-27] MEDS: REMEDY ESSENTIAL ZINC PASTE 113 GM TP SCH ×2 (09:33→21:35)
[2023-03-27] MEDS: POTASSIUM CHLORIDE 40 MEQ/30 ML LIQUID UDC GT SCH (09:33)
[2023-03-27] MEDS: ACIDOPHILUS/BULGARICUS CHEW TAB GT SCH ×2 (09:33→21:35)
[2023-03-27] MEDS: FERROUS SULFATE 330 MG/7.5 ML UDC- FOR SA ONLY GT SCH ×2 (09:33→21:35)
[2023-03-27] MEDS: FUROSEMIDE 10 MG/ML GT SCH (09:33)
[2023-03-27 11:25] VITALS: O2SAT 98
[2023-03-27 20:00] VITALS: TEMP 95.2
[2023-03-27] MEDS: CHOLECALCIFEROL 1,000 UNIT TABLET GT SCH (21:35)
[2023-03-27] MEDS: MIRALAX 17 GM POWD.PACK GT SCH (21:35)
[2023-03-27] MEDS: THIAMINE HCL 100 MG TABLET GT SCH (21:35)
[2023-03-27] MEDS: FOLIC ACID 1 MG TABLET GT SCH (21:35)
[2023-03-27 23:30] VITALS: TEMP 97.4
[2023-03-28 00:20] VITALS: TEMP 98.8
[2023-03-28] MEDS: IPRATROPIUM BROMIDE 0.5 MG/2.5 ML NEBU NEB SCH ×6 (03:06→23:02)
[2023-03-28] MEDS: ALBUTEROL SULFATE 2.5 MG/3 ML NEBU NEB SCH ×6 (03:06→23:02)
[2023-03-28] MEDS: BACLOFEN 20 MG TABLET GT SCH ×3 (05:25→22:41)
[2023-03-28] MEDS: OMEPRAZOLE 20 MG CAPSULE.DR GT SCH (05:26)
[2023-03-28] MEDS: METOCLOPRAMIDE HCL 5 MG TABLET GT SCH ×3 (05:26→22:42)
[2023-03-28] MEDS: MIDODRINE HCL 10 MG TABLET GT SCH ×3 (05:26→22:00)
[2023-03-28] MEDS: MAGNESIUM OXIDE 400 MG TABLET GT SCH (05:26)
[2023-03-28] MEDS: HYDROGEN PEROXIDE 3% 118 ML BOTTLE TP SCH ×2 (07:11→23:02)
[2023-03-28 08:00] VITALS: TEMP 97.6
[2023-03-28] MEDS: FERROUS SULFATE 330 MG/7.5 ML UDC- FOR SA ONLY GT SCH ×2 (09:27→20:29)
[2023-03-28] MEDS: PHENYTOIN 100 MG/4 ML UDC GT SCH ×2 (09:27→20:28)
[2023-03-28] MEDS: FUROSEMIDE 10 MG/ML GT SCH (09:28)
[2023-03-28] MEDS: ACIDOPHILUS/BULGARICUS CHEW TAB GT SCH ×2 (09:28→20:29)
[2023-03-28] MEDS: POTASSIUM CHLORIDE 40 MEQ/30 ML LIQUID UDC GT SCH (09:29)
[2023-03-28] MEDS: COD LIVER OIL/ZINC OXIDE OINT 113 GM TUBE TP SCH ×2 (09:29→20:31)
[2023-03-28] MEDS: levETIRAcetam 500 MG/5 ML LIQUID UDC GT SCH ×2 (09:29→20:31)
[2023-03-28] MEDS: REMEDY ESSENTIAL ZINC PASTE 113 GM TP SCH ×2 (09:30→20:31)
[2023-03-28 20:00] VITALS: TEMP 98.8
[2023-03-28] MEDS: FOLIC ACID 1 MG TABLET GT SCH (20:30)
[2023-03-28] MEDS: THIAMINE HCL 100 MG TABLET GT SCH (20:31)
[2023-03-28] MEDS: CHOLECALCIFEROL 1,000 UNIT TABLET GT SCH (20:31)
[2023-03-28] MEDS: VITAL AF 1.2 1,000 ML LIQUID GT PRN (23:54)
[2023-03-29] MEDS: ALBUTEROL SULFATE 2.5 MG/3 ML NEBU NEB SCH ×6 (03:10→23:02)
[2023-03-29] MEDS: IPRATROPIUM BROMIDE 0.5 MG/2.5 ML NEBU NEB SCH ×6 (03:10→23:01)
[2023-03-29] MEDS: MAGNESIUM OXIDE 400 MG TABLET GT SCH (06:44)
[2023-03-29] MEDS: BACLOFEN 20 MG TABLET GT SCH ×3 (06:44→21:04)
[2023-03-29] MEDS: MIDODRINE HCL 10 MG TABLET GT SCH ×3 (06:44→21:46)
[2023-03-29] MEDS: OMEPRAZOLE 20 MG CAPSULE.DR GT SCH (06:45)
[2023-03-29] MEDS: METOCLOPRAMIDE HCL 5 MG TABLET GT SCH ×3 (06:45→21:04)
[2023-03-29] MEDS: HYDROGEN PEROXIDE 3% 118 ML BOTTLE TP SCH ×2 (07:13→19:08)
[2023-03-29] MEDS: FERROUS SULFATE 330 MG/7.5 ML UDC- FOR SA ONLY GT SCH ×2 (08:53→21:00)
[2023-03-29] MEDS: ACIDOPHILUS/BULGARICUS CHEW TAB GT SCH ×2 (08:55→21:00)
[2023-03-29] MEDS: FUROSEMIDE 10 MG/ML GT SCH (08:55)
[2023-03-29] MEDS: levETIRAcetam 500 MG/5 ML LIQUID UDC GT SCH ×2 (08:56→21:02)
[2023-03-29] MEDS: POTASSIUM CHLORIDE 40 MEQ/30 ML LIQUID UDC GT SCH (08:57)
[2023-03-29] MEDS: PHENYTOIN 100 MG/4 ML UDC GT SCH ×2 (08:59→21:00)
[2023-03-29] MEDS: COD LIVER OIL/ZINC OXIDE OINT 113 GM TUBE TP SCH ×2 (08:59→21:03)
[2023-03-29] MEDS: REMEDY ESSENTIAL ZINC PASTE 113 GM TP SCH ×2 (08:59→21:03)
[2023-03-29 12:03] VITALS: TEMP 98.1
[2023-03-29 20:00] VITALS: TEMP 97.9
[2023-03-29] MEDS: FOLIC ACID 1 MG TABLET GT SCH (21:00)
[2023-03-29] MEDS: THIAMINE HCL 100 MG TABLET GT SCH (21:02)
[2023-03-29] MEDS: CHOLECALCIFEROL 1,000 UNIT TABLET GT SCH (21:03)
[2023-03-30] MEDS: ALBUTEROL SULFATE 2.5 MG/3 ML NEBU NEB SCH ×6 (03:13→23:44)
[2023-03-30] MEDS: IPRATROPIUM BROMIDE 0.5 MG/2.5 ML NEBU NEB SCH ×6 (03:13→23:44)
[2023-03-30] MEDS: MIDODRINE HCL 10 MG TABLET GT SCH ×3 (06:00→21:12)
[2023-03-30] MEDS: BACLOFEN 20 MG TABLET GT SCH ×3 (06:39→21:12)
[2023-03-30] MEDS: OMEPRAZOLE 20 MG CAPSULE.DR GT SCH (06:39)
[2023-03-30] MEDS: METOCLOPRAMIDE HCL 5 MG TABLET GT SCH ×3 (06:39→21:12)
[2023-03-30] MEDS: MAGNESIUM OXIDE 400 MG TABLET GT SCH (06:39)
[2023-03-30 06:40] VITALS: BP 126/73; TEMP 97; O2SAT 100
[2023-03-30 07:31] VITALS: TEMP 97.6
[2023-03-30 07:43] VITALS: TEMP 97.6
[2023-03-30] MEDS: HYDROGEN PEROXIDE 3% 118 ML BOTTLE TP SCH ×2 (08:03→19:10)
[2023-03-30] MEDS: ACIDOPHILUS/BULGARICUS CHEW TAB GT SCH ×2 (08:28→21:03)
[2023-03-30] MEDS: FERROUS SULFATE 330 MG/7.5 ML UDC- FOR SA ONLY GT SCH ×2 (08:28→21:03)
[2023-03-30] MEDS: FUROSEMIDE 10 MG/ML GT SCH (08:28)
[2023-03-30] MEDS: PHENYTOIN 100 MG/4 ML UDC GT SCH ×2 (08:28→21:02)
[2023-03-30] MEDS: REMEDY ESSENTIAL ZINC PASTE 113 GM TP SCH ×2 (08:29→21:11)
[2023-03-30] MEDS: levETIRAcetam 500 MG/5 ML LIQUID UDC GT SCH ×2 (08:29→21:04)
[2023-03-30] MEDS: POTASSIUM CHLORIDE 40 MEQ/30 ML LIQUID UDC GT SCH (08:29)
[2023-03-30] MEDS: COD LIVER OIL/ZINC OXIDE OINT 113 GM TUBE TP SCH ×2 (08:29→21:11)
[2023-03-30 20:00] VITALS: TEMP 97
[2023-03-30] MEDS: FOLIC ACID 1 MG TABLET GT SCH (21:04)
[2023-03-30] MEDS: THIAMINE HCL 100 MG TABLET GT SCH (21:10)
[2023-03-30] MEDS: MIRALAX 17 GM POWD.PACK GT SCH (21:10)
[2023-03-30] MEDS: CHOLECALCIFEROL 1,000 UNIT TABLET GT SCH (21:10)
[2023-03-31] MEDS: ALBUTEROL SULFATE 2.5 MG/3 ML NEBU NEB SCH ×6 (03:30→23:27)
[2023-03-31] MEDS: IPRATROPIUM BROMIDE 0.5 MG/2.5 ML NEBU NEB SCH ×6 (03:30→23:27)
[2023-03-31] MEDS: BACLOFEN 20 MG TABLET GT SCH ×3 (05:53→21:13)
[2023-03-31] MEDS: MAGNESIUM OXIDE 400 MG TABLET GT SCH (05:53)
[2023-03-31] MEDS: MIDODRINE HCL 10 MG TABLET GT SCH ×3 (05:54→21:14)
[2023-03-31] MEDS: METOCLOPRAMIDE HCL 5 MG TABLET GT SCH ×3 (05:54→21:14)
[2023-03-31] MEDS: OMEPRAZOLE 20 MG CAPSULE.DR GT SCH (05:54)
[2023-03-31] MEDS: HYDROGEN PEROXIDE 3% 118 ML BOTTLE TP SCH ×2 (07:11→19:10)
[2023-03-31 07:35] VITALS: TEMP 97.3
[2023-03-31] MEDS: PHENYTOIN 100 MG/4 ML UDC GT SCH ×2 (09:28→21:13)
[2023-03-31] MEDS: ACIDOPHILUS/BULGARICUS CHEW TAB GT SCH ×2 (09:29→21:13)
[2023-03-31] MEDS: FERROUS SULFATE 330 MG/7.5 ML UDC- FOR SA ONLY GT SCH ×2 (09:29→21:13)
[2023-03-31] MEDS: FUROSEMIDE 10 MG/ML GT SCH (09:29)
[2023-03-31] MEDS: levETIRAcetam 500 MG/5 ML LIQUID UDC GT SCH ×2 (09:30→21:13)
[2023-03-31] MEDS: POTASSIUM CHLORIDE 40 MEQ/30 ML LIQUID UDC GT SCH (09:30)
[2023-03-31] MEDS: COD LIVER OIL/ZINC OXIDE OINT 113 GM TUBE TP SCH ×2 (09:31→21:13)
[2023-03-31] MEDS: REMEDY ESSENTIAL ZINC PASTE 113 GM TP SCH ×2 (09:31→21:13)
[2023-03-31 20:00] VITALS: TEMP 97.5; TEMP 98.3
[2023-03-31] MEDS: THIAMINE HCL 100 MG TABLET GT SCH (21:13)
[2023-03-31] MEDS: CHOLECALCIFEROL 1,000 UNIT TABLET GT SCH (21:13)
[2023-03-31] MEDS: FOLIC ACID 1 MG TABLET GT SCH (21:13)
[2023-04-01] MEDS: ALBUTEROL SULFATE 2.5 MG/3 ML NEBU NEB SCH ×6 (03:27→23:04)
[2023-04-01] MEDS: IPRATROPIUM BROMIDE 0.5 MG/2.5 ML NEBU NEB SCH ×6 (03:27→23:04)
[2023-04-01] MEDS: VITAL AF 1.2 1,000 ML LIQUID GT PRN (03:55)
[2023-04-01] MEDS: MAGNESIUM OXIDE 400 MG TABLET GT SCH (06:27)
[2023-04-01] MEDS: BACLOFEN 20 MG TABLET GT SCH ×3 (06:27→21:00)
[2023-04-01] MEDS: MIDODRINE HCL 10 MG TABLET GT SCH ×3 (06:28→21:00)
[2023-04-01] MEDS: OMEPRAZOLE 20 MG CAPSULE.DR GT SCH (06:28)
[2023-04-01] MEDS: METOCLOPRAMIDE HCL 5 MG TABLET GT SCH ×3 (06:28→21:00)
[2023-04-01] MEDS: HYDROGEN PEROXIDE 3% 118 ML BOTTLE TP SCH ×2 (07:24→19:05)
[2023-04-01 07:41] VITALS: TEMP 96.3
[2023-04-01] MEDS: REMEDY ESSENTIAL ZINC PASTE 113 GM TP SCH ×2 (09:00→20:59)
[2023-04-01] MEDS: PHENYTOIN 100 MG/4 ML UDC GT SCH ×2 (09:42→20:59)
[2023-04-01] MEDS: FERROUS SULFATE 330 MG/7.5 ML UDC- FOR SA ONLY GT SCH ×2 (09:43→20:59)
[2023-04-01] MEDS: ACIDOPHILUS/BULGARICUS CHEW TAB GT SCH ×2 (09:44→20:59)
[2023-04-01] MEDS: FUROSEMIDE 10 MG/ML GT SCH (09:44)
[2023-04-01] MEDS: POTASSIUM CHLORIDE 40 MEQ/30 ML LIQUID UDC GT SCH (09:45)
[2023-04-01] MEDS: COD LIVER OIL/ZINC OXIDE OINT 113 GM TUBE TP SCH ×2 (09:45→20:59)
[2023-04-01] MEDS: levETIRAcetam 500 MG/5 ML LIQUID UDC GT SCH ×2 (09:45→20:59)
[2023-04-01 20:00] VITALS: TEMP 97
[2023-04-01] MEDS: MIRALAX 17 GM POWD.PACK GT SCH (20:59)
[2023-04-01] MEDS: FOLIC ACID 1 MG TABLET GT SCH (20:59)
[2023-04-01] MEDS: THIAMINE HCL 100 MG TABLET GT SCH (20:59)
[2023-04-01] MEDS: CHOLECALCIFEROL 1,000 UNIT TABLET GT SCH (20:59)
[2023-04-02] MEDS: ALBUTEROL SULFATE 2.5 MG/3 ML NEBU NEB SCH ×6 (03:09→23:16)
[2023-04-02] MEDS: IPRATROPIUM BROMIDE 0.5 MG/2.5 ML NEBU NEB SCH ×6 (03:09→23:16)
[2023-04-02] MEDS: BACLOFEN 20 MG TABLET GT SCH ×3 (05:49→21:32)
[2023-04-02] MEDS: MAGNESIUM OXIDE 400 MG TABLET GT SCH (05:49)
[2023-04-02] MEDS: MIDODRINE HCL 10 MG TABLET GT SCH ×3 (05:50→21:32)
[2023-04-02] MEDS: METOCLOPRAMIDE HCL 5 MG TABLET GT SCH ×3 (05:50→21:32)
[2023-04-02] MEDS: OMEPRAZOLE 20 MG CAPSULE.DR GT SCH (05:50)
[2023-04-02] MEDS: HYDROGEN PEROXIDE 3% 118 ML BOTTLE TP SCH ×2 (07:14→19:26)
[2023-04-02 07:46] VITALS: TEMP 97.3
[2023-04-02] MEDS: PHENYTOIN 100 MG/4 ML UDC GT SCH ×2 (09:46→21:31)
[2023-04-02] MEDS: ACIDOPHILUS/BULGARICUS CHEW TAB GT SCH ×2 (09:47→21:31)
[2023-04-02] MEDS: FERROUS SULFATE 330 MG/7.5 ML UDC- FOR SA ONLY GT SCH ×2 (09:47→21:31)
[2023-04-02] MEDS: FUROSEMIDE 10 MG/ML GT SCH (09:48)
[2023-04-02] MEDS: levETIRAcetam 500 MG/5 ML LIQUID UDC GT SCH ×2 (09:48→21:31)
[2023-04-02] MEDS: POTASSIUM CHLORIDE 40 MEQ/30 ML LIQUID UDC GT SCH (09:49)
[2023-04-02] MEDS: COD LIVER OIL/ZINC OXIDE OINT 113 GM TUBE TP SCH ×2 (09:50→21:31)
[2023-04-02] MEDS: REMEDY ESSENTIAL ZINC PASTE 113 GM TP SCH ×2 (09:51→21:32)
[2023-04-02] MEDS: VITAL AF 1.2 1,000 ML LIQUID GT PRN (13:56)
[2023-04-02 20:00] VITALS: TEMP 95.2
[2023-04-02] MEDS: THIAMINE HCL 100 MG TABLET GT SCH (21:31)
[2023-04-02] MEDS: FOLIC ACID 1 MG TABLET GT SCH (21:31)
[2023-04-02] MEDS: CHOLECALCIFEROL 1,000 UNIT TABLET GT SCH (21:31)
[2023-04-03] VITALS: TEMP 97.6
[2023-04-03] MEDS: IPRATROPIUM BROMIDE 0.5 MG/2.5 ML NEBU NEB SCH ×6 (03:07→23:02)
[2023-04-03] MEDS: ALBUTEROL SULFATE 2.5 MG/3 ML NEBU NEB SCH ×6 (03:07→23:02)
[2023-04-03] MEDS: MAGNESIUM OXIDE 400 MG TABLET GT SCH (06:01)
[2023-04-03] MEDS: BACLOFEN 20 MG TABLET GT SCH ×3 (06:01→22:55)
[2023-04-03] MEDS: MIDODRINE HCL 10 MG TABLET GT SCH ×3 (06:02→22:57)
[2023-04-03] MEDS: METOCLOPRAMIDE HCL 5 MG TABLET GT SCH ×3 (06:02→22:59)
[2023-04-03] MEDS: OMEPRAZOLE 20 MG CAPSULE.DR GT SCH (06:02)
[2023-04-03] MEDS: HYDROGEN PEROXIDE 3% 118 ML BOTTLE TP SCH ×2 (07:08→19:11)
[2023-04-03 07:38] VITALS: TEMP 97.3
[2023-04-03] MEDS: FERROUS SULFATE 330 MG/7.5 ML UDC- FOR SA ONLY GT SCH ×2 (09:33→21:00)
[2023-04-03] MEDS: PHENYTOIN 100 MG/4 ML UDC GT SCH ×2 (09:33→21:00)
[2023-04-03] MEDS: FUROSEMIDE 10 MG/ML GT SCH (09:34)
[2023-04-03] MEDS: ACIDOPHILUS/BULGARICUS CHEW TAB GT SCH ×2 (09:34→21:00)
[2023-04-03] MEDS: levETIRAcetam 500 MG/5 ML LIQUID UDC GT SCH ×2 (09:34→21:00)
[2023-04-03] MEDS: COD LIVER OIL/ZINC OXIDE OINT 113 GM TUBE TP SCH ×2 (09:35→21:00)
[2023-04-03] MEDS: POTASSIUM CHLORIDE 40 MEQ/30 ML LIQUID UDC GT SCH (09:35)
[2023-04-03] MEDS: REMEDY ESSENTIAL ZINC PASTE 113 GM TP SCH ×2 (09:35→21:00)
[2023-04-03] MEDS: VITAL AF 1.2 1,000 ML LIQUID GT PRN (16:43)
[2023-04-03 20:00] VITALS: TEMP 97.2; TEMP 97.6
[2023-04-03] MEDS: FOLIC ACID 1 MG TABLET GT SCH (21:00)
[2023-04-03] MEDS: MIRALAX 17 GM POWD.PACK GT SCH (21:00)
[2023-04-03] MEDS: CHOLECALCIFEROL 1,000 UNIT TABLET GT SCH (21:00)
[2023-04-03] MEDS: THIAMINE HCL 100 MG TABLET GT SCH (21:00)
[2023-04-04] MEDS: ALBUTEROL SULFATE 2.5 MG/3 ML NEBU NEB SCH ×6 (02:59→23:04)
[2023-04-04] MEDS: IPRATROPIUM BROMIDE 0.5 MG/2.5 ML NEBU NEB SCH ×6 (02:59→23:04)
[2023-04-04] MEDS: OMEPRAZOLE 20 MG CAPSULE.DR GT SCH (06:00)
[2023-04-04] MEDS: MAGNESIUM OXIDE 400 MG TABLET GT SCH (06:00)
[2023-04-04] MEDS: METOCLOPRAMIDE HCL 5 MG TABLET GT SCH ×3 (06:00→21:29)
[2023-04-04] MEDS: MIDODRINE HCL 10 MG TABLET GT SCH ×3 (06:00→21:29)
[2023-04-04] MEDS: BACLOFEN 20 MG TABLET GT SCH ×3 (06:00→21:28)
[2023-04-04 07:49] VITALS: TEMP 95.2
[2023-04-04] MEDS: HYDROGEN PEROXIDE 3% 118 ML BOTTLE TP SCH ×2 (07:56→19:05)
[2023-04-04] MEDS: FERROUS SULFATE 330 MG/7.5 ML UDC- FOR SA ONLY GT SCH ×2 (09:49→21:20)
[2023-04-04] MEDS: PHENYTOIN 100 MG/4 ML UDC GT SCH ×2 (09:49→21:20)
[2023-04-04] MEDS: ACIDOPHILUS/BULGARICUS CHEW TAB GT SCH ×2 (09:49→21:21)
[2023-04-04] MEDS: POTASSIUM CHLORIDE 40 MEQ/30 ML LIQUID UDC GT SCH (09:50)
[2023-04-04] MEDS: COD LIVER OIL/ZINC OXIDE OINT 113 GM TUBE TP SCH ×2 (09:50→21:28)
[2023-04-04] MEDS: levETIRAcetam 500 MG/5 ML LIQUID UDC GT SCH ×2 (09:50→21:21)
[2023-04-04] MEDS: REMEDY ESSENTIAL ZINC PASTE 113 GM TP SCH ×2 (09:50→21:28)
[2023-04-04] MEDS: FUROSEMIDE 10 MG/ML GT SCH (09:50)
[2023-04-04 20:00] VITALS: TEMP 94.5; TEMP 99.2
[2023-04-04 20:50] VITALS: TEMP 94.5
[2023-04-04] MEDS: FOLIC ACID 1 MG TABLET GT SCH (21:21)
[2023-04-04] MEDS: THIAMINE HCL 100 MG TABLET GT SCH (21:27)
[2023-04-04] MEDS: CHOLECALCIFEROL 1,000 UNIT TABLET GT SCH (21:27)
[2023-04-05 02:43] VITALS: TEMP 97.5
[2023-04-05] MEDS: ALBUTEROL SULFATE 2.5 MG/3 ML NEBU NEB SCH ×6 (03:22→23:04)
[2023-04-05] MEDS: IPRATROPIUM BROMIDE 0.5 MG/2.5 ML NEBU NEB SCH ×6 (03:22→23:04)
[2023-04-05] MEDS: MAGNESIUM OXIDE 400 MG TABLET GT SCH (05:05)
[2023-04-05] MEDS: BACLOFEN 20 MG TABLET GT SCH ×3 (05:05→22:09)
[2023-04-05] MEDS: MIDODRINE HCL 10 MG TABLET GT SCH ×3 (05:06→22:10)
[2023-04-05] MEDS: METOCLOPRAMIDE HCL 5 MG TABLET GT SCH ×3 (05:06→22:10)
[2023-04-05] MEDS: OMEPRAZOLE 20 MG CAPSULE.DR GT SCH (05:06)
[2023-04-05 08:02] VITALS: TEMP 98.6
[2023-04-05] MEDS: HYDROGEN PEROXIDE 3% 118 ML BOTTLE TP SCH ×2 (08:22→19:06)
[2023-04-05] MEDS: PHENYTOIN 100 MG/4 ML UDC GT SCH ×2 (09:22→20:26)
[2023-04-05] MEDS: FERROUS SULFATE 330 MG/7.5 ML UDC- FOR SA ONLY GT SCH ×2 (09:22→20:26)
[2023-04-05] MEDS: ACIDOPHILUS/BULGARICUS CHEW TAB GT SCH ×2 (09:23→20:26)
[2023-04-05] MEDS: FUROSEMIDE 10 MG/ML GT SCH (09:28)
[2023-04-05] MEDS: levETIRAcetam 500 MG/5 ML LIQUID UDC GT SCH ×2 (09:33→20:26)
[2023-04-05] MEDS: POTASSIUM CHLORIDE 40 MEQ/30 ML LIQUID UDC GT SCH (09:34)
[2023-04-05] MEDS: COD LIVER OIL/ZINC OXIDE OINT 113 GM TUBE TP SCH ×2 (09:34→20:26)
[2023-04-05] MEDS: REMEDY ESSENTIAL ZINC PASTE 113 GM TP SCH ×2 (09:34→20:26)
[2023-04-05] MEDS: CHOLECALCIFEROL 1,000 UNIT TABLET GT SCH (20:26)
[2023-04-05] MEDS: THIAMINE HCL 100 MG TABLET GT SCH (20:26)
[2023-04-05] MEDS: FOLIC ACID 1 MG TABLET GT SCH (20:26)
[2023-04-05 20:30] VITALS: TEMP 97.3
[2023-04-05 20:31] VITALS: TEMP 98.9
[2023-04-05 20:32] VITALS: TEMP 97.3
[2023-04-06] MEDS: IPRATROPIUM BROMIDE 0.5 MG/2.5 ML NEBU NEB SCH ×6 (03:18→23:14)
[2023-04-06] MEDS: ALBUTEROL SULFATE 2.5 MG/3 ML NEBU NEB SCH ×6 (03:19→23:14)
[2023-04-06] MEDS: MAGNESIUM OXIDE 400 MG TABLET GT SCH (05:27)
[2023-04-06] MEDS: BACLOFEN 20 MG TABLET GT SCH ×3 (05:27→22:24)
[2023-04-06] MEDS: OMEPRAZOLE 20 MG CAPSULE.DR GT SCH (05:28)
[2023-04-06] MEDS: MIDODRINE HCL 10 MG TABLET GT SCH ×3 (05:28→22:24)
[2023-04-06] MEDS: METOCLOPRAMIDE HCL 5 MG TABLET GT SCH ×3 (05:28→22:24)
[2023-04-06 07:33] VITALS: TEMP 97.7
[2023-04-06 07:36] LABS: BASOPHILS % (AUTO) 0.7 % (0.0-2.0); EOSINOPHILS # (AUTO) 0.2 K/uL (0.0-0.7); EOSINOPHILS % (AUTO) 2.3 % (0.0-7.0); HEMATOCRIT 27.9 % (31.2-41.9); HEMOGLOBIN 9.4 g/dL (10.9-14.3); LYMPHOCYTES # (AUTO) 1.5 K/uL (0.8-4.8); MEAN CORPUSCULAR HEMOGLOBIN 29.8 uug (24.7-32.8); MEAN CORPUSCULAR HGB CONC 34 g/dL (32.3-35.6); MONOCYTES # (AUTO) 0.5 K/uL (0.1-1.30); MONOCYTES % (AUTO) 8.4 % (0.0-11.0); NEUTROPHILS # (AUTO) 4.2 K/uL (1.8-8.9); NEUTROPHILS % (AUTO) 64.6 % (38.5-71.5); PLATELET COUNT (AUTO) 334 K/uL (179-408); RED BLOOD CELL COUNT(AUTO) 3.17 MIL/uL (3.63-4.92); RED CELL DISTRIBUTION WIDTH 18.3 % (12.3-17.7); WHITE BLOOD COUNT (AUTO) 6.5 K/uL (3.8-11.8)
[2023-04-06 07:42] LABS: DIFFERENTIAL COMMENT 1
[2023-04-06] MEDS: HYDROGEN PEROXIDE 3% 118 ML BOTTLE TP SCH ×2 (09:00→19:17)
[2023-04-06 09:06] LABS: ALANINE AMINOTRANSFERASE 38 U/L (14-59); ALBUMIN 2.3 g/dL (3.4-5.0); ALKALINE PHOSPHATASE 250 U/L (50-136); ASPARTATE AMINOTRANSFERASE 11 U/L (15-37); BILIRUBIN,TOTAL 0.2 mg/dL (0.2-1.0); CALCIUM 9.3 mg/dL (8.5-10.1); CARBON DIOXIDE 21 mmol/L (21-32); CHLORIDE 103 mmol/L (98-107); CREATININE 0.5 mg/dL (0.6-1.3); GLUCOSE 75 mg/dL (74-106); MAGNESIUM 2.1 mg/dL (1.8-2.4); POTASSIUM 3.6 mmol/L (3.5-5.1); SODIUM SERUM 136 mmol/L (136-145); TOTAL PROTEIN, SERUM 8.2 g/dL (6.4-8.2); UREA NITROGEN, BLOOD 14 mg/dL (7-18)
[2023-04-06] MEDS: PHENYTOIN 100 MG/4 ML UDC GT SCH ×2 (09:41→20:38)
[2023-04-06] MEDS: FUROSEMIDE 10 MG/ML GT SCH (09:43)
[2023-04-06] MEDS: FERROUS SULFATE 330 MG/7.5 ML UDC- FOR SA ONLY GT SCH ×2 (09:43→20:39)
[2023-04-06] MEDS: ACIDOPHILUS/BULGARICUS CHEW TAB GT SCH ×2 (09:43→20:39)
[2023-04-06] MEDS: levETIRAcetam 500 MG/5 ML LIQUID UDC GT SCH ×2 (09:45→20:40)
[2023-04-06] MEDS: POTASSIUM CHLORIDE 40 MEQ/30 ML LIQUID UDC GT SCH (09:46)
[2023-04-06] MEDS: REMEDY ESSENTIAL ZINC PASTE 113 GM TP SCH ×2 (09:47→20:41)
[2023-04-06] MEDS: COD LIVER OIL/ZINC OXIDE OINT 113 GM TUBE TP SCH ×2 (09:47→20:41)
[2023-04-06 20:04] VITALS: TEMP 97.2
[2023-04-06] MEDS: FOLIC ACID 1 MG TABLET GT SCH (20:39)
[2023-04-06] MEDS: THIAMINE HCL 100 MG TABLET GT SCH (20:40)
[2023-04-06] MEDS: MIRALAX 17 GM POWD.PACK GT SCH (20:40)
[2023-04-06] MEDS: CHOLECALCIFEROL 1,000 UNIT TABLET GT SCH (20:41)
[2023-04-06] MEDS: VITAL AF 1.2 1,000 ML LIQUID GT PRN (22:25)
[2023-04-07] MEDS: IPRATROPIUM BROMIDE 0.5 MG/2.5 ML NEBU NEB SCH ×6 (03:17→23:24)
[2023-04-07] MEDS: ALBUTEROL SULFATE 2.5 MG/3 ML NEBU NEB SCH ×6 (03:17→23:24)
[2023-04-07] MEDS: OMEPRAZOLE 20 MG CAPSULE.DR GT SCH (05:17)
[2023-04-07] MEDS: MIDODRINE HCL 10 MG TABLET GT SCH ×3 (05:17→21:32)
[2023-04-07] MEDS: MAGNESIUM OXIDE 400 MG TABLET GT SCH (05:17)
[2023-04-07] MEDS: BACLOFEN 20 MG TABLET GT SCH ×3 (05:17→21:32)
[2023-04-07] MEDS: METOCLOPRAMIDE HCL 5 MG TABLET GT SCH ×3 (05:18→21:32)
[2023-04-07 07:42] VITALS: TEMP 100
[2023-04-07] MEDS: HYDROGEN PEROXIDE 3% 118 ML BOTTLE TP SCH ×2 (08:10→19:11)
[2023-04-07] MEDS: PHENYTOIN 100 MG/4 ML UDC GT SCH ×2 (08:39→21:32)
[2023-04-07] MEDS: FERROUS SULFATE 330 MG/7.5 ML UDC- FOR SA ONLY GT SCH ×2 (08:39→21:32)
[2023-04-07] MEDS: POTASSIUM CHLORIDE 40 MEQ/30 ML LIQUID UDC GT SCH (08:39)
[2023-04-07] MEDS: FUROSEMIDE 10 MG/ML GT SCH (08:39)
[2023-04-07] MEDS: ACIDOPHILUS/BULGARICUS CHEW TAB GT SCH ×2 (08:39→21:32)
[2023-04-07] MEDS: REMEDY ESSENTIAL ZINC PASTE 113 GM TP SCH ×2 (08:39→21:32)
[2023-04-07] MEDS: levETIRAcetam 500 MG/5 ML LIQUID UDC GT SCH ×2 (08:39→21:32)
[2023-04-07] MEDS: COD LIVER OIL/ZINC OXIDE OINT 113 GM TUBE TP SCH ×2 (08:39→21:32)
[2023-04-07 20:39] VITALS: TEMP 97.5
[2023-04-07] MEDS: CHOLECALCIFEROL 1,000 UNIT TABLET GT SCH (21:32)
[2023-04-07] MEDS: THIAMINE HCL 100 MG TABLET GT SCH (21:32)
[2023-04-07] MEDS: FOLIC ACID 1 MG TABLET GT SCH (21:32)
[2023-04-08] MEDS: ALBUTEROL SULFATE 2.5 MG/3 ML NEBU NEB SCH ×6 (03:16→23:02)
[2023-04-08] MEDS: IPRATROPIUM BROMIDE 0.5 MG/2.5 ML NEBU NEB SCH ×6 (03:16→23:02)
[2023-04-08] MEDS: BACLOFEN 20 MG TABLET GT SCH ×3 (06:09→21:31)
[2023-04-08] MEDS: MAGNESIUM OXIDE 400 MG TABLET GT SCH (06:10)
[2023-04-08] MEDS: OMEPRAZOLE 20 MG CAPSULE.DR GT SCH (06:11)
[2023-04-08] MEDS: MIDODRINE HCL 10 MG TABLET GT SCH ×3 (06:11→21:31)
[2023-04-08] MEDS: METOCLOPRAMIDE HCL 5 MG TABLET GT SCH ×3 (06:11→21:31)
[2023-04-08 08:00] VITALS: TEMP 97.6
[2023-04-08] MEDS: HYDROGEN PEROXIDE 3% 118 ML BOTTLE TP SCH ×2 (08:04→19:09)
[2023-04-08] MEDS: FUROSEMIDE 10 MG/ML GT SCH (09:28)
[2023-04-08] MEDS: PHENYTOIN 100 MG/4 ML UDC GT SCH ×2 (09:28→20:54)
[2023-04-08] MEDS: ACIDOPHILUS/BULGARICUS CHEW TAB GT SCH ×2 (09:28→20:50)
[2023-04-08] MEDS: levETIRAcetam 500 MG/5 ML LIQUID UDC GT SCH ×2 (09:28→21:00)
[2023-04-08] MEDS: FERROUS SULFATE 330 MG/7.5 ML UDC- FOR SA ONLY GT SCH ×2 (09:28→20:52)
[2023-04-08] MEDS: POTASSIUM CHLORIDE 40 MEQ/30 ML LIQUID UDC GT SCH (09:29)
[2023-04-08] MEDS: REMEDY ESSENTIAL ZINC PASTE 113 GM TP SCH ×2 (09:29→20:51)
[2023-04-08] MEDS: COD LIVER OIL/ZINC OXIDE OINT 113 GM TUBE TP SCH ×2 (09:29→20:51)
[2023-04-08 20:00] VITALS: TEMP 97.9
[2023-04-08] MEDS ORDERED: POTASSIUM CHLORIDE 40 MEQ/15 ML LIQUID GT ONE (20:00)
[2023-04-08] MEDS: MIRALAX 17 GM POWD.PACK GT SCH (20:51)
[2023-04-08] MEDS: CHOLECALCIFEROL 1,000 UNIT TABLET GT SCH (20:51)
[2023-04-08] MEDS: FOLIC ACID 1 MG TABLET GT SCH (20:52)
[2023-04-08] MEDS: THIAMINE HCL 100 MG TABLET GT SCH (21:00)
[2023-04-09] MEDS: IPRATROPIUM BROMIDE 0.5 MG/2.5 ML NEBU NEB SCH ×6 (03:08→23:31)
[2023-04-09] MEDS: ALBUTEROL SULFATE 2.5 MG/3 ML NEBU NEB SCH ×6 (03:08→23:31)
[2023-04-09] MEDS: MAGNESIUM OXIDE 400 MG TABLET GT SCH (05:14)
[2023-04-09] MEDS: MIDODRINE HCL 10 MG TABLET GT SCH ×3 (05:14→21:05)
[2023-04-09] MEDS: METOCLOPRAMIDE HCL 5 MG TABLET GT SCH ×3 (05:14→21:05)
[2023-04-09] MEDS: OMEPRAZOLE 20 MG CAPSULE.DR GT SCH (05:14)
[2023-04-09] MEDS: BACLOFEN 20 MG TABLET GT SCH ×3 (05:14→21:05)
[2023-04-09 08:00] VITALS: TEMP 97.5
[2023-04-09] MEDS: POTASSIUM CHLORIDE 40 MEQ/30 ML LIQUID UDC GT SCH (09:00)
[2023-04-09] MEDS: HYDROGEN PEROXIDE 3% 118 ML BOTTLE TP SCH ×2 (09:00→19:32)
[2023-04-09] MEDS: FUROSEMIDE 10 MG/ML GT SCH (09:00)
[2023-04-09] MEDS: FERROUS SULFATE 330 MG/7.5 ML UDC- FOR SA ONLY GT SCH ×2 (09:00→21:04)
[2023-04-09] MEDS: REMEDY ESSENTIAL ZINC PASTE 113 GM TP SCH ×2 (09:00→21:05)
[2023-04-09] MEDS: COD LIVER OIL/ZINC OXIDE OINT 113 GM TUBE TP SCH ×2 (09:00→21:05)
[2023-04-09] MEDS: levETIRAcetam 500 MG/5 ML LIQUID UDC GT SCH ×2 (09:00→21:04)
[2023-04-09] MEDS: ACIDOPHILUS/BULGARICUS CHEW TAB GT SCH ×2 (09:00→21:04)
[2023-04-09] MEDS: PHENYTOIN 100 MG/4 ML UDC GT SCH ×2 (09:00→21:04)
[2023-04-09] MEDS ORDERED: INFLUENZA VACCINE 2023-2024 0.5 ML DISP.SYRIN IM ONE (13:00)
[2023-04-09] MEDS: VITAL AF 1.2 1,000 ML LIQUID GT PRN (18:41)
[2023-04-09 19:39] VITALS: TEMP 97.8
[2023-04-09] MEDS: THIAMINE HCL 100 MG TABLET GT SCH (21:04)
[2023-04-09] MEDS: FOLIC ACID 1 MG TABLET GT SCH (21:04)
[2023-04-09] MEDS: CHOLECALCIFEROL 1,000 UNIT TABLET GT SCH (21:05)
[2023-04-10] MEDS: IPRATROPIUM BROMIDE 0.5 MG/2.5 ML NEBU NEB SCH ×6 (03:05→23:17)
[2023-04-10] MEDS: ALBUTEROL SULFATE 2.5 MG/3 ML NEBU NEB SCH ×6 (03:06→23:17)
[2023-04-10] MEDS: BACLOFEN 20 MG TABLET GT SCH ×3 (05:18→21:14)
[2023-04-10] MEDS: MIDODRINE HCL 10 MG TABLET GT SCH ×3 (05:18→21:15)
[2023-04-10] MEDS: MAGNESIUM OXIDE 400 MG TABLET GT SCH (05:18)
[2023-04-10] MEDS: METOCLOPRAMIDE HCL 5 MG TABLET GT SCH ×3 (05:19→21:15)
[2023-04-10] MEDS: OMEPRAZOLE 20 MG CAPSULE.DR GT SCH (05:19)
[2023-04-10 07:33] VITALS: TEMP 97
[2023-04-10] MEDS: PHENYTOIN 100 MG/4 ML UDC GT SCH ×2 (08:48→21:13)
[2023-04-10] MEDS: FERROUS SULFATE 330 MG/7.5 ML UDC- FOR SA ONLY GT SCH ×2 (08:51→21:13)
[2023-04-10] MEDS: ACIDOPHILUS/BULGARICUS CHEW TAB GT SCH ×2 (08:51→21:13)
[2023-04-10] MEDS: HYDROGEN PEROXIDE 3% 118 ML BOTTLE TP SCH ×2 (08:52→19:13)
[2023-04-10] MEDS: FUROSEMIDE 10 MG/ML GT SCH (08:54)
[2023-04-10] MEDS: levETIRAcetam 500 MG/5 ML LIQUID UDC GT SCH ×2 (08:55→21:13)
[2023-04-10] MEDS: COD LIVER OIL/ZINC OXIDE OINT 113 GM TUBE TP SCH ×2 (08:58→21:13)
[2023-04-10] MEDS: POTASSIUM CHLORIDE 40 MEQ/30 ML LIQUID UDC GT SCH (08:58)
[2023-04-10] MEDS: REMEDY ESSENTIAL ZINC PASTE 113 GM TP SCH ×2 (08:58→21:14)
[2023-04-10 20:00] VITALS: TEMP 97.7
[2023-04-10] MEDS: FOLIC ACID 1 MG TABLET GT SCH (21:13)
[2023-04-10] MEDS: MIRALAX 17 GM POWD.PACK GT SCH (21:13)
[2023-04-10] MEDS: CHOLECALCIFEROL 1,000 UNIT TABLET GT SCH (21:13)
[2023-04-10] MEDS: THIAMINE HCL 100 MG TABLET GT SCH (21:13)
[2023-04-11] MEDS: VITAL AF 1.2 1,000 ML LIQUID GT PRN ×2 (03:00→03:08)
[2023-04-11] MEDS: IPRATROPIUM BROMIDE 0.5 MG/2.5 ML NEBU NEB SCH ×6 (04:13→23:37)
[2023-04-11] MEDS: ALBUTEROL SULFATE 2.5 MG/3 ML NEBU NEB SCH ×6 (04:13→23:37)
[2023-04-11] MEDS: MAGNESIUM OXIDE 400 MG TABLET GT SCH (06:08)
[2023-04-11] MEDS: BACLOFEN 20 MG TABLET GT SCH ×3 (06:08→21:54)
[2023-04-11] MEDS: METOCLOPRAMIDE HCL 5 MG TABLET GT SCH ×3 (06:09→21:55)
[2023-04-11] MEDS: MIDODRINE HCL 10 MG TABLET GT SCH ×3 (06:09→21:55)
[2023-04-11] MEDS: OMEPRAZOLE 20 MG CAPSULE.DR GT SCH (06:09)
[2023-04-11 07:36] VITALS: TEMP 97.2
[2023-04-11] MEDS: HYDROGEN PEROXIDE 3% 118 ML BOTTLE TP SCH ×2 (09:00→19:29)
[2023-04-11] MEDS: PHENYTOIN 100 MG/4 ML UDC GT SCH ×2 (09:27→20:48)
[2023-04-11] MEDS: COD LIVER OIL/ZINC OXIDE OINT 113 GM TUBE TP SCH ×2 (09:28→20:48)
[2023-04-11] MEDS: ACIDOPHILUS/BULGARICUS CHEW TAB GT SCH ×2 (09:28→20:48)
[2023-04-11] MEDS: FERROUS SULFATE 330 MG/7.5 ML UDC- FOR SA ONLY GT SCH ×2 (09:28→20:48)
[2023-04-11] MEDS: FUROSEMIDE 10 MG/ML GT SCH (09:29)
[2023-04-11] MEDS: levETIRAcetam 500 MG/5 ML LIQUID UDC GT SCH ×2 (09:29→20:48)
[2023-04-11] MEDS: POTASSIUM CHLORIDE 40 MEQ/30 ML LIQUID UDC GT SCH (09:30)
[2023-04-11] MEDS: REMEDY ESSENTIAL ZINC PASTE 113 GM TP SCH ×2 (09:30→20:48)
[2023-04-11 20:00] VITALS: TEMP 97.2
[2023-04-11] MEDS: FOLIC ACID 1 MG TABLET GT SCH (20:48)
[2023-04-11] MEDS: CHOLECALCIFEROL 1,000 UNIT TABLET GT SCH (20:48)
[2023-04-11] MEDS: THIAMINE HCL 100 MG TABLET GT SCH (20:48)
[2023-04-12] MEDS: ALBUTEROL SULFATE 2.5 MG/3 ML NEBU NEB SCH ×6 (03:32→23:22)
[2023-04-12] MEDS: IPRATROPIUM BROMIDE 0.5 MG/2.5 ML NEBU NEB SCH ×6 (03:32→23:22)
[2023-04-12] MEDS: BACLOFEN 20 MG TABLET GT SCH ×3 (05:26→21:18)
[2023-04-12] MEDS: MAGNESIUM OXIDE 400 MG TABLET GT SCH (05:26)
[2023-04-12] MEDS: OMEPRAZOLE 20 MG CAPSULE.DR GT SCH (05:27)
[2023-04-12] MEDS: MIDODRINE HCL 10 MG TABLET GT SCH ×3 (05:27→21:18)
[2023-04-12] MEDS: METOCLOPRAMIDE HCL 5 MG TABLET GT SCH ×3 (05:27→21:18)
[2023-04-12] MEDS: HYDROGEN PEROXIDE 3% 118 ML BOTTLE TP SCH ×2 (07:20→19:19)
[2023-04-12 07:53] VITALS: TEMP 96
[2023-04-12] MEDS: FERROUS SULFATE 330 MG/7.5 ML UDC- FOR SA ONLY GT SCH ×2 (09:25→21:16)
[2023-04-12] MEDS: PHENYTOIN 100 MG/4 ML UDC GT SCH ×2 (09:25→21:16)
[2023-04-12] MEDS: FUROSEMIDE 10 MG/ML GT SCH (09:25)
[2023-04-12] MEDS: levETIRAcetam 500 MG/5 ML LIQUID UDC GT SCH ×2 (09:25→21:16)
[2023-04-12] MEDS: ACIDOPHILUS/BULGARICUS CHEW TAB GT SCH ×2 (09:25→21:16)
[2023-04-12] MEDS: POTASSIUM CHLORIDE 40 MEQ/30 ML LIQUID UDC GT SCH (09:26)
[2023-04-12] MEDS: REMEDY ESSENTIAL ZINC PASTE 113 GM TP SCH ×2 (09:26→21:16)
[2023-04-12] MEDS: COD LIVER OIL/ZINC OXIDE OINT 113 GM TUBE TP SCH ×2 (09:26→21:16)
[2023-04-12] MEDS: VITAL AF 1.2 1,000 ML LIQUID GT PRN (13:08)
[2023-04-12 20:00] VITALS: TEMP 94.5
[2023-04-12] MEDS: CHOLECALCIFEROL 1,000 UNIT TABLET GT SCH (21:16)
[2023-04-12] MEDS: THIAMINE HCL 100 MG TABLET GT SCH (21:16)
[2023-04-12] MEDS: FOLIC ACID 1 MG TABLET GT SCH (21:16)
[2023-04-13 02:54] VITALS: TEMP 97.9
[2023-04-13] MEDS: IPRATROPIUM BROMIDE 0.5 MG/2.5 ML NEBU NEB SCH ×6 (03:28→23:08)
[2023-04-13] MEDS: ALBUTEROL SULFATE 2.5 MG/3 ML NEBU NEB SCH ×6 (03:28→23:08)
[2023-04-13] MEDS: MIDODRINE HCL 10 MG TABLET GT SCH ×3 (05:41→21:16)
[2023-04-13] MEDS: METOCLOPRAMIDE HCL 5 MG TABLET GT SCH ×3 (05:41→21:16)
[2023-04-13] MEDS: MAGNESIUM OXIDE 400 MG TABLET GT SCH (05:41)
[2023-04-13] MEDS: OMEPRAZOLE 20 MG CAPSULE.DR GT SCH (05:41)
[2023-04-13] MEDS: BACLOFEN 20 MG TABLET GT SCH ×3 (05:41→21:16)
[2023-04-13 07:35] VITALS: TEMP 97
[2023-04-13] MEDS: PHENYTOIN 100 MG/4 ML UDC GT SCH ×2 (08:51→21:13)
[2023-04-13] MEDS: ACIDOPHILUS/BULGARICUS CHEW TAB GT SCH ×2 (08:52→21:13)
[2023-04-13] MEDS: levETIRAcetam 500 MG/5 ML LIQUID UDC GT SCH ×2 (08:52→21:14)
[2023-04-13] MEDS: FUROSEMIDE 10 MG/ML GT SCH (08:52)
[2023-04-13] MEDS: POTASSIUM CHLORIDE 40 MEQ/30 ML LIQUID UDC GT SCH (08:52)
[2023-04-13] MEDS: FERROUS SULFATE 330 MG/7.5 ML UDC- FOR SA ONLY GT SCH ×2 (08:52→21:13)
[2023-04-13] MEDS: REMEDY ESSENTIAL ZINC PASTE 113 GM TP SCH ×2 (08:53→21:15)
[2023-04-13] MEDS: HYDROGEN PEROXIDE 3% 118 ML BOTTLE TP SCH ×2 (08:56→19:32)
[2023-04-13] MEDS: VITAL AF 1.2 1,000 ML LIQUID GT PRN (18:00)
[2023-04-13 20:00] VITALS: TEMP 97.7
[2023-04-13] MEDS: FOLIC ACID 1 MG TABLET GT SCH (21:13)
[2023-04-13] MEDS: THIAMINE HCL 100 MG TABLET GT SCH (21:15)
[2023-04-13] MEDS: MIRALAX 17 GM POWD.PACK GT SCH (21:15)
[2023-04-13] MEDS: CHOLECALCIFEROL 1,000 UNIT TABLET GT SCH (21:15)
[2023-04-14] MEDS: ALBUTEROL SULFATE 2.5 MG/3 ML NEBU NEB SCH ×6 (03:13→23:08)
[2023-04-14] MEDS: IPRATROPIUM BROMIDE 0.5 MG/2.5 ML NEBU NEB SCH ×6 (03:13→23:08)
[2023-04-14] MEDS: MIDODRINE HCL 10 MG TABLET GT SCH ×3 (05:28→21:08)
[2023-04-14] MEDS: BACLOFEN 20 MG TABLET GT SCH ×3 (05:28→21:07)
[2023-04-14] MEDS: MAGNESIUM OXIDE 400 MG TABLET GT SCH (05:28)
[2023-04-14] MEDS: METOCLOPRAMIDE HCL 5 MG TABLET GT SCH ×3 (05:28→21:08)
[2023-04-14] MEDS: OMEPRAZOLE 20 MG CAPSULE.DR GT SCH (05:28)
[2023-04-14 07:27] VITALS: TEMP 96
[2023-04-14] MEDS: HYDROGEN PEROXIDE 3% 118 ML BOTTLE TP SCH ×2 (07:58→19:19)
[2023-04-14] MEDS: levETIRAcetam 500 MG/5 ML LIQUID UDC GT SCH ×2 (08:40→21:05)
[2023-04-14] MEDS: FERROUS SULFATE 330 MG/7.5 ML UDC- FOR SA ONLY GT SCH ×2 (08:40→21:04)
[2023-04-14] MEDS: ACIDOPHILUS/BULGARICUS CHEW TAB GT SCH ×2 (08:40→21:04)
[2023-04-14] MEDS: PHENYTOIN 100 MG/4 ML UDC GT SCH ×2 (08:40→21:03)
[2023-04-14] MEDS: FUROSEMIDE 10 MG/ML GT SCH (08:40)
[2023-04-14] MEDS: REMEDY ESSENTIAL ZINC PASTE 113 GM TP SCH ×2 (08:40→21:07)
[2023-04-14] MEDS: POTASSIUM CHLORIDE 40 MEQ/30 ML LIQUID UDC GT SCH (08:40)
[2023-04-14 19:57] VITALS: TEMP 97.7
[2023-04-14] MEDS: FOLIC ACID 1 MG TABLET GT SCH (21:05)
[2023-04-14] MEDS: THIAMINE HCL 100 MG TABLET GT SCH (21:06)
[2023-04-14] MEDS: CHOLECALCIFEROL 1,000 UNIT TABLET GT SCH (21:07)
[2023-04-15] MEDS: ALBUTEROL SULFATE 2.5 MG/3 ML NEBU NEB SCH ×6 (03:51→23:23)
[2023-04-15] MEDS: IPRATROPIUM BROMIDE 0.5 MG/2.5 ML NEBU NEB SCH ×6 (03:51→23:23)
[2023-04-15] MEDS: VITAL AF 1.2 1,000 ML LIQUID GT PRN (04:49)
[2023-04-15] MEDS: MAGNESIUM OXIDE 400 MG TABLET GT SCH (06:09)
[2023-04-15] MEDS: BACLOFEN 20 MG TABLET GT SCH ×3 (06:09→22:15)
[2023-04-15] MEDS: METOCLOPRAMIDE HCL 5 MG TABLET GT SCH ×3 (06:10→22:15)
[2023-04-15] MEDS: OMEPRAZOLE 20 MG CAPSULE.DR GT SCH (06:10)
[2023-04-15] MEDS: MIDODRINE HCL 10 MG TABLET GT SCH ×3 (06:10→22:15)
[2023-04-15] MEDS: HYDROGEN PEROXIDE 3% 118 ML BOTTLE TP SCH ×2 (07:29→19:03)
[2023-04-15 07:31] VITALS: TEMP 97.1
[2023-04-15] MEDS: FUROSEMIDE 10 MG/ML GT SCH (09:00)
[2023-04-15] MEDS: ACIDOPHILUS/BULGARICUS CHEW TAB GT SCH ×2 (09:00→20:43)
[2023-04-15] MEDS: PHENYTOIN 100 MG/4 ML UDC GT SCH ×2 (09:00→20:41)
[2023-04-15] MEDS: levETIRAcetam 500 MG/5 ML LIQUID UDC GT SCH ×2 (09:00→20:44)
[2023-04-15] MEDS: REMEDY ESSENTIAL ZINC PASTE 113 GM TP SCH ×2 (09:00→20:48)
[2023-04-15] MEDS: POTASSIUM CHLORIDE 40 MEQ/30 ML LIQUID UDC GT SCH (09:00)
[2023-04-15] MEDS: FERROUS SULFATE 330 MG/7.5 ML UDC- FOR SA ONLY GT SCH ×2 (09:00→20:43)
[2023-04-15 20:00] VITALS: TEMP 97.8
[2023-04-15] MEDS: MIRALAX 17 GM POWD.PACK GT SCH (20:44)
[2023-04-15] MEDS: FOLIC ACID 1 MG TABLET GT SCH (20:44)
[2023-04-15] MEDS: THIAMINE HCL 100 MG TABLET GT SCH (20:45)
[2023-04-15] MEDS: CHOLECALCIFEROL 1,000 UNIT TABLET GT SCH (20:46)
[2023-04-16] MEDS: ALBUTEROL SULFATE 2.5 MG/3 ML NEBU NEB SCH ×6 (03:26→23:21)
[2023-04-16] MEDS: IPRATROPIUM BROMIDE 0.5 MG/2.5 ML NEBU NEB SCH ×6 (03:26→23:21)
[2023-04-16] MEDS: BACLOFEN 20 MG TABLET GT SCH ×3 (05:43→22:39)
[2023-04-16] MEDS: MAGNESIUM OXIDE 400 MG TABLET GT SCH (05:43)
[2023-04-16] MEDS: OMEPRAZOLE 20 MG CAPSULE.DR GT SCH (05:43)
[2023-04-16] MEDS: MIDODRINE HCL 10 MG TABLET GT SCH ×3 (05:43→22:37)
[2023-04-16] MEDS: METOCLOPRAMIDE HCL 5 MG TABLET GT SCH ×3 (05:43→22:37)
[2023-04-16 08:00] VITALS: TEMP 98
[2023-04-16] MEDS: PHENYTOIN 100 MG/4 ML UDC GT SCH ×2 (09:00→21:00)
[2023-04-16] MEDS: HYDROGEN PEROXIDE 3% 118 ML BOTTLE TP SCH ×2 (09:00→19:08)
[2023-04-16] MEDS: FERROUS SULFATE 330 MG/7.5 ML UDC- FOR SA ONLY GT SCH ×2 (09:39→21:00)
[2023-04-16] MEDS: FUROSEMIDE 10 MG/ML GT SCH (09:40)
[2023-04-16] MEDS: ACIDOPHILUS/BULGARICUS CHEW TAB GT SCH ×2 (09:40→21:00)
[2023-04-16] MEDS: REMEDY ESSENTIAL ZINC PASTE 113 GM TP SCH ×2 (09:42→21:00)
[2023-04-16] MEDS: levETIRAcetam 500 MG/5 ML LIQUID UDC GT SCH ×2 (09:42→21:00)
[2023-04-16] MEDS: POTASSIUM CHLORIDE 40 MEQ/30 ML LIQUID UDC GT SCH (09:42)
[2023-04-16] MEDS: VITAL AF 1.2 1,000 ML LIQUID GT PRN (17:45)
[2023-04-16 19:47] VITALS: TEMP 97.7
[2023-04-16] MEDS: THIAMINE HCL 100 MG TABLET GT SCH (21:00)
[2023-04-16] MEDS: FOLIC ACID 1 MG TABLET GT SCH (21:00)
[2023-04-16] MEDS: CHOLECALCIFEROL 1,000 UNIT TABLET GT SCH (21:00)
[2023-04-17] MEDS: IPRATROPIUM BROMIDE 0.5 MG/2.5 ML NEBU NEB SCH ×6 (04:00→23:08)
[2023-04-17] MEDS: ALBUTEROL SULFATE 2.5 MG/3 ML NEBU NEB SCH ×6 (04:00→23:08)
[2023-04-17] MEDS: METOCLOPRAMIDE HCL 5 MG TABLET GT SCH ×3 (06:00→21:02)
[2023-04-17] MEDS: OMEPRAZOLE 20 MG CAPSULE.DR GT SCH (06:00)
[2023-04-17] MEDS: MIDODRINE HCL 10 MG TABLET GT SCH ×3 (06:00→21:02)
[2023-04-17] MEDS: BACLOFEN 20 MG TABLET GT SCH ×3 (06:56→21:02)
[2023-04-17] MEDS: MAGNESIUM OXIDE 400 MG TABLET GT SCH (06:58)
[2023-04-17] MEDS: HYDROGEN PEROXIDE 3% 118 ML BOTTLE TP SCH ×2 (07:23→19:12)
[2023-04-17 07:52] VITALS: TEMP 96
[2023-04-17] MEDS: PHENYTOIN 100 MG/4 ML UDC GT SCH ×2 (09:31→21:01)
[2023-04-17] MEDS: FERROUS SULFATE 330 MG/7.5 ML UDC- FOR SA ONLY GT SCH ×2 (09:34→21:01)
[2023-04-17] MEDS: levETIRAcetam 500 MG/5 ML LIQUID UDC GT SCH ×2 (09:35→21:02)
[2023-04-17] MEDS: ACIDOPHILUS/BULGARICUS CHEW TAB GT SCH ×2 (09:35→21:01)
[2023-04-17] MEDS: FUROSEMIDE 10 MG/ML GT SCH (09:35)
[2023-04-17] MEDS: REMEDY ESSENTIAL ZINC PASTE 113 GM TP SCH ×2 (09:37→21:02)
[2023-04-17] MEDS: POTASSIUM CHLORIDE 40 MEQ/30 ML LIQUID UDC GT SCH (09:37)
[2023-04-17 20:00] VITALS: TEMP 97; TEMP 98.3
[2023-04-17] MEDS: FOLIC ACID 1 MG TABLET GT SCH (21:01)
[2023-04-17] MEDS: CHOLECALCIFEROL 1,000 UNIT TABLET GT SCH (21:02)
[2023-04-17] MEDS: MIRALAX 17 GM POWD.PACK GT SCH (21:02)
[2023-04-17] MEDS: THIAMINE HCL 100 MG TABLET GT SCH (21:02)
[2023-04-18] MEDS: ALBUTEROL SULFATE 2.5 MG/3 ML NEBU NEB SCH ×6 (03:33→23:04)
[2023-04-18] MEDS: IPRATROPIUM BROMIDE 0.5 MG/2.5 ML NEBU NEB SCH ×6 (03:33→23:04)
[2023-04-18] MEDS: BACLOFEN 20 MG TABLET GT SCH ×3 (05:18→21:24)
[2023-04-18] MEDS: MAGNESIUM OXIDE 400 MG TABLET GT SCH (05:18)
[2023-04-18] MEDS: METOCLOPRAMIDE HCL 5 MG TABLET GT SCH ×3 (05:19→21:30)
[2023-04-18] MEDS: OMEPRAZOLE 20 MG CAPSULE.DR GT SCH (05:19)
[2023-04-18] MEDS: MIDODRINE HCL 10 MG TABLET GT SCH ×3 (05:19→21:30)
[2023-04-18] MEDS: HYDROGEN PEROXIDE 3% 118 ML BOTTLE TP SCH ×2 (07:35→19:10)
[2023-04-18 08:00] VITALS: TEMP 98.6
[2023-04-18] MEDS: FERROUS SULFATE 330 MG/7.5 ML UDC- FOR SA ONLY GT SCH ×2 (09:32→21:24)
[2023-04-18] MEDS: ACIDOPHILUS/BULGARICUS CHEW TAB GT SCH ×2 (09:32→21:24)
[2023-04-18] MEDS: PHENYTOIN 100 MG/4 ML UDC GT SCH ×2 (09:32→21:24)
[2023-04-18] MEDS: FUROSEMIDE 10 MG/ML GT SCH (09:32)
[2023-04-18] MEDS: levETIRAcetam 500 MG/5 ML LIQUID UDC GT SCH ×2 (09:32→21:24)
[2023-04-18] MEDS: POTASSIUM CHLORIDE 40 MEQ/30 ML LIQUID UDC GT SCH (09:34)
[2023-04-18] MEDS: REMEDY ESSENTIAL ZINC PASTE 113 GM TP SCH ×2 (09:34→21:24)
[2023-04-18 20:00] VITALS: TEMP 97.4
[2023-04-18] MEDS: CHOLECALCIFEROL 1,000 UNIT TABLET GT SCH (21:24)
[2023-04-18] MEDS: FOLIC ACID 1 MG TABLET GT SCH (21:24)
[2023-04-18] MEDS: THIAMINE HCL 100 MG TABLET GT SCH (21:24)
[2023-04-19] MEDS: ALBUTEROL SULFATE 2.5 MG/3 ML NEBU NEB SCH ×6 (03:33→23:07)
[2023-04-19] MEDS: IPRATROPIUM BROMIDE 0.5 MG/2.5 ML NEBU NEB SCH ×6 (03:33→23:07)
[2023-04-19] MEDS: MAGNESIUM OXIDE 400 MG TABLET GT SCH (05:53)
[2023-04-19] MEDS: BACLOFEN 20 MG TABLET GT SCH ×3 (05:53→21:27)
[2023-04-19] MEDS: METOCLOPRAMIDE HCL 5 MG TABLET GT SCH ×3 (05:54→21:27)
[2023-04-19] MEDS: MIDODRINE HCL 10 MG TABLET GT SCH ×3 (05:54→21:27)
[2023-04-19] MEDS: OMEPRAZOLE 20 MG CAPSULE.DR GT SCH (05:54)
[2023-04-19 07:47] VITALS: TEMP 96.7
[2023-04-19] MEDS: HYDROGEN PEROXIDE 3% 118 ML BOTTLE TP SCH ×2 (07:54→19:37)
[2023-04-19] MEDS: PHENYTOIN 100 MG/4 ML UDC GT SCH ×2 (08:46→21:26)
[2023-04-19] MEDS: ACIDOPHILUS/BULGARICUS CHEW TAB GT SCH ×2 (08:46→21:26)
[2023-04-19] MEDS: FUROSEMIDE 10 MG/ML GT SCH (08:46)
[2023-04-19] MEDS: FERROUS SULFATE 330 MG/7.5 ML UDC- FOR SA ONLY GT SCH ×2 (08:46→21:26)
[2023-04-19] MEDS: levETIRAcetam 500 MG/5 ML LIQUID UDC GT SCH ×2 (08:47→21:26)
[2023-04-19] MEDS: POTASSIUM CHLORIDE 40 MEQ/30 ML LIQUID UDC GT SCH (08:47)
[2023-04-19] MEDS: REMEDY ESSENTIAL ZINC PASTE 113 GM TP SCH ×2 (08:48→21:27)
[2023-04-19] MEDS: VITAL AF 1.2 1,000 ML LIQUID GT PRN (16:06)
[2023-04-19 20:00] VITALS: TEMP 98.6
[2023-04-19] MEDS: THIAMINE HCL 100 MG TABLET GT SCH (21:26)
[2023-04-19] MEDS: FOLIC ACID 1 MG TABLET GT SCH (21:26)
[2023-04-19] MEDS: CHOLECALCIFEROL 1,000 UNIT TABLET GT SCH (21:26)
[2023-04-19] MEDS: TRIAMCINOLONE ACET 0.1% CREAM 15 GM TUBE TP SCH ×2 (21:26)
[2023-04-19] MEDS: COD LIVER OIL/ZINC OXIDE OINT 113 GM TUBE TP SCH ×2 (21:26)
[2023-04-19] MEDS: NYSTATIN CREAM 30 GM TUBE TP SCH ×2 (21:26)
[2023-04-19] MEDS: NEOMY/BACITRA/POLYMYXIN B OINT UD PACKET TP SCH (21:27)
[2023-04-20] MEDS: IPRATROPIUM BROMIDE 0.5 MG/2.5 ML NEBU NEB SCH ×6 (03:29→23:10)
[2023-04-20] MEDS: ALBUTEROL SULFATE 2.5 MG/3 ML NEBU NEB SCH ×6 (03:29→23:10)
[2023-04-20] MEDS: OMEPRAZOLE 20 MG CAPSULE.DR GT SCH (05:39)
[2023-04-20] MEDS: MIDODRINE HCL 10 MG TABLET GT SCH ×3 (05:39→22:48)
[2023-04-20] MEDS: METOCLOPRAMIDE HCL 5 MG TABLET GT SCH ×3 (05:39→22:48)
[2023-04-20] MEDS: MAGNESIUM OXIDE 400 MG TABLET GT SCH (05:39)
[2023-04-20] MEDS: BACLOFEN 20 MG TABLET GT SCH ×3 (05:39→22:48)
[2023-04-20 07:54] VITALS: TEMP 97.2
[2023-04-20] MEDS: FERROUS SULFATE 330 MG/7.5 ML UDC- FOR SA ONLY GT SCH ×2 (09:00→21:00)
[2023-04-20] MEDS: COD LIVER OIL/ZINC OXIDE OINT 113 GM TUBE TP SCH ×4 (09:00→22:00)
[2023-04-20] MEDS: TRIAMCINOLONE ACET 0.1% CREAM 15 GM TUBE TP SCH ×4 (09:00→22:00)
[2023-04-20] MEDS: levETIRAcetam 500 MG/5 ML LIQUID UDC GT SCH ×2 (09:00→21:00)
[2023-04-20] MEDS: NYSTATIN CREAM 30 GM TUBE TP SCH ×4 (09:00→22:00)
[2023-04-20] MEDS: NEOMY/BACITRA/POLYMYXIN B OINT UD PACKET TP SCH ×2 (09:00→22:00)
[2023-04-20] MEDS: ACIDOPHILUS/BULGARICUS CHEW TAB GT SCH ×2 (09:00→21:00)
[2023-04-20] MEDS: REMEDY ESSENTIAL ZINC PASTE 113 GM TP SCH ×2 (09:00→22:00)
[2023-04-20] MEDS: POTASSIUM CHLORIDE 40 MEQ/30 ML LIQUID UDC GT SCH (09:00)
[2023-04-20] MEDS: PHENYTOIN 100 MG/4 ML UDC GT SCH ×2 (09:00→21:00)
[2023-04-20] MEDS: FUROSEMIDE 10 MG/ML GT SCH (09:00)
[2023-04-20] MEDS: HYDROGEN PEROXIDE 3% 118 ML BOTTLE TP SCH ×2 (09:32→21:58)
[2023-04-20 20:02] VITALS: TEMP 97.5
[2023-04-20] MEDS: THIAMINE HCL 100 MG TABLET GT SCH (21:00)
[2023-04-20] MEDS: CHOLECALCIFEROL 1,000 UNIT TABLET GT SCH (21:00)
[2023-04-20] MEDS: MIRALAX 17 GM POWD.PACK GT SCH (21:00)
[2023-04-20] MEDS: FOLIC ACID 1 MG TABLET GT SCH (21:00)
[2023-04-21 00:25] VITALS: TEMP 97.4
[2023-04-21] MEDS: VITAL AF 1.2 1,000 ML LIQUID GT PRN (02:46)
[2023-04-21] MEDS: IPRATROPIUM BROMIDE 0.5 MG/2.5 ML NEBU NEB SCH ×6 (04:03→23:27)
[2023-04-21] MEDS: ALBUTEROL SULFATE 2.5 MG/3 ML NEBU NEB SCH ×6 (04:04→23:27)
[2023-04-21] MEDS: OMEPRAZOLE 20 MG CAPSULE.DR GT SCH (05:55)
[2023-04-21] MEDS: MAGNESIUM OXIDE 400 MG TABLET GT SCH (05:55)
[2023-04-21] MEDS: BACLOFEN 20 MG TABLET GT SCH ×3 (05:55→22:36)
[2023-04-21] MEDS: METOCLOPRAMIDE HCL 5 MG TABLET GT SCH ×3 (05:55→22:37)
[2023-04-21] MEDS: MIDODRINE HCL 10 MG TABLET GT SCH ×3 (06:00→22:37)
[2023-04-21 06:17] LABS: BASOPHILS % (AUTO) 0.4 % (0.0-2.0); EOSINOPHILS # (AUTO) 0.3 K/uL (0.0-0.7); HEMATOCRIT 30.3 % (31.2-41.9); HEMOGLOBIN 10.2 g/dL (10.9-14.3); LYMPHOCYTES # (AUTO) 2.1 K/uL (0.8-4.8); LYMPHOCYTES % (AUTO) 20.5 % (20.5-51.5); MEAN CORPUSCULAR HEMOGLOBIN 29.7 uug (24.7-32.8); MEAN CORPUSCULAR HGB CONC 34 g/dL (32.3-35.6); MEAN CORPUSCULAR VOLUME 88.3 fL (75.5-95.3); MONOCYTES # (AUTO) 0.7 K/uL (0.1-1.30); MONOCYTES % (AUTO) 6.6 % (0.0-11.0); NEUTROPHILS # (AUTO) 7.1 K/uL (1.8-8.9); NEUTROPHILS % (AUTO) 69.5 % (38.5-71.5); PLATELET COUNT (AUTO) 197 K/uL (179-408); RED BLOOD CELL COUNT(AUTO) 3.43 MIL/uL (3.63-4.92); WHITE BLOOD COUNT (AUTO) 10.1 K/uL (3.8-11.8)
[2023-04-21 06:56] LABS: DIFFERENTIAL COMMENT 1
[2023-04-21 06:57] LABS: CALCIUM 8.8 mg/dL (8.5-10.1); CREATININE 0.6 mg/dL (0.6-1.3); PHOSPHOROUS 3.8 mg/dL (2.5-4.9)
[2023-04-21 07:01] LABS: POTASSIUM 3.6 mmol/L (3.5-5.1)
[2023-04-21 07:59] VITALS: TEMP 98.7
[2023-04-21] MEDS: HYDROGEN PEROXIDE 3% 118 ML BOTTLE TP SCH ×2 (08:13→22:34)
[2023-04-21] MEDS: PHENYTOIN 100 MG/4 ML UDC GT SCH ×2 (09:47→21:30)
[2023-04-21] MEDS: FERROUS SULFATE 330 MG/7.5 ML UDC- FOR SA ONLY GT SCH ×2 (09:48→22:00)
[2023-04-21] MEDS: ACIDOPHILUS/BULGARICUS CHEW TAB GT SCH ×2 (09:49→22:00)
[2023-04-21] MEDS: NYSTATIN CREAM 30 GM TUBE TP SCH ×4 (09:50→22:00)
[2023-04-21] MEDS: REMEDY ESSENTIAL ZINC PASTE 113 GM TP SCH ×2 (09:50→22:00)
[2023-04-21] MEDS: TRIAMCINOLONE ACET 0.1% CREAM 15 GM TUBE TP SCH ×4 (09:50→22:00)
[2023-04-21] MEDS: NEOMY/BACITRA/POLYMYXIN B OINT UD PACKET TP SCH ×2 (09:50→22:00)
[2023-04-21] MEDS: COD LIVER OIL/ZINC OXIDE OINT 113 GM TUBE TP SCH ×4 (09:50→22:00)
[2023-04-21] MEDS: POTASSIUM CHLORIDE 40 MEQ/30 ML LIQUID UDC GT SCH (09:51)
[2023-04-21] MEDS: levETIRAcetam 500 MG/5 ML LIQUID UDC GT SCH ×2 (09:59→22:00)
[2023-04-21] MEDS: FUROSEMIDE 10 MG/ML GT SCH (09:59)
[2023-04-21 19:49] VITALS: TEMP 97.1
[2023-04-21] MEDS: FOLIC ACID 1 MG TABLET GT SCH (22:00)
[2023-04-21] MEDS: CHOLECALCIFEROL 1,000 UNIT TABLET GT SCH (22:00)
[2023-04-21] MEDS: THIAMINE HCL 100 MG TABLET GT SCH (22:00)
[2023-04-22] MEDS: IPRATROPIUM BROMIDE 0.5 MG/2.5 ML NEBU NEB SCH ×6 (03:06→23:30)
[2023-04-22] MEDS: ALBUTEROL SULFATE 2.5 MG/3 ML NEBU NEB SCH ×6 (03:07→23:30)
[2023-04-22] MEDS: MAGNESIUM OXIDE 400 MG TABLET GT SCH (06:14)
[2023-04-22] MEDS: BACLOFEN 20 MG TABLET GT SCH ×3 (06:14→22:00)
[2023-04-22] MEDS: METOCLOPRAMIDE HCL 5 MG TABLET GT SCH ×3 (06:15→22:00)
[2023-04-22] MEDS: MIDODRINE HCL 10 MG TABLET GT SCH ×3 (06:15→22:00)
[2023-04-22] MEDS: OMEPRAZOLE 20 MG CAPSULE.DR GT SCH (06:15)
[2023-04-22] MEDS: VITAL AF 1.2 1,000 ML LIQUID GT PRN (06:15)
[2023-04-22 07:43] VITALS: TEMP 97.4
[2023-04-22] MEDS: HYDROGEN PEROXIDE 3% 118 ML BOTTLE TP SCH ×2 (09:00→20:53)
[2023-04-22] MEDS: levETIRAcetam 500 MG/5 ML LIQUID UDC GT SCH ×2 (09:00→21:00)
[2023-04-22] MEDS: TRIAMCINOLONE ACET 0.1% CREAM 15 GM TUBE TP SCH ×4 (09:00→21:00)
[2023-04-22] MEDS: REMEDY ESSENTIAL ZINC PASTE 113 GM TP SCH ×2 (09:00→21:00)
[2023-04-22] MEDS: PHENYTOIN 100 MG/4 ML UDC GT SCH ×2 (09:00→21:00)
[2023-04-22] MEDS: ACIDOPHILUS/BULGARICUS CHEW TAB GT SCH ×2 (09:00→21:00)
[2023-04-22] MEDS: FERROUS SULFATE 330 MG/7.5 ML UDC- FOR SA ONLY GT SCH ×2 (09:00→21:00)
[2023-04-22] MEDS: FUROSEMIDE 10 MG/ML GT SCH (09:00)
[2023-04-22] MEDS: POTASSIUM CHLORIDE 40 MEQ/30 ML LIQUID UDC GT SCH (09:00)
[2023-04-22] MEDS: COD LIVER OIL/ZINC OXIDE OINT 113 GM TUBE TP SCH ×4 (09:00→21:00)
[2023-04-22] MEDS: NEOMY/BACITRA/POLYMYXIN B OINT UD PACKET TP SCH ×2 (09:00→21:00)
[2023-04-22] MEDS: NYSTATIN CREAM 30 GM TUBE TP SCH ×4 (09:00→21:00)
[2023-04-22] MEDS ORDERED: POTASSIUM CHLORIDE 40 MEQ/30 ML LIQUID UDC GT ONE (20:00)
[2023-04-22 20:15] VITALS: BP 102/53; TEMP 97; O2SAT 100
[2023-04-22] MEDS: CHOLECALCIFEROL 1,000 UNIT TABLET GT SCH (21:00)
[2023-04-22] MEDS: MIRALAX 17 GM POWD.PACK GT SCH (21:00)
[2023-04-22] MEDS: FOLIC ACID 1 MG TABLET GT SCH (21:00)
[2023-04-22] MEDS: THIAMINE HCL 100 MG TABLET GT SCH (21:00)
[2023-04-23] MEDS: IPRATROPIUM BROMIDE 0.5 MG/2.5 ML NEBU NEB SCH ×6 (03:27→23:35)
[2023-04-23] MEDS: ALBUTEROL SULFATE 2.5 MG/3 ML NEBU NEB SCH ×6 (03:27→23:35)
[2023-04-23] MEDS: MIDODRINE HCL 10 MG TABLET GT SCH ×3 (06:00→22:00)
[2023-04-23] MEDS: METOCLOPRAMIDE HCL 5 MG TABLET GT SCH ×3 (06:59→22:00)
[2023-04-23] MEDS: OMEPRAZOLE 20 MG CAPSULE.DR GT SCH (06:59)
[2023-04-23] MEDS: BACLOFEN 20 MG TABLET GT SCH ×3 (06:59→22:00)
[2023-04-23] MEDS: MAGNESIUM OXIDE 400 MG TABLET GT SCH (06:59)
[2023-04-23] MEDS: HYDROGEN PEROXIDE 3% 118 ML BOTTLE TP SCH ×2 (07:33→19:17)
[2023-04-23 07:34] VITALS: TEMP 97.6
[2023-04-23] MEDS: NYSTATIN CREAM 30 GM TUBE TP SCH ×4 (09:00→21:00)
[2023-04-23] MEDS: PHENYTOIN 100 MG/4 ML UDC GT SCH ×2 (09:00→21:00)
[2023-04-23] MEDS: POTASSIUM CHLORIDE 40 MEQ/30 ML LIQUID UDC GT SCH (09:00)
[2023-04-23] MEDS: TRIAMCINOLONE ACET 0.1% CREAM 15 GM TUBE TP SCH ×4 (09:00→21:00)
[2023-04-23] MEDS: FUROSEMIDE 10 MG/ML GT SCH (09:00)
[2023-04-23] MEDS: FERROUS SULFATE 330 MG/7.5 ML UDC- FOR SA ONLY GT SCH ×2 (09:00→21:00)
[2023-04-23] MEDS: NEOMY/BACITRA/POLYMYXIN B OINT UD PACKET TP SCH ×2 (09:00→21:00)
[2023-04-23] MEDS: COD LIVER OIL/ZINC OXIDE OINT 113 GM TUBE TP SCH ×4 (09:00→21:00)
[2023-04-23] MEDS: REMEDY ESSENTIAL ZINC PASTE 113 GM TP SCH ×2 (09:00→21:00)
[2023-04-23] MEDS: ACIDOPHILUS/BULGARICUS CHEW TAB GT SCH ×2 (09:00→21:00)
[2023-04-23] MEDS: levETIRAcetam 500 MG/5 ML LIQUID UDC GT SCH ×2 (09:00→21:00)
[2023-04-23] MEDS: VITAL AF 1.2 1,000 ML LIQUID GT PRN (15:25)
[2023-04-23 20:00] VITALS: TEMP 97.7
[2023-04-23] MEDS: CHOLECALCIFEROL 1,000 UNIT TABLET GT SCH (21:00)
[2023-04-23] MEDS: THIAMINE HCL 100 MG TABLET GT SCH (21:00)
[2023-04-23] MEDS: FOLIC ACID 1 MG TABLET GT SCH (21:00)
[2023-04-24] MEDS: ALBUTEROL SULFATE 2.5 MG/3 ML NEBU NEB SCH ×6 (01:46→19:09)
[2023-04-24] MEDS: IPRATROPIUM BROMIDE 0.5 MG/2.5 ML NEBU NEB SCH ×6 (01:46→19:09)
[2023-04-24] MEDS: BACLOFEN 20 MG TABLET GT SCH ×3 (06:16→22:04)
[2023-04-24] MEDS: MAGNESIUM OXIDE 400 MG TABLET GT SCH (06:16)
[2023-04-24] MEDS: METOCLOPRAMIDE HCL 5 MG TABLET GT SCH ×3 (06:18→22:05)
[2023-04-24] MEDS: MIDODRINE HCL 10 MG TABLET GT SCH ×3 (06:18→22:07)
[2023-04-24] MEDS: OMEPRAZOLE 20 MG CAPSULE.DR GT SCH (06:18)
[2023-04-24 08:18] VITALS: TEMP 98.4
[2023-04-24] MEDS: REMEDY ESSENTIAL ZINC PASTE 113 GM TP SCH ×2 (09:00→21:00)
[2023-04-24] MEDS: POTASSIUM CHLORIDE 40 MEQ/30 ML LIQUID UDC GT SCH (09:00)
[2023-04-24] MEDS: NYSTATIN CREAM 30 GM TUBE TP SCH ×4 (09:00→21:00)
[2023-04-24] MEDS: FUROSEMIDE 10 MG/ML GT SCH (09:00)
[2023-04-24] MEDS: NEOMY/BACITRA/POLYMYXIN B OINT UD PACKET TP SCH ×2 (09:00→21:00)
[2023-04-24] MEDS: FERROUS SULFATE 330 MG/7.5 ML UDC- FOR SA ONLY GT SCH ×2 (09:00→21:54)
[2023-04-24] MEDS: TRIAMCINOLONE ACET 0.1% CREAM 15 GM TUBE TP SCH ×4 (09:00→21:00)
[2023-04-24] MEDS: levETIRAcetam 500 MG/5 ML LIQUID UDC GT SCH ×2 (09:00→21:00)
[2023-04-24] MEDS: HYDROGEN PEROXIDE 3% 118 ML BOTTLE TP SCH ×2 (09:00→19:33)
[2023-04-24] MEDS: COD LIVER OIL/ZINC OXIDE OINT 113 GM TUBE TP SCH ×4 (09:00→21:00)
[2023-04-24] MEDS: PHENYTOIN 100 MG/4 ML UDC GT SCH ×2 (09:00→21:54)
[2023-04-24] MEDS: ACIDOPHILUS/BULGARICUS CHEW TAB GT SCH ×2 (09:00→21:56)
[2023-04-24] MEDS: THIAMINE HCL 100 MG TABLET GT SCH (21:00)
[2023-04-24] MEDS: MIRALAX 17 GM POWD.PACK GT SCH (21:00)
[2023-04-24] MEDS: CHOLECALCIFEROL 1,000 UNIT TABLET GT SCH (21:00)
[2023-04-24] MEDS: FOLIC ACID 1 MG TABLET GT SCH (21:00)
[2023-04-25] MEDS: IPRATROPIUM BROMIDE 0.5 MG/2.5 ML NEBU NEB SCH ×7 (01:46→23:30)
[2023-04-25] MEDS: ALBUTEROL SULFATE 2.5 MG/3 ML NEBU NEB SCH ×6 (03:14→23:30)
[2023-04-25] MEDS: MIDODRINE HCL 10 MG TABLET GT SCH ×3 (06:00→21:51)
[2023-04-25] MEDS: BACLOFEN 20 MG TABLET GT SCH ×3 (06:00→21:51)
[2023-04-25] MEDS: OMEPRAZOLE 20 MG CAPSULE.DR GT SCH (06:00)
[2023-04-25] MEDS: METOCLOPRAMIDE HCL 5 MG TABLET GT SCH ×3 (06:00→21:51)
[2023-04-25] MEDS: MAGNESIUM OXIDE 400 MG TABLET GT SCH (06:00)
[2023-04-25 08:09] VITALS: TEMP 97.6
[2023-04-25] MEDS: HYDROGEN PEROXIDE 3% 118 ML BOTTLE TP SCH ×2 (08:54→19:13)
[2023-04-25] MEDS: NYSTATIN CREAM 30 GM TUBE TP SCH ×4 (09:00→21:51)
[2023-04-25] MEDS: NEOMY/BACITRA/POLYMYXIN B OINT UD PACKET TP SCH ×2 (09:00→21:51)
[2023-04-25] MEDS: TRIAMCINOLONE ACET 0.1% CREAM 15 GM TUBE TP SCH ×4 (09:00→21:51)
[2023-04-25] MEDS: REMEDY ESSENTIAL ZINC PASTE 113 GM TP SCH ×2 (09:00→21:51)
[2023-04-25] MEDS: COD LIVER OIL/ZINC OXIDE OINT 113 GM TUBE TP SCH ×4 (09:00→21:51)
[2023-04-25] MEDS: FERROUS SULFATE 330 MG/7.5 ML UDC- FOR SA ONLY GT SCH ×2 (09:24→21:47)
[2023-04-25] MEDS: PHENYTOIN 100 MG/4 ML UDC GT SCH ×2 (09:24→21:47)
[2023-04-25] MEDS: FUROSEMIDE 10 MG/ML GT SCH (09:25)
[2023-04-25] MEDS: ACIDOPHILUS/BULGARICUS CHEW TAB GT SCH ×2 (09:25→21:47)
[2023-04-25] MEDS: levETIRAcetam 500 MG/5 ML LIQUID UDC GT SCH ×2 (09:25→21:52)
[2023-04-25] MEDS: POTASSIUM CHLORIDE 40 MEQ/30 ML LIQUID UDC GT SCH (09:26)
[2023-04-25 20:00] VITALS: TEMP 96.9
[2023-04-25] MEDS: FOLIC ACID 1 MG TABLET GT SCH (21:50)
[2023-04-25] MEDS: THIAMINE HCL 100 MG TABLET GT SCH (21:51)
[2023-04-25] MEDS: CHOLECALCIFEROL 1,000 UNIT TABLET GT SCH (21:51)
[2023-04-26] MEDS: ALBUTEROL SULFATE 2.5 MG/3 ML NEBU NEB SCH ×6 (03:18→23:14)
[2023-04-26] MEDS: IPRATROPIUM BROMIDE 0.5 MG/2.5 ML NEBU NEB SCH ×6 (03:18→23:14)
[2023-04-26] MEDS: BACLOFEN 20 MG TABLET GT SCH ×3 (06:16→21:16)
[2023-04-26] MEDS: MAGNESIUM OXIDE 400 MG TABLET GT SCH (06:17)
[2023-04-26] MEDS: METOCLOPRAMIDE HCL 5 MG TABLET GT SCH ×3 (06:17→21:16)
[2023-04-26] MEDS: MIDODRINE HCL 10 MG TABLET GT SCH ×3 (06:17→21:16)
[2023-04-26] MEDS: OMEPRAZOLE 20 MG CAPSULE.DR GT SCH (06:17)
[2023-04-26] MEDS: HYDROGEN PEROXIDE 3% 118 ML BOTTLE TP SCH ×2 (08:19→19:23)
[2023-04-26] MEDS: TRIAMCINOLONE ACET 0.1% CREAM 15 GM TUBE TP SCH ×4 (09:00→21:15)
[2023-04-26] MEDS: NYSTATIN CREAM 30 GM TUBE TP SCH ×4 (09:00→21:15)
[2023-04-26] MEDS: REMEDY ESSENTIAL ZINC PASTE 113 GM TP SCH ×2 (09:00→21:15)
[2023-04-26] MEDS: COD LIVER OIL/ZINC OXIDE OINT 113 GM TUBE TP SCH ×4 (09:00→21:15)
[2023-04-26] MEDS: NEOMY/BACITRA/POLYMYXIN B OINT UD PACKET TP SCH ×2 (09:00→21:15)
[2023-04-26] MEDS: POTASSIUM CHLORIDE 40 MEQ/30 ML LIQUID UDC GT SCH (09:00)
[2023-04-26] MEDS: PHENYTOIN 100 MG/4 ML UDC GT SCH ×2 (09:53→21:10)
[2023-04-26] MEDS: FERROUS SULFATE 330 MG/7.5 ML UDC- FOR SA ONLY GT SCH ×2 (09:55→21:11)
[2023-04-26] MEDS: ACIDOPHILUS/BULGARICUS CHEW TAB GT SCH ×2 (09:55→21:11)
[2023-04-26] MEDS: FUROSEMIDE 10 MG/ML GT SCH (09:57)
[2023-04-26] MEDS: levETIRAcetam 500 MG/5 ML LIQUID UDC GT SCH ×2 (09:58→21:14)
[2023-04-26 11:41] VITALS: TEMP 97
[2023-04-26] MEDS: VITAL AF 1.2 1,000 ML LIQUID GT PRN (19:06)
[2023-04-26 20:00] VITALS: TEMP 97
[2023-04-26] MEDS: FOLIC ACID 1 MG TABLET GT SCH (21:11)
[2023-04-26] MEDS: THIAMINE HCL 100 MG TABLET GT SCH (21:15)
[2023-04-26] MEDS: CHOLECALCIFEROL 1,000 UNIT TABLET GT SCH (21:15)
[2023-04-27] MEDS: IPRATROPIUM BROMIDE 0.5 MG/2.5 ML NEBU NEB SCH ×7 (04:12→23:08)
[2023-04-27] MEDS: ALBUTEROL SULFATE 2.5 MG/3 ML NEBU NEB SCH ×7 (04:12→23:08)
[2023-04-27] MEDS: MAGNESIUM OXIDE 400 MG TABLET GT SCH (06:17)
[2023-04-27] MEDS: BACLOFEN 20 MG TABLET GT SCH ×3 (06:17→21:31)
[2023-04-27] MEDS: MIDODRINE HCL 10 MG TABLET GT SCH ×3 (06:18→21:31)
[2023-04-27] MEDS: METOCLOPRAMIDE HCL 5 MG TABLET GT SCH ×3 (06:18→21:31)
[2023-04-27] MEDS: OMEPRAZOLE 20 MG CAPSULE.DR GT SCH (06:18)
[2023-04-27] MEDS: HYDROGEN PEROXIDE 3% 118 ML BOTTLE TP SCH ×3 (07:12→19:17)
[2023-04-27 08:02] VITALS: TEMP 97
[2023-04-27] MEDS: PHENYTOIN 100 MG/4 ML UDC GT SCH ×2 (09:33→21:29)
[2023-04-27] MEDS: ACIDOPHILUS/BULGARICUS CHEW TAB GT SCH ×2 (09:35→21:29)
[2023-04-27] MEDS: FERROUS SULFATE 330 MG/7.5 ML UDC- FOR SA ONLY GT SCH ×2 (09:35→21:29)
[2023-04-27] MEDS: FUROSEMIDE 10 MG/ML GT SCH (09:39)
[2023-04-27] MEDS: levETIRAcetam 500 MG/5 ML LIQUID UDC GT SCH ×2 (09:40→21:30)
[2023-04-27] MEDS: POTASSIUM CHLORIDE 40 MEQ/30 ML LIQUID UDC GT SCH (09:43)
[2023-04-27] MEDS: COD LIVER OIL/ZINC OXIDE OINT 113 GM TUBE TP SCH ×4 (09:43→21:30)
[2023-04-27] MEDS: REMEDY ESSENTIAL ZINC PASTE 113 GM TP SCH ×2 (09:44→21:31)
[2023-04-27] MEDS: TRIAMCINOLONE ACET 0.1% CREAM 15 GM TUBE TP SCH ×4 (09:44→21:30)
[2023-04-27] MEDS: NEOMY/BACITRA/POLYMYXIN B OINT UD PACKET TP SCH ×2 (09:44→21:31)
[2023-04-27] MEDS: NYSTATIN CREAM 30 GM TUBE TP SCH ×4 (09:44→21:31)
[2023-04-27 21:02] VITALS: TEMP 96.9
[2023-04-27] MEDS: FOLIC ACID 1 MG TABLET GT SCH (21:29)
[2023-04-27] MEDS: CHOLECALCIFEROL 1,000 UNIT TABLET GT SCH (21:30)
[2023-04-27] MEDS: THIAMINE HCL 100 MG TABLET GT SCH (21:30)
[2023-04-27] MEDS: MIRALAX 17 GM POWD.PACK GT SCH (21:30)
[2023-04-28] MEDS: IPRATROPIUM BROMIDE 0.5 MG/2.5 ML NEBU NEB SCH ×6 (03:19→23:09)
[2023-04-28] MEDS: ALBUTEROL SULFATE 2.5 MG/3 ML NEBU NEB SCH ×6 (03:20→23:09)
[2023-04-28] MEDS: VITAL AF 1.2 1,000 ML LIQUID GT PRN (06:47)
[2023-04-28] MEDS: MIDODRINE HCL 10 MG TABLET GT SCH ×3 (06:47→22:00)
[2023-04-28] MEDS: OMEPRAZOLE 20 MG CAPSULE.DR GT SCH (06:47)
[2023-04-28] MEDS: BACLOFEN 20 MG TABLET GT SCH ×3 (06:47→22:23)
[2023-04-28] MEDS: MAGNESIUM OXIDE 400 MG TABLET GT SCH (06:47)
[2023-04-28] MEDS: METOCLOPRAMIDE HCL 5 MG TABLET GT SCH ×3 (06:47→22:24)
[2023-04-28] MEDS: FUROSEMIDE 10 MG/ML GT SCH (09:06)
[2023-04-28] MEDS: PHENYTOIN 100 MG/4 ML UDC GT SCH ×2 (09:06→21:00)
[2023-04-28] MEDS: FERROUS SULFATE 330 MG/7.5 ML UDC- FOR SA ONLY GT SCH ×2 (09:06→21:00)
[2023-04-28] MEDS: ACIDOPHILUS/BULGARICUS CHEW TAB GT SCH ×2 (09:06→21:00)
[2023-04-28] MEDS: levETIRAcetam 500 MG/5 ML LIQUID UDC GT SCH ×2 (09:07→21:00)
[2023-04-28] MEDS: COD LIVER OIL/ZINC OXIDE OINT 113 GM TUBE TP SCH ×4 (09:07→21:00)
[2023-04-28] MEDS: POTASSIUM CHLORIDE 40 MEQ/30 ML LIQUID UDC GT SCH (09:07)
[2023-04-28] MEDS: TRIAMCINOLONE ACET 0.1% CREAM 15 GM TUBE TP SCH ×4 (09:07→21:00)
[2023-04-28] MEDS: NYSTATIN CREAM 30 GM TUBE TP SCH ×4 (09:08→21:00)
[2023-04-28] MEDS: HYDROGEN PEROXIDE 3% 118 ML BOTTLE TP SCH ×2 (09:09→19:14)
[2023-04-28] MEDS: NEOMY/BACITRA/POLYMYXIN B OINT UD PACKET TP SCH ×2 (09:09→21:00)
[2023-04-28] MEDS: REMEDY ESSENTIAL ZINC PASTE 113 GM TP SCH ×2 (09:09→21:00)
[2023-04-28 09:25] VITALS: TEMP 97
[2023-04-28 20:00] VITALS: TEMP 94.8
[2023-04-28] MEDS: THIAMINE HCL 100 MG TABLET GT SCH (21:00)
[2023-04-28] MEDS: CHOLECALCIFEROL 1,000 UNIT TABLET GT SCH (21:00)
[2023-04-28] MEDS: FOLIC ACID 1 MG TABLET GT SCH (21:00)
[2023-04-29] MEDS: ALBUTEROL SULFATE 2.5 MG/3 ML NEBU NEB SCH ×6 (02:56→23:30)
[2023-04-29] MEDS: IPRATROPIUM BROMIDE 0.5 MG/2.5 ML NEBU NEB SCH ×6 (02:56→23:30)
[2023-04-29] MEDS: MAGNESIUM OXIDE 400 MG TABLET GT SCH (05:44)
[2023-04-29] MEDS: BACLOFEN 20 MG TABLET GT SCH ×3 (05:44→22:21)
[2023-04-29] MEDS: OMEPRAZOLE 20 MG CAPSULE.DR GT SCH (05:45)
[2023-04-29] MEDS: METOCLOPRAMIDE HCL 5 MG TABLET GT SCH ×3 (05:45→22:22)
[2023-04-29] MEDS: MIDODRINE HCL 10 MG TABLET GT SCH ×3 (05:45→22:22)
[2023-04-29 08:00] VITALS: TEMP 97.8
[2023-04-29] MEDS: HYDROGEN PEROXIDE 3% 118 ML BOTTLE TP SCH ×2 (08:11→19:18)
[2023-04-29] MEDS: ACIDOPHILUS/BULGARICUS CHEW TAB GT SCH ×2 (09:00→21:00)
[2023-04-29] MEDS: REMEDY ESSENTIAL ZINC PASTE 113 GM TP SCH ×2 (09:00→21:00)
[2023-04-29] MEDS: POTASSIUM CHLORIDE 40 MEQ/30 ML LIQUID UDC GT SCH (09:00)
[2023-04-29] MEDS: COD LIVER OIL/ZINC OXIDE OINT 113 GM TUBE TP SCH ×4 (09:00→21:00)
[2023-04-29] MEDS: PHENYTOIN 100 MG/4 ML UDC GT SCH ×2 (09:00→21:00)
[2023-04-29] MEDS: FUROSEMIDE 10 MG/ML GT SCH (09:00)
[2023-04-29] MEDS: FERROUS SULFATE 330 MG/7.5 ML UDC- FOR SA ONLY GT SCH ×2 (09:00→21:00)
[2023-04-29] MEDS: levETIRAcetam 500 MG/5 ML LIQUID UDC GT SCH ×2 (09:00→21:00)
[2023-04-29] MEDS: NEOMY/BACITRA/POLYMYXIN B OINT UD PACKET TP SCH ×2 (09:00→21:00)
[2023-04-29] MEDS: NYSTATIN CREAM 30 GM TUBE TP SCH ×4 (09:00→21:00)
[2023-04-29] MEDS: TRIAMCINOLONE ACET 0.1% CREAM 15 GM TUBE TP SCH ×4 (09:00→21:00)
[2023-04-29 20:00] VITALS: TEMP 97.6
[2023-04-29] MEDS: THIAMINE HCL 100 MG TABLET GT SCH (21:00)
[2023-04-29] MEDS: CHOLECALCIFEROL 1,000 UNIT TABLET GT SCH (21:00)
[2023-04-29] MEDS: MIRALAX 17 GM POWD.PACK GT SCH (21:00)
[2023-04-29] MEDS: FOLIC ACID 1 MG TABLET GT SCH (21:00)
[2023-04-30] MEDS: IPRATROPIUM BROMIDE 0.5 MG/2.5 ML NEBU NEB SCH ×6 (03:14→23:37)
[2023-04-30] MEDS: ALBUTEROL SULFATE 2.5 MG/3 ML NEBU NEB SCH ×6 (03:14→23:37)
[2023-04-30] MEDS: BACLOFEN 20 MG TABLET GT SCH ×3 (05:46→21:56)
[2023-04-30] MEDS: MAGNESIUM OXIDE 400 MG TABLET GT SCH (05:46)
[2023-04-30] MEDS: MIDODRINE HCL 10 MG TABLET GT SCH ×3 (05:47→21:57)
[2023-04-30] MEDS: OMEPRAZOLE 20 MG CAPSULE.DR GT SCH (05:47)
[2023-04-30] MEDS: METOCLOPRAMIDE HCL 5 MG TABLET GT SCH ×3 (05:47→21:57)
[2023-04-30 08:00] VITALS: TEMP 97.8
[2023-04-30] MEDS: NEOMY/BACITRA/POLYMYXIN B OINT UD PACKET TP SCH ×2 (08:49→20:13)
[2023-04-30] MEDS: levETIRAcetam 500 MG/5 ML LIQUID UDC GT SCH ×2 (08:49→20:13)
[2023-04-30] MEDS: NYSTATIN CREAM 30 GM TUBE TP SCH ×4 (08:49→20:13)
[2023-04-30] MEDS: POTASSIUM CHLORIDE 40 MEQ/30 ML LIQUID UDC GT SCH (08:49)
[2023-04-30] MEDS: REMEDY ESSENTIAL ZINC PASTE 113 GM TP SCH ×2 (08:49→20:13)
[2023-04-30] MEDS: PHENYTOIN 100 MG/4 ML UDC GT SCH ×2 (08:49→20:12)
[2023-04-30] MEDS: FERROUS SULFATE 330 MG/7.5 ML UDC- FOR SA ONLY GT SCH ×2 (08:49→20:12)
[2023-04-30] MEDS: TRIAMCINOLONE ACET 0.1% CREAM 15 GM TUBE TP SCH ×4 (08:49→20:13)
[2023-04-30] MEDS: COD LIVER OIL/ZINC OXIDE OINT 113 GM TUBE TP SCH ×4 (08:49→20:13)
[2023-04-30] MEDS: FUROSEMIDE 10 MG/ML GT SCH (08:49)
[2023-04-30] MEDS: ACIDOPHILUS/BULGARICUS CHEW TAB GT SCH ×2 (08:49→20:13)
[2023-04-30] MEDS: HYDROGEN PEROXIDE 3% 118 ML BOTTLE TP SCH ×2 (09:48→21:55)
[2023-04-30 20:00] VITALS: TEMP 98
[2023-04-30] MEDS: FOLIC ACID 1 MG TABLET GT SCH (20:13)
[2023-04-30] MEDS: THIAMINE HCL 100 MG TABLET GT SCH (20:13)
[2023-04-30] MEDS: CHOLECALCIFEROL 1,000 UNIT TABLET GT SCH (20:13)
[2023-05-01] MEDS: IPRATROPIUM BROMIDE 0.5 MG/2.5 ML NEBU NEB SCH ×6 (04:04→23:08)
[2023-05-01] MEDS: ALBUTEROL SULFATE 2.5 MG/3 ML NEBU NEB SCH ×6 (04:05→23:08)
[2023-05-01] MEDS: MAGNESIUM OXIDE 400 MG TABLET GT SCH (05:13)
[2023-05-01] MEDS: METOCLOPRAMIDE HCL 5 MG TABLET GT SCH ×3 (05:13→21:02)
[2023-05-01] MEDS: BACLOFEN 20 MG TABLET GT SCH ×3 (05:13→21:02)
[2023-05-01] MEDS: OMEPRAZOLE 20 MG CAPSULE.DR GT SCH (05:13)
[2023-05-01] MEDS: MIDODRINE HCL 10 MG TABLET GT SCH ×3 (05:15→21:02)
[2023-05-01] MEDS: HYDROGEN PEROXIDE 3% 118 ML BOTTLE TP SCH ×2 (07:28→19:10)
[2023-05-01 07:43] VITALS: TEMP 97.8
[2023-05-01] MEDS: FERROUS SULFATE 330 MG/7.5 ML UDC- FOR SA ONLY GT SCH ×2 (08:17→20:49)
[2023-05-01] MEDS: levETIRAcetam 500 MG/5 ML LIQUID UDC GT SCH ×2 (08:17→20:51)
[2023-05-01] MEDS: ACIDOPHILUS/BULGARICUS CHEW TAB GT SCH ×2 (08:17→20:50)
[2023-05-01] MEDS: PHENYTOIN 100 MG/4 ML UDC GT SCH ×2 (08:17→20:49)
[2023-05-01] MEDS: POTASSIUM CHLORIDE 40 MEQ/30 ML LIQUID UDC GT SCH (08:17)
[2023-05-01] MEDS: FUROSEMIDE 10 MG/ML GT SCH (08:17)
[2023-05-01] MEDS: TRIAMCINOLONE ACET 0.1% CREAM 15 GM TUBE TP SCH ×4 (08:18→20:52)
[2023-05-01] MEDS: NYSTATIN CREAM 30 GM TUBE TP SCH ×4 (08:18→20:52)
[2023-05-01] MEDS: COD LIVER OIL/ZINC OXIDE OINT 113 GM TUBE TP SCH ×4 (08:18→20:52)
[2023-05-01] MEDS: REMEDY ESSENTIAL ZINC PASTE 113 GM TP SCH ×2 (08:18→20:52)
[2023-05-01] MEDS: NEOMY/BACITRA/POLYMYXIN B OINT UD PACKET TP SCH ×2 (08:18→20:52)
[2023-05-01] MEDS: FOLIC ACID 1 MG TABLET GT SCH (20:50)
[2023-05-01] MEDS: MIRALAX 17 GM POWD.PACK GT SCH (20:51)
[2023-05-01] MEDS: THIAMINE HCL 100 MG TABLET GT SCH (20:51)
[2023-05-01] MEDS: CHOLECALCIFEROL 1,000 UNIT TABLET GT SCH (20:52)
[2023-05-02] MEDS: IPRATROPIUM BROMIDE 0.5 MG/2.5 ML NEBU NEB SCH ×6 (03:39→23:01)
[2023-05-02] MEDS: ALBUTEROL SULFATE 2.5 MG/3 ML NEBU NEB SCH ×6 (03:39→23:01)
[2023-05-02] MEDS: BACLOFEN 20 MG TABLET GT SCH ×3 (05:11→22:59)
[2023-05-02] MEDS: METOCLOPRAMIDE HCL 5 MG TABLET GT SCH ×3 (05:12→22:59)
[2023-05-02] MEDS: OMEPRAZOLE 20 MG CAPSULE.DR GT SCH (05:12)
[2023-05-02] MEDS: MIDODRINE HCL 10 MG TABLET GT SCH ×3 (05:12→22:00)
[2023-05-02] MEDS: MAGNESIUM OXIDE 400 MG TABLET GT SCH (05:12)
[2023-05-02] MEDS: HYDROGEN PEROXIDE 3% 118 ML BOTTLE TP SCH ×2 (07:41→19:33)
[2023-05-02 08:00] VITALS: TEMP 99
[2023-05-02] MEDS: levETIRAcetam 500 MG/5 ML LIQUID UDC GT SCH ×2 (08:32→21:00)
[2023-05-02] MEDS: PHENYTOIN 100 MG/4 ML UDC GT SCH ×2 (08:32→21:00)
[2023-05-02] MEDS: FUROSEMIDE 10 MG/ML GT SCH (08:32)
[2023-05-02] MEDS: FERROUS SULFATE 330 MG/7.5 ML UDC- FOR SA ONLY GT SCH ×2 (08:32→21:00)
[2023-05-02] MEDS: ACIDOPHILUS/BULGARICUS CHEW TAB GT SCH ×2 (08:32→21:00)
[2023-05-02] MEDS: POTASSIUM CHLORIDE 40 MEQ/30 ML LIQUID UDC GT SCH (08:33)
[2023-05-02] MEDS: TRIAMCINOLONE ACET 0.1% CREAM 15 GM TUBE TP SCH ×4 (08:33→21:00)
[2023-05-02] MEDS: COD LIVER OIL/ZINC OXIDE OINT 113 GM TUBE TP SCH ×4 (08:33→21:00)
[2023-05-02] MEDS: REMEDY ESSENTIAL ZINC PASTE 113 GM TP SCH ×2 (08:33→21:00)
[2023-05-02] MEDS: NEOMY/BACITRA/POLYMYXIN B OINT UD PACKET TP SCH ×2 (08:33→21:00)
[2023-05-02] MEDS: NYSTATIN CREAM 30 GM TUBE TP SCH ×4 (08:33→21:00)
[2023-05-02 20:00] VITALS: TEMP 98.2
[2023-05-02] MEDS: FOLIC ACID 1 MG TABLET GT SCH (21:00)
[2023-05-02] MEDS: CHOLECALCIFEROL 1,000 UNIT TABLET GT SCH (21:00)
[2023-05-02] MEDS: THIAMINE HCL 100 MG TABLET GT SCH (21:00)
[2023-05-03] MEDS: IPRATROPIUM BROMIDE 0.5 MG/2.5 ML NEBU NEB SCH ×6 (03:33→23:15)
[2023-05-03] MEDS: ALBUTEROL SULFATE 2.5 MG/3 ML NEBU NEB SCH ×6 (03:33→23:15)
[2023-05-03] MEDS: MIDODRINE HCL 10 MG TABLET GT SCH ×3 (05:37→21:25)
[2023-05-03] MEDS: BACLOFEN 20 MG TABLET GT SCH ×3 (05:37→21:25)
[2023-05-03] MEDS: MAGNESIUM OXIDE 400 MG TABLET GT SCH (05:37)
[2023-05-03] MEDS: OMEPRAZOLE 20 MG CAPSULE.DR GT SCH (05:37)
[2023-05-03] MEDS: METOCLOPRAMIDE HCL 5 MG TABLET GT SCH ×3 (05:37→21:25)
[2023-05-03] MEDS: HYDROGEN PEROXIDE 3% 118 ML BOTTLE TP SCH ×2 (07:26→21:00)
[2023-05-03 07:42] VITALS: TEMP 97
[2023-05-03] MEDS: COD LIVER OIL/ZINC OXIDE OINT 113 GM TUBE TP SCH ×2 (08:22)
[2023-05-03] MEDS: FERROUS SULFATE 330 MG/7.5 ML UDC- FOR SA ONLY GT SCH ×2 (08:22→21:25)
[2023-05-03] MEDS: POTASSIUM CHLORIDE 40 MEQ/30 ML LIQUID UDC GT SCH (08:22)
[2023-05-03] MEDS: ACIDOPHILUS/BULGARICUS CHEW TAB GT SCH ×2 (08:22→21:25)
[2023-05-03] MEDS: levETIRAcetam 500 MG/5 ML LIQUID UDC GT SCH ×2 (08:22→21:25)
[2023-05-03] MEDS: PHENYTOIN 100 MG/4 ML UDC GT SCH ×2 (08:22→21:25)
[2023-05-03] MEDS: FUROSEMIDE 10 MG/ML GT SCH (08:22)
[2023-05-03] MEDS: REMEDY ESSENTIAL ZINC PASTE 113 GM TP SCH ×2 (08:27→21:25)
[2023-05-03] MEDS: TRIAMCINOLONE ACET 0.1% CREAM 15 GM TUBE TP SCH ×2 (08:27)
[2023-05-03] MEDS: NYSTATIN CREAM 30 GM TUBE TP SCH ×2 (08:27)
[2023-05-03] MEDS: NEOMY/BACITRA/POLYMYXIN B OINT UD PACKET TP SCH (08:27)
[2023-05-03 20:56] VITALS: TEMP 98.5
[2023-05-03] MEDS: THIAMINE HCL 100 MG TABLET GT SCH (21:25)
[2023-05-03] MEDS: CHOLECALCIFEROL 1,000 UNIT TABLET GT SCH (21:25)
[2023-05-03] MEDS: FOLIC ACID 1 MG TABLET GT SCH (21:25)
[2023-05-04] MEDS: IPRATROPIUM BROMIDE 0.5 MG/2.5 ML NEBU NEB SCH ×6 (02:39→23:39)
[2023-05-04] MEDS: ALBUTEROL SULFATE 2.5 MG/3 ML NEBU NEB SCH ×6 (02:39→23:39)
[2023-05-04] MEDS: MAGNESIUM OXIDE 400 MG TABLET GT SCH (05:13)
[2023-05-04] MEDS: BACLOFEN 20 MG TABLET GT SCH ×3 (05:13→22:12)
[2023-05-04] MEDS: MIDODRINE HCL 10 MG TABLET GT SCH ×3 (05:13→22:00)
[2023-05-04] MEDS: OMEPRAZOLE 20 MG CAPSULE.DR GT SCH (05:14)
[2023-05-04] MEDS: METOCLOPRAMIDE HCL 5 MG TABLET GT SCH ×3 (05:14→22:13)
[2023-05-04] MEDS: HYDROGEN PEROXIDE 3% 118 ML BOTTLE TP SCH ×2 (07:59→21:00)
[2023-05-04 09:26] VITALS: TEMP 97
[2023-05-04] MEDS: FERROUS SULFATE 330 MG/7.5 ML UDC- FOR SA ONLY GT SCH ×2 (09:39→21:00)
[2023-05-04] MEDS: ACIDOPHILUS/BULGARICUS CHEW TAB GT SCH ×2 (09:40→21:00)
[2023-05-04] MEDS: FUROSEMIDE 10 MG/ML GT SCH (09:40)
[2023-05-04] MEDS: levETIRAcetam 500 MG/5 ML LIQUID UDC GT SCH ×2 (09:50→21:00)
[2023-05-04] MEDS: POTASSIUM CHLORIDE 40 MEQ/30 ML LIQUID UDC GT SCH (09:50)
[2023-05-04] MEDS: REMEDY ESSENTIAL ZINC PASTE 113 GM TP SCH ×2 (09:51→21:00)
[2023-05-04] MEDS: PHENYTOIN 100 MG/4 ML UDC GT SCH ×2 (09:52→21:00)
[2023-05-04 20:00] VITALS: TEMP 97.9
[2023-05-04] MEDS: MIRALAX 17 GM POWD.PACK GT SCH (21:00)
[2023-05-04] MEDS: CHOLECALCIFEROL 1,000 UNIT TABLET GT SCH (21:00)
[2023-05-04] MEDS: THIAMINE HCL 100 MG TABLET GT SCH (21:00)
[2023-05-04] MEDS: FOLIC ACID 1 MG TABLET GT SCH (21:00)
[2023-05-05] MEDS: IPRATROPIUM BROMIDE 0.5 MG/2.5 ML NEBU NEB SCH ×5 (03:19→19:24)
[2023-05-05] MEDS: ALBUTEROL SULFATE 2.5 MG/3 ML NEBU NEB SCH ×5 (03:19→19:24)
[2023-05-05] MEDS: MIDODRINE HCL 10 MG TABLET GT SCH ×3 (05:47→21:35)
[2023-05-05] MEDS: METOCLOPRAMIDE HCL 5 MG TABLET GT SCH ×3 (05:47→21:36)
[2023-05-05] MEDS: OMEPRAZOLE 20 MG CAPSULE.DR GT SCH (05:47)
[2023-05-05] MEDS: MAGNESIUM OXIDE 400 MG TABLET GT SCH (05:47)
[2023-05-05] MEDS: BACLOFEN 20 MG TABLET GT SCH ×3 (05:47→21:35)
[2023-05-05] MEDS: HYDROGEN PEROXIDE 3% 118 ML BOTTLE TP SCH ×2 (08:23→19:24)
[2023-05-05] MEDS: REMEDY ESSENTIAL ZINC PASTE 113 GM TP SCH ×2 (09:00→21:34)
[2023-05-05] MEDS: FUROSEMIDE 10 MG/ML GT SCH (09:00)
[2023-05-05] MEDS: FERROUS SULFATE 330 MG/7.5 ML UDC- FOR SA ONLY GT SCH ×2 (09:00→21:34)
[2023-05-05] MEDS: ACIDOPHILUS/BULGARICUS CHEW TAB GT SCH ×2 (09:00→21:34)
[2023-05-05] MEDS: PHENYTOIN 100 MG/4 ML UDC GT SCH ×2 (09:00→21:34)
[2023-05-05] MEDS: POTASSIUM CHLORIDE 40 MEQ/30 ML LIQUID UDC GT SCH (09:00)
[2023-05-05] MEDS: levETIRAcetam 500 MG/5 ML LIQUID UDC GT SCH ×2 (09:00→21:34)
[2023-05-05 09:14] VITALS: TEMP 97.2
[2023-05-05 20:00] VITALS: TEMP 97.9
[2023-05-05] MEDS: THIAMINE HCL 100 MG TABLET GT SCH (21:34)
[2023-05-05] MEDS: CHOLECALCIFEROL 1,000 UNIT TABLET GT SCH (21:34)
[2023-05-05] MEDS: FOLIC ACID 1 MG TABLET GT SCH (21:34)
[2023-05-06] MEDS: ALBUTEROL SULFATE 2.5 MG/3 ML NEBU NEB SCH ×7 (00:01→23:31)
[2023-05-06] MEDS: IPRATROPIUM BROMIDE 0.5 MG/2.5 ML NEBU NEB SCH ×7 (00:01→23:31)
[2023-05-06] MEDS: MAGNESIUM OXIDE 400 MG TABLET GT SCH (05:29)
[2023-05-06] MEDS: MIDODRINE HCL 10 MG TABLET GT SCH ×3 (05:29→21:42)
[2023-05-06] MEDS: BACLOFEN 20 MG TABLET GT SCH ×3 (05:29→21:42)
[2023-05-06] MEDS: OMEPRAZOLE 20 MG CAPSULE.DR GT SCH (05:30)
[2023-05-06] MEDS: METOCLOPRAMIDE HCL 5 MG TABLET GT SCH ×3 (05:30→21:42)
[2023-05-06 07:22] VITALS: TEMP 97
[2023-05-06] MEDS: HYDROGEN PEROXIDE 3% 118 ML BOTTLE TP SCH ×2 (09:00→21:18)
[2023-05-06] MEDS: PHENYTOIN 100 MG/4 ML UDC GT SCH ×2 (09:05→21:38)
[2023-05-06] MEDS: FERROUS SULFATE 330 MG/7.5 ML UDC- FOR SA ONLY GT SCH ×2 (09:06→21:39)
[2023-05-06] MEDS: ACIDOPHILUS/BULGARICUS CHEW TAB GT SCH ×2 (09:06→21:39)
[2023-05-06] MEDS: POTASSIUM CHLORIDE 40 MEQ/30 ML LIQUID UDC GT SCH (09:07)
[2023-05-06] MEDS: levETIRAcetam 500 MG/5 ML LIQUID UDC GT SCH ×2 (09:07→21:40)
[2023-05-06] MEDS: FUROSEMIDE 10 MG/ML GT SCH (09:07)
[2023-05-06] MEDS: REMEDY ESSENTIAL ZINC PASTE 113 GM TP SCH ×2 (09:08→21:42)
[2023-05-06 10:00] VITALS: O2SAT 98
[2023-05-06 11:46] VITALS: TEMP 97.6
[2023-05-06 16:46] VITALS: TEMP 98.2
[2023-05-06 20:00] VITALS: TEMP 97.6
[2023-05-06] MEDS: FOLIC ACID 1 MG TABLET GT SCH (21:40)
[2023-05-06] MEDS: MIRALAX 17 GM POWD.PACK GT SCH (21:41)
[2023-05-06] MEDS: CHOLECALCIFEROL 1,000 UNIT TABLET GT SCH (21:41)
[2023-05-06] MEDS: THIAMINE HCL 100 MG TABLET GT SCH (21:41)
[2023-05-06] MEDS: PEPTAMEN AF 1000ML BAG GT PRN (22:30)
[2023-05-07] MEDS: ALBUTEROL SULFATE 2.5 MG/3 ML NEBU NEB SCH ×6 (04:08→22:49)
[2023-05-07] MEDS: IPRATROPIUM BROMIDE 0.5 MG/2.5 ML NEBU NEB SCH ×6 (04:08→22:49)
[2023-05-07] MEDS: OMEPRAZOLE 20 MG CAPSULE.DR GT SCH (05:43)
[2023-05-07] MEDS: MIDODRINE HCL 10 MG TABLET GT SCH ×3 (05:43→21:14)
[2023-05-07] MEDS: METOCLOPRAMIDE HCL 5 MG TABLET GT SCH ×3 (05:43→21:15)
[2023-05-07] MEDS: MAGNESIUM OXIDE 400 MG TABLET GT SCH (05:43)
[2023-05-07] MEDS: BACLOFEN 20 MG TABLET GT SCH ×3 (05:43→21:14)
[2023-05-07 07:48] VITALS: TEMP 98.8
[2023-05-07] MEDS: HYDROGEN PEROXIDE 3% 118 ML BOTTLE TP SCH ×2 (08:14→20:57)
[2023-05-07] MEDS: PHENYTOIN 100 MG/4 ML UDC GT SCH ×2 (08:40→21:13)
[2023-05-07] MEDS: FERROUS SULFATE 330 MG/7.5 ML UDC- FOR SA ONLY GT SCH ×2 (08:44→21:13)
[2023-05-07] MEDS: ACIDOPHILUS/BULGARICUS CHEW TAB GT SCH ×2 (08:44→21:13)
[2023-05-07] MEDS: FUROSEMIDE 10 MG/ML GT SCH (08:45)
[2023-05-07] MEDS: levETIRAcetam 500 MG/5 ML LIQUID UDC GT SCH ×2 (08:45→21:13)
[2023-05-07] MEDS: REMEDY ESSENTIAL ZINC PASTE 113 GM TP SCH ×2 (08:46→21:14)
[2023-05-07] MEDS: POTASSIUM CHLORIDE 40 MEQ/30 ML LIQUID UDC GT SCH (08:46)
[2023-05-07 20:00] VITALS: TEMP 97.5
[2023-05-07] MEDS: FOLIC ACID 1 MG TABLET GT SCH (21:13)
[2023-05-07] MEDS: CHOLECALCIFEROL 1,000 UNIT TABLET GT SCH (21:14)
[2023-05-07] MEDS: THIAMINE HCL 100 MG TABLET GT SCH (21:14)
[2023-05-08] MEDS: ALBUTEROL SULFATE 2.5 MG/3 ML NEBU NEB SCH ×6 (03:03→22:40)
[2023-05-08] MEDS: IPRATROPIUM BROMIDE 0.5 MG/2.5 ML NEBU NEB SCH ×6 (03:03→22:40)
[2023-05-08] MEDS: MIDODRINE HCL 10 MG TABLET GT SCH ×3 (05:19→21:36)
[2023-05-08] MEDS: METOCLOPRAMIDE HCL 5 MG TABLET GT SCH ×3 (05:19→21:38)
[2023-05-08] MEDS: OMEPRAZOLE 20 MG CAPSULE.DR GT SCH (05:19)
[2023-05-08] MEDS: BACLOFEN 20 MG TABLET GT SCH ×3 (05:19→21:36)
[2023-05-08] MEDS: MAGNESIUM OXIDE 400 MG TABLET GT SCH (05:19)
[2023-05-08] MEDS: PEPTAMEN AF 1000ML BAG GT PRN (05:42)
[2023-05-08 08:00] VITALS: TEMP 97.6
[2023-05-08] MEDS: HYDROGEN PEROXIDE 3% 118 ML BOTTLE TP SCH ×2 (08:33→19:13)
[2023-05-08] MEDS: POTASSIUM CHLORIDE 40 MEQ/30 ML LIQUID UDC GT SCH (09:31)
[2023-05-08] MEDS: REMEDY ESSENTIAL ZINC PASTE 113 GM TP SCH ×2 (09:31→21:36)
[2023-05-08] MEDS: ACIDOPHILUS/BULGARICUS CHEW TAB GT SCH ×2 (09:31→21:36)
[2023-05-08] MEDS: FERROUS SULFATE 330 MG/7.5 ML UDC- FOR SA ONLY GT SCH ×2 (09:31→21:36)
[2023-05-08] MEDS: PHENYTOIN 100 MG/4 ML UDC GT SCH ×2 (09:31→21:36)
[2023-05-08] MEDS: FUROSEMIDE 10 MG/ML GT SCH (09:31)
[2023-05-08] MEDS: levETIRAcetam 500 MG/5 ML LIQUID UDC GT SCH ×2 (09:31→21:36)
[2023-05-08 20:00] VITALS: TEMP 98.5
[2023-05-08] MEDS: MIRALAX 17 GM POWD.PACK GT SCH (21:36)
[2023-05-08] MEDS: CHOLECALCIFEROL 1,000 UNIT TABLET GT SCH (21:36)
[2023-05-08] MEDS: THIAMINE HCL 100 MG TABLET GT SCH (21:36)
[2023-05-08] MEDS: FOLIC ACID 1 MG TABLET GT SCH (21:36)
[2023-05-09] MEDS: IPRATROPIUM BROMIDE 0.5 MG/2.5 ML NEBU NEB SCH ×6 (03:48→23:25)
[2023-05-09] MEDS: ALBUTEROL SULFATE 2.5 MG/3 ML NEBU NEB SCH ×6 (03:48→23:25)
[2023-05-09] MEDS: BACLOFEN 20 MG TABLET GT SCH ×3 (05:21→21:30)
[2023-05-09] MEDS: MAGNESIUM OXIDE 400 MG TABLET GT SCH (05:22)
[2023-05-09] MEDS: MIDODRINE HCL 10 MG TABLET GT SCH ×3 (05:23→21:31)
[2023-05-09] MEDS: METOCLOPRAMIDE HCL 5 MG TABLET GT SCH ×3 (05:24→21:31)
[2023-05-09] MEDS: OMEPRAZOLE 20 MG CAPSULE.DR GT SCH (05:24)
[2023-05-09] MEDS: HYDROGEN PEROXIDE 3% 118 ML BOTTLE TP SCH ×2 (07:24→19:27)
[2023-05-09 08:00] VITALS: TEMP 97.4
[2023-05-09] MEDS: FERROUS SULFATE 330 MG/7.5 ML UDC- FOR SA ONLY GT SCH ×2 (10:00→21:30)
[2023-05-09] MEDS: ACIDOPHILUS/BULGARICUS CHEW TAB GT SCH ×2 (10:00→21:30)
[2023-05-09] MEDS: REMEDY ESSENTIAL ZINC PASTE 113 GM TP SCH ×2 (10:00→21:30)
[2023-05-09] MEDS: levETIRAcetam 500 MG/5 ML LIQUID UDC GT SCH ×2 (10:00→21:30)
[2023-05-09] MEDS: FUROSEMIDE 10 MG/ML GT SCH (10:00)
[2023-05-09] MEDS: PHENYTOIN 100 MG/4 ML UDC GT SCH ×2 (10:00→21:30)
[2023-05-09] MEDS: POTASSIUM CHLORIDE 40 MEQ/30 ML LIQUID UDC GT SCH (10:00)
[2023-05-09 20:00] VITALS: TEMP 95
[2023-05-09 21:28] VITALS: TEMP 97.7
[2023-05-09] MEDS: THIAMINE HCL 100 MG TABLET GT SCH (21:30)
[2023-05-09] MEDS: FOLIC ACID 1 MG TABLET GT SCH (21:30)
[2023-05-09] MEDS: CHOLECALCIFEROL 1,000 UNIT TABLET GT SCH (21:30)
[2023-05-10] MEDS: IPRATROPIUM BROMIDE 0.5 MG/2.5 ML NEBU NEB SCH ×6 (03:47→23:23)
[2023-05-10] MEDS: ALBUTEROL SULFATE 2.5 MG/3 ML NEBU NEB SCH ×6 (03:48→23:23)
[2023-05-10] MEDS: MIDODRINE HCL 10 MG TABLET GT SCH ×3 (06:00→22:00)
[2023-05-10] MEDS: MAGNESIUM OXIDE 400 MG TABLET GT SCH (06:08)
[2023-05-10] MEDS: BACLOFEN 20 MG TABLET GT SCH ×3 (06:08→22:01)
[2023-05-10] MEDS: OMEPRAZOLE 20 MG CAPSULE.DR GT SCH (06:09)
[2023-05-10] MEDS: METOCLOPRAMIDE HCL 5 MG TABLET GT SCH ×3 (06:09→22:01)
[2023-05-10 07:52] VITALS: TEMP 97
[2023-05-10] MEDS: FERROUS SULFATE 330 MG/7.5 ML UDC- FOR SA ONLY GT SCH ×2 (08:20→20:14)
[2023-05-10] MEDS: PHENYTOIN 100 MG/4 ML UDC GT SCH ×2 (08:20→21:00)
[2023-05-10] MEDS: ACIDOPHILUS/BULGARICUS CHEW TAB GT SCH ×2 (08:22→20:13)
[2023-05-10] MEDS: FUROSEMIDE 10 MG/ML GT SCH (08:26)
[2023-05-10] MEDS: levETIRAcetam 500 MG/5 ML LIQUID UDC GT SCH ×2 (08:26→21:00)
[2023-05-10] MEDS: POTASSIUM CHLORIDE 40 MEQ/30 ML LIQUID UDC GT SCH (08:28)
[2023-05-10] MEDS: REMEDY ESSENTIAL ZINC PASTE 113 GM TP SCH ×2 (08:29→20:16)
[2023-05-10] MEDS: HYDROGEN PEROXIDE 3% 118 ML BOTTLE TP SCH ×2 (09:00→19:09)
[2023-05-10] MEDS: FOLIC ACID 1 MG TABLET GT SCH (20:14)
[2023-05-10] MEDS: THIAMINE HCL 100 MG TABLET GT SCH (20:16)
[2023-05-10] MEDS: CHOLECALCIFEROL 1,000 UNIT TABLET GT SCH (20:16)
[2023-05-10 20:23] VITALS: TEMP 98.4
[2023-05-11] MEDS: IPRATROPIUM BROMIDE 0.5 MG/2.5 ML NEBU NEB SCH ×6 (03:30→23:35)
[2023-05-11] MEDS: ALBUTEROL SULFATE 2.5 MG/3 ML NEBU NEB SCH ×6 (03:30→23:35)
[2023-05-11 06:31] LABS: BASOPHILS % (AUTO) 0.7 % (0.0-2.0); EOSINOPHILS # (AUTO) 0.1 K/uL (0.0-0.7); EOSINOPHILS % (AUTO) 1.8 % (0.0-7.0); HEMATOCRIT 27.3 % (31.2-41.9); HEMOGLOBIN 9.1 g/dL (10.9-14.3); LYMPHOCYTES # (AUTO) 1.3 K/uL (0.8-4.8); LYMPHOCYTES % (AUTO) 19.9 % (20.5-51.5); MEAN CORPUSCULAR HEMOGLOBIN 28.8 uug (24.7-32.8); MEAN CORPUSCULAR HGB CONC 34 g/dL (32.3-35.6); MONOCYTES # (AUTO) 0.3 K/uL (0.1-1.30); MONOCYTES % (AUTO) 4.7 % (0.0-11.0); NEUTROPHILS # (AUTO) 4.8 K/uL (1.8-8.9); NEUTROPHILS % (AUTO) 72.9 % (38.5-71.5); PLATELET COUNT (AUTO) 582 K/uL (179-408); RED BLOOD CELL COUNT(AUTO) 3.18 MIL/uL (3.63-4.92); WHITE BLOOD COUNT (AUTO) 6.5 K/uL (3.8-11.8)
[2023-05-11] MEDS: OMEPRAZOLE 20 MG CAPSULE.DR GT SCH (06:33)
[2023-05-11] MEDS: METOCLOPRAMIDE HCL 5 MG TABLET GT SCH ×3 (06:33→22:27)
[2023-05-11] MEDS: BACLOFEN 20 MG TABLET GT SCH ×3 (06:33→22:23)
[2023-05-11] MEDS: MAGNESIUM OXIDE 400 MG TABLET GT SCH (06:33)
[2023-05-11] MEDS: MIDODRINE HCL 10 MG TABLET GT SCH ×3 (06:34→22:27)
[2023-05-11] MEDS: PEPTAMEN AF 1000ML BAG GT PRN (06:35)
[2023-05-11 06:53] LABS: CALCIUM 8.5 mg/dL (8.5-10.1); CREATININE 0.6 mg/dL (0.6-1.3); MAGNESIUM 2.1 mg/dL (1.8-2.4); PHOSPHOROUS 3.8 mg/dL (2.5-4.9); POTASSIUM 3.6 mmol/L (3.5-5.1)
[2023-05-11 07:06] LABS: DIFFERENTIAL COMMENT 1
[2023-05-11] MEDS: HYDROGEN PEROXIDE 3% 118 ML BOTTLE TP SCH ×2 (07:21→19:08)
[2023-05-11 07:31] VITALS: TEMP 97.5
[2023-05-11] MEDS: PHENYTOIN 100 MG/4 ML UDC GT SCH ×2 (08:14→21:00)
[2023-05-11] MEDS: ACIDOPHILUS/BULGARICUS CHEW TAB GT SCH ×2 (08:15→21:00)
[2023-05-11] MEDS: FERROUS SULFATE 330 MG/7.5 ML UDC- FOR SA ONLY GT SCH ×2 (08:15→21:00)
[2023-05-11] MEDS: levETIRAcetam 500 MG/5 ML LIQUID UDC GT SCH ×2 (08:15→21:00)
[2023-05-11] MEDS: FUROSEMIDE 10 MG/ML GT SCH (08:15)
[2023-05-11] MEDS: REMEDY ESSENTIAL ZINC PASTE 113 GM TP SCH ×2 (08:16→21:00)
[2023-05-11] MEDS: POTASSIUM CHLORIDE 40 MEQ/30 ML LIQUID UDC GT SCH (08:16)
[2023-05-11 20:30] VITALS: TEMP 98.2
[2023-05-11] MEDS: FOLIC ACID 1 MG TABLET GT SCH (21:00)
[2023-05-11] MEDS: THIAMINE HCL 100 MG TABLET GT SCH (21:00)
[2023-05-11] MEDS: CHOLECALCIFEROL 1,000 UNIT TABLET GT SCH (21:00)
[2023-05-11] MEDS: MIRALAX 17 GM POWD.PACK GT SCH (21:00)
[2023-05-12] MEDS: IPRATROPIUM BROMIDE 0.5 MG/2.5 ML NEBU NEB SCH ×6 (03:34→23:08)
[2023-05-12] MEDS: ALBUTEROL SULFATE 2.5 MG/3 ML NEBU NEB SCH ×6 (03:34→23:08)
[2023-05-12] MEDS: BACLOFEN 20 MG TABLET GT SCH ×3 (05:30→22:34)
[2023-05-12] MEDS: MAGNESIUM OXIDE 400 MG TABLET GT SCH (05:30)
[2023-05-12] MEDS: OMEPRAZOLE 20 MG CAPSULE.DR GT SCH (05:31)
[2023-05-12] MEDS: MIDODRINE HCL 10 MG TABLET GT SCH ×3 (05:31→22:35)
[2023-05-12] MEDS: METOCLOPRAMIDE HCL 5 MG TABLET GT SCH ×3 (05:31→22:35)
[2023-05-12 07:28] VITALS: TEMP 97
[2023-05-12] MEDS: HYDROGEN PEROXIDE 3% 118 ML BOTTLE TP SCH ×2 (07:57→19:13)
[2023-05-12] MEDS: NYSTATIN CREAM 30 GM TUBE TP SCH ×2 (09:00→21:00)
[2023-05-12] MEDS: TRIAMCINOLONE ACET 0.1% OINT 15 GM TUBE TP SCH ×2 (09:00→21:00)
[2023-05-12] MEDS: PHENYTOIN 100 MG/4 ML UDC GT SCH ×2 (09:19→21:00)
[2023-05-12] MEDS: FERROUS SULFATE 330 MG/7.5 ML UDC- FOR SA ONLY GT SCH ×2 (09:20→21:00)
[2023-05-12] MEDS: ACIDOPHILUS/BULGARICUS CHEW TAB GT SCH ×2 (09:31→21:00)
[2023-05-12] MEDS: FUROSEMIDE 10 MG/ML GT SCH (09:33)
[2023-05-12] MEDS: levETIRAcetam 500 MG/5 ML LIQUID UDC GT SCH ×2 (09:33→21:00)
[2023-05-12] MEDS: REMEDY ESSENTIAL ZINC PASTE 113 GM TP SCH ×2 (09:35→21:00)
[2023-05-12] MEDS: POTASSIUM CHLORIDE 40 MEQ/30 ML LIQUID UDC GT SCH (09:35)
[2023-05-12 20:00] VITALS: TEMP 92.6
[2023-05-12] MEDS: THIAMINE HCL 100 MG TABLET GT SCH (21:00)
[2023-05-12] MEDS ORDERED: TRIAMCINOLONE ACET 0.1% CREAM 15 GM TUBE TP SCH (21:00)
[2023-05-12] MEDS: FOLIC ACID 1 MG TABLET GT SCH (21:00)
[2023-05-12] MEDS: CHOLECALCIFEROL 1,000 UNIT TABLET GT SCH (21:00)
[2023-05-12 21:30] VITALS: TEMP 94.4
[2023-05-12 23:30] VITALS: TEMP 98.2
[2023-05-13] MEDS: IPRATROPIUM BROMIDE 0.5 MG/2.5 ML NEBU NEB SCH ×6 (03:23→23:24)
[2023-05-13] MEDS: ALBUTEROL SULFATE 2.5 MG/3 ML NEBU NEB SCH ×6 (03:23→23:24)
[2023-05-13] MEDS: MAGNESIUM OXIDE 400 MG TABLET GT SCH (05:44)
[2023-05-13] MEDS: MIDODRINE HCL 10 MG TABLET GT SCH ×3 (05:44→22:01)
[2023-05-13] MEDS: BACLOFEN 20 MG TABLET GT SCH ×3 (05:44→21:56)
[2023-05-13] MEDS: OMEPRAZOLE 20 MG CAPSULE.DR GT SCH (05:44)
[2023-05-13] MEDS: METOCLOPRAMIDE HCL 5 MG TABLET GT SCH ×3 (05:45→22:01)
[2023-05-13] MEDS: HYDROGEN PEROXIDE 3% 118 ML BOTTLE TP SCH ×2 (07:16→19:32)
[2023-05-13 07:29] VITALS: TEMP 97.8
[2023-05-13] MEDS: NYSTATIN CREAM 30 GM TUBE TP SCH ×4 (09:00→21:56)
[2023-05-13] MEDS: TRIAMCINOLONE ACET 0.1% OINT 15 GM TUBE TP SCH ×4 (09:00→21:56)
[2023-05-13] MEDS: PHENYTOIN 100 MG/4 ML UDC GT SCH ×2 (09:21→21:52)
[2023-05-13] MEDS: FERROUS SULFATE 330 MG/7.5 ML UDC- FOR SA ONLY GT SCH ×2 (09:22→21:53)
[2023-05-13] MEDS: ACIDOPHILUS/BULGARICUS CHEW TAB GT SCH ×2 (09:24→21:53)
[2023-05-13] MEDS: FUROSEMIDE 10 MG/ML GT SCH (09:24)
[2023-05-13] MEDS: levETIRAcetam 500 MG/5 ML LIQUID UDC GT SCH ×2 (09:25→21:55)
[2023-05-13] MEDS: POTASSIUM CHLORIDE 40 MEQ/30 ML LIQUID UDC GT SCH (09:26)
[2023-05-13] MEDS: REMEDY ESSENTIAL ZINC PASTE 113 GM TP SCH ×2 (09:28→21:56)
[2023-05-13] MEDS: NEOMY/BACITRA/POLYMYXIN B OINT UD PACKET TP SCH ×2 (09:28→21:56)
[2023-05-13 20:00] VITALS: TEMP 97.6
[2023-05-13] MEDS: FOLIC ACID 1 MG TABLET GT SCH (21:54)
[2023-05-13] MEDS: MIRALAX 17 GM POWD.PACK GT SCH (21:55)
[2023-05-13] MEDS: CHOLECALCIFEROL 1,000 UNIT TABLET GT SCH (21:56)
[2023-05-13] MEDS: THIAMINE HCL 100 MG TABLET GT SCH (21:56)
[2023-05-14] MEDS: IPRATROPIUM BROMIDE 0.5 MG/2.5 ML NEBU NEB SCH ×6 (03:16→23:07)
[2023-05-14] MEDS: ALBUTEROL SULFATE 2.5 MG/3 ML NEBU NEB SCH ×6 (03:16→23:07)
[2023-05-14] MEDS: MAGNESIUM OXIDE 400 MG TABLET GT SCH (06:15)
[2023-05-14] MEDS: BACLOFEN 20 MG TABLET GT SCH ×3 (06:15→22:09)
[2023-05-14] MEDS: OMEPRAZOLE 20 MG CAPSULE.DR GT SCH (06:16)
[2023-05-14] MEDS: METOCLOPRAMIDE HCL 5 MG TABLET GT SCH ×3 (06:16→22:11)
[2023-05-14] MEDS: MIDODRINE HCL 10 MG TABLET GT SCH ×3 (06:16→22:00)
[2023-05-14] MEDS: HYDROGEN PEROXIDE 3% 118 ML BOTTLE TP SCH ×2 (07:29→21:59)
[2023-05-14 07:36] VITALS: TEMP 96.7
[2023-05-14] MEDS: PHENYTOIN 100 MG/4 ML UDC GT SCH ×2 (09:39→21:00)
[2023-05-14] MEDS: FUROSEMIDE 10 MG/ML GT SCH (09:39)
[2023-05-14] MEDS: POTASSIUM CHLORIDE 40 MEQ/30 ML LIQUID UDC GT SCH (09:39)
[2023-05-14] MEDS: FERROUS SULFATE 330 MG/7.5 ML UDC- FOR SA ONLY GT SCH ×2 (09:39→21:00)
[2023-05-14] MEDS: levETIRAcetam 500 MG/5 ML LIQUID UDC GT SCH ×2 (09:39→21:00)
[2023-05-14] MEDS: ACIDOPHILUS/BULGARICUS CHEW TAB GT SCH ×2 (09:39→21:00)
[2023-05-14] MEDS: REMEDY ESSENTIAL ZINC PASTE 113 GM TP SCH ×2 (09:40→21:00)
[2023-05-14] MEDS: NYSTATIN CREAM 30 GM TUBE TP SCH ×4 (09:40→21:00)
[2023-05-14] MEDS: NEOMY/BACITRA/POLYMYXIN B OINT UD PACKET TP SCH ×2 (09:40→21:00)
[2023-05-14] MEDS: TRIAMCINOLONE ACET 0.1% OINT 15 GM TUBE TP SCH ×4 (09:40→21:00)
[2023-05-14 20:00] VITALS: TEMP 97.4
[2023-05-14] MEDS: FOLIC ACID 1 MG TABLET GT SCH (21:00)
[2023-05-14] MEDS: THIAMINE HCL 100 MG TABLET GT SCH (21:00)
[2023-05-14] MEDS: CHOLECALCIFEROL 1,000 UNIT TABLET GT SCH (21:00)
[2023-05-15] MEDS: IPRATROPIUM BROMIDE 0.5 MG/2.5 ML NEBU NEB SCH ×6 (02:57→22:59)
[2023-05-15] MEDS: ALBUTEROL SULFATE 2.5 MG/3 ML NEBU NEB SCH ×6 (02:58→22:59)
[2023-05-15] MEDS: MAGNESIUM OXIDE 400 MG TABLET GT SCH (06:05)
[2023-05-15] MEDS: BACLOFEN 20 MG TABLET GT SCH ×3 (06:05→22:16)
[2023-05-15] MEDS: OMEPRAZOLE 20 MG CAPSULE.DR GT SCH (06:08)
[2023-05-15] MEDS: MIDODRINE HCL 10 MG TABLET GT SCH ×3 (06:08→22:00)
[2023-05-15] MEDS: METOCLOPRAMIDE HCL 5 MG TABLET GT SCH ×3 (06:08→22:19)
[2023-05-15] MEDS: HYDROGEN PEROXIDE 3% 118 ML BOTTLE TP SCH ×2 (07:23→19:10)
[2023-05-15] MEDS: ACIDOPHILUS/BULGARICUS CHEW TAB GT SCH ×2 (09:17→21:00)
[2023-05-15] MEDS: PHENYTOIN 100 MG/4 ML UDC GT SCH ×2 (09:17→21:00)
[2023-05-15] MEDS: FERROUS SULFATE 330 MG/7.5 ML UDC- FOR SA ONLY GT SCH ×2 (09:17→21:00)
[2023-05-15] MEDS: REMEDY ESSENTIAL ZINC PASTE 113 GM TP SCH ×2 (09:18→21:00)
[2023-05-15] MEDS: TRIAMCINOLONE ACET 0.1% OINT 15 GM TUBE TP SCH ×4 (09:18→21:00)
[2023-05-15] MEDS: NEOMY/BACITRA/POLYMYXIN B OINT UD PACKET TP SCH ×2 (09:18→21:00)
[2023-05-15] MEDS: levETIRAcetam 500 MG/5 ML LIQUID UDC GT SCH ×2 (09:18→21:00)
[2023-05-15] MEDS: NYSTATIN CREAM 30 GM TUBE TP SCH ×4 (09:18→21:00)
[2023-05-15] MEDS: POTASSIUM CHLORIDE 40 MEQ/30 ML LIQUID UDC GT SCH (09:18)
[2023-05-15] MEDS: FUROSEMIDE 10 MG/ML GT SCH (09:18)
[2023-05-15 10:51] VITALS: TEMP 97.8
[2023-05-15 19:49] VITALS: TEMP 97.1
[2023-05-15] MEDS: THIAMINE HCL 100 MG TABLET GT SCH (21:00)
[2023-05-15] MEDS: CHOLECALCIFEROL 1,000 UNIT TABLET GT SCH (21:00)
[2023-05-15] MEDS: MIRALAX 17 GM POWD.PACK GT SCH (21:00)
[2023-05-15] MEDS: FOLIC ACID 1 MG TABLET GT SCH (21:00)
[2023-05-15] MEDS: PEPTAMEN AF 1000ML BAG GT PRN (22:22)
[2023-05-16] MEDS: ALBUTEROL SULFATE 2.5 MG/3 ML NEBU NEB SCH ×6 (03:12→23:01)
[2023-05-16] MEDS: IPRATROPIUM BROMIDE 0.5 MG/2.5 ML NEBU NEB SCH ×6 (03:12→23:01)
[2023-05-16] MEDS: MIDODRINE HCL 10 MG TABLET GT SCH ×3 (05:30→21:54)
[2023-05-16] MEDS: MAGNESIUM OXIDE 400 MG TABLET GT SCH (05:31)
[2023-05-16] MEDS: METOCLOPRAMIDE HCL 5 MG TABLET GT SCH ×3 (05:31→21:54)
[2023-05-16] MEDS: OMEPRAZOLE 20 MG CAPSULE.DR GT SCH (05:31)
[2023-05-16] MEDS: BACLOFEN 20 MG TABLET GT SCH ×3 (05:31→21:53)
[2023-05-16 07:42] VITALS: TEMP 97.2
[2023-05-16] MEDS: HYDROGEN PEROXIDE 3% 118 ML BOTTLE TP SCH ×2 (08:10→19:09)
[2023-05-16] MEDS: PHENYTOIN 100 MG/4 ML UDC GT SCH ×2 (09:13→21:57)
[2023-05-16] MEDS: FERROUS SULFATE 330 MG/7.5 ML UDC- FOR SA ONLY GT SCH ×2 (09:13→21:50)
[2023-05-16] MEDS: ACIDOPHILUS/BULGARICUS CHEW TAB GT SCH ×2 (09:13→21:50)
[2023-05-16] MEDS: FUROSEMIDE 10 MG/ML GT SCH (09:13)
[2023-05-16] MEDS: levETIRAcetam 500 MG/5 ML LIQUID UDC GT SCH ×2 (09:13→21:51)
[2023-05-16] MEDS: POTASSIUM CHLORIDE 40 MEQ/30 ML LIQUID UDC GT SCH (09:13)
[2023-05-16] MEDS: NEOMY/BACITRA/POLYMYXIN B OINT UD PACKET TP SCH ×2 (09:14→21:52)
[2023-05-16] MEDS: NYSTATIN CREAM 30 GM TUBE TP SCH ×4 (09:14→21:52)
[2023-05-16] MEDS: REMEDY ESSENTIAL ZINC PASTE 113 GM TP SCH ×2 (09:14→21:52)
[2023-05-16] MEDS: TRIAMCINOLONE ACET 0.1% OINT 15 GM TUBE TP SCH ×4 (09:14→21:52)
[2023-05-16 20:17] VITALS: TEMP 96.6
[2023-05-16] MEDS: FOLIC ACID 1 MG TABLET GT SCH (21:51)
[2023-05-16] MEDS: THIAMINE HCL 100 MG TABLET GT SCH (21:57)
[2023-05-16] MEDS: CHOLECALCIFEROL 1,000 UNIT TABLET GT SCH (21:57)
[2023-05-17] MEDS: IPRATROPIUM BROMIDE 0.5 MG/2.5 ML NEBU NEB SCH ×6 (03:18→23:02)
[2023-05-17] MEDS: ALBUTEROL SULFATE 2.5 MG/3 ML NEBU NEB SCH ×6 (03:18→23:03)
[2023-05-17] MEDS: OMEPRAZOLE 20 MG CAPSULE.DR GT SCH (06:09)
[2023-05-17] MEDS: BACLOFEN 20 MG TABLET GT SCH ×3 (06:09→22:00)
[2023-05-17] MEDS: MIDODRINE HCL 10 MG TABLET GT SCH ×3 (06:09→22:00)
[2023-05-17] MEDS: MAGNESIUM OXIDE 400 MG TABLET GT SCH (06:09)
[2023-05-17] MEDS: METOCLOPRAMIDE HCL 5 MG TABLET GT SCH ×3 (06:09→22:00)
[2023-05-17] MEDS: HYDROGEN PEROXIDE 3% 118 ML BOTTLE TP SCH ×2 (07:22→19:08)
[2023-05-17] MEDS: ACIDOPHILUS/BULGARICUS CHEW TAB GT SCH ×2 (08:55→21:02)
[2023-05-17] MEDS: levETIRAcetam 500 MG/5 ML LIQUID UDC GT SCH ×2 (08:55→21:02)
[2023-05-17] MEDS: NYSTATIN CREAM 30 GM TUBE TP SCH ×4 (08:55→21:03)
[2023-05-17] MEDS: POTASSIUM CHLORIDE 40 MEQ/30 ML LIQUID UDC GT SCH (08:55)
[2023-05-17] MEDS: PHENYTOIN 100 MG/4 ML UDC GT SCH ×2 (08:55→21:02)
[2023-05-17] MEDS: FUROSEMIDE 10 MG/ML GT SCH (08:55)
[2023-05-17] MEDS: TRIAMCINOLONE ACET 0.1% OINT 15 GM TUBE TP SCH ×4 (08:55→21:02)
[2023-05-17] MEDS: FERROUS SULFATE 330 MG/7.5 ML UDC- FOR SA ONLY GT SCH ×2 (08:55→21:02)
[2023-05-17] MEDS: REMEDY ESSENTIAL ZINC PASTE 113 GM TP SCH ×2 (08:55→21:03)
[2023-05-17] MEDS: NEOMY/BACITRA/POLYMYXIN B OINT UD PACKET TP SCH ×2 (08:56→21:03)
[2023-05-17 11:10] VITALS: TEMP 97
[2023-05-17] MEDS: PEPTAMEN AF 1000ML BAG GT PRN (11:12)
[2023-05-17 19:57] VITALS: TEMP 96.9
[2023-05-17] MEDS: FOLIC ACID 1 MG TABLET GT SCH (21:02)
[2023-05-17] MEDS: CHOLECALCIFEROL 1,000 UNIT TABLET GT SCH (21:02)
[2023-05-17] MEDS: THIAMINE HCL 100 MG TABLET GT SCH (21:02)
[2023-05-18] MEDS: IPRATROPIUM BROMIDE 0.5 MG/2.5 ML NEBU NEB SCH ×6 (03:06→23:30)
[2023-05-18] MEDS: ALBUTEROL SULFATE 2.5 MG/3 ML NEBU NEB SCH ×6 (03:06→23:30)
[2023-05-18] MEDS: MIDODRINE HCL 10 MG TABLET GT SCH ×3 (06:24→21:48)
[2023-05-18] MEDS: METOCLOPRAMIDE HCL 5 MG TABLET GT SCH ×3 (06:28→21:47)
[2023-05-18] MEDS: MAGNESIUM OXIDE 400 MG TABLET GT SCH (06:28)
[2023-05-18] MEDS: BACLOFEN 20 MG TABLET GT SCH ×3 (06:28→21:44)
[2023-05-18] MEDS: OMEPRAZOLE 20 MG CAPSULE.DR GT SCH (06:28)
[2023-05-18] MEDS: HYDROGEN PEROXIDE 3% 118 ML BOTTLE TP SCH ×2 (07:20→21:00)
[2023-05-18] MEDS: TRIAMCINOLONE ACET 0.1% OINT 15 GM TUBE TP SCH ×4 (10:00→21:43)
[2023-05-18] MEDS: ACIDOPHILUS/BULGARICUS CHEW TAB GT SCH ×2 (10:00→21:40)
[2023-05-18] MEDS: POTASSIUM CHLORIDE 40 MEQ/30 ML LIQUID UDC GT SCH (10:00)
[2023-05-18] MEDS: REMEDY ESSENTIAL ZINC PASTE 113 GM TP SCH ×2 (10:00→21:44)
[2023-05-18] MEDS: PHENYTOIN 100 MG/4 ML UDC GT SCH ×2 (10:00→21:47)
[2023-05-18] MEDS: FERROUS SULFATE 330 MG/7.5 ML UDC- FOR SA ONLY GT SCH ×2 (10:00→21:39)
[2023-05-18] MEDS: NYSTATIN CREAM 30 GM TUBE TP SCH ×4 (10:00→21:43)
[2023-05-18] MEDS: NEOMY/BACITRA/POLYMYXIN B OINT UD PACKET TP SCH ×2 (10:00→21:44)
[2023-05-18] MEDS: FUROSEMIDE 10 MG/ML GT SCH (10:00)
[2023-05-18] MEDS: levETIRAcetam 500 MG/5 ML LIQUID UDC GT SCH ×2 (10:00→21:42)
[2023-05-18] MEDS: VITAL AF 1.2 1,000 ML LIQUID GT PRN (17:47)
[2023-05-18 20:00] VITALS: TEMP 97.7
[2023-05-18] MEDS: THIAMINE HCL 100 MG TABLET GT SCH (21:42)
[2023-05-18] MEDS: MIRALAX 17 GM POWD.PACK GT SCH (21:42)
[2023-05-18] MEDS: FOLIC ACID 1 MG TABLET GT SCH (21:42)
[2023-05-18] MEDS: CHOLECALCIFEROL 1,000 UNIT TABLET GT SCH (21:43)
[2023-05-19] MEDS: IPRATROPIUM BROMIDE 0.5 MG/2.5 ML NEBU NEB SCH ×6 (03:52→23:10)
[2023-05-19] MEDS: ALBUTEROL SULFATE 2.5 MG/3 ML NEBU NEB SCH ×6 (03:52→23:10)
[2023-05-19] MEDS: MAGNESIUM OXIDE 400 MG TABLET GT SCH (05:53)
[2023-05-19] MEDS: BACLOFEN 20 MG TABLET GT SCH ×3 (05:53→21:20)
[2023-05-19] MEDS: METOCLOPRAMIDE HCL 5 MG TABLET GT SCH ×3 (05:55→21:21)
[2023-05-19] MEDS: OMEPRAZOLE 20 MG CAPSULE.DR GT SCH (05:55)
[2023-05-19] MEDS: MIDODRINE HCL 10 MG TABLET GT SCH ×3 (05:55→21:21)
[2023-05-19] MEDS: HYDROGEN PEROXIDE 3% 118 ML BOTTLE TP SCH ×2 (07:40→19:21)
[2023-05-19] MEDS: FERROUS SULFATE 330 MG/7.5 ML UDC- FOR SA ONLY GT SCH ×2 (08:32→21:19)
[2023-05-19] MEDS: PHENYTOIN 100 MG/4 ML UDC GT SCH ×2 (08:32→21:19)
[2023-05-19] MEDS: ACIDOPHILUS/BULGARICUS CHEW TAB GT SCH ×2 (08:33→21:19)
[2023-05-19] MEDS: POTASSIUM CHLORIDE 40 MEQ/30 ML LIQUID UDC GT SCH (08:33)
[2023-05-19] MEDS: TRIAMCINOLONE ACET 0.1% OINT 15 GM TUBE TP SCH ×4 (08:33→21:20)
[2023-05-19] MEDS: FUROSEMIDE 10 MG/ML GT SCH (08:33)
[2023-05-19] MEDS: levETIRAcetam 500 MG/5 ML LIQUID UDC GT SCH ×2 (08:33→21:20)
[2023-05-19] MEDS: REMEDY ESSENTIAL ZINC PASTE 113 GM TP SCH ×2 (08:34→21:20)
[2023-05-19] MEDS: NEOMY/BACITRA/POLYMYXIN B OINT UD PACKET TP SCH ×2 (08:34→21:20)
[2023-05-19] MEDS: NYSTATIN CREAM 30 GM TUBE TP SCH ×4 (08:34→21:20)
[2023-05-19 09:13] VITALS: TEMP 97
[2023-05-19 20:00] VITALS: TEMP 96
[2023-05-19] MEDS: FOLIC ACID 1 MG TABLET GT SCH (21:20)
[2023-05-19] MEDS: CHOLECALCIFEROL 1,000 UNIT TABLET GT SCH (21:20)
[2023-05-19] MEDS: THIAMINE HCL 100 MG TABLET GT SCH (21:20)
[2023-05-20] MEDS: IPRATROPIUM BROMIDE 0.5 MG/2.5 ML NEBU NEB SCH ×6 (03:28→23:30)
[2023-05-20] MEDS: ALBUTEROL SULFATE 2.5 MG/3 ML NEBU NEB SCH ×6 (03:28→23:30)
[2023-05-20] MEDS: BACLOFEN 20 MG TABLET GT SCH ×3 (06:09→22:00)
[2023-05-20] MEDS: MAGNESIUM OXIDE 400 MG TABLET GT SCH (06:09)
[2023-05-20] MEDS: METOCLOPRAMIDE HCL 5 MG TABLET GT SCH ×3 (06:10→22:00)
[2023-05-20] MEDS: MIDODRINE HCL 10 MG TABLET GT SCH ×3 (06:10→22:00)
[2023-05-20] MEDS: OMEPRAZOLE 20 MG CAPSULE.DR GT SCH (06:10)
[2023-05-20] MEDS: HYDROGEN PEROXIDE 3% 118 ML BOTTLE TP SCH ×2 (08:47→20:58)
[2023-05-20] MEDS: TRIAMCINOLONE ACET 0.1% OINT 15 GM TUBE TP SCH ×4 (09:00→21:00)
[2023-05-20] MEDS: NYSTATIN CREAM 30 GM TUBE TP SCH ×4 (09:00→21:00)
[2023-05-20] MEDS: FERROUS SULFATE 330 MG/7.5 ML UDC- FOR SA ONLY GT SCH ×2 (09:22→21:00)
[2023-05-20] MEDS: PHENYTOIN 100 MG/4 ML UDC GT SCH ×2 (09:22→21:00)
[2023-05-20] MEDS: ACIDOPHILUS/BULGARICUS CHEW TAB GT SCH ×2 (09:23→21:00)
[2023-05-20] MEDS: FUROSEMIDE 10 MG/ML GT SCH (09:23)
[2023-05-20] MEDS: levETIRAcetam 500 MG/5 ML LIQUID UDC GT SCH ×2 (09:24→21:00)
[2023-05-20] MEDS: POTASSIUM CHLORIDE 40 MEQ/30 ML LIQUID UDC GT SCH (09:25)
[2023-05-20] MEDS: REMEDY ESSENTIAL ZINC PASTE 113 GM TP SCH ×2 (09:25→21:00)
[2023-05-20] MEDS: NEOMY/BACITRA/POLYMYXIN B OINT UD PACKET TP SCH ×2 (09:25→21:00)
[2023-05-20 11:11] VITALS: TEMP 97
[2023-05-20 20:00] VITALS: TEMP 96.8
[2023-05-20] MEDS: THIAMINE HCL 100 MG TABLET GT SCH (21:00)
[2023-05-20] MEDS: MIRALAX 17 GM POWD.PACK GT SCH (21:00)
[2023-05-20] MEDS: CHOLECALCIFEROL 1,000 UNIT TABLET GT SCH (21:00)
[2023-05-20] MEDS: FOLIC ACID 1 MG TABLET GT SCH (21:00)
[2023-05-21] MEDS: ALBUTEROL SULFATE 2.5 MG/3 ML NEBU NEB SCH ×6 (04:05→23:08)
[2023-05-21] MEDS: IPRATROPIUM BROMIDE 0.5 MG/2.5 ML NEBU NEB SCH ×6 (04:05→23:08)
[2023-05-21] MEDS: MAGNESIUM OXIDE 400 MG TABLET GT SCH (05:46)
[2023-05-21] MEDS: BACLOFEN 20 MG TABLET GT SCH ×3 (05:46→21:54)
[2023-05-21] MEDS: OMEPRAZOLE 20 MG CAPSULE.DR GT SCH (05:47)
[2023-05-21] MEDS: MIDODRINE HCL 10 MG TABLET GT SCH ×3 (05:47→21:56)
[2023-05-21] MEDS: METOCLOPRAMIDE HCL 5 MG TABLET GT SCH ×3 (05:47→21:56)
[2023-05-21] MEDS: NEOMY/BACITRA/POLYMYXIN B OINT UD PACKET TP SCH ×2 (09:00→21:54)
[2023-05-21] MEDS: NYSTATIN CREAM 30 GM TUBE TP SCH ×4 (09:00→21:54)
[2023-05-21] MEDS: FUROSEMIDE 10 MG/ML GT SCH (09:20)
[2023-05-21] MEDS: levETIRAcetam 500 MG/5 ML LIQUID UDC GT SCH ×2 (09:20→21:53)
[2023-05-21] MEDS: ACIDOPHILUS/BULGARICUS CHEW TAB GT SCH ×2 (09:20→21:53)
[2023-05-21] MEDS: TRIAMCINOLONE ACET 0.1% OINT 15 GM TUBE TP SCH ×4 (09:20→21:54)
[2023-05-21] MEDS: POTASSIUM CHLORIDE 40 MEQ/30 ML LIQUID UDC GT SCH (09:20)
[2023-05-21] MEDS: FERROUS SULFATE 330 MG/7.5 ML UDC- FOR SA ONLY GT SCH ×2 (09:20→21:53)
[2023-05-21] MEDS: PHENYTOIN 100 MG/4 ML UDC GT SCH ×2 (09:20→21:53)
[2023-05-21] MEDS: REMEDY ESSENTIAL ZINC PASTE 113 GM TP SCH ×2 (09:21→21:54)
[2023-05-21] MEDS: HYDROGEN PEROXIDE 3% 118 ML BOTTLE TP SCH ×2 (09:27→19:10)
[2023-05-21 20:00] VITALS: TEMP 96
[2023-05-21] MEDS: FOLIC ACID 1 MG TABLET GT SCH (21:53)
[2023-05-21] MEDS: CHOLECALCIFEROL 1,000 UNIT TABLET GT SCH (21:53)
[2023-05-21] MEDS: THIAMINE HCL 100 MG TABLET GT SCH (21:53)
[2023-05-21] MEDS: VITAL AF 1.2 1,000 ML LIQUID GT PRN (22:54)
[2023-05-22] MEDS: IPRATROPIUM BROMIDE 0.5 MG/2.5 ML NEBU NEB SCH ×6 (03:08→23:21)
[2023-05-22] MEDS: ALBUTEROL SULFATE 2.5 MG/3 ML NEBU NEB SCH ×6 (03:08→23:21)
[2023-05-22] MEDS: BACLOFEN 20 MG TABLET GT SCH ×3 (05:20→21:21)
[2023-05-22] MEDS: MAGNESIUM OXIDE 400 MG TABLET GT SCH (05:20)
[2023-05-22] MEDS: MIDODRINE HCL 10 MG TABLET GT SCH ×3 (05:21→21:22)
[2023-05-22] MEDS: OMEPRAZOLE 20 MG CAPSULE.DR GT SCH (05:21)
[2023-05-22] MEDS: METOCLOPRAMIDE HCL 5 MG TABLET GT SCH ×3 (05:21→21:21)
[2023-05-22 07:53] VITALS: TEMP 98.1
[2023-05-22] MEDS: HYDROGEN PEROXIDE 3% 118 ML BOTTLE TP SCH ×2 (08:29→21:54)
[2023-05-22] MEDS: FUROSEMIDE 10 MG/ML GT SCH (08:31)
[2023-05-22] MEDS: TRIAMCINOLONE ACET 0.1% OINT 15 GM TUBE TP SCH ×4 (08:31→21:20)
[2023-05-22] MEDS: REMEDY ESSENTIAL ZINC PASTE 113 GM TP SCH ×2 (08:31→21:21)
[2023-05-22] MEDS: POTASSIUM CHLORIDE 40 MEQ/30 ML LIQUID UDC GT SCH (08:31)
[2023-05-22] MEDS: ACIDOPHILUS/BULGARICUS CHEW TAB GT SCH ×2 (08:31→21:17)
[2023-05-22] MEDS: NEOMY/BACITRA/POLYMYXIN B OINT UD PACKET TP SCH ×2 (08:31→21:21)
[2023-05-22] MEDS: PHENYTOIN 100 MG/4 ML UDC GT SCH ×2 (08:31→21:36)
[2023-05-22] MEDS: FERROUS SULFATE 330 MG/7.5 ML UDC- FOR SA ONLY GT SCH ×2 (08:31→21:19)
[2023-05-22] MEDS: NYSTATIN CREAM 30 GM TUBE TP SCH ×4 (08:31→21:21)
[2023-05-22] MEDS: levETIRAcetam 500 MG/5 ML LIQUID UDC GT SCH ×2 (08:31→21:36)
[2023-05-22 20:00] VITALS: TEMP 97
[2023-05-22] MEDS: MIRALAX 17 GM POWD.PACK GT SCH (21:18)
[2023-05-22] MEDS: FOLIC ACID 1 MG TABLET GT SCH (21:22)
[2023-05-22] MEDS: CHOLECALCIFEROL 1,000 UNIT TABLET GT SCH (21:23)
[2023-05-22] MEDS: THIAMINE HCL 100 MG TABLET GT SCH (21:23)
[2023-05-23] MEDS: IPRATROPIUM BROMIDE 0.5 MG/2.5 ML NEBU NEB SCH ×5 (03:36→23:09)
[2023-05-23] MEDS: ALBUTEROL SULFATE 2.5 MG/3 ML NEBU NEB SCH ×5 (03:36→23:09)
[2023-05-23 04:08] VITALS: TEMP 97.9
[2023-05-23] MEDS: MAGNESIUM OXIDE 400 MG TABLET GT SCH (05:43)
[2023-05-23] MEDS: BACLOFEN 20 MG TABLET GT SCH ×3 (05:43→21:20)
[2023-05-23] MEDS: METOCLOPRAMIDE HCL 5 MG TABLET GT SCH ×3 (05:43→21:21)
[2023-05-23] MEDS: OMEPRAZOLE 20 MG CAPSULE.DR GT SCH (05:43)
[2023-05-23] MEDS: MIDODRINE HCL 10 MG TABLET GT SCH ×3 (05:44→21:21)
[2023-05-23] MEDS: VITAL AF 1.2 1,000 ML LIQUID GT PRN (05:44)
[2023-05-23] MEDS: HYDROGEN PEROXIDE 3% 118 ML BOTTLE TP SCH ×2 (07:22→19:22)
[2023-05-23 07:51] VITALS: TEMP 97.1
[2023-05-23] MEDS: NEOMY/BACITRA/POLYMYXIN B OINT UD PACKET TP SCH ×2 (09:13→21:21)
[2023-05-23] MEDS: NYSTATIN CREAM 30 GM TUBE TP SCH ×4 (09:13→21:27)
[2023-05-23] MEDS: FERROUS SULFATE 330 MG/7.5 ML UDC- FOR SA ONLY GT SCH ×2 (09:13→21:27)
[2023-05-23] MEDS: ACIDOPHILUS/BULGARICUS CHEW TAB GT SCH ×2 (09:13→21:18)
[2023-05-23] MEDS: PHENYTOIN 100 MG/4 ML UDC GT SCH ×2 (09:13→21:18)
[2023-05-23] MEDS: FUROSEMIDE 10 MG/ML GT SCH (09:13)
[2023-05-23] MEDS: TRIAMCINOLONE ACET 0.1% OINT 15 GM TUBE TP SCH ×4 (09:13→21:28)
[2023-05-23] MEDS: REMEDY ESSENTIAL ZINC PASTE 113 GM TP SCH ×2 (09:13→21:22)
[2023-05-23] MEDS: POTASSIUM CHLORIDE 40 MEQ/30 ML LIQUID UDC GT SCH (09:13)
[2023-05-23] MEDS: levETIRAcetam 500 MG/5 ML LIQUID UDC GT SCH ×2 (09:13→21:19)
[2023-05-23 20:00] VITALS: TEMP 94
[2023-05-23] MEDS: CHOLECALCIFEROL 1,000 UNIT TABLET GT SCH (21:19)
[2023-05-23] MEDS: THIAMINE HCL 100 MG TABLET GT SCH (21:19)
[2023-05-23] MEDS: FOLIC ACID 1 MG TABLET GT SCH (21:20)
[2023-05-23 23:00] VITALS: TEMP 96.7
[2023-05-24] MEDS: IPRATROPIUM BROMIDE 0.5 MG/2.5 ML NEBU NEB SCH ×6 (03:30→23:31)
[2023-05-24] MEDS: ALBUTEROL SULFATE 2.5 MG/3 ML NEBU NEB SCH ×6 (03:30→23:31)
[2023-05-24 03:37] VITALS: TEMP 98.3
[2023-05-24 06:00] VITALS: TEMP 98.7
[2023-05-24] MEDS: MIDODRINE HCL 10 MG TABLET GT SCH ×3 (06:00→21:33)
[2023-05-24] MEDS: OMEPRAZOLE 20 MG CAPSULE.DR GT SCH (06:19)
[2023-05-24] MEDS: BACLOFEN 20 MG TABLET GT SCH ×3 (06:19→21:29)
[2023-05-24] MEDS: METOCLOPRAMIDE HCL 5 MG TABLET GT SCH ×3 (06:19→21:29)
[2023-05-24] MEDS: MAGNESIUM OXIDE 400 MG TABLET GT SCH (06:19)
[2023-05-24] MEDS: PHENYTOIN 100 MG/4 ML UDC GT SCH ×2 (08:51→21:00)
[2023-05-24] MEDS: ACIDOPHILUS/BULGARICUS CHEW TAB GT SCH ×2 (08:55→21:28)
[2023-05-24] MEDS: FERROUS SULFATE 330 MG/7.5 ML UDC- FOR SA ONLY GT SCH ×2 (08:55→21:29)
[2023-05-24] MEDS: FUROSEMIDE 10 MG/ML GT SCH (08:58)
[2023-05-24] MEDS: levETIRAcetam 500 MG/5 ML LIQUID UDC GT SCH ×2 (08:59→21:00)
[2023-05-24] MEDS: HYDROGEN PEROXIDE 3% 118 ML BOTTLE TP SCH ×2 (09:00→19:19)
[2023-05-24] MEDS: POTASSIUM CHLORIDE 40 MEQ/30 ML LIQUID UDC GT SCH (09:02)
[2023-05-24] MEDS: REMEDY ESSENTIAL ZINC PASTE 113 GM TP SCH ×2 (09:03→21:29)
[2023-05-24] MEDS: NYSTATIN CREAM 30 GM TUBE TP SCH ×4 (09:04→21:28)
[2023-05-24] MEDS: TRIAMCINOLONE ACET 0.1% OINT 15 GM TUBE TP SCH ×4 (09:04→21:28)
[2023-05-24] MEDS: NEOMY/BACITRA/POLYMYXIN B OINT UD PACKET TP SCH ×2 (09:04→21:29)
[2023-05-24 12:00] VITALS: TEMP 90.5
[2023-05-24 17:49] VITALS: TEMP 94.1
[2023-05-24] MEDS: CHOLECALCIFEROL 1,000 UNIT TABLET GT SCH (21:28)
[2023-05-24] MEDS: THIAMINE HCL 100 MG TABLET GT SCH (21:28)
[2023-05-24] MEDS: FOLIC ACID 1 MG TABLET GT SCH (21:28)
[2023-05-24 21:35] VITALS: TEMP 97.5
[2023-05-25 01:34] VITALS: TEMP 97.5
[2023-05-25] MEDS: IPRATROPIUM BROMIDE 0.5 MG/2.5 ML NEBU NEB SCH ×6 (03:31→23:14)
[2023-05-25] MEDS: ALBUTEROL SULFATE 2.5 MG/3 ML NEBU NEB SCH ×6 (03:31→23:14)
[2023-05-25 04:13] VITALS: TEMP 98
[2023-05-25] MEDS: BACLOFEN 20 MG TABLET GT SCH ×3 (05:05→21:13)
[2023-05-25] MEDS: MAGNESIUM OXIDE 400 MG TABLET GT SCH (05:05)
[2023-05-25] MEDS: MIDODRINE HCL 10 MG TABLET GT SCH ×3 (05:06→21:13)
[2023-05-25] MEDS: METOCLOPRAMIDE HCL 5 MG TABLET GT SCH ×3 (05:06→21:13)
[2023-05-25] MEDS: OMEPRAZOLE 20 MG CAPSULE.DR GT SCH (05:06)
[2023-05-25 07:31] VITALS: TEMP 96.9
[2023-05-25 08:02] LABS: BASOPHILS % (AUTO) 0.5 % (0.0-2.0); EOSINOPHILS # (AUTO) 0.1 K/uL (0.0-0.7); EOSINOPHILS % (AUTO) 2.5 % (0.0-7.0); HEMATOCRIT 28.6 % (31.2-41.9); HEMOGLOBIN 9.4 g/dL (10.9-14.3); LYMPHOCYTES # (AUTO) 1.3 K/uL (0.8-4.8); LYMPHOCYTES % (AUTO) 27.7 % (20.5-51.5); MEAN CORPUSCULAR HEMOGLOBIN 27.8 uug (24.7-32.8); MEAN CORPUSCULAR HGB CONC 33 g/dL (32.3-35.6); MEAN CORPUSCULAR VOLUME 84.6 fL (75.5-95.3); MONOCYTES # (AUTO) 0.4 K/uL (0.1-1.30); MONOCYTES % (AUTO) 7.8 % (0.0-11.0); NEUTROPHILS # (AUTO) 2.9 K/uL (1.8-8.9); NEUTROPHILS % (AUTO) 61.5 % (38.5-71.5); PLATELET COUNT (AUTO) 177 K/uL (179-408); RED BLOOD CELL COUNT(AUTO) 3.38 MIL/uL (3.63-4.92); WHITE BLOOD COUNT (AUTO) 4.7 K/uL (3.8-11.8)
[2023-05-25 08:05] LABS: DIFFERENTIAL COMMENT 1
[2023-05-25 08:19] LABS: CALCIUM 8.8 mg/dL (8.5-10.1); CREATININE 0.6 mg/dL (0.6-1.3); MAGNESIUM 1.9 mg/dL (1.8-2.4); PHOSPHOROUS 4.5 mg/dL (2.5-4.9); POTASSIUM 3.6 mmol/L (3.5-5.1)
[2023-05-25] MEDS: HYDROGEN PEROXIDE 3% 118 ML BOTTLE TP SCH ×2 (08:29→19:14)
[2023-05-25] MEDS: FUROSEMIDE 10 MG/ML GT SCH (09:18)
[2023-05-25] MEDS: ACIDOPHILUS/BULGARICUS CHEW TAB GT SCH ×2 (09:18→20:15)
[2023-05-25] MEDS: FERROUS SULFATE 330 MG/7.5 ML UDC- FOR SA ONLY GT SCH ×2 (09:18→20:13)
[2023-05-25] MEDS: PHENYTOIN 100 MG/4 ML UDC GT SCH ×2 (09:18→20:13)
[2023-05-25] MEDS: levETIRAcetam 500 MG/5 ML LIQUID UDC GT SCH ×2 (09:18→20:15)
[2023-05-25] MEDS: POTASSIUM CHLORIDE 40 MEQ/30 ML LIQUID UDC GT SCH (09:18)
[2023-05-25] MEDS: TRIAMCINOLONE ACET 0.1% OINT 15 GM TUBE TP SCH ×4 (09:19→20:17)
[2023-05-25] MEDS: NEOMY/BACITRA/POLYMYXIN B OINT UD PACKET TP SCH ×2 (09:19→20:19)
[2023-05-25] MEDS: NYSTATIN CREAM 30 GM TUBE TP SCH ×4 (09:19→20:18)
[2023-05-25] MEDS: REMEDY ESSENTIAL ZINC PASTE 113 GM TP SCH ×2 (09:19→20:18)
[2023-05-25] MEDS: MIRALAX 17 GM POWD.PACK GT SCH (20:15)
[2023-05-25] MEDS: FOLIC ACID 1 MG TABLET GT SCH (20:15)
[2023-05-25] MEDS: CHOLECALCIFEROL 1,000 UNIT TABLET GT SCH (20:16)
[2023-05-25] MEDS: THIAMINE HCL 100 MG TABLET GT SCH (20:16)
[2023-05-25 20:43] VITALS: TEMP 97
[2023-05-26] MEDS: IPRATROPIUM BROMIDE 0.5 MG/2.5 ML NEBU NEB SCH ×6 (03:35→23:07)
[2023-05-26] MEDS: ALBUTEROL SULFATE 2.5 MG/3 ML NEBU NEB SCH ×6 (03:35→23:07)
[2023-05-26] MEDS: MAGNESIUM OXIDE 400 MG TABLET GT SCH (05:08)
[2023-05-26] MEDS: BACLOFEN 20 MG TABLET GT SCH ×3 (05:08→22:16)
[2023-05-26] MEDS: MIDODRINE HCL 10 MG TABLET GT SCH ×3 (05:09→22:16)
[2023-05-26] MEDS: METOCLOPRAMIDE HCL 5 MG TABLET GT SCH ×3 (05:09→22:16)
[2023-05-26] MEDS: OMEPRAZOLE 20 MG CAPSULE.DR GT SCH (05:09)
[2023-05-26 07:32] VITALS: TEMP 97.7
[2023-05-26] MEDS: PHENYTOIN 100 MG/4 ML UDC GT SCH ×2 (08:45→21:00)
[2023-05-26] MEDS: levETIRAcetam 500 MG/5 ML LIQUID UDC GT SCH ×2 (08:45→21:00)
[2023-05-26] MEDS: POTASSIUM CHLORIDE 40 MEQ/30 ML LIQUID UDC GT SCH (08:45)
[2023-05-26] MEDS: FUROSEMIDE 10 MG/ML GT SCH (08:45)
[2023-05-26] MEDS: ACIDOPHILUS/BULGARICUS CHEW TAB GT SCH ×2 (08:45→21:00)
[2023-05-26] MEDS: FERROUS SULFATE 330 MG/7.5 ML UDC- FOR SA ONLY GT SCH ×2 (08:45→21:00)
[2023-05-26] MEDS: REMEDY ESSENTIAL ZINC PASTE 113 GM TP SCH ×2 (08:46→21:00)
[2023-05-26] MEDS: NEOMY/BACITRA/POLYMYXIN B OINT UD PACKET TP SCH ×2 (08:46→21:00)
[2023-05-26] MEDS: TRIAMCINOLONE ACET 0.1% OINT 15 GM TUBE TP SCH (08:46)
[2023-05-26] MEDS: NYSTATIN CREAM 30 GM TUBE TP SCH (08:46)
[2023-05-26] MEDS: HYDROGEN PEROXIDE 3% 118 ML BOTTLE TP SCH ×2 (09:00→19:15)
[2023-05-26 20:00] VITALS: TEMP 97.5
[2023-05-26] MEDS: CHOLECALCIFEROL 1,000 UNIT TABLET GT SCH (21:00)
[2023-05-26] MEDS: FOLIC ACID 1 MG TABLET GT SCH (21:00)
[2023-05-26] MEDS: THIAMINE HCL 100 MG TABLET GT SCH (21:00)
[2023-05-27] MEDS: IPRATROPIUM BROMIDE 0.5 MG/2.5 ML NEBU NEB SCH ×6 (03:00→23:16)
[2023-05-27] MEDS: ALBUTEROL SULFATE 2.5 MG/3 ML NEBU NEB SCH ×6 (03:00→23:16)
[2023-05-27] MEDS: OMEPRAZOLE 20 MG CAPSULE.DR GT SCH (05:40)
[2023-05-27] MEDS: BACLOFEN 20 MG TABLET GT SCH ×3 (05:40→21:12)
[2023-05-27] MEDS: VITAL AF 1.2 1,000 ML LIQUID GT PRN (05:40)
[2023-05-27] MEDS: METOCLOPRAMIDE HCL 5 MG TABLET GT SCH ×3 (05:40→21:26)
[2023-05-27] MEDS: MAGNESIUM OXIDE 400 MG TABLET GT SCH (05:40)
[2023-05-27] MEDS: MIDODRINE HCL 10 MG TABLET GT SCH ×3 (05:40→21:26)
[2023-05-27] MEDS: HYDROGEN PEROXIDE 3% 118 ML BOTTLE TP SCH ×3 (07:25→23:16)
[2023-05-27 08:00] VITALS: TEMP 97.4
[2023-05-27] MEDS: FERROUS SULFATE 330 MG/7.5 ML UDC- FOR SA ONLY GT SCH ×2 (08:54→21:10)
[2023-05-27] MEDS: PHENYTOIN 100 MG/4 ML UDC GT SCH ×2 (08:54→21:10)
[2023-05-27] MEDS: ACIDOPHILUS/BULGARICUS CHEW TAB GT SCH ×2 (08:55→21:10)
[2023-05-27] MEDS: FUROSEMIDE 10 MG/ML GT SCH (08:55)
[2023-05-27] MEDS: levETIRAcetam 500 MG/5 ML LIQUID UDC GT SCH ×2 (08:56→21:11)
[2023-05-27] MEDS: REMEDY ESSENTIAL ZINC PASTE 113 GM TP SCH ×2 (08:56→21:12)
[2023-05-27] MEDS: POTASSIUM CHLORIDE 40 MEQ/30 ML LIQUID UDC GT SCH (08:56)
[2023-05-27 20:00] VITALS: TEMP 97
[2023-05-27] MEDS: FOLIC ACID 1 MG TABLET GT SCH (21:10)
[2023-05-27] MEDS: MIRALAX 17 GM POWD.PACK GT SCH (21:11)
[2023-05-27] MEDS: CHOLECALCIFEROL 1,000 UNIT TABLET GT SCH (21:12)
[2023-05-27] MEDS: THIAMINE HCL 100 MG TABLET GT SCH (21:12)
[2023-05-28] MEDS: IPRATROPIUM BROMIDE 0.5 MG/2.5 ML NEBU NEB SCH ×6 (03:28→23:06)
[2023-05-28] MEDS: ALBUTEROL SULFATE 2.5 MG/3 ML NEBU NEB SCH ×6 (03:28→23:06)
[2023-05-28] MEDS: OMEPRAZOLE 20 MG CAPSULE.DR GT SCH (05:25)
[2023-05-28] MEDS: METOCLOPRAMIDE HCL 5 MG TABLET GT SCH ×3 (05:25→21:27)
[2023-05-28] MEDS: MIDODRINE HCL 10 MG TABLET GT SCH ×3 (05:25→21:26)
[2023-05-28] MEDS: BACLOFEN 20 MG TABLET GT SCH ×3 (05:25→21:26)
[2023-05-28] MEDS: MAGNESIUM OXIDE 400 MG TABLET GT SCH (05:25)
[2023-05-28 08:00] VITALS: TEMP 97.5
[2023-05-28] MEDS: PHENYTOIN 100 MG/4 ML UDC GT SCH ×2 (08:48→21:22)
[2023-05-28] MEDS: FUROSEMIDE 10 MG/ML GT SCH (08:48)
[2023-05-28] MEDS: ACIDOPHILUS/BULGARICUS CHEW TAB GT SCH ×2 (08:49→21:24)
[2023-05-28] MEDS: levETIRAcetam 500 MG/5 ML LIQUID UDC GT SCH ×2 (08:51→21:25)
[2023-05-28] MEDS: FERROUS SULFATE 330 MG/7.5 ML UDC- FOR SA ONLY GT SCH ×2 (08:51→21:24)
[2023-05-28] MEDS: POTASSIUM CHLORIDE 40 MEQ/30 ML LIQUID UDC GT SCH (08:52)
[2023-05-28] MEDS: REMEDY ESSENTIAL ZINC PASTE 113 GM TP SCH ×2 (08:53→21:26)
[2023-05-28 20:00] VITALS: TEMP 89.2
[2023-05-28] MEDS: HYDROGEN PEROXIDE 3% 118 ML BOTTLE TP SCH (21:00)
[2023-05-28] MEDS: FOLIC ACID 1 MG TABLET GT SCH (21:24)
[2023-05-28] MEDS: THIAMINE HCL 100 MG TABLET GT SCH (21:25)
[2023-05-28] MEDS: CHOLECALCIFEROL 1,000 UNIT TABLET GT SCH (21:26)
[2023-05-28 22:00] VITALS: TEMP 91.3
[2023-05-29] VITALS: TEMP 93.1
[2023-05-29 02:02] VITALS: TEMP 94.8
[2023-05-29] MEDS: IPRATROPIUM BROMIDE 0.5 MG/2.5 ML NEBU NEB SCH ×6 (03:02→23:03)
[2023-05-29] MEDS: ALBUTEROL SULFATE 2.5 MG/3 ML NEBU NEB SCH ×6 (03:02→23:03)
[2023-05-29 04:00] VITALS: TEMP 95.4
[2023-05-29] MEDS: MAGNESIUM OXIDE 400 MG TABLET GT SCH (05:06)
[2023-05-29] MEDS: BACLOFEN 20 MG TABLET GT SCH ×3 (05:06→22:00)
[2023-05-29] MEDS: MIDODRINE HCL 10 MG TABLET GT SCH ×3 (05:07→22:01)
[2023-05-29] MEDS: OMEPRAZOLE 20 MG CAPSULE.DR GT SCH (05:07)
[2023-05-29] MEDS: METOCLOPRAMIDE HCL 5 MG TABLET GT SCH ×3 (05:07→22:01)
[2023-05-29 06:00] VITALS: TEMP 98.1
[2023-05-29] MEDS: HYDROGEN PEROXIDE 3% 118 ML BOTTLE TP SCH ×2 (08:03→19:13)
[2023-05-29 08:57] VITALS: TEMP 98.2
[2023-05-29] MEDS: PHENYTOIN 100 MG/4 ML UDC GT SCH ×2 (09:13→21:56)
[2023-05-29] MEDS: ACIDOPHILUS/BULGARICUS CHEW TAB GT SCH ×2 (09:13→21:59)
[2023-05-29] MEDS: FUROSEMIDE 10 MG/ML GT SCH (09:13)
[2023-05-29] MEDS: FERROUS SULFATE 330 MG/7.5 ML UDC- FOR SA ONLY GT SCH ×2 (09:13→21:59)
[2023-05-29] MEDS: levETIRAcetam 500 MG/5 ML LIQUID UDC GT SCH ×2 (09:13→21:59)
[2023-05-29] MEDS: REMEDY ESSENTIAL ZINC PASTE 113 GM TP SCH ×2 (09:14→21:00)
[2023-05-29] MEDS: POTASSIUM CHLORIDE 40 MEQ/30 ML LIQUID UDC GT SCH (09:14)
[2023-05-29 20:00] VITALS: TEMP 96.8
[2023-05-29] MEDS: CHOLECALCIFEROL 1,000 UNIT TABLET GT SCH (21:00)
[2023-05-29] MEDS: THIAMINE HCL 100 MG TABLET GT SCH (21:00)
[2023-05-29] MEDS: FOLIC ACID 1 MG TABLET GT SCH (21:59)
[2023-05-29] MEDS: MIRALAX 17 GM POWD.PACK GT SCH (22:00)
[2023-05-30] MEDS: IPRATROPIUM BROMIDE 0.5 MG/2.5 ML NEBU NEB SCH ×6 (03:30→23:05)
[2023-05-30] MEDS: ALBUTEROL SULFATE 2.5 MG/3 ML NEBU NEB SCH ×6 (03:30→23:05)
[2023-05-30] MEDS: BACLOFEN 20 MG TABLET GT SCH ×3 (06:55→22:51)
[2023-05-30] MEDS: MIDODRINE HCL 10 MG TABLET GT SCH ×3 (06:56→22:52)
[2023-05-30] MEDS: METOCLOPRAMIDE HCL 5 MG TABLET GT SCH ×3 (06:56→22:52)
[2023-05-30] MEDS: OMEPRAZOLE 20 MG CAPSULE.DR GT SCH (06:56)
[2023-05-30] MEDS: MAGNESIUM OXIDE 400 MG TABLET GT SCH (06:56)
[2023-05-30] MEDS: VITAL AF 1.2 1,000 ML LIQUID GT PRN (07:25)
[2023-05-30 07:50] VITALS: TEMP 97.2
[2023-05-30] MEDS: PHENYTOIN 100 MG/4 ML UDC GT SCH ×2 (08:45→21:00)
[2023-05-30] MEDS: ACIDOPHILUS/BULGARICUS CHEW TAB GT SCH ×2 (08:46→21:00)
[2023-05-30] MEDS: FERROUS SULFATE 330 MG/7.5 ML UDC- FOR SA ONLY GT SCH ×2 (08:46→21:00)
[2023-05-30] MEDS: FUROSEMIDE 10 MG/ML GT SCH (08:48)
[2023-05-30] MEDS: levETIRAcetam 500 MG/5 ML LIQUID UDC GT SCH ×2 (08:48→21:00)
[2023-05-30] MEDS: REMEDY ESSENTIAL ZINC PASTE 113 GM TP SCH ×2 (08:49→21:00)
[2023-05-30] MEDS: POTASSIUM CHLORIDE 40 MEQ/30 ML LIQUID UDC GT SCH (08:49)
[2023-05-30] MEDS: HYDROGEN PEROXIDE 3% 118 ML BOTTLE TP SCH ×2 (09:00→19:05)
[2023-05-30 20:00] VITALS: TEMP 94.5
[2023-05-30] MEDS: THIAMINE HCL 100 MG TABLET GT SCH (21:00)
[2023-05-30] MEDS: CHOLECALCIFEROL 1,000 UNIT TABLET GT SCH (21:00)
[2023-05-30] MEDS: FOLIC ACID 1 MG TABLET GT SCH (21:00)
[2023-05-31] MEDS: ALBUTEROL SULFATE 2.5 MG/3 ML NEBU NEB SCH ×6 (03:34→23:12)
[2023-05-31] MEDS: IPRATROPIUM BROMIDE 0.5 MG/2.5 ML NEBU NEB SCH ×6 (03:34→23:12)
[2023-05-31] MEDS: BACLOFEN 20 MG TABLET GT SCH ×3 (05:51→22:45)
[2023-05-31] MEDS: OMEPRAZOLE 20 MG CAPSULE.DR GT SCH (05:51)
[2023-05-31] MEDS: METOCLOPRAMIDE HCL 5 MG TABLET GT SCH ×3 (05:51→22:46)
[2023-05-31] MEDS: MAGNESIUM OXIDE 400 MG TABLET GT SCH (05:51)
[2023-05-31] MEDS: MIDODRINE HCL 10 MG TABLET GT SCH ×3 (05:52→22:46)
[2023-05-31 08:00] VITALS: TEMP 97
[2023-05-31] MEDS: HYDROGEN PEROXIDE 3% 118 ML BOTTLE TP SCH ×2 (08:03→19:13)
[2023-05-31] MEDS: FUROSEMIDE 10 MG/ML GT SCH (09:29)
[2023-05-31] MEDS: PHENYTOIN 100 MG/4 ML UDC GT SCH ×2 (09:29→20:41)
[2023-05-31] MEDS: ACIDOPHILUS/BULGARICUS CHEW TAB GT SCH ×2 (09:30→20:41)
[2023-05-31] MEDS: FERROUS SULFATE 330 MG/7.5 ML UDC- FOR SA ONLY GT SCH ×2 (09:30→20:41)
[2023-05-31] MEDS: levETIRAcetam 500 MG/5 ML LIQUID UDC GT SCH ×2 (09:31→20:41)
[2023-05-31] MEDS: POTASSIUM CHLORIDE 40 MEQ/30 ML LIQUID UDC GT SCH (09:32)
[2023-05-31] MEDS: REMEDY ESSENTIAL ZINC PASTE 113 GM TP SCH ×2 (09:33→20:42)
[2023-05-31 14:29] LABS: BASOPHILS # (AUTO) 0.1 K/UL (0.0-0.2); EOSINOPHILS # (AUTO) 0.1 K/uL (0.0-0.7); HEMATOCRIT 24.6 % (31.2-41.9); HEMOGLOBIN 7.9 g/dL (10.9-14.3); LYMPHOCYTES # (AUTO) 1.4 K/uL (0.8-4.8); LYMPHOCYTES % (AUTO) 11.6 % (20.5-51.5); MEAN CORPUSCULAR HEMOGLOBIN 27.6 uug (24.7-32.8); MEAN CORPUSCULAR HGB CONC 32 g/dL (32.3-35.6); MEAN CORPUSCULAR VOLUME 85.5 fL (75.5-95.3); MONOCYTES # (AUTO) 0.5 K/uL (0.1-1.30); MONOCYTES % (AUTO) 4.4 % (0.0-11.0); NEUTROPHILS # (AUTO) 9.6 K/uL (1.8-8.9); PLATELET COUNT (AUTO) 190 K/uL (179-408); RED BLOOD CELL COUNT(AUTO) 2.87 MIL/uL (3.63-4.92); RED CELL DISTRIBUTION WIDTH 21.1 % (12.3-17.7); WHITE BLOOD COUNT (AUTO) 11.7 K/uL (3.8-11.8)
[2023-05-31 14:34] LABS: DIFFERENTIAL COMMENT 1
[2023-05-31 14:42] LABS: CALCIUM 9.2 mg/dL (8.5-10.1); CARBON DIOXIDE 21 mmol/L (21-32); CHLORIDE 105 mmol/L (98-107); CREATININE 0.5 mg/dL (0.6-1.3); GLUCOSE 104 mg/dL (74-106); SODIUM SERUM 139 mmol/L (136-145); UREA NITROGEN, BLOOD 15 mg/dL (7-18)
[2023-05-31 14:47] LABS: MAGNESIUM 1.9 mg/dL (1.8-2.4); PHOSPHOROUS 3.3 mg/dL (2.5-4.9)
[2023-05-31 14:48] LABS: ALANINE AMINOTRANSFERASE 87 U/L (14-59); ALBUMIN 2.1 g/dL (3.4-5.0); ALKALINE PHOSPHATASE 275 U/L (50-136); ASPARTATE AMINOTRANSFERASE 23 U/L (15-37); BILIRUBIN,TOTAL 0.2 mg/dL (0.2-1.0); TOTAL PROTEIN, SERUM 7.7 g/dL (6.4-8.2)
[2023-05-31 14:58] LABS: THYROID STIMULATING HORMONE 0.054 mIU/mL (0.358-3.740)
[2023-05-31 15:49] LABS: *BILIRUBIN,URIN NEGATIVE (NEGATIVE); *BLOOD, URINE 1+ (NEGATIVE); *COLOR,URINE YELLOW (YELLOW); *KETONES,URINE NEGATIVE (NEGATIVE); *UROBILINOGEN,URINE 0.2 E.U./dl (NORMAL); LEUKOCYTE ESTERASE ,URINE 1+ (NEGATIVE); NITRITE, URINE NEGATIVE (NEGATIVE); PH,URINE 8.5 (5.0-8.0); UGLUCOSE NEGATIVE (NEGATIVE)
[2023-05-31 16:09] LABS: *CLARITY,URINE HAZY (CLEAR); *PROTEIN,URINE 3+ (NEGATIVE)
[2023-05-31 16:39] LABS: BACTERIA,URINE MANY /HPF (NONE SEEN); SQUAMOUS EPITHELIAL CELL,UR FEW /HPF (NONE SEEN)
[2023-05-31] MEDS: VITAL AF 1.2 1,000 ML LIQUID GT PRN (19:24)
[2023-05-31 20:00] VITALS: TEMP 94.3
[2023-05-31] MEDS: FOLIC ACID 1 MG TABLET GT SCH (20:41)
[2023-05-31] MEDS: CHOLECALCIFEROL 1,000 UNIT TABLET GT SCH (20:42)
[2023-05-31] MEDS: THIAMINE HCL 100 MG TABLET GT SCH (20:42)
[2023-06-01] MEDS: ALBUTEROL SULFATE 2.5 MG/3 ML NEBU NEB SCH ×6 (03:16→23:30)
[2023-06-01] MEDS: IPRATROPIUM BROMIDE 0.5 MG/2.5 ML NEBU NEB SCH ×6 (03:16→23:30)
[2023-06-01] MEDS: MAGNESIUM OXIDE 400 MG TABLET GT SCH (05:42)
[2023-06-01] MEDS: BACLOFEN 20 MG TABLET GT SCH ×3 (05:42→21:01)
[2023-06-01] MEDS: METOCLOPRAMIDE HCL 5 MG TABLET GT SCH ×3 (05:43→21:02)
[2023-06-01] MEDS: MIDODRINE HCL 10 MG TABLET GT SCH ×3 (05:43→21:06)
[2023-06-01] MEDS: OMEPRAZOLE 20 MG CAPSULE.DR GT SCH (05:43)
[2023-06-01] MEDS: HYDROGEN PEROXIDE 3% 118 ML BOTTLE TP SCH ×2 (07:19→19:20)
[2023-06-01 07:43] VITALS: TEMP 96.8
[2023-06-01] MEDS: FERROUS SULFATE 330 MG/7.5 ML UDC- FOR SA ONLY GT SCH ×2 (09:30→21:01)
[2023-06-01] MEDS: FUROSEMIDE 10 MG/ML GT SCH (09:30)
[2023-06-01] MEDS: levETIRAcetam 500 MG/5 ML LIQUID UDC GT SCH ×2 (09:30→21:01)
[2023-06-01] MEDS: ACIDOPHILUS/BULGARICUS CHEW TAB GT SCH ×2 (09:30→21:01)
[2023-06-01] MEDS: PHENYTOIN 100 MG/4 ML UDC GT SCH ×2 (09:30→21:01)
[2023-06-01] MEDS: POTASSIUM CHLORIDE 40 MEQ/30 ML LIQUID UDC GT SCH (09:30)
[2023-06-01] MEDS: REMEDY ESSENTIAL ZINC PASTE 113 GM TP SCH ×2 (09:30→21:01)
[2023-06-01 20:00] VITALS: TEMP 97
[2023-06-01] MEDS: THIAMINE HCL 100 MG TABLET GT SCH (21:01)
[2023-06-01] MEDS: FOLIC ACID 1 MG TABLET GT SCH (21:01)
[2023-06-01] MEDS: CHOLECALCIFEROL 1,000 UNIT TABLET GT SCH (21:01)
[2023-06-01] MEDS: MIRALAX 17 GM POWD.PACK GT SCH (21:01)
[2023-06-01] MEDS: CEFEPIME HCL 1 G in IV DEXTROSE 5% 50 ML IV SCH (23:06)
[2023-06-02] MEDS: IPRATROPIUM BROMIDE 0.5 MG/2.5 ML NEBU NEB SCH ×6 (03:39→23:30)
[2023-06-02] MEDS: ALBUTEROL SULFATE 2.5 MG/3 ML NEBU NEB SCH ×6 (03:39→23:30)
[2023-06-02] MEDS: MAGNESIUM OXIDE 400 MG TABLET GT SCH (05:32)
[2023-06-02] MEDS: BACLOFEN 20 MG TABLET GT SCH ×3 (05:32→22:09)
[2023-06-02] MEDS: METOCLOPRAMIDE HCL 5 MG TABLET GT SCH ×3 (05:33→22:10)
[2023-06-02] MEDS: OMEPRAZOLE 20 MG CAPSULE.DR GT SCH (05:33)
[2023-06-02] MEDS: MIDODRINE HCL 10 MG TABLET GT SCH ×3 (05:33→22:10)
[2023-06-02] MEDS: VITAL AF 1.2 1,000 ML LIQUID GT PRN (05:45)
[2023-06-02] MEDS: CEFEPIME HCL 1 G in IV DEXTROSE 5% 50 ML IV SCH ×3 (06:00→21:31)
[2023-06-02 07:30] VITALS: TEMP 97.8
[2023-06-02] MEDS: HYDROGEN PEROXIDE 3% 118 ML BOTTLE TP SCH ×2 (08:10→20:00)
[2023-06-02] MEDS: POTASSIUM CHLORIDE 40 MEQ/30 ML LIQUID UDC GT SCH (09:00)
[2023-06-02] MEDS: ACIDOPHILUS/BULGARICUS CHEW TAB GT SCH ×2 (09:00→21:00)
[2023-06-02] MEDS: REMEDY ESSENTIAL ZINC PASTE 113 GM TP SCH ×2 (09:00→21:00)
[2023-06-02] MEDS: PHENYTOIN 100 MG/4 ML UDC GT SCH ×2 (09:00→21:00)
[2023-06-02] MEDS: FERROUS SULFATE 330 MG/7.5 ML UDC- FOR SA ONLY GT SCH ×2 (09:00→21:00)
[2023-06-02] MEDS: FUROSEMIDE 10 MG/ML GT SCH (09:00)
[2023-06-02] MEDS: levETIRAcetam 500 MG/5 ML LIQUID UDC GT SCH ×2 (09:00→21:00)
[2023-06-02] MEDS: VANCOMYCIN IV 1,000 MG in IV DEXTROSE 5% 250 ML IV SCH ×3 (09:47→22:44)
[2023-06-02 20:00] VITALS: TEMP 97.6
[2023-06-02] MEDS: CHOLECALCIFEROL 1,000 UNIT TABLET GT SCH (21:00)
[2023-06-02] MEDS: FOLIC ACID 1 MG TABLET GT SCH (21:00)
[2023-06-02] MEDS: THIAMINE HCL 100 MG TABLET GT SCH (21:00)
[2023-06-03] MEDS: IPRATROPIUM BROMIDE 0.5 MG/2.5 ML NEBU NEB SCH ×6 (03:52→23:04)
[2023-06-03] MEDS: ALBUTEROL SULFATE 2.5 MG/3 ML NEBU NEB SCH ×6 (03:52→23:04)
[2023-06-03] MEDS: MAGNESIUM OXIDE 400 MG TABLET GT SCH (05:26)
[2023-06-03] MEDS: BACLOFEN 20 MG TABLET GT SCH ×3 (05:26→21:57)
[2023-06-03] MEDS: MIDODRINE HCL 10 MG TABLET GT SCH ×3 (05:27→21:58)
[2023-06-03] MEDS: OMEPRAZOLE 20 MG CAPSULE.DR GT SCH (05:27)
[2023-06-03] MEDS: METOCLOPRAMIDE HCL 5 MG TABLET GT SCH ×3 (05:27→21:58)
[2023-06-03] MEDS: CEFEPIME HCL 1 G in IV DEXTROSE 5% 50 ML IV SCH ×3 (05:51→22:34)
[2023-06-03] MEDS: VANCOMYCIN IV 1,000 MG in IV DEXTROSE 5% 250 ML IV SCH ×3 (05:51→22:00)
[2023-06-03 07:48] VITALS: TEMP 98.5
[2023-06-03] MEDS: HYDROGEN PEROXIDE 3% 118 ML BOTTLE TP SCH ×2 (09:00→19:19)
[2023-06-03] MEDS: PHENYTOIN 100 MG/4 ML UDC GT SCH ×2 (09:24→21:56)
[2023-06-03] MEDS: ACIDOPHILUS/BULGARICUS CHEW TAB GT SCH ×2 (09:26→21:56)
[2023-06-03] MEDS: FUROSEMIDE 10 MG/ML GT SCH (09:26)
[2023-06-03] MEDS: FERROUS SULFATE 330 MG/7.5 ML UDC- FOR SA ONLY GT SCH ×2 (09:26→21:56)
[2023-06-03] MEDS: levETIRAcetam 500 MG/5 ML LIQUID UDC GT SCH ×2 (09:28→21:56)
[2023-06-03] MEDS: POTASSIUM CHLORIDE 40 MEQ/30 ML LIQUID UDC GT SCH (09:30)
[2023-06-03] MEDS: REMEDY ESSENTIAL ZINC PASTE 113 GM TP SCH ×2 (09:30→21:57)
[2023-06-03] MEDS: VITAL AF 1.2 1,000 ML LIQUID GT PRN (13:05)
[2023-06-03 20:00] VITALS: TEMP 97.7
[2023-06-03] MEDS: MIRALAX 17 GM POWD.PACK GT SCH (21:56)
[2023-06-03] MEDS: FOLIC ACID 1 MG TABLET GT SCH (21:56)
[2023-06-03] MEDS: CHOLECALCIFEROL 1,000 UNIT TABLET GT SCH (21:57)
[2023-06-03] MEDS: THIAMINE HCL 100 MG TABLET GT SCH (21:57)
[2023-06-04] MEDS: IPRATROPIUM BROMIDE 0.5 MG/2.5 ML NEBU NEB SCH ×6 (04:01→23:00)
[2023-06-04] MEDS: ALBUTEROL SULFATE 2.5 MG/3 ML NEBU NEB SCH ×6 (04:01→23:00)
[2023-06-04] MEDS: MAGNESIUM OXIDE 400 MG TABLET GT SCH (05:53)
[2023-06-04] MEDS: BACLOFEN 20 MG TABLET GT SCH ×3 (05:53→21:58)
[2023-06-04] MEDS: MIDODRINE HCL 10 MG TABLET GT SCH ×3 (05:53→22:03)
[2023-06-04] MEDS: METOCLOPRAMIDE HCL 5 MG TABLET GT SCH ×3 (05:54→22:01)
[2023-06-04] MEDS: OMEPRAZOLE 20 MG CAPSULE.DR GT SCH (05:54)
[2023-06-04] MEDS: CEFEPIME HCL 1 G in IV DEXTROSE 5% 50 ML IV SCH ×3 (05:59→22:41)
[2023-06-04] MEDS: HYDROGEN PEROXIDE 3% 118 ML BOTTLE TP SCH ×2 (07:36→19:11)
[2023-06-04 07:48] VITALS: TEMP 97.4
[2023-06-04] MEDS: POTASSIUM CHLORIDE 40 MEQ/30 ML LIQUID UDC GT SCH (09:00)
[2023-06-04] MEDS: REMEDY ESSENTIAL ZINC PASTE 113 GM TP SCH ×2 (09:00→21:58)
[2023-06-04] MEDS: FUROSEMIDE 10 MG/ML GT SCH (09:41)
[2023-06-04] MEDS: ACIDOPHILUS/BULGARICUS CHEW TAB GT SCH ×2 (09:41→21:57)
[2023-06-04] MEDS: FERROUS SULFATE 330 MG/7.5 ML UDC- FOR SA ONLY GT SCH ×2 (09:41→21:57)
[2023-06-04] MEDS: PHENYTOIN 100 MG/4 ML UDC GT SCH ×2 (09:41→21:57)
[2023-06-04] MEDS: levETIRAcetam 500 MG/5 ML LIQUID UDC GT SCH ×2 (09:42→21:58)
[2023-06-04] MEDS ORDERED: VANCOMYCIN IV 750 MG in IV DEXTROSE 5% 250 ML IV SCH (18:00)
[2023-06-04 20:00] VITALS: TEMP 97.7
[2023-06-04] MEDS: FOLIC ACID 1 MG TABLET GT SCH (21:57)
[2023-06-04] MEDS: CHOLECALCIFEROL 1,000 UNIT TABLET GT SCH (21:58)
[2023-06-04] MEDS: THIAMINE HCL 100 MG TABLET GT SCH (21:58)
[2023-06-04] MEDS: VITAL AF 1.2 1,000 ML LIQUID GT PRN (22:31)
[2023-06-05] MEDS: ALBUTEROL SULFATE 2.5 MG/3 ML NEBU NEB SCH ×7 (03:21→23:59)
[2023-06-05] MEDS: IPRATROPIUM BROMIDE 0.5 MG/2.5 ML NEBU NEB SCH ×7 (03:21→23:59)
[2023-06-05] MEDS: CEFEPIME HCL 1 G in IV DEXTROSE 5% 50 ML IV SCH (05:40)
[2023-06-05] MEDS: MAGNESIUM OXIDE 400 MG TABLET GT SCH (05:49)
[2023-06-05] MEDS: BACLOFEN 20 MG TABLET GT SCH ×3 (05:49→22:12)
[2023-06-05] MEDS: MIDODRINE HCL 10 MG TABLET GT SCH ×3 (05:50→22:00)
[2023-06-05] MEDS: OMEPRAZOLE 20 MG CAPSULE.DR GT SCH (05:50)
[2023-06-05] MEDS: METOCLOPRAMIDE HCL 5 MG TABLET GT SCH ×3 (05:50→22:12)
[2023-06-05 08:00] VITALS: TEMP 96.8
[2023-06-05] MEDS: levETIRAcetam 500 MG/5 ML LIQUID UDC GT SCH ×2 (08:31→21:00)
[2023-06-05] MEDS: FUROSEMIDE 10 MG/ML GT SCH (08:31)
[2023-06-05] MEDS: ACIDOPHILUS/BULGARICUS CHEW TAB GT SCH ×2 (08:31→21:00)
[2023-06-05] MEDS: FERROUS SULFATE 330 MG/7.5 ML UDC- FOR SA ONLY GT SCH ×2 (08:31→21:00)
[2023-06-05] MEDS: REMEDY ESSENTIAL ZINC PASTE 113 GM TP SCH ×2 (08:31→21:00)
[2023-06-05] MEDS: POTASSIUM CHLORIDE 40 MEQ/30 ML LIQUID UDC GT SCH (08:31)
[2023-06-05] MEDS: PHENYTOIN 100 MG/4 ML UDC GT SCH ×2 (08:31→21:00)
[2023-06-05] MEDS: HYDROGEN PEROXIDE 3% 118 ML BOTTLE TP SCH ×2 (08:40→19:29)
[2023-06-05 20:00] VITALS: TEMP 97.5
[2023-06-05] MEDS: FOLIC ACID 1 MG TABLET GT SCH (21:00)
[2023-06-05] MEDS: THIAMINE HCL 100 MG TABLET GT SCH (21:00)
[2023-06-05] MEDS: MIRALAX 17 GM POWD.PACK GT SCH (21:00)
[2023-06-05] MEDS: CHOLECALCIFEROL 1,000 UNIT TABLET GT SCH (21:00)
[2023-06-05] MEDS ORDERED: MEROPENEM 0.5 G in IV NORMAL SALINE 50 ML IV SCH ×4 (22:00)
[2023-06-05] MEDS: GENTAMICIN SULFATE INJ 80 MG in IV DEXTROSE 5% 100 ML IV SCH (22:36)
[2023-06-06] MEDS: ALBUTEROL SULFATE 2.5 MG/3 ML NEBU NEB SCH ×5 (03:13→19:11)
[2023-06-06] MEDS: IPRATROPIUM BROMIDE 0.5 MG/2.5 ML NEBU NEB SCH ×5 (03:13→19:11)
[2023-06-06] MEDS: METOCLOPRAMIDE HCL 5 MG TABLET GT SCH ×3 (05:40→21:48)
[2023-06-06] MEDS: OMEPRAZOLE 20 MG CAPSULE.DR GT SCH (05:40)
[2023-06-06] MEDS: BACLOFEN 20 MG TABLET GT SCH ×3 (05:41→21:45)
[2023-06-06] MEDS: GENTAMICIN SULFATE INJ 80 MG in IV DEXTROSE 5% 100 ML IV SCH ×3 (05:41→22:00)
[2023-06-06] MEDS: MIDODRINE HCL 10 MG TABLET GT SCH ×3 (05:41→21:45)
[2023-06-06] MEDS: MAGNESIUM OXIDE 400 MG TABLET GT SCH (05:41)
[2023-06-06] MEDS: HYDROGEN PEROXIDE 3% 118 ML BOTTLE TP SCH ×2 (07:29→19:11)
[2023-06-06 08:00] VITALS: TEMP 97.3
[2023-06-06] MEDS: PHENYTOIN 100 MG/4 ML UDC GT SCH ×2 (08:47→21:48)
[2023-06-06] MEDS: FERROUS SULFATE 330 MG/7.5 ML UDC- FOR SA ONLY GT SCH ×2 (08:48→21:44)
[2023-06-06] MEDS: FUROSEMIDE 10 MG/ML GT SCH (08:49)
[2023-06-06] MEDS: ACIDOPHILUS/BULGARICUS CHEW TAB GT SCH ×2 (08:49→21:44)
[2023-06-06] MEDS: POTASSIUM CHLORIDE 40 MEQ/30 ML LIQUID UDC GT SCH (08:50)
[2023-06-06] MEDS: levETIRAcetam 500 MG/5 ML LIQUID UDC GT SCH ×2 (08:50→21:48)
[2023-06-06] MEDS: REMEDY ESSENTIAL ZINC PASTE 113 GM TP SCH ×2 (08:51→21:46)
[2023-06-06 10:45] VITALS: O2SAT 98
[2023-06-06 20:00] VITALS: TEMP 97
[2023-06-06 21:39] LABS: CREATININE 0.5 mg/dL (0.6-1.3); UREA NITROGEN, BLOOD 16 mg/dL (7-18)
[2023-06-06] MEDS: FOLIC ACID 1 MG TABLET GT SCH (21:44)
[2023-06-06] MEDS: THIAMINE HCL 100 MG TABLET GT SCH (21:46)
[2023-06-06] MEDS: CHOLECALCIFEROL 1,000 UNIT TABLET GT SCH (21:46)
[2023-06-07] MEDS: ALBUTEROL SULFATE 2.5 MG/3 ML NEBU NEB SCH ×6 (03:44→23:07)
[2023-06-07] MEDS: IPRATROPIUM BROMIDE 0.5 MG/2.5 ML NEBU NEB SCH ×6 (03:44→23:07)
[2023-06-07] MEDS: BACLOFEN 20 MG TABLET GT SCH ×3 (05:22→22:03)
[2023-06-07] MEDS: MAGNESIUM OXIDE 400 MG TABLET GT SCH (05:22)
[2023-06-07] MEDS: MIDODRINE HCL 10 MG TABLET GT SCH ×3 (05:24→22:04)
[2023-06-07] MEDS: OMEPRAZOLE 20 MG CAPSULE.DR GT SCH (05:25)
[2023-06-07] MEDS: METOCLOPRAMIDE HCL 5 MG TABLET GT SCH ×3 (05:25→22:05)
[2023-06-07] MEDS: HYDROGEN PEROXIDE 3% 118 ML BOTTLE TP SCH ×2 (09:00→19:29)
[2023-06-07] MEDS: ACIDOPHILUS/BULGARICUS CHEW TAB GT SCH ×2 (09:24→21:59)
[2023-06-07] MEDS: FUROSEMIDE 10 MG/ML GT SCH (09:24)
[2023-06-07] MEDS: POTASSIUM CHLORIDE 40 MEQ/30 ML LIQUID UDC GT SCH (09:24)
[2023-06-07] MEDS: levETIRAcetam 500 MG/5 ML LIQUID UDC GT SCH ×2 (09:24→21:00)
[2023-06-07] MEDS: PHENYTOIN 100 MG/4 ML UDC GT SCH ×2 (09:24→21:00)
[2023-06-07] MEDS: FERROUS SULFATE 330 MG/7.5 ML UDC- FOR SA ONLY GT SCH ×2 (09:24→21:59)
[2023-06-07] MEDS: REMEDY ESSENTIAL ZINC PASTE 113 GM TP SCH ×2 (09:24→21:00)
[2023-06-07 11:17] VITALS: TEMP 97
[2023-06-07] MEDS: MEROPENEM 1 G in IV NORMAL SALINE 100 ML IV SCH ×2 (13:59→22:43)
[2023-06-07] MEDS ORDERED: MEROPENEM 1 G in IV NORMAL SALINE 100 ML IV SCH (14:00)
[2023-06-07] MEDS: VITAL AF 1.2 1,000 ML LIQUID GT PRN (15:09)
[2023-06-07 20:00] VITALS: TEMP 97
[2023-06-07] MEDS: THIAMINE HCL 100 MG TABLET GT SCH (21:00)
[2023-06-07] MEDS: FOLIC ACID 1 MG TABLET GT SCH (21:00)
[2023-06-07] MEDS: CHOLECALCIFEROL 1,000 UNIT TABLET GT SCH (21:00)
[2023-06-08] MEDS: IPRATROPIUM BROMIDE 0.5 MG/2.5 ML NEBU NEB SCH ×6 (03:22→23:21)
[2023-06-08] MEDS: ALBUTEROL SULFATE 2.5 MG/3 ML NEBU NEB SCH ×6 (03:22→23:21)
[2023-06-08] MEDS: MEROPENEM 1 G in IV NORMAL SALINE 100 ML IV SCH ×3 (05:23→22:20)
[2023-06-08] MEDS: BACLOFEN 20 MG TABLET GT SCH ×3 (05:28→21:14)
[2023-06-08] MEDS: OMEPRAZOLE 20 MG CAPSULE.DR GT SCH (05:28)
[2023-06-08] MEDS: MIDODRINE HCL 10 MG TABLET GT SCH ×3 (05:28→21:15)
[2023-06-08] MEDS: METOCLOPRAMIDE HCL 5 MG TABLET GT SCH ×3 (05:28→21:15)
[2023-06-08] MEDS: MAGNESIUM OXIDE 400 MG TABLET GT SCH (05:28)
[2023-06-08 07:35] VITALS: TEMP 96.2
[2023-06-08] MEDS: PHENYTOIN 100 MG/4 ML UDC GT SCH ×2 (09:27→21:14)
[2023-06-08] MEDS: FUROSEMIDE 10 MG/ML GT SCH (09:28)
[2023-06-08] MEDS: FERROUS SULFATE 330 MG/7.5 ML UDC- FOR SA ONLY GT SCH ×2 (09:28→21:14)
[2023-06-08] MEDS: ACIDOPHILUS/BULGARICUS CHEW TAB GT SCH ×2 (09:28→21:14)
[2023-06-08] MEDS: levETIRAcetam 500 MG/5 ML LIQUID UDC GT SCH ×2 (09:29→21:14)
[2023-06-08] MEDS: POTASSIUM CHLORIDE 40 MEQ/30 ML LIQUID UDC GT SCH (09:30)
[2023-06-08] MEDS: REMEDY ESSENTIAL ZINC PASTE 113 GM TP SCH ×2 (09:31→21:14)
[2023-06-08] MEDS: HYDROGEN PEROXIDE 3% 118 ML BOTTLE TP SCH ×2 (09:36→19:08)
[2023-06-08] MEDS: MIRALAX 17 GM POWD.PACK GT SCH (21:00)
[2023-06-08 21:06] VITALS: TEMP 108; TEMP 97.4
[2023-06-08] MEDS: THIAMINE HCL 100 MG TABLET GT SCH (21:14)
[2023-06-08] MEDS: CHOLECALCIFEROL 1,000 UNIT TABLET GT SCH (21:14)
[2023-06-08] MEDS: FOLIC ACID 1 MG TABLET GT SCH (21:14)
[2023-06-09] MEDS: IPRATROPIUM BROMIDE 0.5 MG/2.5 ML NEBU NEB SCH ×6 (03:29→22:58)
[2023-06-09] MEDS: ALBUTEROL SULFATE 2.5 MG/3 ML NEBU NEB SCH ×6 (03:29→22:58)
[2023-06-09] MEDS: VITAL AF 1.2 1,000 ML LIQUID GT PRN (03:51)
[2023-06-09] MEDS: METOCLOPRAMIDE HCL 5 MG TABLET GT SCH ×3 (05:47→21:57)
[2023-06-09] MEDS: MAGNESIUM OXIDE 400 MG TABLET GT SCH (05:47)
[2023-06-09] MEDS: OMEPRAZOLE 20 MG CAPSULE.DR GT SCH (05:47)
[2023-06-09] MEDS: BACLOFEN 20 MG TABLET GT SCH ×3 (05:47→21:57)
[2023-06-09] MEDS: MIDODRINE HCL 10 MG TABLET GT SCH ×3 (05:47→21:57)
[2023-06-09] MEDS: HYDROGEN PEROXIDE 3% 118 ML BOTTLE TP SCH ×2 (08:27→19:07)
[2023-06-09] MEDS: REMEDY ESSENTIAL ZINC PASTE 113 GM TP SCH ×2 (09:00→21:57)
[2023-06-09] MEDS: FUROSEMIDE 10 MG/ML GT SCH (09:00)
[2023-06-09] MEDS: POTASSIUM CHLORIDE 40 MEQ/30 ML LIQUID UDC GT SCH (09:00)
[2023-06-09] MEDS: FERROUS SULFATE 330 MG/7.5 ML UDC- FOR SA ONLY GT SCH ×2 (09:00→21:56)
[2023-06-09] MEDS: PHENYTOIN 100 MG/4 ML UDC GT SCH ×2 (09:00→21:56)
[2023-06-09] MEDS: levETIRAcetam 500 MG/5 ML LIQUID UDC GT SCH ×2 (09:00→21:57)
[2023-06-09] MEDS: ACIDOPHILUS/BULGARICUS CHEW TAB GT SCH ×2 (09:00→21:56)
[2023-06-09 10:59] VITALS: TEMP 97
[2023-06-09] MEDS: MEROPENEM 1 G in IV NORMAL SALINE 100 ML IV SCH ×2 (14:21→22:00)
[2023-06-09 16:07] VITALS: TEMP 97.3
[2023-06-09 20:00] VITALS: TEMP 97
[2023-06-09] MEDS: FOLIC ACID 1 MG TABLET GT SCH (21:56)
[2023-06-09] MEDS: THIAMINE HCL 100 MG TABLET GT SCH (21:57)
[2023-06-09] MEDS: CHOLECALCIFEROL 1,000 UNIT TABLET GT SCH (21:57)
[2023-06-10] MEDS: ALBUTEROL SULFATE 2.5 MG/3 ML NEBU NEB SCH ×6 (03:05→23:34)
[2023-06-10] MEDS: IPRATROPIUM BROMIDE 0.5 MG/2.5 ML NEBU NEB SCH ×6 (03:05→23:34)
[2023-06-10] MEDS: BACLOFEN 20 MG TABLET GT SCH ×3 (05:18→21:54)
[2023-06-10] MEDS: MAGNESIUM OXIDE 400 MG TABLET GT SCH (05:18)
[2023-06-10] MEDS: METOCLOPRAMIDE HCL 5 MG TABLET GT SCH ×3 (05:19→21:55)
[2023-06-10] MEDS: MIDODRINE HCL 10 MG TABLET GT SCH ×3 (05:19→21:55)
[2023-06-10] MEDS: OMEPRAZOLE 20 MG CAPSULE.DR GT SCH (05:19)
[2023-06-10] MEDS: MEROPENEM 1 G in IV NORMAL SALINE 100 ML IV SCH ×3 (05:45→22:01)
[2023-06-10] MEDS: HYDROGEN PEROXIDE 3% 118 ML BOTTLE TP SCH ×2 (07:24→21:09)
[2023-06-10 08:00] VITALS: TEMP 98.8
[2023-06-10] MEDS: FUROSEMIDE 10 MG/ML GT SCH (09:00)
[2023-06-10] MEDS: ACIDOPHILUS/BULGARICUS CHEW TAB GT SCH ×2 (09:00→21:54)
[2023-06-10] MEDS: FERROUS SULFATE 330 MG/7.5 ML UDC- FOR SA ONLY GT SCH ×2 (09:00→21:54)
[2023-06-10] MEDS: REMEDY ESSENTIAL ZINC PASTE 113 GM TP SCH ×2 (09:00→21:54)
[2023-06-10] MEDS: PHENYTOIN 100 MG/4 ML UDC GT SCH ×2 (09:00→21:54)
[2023-06-10] MEDS: levETIRAcetam 500 MG/5 ML LIQUID UDC GT SCH ×2 (09:00→21:54)
[2023-06-10] MEDS: POTASSIUM CHLORIDE 40 MEQ/30 ML LIQUID UDC GT SCH (09:00)
[2023-06-10] MEDS: VITAL AF 1.2 1,000 ML LIQUID GT PRN (18:41)
[2023-06-10 20:00] VITALS: TEMP 96.4
[2023-06-10] MEDS: THIAMINE HCL 100 MG TABLET GT SCH (21:54)
[2023-06-10] MEDS: MIRALAX 17 GM POWD.PACK GT SCH (21:54)
[2023-06-10] MEDS: CHOLECALCIFEROL 1,000 UNIT TABLET GT SCH (21:54)
[2023-06-10] MEDS: FOLIC ACID 1 MG TABLET GT SCH (21:54)
[2023-06-11] MEDS: IPRATROPIUM BROMIDE 0.5 MG/2.5 ML NEBU NEB SCH ×6 (03:14→23:51)
[2023-06-11] MEDS: ALBUTEROL SULFATE 2.5 MG/3 ML NEBU NEB SCH ×6 (03:14→23:51)
[2023-06-11] MEDS: MAGNESIUM OXIDE 400 MG TABLET GT SCH (05:40)
[2023-06-11] MEDS: BACLOFEN 20 MG TABLET GT SCH ×3 (05:40→21:59)
[2023-06-11] MEDS: MIDODRINE HCL 10 MG TABLET GT SCH ×3 (05:46→21:59)
[2023-06-11] MEDS: OMEPRAZOLE 20 MG CAPSULE.DR GT SCH (05:52)
[2023-06-11] MEDS: METOCLOPRAMIDE HCL 5 MG TABLET GT SCH ×3 (05:52→21:59)
[2023-06-11] MEDS: MEROPENEM 1 G in IV NORMAL SALINE 100 ML IV SCH ×3 (06:00→22:27)
[2023-06-11 08:00] VITALS: TEMP 94
[2023-06-11] MEDS: HYDROGEN PEROXIDE 3% 118 ML BOTTLE TP SCH ×2 (08:08→21:04)
[2023-06-11] MEDS: FERROUS SULFATE 330 MG/7.5 ML UDC- FOR SA ONLY GT SCH ×2 (09:00→21:58)
[2023-06-11] MEDS: PHENYTOIN 100 MG/4 ML UDC GT SCH ×2 (09:00→21:58)
[2023-06-11] MEDS: ACIDOPHILUS/BULGARICUS CHEW TAB GT SCH ×2 (09:00→21:58)
[2023-06-11] MEDS: POTASSIUM CHLORIDE 40 MEQ/30 ML LIQUID UDC GT SCH (09:00)
[2023-06-11] MEDS: REMEDY ESSENTIAL ZINC PASTE 113 GM TP SCH ×2 (09:00→21:59)
[2023-06-11] MEDS: levETIRAcetam 500 MG/5 ML LIQUID UDC GT SCH ×2 (09:00→21:59)
[2023-06-11] MEDS: FUROSEMIDE 10 MG/ML GT SCH (09:00)
[2023-06-11 20:00] VITALS: TEMP 94.4
[2023-06-11] MEDS: FOLIC ACID 1 MG TABLET GT SCH (21:58)
[2023-06-11] MEDS: CHOLECALCIFEROL 1,000 UNIT TABLET GT SCH (21:59)
[2023-06-11] MEDS: THIAMINE HCL 100 MG TABLET GT SCH (21:59)
[2023-06-12] MEDS: ALBUTEROL SULFATE 2.5 MG/3 ML NEBU NEB SCH ×6 (03:30→23:02)
[2023-06-12] MEDS: IPRATROPIUM BROMIDE 0.5 MG/2.5 ML NEBU NEB SCH ×6 (03:30→23:02)
[2023-06-12] MEDS: BACLOFEN 20 MG TABLET GT SCH ×3 (05:50→22:23)
[2023-06-12] MEDS: MAGNESIUM OXIDE 400 MG TABLET GT SCH (05:50)
[2023-06-12] MEDS: METOCLOPRAMIDE HCL 5 MG TABLET GT SCH ×3 (05:51→22:24)
[2023-06-12] MEDS: OMEPRAZOLE 20 MG CAPSULE.DR GT SCH (05:51)
[2023-06-12] MEDS: MIDODRINE HCL 10 MG TABLET GT SCH ×3 (05:51→22:00)
[2023-06-12] MEDS: VITAL AF 1.2 1,000 ML LIQUID GT PRN (05:52)
[2023-06-12] MEDS: HYDROGEN PEROXIDE 3% 118 ML BOTTLE TP SCH ×2 (07:41→19:11)
[2023-06-12 07:56] VITALS: TEMP 97.7
[2023-06-12 08:08] LABS: BASOPHILS # (AUTO) 0.1 K/UL (0.0-0.2); BASOPHILS % (AUTO) 1.8 % (0.0-2.0); DIFFERENTIAL COMMENT 0; EOSINOPHILS # (AUTO) 0.1 K/uL (0.0-0.7); EOSINOPHILS % (AUTO) 2.2 % (0.0-7.0); HEMOGLOBIN 9.8 g/dL (10.9-14.3); LYMPHOCYTES # (AUTO) 2.2 K/uL (0.8-4.8); LYMPHOCYTES % (AUTO) 37.1 % (20.5-51.5); MEAN CORPUSCULAR HEMOGLOBIN 27.8 uug (24.7-32.8); MEAN CORPUSCULAR HGB CONC 33 g/dL (32.3-35.6); MEAN CORPUSCULAR VOLUME 85.4 fL (75.5-95.3); MONOCYTES # (AUTO) 0.4 K/uL (0.1-1.30); MONOCYTES % (AUTO) 6.8 % (0.0-11.0); NEUTROPHILS # (AUTO) 3.1 K/uL (1.8-8.9); NEUTROPHILS % (AUTO) 52.1 % (38.5-71.5); PLATELET COUNT (AUTO) 348 K/uL (179-408); RED BLOOD CELL COUNT(AUTO) 3.52 MIL/uL (3.63-4.92); RED CELL DISTRIBUTION WIDTH 21.5 % (12.3-17.7); WHITE BLOOD COUNT (AUTO) 5.9 K/uL (3.8-11.8)
[2023-06-12 08:28] LABS: ALBUMIN 2.4 g/dL (3.4-5.0); BILIRUBIN,TOTAL 0.2 mg/dL (0.2-1.0); CALCIUM 9.1 mg/dL (8.5-10.1); CREATININE 0.6 mg/dL (0.6-1.3)
[2023-06-12] MEDS: REMEDY ESSENTIAL ZINC PASTE 113 GM TP SCH ×2 (09:00→21:00)
[2023-06-12] MEDS: ACIDOPHILUS/BULGARICUS CHEW TAB GT SCH ×2 (09:00→21:00)
[2023-06-12] MEDS: FUROSEMIDE 10 MG/ML GT SCH (09:00)
[2023-06-12] MEDS: levETIRAcetam 500 MG/5 ML LIQUID UDC GT SCH ×2 (09:00→21:00)
[2023-06-12] MEDS: PHENYTOIN 100 MG/4 ML UDC GT SCH ×2 (09:00→21:00)
[2023-06-12] MEDS: FERROUS SULFATE 330 MG/7.5 ML UDC- FOR SA ONLY GT SCH ×2 (09:00→21:00)
[2023-06-12] MEDS: POTASSIUM CHLORIDE 40 MEQ/30 ML LIQUID UDC GT SCH (09:00)
[2023-06-12 17:23] VITALS: TEMP 98
[2023-06-12 20:00] VITALS: TEMP 96.8
[2023-06-12] MEDS: THIAMINE HCL 100 MG TABLET GT SCH (21:00)
[2023-06-12] MEDS: FOLIC ACID 1 MG TABLET GT SCH (21:00)
[2023-06-12] MEDS: MIRALAX 17 GM POWD.PACK GT SCH (21:00)
[2023-06-12] MEDS: CHOLECALCIFEROL 1,000 UNIT TABLET GT SCH (21:00)
[2023-06-13] MEDS: IPRATROPIUM BROMIDE 0.5 MG/2.5 ML NEBU NEB SCH ×6 (03:14→22:58)
[2023-06-13] MEDS: ALBUTEROL SULFATE 2.5 MG/3 ML NEBU NEB SCH ×6 (03:14→22:58)
[2023-06-13] MEDS: BACLOFEN 20 MG TABLET GT SCH ×3 (05:17→22:00)
[2023-06-13] MEDS: MAGNESIUM OXIDE 400 MG TABLET GT SCH (05:17)
[2023-06-13] MEDS: MIDODRINE HCL 10 MG TABLET GT SCH ×3 (05:17→22:01)
[2023-06-13] MEDS: OMEPRAZOLE 20 MG CAPSULE.DR GT SCH (05:18)
[2023-06-13] MEDS: METOCLOPRAMIDE HCL 5 MG TABLET GT SCH ×3 (05:18→22:01)
[2023-06-13 07:50] VITALS: TEMP 97.7
[2023-06-13] MEDS: HYDROGEN PEROXIDE 3% 118 ML BOTTLE TP SCH ×2 (08:29→19:14)
[2023-06-13] MEDS: FUROSEMIDE 10 MG/ML GT SCH (09:56)
[2023-06-13] MEDS: PHENYTOIN 100 MG/4 ML UDC GT SCH ×2 (09:56→20:15)
[2023-06-13] MEDS: POTASSIUM CHLORIDE 40 MEQ/30 ML LIQUID UDC GT SCH (09:56)
[2023-06-13] MEDS: levETIRAcetam 500 MG/5 ML LIQUID UDC GT SCH ×2 (09:56→20:18)
[2023-06-13] MEDS: REMEDY ESSENTIAL ZINC PASTE 113 GM TP SCH ×2 (09:56→20:19)
[2023-06-13] MEDS: ACIDOPHILUS/BULGARICUS CHEW TAB GT SCH ×2 (09:56→20:16)
[2023-06-13] MEDS: FERROUS SULFATE 330 MG/7.5 ML UDC- FOR SA ONLY GT SCH ×2 (09:56→20:15)
[2023-06-13 20:00] VITALS: TEMP 97.5
[2023-06-13] MEDS: FOLIC ACID 1 MG TABLET GT SCH (20:16)
[2023-06-13] MEDS: THIAMINE HCL 100 MG TABLET GT SCH (20:18)
[2023-06-13] MEDS: CHOLECALCIFEROL 1,000 UNIT TABLET GT SCH (20:19)
[2023-06-13] MEDS: VITAL AF 1.2 1,000 ML LIQUID GT PRN (22:43)
[2023-06-14] MEDS: IPRATROPIUM BROMIDE 0.5 MG/2.5 ML NEBU NEB SCH ×7 (03:31→23:40)
[2023-06-14] MEDS: ALBUTEROL SULFATE 2.5 MG/3 ML NEBU NEB SCH ×6 (03:31→23:00)
[2023-06-14] MEDS: MIDODRINE HCL 10 MG TABLET GT SCH ×3 (06:00→20:59)
[2023-06-14] MEDS: MAGNESIUM OXIDE 400 MG TABLET GT SCH (06:00)
[2023-06-14] MEDS: BACLOFEN 20 MG TABLET GT SCH ×3 (06:00→21:00)
[2023-06-14] MEDS: METOCLOPRAMIDE HCL 5 MG TABLET GT SCH ×3 (06:24→21:00)
[2023-06-14] MEDS: OMEPRAZOLE 20 MG CAPSULE.DR GT SCH (06:24)
[2023-06-14 08:12] VITALS: TEMP 97.6
[2023-06-14] MEDS: HYDROGEN PEROXIDE 3% 118 ML BOTTLE TP SCH ×2 (08:32→19:08)
[2023-06-14] MEDS: FERROUS SULFATE 330 MG/7.5 ML UDC- FOR SA ONLY GT SCH ×2 (09:32→21:01)
[2023-06-14] MEDS: PHENYTOIN 100 MG/4 ML UDC GT SCH ×2 (09:32→21:12)
[2023-06-14] MEDS: ACIDOPHILUS/BULGARICUS CHEW TAB GT SCH ×2 (09:33→21:00)
[2023-06-14] MEDS: FUROSEMIDE 10 MG/ML GT SCH (09:33)
[2023-06-14] MEDS: POTASSIUM CHLORIDE 40 MEQ/30 ML LIQUID UDC GT SCH (09:34)
[2023-06-14] MEDS: levETIRAcetam 500 MG/5 ML LIQUID UDC GT SCH ×2 (09:34→21:12)
[2023-06-14] MEDS: REMEDY ESSENTIAL ZINC PASTE 113 GM TP SCH ×2 (09:35→20:59)
[2023-06-14] MEDS: FOLIC ACID 1 MG TABLET GT SCH (21:00)
[2023-06-14] MEDS: THIAMINE HCL 100 MG TABLET GT SCH (21:01)
[2023-06-14] MEDS: CHOLECALCIFEROL 1,000 UNIT TABLET GT SCH (21:02)
[2023-06-14 22:32] VITALS: TEMP 97.7
[2023-06-15] MEDS: IPRATROPIUM BROMIDE 0.5 MG/2.5 ML NEBU NEB SCH ×5 (03:45→19:12)
[2023-06-15] MEDS: ALBUTEROL SULFATE 2.5 MG/3 ML NEBU NEB SCH ×6 (03:45→23:40)
[2023-06-15] MEDS: OMEPRAZOLE 20 MG CAPSULE.DR GT SCH (05:38)
[2023-06-15] MEDS: MIDODRINE HCL 10 MG TABLET GT SCH ×3 (05:38→21:12)
[2023-06-15] MEDS: MAGNESIUM OXIDE 400 MG TABLET GT SCH (05:38)
[2023-06-15] MEDS: METOCLOPRAMIDE HCL 5 MG TABLET GT SCH ×3 (05:38→21:13)
[2023-06-15] MEDS: BACLOFEN 20 MG TABLET GT SCH ×3 (05:38→21:12)
[2023-06-15] MEDS: HYDROGEN PEROXIDE 3% 118 ML BOTTLE TP SCH ×2 (07:26→19:13)
[2023-06-15 08:00] VITALS: TEMP 97.6
[2023-06-15] MEDS: levETIRAcetam 500 MG/5 ML LIQUID UDC GT SCH ×2 (09:00→21:23)
[2023-06-15] MEDS: FUROSEMIDE 10 MG/ML GT SCH (09:00)
[2023-06-15] MEDS: FERROUS SULFATE 330 MG/7.5 ML UDC- FOR SA ONLY GT SCH ×2 (09:00→21:10)
[2023-06-15] MEDS: PHENYTOIN 100 MG/4 ML UDC GT SCH ×2 (09:00→21:23)
[2023-06-15] MEDS: ACIDOPHILUS/BULGARICUS CHEW TAB GT SCH ×2 (09:00→21:10)
[2023-06-15] MEDS: POTASSIUM CHLORIDE 40 MEQ/30 ML LIQUID UDC GT SCH (09:00)
[2023-06-15] MEDS: REMEDY ESSENTIAL ZINC PASTE 113 GM TP SCH ×2 (09:00→21:11)
[2023-06-15] MEDS: VITAL AF 1.2 1,000 ML LIQUID GT PRN (13:32)
[2023-06-15 20:00] VITALS: TEMP 98.1
[2023-06-15] MEDS: NYSTATIN POWDER 15 GM BOTTLE TP SCH (21:00)
[2023-06-15] MEDS: MIRALAX 17 GM POWD.PACK GT SCH (21:10)
[2023-06-15] MEDS: CHOLECALCIFEROL 1,000 UNIT TABLET GT SCH (21:11)
[2023-06-15] MEDS: THIAMINE HCL 100 MG TABLET GT SCH (21:11)
[2023-06-15] MEDS: FOLIC ACID 1 MG TABLET GT SCH (21:11)
[2023-06-16] MEDS: IPRATROPIUM BROMIDE 0.5 MG/2.5 ML NEBU NEB SCH ×6 (03:32→23:20)
[2023-06-16] MEDS: ALBUTEROL SULFATE 2.5 MG/3 ML NEBU NEB SCH ×6 (03:32→23:20)
[2023-06-16] MEDS: BACLOFEN 20 MG TABLET GT SCH ×3 (05:38→21:57)
[2023-06-16] MEDS: MIDODRINE HCL 10 MG TABLET GT SCH ×3 (05:40→21:57)
[2023-06-16] MEDS: METOCLOPRAMIDE HCL 5 MG TABLET GT SCH ×3 (05:40→21:57)
[2023-06-16] MEDS: MAGNESIUM OXIDE 400 MG TABLET GT SCH (05:40)
[2023-06-16] MEDS: OMEPRAZOLE 20 MG CAPSULE.DR GT SCH (05:40)
[2023-06-16 05:42] VITALS: TEMP 97.5
[2023-06-16] MEDS: HYDROGEN PEROXIDE 3% 118 ML BOTTLE TP SCH ×2 (07:30→19:08)
[2023-06-16] MEDS: PHENYTOIN 100 MG/4 ML UDC GT SCH ×2 (08:27→21:56)
[2023-06-16] MEDS: FERROUS SULFATE 330 MG/7.5 ML UDC- FOR SA ONLY GT SCH ×2 (08:28→21:56)
[2023-06-16] MEDS: levETIRAcetam 500 MG/5 ML LIQUID UDC GT SCH ×2 (08:29→21:56)
[2023-06-16] MEDS: ACIDOPHILUS/BULGARICUS CHEW TAB GT SCH ×2 (08:29→21:56)
[2023-06-16] MEDS: POTASSIUM CHLORIDE 40 MEQ/30 ML LIQUID UDC GT SCH (08:29)
[2023-06-16] MEDS: FUROSEMIDE 10 MG/ML GT SCH (08:29)
[2023-06-16] MEDS: NYSTATIN POWDER 15 GM BOTTLE TP SCH ×2 (08:30→21:57)
[2023-06-16] MEDS: REMEDY ESSENTIAL ZINC PASTE 113 GM TP SCH ×2 (08:30→21:57)
[2023-06-16 20:02] VITALS: TEMP 95.5
[2023-06-16] MEDS: FOLIC ACID 1 MG TABLET GT SCH (21:56)
[2023-06-16] MEDS: THIAMINE HCL 100 MG TABLET GT SCH (21:56)
[2023-06-16] MEDS: CHOLECALCIFEROL 1,000 UNIT TABLET GT SCH (21:56)
[2023-06-17] VITALS: TEMP 96.1
[2023-06-17 02:02] VITALS: TEMP 98
[2023-06-17] MEDS: ALBUTEROL SULFATE 2.5 MG/3 ML NEBU NEB SCH ×6 (03:30→23:03)
[2023-06-17] MEDS: IPRATROPIUM BROMIDE 0.5 MG/2.5 ML NEBU NEB SCH ×6 (03:30→23:03)
[2023-06-17] MEDS: VITAL AF 1.2 1,000 ML LIQUID GT PRN (05:01)
[2023-06-17] MEDS: OMEPRAZOLE 20 MG CAPSULE.DR GT SCH (05:24)
[2023-06-17] MEDS: MIDODRINE HCL 10 MG TABLET GT SCH ×3 (05:24→21:51)
[2023-06-17] MEDS: MAGNESIUM OXIDE 400 MG TABLET GT SCH (05:24)
[2023-06-17] MEDS: BACLOFEN 20 MG TABLET GT SCH ×3 (05:24→21:51)
[2023-06-17] MEDS: METOCLOPRAMIDE HCL 5 MG TABLET GT SCH ×3 (05:25→21:51)
[2023-06-17 07:05] VITALS: TEMP 98
[2023-06-17] MEDS: HYDROGEN PEROXIDE 3% 118 ML BOTTLE TP SCH ×2 (09:00→19:13)
[2023-06-17] MEDS: ACIDOPHILUS/BULGARICUS CHEW TAB GT SCH ×2 (09:39→21:44)
[2023-06-17] MEDS: PHENYTOIN 100 MG/4 ML UDC GT SCH ×2 (09:42→21:42)
[2023-06-17] MEDS: FUROSEMIDE 10 MG/ML GT SCH (09:42)
[2023-06-17] MEDS: FERROUS SULFATE 330 MG/7.5 ML UDC- FOR SA ONLY GT SCH ×2 (09:43→21:43)
[2023-06-17] MEDS: KETOCONAZOLE 2% SHAMPOO 120 ML BOTTLE TP SCH (09:44)
[2023-06-17] MEDS: POTASSIUM CHLORIDE 40 MEQ/30 ML LIQUID UDC GT SCH (09:44)
[2023-06-17] MEDS: NYSTATIN POWDER 15 GM BOTTLE TP SCH ×2 (09:45→21:48)
[2023-06-17] MEDS: REMEDY ESSENTIAL ZINC PASTE 113 GM TP SCH ×2 (09:45→21:51)
[2023-06-17] MEDS: levETIRAcetam 500 MG/5 ML LIQUID UDC GT SCH ×2 (09:47→21:45)
[2023-06-17 11:02] VITALS: TEMP 97.9
[2023-06-17 20:00] VITALS: TEMP 97.6
[2023-06-17] MEDS: FOLIC ACID 1 MG TABLET GT SCH (21:45)
[2023-06-17] MEDS: MIRALAX 17 GM POWD.PACK GT SCH (21:46)
[2023-06-17] MEDS: THIAMINE HCL 100 MG TABLET GT SCH (21:47)
[2023-06-17] MEDS: CHOLECALCIFEROL 1,000 UNIT TABLET GT SCH (21:47)
[2023-06-18] MEDS: ALBUTEROL SULFATE 2.5 MG/3 ML NEBU NEB SCH ×6 (03:10→23:52)
[2023-06-18] MEDS: IPRATROPIUM BROMIDE 0.5 MG/2.5 ML NEBU NEB SCH ×6 (03:10→23:52)
[2023-06-18] MEDS: BACLOFEN 20 MG TABLET GT SCH ×3 (05:59→21:16)
[2023-06-18] MEDS: MIDODRINE HCL 10 MG TABLET GT SCH ×3 (05:59→21:16)
[2023-06-18] MEDS: MAGNESIUM OXIDE 400 MG TABLET GT SCH (05:59)
[2023-06-18] MEDS: METOCLOPRAMIDE HCL 5 MG TABLET GT SCH ×3 (06:00→21:16)
[2023-06-18] MEDS: OMEPRAZOLE 20 MG CAPSULE.DR GT SCH (06:00)
[2023-06-18 08:00] VITALS: TEMP 97.4
[2023-06-18] MEDS: HYDROGEN PEROXIDE 3% 118 ML BOTTLE TP SCH ×2 (08:28→19:15)
[2023-06-18] MEDS: FUROSEMIDE 10 MG/ML GT SCH (09:56)
[2023-06-18] MEDS: POTASSIUM CHLORIDE 40 MEQ/30 ML LIQUID UDC GT SCH (09:56)
[2023-06-18] MEDS: FERROUS SULFATE 330 MG/7.5 ML UDC- FOR SA ONLY GT SCH ×2 (09:56→21:13)
[2023-06-18] MEDS: PHENYTOIN 100 MG/4 ML UDC GT SCH ×2 (09:56→21:12)
[2023-06-18] MEDS: ACIDOPHILUS/BULGARICUS CHEW TAB GT SCH ×2 (09:56→21:13)
[2023-06-18] MEDS: levETIRAcetam 500 MG/5 ML LIQUID UDC GT SCH ×2 (09:56→21:14)
[2023-06-18] MEDS: REMEDY ESSENTIAL ZINC PASTE 113 GM TP SCH ×2 (09:57→21:16)
[2023-06-18] MEDS: NYSTATIN POWDER 15 GM BOTTLE TP SCH ×2 (09:57→21:16)
[2023-06-18] MEDS: FOLIC ACID 1 MG TABLET GT SCH (21:13)
[2023-06-18] MEDS: THIAMINE HCL 100 MG TABLET GT SCH (21:15)
[2023-06-18] MEDS: CHOLECALCIFEROL 1,000 UNIT TABLET GT SCH (21:16)
[2023-06-19] MEDS: ALBUTEROL SULFATE 2.5 MG/3 ML NEBU NEB SCH ×5 (03:31→19:34)
[2023-06-19] MEDS: IPRATROPIUM BROMIDE 0.5 MG/2.5 ML NEBU NEB SCH ×5 (03:31→19:34)
[2023-06-19] MEDS: VITAL AF 1.2 1,000 ML LIQUID GT PRN (04:00)
[2023-06-19] MEDS: MAGNESIUM OXIDE 400 MG TABLET GT SCH (05:52)
[2023-06-19] MEDS: BACLOFEN 20 MG TABLET GT SCH ×3 (05:52→21:03)
[2023-06-19] MEDS: METOCLOPRAMIDE HCL 5 MG TABLET GT SCH ×3 (05:53→21:03)
[2023-06-19] MEDS: OMEPRAZOLE 20 MG CAPSULE.DR GT SCH (05:53)
[2023-06-19] MEDS: MIDODRINE HCL 10 MG TABLET GT SCH ×3 (05:53→21:02)
[2023-06-19 06:48] VITALS: TEMP 98.7
[2023-06-19] MEDS: HYDROGEN PEROXIDE 3% 118 ML BOTTLE TP SCH ×2 (07:30→19:34)
[2023-06-19] MEDS: FUROSEMIDE 10 MG/ML GT SCH (08:28)
[2023-06-19] MEDS: ACIDOPHILUS/BULGARICUS CHEW TAB GT SCH ×2 (08:29→20:31)
[2023-06-19] MEDS: POTASSIUM CHLORIDE 40 MEQ/30 ML LIQUID UDC GT SCH (08:31)
[2023-06-19] MEDS: FERROUS SULFATE 330 MG/7.5 ML UDC- FOR SA ONLY GT SCH ×2 (08:31→20:33)
[2023-06-19] MEDS: levETIRAcetam 500 MG/5 ML LIQUID UDC GT SCH ×2 (08:31→20:47)
[2023-06-19] MEDS: REMEDY ESSENTIAL ZINC PASTE 113 GM TP SCH ×2 (08:34→20:34)
[2023-06-19] MEDS: PHENYTOIN 100 MG/4 ML UDC GT SCH ×2 (09:16→20:47)
[2023-06-19] MEDS: NYSTATIN POWDER 15 GM BOTTLE TP SCH ×2 (09:16→20:34)
[2023-06-19 11:41] VITALS: TEMP 97.9
[2023-06-19] MEDS: FOLIC ACID 1 MG TABLET GT SCH (20:32)
[2023-06-19] MEDS: THIAMINE HCL 100 MG TABLET GT SCH (20:33)
[2023-06-19] MEDS: CHOLECALCIFEROL 1,000 UNIT TABLET GT SCH (20:33)
[2023-06-19] MEDS: MIRALAX 17 GM POWD.PACK GT SCH (20:47)
[2023-06-19 20:48] VITALS: TEMP 97.1
[2023-06-20] MEDS: ALBUTEROL SULFATE 2.5 MG/3 ML NEBU NEB SCH ×7 (00:10→23:04)
[2023-06-20] MEDS: IPRATROPIUM BROMIDE 0.5 MG/2.5 ML NEBU NEB SCH ×7 (00:10→23:04)
[2023-06-20] MEDS: BACLOFEN 20 MG TABLET GT SCH ×3 (05:37→21:59)
[2023-06-20] MEDS: OMEPRAZOLE 20 MG CAPSULE.DR GT SCH (05:37)
[2023-06-20] MEDS: MAGNESIUM OXIDE 400 MG TABLET GT SCH (05:37)
[2023-06-20] MEDS: METOCLOPRAMIDE HCL 5 MG TABLET GT SCH ×3 (05:37→22:00)
[2023-06-20] MEDS: MIDODRINE HCL 10 MG TABLET GT SCH ×3 (05:38→21:59)
[2023-06-20] MEDS: HYDROGEN PEROXIDE 3% 118 ML BOTTLE TP SCH ×2 (07:35→19:26)
[2023-06-20 08:02] VITALS: TEMP 97.9
[2023-06-20] MEDS: PHENYTOIN 100 MG/4 ML UDC GT SCH ×2 (09:33→21:57)
[2023-06-20] MEDS: FERROUS SULFATE 330 MG/7.5 ML UDC- FOR SA ONLY GT SCH ×2 (09:34→21:57)
[2023-06-20] MEDS: ACIDOPHILUS/BULGARICUS CHEW TAB GT SCH ×2 (09:35→21:57)
[2023-06-20] MEDS: FUROSEMIDE 10 MG/ML GT SCH (09:35)
[2023-06-20] MEDS: levETIRAcetam 500 MG/5 ML LIQUID UDC GT SCH ×2 (09:36→21:57)
[2023-06-20] MEDS: POTASSIUM CHLORIDE 40 MEQ/30 ML LIQUID UDC GT SCH (09:36)
[2023-06-20] MEDS: NYSTATIN POWDER 15 GM BOTTLE TP SCH ×2 (09:37→21:58)
[2023-06-20] MEDS: KETOCONAZOLE 2% SHAMPOO 120 ML BOTTLE TP SCH (09:37)
[2023-06-20] MEDS: REMEDY ESSENTIAL ZINC PASTE 113 GM TP SCH ×2 (09:38→21:58)
[2023-06-20 20:00] VITALS: TEMP 96
[2023-06-20] MEDS: FOLIC ACID 1 MG TABLET GT SCH (21:57)
[2023-06-20] MEDS: THIAMINE HCL 100 MG TABLET GT SCH (21:58)
[2023-06-20] MEDS: CHOLECALCIFEROL 1,000 UNIT TABLET GT SCH (21:58)
[2023-06-20] MEDS: VITAL AF 1.2 1,000 ML LIQUID GT PRN (23:00)
[2023-06-21] MEDS: ALBUTEROL SULFATE 2.5 MG/3 ML NEBU NEB SCH ×6 (03:35→23:31)
[2023-06-21] MEDS: IPRATROPIUM BROMIDE 0.5 MG/2.5 ML NEBU NEB SCH ×6 (03:35→23:31)
[2023-06-21] MEDS: MIDODRINE HCL 10 MG TABLET GT SCH ×3 (06:00→21:37)
[2023-06-21] MEDS: BACLOFEN 20 MG TABLET GT SCH ×3 (06:44→21:37)
[2023-06-21] MEDS: MAGNESIUM OXIDE 400 MG TABLET GT SCH (06:44)
[2023-06-21] MEDS: OMEPRAZOLE 20 MG CAPSULE.DR GT SCH (06:45)
[2023-06-21] MEDS: METOCLOPRAMIDE HCL 5 MG TABLET GT SCH ×3 (06:45→21:38)
[2023-06-21 07:37] VITALS: TEMP 97
[2023-06-21] MEDS: FERROUS SULFATE 330 MG/7.5 ML UDC- FOR SA ONLY GT SCH ×2 (09:36→21:37)
[2023-06-21] MEDS: PHENYTOIN 100 MG/4 ML UDC GT SCH ×2 (09:36→21:37)
[2023-06-21] MEDS: ACIDOPHILUS/BULGARICUS CHEW TAB GT SCH ×2 (09:37→21:37)
[2023-06-21] MEDS: FUROSEMIDE 10 MG/ML GT SCH (09:39)
[2023-06-21] MEDS: levETIRAcetam 500 MG/5 ML LIQUID UDC GT SCH ×2 (09:39→21:37)
[2023-06-21] MEDS: POTASSIUM CHLORIDE 40 MEQ/30 ML LIQUID UDC GT SCH (09:40)
[2023-06-21] MEDS: NYSTATIN POWDER 15 GM BOTTLE TP SCH ×2 (09:40→21:37)
[2023-06-21] MEDS: REMEDY ESSENTIAL ZINC PASTE 113 GM TP SCH ×2 (09:40→21:37)
[2023-06-21] MEDS: HYDROGEN PEROXIDE 3% 118 ML BOTTLE TP SCH ×2 (09:51→19:09)
[2023-06-21] MEDS ORDERED: TUBERCULIN,PURIF.PROT.DERIV. 5 TU/0.1 ML TEST ID SCH (12:00)
[2023-06-21 20:56] VITALS: TEMP 98.2
[2023-06-21] MEDS: FOLIC ACID 1 MG TABLET GT SCH (21:37)
[2023-06-21] MEDS: THIAMINE HCL 100 MG TABLET GT SCH (21:37)
[2023-06-21] MEDS: CHOLECALCIFEROL 1,000 UNIT TABLET GT SCH (21:37)
[2023-06-22] MEDS: IPRATROPIUM BROMIDE 0.5 MG/2.5 ML NEBU NEB SCH ×6 (03:22→22:31)
[2023-06-22] MEDS: ALBUTEROL SULFATE 2.5 MG/3 ML NEBU NEB SCH ×6 (03:22→22:31)
[2023-06-22] MEDS: MIDODRINE HCL 10 MG TABLET GT SCH ×3 (06:00→21:55)
[2023-06-22] MEDS: BACLOFEN 20 MG TABLET GT SCH ×3 (06:29→21:54)
[2023-06-22] MEDS: MAGNESIUM OXIDE 400 MG TABLET GT SCH (06:29)
[2023-06-22] MEDS: OMEPRAZOLE 20 MG CAPSULE.DR GT SCH (06:30)
[2023-06-22] MEDS: METOCLOPRAMIDE HCL 5 MG TABLET GT SCH ×3 (06:30→21:54)
[2023-06-22] MEDS: HYDROGEN PEROXIDE 3% 118 ML BOTTLE TP SCH ×2 (07:46→19:21)
[2023-06-22 09:02] VITALS: TEMP 97
[2023-06-22] MEDS: PHENYTOIN 100 MG/4 ML UDC GT SCH ×2 (09:12→21:53)
[2023-06-22] MEDS: FERROUS SULFATE 330 MG/7.5 ML UDC- FOR SA ONLY GT SCH ×2 (09:13→21:53)
[2023-06-22] MEDS: levETIRAcetam 500 MG/5 ML LIQUID UDC GT SCH ×2 (09:14→21:54)
[2023-06-22] MEDS: ACIDOPHILUS/BULGARICUS CHEW TAB GT SCH ×2 (09:14→21:53)
[2023-06-22] MEDS: FUROSEMIDE 10 MG/ML GT SCH (09:15)
[2023-06-22] MEDS: VITAL AF 1.2 1,000 ML LIQUID GT PRN (09:17)
[2023-06-22] MEDS: POTASSIUM CHLORIDE 40 MEQ/30 ML LIQUID UDC GT SCH (09:17)
[2023-06-22] MEDS: REMEDY ESSENTIAL ZINC PASTE 113 GM TP SCH ×2 (09:17→21:54)
[2023-06-22] MEDS: NYSTATIN POWDER 15 GM BOTTLE TP SCH ×2 (09:17→21:54)
[2023-06-22 20:26] VITALS: TEMP 98.5
[2023-06-22] MEDS: FOLIC ACID 1 MG TABLET GT SCH (21:53)
[2023-06-22] MEDS: MIRALAX 17 GM POWD.PACK GT SCH (21:54)
[2023-06-22] MEDS: CHOLECALCIFEROL 1,000 UNIT TABLET GT SCH (21:54)
[2023-06-22] MEDS: THIAMINE HCL 100 MG TABLET GT SCH (21:54)
[2023-06-23] MEDS: ALBUTEROL SULFATE 2.5 MG/3 ML NEBU NEB SCH ×6 (02:44→23:35)
[2023-06-23] MEDS: IPRATROPIUM BROMIDE 0.5 MG/2.5 ML NEBU NEB SCH ×6 (02:44→23:35)
[2023-06-23] MEDS: BACLOFEN 20 MG TABLET GT SCH ×3 (05:53→22:14)
[2023-06-23] MEDS: MAGNESIUM OXIDE 400 MG TABLET GT SCH (05:54)
[2023-06-23] MEDS: METOCLOPRAMIDE HCL 5 MG TABLET GT SCH ×3 (05:54→22:17)
[2023-06-23] MEDS: OMEPRAZOLE 20 MG CAPSULE.DR GT SCH (05:54)
[2023-06-23] MEDS: MIDODRINE HCL 10 MG TABLET GT SCH ×3 (05:54→22:00)
[2023-06-23] MEDS: HYDROGEN PEROXIDE 3% 118 ML BOTTLE TP SCH ×2 (07:24→19:08)
[2023-06-23 07:25] VITALS: TEMP 97.7
[2023-06-23] MEDS: PHENYTOIN 100 MG/4 ML UDC GT SCH ×2 (08:48→21:00)
[2023-06-23] MEDS: FERROUS SULFATE 330 MG/7.5 ML UDC- FOR SA ONLY GT SCH ×2 (08:48→21:00)
[2023-06-23] MEDS: ACIDOPHILUS/BULGARICUS CHEW TAB GT SCH ×2 (08:49→21:00)
[2023-06-23] MEDS: FUROSEMIDE 10 MG/ML GT SCH (08:49)
[2023-06-23] MEDS: levETIRAcetam 500 MG/5 ML LIQUID UDC GT SCH ×2 (08:50→21:00)
[2023-06-23] MEDS: POTASSIUM CHLORIDE 40 MEQ/30 ML LIQUID UDC GT SCH (08:50)
[2023-06-23] MEDS: REMEDY ESSENTIAL ZINC PASTE 113 GM TP SCH ×2 (08:51→21:00)
[2023-06-23] MEDS: NYSTATIN POWDER 15 GM BOTTLE TP SCH ×2 (08:51→21:00)
[2023-06-23] MEDS ORDERED: TUBERCULIN,PURIF.PROT.DERIV. 5 TU/0.1 ML TEST ID ONE (14:00)
[2023-06-23 19:47] VITALS: TEMP 97.5
[2023-06-23] MEDS: FOLIC ACID 1 MG TABLET GT SCH (21:00)
[2023-06-23] MEDS: THIAMINE HCL 100 MG TABLET GT SCH (21:00)
[2023-06-23] MEDS: CHOLECALCIFEROL 1,000 UNIT TABLET GT SCH (21:00)
[2023-06-23] MEDS: VITAL AF 1.2 1,000 ML LIQUID GT PRN (22:18)
[2023-06-24] MEDS: IPRATROPIUM BROMIDE 0.5 MG/2.5 ML NEBU NEB SCH ×6 (03:19→23:16)
[2023-06-24] MEDS: ALBUTEROL SULFATE 2.5 MG/3 ML NEBU NEB SCH ×6 (03:19→23:17)
[2023-06-24] MEDS: BACLOFEN 20 MG TABLET GT SCH ×3 (05:28→22:05)
[2023-06-24] MEDS: MAGNESIUM OXIDE 400 MG TABLET GT SCH (05:28)
[2023-06-24] MEDS: MIDODRINE HCL 10 MG TABLET GT SCH ×3 (05:29→22:00)
[2023-06-24] MEDS: OMEPRAZOLE 20 MG CAPSULE.DR GT SCH (05:29)
[2023-06-24] MEDS: METOCLOPRAMIDE HCL 5 MG TABLET GT SCH ×3 (05:29→22:06)
[2023-06-24 08:03] VITALS: TEMP 97.6
[2023-06-24] MEDS: FERROUS SULFATE 330 MG/7.5 ML UDC- FOR SA ONLY GT SCH ×2 (08:53→21:00)
[2023-06-24] MEDS: PHENYTOIN 100 MG/4 ML UDC GT SCH ×2 (08:53→21:00)
[2023-06-24] MEDS: levETIRAcetam 500 MG/5 ML LIQUID UDC GT SCH ×2 (08:54→21:00)
[2023-06-24] MEDS: FUROSEMIDE 10 MG/ML GT SCH (08:54)
[2023-06-24] MEDS: ACIDOPHILUS/BULGARICUS CHEW TAB GT SCH ×2 (08:54→21:00)
[2023-06-24] MEDS: POTASSIUM CHLORIDE 40 MEQ/30 ML LIQUID UDC GT SCH (08:56)
[2023-06-24] MEDS: REMEDY ESSENTIAL ZINC PASTE 113 GM TP SCH ×2 (08:56→21:00)
[2023-06-24] MEDS: KETOCONAZOLE 2% SHAMPOO 120 ML BOTTLE TP SCH (08:56)
[2023-06-24] MEDS: NYSTATIN POWDER 15 GM BOTTLE TP SCH ×2 (08:56→21:00)
[2023-06-24] MEDS: HYDROGEN PEROXIDE 3% 118 ML BOTTLE TP SCH ×2 (09:00→20:23)
[2023-06-24 20:00] VITALS: TEMP 93.8
[2023-06-24] MEDS: FOLIC ACID 1 MG TABLET GT SCH (21:00)
[2023-06-24] MEDS: THIAMINE HCL 100 MG TABLET GT SCH (21:00)
[2023-06-24] MEDS: MIRALAX 17 GM POWD.PACK GT SCH (21:00)
[2023-06-24] MEDS: CHOLECALCIFEROL 1,000 UNIT TABLET GT SCH (21:00)
[2023-06-24 23:00] VITALS: TEMP 96
[2023-06-25 03:00] VITALS: TEMP 97.2
[2023-06-25] MEDS: IPRATROPIUM BROMIDE 0.5 MG/2.5 ML NEBU NEB SCH ×6 (03:03→23:30)
[2023-06-25] MEDS: ALBUTEROL SULFATE 2.5 MG/3 ML NEBU NEB SCH ×6 (03:04→23:30)
[2023-06-25] MEDS: BACLOFEN 20 MG TABLET GT SCH ×3 (05:55→22:00)
[2023-06-25] MEDS: MIDODRINE HCL 10 MG TABLET GT SCH ×3 (05:55→22:00)
[2023-06-25] MEDS: MAGNESIUM OXIDE 400 MG TABLET GT SCH (05:55)
[2023-06-25] MEDS: OMEPRAZOLE 20 MG CAPSULE.DR GT SCH (05:56)
[2023-06-25] MEDS: METOCLOPRAMIDE HCL 5 MG TABLET GT SCH ×3 (05:56→22:00)
[2023-06-25 06:00] VITALS: TEMP 97.8
[2023-06-25 08:12] VITALS: TEMP 98.6
[2023-06-25] MEDS: PHENYTOIN 100 MG/4 ML UDC GT SCH ×2 (09:22→21:00)
[2023-06-25] MEDS: FERROUS SULFATE 330 MG/7.5 ML UDC- FOR SA ONLY GT SCH ×2 (09:25→21:00)
[2023-06-25] MEDS: FUROSEMIDE 10 MG/ML GT SCH (09:27)
[2023-06-25] MEDS: ACIDOPHILUS/BULGARICUS CHEW TAB GT SCH ×2 (09:27→21:00)
[2023-06-25] MEDS: levETIRAcetam 500 MG/5 ML LIQUID UDC GT SCH ×2 (09:28→21:00)
[2023-06-25] MEDS: POTASSIUM CHLORIDE 40 MEQ/30 ML LIQUID UDC GT SCH (09:29)
[2023-06-25] MEDS: REMEDY ESSENTIAL ZINC PASTE 113 GM TP SCH ×2 (09:30→21:00)
[2023-06-25] MEDS: NYSTATIN POWDER 15 GM BOTTLE TP SCH ×2 (09:30→21:00)
[2023-06-25] MEDS: HYDROGEN PEROXIDE 3% 118 ML BOTTLE TP SCH ×2 (09:57→19:14)
[2023-06-25 20:00] VITALS: TEMP 96.6
[2023-06-25] MEDS: THIAMINE HCL 100 MG TABLET GT SCH (21:00)
[2023-06-25] MEDS: FOLIC ACID 1 MG TABLET GT SCH (21:00)
[2023-06-25] MEDS: CHOLECALCIFEROL 1,000 UNIT TABLET GT SCH (21:00)
[2023-06-25 23:00] VITALS: TEMP 97
[2023-06-26 02:30] VITALS: TEMP 97.8
[2023-06-26] MEDS: IPRATROPIUM BROMIDE 0.5 MG/2.5 ML NEBU NEB SCH ×6 (03:28→23:19)
[2023-06-26] MEDS: ALBUTEROL SULFATE 2.5 MG/3 ML NEBU NEB SCH ×6 (03:28→23:19)
[2023-06-26 06:00] VITALS: TEMP 98.8
[2023-06-26] MEDS: OMEPRAZOLE 20 MG CAPSULE.DR GT SCH (06:53)
[2023-06-26] MEDS: MIDODRINE HCL 10 MG TABLET GT SCH ×3 (06:53→22:00)
[2023-06-26] MEDS: MAGNESIUM OXIDE 400 MG TABLET GT SCH (06:53)
[2023-06-26] MEDS: BACLOFEN 20 MG TABLET GT SCH ×3 (06:53→22:05)
[2023-06-26] MEDS: METOCLOPRAMIDE HCL 5 MG TABLET GT SCH ×3 (06:53→22:00)
[2023-06-26] MEDS: HYDROGEN PEROXIDE 3% 118 ML BOTTLE TP SCH ×2 (07:23→19:16)
[2023-06-26 07:44] VITALS: TEMP 98.5
[2023-06-26] MEDS: levETIRAcetam 500 MG/5 ML LIQUID UDC GT SCH ×2 (09:00→20:18)
[2023-06-26] MEDS: ACIDOPHILUS/BULGARICUS CHEW TAB GT SCH ×2 (09:00→20:17)
[2023-06-26] MEDS: FUROSEMIDE 10 MG/ML GT SCH (09:00)
[2023-06-26] MEDS: NYSTATIN POWDER 15 GM BOTTLE TP SCH ×2 (09:00→20:20)
[2023-06-26] MEDS: REMEDY ESSENTIAL ZINC PASTE 113 GM TP SCH ×2 (09:00→20:20)
[2023-06-26] MEDS: PHENYTOIN 100 MG/4 ML UDC GT SCH ×2 (09:00→20:17)
[2023-06-26] MEDS: FERROUS SULFATE 330 MG/7.5 ML UDC- FOR SA ONLY GT SCH ×2 (09:00→20:17)
[2023-06-26] MEDS: POTASSIUM CHLORIDE 40 MEQ/30 ML LIQUID UDC GT SCH (09:00)
[2023-06-26] MEDS: VITAL AF 1.2 1,000 ML LIQUID GT PRN (18:26)
[2023-06-26] MEDS: FOLIC ACID 1 MG TABLET GT SCH (20:17)
[2023-06-26] MEDS: MIRALAX 17 GM POWD.PACK GT SCH (20:18)
[2023-06-26] MEDS: THIAMINE HCL 100 MG TABLET GT SCH (20:18)
[2023-06-26] MEDS: CHOLECALCIFEROL 1,000 UNIT TABLET GT SCH (20:19)
[2023-06-27 01:53] VITALS: TEMP 94.2
[2023-06-27] MEDS: ALBUTEROL SULFATE 2.5 MG/3 ML NEBU NEB SCH ×6 (03:34→22:59)
[2023-06-27] MEDS: IPRATROPIUM BROMIDE 0.5 MG/2.5 ML NEBU NEB SCH ×6 (03:34→22:59)
[2023-06-27] MEDS: BACLOFEN 20 MG TABLET GT SCH ×3 (05:39→21:54)
[2023-06-27] MEDS: MIDODRINE HCL 10 MG TABLET GT SCH ×3 (05:40→21:30)
[2023-06-27] MEDS: MAGNESIUM OXIDE 400 MG TABLET GT SCH (05:40)
[2023-06-27] MEDS: OMEPRAZOLE 20 MG CAPSULE.DR GT SCH (05:41)
[2023-06-27] MEDS: METOCLOPRAMIDE HCL 5 MG TABLET GT SCH ×3 (05:41→21:31)
[2023-06-27 06:00] VITALS: TEMP 97.8
[2023-06-27 08:35] VITALS: TEMP 98.1
[2023-06-27] MEDS: PHENYTOIN 100 MG/4 ML UDC GT SCH ×2 (08:37→21:49)
[2023-06-27] MEDS: FERROUS SULFATE 330 MG/7.5 ML UDC- FOR SA ONLY GT SCH ×2 (08:39→21:32)
[2023-06-27] MEDS: ACIDOPHILUS/BULGARICUS CHEW TAB GT SCH ×2 (08:40→21:35)
[2023-06-27] MEDS: FUROSEMIDE 10 MG/ML GT SCH (08:41)
[2023-06-27] MEDS: POTASSIUM CHLORIDE 40 MEQ/30 ML LIQUID UDC GT SCH (08:42)
[2023-06-27] MEDS: NYSTATIN POWDER 15 GM BOTTLE TP SCH ×2 (08:46→21:34)
[2023-06-27] MEDS: KETOCONAZOLE 2% SHAMPOO 120 ML BOTTLE TP SCH (08:47)
[2023-06-27] MEDS: REMEDY ESSENTIAL ZINC PASTE 113 GM TP SCH ×2 (08:47→21:29)
[2023-06-27] MEDS: levETIRAcetam 500 MG/5 ML LIQUID UDC GT SCH ×2 (09:00→21:49)
[2023-06-27] MEDS: HYDROGEN PEROXIDE 3% 118 ML BOTTLE TP SCH ×2 (09:41→19:13)
[2023-06-27 20:00] VITALS: TEMP 96.5
[2023-06-27] MEDS: FOLIC ACID 1 MG TABLET GT SCH (21:31)
[2023-06-27] MEDS: CHOLECALCIFEROL 1,000 UNIT TABLET GT SCH (21:36)
[2023-06-27] MEDS: THIAMINE HCL 100 MG TABLET GT SCH (21:36)
[2023-06-27 22:00] VITALS: TEMP 96.5
[2023-06-28] MEDS: IPRATROPIUM BROMIDE 0.5 MG/2.5 ML NEBU NEB SCH ×6 (03:30→22:57)
[2023-06-28] MEDS: ALBUTEROL SULFATE 2.5 MG/3 ML NEBU NEB SCH ×6 (03:31→22:57)
[2023-06-28] MEDS: VITAL AF 1.2 1,000 ML LIQUID GT PRN (05:38)
[2023-06-28] MEDS: BACLOFEN 20 MG TABLET GT SCH ×3 (05:38→21:24)
[2023-06-28] MEDS: OMEPRAZOLE 20 MG CAPSULE.DR GT SCH (05:38)
[2023-06-28] MEDS: METOCLOPRAMIDE HCL 5 MG TABLET GT SCH ×3 (05:38→21:24)
[2023-06-28] MEDS: MIDODRINE HCL 10 MG TABLET GT SCH ×3 (05:47→21:25)
[2023-06-28] MEDS: MAGNESIUM OXIDE 400 MG TABLET GT SCH (05:51)
[2023-06-28] MEDS: HYDROGEN PEROXIDE 3% 118 ML BOTTLE TP SCH ×2 (07:36→19:12)
[2023-06-28 07:53] VITALS: TEMP 96.7
[2023-06-28] MEDS: levETIRAcetam 500 MG/5 ML LIQUID UDC GT SCH ×2 (09:07→21:47)
[2023-06-28] MEDS: NYSTATIN POWDER 15 GM BOTTLE TP SCH ×2 (09:07→21:24)
[2023-06-28] MEDS: FUROSEMIDE 10 MG/ML GT SCH (09:07)
[2023-06-28] MEDS: POTASSIUM CHLORIDE 40 MEQ/30 ML LIQUID UDC GT SCH (09:07)
[2023-06-28] MEDS: PHENYTOIN 100 MG/4 ML UDC GT SCH ×2 (09:07→21:47)
[2023-06-28] MEDS: REMEDY ESSENTIAL ZINC PASTE 113 GM TP SCH ×2 (09:07→21:24)
[2023-06-28] MEDS: ACIDOPHILUS/BULGARICUS CHEW TAB GT SCH ×2 (09:07→21:26)
[2023-06-28] MEDS: FERROUS SULFATE 330 MG/7.5 ML UDC- FOR SA ONLY GT SCH ×2 (09:07→21:25)
[2023-06-28 20:02] VITALS: TEMP 98.1
[2023-06-28] MEDS: FOLIC ACID 1 MG TABLET GT SCH (21:24)
[2023-06-28] MEDS: CHOLECALCIFEROL 1,000 UNIT TABLET GT SCH (21:28)
[2023-06-28] MEDS: THIAMINE HCL 100 MG TABLET GT SCH (21:28)
[2023-06-29] MEDS: IPRATROPIUM BROMIDE 0.5 MG/2.5 ML NEBU NEB SCH ×5 (03:43→19:03)
[2023-06-29] MEDS: ALBUTEROL SULFATE 2.5 MG/3 ML NEBU NEB SCH ×5 (03:43→19:03)
[2023-06-29] MEDS: MAGNESIUM OXIDE 400 MG TABLET GT SCH (05:44)
[2023-06-29] MEDS: MIDODRINE HCL 10 MG TABLET GT SCH ×3 (05:44→21:59)
[2023-06-29] MEDS: BACLOFEN 20 MG TABLET GT SCH ×3 (05:44→21:57)
[2023-06-29] MEDS: METOCLOPRAMIDE HCL 5 MG TABLET GT SCH ×3 (05:45→22:00)
[2023-06-29] MEDS: OMEPRAZOLE 20 MG CAPSULE.DR GT SCH (05:45)
[2023-06-29 07:48] VITALS: TEMP 98.7
[2023-06-29] MEDS: HYDROGEN PEROXIDE 3% 118 ML BOTTLE TP SCH ×2 (08:04→19:04)
[2023-06-29] MEDS: PHENYTOIN 100 MG/4 ML UDC GT SCH ×2 (08:58→21:53)
[2023-06-29] MEDS: FERROUS SULFATE 330 MG/7.5 ML UDC- FOR SA ONLY GT SCH ×2 (08:59→21:55)
[2023-06-29] MEDS: ACIDOPHILUS/BULGARICUS CHEW TAB GT SCH ×2 (09:00→21:56)
[2023-06-29] MEDS: FUROSEMIDE 10 MG/ML GT SCH (09:00)
[2023-06-29] MEDS: levETIRAcetam 500 MG/5 ML LIQUID UDC GT SCH ×2 (09:01→21:57)
[2023-06-29] MEDS: POTASSIUM CHLORIDE 40 MEQ/30 ML LIQUID UDC GT SCH (09:02)
[2023-06-29] MEDS: REMEDY ESSENTIAL ZINC PASTE 113 GM TP SCH ×2 (09:03→21:57)
[2023-06-29] MEDS: NYSTATIN POWDER 15 GM BOTTLE TP SCH (09:03)
[2023-06-29] MEDS: VITAL AF 1.2 1,000 ML LIQUID GT PRN (18:08)
[2023-06-29 19:51] VITALS: TEMP 94.3
[2023-06-29] MEDS: FOLIC ACID 1 MG TABLET GT SCH (21:56)
[2023-06-29] MEDS: CHOLECALCIFEROL 1,000 UNIT TABLET GT SCH (21:57)
[2023-06-29] MEDS: THIAMINE HCL 100 MG TABLET GT SCH (21:57)
[2023-06-29] MEDS: MIRALAX 17 GM POWD.PACK GT SCH (21:57)
[2023-06-30 00:10] VITALS: TEMP 96
[2023-06-30] MEDS: IPRATROPIUM BROMIDE 0.5 MG/2.5 ML NEBU NEB SCH ×7 (00:21→23:40)
[2023-06-30] MEDS: ALBUTEROL SULFATE 2.5 MG/3 ML NEBU NEB SCH ×7 (00:21→23:40)
[2023-06-30] MEDS: BACLOFEN 20 MG TABLET GT SCH ×3 (05:24→22:55)
[2023-06-30] MEDS: MIDODRINE HCL 10 MG TABLET GT SCH ×3 (05:25→22:00)
[2023-06-30] MEDS: OMEPRAZOLE 20 MG CAPSULE.DR GT SCH (05:25)
[2023-06-30] MEDS: MAGNESIUM OXIDE 400 MG TABLET GT SCH (05:25)
[2023-06-30] MEDS: METOCLOPRAMIDE HCL 5 MG TABLET GT SCH ×3 (05:26→22:56)
[2023-06-30 06:30] VITALS: TEMP 98
[2023-06-30 07:40] VITALS: TEMP 98.7
[2023-06-30] MEDS: HYDROGEN PEROXIDE 3% 118 ML BOTTLE TP SCH ×2 (09:00→19:25)
[2023-06-30] MEDS: PHENYTOIN 100 MG/4 ML UDC GT SCH ×2 (09:42→20:50)
[2023-06-30] MEDS: ACIDOPHILUS/BULGARICUS CHEW TAB GT SCH ×2 (09:44→20:51)
[2023-06-30] MEDS: FERROUS SULFATE 330 MG/7.5 ML UDC- FOR SA ONLY GT SCH ×2 (09:44→20:50)
[2023-06-30] MEDS: FUROSEMIDE 10 MG/ML GT SCH (09:45)
[2023-06-30] MEDS: levETIRAcetam 500 MG/5 ML LIQUID UDC GT SCH ×2 (09:45→20:51)
[2023-06-30] MEDS: POTASSIUM CHLORIDE 40 MEQ/30 ML LIQUID UDC GT SCH (09:47)
[2023-06-30] MEDS: REMEDY ESSENTIAL ZINC PASTE 113 GM TP SCH ×2 (09:48→20:52)
[2023-06-30] MEDS: NEOMY/BACITRA/POLYMYXIN B OINT UD PACKET TP SCH ×2 (09:48→20:52)
[2023-06-30] MEDS: TRIAMCINOLONE ACET 0.1% CREAM 15 GM TUBE TP SCH ×2 (09:48→20:51)
[2023-06-30 20:00] VITALS: TEMP 97.5
[2023-06-30] MEDS: CHOLECALCIFEROL 1,000 UNIT TABLET GT SCH (20:51)
[2023-06-30] MEDS: THIAMINE HCL 100 MG TABLET GT SCH (20:51)
[2023-06-30] MEDS: FOLIC ACID 1 MG TABLET GT SCH (20:51)
[2023-07-01] MEDS: IPRATROPIUM BROMIDE 0.5 MG/2.5 ML NEBU NEB SCH ×6 (03:27→23:11)
[2023-07-01] MEDS: ALBUTEROL SULFATE 2.5 MG/3 ML NEBU NEB SCH ×6 (03:27→23:11)
[2023-07-01] MEDS: MIDODRINE HCL 10 MG TABLET GT SCH ×3 (06:00→22:00)
[2023-07-01] MEDS: BACLOFEN 20 MG TABLET GT SCH ×3 (06:01→22:10)
[2023-07-01] MEDS: MAGNESIUM OXIDE 400 MG TABLET GT SCH (06:01)
[2023-07-01] MEDS: OMEPRAZOLE 20 MG CAPSULE.DR GT SCH (06:02)
[2023-07-01] MEDS: METOCLOPRAMIDE HCL 5 MG TABLET GT SCH ×3 (06:02→22:11)
[2023-07-01] MEDS: VITAL AF 1.2 1,000 ML LIQUID GT PRN (06:02)
[2023-07-01] MEDS: TRIAMCINOLONE ACET 0.1% CREAM 15 GM TUBE TP SCH ×2 (09:00→21:00)
[2023-07-01] MEDS: NEOMY/BACITRA/POLYMYXIN B OINT UD PACKET TP SCH ×2 (09:00→21:00)
[2023-07-01] MEDS: KETOCONAZOLE 2% SHAMPOO 120 ML BOTTLE TP SCH (09:00)
[2023-07-01] MEDS: HYDROGEN PEROXIDE 3% 118 ML BOTTLE TP SCH ×2 (09:03→19:13)
[2023-07-01] MEDS: ACIDOPHILUS/BULGARICUS CHEW TAB GT SCH ×2 (09:16→21:00)
[2023-07-01] MEDS: POTASSIUM CHLORIDE 40 MEQ/30 ML LIQUID UDC GT SCH (09:16)
[2023-07-01] MEDS: FERROUS SULFATE 330 MG/7.5 ML UDC- FOR SA ONLY GT SCH ×2 (09:16→21:00)
[2023-07-01] MEDS: FUROSEMIDE 10 MG/ML GT SCH (09:16)
[2023-07-01] MEDS: PHENYTOIN 100 MG/4 ML UDC GT SCH ×2 (09:16→21:00)
[2023-07-01] MEDS: levETIRAcetam 500 MG/5 ML LIQUID UDC GT SCH ×2 (09:16→21:00)
[2023-07-01] MEDS: REMEDY ESSENTIAL ZINC PASTE 113 GM TP SCH ×2 (09:17→21:00)
[2023-07-01 20:14] VITALS: TEMP 96
[2023-07-01] MEDS: FOLIC ACID 1 MG TABLET GT SCH (21:00)
[2023-07-01] MEDS: THIAMINE HCL 100 MG TABLET GT SCH (21:00)
[2023-07-01] MEDS: CHOLECALCIFEROL 1,000 UNIT TABLET GT SCH (21:00)
[2023-07-01] MEDS: MIRALAX 17 GM POWD.PACK GT SCH (21:00)
[2023-07-02] MEDS: IPRATROPIUM BROMIDE 0.5 MG/2.5 ML NEBU NEB SCH ×6 (03:43→23:02)
[2023-07-02] MEDS: ALBUTEROL SULFATE 2.5 MG/3 ML NEBU NEB SCH ×6 (03:43→23:02)
[2023-07-02] MEDS: MIDODRINE HCL 10 MG TABLET GT SCH ×3 (05:22→21:47)
[2023-07-02] MEDS: BACLOFEN 20 MG TABLET GT SCH ×3 (05:22→21:47)
[2023-07-02] MEDS: METOCLOPRAMIDE HCL 5 MG TABLET GT SCH ×3 (05:22→21:48)
[2023-07-02] MEDS: MAGNESIUM OXIDE 400 MG TABLET GT SCH (05:22)
[2023-07-02] MEDS: OMEPRAZOLE 20 MG CAPSULE.DR GT SCH (05:22)
[2023-07-02] MEDS: HYDROGEN PEROXIDE 3% 118 ML BOTTLE TP SCH ×2 (07:51→19:11)
[2023-07-02] MEDS: PHENYTOIN 100 MG/4 ML UDC GT SCH ×2 (08:15→21:47)
[2023-07-02] MEDS: FUROSEMIDE 10 MG/ML GT SCH (08:17)
[2023-07-02] MEDS: FERROUS SULFATE 330 MG/7.5 ML UDC- FOR SA ONLY GT SCH ×2 (08:17→21:47)
[2023-07-02] MEDS: ACIDOPHILUS/BULGARICUS CHEW TAB GT SCH ×2 (08:17→21:47)
[2023-07-02] MEDS: levETIRAcetam 500 MG/5 ML LIQUID UDC GT SCH ×2 (08:17→21:47)
[2023-07-02] MEDS: TRIAMCINOLONE ACET 0.1% CREAM 15 GM TUBE TP SCH ×2 (08:18→21:47)
[2023-07-02] MEDS: REMEDY ESSENTIAL ZINC PASTE 113 GM TP SCH ×2 (08:18→21:47)
[2023-07-02] MEDS: POTASSIUM CHLORIDE 40 MEQ/30 ML LIQUID UDC GT SCH (08:18)
[2023-07-02] MEDS: NEOMY/BACITRA/POLYMYXIN B OINT UD PACKET TP SCH ×2 (08:19→21:47)
[2023-07-02 10:00] VITALS: TEMP 98.4
[2023-07-02 20:00] VITALS: TEMP 101.2; TEMP 99
[2023-07-02] MEDS: FOLIC ACID 1 MG TABLET GT SCH (21:47)
[2023-07-02] MEDS: THIAMINE HCL 100 MG TABLET GT SCH (21:47)
[2023-07-02] MEDS: CHOLECALCIFEROL 1,000 UNIT TABLET GT SCH (21:47)
[2023-07-03] VITALS: TEMP 99.4
[2023-07-03] MEDS: ALBUTEROL SULFATE 2.5 MG/3 ML NEBU NEB SCH ×6 (02:54→23:07)
[2023-07-03] MEDS: IPRATROPIUM BROMIDE 0.5 MG/2.5 ML NEBU NEB SCH ×6 (02:54→23:07)
[2023-07-03 04:49] VITALS: TEMP 97.1
[2023-07-03] MEDS: METOCLOPRAMIDE HCL 5 MG TABLET GT SCH ×3 (05:36→22:42)
[2023-07-03] MEDS: MAGNESIUM OXIDE 400 MG TABLET GT SCH (05:36)
[2023-07-03] MEDS: MIDODRINE HCL 10 MG TABLET GT SCH ×3 (05:36→22:00)
[2023-07-03] MEDS: BACLOFEN 20 MG TABLET GT SCH ×3 (05:36→22:40)
[2023-07-03] MEDS: OMEPRAZOLE 20 MG CAPSULE.DR GT SCH (05:36)
[2023-07-03] MEDS: FERROUS SULFATE 330 MG/7.5 ML UDC- FOR SA ONLY GT SCH ×2 (08:30→21:00)
[2023-07-03] MEDS: PHENYTOIN 100 MG/4 ML UDC GT SCH ×2 (08:30→21:00)
[2023-07-03] MEDS: FUROSEMIDE 10 MG/ML GT SCH (08:31)
[2023-07-03] MEDS: ACIDOPHILUS/BULGARICUS CHEW TAB GT SCH ×2 (08:31→21:00)
[2023-07-03] MEDS: levETIRAcetam 500 MG/5 ML LIQUID UDC GT SCH ×2 (08:32→21:00)
[2023-07-03] MEDS: REMEDY ESSENTIAL ZINC PASTE 113 GM TP SCH ×2 (08:33→21:00)
[2023-07-03] MEDS: TRIAMCINOLONE ACET 0.1% CREAM 15 GM TUBE TP SCH ×2 (08:33→21:00)
[2023-07-03] MEDS: POTASSIUM CHLORIDE 40 MEQ/30 ML LIQUID UDC GT SCH (08:33)
[2023-07-03] MEDS: NEOMY/BACITRA/POLYMYXIN B OINT UD PACKET TP SCH ×2 (08:33→21:00)
[2023-07-03] MEDS: HYDROGEN PEROXIDE 3% 118 ML BOTTLE TP SCH ×2 (09:50→19:11)
[2023-07-03 11:09] VITALS: TEMP 97
[2023-07-03 20:00] VITALS: BP 119/79; TEMP 94.1; TEMP 95.6; O2SAT 99
[2023-07-03] MEDS: MIRALAX 17 GM POWD.PACK GT SCH (21:00)
[2023-07-03] MEDS: FOLIC ACID 1 MG TABLET GT SCH (21:00)
[2023-07-03] MEDS: CHOLECALCIFEROL 1,000 UNIT TABLET GT SCH (21:00)
[2023-07-03] MEDS: THIAMINE HCL 100 MG TABLET GT SCH (21:00)
[2023-07-04] MEDS: ALBUTEROL SULFATE 2.5 MG/3 ML NEBU NEB SCH ×6 (03:14→23:32)
[2023-07-04] MEDS: IPRATROPIUM BROMIDE 0.5 MG/2.5 ML NEBU NEB SCH ×6 (03:14→23:32)
[2023-07-04] MEDS: MAGNESIUM OXIDE 400 MG TABLET GT SCH (06:41)
[2023-07-04] MEDS: METOCLOPRAMIDE HCL 5 MG TABLET GT SCH ×3 (06:41→21:19)
[2023-07-04] MEDS: BACLOFEN 20 MG TABLET GT SCH ×3 (06:41→21:18)
[2023-07-04] MEDS: OMEPRAZOLE 20 MG CAPSULE.DR GT SCH (06:41)
[2023-07-04] MEDS: MIDODRINE HCL 10 MG TABLET GT SCH ×3 (06:41→21:19)
[2023-07-04] MEDS: NEOMY/BACITRA/POLYMYXIN B OINT UD PACKET TP SCH ×2 (09:00→20:39)
[2023-07-04] MEDS: PHENYTOIN 100 MG/4 ML UDC GT SCH ×2 (09:00→20:39)
[2023-07-04] MEDS: POTASSIUM CHLORIDE 40 MEQ/30 ML LIQUID UDC GT SCH (09:00)
[2023-07-04] MEDS: TRIAMCINOLONE ACET 0.1% CREAM 15 GM TUBE TP SCH ×2 (09:00→20:39)
[2023-07-04] MEDS: levETIRAcetam 500 MG/5 ML LIQUID UDC GT SCH ×2 (09:00→20:39)
[2023-07-04] MEDS: KETOCONAZOLE 2% SHAMPOO 120 ML BOTTLE TP SCH (09:00)
[2023-07-04] MEDS: FERROUS SULFATE 330 MG/7.5 ML UDC- FOR SA ONLY GT SCH ×2 (09:00→20:39)
[2023-07-04] MEDS: FUROSEMIDE 10 MG/ML GT SCH (09:00)
[2023-07-04] MEDS: ACIDOPHILUS/BULGARICUS CHEW TAB GT SCH ×2 (09:00→20:39)
[2023-07-04 09:18] VITALS: TEMP 97.5
[2023-07-04] MEDS: HYDROGEN PEROXIDE 3% 118 ML BOTTLE TP SCH ×2 (09:33→19:24)
[2023-07-04] MEDS: REMEDY ESSENTIAL ZINC PASTE 113 GM TP SCH ×2 (10:00→20:39)
[2023-07-04 20:00] VITALS: TEMP 95
[2023-07-04] MEDS: FOLIC ACID 1 MG TABLET GT SCH (20:39)
[2023-07-04] MEDS: THIAMINE HCL 100 MG TABLET GT SCH (20:39)
[2023-07-04] MEDS: CHOLECALCIFEROL 1,000 UNIT TABLET GT SCH (20:39)
[2023-07-05] MEDS: IPRATROPIUM BROMIDE 0.5 MG/2.5 ML NEBU NEB SCH ×6 (02:50→23:44)
[2023-07-05] MEDS: ALBUTEROL SULFATE 2.5 MG/3 ML NEBU NEB SCH ×6 (02:50→23:44)
[2023-07-05] MEDS: OMEPRAZOLE 20 MG CAPSULE.DR GT SCH (05:21)
[2023-07-05] MEDS: BACLOFEN 20 MG TABLET GT SCH ×3 (05:21→21:15)
[2023-07-05] MEDS: MIDODRINE HCL 10 MG TABLET GT SCH ×3 (05:21→21:17)
[2023-07-05] MEDS: MAGNESIUM OXIDE 400 MG TABLET GT SCH (05:21)
[2023-07-05] MEDS: METOCLOPRAMIDE HCL 5 MG TABLET GT SCH ×3 (05:22→21:17)
[2023-07-05 08:07] VITALS: TEMP 94.2
[2023-07-05] MEDS: FUROSEMIDE 10 MG/ML GT SCH (08:19)
[2023-07-05] MEDS: ACIDOPHILUS/BULGARICUS CHEW TAB GT SCH ×2 (08:19→21:14)
[2023-07-05] MEDS: levETIRAcetam 500 MG/5 ML LIQUID UDC GT SCH ×2 (08:19→21:14)
[2023-07-05] MEDS: FERROUS SULFATE 330 MG/7.5 ML UDC- FOR SA ONLY GT SCH ×2 (08:19→21:14)
[2023-07-05] MEDS: PHENYTOIN 100 MG/4 ML UDC GT SCH ×2 (08:19→21:14)
[2023-07-05] MEDS: POTASSIUM CHLORIDE 40 MEQ/30 ML LIQUID UDC GT SCH (08:19)
[2023-07-05] MEDS: REMEDY ESSENTIAL ZINC PASTE 113 GM TP SCH ×2 (08:20→21:15)
[2023-07-05] MEDS: TRIAMCINOLONE ACET 0.1% CREAM 15 GM TUBE TP SCH ×2 (08:20→21:14)
[2023-07-05] MEDS: NEOMY/BACITRA/POLYMYXIN B OINT UD PACKET TP SCH ×2 (08:20→21:15)
[2023-07-05] MEDS: HYDROGEN PEROXIDE 3% 118 ML BOTTLE TP SCH ×2 (09:00→19:16)
[2023-07-05 20:00] VITALS: TEMP 97.4
[2023-07-05] MEDS: CHOLECALCIFEROL 1,000 UNIT TABLET GT SCH (21:14)
[2023-07-05] MEDS: THIAMINE HCL 100 MG TABLET GT SCH (21:14)
[2023-07-05] MEDS: FOLIC ACID 1 MG TABLET GT SCH (21:14)
[2023-07-06] MEDS: ALBUTEROL SULFATE 2.5 MG/3 ML NEBU NEB SCH ×6 (03:27→23:30)
[2023-07-06] MEDS: IPRATROPIUM BROMIDE 0.5 MG/2.5 ML NEBU NEB SCH ×6 (03:27→23:30)
[2023-07-06] MEDS: MAGNESIUM OXIDE 400 MG TABLET GT SCH (05:10)
[2023-07-06] MEDS: MIDODRINE HCL 10 MG TABLET GT SCH ×3 (05:10→22:00)
[2023-07-06] MEDS: BACLOFEN 20 MG TABLET GT SCH ×3 (05:10→22:00)
[2023-07-06] MEDS: METOCLOPRAMIDE HCL 5 MG TABLET GT SCH ×3 (05:11→22:00)
[2023-07-06] MEDS: OMEPRAZOLE 20 MG CAPSULE.DR GT SCH (05:11)
[2023-07-06] MEDS: VITAL AF 1.2 1,000 ML LIQUID GT PRN (05:27)
[2023-07-06] MEDS: HYDROGEN PEROXIDE 3% 118 ML BOTTLE TP SCH ×2 (07:13→21:00)
[2023-07-06 09:00] VITALS: TEMP 98.7
[2023-07-06] MEDS: PHENYTOIN 100 MG/4 ML UDC GT SCH ×2 (09:41→21:00)
[2023-07-06] MEDS: POTASSIUM CHLORIDE 40 MEQ/30 ML LIQUID UDC GT SCH (09:42)
[2023-07-06] MEDS: REMEDY ESSENTIAL ZINC PASTE 113 GM TP SCH ×2 (09:42→21:00)
[2023-07-06] MEDS: FUROSEMIDE 10 MG/ML GT SCH (09:42)
[2023-07-06] MEDS: ACIDOPHILUS/BULGARICUS CHEW TAB GT SCH ×2 (09:42→21:00)
[2023-07-06] MEDS: TRIAMCINOLONE ACET 0.1% CREAM 15 GM TUBE TP SCH ×2 (09:42→21:00)
[2023-07-06] MEDS: NEOMY/BACITRA/POLYMYXIN B OINT UD PACKET TP SCH ×2 (09:42→21:00)
[2023-07-06] MEDS: FERROUS SULFATE 330 MG/7.5 ML UDC- FOR SA ONLY GT SCH ×2 (09:42→21:00)
[2023-07-06] MEDS: levETIRAcetam 500 MG/5 ML LIQUID UDC GT SCH ×2 (09:42→21:00)
[2023-07-06 10:40] VITALS: O2SAT 98
[2023-07-06 20:00] VITALS: TEMP 97.4
[2023-07-06] MEDS: THIAMINE HCL 100 MG TABLET GT SCH (21:00)
[2023-07-06] MEDS: MIRALAX 17 GM POWD.PACK GT SCH (21:00)
[2023-07-06] MEDS: CHOLECALCIFEROL 1,000 UNIT TABLET GT SCH (21:00)
[2023-07-06] MEDS: FOLIC ACID 1 MG TABLET GT SCH (21:00)
[2023-07-07] MEDS: IPRATROPIUM BROMIDE 0.5 MG/2.5 ML NEBU NEB SCH ×6 (03:06→22:57)
[2023-07-07] MEDS: ALBUTEROL SULFATE 2.5 MG/3 ML NEBU NEB SCH ×6 (03:06→22:57)
[2023-07-07] MEDS: MIDODRINE HCL 10 MG TABLET GT SCH ×3 (06:00→22:00)
[2023-07-07] MEDS: OMEPRAZOLE 20 MG CAPSULE.DR GT SCH (06:00)
[2023-07-07] MEDS: MAGNESIUM OXIDE 400 MG TABLET GT SCH (06:00)
[2023-07-07] MEDS: METOCLOPRAMIDE HCL 5 MG TABLET GT SCH ×3 (06:00→22:00)
[2023-07-07] MEDS: BACLOFEN 20 MG TABLET GT SCH ×3 (06:00→22:00)
[2023-07-07] MEDS: HYDROGEN PEROXIDE 3% 118 ML BOTTLE TP SCH ×2 (08:17→19:20)
[2023-07-07] MEDS: FUROSEMIDE 10 MG/ML GT SCH (09:00)
[2023-07-07] MEDS: FERROUS SULFATE 330 MG/7.5 ML UDC- FOR SA ONLY GT SCH ×2 (09:00→20:54)
[2023-07-07] MEDS: POTASSIUM CHLORIDE 40 MEQ/30 ML LIQUID UDC GT SCH (09:00)
[2023-07-07] MEDS: REMEDY ESSENTIAL ZINC PASTE 113 GM TP SCH ×2 (09:00→20:54)
[2023-07-07] MEDS: PHENYTOIN 100 MG/4 ML UDC GT SCH ×2 (09:00→20:54)
[2023-07-07] MEDS: levETIRAcetam 500 MG/5 ML LIQUID UDC GT SCH ×2 (09:00→20:54)
[2023-07-07] MEDS: ACIDOPHILUS/BULGARICUS CHEW TAB GT SCH ×2 (09:00→20:54)
[2023-07-07] MEDS: TRIAMCINOLONE ACET 0.1% CREAM 15 GM TUBE TP SCH ×2 (09:00→20:54)
[2023-07-07] MEDS: NEOMY/BACITRA/POLYMYXIN B OINT UD PACKET TP SCH ×2 (10:00→20:54)
[2023-07-07] MEDS: VITAL AF 1.2 1,000 ML LIQUID GT PRN (16:37)
[2023-07-07 17:58] VITALS: TEMP 98.6
[2023-07-07 20:06] VITALS: TEMP 98.4
[2023-07-07] MEDS: CHOLECALCIFEROL 1,000 UNIT TABLET GT SCH (20:54)
[2023-07-07] MEDS: FOLIC ACID 1 MG TABLET GT SCH (20:54)
[2023-07-07] MEDS: THIAMINE HCL 100 MG TABLET GT SCH (20:54)
[2023-07-08] MEDS: ALBUTEROL SULFATE 2.5 MG/3 ML NEBU NEB SCH ×6 (03:38→22:59)
[2023-07-08] MEDS: IPRATROPIUM BROMIDE 0.5 MG/2.5 ML NEBU NEB SCH ×6 (03:38→22:59)
[2023-07-08] MEDS: MIDODRINE HCL 10 MG TABLET GT SCH ×3 (06:00→22:08)
[2023-07-08] MEDS: BACLOFEN 20 MG TABLET GT SCH ×3 (06:08→22:07)
[2023-07-08] MEDS: MAGNESIUM OXIDE 400 MG TABLET GT SCH (06:08)
[2023-07-08] MEDS: OMEPRAZOLE 20 MG CAPSULE.DR GT SCH (06:09)
[2023-07-08] MEDS: METOCLOPRAMIDE HCL 5 MG TABLET GT SCH ×3 (06:09→22:08)
[2023-07-08] MEDS: HYDROGEN PEROXIDE 3% 118 ML BOTTLE TP SCH ×2 (07:34→19:08)
[2023-07-08 08:26] VITALS: BP 111/62; TEMP 97.6; O2SAT 94
[2023-07-08] MEDS: levETIRAcetam 500 MG/5 ML LIQUID UDC GT SCH ×2 (09:00→21:00)
[2023-07-08] MEDS: REMEDY ESSENTIAL ZINC PASTE 113 GM TP SCH ×2 (09:00→21:00)
[2023-07-08] MEDS: FERROUS SULFATE 330 MG/7.5 ML UDC- FOR SA ONLY GT SCH ×2 (09:00→21:00)
[2023-07-08] MEDS: POTASSIUM CHLORIDE 40 MEQ/30 ML LIQUID UDC GT SCH (09:00)
[2023-07-08] MEDS: NEOMY/BACITRA/POLYMYXIN B OINT UD PACKET TP SCH ×2 (09:00→21:00)
[2023-07-08] MEDS: TRIAMCINOLONE ACET 0.1% CREAM 15 GM TUBE TP SCH ×2 (09:00→21:00)
[2023-07-08] MEDS: PHENYTOIN 100 MG/4 ML UDC GT SCH ×2 (09:00→21:00)
[2023-07-08] MEDS: ACIDOPHILUS/BULGARICUS CHEW TAB GT SCH ×2 (09:00→21:00)
[2023-07-08] MEDS: FUROSEMIDE 10 MG/ML GT SCH (09:00)
[2023-07-08] MEDS: KETOCONAZOLE 2% SHAMPOO 120 ML BOTTLE TP SCH (09:00)
[2023-07-08 20:00] VITALS: TEMP 94
[2023-07-08] MEDS: FOLIC ACID 1 MG TABLET GT SCH (21:00)
[2023-07-08] MEDS: CHOLECALCIFEROL 1,000 UNIT TABLET GT SCH (21:00)
[2023-07-08] MEDS: MIRALAX 17 GM POWD.PACK GT SCH (21:00)
[2023-07-08] MEDS: THIAMINE HCL 100 MG TABLET GT SCH (21:00)
[2023-07-09 01:55] VITALS: TEMP 97.6
[2023-07-09] MEDS: IPRATROPIUM BROMIDE 0.5 MG/2.5 ML NEBU NEB SCH ×6 (03:34→23:12)
[2023-07-09] MEDS: ALBUTEROL SULFATE 2.5 MG/3 ML NEBU NEB SCH ×6 (03:34→23:12)
[2023-07-09] MEDS: BACLOFEN 20 MG TABLET GT SCH ×3 (05:48→22:16)
[2023-07-09] MEDS: MAGNESIUM OXIDE 400 MG TABLET GT SCH (05:48)
[2023-07-09] MEDS: MIDODRINE HCL 10 MG TABLET GT SCH ×3 (05:49→22:00)
[2023-07-09] MEDS: OMEPRAZOLE 20 MG CAPSULE.DR GT SCH (05:49)
[2023-07-09] MEDS: METOCLOPRAMIDE HCL 5 MG TABLET GT SCH ×3 (05:49→22:18)
[2023-07-09 06:23] VITALS: TEMP 98.5
[2023-07-09 07:48] VITALS: TEMP 97.6
[2023-07-09] MEDS: HYDROGEN PEROXIDE 3% 118 ML BOTTLE TP SCH ×2 (08:09→21:21)
[2023-07-09] MEDS: TRIAMCINOLONE ACET 0.1% CREAM 15 GM TUBE TP SCH ×2 (09:00→21:00)
[2023-07-09] MEDS: levETIRAcetam 500 MG/5 ML LIQUID UDC GT SCH ×2 (09:00→21:00)
[2023-07-09] MEDS: FERROUS SULFATE 330 MG/7.5 ML UDC- FOR SA ONLY GT SCH ×2 (09:00→21:00)
[2023-07-09] MEDS: NEOMY/BACITRA/POLYMYXIN B OINT UD PACKET TP SCH ×2 (09:00→21:00)
[2023-07-09] MEDS: PHENYTOIN 100 MG/4 ML UDC GT SCH ×2 (09:00→21:00)
[2023-07-09] MEDS: REMEDY ESSENTIAL ZINC PASTE 113 GM TP SCH ×2 (09:00→21:00)
[2023-07-09] MEDS: POTASSIUM CHLORIDE 40 MEQ/30 ML LIQUID UDC GT SCH (09:00)
[2023-07-09] MEDS: FUROSEMIDE 10 MG/ML GT SCH (09:00)
[2023-07-09] MEDS: ACIDOPHILUS/BULGARICUS CHEW TAB GT SCH ×2 (09:00→21:00)
[2023-07-09 20:00] VITALS: TEMP 97.5
[2023-07-09] MEDS: THIAMINE HCL 100 MG TABLET GT SCH (21:00)
[2023-07-09] MEDS: CHOLECALCIFEROL 1,000 UNIT TABLET GT SCH (21:00)
[2023-07-09] MEDS: FOLIC ACID 1 MG TABLET GT SCH (21:00)
[2023-07-10] MEDS: IPRATROPIUM BROMIDE 0.5 MG/2.5 ML NEBU NEB SCH ×6 (03:39→23:01)
[2023-07-10] MEDS: ALBUTEROL SULFATE 2.5 MG/3 ML NEBU NEB SCH ×6 (03:39→23:01)
[2023-07-10] MEDS: MIDODRINE HCL 10 MG TABLET GT SCH ×3 (05:08→21:37)
[2023-07-10] MEDS: MAGNESIUM OXIDE 400 MG TABLET GT SCH (05:08)
[2023-07-10] MEDS: OMEPRAZOLE 20 MG CAPSULE.DR GT SCH (05:08)
[2023-07-10] MEDS: BACLOFEN 20 MG TABLET GT SCH ×3 (05:08→21:37)
[2023-07-10] MEDS: METOCLOPRAMIDE HCL 5 MG TABLET GT SCH ×3 (05:09→21:37)
[2023-07-10] MEDS: HYDROGEN PEROXIDE 3% 118 ML BOTTLE TP SCH ×2 (07:23→19:09)
[2023-07-10 08:03] VITALS: TEMP 97.3
[2023-07-10] MEDS: FUROSEMIDE 10 MG/ML GT SCH (09:00)
[2023-07-10] MEDS: ACIDOPHILUS/BULGARICUS CHEW TAB GT SCH ×2 (09:00→21:37)
[2023-07-10] MEDS: levETIRAcetam 500 MG/5 ML LIQUID UDC GT SCH ×2 (09:00→21:37)
[2023-07-10] MEDS: TRIAMCINOLONE ACET 0.1% CREAM 15 GM TUBE TP SCH ×2 (09:00→21:37)
[2023-07-10] MEDS: NEOMY/BACITRA/POLYMYXIN B OINT UD PACKET TP SCH ×2 (09:00→21:37)
[2023-07-10] MEDS: FERROUS SULFATE 330 MG/7.5 ML UDC- FOR SA ONLY GT SCH ×2 (09:00→21:37)
[2023-07-10] MEDS: POTASSIUM CHLORIDE 40 MEQ/30 ML LIQUID UDC GT SCH (09:00)
[2023-07-10] MEDS: PHENYTOIN 100 MG/4 ML UDC GT SCH ×2 (09:00→21:37)
[2023-07-10] MEDS: REMEDY ESSENTIAL ZINC PASTE 113 GM TP SCH ×2 (09:00→21:37)
[2023-07-10] MEDS: VITAL AF 1.2 1,000 ML LIQUID GT PRN (14:44)
[2023-07-10 20:00] VITALS: TEMP 97.6
[2023-07-10] MEDS: FOLIC ACID 1 MG TABLET GT SCH (21:37)
[2023-07-10] MEDS: MIRALAX 17 GM POWD.PACK GT SCH (21:37)
[2023-07-10] MEDS: CHOLECALCIFEROL 1,000 UNIT TABLET GT SCH (21:37)
[2023-07-10] MEDS: THIAMINE HCL 100 MG TABLET GT SCH (21:37)
[2023-07-11 02:43] VITALS: TEMP 97.5; TEMP 97.6
[2023-07-11] MEDS: ALBUTEROL SULFATE 2.5 MG/3 ML NEBU NEB SCH ×6 (04:19→23:00)
[2023-07-11] MEDS: IPRATROPIUM BROMIDE 0.5 MG/2.5 ML NEBU NEB SCH ×6 (04:19→23:00)
[2023-07-11] MEDS: MAGNESIUM OXIDE 400 MG TABLET GT SCH (05:29)
[2023-07-11] MEDS: MIDODRINE HCL 10 MG TABLET GT SCH ×3 (05:29→22:00)
[2023-07-11] MEDS: BACLOFEN 20 MG TABLET GT SCH ×3 (05:29→22:25)
[2023-07-11] MEDS: METOCLOPRAMIDE HCL 5 MG TABLET GT SCH ×3 (05:30→22:24)
[2023-07-11] MEDS: OMEPRAZOLE 20 MG CAPSULE.DR GT SCH (05:30)
[2023-07-11] MEDS: HYDROGEN PEROXIDE 3% 118 ML BOTTLE TP SCH ×2 (08:28→19:15)
[2023-07-11] MEDS: PHENYTOIN 100 MG/4 ML UDC GT SCH ×2 (09:05→21:00)
[2023-07-11] MEDS: FERROUS SULFATE 330 MG/7.5 ML UDC- FOR SA ONLY GT SCH ×2 (09:08→21:00)
[2023-07-11] MEDS: FUROSEMIDE 10 MG/ML GT SCH (09:08)
[2023-07-11] MEDS: ACIDOPHILUS/BULGARICUS CHEW TAB GT SCH ×2 (09:08→21:00)
[2023-07-11] MEDS: levETIRAcetam 500 MG/5 ML LIQUID UDC GT SCH ×2 (09:10→21:00)
[2023-07-11] MEDS: POTASSIUM CHLORIDE 40 MEQ/30 ML LIQUID UDC GT SCH (09:11)
[2023-07-11] MEDS: TRIAMCINOLONE ACET 0.1% CREAM 15 GM TUBE TP SCH ×2 (09:13→21:00)
[2023-07-11] MEDS: REMEDY ESSENTIAL ZINC PASTE 113 GM TP SCH ×2 (09:14→21:00)
[2023-07-11] MEDS: KETOCONAZOLE 2% SHAMPOO 120 ML BOTTLE TP SCH (09:14)
[2023-07-11] MEDS: NEOMY/BACITRA/POLYMYXIN B OINT UD PACKET TP SCH ×2 (09:15→21:00)
[2023-07-11 12:11] VITALS: TEMP 97.4
[2023-07-11] MEDS: CHOLECALCIFEROL 1,000 UNIT TABLET GT SCH (21:00)
[2023-07-11] MEDS: FOLIC ACID 1 MG TABLET GT SCH (21:00)
[2023-07-11] MEDS: THIAMINE HCL 100 MG TABLET GT SCH (21:00)
[2023-07-11 22:00] VITALS: TEMP 92.3
[2023-07-12] MEDS: VITAL AF 1.2 1,000 ML LIQUID GT PRN (03:10)
[2023-07-12] MEDS: IPRATROPIUM BROMIDE 0.5 MG/2.5 ML NEBU NEB SCH ×6 (03:28→23:02)
[2023-07-12] MEDS: ALBUTEROL SULFATE 2.5 MG/3 ML NEBU NEB SCH ×6 (03:28→23:02)
[2023-07-12] MEDS: MIDODRINE HCL 10 MG TABLET GT SCH ×3 (05:28→22:23)
[2023-07-12] MEDS: BACLOFEN 20 MG TABLET GT SCH ×3 (05:28→22:23)
[2023-07-12] MEDS: MAGNESIUM OXIDE 400 MG TABLET GT SCH (05:28)
[2023-07-12] MEDS: OMEPRAZOLE 20 MG CAPSULE.DR GT SCH (05:28)
[2023-07-12] MEDS: METOCLOPRAMIDE HCL 5 MG TABLET GT SCH ×3 (05:28→22:23)
[2023-07-12] MEDS: HYDROGEN PEROXIDE 3% 118 ML BOTTLE TP SCH ×2 (07:14→19:12)
[2023-07-12 08:08] VITALS: TEMP 97.4
[2023-07-12] MEDS: PHENYTOIN 100 MG/4 ML UDC GT SCH ×2 (09:39→21:00)
[2023-07-12] MEDS: FERROUS SULFATE 330 MG/7.5 ML UDC- FOR SA ONLY GT SCH ×2 (09:40→21:00)
[2023-07-12] MEDS: ACIDOPHILUS/BULGARICUS CHEW TAB GT SCH ×2 (09:40→21:00)
[2023-07-12] MEDS: levETIRAcetam 500 MG/5 ML LIQUID UDC GT SCH ×2 (09:41→21:00)
[2023-07-12] MEDS: FUROSEMIDE 10 MG/ML GT SCH (09:41)
[2023-07-12] MEDS: POTASSIUM CHLORIDE 40 MEQ/30 ML LIQUID UDC GT SCH (09:42)
[2023-07-12] MEDS: TRIAMCINOLONE ACET 0.1% CREAM 15 GM TUBE TP SCH ×2 (09:42→21:00)
[2023-07-12] MEDS: NEOMY/BACITRA/POLYMYXIN B OINT UD PACKET TP SCH ×2 (09:43→21:00)
[2023-07-12] MEDS: REMEDY ESSENTIAL ZINC PASTE 113 GM TP SCH ×2 (09:43→21:00)
[2023-07-12] MEDS: CHOLECALCIFEROL 1,000 UNIT TABLET GT SCH (21:00)
[2023-07-12] MEDS: THIAMINE HCL 100 MG TABLET GT SCH (21:00)
[2023-07-12] MEDS: FOLIC ACID 1 MG TABLET GT SCH (21:00)
[2023-07-12 22:45] VITALS: TEMP 96.4
[2023-07-13] MEDS: IPRATROPIUM BROMIDE 0.5 MG/2.5 ML NEBU NEB SCH ×6 (03:01→23:33)
[2023-07-13] MEDS: ALBUTEROL SULFATE 2.5 MG/3 ML NEBU NEB SCH ×6 (03:01→23:33)
[2023-07-13] MEDS: MIDODRINE HCL 10 MG TABLET GT SCH ×3 (06:00→21:32)
[2023-07-13] MEDS: MAGNESIUM OXIDE 400 MG TABLET GT SCH (06:50)
[2023-07-13] MEDS: BACLOFEN 20 MG TABLET GT SCH ×3 (06:50→21:31)
[2023-07-13] MEDS: METOCLOPRAMIDE HCL 5 MG TABLET GT SCH ×3 (06:52→21:32)
[2023-07-13] MEDS: OMEPRAZOLE 20 MG CAPSULE.DR GT SCH (06:52)
[2023-07-13] MEDS: HYDROGEN PEROXIDE 3% 118 ML BOTTLE TP SCH ×2 (07:29→19:11)
[2023-07-13 07:56] VITALS: TEMP 98.3
[2023-07-13] MEDS: FERROUS SULFATE 330 MG/7.5 ML UDC- FOR SA ONLY GT SCH ×2 (08:43→21:25)
[2023-07-13] MEDS: PHENYTOIN 100 MG/4 ML UDC GT SCH ×2 (08:43→21:46)
[2023-07-13] MEDS: ACIDOPHILUS/BULGARICUS CHEW TAB GT SCH ×2 (08:44→21:27)
[2023-07-13] MEDS: FUROSEMIDE 10 MG/ML GT SCH (08:44)
[2023-07-13] MEDS: POTASSIUM CHLORIDE 40 MEQ/30 ML LIQUID UDC GT SCH (08:45)
[2023-07-13] MEDS: REMEDY ESSENTIAL ZINC PASTE 113 GM TP SCH ×2 (08:45→21:31)
[2023-07-13] MEDS: levETIRAcetam 500 MG/5 ML LIQUID UDC GT SCH ×2 (08:45→21:46)
[2023-07-13] MEDS: TRIAMCINOLONE ACET 0.1% CREAM 15 GM TUBE TP SCH ×2 (08:45→21:30)
[2023-07-13] MEDS: NEOMY/BACITRA/POLYMYXIN B OINT UD PACKET TP SCH ×2 (08:46→21:31)
[2023-07-13] MEDS: VITAL AF 1.2 1,000 ML LIQUID GT PRN (16:28)
[2023-07-13 20:00] VITALS: TEMP 97.9
[2023-07-13] MEDS: THIAMINE HCL 100 MG TABLET GT SCH (21:28)
[2023-07-13] MEDS: CHOLECALCIFEROL 1,000 UNIT TABLET GT SCH (21:28)
[2023-07-13] MEDS: MIRALAX 17 GM POWD.PACK GT SCH (21:28)
[2023-07-13] MEDS: FOLIC ACID 1 MG TABLET GT SCH (21:29)
[2023-07-14] MEDS: ALBUTEROL SULFATE 2.5 MG/3 ML NEBU NEB SCH (03:46)
[2023-07-14] MEDS: IPRATROPIUM BROMIDE 0.5 MG/2.5 ML NEBU NEB SCH (03:46)
[2023-07-14 06:00] VITALS: BP 145/87
[2023-07-14] MEDS: MIDODRINE HCL 10 MG TABLET GT SCH (06:00)
[2023-07-14] MEDS: OMEPRAZOLE 20 MG CAPSULE.DR GT SCH (06:18)
[2023-07-14] MEDS: METOCLOPRAMIDE HCL 5 MG TABLET GT SCH (06:18)
[2023-07-14] MEDS: BACLOFEN 20 MG TABLET GT SCH (06:18)
[2023-07-14] MEDS: MAGNESIUM OXIDE 400 MG TABLET GT SCH (06:18)
== END 2023-07-12 23:59 | disposition still patient (30) | DRG 130 ==
LOC: SA → UNDOADMIN 07-15 07:01 → SA 07-15 07:01 → SA1 02-05 21:55 → SA 02-08 19:35
PROVIDERS: ADMIT Internal Medicine Pulmonary Disease; ATTEND Internal Medicine Pulmonary Disease
PROC: 5A1955Z Respiratory Ventilation, Greater than 96 Consecutive Hours (ICD-10-PCS; principal; 2022-07-13)
DX: J96.11 Chronic respiratory failure with hypoxia (principal); G82.50 Quadriplegia, unspecified; G93.40 Encephalopathy, unspecified; E23.2 Diabetes insipidus; E43 Unspecified severe protein-calorie malnutrition; D68.59 Other primary thrombophilia; G91.9 Hydrocephalus, unspecified; D64.9 Anemia, unspecified; E87.6 Hypokalemia; G40.909 Epilepsy, unspecified, not intractable, without status epilepticus; I44.0 Atrioventricular block, first degree; J98.11 Atelectasis; K76.0 Fatty (change of) liver, not elsewhere classified; L21.0 Seborrhea capitis; L21.9 Seborrheic dermatitis, unspecified; L30.4 Erythema intertrigo; M19.90 Unspecified osteoarthritis, unspecified site; N39.0 Urinary tract infection, site not specified; R13.10 Dysphagia, unspecified; Z74.01 Bed confinement status; Z93.0 Tracheostomy status; Z93.1 Gastrostomy status; Z99.11 Dependence on respirator [ventilator] status
CPT/HCPCS: 36415; 71045; 73501; 83605; 83735; 84100; 84443; 84520; 85025; 86140; 86580; 87040; 90686; 93005; 94003; 94640; 94664; A4663; A6209; A6213; C1758; J0692; J1580; J2185; J3370; J3590; J7040; J7050; J8597; U0003

== ENCOUNTER 2023-05-28 15:52 | Emergency (ER) | payer MEDICAID ==
[~2023-05-28] VITALS: Ht 162.6 cm; Wt 70.3 kg
[2023-05-28 16:20] LABS: ABG BASE EXCESS -4.7 mmol/L; ABG HCO3 19.1 mmol/L; ABG PCO2 30.5 mmHg (35.0-45.0); ABG PH 7.414 (7.350-7.450); ABG PO2 142.8 mmHg (75.0-100.0); ABG SITE LEFT RADIAL; ABG TOTAL HEMOGLOBIN 9.4 G/dL (12.0-16.0); COHb 0.5 % (0.5-1.5); MetHb 0.3 % (0.0-1.5); O2Hb 98.1 % (94.0-97.0); VENT MODE VENT - SIMV; VT, ABG 500 mL
[2023-05-28 16:20] LABS: BASOPHILS % (AUTO) 0.6 % (0.0-2.0); EOSINOPHILS # (AUTO) 0.1 K/uL (0.0-0.7); EOSINOPHILS % (AUTO) 3.9 % (0.0-7.0); HEMATOCRIT 25.9 % (31.2-41.9); HEMOGLOBIN 8.3 g/dL (10.9-14.3); LYMPHOCYTES # (AUTO) 1.1 K/uL (0.8-4.8); LYMPHOCYTES % (AUTO) 37.8 % (20.5-51.5); MEAN CORPUSCULAR HEMOGLOBIN 27.6 uug (24.7-32.8); MEAN CORPUSCULAR HGB CONC 32 g/dL (32.3-35.6); MEAN CORPUSCULAR VOLUME 85.6 fL (75.5-95.3); MONOCYTES # (AUTO) 0.2 K/uL (0.1-1.30); MONOCYTES % (AUTO) 5.6 % (0.0-11.0); NEUTROPHILS # (AUTO) 1.5 K/uL (1.8-8.9); NEUTROPHILS % (AUTO) 52.1 % (38.5-71.5); PLATELET COUNT (AUTO) 127 K/uL (179-408); RED BLOOD CELL COUNT(AUTO) 3.03 MIL/uL (3.63-4.92); RED CELL DISTRIBUTION WIDTH 20.3 % (12.3-17.7); WHITE BLOOD COUNT (AUTO) 2.8 K/uL (3.8-11.8)
[2023-05-28 16:39] LABS: DIFFERENTIAL COMMENT 1
[2023-05-28 16:53] LABS: CALCIUM 8.7 mg/dL (8.5-10.1); CARBON DIOXIDE 21 mmol/L (21-32); CHLORIDE 106 mmol/L (98-107); CREATININE 0.4 mg/dL (0.6-1.3); GLUCOSE 103 mg/dL (74-106); POTASSIUM 3.8 mmol/L (3.5-5.1); SODIUM SERUM 136 mmol/L (136-145); UREA NITROGEN, BLOOD 16 mg/dL (7-18)
[2023-05-28 17:07] LABS: ALANINE AMINOTRANSFERASE 109 U/L (14-59); ALBUMIN 2.1 g/dL (3.4-5.0); ALKALINE PHOSPHATASE 286 U/L (50-136); ASPARTATE AMINOTRANSFERASE 51 U/L (15-37); BILIRUBIN,DIRECT 0.1 mg/dL (0.0-0.2); BILIRUBIN,TOTAL 0.2 mg/dL (0.2-1.0); NT-PRO BNP 133 pg/mL (0-125); TOTAL PROTEIN, SERUM 7.4 g/dL (6.4-8.2)
[2023-05-28 19:03] VITALS: BP 96/68; TEMP 98; O2SAT 99
[2023-05-28 22:25] LABS: ANISOCYTOSIS 2+; EOSINOPHILS % (MANUAL) 3 % (0-8); LYMPHOCYTES % (MANUAL) 37 % (20-40); MONOCYTES % (MANUAL) 6 % (2-10); NEUTROPHILS % (MANUAL) 54 % (42-75); PLATELET ESTIMATE MODERATELY DECREASED
== END 2023-05-28 19:06 ==
LOC: ER 15:54
DX: R00.1 Bradycardia, unspecified (principal); E23.2 Diabetes insipidus; Z79.899 Other long term (current) drug therapy
CPT/HCPCS: 36415; 36600; 70030-TC; 84484; 85025; 93005; A4606; A4663